=== PATIENT | male | born 1950 | race Caucasian/White ===

== ENCOUNTER 2017-10-19 13:23 | Emergency (ER) | payer OTHER, SELFPAY ==
[2017-10-19 13:24] VITALS: BP 135/58; PULSE 69; RESP 16; TEMP 37.1; O2SAT 96; BMI 29.3
--- NOTE | 2017-10-19 14:52 | RAD_ITS ---
STUDY: X-RAY RIGHT FOOT, GREAT TOE REASON FOR EXAM: Male, 67 years old. Pain and swelling following injury. TECHNIQUE: 3 view(s) of the toe were obtained. COMPARISON: None. FINDINGS: Normal visualized metatarsus. Normal metatarsophalangeal (M.T.P) joint. There is arthrosis of the interphalangeal joint. Normal phalanges and interphalangeal joints. There is diffuse soft tissue swelling of the toe. RAD/Toe(s) Min 2 Views IMPRESSION: Soft tissue swelling. Degenerative changes. Electronically Signed: Bharath Steen MD at 15:13 EDT Tel [phone], Service support ,
--- NOTE | 2017-10-19 15:20 | ED.VISSUMM ---
- ER Visit Summary Date of Service: 10/19/17 Chief Complaint: Toe pain History of Present Illness: The patient is a 67 M presents after a fall with the right great toe injury. No other injury. Physical Examination: She is he has a right toe contusion with full range of motion and neurovascularly intact Test Results: X-rays negative for fracture Emergency Department Course and Treatment: We will discharge in stable condition with reassurance Impression: toe contusion This note was generated with [employer] dictation software. It may contain incorrect words, spelling, and punctuation that were not noted in review of the chart prior to signing ED Disposition - Plan for ED Patient: Chief Complaint: Fall Referrals: Zena Barr MD [Primary Care Provider] -
--- NOTE | 2017-10-19 15:27 | ED.DCSUM_ITS ---
- ER Visit Summary Date of Service: 10/19/17 Chief Complaint: Toe pain History of Present Illness: The patient is a 67 M presents after a fall with the right great toe injury. No other injury. Physical Examination: She is he has a right toe contusion with full range of motion and neurovascularly intact Test Results: X-rays negative for fracture Emergency Department Course and Treatment: We will discharge in stable condition with reassurance Impression: toe contusion This note was generated with [employer] dictation software. It may contain incorrect words, spelling, and punctuation that were not noted in review of the chart prior to signing ED Disposition - Plan for ED Patient: Chief Complaint: Fall Referrals: eZna Barr MD [Primary Care Provider] -
--- NOTE | 2017-10-19 15:28 | ED.DEP ---
ED Disposition - Plan for ED Patient: Disposition: Home or Assisted Living Chief Complaint: Fall Instructions: ED Mechanical Fall Referrals: Zena Barr MD [Primary Care Provider] - 3-5 Days
[2017-10-19 15:44] VITALS: BP 157/83; PULSE 63; RESP 17
== END 2017-10-19 15:44 | disposition home or self-care (01) ==
PROVIDERS: Emergency Provider Emergency Medicine; Family Provider Family Medicine; PCP Internal Medicine
DX: S90.111A Contusion of right great toe without damage to nail, initial encounter (principal); W19.XXXA Unspecified fall, initial encounter; Y93.9 Activity, unspecified; Y92.89 Other specified places as the place of occurrence of the external cause; Y99.9 Unspecified external cause status; E11.9 Type 2 diabetes mellitus without complications
CPT/HCPCS: 73660; 99283

== ENCOUNTER 2018-03-13 19:09 | Emergency (ER) | payer OTHER, SELFPAY ==
[2018-03-13 19:11] VITALS: BP 195/75; PULSE 92; RESP 16; TEMP 36.5; O2SAT 94; BMI 28.7
--- NOTE | 2018-03-13 19:26 | RAD_ITS ---
STUDY: X-RAY - LEFT SHOULDER REASON FOR EXAM: Male, 68 years old. PATIENT WAS STANDING ON A RECLINER AND IT RECLINED AND HE FELL OFF ONTO HIS LEFT SHOULDER. PAIN IN LEFT SHOULDER RADIATING DOWN INTO LEFT HUMERUS. TECHNIQUE: 3 view(s) of the shoulder. COMPARISON: None. FINDINGS: There is minor degenerative arthrosis of the glenohumeral articulation. There is hypertrophic osteoarthrosis of the acromioclavicular joint with inferior osseous spur formation. Normal acromion. Normal humeral head and visualized proximal humerus. The soft tissue structures are unremarkable. Normal visualized pulmonary apex. RAD/Shoulder min 2 Views IMPRESSION: 1. No fracture or malalignment. Degenerative changes. Electronically Signed: Fili Grove MD at 20:03 EST , Service support ,
--- NOTE | 2018-03-13 19:27 | ED.VISSUMM ---
- ER Visit Summary Date of Service: 03/13/18 Chief Complaint: [] Left upper arm injury after falling History of Present Illness: The patient is a 68 M [] patient inadvertently fell when he was trying to look at something that was on the ceiling he landed on his left shoulder he has no head neck chest or abdominal pain just pain to left shoulder and left mid humerus Physical Examination: [] Vital signs are within normal range she is in no distress he points directly to the left shoulder area head neck unremarkable the chest abdomen unremarkable lungs clear heart tones normal the extremities are completely unremarkable full range of motion except for the left shoulder, he has a vague diffuse discomfort left shoulder no instability no deformity is able to move it he also complains of some vague pain to the mid left humerus, he has no elbow forearm left wrist or left hand pain, left hand function is completely normal his neurologic exam is normal the rest of his exam is normal his back is unremarkable Test Results: [] Emergency Department Course and Treatment: [] X-rays are obtained that are unremarkable per radiology, discussed the patient is fitted with a sling ice elevation he will follow with his orthopedic surgeon has we discussed the concept of occult injury such as rotator cuff and return for change in symptoms he does not wish to have anything for pain while he is in the ED Treatment Plan: [] Disposition: [] Home stable Impression: [] Left shoulder injury after fall This note was generated with [employer] dictation software. It may contain incorrect words, spelling, and punctuation that were not noted in review of the chart prior to signing ED Disposition - Plan for ED Patient: Chief Complaint: Upper Extremity Injury Referrals: Zena Barr MD [Primary Care Provider] -
--- NOTE | 2018-03-13 19:40 | RAD_ITS ---
STUDY: X-RAY - LEFT HUMERUS REASON FOR EXAM: Male, 68 years old. PATIENT WAS STANDING ON A RECLINER AND IT RECLINED AND HE FELL OFF ONTO HIS LEFT SHOULDER. PAIN IN LEFT SHOULDER RADIATING DOWN INTO LEFT HUMERUS. TECHNIQUE: 3 view(s) of the humerus. COMPARISON: None. FINDINGS: Normal visualized humerus. There is no demonstrated fracture or osseous destructive process. Ossified density along the lateral margin of the humeral condyle is compatible with old avulsion injury. There is no demonstrated soft tissue abnormality. RAD/Humerus min 2 Views IMPRESSION: Electronically Signed: Fili Grove MD at 20:04 EST , Service support ,
--- NOTE | 2018-03-13 20:15 | ED.DEP ---
ED Disposition - Plan for ED Patient: Chief Complaint: Upper Extremity Injury Instructions: ED Torn Rotator Cuff Referrals: Zena Barr MD [Primary Care Provider] -
[2018-03-13 20:33] VITALS: PULSE 88; RESP 15; O2SAT 93
== END 2018-03-13 20:36 | disposition home or self-care (01) ==
PROVIDERS: Emergency Provider Emergency Medicine; Family Provider Internal Medicine; PCP Internal Medicine
DX: S49.92XA Unspecified injury of left shoulder and upper arm, initial encounter (principal); W19.XXXA Unspecified fall, initial encounter; Y93.9 Activity, unspecified; Y92.9 Unspecified place or not applicable; Y99.9 Unspecified external cause status; I10 Essential (primary) hypertension
CPT/HCPCS: 73030; 73060; 99282

== ENCOUNTER → 2018-08-30 15:59 | Outpatient (CLI) | payer OTHER, SELFPAY ==
[2018-08-30 17:20] LABS: PSA,Total - Annual Screen 5.42 ng/mL (0.00-4.00)
== END ==
PROVIDERS: Family Provider Internal Medicine; PCP Internal Medicine; Referring Provider Nurse Practitioner Adult Health; Visit Provider Nurse Practitioner Adult Health
DX: N40.2 Nodular prostate without lower urinary tract symptoms (principal)
CPT/HCPCS: 36415; 84153; G0103

== ENCOUNTER → 2018-10-11 15:57 | Outpatient (CLI) | payer OTHER, SELFPAY ==
--- NOTE | 2018-10-11 | IMM_PTH ---
PATIENT: SINDY GREENFIELD LOC: [facility] U#:[id number] AGE/SX: 74/M ROOM: RE10/11/[address]: Dr. Heladio Archibald MD : 1950 BED: DIS: SPEC #: [id number] RECD: 10/13/18 11:24 STATUS: TAMI REEddie #: [id number] BEAU: 10/11/18 00:[address]: Heladio Archibald DEPT: IMMUNOHISTOCHEMISTRY RECD BY: Rosalba Solano ENTERED: 10/13/18 11:25 SP TYPE: IMMUNO OTHR DR: Dr. Zena Barr MD Tissues: B - PROSTATE RIGHT C - PROSTATE RIGHT D - PROSTATE LEFT Procedures: 34BE12 (add) P40 (add) 34BE12 (initial) PHYSICIAN & INSTITUTION [place] [id number] SPECIMEN INFORMATION: Tissue Source: B - Right mid, C - Right base, D - Left apex Clinical Info: Elevated PSA Specimen Number: [id number] B, C & D CPT code: 17210, 63719 x5 METHODOLOGY: Deparaffinized sections of prefer/formalin-fixed tissue or PAP/DQ stained slides are incubated with monoclonal/polyclonal antibodies/oligonucleotide probes. Localization is made via biotin free immunoperoxidase method. Appropriate controls are performed and reacted as expected. Results on target cell population are indicated in the following table: RESULTS: ANTIBODY / CLONE RESULT Block B P40 (BC28) negative 34BE12 (34BE12) negative Block C P40 (BC28) positive 34BE12 (34BE12) positive Block D P40 (BC28) positive 34BE12 (34BE12) positive These tests were developed and their performance characteristics determined by [facility]. They may not have been cleared or approved by the U.S. Food and Drug Administration. The FDA has determined that such clearance or approval is not necessary. INTERPRETATION: B. Right prostate, mid, core biopsy: Adenocarcinoma. C. Right prostate, base, core biopsy: Focal high-grade prostatic intraepithelial neoplasia (HGPIN). D. Left prostate, apex, core biopsy: Negative for adenocarcinoma. SJ:frederick 10/14/18
--- NOTE | 2018-10-11 08:00 | PROSBIL_PTH ---
PATIENT: SINDY GREENFIELD LOC: [facility] U#:[id number] AGE/SX: 74/M ROOM: RE10/11/[address]: Dr. Heladio Archibald MD : 1950 BED: DIS: SPEC #: [id number] RECD: 10/11/18 15:27 STATUS: TAMI OLI #: [id number] BEAU: 10/11/18 08:[address]: Heladio Archibald DEPT: SURGICAL PATHOLOGY RECD BY: Ben Colunga ENTERED: 10/12/18 14:31 SP TYPE: PROST BX VIOLETTE DR: Dr. Zena Barr MD Tissues: A - PROSTATE RIGHT B - PROSTATE RIGHT C - PROSTATE RIGHT D - PROSTATE LEFT E - PROSTATE LEFT F - PROSTATE LEFT Procedures: PROSTATE BX HEADER OPERATION: Prostate biopsy PRE-OP DIAGNOSIS: Elevated PSA TISSUE SUBMITTED: A - Right apex, B - Right mid, C - Right base, D - Left apex, E - Left mid, F - Left base MICROSCOPIC DIAGNOSIS A. Right prostate, apex, core biopsy: Prostatic tissue, negative for malignancy. Chronic inflammation. B. Right prostate, mid, core biopsy: Prostatic adenocarcinoma: Erica grade: 3+4=7 Number of cores involved: 1/2 Proportion of tissue involved: ~15% Perineural invasion: Not identified. Greatest tumor length: 0.4 cm Focal high-grade prostatic intraepithelial neoplasia (HGPIN). See comment. C. Right prostate, base, core biopsy: Focal high-grade prostatic intraepithelial neoplasia (HGPIN). Chronic inflammation. See comment. D. Left prostate, apex, core biopsy: Prostatic tissue, negative for malignancy. Chronic inflammation. See comment. E. Left prostate, mid, core biopsy: Focal high-grade prostatic intraepithelial neoplasia (HGPIN). Chronic inflammation. F. Left prostate, base, core biopsy: Focal high-grade prostatic intraepithelial neoplasia (HGPIN). Focal acute and chronic inflammation. SJ:frederick 10/13/18 COMMENT B, C & D - Immunohistochemistry ([id number]) supports the above diagnosis. Case has been reviewed in consultation with Dr. Liz who concurs with the above diagnosis. IDC:AM MICROSCOPIC DESCRIPTION Slides are reviewed. GROSS DESCRIPTION A - Received is one container designated prostate, right apex. The specimen consists of two elongated fragments of light puga-white soft tissue each measuring 1.5 cm in length and 0.1 cm in diameter. The specimen is totally submitted in one cassette. B - Received is one container designated prostate, right mid. The specimen consists of two elongated fragments of light pgua-white soft tissue each measuring 1.5 cm in length and 0.1 cm in diameter. The specimen is totally submitted in one cassette. C - Received is one container designated prostate, right base. The specimen consists of two elongated fragments of light puga-white soft tissue measuring 1 and 1.5 cm in length and 0.1 cm in diameter. The specimen is totally submitted in one cassette. D - Received is one container designated prostate, left apex. The specimen consists of two elongated fragments of light puga-white soft tissue each measuring 1.4 cm in length and 0.1 cm in diameter. The specimen is totally submitted in one cassette. E - Received is one container designated prostate, left mid. The specimen consists of two elongated fragments of light puga-white soft tissue measuring 1.5 and 2 cm in length and 0.1 cm in diameter. The specimen is totally submitted in one cassette. F - Received is one container designated prostate, left base. The specimen consists of two elongated fragments of light puga-white soft tissue each measuring 1.5 cm in length and 0.1 cm in diameter. The specimen is totally submitted in one cassette. / SJ:rg 10/12/18 TC:[address] [facility]: [id number]
== END ==
PROVIDERS: Family Provider Internal Medicine; PCP Internal Medicine; Referring Provider Urology; Visit Provider Urology
DX: R97.20 Elevated prostate specific antigen [PSA] (principal)
CPT/HCPCS: 88305; 88341; 88342; G0416

== ENCOUNTER 2018-11-30 05:50 | Day surgery (SDC) | payer OTHER, SELFPAY ==
[2018-11-22 11:21] VITALS: BP 145/62; PULSE 75; RESP 16; TEMP 36.1; O2SAT 96; BMI 29.0
--- NOTE | 2018-11-22 11:25 | SDCEKG_ITS ---
Test Reason : Blood Pressure : / mmHG Vent. Rate : 067 BPM Atrial Rate : 067 BPM P-R Int : 208 ms QRS Dur : 098 ms QT Int : 370 ms P-R-T Axes : 053 033 039 degrees QTc Int : 390 ms Normal sinus rhythm Normal ECG Confirmed by LINDA SOLER, SHABANA ([id number]), social media editor MARISOL SOTOMAYOR ([id number]) on 11/28/2018 11:48:05 AM Referred By: Heladio Archibald Confirmed By:SHABANA MCKEON MD
--- NOTE | 2018-11-22 11:40 | RAD_ITS ---
STUDY: X-RAY CHEST REASON FOR EXAM: Male, 68 years old. Preoperative evaluation for prostatectomy. TECHNIQUE: Frontal and lateral views of the chest. COMPARISON: None. FINDINGS: Mild hyperexpansion. There is no demonstrated pleural abnormality. Borderline cardiomegaly. Normal mediastinum and joseph. Normal visualized pulmonary arteries. Normal visualized aortic arch and descending thoracic aorta. Thoracolumbar spondylosis. Normal visualized ribs, clavicles, and shoulders. There is no demonstrated abnormality of the visualized soft tissue structures of the upper abdomen. RAD/Chest PA and Lateral IMPRESSION: No active or acute cardiopulmonary disease. Electronically Signed: Jorge Cantu MD at 12:20 EDT , Service support ,
[2018-11-22 12:02] LABS: Hematocrit 40.1 % (40-54); Hemoglobin 13.5 g/dL (13.0-16.5); Mean Corp Hgb Conc 33.7 g/dL (32-36); Mean Corpuscular Hgb 29.9 pg (27.0-32.0); Mean Corpuscular Volume 88.9 fL (80-94); Mean Platelet Vol. 10.6 fl (6.2-12.0); Platelet Count 225 K/mm3 (150-450); RBC Distribution Width CV 13.2 % (11.6-14.6); RBC Distribution Width SD 42.6 fl (35.1-43.9); Red Blood Count 4.51 M/mm3 (4.6-6.2)
[2018-11-22 12:23] LABS: Anion Gap 6 (5-15); BUN 31 mg/dL (7-18); BUN/Creat Ratio 21.4 RATIO (10-20); Calcium,Total 9.4 mg/dL (8.5-10.1); Chloride 108 mmol/L (98-107); Creatinine, Serum 1.45 mg/dL (0.70-1.30); EST Glomerular Filtration Rate 51 mL/min (>60); Est Glom Filt Rate - Afr Amer 62 mL/min (>60); Estimated Creatinine Clearance 48.08 ml/min; Glucose 189 mg/dL (74-106); Hemoglobin A1c 8.3 % (4.2-6.3); Potassium 4.4 mmol/L (3.5-5.1); Sodium Level 141 mmol/L (136-145); Thyroid Stim Hormone (TSH) 3.38 uIU/mL (0.358-3.74)
[2018-11-30] VITALS (12 sets, daily range): BP systolic 124–173; BP diastolic 64–86; PULSE 61–95; RESP 16–18; TEMP 36.1–37.1; O2SAT 94–98; BMI 27.5
[2018-11-30] MEDS: Lactated Ringers 1,000 ML 100 ML IV ×2 (06:38→06:40)
[2018-11-30 06:51] LABS: Bedside Glucose 185 mg/dL (70-110)
[2018-11-30] MEDS: Bupivacaine Mpf 0.5% 30 ML VIAL ×2 (07:08→10:30)
[2018-11-30] MEDS: Cefazolin 2 GM in 0.9% Normal Saline 100 ML IV (07:25)
--- NOTE | 2018-11-30 07:30 | PROST_PTH ---
PATIENT: SINDY GREENFIELD LOC: [facility] [place] U#:[id number] AGE/SX: 68/M ROOM: RE11/30/[address]: Dr. Heladio Archibald MD : 1950 BED: DIS: 12/01/2018 SPEC #: [id number] RECD: 11/30/18 11:26 STATUS: TAMI REQ #: [id number] BEAU: 11/30/18 07:[address]: Heladio Archibald DEPT: SURGICAL PATHOLOGY RECD BY: Angelica Gonzalez ENTERED: 11/30/18 14:04 SP TYPE: PROSTATE OTHR DR: Dr. Zena Barr MD Tissues: A - Prostate, NOS B - Adipose tissue Procedures: Surgery Specimen Level III Surgery Specimen Level HEADER OPERATION: Laparoscopic robotic radical prostatectomy PRE-OP DIAGNOSIS: Malignant neoplasm of the prostate, elevated prostate specific antigen TISSUE SUBMITTED: A. Prostate, B. Fat over prostate MICROSCOPIC DIAGNOSIS Prostate, radical prostatectomy: Prostatic adenocarcinoma. See cancer summary below. PROSTATE CANCER (RADICAL) SUMMARY: Procedure - radical prostatectomy Prostate size - 5 cm transversely, 4 cm craniocaudally and 3.3 cm anteroposteriorly Prostate weight - 40 gm Lymph node sampling - no lymph nodes present Histologic type - adenocarcinoma (not otherwise specified) Histologic grade ([place] Pattern): Primary pattern - 3 Secondary pattern - 3 Tertiary pattern - not identified Total [place] score: 6 Tumor Quantitation: Proportion (%) of prostate involved by tumor - less than 5% Tumor size - Extraprostatic extension - not identified Seminal vesicle invasion - not identified Margins - uninvolved by invasive carcinoma Treatment effect on carcinoma - no known presurgical therapy Lymph-Vascular invasion - not identified Perineural invasion - present, focal Regional lymph nodes - no nodes submitted or found Distant metastasis - not applicable Additional pathologic findings - benign prostatic hyperplasia, glandular stromal type. - Focal high-grade prostatic intraepithelial neoplasia (HGPIN) - Moderate chronic inflammation. PATHOLOGIC STAGE: pT2c pNX MX The above summary is in compliance with [employer] (CAP) Cancer Protocols Checklist and [place] [employer] Committee on Cancer (AJCC), Staging Manual, 8th Ed. B. Fat-over prostate: A piece of mature adipose tissue, negative for carcinoma. SJ:bharti 12/02/18 COMMENT The tumor involves both right and left lobes of the prostate. The tumor in the right lobe present involves apical and mid portion of the prostate (present in the slides # 5, 6, 8) measures approximately 1 x 1 x 0.5 cm. Tumor in the left lobe present in the apical to mid portion of the prostate (present in the slide # 7)and approximately measures 0.5 x 0.3 x 0.3 cm. Please make reference to previous specimen [id number] right prostate, mid, core biopsy diagnosis of prostatic adenocarcinoma; right prostate base, core biopsy, left prostate, mid, core biopsy and left prostate, base, core biopsy with diagnoses of focal high-grade prostatic intraepithelial neoplasia. Case has been reviewed in consultation with Dr. Liz who concurs with the above diagnosis. IDC:AM MICROSCOPIC DESCRIPTION Slides are reviewed. GROSS DESCRIPTION A. Received in fixative is one container labeled with the patient's name and designated prostate. The specimen consists of a prostatectomy including right and left seminal vesicles and vas deferens. The specimen weighs 40 grams. The prostate gland itself measures 5 cm transversely, 4 cm craniocaudally and 3.3 cm anterior posteriorly. No gross nodules are identified on palpation. The specimen is differentially inked as follows: anterior - red, right half - blue, left half - green. The entire posterior surface is inked in black ink. The right apex. specimen consists of two elongated fragments of light puga-white soft tissue each measuring 3-5 mm intervals. Serially sections do not reveal mass lesions or rubbery nodularities. [employer] sections are submitted in 20 cassettes as follows: 1 - apex, shaved margin; 2 - bladder shaved margin (proximal ureteral margin); 3 - bilateral seminal vesicles; 4-7 - apex; 8-13 - mid portion of prostate gland; 14-20 - basal portion of gland with #20 representing the most basal portion of the gland. /AM:sp 12/01/18 B. Received in fixative is one container labeled with the patient's name and designated fat over prostate. The specimen consists of a piece of yellow adipose tissue measuring 4 x 3 x 0.5 cm. No mass lesion was identified. The entire specimen is submitted in 2 cassettes. The specimen will be submitted after overnight fixation. SJ:bharti 11/30/18 TC: 0 CPT: 36177, 25749
--- NOTE | 2018-11-30 07:43 | PCM.DC.URO ---
Discharge Diet: Light diet - advance as tolerated Discharge Activity: May not drive while taking narcotic pain medications., May Shower Lifting Restrictions: No Lifting. Call your doctor if your incision/area has: Continuous Slow Oozing, Sudden Increased Bleeding, Increased Pain/ Swelling, Increased Redness, Foul Smelling Discharge, Swelling at the incision site Call your doctor if you observe: Fever of 101 or Higher, Inability to have a bowel movement, Uncontrolled pain Suture Line Care: Avoid Pulling/Pushing, Avoid Pinching/Bending Instructions: Radical Prostatectomy Allergies/Adverse Reactions: Allergies Oyojisp-Ijw-Elb Reductase Inhibitor Adverse Reaction (Verified 11/30/18 06:17) Abd cramps/diarrhea Medications to take at Discharge Levothyroxine [Synthroid] 100 mcg PO DAILY 01/08/13 Multivit-Min/FA/Lycopene/Lut [Centrum Silver Tablet] 1 each PO DAILY 01/08/13 metFORMIN (XR) [Glucophage Xr] 1,000 mg PO DAILY 01/08/13 Vits A,C,E/Lutein/Minerals [Ocuvite with Lutein Tablet] 1 each PO DAILY 03/08/14 Bisoprolol/Hydrochlorothiazide [Bisoprolol-Hctz 2.5-6.25 mg Tb] 1 each PO DAILY 05/24/15 [place]-3/Dha/Epa/Fish Oil [Fish Oil Dr 500 mg Softgel] 1,000 mg PO DAILY 05/24/15 Potassium Citrate [Urocit-K] 10 meq PO DAILY 05/24/15 Aspirin [Lo-Dose Aspirin EC] 81 mg PO DAILY 10/19/17 Fenofibrate Nanocrystallized [Fenofibrate] 145 mg PO DAILY 10/19/17 Ciprofloxacin [Cipro] 500 mg PO BID #20 tab 11/30/18 Docusate Sodium [Colace] 100 mg PO BID #20 cap 11/30/18 Hydrocodone/Acetaminophen [[place] 5-325 Tablet] 1 ea PO Q4H PRN PRN 5 Days #14 tab 11/30/18 The following prescriptions were given: Ciprofloxacin [Cipro] 500 mg PO BID #20 tab Prescription Printed Docusate Sodium [Colace] 100 mg PO BID #20 cap Prescription Printed Hydrocodone/Acetaminophen [[place] 5-325 Tablet] 1 ea PO Q4H PRN PRN 5 Days #14 tab PRN Reason: Pain Prescription Printed Primary Care Physician: Zena Barr MD [Primary Care Provider] - Test Results: Test results from this visit will be discussed in further detail at your follow-up appointment, if applicable. Please Follow Up With: Heladio Archibald MD When: please call to make an appointment. Proposed Discharge Date: 12/01/18
--- NOTE | 2018-11-30 10:50 | PCM.OPRPT ---
Report of Operation Date of Procedure: 11/30/18 Pre-Operative Diagnosis: Prostate cancer Post-Operative Diagnosis: The same Surgery/Procedure Performed:: Laparoscopic robotic assisted radical prostatectomy with bilateral nerve sparing, suture suspension of the urethra. Description of Surgical Findings:: 68-year-old male with prostate cancer was elected to undergo radical prostatectomy for curative intent we talked about the risk of surgery including bleeding, infection, incontinence, erectile dysfunction, permanent or temporary. Risk of anesthesia. 68-year-old male taken back to the operating room at the smooth induction of general anesthesia he was placed supine on the table the abdomen she prepped and draped in usual sterile fashion was placed in dorsolithotomy position with legs in stirrups we then made a small incision in the umbilicus advanced the needle into the peritoneal cavity and inflated the peritoneal cavity CO2 gas, placed our robotic trocar and all her other trochars in the belly we docked the robot I then started dissection posterior to the prostate and bladder opened up the peritoneum over the vas deferens seminal vesicle dissected out the vas deferens seminal vesicle completely I then went up and drop the bladder and then he had a very sort of fatty pelvic tissue a lot of overhanging tissue made it somewhat difficult and then dissected out the right side of the prostate the left side of the prostate dissected the prostate off the levator muscles, transected through the dorsal vein complex, then came back to the junction between the bladder and prostate dissected dissected down between the bladder and prostate separate bladder from the prostate came to the urethra and came to the catheter catheter was pulled up and dissected posteriorly then we freed up the space behind the prostate off tenotomies fascia. Took the pedicles in the right side and identified the neurovascular bundle free the neurovascular bundle off the right side of the prostate all the way to the apex pedicles in the left side identified the left neurovascular bundle free the neurovascular bundle off the prostate all the way up the left side and then transected the dorsal dorsal vein complex with an extra stitch in the dorsal vein complex to control bleeding and transected to the urethra I then did a catheter and suture suspension of the urethra with a 3-year-old V lock stitch from the bladder neck up to the urethra after this was completed then we completed the anastomosis catheter was put into the bladder bladder was flushed we then extracted the prostate through the umbilicus and we closed the air seal port with a 1012 Galindo Leblanc stitch patient anesthetic was reversed and he was taken back to PACU in good condition all the needles and sponges were accounted for a very nice case, very good nerve sparing, anastomosis was perfect, I will see him next week to remove catheter. Type of Anesthesia:: General Drains: quiñones Estimated Blood Loss (mL): 150cc - Admit VTE Documentation VTE Present on Admission: No VTE Mechan Device Prophylaxis: SCD's
[2018-11-30 12:06] LABS: Bedside Glucose 212 mg/dL (70-110)
[2018-11-30] MEDS: 0.45% Normal Saline 1,000 ML 75 ML IV (12:51)
[2018-11-30] MEDS: Ciprofloxacin 500 MG Tablet PO ×2 (13:09→20:58)
[2018-11-30] MEDS: Multivitamin (Healthy Eyes) Capsule 1 CAP PO (13:09)
[2018-11-30] MEDS: Fenofibrate 145 MG Tablet PO (13:09)
[2018-11-30] MEDS: Docusate Sodium 100 MG Capsule PO ×2 (13:10→20:58)
[2018-11-30] MEDS: Ketorolac 15 MG/ML Vial IV ×3 (13:10→23:37)
[2018-11-30] MEDS: Multivitamins,Ther W-Minerals Tablet 1 TABLET PO (13:10)
[2018-11-30] MEDS: Bisoprolol Fumarate 5 MG Tablet 2.5 MG PO (14:57)
[2018-11-30] MEDS: hydroCHLOROthiazide 6.25mg TAB 6.25 MG PO (14:57)
[2018-11-30] MEDS: metFORMIN (XR) 500 MG Tablet 1000 MG PO (16:56)
[2018-12-01] MEDS: 0.45% Normal Saline 1,000 ML 75 ML IV (02:11)
[2018-12-01 02:16] VITALS: BP 114/55; PULSE 84; RESP 16; TEMP 36.6; O2SAT 97
[2018-12-01] MEDS: Enoxaparin 40 MG/0.4 ML Syringe SC (05:34)
[2018-12-01] MEDS: Ketorolac 15 MG/ML Vial IV ×2 (05:34→12:30)
[2018-12-01] MEDS: Levothyroxine 100 MCG Tablet PO (05:34)
[2018-12-01 07:36] VITALS: BP 124/60; PULSE 74; RESP 18; TEMP 36.6; O2SAT 97
[2018-12-01] MEDS: Multivitamin (Healthy Eyes) Capsule 1 CAP PO (07:42)
[2018-12-01] MEDS: hydroCHLOROthiazide 6.25mg TAB 6.25 MG PO (07:42)
[2018-12-01] MEDS: Fenofibrate 145 MG Tablet PO (07:42)
[2018-12-01] MEDS: Ciprofloxacin 500 MG Tablet PO (07:42)
[2018-12-01] MEDS: Bisoprolol Fumarate 5 MG Tablet 2.5 MG PO (07:42)
[2018-12-01] MEDS: Multivitamins,Ther W-Minerals Tablet 1 TABLET PO (07:42)
[2018-12-01 07:49] VITALS: O2SAT 92
[2018-12-01] MEDS: 0.9% NaCl Peripheral Flush Adult/Peds IV (12:30)
== END 2018-12-01 12:45 | disposition home or self-care (01) ==
LOC: SDC 05:52 → AC 05:54 → MS3 06:06
PROVIDERS: Anesthesiology; Family Provider Internal Medicine; PCP Internal Medicine; Referring Provider Urology; Visit Provider Urology
PROC: 0VT04ZZ Resection of Prostate, Percutaneous Endoscopic Approach (ICD-10-PCS; CPT 55866; principal; 2018-11-30 07:10)
DX: C61 Malignant neoplasm of prostate (principal); N42.31 Prostatic intraepithelial neoplasia; R97.20 Elevated prostate specific antigen [PSA]; G47.30 Sleep apnea, unspecified; E11.9 Type 2 diabetes mellitus without complications; E78.00 Pure hypercholesterolemia, unspecified; I10 Essential (primary) hypertension; Z87.442 Personal history of urinary calculi
CPT/HCPCS: 00860; 51840; 55866; 71046; 80048; 82962; 83036; 84443; 85027; 86850; 86900; 86901; 86920; 86922; 88304; 88309; 93005; 94762; J7120; A4216; J2405

== ENCOUNTER → 2019-03-21 15:33 | Outpatient (CLI) | payer OTHER, SELFPAY ==
[2018-11-30 12:52] VITALS: BMI 27.5
[2019-03-21 17:39] LABS: PSA,Total- Diagnostic < 0.01 ng/mL (0.0-4.0)
== END ==
PROVIDERS: Family Provider Internal Medicine; PCP Internal Medicine; Referring Provider Urology; Visit Provider Urology
DX: C61 Malignant neoplasm of prostate (principal)
CPT/HCPCS: 36415; 84153

== ENCOUNTER → 2019-06-20 15:54 | Outpatient (CLI) | payer OTHER, SELFPAY ==
[2018-11-30 12:52] VITALS: BMI 27.5
[2019-06-20 18:58] LABS: PSA,Total- Diagnostic 0.01 ng/mL (0.0-4.0)
== END ==
PROVIDERS: PCP Family Medicine; Referring Provider Urology; Visit Provider Urology
DX: C61 Malignant neoplasm of prostate (principal)
CPT/HCPCS: 36415; 84153

== ENCOUNTER → 2021-10-18 | Outpatient (CLI) | payer MEDICARE, OTHER, SELFPAY ==
[2021-10-18 09:28] LABS: Microalbumin,Random Urine 53.9 mg/L (NO RANGE EST.); Microalbumin:Creatinine Ratio 70.2 mg/g CRE (<30 mg/g CRE)
[2021-10-18 09:32] LABS: ALB/GLOB Ratio 1.1 RATIO (0.9-2.4); AST(SGOT) 12 U/L (15-37); Alanine Aminotransfer ALT/SGPT 23 U/L (16-61); Albumin, Serum 3.8 g/dL (3.2-5.0); Alkaline Phosphatase 48 U/L (45-117); Anion Gap 7 (5-15); BUN 37 mg/dL (7-18); BUN/Creat Ratio 24.7 RATIO (10-20); CPK Total, Creatine Kinase 76 U/L (39-308); Calcium,Total 9.3 mg/dL (8.5-10.1); Chloride 110 mmol/L (98-107); Cholesterol 184 mg/dL (200); EST Glomerular Filtration Rate 49 mL/min (>60); Est Glom Filt Rate - Afr Amer 59 mL/min (>60); Globulin 3.4 g/dL (2.2-4.2); Glucose 138 mg/dL (74-106); High Density Lipoprotein 22 mg/dL; Potassium 4.2 mmol/L (3.5-5.1); Protein, Total 7.2 g/dL (6.4-8.2); Sodium Level 141 mmol/L (136-145); Thyroid Stim Hormone (TSH) 1.92 uIU/mL (0.358-3.74); Triglycerides 479 mg/dL
== END | disposition home or self-care (01) ==
LOC: LAB 07:48
PROVIDERS: PCP Family Medicine; Referring Provider Internal Medicine Endocrinology, Diabetes & Metabolism; Visit Provider Internal Medicine Endocrinology, Diabetes & Metabolism
DX: E11.9 Type 2 diabetes mellitus without complications (principal); E78.2 Mixed hyperlipidemia; E03.8 Other specified hypothyroidism; N20.0 Calculus of kidney
CPT/HCPCS: 36415; 80053; 80061; 82043; 82550; 82570; 84443

== ENCOUNTER → 2021-10-20 | Outpatient (CLI) | payer MEDICARE, OTHER, SELFPAY ==
[2021-10-20 15:57] LABS: Anion Gap 9 (5-15); BUN 32 mg/dL (7-18); BUN/Creat Ratio 23.5 RATIO (10-20); CPK Total, Creatine Kinase 91 U/L (39-308); Calcium,Total 9.4 mg/dL (8.5-10.1); Chloride 106 mmol/L (98-107); Creatinine, Serum 1.36 mg/dL (0.70-1.30); EST Glomerular Filtration Rate 55 mL/min (>60); Est Glom Filt Rate - Afr Amer 66 mL/min (>60); Glucose 134 mg/dL (74-106); Potassium 3.8 mmol/L (3.5-5.1); Sodium Level 141 mmol/L (136-145)
== END | disposition home or self-care (01) ==
PROVIDERS: PCP Family Medicine; Referring Provider Internal Medicine Endocrinology, Diabetes & Metabolism; Visit Provider Internal Medicine Endocrinology, Diabetes & Metabolism
DX: E11.9 Type 2 diabetes mellitus without complications (principal)
CPT/HCPCS: 36415; 80048; 82550

== ENCOUNTER → 2021-10-30 | Outpatient (CLI) | payer MEDICARE, OTHER, SELFPAY ==
[2021-10-30 09:09] LABS: Anion Gap 7 (5-15); BUN 31 mg/dL (7-18); BUN/Creat Ratio 21.8 RATIO (10-20); Chloride 108 mmol/L (98-107); Creatinine, Serum 1.42 mg/dL (0.70-1.30); EST Glomerular Filtration Rate 52 mL/min (>60); Est Glom Filt Rate - Afr Amer 63 mL/min (>60); Glucose 223 mg/dL (74-106); Potassium 4.3 mmol/L (3.5-5.1); Sodium Level 140 mmol/L (136-145)
== END | disposition home or self-care (01) ==
LOC: LAB 07:36
PROVIDERS: PCP Family Medicine; Referring Provider Nurse Practitioner Adult Health; Visit Provider Nurse Practitioner Adult Health
DX: E11.21 Type 2 diabetes mellitus with diabetic nephropathy (principal)
CPT/HCPCS: 36415; 80048

== ENCOUNTER → 2021-11-14 | Outpatient (CLI) | payer MEDICARE, OTHER, SELFPAY ==
[2021-11-14 10:34] LABS: Anion Gap 6 (5-15); BUN 34 mg/dL (7-18); BUN/Creat Ratio 22.2 RATIO (10-20); Calcium,Total 9.1 mg/dL (8.5-10.1); Chloride 107 mmol/L (98-107); Creatinine, Serum 1.53 mg/dL (0.70-1.30); EST Glomerular Filtration Rate 48 mL/min (>60); Est Glom Filt Rate - Afr Amer 58 mL/min (>60); Glucose 254 mg/dL (74-106); Potassium 4.2 mmol/L (3.5-5.1); Sodium Level 138 mmol/L (136-145)
== END | disposition home or self-care (01) ==
LOC: MFPLAB 08:05
PROVIDERS: PCP Family Medicine; Referring Provider Family Medicine; Visit Provider Nurse Practitioner Adult Health
DX: E11.21 Type 2 diabetes mellitus with diabetic nephropathy (principal)
CPT/HCPCS: 36415; 80048

== ENCOUNTER → 2021-12-16 | Outpatient (CLI) | payer MEDICARE, OTHER, SELFPAY ==
[2021-12-16 10:08] LABS: PSA,Total- Diagnostic < 0.01 ng/mL (0.0-4.0)
[2021-12-16 10:14] LABS: AST(SGOT) 15 U/L (15-37); Alanine Aminotransfer ALT/SGPT 27 U/L (16-61); Albumin, Serum 3.9 g/dL (3.2-5.0); Alkaline Phosphatase 54 U/L (45-117); Anion Gap 8 (5-15); BUN 34 mg/dL (7-18); BUN/Creat Ratio 23.4 RATIO (10-20); Calcium,Total 9.3 mg/dL (8.5-10.1); Chloride 106 mmol/L (98-107); Cholesterol 186 mg/dL (200); Creatinine, Serum 1.45 mg/dL (0.70-1.30); EST Glomerular Filtration Rate 51 mL/min (>60); Est Glom Filt Rate - Afr Amer 61 mL/min (>60); Globulin 3.8 g/dL (2.2-4.2); Glucose 132 mg/dL (74-106); Hemoglobin A1c 6.4 % (3.8-5.6); High Density Lipoprotein 29 mg/dL; Potassium 4.2 mmol/L (3.5-5.1); Protein, Total 7.7 g/dL (6.4-8.2); Sodium Level 138 mmol/L (136-145); Triglycerides 280 mg/dL; Very Low Density Lipoprotein 56 mg/dL (5-40)
[2021-12-16 10:19] LABS: Microalbumin:Creatinine Ratio 139.5 mg/g CRE (<30 mg/g CRE)
== END | disposition home or self-care (01) ==
LOC: MTLAB 07:05
PROVIDERS: Urology; PCP Family Medicine; Referring Provider Internal Medicine Endocrinology, Diabetes & Metabolism; Visit Provider Internal Medicine Endocrinology, Diabetes & Metabolism
DX: E11.9 Type 2 diabetes mellitus without complications (principal); C61 Malignant neoplasm of prostate; E78.2 Mixed hyperlipidemia
CPT/HCPCS: 36415; 80053; 80061; 82043; 82570; 83036; 84153

== ENCOUNTER → 2022-03-17 | Outpatient (CLI) | payer MEDICARE, OTHER, SELFPAY ==
[2022-03-17 09:03] LABS: ALB/GLOB Ratio 1.1 RATIO (0.9-2.4); AST(SGOT) 15 U/L (15-37); Alanine Aminotransfer ALT/SGPT 27 U/L (16-61); Albumin, Serum 4.1 g/dL (3.2-5.0); Alkaline Phosphatase 55 U/L (45-117); Anion Gap 6 (5-15); BUN 22 mg/dL (7-18); BUN/Creat Ratio 17.3 RATIO (10-20); Calcium,Total 9.2 mg/dL (8.5-10.1); Chloride 108 mmol/L (98-107); Cholesterol 202 mg/dL (200); Creatinine, Serum 1.27 mg/dL (0.70-1.30); EST Glomerular Filtration Rate 59 mL/min (>60); Est Glom Filt Rate - Afr Amer 72 mL/min (>60); Globulin 3.7 g/dL (2.2-4.2); Glucose 136 mg/dL (74-106); High Density Lipoprotein 28 mg/dL; Potassium 4.2 mmol/L (3.5-5.1); Protein, Total 7.8 g/dL (6.4-8.2); Sodium Level 141 mmol/L (136-145); Triglycerides 290 mg/dL; Very Low Density Lipoprotein 58 mg/dL (5-40)
[2022-03-17 14:34] LABS: Hemoglobin A1c 6.5 % (3.8-5.6)
== END | disposition home or self-care (01) ==
LOC: LAB 08:21
PROVIDERS: PCP Family Medicine; Referring Provider Internal Medicine Endocrinology, Diabetes & Metabolism; Visit Provider Internal Medicine Endocrinology, Diabetes & Metabolism
DX: E11.21 Type 2 diabetes mellitus with diabetic nephropathy (principal); E78.2 Mixed hyperlipidemia
CPT/HCPCS: 36415; 80053; 80061; 83036

== ENCOUNTER → 2022-06-16 | Outpatient (CLI) | payer MEDICARE, OTHER, SELFPAY ==
[2022-06-16 07:51] LABS: Microalbumin:Creatinine Ratio 167.7 mg/g CRE (<30 mg/g CRE)
[2022-06-16 08:06] LABS: ALB/GLOB Ratio 1.1 RATIO (0.9-2.4); AST(SGOT) 14 U/L (15-37); Alanine Aminotransfer ALT/SGPT 27 U/L (16-61); Alkaline Phosphatase 55 U/L (45-117); Anion Gap 8 (5-15); BUN 32 mg/dL (7-18); BUN/Creat Ratio 23.7 RATIO (10-20); Calcium,Total 9.3 mg/dL (8.5-10.1); Chloride 107 mmol/L (98-107); Cholesterol 201 mg/dL (200); Creatinine, Serum 1.35 mg/dL (0.70-1.30); EST Glomerular Filtration Rate 55 mL/min (>60); Est Glom Filt Rate - Afr Amer 67 mL/min (>60); Globulin 3.6 g/dL (2.2-4.2); Glucose 114 mg/dL (74-106); High Density Lipoprotein 30 mg/dL; Potassium 3.8 mmol/L (3.5-5.1); Protein, Total 7.6 g/dL (6.4-8.2); Sodium Level 141 mmol/L (136-145); Thyroid Stim Hormone (TSH) 4.73 uIU/mL (0.358-3.74); Triglycerides 287 mg/dL; Very Low Density Lipoprotein 57 mg/dL (5-40)
[2022-06-16 08:28] LABS: Hemoglobin A1c 6.2 % (3.8-5.6)
== END | disposition home or self-care (01) ==
LOC: LAB 06:16
PROVIDERS: PCP Family Medicine; Referring Provider Internal Medicine Endocrinology, Diabetes & Metabolism; Visit Provider Internal Medicine Endocrinology, Diabetes & Metabolism
DX: E11.21 Type 2 diabetes mellitus with diabetic nephropathy (principal); E78.2 Mixed hyperlipidemia; E03.8 Other specified hypothyroidism
CPT/HCPCS: 36415; 80053; 80061; 82043; 82570; 83036; 84443

== ENCOUNTER → 2022-09-15 | Outpatient (CLI) | payer MEDICARE, OTHER, SELFPAY ==
[2022-09-15 07:45] LABS: ALB/GLOB Ratio 1.1 RATIO (0.9-2.4); AST(SGOT) 15 U/L (15-37); Alanine Aminotransfer ALT/SGPT 24 U/L (16-61); Albumin, Serum 3.9 g/dL (3.2-5.0); Alkaline Phosphatase 49 U/L (45-117); Anion Gap 6 (5-15); BUN 37 mg/dL (7-18); BUN/Creat Ratio 27.2 RATIO (10-20); CPK Total, Creatine Kinase 142 U/L (39-308); Calcium,Total 9.3 mg/dL (8.5-10.1); Chloride 110 mmol/L (98-107); Cholesterol 192 mg/dL (200); Creatinine, Serum 1.36 mg/dL (0.70-1.30); EST Glomerular Filtration Rate 55 mL/min (>60); Est Glom Filt Rate - Afr Amer 66 mL/min (>60); Globulin 3.4 g/dL (2.2-4.2); Glucose 112 mg/dL (74-106); High Density Lipoprotein 27 mg/dL; Protein, Total 7.3 g/dL (6.4-8.2); Sodium Level 141 mmol/L (136-145); Thyroid Stim Hormone (TSH) 3.42 uIU/mL (0.358-3.74); Triglycerides 253 mg/dL; Very Low Density Lipoprotein 51 mg/dL (5-40)
[2022-09-15 12:22] LABS: Hemoglobin A1c 6.4 % (3.8-5.6)
== END | disposition home or self-care (01) ==
LOC: LAB 06:37
PROVIDERS: PCP Family Medicine; Referring Provider Internal Medicine Endocrinology, Diabetes & Metabolism; Visit Provider Internal Medicine Endocrinology, Diabetes & Metabolism
DX: E11.21 Type 2 diabetes mellitus with diabetic nephropathy (principal); E78.2 Mixed hyperlipidemia; E03.8 Other specified hypothyroidism
CPT/HCPCS: 36415; 80053; 80061; 82043; 82550; 83036; 84443

== ENCOUNTER 2022-11-30 19:10 | Emergency (ER) | payer MEDICARE, OTHER, SELFPAY ==
[2022-11-30 19:11] VITALS: BP 169/92; PULSE 80; RESP 18; TEMP 36.7; O2SAT 98; BMI 27.3
--- NOTE | 2022-11-30 19:14 | EKG12_ITS ---
Test Reason : CP Blood Pressure : / mmHG Vent. Rate : 075 BPM Atrial Rate : 075 BPM P-R Int : 202 ms QRS Dur : 092 ms QT Int : 338 ms P-R-T Axes : 051 016 021 degrees QTc Int : 377 ms Normal sinus rhythm Normal ECG Confirmed by MARTINA DEL CASTILLO ([id number]), fashion editor AIDEN LORENZO ([id number]) on 12/11/2022 2:10:15 PM Referred By: Confirmed By:MARTINA DEL CASTILLO
--- NOTE | 2022-11-30 19:20 | RAD_ITS ---
EXAM: XR CHEST, 1 VIEW CLINICAL INDICATION: chest pain TECHNIQUE: Frontal view of the chest. COMPARISON: 11/22/2018 FINDINGS: LUNGS AND PLEURAL SPACES: Unremarkable. No consolidation or edema. No pneumothorax. No effusion. HEART: Unremarkable. Cardiac silhouette not enlarged. MEDIASTINUM: Central airways and mediastinal contour are unremarkable. BONES/JOINTS: Unremarkable. SOFT TISSUES: Unremarkable. RAD/Chest 1 View (Portable) IMPRESSION: No radiographic evidence of acute cardiopulmonary disease. Electronically Signed: Sudarshan Chan MD at 19:51 EDT ,
[2022-11-30 20:02] LABS: Absolute Lymphocyte Count 1.53 X10^3/uL (0.83-4.51); Absolute Neutrophil Count 5.2 X10^3/uL (2.0-7.7); Basophil# 0.07 X10^3/uL; Basophil% 0.9 % (0-1); Eosinophils% 6.2 % (0-5); Hematocrit 36.6 % (40-54); Hemoglobin 12.1 g/dL (13.0-16.5); Lymphocyte # 1.53 X10^3/ul (0.83-4.51); Lymphocyte % 18.8 % (19-41); Mean Corp Hgb Conc 33.1 g/dL (32-36); Mean Corpuscular Hgb 29.6 pg (27.0-32.0); Mean Corpuscular Volume 89.5 fL (80-94); Mean Platelet Vol. 10.3 fl (6.2-12.0); Monocyte# 0.81 X10^3/uL; NRBC Flagged by Analyzer 0 % (0-5); Neutrophil # 5.18 X10^3/uL (2.7-7.7); Neutrophil % 63.7 % (47-70); Platelet Count 268 K/mm3 (150-450); RBC Distribution Width CV 13.4 % (11.6-14.6); RBC Distribution Width SD 44.5 fl (35.1-43.9); Red Blood Count 4.09 M/mm3 (4.6-6.2); White Blood Count 8.1 K/mm3 (4.4-11.0)
[2022-11-30 20:12] VITALS: BP 152/75; PULSE 80; RESP 18; O2SAT 97
[2022-11-30 20:21] LABS: Anion Gap 6 (5-15); BUN 25 mg/dL (7-18); BUN/Creat Ratio 14.2 RATIO (10-20); Calcium,Total 9.3 mg/dL (8.5-10.1); Chloride 107 mmol/L (98-107); Creatinine, Serum 1.76 mg/dL (0.70-1.30); EST Glomerular Filtration Rate 41 mL/min (>60); Est Glom Filt Rate - Afr Amer 49 mL/min (>60); Estimated Creatinine Clearance 37.38 ml/min; Glucose 125 mg/dL (74-106); Potassium 4.3 mmol/L (3.5-5.1); Sodium Level 139 mmol/L (136-145); Troponin-I HS (w/2H Reflex) 7 pg/mL (3.0-78.0)
--- NOTE | 2022-11-30 21:52 | ED.VIS.CHEST ---
HPI History of Present Illness Chief Complaint: Chest Pain Informant: patient and spouse/S.O. Narrative Narrative: Patient presents with pains. This patient has been retired for about 3 and half years. 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 Rather than coming back for an 8-hour position he came back for an 8-hour job 3 days in a row. He states at the end of this he was aching all over. All of his joints ached and he was just sore. He took some Tylenol for this and that has helped. He has taken it several times each day. He then noticed that he had a little bit of nasal congestion. 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 So he took some zbza-zgu-gpnvqdz decongestant. He then felt more congested so he took Benadryl which is something he has taken it on occasion. He then stated he got some epigastric pain. He points to the area kind of the lower sternum and upper epigastric area. He also did have some burning in his throat like reflux. He was not short of breath. He was just concerned with the lower chest pain, upper abdominal pain, achiness and all the symptoms of something was wrong. PFSH PFSH Home Medications levothyroxine 75 mcg tablet 100 mcg PO DAILY THYROID 01/08/13 [History Last Taken 11/30/18 04:45] metformin 500 mg tablet,extended release 24 hr 1,000 mg PO DAILY DIABETES 01/08/13 [History Last Taken Unknown] fgwtzbgg-juk-fnxfn acid 0.4 mg-lycopene 300 mcg-lutein 250 mcg tablet (Centrum Silver) 1 ea PO DAILY SUPPLEMENT' 01/08/13 [History Last Taken Unknown] vit A 300 mcg-C 200 mg-E 27 mg-lutein 2 mg and minerals tablet (Ocuvite with Lutein) 1 ea PO DAILY EYE VITAMIN 03/08/14 [History Last Taken Unknown] bisoprolol 2.5 mg-hydrochlorothiazide 6.25 mg tablet 1 ea PO DAILY BP 05/24/15 [History Last Taken 06/03/15 04:30] omega 3-dha 60 mg-epa 90 mg-fish oil 500 mg capsule, delayed release (Fish Oil) 1,000 mg PO DAILY 05/24/15 [History Last Taken Unknown] potassium citrate 10 mEq (1,080 mg) tablet,extended release (Urocit-K 10) 10 meq PO DAILY SUPPLEMENT 05/24/15 [History Last Taken 06/03/15 04:30] aspirin 81 mg tablet,delayed release (Lo-Dose Aspirin) 81 mg PO DAILY 10/19/17 [History Last Taken Unknown] fenofibrate nanocrystallized 145 mg tablet 145 mg PO DAILY CHOLESTEROL 10/19/17 [History Last Taken Unknown] ciprofloxacin HCl 500 mg tablet 500 mg PO BID #20 tabs 11/30/18 [Rx Last Taken Unknown] docusate sodium 100 mg capsule 100 mg PO BID #20 caps 11/30/18 [Rx Last Taken Unknown] Allergy/AdvReac Type Severity Reaction Status Date / Time Vmprrpo-JMH-JyL Reductase AdvReac Abd Verified 11/30/18 06:17 Inhibitor cramps/diarrhea [Edjrxvr-Oeb-Elu Reductase Inhibitor] Social History Smoking Status: Never smoker ROS ROS ED Constitutional Constitutional ED: Denies chills, fever(s), subjective or sweats Eyes Eyes: Denies change in vision ENT ENT ED: Reports rhinorrhea and sore throat; Denies ear pain Cardiovascular Cardiovascular: Reports as per HPI Respiratory/Chest Respiratory/Chest: Denies cough, dyspnea or dyspnea on exertion Gastrointestinal Gastrointestinal: Reports abdominal pain and other Details: See history of present illness. Mild epigastric discomfort. ; Denies diarrhea, nausea or vomiting Musculoskeletal Musculoskeletal: Reports arthralgias Integumentary Denies Abrasions or rash Psychiatric Psychiatric: Denies anxiety Endocrine Endocrinology: Denies polydipsia or polyuria Hematologic/Lymphatic Hematologic/Lymphatic: Denies easy bleeding or easy bruising Allergic/Immunologic Allergic/Immunologic ED: Denies urticaria EXAM Physical Exam Narrative Exam Narrative: CONSTITUTIONAL: Patient is nontoxic in appearance. The patient looks comfortable. Work of breathing looks normal. HEENT: No notable trauma. Mucous membranes moist. No sinus tenderness. No indication of pain with swallowing. No sign of exudate or erythema. EYES: No conjunctival injection. No proptosis. NECK:No JVD. No stridor. CARDIOVASCULAR: Regular rate. Regular rhythm. No notable murmur. No JVD. RESPIRATORY: No respiratory distress. Breathing is unlabored. No wheezes. No rhonchi. No rales. No pain with a deep breath. No chest wall tenderness. Saturations are normal at 98% on room air showing no hypoxia. GASTROINTESTINAL: Not distended. Bowel sounds are normal. No tenderness. No guarding. No rebound. No palpable mass. No bruit is heard. GENITOURINARY: No tenderness over the bladder. No CVA tenderness. MUSCULOSKELETAL: Atraumatic. No peripheral edema. No cord. No tenderness along the deep venous system. No asymmetry. No distended veins. He has had knee replacement. There were no signs of any swollen or red joints. He states that just all of his joints were sore. But none of them swelled. Exam is normal. NEUROLOGICAL: Patient is alert and appropriate. No focal deficit noted. SKIN: No noted rashes. No diaphoresis. PSYCHIATRIC: Patient is calm. Mood is appropriate. Const Vital Signs: 11/30/22 19:11 11/30/22 20:11 11/30/22 20:12 Temperature 98.0 F Temperature Source Temporal Pulse Rate 80 80 Respiratory Rate 18 18 Respiratory Effort Blood Pressure 169/92 H 152/75 H Blood Pressure Mean 117 100 Pulse Ox 98 97 Oxygen Delivery Method Room Air Room Air Room Air 11/30/22 20:13 Temperature Temperature Source Pulse Rate Respiratory Rate Respiratory Effort Normal Non-Labored Blood Pressure Blood Pressure Mean Pulse Ox Oxygen Delivery Method MDM MDM MDM Narrative Medical decision making narrative: Patient CBC is normal other than hemoglobin a bit low at 12.1 but this is not the source of his symptoms. Platelets and white count are normal. Patient's electrolytes show some mild elevation in BUN/creatinine. This is a slight elevation in his creatinine above baseline. He will be given a small amount of fluids. Glucose is minimally up at 125 showing good control. Troponin is negative at 7 despite days of symptoms. Repeat troponin is still negative. I rechecked the patient. He is feeling well. He would like to go home. I think his symptoms are likely caused by a combination of heading back to work after being off for 3 years. He then had some epigastric discomfort after eating meal and taking multiple different medications [id number]. We discussed reasons to return. Lab Data Attestation: I reviewed the patient's lab results. Labs: Laboratory Results - last 24 hr 11/30/22 11/30/22 19:55 22:05 WBC 8.1 RBC 4.09 L Hgb 12.1 L Hct 36.6 L MCV 89.5 MCH 29.6 MCHC 33.1 RDW Std Deviation 44.5 H RDW Coeff of [place] 13.4 Plt Count 268 MPV 10.3 Immature Gran % (Auto) 0.400 Neut % (Auto) 63.7 Lymph % (Auto) 18.8 L [place] % (Auto) 10.0 Eos % (Auto) 6.2 H Baso % (Auto) 0.9 Absolute Neuts (auto) 5.2 Absolute Lymphs (auto) 1.53 Nucleated RBC % 0 Sodium 139 Potassium 4.3 Chloride 107 Carbon Dioxide 26.0 Anion Gap 6 BUN 25 H Creatinine 1.76 H Estim Creat Clear Calc 37.38 Est GFR (MDRD) Af Amer 49 L Est GFR (MDRD) Non-Af 41 L BUN/Creatinine Ratio 14.2 Glucose 125 H Calcium 9.3 Troponin I High Sens 7 8 Radiography Diagnostic Testing: Clinical Impression(s) from Imaging Studies Chest X-Ray 11/30/22 19:20 IMPRESSION: No radiographic evidence of acute cardiopulmonary disease. Electronically Signed: Sudarshan Chan MD at 19:51 EDT , EKG Initial EKG: Comments: My independent interpretation the patient's EKG shows a normal sinus rhythm. Overall rate is 75. There is no ectopy. There is no acute ST elevation or depression. There is slight baseline variation. There is slight first-degree AV block with a MO interval of 202 ms. QRS and QTc are normal. Discharge Plan Triage Chief Complaint: Chest Pain ED Provider: Leonides Arauz Dx/Rx/DC Orders Clinical Impression: Arthralgia, Xiphoid pain, Epigastric pain Instructions: ED Epigastric Pain Uncertain Cause Prescriptions: No Action levothyroxine 75 MCG tablet 100 mcg PO DAILY metformin 500 MG tablet 1,000 mg PO DAILY ozbgghkl-gme-XS-lycopen-lutein [Centrum Silver] 1 EACH tablet 1 ea PO DAILY vit A,C and W-xfcigq-nzirtmoh [Ocuvite with Lutein] 1 EACH tablet 1 ea PO DAILY bisoprolol-hydrochlorothiazide 1 EACH tablet 1 ea PO DAILY potassium citrate [Urocit-K 10] 10 MEQ tablet extended release 10 meq PO DAILY omega 6-nnw-byn-fish oil [Fish Oil] 500 MG capsule,delayed release(DR/EC) 1,000 mg PO DAILY Rx Instructions: WILL STOP 7 DAYS PRIOR TO SURGERY aspirin [Lo-Dose Aspirin] 81 MG tablet,delayed release (DR/EC) 81 mg PO DAILY Rx Instructions: WILL STOP 7 DAYS PRIOR TO SURGERY fenofibrate nanocrystallized 145 tablet 145 mg PO DAILY Patient Comments: ciprofloxacin HCl 500 MG tablet 500 mg PO BID Qty: 20 0RF docusate sodium 100 MG capsule 100 mg PO BID Qty: 20 0RF Primary Care Provider: Love Crowley Referrals: Love Crowley DO [Primary Care Provider] - 3-5 Days Disposition Disposition: Home, Self Care
[2022-11-30 22:00] LABS: Reflex Troponin-HS? (from REC) Y
[2022-11-30 22:35] LABS: Troponin-I HS 8 pg/mL (3.0-78.0)
== END 2022-11-30 23:24 | disposition home or self-care (01) ==
PROVIDERS: Emergency Provider Emergency Medicine; PCP Family Medicine; Visit Provider Emergency Medicine
DX: R10.13 Epigastric pain (principal); M94.9 Disorder of cartilage, unspecified; M25.50 Pain in unspecified joint
CPT/HCPCS: 71045; 80048; 84484; 85025; 93005; 99283; A4216

== ENCOUNTER 2022-12-06 15:42 | Inpatient (IN) | payer MEDICARE, OTHER, SELFPAY ==
[2022-12-06 15:44] VITALS: BP 209/155; PULSE 71; RESP 18; TEMP 36; O2SAT 98; BMI 27.2
--- NOTE | 2022-12-06 15:55 | CT_ITS ---
STUDY: CT ABDOMEN AND PELVIS WITH CONTRAST REASON FOR EXAM: Male, 72 years old. upper abdominal pain RADIATION DOSAGE (If Supplied By Facility): CTDIvol = ( 15.95 ) mGy, DLP = ( 1014.90 ) mGycm TECHNIQUE: Transaxial images were obtained from the dome of the diaphragm to the symphysis pubis without oral contrast. IV 100mL Isovue-370 was administered. Sagittal and coronal images were reconstructed. Individualized dose optimization techniques were used for this CT. COMPARISON: 03/08/2014. FINDINGS: Right lower lobe small nodule measuring 4.1 mm, image 1, series 2. Mild bilateral lower lobe atelectasis, remainder of the lung bases are clear. Mild cardiomegaly with coronary artery calcifications. Normal liver. Over distended gallbladder with small stones near the gallbladder neck. Otherwise unremarkable gallbladder and biliary system. Normal spleen. Normal pancreas. Normal bilateral adrenal glands. Mild bilateral perinephric stranding. Mild enhancement of the ordaz of the right renal pelvis, cannot exclude infectious process. Otherwise normal right kidney. Normal left kidney. Normal visualized stomach. Normal small intestine. Normal colon. The appendix is visualized and appears normal. There is diffuse atherosclerotic calcification of the abdominal aorta, without a demonstrated aneurysm. Normal inferior vena cava. Normal retroperitoneum. Likely overdistended urinary bladder otherwise urinary bladder unremarkable. Normal abdominal wall. There are diffuse degenerative changes of the visualized lumbar spine. CT/Abdomen/Pelvis W IV Cont ONLY IMPRESSION: Possible infectious process involving the right renal collecting system, clinical correlation recommended. Over distended gallbladder with tiny gallstones. If indicated, this can be further assessed with right upper quadrant ultrasound. No acute appendicitis or bowel obstruction. Electronically Signed: Mari Pate MD at 17:04 EDT ,
--- NOTE | 2022-12-06 16:00 | EX.ED.DYSGE1 ---
HPI <TORO Avalos - Last Filed: 12/06/22 20:21> History of Present Illness Chief Complaint: Abd Pain Narrative Narrative: 72-year-old male ate steak and baked potato and salad at [facility] around 1130 and then at 2 PM developed epigastric pain and nausea and vomiting. He states he had normal bladder and bowel movements this week. No fever or chills. He has no chest pain or shortness of breath. Denies history of GERD or pain with eating. No abdominal surgical history. He does not drink or smoke. [facility] <TORO Avalos - Last Filed: 12/06/22 20:21> [facility] Medical History Diabetes mellitus Hypertension Hypothyroid Leg cramping Sleep apnea treated with continuous positive airway pressure (CPAP) Home Medications levothyroxine 75 mcg tablet 100 mcg PO DAILY THYROID 01/08/13 [History Last Taken 12/06/22 05:00] metformin 500 mg tablet,extended release 24 hr 1,000 mg PO BID DIABETES 01/08/13 [History Last Taken 12/06/22 13:30] ftcybddt-qam-pivyn acid 0.4 mg-lycopene 300 mcg-lutein 250 mcg tablet (Centrum Silver) 1 ea PO DAILY SUPPLEMENT' 01/08/13 [History Last Taken 12/06/22 07:00] omega 3-dha 60 mg-epa 90 mg-fish oil 500 mg capsule, delayed release (Fish Oil) 1,000 mg PO BID supplement 05/24/15 [History Last Taken 12/06/22 13:30] potassium citrate 10 mEq (1,080 mg) tablet,extended release (Urocit-K 10) 10 meq PO DAILY SUPPLEMENT 05/24/15 [History Last Taken 06/03/15 04:30] fenofibrate nanocrystallized 145 mg tablet 145 mg PO DAILY CHOLESTEROL 10/19/17 [History Last Taken Unknown] ezetimibe 10 mg tablet 10 mg PO DAILY 12/06/22 [History Last Taken Unknown] glipizide 5 mg tablet 2.5 mg PO DINNER diabetes 12/06/22 [History Last Taken 12/06/22 13:30] losartan 25 mg tablet 25 mg PO DAILY 12/06/22 [History Last Taken Unknown] vit C 250 mg-vit E 90 mg-zinc 40 mg-copper 1 hj-whyjjp-fbpazn capsule (PreserVision AREDS-2) 1 tab PO BID eye health 12/06/22 [History Last Taken 12/06/22 13:30] Allergy/AdvReac Type Severity Reaction Status Date / Time Ifduoja-FOQ-DgY Reductase AdvReac leg cramps Verified 12/06/22 21:43 Inhibitor [Qocezpo-Mxj-Okd Reductase Inhibitor] Surgical History H/O prostatectomy History of tonsillectomy and adenoidectomy Social History Smoking Status: Never smoker ROS <TORO Avalos - Last Filed: 12/06/22 20:21> ROS ED ROS Narrative Constitutional: Negative for fever, chills, malaise. CVS: Negative for palpitations, chest pain, syncope. Respiratory: Negative for shortness of breath, cough. GI: Positive for abdominal pain, nausea, vomiting. Negative for diarrhea, constipation, melena, hematochezia. : Negative for dysuria, hematuria or frequency. EXAM <TORO Avalos - Last Filed: 12/06/22 20:21> Physical Exam Narrative Exam Narrative: CONST: Patient sitting in no acute distress. EYES: Normal inspection. NECK: Normal inspection. RESP: No respiratory distress, CTAB. CVS: Regular rate and rhythm, no murmur, no gallop. ABD: Soft with minimal epigastric tenderness, no guarding or rebound, nondistended, no hepatosplenomegaly. SKIN: Color normal, no rash, warm, dry, intact. EXTREMITIES: Normal appearance, no pedal edema. NEURO: Oriented x4. PSYCH: Normal affect. Const Vital Signs: 12/06/22 15:44 12/06/22 19:20 12/06/22 19:55 Temperature 96.8 F L Temperature Source Temporal Pulse Rate 71 65 67 Respiratory Rate 18 17 18 Blood Pressure 209/155 H 172/72 H 163/69 H Blood Pressure Mean 173 105 100 Pulse Ox 98 94 94 Oxygen Delivery Method Room Air Room Air Room Air <Hal Rivas MD - Last Filed: 12/07/22 15:22> Physical Exam Const Vital Signs: 12/06/22 15:44 12/06/22 19:20 12/06/22 19:55 Temperature 96.8 F L Temperature Source Temporal Pulse Rate 71 65 67 Respiratory Rate 18 17 18 Blood Pressure 209/155 H 172/72 H 163/69 H Blood Pressure Mean 173 105 100 Pulse Ox 98 94 94 Oxygen Delivery Method Room Air Room Air Room Air MDM <TORO Avalos - Last Filed: 12/06/22 20:21> [employer] Narrative Medical decision making narrative: History gathered from: Patient and spouse Patient presents with vomiting and epigastric pain that started after eating lunch. He appears well and nontoxic. He is hypertensive with otherwise normal vital signs. He has epigastric and RUQ pain with no peritoneal signs. Labs show white count of 9.4, CMP shows renal function is at baseline with creatinine 1.34 and is otherwise unremarkable, lipase is slightly up at 152. CT shows over distended gallbladder with stones. CT also shows possible infectious process involving the right renal collecting system but he has no flank pain and urinalysis is negative so I do not suspect this is related to his symptoms. RUQ ultrasound shows over-distended gallbladder with sludge and stones with no evidence of acute cholecystitis. Patient continues to have abdominal pain despite multiple rounds of analgesia so I will consult general surgery. Dr. Mitchell evaluated patient and admitted him under his service for acute cholecystitis and requested IV Zofran which was administered in the ED. He also requested a medicine consult for clearance so I discussed with the hospitalist. Differential: GERD, gastritis, biliary colic, cholecystitis, pancreatitis among others Lab Data Attestation: I reviewed the patient's lab results. Labs: Laboratory Results - last 24 hr 12/06/22 12/06/22 16:00 19:53 WBC 9.4 RBC 4.29 L Hgb 12.4 L Hct 38.1 L MCV 88.8 MCH 28.9 MCHC 32.5 RDW Std Deviation 43.3 RDW Coeff of [place] 13.3 Plt Count 353 MPV 10.0 Immature Gran % (Auto) 1.100 H Neut % (Auto) 65.8 Lymph % (Auto) 21.0 [place] % (Auto) 7.0 Eos % (Auto) 4.1 Baso % (Auto) 1.0 Absolute Neuts (auto) 6.2 Absolute Lymphs (auto) 1.98 Nucleated RBC % 0 Sodium 141 Potassium 4.1 Chloride 107 Carbon Dioxide 27.0 Anion Gap 7 BUN 31 H Creatinine 1.34 H Estim Creat Clear Calc 49.10 Est GFR (MDRD) Af Amer 67 Est GFR (MDRD) Non-Af 55 L BUN/Creatinine Ratio 23.1 H Glucose 124 H Calcium 9.9 Total Bilirubin 0.30 AST 16 ALT 33 Alkaline Phosphatase 59 Total Protein 8.2 Albumin 4.2 Globulin 4.0 Albumin/Globulin Ratio 1.0 Lipase 152 H Urine Color Yellow Urine Clarity Clear Urine pH 8.0 Ur Specific Collins 1.015 Urine Protein 100 H Urine Glucose (UA) Normal Urine Ketones Negative Urine Occult Blood 10 H Urine Nitrite Negative Urine Bilirubin Negative Urine Urobilinogen Normal Ur Leukocyte Esterase 25 H Urine RBC 0-5 SEEN Urine WBC 0-5 SEEN Ur Squamous Epith Cells 0-5 SEEN Urine Bacteria 0 SEEN Urine Mucus 0 SEEN Radiography Diagnostic Testing: Clinical Impression(s) from Imaging Studies Abdomen/Pelvis CT 12/06/22 15:55 IMPRESSION: Possible infectious process involving the right renal collecting system, clinical correlation recommended. Over distended gallbladder with tiny gallstones. If indicated, this can be further assessed with right upper quadrant ultrasound. No acute appendicitis or bowel obstruction. Electronically Signed: Mari Pate MD at 17:04 EDT , Gallbladder Ultrasound 12/06/22 17:06 IMPRESSION: Slightly over distended gallbladder with sludge and gallstone is described. Positive Rushing sign, nonspecific in the absence of additional signs of acute cholecystitis. However, due to increased distention, if clinical concern for acute cholecystitis remains, recommend dedicated HIDA scan. Remainder of the right upper quadrant ultrasound. Electronically Signed: Mari Pate MD at 19:02 EDT , <Hal Rivas MD - Last Filed: 12/07/22 15:22> [facility] MDM Narrative Medical decision making narrative: History gathered from: Patient and spouse Patient presents with vomiting and epigastric pain that started after eating lunch. He appears well and nontoxic. He is hypertensive with otherwise normal vital signs. He has epigastric and RUQ pain with no peritoneal signs. Labs show white count of 9.4, CMP shows renal function is at baseline with creatinine 1.34 and is otherwise unremarkable, lipase is slightly up at 152. CT shows over distended gallbladder with stones. CT also shows possible infectious process involving the right renal collecting system but he has no flank pain and urinalysis is negative so I do not suspect this is related to his symptoms. RUQ ultrasound shows over-distended gallbladder with sludge and stones with no evidence of acute cholecystitis. Patient continues to have abdominal pain despite multiple rounds of analgesia so I will consult general surgery. Dr. Mitchell evaluated patient and admitted him under his service for acute cholecystitis and requested IV Zofran which was administered in the ED. He also requested a medicine consult for clearance so I discussed with the hospitalist. Differential: GERD, gastritis, biliary colic, cholecystitis, pancreatitis among others Dr. Rivas: I have personally performed a face to face assessment of the patient and have reviewed the ERIN Note. I performed a substantive portion of the visit including all aspects of the following. My rabago findings include: History is epigastric pain, right upper quadrant pain after eating, nausea and vomiting. Exam is afebrile. Vital signs noted. Regular rate and rhythm. Lungs clear to auscultation bilaterally. Abdomen soft with tenderness to palpation in epigastrium and right upper quadrant. Positive Rushing sign. Medical Decision Making: Check labs. Check CT. Check ultrasound. Concern for cholecystitis. Consult surgery. Discussed with hospitalist. Admit. Other additions or changes: [None] Lab Data Labs: Laboratory Results - last 24 hr 12/06/22 12/06/22 16:00 19:53 WBC 9.4 RBC 4.29 L Hgb 12.4 L Hct 38.1 L MCV 88.8 MCH 28.9 MCHC 32.5 RDW Std Deviation 43.3 RDW Coeff of [place] 13.3 Plt Count 353 MPV 10.0 Immature Gran % (Auto) 1.100 H Neut % (Auto) 65.8 Lymph % (Auto) 21.0 [place] % (Auto) 7.0 Eos % (Auto) 4.1 Baso % (Auto) 1.0 Absolute Neuts (auto) 6.2 Absolute Lymphs (auto) 1.98 Nucleated RBC % 0 Sodium 141 Potassium 4.1 Chloride 107 Carbon Dioxide 27.0 Anion Gap 7 BUN 31 H Creatinine 1.34 H Estim Creat Clear Calc 49.10 Est GFR (MDRD) Af Amer 67 Est GFR (MDRD) Non-Af 55 L BUN/Creatinine Ratio 23.1 H Glucose 124 H Calcium 9.9 Total Bilirubin 0.30 AST 16 ALT 33 Alkaline Phosphatase 59 Total Protein 8.2 Albumin 4.2 Globulin 4.0 Albumin/Globulin Ratio 1.0 Lipase 152 H Urine Color Yellow Urine Clarity Clear Urine pH 8.0 Ur Specific [place] 1.015 Urine Protein 100 H Urine Glucose (UA) Normal Urine Ketones Negative Urine Occult Blood 10 H Urine Nitrite Negative Urine Bilirubin Negative Urine Urobilinogen Normal Ur Leukocyte Esterase 25 H Urine RBC 0-5 SEEN Urine WBC 0-5 SEEN Ur Squamous Epith Cells 0-5 SEEN Urine Bacteria 0 SEEN Urine Mucus 0 SEEN Radiography Diagnostic Testing: Clinical Impression(s) from Imaging Studies Abdomen/Pelvis CT 12/06/22 15:55 IMPRESSION: Possible infectious process involving the right renal collecting system, clinical correlation recommended. Over distended gallbladder with tiny gallstones. If indicated, this can be further assessed with right upper quadrant ultrasound. No acute appendicitis or bowel obstruction. Electronically Signed: Mari Pate MD at 17:04 EDT , Gallbladder Ultrasound 12/06/22 17:06 IMPRESSION: Slightly over distended gallbladder with sludge and gallstone is described. Positive Rushing sign, nonspecific in the absence of additional signs of acute cholecystitis. However, due to increased distention, if clinical concern for acute cholecystitis remains, recommend dedicated HIDA scan. Remainder of the right upper quadrant ultrasound. Electronically Signed: Mari Pate MD at 19:02 EDT , Discharge Plan Dx/Rx/DC Orders Clinical Impression: Nausea and vomiting, Acute cholecystitis Disposition Disposition: Acute Care Hospital [facility] Discharge Date/Time: 12/06/22 20:55
[2022-12-06] MEDS: Ondansetron 4 MG/2 ML Vial IV ×2 (16:05→17:12)
[2022-12-06 16:10] LABS: Absolute Lymphocyte Count 1.98 X10^3/uL (0.83-4.51); Absolute Neutrophil Count 6.2 X10^3/uL (2.0-7.7); Basophil# 0.09 X10^3/uL; Eosinophil# 0.39 X10^3/uL; Eosinophils% 4.1 % (0-5); Hematocrit 38.1 % (40-54); Hemoglobin 12.4 g/dL (13.0-16.5); Lymphocyte # 1.98 X10^3/ul (0.83-4.51); Mean Corp Hgb Conc 32.5 g/dL (32-36); Mean Corpuscular Hgb 28.9 pg (27.0-32.0); Mean Corpuscular Volume 88.8 fL (80-94); Monocyte# 0.66 X10^3/uL; NRBC Flagged by Analyzer 0 % (0-5); Neutrophil # 6.22 X10^3/uL (2.7-7.7); Neutrophil % 65.8 % (47-70); Platelet Count 353 K/mm3 (150-450); RBC Distribution Width CV 13.3 % (11.6-14.6); RBC Distribution Width SD 43.3 fl (35.1-43.9); Red Blood Count 4.29 M/mm3 (4.6-6.2); White Blood Count 9.4 K/mm3 (4.4-11.0)
[2022-12-06] MEDS: Morphine 4 MG/ML Syringe IV ×3 (16:12→18:46)
[2022-12-06 16:31] LABS: AST(SGOT) 16 U/L (15-37); Alanine Aminotransfer ALT/SGPT 33 U/L (16-61); Albumin, Serum 4.2 g/dL (3.2-5.0); Alkaline Phosphatase 59 U/L (45-117); Anion Gap 7 (5-15); BUN 31 mg/dL (7-18); BUN/Creat Ratio 23.1 RATIO (10-20); Calcium,Total 9.9 mg/dL (8.5-10.1); Chloride 107 mmol/L (98-107); Creatinine, Serum 1.34 mg/dL (0.70-1.30); EST Glomerular Filtration Rate 55 mL/min (>60); Est Glom Filt Rate - Afr Amer 67 mL/min (>60); Glucose 124 mg/dL (74-106); Lipase 152 U/L (13-75); Potassium 4.1 mmol/L (3.5-5.1); Protein, Total 8.2 g/dL (6.4-8.2); Sodium Level 141 mmol/L (136-145)
[2022-12-06] MEDS: Famotidine 200 MG/20 ML MDV 20 MG in 0.9% Normal Saline (Pres. free 8 ML 300 MG IV (16:31)
--- NOTE | 2022-12-06 17:06 | US_ITS ---
STUDY: ABDOMINAL ULTRASOUND - RIGHT UPPER QUADRANT REASON FOR VISIT: Male, 72 years old RUQ pain TECHNIQUE: Ultrasound evaluation of the right upper quadrant was performed with real-time and static garza-scale imaging. TECHNICAL QUALITY: Limited. Examination limited by bowel gas. COMPARISON: None. FINDINGS: Liver: The liver measures 17.4 cm. There is normal echogenicity of the liver. The bile ducts are within normal limits. There is hepatic color flow. The direction of portal flow is hepatopetal. There is no demonstrated mass lesion. Gallbladder: Over distended gallbladder. The gallbladder wall measures 3.7 mm. There is a positive sonographic Rushing''s sign. There is no pericholecystic fluid. There is a solitary echogenic gallstone within the gallbladder at the gallbladder neck measuring 1.1 x 1.0 x 0.7 cm. There is sludge within the gallbladder. Common Bile Duct (C.B.D.): The common bile duct measures 4.1 mm. Pancreas: Normal size of the head, body and tail of the pancreas. There is normal echogenicity of the pancreas. There is no demonstrated pancreatic mass or cyst. Right Kidney: Normal size of the right kidney. The right kidney measures 12.1 x 5.0 x 5.9 cm. Normal renal cortex. The right cortex measures 2.1 cm. An exophytic undergoing structure seen along the medial aspect of the right kidney measuring 1.0 x 0.9 x 0.9 cm consistent with a simple renal cyst. There is no right hydronephrosis. There is question mild perinephric stranding. US/Gallbladder IMPRESSION: Slightly over distended gallbladder with sludge and gallstone is described. Positive Rushing sign, nonspecific in the absence of additional signs of acute cholecystitis. However, due to increased distention, if clinical concern for acute cholecystitis remains, recommend dedicated HIDA scan. Remainder of the right upper quadrant ultrasound. Electronically Signed: Mari Pate MD at 19:02 EDT ,
[2022-12-06 19:20] VITALS: BP 172/72; PULSE 65; RESP 17; O2SAT 94
[2022-12-06 19:55] VITALS: BP 163/69; PULSE 67; RESP 18; O2SAT 94
[2022-12-06 19:56] LABS: Bacteria 0 SEEN /hpf (None Seen); Mucous, Urine 0 SEEN /hpf (<or=2+)
[2022-12-06 19:59] LABS: Color, Urine Yellow (Yellow); Glucose, Dipstick Normal (Normal); Ketone-Dipstick Negative (Negative); Leukocyte Esterase-Dipstick 25 /ul (Negative); Nitrite-Dipstick Negative (Negative); Occult Blood-Urine 10 /ul (Negative); Protein-Dipstick 100 mg/dl (Negative); Specific Gravity, Urine 1.015 (1.002-1.030); Urine Bilirubin Dipstick Negative (Negative); Urine Clarity Clear (Clear); Urine Urobilinogen Normal (Normal)
[2022-12-06 20:09] LABS: Red Blood Cells-Urine 0-5 SEEN /hpf (0-5); Squamous Epithelial Cells - UA 0-5 SEEN /hpf (0-5); White Blood Cells 0-5 SEEN /hpf (0-5)
--- NOTE | 2022-12-06 20:31 | PCM.HP.STD ---
[facility] - General General Date of Service: 12/06/22 Chief Complaint: Acute onset right upper quadrant abdominal pain [facility] Narrative SINDY GREENFIELD, is a 72 M who presents to [facility] after experiencing acute onset right upper quadrant abdominal pain at approximately 1400 this afternoon. Patient states that he was out to dinner at [facility] and ate a salad with dressing and part of a steak with a potato at approximately 1215. Thereafter he experienced the abdominal pain described above as well as some associated nausea. In route to the hospital he did have some vomiting. He denies any associated fevers or chills. Mr. Greenfield reports that he presented here to [facility] ER 5 days ago with the same complaints. At that time he was evaluated for chest pain, but was informed that he had completely normal work-up. Patient's ER work-up today is notable for CMP without abnormalities of his LFTs. CBC shows normal white blood cell count but slightly elevated immature granulocytes. CT imaging of the abdomen pelvis was obtained which shows some haziness around the right renal pelvis as well as a over distended gallbladder. Therefore right upper quadrant ultrasound was obtained reflexively and confirmed the presence of a thickened gallbladder wall at 3.7 mm. Ultrasound also confirmed the presence of a 1.1 cm gallstone in the neck of the gallbladder. The health care analyst reported a positive sonographic Rushing sign. In the end radiology concluded that all of these were nonspecific and recommended a HIDA scan if cholecystitis was to be more fully evaluated. Mr. Greenfield confirms a history of hypertension and confesses that he is not checked his blood pressures regularly at home. His blood pressure in the ER is ranged as high as 210/150s he denies any headaches or symptoms from this high blood pressure. He additionally confirms a history of prostate cancer status post prostatectomy (this represents his only abdominal surgery) and diabetes mellitus with a HbA1c less than 6.5. [facility] Home Medications levothyroxine 75 mcg tablet 100 mcg PO DAILY THYROID 01/08/13 [History Last Taken 11/30/18 04:45] metformin 500 mg tablet,extended release 24 hr 1,000 mg PO BID DIABETES 01/08/13 [History Last Taken Unknown] ycjtjopp-rcn-btolf acid 0.4 mg-lycopene 300 mcg-lutein 250 mcg tablet (Centrum Silver) 1 ea PO DAILY SUPPLEMENT' 01/08/13 [History Last Taken Unknown] vit A 300 mcg-C 200 mg-E 27 mg-lutein 2 mg and minerals tablet (Ocuvite with Lutein) 1 ea PO DAILY EYE VITAMIN 03/08/14 [History Last Taken Unknown] omega 3-dha 60 mg-epa 90 mg-fish oil 500 mg capsule, delayed release (Fish Oil) 1,000 mg PO BID 05/24/15 [History Last Taken Unknown] potassium citrate 10 mEq (1,080 mg) tablet,extended release (Urocit-K 10) 10 meq PO DAILY SUPPLEMENT 05/24/15 [History Last Taken 06/03/15 04:30] fenofibrate nanocrystallized 145 mg tablet 145 mg PO DAILY CHOLESTEROL 10/19/17 [History Last Taken Unknown] ezetimibe 10 mg tablet 10 mg PO DAILY 12/06/22 [History Last Taken Unknown] glipizide 5 mg tablet 2.5 mg PO QHS 12/06/22 [History Last Taken Unknown] losartan 25 mg tablet 25 mg PO DAILY 12/06/22 [History Last Taken Unknown] Allergy/AdvReac Type Severity Reaction Status Date / Time Vqfharf-GOF-CpQ Reductase AdvReac Abd Verified 12/06/22 15:44 Inhibitor cramps/diarrhea [Nsznxpc-Ney-Qbp Reductase Inhibitor] Social History Smoking Status: Never smoker ROS Constitutional Constitutional: Denies chills, fatigue or fever(s) Gastrointestinal Gastrointestinal: Reports abdominal pain, nausea and vomiting Vital Signs Vital Signs Vital Signs: 12/06/22 15:44 12/06/22 19:20 12/06/22 19:55 Temperature 96.8 F L Temperature Source Temporal Pulse Rate 71 65 67 Respiratory Rate 18 17 18 Blood Pressure 209/155 H 172/72 H 163/69 H Blood Pressure Mean 173 105 100 Pulse Ox 98 94 94 Oxygen Delivery Method Room Air Room Air Room Air Weight Weight: 184 lb 4.8 oz Body Mass Index (BMI) 27.2 Physical Exam Const alert, oriented x3 and no apparent distress General Appearance: cooperative Resp normal respiratory effort GI GI Narrative: Hirsute abdominal wall, nondistended, lower abdomen with well-healed laparoscopy port site scars, soft with focal tenderness in the right upper quadrant. Positive Rushing sign with palpation of a very specific area in his right upper quadrant. Results Lab / Micro Data 12/06/22 16:00 12/06/22 16:00 Labs: Laboratory Results - last 24 hr 12/06/22 16:00: WBC 9.4, RBC 4.29 L, Hgb 12.4 L, Hct 38.1 L, MCV 88.8, MCH 28.9, MCHC 32.5, RDW Std Deviation 43.3, RDW Coeff of [place] 13.3, Plt Count 353, MPV 10.0, Immature Gran % (Auto) 1.100 H, Neut % (Auto) 65.8, Lymph % (Auto) 21.0, [place] % (Auto) 7.0, Eos % (Auto) 4.1, Baso % (Auto) 1.0, Absolute Neuts (auto) 6.2, Absolute Lymphs (auto) 1.98, Nucleated RBC % 0, Sodium 141, Potassium 4.1, Chloride 107, Carbon Dioxide 27.0, Anion Gap 7, BUN 31 H, Creatinine 1.34 H, Estim Creat Clear Calc 49.10, Est GFR (MDRD) Af Amer 67, Est GFR (MDRD) Non-Af 55 L, BUN/Creatinine Ratio 23.1 H, Glucose 124 H, Calcium 9.9, Total Bilirubin 0.30, AST 16, ALT 33, Alkaline Phosphatase 59, Total Protein 8.2, Albumin 4.2, Globulin 4.0, Albumin/Globulin Ratio 1.0, Lipase 152 H 12/06/22 19:53: Urine Color Yellow, Urine Clarity Clear, Urine pH 8.0, Ur Specific [place] 1.015, Urine Protein 100 H, Urine Glucose (UA) Normal, Urine Ketones Negative, Urine Occult Blood 10 H, Urine Nitrite Negative, Urine Bilirubin Negative, Urine Urobilinogen Normal, Ur Leukocyte Esterase 25 H, Urine RBC 0-5 SEEN, Urine WBC 0-5 SEEN, Ur Squamous Epith Cells 0-5 SEEN, Urine Bacteria 0 SEEN, Urine Mucus 0 SEEN Radiology Impression Abdomen/Pelvis CT 12/06/22 15:55 IMPRESSION: Possible infectious process involving the right renal collecting system, clinical correlation recommended. Over distended gallbladder with tiny gallstones. If indicated, this can be further assessed with right upper quadrant ultrasound. No acute appendicitis or bowel obstruction. Electronically Signed: Mari Pate MD at 17:04 EDT , Gallbladder Ultrasound 12/06/22 17:06 IMPRESSION: Slightly over distended gallbladder with sludge and gallstone is described. Positive Rushing sign, nonspecific in the absence of additional signs of acute cholecystitis. However, due to increased distention, if clinical concern for acute cholecystitis remains, recommend dedicated HIDA scan. Remainder of the right upper quadrant ultrasound. Electronically Signed: Mari Pate MD at 19:02 EDT , Assessment & Plan Assessment/Plan (1) Acute cholecystitis: PLAN: This is a 72-year-old male who presents with complaints of recurrent right upper quadrant discomfort with associated nausea and vomiting. ER work-up for his right upper quadrant discomfort included both CT and ultrasound imaging. Both of these identify some thickening of his gallbladder as well as gallbladder distention. The former showed in better detail the presence of a 1.1 cm gallbladder neck stone. Notably, patient has normal white blood cell count and normal LFTs with CMP. I believe he represents a case of acute on chronic cholecystitis given his normal labs, but also the presence of a positive Rushing sign. Therefore, based on this diagnosis and patient's prior presentation, I recommend proceeding with a laparoscopic cholecystectomy and intraoperative cholangiogram tomorrow. Procedure was described in detail as well as post procedure activity restrictions. Patient expresses his interest in proceeding as described. In the meantime we will have the hospitalist service evaluate given his accelerated hypertension displayed during his earlier presentation here and hopefully he will be further optimized prior to surgery. Neuro: As needed Dilaudid (patient states he wishes to not be placed on oxycodone postoperatively) Pulm/CV: Incentive spirometer, hospitalist consult to optimize hypertension preop FEN/GI: Clear liquid diet then n.p.o. after midnight, CMP in the a.m., plan for laparoscopic cholecystectomy tomorrow a.m. : Patient with UA pending for haziness of right renal pelvis Heme/ID: CBC in a.m., empiric coverage with Zosyn Endo: Imldh-hp-luly glucose testing, overall excellent control of blood sugar despite diabetes diagnosis per patient and recall of A1c Proph: SCDs Dispo: Admit to inpatient Charges/Coding Visit Charges Inpatient E&M: 78704 Init Hosp L2
--- NOTE | 2022-12-06 20:46 | PN.HOSP_ITS ---
Reason for Visit Reason for Visit: Diagnoses Acute cholecystitis (12/06/22) Subjective Subjective Patient is a 72-year-old male with a significant history of hypertension; diabetes mellitus with nephropathy; CKD and neuropathy who presents emergency department with right upper quadrant pain that started after eating lunch at [facility]. His pain started about an hour and a half after he has eating. He described the pain as dull. The pain is at his epigastric area. He denies any aggravating factors to the pain. He received morphine IV at the emergency department that helped with his pain. His pain is nonradiating but he had a tenderness of his right upper quadrant upon examination by general surgeon. Patient has been diagnosed with acute on chronic cholecystitis and internal medicine service has been consulted for preoperative surgical evaluation especially as patient recently came to emergency department for chest pain on 11/30/2022. He reported that on 11/30/2022 the chest pain was also epigastric but at that time the pain radiated into his chest. At the emergency department patient was found to have severely elevated blood p ressure which came down without any antihypertensive medication. Of note patient is on losartan which he reports compliance with. Objective Data Objective Data Vital Signs: Vital Signs Temp Pulse Resp BP Pulse Ox O2 Del Method 96.8 F L 67 18 163/69 H 94 Room Air 12/06/22 15:44 12/06/22 19:55 12/06/22 19:55 12/06/22 19:55 12/06/22 19:55 12/06/22 19:55 Oxygen Delivery Method Room Air Weight: 83.597 kg Body Mass Index (BMI) 27.2 Intake & Output: Intake and Output for Last 24 Hours 12/04/22 12/05/22 12/06/22 23:59 23:59 23:59 Intake Total Balance Lab / Micro Data Attestation: I reviewed the patient's lab results. 12/06/22 16:00 12/06/22 16:00 Labs: Laboratory Results - last 24 hr 12/06/22 16:00: WBC 9.4, RBC 4.29 L, Hgb 12.4 L, Hct 38.1 L, MCV 88.8, MCH 28.9, MCHC 32.5, RDW Std Deviation 43.3, RDW Coeff of [place]ico 13.3, Plt Count 353, MPV 10.0, Immature Gran % (Auto) 1.100 H, Neut % (Auto) 65.8, Lymph % (Auto) 21.0, [place] % (Auto) 7.0, Eos % (Auto) 4.1, Baso % (Auto) 1.0, Absolute Neuts (auto) 6.2, Absolute Lymphs (auto) 1.98, Nucleated RBC % 0, Sodium 141, Potassium 4.1, Chloride 107, Carbon Dioxide 27.0, Anion Gap 7, BUN 31 H, Creatinine 1.34 H, Estim Creat Clear Calc 49.10, Est GFR (MDRD) Af Amer 67, Est GFR (MDRD) Non-Af 55 L, BUN/Creatinine Ratio 23.1 H, Glucose 124 H, Calcium 9.9, Total Bilirubin 0.30, AST 16, ALT 33, Alkaline Phosphatase 59, Total Protein 8.2, Albumin 4.2, Globulin 4.0, Albumin/Globulin Ratio 1.0, Lipase 152 H 12/06/22 19:53: Urine Color Yellow, Urine Clarity Clear, Urine pH 8.0, Ur Spec ific [place] 1.015, Urine Protein 100 H, Urine Glucose (UA) Normal, Urine Ket ones Negative, Urine Occult Blood 10 H, Urine Nitrite Negative, Urine Bilirubin Negative, Urine Urobilinogen Normal, Ur Leukocyte Esterase 25 H, Urine RBC 0-5 SEEN, Urine WBC 0-5 SEEN, Ur Squamous Epith Cells 0-5 SEEN, Urine Bacteria 0 SEEN, Urine Mucus 0 SEEN Radiography Diagnostic Testing: Radiology Impression Abdomen/Pelvis CT 12/06/22 15:55 IMPRESSION: Possible infectious process involving the right renal collecting system, clinical correlation recommended. Over distended gallbladder with tiny gallstones. If indicated, this can be further assessed with right upper quadrant ultrasound. No acute appendicitis or bowel obstruction. Electronically Signed: Mari Pate MD at 17:04 EDT , Gallbladder Ultrasound 12/06/22 17:06 IMPRESSION: Slightly over distended gallbladder with sludge and gallstone is described. Positive Rushing sign, nonspecific in the absence of additional signs of acute cholecystitis. However, due to increased distention, if clinical concern for acute cholecystitis remains, recommend dedicated HIDA scan. Remainder of the right upper quadrant ultrasound. Electronically Signed: Mari Pate MD at 19:02 EDT , Physical Exam Narrative Physical exam: General: Well-nourished, well-developed. Head: Normocephalic, atraumatic, no tenderness Eyes: Vision is grossly intact. EOMI ENT, no trauma, moist mucous membranes, no rhinorrhea Neck: Nontender, No thyromegaly. CVS: Regular rate and rhythm. S1-S2 present. No murmur, gallop or rub. Respiratory : clear to auscultation bilaterally, chest wall nontender Abdomen: Soft, nontender, nondistended, normal bowel sounds, no masses : Deferred Back: Nontender, no CVA tenderness, no midline spinal tenderness, deformities, step-offs Extremities: Nontender full range of motion, no trauma Skin: Normal color, no trauma, abrasions Neuro: Alert, oriented, cranial nerves II through XII grossly intact. Psychiatry: Normal mood. Normal affect. Not depressed. Not anxious. Assessment & Plan Assessment/Plan (1) Acute cholecystitis: (2) Hypertension: QUALIFIERS: Hypertension type: unspecified Qualified Code(s): I10 - Essential (primary) hypertension (3) Diabetes 1.5, managed as type 2: PLAN: Plan Acute cholecystitis Impression of gallbladder ultrasound by radiology: Slightly over distended gallbladder with sludge and gallstone is described. Positive Rushing sign, nonspecific in the absence of additional signs of acute cholecystitis. However, due to increased distention, if clinical concern for acute cholecystitis remains, recommend dedicated HIDA scan. Ultrasound was independently interpreted, agrees with radiology interpretation. Abdomen/pelvis CT with over distended gallbladder containing stones. ACS NSQIP surgical risk calculator with above average risk of cardiopulmonary and others. However patient does not have any acute respiratory or cardiac issues that is of concern. And may proceed with surgery. However will order telemetry. Preoperative EKG ordered. Given Zosyn in the emergency department and continued by general surgery. Management per primary (general surgery). Hypertensive urgency Highest systolic blood pressure in emergency department was 209. Patient thinks that his blood pressure was elevated because he vomited. Other contributing factors to his elevated blood pressure could be his pain. In the setting of patient who will be n.p.o. for surgery would hold home losartan. Vasotec IV [id number] ordered. As needed hydralazine ordered. Trend blood pressure and adjust blood pressure medications. Diabetes mellitus Blood glucose is stable. In the setting of patient will be made n.p.o. we will hold outpatient metformin and glipizide. Accu-Chek with correction scale insulin ordered. CKD stage IIIa Stable DVT prophylaxis SCDs Time spent in the patient's overall evaluation,decision-making process, review of diagnostic data, adjustment of management, discussion with other providers, nursing nursing and ancillary staff involved in patient's care documentation, 45 minutes. Charges/Coding Visit Charges In[facility] E[facility]M: [facility]
[2022-12-06 20:54] VITALS: BP 163/69; PULSE 67; RESP 18; TEMP 36; O2SAT 94
--- NOTE | 2022-12-06 21:13 | EKG12_ITS ---
Test Reason : pre op Blood Pressure : / mmHG Vent. Rate : 069 BPM Atrial Rate : 069 BPM P-R Int : 246 ms QRS Dur : 098 ms QT Int : 378 ms P-R-T Axes : 040 010 002 degrees QTc Int : 405 ms Sinus rhythm with 1st degree A-V block Otherwise normal ECG When compared with ECG of 30-NOV-2022 19:18, MANUAL COMPARISON REQUIRED, DATA IS UNCONFIRMED Confirmed by LINDA SOLER, SHABANA ([id number]), video effects editor AIDEN LORENZO ([id number]) on 01/12/2023 1:36:03 PM Referred By: Stephen Confirmed By:SHABANA MCKEON MD
[2022-12-06 21:24] VITALS: BP 191/82; PULSE 80; RESP 18; TEMP 36.7; O2SAT 98
[2022-12-06 21:28] VITALS: BMI 25.4
[2022-12-06] MEDS: 0.9% Normal Saline 1,000 ML 125 ML IV (22:09)
[2022-12-06] MEDS: Enalaprilat 1.25 MG/ML Vial 0.625 MG IV (22:10)
[2022-12-06] MEDS: HYDROmorphone 0.5 MG/0.5 ML SYRINGE IV (22:22)
[2022-12-07] VITALS (14 sets, daily range): BP systolic 133–191; BP diastolic 53–82; PULSE 66–80; RESP 16–18; TEMP 36.4–37.2; O2SAT 92–98; BMI 25.4
[2022-12-07 00:25] LABS: Bedside Glucose 151 mg/dL (74-106)
[2022-12-07] MEDS: 0.9% Normal Saline 1,000 ML 125 ML IV ×2 (04:27→14:23)
[2022-12-07] MEDS: HYDROmorphone 0.5 MG/0.5 ML SYRINGE IV (04:33)
[2022-12-07 05:42] LABS: Absolute Lymphocyte Count 1.05 X10^3/uL (0.83-4.51); Absolute Neutrophil Count 10.7 X10^3/uL (2.0-7.7); Basophil# 0.06 X10^3/uL; Basophil% 0.5 % (0-1); Eosinophil# 0.02 X10^3/uL; Eosinophils% 0.2 % (0-5); Hematocrit 33.7 % (40-54); Hemoglobin 11.4 g/dL (13.0-16.5); Lymphocyte # 1.05 X10^3/ul (0.83-4.51); Lymphocyte % 8.1 % (19-41); Mean Corp Hgb Conc 33.8 g/dL (32-36); Mean Corpuscular Hgb 29.8 pg (27.0-32.0); Mean Platelet Vol. 9.7 fl (6.2-12.0); Monocyte# 1.07 X10^3/uL; Monocyte% 8.3 % (0-10); NRBC Flagged by Analyzer 0 % (0-5); Neutrophil # 10.66 X10^3/uL (2.7-7.7); Neutrophil % 82.4 % (47-70); Platelet Count 315 K/mm3 (150-450); RBC Distribution Width CV 13.2 % (11.6-14.6); RBC Distribution Width SD 42.9 fl (35.1-43.9); Red Blood Count 3.83 M/mm3 (4.6-6.2); White Blood Count 12.9 K/mm3 (4.4-11.0)
[2022-12-07 06:23] LABS: AST(SGOT) 21 U/L (15-37); Alanine Aminotransfer ALT/SGPT 33 U/L (16-61); Albumin, Serum 3.6 g/dL (3.2-5.0); Alkaline Phosphatase 53 U/L (45-117); Anion Gap 7 (5-15); BUN 25 mg/dL (7-18); BUN/Creat Ratio 18.8 RATIO (10-20); Calcium,Total 8.7 mg/dL (8.5-10.1); Chloride 112 mmol/L (98-107); Creatinine, Serum 1.33 mg/dL (0.70-1.30); EST Glomerular Filtration Rate 56 mL/min (>60); Est Glom Filt Rate - Afr Amer 68 mL/min (>60); Estimated Creatinine Clearance 49.47 ml/min; Globulin 3.6 g/dL (2.2-4.2); Glucose 126 mg/dL (74-106); Potassium 3.9 mmol/L (3.5-5.1); Protein, Total 7.2 g/dL (6.4-8.2); Sodium Level 144 mmol/L (136-145)
[2022-12-07] MEDS: Enalaprilat 1.25 MG/ML Vial 0.625 MG IV (06:30)
[2022-12-07 06:57] LABS: Bedside Glucose 118 mg/dL (74-106)
[2022-12-07 10:26] LABS: Hemoglobin A1c 6.3 % (3.8-5.6)
--- NOTE | 2022-12-07 10:35 | RAD_ITS ---
EXAM: FL CHOLANGIOGRAPHY AND/OR PANCREATOGRAPHY CLINICAL INDICATION: LAP DANIEL TECHNIQUE: Fluoroscopic cholangiogram and/or pancreatography of the right upper quadrant. Fluoroscopic guidance was provided by a physician. COMPARISON: No relevant prior studies available. FINDINGS: Fluoroscopic cine images were obtained in the OR while injection of contrast placed via the cystic duct. No filling defects within the visualized biliary tree to suggest retained stone. Visualization of the duodenum. Total fluoroscopy time of 40 seconds. Total dose of 15.9mGY. See operative note for additional information. RAD/Cholangiogram/ O R,Initial IMPRESSION: Normal operative cholangiogram. Electronically Signed: Alexis Pastor MD at 17:06 EDT ,
[2022-12-07] MEDS: Lactated Ringers 1,000 ML 15 ML IV (11:31)
[2022-12-07] MEDS: Bupivacaine Mpf 0.5% 30 ML VIAL (11:58)
--- NOTE | 2022-12-07 12:05 | PCM.OPRPT ---
Report of Operation Date of Procedure: 12/07/22 Pre-Operative Diagnosis: Cholecystitis Post-Operative Diagnosis: Acute on chronic cholecystitis Surgery/Procedure Performed:: Laparoscopic cholecystectomy with intraoperative cholangiogram Description of Surgical Findings:: ? Evidence of acute on chronic inflammation with numerous adhesions between the omentum and the gallbladder ? Friable gallbladder resulting in multiple inadvertent rents with spillage of bile and minute gallstones ? Cholangiogram showing free flow into the duodenum without filling defect. Duct size of normal caliber Surgeon: Markell Mitchell catapult and arresting gear officer: Markus Aucña catapult and arresting gear officer: Jodi Candelario Type of Anesthesia: General/Supplemental Anesthesiologist: Won Webster Specimen's removed: gallbladder Estimated Blood Loss (mL): 50 Description of Procedure: After proper identification in the preoperative holding area the patient was brought to the operating room where he was positioned supine on the operating room table. Preoperatively SCDs were placed and antibiotics were administered. General anesthesia was then induced. Patient's abdomen was prepped and draped in usual sterile fashion. A formal timeout was conducted to confirm both patient and the procedure. Procedure was begun with a supraumbilical incision which was extended deeply down to the level of the fascia. The fascia was elevated and incised, as well as the peritoneum. A finger sweep was performed to confirm peritoneal entry and a 12 mm balloon trocar was inserted. Pneumoperitoneum was established at 15 mmHg. 3 additional trocars were placed in the epigastrium (12 mm) and in the right upper quadrant (2 x 5 mm). Inspection of the peritoneum revealed no inadvertent injury to the viscera below. The gallbladder was visualized with severe inflammation and appeared primarily chronic at first glance. Because of this inflammation in the gallbladder with distention, it was exceptionally difficult to elevate cephalad so I used some blunt dissection to free several adhesions between the gallbladder and the omentum and then used the laparoscopic suction work checker needle to deliberately punctured the gallbladder and decompress it up some of the bile content. The gallbladder fundus was then grasped and elevated cephalad. Unfortunately on doing so with the friability of the gallbladder this traction resulted in an inadvertent rent and spillage of bile with minute gallstones along the base of the gallbladder. This contamination was promptly suctioned free of the peritoneum with the use of the laparoscopic suction work checker device. Using careful dissection the peritoneum was opened and the structures of the hepatocystic triangle were delineated. Again, while retracting the gallbladder infundibulum an inadvertent rent was made in the gallbladder wall resulting in local spillage of bile and gallstones. These were promptly suctioned free of the peritoneum or picked up with a laparoscopic grasper and delivered out of the abdomen. Once the critical view of safety was obtained, the cystic duct was singly clipped (requiring a Weck clip given the larger diameter of the cystic duct) and partially divided with a ductotomy. The proximal duct was milked of debris until there was backflow of bile. Using an Sorenson [place] clamp, a cholangiocatheter was fed into the proximal segment of the cystic duct and clamped into place. Under fluoroscopy a cholangiogram was then obtained showing a standard length (and nondilated) cystic duct flowing into a common bile duct with unobstructed antegrade flow of contrast into the duodenum. There was also retrograde flow through the common hepatic duct into the right and left hepatic ducts. Satisfied with this result, the cholangiocatheter was withdrawn and the proximal cystic duct was sealed with 2 additional Weck clips and the cystic duct was completely transected. The same process was used for the cystic artery. The gallbladder was then removed from the gallbladder fossa with the use of electrocautery. Selective electrocautery was used to obtain hemostasis in the gallbladder fossa. The gallbladder was placed in an Endo Catch bag and removed from the peritoneum. Morison's pouch was irrigated and the effluent was suctioned free of the peritoneum. Hemostasis was again confirmed. We also took time to confirm that there were no visible gallstones remaining from the earlier spillage events. Pneumoperitoneum was evacuated and the fascia of the 12 mm port sites was closed with #1Vicryl in a [id number] fashion. A total of 30 mL of anesthetic was injected at the port sites for postoperative pain control. The skin of each port site was then closed in subcuticular fashion using 4-0 Monocryl. Steri-Strips and bandages were applied as dressings. Patient tolerated the procedure well without any apparent complications. On emergence from their anesthetic the patient was taken to PACU for ongoing recovery. Grafts/Implants Used: None Complications None Admit VTE Documentation VTE Mechan Device Prophylaxis: SCD's Procedures Digestive [id number]: [id number] Laparo cholecystectomy/graph
[2022-12-07 12:58] LABS: Bedside Glucose 167 mg/dL (74-106)
--- NOTE | 2022-12-07 14:27 | PN.HOSP_ITS ---
Reason for Visit Reason for Visit: Diagnoses Other specified diabetes mellitus without complications (12/06/22) Essential (primary) hypertension (12/06/22) Acute cholecystitis (12/06/22) Subjective Subjective Patient was seen and examined today, he had a laparoscopic cholecystectomy today, at the time my examination he was able to sit up at the bedside, I discontinued his oxygen and we will monitor his pulse ox. Patient will be receiving his blood pressure medication Objective Data Objective Data Vital Signs: Vital Signs Temp Pulse Resp BP Pulse Ox O2 Del Method O2 Flow Rate 97.6 F L 66 18 150/61 H 95 Room Air 2 12/07/22 13:26 12/07/22 14:21 12/07/22 14:21 12/07/22 13:26 12/07/22 14:21 12/07/22 14:21 12/07/22 13:26 Oxygen Flow Rate (L/min) 2 Oxygen Delivery Method Room Air Weight: 79.2 kg Body Mass Index (BMI) 25.4 Intake & Output: Intake and Output for Last 24 Hours 12/05/22 12/06/22 12/07/22 23:59 23:59 23:59 Intake Total 60 / 60 2181.0 / 2181.0 Balance 60 / 60 2181.0 / 2181.0 Lab / Micro Data 12/07/22 05:31 12/07/22 05:31 Labs: Laboratory Results - last 24 hr 12/06/22 16:00: WBC 9.4, RBC 4.29 L, Hgb 12.4 L, Hct 38.1 L, MCV 88.8, MCH 28.9, MCHC 32.5, RDW Std Deviation 43.3, RDW Coeff of Tico 13.3, Plt Count 353, MPV 10.0, Immature Gran % (Auto) 1.100 H, Neut % (Auto) 65.8, Lymph % (Auto) 21.0, Jenkins % (Auto) 7.0, Eos % (Auto) 4.1, Baso % (Auto) 1.0, Absolute Neuts (auto) 6.2, Absolute Lymphs (auto) 1.98, Nucleated RBC % 0, Sodium 141, Potassium 4.1, Chloride 107, Carbon Dioxide 27.0, Anion Gap 7, BUN 31 H, Creatinine 1.34 H, Estim Creat Clear Calc 49.10, Est GFR (MDRD) Af Amer 67, Est GFR (MDRD) Non-Af 55 L, BUN/Creatinine Ratio 23.1 H, Glucose 124 H, Calcium 9.9, Total Bilirubin 0.30, AST 16, ALT 33, Alkaline Phosphatase 59, Total Protein 8.2, Albumin 4.2, Globulin 4.0, Albumin/Globulin Ratio 1.0, Lipase 152 H 12/06/22 19:53: Urine Color Yellow, Urine Clarity Clear, Urine pH 8.0, Ur Specific Viola 1.015, Urine Protein 100 H, Urine Glucose (UA) Normal, Urine Ketones Negative, Urine Occult Blood 10 H, Urine Nitrite Negative, Urine Bilirubin Negative, Urine Urobilinogen Normal, Ur Leukocyte Esterase 25 H, Urine RBC 0-5 SEEN, Urine WBC 0-5 SEEN, Ur Squamous Epith Cells 0-5 SEEN, Urine Bacteria 0 SEEN, Urine Mucus 0 SEEN 12/07/22 00:06: POC Glucose 151 H 12/07/22 05:31: WBC 12.9 H, RBC 3.83 L, Hgb 11.4 L, Hct 33.7 L, MCV 88.0, MCH 29.8, MCHC 33.8, RDW Std Deviation 42.9, RDW Coeff of Tico 13.2, Plt Count 315, MPV 9.7, Immature Gran % (Auto) 0.500, Neut % (Auto) 82.4 H, Lymph % (Auto) 8.1 L, Jenkins % (Auto) 8.3, Eos % (Auto) 0.2, Baso % (Auto) 0.5, Absolute Neuts (auto) 10.7 H, Absolute Lymphs (auto) 1.05, Nucleated RBC % 0, Sodium 144, Potassium 3.9, Chloride 112 H, Carbon Dioxide 25.0, Anion Gap 7, BUN 25 H, Creatinine 1.33 H, Estim Creat Clear Calc 49.47, Est GFR (MDRD) Af Amer 68, Est GFR (MDRD) Non- Af 56 L, BUN/Creatinine Ratio 18.8, Glucose 126 H, Hemoglobin A1c 6.3 H, Calcium 8.7, Total Bilirubin 0.20, AST 21, ALT 33, Alkaline Phosphatase 53, Total Protein 7.2, Albumin 3.6, Globulin 3.6, Albumin/Globulin Ratio 1.0 12/07/22 06:29: POC Glucose 118 H 12/07/22 12:41: POC Glucose 167 H Radiography Diagnostic Testing: Radiology Impression Abdomen/Pelvis CT 12/06/22 15:55 IMPRESSION: Possible infectious process involving the right renal collecting system, clinical correlation recommended. Over distended gallbladder with tiny gallstones. If indicated, this can be further assessed with right upper quadrant ultrasound. No acute appendicitis or bowel obstruction. Electronically Signed: Mari Pate MD at 17:04 EDT Reading Location ID and State: [employer] [facility] [employer] / [facility] , Service support , Gallbladder Ultrasound 12/06/22 17:06 IMPRESSION: Slightly over distended gallbladder with sludge and gallstone is described. Positive Rushing sign, nonspecific in the absence of additional signs of acute cholecystitis. However, due to increased distention, if clinical concern for acute cholecystitis remains, recommend dedicated HIDA scan. Remainder of the right upper quadrant ultrasound. Electronically Signed: Mari Pate MD at 19:02 EDT , Physical Exam Const alert, oriented x3, no apparent distress, average body habitus and healthy appearing General Appearance: cooperative, well kempt and well developed Orientation / Consciousness: awake, oriented to person, oriented to place and oriented to time HEENT normocephalic, head/scalp atraumatic and moist oral mucous membranes Eyes PERRL, EOMs intact bilaterally and conjunctivae normal Neck supple, no JVD, thyroid normal and no carotid bruits General: trachea midline Resp normal respiratory effort, no retractions, no use of accessory muscles and clear to auscultation bilaterally Auscultation: Negative for rales, rhonchi or wheezes Cardio regular rate, regular rhythm, S1 normal heart sound, S2 normal heart sound, no murmurs, no rub and no gallops Extremity no clubbing, cyanosis or edema Skin no rashes or lesions noted General Skin Exam: no breakdown Neuro oriented x3, CN's II-XII intact bilaterally, moves all extremities, no focal motor deficits and no sensory deficits noted Sensorium / Orientation: awake and alert Speech: speech normal Psych affect normal Assessment & Plan Assessment/Plan (1) Hypertension: QUALIFIERS: Hypertension type: unspecified Qualified Code(s): I10 - Essential (primary) hypertension PLAN: Plan 1. Essential hypertension-patient's blood pressures improved, he will resume losartan 25 mg daily for blood pressure control #2 type 2 diabetes-patient will resume his glipizide and losartan after discharge #3 hypothyroidism-patient is on Synthroid, monitor, evaluate, assess, treat #4 hyperlipidemia-patient is on fenofibrate and Zetia, monitor, evaluate, assess, treat #5 status post laparoscopic cholecystectomy-I discussed his care with general surgery today. Patient appears medically stable at this time Total clinical time spent by myself addressing the patient's medical issues, reviewing all of his data, and collaborating with the patient's care team: 25 minutes Charges/Coding Visit Charges Inpatient E&M: [id number] [facility] Hosp L1
[2022-12-07] MEDS: Losartan Potassium 25 MG Tablet PO (15:00)
[2022-12-07] MEDS: oxyCODONE 5 MG Tablet PO (15:00)
[2022-12-07] MEDS: Acetaminophen 500 MG Tablet 1000 MG PO ×2 (15:00→21:49)
[2022-12-07 16:37] LABS: Bedside Glucose 148 mg/dL (74-106)
--- NOTE | 2022-12-07 20:18 | CPS ---
Patient put on 2L oxygen H.S. due to not wanting a hospital CPAP to use
[2022-12-07 22:20] LABS: Bedside Glucose 153 mg/dL (74-106)
--- NOTE | 2022-12-08 | GALL_PTH ---
PATIENT: SINDY GREENFIELD LOC: MS3 U#:[id number] AGE/SX: 72/M ROOM: [facility] RE12/06/[address]: Dr. Markell Mitchell MD : 1950 BED: 1 DIS: 12/08/2022 SPEC #: [id number] RECD: 12/08/22 11:49 STATUS: TAMI BAIRD #: [id number] BEAU: 12/08/22 00:[address]: Markell Mitchell DEPT: SURGICAL PATHOLOGY RECD BY: Yung Munoz ENTERED: 12/08/22 11:49 SP TYPE: DAISY OAK[place] DR: DO Dr. Gil Bansal DO Tissues: Gallbladder, NOS Procedures: Surgery Specimen Level III HEADER OPERATION: Laparoscopic cholecystectomy with IOC PRE-OP DIAGNOSIS: Acute cholecystitis TISSUE SUBMITTED: Gallbladder MICROSCOPIC DIAGNOSIS Gallbladder, cholecystectomy: Acute and chronic cholecystitis and cholelithiasis. AM:frederick 12/09/2022 MICROSCOPIC DESCRIPTION Slides are reviewed. GROSS DESCRIPTION Received is one container labeled with the patient's name and designated gallbladder. The specimen consists of a gallbladder measuring 9.0 cm in length and up to 3.5 cm in diameter. The external surface is pink-puga, smooth and glistening for the most part. Focally it is granular, hemorrhagic and contains cautery artifact. The gallbladder does not contain any bile and contains six yellowish-orange, ovoid stones measuring in aggregate 2.5 x 2.5 x 1.0 cm and 0.2 to 1.5 cm in greatest dimension. The gallbladder wall measures up to 1.0 cm in thickness. Increased amount of subserosal fat is also noted. Mortar Carrier sections from the gallbladder and the cystic duct are submitted in one cassette. / SJ:frederick 12/08/2022 TC:2 CPT: 22030
[2022-12-08 01:05] VITALS: BP 137/66; PULSE 79; RESP 18; TEMP 36.9; O2SAT 94
[2022-12-08 05:25] VITALS: BP 145/70; PULSE 74; RESP 16; TEMP 36.4; O2SAT 95
[2022-12-08] MEDS: Acetaminophen 500 MG Tablet 1000 MG PO (05:39)
[2022-12-08 06:28] LABS: Bedside Glucose 121 mg/dL (74-106)
[2022-12-08 08:57] VITALS: BP 146/68; PULSE 80; RESP 18; TEMP 36.7; O2SAT 94
[2022-12-08] MEDS: Losartan Potassium 25 MG Tablet PO (09:00)
--- NOTE | 2022-12-08 09:13 | DCINST_ITS ---
Discharge Instructions Diet Discharge Diet: Light diet - advance as tolerated Activity Discharge Activity: May Not Drive (3-5 days) and May Shower (tomorrow) Lifting Restrictions: 15 pounds for 2 weeks Dressing / Incision Call your doctor if your incision/area has: Continuous Slow Oozing, Sudden Increased Bleeding, Increased Pain/ Swelling, Increased Redness, Foul Smelling Discharge and Swelling at the incision site Call your doctor if you observe: Fever of 101 or Higher Suture Line Care: Avoid Pulling/Pushing and Avoid Pinching/Bending Remove Dressing in: 1 day Cleanse incision/area with: Soap & Water Additional Dressing/Incision Instructions:: Leave steri-strips in place for 1 week Follow Up Care Please Follow Up With: Markell Mitchell MD When: Please call our office to schedule a follow-up appointment for 7-10 days at [phone] Test Results: Test results from this visit will be discussed in further detail at your follow- up appointment, if applicable. Discharge Plan Admission Admit Date/Time: 12/06/22 20:28 Primary Reason for Your Visit: Acute cholecystitis Attending Provider: Markell Mitchell Primary Care Provider: Love Crowley Consulting Providers: Gil Mcclelland Instructions Additional Instructions / Restrictions: Recommend taking Tylenol for pain/discomfort You will be sent home with a small prescription for Ultram, which is a pain medication Recommend no lifting greater than 15 pounds for 2 weeks You may remove the plastic dressings tomorrow You will shower tomorrow Leave the steri-strips in place Follow-up with Dr. Mitchell in 7-10 days Discharge Orders/Prescriptions Prescriptions: New tramadol 50 mg Tablet 50 mg PO Q6H PRN PRN (Reason: Pain Score 4-10) 2 Days Qty: 8 0RF Continued levothyroxine 75 MCG tablet 100 mcg PO DAILY metformin 500 MG tablet 1,000 mg PO BID Centrum Silver 1 EACH tablet 1 ea PO DAILY potassium citrate [Urocit-K 10] 10 MEQ tablet extended release 10 meq PO DAILY Fish Oil 500 MG capsule,delayed release(DR/EC) 1,000 mg PO BID fenofibrate nanocrystallized 145 tablet 145 mg PO DAILY Patient Comments: losartan 25 mg tablet 25 mg PO DAILY glipizide 5 mg tablet 2.5 mg PO DINNER ezetimibe 10 mg tablet 10 mg PO DAILY PreserVision AREDS-2 250-90-40-1 mg capsule 1 tab PO BID Referrals / Follow Up: Love Crowley DO [Primary Care Provider] - Disposition Disposition (needs filled in before D/C Order can be placed): Home, Self Care
--- NOTE | 2022-12-08 09:16 | DS.PCM_ITS ---
Providers Date of Admission: 12/06/22 Primary Care Physician: Love Crowley DO Reason For Visit: ACUTE CHOLECYSTITIS Diagnosis Discharge Diagnosis (1) Hypertension: Status: Chronic Code(s): I10 - Essential (primary) hypertension Qualifiers: Hypertension type: unspecified Qualified Code(s): I10 - Essential (primary) hypertension Medications at Discharge Home Medications levothyroxine 75 mcg tablet 100 mcg PO DAILY THYROID 01/08/13 metformin 500 mg tablet,extended release 24 hr 1,000 mg PO BID DIABETES 01/08/13 swvgemmj-qai-xpsjr acid 0.4 mg-lycopene 300 mcg-lutein 250 mcg tablet (Centrum Silver) 1 ea PO DAILY SUPPLEMENT' 01/08/13 omega 3-dha 60 mg-epa 90 mg-fish oil 500 mg capsule, delayed release (Fish Oil) 1,000 mg PO BID supplement 05/24/15 potassium citrate 10 mEq (1,080 mg) tablet,extended release (Urocit-K 10) 10 meq PO DAILY SUPPLEMENT 05/24/15 fenofibrate nanocrystallized 145 mg tablet 145 mg PO DAILY CHOLESTEROL 10/19/17 ezetimibe 10 mg tablet 10 mg PO DAILY 12/06/22 glipizide 5 mg tablet 2.5 mg PO DINNER diabetes 12/06/22 losartan 25 mg tablet 25 mg PO DAILY 12/06/22 vit C 250 mg-vit E 90 mg-zinc 40 mg-copper 1 gc-rtlscj-jyfyru capsule (PreserVision AREDS-2) 1 tab PO BID eye health 12/06/22 tramadol 50 mg tablet 50 mg PO Q6H PRN PRN Pain Score 4-10 2 days #8 tabs 12/08/22 Hospital Course Operations cholecystecomy Summary of Care Provided Minutes Spent on Discharge: 20 Hospital Course: Patient is a 72 y/o M who presented with an acute onset of right upper quadrant pain following eating lunch associated with nausea and vomiting. CT scan of the ab/pel and RUQ u/s demonstrated some thickening of the gallbladder wall. Dr. Mitchell performed a laparoscopic cholecystectomy with intraoperative cholangiogram on 12/07/22. Patient tolerated the procedure well. Upon discharge, patient noted incisional discomfort. He denies nausea, vomiting, fever. He is tolerating a regular diet well. Physical Exam Const alert, oriented x3 and no apparent distress GI GI Narrative: Abdomen- incisions c/d/i. No erythema or infection noted. Slight tenderness at the incision sites Weight / BMI Weight Weight: 174 lb 9.698 oz Body Mass Index (BMI) 25.4 ABG / Lab / Microbiology Data 12/07/22 05:31 12/07/22 05:31 Laboratory: Laboratory Results - last 24 hr 12/07/22 05:31: Hemoglobin A1c 6.3 H 12/07/22 12:41: POC Glucose 167 H 12/07/22 16:19: POC Glucose 148 H 12/07/22 21:47: POC Glucose 153 H 12/08/22 05:33: POC Glucose 121 H Radiography Diagnostic Testing: Radiology Impression Cholangiogram 12/07/22 10:35 IMPRESSION: Normal operative cholangiogram. Electronically Signed: Alexis Pastor MD at 17:06 EDT Reading Location ID and State: [id number] Tel , Service support , D/C Instructions Discharge Diet: Light diet - advance as tolerated Call your doctor if your incision/area has: Continuous Slow Oozing, Sudden Increased Bleeding, Increased Pain/ Swelling, Increased Redness, Foul Smelling Discharge and Swelling at the incision site Call your doctor if you observe: Fever of 101 or Higher Suture Line Care: Avoid Pulling/Pushing and Avoid Pinching/Bending Cleanse incision/area with: Soap & Water Additional Dressing/Incision Instructions: Leave steri-strips in place for 1 week Please Follow Up With: Markell Mitchell MD When: Please call our office to schedule a follow-up appointment for 7-10 days at [phone] Meaningful Use Info Meaningful Use Diagnoses (Choose all that apply): None applicable Discharge Plan Admission Admit Date/Time: 12/06/22 20:28 Primary Reason for Your Visit: Acute cholecystitis Attending Provider: Markell Mitchell Primary Care Provider: Love Crowley Consulting Providers: Gil Mcclelland Instructions Additional Instructions / Restrictions: Recommend taking Tylenol for pain/discomfort You will be sent home with a small prescription for Ultram, which is a pain medication Recommend no lifting greater than 15 pounds for 2 weeks You may remove the plastic dressings tomorrow You will shower tomorrow Leave the steri-strips in place Follow-up with Dr. Mitchell in 7-10 days Discharge Orders/Prescriptions Prescriptions: New tramadol 50 mg Tablet 50 mg PO Q6H PRN PRN (Reason: Pain Score 4-10) 2 Days Qty: 8 0RF Continued levothyroxine 75 MCG tablet 100 mcg PO DAILY metformin 500 MG tablet 1,000 mg PO BID Centrum Silver 1 EACH tablet 1 ea PO DAILY potassium citrate [Urocit-K 10] 10 MEQ tablet extended release 10 meq PO DAILY Fish Oil 500 MG capsule,delayed release(DR/EC) 1,000 mg PO BID fenofibrate nanocrystallized 145 tablet 145 mg PO DAILY Patient Comments: losartan 25 mg tablet 25 mg PO DAILY glipizide 5 mg tablet 2.5 mg PO DINNER ezetimibe 10 mg tablet 10 mg PO DAILY PreserVision AREDS-2 250-90-40-1 mg capsule 1 tab PO BID Referrals / Follow Up: Love Crowley DO [Primary Care Provider] - Disposition Disposition (needs filled in before D/C Order can be placed): Home, Self Care
--- NOTE | 2022-12-08 09:34 | CASEMGMT ---
BONNIE MELENDREZ Assessment: Face to Face with pt for initial transition planning/care coordination assessment. RN ANEESH introduced self and role at [facility], pt voices understanding and consents to assessment. Pt is A/O x4 and answers all questions appropriately at this time. Pt dressed and sitting in chair with present in room in no distress. Pt states he is ready to go home. Care providers, pharmacy, and demographics verified/updated. Admitting Dx: acute cholecystitis PCP:Keo Specialists:alex Barrett; bassem Archibald [facility]erred [facility]acy: [facility] Prescription Benefit: yes LNOK: Anabelle Ferrell, Living Arrangements: Pt lives with in a single story home with 2 steps to enter. Pt reports he is I in ADL's and denies concerns at home. Transportation: Pt drives self and denies concerns with transportation. DME/HHC/SNF: Pt has a CPAP, BGM with sufficient supplies of test strips and lancets. Pt does not use AD for ambulation. Pt denies hx of HHC or SNF stays. Pt states no concerns with going home at time of dc. Pt states no further concerns/needs. CM to follow. Advised pt to ask CM if any further question/concerns/needs arise, voices understanding. Pt Goal: Home Plan: Home
== END 2022-12-08 10:06 | disposition home or self-care (01) | DRG 419 ==
LOC: ED 16:49 → MS3 21:24
PROVIDERS: Anesthesiology; Physician Assistant; Admitting Provider Surgery; Emergency Provider Emergency Medicine; PCP Family Medicine; Visit Provider Surgery
PROC: 0FT44ZZ Resection of Gallbladder, Percutaneous Endoscopic Approach (ICD-10-PCS; CPT 47610; principal; 2022-12-07 09:15)
DX: K80.00 Calculus of gallbladder with acute cholecystitis without obstruction (principal); E03.9 Hypothyroidism, unspecified; E11.22 Type 2 diabetes mellitus with diabetic chronic kidney disease; N18.31 Chronic kidney disease, stage 3a; I12.9 Hypertensive chronic kidney disease with stage 1 through stage 4 chronic kidney disease, or unspecified chronic kidney disease; I16.0 Hypertensive urgency; K82.8 Other specified diseases of gallbladder; E78.5 Hyperlipidemia, unspecified; Z79.84 Long term (current) use of oral hypoglycemic drugs
CPT/HCPCS: 36415; 74177; 74300; 76000; 76705; 80053; 81001; 82962; 83036; 83690; 85025; 88304; 93005; 94668; 99284; J7030; J7120; Q9967; A4216; J2405; J3490

== ENCOUNTER → 2022-12-17 | Outpatient (CLI) | payer MEDICARE, OTHER, SELFPAY ==
[2022-12-17 07:57] LABS: AST(SGOT) 9 U/L (15-37); Alanine Aminotransfer ALT/SGPT 23 U/L (16-61); Albumin, Serum 3.7 g/dL (3.2-5.0); Alkaline Phosphatase 60 U/L (45-117); Anion Gap 5 (5-15); BUN 29 mg/dL (7-18); BUN/Creat Ratio 22.5 RATIO (10-20); Chloride 110 mmol/L (98-107); Creatinine, Serum 1.29 mg/dL (0.70-1.30); EST Glomerular Filtration Rate 58 mL/min (>60); Est Glom Filt Rate - Afr Amer 70 mL/min (>60); Globulin 3.6 g/dL (2.2-4.2); Glucose 109 mg/dL (74-106); Potassium 4.1 mmol/L (3.5-5.1); Protein, Total 7.3 g/dL (6.4-8.2); Sodium Level 140 mmol/L (136-145)
[2022-12-17 08:17] LABS: PSA,Total- Diagnostic < 0.01 ng/mL (0.0-4.0)
[2022-12-17 08:32] LABS: Hemoglobin A1c 6.2 % (3.8-5.6)
== END | disposition home or self-care (01) ==
LOC: LAB 06:29
PROVIDERS: Internal Medicine Endocrinology, Diabetes & Metabolism; PCP Family Medicine; Referring Provider Urology; Visit Provider Urology
DX: E11.21 Type 2 diabetes mellitus with diabetic nephropathy (principal); C61 Malignant neoplasm of prostate
CPT/HCPCS: 36415; 80053; 83036; 84153

== ENCOUNTER 2023-02-16 12:21 | Day surgery (SDC) | payer MEDICARE, OTHER, SELFPAY ==
--- NOTE | 2023-02-16 12:40 | PCM.HP.STD ---
HPI - General General Date of Admission: 02/16/23 Date of Service: 02/16/23 Chief Complaint: Screening colonoscopy HPI Narrative SINDY GREENFIELD, is a 72 M who presents today for screening colonoscopy. He does not have any abdominal pain. He is not have any nausea, vomiting or diarrhea. He does not have any chest pain or shortness of breath. He is not having any weakness. He is not having any headache or dizziness. All other 16 review systems are negative except as per past mentioned HPI. [facility] Medical History BPH (benign prostatic hyperplasia) Cancer Cholecystitis Diabetes mellitus Dietary restriction Difficulty swallowing High cholesterol History of renal disease Hypertension Hypothyroid Leg cramping Loss of hearing Neuropathy Non-smoker Sleep apnea treated with continuous positive airway pressure (CPAP) Wears glasses Home Medications levothyroxine 75 mcg tablet 100 mcg PO DAILY THYROID 01/08/13 [History Last Taken 02/15/23] metformin 500 mg tablet,extended release 24 hr 1,000 mg PO BID DIABETES 01/08/13 [History Last Taken 02/15/23] wrrkmkdt-uqg-bpeex acid 0.4 mg-lycopene 300 mcg-lutein 250 mcg tablet (Centrum Silver) 1 ea PO DAILY SUPPLEMENT' 01/08/13 [History Last Taken 02/15/23] omega 3-dha 60 mg-epa 90 mg-fish oil 500 mg capsule, delayed release (Fish Oil) 1,000 mg PO BID supplement 05/24/15 [History Last Taken 02/15/23] potassium citrate 10 mEq (1,080 mg) tablet,extended release (Urocit-K 10) 10 meq PO DAILY SUPPLEMENT 05/24/15 [History Last Taken 02/15/23] fenofibrate nanocrystallized 145 mg tablet 145 mg PO DAILY CHOLESTEROL 10/19/17 [History Last Taken 02/15/23] ezetimibe 10 mg tablet 10 mg PO DAILY 12/06/22 [History Last Taken 02/15/23] glipizide 5 mg tablet 2.5 mg PO DINNER diabetes 12/06/22 [History Last Taken 02/15/23] losartan 25 mg tablet 25 mg PO DAILY 12/06/22 [History Last Taken 02/15/23] vit C 250 mg-vit E 90 mg-zinc 40 mg-copper 1 jw-ulkjqg-gwctom capsule (PreserVision AREDS-2) 1 tab PO BID eye health 12/06/22 [History Last Taken 02/15/23] ascorbic acid (vitamin C) 500 mg tablet,extended release (C-500) 500 mg PO DAILY 02/11/23 [History Last Taken 02/15/23] cholecalciferol (vitamin D3) 50 mcg (2,000 unit) capsule (D3-2000) 50 mcg PO DAILY 02/11/23 [History Last Taken 02/15/23] cyanocobalamin-liver extract tablet 1 tab PO DAILY 02/11/23 [History Last Taken 02/15/23] Allergy/AdvReac Type Severity Reaction Status Date / Time Zvlscxa-ZPY-DwB Reductase AdvReac leg cramps Verified 02/16/23 12:26 Inhibitor [Upcvpby-Xbw-Ngx Reductase Inhibitor] Surgical History H/O prostatectomy History of tonsillectomy and adenoidectomy Hx of colonoscopy Hx of total knee replacement S/P laparoscopic cholecystectomy Social History (Updated 01/18/23 @ 08:24 by Mindi Cohen) household members: spouse current occupational status: retired Smoking Status: Never smoker ROS Constitutional Constitutional: Denies chills, fatigue or fever(s) Gastrointestinal Gastrointestinal: Reports abdominal pain, nausea and vomiting Physical Exam Const alert, oriented x3, no apparent distress, average body habitus and healthy appearing General Appearance: cooperative, well kempt and well developed Orientation / Consciousness: awake, oriented to person, oriented to place and oriented to time HEENT normocephalic, head/scalp atraumatic and moist oral mucous membranes Eyes PERRL, EOMs intact bilaterally and conjunctivae normal Neck supple, no JVD, thyroid normal and no carotid bruits General: trachea midline Resp normal respiratory effort, no retractions, no use of accessory muscles and clear to auscultation bilaterally Auscultation: Negative for rales, rhonchi or wheezes Cardio regular rate, regular rhythm, S1 normal heart sound, S2 normal heart sound, no murmurs, no rub and no gallops Extremity no clubbing, cyanosis or edema Skin no rashes or lesions noted General Skin Exam: no breakdown Neuro oriented x3, CN's II-XII intact bilaterally, moves all extremities, no focal motor deficits and no sensory deficits noted Sensorium / Orientation: awake and alert Speech: speech normal Psych affect normal Assessment & Plan Assessment/Plan (1) Encounter for screening for malignant neoplasm of colon: PLAN: He was explained alternatives, risk, benefits including not withstanding bleeding, infection, sepsis, perforation, need for emergent surgery . He will have an ASA of 3.
[2023-02-16 12:57] VITALS: BP 159/71; PULSE 66; RESP 17; TEMP 36.2; O2SAT 100; BMI 25.9
[2023-02-16] MEDS: Lactated Ringers 1,000 ML 15 ML IV (12:57)
[2023-02-16 13:29] LABS: Bedside Glucose 99 mg/dL (74-106)
[2023-02-16 14:05] VITALS: BP 116/61; BP 159/71; PULSE 66; RESP 18; TEMP 36.4; O2SAT 99
--- NOTE | 2023-02-16 14:07 | OP.CCLET_ITS ---
02/16/2023 Teresa Morejon Re : Colonoscopy procedure for Elia Ferrell Dear Dejuan This procedure was performed on Thursday, February 16, 2023. My impressions and recommendations are as follows: Impressions : - Diverticulosis in the recto-sigmoid colon and in the sigmoid colon. - The examination was otherwise normal on direct and retroflexion views. - No specimens collected. Recommendations : - Discharge patient to home. - Resume previous diet. - Continue present medications. - Repeat colonoscopy in 10 years for screening purposes. My findings are described in the full procedure note, which is enclosed. If I can be of further assistance, please feel free to contact me at . Sincerely, Yash Estrada, 02/16/2023 2:07:08 PM This report has been signed electronically.
--- NOTE | 2023-02-16 14:07 | OP.COLON_ITS ---
Patient Name: Elia Ferrell Procedure Date: 02/16/2023 1:43 PM Date of : 1950 Age: 72 Procedure: Colonoscopy Indications: Screening for colorectal malignant neoplasm Providers: Yash Estrada DO Medicines: Monitored Anesthesia Care Patient Profile: This is a 72 year old male. Refer to note in patient chart for documentation of history and physical. Last Colonoscopy: more than 10 years ago. Complications: No immediate complications. Procedure: Pre-Anesthesia Assessment: - Prior to the procedure, a History and Physical was performed, and patient medications and allergies were reviewed. The patient is competent. The risks and benefits of the procedure and the sedation options and risks were discussed with the patient. All questions were answered and informed consent was obtained. Patient identification and proposed procedure were verified by the physician. Mental Status Examination: alert and oriented. Airway Examination: normal oropharyngeal airway and neck mobility. Respiratory Examination: clear to auscultation. CV Examination: normal. Prophylactic Antibiotics: The patient does not require prophylactic antibiotics. Prior Anticoagulants: The patient has taken no anticoagulant or antiplatelet agents. After reviewing the risks and benefits, the patient was deemed in satisfactory condition to undergo the procedure. The anesthesia plan was to use monitored anesthesia care (MAC). Immediately prior to administration of medications, the patient was re-assessed for adequacy to receive sedatives. The heart rate, respiratory rate, oxygen saturations, blood pressure, adequacy of pulmonary ventilation, and response to care were monitored throughout the procedure. The physical status of the patient was re-assessed after the procedure. After I obtained informed consent, the scope was passed under direct vision. Throughout the procedure, the patient's blood pressure, pulse, and oxygen saturations were monitored continuously. The colonoscope was introduced through the anus and advanced to the cecum, identified by appendiceal orifice and ileocecal valve. The colonoscopy was performed without difficulty. The patient tolerated the procedure well. The quality of the bowel preparation was adequate. The ileocecal valve, appendiceal orifice, and rectum were photographed. Scope In: 1:49:22 PM Scope Withdrawal Time 0 hours 8 minutes 34 seconds Scope Out: 2:01:40 PM Total Procedure Duration Time 0 hours 12 minutes 18 seconds Findings: The perianal and digital rectal examinations were normal. Multiple small-mouthed diverticula were found in the recto-sigmoid colon and sigmoid colon. The exam was otherwise without abnormality on direct and retroflexion views. Impression: - Diverticulosis in the recto-sigmoid colon and in the sigmoid colon. - The examination was otherwise normal on direct and retroflexion views. - No specimens collected. Recommendation: - Discharge patient to home. - Resume previous diet. - Continue present medications. - Repeat colonoscopy in 10 years for screening purposes. Procedure Code(s): --- Professional --- G0121, Colorectal cancer screening; colonoscopy on individual not meeting criteria for high risk CPT copyright 2021 [employer]. All rights reserved. The codes documented in this report are preliminary and upon banbury mixer operator review may be revised to meet current compliance requirements. Yash Estrada DO 02/16/2023 2:07:08 PM This report has been signed electronically. Number of Addenda: 0 Note Initiated On: 02/16/2023 1:43 PM
[2023-02-16 14:10] VITALS: BP 112/64; BP 159/71; PULSE 70; RESP 18; O2SAT 98
[2023-02-16 14:15] VITALS: BP 121/65; BP 159/71; PULSE 69; RESP 18; O2SAT 96
[2023-02-16 14:20] VITALS: BP 120/68; BP 159/71; PULSE 68; RESP 18; TEMP 36.3; O2SAT 99
[2023-02-16 14:44] VITALS: BP 159/71
== END 2023-02-16 14:45 | disposition home or self-care (01) ==
LOC: EN 12:22 → AC 12:24
PROVIDERS: PCP Nurse Practitioner Family; Referring Provider Nurse Practitioner Family; Visit Provider Internal Medicine Gastroenterology
PROC: 0DJD8ZZ Inspection of Lower Intestinal Tract, Via Natural or Artificial Opening Endoscopic (ICD-10-PCS; CPT 45378; principal; 2023-02-16 13:25)
DX: Z12.11 Encounter for screening for malignant neoplasm of colon (principal); E11.40 Type 2 diabetes mellitus with diabetic neuropathy, unspecified; K57.30 Diverticulosis of large intestine without perforation or abscess without bleeding; E78.00 Pure hypercholesterolemia, unspecified; I10 Essential (primary) hypertension; E03.9 Hypothyroidism, unspecified; Z79.890 Hormone replacement therapy; Z79.899 Other long term (current) drug therapy; Z79.84 Long term (current) use of oral hypoglycemic drugs; K81.9 Cholecystitis, unspecified; Z90.49 Acquired absence of other specified parts of digestive tract
CPT/HCPCS: G0121; 82962; J7120; J2405

== ENCOUNTER → 2023-03-15 | Outpatient (CLI) | payer MEDICARE, OTHER, SELFPAY ==
[2023-03-15 08:41] LABS: Hemoglobin A1c 5.9 % (3.8-5.6)
[2023-03-15 09:14] LABS: ALB/GLOB Ratio 1.1 RATIO (0.9-2.4); AST(SGOT) 16 U/L (15-37); Alanine Aminotransfer ALT/SGPT 26 U/L (16-61); Albumin, Serum 3.7 g/dL (3.2-5.0); Alkaline Phosphatase 52 U/L (45-117); Anion Gap 5 (5-15); BUN 30 mg/dL (7-18); BUN/Creat Ratio 23.3 RATIO (10-20); CPK Total, Creatine Kinase 208 U/L (39-308); Calcium,Total 8.8 mg/dL (8.5-10.1); Chloride 107 mmol/L (98-107); Cholesterol 145 mg/dL (200); Creatinine, Serum 1.29 mg/dL (0.70-1.30); EST Glomerular Filtration Rate 58 mL/min (>60); Est Glom Filt Rate - Afr Amer 70 mL/min (>60); Globulin 3.4 g/dL (2.2-4.2); Glucose 117 mg/dL (74-106); High Density Lipoprotein 31 mg/dL; Potassium 4.1 mmol/L (3.5-5.1); Protein, Total 7.1 g/dL (6.4-8.2); Sodium Level 138 mmol/L (136-145); Thyroid Stim Hormone (TSH) 3.98 uIU/mL (0.358-3.74); Triglycerides 176 mg/dL; Very Low Density Lipoprotein 35 mg/dL (5-40)
[2023-03-15 11:21] LABS: Microalbumin:Creatinine Ratio 204.5 mg/g CRE (<30 mg/g CRE)
== END | disposition home or self-care (01) ==
LOC: LAB 07:41
PROVIDERS: PCP Nurse Practitioner Family; Referring Provider Internal Medicine Endocrinology, Diabetes & Metabolism; Visit Provider Internal Medicine Endocrinology, Diabetes & Metabolism
DX: E11.21 Type 2 diabetes mellitus with diabetic nephropathy (principal); E78.2 Mixed hyperlipidemia; E03.8 Other specified hypothyroidism
CPT/HCPCS: 36415; 80053; 80061; 82043; 82550; 82570; 83036; 84443

== ENCOUNTER → 2023-04-06 | Outpatient (CLI) | payer MEDICARE, OTHER, SELFPAY ==
--- OUTSIDE RECORDS SUMMARY | 2023-04-06 09:52 | XMS RPT_ITS | CCD ---
Author Name Unknown Address [address] [place] [address] Organization [facility] Care Team Providers Care Vice President Sales And Marketing Name Role Phone Alva SOLER, David Lincoln Primary Care Provider Allergies Allergy Classification Reported Allergen(s) Allergy Type Date of Onset Reaction(s) Facility (2 sources) atorvastatin Drug Allergy 1 Other: See Comments [facility] (2 sources) Dust Propensity to adverse reactions 5 Intolerance [facility] Work Phone: (2 sources) HMG-CoA reductase inhibitor Drug Intolerance 4 Other: See Comments [facility] (2 sources) Niacin Drug Allergy 7 GI Upset [facility] Work Phone: (2 sources) Pravastatin Drug Allergy 1 Other: See Comments [facility] (2 sources) rosuvastatin Drug Allergy 1 Other: See Comments [facility] (2 sources) Simvastatin Drug Allergy 1 Other: See Comments [facility] (2 sources) Homeopathic Products Propensity to adverse reactions 5 Intolerance [facility] Work Phone: Medications Completed/Discontinued Medications Medication Drug Class(es) Dates Sig (Normalized) Sig (Original) aspirin 81 mg chewable tablet (2 sources) Platelet Aggregation Inhibitor, Nonsteroidal Anti-inflammatory Drug Start: 11-18-2010 take 1 tablet by mouth once daily aspirin (BABY ASPIRIN) 81 mg ORAL chewable tablet Indications: Type II or unspecified type diabetes mellitus without mention of complication, not stated as uncontrolled , Other and unspecified hyperlipidemia , Essential hypertension, benign Take 1 tablet by mouth once daily. 0 11/18/2010 Active Problems Problem Classification Problem Date Documented Da te Episodic/Chronic Diabetes mellitus with complications (2 sources) Peripheral neuropathy due to type 2 diabetes mellitus; Translations: [Type 2 diabetes mellitus with diabetic polyneuropathy] Onset: 01-02-2014 01-02-2014 Chronic Diabetes mellitus without complication (3 sources) Type 2 diabetes mellitus without complication; Translations: [Type 2 diabetes mellitus without complications] Onset: 03-25-2018 09-24-2020 Chronic Disorders of lipid metabolism (4 sources) Mixed hyperlipidemia; Translations: [Mixed hyperlipidemia] Onset: 05-13-2015 05-13-2015 Chronic Essential hypertension (2 sources) Benign essential hypertension; Translations: [Essential (primary) hypertension] 03-31-2005 Chronic Residual codes; unclassified (2 sources) Obstructive sleep apnea syndrome; Translations: [Obstructive sleep apnea (adult) (pediatric)] Onset: 01-28-2015 03-31-2021 Chronic Thyroid disorders (2 sources) Hypothyroidism; Translations: [Hypothyroidism, unspecified] Onset: 09-16-2010 09-16-2010 Chronic Results Test Name Value Interpretation Reference Range Facil ity Encounters Encounter Date Encounter Type Care Provider Facility Start: 09-09-2021 Refill David Calle MD Work Phone: [facility] Procedures Date Procedure Procedure Detail Performing Clinician Start: 06-21-2020 Adult depression screening assessment David Calle MD Work Phone: Start: 11-20-2011 Colonoscopy Jovon Calle MD Work Phone: Plan of Treatment Date Care Activity Detail Author Start: 04-10-2022 Hepatitis C antibody , confirmatory test DILATED RETINAL EXAM [facility] Start: 03-26-2022 3 comp foot exam completed DIABETIC FOOT EXAM [facility] Start: 03-26-2022 ANNUAL PCP 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 ANNUAL PCP TEAM CHRONIC DISEASE VISIT [facility] Start: 03-26-2022 COVID-19 VACCINE (#1) COVID-19 VACCI NE (#1) [facility] Immunizations Immunization Date Immunization Notes Care Provider Fa alex 09-02-2011 tetanus toxoid, reduced diphtheria toxoid, and acellular pertussis vaccine, adsorbed David Calle MD Work Phone: [facility] 10-30-1995 diphtheria and tetan us toxoids, adsorbed for pediatric use David Calle MD Work Phone: [facility] Work Phone: 02-18-1993 hepatitis B vaccine, adult dosage David Calle MD Work Phone: [facility] Work Phone: 08-25-1983 diphtheria and tetan us toxoids, adsorbed for pediatric use David Calle MD Work Phone: [facility] Work Phone: 11-14-1973 diphtheria and tetan us toxoids, adsorbed for pediatric use David Calle MD Work Phone: [facility] Work Phone: 11-12-1973 diphtheria and tetan us toxoids, adsorbed for pediatric use David Calle MD Work Phone: [facility] Work Phone: 05-20-1959 trivalent poliovirus vaccine, live, oral David Calle MD Work Phone: [facility] Work Phone: 04-12-1959 diphtheria and tetan us toxoids, adsorbed for pediatric use David Calle MD Work Phone: [facility] Work Phone: 12-09-1956 trivalent poliovirus vaccine, live, oral David Calle MD Work Phone: [facility] Work Phone: 07-31-1955 diphtheria and tetan us toxoids, adsorbed for pediatric use David Calle MD Work Phone: [facility] Work Phone: 09-30-1954 diphtheria and tetan us toxoids, adsorbed for pediatric use David Calle MD Work Phone: [facility] Work Phone: 08-19-1954 diphtheria and tetan us toxoids, adsorbed for pediatric use David Calle MD Work Phone: [facility] Work Phone: Payers Date Payer Category Payer Private Health Insurance [employer] HU[employer]NA MEDICARE SUPPLEMENT [id number] 2019-Present [phone] [address] [address] [place] [address] Indemnity [id number] 2014 Medicare MEDICARE MEDICAR E A AND B [id number] 2014-Present [phone] [place] [address] Medicare [id number] Social History Date Type Detail Facility Tobacco smoking stat [place] Never smoked tobacco [facility] Start: 12-31-2020 Alcohol intake 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 Dx: Type 2 DM - Uncontrolled E11.65 Insulin: No Start: 05-08-2019 Note 09-09-2021 Telephone Encounter - KOFI Cooley - 09/09/2021 9:46 AM EDTTelephone Encounter - Kristi Camacho - 09/09/2021 9:37 AM EDT Note Date & Type Note Facility 09-09-2021 Miscellaneous Notes AISLINN 03/26/2021 Appointment scheduled for 09/29/2021 Please advise. Thank you. KOFI Cooley Pharmacy verified in Epic Patient has been identified by name and date of : Yes Patient aware RX will be sent to pharmacy. No need to notify patient. Patient phones for refill(s): Pending Prescriptions Disp Refills GLIPIZIDE 5 MG TABLET 45 tablet 1 Sig: Take 0.5 tablets by mouth once daily. KENDALL: No EZETIMIBE 10 MG TABLET 90 tablet 1 Sig: Take 1 tablet by mouth once daily. KENDALL: No Date of last office visit : 03/26/2021 Date of next office visit : 09/29/2021 Last 2 Encounter Wt Readings: Date: Wt: 03/26/2021 88.5 kg (195 lb) 12/31/2020 84.7 kg (186 lb 12.8 oz) Please advise. Kristi Boyd Pss documented in this encounter [facility] Note 08-27-2021 Telephone Encounter - Hamida Montoya RN - 08/27/2021 2:47 PM EDT Note Date & Type Note Facility 08-27-2021 Miscellaneous Notes Faxed most recent ov notes and lab results to Dr. Tone Colon- endocrinology/[place], per patient request. Reports he will see this doctor on 09-17, for his chronic kidney dx and DM. documented in this encounter [facility] Progress note 03-26-2021 Note Date & Type Note Facility 03-26-2021 Note HNO ID: [id number] Author: Eboni Cardozo APRN.RATE AND COST ANALYST Service: ? Author Type: Nurse Practitioner Type: Progress Notes Filed: 03/26/2021 10:27 AM Note Text: 03/26/2021 Patient presents with: Recheck SUBJECTIVE: This is a 71 year old that is here today for Above Complaints. DIABETES MELLITUS: Since our last visit he denies excessive thirst or increased frequency of urination, chest pain or dyspnea , new or unusual visual symptoms, low sugar/hypoglycemic reactions, weight loss/gain, lightheadedness/dizziness, bowel changes/loose stools. Does note some numbness and tingling at times to left big toe Follows a diabetic diet some of the time. He is compliant with medication(s) and is tolerating med(s) without any side effects. He reports checking his glucose on a infrequent to not at all basis schedule Patient's last HgA1C was Hemoglobin A1C (%) Date Value 03/22/2021 6.9 09/21/2020 6.7 ) Last Ophthalmology exam was AUGUST 2019- is planning on making appointment today HYPERLIPIDEMIA: Patient is taking medications: Yes. Patient is watching diet: somewhat Patient denies myalgias: Yes. Patient denies gi upset: Yes HTN: Patient is compliant with meds Yes Monitors bp at home: No. Denies side effects: Yes. Chest pain: No. Dyspnea: No. Edema: No. Palpitations: No. Syncope: No. Headache: No. Dizziness: No. HYPOTHYROIDISM: taking levoxyl as prescribed without side effects PAST MEDICAL HISTORY Diagnosis Date - Diabetes mellitus type II (HCC) - Diverticulosis of colon (without mention of hemorrhage) - Essential hypertension, benign - Hyperplasia of prostate - Hypothyroidism - Kidney stones 2014 - MARY (obstructive sleep apnea) - Other and unspecified hyperlipidemia - Overweight (BMI 25.0-29.9) - Prostate cancer (HCC) 10/31/2018 s/p prostatectomy ALLERGIES Crestor [Rosuvastatin Calcium], Dust, Hayfever [Homeopathic Products], Lipitor [Atorvastatin Calcium], Niaspan [Niacin (Antihyperlipidemic)], Pravastatin, Kdjnzem-Wsi-Hrb Reductase Inhibitors, and Zocor [Simvastatin] MEDICATIONS Current Outpatient Medications Medication Sig - glipiZIDE (GLUCOTROL) 5 mg tablet Take 0.5 tablets by mouth once daily. - ezetimibe (ZETIA) 10 mg tablet Take 1 tablet by mouth once daily. - fenofibrate nanocrystallized (TRICOR) 145 mg tablet Take 1 tablet by mouth once daily. - bisoprolol-hydroCHLOROthiazide (ZIAC) 2.5-6.25 mg per tablet Take 1 tablet by mouth once daily. - potassium citrate ER (UROCIT-K) 10 mEq (1,080 mg) Take 1 tablet by mouth once daily - metFORMIN (GLUCOPHAGE) 1,000 mg tablet Take 1 tablet by mouth twice daily with meals. - vit A/vit C/vit E/zinc/copper (PRESERVISION AREDS ORAL) Take by mouth. - CPAP Initiate CPAP at same pressure of current machine. Mask (per patient preference) optional chin strap (if indicated) , filters, tubing, humidifier and lifetime supplies. - aspirin (BABY ASPIRIN) 81 mg ORAL chewable tablet Take 1 tablet by mouth once daily. - COMPOUNDED PRESCRIPTION omega red - taking one daily - CENTRUM SILVER TAB Take one(1) tablet daily. - levothyroxine (LEVOXYL) 100 mcg tablet Take 1 tablet by mouth once daily. Take on empty stomach. For Thyroid. - meloxicam (MOBIC) 15 mg tablet Take 15 mg by mouth once daily. (Patient not taking: Reported on 09/24/2020 ) - blood sugar diagnostic (BLOOD GLUCOSE TEST) test strip Test blood sugar(s) 1-2 times daily. Dx: Type 2 DM - Uncontrolled E11.65 Insulin: No (Patient not taking: Reported on 06/21/2020 ) - Lancets lancets Test blood sugar(s) 1-2 times daily. Dx: Type 2 DM - Uncontrolled E11.65 Insulin: No (Patient not taking: Reported on 06/21/2020 ) - vitamin A-ascorbic acid-vitamin E-minerals (OCUVITE) Tab Take 1 tablet by mouth once daily. (Patient not taking: Reported on 06/21/2020 ) No current facility-administered medications for this visit. Medications and allergies reviewed by this provider. SOCIAL HISTORY Social History Tobacco Use - Smoking status: Never Smoker - Smokeless tobacco: Never Used Substance Use Topics - Alcohol use: No - Drug use: No REVIEW OF SYSTEMS All other reviewed and negative other than HPI. OBJECTIVE: BP 138/78 (BP Site: Left Arm, BP Position: Sitting, BP Cuff Size: Regular Adult) Pulse 68 Resp 16 Wt 88.5 kg (195 lb) BMI 29.22 kg/m? . Vital signs reviewed by this provider. APPEARANCE Well appearing, alert, in no acute distress, well-hydrated, well nourished. EYES conjunctiva and sclera normal. HEART RRR with normal S1 and S2, no murmurs, no gallops, no JVD appreciated LUNG clear to auscultation. No wheezes, rhonchi, or rales EXTREMITIES Extremities normal, No deformities, No skin discoloration, No edema and Normal pulses bilaterally. SKIN Skin color, texture, turgor normal, no suspicious rashes or lesions DM foot exam: shoes and socks removed, No deformities, ulcers, calluses, normal distal pulses, not se (more content not included)... [facility] Progress note 12-31-2020 Note Date & Type Note Facility 12-31-2020 Note HNO ID: [id number] Author: Brittany Billingsley APRN.RATE AND COST ANALYST Service: ? Author Type: Nurse Practitioner Type: Progress Notes Filed: 12/31/2020 2:30 PM Note Text: This note was created using [employer]. Subjective Werner Ferrell is a 70 year old male. 70 year old male with PMH HTN, hyperlipidemia, MARY, DM, presents requesting COVID testing. Acute onset of symptoms was one week ago. +moist coughing. +sore throat (resolved 3 days ago) Diarrhea last 2 days. Denies wheezing. Deneis fever or chills. Denies tobacco usage. He is accompanied by who is being evaluated for same. Denies prior history of COVID. Denies COVID vaccine States that he is feeling better today. The history is provided by the patient. No battery tester and repairer was used. Cough This is a new problem. The current episode started more than 2 days ago. The problem occurs constantly. The problem has been gradually improving. The cough is non-productive. There has been no fever. Associated symptoms include rhinorrhea, sore throat and myalgias. Pertinent negatives include no chest pain, no chills, no sweats, no weight loss, no ear congestion, no ear pain, no headaches, no shortness of breath, no wheezing and no eye redness. He has tried decongestants for the symptoms. The treatment provided mild relief. He is not a smoker. His past medical history does not include bronchitis, pneumonia, bronchiectasis, COPD, emphysema or asthma. PAST MEDICAL HISTORY Diagnosis Date - Diabetes mellitus type II (HCC) - Diverticulosis of colon (without mention of hemorrhage) - Essential hypertension, benign - Hyperplasia of prostate - Hypothyroidism - Kidney stones 2014 - MARY (obstructive sleep apnea) - Other and unspecified hyperlipidemia - Overweight (BMI 25.0-29.9) - Prostate cancer (HCC) 10/31/2018 s/p prostatectomy PAST SURGICAL HISTORY Procedure Laterality Date - [facility]2011 Colonoscopy. repeat in 10 years - [facility]ICAL PROSTATECTOMY 11/30/2018 - PAST SURGICAL HISTORY OF right 5th finger - REMOVAL OF TONSILS,<11 Y/O ALLERGIES Crestor [Rosuvastatin Calcium], Dust, Hayfever [Homeopathic Products], Lipitor [Atorvastatin Calcium], Niaspan [Niacin (Antihyperlipidemic)], Pravastatin, Dzfhame-Umx-Axa Reductase Inhibitors, and Zocor [Simvastatin] MEDICATIONS levothyroxine (LEVOXYL) 100 mcg tablet Take 1 tablet by mouth once daily. Take on empty stomach. For Thyroid. bisoprolol-hydroCHLOROthiazide (ZIAC) 2.5-6.25 mg per tablet Take 1 tablet by mouth once daily. potassium citrate ER (UROCIT-K) 10 mEq (1,080 mg) Take 1 tablet by mouth once daily metFORMIN (GLUCOPHAGE) 1,000 mg tablet Take 1 tablet by mouth twice daily with meals. ezetimibe (ZETIA) 10 mg tablet Take 1 tablet by mouth once daily. glipiZIDE (GLUCOTROL) 5 mg tablet Take 0.5 tablets by mouth once daily. vit A/vit C/vit E/zinc/copper (PRESERVISION AREDS ORAL) Take by mouth. CPAP Initiate CPAP at same pressure of current machine. Mask (per patient preference) optional chin strap (if indicated) , filters, tubing, humidifier and lifetime supplies. aspirin (BABY ASPIRIN) 81 mg ORAL chewable tablet Take 1 tablet by mouth once daily. COMPOUNDED PRESCRIPTION omega red - taking one daily fenofibrate nanocrystallized (TRICOR) 145 mg tablet Take 1 tablet by mouth once daily. meloxicam (MOBIC) 15 mg tablet Take 15 mg by mouth once daily. blood sugar diagnostic (BLOOD GLUCOSE TEST) test strip Test blood sugar(s) 1-2 times daily. Dx: Type 2 DM - Uncontrolled E11.65 Insulin: No Lancets lancets Test blood sugar(s) 1-2 times daily. Dx: Type 2 DM - Uncontrolled E11.65 Insulin: No vitamin A-ascorbic acid-vitamin E-minerals (OCUVITE) Tab Take 1 tablet by mouth once daily. CENTRUM SILVER TAB Take one(1) tablet daily. FAMILY HISTORY Problem Relation Age of Onset - Dementia Mother 95 - Coronary Artery Disease Father Fatal PR age 60 - Heart Brother - Heart disease Sister - Kidney Disease Sister - Cancer Maternal Grandfather pancreatic Social History Tobacco Use - Smoking status: Never Smoker - Smokeless tobacco: Never Used Substance Use Topics - Alcohol use: No - Drug use: No Review of Systems Constitutional: Negative for chills, diaphoresis, fatigue, fever, unexpected weight change and weight loss. HENT: Positive for congestion, rhinorrhea and sore throat. Negative for dental problem, drooling, ear discharge, ear pain, facial swelling, hearing loss, nosebleeds and postnasal drip. Eyes: Negative for pain, discharge, redness and itching. Respiratory: Positive for cough. Negative for apnea, choking, chest tightness, shortness of breath and wheezing. Cardiovascular: Negative for chest pain, palpitations and leg swelling. Gastrointestinal: Negative for abdominal pain, diarrhea, nausea and vomiting. Musculoskeletal: Positive for myalgias. Negative for arthralgias and gait problem. Skin (more content not included)... [facility] Progress note 09-24-2020 Note Date & Type Note Facility 09-24-2020 Note HNO ID: [id number] Author: Eboni Cardozo APRN.RATE AND COST ANALYST Service: ? Author Type: Nurse Practitioner Type: Progress Notes Filed: 09/24/2020 10:14 AM Note Text: 09/24/2020 Patient presents with: Recheck SUBJECTIVE: This is a 70 year old that is here today for Above Complaints. DIABETES MELLITUS: Mr. Ferrell was last seen 3 months ago. Since our last visit he denies excessive thirst or increased frequency of urination, chest pain or dyspnea , numbness, tingling or pain in extremities, new or unusual visual symptoms, low sugar/hypoglycemic reactions, weight loss/gain, lightheadedness/dizziness and bowel changes/loose stools. Follows a diabetic diet some of the time. He is compliant with medication(s) and is tolerating med(s) without any side effects. He reports checking his glucose on a infrequent to not at all basis schedule Patient's last HgA1C was Hemoglobin A1C (%) Date Value 09/21/2020 6.7 06/15/2020 7.3 Last Ophthalmology exam was in August 2019 HYPERLIPIDEMIA: Patient is taking medications: Yes. Patient is watching diet: Yes. Patient denies myalgias: Yes. Patient denies gi upset: Yes HTN: Patient is compliant with meds Yes Monitors bp at home: No. Denies side effects: Yes. Chest pain: No. Dyspnea: No. Edema: No. Palpitations: No. Syncope: No. Headache: No. Dizziness: No. Follows with urology every six months for hx of prostatectomy. Last appointment in June. HYPOTHYROIDISM: taking thyroid medicine as prescribed without side effects PAST MEDICAL HISTORY Diagnosis Date - Diabetes mellitus type II (HCC) - Diverticulosis of colon (without mention of hemorrhage) - Essential hypertension, benign - Hyperplasia of prostate - Hypothyroidism - Kidney stones 2014 - MARY (obstructive sleep apnea) - Other and unspecified hyperlipidemia - Overweight (BMI 25.0-29.9) - Prostate cancer (HCC) 10/31/2018 s/p prostatectomy ALLERGIES Crestor [Rosuvastatin Calcium], Dust, Hayfever [Homeopathic Products], Lipitor [Atorvastatin Calcium], Niaspan [Niacin (Antihyperlipidemic)], Pravastatin, Lbkwkhm-Kgt-Dqd Reductase Inhibitors, and Zocor [Simvastatin] MEDICATIONS Current Outpatient Medications Medication Sig - ezetimibe (ZETIA) 10 mg tablet Take 1 tablet by mouth once daily. - potassium citrate ER (UROCIT-K) 10 mEq (1,080 mg) Take 1 tablet by mouth once daily - bisoprolol-hydroCHLOROthiazide (ZIAC) 2.5-6.25 mg per tablet Take 1 tablet by mouth once daily. - levothyroxine (LEVOXYL) 100 mcg tablet Take 1 tablet by mouth once daily. Take on empty stomach. For Thyroid. - metFORMIN (GLUCOPHAGE) 1,000 mg tablet Take 1 tablet by mouth twice daily with meals. - glipiZIDE (GLUCOTROL) 5 mg tablet Take 0.5 tablets by mouth once daily. - fenofibrate nanocrystallized (TRICOR) 145 mg tablet Take 1 tablet by mouth once daily. - vit A/vit C/vit E/zinc/copper (PRESERVISION AREDS ORAL) Take by mouth. - CPAP Initiate CPAP at same pressure of current machine. Mask (per patient preference) optional chin strap (if indicated) , filters, tubing, humidifier and lifetime supplies. - aspirin (BABY ASPIRIN) 81 mg ORAL chewable tablet Take 1 tablet by mouth once daily. - COMPOUNDED PRESCRIPTION omega red - taking one daily - CENTRUM SILVER TAB Take one(1) tablet daily. - meloxicam (MOBIC) 15 mg tablet Take 15 mg by mouth once daily. (Patient not taking: Reported on 09/24/2020 ) - blood sugar diagnostic (BLOOD GLUCOSE TEST) test strip Test blood sugar(s) 1-2 times daily. Dx: Type 2 DM - Uncontrolled E11.65 Insulin: No (Patient not taking: Reported on 06/21/2020 ) - Lancets lancets Test blood sugar(s) 1-2 times daily. Dx: Type 2 DM - Uncontrolled E11.65 Insulin: No (Patient not taking: Reported on 06/21/2020 ) - vitamin A-ascorbic acid-vitamin E-minerals (OCUVITE) Tab Take 1 tablet by mouth once daily. (Patient not taking: Reported on 06/21/2020 ) No current facility-administered medications for this visit. Medications and allergies reviewed by this provider. SOCIAL HISTORY Social History Tobacco Use - Smoking status: Never Smoker - Smokeless tobacco: Never Used Substance Use Topics - Alcohol use: No - Drug use: No REVIEW OF SYSTEMS All other reviewed and negative other than HPI. OBJECTIVE: BP 124/62 (BP Site: Left Arm, BP Position: Sitting, BP Cuff Size: Regular Adult) Pulse 60 Resp 16 Wt 86.4 kg (190 lb 6.4 oz) BMI 28.53 kg/m? . Vital signs reviewed by this provider. APPEARANCE Well appearing, alert, in no acute distress, well-hydrated, well nourished. EYES conjunctiva and sclera normal. HEART RRR with normal S1 and S2, no murmurs, no gallops, no JVD appreciated LUNG clear to auscultation. No wheezes, rhonchi, or rales EXTREMITIES Extremities normal, No deformities, No skin discoloration and No edema SKIN Skin color, texture, turgor normal, no suspicious rashes or lesions to exposed skin Component Latest Ref Rng AND (more content not included)... [facility] History of Past illness Narrative 09-16-2010 Note Date & Type Note Facility documented as of this encounter (statuses as of 08/27/2021) [facility] History of Past illness Narrative 09-16-2010 Note Date & Type Note Facility documented as of this encounter (statuses as of 09/09/2021) [facility] Evaluation note Note Date & Type Note Facility documented in this encounter [facility] Summary Purpose Family History No Family History Records FoundNo Family History Records Found Advance Directives No Advanced Directives Records FoundNo Advanced Directives Records Found Additional Source Comments (unrecognized sect ion and content) No Status Records FoundNo Status Records Found INFORMATION SOURCE (unrecogn ized section and content) DATE CREATED AUTHOR AUTHOR'S ORGANIZ ATION 08/29/2021 [facility] Source Comments (unrecognize d section and content) In the event this informatio n is protected by the Federal Confidentiality of Alcohol and Drug Abuse Patient Records regulations: The Federal rules restrict any use of the information to criminally investigate or prosecute any alcohol or drug abuse patient.[facility] the event this information is protected by the Federal Confidentiality of Alcohol and Drug Abuse Patient Records regulations: The Federal rules restrict any use of the information to criminally investigate or prosecute any alcohol or drug abuse patient.[facility] Reason for Visit (unrecogniz ed section and content) Reason Onset Date Comments Refill Request 09/09/2021 Care Teams (unrecognized sec tion and content) Vice President Sales And Marketing Relationship Specialty Start Date End Date David Calle MD [address] [place], [place] [id number] PCP - General Family Practice 05/30/19 FOR RECORDS PERTAINING TO PATIENTS WHO ARE OR HAVE BEEN ENROLLED IN A CHEMICAL DEPENDENCY/SUBSTANCEABUSE PROGRAM, SOME INFORMATION MAY BE OMITTED. This clinical summary was aggregated from multiple sources. Caution should be exercised in using it in the provision of clinical care. This summary normalizes information from multiple sources, and as a consequence, information in this document may materially change the coding, format and clinical context of patient data. In addition, data may be omitted in some cases. CLINICAL DECISIONS SHOULD BE BASED ON THE PRIMARY CLINICAL RECORDS. [facility]. provides no warranty or guarantee of the accuracy or completeness of information in this document.
[2023-04-06 11:06] LABS: Anion Gap 7 (5-15); BUN 30 mg/dL (7-18); BUN/Creat Ratio 21.6 RATIO (10-20); Calcium,Total 8.6 mg/dL (8.5-10.1); Chloride 107 mmol/L (98-107); Creatinine, Serum 1.39 mg/dL (0.70-1.30); EST Glomerular Filtration Rate 53 mL/min (>60); Est Glom Filt Rate - Afr Amer 64 mL/min (>60); Glucose 224 mg/dL (74-106); Potassium 4.2 mmol/L (3.5-5.1); Sodium Level 139 mmol/L (136-145)
== END | disposition home or self-care (01) ==
LOC: LAB 09:27
PROVIDERS: PCP Nurse Practitioner Family; Referring Provider Internal Medicine Endocrinology, Diabetes & Metabolism; Visit Provider Internal Medicine Endocrinology, Diabetes & Metabolism
DX: E11.21 Type 2 diabetes mellitus with diabetic nephropathy (principal)
CPT/HCPCS: 36415; 80048

== ENCOUNTER 2023-04-10 08:43 | Inpatient (IN) | payer MEDICARE, OTHER, SELFPAY ==
[2023-04-10] VITALS (24 sets, daily range): BP systolic 115–197; BP diastolic 51–99; PULSE 42–107; RESP 10–20; TEMP 36.4–37.1; O2SAT 96–100; BMI 27.1; BMI 31.3
--- NOTE | 2023-04-10 09:07 | EKG12_ITS ---
Test Reason : EPIGASTRIC PAIN Blood Pressure : / mmHG Vent. Rate : 044 BPM Atrial Rate : 070 BPM P-R Int : 000 ms QRS Dur : 154 ms QT Int : 492 ms P-R-T Axes : 066 002 086 degrees QTc Int : 420 ms Critical Test Result: AV Block Sinus rhythm with complete heart block and Wide QRS rhythm with Premature ventricular complexes or Fu eula complexes Left bundle branch block Abnormal ECG INFERIOR STEMI Confirmed by LINDA SOLER, SHABANA ([id number]), editor in chief AIDEN LORENZO ([id number]) on 04/12/2023 8:42:43 AM Referred By: JAN Confirmed By:SHABANA MCKEON MD
--- OUTSIDE RECORDS SUMMARY | 2023-04-10 09:22 | XMS RPT_ITS | CCD ---
Author Name Unknown Address [address] [place] [address] Organization [facility] Care Team Providers Care Barrel Straightener Name Role Phone Alva SOLER, David Lincoln Primary Care Provider Allergies Allergy Classification Reported Allergen(s) Allergy Type Date of Onset Reaction(s) Facility (2 sources) atorvastatin Drug Allergy 1 Other: See Comments [facility] (2 sources) Dust Propensity to adverse reactions 5 Intolerance [facility] Work Phone: (2 sources) HMG-CoA reductase inhibitor Drug Intolerance 4 Other: See Comments [facility] (2 sources) Niacin Drug Allergy 7 GI Upset [facility] Work Phone: (2 sources) Pravastatin Drug Allergy 1 Other: See Comments [facility] (2 sources) rosuvastatin Drug Allergy 1 Other: See Comments [facility] (2 sources) Simvastatin Drug Allergy 1 Other: See Comments [facility] (2 sources) Homeopathic Products Propensity to adverse reactions 5 Intolerance [facility] Work Phone: Medications Completed/Discontinued Medications Medication [...] David Calle MD Work Phone: [facility] [place] Procedures Date Procedure Procedure Detail Performing Clinician Start: 06-21-2020 Adult depression screening assessment David Calle MD Work Phone: Start: 11-20-2011 Colonoscopy Jovon Calle MD Work Phone: Plan of Treatment Date Care Activity Detail Author Start: 04-10-2022 Hepatitis C antibody , confirmatory test DILATED RETINAL EXAM [facility] Start: 03-26-2022 3 comp foot exam completed DIABETIC FOOT EXAM [facility] Start: 03-26-[address] 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 ANNUAL PCP TEAM CHRONIC DISEASE VISIT [facility] Start: 03-26-2022 COVID-19 VACCINE (#1) COVID-19 VACCI NE (#1) [facility] Immunizations Immunization Date Immunization Notes Care Provider Fa alex 09-02-2011 tetanus toxoid, reduced diphtheria toxoid, and acellular pertussis vaccine, adsorbed David Calle MD Work Phone: [facility] 10-30-1995 diphtheria and tetan us toxoids, adsorbed for pediatric use David Calle MD Work Phone: [facility] Work Phone: 02-18-1993 hepatitis B vaccine, adult dosage David Calle MD Work Phone: [facility] Work Phone: 08-25-1983 diphtheria and tetan us toxoids, adsorbed for pediatric use David Calle MD Work Phone: [facility] Work Phone: 11-14-1973 diphtheria and tetan us toxoids, adsorbed for pediatric use David Calle MD Work Phone: [facility] Work Phone: 11-12-1973 diphtheria and tetan us toxoids, adsorbed for pediatric use David Calle MD Work Phone: [facility] Work Phone: 05-20-1959 trivalent poliovirus vaccine, live, oral David Calle MD Work Phone: [facility] Work Phone: 04-12-1959 diphtheria and tetan us toxoids, adsorbed for pediatric use David Calle MD Work Phone: [facility] Work Phone: 12-09-1956 trivalent poliovirus vaccine, live, oral David Calle MD Work Phone: [facility] Work Phone: 07-31-1955 diphtheria and tetan us toxoids, adsorbed for pediatric use David Calle MD Work Phone: [facility] Work Phone: 09-30-1954 diphtheria and tetan us toxoids, adsorbed for pediatric use David Calle MD Work Phone: [facility] Work Phone: 08-19-1954 diphtheria and tetan us toxoids, adsorbed for pediatric use David Calle MD Work Phone: [facility] Work Phone: Payers Date Payer Category Payer Private Health Insurance HU[employer]NA HU[employer]NA MEDICARE SUPPLEMENT [id number] 2019-Present [phone] [address] [address] [place] [address] Indemnity [id number] 2014 Medicare MEDICARE MEDICAR E A AND B [id number] 2014-Present [phone] [place] [address] Medicare [id number] Social History Date Type Detail Facility Tobacco smoking stat [facility] Never smoked tobacco [facility] Start: 12-31-2020 Alcohol intake 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 Medical Equipment Procedure Code Equipment [...] Kristi Boyd Pss documented in this encounter [facility] Note 08-27-2021 Telephone Encounter - Hamida Montoya RN - 08/27/2021 2:47 PM EDT Note Date & Type Note Facility 08-27-2021 Miscellaneous Notes Faxed most recent ov notes and lab results to Dr. Tone Colon- endocrinology/[place], per patient request. Reports he will see this doctor on 09-17, for his chronic kidney dx and DM. documented in this encounter [facility] Progress note 03-26-2021 Note Date & Type Note Facility 03-26-2021 Note HNO ID: [id number] Author: Eboni Cardozo APRN.TOLL BRIDGE ATTENDANT Service: ? Author Type: Nurse Practitioner Type: [...] Lipitor [Atorvastatin Calcium], Niaspan [Niacin (Antihyperlipidemic)], Pravastatin, Huvhhbu-Laf-Qax Reductase Inhibitors, and Zocor [Simvastatin] MEDICATIONS Current [...] pulses, not se (more content not included)... [facility] Progress note 12-31-2020 Note Date & Type Note Facility 12-31-2020 Note HNO ID: [id number] Author: Brittany Billingsley APRN.TOLL BRIDGE ATTENDANT Service: ? Author Type: Nurse Practitioner Type: Progress Notes Filed: 12/31/2020 2:30 PM Note Text: This note was created using Clueyriter. Subjective Werner Ferrell is a 70 year [...] history is provided by the patient. No spanish language lecturer was used. Cough This is a new [...] Laterality Date - [facility] Colonoscopy. repeat in 10 years - [facility] RADICAL PROSTATECTOMY 11/30/2018 - PAST SURGICAL HISTORY OF right 5th finger - REMOVAL OF TONSILS,<11 Y/O ALLERGIES Crestor [Rosuvastatin Calcium], Dust, Hayfever [Homeopathic Products], Lipitor [Atorvastatin Calcium], Niaspan [Niacin (Antihyperlipidemic)], Pravastatin, Ucpiteq-Rdg-Ztm Reductase Inhibitors, and Zocor [Simvastatin] MEDICATIONS levothyroxine [...] 89 - Coronary Artery Disease Father Fatal DC age 60 - Heart Brother - Heart [...] gait problem. Skin (more content not included)... [facility] Progress note 09-24-2020 Note Date & Type Note Facility 09-24-2020 Note HNO ID: [id number] Author: Eboni Cardozo APRN.TOLL BRIDGE ATTENDANT Service: ? Author Type: Nurse Practitioner Type: [...] Lipitor [Atorvastatin Calcium], Niaspan [Niacin (Antihyperlipidemic)], Pravastatin, Hkyjzlu-Vim-Svz Reductase Inhibitors, and Zocor [Simvastatin] MEDICATIONS Current [...] Ref Rng AND (more content not included)... [facility] History of Past illness Narrative 09-16-2010 Note Date & Type Note Facility documented as of this encounter (statuses as of 08/27/2021) [facility] History of Past illness Narrative 09-16-2010 Note Date & Type Note Facility documented as of this encounter (statuses as of 09/09/2021) [facility] Evaluation note Note Date & Type Note Facility documented in this encounter [facility] Summary Purpose Family History No Family History Records FoundNo Family History Records Found Advance Directives No Advanced Directives Records FoundNo Advanced Directives Records Found Additional Source Comments (unrecognized sect ion and content) No Status Records FoundNo Status Records Found INFORMATION SOURCE (unrecogn ized section and content) DATE CREATED AUTHOR AUTHOR'S ORGANIZ ATION 08/29/2021 [facility] Source Comments (unrecognize d section and content) In the event this informatio n is protected by the Federal Confidentiality of Alcohol and Drug Abuse Patient Records regulations: The Federal rules restrict any use of the information to criminally investigate or prosecute any alcohol or drug abuse patient.[facility] the event this information is protected by the Federal Confidentiality of Alcohol and Drug Abuse Patient Records regulations: The Federal rules restrict any use of the information to criminally investigate or prosecute any alcohol or drug abuse patient.[facility] Reason for Visit (unrecogniz ed section and content) Reason Onset Date Comments Refill Request 09/09/2021 Care Teams (unrecognized sec tion and content) Barrel Straightener Relationship Specialty Start Date End Date David Calle MD [address] [place], [place] [address] PCP - General Family Practice 05/30/19 FOR [...] BE BASED ON THE PRIMARY CLINICAL RECORDS. [facility] [employer] [facility]. provides no warranty or guarantee of the accuracy or completeness of information in this document.
[2023-04-10] MEDS: 0.9% Normal Saline (1000mL) 1,000 ML 999 ML IV (09:25)
[2023-04-10 09:28] LABS: Absolute Lymphocyte Count 1.62 X10^3/uL (0.83-4.51); Absolute Neutrophil Count 4.8 X10^3/uL (2.0-7.7); Basophil# 0.08 X10^3/uL; Basophil% 1.1 % (0-1); Eosinophil# 0.36 X10^3/uL; Eosinophils% 4.8 % (0-5); Hematocrit 36.2 % (40-54); Hemoglobin 12.2 g/dL (13.0-16.5); Lymphocyte # 1.62 X10^3/ul (0.83-4.51); Lymphocyte % 21.7 % (19-41); Mean Corp Hgb Conc 33.7 g/dL (32-36); Mean Corpuscular Hgb 29.8 pg (27.0-32.0); Mean Corpuscular Volume 88.3 fL (80-94); Mean Platelet Vol. 10.2 fl (6.2-12.0); NRBC Flagged by Analyzer 0 % (0-5); Neutrophil # 4.79 X10^3/uL (2.7-7.7); Neutrophil % 64.1 % (47-70); Platelet Count 281 K/mm3 (150-450); RBC Distribution Width CV 13.5 % (11.6-14.6); RBC Distribution Width SD 43.6 fl (35.1-43.9); White Blood Count 7.5 K/mm3 (4.4-11.0)
--- NOTE | 2023-04-10 09:35 | RAD_ITS ---
INDICATION: chest pain EXAMINATION/TECHNIQUE: X-RAY - XR Chest 1 View COMPARISON: Prior study dated: 11/30/2022. FINDINGS: LINES/DEVICES: None. LUNGS: No consolidation, edema or effusion. No pneumothorax. MEDIASTINUM AND CARDIOVASCULAR STRUCTURES: Cardiac silhouette not enlarged. Central airways and mediastinal contour are unremarkable. BONES AND SOFT TISSUES: Unremarkable. RAD/Chest 1 View (Portable) IMPRESSION: No radiographic evidence of acute cardiopulmonary disease. Electronically Signed: Joey Garibay MD at 10:09 EST ,
--- NOTE | 2023-04-10 10:15 | ED.VIS.CHEST ---
HPI History of Present Illness Chief Complaint: Dizziness Narrative Narrative: 73-year-old male presenting with chest tightness. He states is not pain or pressure. He states he was out walking his dog and became lightheaded before this started. This was about 5 or 6 AM this morning. Patient states that he has a history of chronic kidney disease, hypertension, hyperlipidemia, diabetes. He denies cardiac history. Patient notes that his losartan has been increased a couple of times and he now takes 100 mg of losartan when he used to take 25. He is not on a beta-gian or heart rate control medication. Patient denies shortness of breath. He denies nausea or vomiting. Denies fever or chills. Patient does state that he drinks a lot of water. He does not drink alcohol and is non-smoker. [facility] Medical History BPH (benign prostatic hyperplasia) Cancer Cholecystitis Diabetes mellitus Dietary restriction Difficulty swallowing High cholesterol History of renal disease Hypertension Hypothyroid Leg cramping Loss of hearing Neuropathy Non-smoker Sleep apnea treated with continuous positive airway pressure (CPAP) Wears glasses Home Medications levothyroxine 75 mcg tablet 100 mcg PO DAILY THYROID 01/08/13 [History Last Taken 04/09/23] metformin 500 mg tablet,extended release 24 hr 1,000 mg PO BID DIABETES 01/08/13 [History Last Taken 02/15/23] uuetztqf-qol-rygkc acid 0.4 mg-lycopene 300 mcg-lutein 250 mcg tablet (Centrum Silver) 1 ea PO DAILY SUPPLEMENT' 01/08/13 [History Last Taken 04/09/23] omega 3-dha 60 mg-epa 90 mg-fish oil 500 mg capsule, delayed release (Fish Oil) 1,000 mg PO BID supplement 05/24/15 [History Last Taken 04/09/23] potassium citrate 10 mEq (1,080 mg) tablet,extended release (Urocit-K 10) 1,080 mg PO DAILY SUPPLEMENT 05/24/15 [History Last Taken 04/09/23] fenofibrate nanocrystallized 145 mg tablet 145 mg PO DAILY CHOLESTEROL 10/19/17 [History Last Taken 04/09/23] ezetimibe 10 mg tablet 10 mg PO DAILY 12/06/22 [History Last Taken 04/09/23] glipizide 5 mg tablet 2.5 mg PO DINNER diabetes 12/06/22 [History Last Taken 04/09/23] vit C 250 mg-vit E 90 mg-zinc 40 mg-copper 1 qr-mkfkbu-vcduow capsule (PreserVision AREDS-2) 1 tab PO BID eye health 12/06/22 [History Last Taken 04/09/23] cholecalciferol (vitamin D3) 50 mcg (2,000 unit) capsule (D3-2000) 50 mcg PO DAILY 02/11/23 [History Last Taken 04/09/23] losartan 100 mg tablet 100 mg PO DAILY 04/10/23 [History Last Taken 04/10/23] Allergy/AdvReac Type Severity Reaction Status Date / Time Sjkgqkz-HLJ-YqG Reductase AdvReac leg cramps Verified 04/10/23 08:44 Inhibitor [Tmqwrfb-Flh-Mgf Reductase Inhibitor] Surgical History H/O prostatectomy History of tonsillectomy and adenoidectomy Hx of colonoscopy Hx of total knee replacement S/P laparoscopic cholecystectomy Social History household members: spouse current occupational status: retired Smoking Status: Never smoker ROS ROS ED ROS Narrative Lightheadedness Constitutional Constitutional ED: Denies chills, fever(s) or sweats Eyes Eyes: Denies blurry vision or change in vision ENT ENT ED: Denies ear pain or sore throat Cardiovascular Cardiovascular: Reports as per HPI; Denies chest pain, palpitations or racing heartbeat Respiratory/Chest Respiratory/Chest: Denies cough, dyspnea or sputum Gastrointestinal Gastrointestinal: Denies abdominal pain, constipation, diarrhea, nausea or vomiting Genitourinary Genitourinary ED: Denies dysuria, hematuria or urinary frequency Musculoskeletal Musculoskeletal: Denies arthralgias, myalgias or neck pain Integumentary Denies abscess, Abrasions or rash Neurologic Neurologic: Denies headache(s), paresthesias or weakness Psychiatric Psychiatric: Denies anxiety, depression, suicidal ideation or suicidal thoughts Endocrine Endocrinology: Denies polydipsia or polyuria EXAM Physical Exam Const Vital Signs: 04/10/23 08:44 04/10/23 09:07 04/10/23 09:34 Temperature 97.6 F L Temperature Source Temporal Pulse Rate 42 L Respiratory Rate 16 Respiratory Effort Normal Non-Labored Respiratory Pattern Normal Blood Pressure 132/64 H Blood Pressure Mean 86 Pulse Ox 97 100 Oxygen Delivery Method Room Air Room Air 04/10/23 09:44 04/10/23 09:53 Temperature Temperature Source Pulse Rate 64 Respiratory Rate 12 Respiratory Effort Normal Non-Labored Respiratory Pattern Normal Blood Pressure 197/95 H Blood Pressure Mean 129 Pulse Ox 99 Oxygen Delivery Method Room Air Positive well nourished General Appearance ED: NAD; Negative for pallor HEENT Reports moist mucous membranes normocephalic and atraumatic Eyes PERRL Neck no lymphadenopathy Chest Wall inspection of chest normal and palpation of chest normal Resp normal respiratory effort and clear to auscultation bilaterally Auscultation: Negative for rales, rhonchi or wheezes Cardio regular rhythm Rate: bradycardia GI normal to inspection, nondistended, normoactive bowel sounds Neuro oriented x3 and CN's II-XII intact bilaterally Sensorium / Orientation: awake and alert Skin no rashes or lesions noted General Skin Exam: Negative for jaundice or pallor Heart Score History: Moderately Suspicious ECG: Nonspecific Repolarization Age: >/= 65 years Risk Factors: >/= 3 Risk Factors or History of CAD Troponin: >/=3 x Normal Limit Score: 8 MDM MDM MDM Narrative Medical decision making narrative: Patient presenting with bradycardia which is symptomatic. His initial EKG showed a rate of 44 bpm which appeared to be sinus but may indicate heart block. We did a rhythm strip which showed that he was in and out of [place]. Medications were reviewed and none of his medications would have caused a heart block. Patient with no cardiac history but was having chest tightness. Differential includes ACS, CHF, pneumonia, COPD, heart block, dehydration, anemia, joint abnormalities. Initially discussed EKG findings with cardiology and given the lack of ability to have a pacemaker placed was initially thought the patient would need to be transferred. Initially attempted to call [facility] however there was no ability to except as they have no open beds. They did give me a cardiology number to call which I did call and received no answer. We then attempted to call [phone] and never received a call back. CBC was obtained to assess for blood cell count, hemoglobin, platelets. CMP to assess liver function, renal function, electrolytes, glucose. High-sensitivity troponin to assess for ischemia/dysrhythmia. Chest x-ray to rule out pneumonia. BNP to rule out CHF. Lipase was obtained as the patient had some epigastric discomfort as well. CBC, CMP unremarkable. Initial high-sensitivity troponin was 12. Delta troponin came back at 268. Patient at this point had repeat EKG as there was concern that the patient could have infarcted earlier and that was why he was having the atypical rhythms. EKG repeated at 1238 after the delta troponin showed a acute inferior NE. Chest x-ray reviewed at that time shows no acute process. This is on my interpretation. STEMI was called. Spoke with Dr. Albert patient was given aspirin, Brilinta, heparin. Patient will be taken to the [facility]. He is currently pain-free. Impression: 1. NSTEMI 2. Palpitations Lab Data Attestation: I reviewed the patient's lab results. Labs: Laboratory Results - last 24 hr 04/10/23 04/10/23 09:15 11:42 WBC 7.5 RBC 4.10 L Hgb 12.2 L Hct 36.2 L MCV 88.3 MCH 29.8 MCHC 33.7 RDW Std Deviation 43.6 RDW Coeff of Tico 13.5 Plt Count 281 MPV 10.2 Immature Gran % (Auto) 0.300 Neut % (Auto) 64.1 Lymph % (Auto) 21.7 Pierce % (Auto) 8.0 Eos % (Auto) 4.8 Baso % (Auto) 1.1 H Absolute Neuts (auto) 4.8 Absolute Lymphs (auto) 1.62 Nucleated RBC % 0 Sodium 139 Potassium 3.9 Chloride 108 H Carbon Dioxide 23.0 Anion Gap 8 BUN 33 H Creatinine 1.53 H Estim Creat Clear Calc 42.36 Est GFR (MDRD) Af Amer 58 L Est GFR (MDRD) Non-Af 48 L BUN/Creatinine Ratio 21.6 H Glucose 201 H Calcium 9.2 Total Bilirubin 0.20 Direct Bilirubin 0.10 AST 10 L ALT 22 Alkaline Phosphatase 52 Troponin I High Sens 12 268 H* B-Natriuretic Peptide 7.0 Total Protein 7.1 Albumin 3.7 Globulin 3.4 Lipase 338 H Radiography Diagnostic Testing: Clinical Impression(s) from Imaging Studies Chest X-Ray 04/10/23 09:35 IMPRESSION: No radiographic evidence of acute cardiopulmonary disease. Electronically Signed: Joey Garibay MD at 10:09 EST , Discharge Plan Triage Chief Complaint: Dizziness ED Provider: Nicanor Martinez Dx/Rx/DC Orders Prescriptions: No Action levothyroxine 75 MCG tablet 100 mcg PO DAILY metformin 500 MG tablet 1,000 mg PO BID Centrum Silver 1 EACH tablet 1 ea PO DAILY potassium citrate [Urocit-K 10] 10 MEQ tablet extended release 1,080 mg PO DAILY Fish Oil 500 MG capsule,delayed release(DR/EC) 1,000 mg PO BID fenofibrate nanocrystallized 145 tablet 145 mg PO DAILY Patient Comments: glipizide 5 mg tablet 2.5 mg PO DINNER ezetimibe 10 mg tablet 10 mg PO DAILY PreserVision AREDS-2 250-90-40-1 mg capsule 1 tab PO BID cholecalciferol (vitamin D3) [D3-1999] 50 mcg (2,000 unit) capsule 50 mcg PO DAILY losartan 100 mg tablet 100 mg PO DAILY Primary Care Provider: Mita Zaidi Referrals: Mita Zaidi, NUCLEAR CARDIOLOGY TECHNOLOGIST-C [Primary Care Provider] -
[2023-04-10 10:41] LABS: AST(SGOT) 10 U/L (15-37); Alanine Aminotransfer ALT/SGPT 22 U/L (16-61); Albumin, Serum 3.7 g/dL (3.2-5.0); Alkaline Phosphatase 52 U/L (45-117); Anion Gap 8 (5-15); BUN 33 mg/dL (7-18); BUN/Creat Ratio 21.6 RATIO (10-20); Calcium,Total 9.2 mg/dL (8.5-10.1); Chloride 108 mmol/L (98-107); Creatinine, Serum 1.53 mg/dL (0.70-1.30); EST Glomerular Filtration Rate 48 mL/min (>60); Est Glom Filt Rate - Afr Amer 58 mL/min (>60); Estimated Creatinine Clearance 42.36 ml/min; Globulin 3.4 g/dL (2.2-4.2); Glucose 201 mg/dL (74-106); Lipase 338 U/L (13-75); Potassium 3.9 mmol/L (3.5-5.1); Protein, Total 7.1 g/dL (6.4-8.2); Sodium Level 139 mmol/L (136-145); Troponin-I HS (w/2H Reflex) 12 pg/mL (3.0-78.0)
[2023-04-10 11:26] LABS: Reflex Troponin-HS? (from REC) Y
--- NOTE | 2023-04-10 11:49 | NURSING ---
CALLED [facility], NOT ACCEPTING ANY OUTSIDE PATIENTS
[2023-04-10 12:24] LABS: Troponin-I HS 268 pg/mL (3.0-78.0)
--- NOTE | 2023-04-10 12:32 | EKG12_ITS ---
Test Reason : REPEAT Blood Pressure : / mmHG Vent. Rate : 065 BPM Atrial Rate : 100 BPM P-R Int : 000 ms QRS Dur : 106 ms QT Int : 354 ms P-R-T Axes : 057 010 090 degrees QTc Int : 368 ms Critical Test Result: AV Block , STEMI Sinus rhythm with 2nd degree A-V block (Mobitz I) Minimal voltage criteria for LVH, may be normal variant ( Antelope product ) Inferior infarct ACUTE ACUTE IN / STEMI Confirmed by LINDA SOLER, SHABANA ([id number]), assignment desk editor AIDEN LORENZO ([id number]) on 04/12/2023 8:43:19 AM Referred By: Confirmed By:SHABANA MCKEON MD
[2023-04-10] MEDS: Aspirin 81 MG TAB.CHEW 324 MG PO (12:48)
[2023-04-10] MEDS: TICAGRELOR 90 MG TABLET 180 MG PO (12:50)
[2023-04-10] MEDS: Heparin Injection (Vial) 5,000 UNIT/ML VIAL IV (12:57)
[2023-04-10 13:22] LABS: Partial Thromboplast Time 26.4 Seconds (24.1-36.2); Prothrombin Time (Protime)PT. 13.3 SECONDS (11.7-14.9)
[2023-04-10 14:18] LABS: Magnesium 2.1 mg/dL (1.6-2.6)
[2023-04-10] MEDS: 0.9% Normal Saline (1000mL) 1,000 ML 150 ML IV (14:20)
[2023-04-10] MEDS: EPTIFIBATIDE 75 MG/100 ML VIAL 13.3000000000000007 MG CONT INF (14:20)
--- NOTE | 2023-04-10 14:30 | EKG12_ITS ---
Test Reason : AM EKG Blood Pressure : / mmHG Vent. Rate : 071 BPM Atrial Rate : 071 BPM P-R Int : 228 ms QRS Dur : 096 ms QT Int : 382 ms P-R-T Axes : 066 -20 -50 degrees QTc Int : 415 ms Sinus rhythm with 1st degree A-V block Inferior infarct , age undetermined Abnormal ECG When compared with ECG of 11-APR-2023 00:37, MANUAL COMPARISON REQUIRED, DATA IS UNCONFIRMED Confirmed by LINDA SOLER, SHABANA ([id number]), news video editor MARISOL SOTOMAYOR ([id number]) on 04/13/2023 10:35:57 AM Referred By: Roosevelt Confirmed By:SHABANA MCKEON MD
--- OUTSIDE RECORDS SUMMARY | 2023-04-10 15:28 | XMS RPT_ITS | CCD ---
Author Name Unknown Address [address] [place] [address] Organization [facility] Care Team Providers Care Call Center Operator Name Role Phone Alva SOLER, David Lincoln Primary Care Provider Allergies Allergy Classification Reported Allergen(s) Allergy Type Date of Onset Reaction(s) Facility (2 sources) atorvastatin Drug Allergy 1 Other: See Comments [facility] (2 sources) Dust Propensity to adverse reactions 5 Intolerance [facility] Work Phone: (2 sources) HMG-CoA reductase inhibitor Drug Intolerance 4 Other: See Comments [facility] (2 sources) Niacin Drug Allergy 7 GI Upset [facility] Work Phone: (2 sources) Pravastatin Drug Allergy 1 Other: See Comments [facility] (2 sources) rosuvastatin Drug Allergy 1 Other: See Comments [facility] (2 sources) Simvastatin Drug Allergy 1 Other: See Comments [facility] (2 sources) Homeopathic Products Propensity to adverse reactions 5 Intolerance [facility] Work Phone: Medications Completed/Discontinued Medications Medication [...] David Calle MD Work Phone: [facility] [place] Procedures Date Procedure Procedure Detail Performing Clinician Start: 06-21-2020 Adult depression screening assessment David Calle MD Work Phone: Start: 11-20-2011 Colonoscopy Jovon Calle MD Work Phone: Plan of Treatment Date Care Activity Detail Author Start: 04-10-2022 Hepatitis C antibody , confirmatory test DILATED RETINAL EXAM [facility] Start: 03-26-2022 3 comp foot exam completed DIABETIC FOOT EXAM [facility] Start: 03-26-2022 ANNUAL PCP TEAM FOOD AND BEVERAGE ASSOCIATE 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 ANNUAL PCP TEAM CHRONIC DISEASE VISIT [facility] Start: 03-26-2022 COVID-19 VACCINE (#1) COVID-19 VACCI NE (#1) [facility] Immunizations Immunization Date Immunization Notes Care Provider Fa alex 09-02-2011 tetanus toxoid, reduced diphtheria toxoid, and acellular pertussis vaccine, adsorbed David Calle MD Work Phone: [facility] 10-30-1995 diphtheria and tetan us toxoids, adsorbed for pediatric use David Calle MD Work Phone: [facility] Work Phone: 02-18-1993 hepatitis B vaccine, adult dosage David Calle MD Work Phone: [facility] Work Phone: 08-25-1983 diphtheria and tetan us toxoids, adsorbed for pediatric use David Calle MD Work Phone: [facility] Work Phone: 11-14-1973 diphtheria and tetan us toxoids, adsorbed for pediatric use David Calle MD Work Phone: [facility] Work Phone: 11-12-1973 diphtheria and tetan us toxoids, adsorbed for pediatric use David Calle MD Work Phone: [facility] Work Phone: 05-20-1959 trivalent poliovirus vaccine, live, oral David Calle MD Work Phone: [facility] Work Phone: 04-12-1959 diphtheria and tetan us toxoids, adsorbed for pediatric use David Calle MD Work Phone: [facility] Work Phone: 12-09-1956 trivalent poliovirus vaccine, live, oral David Calle MD Work Phone: [facility] Work Phone: 07-31-1955 diphtheria and tetan us toxoids, adsorbed for pediatric use David Calle MD Work Phone: [facility] Work Phone: 09-30-1954 diphtheria and tetan us toxoids, adsorbed for pediatric use David Calle MD Work Phone: [facility] Work Phone: 08-19-1954 diphtheria and tetan us toxoids, adsorbed for pediatric use David Calle MD Work Phone: [facility] Work Phone: Payers Date Payer Category Payer Private Health Insurance HU[employer] HU[employer]NA MEDICARE SUPPLEMENT [id number] 2019-Present [phone] [address] [address] [place] [address] Indemnity [id number] 2014 Medicare MEDICARE MEDICAR E A AND B [id number] 2014-Present [phone] [place] [address] Medicare [id number] Social History Date Type Detail Facility Tobacco smoking stat [facility] Never smoked tobacco [facility] Start: 12-31-2020 Alcohol intake 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 Tone Colon- endocrinology/[place], per patient request. Reports he will see this doctor on 09-17, for his chronic kidney dx and DM. documented in this encounter [facility] Progress note 03-26-2021 Note Date & Type Note Facility 03-26-2021 Note HNO ID: [id number] Author: Eboni Cardozo APRN.LIVESTOCK YARD SUPERVISOR Service: ? Author Type: Nurse Practitioner Type: [...] Lipitor [Atorvastatin Calcium], Niaspan [Niacin (Antihyperlipidemic)], Pravastatin, Noavhcz-Ibx-Xrj Reductase Inhibitors, and Zocor [Simvastatin] MEDICATIONS Current [...] pulses, not se (more content not included)... [facility] Progress note 12-31-2020 Note Date & Type Note Facility 12-31-2020 Note HNO ID: [id number] Author: Brittany Billingsley APRN.LIVESTOCK YARD SUPERVISOR Service: ? Author Type: Nurse Practitioner Type: Progress Notes Filed: 12/31/2020 2:30 PM Note Text: This note was created using [employer]. Subjective Werner Ferrell is a 70 year [...] history is provided by the patient. No english language learner teacher was used. Cough This is a new [...] Laterality Date - [facility]/20/2011 Colonoscopy. repeat in 10 years - [facility] RADICAL PROSTATECTOMY 11/30/2018 - PAST SURGICAL HISTORY OF right 5th finger - REMOVAL OF TONSILS,<11 Y/O ALLERGIES Crestor [Rosuvastatin Calcium], Dust, Hayfever [Homeopathic Products], Lipitor [Atorvastatin Calcium], Niaspan [Niacin (Antihyperlipidemic)], Pravastatin, Cqxzkkp-Vpq-Cfl Reductase Inhibitors, and Zocor [Simvastatin] MEDICATIONS levothyroxine [...] 89 - Coronary Artery Disease Father Fatal PA age 60 - Heart Brother - Heart [...] gait problem. Skin (more content not included)... [facility] Progress note 09-24-2020 Note Date & Type Note Facility 09-24-2020 Note HNO ID: [id number] Author: Eboni Cardozo APRN.LIVESTOCK YARD SUPERVISOR Service: ? Author Type: Nurse Practitioner Type: [...] Lipitor [Atorvastatin Calcium], Niaspan [Niacin (Antihyperlipidemic)], Pravastatin, Gcfjzkx-Xxa-Djn Reductase Inhibitors, and Zocor [Simvastatin] MEDICATIONS Current [...] Ref Rng AND (more content not included)... [facility] History of Past illness Narrative 09-16-2010 Note Date & Type Note Facility documented as of this encounter (statuses as of 08/27/2021) [facility] History of Past illness Narrative 09-16-2010 Note Date & Type Note Facility documented as of this encounter (statuses as of 09/09/2021) [facility] Evaluation note Note Date & Type Note Facility documented in this encounter [facility] Summary Purpose Family History No Family History Records FoundNo Family History Records Found Advance Directives No Advanced Directives Records FoundNo Advanced Directives Records Found Additional Source Comments (unrecognized sect ion and content) No Status Records FoundNo Status Records Found INFORMATION SOURCE (unrecogn ized section and content) DATE CREATED AUTHOR AUTHOR'S ORGANIZ ATION 08/29/2021 [facility] Source Comments (unrecognize d section and content) In the event this informatio n is protected by the Federal Confidentiality of Alcohol and Drug Abuse Patient Records regulations: The Federal rules restrict any use of the information to criminally investigate or prosecute any alcohol or drug abuse patient.[facility] the event this information is protected by the Federal Confidentiality of Alcohol and Drug Abuse Patient Records regulations: The Federal rules restrict any use of the information to criminally investigate or prosecute any alcohol or drug abuse patient.[facility] Reason for Visit (unrecogniz ed section and content) Reason Onset Date Comments Refill Request 09/09/2021 Care Teams (unrecognized sec tion and content) Call Center Operator Relationship Specialty Start Date End Date David Calle MD [address] [place], [place] [address] PCP - General Family Practice 05/30/19 FOR [...] BE BASED ON THE PRIMARY CLINICAL RECORDS. [facility] [employer] [facility]. provides no warranty or guarantee of the accuracy or completeness of information in this document.
--- NOTE | 2023-04-10 15:46 | PCM.CONS.C ---
Assessment & Plan Assessment/Plan (1) ST elevation (STEMI) myocardial infarction involving right coronary artery: PLAN: STEMI alert was called. Emergent coronary angiography was undertaken. It showed complete occlusion of the proximal right coronary artery. Successful percutaneous intervention was done with aspiration thrombectomy, balloon angioplasty and drug-eluting stent. Excellent results were noted with jehovah's witness of AHSAN-3 flow and 0% residual stenosis. Continue aspirin lifelong. Plavix for at least 1 year. Risk factor modification. (2) Coronary artery disease: PLAN: See #1 above. Aspirin, Plavix. Check lipid panel. Beta-blockers. ANGEL inhibitors. (3) Transient complete heart block: PLAN: Resolved with revascularization of the right coronary artery. Monitor. (4) Hypertension: QUALIFIERS: Hypertension type: unspecified Qualified Code(s): I10 - Essential (primary) hypertension PLAN: Beta-blockers. ANGEL inhibitor. (5) Dyslipidemia: PLAN: Check lipid profile. Patient is intolerant of statins. Depending upon his lipid profile, alternative therapeutic region would be suggested. (6) Diabetes 1.5, managed as type 2: PLAN: As per internal medicine. HPI Consult Data Date of Consult: 04/10/23 HPI Narrative Reason for Consultation: STEMI HPI Narrative: This patient has past medical history significant for hypertension, dyslipidemia and diabetes mellitus. He presented to the emergency room complaining of lightheadedness. According to him, it started earlier this morning. I was called by the emergency room physician and told that his ECG shows bradycardia with possible second-degree type I Wenckebach block. A subsequent ECG showed ST elevations in inferior leads. Subsequently a STEMI alert was called. Upon further questioning, the patient does admit to having anterior chest discomfort along with his lightheadedness. According to him, the discomfort radiated to his neck. [facility] Medical History BPH (benign prostatic hyperplasia) Cancer Cholecystitis Diabetes mellitus Dietary restriction Difficulty swallowing High cholesterol History of renal disease Hypertension Hypothyroid Leg cramping Loss of hearing Neuropathy Non-smoker Sleep apnea treated with continuous positive airway pressure (CPAP) Wears glasses Home Medications levothyroxine 75 mcg tablet 100 mcg PO DAILY THYROID 01/08/13 [History Last Taken 04/09/23] metformin 500 mg tablet,extended release 24 hr 1,000 mg PO BID DIABETES 01/08/13 [History Last Taken 02/15/23] hzyvuybp-sxq-proas acid 0.4 mg-lycopene 300 mcg-lutein 250 mcg tablet (Centrum Silver) 1 ea PO DAILY SUPPLEMENT' 01/08/13 [History Last Taken 04/09/23] omega 3-dha 60 mg-epa 90 mg-fish oil 500 mg capsule, delayed release (Fish Oil) 1,000 mg PO BID supplement 05/24/15 [History Last Taken 04/09/23] potassium citrate 10 mEq (1,080 mg) tablet,extended release (Urocit-K 10) 1,080 mg PO DAILY SUPPLEMENT 05/24/15 [History Last Taken 04/09/23] fenofibrate nanocrystallized 145 mg tablet 145 mg PO DAILY CHOLESTEROL 10/19/17 [History Last Taken 04/09/23] ezetimibe 10 mg tablet 10 mg PO DAILY 12/06/22 [History Last Taken 04/09/23] glipizide 5 mg tablet 2.5 mg PO DINNER diabetes 12/06/22 [History Last Taken 04/09/23] vit C 250 mg-vit E 90 mg-zinc 40 mg-copper 1 gp-ktzmkc-erpzug capsule (PreserVision AREDS-2) 1 tab PO BID eye health 12/06/22 [History Last Taken 04/09/23] cholecalciferol (vitamin D3) 50 mcg (2,000 unit) capsule (D3-2000) 50 mcg PO DAILY 02/11/23 [History Last Taken 04/09/23] losartan 100 mg tablet 100 mg PO DAILY 04/10/23 [History Last Taken 04/10/23] Allergy/AdvReac Type Severity Reaction Status Date / Time Efinhup-LIU-ElJ Reductase AdvReac leg cramps Verified 04/10/23 08:44 Inhibitor [Uamssbz-Qek-Ylb Reductase Inhibitor] Surgical History H/O prostatectomy History of tonsillectomy and adenoidectomy Hx of colonoscopy Hx of total knee replacement S/P laparoscopic cholecystectomy Social History household members: spouse current occupational status: retired Smoking Status: Never smoker Physical Exam Narrative Comfortable. No apparent distress. Heart sounds 1 and 2 are normal. Chest clear to auscultation bilaterally. Alert oriented x 3. No ankle edema. Risk Stratification Risk Stratification Applicable: No Objective Data Vital Signs: Vital Signs Temp Pulse Resp BP Pulse Ox O2 Del Method 97.9 F 70 16 144/78 H 99 Room Air 04/10/23 13:00 04/10/23 13:00 04/10/23 13:00 04/10/23 13:00 04/10/23 13:00 04/10/23 13:00 Oxygen Delivery Method Room Air Weight: 183 lb 13.848 oz Body Mass Index (BMI) 27.1 Intake & Output: Intake and Output for Last 24 Hours 04/08/23 04/09/23 04/10/23 23:59 23:59 23:59 Intake Total 1000 / 1000 Balance 1000 / 1000 Lab / Micro Data 04/10/23 09:15 04/10/23 09:15 Labs: Laboratory Results - last 24 hr 04/10/23 09:15: WBC 7.5, RBC 4.10 L, Hgb 12.2 L, Hct 36.2 L, MCV 88.3, MCH 29.8, MCHC 33.7, RDW Std Deviation 43.6, RDW Coeff of Tico 13.5, Plt Count 281, MPV 10.2, Immature Gran % (Auto) 0.300, Neut % (Auto) 64.1, Lymph % (Auto) 21.7, [place] % (Auto) 8.0, Eos % (Auto) 4.8, Baso % (Auto) 1.1 H, Absolute Neuts (auto) 4.8, Absolute Lymphs (auto) 1.62, Nucleated RBC % 0, PT 13.3, INR 1.0, APTT 26.4, Sodium 139, Potassium 3.9, Chloride 108 H, Carbon Dioxide 23.0, Anion Gap 8, BUN 33 H, Creatinine 1.53 H, Estim Creat Clear Calc 42.36, Est GFR (MDRD) Af Amer 58 L, Est GFR (MDRD) Non-Af 48 L, BUN/Creatinine Ratio 21.6 H, Glucose 201 H, Calcium 9.2, Magnesium 2.1, Total Bilirubin 0.20, Direct Bilirubin 0.10, AST 10 L, ALT 22, Alkaline Phosphatase 52, Troponin I High Sens 12, B-Natriuretic Peptide 7.0, Total Protein 7.1, Albumin 3.7, Globulin 3.4, Lipase 338 H 04/10/23 11:42: Troponin I High Sens 268 H* Cardiology Labs/Tests 04/10/23 09:15: WBC 7.5, RBC 4.10 L, Hgb 12.2 L, Hct 36.2 L, MCV 88.3, MCH 29.8, MCHC 33.7, Plt Count 281, MPV 10.2, Immature Gran % (Auto) 0.300, Neut % (Auto) 64.1, Lymph % (Auto) 21.7, [place] % (Auto) 8.0, Eos % (Auto) 4.8, Baso % (Auto) 1.1 H, Absolute Neuts (auto) 4.8, Nucleated RBC % 0, PT 13.3, INR 1.0, APTT 26.4, Sodium 139, Potassium 3.9, Chloride 108 H, Carbon Dioxide 23.0, Anion Gap 8, BUN 33 H, Creatinine 1.53 H, Est GFR (MDRD) Af Amer 58 L, Est GFR (MDRD) Non-Af 48 L, BUN/Creatinine Ratio 21.6 H, Glucose 201 H, Calcium 9.2, Magnesium 2.1, Total Bilirubin 0.20, Direct Bilirubin 0.10, B-Natriuretic Peptide 7.0 Rhythm: EKG: ECHO: Stress Test: Cardiac Cath: PCI: CT Surgery: Holter monitor: EPS: PPM: CXR: Chest CT Scan: Radiography Diagnostic Testing: Radiology Impression Chest X-Ray 04/10/23 09:35 IMPRESSION: No radiographic evidence of acute cardiopulmonary disease. Electronically Signed: Joey Garibay MD at 10:09 EST ,
--- NOTE | 2023-04-10 16:06 | CL.I_ITS ---
Patient Name: SINDY GREENFIELD Study Date: 04/10/2023 Performing: Bo Albert MD Ht: 69 inches 175.26 cm : 1950 Wt: 184.1 lbs 83.4 kg Age: 73 Gender: male BSA: 1.99 PROCEDURE(S) PERFORMED DC01-(78923)LHC/COR/LV IC16-([id number])AMI, RIRI OR PTCA, ARTERY/GRAFT, SINGLE VESSEL IC17-([id number])CORONARY MECHANICAL THROMBECTOMY (ANGIOJET,PENUMBRA) CLINICAL PROFILE AND CO-MORBIDITIES Indications: ACS <= 24 hrs Heart Failure: None CAD Presentations: STEMI. Symptom onset Date/Time: Time Not Available CONCLUSIONS 80% Prox, 100% Mid RCA 60% Mid LAD Yale 3.0x38 mm, post-dilated using 3.25 mm balloon RECOMMENDATIONS ASA Indefinitley Plavix for at least 12 months DESCRIPTION OF PROCEDURE The patient arrived to the procedure lab. The risks and benefits of the procedure as well as a full description of our services here and lack of surgical backup were fully explained to the patient and/or their significant other prior to the catheterization. The Timeout was completed, verifying the correct patient and procedure. The patient's procedural site was prepped and draped in the usual fashion. Local anesthetic was given subcutaneously to right radial region with Lidocaine 2%. Using a modified Seldinger technique, arterial access was obtained via the right radial artery, a 6Fr sheath was inserted.. Left Coronary Artery selective angiography was performed in multiple views using a 5 Fr. 4.0 Bouse catheter. Right Coronary Artery selective angiography was then performed in multiple views using a 5 Fr. 4.0 Bouse catheter. Left Ventriculography was performed in PAEZ projection using a 5 Fr. Pigtail catheter. LV to AO pullback pressures were then recordedThe images were reviewed and options discussed. A decision was then made to proceed with an Intervention, IVUS or other adjunct procedure. AL.75 Guide catheter was inserted and engaged into the RCA. RUNTHROUGH Guide wire was advanced to the RCA. Angiogram performed post ASPIRATION. 2.5X12 Balloon catheter was inserted. Balloon catheter was advanced across lesion in the right coronary, mid. PTCA balloon inflated at 10 atms for 15 secs. 3.0X38 Drug Eluting stent was inserted. Drug Eluting stent was advanced across the lesion in the right coronary, mid. Angiogram performed pre balloon dilatation. Angiogram performed post balloon dilatation. Angiogram performed pre stent deployment. Angiogram performed post stent deployment. 3.25X15 NC Balloon catheter was inserted. Balloon catheter was inserted post stent. PTCA balloon inflated at 12 atms for 8 secs. PTCA balloon inflated at 14 atms for 7 secs. PTCA balloon inflated at 14 atms for 7 secs. PTCA balloon inflated at 14 atms for 5 secs. PTCA balloon inflated at 14 atms for 8 secs. Angiogram performed post balloon dilatation. The arterial sheath was pulled and a TR Band was applied for hemostasis 11cc air inserted. CORONARY ANGIOGRAPHY DOMINANCE: Right Dominant LEFT HEART ASSESSMENT Left Ventricular Ejection Fraction: by LV Gram 60 % LVEDP: 8 mmHg LEFT MAIN: Tubular 40% Distal lesion in Left Main LEFT ANTERIOR DESCENDING ARTERY: LAD: Tubular 60% Mid lesion in LAD RIGHT CORONARY ARTERY: RCA: Tubular 80% Proximal lesion in RCA Thrombus 100% Mid lesion in RCA INTERVENTION INFORMATION LESION SITE: RCA (Proximal) Lesion Complexity: High/C, thrombus present: Yes, lesion length: 36 mm, culprit lesion: Yes Pre Stenosis: 100 % Pre intervention AHSAN flow: 0 PROCEDURE: Thrombectomy, Drug Eluting Stent with pre and post dilatation Post Stenosis: 0 % Post intervention AHSAN flow: 3 Lesion Devices: Terumo .014 180cm Runthrough Extra Floppy straight Cordis 6 Fr AL.75 100cm Guide Catheter Pj Sci EMERGE MR 2.50x12 BALLOON Medtronic 3.0 x 38 ERON FRONTIER RIRI Pj Sci NC EMERGE MR 3.25x15 BALLOON COMPLICATIONS No Complications PROCEDURE MEDICATIONS Versed 1 mg IV Fentanyl 25 mcg IV Versed 1 mg IV Fentanyl 25 mcg IV Oxygen: 2 L/min via nasal cannula Atropine 1mg/10ml 1 amp @ 04/10/2023 13:49:44 Heparin 4000 unit(s) IV 04/10/2023 13:38:42 Nitro 200 mcg IC 04/10/2023 14:00:26 SUMMARY OF HEMODYNAMIC DATA Time AIR REST ECG 13:30:42 AO 147/64 (96) SA 13:35:05 LV 102/4, 8 14:07:09 LV 99/5, 8 14:07:19 LV 106/11, 12 14:09:32 LVp 105/11, 13 14:09:37 Signed By Bo Albert MD On 04/10/2023 16:05:14 Bo Albert MD
[2023-04-10 18:15] LABS: ACT Activated Clotting Time 185 sec (74-137)
[2023-04-10 18:15] LABS: ACT Activated Clotting Time 201 sec (74-137)
--- NOTE | 2023-04-10 20:28 | HP.PCM.HOS_ITS ---
HPI - General General Date of Admission: 04/10/23 Date of Service: 04/10/23 Chief Complaint: Light headedness/stemi HPI Narrative SINDY GREENFIELD, is a 73-year-old male history of diabetes, MARY, hypothyroidism, BPH, high cholesterol presented to [facility] 04/10/2023 with chest tightness that started when he was out walking his dog and he became lightheaded. In ED initial EKG with rate of 44 and it was difficult to tell if there was heart block, rhythm strip did show that [facility] Initially plan was for transfer however troponin was 12 and delta came back at 268, he had repeat EKG due to concern that he could have infarcted earlier causing the atypical rhythms and repeat EKG showed acute inferior NC and patient was taken to [facility]. Hospitalist contacted for admission. Patient seen in ICU at bedside after cath. Patient reports he got up at 7 AM and took his dog out when he got back he had sweats and was lightheaded and continued to feel worse prompting him to come to the ED where he was found to have a STEMI. At present patient has no chest pain or shortness of breath, has no physical complaints whatsoever. [facility] Medical History BPH (benign prostatic hyperplasia) Cancer Cholecystitis Diabetes mellitus Dietary restriction Difficulty swallowing High cholesterol History of renal disease Hypertension Hypothyroid Leg cramping Loss of hearing Neuropathy Non-smoker Sleep apnea treated with continuous positive airway pressure (CPAP) Wears glasses Home Medications levothyroxine 75 mcg tablet 100 mcg PO DAILY THYROID 01/08/13 [History Last Taken 04/09/23] metformin 500 mg tablet,extended release 24 hr 1,000 mg PO BID DIABETES 01/08/13 [History Last Taken 02/15/23] guznwvtx-ewf-tmgmb acid 0.4 mg-lycopene 300 mcg-lutein 250 mcg tablet (Centrum Silver) 1 ea PO DAILY SUPPLEMENT' 01/08/13 [History Last Taken 04/09/23] omega 3-dha 60 mg-epa 90 mg-fish oil 500 mg capsule, delayed release (Fish Oil) 1,000 mg PO BID supplement 05/24/15 [History Last Taken 04/09/23] potassium citrate 10 mEq (1,080 mg) tablet,extended release (Urocit-K 10) 1,080 mg PO DAILY SUPPLEMENT 05/24/15 [History Last Taken 04/09/23] fenofibrate nanocrystallized 145 mg tablet 145 mg PO DAILY CHOLESTEROL 10/19/17 [History Last Taken 04/09/23] ezetimibe 10 mg tablet 10 mg PO DAILY 12/06/22 [History Last Taken 04/09/23] glipizide 5 mg tablet 2.5 mg PO DINNER diabetes 12/06/22 [History Last Taken 04/09/23] vit C 250 mg-vit E 90 mg-zinc 40 mg-copper 1 ya-hcubxi-lqnzdh capsule (PreserVision AREDS-2) 1 tab PO BID eye health 12/06/22 [History Last Taken 04/09/23] cholecalciferol (vitamin D3) 50 mcg (2,000 unit) capsule ([id number]) 50 mcg PO DAILY 02/11/23 [History Last Taken 04/09/23] losartan 100 mg tablet 100 mg PO DAILY 04/10/23 [History Last Taken 04/10/23] Allergy/AdvReac Type Severity Reaction Status Date / Time Ohagzdk-JUA-HdM Reductase AdvReac leg cramps Verified 04/10/23 08:44 Inhibitor [Tawxdhg-Uxq-Bjf Reductase Inhibitor] Surgical History H/O prostatectomy History of tonsillectomy and adenoidectomy Hx of colonoscopy Hx of total knee replacement S/P laparoscopic cholecystectomy Social History household members: spouse current occupational status: retired Smoking Status: Never smoker ROS ROS Narrative General: Denies fever/chills HENT: Denies headache, denies stuffy nose, denies sore throat EYES: Denies changes in vision Resp: Denies cough, denies shortness of breath Cardiac: Denies chest pain GI: Denies abdominal pain, denies changes in bowel, denies nausea/vomiting : Denies changes in urination Extremity: Denies swelling MSK: Denies weakness Neuro: Denies any numbness/tingling Heme: Denies any bleeding or bruising Skin: Denies rashes Psychiatric: No complaints voiced Vital Signs Vital Signs Vital Signs: 04/10/23 08:44 04/10/23 09:07 04/10/23 09:34 Temperature 97.6 F L Temperature Source Temporal Pulse Rate 42 L Respiratory Rate 16 Respiratory Effort Normal Non-Labored Respiratory Pattern Normal Blood Pressure 132/64 H Blood Pressure [BP] Blood Pressure Mean 86 Blood Pressure Mean [BP] Blood Pressure Source Blood Pressure Source [BP] Blood Pressure Position Blood Pressure Position [BP] Blood Pressure Location Blood Pressure Location [BP] Pulse Ox 97 100 Oxygen Delivery Method Room Air Room Air 04/10/23 09:44 04/10/23 09:53 04/10/23 10:00 Temperature Temperature Source Pulse Rate 64 68 Respiratory Rate 12 14 Respiratory Effort Normal Non-Labored Respiratory Pattern Normal Blood Pressure 197/95 H 162/68 H Blood Pressure [BP] Blood Pressure Mean 129 99 Blood Pressure Mean [BP] Blood Pressure Source Blood Pressure Source [BP] Blood Pressure Position Blood Pressure Position [BP] Blood Pressure Location Blood Pressure Location [BP] Pulse Ox 99 98 Oxygen Delivery Method Room Air Room Air 04/10/23 11:00 04/10/23 12:00 04/10/23 13:00 Temperature 98.1 F Temperature Source Temporal Pulse Rate 62 69 70 Respiratory Rate 16 18 16 Respiratory Effort Respiratory Pattern Blood Pressure 171/53 H 159/60 H 140/51 H Blood Pressure [BP] Blood Pressure Mean 92 93 80 Blood Pressure Mean [BP] Blood Pressure Source Blood Pressure Source [BP] Blood Pressure Position Blood Pressure Position [BP] Blood Pressure Location Blood Pressure Location [BP] Pulse Ox 100 99 99 Oxygen Delivery Method Room Air Room Air Room Air 04/10/23 13:00 04/10/23 12:43 04/10/23 14:45 Temperature 97.9 F 98.8 F Temperature Source Temporal Pulse Rate 70 99 Respiratory Rate 16 18 20 H Respiratory Effort Respiratory Pattern Blood Pressure 144/78 H 168/84 H 134/87 H Blood Pressure [BP] Blood Pressure Mean 100 102 Blood Pressure Mean [BP] Blood Pressure Source Monitor Blood Pressure Source [BP] Blood Pressure Position Semi-Fowlers Blood Pressure Position [BP] Blood Pressure Location Left Arm Blood Pressure Location [BP] Pulse Ox 99 98 Oxygen Delivery Method Room Air 04/10/23 15:00 04/10/23 15:15 04/10/23 15:30 Temperature Temperature Source Pulse Rate 97 94 91 Respiratory Rate 14 17 14 Respiratory Effort Respiratory Pattern Blood Pressure 130/91 H 128/99 H 145/87 H Blood Pressure [BP] Blood Pressure Mean 104 108 106 Blood Pressure Mean [BP] Blood Pressure Source Monitor Monitor Monitor Blood Pressure Source [BP] Blood Pressure Position Semi-Fowlers Semi-Fowlers Semi-Fowlers Blood Pressure Position [BP] Blood Pressure Location Left Arm Left Arm Left Arm Blood Pressure Location [BP] Pulse Ox 97 97 98 Oxygen Delivery Method Room Air Room Air Room Air 04/10/23 16:30 04/10/23 15:45 04/10/23 16:00 Temperature 98.7 F Temperature Source Temporal Pulse Rate 82 107 H 85 Respiratory Rate 17 16 15 Respiratory Effort Respiratory Pattern Blood Pressure 144/81 H 125/74 H 142/93 H Blood Pressure [BP] Blood Pressure Mean 102 91 109 Blood Pressure Mean [BP] Blood Pressure Source Monitor Monitor Monitor Blood Pressure Source [BP] Blood Pressure Position Semi-Fowlers Semi-Fowlers Semi-Fowlers Blood Pressure Position [BP] Blood Pressure Location Left Arm Left Arm Left Arm Blood Pressure Location [BP] Pulse Ox 98 97 96 Oxygen Delivery Method Room Air Room Air Room Air 04/10/23 17:00 04/10/23 18:00 04/10/23 19:00 Temperature Temperature Source Pulse Rate 82 77 79 Respiratory Rate 14 17 16 Respiratory Effort Respiratory Pattern Blood Pressure 148/89 H 135/91 H Blood Pressure [BP] 136/74 H Blood Pressure Mean 108 105 Blood Pressure Mean [BP] 94 Blood Pressure Source Monitor Monitor Blood Pressure Source [BP] Monitor Blood Pressure Position Semi-Fowlers Semi-Fowlers Blood Pressure Position [BP] Semi-Fowlers Blood Pressure Location Left Arm Left Arm Blood Pressure Location [BP] Left Arm Pulse Ox 99 97 97 Oxygen Delivery Method Room Air Room Air Room Air Weight Weight: 97.7 kg Body Mass Index (BMI) 31.3 Physical Exam Narrative General: Alert, oriented, no apparent distress HEENT: Atraumatic, normocephalic Eyes: Anicteric, normal conjunctiva, extraocular movements grossly intact Neck: Supple Respiratory: Clear to auscultation bilaterally, normal respiratory effort Cardiovascular: Regular rate and rhythm GI: Soft, nontender, nondistended Extremities: No edema Musculoskeletal: Moving all extremities Neuro: No overt focal neurological deficits Skin: No rashes appreciated Psych: Cooperative Results Lab / Micro Data 04/10/23 09:15 04/10/23 09:15 Labs: Laboratory Results - last 24 hr 04/10/23 09:15: WBC 7.5, RBC 4.10 L, Hgb 12.2 L, Hct 36.2 L, MCV 88.3, MCH 29.8, MCHC 33.7, RDW Std Deviation 43.6, RDW Coeff of [place] 13.5, Plt Count 281, MPV 10.2, Immature Gran % (Auto) 0.300, Neut % (Auto) 64.1, Lymph % (Auto) 21.7, [place] % (Auto) 8.0, Eos % (Auto) 4.8, Baso % (Auto) 1.1 H, Absolute Neuts (auto) 4.8, Absolute Lymphs (auto) 1.62, Nucleated RBC % 0, PT 13.3, INR 1.0, APTT 26.4, Sodium 139, Potassium 3.9, Chloride 108 H, Carbon Dioxide 23.0, Anion Gap 8, BUN 33 H, Creatinine 1.53 H, Estim Creat Clear Calc 42.36, Est GFR (MDRD) Af Amer 58 L, Est GFR (MDRD) Non-Af 48 L, BUN/Creatinine Ratio 21.6 H, Glucose 201 H, Calcium 9.2, Magnesium 2.1, Total Bilirubin 0.20, Direct Bilirubin 0.10, AST 10 L, ALT 22, Alkaline Phosphatase 52, Troponin I High Sens 12, B-Natriuretic Peptide 7.0, Total Protein 7.1, Albumin 3.7, Globulin 3.4, Lipase 338 H 04/10/23 11:42: Troponin I High Sens 268 H* 04/10/23 13:33: Activated Clotting Time 185 H 04/10/23 14:20: Activated Clotting Time 201 H Imagaing Radiology Impression Chest X-Ray 04/10/23 09:35 IMPRESSION: No radiographic evidence of acute cardiopulmonary disease. Electronically Signed: Joey Garibay MD at 10:09 EST , Assessment & Plan Assessment/Plan (1) ST elevation (STEMI) myocardial infarction involving right coronary artery: (2) Hypothyroid: (3) Hypertension: QUALIFIERS: Hypertension type: unspecified Qualified Code(s): I10 - Essential (primary) hypertension (4) Diabetes 1.5, managed as type 2: (5) Coronary artery disease: (6) Transient complete heart block: PLAN: Plan #STEMI -STEMI on EKG in ED -Patient taken emergently to the [facility] and was found to have a complete occlusion of proximal RCA and underwent aspiration thrombectomy, balloon an gioplasty and RIRI. -Will monitor in ICU -Aspirin life long and plavix at least 1 year -Statin -Beta-gian -Eulogio inhibitor as BP allows -Echocardiogram -lipid panel #Transient heart block -In ED, likely d/t stemi, resolved -Monitor on tele #MARY -continue cpap #Hypothyroidism -Continue Synthroid #Type 2 diabetes mellitus -Glucose checks and sliding scale insulin #DVT ppx: Lovenox sub q Tereza Tolentino MD Charges/Coding Visit Charges Inpatient E&M: 92932 Init Hosp L2
--- NOTE | 2023-04-10 20:28 | NURSING ---
patient requested 2L NC for overnight. states that he wears a cpap @ home but when he was here for a prior surgery, O2 worked just fine and he would like to use again this stay. Applied 2L NC.
[2023-04-10] MEDS: Clopidogrel Bisulfate 300 MG Tablet PO (21:13)
[2023-04-10] MEDS: Metoprolol Tartrate 25 MG Tablet 12.5 MG PO (21:15)
[2023-04-10 21:36] LABS: Bedside Glucose 135 mg/dL (74-106)
--- NOTE | 2023-04-10 23:10 | CPS ---
Pt refused to wear CPAP at this time and said he would use oxygen via nasal cannula.
[2023-04-11] VITALS (10 sets, daily range): BP systolic 109–138; BP diastolic 49–70; PULSE 60–83; RESP 11–20; TEMP 36.4–37.1; O2SAT 94–100; BMI 26.1
[2023-04-11] MEDS: Levothyroxine 100 MCG Tablet PO (04:14)
[2023-04-11 05:01] LABS: ALB/GLOB Ratio 1.1 RATIO (0.9-2.4); AST(SGOT) 404 U/L (15-37); Alanine Aminotransfer ALT/SGPT 71 U/L (16-61); Albumin, Serum 3.5 g/dL (3.2-5.0); Alkaline Phosphatase 51 U/L (45-117); Anion Gap 8 (5-15); BUN 28 mg/dL (7-18); BUN/Creat Ratio 20.1 RATIO (10-20); Calcium,Total 8.5 mg/dL (8.5-10.1); Chloride 112 mmol/L (98-107); Cholesterol 164 mg/dL (200); Creatinine, Serum 1.39 mg/dL (0.70-1.30); EST Glomerular Filtration Rate 53 mL/min (>60); Est Glom Filt Rate - Afr Amer 64 mL/min (>60); Estimated Creatinine Clearance 46.62 ml/min; Globulin 3.2 g/dL (2.2-4.2); Glucose 118 mg/dL (74-106); High Density Lipoprotein 28 mg/dL; Potassium 4.1 mmol/L (3.5-5.1); Protein, Total 6.7 g/dL (6.4-8.2); Sodium Level 143 mmol/L (136-145); Triglycerides 208 mg/dL; Very Low Density Lipoprotein 42 mg/dL (5-40)
[2023-04-11 05:14] LABS: Hematocrit 34.5 % (40-54); Hemoglobin 11.5 g/dL (13.0-16.5); Mean Corp Hgb Conc 33.3 g/dL (32-36); Mean Corpuscular Hgb 29.6 pg (27.0-32.0); Mean Corpuscular Volume 88.9 fL (80-94); Mean Platelet Vol. 10.9 fl (6.2-12.0); Platelet Count 245 K/mm3 (150-450); RBC Distribution Width CV 13.8 % (11.6-14.6); RBC Distribution Width SD 44.3 fl (35.1-43.9); Red Blood Count 3.88 M/mm3 (4.6-6.2)
[2023-04-11 06:57] LABS: Bedside Glucose 187 mg/dL (74-106)
--- NOTE | 2023-04-11 07:08 | PN.HOSP_ITS ---
Reason for Visit Reason for Visit: Diagnoses Hypothyroidism, unspecified (04/10/23) Other specified diabetes mellitus without complications (04/10/23) Hyperlipidemia, unspecified (04/10/23) Essential (primary) hypertension (04/10/23) ST elevation (STEMI) myocardial infarction involving right coronary artery (04/10/23) Atherosclerotic heart disease of [place] coronary artery without angina pectoris (04/10/23) Atrioventricular block, complete (04/10/23) Subjective Subjective Patient is a 73-year-old gentleman who presented with chest pain diagnosed with acute ST segment elevation [place] underwent emergency left heart catheterization found to have a complete occlusion of the proximal RCA underwent aspiration thrombectomy, balloon angioplasty RIRI placement. Subsequently transferred to the intensive care unit Objective Data Objective Data Vital Signs: Vital Signs Temp Pulse Resp BP Pulse Ox O2 Del Method O2 Flow Rate 98.5 F 69 18 124/68 H 98 Room Air 2 04/11/23 06:21 04/11/23 06:21 04/11/23 06:21 04/11/23 06:21 04/11/23 06:21 04/11/23 06:21 04/11/23 00:00 Oxygen Flow Rate (L/min) 2 Oxygen Delivery Method Room Air Weight: 81.4 kg Body Mass Index (BMI) 26.1 Intake & Output: Intake and Output for Last 24 Hours 04/09/23 04/10/23 04/11/23 23:59 23:59 23:59 Intake Total 2702.9 / 2942.9 360 / 360 Output Total 1200 / 1200 Balance 1502.9 / 1742.9 360 / 360 Lab / Micro Data 04/11/23 04:32 04/11/23 04:32 Labs: Laboratory Results - last 24 hr 04/10/23 09:15: WBC 7.5, RBC 4.10 L, Hgb 12.2 L, Hct 36.2 L, MCV 88.3, MCH 29.8, MCHC 33.7, RDW Std Deviation 43.6, RDW Coeff of [place] 13.5, Plt Count 281, MPV 10.2, Immature Gran % (Auto) 0.300, Neut % (Auto) 64.1, Lymph % (Auto) 21.7, [place] % (Auto) 8.0, Eos % (Auto) 4.8, Baso % (Auto) 1.1 H, Absolute Neuts (auto) 4.8, Absolute Lymphs (auto) 1.62, Nucleated RBC % 0, PT 13.3, INR 1.0, APTT 26.4, Sodium 139, Potassium 3.9, Chloride 108 H, Carbon Dioxide 23.0, Anion Gap 8, BUN 33 H, Creatinine 1.53 H, Estim Creat Clear Calc 42.36, Est GFR (MDRD) Af Amer 58 L, Est GFR (MDRD) Non-Af 48 L, BUN/Creatinine Ratio 21.6 H, Glucose 201 H, Calcium 9.2, Magnesium 2.1, Total Bilirubin 0.20, Direct Bilirubin 0.10, AST 10 L, ALT 22, Alkaline Phosphatase 52, Troponin I High Sens 12, B-Natriuretic Peptide 7.0, Total Protein 7.1, Albumin 3.7, Globulin 3.4, Lipase 338 H 04/10/23 11:42: Troponin I High Sens 268 H* 04/10/23 13:33: Activated Clotting Time 185 H 04/10/23 14:20: Activated Clotting Time 201 H 04/10/23 20:20: Magnesium 2.0 04/10/23 21:12: POC Glucose 135 H 04/11/23 04:32: WBC 9.0, RBC 3.88 L, Hgb 11.5 L, Hct 34.5 L, MCV 88.9, MCH 29.6, MCHC 33.3, RDW Std Deviation 44.3 H, RDW Coeff of [place] 13.8, Plt Count 245, MPV 10.9, Sodium 143, Potassium 4.1, Chloride 112 H, Carbon Dioxide 23.0, Anion Gap 8, BUN 28 H, Creatinine 1.39 H, Estim Creat Clear Calc 46.62, Est GFR (MDRD) Af Amer 64, Est GFR (MDRD) Non-Af 53 L, BUN/Creatinine Ratio 20.1 H, Glucose 118 H, Calcium 8.5, Total Bilirubin 0.40, AST 404 H, ALT 71 H, Alkaline Phosphatase 51, Total Protein 6.7, Albumin 3.5, Globulin 3.2, Albumin/Globulin Ratio 1.1, Triglycerides 208 H, Cholesterol 164, LDL Cholesterol 94, VLDL Cholesterol 42 H, HDL Cholesterol 28 L 04/11/23 06:20: POC Glucose 187 H Radiography Diagnostic Testing: Radiology Impression Chest X-Ray 04/10/23 09:35 IMPRESSION: No radiographic evidence of acute cardiopulmonary disease. Electronically Signed: Joey Garibay MD at 10:09 EST , Physical Exam Narrative GENERAL: cooperative HEENT: Atraumatic; normocephalic EYES; Anicteric, Normal Conjunctiva NECK; supple, normal thyroid, RESPIRATORY: Diminished to auscultation CARDIOVASCULAR: Regular S1 S2, GI: soft, normoactive bowel sounds, : No Renal angle tenderness; EXTREMITIES: No edema, no clubbing, MUSCULOSKELETAL: no muscle wasting NEURO: Awake; no lateralizing signs. SKIN: No Rash PSYCH; Flat affect Assessment & Plan Assessment/Plan (1) ST elevation (STEMI) myocardial infarction involving right coronary artery: (2) Hypothyroid: QUALIFIERS: Hypothyroidism type: unspecified Qualified Code(s): E03.9 - Hypothyroidism, unspecified (3) Hypertension: QUALIFIERS: Hypertension type: unspecified Qualified Code(s): I10 - Essential (primary) hypertension (4) Diabetes 1.5, managed as type 2: (5) Coronary artery disease: QUALIFIERS: Coronary Disease-Associated Artery/Lesion type: [place] artery [place] vs. transplanted heart: [place] heart Associated angina: with unstable angina Qualified Code(s): I25.110 - Atherosclerotic heart disease of [place] coronary artery with unstable angina pectoris (6) Transient complete heart block: PLAN: Plan Patient is a 73-year-old gentleman who presented with chest pain diagnosed with acute ST segment elevation [place] underwent emergency left heart catheterization found to have a complete occlusion of the proximal RCA underwent aspiration thrombectomy, balloon angioplasty RIRI placement. Subsequently transferred to the intensive care unit 1. Acute STEMI -Patient taken emergently to [facility] and was found to have a complete occlusion of proximal RCA and underwent aspiration thrombectomy, balloon angioplasty and RIRI. Patient has since been managed with guideline directed m edical therapy. Echo ordered pending 2. Transient heart block ? Secondary to patient proximal RCA occlusion patient has since been monitored continuously on telemetry 3. Diabetes mellitus type II -patient's oral hypoglycemics held. Placed on long acting insulin, Accu-Cheks a.c. and at bedtime and covered with sliding scale insulin 4. Hypothyroidism - Patient is on levothyroxine home dose continued 5. Obstructive sleep apnea ? Patient is on CPAP at night 6. Chronic kidney disease stage IIIa Patient baseline creatinine has been ranging between 1.3-1.76. Creatinine on admission was 1.53. Will continue with daily monitoring 7. DVT prophylaxis - On enoxaparin Time spent in the patient's overall evaluation,decision-making process, review of diagnostic data, adjustment of management, discussion with other providers, nursing nursing and ancillary staff involved in patient's care documentation, 50 Minutes
--- NOTE | 2023-04-11 08:24 | EKG12_ITS ---
Test Reason : ekg changes Blood Pressure : / mmHG Vent. Rate : 067 BPM Atrial Rate : 067 BPM P-R Int : 316 ms QRS Dur : 090 ms QT Int : 360 ms P-R-T Axes : 056 -24 040 degrees QTc Int : 380 ms Critical Test Result: STEMI Sinus rhythm with 1st degree A-V block Possible Left atrial enlargement Minimal voltage criteria for LVH, may be normal variant ( R in aVL ) Inferior infarct , acute ACUTE ME / STEMI Consider right ventricular involvement in acute inferior infarct Abnormal ECG Confirmed by LINDA SOLER, SHABANA ([id number]), editor producer MARISOL SOTOMAYOR ([id number]) on 04/13/2023 10:40:29 AM Referred By: Roosevelt Confirmed By:SHABANA MCKEON MD
--- NOTE | 2023-04-11 08:53 | PCM.PN.CARD ---
Subjective Subjective Denies any complaints. No chest pain. No shortness of breath. Objective Data Vital Signs: Vital Signs Temp Pulse Resp BP Pulse Ox O2 Del Method O2 Flow Rate 98.5 F 69 18 124/68 H 98 Room Air 2 04/11/23 06:21 04/11/23 06:21 04/11/23 06:21 04/11/23 06:21 04/11/23 06:21 04/11/23 06:21 04/11/23 00:00 Oxygen Flow Rate (L/min) 2 Oxygen Delivery Method Room Air Weight: 179 lb 7.3 oz Body Mass Index (BMI) 26.1 Intake & Output: Intake and Output for Last 24 Hours 04/09/23 04/10/23 04/11/23 23:59 23:59 23:59 Intake Total 2702.9 / 2942.9 360 / 360 Output Total 1200 / 1200 Balance 1502.9 / 1742.9 360 / 360 Lab / Micro Data 04/11/23 04:32 04/11/23 04:32 Labs: Laboratory Results - last 24 hr 04/10/23 09:15: WBC 7.5, RBC 4.10 L, Hgb 12.2 L, Hct 36.2 L, MCV 88.3, MCH 29.8, MCHC 33.7, RDW Std Deviation 43.6, RDW Coeff of [place] 13.5, Plt Count 281, MPV 10.2, Immature Gran % (Auto) 0.300, Neut % (Auto) 64.1, Lymph % (Auto) 21.7, [place] % (Auto) 8.0, Eos % (Auto) 4.8, Baso % (Auto) 1.1 H, Absolute Neuts (auto) 4.8, Absolute Lymphs (auto) 1.62, Nucleated RBC % 0, PT 13.3, INR 1.0, APTT 26.4, Sodium 139, Potassium 3.9, Chloride 108 H, Carbon Dioxide 23.0, Anion Gap 8, BUN 33 H, Creatinine 1.53 H, Estim Creat Clear Calc 42.36, Est GFR (MDRD) Af Amer 58 L, Est GFR (MDRD) Non-Af 48 L, BUN/Creatinine Ratio 21.6 H, Glucose 201 H, Calcium 9.2, Magnesium 2.1, Total Bilirubin 0.20, Direct Bilirubin 0.10, AST 10 L, ALT 22, Alkaline Phosphatase 52, Troponin I High Sens 12, B-Natriuretic Peptide 7.0, Total Protein 7.1, Albumin 3.7, Globulin 3.4, Lipase 338 H 04/10/23 11:42: Troponin I High Sens 268 H* 04/10/23 13:33: Activated Clotting Time 185 H 04/10/23 14:20: Activated Clotting Time 201 H 04/10/23 20:20: Magnesium 2.0 04/10/23 21:12: POC Glucose 135 H 04/11/23 04:32: WBC 9.0, RBC 3.88 L, Hgb 11.5 L, Hct 34.5 L, MCV 88.9, MCH 29.6, MCHC 33.3, RDW Std Deviation 44.3 H, RDW Coeff of [place] 13.8, Plt Count 245, MPV 10.9, Sodium 143, Potassium 4.1, Chloride 112 H, Carbon Dioxide 23.0, Anion Gap 8, BUN 28 H, Creatinine 1.39 H, Estim Creat Clear Calc 46.62, Est GFR (MDRD) Af Amer 64, Est GFR (MDRD) Non-Af 53 L, BUN/Creatinine Ratio 20.1 H, Glucose 118 H, Calcium 8.5, Total Bilirubin 0.40, AST 404 H, ALT 71 H, Alkaline Phosphatase 51, Total Protein 6.7, Albumin 3.5, Globulin 3.2, Albumin/Globulin Ratio 1.1, Triglycerides 208 H, Cholesterol 164, LDL Cholesterol 94, VLDL Cholesterol 42 H, HDL Cholesterol 28 L 04/11/23 06:20: POC Glucose 187 H Cardiology Labs/Tests 04/10/23 09:15: WBC 7.5, RBC 4.10 L, Hgb 12.2 L, Hct 36.2 L, MCV 88.3, MCH 29.8, MCHC 33.7, Plt Count 281, MPV 10.2, Immature Gran % (Auto) 0.300, Neut % (Auto) 64.1, Lymph % (Auto) 21.7, [place] % (Auto) 8.0, Eos % (Auto) 4.8, Baso % (Auto) 1.1 H, Absolute Neuts (auto) 4.8, Nucleated RBC % 0, PT 13.3, INR 1.0, APTT 26.4, Sodium 139, Potassium 3.9, Chloride 108 H, Carbon Dioxide 23.0, Anion Gap 8, BUN 33 H, Creatinine 1.53 H, Est GFR (MDRD) Af Amer 58 L, Est GFR (MDRD) Non-Af 48 L, BUN/Creatinine Ratio 21.6 H, Glucose 201 H, Calcium 9.2, Magnesium 2.1, Total Bilirubin 0.20, Direct Bilirubin 0.10, B-Natriuretic Peptide 7.0 04/10/23 20:20: Magnesium 2.0 04/11/23 04:32: WBC 9.0, RBC 3.88 L, Hgb 11.5 L, Hct 34.5 L, MCV 88.9, MCH 29.6, MCHC 33.3, Plt Count 245, MPV 10.9, Sodium 143, Potassium 4.1, Chloride 112 H, Carbon Dioxide 23.0, Anion Gap 8, BUN 28 H, Creatinine 1.39 H, Est GFR (MDRD) Af Amer 64, Est GFR (MDRD) Non-Af 53 L, BUN/Creatinine Ratio 20.1 H, Glucose 118 H, Calcium 8.5, Total Bilirubin 0.40, Triglycerides 208 H, Cholesterol 164, LDL Cholesterol 94, VLDL Cholesterol 42 H, HDL Cholesterol 28 L Rhythm: EKG: ECHO: Stress Test: Cardiac Cath: PCI: CT Surgery: Holter monitor: EPS: PPM: CXR: Chest CT Scan: Radiography Diagnostic Testing: Radiology Impression Chest X-Ray 04/10/23 09:35 IMPRESSION: No radiographic evidence of acute cardiopulmonary disease. Electronically Signed: Joey Garibay MD at 10:09 EST , Physical Exam Narrative Comfortable. No distress. Heart sounds 1 and 2 normal. No rubs or murmurs. Chest clear to auscultation bilaterally. Alert oriented x 3. No ankle edema. Assessment & Plan Assessment/Plan (1) ST elevation (STEMI) myocardial infarction involving right coronary artery: PLAN: Status post percutaneous intervention to the right coronary artery. Stable. Asymptomatic. Continue aspirin lifelong. Clopidogrel for at least 1 year. Couple of runs of nonsustained VT last night. Monitor. No beta-blockers for now in view of AV conduction abnormalities. (2) Coronary artery disease: PLAN: See #1 above. Aspirin, Plavix. Risk factor modification. (3) Transient complete heart block: PLAN: Complete heart block resolved with revascularization of the right coronary artery. Presently with markedly prolonged [place] interval. First-degree AV block with occasional Wenckebach type I second-degree heart block. Will stop beta-blockers. Monitor. (4) Hypertension: QUALIFIERS: Hypertension type: unspecified Qualified Code(s): I10 - Essential (primary) hypertension PLAN: Continue losartan. (5) Dyslipidemia: PLAN: Intolerant of statins. Per patient, he has tried multiple statins in the past with intolerance secondary to myalgias. Continue ezetimibe and fenofibrate. (6) Diabetes 1.5, managed as type 2: PLAN: As per internal medicine.
[2023-04-11] MEDS: Aspirin E.C. 81 MG Tablet PO (08:55)
[2023-04-11] MEDS: Fenofibrate 145 MG Tablet PO (08:55)
--- NOTE | 2023-04-11 10:00 | EKG12_ITS ---
Test Reason : RHYTHM CHANGE Blood Pressure : / mmHG Vent. Rate : 067 BPM Atrial Rate : 067 BPM P-R Int : 414 ms QRS Dur : 098 ms QT Int : 372 ms P-R-T Axes : 036 -25 024 degrees QTc Int : 393 ms Critical Test Result: STEMI Sinus rhythm with 1st degree A-V block Minimal voltage criteria for LVH, may be normal variant ( R in aVL ) Inferior infarct , acute ACUTE DC / STEMI Consider right ventricular involvement in acute inferior infarct Abnormal ECG Confirmed by LINDA SOLER, SHABANA ([id number]), acquisition editor MARISOL SOTOMAYOR ([id number]) on 04/13/2023 10:36:24 AM Referred By: DREW Confirmed By:SHABANA MCKEON MD
[2023-04-11] MEDS: Losartan Potassium 25 MG Tablet PO (11:02)
[2023-04-11] MEDS: Ezetimibe 10 MG Tablet PO (11:02)
[2023-04-11] MEDS: Clopidogrel Bisulfate 75 MG Tablet PO (11:03)
[2023-04-11] MEDS: Enoxaparin 40 MG/0.4 ML Syringe SC (11:03)
[2023-04-11 14:02] LABS: Bedside Glucose 134 mg/dL (74-106)
[2023-04-11 17:26] LABS: Bedside Glucose 104 mg/dL (74-106)
[2023-04-11 22:37] LABS: Bedside Glucose 142 mg/dL (74-106)
[2023-04-12] VITALS (7 sets, daily range): BP systolic 122–155; BP diastolic 60–83; PULSE 68–85; RESP 15–21; TEMP 36.3–36.8; O2SAT 96–100; BMI 25.7
[2023-04-12] MEDS: 0.9% Saline Lock 10 ML Syringe IV (05:38)
[2023-04-12] MEDS: Levothyroxine 100 MCG Tablet PO (05:38)
[2023-04-12 05:48] LABS: Absolute Lymphocyte Count 1.58 X10^3/uL (0.83-4.51); Absolute Neutrophil Count 5.7 X10^3/uL (2.0-7.7); Basophil# 0.08 X10^3/uL; Basophil% 0.9 % (0-1); Eosinophil# 0.37 X10^3/uL; Eosinophils% 4.3 % (0-5); Hemoglobin 11.8 g/dL (13.0-16.5); Lymphocyte # 1.58 X10^3/ul (0.83-4.51); Lymphocyte % 18.5 % (19-41); Mean Corp Hgb Conc 32.8 g/dL (32-36); Mean Corpuscular Volume 88.5 fL (80-94); Mean Platelet Vol. 10.5 fl (6.2-12.0); Monocyte# 0.77 X10^3/uL; NRBC Flagged by Analyzer 0 % (0-5); Neutrophil # 5.73 X10^3/uL (2.7-7.7); Neutrophil % 66.9 % (47-70); Platelet Count 243 K/mm3 (150-450); RBC Distribution Width CV 13.7 % (11.6-14.6); RBC Distribution Width SD 44.4 fl (35.1-43.9); Red Blood Count 4.07 M/mm3 (4.6-6.2); White Blood Count 8.6 K/mm3 (4.4-11.0)
[2023-04-12 06:02] LABS: Anion Gap 6 (5-15); BUN 26 mg/dL (7-18); BUN/Creat Ratio 19.5 RATIO (10-20); Calcium,Total 8.5 mg/dL (8.5-10.1); Chloride 114 mmol/L (98-107); Creatinine, Serum 1.33 mg/dL (0.70-1.30); EST Glomerular Filtration Rate 56 mL/min (>60); Est Glom Filt Rate - Afr Amer 68 mL/min (>60); Estimated Creatinine Clearance 48.73 ml/min; Glucose 132 mg/dL (74-106); Magnesium 2.3 mg/dL (1.6-2.6); Phosphorus 3.8 mg/dL (2.5-4.9); Potassium 3.9 mmol/L (3.5-5.1); Sodium Level 143 mmol/L (136-145)
--- NOTE | 2023-04-12 06:29 | EKG12_ITS ---
Test Reason : Blood Pressure : / mmHG Vent. Rate : 100 BPM Atrial Rate : 100 BPM P-R Int : 276 ms QRS Dur : 098 ms QT Int : 312 ms P-R-T Axes : 050 -18 012 degrees QTc Int : 402 ms Critical Test Result: STEMI Sinus rhythm with 1st degree A-V block Minimal voltage criteria for LVH, may be normal variant ( R in aVL ) Inferior infarct , acute ACUTE MS / STEMI Consider right ventricular involvement in acute inferior infarct Confirmed by LINDA SOLER, SHABANA ([id number]), magazine editor MARISOL SOTOMAYOR ([id number]) on 04/13/2023 10:40:04 AM Referred By: Confirmed By:SHABANA MCKOEN MD
[2023-04-12 06:59] LABS: Bedside Glucose 129 mg/dL (74-106)
--- NOTE | 2023-04-12 07:25 | PCM.PN.HOSP ---
Reason for Visit Reason for Visit: Diagnoses Hypothyroidism, unspecified (04/10/23) Other specified diabetes mellitus without complications (04/10/23) Hyperlipidemia, unspecified (04/10/23) Essential (primary) hypertension (04/10/23) ST elevation (STEMI) myocardial infarction involving right coronary artery (04/10/23) Atherosclerotic heart disease of [place] coronary artery without angina pectoris (04/10/23) Atherosclerotic heart disease of [place] coronary artery with unstable angina pectoris (04/10/23) Atrioventricular block, complete (04/10/23) Subjective Subjective Patient seen, did remain relatively stable. Plan is for patient to be transferred from the intensive care unit to progressive care unit. Patient scheduled to undergo 2D echo. Objective Data Objective Data Vital Signs: Vital Signs Temp Pulse Resp BP Pulse Ox O2 Del Method O2 Flow Rate 97.3 F L 73 16 150/60 H 96 Room Air 2 04/12/23 06:00 04/12/23 06:00 04/12/23 06:00 04/12/23 06:00 04/12/23 06:00 04/12/23 06:00 04/12/23 00:00 Oxygen Flow Rate (L/min) 2 Oxygen Delivery Method Room Air Weight: 80.4 kg Body Mass Index (BMI) 25.7 Intake & Output: Intake and Output for Last 24 Hours 04/10/23 04/11/23 04/12/23 23:59 23:59 23:59 Intake Total 2702.9 / 2942.9 600 / 600 120 / 120 Output Total 1200 / 1200 1100 / 1100 Balance 1502.9 / 1742.9 600 / 600 -980 / -980 Lab / Micro Data 04/12/23 05:40 04/12/23 05:40 Labs: Laboratory Results - last 24 hr 04/11/23 12:38: POC Glucose 134 H 04/11/23 17:06: POC Glucose 104 04/11/23 22:18: POC Glucose 142 H 04/12/23 05:40: WBC 8.6, RBC 4.07 L, Hgb 11.8 L, Hct 36.0 L, MCV 88.5, MCH 29.0, MCHC 32.8, RDW Std Deviation 44.4 H, RDW Coeff of [place] 13.7, Plt Count 243, MPV 10.5, Immature Gran % (Auto) 0.400, Neut % (Auto) 66.9, Lymph % (Auto) 18.5 L, [place] % (Auto) 9.0, Eos % (Auto) 4.3, Baso % (Auto) 0.9, Absolute Neuts (auto) 5.7, Absolute Lymphs (auto) 1.58, Nucleated RBC % 0, Sodium 143, Potassium 3.9, Chloride 114 H, Carbon Dioxide 23.0, Anion Gap 6, BUN 26 H, Creatinine 1.33 H, Estim Creat Clear Calc 48.73, Est GFR (MDRD) Af Amer 68, Est GFR (MDRD) Non-Af 56 L, BUN/Creatinine Ratio 19.5, Glucose 132 H, Calcium 8.5, Phosphorus 3.8, Magnesium 2.3 04/12/23 06:40: POC Glucose 129 H Physical Exam Narrative GENERAL: cooperative HEENT: Atraumatic; normocephalic EYES; Anicteric, Normal Conjunctiva NECK; supple, normal thyroid, RESPIRATORY: Diminished to auscultation CARDIOVASCULAR: Regular S1 S2, GI: soft, normoactive bowel sounds, : No Renal angle tenderness; EXTREMITIES: No edema, no clubbing, MUSCULOSKELETAL: no muscle wasting NEURO: Awake; no lateralizing signs. SKIN: No Rash PSYCH; Flat affect Assessment & Plan Assessment/Plan (1) ST elevation (STEMI) myocardial infarction involving right coronary artery: (2) Coronary artery disease: QUALIFIERS: Associated angina: with unstable angina Coronary Disease-Associated Artery/Lesion type: [place] artery [place] vs. transplanted heart: [place] heart Qualified Code(s): I25.110 - Atherosclerotic heart disease of [place] coronary artery with unstable angina pectoris (3) Transient complete heart block: PLAN: Plan Patient is a 73-year-old gentleman who presented with chest pain diagnosed with acute ST segment elevation [place] underwent emergency left heart catheterization found to have a complete occlusion of the proximal RCA underwent aspiration thrombectomy, balloon angioplasty RIRI placement. Subsequently transferred to the intensive care unit 1. Acute STEMI -Patient taken emergently to the Perfect Bind Machine Operator and was found to have a complete occlusion of proximal RCA and underwent aspiration thrombectomy, balloon angioplasty and RIRI. Patient has since been managed with guideline directed medical therapy. Echo ordered pending ? 04/12/2023; echo performed awaiting results 2. Transient heart block ? Secondary to patient proximal RCA occlusion patient has since been monitored continuously on telemetry ? 04/12/2023 did continue with continuous telemetry monitoring patient out of beta-blockers in view of his transient heart block per recommendations from cardiac 3. Diabetes mellitus type II -patient's oral hypoglycemics held. Placed on long acting insulin, Accu-Cheks a.c. and at bedtime and covered with sliding scale insulin 4. Hypothyroidism - Patient is on levothyroxine home dose continued 5. Obstructive sleep apnea ? Patient is on CPAP at night 6. Chronic kidney disease stage IIIa Patient baseline creatinine has been ranging between 1.3-1.76. Creatinine on admission was 1.53. Will continue with daily monitoring 7. DVT prophylaxis - On enoxaparin Time spent in the patient's overall evaluation,decision-making process, review of diagnostic data, adjustment of management, discussion with other providers, nursing nursing and ancillary staff involved in patient's care documentation, 50 Minutes Charges/Coding Visit Charges Inpatient E&M: [id number] [place] [id number]
--- NOTE | 2023-04-12 08:00 | ECHOD_ITS ---
Reason For Study: VSD Procedure This was a 2D Doppler, Color Flow transthoracic echocardiogram. Exam performed portable in ICU/CCU. Left Ventricle Normal LV size. Mild concentric left ventricular hypertrophy. Left ventricular systolic function is normal. The estimated ejection fraction is 55 %. Stage 1 diastolic dysfunction. No regional wall motion abnormalities noted. Right Ventricle Normal RV size. Normal systolic function. Atria Normal left atrium. Normal right atrium. Bubble contrast study negative for right to left interatrial shunt. Mitral Valve Normal mitral valve. Tricuspid Valve Normal tricuspid valve. Mild tricuspid valve insufficiency. Aortic Valve Normal aortic valve. Pulmonic Valve Normal pulmonic valve. Great Vessels Normal aortic root. The pulmonary artery is normal size. Normal inferior vena cava. Pericardium/Pleural No pericardial effusion. Medication Performed a rapid injection of agitated mix of 9 cc saline and 1cc air to assess for atrial septal defect. MMode/2D Measurements & Calculations LVIDd: 4.5 cm IVSd: 1.2 cm Ao root diam: 3.4 cm LVIDs: 3.2 cm LVPWd: 1.3 cm RVDd: 3.4 cm FS: 29.1 % LAV(MOD-bp): 42.9 ml LVAd ap4: 27.2 cm2 SV(MOD-sp4): 44.1 ml LAV(MOD-bp) Indexed: 21.8 ml/m2 LVLd ap4: 8.0 cm LAV(MOD-sp2): 48.4 ml EDV(MOD-sp4): 79.5 ml LAV(MOD-sp4): 34.0 ml EDV(sp4-el): 78.8 ml LVAs ap4: 16.3 cm2 LVLs ap4: 6.9 cm ESV(MOD-sp4): 35.4 ml ESV(sp4-el): 32.7 ml EF(MOD-sp4): 55.5 % EF(sp4-el): 58.6 % SV(sp4-el): 46.1 ml LA A4 area: 14.7 cm2 LA dimension(2D): 3.5 cm RA A4 area: 14.1 cm2 TAPSE: 1.9 cm Time Measurements MV dec time: 0.23 sec Doppler Measurements & Calculations MV E max yusuf: 61.3 cm/sec Lat Peak E' Yusuf: 8.9 cm/sec Med Peak E' Yusuf: 5.5 cm/sec MV A max yusuf: 87.3 cm/sec E/E' lat: 6.9 E/E' med: 11.1 MV E/A: 0.70 MV dec slope: 262.7 cm/sec2 Ao V2 max: 142.6 cm/sec LV V1 max: 85.4 cm/sec Ao max P.1 mmHg LV V1 max P.9 mmHg Ao V2 mean: 107.5 cm/sec Ao mean P.9 mmHg Ao V2 VTI: 30.3 cm PA V2 max: 76.3 cm/sec TR max yusuf: 191.1 cm/sec TR max P.6 mmHg ECHO/Echo Complete Interpretation Summary Normal LV size. Left ventricular systolic function is normal. The estimated ejection fraction is 55 %. Bubble contrast study negative for right to left interatrial shunt. Mild concentric left ventricular hypertrophy. Stage 1 diastolic dysfunction. Ordering Physician: Bo Albert Referring Physician: Mita Zaidi Performed By: Mita Rocha, RDCS, RVT
[2023-04-12] MEDS: Losartan Potassium 25 MG Tablet PO (09:09)
[2023-04-12] MEDS: Fenofibrate 145 MG Tablet PO (09:09)
[2023-04-12] MEDS: Aspirin E.C. 81 MG Tablet PO (09:09)
[2023-04-12] MEDS: Clopidogrel Bisulfate 75 MG Tablet PO (09:09)
[2023-04-12] MEDS: Enoxaparin 40 MG/0.4 ML Syringe SC (09:09)
[2023-04-12] MEDS: Ezetimibe 10 MG Tablet PO (09:09)
--- NOTE | 2023-04-12 10:39 | PCM.PN.CARD ---
Subjective Subjective Denies any complaints. No chest pain or shortness of breath. Objective Data Vital Signs: Vital Signs Temp Pulse Resp BP Pulse Ox O2 Del Method O2 Flow Rate 97.3 F L 73 16 150/60 H 96 Room Air 2 04/12/23 06:00 04/12/23 06:00 04/12/23 06:00 04/12/23 06:00 04/12/23 06:00 04/12/23 06:00 04/12/23 00:00 Oxygen Flow Rate (L/min) 2 Oxygen Delivery Method Room Air Weight: 177 lb 4.026 oz Body Mass Index (BMI) 25.7 Intake & Output: Intake and Output for Last 24 Hours 04/10/23 04/11/23 04/12/23 23:59 23:59 23:59 Intake Total 2702.9 / 2942.9 600 / 600 120 / 120 Output Total 1200 / 1200 1100 / 1100 Balance 1502.9 / 1742.9 600 / 600 -980 / -980 Lab / Micro Data 04/12/23 05:40 04/12/23 05:40 Labs: Laboratory Results - last 24 hr 04/11/23 12:38: POC Glucose 134 H 04/11/23 17:06: POC Glucose 104 04/11/23 22:18: POC Glucose 142 H 04/12/23 05:40: WBC 8.6, RBC 4.07 L, Hgb 11.8 L, Hct 36.0 L, MCV 88.5, MCH 29.0, MCHC 32.8, RDW Std Deviation 44.4 H, RDW Coeff of [place] 13.7, Plt Count 243, MPV 10.5, Immature Gran % (Auto) 0.400, Neut % (Auto) 66.9, Lymph % (Auto) 18.5 L, [place] % (Auto) 9.0, Eos % (Auto) 4.3, Baso % (Auto) 0.9, Absolute Neuts (auto) 5.7, Absolute Lymphs (auto) 1.58, Nucleated RBC % 0, Sodium 143, Potassium 3.9, Chloride 114 H, Carbon Dioxide 23.0, Anion Gap 6, BUN 26 H, Creatinine 1.33 H, Estim Creat Clear Calc 48.73, Est GFR (MDRD) Af Amer 68, Est GFR (MDRD) Non-Af 56 L, BUN/Creatinine Ratio 19.5, Glucose 132 H, Calcium 8.5, Phosphorus 3.8, Magnesium 2.3 04/12/23 06:40: POC Glucose 129 H Cardiology Labs/Tests 04/12/23 05:40: WBC 8.6, RBC 4.07 L, Hgb 11.8 L, Hct 36.0 L, MCV 88.5, MCH 29.0, MCHC 32.8, Plt Count 243, MPV 10.5, Immature Gran % (Auto) 0.400, Neut % (Auto) 66.9, Lymph % (Auto) 18.5 L, [place] % (Auto) 9.0, Eos % (Auto) 4.3, Baso % (Auto) 0.9, Absolute Neuts (auto) 5.7, Nucleated RBC % 0, Sodium 143, Potassium 3.9, Chloride 114 H, Carbon Dioxide 23.0, Anion Gap 6, BUN 26 H, Creatinine 1.33 H, Est GFR (MDRD) Af Amer 68, Est GFR (MDRD) Non-Af 56 L, BUN/Creatinine Ratio 19.5, Glucose 132 H, Calcium 8.5, Phosphorus 3.8, Magnesium 2.3 Rhythm: EKG: ECHO: Stress Test: Cardiac Cath: PCI: CT Surgery: Holter monitor: EPS: PPM: CXR: Chest CT Scan: Physical Exam Narrative Comfortable. No distress. Heart sounds 1 and 2 normal. No rubs or murmurs. Chest clear to auscultation bilaterally. Alert oriented x 3. No ankle edema. Assessment & Plan Assessment/Plan (1) ST elevation (STEMI) myocardial infarction involving right coronary artery: PLAN: Status post percutaneous intervention to the right coronary artery. Stable. Asymptomatic. Continue aspirin lifelong. Clopidogrel for at least 1 year. (2) Coronary artery disease: QUALIFIERS: Coronary Disease-Associated Artery/Lesion type: [place] artery [place] vs. transplanted heart: [place] heart Associated angina: with unstable angina Qualified Code(s): I25.110 - Atherosclerotic heart disease of [place] coronary artery with unstable angina pectoris PLAN: See #1 above. Aspirin, Plavix. Risk factor modification. (3) Transient complete heart block: PLAN: Complete heart block resolved with revascularization of the right coronary artery. Residual first-degree AV block. VA interval improved. Continue to monitor. No beta-blockers for now. (4) Hypertension: QUALIFIERS: Hypertension type: unspecified Qualified Code(s): I10 - Essential (primary) hypertension PLAN: Continue losartan. Increase dose as blood pressure above goal. (5) Dyslipidemia: PLAN: Intolerant of statins. Per patient, he has tried multiple statins in the past with intolerance secondary to myalgias. Continue ezetimibe and fenofibrate. (6) Diabetes 1.5, managed as type 2: PLAN: As per internal medicine. PLAN: Plan May transfer to stepdown unit. Discharge home tomorrow morning if continues to be stable.
[2023-04-12] MEDS: Losartan Potassium 50 MG Tablet PO (11:28)
--- NOTE | 2023-04-12 12:05 | CASEMGMT ---
RN CM Face to Face with patient for initial transition planning/care coordination assessment. RN CM introduced self and role at [facility]. Patient lying in bed, alert and oriented, at bedside. Patient willing to participate in assessment and is able to answer all questions appropriately. Care providers, pharmacy, and demographics verified. Patient wishes to discharge home, denies need for home health at this time. Patient states he has no further needs or concerns at this time. CM to follow for discharge planning needs that may arise. PCP: Dejuan Specialists: Clifford software development project manager Preferred Pharmacy: [facility] Insurance: [employer] Prescription Benefit: yes Living Will/HPOA: yes, Anabelle Ferrell LNOK: self, Living Arrangements: Patient lives with in a single story home with 2 steps and railing enter the home. Patient is independent at home. Transportation: self, DME/HHC: Patient has raised toilet, cane, grab bars, cpap, and glucometer at home. No previous HHC or SNF Disposition Plan: Patient to discharge home with family support and follow-up plans in place. Tari LEMUS, RN, CM
--- NOTE | 2023-04-12 12:19 | CASEMGMT ---
Social Work SW spoke w/pt and in room. confirms is POA and then daughter Kiana. They do not have copies of the documents, but states they are on file at [facility]. LANA Flowers
[2023-04-12 12:28] LABS: Bedside Glucose 130 mg/dL (74-106)
--- NOTE | 2023-04-12 12:38 | CRPHASE1_ITS ---
Patient Communication Patient Information Former Patient:: Phase I PHII Cardiac Rehab Discussed with Patient:: Yes Guide to Cardiac Rehab Given to Patient:: Yes Cardiac Rehab Facility Choice List Given to Patient:: Yes Communication to Cardiac Rehab [employer]:: [facility] Sessions:: 36 sessions - 3 days/wk, 12 weeks Post Discharge Choice Letter Given to Patient:: Yes Medical/Surgical History Medical History CA:: Yes CAD:: Yes Congestive Heart Failure: Diabetes Type II:: Yes Hypertension:: Yes Dyslipidemia:: Yes CVA/TIA: Thyroid:: Yes Cardiac Rehabilitation Info Program Information Cardiac Rehabilitation Program Information: Cardiac Rehab The cardiac rehab team at [facility] [place] consists of highly skilled exercise physiologists, nurses, respiratory therapists and physicians working together with you. Our purpose is to help you have a full recovery and achieve the goals you set for yourself. Over the years many of our patients have returned to activities they assumed they would never do again! We can help restore your confidence and motivation to make lifestyle changes that can have a significant impact on your health and quality of life! We can help answer questions and concerns you may have about exercise, lifestyle, medications, diet, stress and anxiety which are common following a hospitalization. WE monitor ECG and vital signs during exercise and discuss your progress with you and report to your physician(s). Cardiac Rehab is proven to help reduce readmissions, improve functional capacity and lower recurrence of problems with your heart. Our Cardiac Rehab program is Certified by the [employer] of [employer]-Vascular and Pulmonary Rehabilitation (AACVPR) and Accredited by the [employer] through our [facility]. You can contact us at . We invite you to call us with your questions or to get started in our program. If you have other questions or concerns be sure to ask your physician/provider during your follow-up visit. WE look forward to seeing you!
--- NOTE | 2023-04-12 12:39 | CRPH1.INSTRU ---
General Education Discussed with Patient CAD and cardiac anatomy and function:: Patient communicates acknowledgment Sign/Symptoms of SD:: Patient communicates acknowledgment Antiplatelet therapy: Patient communicates acknowledgment Proper use of NTG-SL: Patient communicates acknowledgment Emergency procedures and activation of EMS: Patient communicates acknowledgment Compliance of all prescribed medications: Patient communicates acknowledgment Smoking Risk Factors Patient Nicotine/Smoking Risk Factors Are:: Second-hand smoke Recommendations Recommendations Include:: Second-hand smoke recommendation Dyslipidemia Risk Factors Patient Dyslipidemia Risk Factors Are:: Total Cholesterol Recommendations Recommendations Include:: Lipid profile not available Response Code Dyslipidemia Response Code:: Patient communicates acknowledgment Overweight/Obesity Risk Factors Patient Overweight/Obesity Risk Factors Are:: BMI Normal [24-29 & > 65 years old] Recommendations Recommendations Include:: Exercise 5-7 times/week Response Code Overweight/Obesity:: Patient communicates acknowledgment Hypertension Recommendations Recommendations Include:: BP <130/80 if diabetic Response Code Hypertension:: Patient communicates acknowledgment Heart Disease Risk Factors Patient Heart Disease Risk Factors Are:: Previous cardiac event Recommendations Recommendations Include:: Educated family members of their risk Response Code Heart Disease Response Code:: Patient communicates acknowledgment Diabetes Risk Factors Patient Diabetes Risk Factors Are:: Elevated blood sugars Recommendations Recommendations Include:: Maintain fasting blood sugars 70-110 md/dL, Maintain HgbA1c of 6% or less, Monitor blood sugar as prescribed and Diabetic dietary guidelines Response Code Diabetes:: Patient communicates acknowledgment Metabolic Syndrome Recommendations Recommendations Include:: Does not meet criteria Sedentary Recommendations Recommendations Include:: Benefits of regular exercise and Monitored Outpatient Cardiac Rehab Response Code Sedentary Response Code:: Patient communicates acknowledgment Stress Recommendations Recommendations Include:: Identification of stressors, and assessment of coping skills and Stress management techniques Response Code Stress Response Code:: Patient communicates acknowledgment
--- NOTE | 2023-04-12 14:19 | CHAPLAIN ---
Type of Pastoral Visit _x__ Initial Visit ___ Follow-up Visit ___ On-call Visit ___ General Patient Visit ___ Spiritual Assessment ___ Family Conference ___ Bereavement ___ Rapid Response ___ Code Blue ___ Other (describe below) Pastoral Care Referral From _x__ Patient ___ Family ___ Nurse ___ Physician ___ Study Manager ___ Conveyor Console Operator ___ Other (describe below) Sacrament/Intervention _x__ Active listening ___ Anointing ___ Holiness ___ Bereavement ___ Communion _x__ Elena exploration ___ _x__ Life review _x__ Prayer ___ Reconciliation ___ Sacrament of Sick ___ Supportive presence ___ Wedding ___ Other (describe below) Pastoral Comments patient is welcoming and very talkative; pt and spouse both talk about decision to come to hospital and for the discovery of heart issues; pt gives life review and speaks of involvement in a local sikh; pt welcomes future visits and a prayer for today
[2023-04-12 17:01] LABS: Bedside Glucose 106 mg/dL (74-106)
--- NOTE | 2023-04-12 21:10 | CPS ---
pt has cpap at home -does not want to wear here-will wear 2 l/m via nc
[2023-04-12 21:31] LABS: Bedside Glucose 118 mg/dL (74-106)
[2023-04-13 05:28] VITALS: BMI 25.7
[2023-04-13] MEDS: Levothyroxine 100 MCG Tablet PO (05:43)
--- NOTE | 2023-04-13 07:52 | PN.HOSP_ITS ---
Reason for Visit Reason for Visit: Diagnoses Hypothyroidism, unspecified (04/10/23) Other specified diabetes mellitus without complications (04/10/23) Hyperlipidemia, unspecified (04/10/23) Essential (primary) hypertension (04/10/23) ST elevation (STEMI) myocardial infarction involving right coronary artery (04/10/23) Atherosclerotic heart disease of [place] coronary artery without angina pectoris (04/10/23) Atherosclerotic heart disease of [place] coronary artery with unstable angina pectoris (04/10/23) Atrioventricular block, complete (04/10/23) Subjective Subjective 2D echo demonstrated EF of 55% with no regional wall motion abnormalities Objective Data Objective Data Vital Signs: Vital Signs Temp Pulse Resp BP Pulse Ox O2 Del Method O2 Flow Rate 97.8 F 83 15 155/78 H 100 Room Air 2 04/12/23 20:00 04/12/23 20:00 04/12/23 20:00 04/12/23 20:00 04/12/23 21:10 04/12/23 21:10 04/12/23 00:00 Oxygen Flow Rate (L/min) 2 Oxygen Delivery Method Room Air Weight: 80.2 kg Body Mass Index (BMI) 25.7 Intake & Output: Intake and Output for Last 24 Hours 04/11/23 04/12/23 04/13/23 23:59 23:59 23:59 Intake Total 600 / 600 120 / 120 Output Total 1100 / 1100 Balance 600 / 600 -980 / -980 Lab / Micro Data 04/12/23 05:40 04/12/23 05:40 Labs: Laboratory Results - last 24 hr 04/12/23 11:25: POC Glucose 130 H 04/12/23 16:43: POC Glucose 106 04/12/23 20:59: POC Glucose 118 H Radiography Diagnostic Testing: Radiology Impression Echocardiogram 04/12/23 08:00 Interpretation Summary Normal LV size. Left ventricular systolic function is normal. The estimated ejection fraction is 55 %. Bubble contrast study negative for right to left interatrial shunt. Mild concentric left ventricular hypertrophy. Stage 1 diastolic dysfunction. Ordering Physician: Bo Albert Referring Physician: Mita Zaidi Performed By: Mita Rocha, AGUSTIN, RVT Physical Exam Narrative GENERAL: cooperative HEENT: Atraumatic; normocephalic EYES; Anicteric, Normal Conjunctiva NECK; supple, normal thyroid, RESPIRATORY: Diminished to auscultation CARDIOVASCULAR: Regular S1 S2, GI: soft, normoactive bowel sounds, : No Renal angle tenderness; EXTREMITIES: No edema, no clubbing, MUSCULOSKELETAL: no muscle wasting NEURO: Awake; no lateralizing signs. SKIN: No Rash PSYCH; Flat affect Assessment & Plan Assessment/Plan (1) ST elevation (STEMI) myocardial infarction involving right coronary artery: (2) Coronary artery disease: QUALIFIERS: Associated angina: with unstable angina Coronary Disease-Associated Artery/Lesion type: [place] artery [place] vs. transplanted heart: [place] heart Qualified Code(s): I25.110 - Atherosclerotic heart disease of [place] coronary artery with unstable angina pectoris (3) Transient complete heart block: PLAN: Plan Patient is a 73-year-old gentleman who presented with chest pain diagnosed with acute ST segment elevation [place] underwent emergency left heart catheterization found to have a complete occlusion of the proximal RCA underwent aspiration t hrombectomy, balloon angioplasty RIRI placement. Subsequently transferred to the intensive care unit 1. Acute STEMI -Patient taken emergently to the Risk Control Representative and was found to have a complete occlusion of proximal RCA and underwent aspiration thrombectomy, balloon angioplasty and RIRI. Patient has since been managed with guideline directed medical therapy. Echo ordered pending ? 04/12/2023; echo performed awaiting results ? 04/13/2023;2D echo demonstrated EF of 55% with no regional wall motion abn ormalities 2. Transient heart block ? Secondary to patient proximal RCA occlusion patient has since been monitored continuously on telemetry ? 04/12/2023 did continue with continuous telemetry monitoring patient out of beta-blockers in view of his transient heart block per recommendations from cardiac 3. Diabetes mellitus type II -patient's oral hypoglycemics held. Placed on long acting insulin, Accu-Cheks a.c. and at bedtime and covered with sliding scale insulin 4. Hypothyroidism - Patient is on levothyroxine home dose continued 5. Obstructive sleep apnea ? Patient is on CPAP at night 6. Chronic kidney disease stage IIIa Patient baseline creatinine has been ranging between 1.3-1.76. Creatinine on admission was 1.53. Will continue with daily monitoring 7. DVT prophylaxis - On enoxaparin Time spent in the patient's overall evaluation,decision-making process, review of diagnostic data, adjustment of management, discussion with other providers, nursing nursing and ancillary staff involved in patient's care documentation, 35 Minutes Charges/Coding Visit Charges Inpatient E&M: 90100 Subs Hosp L2
[2023-04-13 08:00] VITALS: BP 123/62; PULSE 65; RESP 17; TEMP 36.6; O2SAT 98
[2023-04-13 08:00] LABS: Bedside Glucose 110 mg/dL (74-106)
[2023-04-13] MEDS: Clopidogrel Bisulfate 75 MG Tablet PO (08:18)
[2023-04-13] MEDS: Losartan Potassium 100 MG Tablet PO (08:18)
[2023-04-13] MEDS: Ezetimibe 10 MG Tablet PO (08:18)
[2023-04-13] MEDS: Fenofibrate 145 MG Tablet PO (08:18)
[2023-04-13] MEDS: Aspirin E.C. 81 MG Tablet PO (08:18)
[2023-04-13] MEDS: Enoxaparin 40 MG/0.4 ML Syringe SC (08:19)
--- NOTE | 2023-04-13 10:45 | DS.PCM_ITS ---
Providers Date of Admission: 04/10/23 Date of Discharge: 04/13/23 Primary Care Physician: JOCELINE Morejon Reason For Visit: STEMI Diagnosis Discharge Diagnosis (1) ST elevation (STEMI) myocardial infarction involving right coronary artery: Status: Acute Code(s): I21.11 - ST elevation (STEMI) myocardial infarction involving right coronary artery (2) Coronary artery disease: Status: Acute Code(s): I25.10 - Atherosclerotic heart disease of [place] coronary artery without angina pectoris Qualifiers: Coronary Disease-Associated Artery/Lesion type: [place] artery [place] vs. transplanted heart: [place] heart Associated angina: with unstable angina Qualified Code(s): I25.110 - Atherosclerotic heart disease of [place] coronary artery with unstable angina pectoris (3) Transient complete heart block: Status: Acute Code(s): I44.2 - Atrioventricular block, complete Plan Patient is a 73-year-old gentleman who presented with chest pain diagnosed with acute ST segment elevation CA underwent emergency left heart catheterization found to have a complete occlusion of the proximal RCA underwent aspiration thrombectomy, balloon angioplasty RIRI placement. Subsequently transferred to the intensive care unit 1. Acute STEMI -Patient taken emergently to the [facility] and was found to have a complete occlusion of proximal RCA and underwent aspiration thrombectomy, balloon angioplasty and RIRI. Patient has since been managed with guideline directed medical therapy. Echo ordered pending ? 04/12/2023; echo performed awaiting results ? 04/13/2023;2D echo demonstrated EF of 55% with no regional wall motion abnormalities 2. Transient heart block ? Secondary to patient proximal RCA occlusion patient has since been monitored continuously on telemetry ? 04/12/2023 did continue with continuous telemetry monitoring patient out of beta-blockers in view of his transient heart block per recommendations from cardiac. Patient was also noted started on statin therapy due to previous history of intolerance to statins 3. Diabetes mellitus type II -patient's oral hypoglycemics held. Placed on long acting insulin, Accu-Cheks a.c. and at bedtime and covered with sliding scale insulin 4. Hypothyroidism - Patient is on levothyroxine home dose continued 5. Obstructive sleep apnea ? Patient is on CPAP at night 6. Chronic kidney disease stage IIIa Patient baseline creatinine has been ranging between 1.3-1.76. Creatinine on admission was 1.53. Will continue with daily monitoring 7. DVT prophylaxis - On enoxaparin Time spent in the patient's overall evaluation,decision-making process, review of diagnostic data, adjustment of management, discussion with other providers, nursing nursing and ancillary staff involved in patient's care documentation, 35 Minutes Medications at Discharge Home Medications levothyroxine 75 mcg tablet 100 mcg PO DAILY THYROID 01/08/13 metformin 500 mg tablet,extended release 24 hr 1,000 mg PO BID DIABETES 01/08/13 hzfdtfhf-aps-bbksb acid 0.4 mg-lycopene 300 mcg-lutein 250 mcg tablet (Centrum Silver) 1 ea PO DAILY SUPPLEMENT' 01/08/13 omega 3-dha 60 mg-epa 90 mg-fish oil 500 mg capsule, delayed release (Fish Oil) 1,000 mg PO BID supplement 05/24/15 potassium citrate 10 mEq (1,080 mg) tablet,extended release (Urocit-K 10) 1,080 mg PO DAILY SUPPLEMENT 05/24/15 fenofibrate nanocrystallized 145 mg tablet 145 mg PO DAILY CHOLESTEROL 10/19/17 ezetimibe 10 mg tablet 10 mg PO DAILY 12/06/22 glipizide 5 mg tablet 2.5 mg PO DINNER diabetes 12/06/22 vit C 250 mg-vit E 90 mg-zinc 40 mg-copper 1 tu-uhweyd-bkmxrq capsule (PreserVision AREDS-2) 1 tab PO BID eye health 12/06/22 cholecalciferol (vitamin D3) 50 mcg (2,000 unit) capsule (D3-2000) 50 mcg PO DAILY 02/11/23 losartan 100 mg tablet 100 mg PO DAILY 04/10/23 aspirin 81 mg tablet,delayed release 81 mg PO DAILYCM 90 days #90 tabs 04/13/23 clopidogrel 75 mg tablet 75 mg PO DAILY 90 days #90 tabs 04/13/23 Hospital Course Procedures Cardiac catheterization Summary of Care Provided Minutes Spent on Discharge: 35 Physical Exam Narrative GENERAL: cooperative HEENT: Atraumatic; normocephalic EYES; Anicteric, Normal Conjunctiva NECK; supple, normal thyroid, RESPIRATORY: Diminished to auscultation CARDIOVASCULAR: Regular S1 S2, GI: soft, normoactive bowel sounds, : No Renal angle tenderness; EXTREMITIES: No edema, no clubbing, MUSCULOSKELETAL: no muscle wasting NEURO: Awake; no lateralizing signs. SKIN: No Rash PSYCH; Flat affect Weight / BMI Weight Weight: 80.2 kg Body Mass Index (BMI) 25.7 ABG / Lab / Microbiology Data 04/12/23 05:40 04/12/23 05:40 Laboratory: Laboratory Results - last 24 hr 04/12/23 11:25: POC Glucose 130 H 04/12/23 16:43: POC Glucose 106 04/12/23 20:59: POC Glucose 118 H 04/13/23 05:38: POC Glucose 110 H Radiography Diagnostic Testing: Radiology Impression Echocardiogram 04/12/23 08:00 Interpretation Summary Normal LV size. Left ventricular systolic function is normal. The estimated ejection fraction is 55 %. Bubble contrast study negative for right to left interatrial shunt. Mild concentric left ventricular hypertrophy. Stage 1 diastolic dysfunction. Ordering Physician: Bo Albert Referring Physician: Mita Zaidi Performed By: Mita Rocha, RDJOHN, RVT D/C Instructions Discharge Diet: Low fat / Low cholesterol and 1800 Calorie Control Diet Discharge Activity: Return to Normal Activity Call your doctor if you observe: Fever of 101 or Higher, Shortness of breath, Fainting spells and Chest pain Meaningful Use Info Meaningful Use Diagnoses (Choose all that apply): AMI AMI/Post PCI/Angioplasty Aspirin given w/in 24hrs of arrival?: Yes ASA at discharge?: Yes Antiplatelet Therapy at Discharge:: Yes Statins at discharge?: No Reason statins not ordered:: Allergy Eulogio/ARB at discharge?: Yes Beta Mike at discharge?: No Reason Beta Mike not ordered:: Allergy Done w/ Acute CA measure.: Yes Documented LVEF (%): 55 Discharge Plan Admission Admit Date/Time: 04/10/23 14:20 Attending Provider: Romie Tuttle Primary Care Provider: Mita Zaidi Consulting Providers: Tereza Tolentino; Bo Albert Discharge Orders/Prescriptions Prescriptions: New clopidogrel 75 mg Tablet 75 mg PO DAILY 90 Days Qty: 90 0RF aspirin 81 mg Tablet,Delayed Release (Dr/Ec) 81 mg PO DAILYCM 90 Days Qty: 90 0RF Continued levothyroxine 75 MCG tablet 100 mcg PO DAILY metformin 500 MG tablet 1,000 mg PO BID Centrum Silver 1 EACH tablet 1 ea PO DAILY potassium citrate [Urocit-K 10] 10 MEQ tablet extended release 1,080 mg PO DAILY Fish Oil 500 MG capsule,delayed release(DR/EC) 1,000 mg PO BID fenofibrate nanocrystallized 145 tablet 145 mg PO DAILY Patient Comments: glipizide 5 mg tablet 2.5 mg PO DINNER ezetimibe 10 mg tablet 10 mg PO DAILY PreserVision AREDS-2 250-90-40-1 mg capsule 1 tab PO BID cholecalciferol (vitamin D3) [D3-2000] 50 mcg (2,000 unit) capsule 50 mcg PO DAILY losartan 100 mg tablet 100 mg PO DAILY Referrals / Follow Up: Bo Albert MD [Med Staff - Active Staff] - Within 2 Weeks Mita Zaidi NP-C [Primary Care Provider] - Within 1 Week Disposition Disposition (needs filled in before D/C Order can be placed): Home, Self Care Charges/Coding Visit Charges Inpatient E&M: 02775 Disch Hosp >30min
[2023-04-13 11:35] LABS: Bedside Glucose 175 mg/dL (74-106)
== END 2023-04-13 11:45 | disposition home or self-care (01) | DRG 322 ==
LOC: ED 13:22 → ICU 15:07
PROVIDERS: Admitting Provider Internal Medicine Cardiovascular Disease; Emergency Provider Student in an Organized Health Care Education/Training Program; PCP Nurse Practitioner Family; Visit Provider Internal Medicine
DX: I21.11 ST elevation (STEMI) myocardial infarction involving right coronary artery (principal); I44.2 Atrioventricular block, complete; E11.40 Type 2 diabetes mellitus with diabetic neuropathy, unspecified; E11.22 Type 2 diabetes mellitus with diabetic chronic kidney disease; N18.31 Chronic kidney disease, stage 3a; I25.110 Atherosclerotic heart disease of native coronary artery with unstable angina pectoris; I12.9 Hypertensive chronic kidney disease with stage 1 through stage 4 chronic kidney disease, or unspecified chronic kidney disease; E03.9 Hypothyroidism, unspecified; G47.33 Obstructive sleep apnea (adult) (pediatric); I45.9 Conduction disorder, unspecified; E78.5 Hyperlipidemia, unspecified; Z79.84 Long term (current) use of oral hypoglycemic drugs; R00.2 Palpitations
CPT/HCPCS: 71045; 80048; 80053; 80061; 80076; 82962; 83690; 83735; 83880; 84100; 84484; 85025; 85027; 85347; 85610; 85730; 92941; 92973; 93005; 93306; 93458; 97802; 99152; 99153; 99285; C1757; J7030; J7040; Q9967; A4216; C1725; C1769; C1874; C1887; C1894; C9606; J1327

== ENCOUNTER → 2023-04-14 | Outpatient (CLI) | payer MEDICARE, OTHER, SELFPAY ==
--- OUTSIDE RECORDS SUMMARY | 2023-04-14 13:57 | XMS RPT_ITS | CCD ---
Author Name Unknown Address [address] [place] [address] Organization [facility] Care Team Providers Care Monitoring Manager Name Role Phone Alva SOLER, David Lincoln Primary Care Provider Allergies Allergy Classification Reported Allergen(s) Allergy Type Date of Onset Reaction(s) Facility (2 sources) atorvastatin Drug Allergy 1 Other: See Comments [facility] (2 sources) Dust Propensity to adverse reactions 5 Intolerance [facility] Work Phone: (2 sources) HMG-CoA reductase inhibitor Drug Intolerance 4 Other: See Comments [facility] (2 sources) Niacin Drug Allergy 7 GI Upset [facility] Work Phone: (2 sources) Pravastatin Drug Allergy 1 Other: See Comments [facility] (2 sources) rosuvastatin Drug Allergy 1 Other: See Comments [facility] (2 sources) Simvastatin Drug Allergy 1 Other: See Comments [facility] (2 sources) Homeopathic Products Propensity to adverse reactions 5 Intolerance [facility] Work Phone: Medications Completed/Discontinued Medications Medication [...] David Calle MD Work Phone: [facility] Procedures Date Procedure Procedure Detail Performing Clinician Start: 06-21-2020 Adult depression screening assessment Davdi Calle MD Work Phone: Start: 11-20-2011 Colonoscopy Jovon Calle MD Work Phone: Plan of Treatment Date Care Activity Detail Author Start: 04-10-2022 Hepatitis C antibody , confirmatory test DILATED RETINAL EXAM [facility] Start: 03-26-2022 3 comp foot exam completed DIABETIC FOOT EXAM [facility] Start: 03-26-2022 ANNUAL PCP TEAM ASSOCIATE ACCOUNT EXECUTIVE 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 ANNUAL PCP TEAM CHRONIC DISEASE VISIT [facility] Start: 03-26-2022 COVID-19 VACCINE (#1) COVID-19 VACCI NE (#1) [facility] Immunizations Immunization Date Immunization Notes Care Provider Fa alex 09-02-2011 tetanus toxoid, reduced diphtheria toxoid, and acellular pertussis vaccine, adsorbed David Calle MD Work Phone: [facility] 10-30-1995 diphtheria and tetan us toxoids, adsorbed for pediatric use David Calle MD Work Phone: [facility] Work Phone: 02-18-1993 hepatitis B vaccine, adult dosage David Calle MD Work Phone: [facility] Work Phone: 08-25-1983 diphtheria and tetan us toxoids, adsorbed for pediatric use David Calle MD Work Phone: [facility] Work Phone: 11-14-1973 diphtheria and tetan us toxoids, adsorbed for pediatric use David Calle MD Work Phone: [facility] Work Phone: 11-12-1973 diphtheria and tetan us toxoids, adsorbed for pediatric use David Calle MD Work Phone: [facility] Work Phone: 05-20-1959 trivalent poliovirus vaccine, live, oral David Calle MD Work Phone: [facility] Work Phone: 04-12-1959 diphtheria and tetan us toxoids, adsorbed for pediatric use David Calle MD Work Phone: [facility] Work Phone: 12-09-1956 trivalent poliovirus vaccine, live, oral David Calle MD Work Phone: [facility] Work Phone: 07-31-1955 diphtheria and tetan us toxoids, adsorbed for pediatric use David Calle MD Work Phone: [facility] Work Phone: 09-30-1954 diphtheria and tetan us toxoids, adsorbed for pediatric use David Calle MD Work Phone: [facility] Work Phone: 08-19-1954 diphtheria and tetan us toxoids, adsorbed for pediatric use David Calle MD Work Phone: [facility] Work Phone: Payers Date Payer Category Payer Private Health Insurance HU[employer]NA HU[employer]NA MEDICARE SUPPLEMENT [id number] 2019-Present [phone] [address] [address] [place] [address] Indemnity [id number] 2014 Medicare MEDICARE MEDICAR E A AND B [id number] 2014-Present [phone] [place] [address] Medicare [id number] Social History Date Type Detail Facility Tobacco smoking stat [facility] Never smoked tobacco [facility] Start: 12-31-2020 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 Thank you. [facility] verified in Epic Patient has [...] Kristi Boyd Pss documented in this encounter [facility] Note 08-27-2021 Telephone Encounter - Hamida Montoya RN - 08/27/2021 2:47 PM EDT Note Date & Type Note Facility 08-27-2021 Miscellaneous Notes Faxed most recent ov notes and lab results to Dr. Tone [facility]- endocrinology/[facility], per patient request. Reports he will see this doctor on 09-17, for his chronic kidney dx and DM. documented in this encounter [facility] Progress note 03-26-2021 Note Date & Type Note Facility 03-26-2021 Note HNO ID: [id number] Author: Eboni Cardozo APRN.JOINERY PATTERNMAKER Service: ? Author Type: Nurse Practitioner Type: [...] Lipitor [Atorvastatin Calcium], Niaspan [Niacin (Antihyperlipidemic)], Pravastatin, Mvusdoi-Zey-Mjp Reductase Inhibitors, and Zocor [Simvastatin] MEDICATIONS Current [...] pulses, not se (more content not included)... [facility] Progress note 12-31-2020 Note Date & Type Note Facility 12-31-2020 Note HNO ID: [id number] Author: Brittany Billingsley APRN.JOINERY PATTERNMAKER Service: ? Author Type: Nurse Practitioner Type: Progress Notes Filed: 12/31/2020 2:30 PM Note Text: This note was created using inkSIG Digital[employer]. Subjective Werner Ferrell is a 70 year [...] history is provided by the patient. No educational speech language clinician was used. Cough This is a new [...] Laterality Date [facility] Colonoscopy. repeat in 10 years - [facility] PROSTATECTOMY 11/30/2018 - PAST SURGICAL HISTORY OF right 5th finger - REMOVAL OF TONSILS,<11 Y/O ALLERGIES Crestor [Rosuvastatin Calcium], Dust, Hayfever [Homeopathic Products], Lipitor [Atorvastatin Calcium], Niaspan [Niacin (Antihyperlipidemic)], Pravastatin, Tnzxyek-Wmi-Qwp Reductase Inhibitors, and Zocor [Simvastatin] MEDICATIONS levothyroxine [...] 89 - Coronary Artery Disease Father Fatal [place] age 60 - Heart Brother - Heart [...] gait problem. Skin (more content not included)... [facility] Progress note 09-24-2020 Note Date & Type Note Facility 09-24-2020 Note HNO ID: [id number] Author: Eboni Cardozo APRN.JOINERY PATTERNMAKER Service: ? Author Type: Nurse Practitioner Type: [...] Lipitor [Atorvastatin Calcium], Niaspan [Niacin (Antihyperlipidemic)], Pravastatin, Bnxmedt-Huc-Ohh Reductase Inhibitors, and Zocor [Simvastatin] MEDICATIONS Current [...] Ref Rng AND (more content not included)... [facility] History of Past illness Narrative 09-16-2010 Note Date & Type Note Facility documented as of this encounter (statuses as of 08/27/2021) [facility] History of Past illness Narrative 09-16-2010 Note Date & Type Note Facility documented as of this encounter (statuses as of 09/09/2021) [facility] Evaluation note Note Date & Type Note Facility documented in this encounter [facility] Summary Purpose Family History No Family History Records FoundNo Family History Records Found Advance Directives No Advanced Directives Records FoundNo Advanced Directives Records Found Additional Source Comments (unrecognized sect ion and content) No Status Records FoundNo Status Records Found INFORMATION SOURCE (unrecogn ized section and content) DATE CREATED AUTHOR AUTHOR'S ORGANIZ ATION 08/29/[address] [facility] Source Comments (unrecognize d section and content) In the event this informatio n is protected by the Federal Confidentiality of Alcohol and Drug Abuse Patient Records regulations: The Federal rules restrict any use of the information to criminally investigate or prosecute any alcohol or drug abuse patient.[facility] the event this information is protected by the Federal Confidentiality of Alcohol and Drug Abuse Patient Records regulations: The Federal rules restrict any use of the information to criminally investigate or prosecute any alcohol or drug abuse patient.[facility] Reason for Visit (unrecogniz ed section and content) Reason Onset Date Comments Refill Request 09/09/2021 Care Teams (unrecognized sec tion and content) Monitoring Manager Relationship Specialty Start Date End Date David Calle MD [address] [place], [place] [id number] PCP - General Family Practice 05/30/19 FOR [...] BE BASED ON THE PRIMARY CLINICAL RECORDS. [facility] [email or web address] [facility]. provides no warranty or guarantee of the accuracy or completeness of information in this document.
[2023-04-14 14:55] LABS: Anion Gap 7 (5-15); BUN 34 mg/dL (7-18); BUN/Creat Ratio 20.4 RATIO (10-20); Calcium,Total 9.7 mg/dL (8.5-10.1); Chloride 113 mmol/L (98-107); Creatinine, Serum 1.67 mg/dL (0.70-1.30); EST Glomerular Filtration Rate 43 mL/min (>60); Est Glom Filt Rate - Afr Amer 52 mL/min (>60); Glucose 109 mg/dL (74-106); Potassium 4.2 mmol/L (3.5-5.1); Sodium Level 145 mmol/L (136-145)
== END | disposition home or self-care (01) ==
LOC: LAB 13:35
PROVIDERS: PCP Nurse Practitioner Family; Referring Provider Nurse Practitioner Adult Health; Visit Provider Nurse Practitioner Adult Health
DX: E11.21 Type 2 diabetes mellitus with diabetic nephropathy (principal)
CPT/HCPCS: 36415; 80048

== ENCOUNTER → 2023-04-22 | Outpatient (CLI) | payer MEDICARE, OTHER, SELFPAY ==
--- OUTSIDE RECORDS SUMMARY | 2023-04-22 09:01 | XMS RPT_ITS | CCD ---
Author Name Unknown Address [address] [place] [address] Organization [facility] Care Team Providers Care Hat Lining Paster Name Role Phone Alva SOLER, David Lincoln Primary Care Provider Allergies Allergy Classification Reported Allergen(s) Allergy Type Date of Onset Reaction(s) Facility (2 sources) atorvastatin Drug Allergy 1 Other: See Comments [facility] (2 sources) Dust Propensity to adverse reactions 5 Intolerance [facility] Work Phone: (2 sources) HMG-CoA reductase inhibitor Drug Intolerance 4 Other: See Comments [facility] (2 sources) Niacin Drug Allergy 7 GI Upset [facility] Work Phone: (2 sources) Pravastatin Drug Allergy 1 Other: See Comments [facility] (2 sources) rosuvastatin Drug Allergy 1 Other: See Comments [facility] (2 sources) Simvastatin Drug Allergy 1 Other: See Comments [facility] (2 sources) Homeopathic Products Propensity to adverse reactions 5 Intolerance [facility] Work Phone: Medications Completed/Discontinued Medications Medication Drug [...] antibody , confirmatory test DILATED RETINAL EXAM [facility] Start: 03-26-2022 3 comp foot exam completed DIABETIC FOOT EXAM [facility] Start: 03-26-2022 ANNUAL PCP TEAM POURER METAL 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 ANNUAL PCP TEAM CHRONIC DISEASE VISIT [facility] Start: 03-26-2022 COVID-19 VACCINE (#1) COVID-19 VACCI NE (#1) [facility] Immunizations Immunization Date Immunization Notes Care Provider Fa alex 09-02-2011 tetanus toxoid, reduced diphtheria toxoid, and acellular pertussis vaccine, adsorbed David Calle MD Work Phone: [facility] 10-30-1995 diphtheria and tetan us toxoids, adsorbed for pediatric use David Calle MD Work Phone: [facility] Work Phone: 02-18-1993 hepatitis B vaccine, adult dosage David Calle MD Work Phone: [facility] Work Phone: 08-25-1983 diphtheria and tetan us toxoids, adsorbed for pediatric use David Calle MD Work Phone: [facility] Work Phone: 11-14-1973 diphtheria and tetan us toxoids, adsorbed for pediatric use David Calle MD Work Phone: [facility] Work Phone: 11-12-1973 diphtheria and tetan us toxoids, adsorbed for pediatric use David Calle MD Work Phone: [facility] Work Phone: 05-20-1959 trivalent poliovirus vaccine, live, oral David Calle MD Work Phone: [facility] Work Phone: 04-12-1959 diphtheria and tetan us toxoids, adsorbed for pediatric use David Calle MD Work Phone: [facility] Work Phone: 12-09-1956 trivalent poliovirus vaccine, live, oral David Calle MD Work Phone: [facility] Work Phone: 07-31-1955 diphtheria and tetan us toxoids, adsorbed for pediatric use David Calle MD Work Phone: [facility] Work Phone: 09-30-1954 diphtheria and tetan us toxoids, adsorbed for pediatric use David Calle MD Work Phone: [facility] Work Phone: 08-19-1954 diphtheria and tetan us toxoids, adsorbed for pediatric use David Calle MD Work Phone: [facility] Work Phone: Payers Date Payer Category Payer Private Health Insurance HU[employer]NA HU[employer]NA MEDICARE SUPPLEMENT [id number] 2019-Present [phone] [address] [address] [place] [address] Indemnity [id number] 2014 Medicare MEDICARE MEDICAR E A AND B [id number] 2014-Present [phone] [place] [address] Medicare [id number] Social History Date Type Detail Facility Tobacco smoking stat [facility] Never smoked tobacco [facility] Start: 12-31-2020 Alcohol intake 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 Tone Colon- endocrinology/[facility], per patient request. Reports he will see this doctor on 09-17, for his chronic kidney dx and DM. documented in this encounter [facility] Progress note 03-26-2021 Note Date & Type Note Facility 03-26-2021 Note HNO ID: [id number] Author: Eboni Cardozo APRN.RESERVATIONS SALES AGENT Service: ? Author Type: Nurse Practitioner Type: [...] Lipitor [Atorvastatin Calcium], Niaspan [Niacin (Antihyperlipidemic)], Pravastatin, Cvmsved-Gdd-Xji Reductase Inhibitors, and Zocor [Simvastatin] MEDICATIONS Current [...] se (more content not included)... [facility] Progress note 12-31-2020 Note Date & Type Note Facility 12-31-2020 Note HNO ID: [id number] Author: Brittany Billingsley APRN.RESERVATIONS SALES AGENT Service: ? Author Type: Nurse Practitioner Type: Progress Notes Filed: 12/31/2020 2:30 PM Note Text: This note was created using Qbakariter. Subjective Werner Ferrell is a 70 year [...] history is provided by the patient. No speech language pathology assistant was used. Cough This is a new [...] Lipitor [Atorvastatin Calcium], Niaspan [Niacin (Antihyperlipidemic)], Pravastatin, Owqzirx-Oop-Gto Reductase Inhibitors, and Zocor [Simvastatin] MEDICATIONS levothyroxine [...] 89 - Coronary Artery Disease Father Fatal [facility] age 60 - Heart Brother - Heart [...] Skin (more content not included)... [facility] Progress note 09-24-2020 Note Date & Type Note Facility 09-24-2020 Note HNO ID: [id number] Author: Eboni Cardozo APRN.RESERVATIONS SALES AGENT Service: ? Author Type: Nurse Practitioner Type: [...] Lipitor [Atorvastatin Calcium], Niaspan [Niacin (Antihyperlipidemic)], Pravastatin, Rkqpfbp-Cxi-Dci Reductase Inhibitors, and Zocor [Simvastatin] MEDICATIONS Current [...] AND (more content not included)... [facility] History of Past illness Narrative 09-16-2010 Note Date & Type Note Facility documented as of this encounter (statuses as of 08/27/2021) [facility] History of Past illness Narrative 09-16-2010 Note Date & Type Note Facility documented as of this encounter (statuses as of 09/09/2021) [facility] Evaluation note Note Date & Type Note Facility documented in this encounter [facility] Summary Purpose Family History No Family History Records FoundNo Family History Records Found Advance Directives No Advanced Directives Records FoundNo Advanced Directives Records Found Additional Source Comments (unrecognized sect ion and content) No Status Records FoundNo Status Records Found INFORMATION SOURCE (unrecogn ized section and content) DATE CREATED AUTHOR AUTHOR'S ORGANIZ ATION 08/29/2021 [facility] Source Comments (unrecognize d section and content) In the event this informatio n is protected by the Federal Confidentiality of Alcohol and Drug Abuse Patient Records regulations: The Federal rules restrict any use of the information to criminally investigate or prosecute any alcohol or drug abuse patient.[facility] the event this information is protected by the Federal Confidentiality of Alcohol and Drug Abuse Patient Records regulations: The Federal rules restrict any use of the information to criminally investigate or prosecute any alcohol or drug abuse patient.[facility] Reason for Visit (unrecogniz ed section and content) Reason Onset Date Comments Refill Request 09/09/2021 Care Teams (unrecognized sec tion and content) Hat Lining Paster Relationship Specialty Start Date End Date David Calle MD [address] [place], [place] [id number] PCP - General Family Practice 05/30/19 FOR [...] BE BASED ON THE PRIMARY CLINICAL RECORDS. [facility]. provides no warranty or guarantee of the accuracy or completeness of information in this document.
[2023-04-22 10:41] LABS: Anion Gap 4 (5-15); BUN 32 mg/dL (7-18); BUN/Creat Ratio 24.6 RATIO (10-20); Calcium,Total 9.2 mg/dL (8.5-10.1); Chloride 110 mmol/L (98-107); EST Glomerular Filtration Rate 57 mL/min (>60); Est Glom Filt Rate - Afr Amer 69 mL/min (>60); Glucose 90 mg/dL (74-106); Potassium 4.3 mmol/L (3.5-5.1); Sodium Level 140 mmol/L (136-145)
== END | disposition home or self-care (01) ==
LOC: LAB 08:52
PROVIDERS: PCP Nurse Practitioner Family; Referring Provider Internal Medicine Endocrinology, Diabetes & Metabolism; Visit Provider Internal Medicine Endocrinology, Diabetes & Metabolism
DX: E11.21 Type 2 diabetes mellitus with diabetic nephropathy (principal)
CPT/HCPCS: 36415; 80048

== ENCOUNTER → 2023-04-23 | Outpatient (CLI) | payer MEDICARE, OTHER, SELFPAY ==
--- NOTE | 2023-04-23 09:45 | CR.HP_ITS ---
CR - History & Physical General Arrival date:: 04/23/23 Arrival time:: 09:45 Date of Referral:: 04/12/23 Date of CR Evaluation:: 04/23/23 Referring Physician: Dr. Albert Primary Diagnosis: PCI with coronary stent History of Present Cardiac Event Onset Date PTCA or coronary stenting:: Yes Vessel: RCA 04/10/23 Medications Ambulatory Orders Medication Instructions Recorded levothyroxine 75 mcg tablet 100 mcg PO DAILY THYROID 01/08/13 metformin 500 mg tablet,extended 1,000 mg PO BID DIABETES 01/08/13 release 24 hr jvbyskkp-rgp-tbcib acid 0.4 1 ea PO DAILY SUPPLEMENT' 01/08/13 mg-lycopene 300 mcg-lutein 250 mcg tablet (Centrum Silver) omega 3-dha 60 mg-epa 90 mg-fish 1,000 mg PO BID supplement 05/24/15 oil 500 mg capsule, delayed release (Fish Oil) potassium citrate 10 mEq (1,080 1,080 mg PO DAILY SUPPLEMENT 05/24/15 mg) tablet,extended release (Urocit-K 10) fenofibrate nanocrystallized 145 145 mg PO DAILY CHOLESTEROL 18 mg tablet ezetimibe 10 mg tablet 10 mg PO DAILY 12/06/22 glipizide 5 mg tablet 2.5 mg PO DINNER diabetes 12/06/22 vit C 250 mg-vit E 90 mg-zinc 40 1 tab PO BID eye health 12/06/22 mg-copper 1 wg-blidzs-jetvsx capsule (PreserVision AREDS-2) cholecalciferol (vitamin D3) 50 50 mcg PO DAILY 02/11/23 mcg (2,000 unit) capsule (D3-1999) losartan 100 mg tablet 100 mg PO DAILY 04/10/23 aspirin 81 mg tablet,delayed 81 mg PO DAILYCM 90 days #90 tabs 04/13/23 release clopidogrel 75 mg tablet 75 mg PO DAILY #90 tabs 04/13/23 Allergies Allergies Jrecndv-OKW-RzB Reductase Inhibitor [Qdqiycm-Ncx-Sdy Reductase Inhibitor] Adverse Reaction (Verified 04/10/23 08:44) leg cramps Sleep Disorder Evaluation Hx of Sleep Apnea: Yes Do you snore loudly (louder than talking or can be heard through closed doors)?: No (uses machine) Do you often feel tired/ fatigued/ sleepy during daytime?: No Has anyone observed you stop breathing during sleep?: No History of Hypertension (for STOP score): Yes STOP Results: Negative Advanced Directives Advanced Directives Power of Research And Development Chemist: Yes Living Will: Yes Advance Directives Information Provided: Yes Advance Directives on File: Yes DNR Order?:: No Past Medical History Covid-19 Screening Physicial Symptoms Other Clinical Concerns Exposure Risk Pertinent Comorbidities Has a serious heart condition:: Yes Diabetic:: Yes Past Medical Illness Past Medical History (Updated 04/14/23 @ 00:01 by Background Daemon) BPH (benign prostatic hyperplasia) N40.0 Cancer C80.1 PROSTATE Cholecystitis K81.9 Diabetes mellitus E11.9 ON MED Dietary restriction Z71.3 ADA Difficulty swallowing R13.10 FOOD GETS STUCK AT TIMES High cholesterol E78.00 ON MED History of renal disease Z87.448 CKD Hypertension I10 CONTROLLED WITH MED Hypothyroid E03.9 ON MED Leg cramping R25.2 Loss of hearing H91.90 Neuropathy G62.9 LEFT FOOT Non-smoker Z78.9 Sleep apnea treated with continuous positive airway pressure (CPAP) G47.30 Wears glasses Z97.3 Past Surgical History Past Surgical History (Updated 04/14/23 @ 00:01 by Background Daemon) H/O prostatectomy Z90.79 2018 History of tonsillectomy and adenoidectomy Z90.89 Hx of cardiac catheterization (~04/10/23) Z98.890 Hx of colonoscopy Z98.890 Hx of total knee replacement Z96.659 S/P laparoscopic cholecystectomy Z90.49 12/26. Patient presents for his first postoperative visit and has recovered well. He has no residual discomfort and believes that prior presentations of abdominal discomfort can be attributed back to this issue. I would agree with his assessment as his pathology demonstrated some element of chronic cholecystitis along with an acute exacerbation. This pathology was shared with patient along with his cholangiogram. I am pleased with his wound healing to date on exam. At this time I am not sure how connected his reports on altered bowel habits are to his recent operation. Generally post?cholecystectomy altered bowel movements are looser. I have recommended that he begin probiotic yogurt to try to reestablish his normal enteric nallely given the use of antibiotics during the perioperative phase. Stented coronary artery (~04/10/23) Z95.5 Prox RCA-RIRI [place] 3.0x38 mm Surgical History: tonsillectomy Social History Smoking History Smoking Status: Never smoker Alcohol Use Alcohol Usage: No Substance Abuse Hx Substance Use: No Occupation Occupation (List type of work in comments):: Retired Hobbies, Recreation, Social Activities Hobbies: Other (yardwork, pool) Recreational Activities: I am able to engage in all my recreational activities Social Environment Status Marital Status: Current Living Arrangements Living Environment:: Spouse Children How many children do you have?: 2 Do any of your children live nearby?: Yes Safety Do you feel safe in your surroundings?: Yes Assistance Do you need any assistance at home?: no Risk Factor Assessment Chief Complaint Chief Complaint: PCI with coronary stent Vital Signs Pulse Ox: 98 Blood Pressure: 130/62 Pulse Pulse Rate: 72 Pulse Rhythm: Regular Hypertension How long have you been treated?: 25-30 years Blood Pressure Sitting - Left Arm: 130/62 Diabetes Diabetic History: Type II Nutrition Referral for Diabetes: No Obesity Height: 5 ft 9.5 in Weight:: 178 lb Weight in Pounds: 178.0 lbs Body Mass Index (BMI): 25.9 Nutritional Referral for Obesity: No Physical Inactivity Physical Inactivity: Reg Exercise 30 min/day (walks dog) Risk Stratification Risk Guidelines: Lowest Risk: Risk Factor for Smoking, Moderate Risk: Risk Factor for Obesity, Risk Factor for Sedentary Lifestyle and Risk Factor for Depression and Highest Risk: Risk Factor for Dyslipidemia, Risk Factor for Diabetes and Risk Factor for Hypertension For Smoking Smoking Risk Guidelines For Dyslipidemia Dyslipidemia Risk Guidelines For Diabetes Mellitus Diabetes Risk Guidelines For Obesity/Overweight Obesity/Overweight Risk Guidelines For Hypertension Hypertension Risk Guidelines For Sedentary Lifestyle Sedentary Lifestyle Risk Guidelines For Depression Depression Risk Guidelines Motivation Motivation to Participate On a scale of 1 to 10, how prepared are you to commit to attending program?: 8 What do you see as barriers to successfully being able to complete the program?: no What do you see as the benefits of succesfully completing the program? In other words, what do you hope to get out of participating in the program?: educated on heart disease Are there issues you are dealing with that will interfere with completing the program?: no Do you have a spouse or signficant other, family or friends who will help support you to complete the program?: yes
--- NOTE | 2023-04-23 09:51 | PCM.CR.ITP ---
Diagnosis General Information Admitting Diagnosis: PCI with stenting Personal Learning Style:: Audio/Visual Stage of change r/t lifestyle modifications:: Contemplation Gave educational material for:: Treating Heart Disease, How The Heart Works, What it means to have Heart Disease, How Coronary Artery Disease is Diagnosed, Heart Procedures, What Heart Medications Do, Risk Factors & Modifications, Living an Active Life, Nutrition, Emotions & Heart Disease, Stress Management & Relaxation and Sleep Disorders & Heart Disease Education/Goals Cardiac Rehabilitation Goals Personal Goals: Initial Assessment: Improve energy level, Participate in home exercise program, Get back to work, or to resume activities faster, Improve knowledge of cardiac disease, Improve muscle strength and endurance, Improve diet and eating habits (eat healthier) and Control risk factors (learn risk factor modification) Scale for measuring improvement of personal goals Diagnosis & Disease Process Outcomes/Goals: Pt IDs own risk factors & lifestyle modifications by Session 10, Verbalizes symptoms of angina & response by session 3., Pt independently manages and Other Additional Outcomes/Goals: Plan/Interventions: Assist Pt to ID & engage in lifestyle modification to reduce CVD risk, Instruct on individual risk factors, Review symptoms of angina & emergency actions, Review secondary diagnosis & identify educational needs. and Other see comment 30 day Reassessments:: Not Met 30 day Reassessments:: Not Met 30 day Reassessments:: Not Met 30 day Reassessments:: Not Met Final Reassessments:: Not Met Safety Referral to Physical Therapy: No Referral to [facility] Case Management: No Fall Risk Assessed:: Yes Assistive Devices:: None Exercise - Initial Assessment Visit Date of Eval: 04/23/23 (initial eval ) Mets: Pre-: >3 METS for 30 minutes by discharge, >5 METS for 30 minutes by discharge, >7 METS for 30 minutes by discharge and Unable to meet goal due to: (see comment below) Physician Prescribed Exercise Modalities: Treadmill, Rower, Airdyne, NuStep, SciFit and Lateral Copper Etcher Frequency: 3x/week for 12 weeks [36 sessions] Intensity: 60-80% of age predicted maximum heart rate reserve Duration: 30 - 45 minutes Current METSs:: 3 Target Heart Rate:: 88-102 Resting Blood Pressure: 130/62 EKG Type: SR w/ 1st degree AV block Outcomes & Goals Goals:: Verbalizes understanding of THR, RPE & goal METS by session 6, Documents in home exercise log/reports 30 min aerobic 5 day/wk by DC, Demonstrates accurate pulse taking by DC and Other additional outcome/goals: see below Intervention & Plan Exercise Program Goals: Instruct on personal THR & RPE, Instruct on MET level & personal MET goal, Show patient to take own pulse /validate performance until accurate, Instruct on home exercise and Other additional plan/int Physical Activity Home Exercise Physical Activity - Home Exercise: Safe Exercise, Warm-up, Self-monitoring, Cool-Down, Home Exercise > 30 min Daily and Sitting Time <3 hours/daily Outcomes & Goals Outcomes/Goals: Demonstrates correct Warm-up/exercise Cool-Down (S3) if = 2.5 METs, Verbalizes symptoms of exercise intolerance by Session 3 (S3), Demonstrate safe equipment use (S3) & follows exercise prescrition (6) and Other: See below Intervention & Plan Plan/Intervention: Instruct warm-up & cool-down if exercising at > 2 METs, Instruct on symptoms of exercise intolerance & actions to take, Instruct & monitor on saf, Assess intial functional capacity & safety risk and Other See below Nutrition - Initial Assessment Program Goals Nutrition Program Goals Patient has diagnosis of Hyperlipidemia (ICD E78)?: Yes Visit Date of Eval: 04/23/23 (initial eval ) Cholesterol/Lipids (Other Core Measures) Determine presence & major risk factors that modify LDL goal: Hypertension or hypertensive medication, Low HDL cholesterol <40 mg/dL*, Family history of premature CHD in Male < 55 years: female <65 yearsFa and Age men > 45 years; women >/= 55 years Outcomes/Goals: Pt IDs own risk factors & lifestyle modifications by Session 10, Verbalizes symptoms of angina & response by session 3., Pt independently manages and Other Additional Outcomes/Goals: Intervention/Plan: Advocate for lipid panel cholesterol medication if applicable, Instruct on personal lipid levels & lipid goals/NCEP guidelines, Instruct on cholesterol and Other additional plan/int Referral to dietitian:: No Diabetes (Other Core Measures) Diabetes Type: Diagnosis Type II ICD-10 E11 Insulin dependent injection/pump?: No Non-Insulin Dependent?: Yes Do you monitor your blood sugar at home?: Yes Referral to Diabetic Clinic:: No Outcomes/Goals:: Able to state symptoms of, Able to state, Able to state and Other additional Intervention/Plan:: Instruct on, Refer to, Instruct on and Other Weight Mgt (Other Care) Height: 5 ft 9.5 in Weight:: 178 lb BMI: 25.9 Diagnosis Overweight/Obesity BMI> 30% ICD-10 E66: No Diagnosis High BMI/Morbid Obesity BMI> 35% ICD-10 Z68: No Outcomes/Goals: Pt sets, maintains & shows weight loss goal & trend during rehab and Other additional outcomes/goals Intervention/Plan: Instruct on ideal BMI & set weight loss goal w/patient, Assist pt to ID & incorporate diet changes for weight loss by S9, Refer to Structured Weight Loss program as appropriate, Encourage goal of using 250-300dcal per session for weight loss and Other additional plan/interventions Healthy Eating Habits Will attend diet classes:: Yes Outcomes/Goals:: Consume diet rich in vegs,fruits,whole grain/high fiber,fish,lean meat, Limit sat/trans fats,cholesterol & added salts & sugars and Other additional outcome/goals: Intervention/Plan:: Assess current eating habits and Other Additional plan/interventions Education Gave educational materials for:: Signs & symptoms of hypoglycemia, Signs & symptoms of hyperglycemia, Relate diabetes to coronary artery disease and Healthy eating Core - Initial Assessment Visit Date of Eval: 04/23/23 (initial eval ) Medication Compliance Preventative Medication(s):: Aspirin, Clopidogrel/P2Y12 inhibit and ARB (Angiotensi Rcap) H/O mental health issues: depression, anxiety, or addiction?: No Doesn?t believe in the benefits of treatment?: No Believes medications are unnecessary or harmful?: No Has a concern about medication side effects?: No Outcomes/Goals: Verbalizes medications,desired effect & common side effects @ DC, Pt self-reports following medication regimen, Keeps card in wallet w/medications listed by DC and Other additional outcome/goals: Interventions/plans: Instruct on medication effects & side effects, Review medication list w/patient every two weeks, Instruct importance of taking meds as ordered & assist problem solving and Other additional Tobacco Use Tobacco Use: Non-smoker Hypertension Hypertension Diagnosis:: Hypertension ICD-10 I10 Resting Blood Pressure:: 130/62 [place] [employer] Hypertension Guidelines Outcomes/Goals: Able to verbalize/achieve optimal blood pressure <130/80, Incorporates diet changes & exercise for blood pressure control by DC and Other additional outcomes/goals Interventions/plan: Instruct on optimal blood pressure, hypertension & medications, Instruct on effects of sodium, alcohol, stress, exercise &hypertension and Other additional plan/interventions Tobacco Cessation Referral Smoking Cessation Referral:: No Individual Education/Counseling:: No Education Schedule Given:: Yes Psychosocial - Initial Assess VIsit Date of Eval: 04/23/23 (initial eval ) History of previous Mental disease:: No Target Goals Target Goals Outcomes/Goals: See list Psychosocial Outcomes/Goals:: ID's personal stressors & 2 strategies to manage stress by discharge and Other Additional outcome/goals: Intervention/Plan: See List Interventions/Plan:: Assess stressors,coping strategies & signs of derpression on admission, Instruct/assist pt to develop coping & personal stress Mgt strategies, Refer to Behavioral Health if appropriate, Refer to Physician if appropriate, Instruct patient to recognize signs & symptoms of depression, Instruct patient to recog and Other additional plan/intervention Patient Health Questionnaire PHQ-9 Screening Initial Assessment: 1. Little interest or pleasure in doing things: Several days 2. Feeling down, depressed, or hopeless: Not at all 3. Trouble falling or staying asleep, or sleeping too much: Not at all 4. Feeling tired or having little energy: Several days 5. Poor appetite or overeating: Several days 6. Feeling bad about yourself -- or that you are a failure or have let yourself or your family down: Not at all 7. Trouble concentrating on things, such as reading the newspaper or watching television: Not at all 8. Moving or speaking so slowly that other people could have noticed. Or the opposite - being so fidgety or restless that you have been moving around a lot more than usual: Not at all 9. Thoughts that you would be better off , or of hurting yourself in some way: Not at all How difficult have these problems made it for you to do your work, take care of things at home, or get along with other people?: Not difficult at all Total Score: 3 QUE-Q SV Test Statements CAD is a disease of the arteries in the heart: False Examples of risk factors for heart disease: True Angina is chest pain or discomfort: True The benefits of resistance training include: True Eating more meat and dairy products: False Anti-platelet medications such as aspirin are important: True The only effective way to manage stress: False An exercise warm-up slowly increases heart rate: True Prepared, processed foods usually have high sodium: True Depression is common after a heart attack: True The statin medications lower cholesterol: True To control blood pressure, lower the amount of sodium: True If someone gets chest discomfort during walking: False Transfats are partially hydrogenated vegetable oils: True Sleep apnea that is not treated increases the risk: True To control cholesterol, one should become a vegetarian: False Someone knows if he/she is exercising at the right level: True Diabetes cannot be prevented with exercise & health eating: False Stress is a large risk for heart attack: True A diet that can help lower blood pressure is rich in: True Total Score Total Correct Responses: 19 Self-Efficacy 6-Item Scale Initial Assessment: We would like to know how confident you are in doing certain activities. Please select your confidence level for: Fatigue Select Number: 8 Physical Discomfort or Pain Select Number: 8 Emotional Distress Select Number: 8 Other Symptoms or Health Problems Select Number: 8 Different Tasks and Activities Select Number: 8 Medication Select Number: 8 Total Score:: 8 Nutrition Survey Nutrition Survey Instructions Scoring Instructions Nutrition Survey Initial: Have you lost >10 lbs over the past 2 months without trying?: No Are you following a special diet at home for diabetes, low fat, or low salt?: No Are you interested in meeting with a dietitian for help understanding your diet?: Yes Do you eat less than 3 meals a day?: No Do you eat fatty meats (anaya, sausage, ribs, etc), fried foods, desserts, large amounts of salad dressings, margarine, butter, or cheese most days?: Yes Do you have food allergies? [Enter types in comment field]: No Do you eat in restaurants more than 3 times a week?: No Do you season food with salt, seasoning salt, or garlic salt?: No Do you used canned, boxed, frozen meals, or soups, seasoning packets?: Yes Total Score:: 3 Exercise - Final/Discharge Physician Prescribed Exercise Modalities: Treadmill, Rower, Airdyne, NuStep, SciFit and Lateral Copper Etcher Frequency: 3x/week for 12 weeks [36 sessions] Intensity: 60-80% of age predicted maximum heart rate reserve Current METSs:: 3 Target Heart Rate:: 88-102 Nutrition - 30-Day Assessment Weight Mgt (Other Care) Height: 5 ft 9.5 in Weight:: 178 lb BMI: 25.9 Nutrition - 60-Day Assessment Weight Mgt (Other Care) Height: 5 ft 9.5 in Weight:: 178 lb BMI: 25.9 Core - Final Assessment Hypertension Resting Blood Pressure:: 130/62 [place] [employer] Hypertension Guidelines Core - 60-Day Assessment Hypertension Resting Blood Pressure:: 130/62 [place] [employer] Hypertension Guidelines Psychosocial - 30-Day Assess Target Goals Target Goals Psychosocial - 60-Day Assess Target Goals Target Goals Psychosocial - 90-Day Assess Target Goals Target Goals Psychosocial - Final Assessmen Target Goals Target Goals Nutrition - 90-Day Assessment Weight Mgt (Other Care) Height: 5 ft 9.5 in Weight:: 178 lb BMI: 25.9 Nutrition - Final Assessment Program Goals Patient has diagnosis of Hyperlipidemia (ICD E78)?: Yes Weight Mgt (Other Care) Height: 5 ft 9.5 in Weight:: 178 lb BMI: 25.9
--- OUTSIDE RECORDS SUMMARY | 2023-04-23 09:58 | XMS RPT_ITS | CCD ---
Author Name Unknown Address [address] [place] [address] Organization [facility] Care Team Providers Care Composition Stone Applicator Name Role Phone Alva SOLER, David Lincoln Primary Care Provider Allergies Allergy Classification Reported Allergen(s) Allergy Type Date of Onset Reaction(s) Facility (2 sources) atorvastatin Drug Allergy 1 Other: See Comments [facility] (2 sources) Dust Propensity to adverse reactions 5 Intolerance [facility] Work Phone: (2 sources) HMG-CoA reductase inhibitor Drug Intolerance 4 Other: See Comments [facility] (2 sources) Niacin Drug Allergy 7 GI Upset [facility] Work Phone: (2 sources) Pravastatin Drug Allergy 1 Other: See Comments [facility] (2 sources) rosuvastatin Drug Allergy 1 Other: See Comments [facility] (2 sources) Simvastatin Drug Allergy 1 Other: See Comments [facility] (2 sources) Homeopathic Products Propensity to adverse reactions 5 Intolerance [facility] Work Phone: Medications Completed/Discontinued Medications Medication Drug [...] antibody , confirmatory test DILATED RETINAL EXAM [facility] Start: 03-26-2022 3 comp foot exam completed DIABETIC FOOT EXAM [facility] Start: 03-26-2022 ANNUAL 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 ANNUAL PCP TEAM CHRONIC DISEASE VISIT [facility] Start: 03-26-2022 COVID-19 VACCINE (#1) COVID-19 VACCI NE (#1) [facility] Immunizations Immunization Date Immunization Notes Care Provider Fa alex 09-02-2011 tetanus toxoid, reduced diphtheria toxoid, and acellular pertussis vaccine, adsorbed David Calle MD Work Phone: [facility] 10-30-1995 diphtheria and tetan us toxoids, adsorbed for pediatric use David Calle MD Work Phone: [facility] Work Phone: 02-18-1993 hepatitis B vaccine, adult dosage David Calle MD Work Phone: [facility] Work Phone: 08-25-1983 diphtheria and tetan us toxoids, adsorbed for pediatric use David Calle MD Work Phone: [facility] Work Phone: 11-14-1973 diphtheria and tetan us toxoids, adsorbed for pediatric use David Calle MD Work Phone: [facility] Work Phone: 11-12-1973 diphtheria and tetan us toxoids, adsorbed for pediatric use David Calle MD Work Phone: [facility] Work Phone: 05-20-1959 trivalent poliovirus vaccine, live, oral David Calel MD Work Phone: [facility] Work Phone: 04-12-1959 diphtheria and tetan us toxoids, adsorbed for pediatric use David Calle MD Work Phone: [facility] Work Phone: 12-09-1956 trivalent poliovirus vaccine, live, oral David Calle MD Work Phone: [facility] Work Phone: 07-31-1955 diphtheria and tetan us toxoids, adsorbed for pediatric use David Calle MD Work Phone: [facility] Work Phone: 09-30-1954 diphtheria and tetan us toxoids, adsorbed for pediatric use David Calle MD Work Phone: [facility] Work Phone: 08-19-1954 diphtheria and tetan us toxoids, adsorbed for pediatric use David Calle MD Work Phone: [facility] Work Phone: Payers Date Payer Category Payer Private Health Insurance [employer] HU[employer] MEDICARE SUPPLEMENT [id number] 2019-Present [phone] [address] [address] [place] [address] Indemnity [id number] 2014 Medicare MEDICARE MEDICAR E A AND B [id number] 2014-Present [phone] [place] [address] Medicare [id number] Social History Date Type Detail Facility Tobacco smoking stat [facility] Never smoked tobacco [facility] Start: 12-31-2020 Alcohol intake 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 Tone Colon- endocrinology/[facility], per patient request. Reports he will see this doctor on 09-17, for his chronic kidney dx and DM. documented in this encounter [facility] Progress note 03-26-2021 Note Date & Type Note Facility 03-26-2021 Note HNO ID: [id number] Author: Eboni Cardozo APRN.ELECTRICAL TECHNICIAN Service: ? Author Type: Nurse Practitioner Type: [...] Lipitor [Atorvastatin Calcium], Niaspan [Niacin (Antihyperlipidemic)], Pravastatin, Lgtoldk-Ofx-Mhe Reductase Inhibitors, and Zocor [Simvastatin] MEDICATIONS Current [...] pulses, not se (more content not included)... [facility] Progress note 12-31-2020 Note Date & Type Note Facility 12-31-2020 Note HNO ID: [id number] Author: Brittany Billingsley APRN.ELECTRICAL TECHNICIAN Service: ? Author Type: Nurse Practitioner Type: Progress Notes Filed: 12/31/2020 2:30 PM Note Text: This note was created using Oravelriter. Subjective Werner Ferrell is a 70 year [...] history is provided by the patient. No it risk and assurance manager was used. Cough This is a new [...] Laterality Date - [facility]2011 Colonoscopy. repeat in 10 years - [facility] PROSTATECTOM[facility] 11/30/2018 - PAST SURGICAL HISTORY OF right 5th finger - REMOVAL OF TONSILS,<11 Y/O ALLERGIES Crestor [Rosuvastatin Calcium], Dust, Hayfever [Homeopathic Products], Lipitor [Atorvastatin Calcium], Niaspan [Niacin (Antihyperlipidemic)], Pravastatin, Wmvednl-Mxn-Nqo Reductase Inhibitors, and Zocor [Simvastatin] MEDICATIONS levothyroxine [...] 89 - Coronary Artery Disease Father Fatal [place] age 60 - Heart Brother - Heart [...] gait problem. Skin (more content not included)... [facility] Progress note 09-24-2020 Note Date & Type Note Facility 09-24-2020 Note HNO ID: [id number] Author: Eboni Cardozo APRN.ELECTRICAL TECHNICIAN Service: ? Author Type: Nurse Practitioner Type: [...] Lipitor [Atorvastatin Calcium], Niaspan [Niacin (Antihyperlipidemic)], Pravastatin, Jsxgmkt-Ync-Ylz Reductase Inhibitors, and Zocor [Simvastatin] MEDICATIONS Current [...] Ref Rng AND (more content not included)... [facility] History of Past illness Narrative 09-16-2010 Note Date & Type Note Facility documented as of this encounter (statuses as of 08/27/2021) [facility] History of Past illness Narrative 09-16-2010 Note Date & Type Note Facility documented as of this encounter (statuses as of 09/09/2021) [facility] Evaluation note Note Date & Type Note Facility documented in this encounter [facility] Summary Purpose Family History No Family History Records FoundNo Family History Records Found Advance Directives No Advanced Directives Records FoundNo Advanced Directives Records Found Additional Source Comments (unrecognized sect ion and content) No Status Records FoundNo Status Records Found INFORMATION SOURCE (unrecogn ized section and content) DATE CREATED AUTHOR AUTHOR'S ORGANIZ ATION 08/29/2021 [facility] Source Comments (unrecognize d section and content) In the event this informatio n is protected by the Federal Confidentiality of Alcohol and Drug Abuse Patient Records regulations: The Federal rules restrict any use of the information to criminally investigate or prosecute any alcohol or drug abuse patient.[facility] the event this information is protected by the Federal Confidentiality of Alcohol and Drug Abuse Patient Records regulations: The Federal rules restrict any use of the information to criminally investigate or prosecute any alcohol or drug abuse patient.[facility] Reason for Visit (unrecogniz ed section and content) Reason Onset Date Comments Refill Request 09/09/2021 Care Teams (unrecognized sec tion and content) Composition Stone Applicator Relationship Specialty Start Date End Date David Calle MD [address] [place], [place] [id number] PCP - General Family Practice 05/30/19 FOR [...] BE BASED ON THE PRIMARY CLINICAL RECORDS. [facility] [employer] [facility]. provides no warranty or guarantee of the accuracy or completeness of information in this document.
[2023-04-23 10:18] VITALS: BP 130/62; PULSE 72; O2SAT 98
[2023-04-23 10:40] VITALS: BMI 25.9
[2023-04-23 10:43] VITALS: BP 130/62; BMI 25.9
== END | disposition home or self-care (01) ==
LOC: CR 09:34
PROVIDERS: PCP Nurse Practitioner Family; Referring Provider Internal Medicine Cardiovascular Disease; Visit Provider Internal Medicine Cardiovascular Disease
DX: Z95.5 Presence of coronary angioplasty implant and graft (principal); E11.42 Type 2 diabetes mellitus with diabetic polyneuropathy; C80.1 Malignant (primary) neoplasm, unspecified; G47.30 Sleep apnea, unspecified; I10 Essential (primary) hypertension; N40.0 Benign prostatic hyperplasia without lower urinary tract symptoms; K81.9 Cholecystitis, unspecified; Z71.3 Dietary counseling and surveillance; R13.10 Dysphagia, unspecified; E78.00 Pure hypercholesterolemia, unspecified; Z87.448 Personal history of other diseases of urinary system; E03.9 Hypothyroidism, unspecified; R25.2 Cramp and spasm; H91.90 Unspecified hearing loss, unspecified ear; G62.9 Polyneuropathy, unspecified; Z78.9 Other specified health status; Z97.3 Presence of spectacles and contact lenses; Z90.79 Acquired absence of other genital organ(s); Z90.89 Acquired absence of other organs; Z98.890 Other specified postprocedural states; Z96.659 Presence of unspecified artificial knee joint; Z90.49 Acquired absence of other specified parts of digestive tract

== ENCOUNTER 2023-05-05 08:00 | Outpatient (RCR) | payer MEDICARE, OTHER, SELFPAY ==
[2023-04-23 10:43] VITALS: BMI 25.9
== END 2023-05-05 23:59 ==
LOC: CR 08:00
PROVIDERS: PCP Nurse Practitioner Family; Referring Provider Internal Medicine Cardiovascular Disease; Visit Provider Internal Medicine Cardiovascular Disease
DX: I21.11 ST elevation (STEMI) myocardial infarction involving right coronary artery (principal); Z95.5 Presence of coronary angioplasty implant and graft; I25.10 Atherosclerotic heart disease of native coronary artery without angina pectoris
CPT/HCPCS: 93798

== ENCOUNTER 2023-05-18 09:57 | Inpatient (IN) | payer MEDICARE, OTHER, SELFPAY ==
[2023-04-23 10:43] VITALS: BMI 25.9
[2023-05-18] VITALS (9 sets, daily range): BP systolic 73–151; BP diastolic 41–92; PULSE 77–191; RESP 14–20; TEMP 36.1–36.5; O2SAT 88–100; BMI 27.1; BMI 26.5
[2023-05-18] MEDS: Adenosine 6 MG/2 ML Syringe IV (10:10)
[2023-05-18] MEDS: Adenosine 6 MG/2 ML Syringe 12 MG IV (10:12)
--- NOTE | 2023-05-18 10:15 | EDS_ITS ---
HPI History of Present Illness Chief Complaint: Dizziness Informant: patient Onset/Context/Timing Onset: Today Context: Sudden Onset Timing: Continuous Quality: Lightheaded Location: Generalized Worsened by: Nothing Relieved by: Nothing Narrative Narrative: Patient presents with dizziness that began this morning. Patient states he took a hot shower and when he was done he started feeling dizzy. Patient states he felt like he was lightheaded. Patient denies any chest pain. Patient admits to some palpitations. Patient admits to some shortness of breath. Patient denies any nausea or vomiting. Patient denies any diaphoresis. Patient denies any back pain or headache. Patient denies any recent fevers or chills. Patient had a similar episode a few weeks ago but he was in a dark room with some flashing lights. Patient states he had a recent myocardial infarction and had stents placed in April of this year. [facility] Medical History BPH (benign prostatic hyperplasia) Cancer Cholecystitis Diabetes mellitus Dietary restriction Difficulty swallowing High cholesterol History of renal disease Hypertension Hypothyroid Leg cramping Loss of hearing Neuropathy Non-smoker Sleep apnea treated with continuous positive airway pressure (CPAP) Wears glasses Home Medications wfwvbymz-[id number]-qkgmp acid 0.4 mg-lycopene 300 mcg-lutein 250 mcg tablet (Centrum Silver) 1 ea PO DAILY SUPPLEMENT' 01/08/13 [History Last Taken 05/18/23] omega 3-dha 60 mg-epa 90 mg-fish oil 500 mg capsule, delayed release (Fish Oil) 1,000 mg PO BID supplement 05/24/15 [History Last Taken 05/18/23] potassium citrate 10 mEq (1,080 mg) tablet,extended release (Urocit-K 10) 1,080 mg PO DAILY SUPPLEMENT 05/24/15 [History Last Taken 05/18/23] fenofibrate nanocrystallized 145 mg tablet 145 mg PO DAILY CHOLESTEROL 10/19/17 [History Last Taken 05/18/23] ezetimibe 10 mg tablet 10 mg PO DAILY 12/06/22 [History Last Taken 05/18/23] vit C 250 mg-vit E 90 mg-zinc 40 mg-copper 1 dr-pisbin-pquusq capsule (PreserVision AREDS-2) 1 tab PO BID eye health 12/06/22 [History Last Taken 05/18/23] cholecalciferol (vitamin D3) 50 mcg (2,000 unit) capsule (D3-2000) 50 mcg PO DAILY 02/11/23 [History Last Taken 05/18/23] losartan 100 mg tablet 100 mg PO DAILY 04/10/23 [History Last Taken 05/18/23] aspirin 81 mg tablet,delayed release 81 mg PO DAILYCM 90 days #90 tabs 04/13/23 [Rx Last Taken 05/18/23] clopidogrel 75 mg tablet 75 mg PO DAILY #90 tabs 04/13/23 [Rx Last Taken 05/18/23] glipizide 5 mg tablet 2.5 mg PO DINNER diabetes 04/26/23 [History Last Taken 05/17/23] THERAWORX See Rx Instructions .Route .COMPLEX 05/18/23 [History Last Taken Unknown] levothyroxine 100 mcg tablet 100 mcg PO DAILY thyroid 05/18/23 [History Last Taken 05/18/23] metformin 1,000 mg tablet 1,000 mg PO BID DIABETES 05/18/23 [History Last Taken 05/18/23] Allergy/AdvReac Type Severity Reaction Status Date / Time Lhcejiy-Xmf-Wao Reductase AdvReac leg cramps Verified 05/18/23 09:57 Inhibitor Surgical History H/O prostatectomy History of tonsillectomy and adenoidectomy Hx of cardiac catheterization (~04/10/23) Hx of colonoscopy Hx of total knee replacement S/P laparoscopic cholecystectomy Stented coronary artery (~04/10/23) Social History household members: spouse current occupational status: retired Smoking Status: Never smoker ROS ROS ED Constitutional Constitutional ED: Denies chills or fever(s) Eyes Eyes: Denies blurry vision or diplopia ENT ENT ED: Denies rhinorrhea or sore throat Cardiovascular Cardiovascular: Reports palpitations and racing heartbeat; Denies chest pain Respiratory/Chest Respiratory/Chest: Reports dyspnea; Denies cough Gastrointestinal Gastrointestinal: Denies nausea or vomiting Genitourinary Genitourinary ED: Denies dysuria or hematuria Musculoskeletal Musculoskeletal: Denies back pain or neck pain Integumentary Denies abscess or rash Neurologic Neurologic: Denies headache(s) or weakness Allergic/Immunologic Allergic/Immunologic ED: Denies mouth swelling or urticaria EXAM Physical Exam Const Vital Signs: 05/18/23 09:58 05/18/23 10:07 05/18/23 10:16 Temperature 97.6 F L Temperature Source Temporal Pulse Rate 129 H 191 H Respiratory Rate 20 H 14 Respiratory Effort Normal Non-Labored Respiratory Pattern Normal Blood Pressure 73/41 L 91/57 L Blood Pressure Mean 51 68 Pulse Ox 88 98 Oxygen Delivery Method Room Air Room Air Oxygen Flow Rate (L/min) 05/18/23 10:22 05/18/23 11:00 05/18/23 12:00 Temperature Temperature Source Pulse Rate 90 89 Respiratory Rate 16 14 Respiratory Effort Respiratory Pattern Blood Pressure 132/76 H 136/92 H Blood Pressure Mean 94 106 Pulse Ox 98 99 Oxygen Delivery Method Nasal Cannula Room Air Room Air Oxygen Flow Rate (L/min) 2 05/18/23 12:32 Temperature 97.6 F L Temperature Source Pulse Rate 89 Respiratory Rate 16 Respiratory Effort Respiratory Pattern Blood Pressure 130/76 H Blood Pressure Mean 94 Pulse Ox 99 Oxygen Delivery Method Oxygen Flow Rate (L/min) Positive well nourished and well developed General Appearance ED: well developed and NAD HEENT Reports moist mucous membranes Neck supple and no JVD Chest Wall inspection of chest normal and palpation of chest normal Resp normal respiratory effort and clear to auscultation bilaterally Cardio regular rhythm Rate: tachycardic GI non-tender and non-distended Palpation: soft Extremity normal to inspection General Extremety ED: Negative for edema or tenderness General Extremity: Negative for edema Neuro oriented x3, CN's II-XII intact bilaterally and no sensory deficits noted Sensorium / Orientation: alert Motor Exam: strength 5/5 throughout Psych mental status grossly normal MDM MDM MDM Narrative Medical decision making narrative: Differential diagnosis includes cardiac dysrhythmia, cardiac ischemia, electrolyte abnormality, anemia, hyperthyroidism, and hypomagnesemia. EKG will be obtained to assess for cardiac dysrhythmia and cardiac ischemia. CBC will be obtained to assess for leukocytosis and anemia. Basic metabolic profile will be obtained to assess for electrolyte abnormality and renal function. High- sensitivity troponin will be obtained to assess for cardiac ischemia. 2-hour repeat high-sensitivity troponin will be obtained to assess for ongoing cardiac ischemia. TSH will be obtained to assess for hypothyroidism and hyperthyroidism. Serum magnesium will be obtained to assess for hypomagnesemia. PT with INR and PTT will be obtained to assess for coagulopathy. Chest x-ray will be obtained to assess for pneumonia and pneumothorax. Lab Data Attestation: I reviewed the patient's lab results. Lab results narrative: CBC was reviewed. There is a slight anemia with a hemoglobin of 12.4 and hematocrit 37.9. Basic metabolic profile showed a slightly elevated BUN and creatinine of 29 and 1.9. These are consistent with prior results. Glucose was 244. High-sensitivity troponin was reviewed and was normal at 41. Magnesium was reviewed and was normal at 2.2. TSH was reviewed and was normal at 3.6. PT with INR and PTT were reviewed and were within normal limits. Labs: Laboratory Results - last 24 hr 05/18/23 05/18/23 10:08 12:37 WBC 6.1 RBC 4.27 L Hgb 12.4 L Hct 37.9 L MCV 88.8 MCH 29.0 MCHC 32.7 RDW Std Deviation 43.6 RDW Coeff of [place] 13.5 Plt Count 307 MPV 10.6 Immature Gran % (Auto) 0.200 Neut % (Auto) 59.8 Lymph % (Auto) 23.9 [place] % (Auto) 8.8 Eos % (Auto) 5.7 H Baso % (Auto) 1.6 H Absolute Neuts (auto) 3.7 Absolute Lymphs (auto) 1.46 Nucleated RBC % 0 PT 13.8 INR 1.1 APTT 27.9 Sodium 140 Potassium 3.9 Chloride 109 H Carbon Dioxide 23.0 Anion Gap 8 BUN 29 H Creatinine 1.90 H Estim Creat Clear Calc 34.11 Est GFR (MDRD) Af Amer 45 L Est GFR (MDRD) Non-Af 37 L BUN/Creatinine Ratio 15.3 Glucose 244 H Calcium 9.6 Magnesium 2.2 Troponin I High Sens 41 839 H* TSH 3.60 Radiography Chest X-Ray - ED: 1 View, Read by ED Physician, Read by Radiologist and No Acute Disease Diagnostic Testing: Clinical Impression(s) from Imaging Studies Chest X-Ray 05/18/23 10:16 IMPRESSION: No acute abnormality is present. Electronically Signed: Bharath Steen MD at 11:07 EST , Portable 1 view chest x-ray was obtained. On my independent interpretation, lung pierson are clear. There is normal cardiac silhouette. Bony thorax is normal. There is no acute process noted. Radiologist also interpreted the x- ray and agrees. EKG Initial EKG: Attestation: I personally reviewed and interpreted this EKG as follows: Interpretation: SVT Comments: Initial EKG was obtained. On my independent interpretation, it shows supraventricular tachycardia with a rate of 190. QRS interval was prolon ged at 144 ms. QTc interval was 465 ms. There is left axis deviation at -60. There is some ST depression in leads V2, V3, and V4 which are likely rate related. Prior EKG tracings: available for review Prior: Changed (The wide-complex and SVT is new compared to previous EKG dated 04/12/2023) Follow-up EKG: Attestation: I personally reviewed and interpreted this EKG as follows: Interpretation: Sinus Rhythm (With first-degree AV block with a rate of 86) and Non-Specific ST Changes Comments: Repeat EKG was obtained. On my independent interpretation, it shows sinus rhythm with first-degree AV block with a rate of 86. SC interval was 260 ms. QRS interval was normal at 100 ms. QTc interval was normal at 418 ms. There is left axis deviation at -29. There are some nonspecific ST-T wave changes in the inferior and lateral leads. Prior EKG tracings: available for review Prior: Unchanged (04/12/2023) Management Discussion w/another healthcare provider: Hospitalist (Dr. Mcclelland) and [employer] Underwriter (Dr. Humphrey) Treatment and Re-Evaluation :: Patient was given a dose of adenosine 6 mg. Patient converted back to a normal sinus rhythm. Patient was feeling better. Patient then went back into the wide-complex supraventricular tachycardia. Patient was given a dose of 12 mg of adenosine. Patient converted again back to a normal sinus rhythm. Patient was given aspirin. Patient was given IV fluids. Patient is feeling better on reevaluation. Case was discussed with Dr. Humphrey from cardiology. He recommended starting the patient on metoprolol tartrate 50 mg twice daily and observing the patient in the hospital for 24 hours. If the patient remains in a normal sinus rhythm, he can be discharged tomorrow. Case will be discussed with the hospitalist for admission. Patient will be admitted to PCU for observation. Patient understood and was agreeable with the plan. All questions were answered. Critical Care Time Critical Care Time: Yes Critical care time (excluding procedures): 30-74 minutes (34), Including time spent:, Discussing w/Patient &/or Family/Medical Record Librarians Teacher, Discussing w/Consultants, Arranging Admission or Transfer and Performing Direct Patient Care at Bedside Discharge Plan Dx/Rx/DC Orders Clinical Impression: Supraventricular tachycardia, Coronary artery disease Disposition Disposition: Acute Care Hospital [facility] Discharge Date/Time: 05/18/23 12:55
--- NOTE | 2023-05-18 10:16 | EKG12_ITS ---
Test Reason : HIGH HR Blood Pressure : / mmHG Vent. Rate : 190 BPM Atrial Rate : 000 BPM P-R Int : 000 ms QRS Dur : 144 ms QT Int : 262 ms P-R-T Axes : 000 -60 127 degrees QTc Int : 465 ms Critical Test Result: High HR , Arrhythmia Wide QRS tachycardia -SVT with abberancy Left axis deviation Abnormal ECG When compared with ECG of 12-APR-2023 04:58, Wide QRS tachycardia has replaced Sinus rhythm Vent. rate has increased BY 119 BPM Confirmed by Markell Humphrey [id number]), writer editor MARISOL SOTOMAYOR ([id number]) on 05/21/2023 9:54:28 AM Referred By: DECLAN/AR Confirmed By:Markell Humphrey
--- NOTE | 2023-05-18 10:16 | RAD_ITS ---
STUDY: X-RAY CHEST REASON FOR EXAM: Male, 73 years old. Chest pain TECHNIQUE: Single AP portable view of the chest. COMPARISON: Comparison is made with prior study dated April 10, 2023. FINDINGS: EKG electrodes are seen. The lungs are clear and expanded. There is no demonstrated pleural abnormality. Normal size heart. Normal mediastinum and joseph. Normal visualized pulmonary arteries. Normal visualized aortic arch and descending thoracic aorta. There are diffuse degenerative changes of the visualized thoracic spine. Normal visualized ribs, clavicles, and shoulders. There is no demonstrated abnormality of the visualized soft tissue structures of the upper abdomen. RAD/Chest 1 View (Portable) IMPRESSION: No acute abnormality is present. Electronically Signed: Bharath Steen MD at 11:07 EST ,
[2023-05-18] MEDS: 0.9% Normal Saline (1000mL) 1,000 ML 150 ML IV (10:20)
[2023-05-18] MEDS: Aspirin 81 MG TAB.CHEW 324 MG PO (10:23)
[2023-05-18 10:26] LABS: Absolute Lymphocyte Count 1.46 X10^3/uL (0.83-4.51); Absolute Neutrophil Count 3.7 X10^3/uL (2.0-7.7); Basophil% 1.6 % (0-1); Eosinophil# 0.35 X10^3/uL; Eosinophils% 5.7 % (0-5); Hematocrit 37.9 % (40-54); Hemoglobin 12.4 g/dL (13.0-16.5); Lymphocyte # 1.46 X10^3/ul (0.83-4.51); Lymphocyte % 23.9 % (19-41); Mean Corp Hgb Conc 32.7 g/dL (32-36); Mean Corpuscular Volume 88.8 fL (80-94); Mean Platelet Vol. 10.6 fl (6.2-12.0); Monocyte# 0.54 X10^3/uL; Monocyte% 8.8 % (0-10); NRBC Flagged by Analyzer 0 % (0-5); Neutrophil # 3.66 X10^3/uL (2.7-7.7); Neutrophil % 59.8 % (47-70); Platelet Count 307 K/mm3 (150-450); RBC Distribution Width CV 13.5 % (11.6-14.6); RBC Distribution Width SD 43.6 fl (35.1-43.9); Red Blood Count 4.27 M/mm3 (4.6-6.2); White Blood Count 6.1 K/mm3 (4.4-11.0)
--- NOTE | 2023-05-18 10:30 | EKG12_ITS ---
Test Reason : REPEAT Blood Pressure : / mmHG Vent. Rate : 086 BPM Atrial Rate : 086 BPM P-R Int : 260 ms QRS Dur : 100 ms QT Int : 350 ms P-R-T Axes : 059 -29 -61 degrees QTc Int : 418 ms Sinus rhythm with 1st degree A-V block with Premature atrial complexes with Aberrant conduction Inferior infarct , age undetermined ST & T wave abnormality, consider lateral ischemia Abnormal ECG When compared with ECG of 18-MAY-2023 10:03, MANUAL COMPARISON REQUIRED, DATA IS UNCONFIRMED Confirmed by Markell Humphrey ([id number]), rewrite editor MARISOL SOTOMAYOR ([id number]) on 05/21/2023 9:53:29 AM Referred By: DECLAN Confirmed By:Markell Humphrey
[2023-05-18 10:50] LABS: Anion Gap 8 (5-15); BUN 29 mg/dL (7-18); BUN/Creat Ratio 15.3 RATIO (10-20); Calcium,Total 9.6 mg/dL (8.5-10.1); Chloride 109 mmol/L (98-107); EST Glomerular Filtration Rate 37 mL/min (>60); Est Glom Filt Rate - Afr Amer 45 mL/min (>60); Estimated Creatinine Clearance 34.11 ml/min; Glucose 244 mg/dL (74-106); Magnesium 2.2 mg/dL (1.6-2.6); Potassium 3.9 mmol/L (3.5-5.1); Sodium Level 140 mmol/L (136-145); Troponin-I HS (w/2H Reflex) 41 pg/mL (3.0-78.0)
[2023-05-18 10:53] LABS: International Normalized Ratio 1.1; Prothrombin Time (Protime)PT. 13.8 SECONDS (11.7-14.9)
[2023-05-18 10:54] LABS: Partial Thromboplast Time 27.9 Seconds (24.1-36.2)
[2023-05-18 12:23] LABS: Reflex Troponin-HS? (from REC) Y
[2023-05-18] MEDS: Metoprolol Tartrate 25 MG Tablet PO ×2 (12:50→19:57)
--- NOTE | 2023-05-18 12:54 | NURSING ---
PCU OBS TERELETSKY SUPRAVENTRICULAR TACHYCARDIA, CAD
--- NOTE | 2023-05-18 12:58 | PCM.CONS.C ---
Assessment & Plan Assessment/Plan (1) Supraventricular tachycardia: PLAN: Patient presented with symptomatic supraventricular tachycardia heart rates documented between 140 and 190. The patient was near syncopal but did not have true syncope. He converted with adenosine intravenously in the emergency department. The patient had a history of transient complete heart block early after his acute inferior wall microinfarction in early April 2023. He was therefore not on a beta-gian post infarct. At this point in time I recommend we trial him on Lopressor 25 mg twice daily and monitor him on telemetry. If the patient has an increasing heart block second-degree type II or greater we will need to consider discontinuing the beta-gian and trialing flecainide 50 mg twice daily. He will need to be monitored for 72 hours on telemetry to institute flecainide and his given situation. We also need to monitor his QT interval. If the patient is intolerant of flecainide the only other alternative would be permanent pacemaker implantation and initiation of rate modulating beta-gian therapy. It is likely that the transient third-degree AV block was related to AV crystal edema in the face of an acute inferior wall infarct. He is now almost 6 weeks out from that infarct and his AV node should have completely recovered as far as it is going to. (2) Atherosclerotic cardiovascular disease: PLAN: Status post stenting of the mid right coronary artery April 10, 2023 LV function is known to be normal an EF of 55% with no wall motion abnormalities post procedure. There is an LAD 60% stenosis documented. The patient is asymptomatic from an anginal standpoint. (3) Transient complete heart block: PLAN: The transient complete heart block occurred early after his acute inferior wall microinfarction in the face of beta-gian therapy. We will rechallenge him with beta-gian therapy to try and treat this supraventricular tachycardia. Please note #1 above for details (4) Hyperlipemia: QUALIFIERS: Hyperlipidemia type: mixed hyperlipidemia Qualified Code(s): E78.2 - Mixed hyperlipidemia PLAN: The patient is on his ezetimibe he is intolerant of statin therapy due to leg cramps. If his LDL is not adequate control consideration may be given for PSK 9 therapy. (5) Hypertension: QUALIFIERS: Hypertension type: unspecified Qualified Code(s): I10 - Essential (primary) hypertension PLAN: Blood pressure is well-controlled on his current medical therapy. PLAN: Plan 1. Admit to telemetry for any initiation of beta-gian therapy. 2. If the patient is intolerant of beta-gian therapy due to bradycardia arrhythmias we would institute flecainide at 50 mg twice daily as initial starting dose versus consideration for permanent pacemaker implantation and subsequent beta-gian therapy. 3. We will address aggressive lipid therapy in the office at his next office visit. HPI Consult Data Date of Consult: 05/18/23 HPI Narrative Reason for Consultation: SVT with h/o CHB HPI Narrative: SINDY GERENFIELD, is a 73 M who presents with a supraventricular tachycardia with apparent conduction. The patient was converted in the emergency department with 6 mg IV adenosine. He went into normal sinus rhythm and then reverted back into the same supraventricular tachycardia. He was given additional adenosine and converted back to sinus rhythm and is maintaining sinus rhythm with a first-degree AV block. The patient presented after he got dizzy and lightheaded in the shower this morning and felt his heart pounding. He had a somewhat similar episode a few days prior at his [employer] concert with there were bright flashing lights. He did not have any seizure type activity and did not pass out either time. He did have near syncope both episodes. The patient was recently hospitalized at [facility] where he had an acute inferior wall infarct April 10, 2023. The patient had a totally occluded mid right coronary which was intervened upon and revascularized. Echocardiogram done later that date showed an ejection fraction of 55% with no regional wall motion abnormality. The patient was initially given beta-gian therapy but developed complete heart block early after his reperfusion. The beta-gian was discontinued. The patient denies any sanjeev syncope but he has had these 2 near syncopal spells that appear to be related to tachyarrhythmias. The patient does not have a prior history of tacky or bradycardia arrhythmias. Patient's is also seen in my office. [facility] Medical History BPH (benign prostatic hyperplasia) Cancer Cholecystitis Diabetes mellitus Dietary restriction Difficulty swallowing High cholesterol History of renal disease Hypertension Hypothyroid Leg cramping Loss of hearing Neuropathy Non-smoker Sleep apnea treated with continuous positive airway pressure (CPAP) Wears glasses Home Medications iadlgfhh-lmq-fqksc acid 0.4 mg-lycopene 300 mcg-lutein 250 mcg tablet (Centrum Silver) 1 ea PO DAILY SUPPLEMENT' 01/08/13 [History Last Taken 05/18/23] omega 3-dha 60 mg-epa 90 mg-fish oil 500 mg capsule, delayed release (Fish Oil) 1,000 mg PO BID supplement 05/24/15 [History Last Taken 05/18/23] potassium citrate 10 mEq (1,080 mg) tablet,extended release (Urocit-K 10) 1,080 mg PO DAILY SUPPLEMENT 05/24/15 [History Last Taken 05/18/23] fenofibrate nanocrystallized 145 mg tablet 145 mg PO DAILY CHOLESTEROL 10/19/17 [History Last Taken 05/18/23] ezetimibe 10 mg tablet 10 mg PO DAILY 12/06/22 [History Last Taken 05/18/23] vit C 250 mg-vit E 90 mg-zinc 40 mg-copper 1 nf-egshbc-csilez capsule (PreserVision AREDS-2) 1 tab PO BID eye health 12/06/22 [History Last Taken 05/18/23] cholecalciferol (vitamin D3) 50 mcg (2,000 unit) capsule (D3-2000) 50 mcg PO DAILY 02/11/23 [History Last Taken 05/18/23] losartan 100 mg tablet 100 mg PO DAILY 04/10/23 [History Last Taken 05/18/23] aspirin 81 mg tablet,delayed release 81 mg PO DAILYCM 90 days #90 tabs 04/13/23 [Rx Last Taken 05/18/23] clopidogrel 75 mg tablet 75 mg PO DAILY #90 tabs 04/13/23 [Rx Last Taken 05/18/23] glipizide 5 mg tablet 2.5 mg PO DINNER diabetes 04/26/23 [History Last Taken 05/17/23] THERAWORX See Rx Instructions .Route .COMPLEX 05/18/23 [History Last Taken Unknown] levothyroxine 100 mcg tablet 100 mcg PO DAILY thyroid 05/18/23 [History Last Taken 05/18/23] metformin 1,000 mg tablet 1,000 mg PO BID DIABETES 05/18/23 [History Last Taken 05/18/23] Allergy/AdvReac Type Severity Reaction Status Date / Time Gpotkvj-UPG-TgK Reductase AdvReac leg cramps Verified 05/18/23 09:57 Inhibitor [Tvagraa-Ery-Zdm Reductase Inhibitor] Surgical History H/O prostatectomy History of tonsillectomy and adenoidectomy Hx of cardiac catheterization (~04/10/23) Hx of colonoscopy Hx of total knee replacement S/P laparoscopic cholecystectomy Stented coronary artery (~04/10/23) Social History household members: spouse current occupational status: retired Smoking Status: Never smoker ROS Constitutional Constitutional: Reports as per HPI Eyes Eyes: Reports systems reviewed and no addt'l complaints, except as documented ENT HEENT: Reports systems reviewed and no addt'l complaints, except as documented Cardiovascular Cardiovascular: Reports as per HPI Respiratory/Chest Respiratory/Chest: Reports systems reviewed and no addt'l complaints, except as documented Gastrointestinal Gastrointestinal: Reports systems reviewed and no addt'l complaints, except as documented Genitourinary Genitourinary: Reports systems reviewed and no addt'l complaints, except as documented Musculoskeletal Musculoskeletal: Reports systems reviewed and no addt'l complaints, except as documented Integumentary Integumentary: Reports systems reviewed and no addt'l complaints, except as documented Neurologic Neurologic: Reports systems reviewed and no addt'l complaints, except as documented Psychiatric Psychiatric: Reports systems reviewed and no addt'l complaints, except as documented Endocrine Endocrinology: Reports systems reviewed and no addt'l complaints, except as documented Hematologic/Lymphatic Hematologic/Lymphatic: Reports systems reviewed and no addt'l complaints, except as documented Allergic/Immunologic Allergic/Immunologic: Reports systems reviewed and no addt'l complaints, except as documented Physical Exam Const oriented x3 Orientation / Consciousness: awake HEENT normocephalic Eyes EOMs intact bilaterally Neck no JVD and no carotid bruits Chest inspection of chest normal Resp normal respiratory effort Auscultation: Negative for rhonchi or wheezes Cardio regular rate, regular rhythm, S1 normal heart sound, S2 normal heart sound, no murmurs, no rub and no gallops GI soft to palpation Extremity no pedal edema Skin no rashes or lesions noted Neuro Neuro Narrative: Alert and oriented x 3 Psych mental status grossly normal Risk Stratification Risk Stratification Applicable: Yes Age >/= 65: Yes >/= 3 CAD Risk Factors (HTN, HLD, DM, family hx of CAD, or current smoker): Yes Aspirin Use in the Past 7 Days: Yes Severe Angina (>/= episodes in 24 hours): No EKG ST Changes >/= 0.5mm: No Positive Cardiac Marker: No AHSAN Risk Stratification Score: 3 AHSAN % Risk: 13% Risk Charges/Coding Visit Charges Inpatient E&M: 13208 Init Hosp L2 Objective Data Vital Signs: Vital Signs Temp Pulse Resp BP Pulse Ox O2 Del Method O2 Flow Rate 97.6 F L 89 16 130/76 H 99 Room Air 2 05/18/23 12:32 05/18/23 12:32 05/18/23 12:32 05/18/23 12:32 05/18/23 12:05/18/23 12:00 05/18/23 10:22 Oxygen Flow Rate (L/min) 2 Oxygen Delivery Method Room Air Weight: 184 lb Body Mass Index (BMI) 27.1 Lab / Micro Data Attestation: I reviewed the patient's lab results. 05/18/23 10:08 05/18/23 10:08 Labs: Laboratory Results - last 24 hr 05/18/23 10:08: WBC 6.1, RBC 4.27 L, Hgb 12.4 L, Hct 37.9 L, MCV 88.8, MCH 29.0, MCHC 32.7, RDW Std Deviation 43.6, RDW Coeff of [place] 13.5, Plt Count 307, MPV 10.6, Immature Gran % (Auto) 0.200, Neut % (Auto) 59.8, Lymph % (Auto) 23.9, [place] % (Auto) 8.8, Eos % (Auto) 5.7 H, Baso % (Auto) 1.6 H, Absolute Neuts (auto) 3.7, Absolute Lymphs (auto) 1.46, Nucleated RBC % 0, PT 13.8, INR 1.1, APTT 27.9, Sodium 140, Potassium 3.9, Chloride 109 H, Carbon Dioxide 23.0, Anion Gap 8, BUN 29 H, Creatinine 1.90 H, Estim Creat Clear Calc 34.11, Est GFR (MDRD) Af Amer 45 L, Est GFR (MDRD) Non-Af 37 L, BUN/Creatinine Ratio 15.3, Glucose 244 H, Calcium 9.6, Magnesium 2.2, Troponin I High Sens 41, TSH 3.60 Rhythm Strip Rhythm Strip: Sinus Rhythm Rate: 77 Cardiology Labs/Tests 05/18/23 10:08: WBC 6.1, RBC 4.27 L, Hgb 12.4 L, Hct 37.9 L, MCV 88.8, MCH 29.0, MCHC 32.7, Plt Count 307, MPV 10.6, Immature Gran % (Auto) 0.200, Neut % (Auto) 59.8, Lymph % (Auto) 23.9, [place] % (Auto) 8.8, Eos % (Auto) 5.7 H, Baso % (Auto) 1.6 H, Absolute Neuts (auto) 3.7, Nucleated RBC % 0, PT 13.8, INR 1.1, APTT 27.9, Sodium 140, Potassium 3.9, Chloride 109 H, Carbon Dioxide 23.0, Anion Gap 8, BUN 29 H, Creatinine 1.90 H, Est GFR (MDRD) Af Amer 45 L, Est GFR (MDRD) Non-Af 37 L, BUN/Creatinine Ratio 15.3, Glucose 244 H, Calcium 9.6, Magnesium 2.2 Rhythm: EKG: ECHO: Stress Test: Cardiac Cath: PCI: CT Surgery: Holter monitor: EPS: PPM: CXR: Chest CT Scan: Radiography Diagnostic Testing: Radiology Impression Chest X-Ray 05/18/23 10:16 IMPRESSION: No acute abnormality is present. Electronically Signed: Bharath Steen MD at 11:07 EST , EKG Follow-up EKG: Attestation: I personally reviewed and interpreted this EKG as follows: Interpretation: Normal sinus rhythm heart rate 70 recent inferior wall myocardial infarction.
[2023-05-18 13:04] LABS: Troponin-I HS 839 pg/mL (3.0-78.0)
--- OUTSIDE RECORDS SUMMARY | 2023-05-18 14:15 | XMS RPT_ITS | CCD ---
Author Name Unknown Address [address] [place] [address] Organization [facility] Care Team Providers Care Band Maker Name Role Phone Alva SOLER, David Lincoln Primary Care Provider Allergies Allergy Classification Reported Allergen(s) Allergy Type Date of Onset Reaction(s) Facility (2 sources) atorvastatin Drug Allergy 1 Other: See Comments [facility] (2 sources) Dust Propensity to adverse reactions 5 Intolerance [facility] Work Phone: (2 sources) HMG-CoA reductase inhibitor Drug Intolerance 4 Other: See Comments [facility] (2 sources) Niacin Drug Allergy 7 GI Upset [facility] Work Phone: (2 sources) Pravastatin Drug Allergy 1 Other: See Comments [facility] (2 sources) rosuvastatin Drug Allergy 1 Other: See Comments [facility] (2 sources) Simvastatin Drug Allergy 1 Other: See Comments [facility] (2 sources) Homeopathic Products Propensity to adverse reactions 5 Intolerance [facility] Work Phone: Medications Completed/Discontinued Medications [...] David Calle MD Work Phone: [facility] [place] Procedures Date Procedure Procedure Detail Performing Clinician Start: 06-21-2020 Adult depression screening assessment David Calle MD Work Phone: Start: 11-20-2011 Colonoscopy Jovon Calle MD Work Phone: Plan of Treatment Date Care Activity Detail Author Start: 04-10-2022 Hepatitis C antibody , confirmatory test DILATED RETINAL EXAM [facility] Start: 03-26-2022 3 comp foot exam completed DIABETIC FOOT EXAM [facility] Start: 03-26-2022 ANNUAL PCP TEAM 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 ANNUAL PCP TEAM CHRONIC DISEASE VISIT [facility] Start: 03-26-2022 COVID-19 VACCINE (#1) COVID-19 VACCI NE (#1) [facility] Immunizations Immunization Date Immunization Notes Care Provider Fa alex 09-02-2011 tetanus toxoid, reduced diphtheria toxoid, and acellular pertussis vaccine, adsorbed David Calle MD Work Phone: [facility] 10-30-1995 diphtheria and tetan us toxoids, adsorbed for pediatric use David Calle MD Work Phone: [facility] Work Phone: 02-18-1993 hepatitis B vaccine, adult dosage David Calle MD Work Phone: [facility] Work Phone: 08-25-1983 diphtheria and tetan us toxoids, adsorbed for pediatric use David Calle MD Work Phone: [facility] Work Phone: 11-14-1973 diphtheria and tetan us toxoids, adsorbed for pediatric use David Calle MD Work Phone: [facility] Work Phone: 11-12-1973 diphtheria and tetan us toxoids, adsorbed for pediatric use David Calle MD Work Phone: [facility] Work Phone: 05-20-1959 trivalent poliovirus vaccine, live, oral David Calle MD Work Phone: [facility] Work Phone: 04-12-1959 diphtheria and tetan us toxoids, adsorbed for pediatric use David Calle MD Work Phone: [facility] Work Phone: 12-09-1956 trivalent poliovirus vaccine, live, oral David Calle MD Work Phone: [facility] Work Phone: 07-31-1955 diphtheria and tetan us toxoids, adsorbed for pediatric use David Calle MD Work Phone: [facility] Work Phone: 09-30-1954 diphtheria and tetan us toxoids, adsorbed for pediatric use David Calle MD Work Phone: [facility] Work Phone: 08-19-1954 diphtheria and tetan us toxoids, adsorbed for pediatric use David Calle MD Work Phone: [facility] Work Phone: Payers Date Payer Category Payer Private Health Insurance HU[employer] HU[employer]NA MEDICARE SUPPLEMENT [id number] 2019-Present [phone] [address] [address] [place] [address] Indemnity [id number] 2014 Medicare MEDICARE MEDICAR E A AND B [id number] 2014-Present [phone] [place] [address] Medicare [id number] Social History Date Type Detail Facility Tobacco smoking stat [facility] Never smoked tobacco [facility] Start: 12-31-2020 Alcohol intake 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 Tone Colon- endocrinology/[place], per patient request. Reports he will see this doctor on 09-17, for his chronic kidney dx and DM. documented in this encounter [facility] Progress note 03-26-2021 Note Date & Type Note Facility 03-26-2021 Note HNO ID: [id number] Author: Eboni Cardozo APRN.HUMAN RESOURCES OFFICE ASSISTANT Service: ? Author Type: Nurse Practitioner Type: [...] Lipitor [Atorvastatin Calcium], Niaspan [Niacin (Antihyperlipidemic)], Pravastatin, Bixwaki-Drw-Qkv Reductase Inhibitors, and Zocor [Simvastatin] MEDICATIONS Current [...] pulses, not se (more content not included)... [facility] Progress note 12-31-2020 Note Date & Type Note Facility 12-31-2020 Note HNO ID: [id number] Author: Brittany Billingsley APRN.HUMAN RESOURCES OFFICE ASSISTANT Service: ? Author Type: Nurse Practitioner Type: Progress Notes Filed: 12/31/2020 2:30 PM Note Text: This note was created using Laiyaoyaoriter. Subjective Werner Ferrell is a 70 year [...] history is provided by the patient. No flowers salesperson was used. Cough This is a new [...] - Hypothyroidism - Kidney stones 2014 - AMRY (obstructive sleep apnea) - Other and unspecified hyperlipidemia - Overweight (BMI 25.0-29.9) - Prostate cancer (HCC) 10/31/2018 s/p prostatectomy PAST SURGICAL HISTORY Procedure Laterality Date - [facility]/20/2011 Colonoscopy. repeat in 10 years - [facility] RADICAL PROSTATECTOMY 11/30/2018 - PAST SURGICAL HISTORY OF right 5th finger - REMOVAL OF TONSILS,<11 Y/O ALLERGIES Crestor [Rosuvastatin Calcium], Dust, Hayfever [Homeopathic Products], Lipitor [Atorvastatin Calcium], Niaspan [Niacin (Antihyperlipidemic)], Pravastatin, Pkwlrls-Tcf-Mrz Reductase Inhibitors, and Zocor [Simvastatin] MEDICATIONS levothyroxine [...] 89 - Coronary Artery Disease Father Fatal [place] age 60 - Heart Brother - Heart [...] gait problem. Skin (more content not included)... [facility] Progress note 09-24-2020 Note Date & Type Note Facility 09-24-2020 Note HNO ID: [id number] Author: Eboni Cardozo APRN.HUMAN RESOURCES OFFICE ASSISTANT Service: ? Author Type: Nurse Practitioner Type: [...] Lipitor [Atorvastatin Calcium], Niaspan [Niacin (Antihyperlipidemic)], Pravastatin, Bqodtyk-Jdu-Njn Reductase Inhibitors, and Zocor [Simvastatin] MEDICATIONS Current [...] Ref Rng AND (more content not included)... [facility] History of Past illness Narrative 09-16-2010 Note Date & Type Note Facility documented as of this encounter (statuses as of 08/27/2021) [facility] History of Past illness Narrative 09-16-2010 Note Date & Type Note Facility documented as of this encounter (statuses as of 09/09/2021) [facility] Evaluation note Note Date & Type Note Facility documented in this encounter [facility] Summary Purpose Family History No Family History Records FoundNo Family History Records Found Advance Directives No Advanced Directives Records FoundNo Advanced Directives Records Found Additional Source Comments (unrecognized sect ion and content) No Status Records FoundNo Status Records Found INFORMATION SOURCE (unrecogn ized section and content) DATE CREATED AUTHOR AUTHOR'S ORGANIZ ATION 08/29/2021 [facility] Source Comments (unrecognize d section and content) In the event this informatio n is protected by the Federal Confidentiality of Alcohol and Drug Abuse Patient Records regulations: The Federal rules restrict any use of the information to criminally investigate or prosecute any alcohol or drug abuse patient.[facility] the event this information is protected by the Federal Confidentiality of Alcohol and Drug Abuse Patient Records regulations: The Federal rules restrict any use of the information to criminally investigate or prosecute any alcohol or drug abuse patient.[facility] Reason for Visit (unrecogniz ed section and content) Reason Onset Date Comments Refill Request 09/09/2021 Care Teams (unrecognized sec tion and content) Band Maker Relationship Specialty Start Date End Date David Calle MD [address] [place], [place] [id number] PCP - General Family Practice 05/30/19 FOR [...] BE BASED ON THE PRIMARY CLINICAL RECORDS. [facility] [employer] [facility]. provides no warranty or guarantee of the accuracy or completeness of information in this document.
--- NOTE | 2023-05-18 16:45 | PCM.HP.STD ---
HPI - General General Date of Admission: 05/18/23 Date of Service: 05/18/23 Chief Complaint: Supraventricular tachycardia HPI Narrative SINDY GREENFIELD, is a 73 M who presents to the emergency room at [facility] with complaints of increased heart rate along with dizziness today. Patient denied any chest pain, patient was treated for a STEMI on April 10, 2023. Lab was obtained, white blood cell count was unremarkable, hemoglobin was slightly low at 12.4, creatinine was elevated at 1.9 and glucose was 244. Patient's troponin was unremarkable chest x-ray showed no acute abnormality. EKG was performed, patient appeared to be in SVT at a rate of 190. Patient was given IV adenosine 6 mg, he converted back to normal sinus rhythm, patient then went back into SVT and was given a dose of 12 mg of adenosine, patient then converted back to normal sinus rhythm. Case was discussed with cardiology initially, they recommended placing the patient on a beta-gian but it appears that the patient had an episode of heart block after his STEMI in April and he was taken off beta-gian. Cardiology came to the emergency room to examine the patient and discussed treatment options with him, it was decided that we would admit the patient to telemetry on PCU and administer low-dose metoprolol and observe the patient's heart rhythm. [facility] Medical History BPH (benign prostatic hyperplasia) Cancer Cholecystitis Diabetes mellitus Dietary restriction Difficulty swallowing High cholesterol History of renal disease Hypertension Hypothyroid Leg cramping Loss of hearing Neuropathy Non-smoker Sleep apnea treated with continuous positive airway pressure (CPAP) Wears glasses Home Medications fgthkafv-cst-sacnn acid 0.4 mg-lycopene 300 mcg-lutein 250 mcg tablet (Centrum Silver) 1 ea PO DAILY SUPPLEMENT' 01/08/13 [History Last Taken 05/18/23] omega 3-dha 60 mg-epa 90 mg-fish oil 500 mg capsule, delayed release (Fish Oil) 1,000 mg PO BID supplement 05/24/15 [History Last Taken 05/18/23] potassium citrate 10 mEq (1,080 mg) tablet,extended release (Urocit-K 10) 1,080 mg PO DAILY SUPPLEMENT 05/24/15 [History Last Taken 05/18/23] fenofibrate nanocrystallized 145 mg tablet 145 mg PO DAILY CHOLESTEROL 10/19/17 [History Last Taken 05/18/23] ezetimibe 10 mg tablet 10 mg PO DAILY 12/06/22 [History Last Taken 05/18/23] vit C 250 mg-vit E 90 mg-zinc 40 mg-copper 1 yw-ypokor-ffepka capsule (PreserVision AREDS-2) 1 tab PO BID eye health 12/06/22 [History Last Taken 05/18/23] cholecalciferol (vitamin D3) 50 mcg (2,000 unit) capsule (D3-2000) 50 mcg PO DAILY 02/11/23 [History Last Taken 05/18/23] losartan 100 mg tablet 100 mg PO DAILY 04/10/23 [History Last Taken 05/18/23] aspirin 81 mg tablet,delayed release 81 mg PO DAILYCM 90 days #90 tabs 04/13/23 [Rx Last Taken 05/18/23] clopidogrel 75 mg tablet 75 mg PO DAILY #90 tabs 04/13/23 [Rx Last Taken 05/18/23] glipizide 5 mg tablet 2.5 mg PO DINNER diabetes 04/26/23 [History Last Taken 05/17/23] THERAWORX See Rx Instructions .Route .COMPLEX 05/18/23 [History Last Taken Unknown] levothyroxine 100 mcg tablet 100 mcg PO DAILY thyroid 05/18/23 [History Last Taken 05/18/23] metformin 1,000 mg tablet 1,000 mg PO BID DIABETES 05/18/23 [History Last Taken 05/18/23] Allergy/AdvReac Type Severity Reaction Status Date / Time Weyfvwu-MDE-QbN Reductase AdvReac leg cramps Verified 05/18/23 09:57 Inhibitor [Jgxizlf-Twq-Uuu Reductase Inhibitor] Surgical History H/O prostatectomy History of tonsillectomy and adenoidectomy Hx of cardiac catheterization (~04/10/23) Hx of colonoscopy Hx of total knee replacement S/P laparoscopic cholecystectomy Stented coronary artery (~04/10/23) Social History household members: spouse current occupational status: retired Smoking Status: Never smoker ROS Constitutional Constitutional: Denies anorexia, change in weight, fever(s), night sweats or weakness Eyes Eyes: Denies blurry vision, change in vision, discharge from eye(s) or eye pain Cardiovascular Cardiovascular: Reports lightheadedness, palpitations and rapid heart rate; Denies chest pain, claudication or edema Respiratory/Chest Respiratory/Chest: Denies cough, hemoptysis, shortness of breath at rest or shortness of breath with exertion Gastrointestinal Gastrointestinal: Denies abdominal pain, constipation, diarrhea, hematemesis, hematochezia, melena, nausea or vomiting Genitourinary Genitourinary: Denies dysuria, hematuria, urinary frequency, urinary hesitancy, urinary incontinence or urinary urgency Musculoskeletal Musculoskeletal: Denies back pain, joint pain, joint stiffness, joint swelling, myalgias or neck pain Neurologic Neurologic: Denies abnormal gait, abnormal speech, dizziness, focal weakness, headache(s), loss of vision, numbness, other visual disturbances, paresthesias, syncope or tingling Psychiatric Psychiatric: Denies anxiety, cognitive impairment, depression, irritability, mood swings or suicidal ideation Endocrine Endocrinology: Denies change in body appearance, cold intolerance, excessive sweating, heat intolerance, polydipsia or polyuria Hematologic/Lymphatic Hematologic/Lymphatic: Denies none, anemia, easy bleeding, easy bruising or lymphadenopathy Allergic/Immunologic Allergic/Immunologic: Denies rhinitis, urticaria, eczemia or asthma Vital Signs Vital Signs Vital Signs: 05/18/23 09:58 05/18/23 10:07 05/18/23 10:16 Temperature 97.6 F L Temperature Source Temporal Pulse Rate 129 H 191 H Respiratory Rate 20 H 14 Respiratory Effort Normal Non-Labored Respiratory Depth Respiratory Pattern Normal Blood Pressure 73/41 L 91/57 L Blood Pressure Mean 51 68 Blood Pressure Source Blood Pressure Position Blood Pressure Location Pulse Ox 88 98 Oxygen Delivery Method Room Air Room Air Oxygen Flow Rate (L/min) 05/18/23 10:22 05/18/23 11:00 05/18/23 12:00 Temperature Temperature Source Pulse Rate 90 89 Respiratory Rate 16 14 Respiratory Effort Respiratory Depth Respiratory Pattern Blood Pressure 132/76 H 136/92 H Blood Pressure Mean 94 106 Blood Pressure Source Blood Pressure Position Blood Pressure Location Pulse Ox 98 99 Oxygen Delivery Method Nasal Cannula Room Air Room Air Oxygen Flow Rate (L/min) 2 05/18/23 12:32 05/18/23 13:27 05/18/23 13:30 Temperature 97.6 F L 97.7 F L Temperature Source Oral Pulse Rate 89 77 Respiratory Rate 16 18 Respiratory Effort Normal Non-Labored Respiratory Depth Normal Respiratory Pattern Normal Blood Pressure 130/76 H 137/76 H Blood Pressure Mean 94 96 Blood Pressure Source Monitor Blood Pressure Position Semi-Fowlers Blood Pressure Location Left Arm Pulse Ox 99 100 Oxygen Delivery Method Room Air Room Air Oxygen Flow Rate (L/min) Weight Weight: 81.6 kg Body Mass Index (BMI) 26.5 Physical Exam Const alert, oriented x3, no apparent distress, average body habitus and healthy appearing General Appearance: cooperative, well kempt and well developed Orientation / Consciousness: awake, oriented to person, oriented to place and oriented to time HEENT normocephalic, head/scalp atraumatic, hearing grossly normal bilaterally and moist oral mucous membranes Eyes PERRL, EOMs intact bilaterally and conjunctivae normal Neck supple, no JVD, thyroid normal and no carotid bruits General: trachea midline Resp normal respiratory effort, no retractions, no use of accessory muscles and clear to auscultation bilaterally Auscultation: Negative for rales, rhonchi or wheezes Cardio regular rate, regular rhythm, S1 normal heart sound, S2 normal heart sound, no murmurs, no rub and no gallops GI normal to inspection, nondistended, normoactive bowel sounds, soft to palpation, non-tender and non-distended Extremity no clubbing, cyanosis or edema Skin no rashes or lesions noted General Skin Exam: no breakdown Neuro oriented x3, CN's II-XII intact bilaterally, moves all extremities, no focal motor deficits and no sensory deficits noted Sensorium / Orientation: awake and alert Speech: speech normal Psych affect normal Results Lab / Micro Data 05/18/23 10:08 05/18/23 10:08 Labs: Laboratory Results - last 24 hr 05/18/23 10:08: WBC 6.1, RBC 4.27 L, Hgb 12.4 L, Hct 37.9 L, MCV 88.8, MCH 29.0, MCHC 32.7, RDW Std Deviation 43.6, RDW Coeff of Tico 13.5, Plt Count 307, MPV 10.6, Immature Gran % (Auto) 0.200, Neut % (Auto) 59.8, Lymph % (Auto) 23.9, Sac % (Auto) 8.8, Eos % (Auto) 5.7 H, Baso % (Auto) 1.6 H, Absolute Neuts (auto) 3.7, Absolute Lymphs (auto) 1.46, Nucleated RBC % 0, PT 13.8, INR 1.1, APTT 27.9, Sodium 140, Potassium 3.9, Chloride 109 H, Carbon Dioxide 23.0, Anion Gap 8, BUN 29 H, Creatinine 1.90 H, Estim Creat Clear Calc 34.11, Est GFR (MDRD) Af Amer 45 L, Est GFR (MDRD) Non-Af 37 L, BUN/Creatinine Ratio 15.3, Glucose 244 H, Calcium 9.6, Magnesium 2.2, Troponin I High Sens 41, TSH 3.60 05/18/23 12:37: Troponin I High Sens 839 H* Rhythm Strip Rhythm Strip: Sinus Rhythm Rate: 77 Imaging Radiology Impression Chest X-Ray 05/18/23 10:16 IMPRESSION: No acute abnormality is present. Electronically Signed: Bharath Steen MD at 11:07 EST , Assessment & Plan Assessment/Plan (1) Supraventricular tachycardia: PLAN: Plan 1. Supraventricular tachycardia-patient will be admitted to PCU telemetry, he was given 25 mg of metoprolol in the emergency room orally, he will be maintained on metoprolol tartrate 50 mg twice daily and he will be observed for any further arrhythmias or heart block. He will be seen in consultation by cardiology. #2 coronary artery disease-patient recently had stent placement in April 2023 after having a STEMI, I talked to him about taking a low-dose statin since he is not on any statin, he states he would try a low-dose of Pravachol, I placed him on 20 mg daily. He will remain on aspirin and Plavix as well as Zetia. #3 hyperlipidemia-again patient has agreed to try low-dose of a statin in addition to Zetia, I told him that taking an avpf-xmp-lfsgchj fish oil supplement would not be beneficial #4 type 2 diabetes-patient is on low-dose glipizide, I do not feel the patient needs fingerstick blood sugars while he was hospitalized #5 essential hypertension-patient is to remain on his home medications, blood pressure will be monitored and medicines will be adjusted if necessary #6 hypothyroidism-patient is on Synthroid Total clinical time spent by myself addressing the patient's medical issues, reviewing all of his data, and collaborating with patient's care team: 55 minutes Charges/Coding Visit Charges Inpatient E&M: 19713 Init Hosp L2
[2023-05-18] MEDS: 0.9% Saline Lock 10 ML Syringe IV (16:54)
[2023-05-18] MEDS: metFORMIN HCl 1,000 MG Tablet 1000 MG PO (16:55)
[2023-05-18] MEDS: glipiZIDE 5 MG Tablet 2.5 MG PO (16:55)
[2023-05-18] MEDS: Pravastatin 20 MG Tablet PO (19:57)
[2023-05-19 04:00] VITALS: BP 125/74; PULSE 74; RESP 16; TEMP 36.4; O2SAT 98
[2023-05-19] MEDS: Levothyroxine 100 MCG Tablet PO (05:10)
--- NOTE | 2023-05-19 05:55 | EKG12_ITS ---
Test Reason : AM EKG Blood Pressure : / mmHG Vent. Rate : 067 BPM Atrial Rate : 067 BPM P-R Int : 234 ms QRS Dur : 096 ms QT Int : 390 ms P-R-T Axes : 055 -28 -49 degrees QTc Int : 412 ms Sinus rhythm with 1st degree A-V block Minimal voltage criteria for LVH, may be normal variant ( R in aVL ) Inferior infarct , age undetermined NS ST AND T WAVE ABNORMALITY Abnormal ECG Confirmed by Markell Humphrey ([id number]), medical editor AIDEN LORENZO ([id number]) on 05/19/2023 1:38:44 PM Referred By: JOSE Confirmed By:Markell Humphrey
[2023-05-19 07:35] LABS: Anion Gap 10 (5-15); BUN 31 mg/dL (7-18); BUN/Creat Ratio 20.5 RATIO (10-20); Calcium,Total 9.1 mg/dL (8.5-10.1); Chloride 109 mmol/L (98-107); Creatinine, Serum 1.51 mg/dL (0.70-1.30); EST Glomerular Filtration Rate 48 mL/min (>60); Est Glom Filt Rate - Afr Amer 58 mL/min (>60); Estimated Creatinine Clearance 42.92 ml/min; Glucose 118 mg/dL (74-106); Potassium 4.1 mmol/L (3.5-5.1); Sodium Level 143 mmol/L (136-145)
--- NOTE | 2023-05-19 07:47 | PCM.PN.CARD ---
Subjective Subjective The patient tolerated the addition of metoprolol 25 mg twice daily to his medical regiment. His heart rate has been between 55 and 70 on telemetry. He has an occasional blocked PAC. There was no recurrence of his supraventricular tachycardia. The patient denies any syncope or near syncope since admission he denies any chest pains PND or orthopnea. The patient is interested in returning to cardiovascular rehab as soon as possible. Objective Data Vital Signs: Vital Signs Temp Pulse Resp BP Pulse Ox O2 Del Method O2 Flow Rate 97.5 F L 74 16 125/74 H 98 Room Air 2 05/19/23 04:00 05/19/23 04:00 05/19/23 04:00 05/19/23 04:00 05/19/23 04:00 05/19/23 07:45 05/18/23 10:22 Oxygen Flow Rate (L/min) 2 Oxygen Delivery Method Room Air Weight: 179 lb 14.355 oz Body Mass Index (BMI) 26.5 Intake & Output: Intake and Output for Last 24 Hours 05/17/23 05/18/23 05/19/23 23:59 23:59 23:59 Intake Total 1110 / 1350 480 / 480 Balance 1110 / 1350 480 / 480 Lab / Micro Data Attestation: I reviewed the patient's lab results. 05/18/23 10:08 05/19/23 06:25 Labs: Laboratory Results - last 24 hr 05/18/23 10:08: WBC 6.1, RBC 4.27 L, Hgb 12.4 L, Hct 37.9 L, MCV 88.8, MCH 29.0, MCHC 32.7, RDW Std Deviation 43.6, RDW Coeff of Tico 13.5, Plt Count 307, MPV 10.6, Immature Gran % (Auto) 0.200, Neut % (Auto) 59.8, Lymph % (Auto) 23.9, Cloud % (Auto) 8.8, Eos % (Auto) 5.7 H, Baso % (Auto) 1.6 H, Absolute Neuts (auto) 3.7, Absolute Lymphs (auto) 1.46, Nucleated RBC % 0, PT 13.8, INR 1.1, APTT 27.9, Sodium 140, Potassium 3.9, Chloride 109 H, Carbon Dioxide 23.0, Anion Gap 8, BUN 29 H, Creatinine 1.90 H, Estim Creat Clear Calc 34.11, Est GFR (MDRD) Af Amer 45 L, Est GFR (MDRD) Non-Af 37 L, BUN/Creatinine Ratio 15.3, Glucose 244 H, Calcium 9.6, Magnesium 2.2, Troponin I High Sens 41, TSH 3.60 05/18/23 12:37: Troponin I High Sens 839 H* 05/19/23 06:25: Sodium 143, Potassium 4.1, Chloride 109 H, Carbon Dioxide 24.0, Anion Gap 10, BUN 31 H, Creatinine 1.51 H, Estim Creat Clear Calc 42.92, Est GFR (MDRD) Af Amer 58 L, Est GFR (MDRD) Non-Af 48 L, BUN/Creatinine Ratio 20.5 H, Glucose 118 H, Calcium 9.1 Rhythm Strip Rhythm Strip: Sinus Rhythm Rate: 60 Ectopy: PAC(s) (Occasional blocked PACs noted on rhythm strip. No significant heart block noted.) Cardiology Labs/Tests 05/18/23 10:08: WBC 6.1, RBC 4.27 L, Hgb 12.4 L, Hct 37.9 L, MCV 88.8, MCH 29.0, MCHC 32.7, Plt Count 307, MPV 10.6, Immature Gran % (Auto) 0.200, Neut % (Auto) 59.8, Lymph % (Auto) 23.9, Cloud % (Auto) 8.8, Eos % (Auto) 5.7 H, Baso % (Auto) 1.6 H, Absolute Neuts (auto) 3.7, Nucleated RBC % 0, PT 13.8, INR 1.1, APTT 27.9, Sodium 140, Potassium 3.9, Chloride 109 H, Carbon Dioxide 23.0, Anion Gap 8, BUN 29 H, Creatinine 1.90 H, Est GFR (MDRD) Af Amer 45 L, Est GFR (MDRD) Non-Af 37 L, BUN/Creatinine Ratio 15.3, Glucose 244 H, Calcium 9.6, Magnesium 2.2 05/19/23 06:25: Sodium 143, Potassium 4.1, Chloride 109 H, Carbon Dioxide 24.0, Anion Gap 10, BUN 31 H, Creatinine 1.51 H, Est GFR (MDRD) Af Amer 58 L, Est GFR (MDRD) Non-Af 48 L, BUN/Creatinine Ratio 20.5 H, Glucose 118 H, Calcium 9.1 Rhythm: EKG: ECHO: Stress Test: Cardiac Cath: PCI: CT Surgery: Holter monitor: EPS: PPM: CXR: Chest CT Scan: Radiography Diagnostic Testing: Radiology Impression Chest X-Ray 05/18/23 10:16 IMPRESSION: No acute abnormality is present. Electronically Signed: Bharath Steen MD at 11:07 EST , Physical Exam Const oriented x3 HEENT normocephalic Eyes EOMs intact bilaterally Neck no JVD and no carotid bruits Chest inspection of chest normal Resp normal respiratory effort and clear to auscultation bilaterally Cardio regular rate, regular rhythm, S1 normal heart sound, S2 normal heart sound, no murmurs, no rub and no gallops GI normal to inspection, nondistended, normoactive bowel sounds and soft to palpation Extremity no pedal edema Neuro Neuro Narrative: Alert and oriented x 3 Psych mental status grossly normal Assessment & Plan Assessment/Plan (1) Supraventricular tachycardia: PLAN: The SVT has not recurred on metoprolol 25 mg twice daily. The patient's had no significant heart block he has occasional PACs that are blocked. The heart rate has been from 55-70 since his admission on beta-gian therapy. The patient scheduled for cardiovascular rehab on 05/21/2023. I have asked him to have them call me when they hooked him up to telemetry to get a rhythm strip to make certain he is maintaining his current rhythm and he appropriately increases his heart rate with activity. (2) Atherosclerotic cardiovascular disease: PLAN: The patient is secondary risk factors are being managed. Blood pressure is well-controlled he is tolerating his current medical regimen. His statin therapy will be addressed when he is seen in the office in 2 weeks by our advanced practitioner. There is a question of what dose statin he should be on. (3) Transient complete heart block: PLAN: The patient had transient complete heart block on beta-gian therapy early after his recent acute inferior wall myocardial infarction. I feel this was exacerbated by the expected AV crystal edema related to his occluded mid right coronary artery. It appears that he is now tolerating beta-gian therapy and this would be the best option to treat his SVT. We will reevaluate him when he is hooked up in cardiovascular rehab he goes there 3 days a week his next visit is in 48 hours. (4) Hyperlipemia: QUALIFIERS: Hyperlipidemia type: mixed hyperlipidemia Qualified Code(s): E78.2 - Mixed hyperlipidemia PLAN: Lipids will be reevaluated after he seen in the office in 2 weeks we will make a decision then about the best treatment option for him given his history of myalgias in the past. PLAN: Plan From a cardiovascular standpoint the patient can be discharged to home today. He should follow-up with the cardiovascular rehab program on Wednesday, May 21. He will have telemetry performed at that point in time and they will call me with the results. The patient should be seen in 2 weeks in our office with advanced practitioner or me. Charges/Coding Visit Charges Inpatient E&M: 18299 Subs Hosp L3
[2023-05-19 08:55] VITALS: BP 148/64; PULSE 70; RESP 16; TEMP 36; O2SAT 98
[2023-05-19] MEDS: Aspirin E.C. 81 MG Tablet PO (09:05)
[2023-05-19] MEDS: POTASSIUM CITRATE 10 MEQ TABLET.ER PO (09:05)
[2023-05-19] MEDS: Ezetimibe 10 MG Tablet PO (09:05)
[2023-05-19] MEDS: metFORMIN HCl 1,000 MG Tablet 1000 MG PO (09:06)
[2023-05-19] MEDS: Losartan Potassium 100 MG Tablet PO (09:06)
[2023-05-19] MEDS: Fenofibrate 145 MG Tablet PO (09:06)
[2023-05-19] MEDS: Clopidogrel Bisulfate 75 MG Tablet PO (09:06)
[2023-05-19 09:07] VITALS: PULSE 70
[2023-05-19] MEDS: Metoprolol Tartrate 25 MG Tablet PO (09:07)
--- OUTSIDE RECORDS SUMMARY | 2023-05-19 09:16 | XMS RPT_ITS | CCD ---
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 Setter Name Role Phone Alva SOLER, David Lincoln Primary Care Provider Allergies Allergy Classification Reported Allergen(s) Allergy Type Date of Onset Reaction(s) Facility (2 sources) atorvastatin Drug Allergy 1 Other: See Comments [facility] (2 sources) Dust Propensity to adverse reactions 5 Intolerance [facility] Work Phone: (2 sources) HMG-CoA reductase inhibitor Drug Intolerance 4 Other: See Comments [facility] (2 sources) Niacin Drug Allergy 7 GI Upset [facility] Work Phone: (2 sources) Pravastatin Drug Allergy 1 Other: See Comments [facility] (2 sources) rosuvastatin Drug Allergy 1 Other: See Comments [facility] (2 sources) Simvastatin Drug Allergy 1 Other: See Comments [facility] (2 sources) Homeopathic Products Propensity to adverse reactions 5 Intolerance [facility] Work Phone: Medications Completed/Discontinued Medications Medication Drug [...] David Calle MD Work Phone: [facility] [place] Procedures Date Procedure Procedure Detail Performing Clinician Start: 06-21-2020 Adult depression screening assessment David Calle MD Work Phone: Start: 11-20-2011 Colonoscopy Jovon Calle MD Work Phone: Plan of Treatment Date Care Activity Detail Author Start: 04-10-2022 Hepatitis C antibody , confirmatory test DILATED RETINAL EXAM [facility] Start: 03-26-2022 3 comp foot exam completed DIABETIC FOOT EXAM [facility] Start: 03-26-2022 ANNUAL 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 ANNUAL PCP TEAM CHRONIC DISEASE VISIT [facility] Start: 03-26-2022 COVID-19 VACCINE (#1) COVID-19 VACCI NE (#1) [facility] Immunizations Immunization Date Immunization Notes Care Provider Fa alex 09-02-2011 tetanus toxoid, reduced diphtheria toxoid, and acellular pertussis vaccine, adsorbed David Calle MD Work Phone: [facility] 10-30-1995 diphtheria and tetan us toxoids, adsorbed for pediatric use David Calle MD Work Phone: [facility] Work Phone: 02-18-1993 hepatitis B vaccine, adult dosage David Calle MD Work Phone: [facility] Work Phone: 08-25-1983 diphtheria and tetan us toxoids, adsorbed for pediatric use David Calle MD Work Phone: [facility] Work Phone: 11-14-1973 diphtheria and tetan us toxoids, adsorbed for pediatric use David Calle MD Work Phone: [facility] Work Phone: 11-12-1973 diphtheria and tetan us toxoids, adsorbed for pediatric use David Calle MD Work Phone: [facility] Work Phone: 05-20-1959 trivalent poliovirus vaccine, live, oral David Calle MD Work Phone: [facility] Work Phone: 04-12-1959 diphtheria and tetan us toxoids, adsorbed for pediatric use David Calle MD Work Phone: [facility] Work Phone: 12-09-1956 trivalent poliovirus vaccine, live, oral David Calle MD Work Phone: [facility] Work Phone: 07-31-1955 diphtheria and tetan us toxoids, adsorbed for pediatric use David Calle MD Work Phone: [facility] Work Phone: 09-30-1954 diphtheria and tetan us toxoids, adsorbed for pediatric use David Calle MD Work Phone: [facility] Work Phone: 08-19-1954 diphtheria and tetan us toxoids, adsorbed for pediatric use David Calle MD Work Phone: [facility] Work Phone: Payers Date Payer Category Payer Private Health Insurance HU[employer] HU[employer]NA MEDICARE SUPPLEMENT [id number] 2019-Present [phone] [address] [address] [place] [address] Indemnity [id number] 2014 Medicare MEDICARE MEDICAR E A AND B [id number] 2014-Present [phone] [place] [address] Medicare [id number] Social History Date Type Detail Facility Tobacco smoking stat [facility] Never smoked tobacco [facility] Start: 12-31-2020 Alcohol intake 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 Tone Colon- endocrinology/[place], per patient request. Reports he will see this doctor on 09-17, for his chronic kidney dx and DM. documented in this encounter [facility] Progress note 03-26-2021 Note Date & Type Note Facility 03-26-2021 Note HNO ID: [id number] Author: Eboni Cardozo APRN.CAPITAL PROJECT ENGINEER Service: ? Author Type: Nurse Practitioner Type: [...] Lipitor [Atorvastatin Calcium], Niaspan [Niacin (Antihyperlipidemic)], Pravastatin, Hgbsaxv-Oxm-Mdl Reductase Inhibitors, and Zocor [Simvastatin] MEDICATIONS Current [...] pulses, not se (more content not included)... [facility] Progress note 12-31-2020 Note Date & Type Note Facility 12-31-2020 Note HNO ID: [id number] Author: Brittany Billingsley APRN.CAPITAL PROJECT ENGINEER Service: ? Author Type: Nurse Practitioner Type: Progress Notes Filed: 12/31/2020 2:30 PM Note Text: This note was created using [email or web address]. Subjective Werner Ferrell is a 70 year [...] Laterality Date - [facility]2011 Colonoscopy. repeat in 10 years - [facility] PROSTATECTOM[facility] 11/30/2018 - PAST SURGICAL HISTORY OF right 5th finger - REMOVAL OF TONSILS,<11 Y/O ALLERGIES Crestor [Rosuvastatin Calcium], Dust, Hayfever [Homeopathic Products], Lipitor [Atorvastatin Calcium], Niaspan [Niacin (Antihyperlipidemic)], Pravastatin, Lldberj-Xqa-Ebv Reductase Inhibitors, and Zocor [Simvastatin] MEDICATIONS levothyroxine [...] gait problem. Skin (more content not included)... [facility] Progress note 09-24-2020 Note Date & Type Note Facility 09-24-2020 Note HNO ID: [id number] Author: Eboni Cardozo APRN.CAPITAL PROJECT ENGINEER Service: ? Author Type: Nurse Practitioner Type: [...] Lipitor [Atorvastatin Calcium], Niaspan [Niacin (Antihyperlipidemic)], Pravastatin, Wzljuwv-Wgg-Bsx Reductase Inhibitors, and Zocor [Simvastatin] MEDICATIONS Current [...] Ref Rng AND (more content not included)... [facility] History of Past illness Narrative 09-16-2010 Note Date & Type Note Facility documented as of this encounter (statuses as of 08/27/2021) [facility] History of Past illness Narrative 09-16-2010 Note Date & Type Note Facility documented as of this encounter (statuses as of 09/09/2021) [facility] Evaluation note Note Date & Type Note Facility documented in this encounter [facility] Summary Purpose Family History No Family History Records FoundNo Family History Records Found Advance Directives No Advanced Directives Records FoundNo Advanced Directives Records Found Additional Source Comments (unrecognized sect ion and content) No Status Records FoundNo Status Records Found INFORMATION SOURCE (unrecogn ized section and content) DATE CREATED AUTHOR AUTHOR'S ORGANIZ ATION 08/29/2021 [facility] Source Comments (unrecognize d section and content) In the event this informatio n is protected by the Federal Confidentiality of Alcohol and Drug Abuse Patient Records regulations: The Federal rules restrict any use of the information to criminally investigate or prosecute any alcohol or drug abuse patient.[facility] the event this information is protected by the Federal Confidentiality of Alcohol and Drug Abuse Patient Records regulations: The Federal rules restrict any use of the information to criminally investigate or prosecute any alcohol or drug abuse patient.[facility] Reason for Visit (unrecogniz ed section and content) Reason Onset Date Comments Refill Request 09/09/2021 Care Teams (unrecognized sec tion and content) Lockstitch Zipper Setter Relationship Specialty Start Date End Date David Calle MD [address] [place], [place] [address] PCP - General Family Practice 05/30/19 FOR [...] BE BASED ON THE PRIMARY CLINICAL RECORDS. [facility] [facility]. provides no warranty or guarantee of the accuracy or completeness of information in this document.
--- NOTE | 2023-05-19 09:42 | DCINST_ITS ---
Discharge Instructions Diet Discharge Diet: 1800 Calorie Control Diet Activity Discharge Activity: Return to Normal Activity Weight Bearing Status: Full weight bearing Follow Up Care Test Results: Test results from this visit will be discussed in further detail at your follow- up appointment, if applicable. Discharge Plan Admission Admit Date/Time: 05/18/23 12:48 Primary Reason for Your Visit: Supraventricular tachycardia Attending Provider: Gil Mcclelland Primary Care Provider: Mita Zaidi Consulting Providers: Markell Humphrey Discharge Orders/Prescriptions Prescriptions: New metoprolol tartrate 25 mg Tablet 25 mg PO BID Qty: 60 0RF pravastatin 20 mg Tablet 20 mg PO QHS Qty: 30 0RF Continued Centrum Silver 1 EACH tablet 1 ea PO DAILY potassium citrate [Urocit-K 10] 10 MEQ tablet extended release 1,080 mg PO DAILY fenofibrate nanocrystallized 145 tablet 145 mg PO DAILY Patient Comments: ezetimibe 10 mg tablet 10 mg PO DAILY PreserVision AREDS-2 250-90-40-1 mg capsule 1 tab PO BID glipizide 5 mg tablet 2.5 mg PO DINNER cholecalciferol (vitamin D3) [D3-2000] 50 mcg (2,000 unit) capsule 50 mcg PO DAILY losartan 100 mg tablet 100 mg PO DAILY aspirin 81 mg Tablet,Delayed Release (Dr/Ec) 81 mg PO DAILYCM 90 Days Qty: 90 0RF levothyroxine 100 mcg tablet 100 mcg PO DAILY Rx Instructions: take in am metformin 1,000 mg tablet 1,000 mg PO BID THERAWORX foam See Rx Instructions .ROUTE .COMPLEX Rx Instructions: APPLY TO MUSCLE CRAMPS NEEDED; clopidogrel 75 mg tablet 75 mg PO DAILY Qty: 90 3RF Discontinued Fish Oil 500 MG capsule,delayed release(DR/EC) 1,000 mg PO BID Referrals / Follow Up: Markell Humphrey MD [Med Staff - Active Staff] - See Referral Note (In 2 weeks, call office for appointment) Mita Zaidi, LAUNDROMAT WORKER-C [Primary Care Provider] - Disposition Disposition (needs filled in before D/C Order can be placed): Home, Self Care
[2023-05-19 09:49] VITALS: BP 138/78; PULSE 74; RESP 14; TEMP 36.2; O2SAT 99
--- NOTE | 2023-05-19 09:49 | DS.PCM_ITS ---
Providers Date of Admission: 05/18/23 Date of Discharge: 05/19/23 Primary Care Physician: JOCELINE Morejon Consultations 05/18/23 13:10 Consult: Cardiology Routine Consulting Provider: Markell Humphrey Reason for Consult: SVT EMERGENT Consult: No MD Notified: Yes Date Notified: 05/18/23 Time Notified: 12:52 Method of Notification: Verbal Reason For Visit: SUPRAVENTRICULAR TACHICARDIA, CORONARY ARTERY DISE Diagnosis Discharge Diagnosis (1) Supraventricular tachycardia: Status: Acute Code(s): I47.10 - Supraventricular tachycardia, unspecified (2) Atherosclerotic cardiovascular disease: Status: Acute Code(s): I25.10 - Atherosclerotic heart disease of lime coronary artery without angina pectoris (3) Transient complete heart block: Status: Acute Code(s): I44.2 - Atrioventricular block, complete (4) Hyperlipemia: Status: Chronic Code(s): E78.5 - Hyperlipidemia, unspecified Qualifiers: Hyperlipidemia type: mixed hyperlipidemia Qualified Code(s): E78.2 - Mixed hyperlipidemia Plan 1. Supraventricular tachycardia-patient will be admitted to PCU telemetry, he was given 25 mg of metoprolol in the emergency room orally, he will be maintained on metoprolol tartrate 50 mg twice daily and he will be observed for any further arrhythmias or heart block. He will be seen in consultation by cardiology. #2 coronary artery disease-patient recently had stent placement in April 2023 after having a STEMI, I talked to him about taking a low-dose statin since he is not on any statin, he states he would try a low-dose of Pravachol, I placed him on 20 mg daily. He will remain on aspirin and Plavix as well as Zetia. #3 hyperlipidemia-again patient has agreed to try low-dose of a statin in addition to Zetia, I told him that taking an cvou-pyk-zbgwflf fish oil supplement would not be beneficial #4 type 2 diabetes-patient is on low-dose glipizide, I do not feel the patient needs fingerstick blood sugars while he was hospitalized #5 essential hypertension-patient is to remain on his home medications, blood pressure will be monitored and medicines will be adjusted if necessary #6 hypothyroidism-patient is on Synthroid Total clinical time spent by myself addressing the patient's medical issues, reviewing all of his data, and collaborating with patient's care team: 55 mi nutes Medications at Discharge Home Medications jnosbiiz-dns-exosk acid 0.4 mg-lycopene 300 mcg-lutein 250 mcg tablet (Centrum Silver) 1 ea PO DAILY SUPPLEMENT' 01/08/13 potassium citrate 10 mEq (1,080 mg) tablet,extended release (Urocit-K 10) 1,080 mg PO DAILY SUPPLEMENT 05/24/15 fenofibrate nanocrystallized 145 mg tablet 145 mg PO DAILY CHOLESTEROL 10/19/17 ezetimibe 10 mg tablet 10 mg PO DAILY 12/06/22 vit C 250 mg-vit E 90 mg-zinc 40 mg-copper 1 ld-optmys-gmsirc capsule (PreserVision AREDS-2) 1 tab PO BID eye health 12/06/22 cholecalciferol (vitamin D3) 50 mcg (2,000 unit) capsule (D3-2000) 50 mcg PO DAILY 02/11/23 losartan 100 mg tablet 100 mg PO DAILY 04/10/23 aspirin 81 mg tablet,delayed release 81 mg PO DAILYCM 90 days #90 tabs 04/13/23 clopidogrel 75 mg tablet 75 mg PO DAILY #90 tabs 04/13/23 glipizide 5 mg tablet 2.5 mg PO DINNER diabetes 04/26/23 THERAWORX See Rx Instructions .Route .COMPLEX 05/18/23 levothyroxine 100 mcg tablet 100 mcg PO DAILY thyroid 05/18/23 metformin 1,000 mg tablet 1,000 mg PO BID DIABETES 05/18/23 metoprolol tartrate 25 mg tablet 25 mg PO BID #60 tabs 05/19/23 pravastatin 20 mg tablet 20 mg PO QHS #30 tabs 05/19/23 Hospital Course Operations None Procedures None Summary of Care Provided Minutes Spent on Discharge: 30 Hospital Course: This 73-year-old white male was seen in the emergency room at [facility] with a chief complaint of lightheadedness and rapid heartbeat, EKG performed in the ER showed the patient to be in SVT with a rate of approximately 180, patient was given adenosine which returned the patient's normal sinus rhythm but shortly afterwards he went into another episode of SVT and was given an additional bolus of adenosine and then he converted to normal sinus rhythm after that. Patient was admitted to PCU, he was seen in consultation by cardiology and he was placed on a beta-gian (metoprolol) orally. Patient had no further episodes of SVT during his hospitalization, he was monitored on telemetry. Patient was reevaluated on 05/19/2023 by cardiology and it was felt that he was stable for discharge home. Patient was seen and examined on 05/19/2023: On examination he appeared in good health and spirits. Vital signs as documented. Skin warm and dry and without overt rashes. Neck without JVD, neck was supple, trachea midline, thyroid was normal. Lungs clear bilaterally, normal air movement was noted. Heart exam notable for regular rhythm, normal sounds and absence of murmurs, rubs or gallops. Abdomen unremarkable and without evidence of organomegaly, masses, or abdominal aortic enlargement. Bowel sounds are present, abdomen is not distended. Extremities nonedematous, no cyanosis was noted, no clubbing was noted. Neuro: Cranial nerves II through XII are grossly intact, no focal motor deficits were noted, sensation to light touch and pinprick intact, motor exam 5/5 throughout. Psych: Patient is alert and oriented x3, he does not appear anxious or depressed, he does not appear agitated. Patient improved faster than expected and was stable for discharge home on 05/19/2023. Weight / BMI Weight Weight: 81.6 kg Body Mass Index (BMI) 26.5 ABG / Lab / Microbiology Data 05/18/23 10:08 05/19/23 06:25 Laboratory: Laboratory Results - last 24 hr 05/18/23 10:08: WBC 6.1, RBC 4.27 L, Hgb 12.4 L, Hct 37.9 L, MCV 88.8, MCH 29.0, MCHC 32.7, RDW Std Deviation 43.6, RDW Coeff of Tico 13.5, Plt Count 307, MPV 10.6, Immature Gran % (Auto) 0.200, Neut % (Auto) 59.8, Lymph % (Auto) 23.9, [place] % (Auto) 8.8, Eos % (Auto) 5.7 H, Baso % (Auto) 1.6 H, Absolute Neuts (auto) 3.7, Absolute Lymphs (auto) 1.46, Nucleated RBC % 0, PT 13.8, INR 1.1, APTT 27.9, Sodium 140, Potassium 3.9, Chloride 109 H, Carbon Dioxide 23.0, Anion Gap 8, BUN 29 H, Creatinine 1.90 H, Estim Creat Clear Calc 34.11, Est GFR (MDRD) Af Amer 45 L, Est GFR (MDRD) Non-Af 37 L, BUN/Creatinine Ratio 15.3, Glucose 244 H, Calcium 9.6, Magnesium 2.2, Troponin I High Sens 41, TSH 3.60 05/18/23 12:37: Troponin I High Sens 839 H* 05/19/23 06:25: Sodium 143, Potassium 4.1, Chloride 109 H, Carbon Dioxide 24.0, Anion Gap 10, BUN 31 H, Creatinine 1.51 H, Estim Creat Clear Calc 42.92, Est GFR (MDRD) Af Amer 58 L, Est GFR (MDRD) Non-Af 48 L, BUN/Creatinine Ratio 20.5 H, Glucose 118 H, Calcium 9.1 Radiography Diagnostic Testing: Radiology Impression Chest X-Ray 05/18/23 10:16 IMPRESSION: No acute abnormality is present. Electronically Signed: Bharath Steen MD at 11:07 EST Reading Location ID and State: [address] [place] [address] , Service support , D/C Instructions Discharge Diet: 1800 Calorie Control Diet Weight Bearing Status: Full weight bearing Meaningful Use Info Meaningful Use Diagnoses (Choose all that apply): None applicable Discharge Plan Admission Admit Date/Time: 05/18/23 12:48 Primary Reason for Your Visit: Supraventricular tachycardia Attending Provider: Gil Mcclelland Primary Care Provider: Mita Zaidi Consulting Providers: Markell Humphrey Discharge Orders/Prescriptions Prescriptions: New metoprolol tartrate 25 mg Tablet 25 mg PO BID Qty: 60 0RF pravastatin 20 mg Tablet 20 mg PO QHS Qty: 30 0RF Continued Centrum Silver 1 EACH tablet 1 ea PO DAILY potassium citrate [Urocit-K 10] 10 MEQ tablet extended release 1,080 mg PO DAILY fenofibrate nanocrystallized 145 tablet 145 mg PO DAILY Patient Comments: ezetimibe 10 mg tablet 10 mg PO DAILY PreserVision AREDS-2 250-90-40-1 mg capsule 1 tab PO BID glipizide 5 mg tablet 2.5 mg PO DINNER cholecalciferol (vitamin D3) [D3-2000] 50 mcg (2,000 unit) capsule 50 mcg PO DAILY losartan 100 mg tablet 100 mg PO DAILY aspirin 81 mg Tablet,Delayed Release (Dr/Ec) 81 mg PO DAILYCM 90 Days Qty: 90 0RF levothyroxine 100 mcg tablet 100 mcg PO DAILY Rx Instructions: take in am metformin 1,000 mg tablet 1,000 mg PO BID THERAWORX foam See Rx Instructions .ROUTE .COMPLEX Rx Instructions: APPLY TO MUSCLE CRAMPS NEEDED; clopidogrel 75 mg tablet 75 mg PO DAILY Qty: 90 3RF Discontinued Fish Oil 500 MG capsule,delayed release(DR/EC) 1,000 mg PO BID Referrals / Follow Up: Markell Humphrey MD [Med Staff - Active Staff] - See Referral Note (In 2 weeks, call office for appointment) Mita Zaidi NP-C [Primary Care Provider] - Disposition Disposition (needs filled in before D/C Order can be placed): Home, Self Care Charges/Coding Visit Charges Inpatient E&M: 38879 Subs Hosp L1
--- NOTE | 2023-05-19 09:58 | CASEMGMT ---
BONNIE MELENDREZ Discharge Planning Assessment: Face to Face with patient for initial transition planning/care coordination assessment. BONNIE MELENDREZ introduced self and role at [facility], pt voices understanding. Pt alert, sitting up in chair and agreeable to participating in assessment with spouse at bedside. Care providers, pharmacy, and demographics verified. Admitting dx: SVT LACE Strata:3 PCP: Dejuan Specialists: [facility] Preferred Pharmacy: [facility] Insurance: [facility] A/B, [employer] Prescription Benefit: yes LNOK: spouse Anabelle Living Arrangements: Pt lives with his spouse and states he is independent with ADLs. States pt spouse is able to assist pt as needed. Transportation: Pt states he drives and spouse drives. Denies any concerns with transportation Pt?s goal/plan: Return home with spouse support. Plan: Home w/spouse Delia Harris RN AC
--- NOTE | 2023-05-19 11:33 | PHA.DC.MC.R ---
Pharmacy [facility] has performed discharge medication reconciliation and counseling for this patient. 1. METOPROLOL TARTRATE 25MG PO BID 2. PRAVASTATIN 20MG PO QHS The patient's discharge medication list was reviewed for discrepancies and discrepancies were resolved. The patient was counseled on the following discharge medications and changes in medications for homegoing were reviewed. The Reason for Use, instructions for use, and potential side effects were reviewed for all new medications. The patient's questions regarding all of their medications were answered. The patient was able to verbally demonstrate an understanding of their discharge medications. Patient counseled by dean of student services, Geoffrey. Medications at Discharge Home Medications wdqvgzqa-thf-oneoz acid 0.4 mg-lycopene 300 mcg-lutein 250 mcg tablet (Centrum Silver) 1 ea PO DAILY SUPPLEMENT' 01/08/13 potassium citrate 10 mEq (1,080 mg) tablet,extended release (Urocit-K 10) 1,080 mg PO DAILY SUPPLEMENT 05/24/15 fenofibrate nanocrystallized 145 mg tablet 145 mg PO DAILY CHOLESTEROL 10/19/17 ezetimibe 10 mg tablet 10 mg PO DAILY cholesterol 12/06/22 vit C 250 mg-vit E 90 mg-zinc 40 mg-copper 1 xe-gdmejq-yszsrt capsule (PreserVision AREDS-2) 1 tab PO BID eye health 12/06/22 cholecalciferol (vitamin D3) 50 mcg (2,000 unit) capsule (D3-2000) 50 mcg PO DAILY vitamin 02/11/23 losartan 100 mg tablet 100 mg PO DAILY blood pressure 04/10/23 aspirin 81 mg tablet,delayed [facility] #90 tabs 04/13/23 clopidogrel 75 mg tablet 75 mg PO DAILY anti platelet #90 tabs 04/13/23 glipizide 5 mg tablet 2.5 mg PO DINNER diabetes 04/26/23 THERAWORX See Rx Instructions .Route .COMPLEX 05/18/23 levothyroxine 100 mcg tablet 100 mcg PO DAILY thyroid 05/18/23 metformin 1,000 mg tablet 1,000 mg PO BID DIABETES 05/18/23 metoprolol tartrate 25 mg tablet 25 mg PO BID #60 tabs 05/19/23 pravastatin 20 mg tablet 20 mg PO QHS #30 tabs 05/19/23
== END 2023-05-19 10:50 | disposition home or self-care (01) | DRG 310 ==
LOC: ED 12:28 → PCU 12:51
PROVIDERS: Admitting Provider Internal Medicine; Emergency Provider Emergency Medicine; PCP Nurse Practitioner Family; Visit Provider Internal Medicine
DX: I47.10 Supraventricular tachycardia, unspecified (principal); I44.2 Atrioventricular block, complete; E11.9 Type 2 diabetes mellitus without complications; I10 Essential (primary) hypertension; E03.9 Hypothyroidism, unspecified; I25.10 Atherosclerotic heart disease of native coronary artery without angina pectoris; I25.2 Old myocardial infarction; E78.2 Mixed hyperlipidemia; Z79.82 Long term (current) use of aspirin; Z79.84 Long term (current) use of oral hypoglycemic drugs
CPT/HCPCS: 36415; 71045; 80048; 83735; 84443; 84484; 85025; 85610; 85730; 93005; 93798; 99285; J7030; A4216; J0153

== ENCOUNTER 2023-06-02 08:00 | Outpatient (RCR) | payer MEDICARE, OTHER, SELFPAY ==
[2023-04-23 10:43] VITALS: BMI 25.9
--- NOTE | 2023-05-24 10:27 | PCM.CR.ITP ---
Exercise - Initial Assessment Visit Session #:: 12 Nutrition - Initial Assessment Weight Mgt (Other Care) Height: 5 ft 9.5 in Weight:: 185 lb 8 oz BMI: 27.0 Psychosocial - Initial Assess Target Goals Target Goals Patient Health Questionnaire PHQ-9 Screening 30-Day Re-eval Assessment: 1. Little interest or pleasure in doing things: Several days 2. Feeling down, depressed, or hopeless: Not at all 3. Trouble falling or staying asleep, or sleeping too much: Not at all 4. Feeling tired or having little energy: Several days 5. Poor appetite or overeating: Several days 6. Feeling bad about yourself -- or that you are a failure or have let yourself or your family down: Not at all 7. Trouble concentrating on things, such as reading the newspaper or watching television: Not at all 8. Moving or speaking so slowly that other people could have noticed. Or the opposite - being so fidgety or restless that you have been moving around a lot more than usual: Not at all 9. Thoughts that you would be better off , or of hurting yourself in some way: Not at all How difficult have these problems made it for you to do your work, take care of things at home, or get along with other people?: Not difficult at all Total Score: 3 Nutrition Survey Nutrition Survey Instructions Scoring Instructions Exercise - 30-day Assessment Visit Date of Eval: 05/24/23 Session #:: 12 Physician Prescribed Exercise Modalities: Treadmill, Airdyne and NuStep Frequency: 3x/week for 12 weeks [36 sessions] Intensity: 60-80% of age predicted maximum heart rate reserve Duration: 30 - 45 minutes Current METSs:: 3.1 Target Heart Rate:: 88-109 Current RPE:: 11-14 Maximum Excercise HR:: 89 Resting Blood Pressure: 126/50 Maximum Exercise Blood Pressure: 148/62 EKG Type: NSR/ST first degree AV block with T wave inversion Outcomes & Goals Goals:: Verbalizes understanding of THR, RPE & goal METS by session 6, Documents in home exercise log/reports 30 min aerobic 5 day/wk by DC, Demonstrates accurate pulse taking by DC and Other additional outcome/goals: see below Intervention & Plan Exercise Program Goals: Instruct on personal THR & RPE, Instruct on MET level & personal MET goal, Show patient to take own pulse /validate performance until accurate, Instruct on home exercise and Other additional plan/int 30-day Reassessments 30 day Reassessments:: Progressing Reassessment Notes & Comments:: RPE explained Physical Activity Home Exercise Physical Activity - Home Exercise: Safe Exercise, Warm-up, Self-monitoring, Cool-Down, Home Exercise > 30 min Daily and Sitting Time <3 hours/daily Outcomes & Goals Outcomes/Goals: Demonstrates correct Warm-up/exercise Cool-Down (S3) if = 2.5 METs, Verbalizes symptoms of exercise intolerance by Session 3 (S3), Demonstrate safe equipment use (S3) & follows exercise prescrition (6) and Other: See below Intervention & Plan Plan/Intervention: Instruct warm-up & cool-down if exercising at > 2 METs, Instruct on symptoms of exercise intolerance & actions to take, Instruct & monitor on saf, Assess intial functional capacity & safety risk and Other See below 30-day Reassessments 30 day Reassessments:: Progressing Reassessment Notes & Comments:: warm up encouraged Nutrition - 30-Day Assessment Program Goals Nutrition Program Goals Patient has diagnosis of Hyperlipidemia (ICD E78)?: Yes Visit Date of Eval: 05/24/23 Session #:: 12 Cholesterol/Lipids (Other Core Measures) Determine presence & major risk factors that modify LDL goal: Hypertension or hypertensive medication, Low HDL cholesterol <40 mg/dL*, Family history of premature CHD in Male < 55 years: female <65 yearsFa and Age men > 45 years; women >/= 55 years Outcomes/Goals: Pt IDs own risk factors & lifestyle modifications by Session 10, Verbalizes symptoms of angina & response by session 3., Pt independently manages and Other Additional Outcomes/Goals: Intervention/Plan: Advocate for lipid panel cholesterol medication if applicable, Instruct on personal lipid levels & lipid goals/NCEP guidelines, Instruct on cholesterol and Other additional plan/int Referral to dietitian:: No 30-day Reassessments:: Progressing Reassessment Notes & Comments:: pt to attend nutrition class Diabetes (Other Core Measures) Diabetes Type: Diagnosis Type II ICD-10 E11 Insulin dependent injection/pump?: No Non-Insulin Dependent?: Yes Do you monitor your blood sugar at home?: Yes Referral to Diabetic Clinic:: No Outcomes/Goals:: Able to state symptoms of, Able to state, Able to state and Other additional Intervention/Plan:: Instruct on, Refer to, Instruct on and Other 30-day Reassessments:: Met Weight Mgt (Other Care) Height: 5 ft 9.5 in Weight:: 185 lb 8 oz BMI: 27.0 Diagnosis Overweight/Obesity BMI> 30% ICD-10 E66: No Diagnosis High BMI/Morbid Obesity BMI> 35% ICD-10 Z68: No Outcomes/Goals: Pt sets, maintains & shows weight loss goal & trend during rehab and Other additional outcomes/goals Intervention/Plan: Instruct on ideal BMI & set weight loss goal w/patient, Assist pt to ID & incorporate diet changes for weight loss by S9, Refer to Structured Weight Loss program as appropriate, Encourage goal of using 250-300dcal per session for weight loss and Other additional plan/interventions 30 day Reassessments:: Progressing Reassessment Notes & Comments:: pt to attend nutrition class Healthy Eating Habits Will attend diet classes:: Yes Outcomes/Goals:: Consume diet rich in vegs,fruits,whole grain/high fiber,fish,lean meat, Limit sat/trans fats,cholesterol & added salts & sugars and Other additional outcome/goals: Intervention/Plan:: Assess current eating habits and Other Additional plan/interventions 30-day Reassessments:: Progressing Reassessment Notes & Comments:: pt to attend nutrition class Education Gave educational materials for:: Signs & symptoms of hypoglycemia, Signs & symptoms of hyperglycemia, Relate diabetes to coronary artery disease and Healthy eating Nutrition - 60-Day Assessment Weight Mgt (Other Care) Height: 5 ft 9.5 in Weight:: 185 lb 8 oz BMI: 27.0 Core - 30-Day Assessment Visit Date of Eval: 05/24/23 Session #:: 12 Medication Compliance Preventative Medication(s):: Aspirin, Clopidogrel/P2Y12 inhibit and ARB (Angiotensi Rcap) H/O mental health issues: depression, anxiety, or addiction?: No Doesn?t believe in the benefits of treatment?: No Believes medications are unnecessary or harmful?: No Has a concern about medication side effects?: No Expresses concern over the cost of medications?: No Outcomes/Goals: Verbalizes medications,desired effect & common side effects @ DC, Pt self-reports following medication regimen, Keeps card in wallet w/medications listed by DC and Other additional outcome/goals: Interventions/plans: Instruct on medication effects & side effects, Review medication list w/patient every two weeks, Instruct importance of taking meds as ordered & assist problem solving and Other additional 30-day Reassessments:: Progressing Reassessment Notes & Comments:: Pt started on lopressor 25 mg BID Tobacco Use Tobacco Use: Non-smoker Hypertension Hypertension Diagnosis:: Hypertension ICD-10 I10 Resting Blood Pressure:: 126/50 [place] [employer] Hypertension Guidelines Peak Exercise Blood Pressure:: 148/62 Outcomes/Goals: Able to verbalize/achieve optimal blood pressure <130/80, Incorporates diet changes & exercise for blood pressure control by DC and Other additional outcomes/goals Interventions/plan: Instruct on optimal blood pressure, hypertension & medications, Instruct on effects of sodium, alcohol, stress, exercise &hypertension and Other additional plan/interventions 30 day Reassessments:: Progressing Reassessment Notes & Comments:: Pt started on lopressor 25 mg BID Tobacco Cessation Referral Smoking Cessation Referral:: No Individual Education/Counseling:: No Education Schedule Given:: Yes Psychosocial - 30-Day Assess VIsit Date of Eval: 05/24/23 Session #:: 12 History of previous Mental disease:: No Target Goals Target Goals Outcomes/Goals: See list Psychosocial Outcomes/Goals:: ID's personal stressors & 2 strategies to manage stress by discharge and Other Additional outcome/goals: Intervention/Plan: See List Interventions/Plan:: Assess stressors,coping strategies & signs of derpression on admission, Instruct/assist pt to develop coping & personal stress Mgt strategies, Refer to Behavioral Health if appropriate, Refer to Physician if appropriate, Instruct patient to recognize signs & symptoms of depression, Instruct patient to recog and Other additional plan/intervention 30-day Reassessments: 30 day Reassessments:: Met Psychosocial - 60-Day Assess Target Goals Target Goals Outcomes/Goals: See list Psychosocial Outcomes/Goals:: ID's personal stressors & 2 strategies to manage stress by discharge and Other Additional outcome/goals: Psychosocial - 90-Day Assess Target Goals Target Goals Psychosocial - Final Assessmen Target Goals Target Goals Nutrition - 90-Day Assessment Weight Mgt (Other Care) Height: 5 ft 9.5 in Weight:: 185 lb 8 oz BMI: 27.0 Nutrition - Final Assessment Weight Mgt (Other Care) Height: 5 ft 9.5 in Weight:: 185 lb 8 oz BMI: 27.0
[2023-05-24 10:32] VITALS: BP 126/50
[2023-05-24 10:39] VITALS: BP 126/50; BMI 27.0
== END 2023-06-03 23:59 ==
LOC: CR 08:00
PROVIDERS: PCP Nurse Practitioner Family; Referring Provider Internal Medicine Cardiovascular Disease; Visit Provider Internal Medicine Cardiovascular Disease
DX: I21.11 ST elevation (STEMI) myocardial infarction involving right coronary artery (principal); Z95.5 Presence of coronary angioplasty implant and graft; I25.10 Atherosclerotic heart disease of native coronary artery without angina pectoris
CPT/HCPCS: 93798

== ENCOUNTER → 2023-06-18 | Outpatient (CLI) | payer MEDICARE, OTHER, SELFPAY ==
[2023-05-24 10:39] VITALS: BMI 27.0
[2023-06-18 07:44] LABS: Absolute Lymphocyte Count 1.34 X10^3/uL (0.83-4.51); Absolute Neutrophil Count 3.4 X10^3/uL (2.0-7.7); Basophil# 0.08 X10^3/uL; Basophil% 1.3 % (0-1); Eosinophil# 0.47 X10^3/uL; Eosinophils% 7.9 % (0-5); Hematocrit 35.9 % (40-54); Hemoglobin 11.7 g/dL (13.0-16.5); Lymphocyte # 1.34 X10^3/ul (0.83-4.51); Lymphocyte % 22.5 % (19-41); Mean Corp Hgb Conc 32.6 g/dL (32-36); Mean Corpuscular Hgb 28.7 pg (27.0-32.0); Mean Corpuscular Volume 88.2 fL (80-94); Mean Platelet Vol. 10.6 fl (6.2-12.0); Monocyte# 0.61 X10^3/uL; Monocyte% 10.2 % (0-10); NRBC Flagged by Analyzer 0 % (0-5); Neutrophil # 3.44 X10^3/uL (2.7-7.7); Neutrophil % 57.8 % (47-70); Platelet Count 249 K/mm3 (150-450); RBC Distribution Width CV 13.6 % (11.6-14.6); RBC Distribution Width SD 43.9 fl (35.1-43.9); Red Blood Count 4.07 M/mm3 (4.6-6.2)
[2023-06-18 08:20] LABS: ALB/GLOB Ratio 1.1 RATIO (0.9-2.4); AST(SGOT) 17 U/L (15-37); Alanine Aminotransfer ALT/SGPT 20 U/L (16-61); Albumin, Serum 4.1 g/dL (3.2-5.0); Alkaline Phosphatase 50 U/L (45-117); Anion Gap 6 (5-15); BUN 40 mg/dL (7-18); BUN/Creat Ratio 26.3 RATIO (10-20); CPK Total, Creatine Kinase 90 U/L (39-308); Calcium,Total 9.2 mg/dL (8.5-10.1); Chloride 110 mmol/L (98-107); Cholesterol 169 mg/dL (200); Creatinine, Serum 1.52 mg/dL (0.70-1.30); EST Glomerular Filtration Rate 48 mL/min (>60); Est Glom Filt Rate - Afr Amer 58 mL/min (>60); Globulin 3.6 g/dL (2.2-4.2); Glucose 109 mg/dL (74-106); High Density Lipoprotein 29 mg/dL; Protein, Total 7.7 g/dL (6.4-8.2); Sodium Level 142 mmol/L (136-145); Triglycerides 213 mg/dL; Very Low Density Lipoprotein 43 mg/dL (5-40)
[2023-06-18 08:21] LABS: Hemoglobin A1c 5.9 % (3.8-5.6)
[2023-06-18 08:23] LABS: Vitamin D,25 Hydroxy 42.6 ng/mL
[2023-06-18 10:16] LABS: Microalbumin,Random Urine 90.3 mg/L (NO RANGE EST.); Microalbumin:Creatinine Ratio 109.2 mg/g CRE (<30 mg/g CRE)
== END | disposition home or self-care (01) ==
LOC: LAB 06:57
PROVIDERS: PCP Nurse Practitioner Family; Referring Provider Internal Medicine Endocrinology, Diabetes & Metabolism; Visit Provider Internal Medicine Endocrinology, Diabetes & Metabolism
DX: E78.2 Mixed hyperlipidemia (principal); E11.42 Type 2 diabetes mellitus with diabetic polyneuropathy; E55.9 Vitamin D deficiency, unspecified; Z79.84 Long term (current) use of oral hypoglycemic drugs; I10 Essential (primary) hypertension
CPT/HCPCS: 36415; 80053; 80061; 82043; 82306; 82550; 82570; 83036; 85025

== ENCOUNTER → 2023-06-24 | Outpatient (CLI) | payer MEDICARE, OTHER, SELFPAY ==
[2023-06-21 09:19] VITALS: BMI 27.0
[2023-06-24 15:34] LABS: Absolute Lymphocyte Count 1.11 X10^3/uL (0.83-4.51); Absolute Neutrophil Count 5.5 X10^3/uL (2.0-7.7); Basophil# 0.08 X10^3/uL; Eosinophil# 0.34 X10^3/uL; Eosinophils% 4.4 % (0-5); Hematocrit 35.7 % (40-54); Hemoglobin 11.7 g/dL (13.0-16.5); Lymphocyte # 1.11 X10^3/ul (0.83-4.51); Lymphocyte % 14.4 % (19-41); Mean Corp Hgb Conc 32.8 g/dL (32-36); Mean Corpuscular Volume 88.4 fL (80-94); Mean Platelet Vol. 10.6 fl (6.2-12.0); Monocyte# 0.65 X10^3/uL; Monocyte% 8.4 % (0-10); NRBC Flagged by Analyzer 0 % (0-5); Neutrophil # 5.53 X10^3/uL (2.7-7.7); Neutrophil % 71.7 % (47-70); Platelet Count 243 K/mm3 (150-450); RBC Distribution Width CV 13.9 % (11.6-14.6); RBC Distribution Width SD 45.1 fl (35.1-43.9); Red Blood Count 4.04 M/mm3 (4.6-6.2); White Blood Count 7.7 K/mm3 (4.4-11.0)
[2023-06-24 15:54] LABS: Iron 70 ug/dL (65-175)
[2023-06-24 15:59] LABS: Vitamin B12 1019 pg/mL (211-911)
== END | disposition home or self-care (01) ==
LOC: LAB 14:48
PROVIDERS: PCP Nurse Practitioner Family; Referring Provider Internal Medicine Endocrinology, Diabetes & Metabolism; Visit Provider Internal Medicine Endocrinology, Diabetes & Metabolism
DX: D50.9 Iron deficiency anemia, unspecified (principal); D51.3 Other dietary vitamin B12 deficiency anemia
CPT/HCPCS: 36415; 82607; 83540; 85025

== ENCOUNTER 2023-07-02 08:00 | Outpatient (RCR) | payer MEDICARE, OTHER, SELFPAY ==
[2023-05-24 10:39] VITALS: BMI 27.0
[2023-06-04 00:19] VITALS: BP 126/50
--- NOTE | 2023-06-21 09:12 | CR.ITP_ITS ---
Nutrition - Initial Assessment Weight Mgt (Other Care) Height: 5 ft 9.5 in Weight:: 185 lb 8 oz BMI: 27.0 Psychosocial - Initial Assess Target Goals Target Goals Patient Health Questionnaire PHQ-9 Screening 60-Day Re-eval Assessment: 1. Little interest or pleasure in doing things: Several days 2. Feeling down, depressed, or hopeless: Not at all 3. Trouble falling or staying asleep, or sleeping too much: Not at all 4. Feeling tired or having little energy: Several days 5. Poor appetite or overeating: Several days 6. Feeling bad about yourself -- or that you are a failure or have let yourself or your family down: Not at all 7. Trouble concentrating on things, such as reading the newspaper or watching television: Not at all 8. Moving or speaking so slowly that other people could have noticed. Or the opposite - being so fidgety or restless that you have been moving around a lot more than usual: Not at all 9. Thoughts that you would be better off , or of hurting yourself in some way: Not at all How difficult have these problems made it for you to do your work, take care of things at home, or get along with other people?: Not difficult at all Total Score: 3 Nutrition Survey Nutrition Survey Instructions Scoring Instructions Exercise - 60-day Assessment Visit Date of Eval: 06/21/23 Session #:: 24 Physician Prescribed Exercise Modalities: Treadmill, Airdyne and NuStep Frequency: 3x/week for 12 weeks [36 sessions] Intensity: 60-80% of age predicted maximum heart rate reserve Duration: 30 - 45 minutes Current METSs:: 3.7 Target Heart Rate:: 88-109 Current RPE:: 11 Maximum Excercise HR:: 101 Resting Blood Pressure: 128/64 Maximum Exercise Blood Pressure: 142/64 EKG Type: STARR to ST first degree AV block t wave inversion and occas pvc Outcomes & Goals Goals:: Verbalizes understanding of THR, RPE & goal METS by session 6, Documents in home exercise log/reports 30 min aerobic 5 day/wk by DC, Demonstrates accurate pulse taking by DC and Other additional outcome/goals: see below Intervention & Plan Exercise Program Goals: Instruct on personal THR & RPE, Instruct on MET level & personal MET goal, Show patient to take own pulse /validate performance until accurate, Instruct on home exercise and Other additional plan/int 30-day Reassessments 30 day Reassessments:: Met Physical Activity Home Exercise Physical Activity - Home Exercise: Safe Exercise, Warm-up, Self-monitoring, Cool-Down, Home Exercise > 30 min Daily and Sitting Time <3 hours/daily Outcomes & Goals Outcomes/Goals: Demonstrates correct Warm-up/exercise Cool-Down (S3) if = 2.5 METs, Verbalizes symptoms of exercise intolerance by Session 3 (S3), Demonstrate safe equipment use (S3) & follows exercise prescrition (6) and Other: See below Intervention & Plan Plan/Intervention: Instruct warm-up & cool-down if exercising at > 2 METs, Instruct on symptoms of exercise intolerance & actions to take, Instruct & monitor on saf, Assess intial functional capacity & safety risk and Other See below 30-day Reassessments 30 day Reassessments:: Met Nutrition - 30-Day Assessment Weight Mgt (Other Care) Height: 5 ft 9.5 in Weight:: 185 lb 8 oz BMI: 27.0 Nutrition - 60-Day Assessment Program Goals Nutrition Program Goals Patient has diagnosis of Hyperlipidemia (ICD E78)?: Yes Visit Date of Eval: 06/21/23 Session #:: 24 Cholesterol/Lipids (Other Core Measures) Determine presence & major risk factors that modify LDL goal: Hypertension or hypertensive medication, Low HDL cholesterol <40 mg/dL*, Family history of premature CHD in Male < 55 years: female <65 yearsFa and Age men > 45 years; women >/= 55 years Outcomes/Goals: Pt IDs own risk factors & lifestyle modifications by Session 10, Verbalizes symptoms of angina & response by session 3., Pt independently manages and Other Additional Outcomes/Goals: Intervention/Plan: Advocate for lipid panel cholesterol medication if applicable, Instruct on personal lipid levels & lipid goals/NCEP guidelines, Instruct on cholesterol and Other additional plan/int 30-day Reassessments:: Met Diabetes (Other Core Measures) Diabetes Type: Diagnosis Type II ICD-10 E11 Insulin dependent injection/pump?: No Non-Insulin Dependent?: Yes Do you monitor your blood sugar at home?: Yes Referral to Diabetic Clinic:: No Outcomes/Goals:: Able to state symptoms of, Able to state, Able to state and Other additional Intervention/Plan:: Instruct on, Refer to, Instruct on and Other 30-day Reassessments:: Met Weight Mgt (Other Care) Height: 5 ft 9.5 in Weight:: 185 lb 8 oz BMI: 27.0 Diagnosis Overweight/Obesity BMI> 30% ICD-10 E66: No Diagnosis High BMI/Morbid Obesity BMI> 35% ICD-10 Z68: No Outcomes/Goals: Pt sets, maintains & shows weight loss goal & trend during rehab and Other additional outcomes/goals Intervention/Plan: Instruct on ideal BMI & set weight loss goal w/patient, Assist pt to ID & incorporate diet changes for weight loss by S9, Refer to Structured Weight Loss program as appropriate, Encourage goal of using 250- 300dcal per session for weight loss and Other additional plan/interventions Healthy Eating Habits Will attend diet classes:: Yes Outcomes/Goals:: Consume diet rich in vegs,fruits,whole grain/high fiber,fish,lean meat, Limit sat/trans fats,cholesterol & added salts & sugars and Other additional outcome/goals: 30-day Reassessments:: Met Education Gave educational materials for:: Signs & symptoms of hypoglycemia, Signs & symptoms of hyperglycemia, Relate diabetes to coronary artery disease and Healthy eating Core - 60-Day Assessment Visit Date of Eval: 06/21/23 Session #:: 24 Medication Compliance Preventative Medication(s):: Aspirin, Clopidogrel/P2Y12 inhibit and Beta gian H/O mental health issues: depression, anxiety, or addiction?: No Doesn?t believe in the benefits of treatment?: No Believes medications are unnecessary or harmful?: No Has a concern about medication side effects?: No Expresses concern over the cost of medications?: No Outcomes/Goals: Verbalizes medications,desired effect & common side effects @ DC, Pt self-reports following medication regimen, Keeps card in wallet w/medications listed by DC and Other additional outcome/goals: Interventions/plans: Instruct on medication effects & side effects, Review medication list w/patient every two weeks, Instruct importance of taking meds as ordered & assist problem solving and Other additional 30-day Reassessments:: Met Tobacco Use Tobacco Use: Non-smoker Hypertension Hypertension Diagnosis:: Hypertension ICD-10 I10 Resting Blood Pressure:: 128/64 [place] [employer] Hypertension Guidelines Peak Exercise Blood Pressure:: 142/64 Outcomes/Goals: Able to verbalize/achieve optimal blood pressure <130/80, Incorporates diet changes & exercise for blood pressure control by DC and Other additional outcomes/goals Interventions/plan: Instruct on optimal blood pressure, hypertension & medications, Instruct on effects of sodium, alcohol, stress, exercise &hypertension and Other additional plan/interventions 30 day Reassessments:: Met Tobacco Cessation Referral Smoking Cessation Referral:: No Individual Education/Counseling:: No Education Schedule Given:: Yes Psychosocial - 30-Day Assess Target Goals Target Goals Outcomes/Goals: See list Psychosocial Outcomes/Goals:: ID's personal stressors & 2 strategies to manage stress by discharge and Other Additional outcome/goals: Psychosocial - 60-Day Assess VIsit Date of Eval: 06/21/23 Session #:: 24 History of previous Mental disease:: No Target Goals Target Goals Outcomes/Goals: See list Psychosocial Outcomes/Goals:: ID's personal stressors & 2 strategies to manage stress by discharge and Other Additional outcome/goals: Intervention/Plan: See List Interventions/Plan:: Assess stressors,coping strategies & signs of derpression on admission, Instruct/assist pt to develop coping & personal stress Mgt strategies, Refer to Behavioral Health if appropriate, Refer to Physician if appropriate, Instruct patient to recognize signs & symptoms of depression, Instruct patient to recog and Other additional plan/intervention 30-day Reassessments: 30 day Reassessments:: Met Psychosocial - 90-Day Assess Target Goals Target Goals Psychosocial - Final Assessmen Target Goals Target Goals Nutrition - 90-Day Assessment Weight Mgt (Other Care) Height: 5 ft 9.5 in Weight:: 185 lb 8 oz BMI: 27.0 Nutrition - Final Assessment Weight Mgt (Other Care) Height: 5 ft 9.5 in Weight:: 185 lb 8 oz BMI: 27.0
[2023-06-21 09:19] VITALS: BP 128/64; BMI 27.0
== END 2023-07-04 23:59 ==
LOC: CR 08:00
PROVIDERS: PCP Nurse Practitioner Family; Referring Provider Internal Medicine Cardiovascular Disease; Visit Provider Internal Medicine Cardiovascular Disease
DX: I21.11 ST elevation (STEMI) myocardial infarction involving right coronary artery (principal); Z95.5 Presence of coronary angioplasty implant and graft; I25.10 Atherosclerotic heart disease of native coronary artery without angina pectoris
CPT/HCPCS: 93798

== ENCOUNTER → 2023-07-20 | Outpatient (CLI) | payer MEDICARE, OTHER, SELFPAY ==
[2023-06-21 09:19] VITALS: BMI 27.0
--- NOTE | 2023-07-20 07:09 | CT_ITS ---
STUDY: CT SOFT TISSUE NECK WITH CONTRAST REASON FOR EXAM: Male, 73 years old. 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 High resolution transaxial imaging was performed following intravenous administration of IV 75mL Isovue-370. Sagittal and coronal images were reconstructed. Individualized dose optimization techniques were used for this CT. COMPARISON: None. FINDINGS: Normal bilateral parotid glands. Normal bilateral stacker tender spaces. Normal bilateral parapharyngeal spaces. High-grade stenosis at the origin of the right internal carotid artery. Moderate stenosis at the origin of left internal carotid artery. Normal bilateral sublingual and submandibular glands and spaces. Normal visualized nasopharynx. Normal retropharyngeal space. Normal perivertebral space. Normal visualized bilateral faucial tonsils. The visualized tongue, tongue base and oropharynx are normal. There are minimally enlarged lymph nodes of the neck, with preservation of normal crystal architecture, consistent with a reactive lymph hyperplasia. There is no demonstrated solid or cystic mass lesion. There is no abnormal contrast enhancement. Normal epiglottis, bilateral vallecula and hypopharynx. The pre-epiglottic and paraglottic adipose spaces are normal. Normal visualized bilateral piriform sinuses, aryepiglottic folds, vocal cords, and arytenoid-cricoid articulations. Normal subglottic trachea. Normal bilateral lobes of the thyroid gland. Normal visualized pulmonary apices. Normal visualized paranasal sinuses. There is multilevel degenerative changes of the cervical spine. Loss of the normal cervical lordosis. CT/Soft Tissue Neck WITH Contrast IMPRESSION: Carotid stenosis bilaterally more prominent on the right side. Small submental lymph nodes are seen. Electronically Signed: Bharath Steen MD at 9:48 EDT ,
[2023-07-20 07:48] LABS: CREATININE FINGERSTICK 1.5 mg/dL (0.70-1.30)
== END | disposition home or self-care (01) ==
LOC: CT 07:08
PROVIDERS: PCP Nurse Practitioner Family; Referring Provider Otolaryngology; Visit Provider Otolaryngology
DX: R13.13 Dysphagia, pharyngeal phase (principal); D10.5 Benign neoplasm of other parts of oropharynx
CPT/HCPCS: 70491; Q9967; A4216

== ENCOUNTER 2023-07-21 08:00 | Outpatient (RCR) | payer MEDICARE, OTHER, SELFPAY ==
[2023-06-21 09:19] VITALS: BMI 27.0
[2023-07-05 00:40] VITALS: BP 126/50; BP 128/64
== END 2023-08-03 23:59 ==
LOC: CR 08:00
PROVIDERS: PCP Nurse Practitioner Family; Referring Provider Internal Medicine Cardiovascular Disease; Visit Provider Internal Medicine Cardiovascular Disease
DX: I21.11 ST elevation (STEMI) myocardial infarction involving right coronary artery (principal); Z95.5 Presence of coronary angioplasty implant and graft; I25.10 Atherosclerotic heart disease of native coronary artery without angina pectoris
CPT/HCPCS: 93798

== ENCOUNTER → 2023-08-02 | Outpatient (CLI) | payer MEDICARE, OTHER, SELFPAY ==
[2023-06-21 09:19] VITALS: BMI 27.0
--- NOTE | 2023-08-02 08:42 | RAD_ITS ---
STUDY: X-RAY - ESOPHAGUS (BARIUM SWALLOW) WITH FLUOROSCOPY REASON FOR EXAM: Male, 73 years old. DYSPHAGIA TECHNIQUE: 24 view(s) of the esophagus were obtained following swallowing of barium. FLUOROSCOPY TIME (if supplied): (32 seconds) minutes/seconds COMPARISON: None. FINDINGS: There is no demonstrated esophageal foreign body. There is no demonstrated stricture or mucosal abnormality. Normal gastroesophageal junction, without a demonstrated hiatal hernia. The patient ingested a 12 mm tablet of barium without any difficulty. There is atherosclerotic calcification of the aortic arch with tortuosity of the descending aorta. Normal visualized pulmonary parenchyma. There are degenerative changes of the visualized thoracic spine. RAD/Esophagus Dual Contrast IMPRESSION: Normal plain film x-ray examination (barium swallow) of the esophagus. Electronically Signed: Bharath Steen MD at 12:43 EDT ,
== END | disposition home or self-care (01) ==
LOC: RAD 08:40
PROVIDERS: PCP Nurse Practitioner Family; Referring Provider Otolaryngology; Visit Provider Otolaryngology
DX: R13.13 Dysphagia, pharyngeal phase (principal)
CPT/HCPCS: 74221

== ENCOUNTER → 2023-08-21 | Outpatient (CLI) | payer MEDICARE, OTHER, SELFPAY ==
[2023-08-12 10:42] VITALS: BMI 27.0
--- NOTE | 2023-08-21 07:33 | MRI_ITS ---
STUDY: MRI CERVICAL SPINE WITHOUT CONTRAST REASON FOR EXAM: Male, 73 years old. dysphagia, NECK CRAMPING WHEN FOOD GETS STUCK TECHNIQUE: Standardized fat and water weighted pulse sequences were obtained in the sagittal and axial planes. COMPARISON: X-ray 08/12/2023 FINDINGS: Normal foramen magnum and brainstem-cervical cord junction. Normal craniovertebral junction. Normal anterior atlantoaxial articulation. Normal odontoid process. There is straightening of the normal cervical lordosis. Normal vertebral bodies and posterior osseous elements. C2-3: Normal endplates. Normal disc height, signal and morphology. Normal central canal and intervertebral neural foramina. C3-4: Left uncovertebral hypertrophy produces mild left neural foraminal stenosis. No central spinal stenosis. C4-5: Moderate broad disc osteophyte complex asymmetric left produces moderate spinal stenosis with abutment of the left hemicord and mild left neural foraminal stenosis. C5-6: Moderate broad disc osteophyte complex produces moderate spinal stenosis with abutment of the central spinal cord and mild bilateral neural foraminal stenosis. C6-7: 2 mm retrolisthesis of C6 on C7 with a moderate broad disc osteophyte complex produces severe spinal stenosis with effacement of the right hemicord and moderate right neural foraminal stenosis. C7-T1: Normal endplates. Normal disc height, signal and morphology. Normal central canal and intervertebral neural foramina. Normal cervical cord. Normal visualized soft tissue structures. MRI/Spine Cervical (Routine) IMPRESSION: Multilevel degenerative changes, as described above. Electronically Signed: Charles Kelly MD at 1:04 EDT ,
== END | disposition home or self-care (01) ==
LOC: MRI 07:05
PROVIDERS: PCP Nurse Practitioner Family; Referring Provider Orthopaedic Surgery; Visit Provider Orthopaedic Surgery
DX: R13.10 Dysphagia, unspecified (principal); M50.30 Other cervical disc degeneration, unspecified cervical region
CPT/HCPCS: 72141

== ENCOUNTER → 2023-10-28 | Outpatient (CLI) | payer MEDICARE, OTHER, SELFPAY ==
[2023-08-12 10:42] VITALS: BMI 27.0
[2023-10-28 09:20] LABS: ALB/GLOB Ratio 1.1 RATIO (0.9-2.4); AST(SGOT) 14 U/L (15-37); Alanine Aminotransfer ALT/SGPT 21 U/L (16-61); Albumin, Serum 3.7 g/dL (3.2-5.0); Alkaline Phosphatase 48 U/L (45-117); Anion Gap 6 (5-15); BUN 31 mg/dL (7-18); BUN/Creat Ratio 21.4 RATIO (10-20); CPK Total, Creatine Kinase 85 U/L (39-308); Calcium,Total 8.5 mg/dL (8.5-10.1); Chloride 111 mmol/L (98-107); Cholesterol 139 mg/dL (200); Creatinine, Serum 1.45 mg/dL (0.70-1.30); EST Glomerular Filtration Rate 51 mL/min (>60); Est Glom Filt Rate - Afr Amer 61 mL/min (>60); Globulin 3.5 g/dL (2.2-4.2); Glucose 106 mg/dL (74-106); High Density Lipoprotein 29 mg/dL; Protein, Total 7.2 g/dL (6.4-8.2); Sodium Level 141 mmol/L (136-145); Thyroid Stim Hormone (TSH) 4.34 uIU/mL (0.358-3.74); Triglycerides 202 mg/dL; Very Low Density Lipoprotein 40 mg/dL (5-40)
[2023-10-28 09:24] LABS: Hemoglobin A1c 5.9 % (3.8-5.6)
== END | disposition home or self-care (01) ==
LOC: LAB 07:18
PROVIDERS: PCP Nurse Practitioner Family; Visit Provider Internal Medicine Endocrinology, Diabetes & Metabolism
DX: E78.2 Mixed hyperlipidemia (principal); E03.8 Other specified hypothyroidism; Z79.84 Long term (current) use of oral hypoglycemic drugs
CPT/HCPCS: 36415; 80053; 80061; 82550; 83036; 84443

== ENCOUNTER → 2023-11-25 | Outpatient (CLI) | payer MEDICARE, OTHER, SELFPAY ==
[2023-08-12 10:42] VITALS: BMI 27.0
[2023-11-25 09:51] LABS: Hemoglobin A1c 5.8 % (3.8-5.6)
[2023-11-25 16:08] LABS: ALB/GLOB Ratio 1.1 RATIO (0.9-2.4); AST(SGOT) 14 U/L (15-37); Alanine Aminotransfer ALT/SGPT 22 U/L (16-61); Albumin, Serum 3.8 g/dL (3.2-5.0); Alkaline Phosphatase 59 U/L (45-117); Anion Gap 11 (5-15); BUN 32 mg/dL (7-18); BUN/Creat Ratio 21.5 RATIO (10-20); Calcium,Total 8.9 mg/dL (8.5-10.1); Chloride 105 mmol/L (98-107); Creatinine, Serum 1.49 mg/dL (0.70-1.30); EST Glomerular Filtration Rate 49 mL/min (>60); Est Glom Filt Rate - Afr Amer 59 mL/min (>60); Globulin 3.5 g/dL (2.2-4.2); Glucose 194 mg/dL (74-106); PSA,Total- Diagnostic < 0.01 ng/mL (0.0-4.0); Potassium 4.6 mmol/L (3.5-5.1); Protein, Total 7.3 g/dL (6.4-8.2); Sodium Level 140 mmol/L (136-145)
== END | disposition home or self-care (01) ==
PROVIDERS: PCP Nurse Practitioner Family; Referring Provider Internal Medicine Endocrinology, Diabetes & Metabolism; Visit Provider Internal Medicine Endocrinology, Diabetes & Metabolism
DX: C61 Malignant neoplasm of prostate (principal); E11.21 Type 2 diabetes mellitus with diabetic nephropathy; E03.8 Other specified hypothyroidism
CPT/HCPCS: 36415; 80053; 83036; 84153; 84443

== ENCOUNTER → 2023-12-30 | Outpatient (CLI) | payer MEDICARE, OTHER, SELFPAY ==
[2023-08-12 10:42] VITALS: BMI 27.0
== END | disposition home or self-care (01) ==
LOC: LABSPEC 15:26
PROVIDERS: PCP Nurse Practitioner Family; Referring Provider Urology; Visit Provider Urology
DX: N30.00 Acute cystitis without hematuria (principal)
CPT/HCPCS: 87086; 87088; 87186

== ENCOUNTER → 2023-12-31 | Outpatient (CLI) | payer MEDICARE, OTHER, SELFPAY ==
[2023-08-12 10:42] VITALS: BMI 27.0
[2023-12-31 14:01] LABS: ALB/GLOB Ratio 1.1 RATIO (0.9-2.4); AST(SGOT) 11 U/L (15-37); Alanine Aminotransfer ALT/SGPT 22 U/L (16-61); Albumin, Serum 3.9 g/dL (3.2-5.0); Alkaline Phosphatase 57 U/L (45-117); Anion Gap 6 (5-15); BUN 27 mg/dL (7-18); BUN/Creat Ratio 17.5 RATIO (10-20); Calcium,Total 9.6 mg/dL (8.5-10.1); Chloride 108 mmol/L (98-107); Creatinine, Serum 1.54 mg/dL (0.70-1.30); EST Glomerular Filtration Rate 47 mL/min (>60); Est Glom Filt Rate - Afr Amer 57 mL/min (>60); Globulin 3.5 g/dL (2.2-4.2); Glucose 116 mg/dL (74-106); Potassium 4.4 mmol/L (3.5-5.1); Protein, Total 7.4 g/dL (6.4-8.2); Sodium Level 139 mmol/L (136-145)
[2023-12-31 14:56] LABS: Hemoglobin A1c 6.2 % (3.8-5.6)
== END | disposition home or self-care (01) ==
LOC: LAB 12:16
PROVIDERS: PCP Nurse Practitioner Family; Referring Provider Internal Medicine Endocrinology, Diabetes & Metabolism; Visit Provider Internal Medicine Endocrinology, Diabetes & Metabolism
DX: E11.21 Type 2 diabetes mellitus with diabetic nephropathy (principal); E03.8 Other specified hypothyroidism
CPT/HCPCS: 36415; 80053; 83036; 84443

== ENCOUNTER 2024-02-04 14:46 | Emergency (ER) | payer MEDICARE, OTHER, SELFPAY ==
[2023-08-12 10:42] VITALS: BMI 27.0
[2024-02-04 14:47] VITALS: BP 172/80; PULSE 79; RESP 18; TEMP 36.1; O2SAT 98; BMI 27.1
--- NOTE | 2024-02-04 14:50 | RAD_ITS ---
STUDY: X-RAY - LEFT KNEE REASON FOR EXAM: Male, 73 years old. Fall. Multiple abrasions. TECHNIQUE: view(s) of the knee. COMPARISON: None. FINDINGS: Normal visualized distal femur. Normal visualized proximal tibia and fibula. Prominence of the anterior tibial tuberosity. Normal proximal tibiofibular articulation. Normal medial femorotibial compartment. Normal lateral femorotibial compartment. Normal patellofemoral articulation. Pretibial soft tissue swelling RAD/Knee 4 or More Views IMPRESSION: Pretibial soft tissue swelling. No fracture is seen. Electronically Signed: Bharath Steen MD at 15:06 EDT ,
[2024-02-04 18:46] VITALS: BP 170/73; PULSE 88; RESP 16; O2SAT 99
[2024-02-04 19:16] LABS: Bedside Glucose 112 mg/dL (74-106)
[2024-02-04 19:47] VITALS: BP 126/89; PULSE 69; RESP 18; TEMP 36.6; O2SAT 99
[2024-02-04] MEDS: Diphth,Pertuss(Acell),Tet Vac 0.5 ML Vial IM (19:52)
--- NOTE | 2024-02-04 19:57 | EDS_ITS ---
HPI HPI - Fall History of Present Illness Chief Complaint: Fall Informant: patient and spouse/S.O. Narrative Narrative: 73-year-old male on Plavix presenting to the emergency room with fall. Patient's dog was pulling him when some other dogs came up to say hi. He fell down to the ground causing skin avulsion to the left medial palm skin abrasion to the medial left elbow and knee swelling/hematoma and skin tear to the left anterior knee. He states that is still bleeding and he wonders if he needs stitches. Unknown last tetanus. He put some liquid skin on the palm laceration and after it started burning did not want a put it on his knee. He states he is feeling Nicola. Tetanus Immunization: Unknown [facility] Medical History SVT (supraventricular tachycardia) Supraventricular tachycardia Transient complete heart block Loss of hearing Wears glasses Cancer History of renal disease High cholesterol Dietary restriction Difficulty swallowing Non-smoker Neuropathy BPH (benign prostatic hyperplasia) Cholecystitis Hypothyroid Diabetes mellitus Leg cramping Sleep apnea treated with continuous positive airway pressure (CPAP) Hypertension Home Medications ?Medication ?Instructions ?Recorded ?Last Taken ?Type bjqdounq-dtb-bbehe acid 0.4 1 ea PO DAILY SUPPLEMENT' 01/08/13 05/18/23 History mg-lycopene 300 mcg-lutein 250 mcg tablet (Centrum Silver) potassium citrate 10 mEq (1,080 1,080 mg PO DAILY SUPPLEMENT 05/24/15 05/18/23 History mg) tablet,extended release (Urocit-K 10) fenofibrate nanocrystallized 145 145 mg PO DAILY CHOLESTEROL 10/19/17 05/18/23 History mg tablet ezetimibe 10 mg tablet 10 mg PO DAILY cholesterol 12/06/22 05/18/23 History vit C 250 mg-vit E 90 mg-zinc 40 1 tab PO BID eye health 12/06/22 05/18/23 History mg-copper 1 ut-sdzprn-cyqede capsule (PreserVision AREDS-2) losartan 100 mg tablet 100 mg PO DAILY blood pressure 04/10/23 05/18/23 History aspirin 81 mg tablet,delayed 81 mg PO DAILYCM heart [facility] 90 04/13/23 05/18/23 Rx release days #90 tabs clopidogrel 75 mg tablet 75 mg PO DAILY anti platelet #90 04/13/23 05/18/23 Rx tabs glipizide 5 mg tablet 2.5 mg PO DINNER diabetes 04/26/23 05/17/23 History THERAWORX See Rx Instructions .Route .COMPLEX 05/18/23 Unknown History levothyroxine 100 mcg tablet 100 mcg PO DAILY thyroid 05/18/23 05/18/23 History metformin 1,000 mg tablet 1,000 mg PO BID DIABETES 05/18/23 05/18/23 History metoprolol tartrate 25 mg tablet 25 mg PO BID #180 tabs 06/07/23 Unknown Rx pravastatin 20 mg tablet 20 mg PO QHS #90 tabs 06/07/23 Unknown Rx Allergy/AdvReac Type Severity Reaction Status Date / Time Nqibxve-JUC-RaV Reductase AdvReac leg cramps Verified 02/04/24 14:47 Inhibitor (Qaxajcn-Qws-Awd Reductase Inhibitor) Surgical History Stented coronary artery (~04/10/23) Hx of cardiac catheterization (~04/10/23) Hx of total knee replacement Hx of colonoscopy S/P laparoscopic cholecystectomy History of tonsillectomy and adenoidectomy H/O prostatectomy Social History household members: spouse current occupational status: retired Smoking Status: Never smoker ROS ROS ED Constitutional Constitutional ED: Denies chills, fever(s) or weight loss Eyes Eyes: Denies change in vision or diplopia ENT ENT ED: Denies ear pain, rhinorrhea or sore throat Cardiovascular Cardiovascular: Denies chest pain, orthopnea, palpitations or racing heartbeat Respiratory/Chest Respiratory/Chest: Denies cough, dyspnea or orthopnea Gastrointestinal Gastrointestinal: Denies abdominal pain, diarrhea, nausea or vomiting Genitourinary Genitourinary ED: Denies dysuria, hematuria or urinary frequency Musculoskeletal Musculoskeletal: Reports other Details: See history of present illness ; Denies arthralgias or myalgias Integumentary Reports Abrasions; Denies abscess or rash Neurologic Neurologic: Denies headache(s) or weakness Psychiatric Psychiatric: Denies anxiety, depression, suicidal ideation or suicidal thoughts Endocrine Endocrinology: Denies polydipsia, polyphagia or polyuria Allergic/Immunologic Allergic/Immunologic ED: Denies mouth swelling, tongue swelling or urticaria EXAM Physical Exam Const Vital Signs: 02/04/24 14:47 02/04/24 18:46 02/04/24 19:47 Temperature 97 F L 98 F Temperature Source Temporal Pulse Rate 79 88 69 Respiratory Rate 18 16 18 Blood Pressure 172/80 H 170/73 H 126/89 H Blood Pressure Mean 110 105 101 Pulse Ox 98 99 99 Oxygen Delivery Method Room Air Room Air Positive well nourished and well developed General Appearance ED: well developed and NAD HEENT Reports normocephalic, head/scalp atraumatic and moist mucous membranes Eyes PERRL and EOMs intact bilaterally Neck no lymphadenopathy, supple and no JVD Resp normal respiratory effort and clear to auscultation bilaterally Cardio regular rate, regular rhythm and no murmurs GI normal to inspection, nondistended, normoactive bowel sounds and non-tender Palpation: soft Back/Spine no CVA tenderness and normal ROM Extremity Extremity Narrative: There is a hematoma over the left anterior patella and in the infrapatellar tibial tuberosity region. There is associated skin tear in the tibial tuberosity area. This does not appear to be in need of suturing. There is a dime sized area of skin avulsion to the medial left palm. There is superficial abrasions to the medial left elbow. General Extremety ED: Negative for edema General Extremity: Negative for edema Neuro oriented x3 and CN's II-XII intact bilaterally Sensorium / Orientation: alert Motor Exam: strength 5/5 throughout Psych mental status grossly normal Mood & Affect: Negative for depressed or tearful Skin no rashes or lesions noted Skin Narrative: Abrasion skin avulsion MDM MDM MDM Narrative Medical decision making narrative: Differential diagnosis includes but not limited to fracture skin avulsion laceration abrasion CONTUSION hematoma tendon injury internal derangement My independent interpretation of the plain films of the left knee is no acute fracture. His extensor mechanism is intact. Clinically I do not think this needs sutured. Local wound care will be formed by nursing in terms of cleaning it and dressing it. Eulogio wrap will be applied. He is to expect soreness and limited range of motion particularly at the knee joint tomorrow. Patient to return if worsening or concerns. Tetanus will be updated prior to discharge History & Record Review Discussion w/independent historian: Patient and Significant other Lab Data Labs: Laboratory Results - last 24 hr 02/04/24 18:56 POC Glucose 112 H Radiography Diagnostic Testing: Clinical Impression(s) from Imaging Studies Knee X-Ray 02/04/24 14:50 IMPRESSION: Pretibial soft tissue swelling. No fracture is seen. Electronically Signed: Bharath Steen MD at 15:06 EDT , Discharge Plan Triage Chief Complaint: Fall ED Provider: Ian Bernal Dx/Rx/DC Orders Clinical Impression: Avulsion of skin, Hematoma of left knee region, Fall, Abrasion of elbow, left Instructions: ED Abrasion, ED Contusion, Lower Extremity, ED Skin Tear (Skin Avulsion) Prescriptions: No Action Centrum Silver 1 EACH tablet 1 ea PO DAILY potassium citrate [Urocit-K 10] 10 MEQ tablet extended release 1,080 mg PO DAILY fenofibrate nanocrystallized 145 tablet 145 mg PO DAILY Patient Comments: ezetimibe 10 mg tablet 10 mg PO DAILY PreserVision AREDS-2 250-90-40-1 mg capsule 1 tab PO BID glipizide 5 mg tablet 2.5 mg PO DINNER losartan 100 mg tablet 100 mg PO DAILY aspirin 81 mg Tablet,Delayed Release (Dr/Ec) 81 mg PO DAILYCM 90 Days Qty: 90 0RF levothyroxine 100 mcg tablet 100 mcg PO DAILY Rx Instructions: take in am metformin 1,000 mg tablet 1,000 mg PO BID THERAWORX foam See Rx Instructions .ROUTE .COMPLEX Rx Instructions: APPLY TO MUSCLE CRAMPS NEEDED; clopidogrel 75 mg tablet 75 mg PO DAILY Qty: 90 3RF metoprolol tartrate 25 mg tablet 25 mg PO BID Qty: 180 3RF pravastatin 20 mg tablet 20 mg PO QHS Qty: 90 3RF Primary Care Provider: Mita Zaidi Referrals: Mita Zaidi, [employer] [Primary Care Provider] - As Needed Activity Restrictions/Additional Instructions: I would recommend leaving the bandage we applied tonight on until tomorrow evening. It which time you can remove the dressing and change it. Antibiotic ointment 1 time per day I would allow the wound to dry daily Soap and water in the shower is fine. Ice to the knee would be beneficial for the first 48 to 72 hours. You are to expect soreness to increase tonight. You most likely have limited range of motion of the left knee due to the swelling Print Language: Syriac Disposition Disposition: Home, Self Care
== END 2024-02-04 19:57 | disposition home or self-care (01) ==
LOC: ED 19:48
PROVIDERS: Emergency Provider Emergency Medicine; PCP Nurse Practitioner Family; Visit Provider Emergency Medicine
DX: S80.02XA Contusion of left knee, initial encounter (principal); E11.40 Type 2 diabetes mellitus with diabetic neuropathy, unspecified; I10 Essential (primary) hypertension; S61.419A Laceration without foreign body of unspecified hand, initial encounter; W19.XXXA Unspecified fall, initial encounter; S50.312A Abrasion of left elbow, initial encounter; S80.212A Abrasion, left knee, initial encounter; E78.00 Pure hypercholesterolemia, unspecified; Z90.49 Acquired absence of other specified parts of digestive tract; Z95.5 Presence of coronary angioplasty implant and graft; E03.9 Hypothyroidism, unspecified; G47.30 Sleep apnea, unspecified; Z99.89 Dependence on other enabling machines and devices; W01.0XXA Fall on same level from slipping, tripping and stumbling without subsequent striking against object, initial encounter
CPT/HCPCS: 73564; 82962; 90715; 99282

== ENCOUNTER → 2024-02-25 | Outpatient (CLI) | payer MEDICARE, OTHER, SELFPAY ==
[2023-08-12 10:42] VITALS: BMI 27.0
== END | disposition home or self-care (01) ==
LOC: BFHLAB 10:09 → LABSPEC 10:11
PROVIDERS: PCP Nurse Practitioner Family; Referring Provider Nurse Practitioner Family; Visit Provider Nurse Practitioner Family
DX: N39.0 Urinary tract infection, site not specified (principal)
CPT/HCPCS: 87077; 87086; 87088; 87186

== ENCOUNTER → 2024-04-17 | Outpatient (CLI) | payer MEDICARE, OTHER, SELFPAY ==
[2023-08-12 10:42] VITALS: BMI 27.0
== END | disposition home or self-care (01) ==
LOC: LABSPEC 06-22 14:19
PROVIDERS: PCP Nurse Practitioner Family; Visit Provider Nurse Practitioner Family
DX: N39.0 Urinary tract infection, site not specified (principal)
CPT/HCPCS: 87077; 87086; 87088; 87186

== ENCOUNTER → 2024-04-18 | Outpatient (CLI) | payer MEDICARE, OTHER, SELFPAY ==
[2023-08-12 10:42] VITALS: BMI 27.0
[2024-04-18 07:43] LABS: Absolute Lymphocyte Count 1.26 X10^3/uL (0.83-4.51); Absolute Neutrophil Count 3.4 X10^3/uL (2.0-7.7); Basophil# 0.07 X10^3/uL; Basophil% 1.2 % (0-1); Hematocrit 35.9 % (40-54); Hemoglobin 11.8 g/dL (13.0-16.5); Lymphocyte # 1.26 X10^3/ul (0.83-4.51); Lymphocyte % 22.2 % (19-41); Mean Corp Hgb Conc 32.9 g/dL (32-36); Mean Corpuscular Hgb 29.5 pg (27.0-32.0); Mean Corpuscular Volume 89.8 fL (80-94); Mean Platelet Vol. 10.6 fl (6.2-12.0); Monocyte# 0.58 X10^3/uL; Monocyte% 10.2 % (0-10); NRBC Flagged by Analyzer 0 % (0-5); Neutrophil # 3.35 X10^3/uL (2.7-7.7); Platelet Count 245 K/mm3 (150-450); RBC Distribution Width CV 13.7 % (11.6-14.6); RBC Distribution Width SD 45.1 fl (35.1-43.9); White Blood Count 5.7 K/mm3 (4.4-11.0)
[2024-04-18 08:07] LABS: ALB/GLOB Ratio 1.1 RATIO (0.9-2.4); AST(SGOT) 12 U/L (15-37); Alanine Aminotransfer ALT/SGPT 18 U/L (16-61); Albumin, Serum 3.9 g/dL (3.2-5.0); Alkaline Phosphatase 52 U/L (45-117); Anion Gap 5 (5-15); BUN 29 mg/dL (7-18); BUN/Creat Ratio 19.9 RATIO (10-20); Calcium,Total 8.9 mg/dL (8.5-10.1); Chloride 111 mmol/L (98-107); Cholesterol 140 mg/dL (200); Creatinine, Serum 1.46 mg/dL (0.70-1.30); EST Glomerular Filtration Rate 50 mL/min (>60); Est Glom Filt Rate - Afr Amer 61 mL/min (>60); Globulin 3.5 g/dL (2.2-4.2); Glucose 113 mg/dL (74-106); High Density Lipoprotein 31 mg/dL; Potassium 4.1 mmol/L (3.5-5.1); Protein, Total 7.4 g/dL (6.4-8.2); Sodium Level 141 mmol/L (136-145); Triglycerides 184 mg/dL; Very Low Density Lipoprotein 37 mg/dL (5-40)
== END | disposition home or self-care (01) ==
LOC: LAB 06:54
PROVIDERS: PCP Nurse Practitioner Family; Referring Provider Nurse Practitioner Family; Visit Provider Nurse Practitioner Family
DX: E78.5 Hyperlipidemia, unspecified (principal); I10 Essential (primary) hypertension
CPT/HCPCS: 36415; 80053; 80061; 85025

== ENCOUNTER → 2024-05-04 | Outpatient (CLI) | payer MEDICARE, OTHER, SELFPAY ==
[2023-08-12 10:42] VITALS: BMI 27.0
[2024-05-04 16:33] LABS: Microalbumin,Random Urine 32.1 mg/L (NO RANGE EST.); Microalbumin:Creatinine Ratio 41.7 mg/g CRE (<30 mg/g CRE)
== END | disposition home or self-care (01) ==
LOC: POLAB3 15:22
PROVIDERS: PCP Nurse Practitioner Family; Visit Provider Internal Medicine Nephrology
DX: E11.9 Type 2 diabetes mellitus without complications (principal)
CPT/HCPCS: 82043; 82570

== ENCOUNTER → 2024-06-08 | Outpatient (CLI) | payer MEDICARE, OTHER, SELFPAY ==
[2023-08-12 10:42] VITALS: BMI 27.0
--- NOTE | 2024-06-08 12:41 | CDU_ITS ---
Reason For Study Reason For Study: Lightheadedness / Abnormal CT Rt. Velocities/BP Lt. Velocities/BP Prox CCA 56.7/10.6 cm/sec. Prox CCA 83.1/20.4 cm/sec. Mid CCA 69.9/19.3 cm/sec. Mid CCA 58.9/16.0 cm/sec. Dist CCA 50.1/11.7 cm/sec. Dist CCA 67.7/18.2 cm/sec. Prox ICA 300.5/104.4 cm/sec. Prox ICA 121.6/41.3 cm/sec. Mid ICA 200.6/52.2 cm/sec. Mid ICA 98.7/36.6 cm/sec. Dist ICA 99.3/20.5 cm/sec. Dist ICA 106.4/35.1 cm/sec. Rt. ICA/CCA = 4.3. Lt. ICA/CCA = 2.1. Prox ECA 125.5/5.0 cm/sec. Prox ECA 110.5/6.6 cm/sec. Rt. Vert. 35.4/9.2 cm/sec. Lt. Vert. 44.1/14.5 cm/sec. Right Extracranial There is heterogeneous, irregular atherosclerotic plaque noted in the right common carotid artery. There is heterogeneous, irregular atherosclerotic plaque noted in the right internal carotid artery. There is heterogeneous, irregular atherosclerotic plaque noted in the right external carotid artery. Antegrade flow is noted in the right vertebral artery. Left Extracranial There is heterogeneous, irregular atherosclerotic plaque noted in the left common carotid artery. There is heterogeneous, irregular atherosclerotic plaque noted in the left internal carotid artery. There is heterogeneous, irregular atherosclerotic plaque noted in the left external carotid artery. Antegrade flow is noted in the left vertebral artery. Procedure Carotid Duplex 60671. This is a Carotid Duplex examination using B-mode, color flow and specral Doppler. The exam was diagnostic. Exam performed in department. VL/Carotid Duplex Ultrasound Interpretation Summary Severe (>70%) stenosis right extracranial internal carotid. Mild (<50%) stenosis left extracranial internal carotid. Patent and antegrade vertebrals bilaterally. Ordering Physician: Werner Rocha Referring Physician: Mita Zaidi Performed By: Michael Epps RVT
== END | disposition home or self-care (01) ==
LOC: CVS 12:39
PROVIDERS: PCP Nurse Practitioner Family; Referring Provider Nurse Practitioner Family; Visit Provider Nurse Practitioner Family
DX: I65.22 Occlusion and stenosis of left carotid artery (principal); R42 Dizziness and giddiness
CPT/HCPCS: 93880

== ENCOUNTER → 2024-07-06 | Outpatient (CLI) | payer MEDICARE, OTHER, SELFPAY ==
[2023-08-12 10:42] VITALS: BMI 27.0
--- NOTE | 2024-07-06 10:37 | CT_ITS ---
PROCEDURE: CTA HEAD AND NECK W/ CONTRAST 07/06/2024 REASON FOR EXAM: SEVERE R ICA STENOSIS TECHNIQUE: CTA HEAD AND NECK WITH IV CONTRAST: Coronal and Sagittal reconstruction series were provided. 3D, 3D post processing, 3D reconstructions, Maximum intensity projection (MIPs) Volume rendering and Shaded surface rendering was provided. CONTRAST: Isovue 370 VOLUME: 75 mL mL One or more dose reduction techniques were used (e.g., Automated exposure control, adjustment of the mA and/or kV according to patient size, use of iterative reconstruction technique). RADIATION DOSE SUMMARY: CTDlvol: 19.97 mGy DLP: 1662.82 mGycm COMPARISON: None FINDINGS: AORTIC ARCH: Atherosclerotic plaque formation of the aortic arch. Calcific plaques at the origin of the right brachiocephalic artery. EXTRACRANIAL CAROTIDS: Mild calcific plaques in the left common carotid artery. RIGHT ICA Maximum stenosis (NASCET): Calcific plaque at the origin of the right internal carotid artery causing high-grade stenosis/almost occlusion. LEFT ICA Maximum stenosis (NASCET): 50-60% narrowing. % SKULL BASE: Unremarkable INTRACRANIAL VASCULATURE Cerebral Arteries: Unremarkable [place]: Unremarkable Venous Drainage: Unremarkable VERTEBROBASILAR SYSTEM: Unremarkable CT/CTA Head AND Neck W/ Contrast IMPRESSION: High-grade stenosis at the origin of the right internal carotid artery. 50-60% narrowing at the origin of the left internal carotid artery. Reading Location: [place] [id number]
== END | disposition home or self-care (01) ==
LOC: CT 10:37
PROVIDERS: PCP Nurse Practitioner Family; Referring Provider Physician Assistant; Visit Provider Physician Assistant
DX: I77.9 Disorder of arteries and arterioles, unspecified (principal)
CPT/HCPCS: 70496; 70498; Q9967

== ENCOUNTER 2024-08-15 13:03 | Inpatient (IN) | payer MEDICARE, OTHER, SELFPAY ==
[2023-08-12 10:42] VITALS: BMI 27.0
--- NOTE | 2024-08-01 18:08 | PAT.ANESEVAL ---
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 When Was Last Pacemaker Check QUESTION #4 FULL TEXT: You/Your Family Experience fever (hyperthermia) with Anesthesia Last Oral Intake Last Oral intake: Last Oral Intake NPO since Meds taken in AM with sips of water? Meds patient instructed to take am of surgery PONV PONV - iron launder operator: PONV - iron launder operator Female No 08/01/24 09:26 HX of Motion Sickness No 08/01/24 09:26 HX of N/V After Surgery No 08/01/24 09:26 Non-Smoker Yes 08/01/24 09:26 Duration of Surgery greater Yes 08/01/24 09:26 than 60 minutes Number of Risk Factors 2 08/01/24 09:26 PONV Score Moderate Risk 08/01/24 09:26 Height & Weight Height & Weight: Anesthesia: Height & Weight Height 5 ft 9 in 06/07/24 09:33 Respiratory Assessment Respiratory Assessment - iron launder operator: Respiratory Tract Infection Hx - iron launder operator Hx Respiratory Tract Infection No 08/01/24 09:26 STOP Sleep Apnea STOP Sleep Apnea - iron launder operator: STOP Sleep Apnea - iron launder operator Hx Hypertension Yes: CONTROLLED WITH MED 08/01/24 09:26 Hx Sleep Apnea Yes 08/01/24 09:26 CPAP Yes 08/01/24 09:26 BIPAP No 08/01/24 09:26 Do you snore loudly (louder than talking or can be heard Do you often feel tired/ fatigued/ sleepy during daytime? Has anyone observed you stop breathing during sleep? STOP Results Positive 08/01/24 09:26 QUESTION #5 FULL TEXT : Do you snore loudly (louder than talking or can be heard through closed doors)? 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 Specify any problems Hx of Preganancy in last 3 N/A 08/01/24 09:26 Months Nurse Filling Out Transfusion DSCHRIBER 08/01/24 09:26 & Questions: Date: 08/01/24 08/01/24 09:26 Time: 08/01/24 09:26 Patient unable to answer at this time (ie. confused, unrespo /Reproduction History /Reproductive History - iron launder operator: /Reproductive Hx- iron launder operator Hx Now No 08/01/24 09:26 Gestational Age (in weeks): EDC: Hx Hx Para Hx Section SAB No 08/01/24 09:26 PFS Medical History (Updated 08/01/24 @ 09:40 by Eleni Dickson) Anxiety Generalized psoriasis Cervical arthritis Syncope Thyroid disease Anemia CPAP (continuous positive airway pressure) dependence History of pain when walking History of echocardiogram Cardiology follow-up encounter History of heart attack Preop cardiovascular exam Supraventricular tachycardia Transient complete heart block Loss of hearing Wears glasses Cancer History of renal disease High cholesterol Dietary restriction Difficulty swallowing Non-smoker Neuropathy BPH (benign prostatic hyperplasia) Cholecystitis Hypothyroid Diabetes mellitus Leg cramping Hypertension Home Medications ?Medication ?Instructions ?Recorded ?Last Taken ?Type txmhlylb-sms-decjy acid 0.4 1 ea PO DAILY SUPPLEMENT' 01/08/13 05/18/23 History mg-lycopene 300 mcg-lutein 250 mcg tablet (Centrum Silver) potassium citrate 10 mEq (1,080 1,080 mg PO DAILY SUPPLEMENT 05/24/15 05/18/23 History mg) tablet,extended release (Urocit-K 10) fenofibrate nanocrystallized 145 145 mg PO DAILY CHOLESTEROL 10/19/17 05/18/23 History mg tablet ezetimibe 10 mg tablet 10 mg PO DAILY cholesterol 12/06/22 05/18/23 History vit C 250 mg-vit E 90 mg-zinc 40 1 tab PO BID eye health 12/06/22 05/18/23 History mg-copper 1 xd-gtzuev-uvwsva capsule (PreserVision AREDS-2) losartan 100 mg tablet 100 mg PO DAILY blood pressure 04/10/23 05/18/23 History aspirin 81 mg tablet,delayed 81 mg PO DAILYCM heart health 90 04/13/23 05/18/23 Rx release days #90 tabs clopidogrel 75 mg tablet 75 mg PO DAILY anti platelet #90 04/13/23 05/18/23 Rx tabs glipizide 5 mg tablet 5 mg PO DINNER diabetes 04/26/23 05/17/23 History THERAWORX See Rx Instructions .Route .COMPLEX 05/18/23 Unknown History levothyroxine 100 mcg tablet 100 mcg PO MOTUWETHFRSA thyroid 05/18/23 05/18/23 History metformin 1,000 mg tablet 1,000 mg PO BID DIABETES 05/18/23 05/18/23 History metoprolol tartrate 25 mg tablet 25 mg PO BID #180 tabs 06/07/23 Unknown Rx pravastatin 20 mg tablet 20 mg PO QHS #90 tabs 06/07/23 Unknown Rx omega-3 fatty acids 1,000 mg 1,000 mg PO BID 06/23/24 Unknown History capsule levothyroxine 100 mcg capsule 150 mcg PO GONZALES 08/01/24 Unknown History Allergy/AdvReac Type Severity Reaction Status Date / Time Pncudkz-LRA-VxS Reductase AdvReac leg cramps Verified 08/01/24 09:17 Inhibitor (Hajrxrh-Gcu-Eov Reductase Inhibitor) Surgical History (Updated 08/01/24 @ 09:40 by Eleni Dickson) Hx of oral surgery Hx of cystoscopy History of coronary artery stent placement Hx of colonoscopy Stented coronary artery (~04/10/23) Hx of cardiac catheterization (~04/10/23) Hx of total knee replacement S/P laparoscopic cholecystectomy History of tonsillectomy and adenoidectomy H/O prostatectomy Social History household members: spouse current occupational status: retired Smoking Status: Never smoker alcohol intake: never substance use type: does not use caffeine: No Audit: Pertinent Findings Pertinent Findings EKG Perinent findings: June 07, 2024. Sinus rhythm. First-degree AV block. Inferior infarct age undetermined. No significant changes from EKG of 06/02/2023. Echo (EF%) pertinent findings: April 12, 2023. Ejection fraction 55%. Normal aortic valves. Heart catheterization pertinent findings: April 10, 2023. Left ventricular ejection fraction 60%. LAD has a 60% mid lesion. RCA has a 80% proximal lesion and 100% mid lesion. RIRI stent was placed in the proximal RCA. Post stent 0% lesion. Consult pertinent findings: June 07, 2024. Aj CAR. 1. Atherosclerotic cardiovascular disease?chronic-status post stenting of the of the RCA at the time of the acute inferior wall MA in April 2023. Complicated by complete heart block which resolved spontaneously. Patient is on beta-gian. Stable. 2. SVT?chronic-no obvious recurrence. Continue metoprolol. 3. Buaftjeqmesw-awjejpv-bgmztnob in office today. Patient is to monitor at home and report back to us. 4. Lightheaded?acute-with the patient's history of coronary artery disease we will check carotid duplex to assess for any high-grade stenosis. (See below) Additional pertinent findings: June 08, 2024. Severe greater than 70% stenosis of the right internal carotid. Mild less than 50% stenosis of the left internal carotid. Recommendation Anesthesia Recommendation Anesthesia recommendation: OPTIMIZED for anesthesia
[2024-08-02 09:13] LABS: Anion Gap 11 (5-15); BUN 31 mg/dL (4-19); BUN/Creat Ratio 20.9 RATIO (10-20); Calcium,Total 9.2 mg/dL (7.6-11.0); Carbon Dioxide 23.3 mmol/L (21.0-32.0); Chloride 106 mmol/L (98-108); EST Glomerular Filtration Rate 48 (>60); Glucose 160 mg/dL (70-99); Potassium 4.4 mmol/L (3.3-5.1); Sodium Level 140 mmol/L (133-145)
[2024-08-15] VITALS (27 sets, daily range): BP systolic 100–169; BP diastolic 48–81; PULSE 53–111; RESP 13–21; TEMP 35.9–37.3; O2SAT 92–100; BMI 27.1; BMI 28.5
[2024-08-15] MEDS: Lactated Ringers 1,000 ML 15 ML IV (10:06)
--- NOTE | 2024-08-15 10:25 | PRE.ANES_ITS ---
ASA Classification* ASA Classification ASA Classification: 3 Assessment & Plan Anesthesia* Anesthesia Assessment Anesthesia Assessment: Discussed sedation and/or anesthesia options, risks, benefits, and alternatives with patient/parents/legal guardian/POA. Questions invited. The patient/parents/legal guardian/POA seems to understand and agrees to proceed with anesthesia plan. Reviewed the physical assessment, medical history, allergy history and patient home medications list prior to surgery/procedure/anesthetic and documented any changes. Performed airway and anesthesia risk assessments. Anesthesia Type Anesthesia Type: General (Will place arterial line) History Source History Obtained from:: Patient and Chart Anesthesia Focused Assessment* Temperature: 96.7 F Pulse Rate: 61 Blood Pressure: 137/71 Respiratory Rate: 14 Pulse Ox: 100 Oxygen Delivery Method: Room Air Airway Assessment Mouth opens: >3 cm Mallampati Score: II Teeth Condition: Intact Focused Labs Anesthesia Preop lab: CBC WBC 6.1 K/mm3 (4.4-11.0) 06/12/24 12:18 06/12/24 RBC 4.08 M/mm3 (4.6-6.2) L 06/12/24 12:18 06/12/24 Hgb 12.1 g/dL (13.0-16.5) L 06/12/24 12:18 5 Hct 36.1 % (40-54) L 06/12/24 12:18 06/12/24 Plt Count 247 K/mm3 (150-450) 06/12/24 12:18 06/12/24 CHEMISTRY Potassium 4.4 mmol/L (3.3-5.1) 08/02/24 07:45 08/02/24 Sodium 140 mmol/L (133-145) 08/02/24 07:45 08/02/24 Magnesium 2.2 mg/dL (1.5-2.2) 06/12/24 12:12 06/12/24 Phosphorus 3.8 mg/dL (2.5-4.9) 04/12/23 05:40 04/12/23 BUN 31 mg/dL (4-19) H 08/02/24 07:45 08/02/24 Creatinine 1.50 mg/dL (0.70-1.20) H 08/02/24 07:45 Glucose 160 mg/dL (70-99) H 08/02/24 07:45 08/02/24 POC Glucose 112 mg/dL (74-106) H 02/04/24 18:56 02/04/24 TSH 1.720 uIU/mL (0.300-4.200) 06/12/24 12:12 06/03 COAG PT 13.8 SECONDS (11.7-14.9) 05/18/23 10:08 Pre-Assessment Diagnosis/Proposed Procedure Planned Operative Procedure(s): RIGHT CAROTID STENT IN INCOME TAX MANAGER WITH ANESTHESIA Anesthesia History 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 When Was Last Pacemaker Check QUESTION #4 FULL TEXT: You/Your Family Experience fever (hyperthermia) with Anesthesia Last Oral Intake Last Oral intake: Last Oral Intake NPO since 17:00 08/15/24 09:48 Meds taken in AM with sips of water? 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: PONV - branner machine tender Female No 08/01/24 09:26 HX of Motion Sickness No 08/01/24 09:26 HX of N/V After Surgery No 08/01/24 09:26 Non-Smoker Yes 08/01/24 09:26 Duration of Surgery greater Yes 08/01/24 09:26 than 60 minutes Number of Risk Factors 2 08/01/24 09:26 PONV Score Moderate Risk 08/01/24 09:26 Height & Weight Height & Weight: Anesthesia: Height & Weight Height 5 ft 9 in 08/15/24 09:48 Weight: 83.3 kg 08/15/24 09:48 Body Mass Index (BMI) 27.1 08/15/24 09:48 Respiratory Assessment Respiratory Assessment - branner machine tender: Respiratory Tract Infection Hx - branner machine tender Hx Respiratory Tract Infection No 08/01/24 09:26 STOP Sleep Apnea STOP Sleep Apnea - branner machine tender: STOP Sleep Apnea - branner machine tender Hx Hypertension Yes: CONTROLLED WITH MED 08/01/24 09:26 Hx Sleep Apnea Yes 08/01/24 09:26 CPAP Yes 08/01/24 09:26 BIPAP No 08/01/24 09:26 Do you snore loudly (louder than talking or can be heard Do you often feel tired/ fatigued/ sleepy during daytime? Has anyone observed you stop breathing during sleep? STOP Results Positive 08/01/24 09:26 QUESTION #5 FULL TEXT : Do you snore loudly (louder than talking or can be heard through closed doors)? 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 Specify any problems Hx of Preganancy in last 3 N/A 08/01/24 09:26 Months Nurse Filling Out Transfusion DSCHRIBER 08/01/24 09:26 & Questions: Date: 08/01/24 08/01/24 09:26 Time: 08/01/24 09:26 Patient unable to answer at this time (ie. confused, unrespo /Reproduction History /Reproductive History - branner machine tender: /Reproductive Hx- branner machine tender Hx Now No 08/01/24 09:26 Gestational Age (in weeks): EDC: Hx Hx Para Hx Section SAB No 08/01/24 09:26 Active Medications Active Medications: Current Medications Generic Name Dose Route Start Last Admin Trade Name Freq PRN Reason Stop Dose Admin Lactated Ringer's 1,000 mls @ 15 mls/hr 08/15/24 09:15 08/15/24 10:06 IV 15 mls/hr .Q48H JS Administration Sodium Chloride 1,000 mls @ 1 mls/hr 08/15/24 09:10 IV .Q48H PRN Saline Flush PFSH Medical History Anxiety Generalized psoriasis Cervical arthritis Syncope Thyroid disease Anemia CPAP (continuous positive airway pressure) dependence History of pain when walking History of echocardiogram Cardiology follow-up encounter History of heart attack Preop cardiovascular exam Supraventricular tachycardia Transient complete heart block Loss of hearing Wears glasses Cancer History of renal disease High cholesterol Dietary restriction Difficulty swallowing Non-smoker Neuropathy BPH (benign prostatic hyperplasia) Cholecystitis Hypothyroid Diabetes mellitus Leg cramping Hypertension Home Medications ?Medication ?Instructions ?Recorded ?Last Taken ?Type kadhmslu-rba-zhqsi acid 0.4 1 ea PO DAILY SUPPLEMENT' 01/08/13 08/14/24 History mg-lycopene 300 mcg-lutein 250 mcg tablet (Centrum Silver) potassium citrate 10 mEq (1,080 1,080 mg PO DAILY SUPP LEMENT 05/24/15 08/14/24 History mg) tablet,extended release (Urocit-K 10) fenofibrate nanocrystallized 145 145 mg PO DAILY DANIEL STEROL 10/19/17 08/14/24 History mg tablet ezetimibe 10 mg tablet 10 mg PO DAILY cholesterol 0 12/06/22 08/14/24 History vit C 250 mg-vit E 90 mg-zinc 40 1 tab PO BID eye heal th 12/06/22 08/14/24 History mg-copper 1 ku-izvavp-uuwvkm capsule (PreserVision AREDS-2) losartan 100 mg tablet 100 mg PO DAILY blood pressu re 04/10/23 08/15/24 History aspirin 81 mg tablet,delayed 81 mg PO DAILYCM heart he alth 90 04/13/23 08/15/24 Rx release days #90 tabs clopidogrel 75 mg tablet 75 mg PO DAILY anti platelet #90 04/13/23 08/15/24 Rx tabs glipizide 5 mg tablet 5 mg PO DINNER diabetes 04/0608/14/24 History THERAWORX See Rx Instructions .Route . COMPLEX 05/18/23 Unknown History levothyroxine 100 mcg tablet 100 mcg PO MOTUWETHFRSA t hyroid 05/18/23 08/15/24 History metformin 1,000 mg tablet 1,000 mg PO BID DIABETES 08/14/24 History metoprolol tartrate 25 mg tablet 25 mg PO BID #180 tab s 06/07/23 08/15/24 Rx pravastatin 20 mg tablet 20 mg PO QHS #90 tabs 08/14/24 Rx omega-3 fatty acids 1,000 mg 1,000 mg PO BID 06/23/24 08/14/24 History capsule levothyroxine 100 mcg capsule 150 mcg PO GONZALES 08/01/24 0 08/13/24 History Allergy/AdvReac Type Severity Reaction Status Date / Time Iwkywim-VMJ-BdW Reductase AdvReac leg cramps Verified 08/15/24 09:41 Inhibitor (Spdynhx-Pns-Pxo Reductase Inhibitor) Surgical History Hx of oral surgery Hx of cystoscopy History of coronary artery stent placement Hx of colonoscopy Stented coronary artery (~04/10/23) Hx of cardiac catheterization (~04/10/23) Hx of total knee replacement S/P laparoscopic cholecystectomy History of tonsillectomy and adenoidectomy H/O prostatectomy Social History household members: spouse current occupational status: retired Smoking Status: Never smoker alcohol intake: never substance use type: does not use caffeine: No Addt'l Information Additional Findings: Echo cardiogram EF 55%, diastolic grade 1 Review of Systems (Anesthesia) ROS Narrative System reviewed and no additional complaints, except as documented. Physical Exam Const alert and oriented x3 HEENT dentition normal Resp normal respiratory effort Auscultation: clear to auscultation bilaterally Cardio regular rate and regular rhythm Neuro oriented x3 and moves all extremities
[2024-08-15 10:52] LABS: Bedside Glucose 121 mg/dL (74-106)
--- NOTE | 2024-08-15 11:06 | PCM.HP.STD ---
HPI - General HPI Narrative SINDY GREENFIELD, is a 74 M who presents with right ICA stenosis found initially on duplex to further evaluate dizziness. This revealed >70% stenosis of the right ICA. He is currently on ASA/plavix/statin for CAD. He has had a CTA that confirmed 76% stenosis. He is in the process of arranging cervical decompression via anterior approach with Dr. Bettencourt in the near future. He denies numbness/weakness/vision loss/speech difficulty. [facility] Medical History Anxiety Generalized psoriasis Cervical arthritis Syncope Thyroid disease Anemia CPAP (continuous positive airway pressure) dependence History of pain when walking History of echocardiogram Cardiology follow-up encounter History of heart attack Preop cardiovascular exam Supraventricular tachycardia Transient complete heart block Loss of hearing Wears glasses Cancer History of renal disease High cholesterol Dietary restriction Difficulty swallowing Non-smoker Neuropathy BPH (benign prostatic hyperplasia) Cholecystitis Hypothyroid Diabetes mellitus Leg cramping Hypertension Home Medications ?Medication ?Instructions ?Recorded ?Last Taken ?Type uxzgxnvp-jnn-itjfe acid 0.4 1 ea PO DAILY SUPPLEMENT' 01/08/13 08/14/24 History mg-lycopene 300 mcg-lutein 250 mcg tablet (Centrum Silver) potassium citrate 10 mEq (1,080 1,080 mg PO DAILY SUPPLEMENT 05/24/15 08/14/24 History mg) tablet,extended release (Urocit-K 10) fenofibrate nanocrystallized 145 145 mg PO DAILY CHOLESTEROL 10/19/17 08/14/24 History mg tablet ezetimibe 10 mg tablet 10 mg PO DAILY cholesterol 12/06/22 08/14/24 History vit C 250 mg-vit E 90 mg-zinc 40 1 tab PO BID eye health 12/06/22 08/14/24 History mg-copper 1 un-arhphu-qyyzqy capsule (PreserVision AREDS-2) losartan 100 mg tablet 100 mg PO DAILY blood pressure 04/10/23 08/15/24 History aspirin 81 mg tablet,delayed 81 mg PO DAILYCM heart health 90 04/13/23 08/15/24 Rx release days #90 tabs clopidogrel 75 mg tablet 75 mg PO DAILY anti platelet #90 04/13/23 08/15/24 Rx tabs glipizide 5 mg tablet 5 mg PO DINNER diabetes 04/26/23 08/14/24 History THERAWORX See Rx Instructions .Route .COMPLEX 05/18/23 Unknown History levothyroxine 100 mcg tablet 100 mcg PO MOTUWETHFRSA thyroid 05/18/23 08/15/24 History metformin 1,000 mg tablet 1,000 mg PO BID DIABETES 05/18/23 08/14/24 History metoprolol tartrate 25 mg tablet 25 mg PO BID #180 tabs 06/07/23 08/15/24 Rx pravastatin 20 mg tablet 20 mg PO QHS #90 tabs 06/07/23 08/14/24 Rx omega-3 fatty acids 1,000 mg 1,000 mg PO BID 06/23/24 08/14/24 History capsule levothyroxine 100 mcg capsule 150 mcg PO GONZALES 08/01/24 08/13/24 History Allergy/AdvReac Type Severity Reaction Status Date / Time Ydanvmw-MTK-JsY Reductase AdvReac leg cramps Verified 08/15/24 09:41 Inhibitor (Fcornbv-Eks-Ium Reductase Inhibitor) Surgical History Hx of oral surgery Hx of cystoscopy History of coronary artery stent placement Hx of colonoscopy Stented coronary artery (~04/10/23) Hx of cardiac catheterization (~04/10/23) Hx of total knee replacement S/P laparoscopic cholecystectomy History of tonsillectomy and adenoidectomy H/O prostatectomy Social History household members: spouse current occupational status: retired Smoking Status: Never smoker alcohol intake: never substance use type: does not use caffeine: No ROS Constitutional Constitutional: Denies chills, fever(s), frequent falls, lethargy or weakness Eyes Eyes: Denies blind spots, change in vision or loss of vision ENT HEENT: Denies bleeding gums, hoarseness or sore throat Cardiovascular Cardiovascular: Denies abdominal pain, bluish discoloration of hand/feet, chest pain with activity, claudication, cold extremities, cyanosis, dyspnea on exertion, erythema on extremities, irregular heart rhythm, leg edema, leg ulcers, numbness in extremities or weakness in extremities Respiratory/Chest Respiratory/Chest: Denies cough, excessive phlegm production, shortness of breath at rest, shortness of breath with exertion or wheezing Gastrointestinal Gastrointestinal: Denies anorexia, change in stool character, constipation, diarrhea, melena or rectal bleeding Genitourinary Genitourinary: Denies dysuria or hematuria Musculoskeletal Musculoskeletal: Denies abnormal gait Integumentary Integumentary: Reports other Details: ; Denies erythema, non-healing lesions or wounds Neurologic Neurologic: Denies abnormal speech, focal weakness, headache(s), loss of vision, numbness, paresthesias or sensory deficit Hematologic/Lymphatic Hematologic/Lymphatic: Denies easy bleeding, easy bruising or lymphadenopathy Vital Signs Vital Signs Vital Signs: 08/15/24 09:48 08/15/24 09:48 08/15/24 10:30 Temperature 96.7 F L 96.7 F L Temperature Source Temporal Pulse Rate 61 61 Respiratory Rate 14 14 Respiratory Pattern Normal Blood Pressure 137/71 H 137/71 H Blood Pressure Mean 93 Blood Pressure Source Monitor Blood Pressure Position Semi-Fowlers Blood Pressure Location Left Arm Pulse Ox 100 100 Oxygen Delivery Method Room Air Room Air Weight Weight: 183 lb 10.321 oz Body Mass Index (BMI) 27.1 Physical Exam Const alert, oriented x3, no apparent distress and healthy appearing General Appearance: cooperative; Negative for combative or lethargic Orientation / Consciousness: awake Exam Limitations: no limitations HEENT Head and Scalp: normocephalic and atraumatic Eyes EOMs intact bilaterally General Eye: normal appearance of both eyes Neck full ROM General: trachea midline Resp normal respiratory effort and no use of accessory muscles Effort and Inspection: Negative for labored, stridor or audible wheezes Cardio regular rate and regular rhythm Back/Spine Cervical Spine: cervical ROM normal Extremity full ROM, normal capillary refill and no clubbing, cyanosis or edema Skin no rashes or lesions noted and no wounds Neuro oriented x3, CN's II-XII intact bilaterally, no focal motor deficits and no sensory deficits noted Psych thought process normal, cooperative, affect normal, speech normal and activity/motor behavior normal Results Lab / Micro Data 08/02/24 07:45 Labs: Laboratory Results - last 24 hr 08/15/24 09:47: POC Glucose 121 H Assessment & Plan Assessment/Plan (1) Stenosis of right carotid artery: PLAN: -right TCAR
[2024-08-15 13:04] LABS: ACT Activated Clotting Time 233 sec (74-137)
[2024-08-15 13:04] LABS: ACT Activated Clotting Time 124 sec (74-137)
[2024-08-15 13:04] LABS: ACT Activated Clotting Time 245 sec (74-137)
--- NOTE | 2024-08-15 13:17 | PCM.OPRPT ---
Operative Report (Standard) Operative Information Date of Procedure: 08/15/24 Pre-Operative Diagnosis: right carotid stenosis Post-Operative Diagnosis: same Surgery/Procedure Performed: right carotid stent, trans carotid grab operator: Yes Production Corrugator: Jodi Candelario Tasks completed by waiter/waitress first class: Opening, Closing, Opening & closing, Hemostasis: Electrocautery and Retracting Type of Anesthesia: General RN Documented Start/Stop Times: Operation Date: 08/15/24 11:00 Case Time Into Pre-Op 08/15/24 09:08 Out of Pre-Op 08/15/24 10:50 Into Recovery 08/15/24 13:17 Procedure Start Time: 11:45 Procedure Stop Time: 13:00 Select all DRAINS/GRAFTS/IMPLANTS that apply: Implanted device Implanted device details: 10-8 x 40 En route Estimated Blood Loss: 16 Specimen collected: No Description of surgery: HPI: Patient is a 74-year-old male with asymptomatic right carotid artery stenosis who presents now for carotid artery stenting via transcarotid approach. Description of procedure: Upon obtaining informed consent and verification correct patient procedure and site the patient was taken to the Quality Assurance Representative where he was placed under general anesthesia. He was then positioned prepped and draped in usual sterile fashion a time was performed. Transverse incision was made 1 fingerbreadth superior to the clavicle centered on the common carotid artery. Bovie was used to dissect at the subcutaneous tissue to the level the platysma which was then divided and self-retaining retractors placed in the wound. Further dissection was carried down to the sternocleidomastoid and the cleft between the sternal and clavicular heads identified and dissected with Bovie and self-retaining retractors moved deeper into the wound. Once the carotid sheath was visualized sharp dissection was used to dissect free the anterior border of the jugular vein present retracted laterally. Sharp dissection was then used to dissect free the proximal common carotid artery and a right angle used to place a vessel loop. 5-0 Prolene pursestring was then placed at the intended access site and the patient heparinized and allowed to circulate for 3 minutes with subsequent heparin dosing based on ACT results. Under ultrasound guidance the right common femoral vein was accessed with a micropuncture needle wire to then exchanged for micropuncture sheath. Through this a J-wire was advanced and the micropuncture sheath exchanged for the 8 [place]ian venous return sheath. Next the carotid artery was accessed in antegrade fashion with a micropuncture needle wire exchanged for micropuncture sheath. Through the micropuncture sheath hand-injection subtraction angiography was performed revealing satisfactory positioning and no extravasation or dissection. This also revealed the carotid bifurcation and lesion location to guidewire and sheath advancement. Through the micropuncture sheath the J-wire is advanced and the micropuncture sheath exchanged for the silk Road flow reversal sheath advanced without resistance. The flow reversal tubing was then attached first to the arterial sheath and then flushed and attached to the venous return sheath with adequate flow reversal observed. Next the proximal common carotid artery was occluded with Vesseloops and adequate flow reversal confirmed. Multiple oblique view subtraction angiography was then performed confirming adequate sheath positioning and position of the lesion. A 1 4 wire was then advanced across the lesion and a silk Road angioplasty balloon 5 x 35 was advanced into the lesion and inflated to nominal then deflated withdrawn. Next an en route tapered 10 to 8 x 40 stent was advanced in the position and deployed followed by 2 minutes of flow reversal. Next subtraction angiography was performed revealing satisfactory stent placement with no extravasation or dissection, no residual stenosis, and no plaque prolapse. The carotid clamp was then released and additional 1 minute of flow reversal performed. The flow reversal tubing was then detached and blood return via the venous sheath. The venous sheath was then withdrawn and manual pressure held for 5 minutes till hemostasis was obtained. The Prolene pursestring suture was then secured as the arterial sheath was withdrawn and satisfactory stasis noted. Heparin was then reversed with protamine and the incision inspected for hemostasis. A 19 [place] channel JEET was then placed via separate stab incision and the incision closed with 3-0 Vicryl, 4 Monocryl and Dermabond for skin. At the conclusion of case the patient was waken anesthesia moving extremities command with cranial nerves intact. The patient was then taken the recovery room with anticipated admission to the intensive care unit for hemodynamic neurologic monitoring. Surgical Findings: see above Complications Complications: No
--- NOTE | 2024-08-15 13:24 | PCM.POST.ANE ---
Anesthesia: Postop Eval I Current Vital Signs Temperature: 97 F Pulse Rate: 55 Blood Pressure: 137/57 Respiratory Rate: 16 Pulse Ox: 99 Oxygen Delivery Method: Room Air Assessment Airway patent: Yes Spontaneous unlabored respirations: Yes Mental status: Awake and Calm nausea: No Vomiting: No Anesthesia Complication: No Fluid Hydration Crystalloid volume administer (ml): 1,500 Total IV fluid infused: 1,500 Progress Note Anesthesia document: Postop Eval 1 completed: Yes
[2024-08-15] MEDS: 0.9% Normal Saline (1000mL) 1,000 ML IV (13:53)
--- NOTE | 2024-08-15 14:08 | POSTOPAN2_ITS ---
Anesthesia Postop Eval I Sum Postop Eval Completion status Anesthesia document: Postop Eval 1 completed: Yes Anesthesia Postop Eval I Summary Anesthesia Postop Eval I Summary: Anesthesia Postop Eval I: Assessment Summary Airway patent Yes 08/15/24 13:25 COMMERCIAL OR INSTITUTIONAL CLEANER.[email or web address] Spontaneous unlabored Yes 08/15/24 13:25 COMMERCIAL OR INSTITUTIONAL CLEANER.GDOTT respirations Mental status Awake,Calm 08/15/24 13:25 COMMERCIAL OR INSTITUTIONAL CLEANER.GDOTT nausea No 08/15/24 13:25 COMMERCIAL OR INSTITUTIONAL CLEANER.GDOTT Vomiting No 08/15/24 13:25 COMMERCIAL OR INSTITUTIONAL CLEANER.GDOTT Anesthesia Postop Eval I: Fluid Summary Crystalloid volume administer 1,500 08/15/24 13:25 COMMERCIAL OR INSTITUTIONAL CLEANER.GDOTT (ml) Colloids volume administered ( ml) Blood Product volume administered (ml) Total IV fluid infused 1,500 08/15/24 13:25 COMMERCIAL OR INSTITUTIONAL CLEANER.GDOTT Anesthesia Postop Eval I: Summary Notes Anesthesia Complication No 08/15/24 13:25 COMMERCIAL OR INSTITUTIONAL CLEANER.GDOTT Anesthesia Complication Comment: Post-operative progress note Anesthesia: Postop Eval II Evaluation Mental status: Awake and Calm Pain Level: 1 nausea: No Vomiting: No Progress Note Post-operative progress note: Patient given 10 mg Hydralazine prior to going to the ICU. Doing well Complications Anesthesia Complication: No
--- NOTE | 2024-08-15 14:08 | PCM.POSTANE2 ---
Anesthesia Postop Eval I Sum Postop Eval Completion status Anesthesia document: Postop Eval 1 completed: Yes Anesthesia Postop Eval I Summary Anesthesia Postop Eval I Summary: Anesthesia Postop Eval I: Assessment Summary Airway patent Yes 08/15/24 13:25 SHEAR GRINDER OPERATOR [email or web address].[email or web address] Spontaneous unlabored Yes 08/15/24 13:25 SHEAR GRINDER OPERATOR HELPER.[email or web address] respirations Mental status Awake,Calm 08/15/24 13:25 SHEAR GRINDER OPERATOR HELPER.[email or web address] nausea No 08/15/24 13:25 SHEAR GRINDER OPERATOR HELPER.GDOTT Vomiting No 08/15/24 13:25 SHEAR GRINDER OPERATOR HELPER.[email or web address] Anesthesia Postop Eval I: Fluid Summary Crystalloid volume administer 1,500 08/15/24 13:25 SHEAR GRINDER OPERATOR HELPER.[email or web address] (ml) Colloids volume administered ( ml) Blood Product volume administered (ml) Total IV fluid infused 1,500 08/15/24 13:25 SHEAR GRINDER OPERATOR HELPER.[email or web address] Anesthesia Postop Eval I: Summary Notes Anesthesia Complication No 08/15/24 13:25 SHEAR GRINDER OPERATOR HELPER.GDOTT Anesthesia Complication Comment: Post-operative progress note Anesthesia: Postop Eval II Evaluation Mental status: Awake and Calm Pain Level: 1 nausea: No Vomiting: No Progress Note Post-operative progress note: Patient given 10 mg Hydralazine prior to going to the ICU. Doing well Complications Anesthesia Complication: No
[2024-08-15] MEDS: hydrALAZINE 20 MG/ML Vial 10 MG IV ×2 (14:09→17:04)
[2024-08-15] MEDS: Labetalol (Prefilled) 20 MG/4 ML Vial 10 MG IV (14:36)
[2024-08-15 15:05] LABS: Bedside Glucose 130 mg/dL (74-106)
[2024-08-15] MEDS: Acetaminophen 500 MG Tablet 1000 MG PO ×2 (16:08→21:05)
[2024-08-15] MEDS: Cefazolin 1 GM/50 ML BAG IV (20:13)
[2024-08-15] MEDS: HYDROmorphone 0.5 MG/0.5 ML SYRINGE IV (21:04)
[2024-08-15] MEDS: Multivitamin (Healthy Eyes) Capsule 1 CAP PO (21:05)
[2024-08-15] MEDS: Omega-3 Acid Ethyl Esters 1 GM Capsule PO (21:05)
[2024-08-15] MEDS: Pravastatin 20 MG Tablet PO (21:05)
[2024-08-15] MEDS: Metoprolol Tartrate 25 MG Tablet PO (21:05)
[2024-08-15 21:27] LABS: Bedside Glucose 159 mg/dL (74-106)
[2024-08-16] VITALS (13 sets, daily range): BP systolic 103–134; BP diastolic 50–80; PULSE 62–76; RESP 11–22; TEMP 36.3–36.8; O2SAT 94–98; BMI 28.9
[2024-08-16] MEDS: Cefazolin 1 GM/50 ML BAG IV (02:40)
[2024-08-16] MEDS: Acetaminophen 500 MG Tablet 1000 MG PO (05:39)
[2024-08-16] MEDS: Levothyroxine 100 MCG Tablet PO (05:39)
[2024-08-16 05:52] LABS: Absolute Lymphocyte Count 0.91 X10^3/uL (0.83-4.51); Absolute Neutrophil Count 6.3 X10^3/uL (2.0-7.7); Basophil# 0.03 X10^3/uL; Basophil% 0.4 % (0-1); Eosinophil# 0.04 X10^3/uL; Eosinophils% 0.5 % (0-5); Hematocrit 29.1 % (40-54); Hemoglobin 9.9 g/dL (13.0-16.5); Lymphocyte # 0.91 X10^3/ul (0.83-4.51); Lymphocyte % 11.3 % (19-41); Mean Corpuscular Hgb 30.1 pg (27.0-32.0); Mean Corpuscular Volume 88.4 fL (80-94); Mean Platelet Vol. 10.5 fl (6.2-12.0); Monocyte# 0.81 X10^3/uL; NRBC Flagged by Analyzer 0 % (0-5); Neutrophil # 6.26 X10^3/uL (2.7-7.7); Neutrophil % 77.6 % (47-70); Platelet Count 208 K/mm3 (150-450); RBC Distribution Width CV 13.5 % (11.6-14.6); RBC Distribution Width SD 43.8 fl (35.1-43.9); Red Blood Count 3.29 M/mm3 (4.6-6.2); White Blood Count 8.1 K/mm3 (4.4-11.0)
[2024-08-16 06:02] LABS: Bedside Glucose 110 mg/dL (74-106)
[2024-08-16] MEDS: Aspirin E.C. 81 MG Tablet PO (08:48)
[2024-08-16] MEDS: Multivitamins,Ther W-Minerals Tablet 1 TABLET PO (08:48)
[2024-08-16] MEDS: Losartan Potassium 100 MG Tablet PO (09:04)
[2024-08-16] MEDS: Multivitamin (Healthy Eyes) Capsule 1 CAP PO (09:04)
[2024-08-16] MEDS: Enoxaparin 40 MG/0.4 ML Syringe SC (09:05)
[2024-08-16] MEDS: Omega-3 Acid Ethyl Esters 1 GM Capsule PO (09:05)
[2024-08-16] MEDS: Metoprolol Tartrate 25 MG Tablet PO (09:05)
[2024-08-16] MEDS: Clopidogrel Bisulfate 75 MG Tablet PO (09:05)
[2024-08-16] MEDS: Fenofibrate 145 MG Tablet PO (09:06)
[2024-08-16] MEDS: Potassium Citrate 10 MEQ TABLET.ER PO (09:06)
[2024-08-16] MEDS: Ezetimibe 10 MG Tablet PO (09:06)
--- NOTE | 2024-08-16 10:45 | PCM.DC.SUM ---
Providers Date of Admission: 08/15/24 Primary Care Physician: JOCELINE Morejon Reason For Visit: RIGHT CAROTIDSTENT IN CATH LBAB WITH RFNA, OR STAF Diagnosis Discharge Diagnosis (1) Stenosis of right carotid artery: Status: Chronic Code(s): I65.21 - Occlusion and stenosis of right carotid artery Medications at Discharge Home Medications zhcwirkc-uch-bernj acid 0.4 mg-lycopene 300 mcg-lutein 250 mcg tablet (Centrum Silver) 1 ea PO DAILY SUPPLEMENT' 01/08/13 potassium citrate 10 mEq (1,080 mg) tablet,extended release (Urocit-K 10) 1,080 mg PO DAILY SUPPLEMENT 05/24/15 fenofibrate nanocrystallized 145 mg tablet 145 mg PO DAILY CHOLESTEROL 10/19/17 ezetimibe 10 mg tablet 10 mg PO DAILY cholesterol 12/06/22 vit C 250 mg-vit E 90 mg-zinc 40 mg-copper 1 vq-plssae-ryoibu capsule (PreserVision AREDS-2) 1 tab PO BID eye health 12/06/22 losartan 100 mg tablet 100 mg PO DAILY blood pressure 04/10/23 aspirin 81 mg tablet,delayed release [facility] #90 tabs 04/13/23 clopidogrel 75 mg tablet 75 mg PO DAILY anti platelet #90 tabs 04/13/23 glipizide 5 mg tablet 5 mg PO DINNER diabetes 04/26/23 THERAWORX See Rx Instructions .Route .COMPLEX 05/18/23 levothyroxine 100 mcg tablet 100 mcg PO MOTUWETHFRSA thyroid 05/18/23 metformin 1,000 mg tablet 1,000 mg PO BID DIABETES 05/18/23 Held on 08/16/24. Instructions: Resume on 08/18/24. metoprolol tartrate 25 mg tablet 25 mg PO BID #180 tabs 06/07/23 pravastatin 20 mg tablet 20 mg PO QHS #90 tabs 06/07/23 omega-3 fatty acids 1,000 mg capsule 1,000 mg PO BID 06/23/24 levothyroxine 100 mcg capsule 150 mcg PO GONZALES 08/01/24 acetaminophen 500 mg tablet 1,000 mg (2 x 500 mg) PO Q8 7 days #0 tabs 08/16/24 oxycodone 5 mg tablet 5 mg PO Q8H PRN PRN Pain Score 4-10 3 days #9 tabs 08/16/24 Hospital Course Summary of Care Provided Hospital Course: Mr. Elia Ferrell is a 74 y/o male who underwent R TCAR 08/15/24, the procedure was without complication and he tolerated it well. Postoperatively, he was routinely admitted to the ICU for ongoing hemodynamic and neurologic monitoring. He has been both hemodynamically and neurologically stable. JEET drain was removed 08/16/24 without issue; he had a lot of oozing around the drain overnight which had slowed by morning and was hemostatic upon drain removal. Incision site satisfactory in appearance without hematoma. R groin puncture site with dressing C/D/I, soft to palpation, minimal ecchymosis. He has tolerated a normal diet, pain is well controlled. He had some dizziness when he first got up after surgery, but this has improved with subsequent ambulation. He is appropriate for discharge home today with planned follow-up in the office on 08/30/24. Physical Exam Const oriented x3 and no apparent distress Eyes EOMs intact bilaterally General Eye: normal appearance of both eyes Neck Neck Narrative: R neck incision site with dermabond intact; no significant edema, soft to palpation, no ecchymosis. Resp normal respiratory effort Cardio regular rate and regular rhythm Extremity normal to inspection Extremity Narrative: R groin puncture site with dressing C/D/I without hematoma Skin no rashes or lesions noted Neuro oriented x3, CN's II-XII intact bilaterally, moves all extremities, no focal motor deficits and no sensory deficits noted Psych mental status grossly normal, affect normal, speech normal and activity/motor behavior normal Appearance: grossly normal Attitude: calm and engaged Weight / BMI Weight Weight: 195 lb 12.328 oz Body Mass Index (BMI) 28.9 ABG / Lab / Microbiology Data 08/16/24 05:45 08/02/24 07:45 Laboratory: Laboratory Results - last 24 hr 08/15/24 09:47: POC Glucose 121 H 08/15/24 10:26: Activated Clotting Time 124 08/15/24 11:01: Activated Clotting Time 233 H 08/15/24 11:11: Activated Clotting Time 245 H 08/15/24 14:48: POC Glucose 130 H 08/15/24 21:03: POC Glucose 159 H 08/16/24 05:37: POC Glucose 110 H 08/16/24 05:45: WBC 8.1, RBC 3.29 L, Hgb 9.9 L, Hct 29.1 L, MCV 88.4, MCH 30.1, MCHC 34.0, RDW Std Deviation 43.8, RDW Coeff of [place] 13.5, Plt Count 208, MPV 10.5, Immature Gran % (Auto) 0.200, Neut % (Auto) 77.6 H, Lymph % (Auto) 11.3 L, [place] % (Auto) 10.0, Eos % (Auto) 0.5, Baso % (Auto) 0.4, Absolute Neuts (auto) 6.3, Absolute Lymphs (auto) 0.91, Nucleated RBC % 0 D/C Instructions Discharge Diet: No restrictions May shower in (days): 1 Weight Bearing Status: Weight bearing as tolerated Lifting Restricted to (Lbs): 20 Lifting Restrictions: Do not lift greater than 20 pounds for 3 weeks Call your doctor if your incision/area has: Continuous Slow Oozing, Sudden Increased Bleeding and Foul Smelling Discharge Call your doctor if you observe: Fever of 101 or Higher and Uncontrolled pain Remove Dressing in: 2 days DC O2, CPAP, BIPAP Needs Home O2 Discharge instructions: No Additional Instructions: INCISION CARE: You have a small bandage on your neck over the site from which the surgical drain was removed and over the R groin puncture site. You may remove both bandages tomorrow. As long as there is no residual drainage, you may leave these sites open to air. If you do notice some continued drainage, you may re-cover with a Band-Aid. Your neck incision site is covered with skin glue which will continue to protect it. The skin glue will peel/flake off on its own over the next few weeks. Please do not pick at it. You may shower tomorrow. It is okay for soap and water to rinse over the incision site, pat to dry. Do not submerge the incision site in water such as to take a bath or go swimming etc. for 3 weeks. MEDICATION INSTRUCTIONS Continue to take Aspirin 81mg daily and Plavix 75mg daily. You have been prescribed oxycodone 5mg tablet to be taken by mouth every 8 hours as needed for pain. You may take this in addition to Tylenol as needed. You should not drive or operate machinery while taking this medication. Do not take this medication in combination with any other prescription pain medications. Call the office at [phone] with any questions about your medications ACTIVITY INSTRUCTIONS Do not lift greater than 20 pounds for 3 weeks. Otherwise, please continue with activity as tolerated. Do not drive until you can turn your head well enough to safely check your blind spots. FOLLOW-UP INSTRUCTIONS You are scheduled for follow-up in the office on 08/30/24. If you need to change this appointment or have any other questions/concerns, please call the office at [phone]. Please Follow Up With: Pauly Mathews PA When: 08/30/24 Meaningful Use Info Meaningful Use Meaningful Use Diagnoses (Choose all that apply): None applicable Ischemic Stroke Statin Dosing Therapy Reference: STATIN DOSE THERAPY REFERENCE: * Patients > 75 years receive moderate or high dose statin therapy. * Patients 75 years or YOUNGER should receive HIGH intensity statin dose unless contraindicated. You will be required to document reason for non-treatment if statin daily dose does not meet guidelines. HIGH DOSE STATIN THERAPY DAILY Atorvastatin > than or = to 40 mg Rosuvastatin > than or = to 20 mg Amlodipine + Atorvastatin > than or = to 2.5/40 mg Ezetimibe + Simvastatin 10/80 mg Simvastatin 80mg Discharge Plan Admission Admit Date/Time: 08/15/24 13:03 Primary Reason for Your Visit: R TCAR Attending Provider: Senthil Noel Primary Care Provider: Mita Zaidi Instructions Additional Instructions / Restrictions: INCISION CARE: You have a small bandage on your neck over the site from which the surgical drain was removed and over the R groin puncture site. You may remove both bandages tomorrow. As long as there is no residual drainage, you may leave these sites open to air. If you do notice some continued drainage, you may re-cover with a Band-Aid. Your neck incision site is covered with skin glue which will continue to protect it. The skin glue will peel/flake off on its own over the next few weeks. Please do not pick at it. You may shower tomorrow. It is okay for soap and water to rinse over the incision site, pat to dry. Do not submerge the incision site in water such as to take a bath or go swimming etc. for 3 weeks. MEDICATION INSTRUCTIONS Continue to take Aspirin 81mg daily and Plavix 75mg daily. You have been prescribed oxycodone 5mg tablet to be taken by mouth every 8 hours as needed for pain. You may take this in addition to Tylenol as needed. You should not drive or operate machinery while taking this medication. Do not take this medication in combination with any other prescription pain medications. Call the office at [phone] with any questions about your medications ACTIVITY INSTRUCTIONS Do not lift greater than 20 pounds for 3 weeks. Otherwise, please continue with activity as tolerated. Do not drive until you can turn your head well enough to safely check your blind spots. FOLLOW-UP INSTRUCTIONS You are scheduled for follow-up in the office on 08/30/24. If you need to change this appointment or have any other questions/concerns, please call the office at [phone]. Discharge Orders/Prescriptions Prescriptions: New acetaminophen 500 mg Tablet 1,000 mg PO Q8 7 Days Qty: 0 0RF oxycodone 5 mg Tablet 5 mg PO Q8H PRN PRN (Reason: Pain Score 4-10) 3 Days Qty: 9 0RF Continued omega-3 fatty acids 1,000 mg capsule 1,000 mg PO BID Centrum Silver 1 EACH tablet 1 ea PO DAILY potassium citrate [Urocit-K 10] 10 MEQ tablet extended release 1,080 mg PO DAILY fenofibrate nanocrystallized 145 tablet 145 mg PO DAILY Patient Comments: ezetimibe 10 mg tablet 10 mg PO DAILY PreserVision AREDS-2 250-90-40-1 mg capsule 1 tab PO BID glipizide 5 mg tablet 5 mg PO DINNER losartan 100 mg tablet 100 mg PO DAILY aspirin 81 mg Tablet,Delayed Release (Dr/Ec) 81 mg PO DAILYCM 90 Days Qty: 90 0RF Patient Comments: REFER TO DR. MATHEWS RE: STOPPING PRE-OP levothyroxine 100 mcg tablet 100 mcg PO MOTUWETHFRSA Rx Instructions: take in am THERAWORX foam See Rx Instructions .ROUTE .COMPLEX Rx Instructions: APPLY TO MUSCLE CRAMPS NEEDED; levothyroxine 100 mcg capsule 150 mcg PO GONZALES clopidogrel 75 mg tablet 75 mg PO DAILY Qty: 90 3RF Patient Comments: REFER PT TO RE: STOPPING PRE-OP metoprolol tartrate 25 mg tablet 25 mg PO BID Qty: 180 3RF pravastatin 20 mg tablet 20 mg PO QHS Qty: 90 3RF Held metformin 1,000 mg tablet 1,000 mg PO BID Hold Instructions: Resume on 08/18/24. Referrals / Follow Up: Mita Zaidi NP-C [Primary Care Provider] - Disposition Disposition (needs filled in before D/C Order can be placed): Home, Self Care Charges/Coding Procedures Integumentary [id number]: [id number] Global Visit
--- NOTE | 2024-08-16 11:29 | CASEMGMT ---
BONNIE MELENDREZ Assessment Face to Face with patient for initial transition planning/care coordination assessment. BONNIE MELENDREZ introduced self and role at [facility], pt voices understanding. Pt is A&Ox4 and is resting comfortably in the chair and is calm. Pt's at bedside. Care providers, pharmacy, and demographics verified. Admitting dx: Rt Carotid Stent LACE Strata: 2 PCP: Mita Zaidi Specialists: Sadie DELGADO (Vascular), Dr. Velazquez (Nephrology) Preferred Pharmacy: [facility] Insurance: [employer] A/B, [employer] Commercial Prescription Benefit: Yes LNOK: Anabelle (W), Kiana (Daughter) Living Arrangements: Pt lives with his in a single story home with one step to enter ADLs/IADLs: Pt states that he is entirely independent and denies further therapy needs Transportation: Self, DME: CPAP @ [facility] with no additional oxygen. BGM with sufficient supplies. Cane. BP Machine. HHC/SNF: Denies hx or needs Pt?s goal: Home Plan: Home with pt's and no additional needs identified. Pt plans to f/u with vascular as an OP on 08/30. Pt denies further questions or concerns at this time and states that he feels safe returning home today with his . Pt RN notified. Latonia Raines RN, CM
[2024-08-16] MEDS: Insulin Lispro 100 UNIT/ML INSULN.PEN SC (11:30)
[2024-08-16 11:51] LABS: Bedside Glucose 171 mg/dL (74-106)
== END 2024-08-16 12:08 | disposition home or self-care (01) | DRG 36 ==
LOC: ICU 14:18 → SDC 14:18 → ICU 14:18
PROVIDERS: Admitting Provider Surgery Trauma Surgery; PCP Nurse Practitioner Family; Referring Provider Surgery Trauma Surgery; Visit Provider Surgery Trauma Surgery
PROC: 037H3DZ Dilation of Right Common Carotid Artery with Intraluminal Device, Percutaneous Approach (ICD-10-PCS; CPT 37236; principal; 2024-08-15 10:30)
DX: I65.21 Occlusion and stenosis of right carotid artery (principal); E03.9 Hypothyroidism, unspecified; E78.00 Pure hypercholesterolemia, unspecified; I25.10 Atherosclerotic heart disease of native coronary artery without angina pectoris; Z95.5 Presence of coronary angioplasty implant and graft; Z90.49 Acquired absence of other specified parts of digestive tract
CPT/HCPCS: 36415; 37215; 76937; 80048; 82962; 85025; 85347; 94668; 99252; A4648; C1725; C1769; C1876; C1884; C1894; G0463; J2405

== ENCOUNTER → 2024-09-06 | Outpatient (CLI) | payer MEDICARE, OTHER, SELFPAY ==
[2023-08-12 10:42] VITALS: BMI 27.0
--- OUTSIDE RECORDS SUMMARY | 2024-09-06 07:36 | XMS RPT_ITS | CCD ---
Author Organization [facility] Care Team Providers Care Cloth Trimmer Hand Name Role Phone Andrew Calle MD Primary Care Provider DO Love Crowley Primary Care Provider MD Hal Rivas Emergency Provider Dr. Markell Mitchellit Provider Dr. Markell Mitchell Attending Provider Dr. Markell Mitchell Other Provider Dr. Marty Feliciano Attending Provider Dr. Gil Mcclelland Other Provider Dr. Gil Mcclelland Attending Provider RADHA La Attending Provider Dr. Markell Mitchell Referring Provider DO Love Crowley Referring Provider DO Love Crowley Primary Care Provider MD Hal Rivas Emergency Provider Dr. Markell Mitchellit Provider Dr. Markell Mitchell Attending Provider Dr. Markell Mitchell Other Provider Dr. Markell Mitchell Referring Provider Dr. Marty Feliciano Attending Provider Dr. Gil Mcclelland Other Provider Dr. Gil Mcclelland Attending Provider RADHA La Attending Provider DO Love Crowley Referring Provider Mindi Cohen Attending Provider Unavailable Natalie, Dr. Berrios Attending Provider Dr. Yash Estrada Other Provider Dejuan, SUPERVISOR TITLE-C Mita Primary Care Provider Dejuan, SUPERVISOR TITLE-C Mita Referring Provider DO Love Crowley Primary Care Provider Dr. Markell Mitchell Attending Provider Dr. Nicanor Martinez Emergency Provider Roosevelt, Dr. Soriano Admit Provider Roosevelt, Dr. Soriano Attending Provider Roosevelt, Dr. Soriano Other Provider Dr. Tereza Tolentino Attending Provider Dr. Tereza Tolentino Other Provider Dr. Romie Tuttle Attending Provider Unavailable Dr. Romie Tuttle Other Provider Unavailable Michell Wheat Attending Provider Unavailable Dr. Eamon Cortez Attending Provider DO Love Crowley Primary Care Provider Femi HUFFMAN, SUPERVISOR TITLEBrittonC Michell Attending Provider Dr. Senthil Hsieh Emergency Provider Dr. Gil Mcclelland Admit Provider Dr. Gil Mcclelland Other Provider Dr. Markell Humphrey Attending Provider Dr. Markell Humphrey Other Provider Dr. Gil Mcclelland Attending Provider Dejuan, SUPERVISOR TITLE-C Mita Primary Care Provider Dr. Nicanor Martinez Emergency Provider Roosevelt, Dr. Soriano Admit Provider Roosevelt, Dr. Soriano Attending Provider Roosevelt, Dr. Soriano Other Provider Dr. Tereza Tolentino Attending Provider Dr. Tereza Tolentino Other Provider Dr. Romie Tuttle Attending Provider Unavailable Dr. Romie Tuttle Other Provider Unavailable Dr. Eamon Cortez Attending Provider Michell Wheat Attending Provider Unavailable Dejuan, SUPERVISOR TITLE-C Mita Referring Provider Femi SUPERVISOR TITLE, SUPERVISOR TITLE-C Michell Attending Provider Dr. Senthil Hsieh Emergency Provider Dr. Gil Mcclelland Admit Provider Dr. Gil Mcclelland Other Provider Dr. Markell Humphrey Attending Provider Dr. Markell Humphrey Other Provider Dr. Gil Mcclelland Attending Provider Dejuan, SUPERVISOR TITLE-C Mita Primary Care Provider Dr. Nicanor Martinez Emergency Provider [phone] Dr. Bo Albert Admit Provider Dr. Bo Albert Other Provider Dr. Tereza Tolentino Other Provider Dr. Bo Albert Attending Provider Dejuan SUPERVISOR TITLE, Mita Primary Care Provider Dejuan SUPERVISOR TITLE-C, Mita Primary Care Provider Dejuan SUPERVISOR TITLE-C, Mita Attending Provider Dejuan SUPERVISOR TITLE-C, Mita Referring Provider Dr. Yousif Bettencourt MD Attending Provider Dr. Siria Velazquez DO Attending Provider Roof SUPERVISOR TITLE-C, Jose Manuel H Attending Provider jA SUPERVISOR TITLE-C, Jose Manuel H Referring Provider Dr. Senthil Noel MD Attending Provider Dejuan SUPERVISOR TITLE-C, Mita Primary Care Provider [phone] Dejuan SUPERVISOR TITLE-C, Mita Attending Provider Dejuan SUPERVISOR TITLE-C, Mita Referring Provider [phone] Bisi PA, Pauly Attending Provider [phone] Bisi PA, Pauly Referring Provider [phone] Dejuan SUPERVISOR TITLE-C, Mita Primary Care Provider [phone] Dejuan SUPERVISOR TITLE-C, Mita Attending Provider Sadie SOLER, Dr. Ndiaye Referring Provider [phone] Sadie SOLER, Dr. Ndiaye Other Provider [phone] Sadie SOLER, Dr. Ndiaye Admit Provider [phone] Dejuan SUPERVISOR TITLE-C, Mita Primary Care Provider [phone] Dejuan SUPERVISOR TITLE-C, Mita Referring Provider Dejuan, Mita Primary Care Unavailable Roof SUPERVISOR TITLE, Jose Manuel H Referring Unavailable Mathews, Pauly Attending Unavailable Dejuan, Mita Primary Care Unavailable Sadie, Senthil Attending Unavailable Roof SUPERVISOR TITLE, Jose Manuel H Referring Unavailable Dejuan, Mita Primary Care Unavailable [place], Senthil Consulting Unavailable [place], Senthil Admitting Unavailable Sadie, Senthil Referring Unavailable Mathews, Pauly Attending Unavailable Dejuan, Mita Referring Unavailable Roof SUPERVISOR TITLE, Jose Manuel H Attending Unavailable Dejaun, Mita Primary Care Unavailable Dejuan, Mita Attending Unavailable Dejuan, Mita Primary Care Unavailable Dejuan, Mita Primary Care Unavailable Ian Bernal Attending Unavailable Siria Velazquez Attending Unavailable Dejuan, Mita Primary Care Unavailable Dejuan, Mita Primary Care Unavailable Roof SUPERVISOR TITLE, Jose Manuel H Attending Unavailable Roof SUPERVISOR TITLE, Jose Manuel H Referring Unavailable Dejuan, Mita Primary Care Unavailable [place], Senthil Consulting Unavailable [place], Senthil Referring Unavailable Sadie, Senthil Attending Unavailable Dejuan, Mita Primary Care Unavailable Dejuan, Mita Referring Unavailable Kahn SUPERVISOR TITLE, Michell Attending Unavailable Yousif Bettencourt Attending Unavailable Dejuan, Mita Primary Care Unavailable Dejuan, Mita Primary Care Unavailable Mathews, Pauly Referring Unavailable Mathews, Pauly Attending Unavailable Laxmi Guzman Consulting Unavailable Dejuan, Mita Primary Care Unavailable Tone Horton Referring Unavailable [place], Tone Attending Unavailable Femi HUFFMAN, Michell Consulting Unavailable Dragan, Erlin Referring Unavailable Dragan, Erlin Attending Unavailable Dejuan, Mita Primary Care Unavailable Dejuan, Mita Primary Care Unavailable [place], Tone Referring Unavailable [place], Tone Attending Unavailable Dejuan, Mita Primary Care Unavailable Sadie, Senthil Admitting Unavailable Sadie, Senthil Referring Unavailable [place], Senthil Attending Unavailable Dejuan, Mita Attending Unavailable Dejuan, Mita Referring Unavailable Dejuan, Mita Primary Care Unavailable Dejuan, Mita Primary Care Unavailable [place], Tone Attending Unavailable Dejuan, Mita Primary Care Unavailable Mathews, Pauly Attending Unavailable Mathews, Pauly Referring Unavailable Dejuan, Mita Primary Care Unavailable Dejuan, Mita Referring Unavailable Bettencourt, Yousif Attending Unavailable Dejuan, Mita Attending Unavailable Dejuan, Mita Referring Unavailable Dejuan, Mita Primary Care Unavailable Dejuan, Mita Primary Care Unavailable Diego, Eamon Attending Unavailable Dejuan, Mita Primary Care Unavailable Sadie, Senthil Attending Unavailable Dejuan, Mita Referring Unavailable Dejuan, Mita Referring Unavailable Bettencourt, Yousif Attending Unavailable Dejuan, Mita Primary Care Unavailable Dejuan, Mita Primary Care Unavailable Dejuan, Mita Referring Unavailable Mathews, Pauly Attending Unavailable Allergies Allergy Classification Reported Allergen(s) Allergy Type Date of Onset Reaction(s) Facility (20 sources) Dsrtnuj-Hav-Upe Reductase Inhibitor; Translations: [Jytudba-Ivv-Saf Reductase Inhibitor] Propensity to adverse reactions 9 Abd cramps/diarrhea , leg cramps [facility] (3 sources) atorvastatin Drug Allergy 1 Other: See Comments [facility] (3 sources) Dust Propensity to adverse reactions 5 Intolerance [facility] Work Phone: (2 sources) HMG-CoA reductase inhibitor Drug Intolerance 4 Other: See Comments [facility] (3 sources) Niacin Drug Allergy 7 GI Upset [facility] Work Phone: (3 sources) Pravastatin Drug Allergy 1 Other: See Comments [facility] (3 sources) rosuvastatin Drug Allergy 1 Other: See Comments [facility] (3 sources) Simvastatin Drug Allergy 1 Other: See Comments [facility] (3 sources) Homeopathic Products Propensity to adverse reactions 5 Intolerance [facility] Work Phone: (1 source) HMG-CoA reductase inhibitor Drug Intolerance 4 Other: See Comments [facility] Medications Current Medications Medication Drug Class(es) Dates Sig (Normalized) Sig (Original) acetaminophen 500 mg oral tablet (2 sources) Start: 08-16-2024 take 2 tablets by mouth every eight hours Acetaminophen 500 mg Tablet Active 1000 mg PO EVERY 8 HOURS 0 7 August 16, 2024 12:00am Allantoin (9 sources) Start: 05-18-2023 THERAWORX Active 0 .ROUTE .COMPLEX May 18, 2023 1:00am APPLY TO MUSCLE CRAMPS NEEDED; Start: 05-18-2023 THERAWORX Acti ve 0 .ROUTE .COMPLEX May 18, 2023 12:00am APPLY TO MUSCLE CRAMPS NEEDED; aspirin 81 mg delayed release oral tablet (20 sources) Platelet Aggregation Inhibitor, Nonsteroidal Anti-inflammatory Drug Start: 04-13-2023 take 1 tablet by mouth once daily at mealtime Aspirin 81 mg Tablet,Delayed Release (Dr/Ec) Active 81 mg PO DAILY WITH MEALS 90 90 April 13, 2023 1:00am Start: 10-19-2017 End: 12-06-2022 Aspirin (Lo-Dose Aspirin Ec) 81 MG tablet,delayed release (DR/EC) Discontinued 81 mg PO DAILY October 19, 2017 12:00am December 06, 2022 7:34pm WILL STOP 7 DAYS PRIOR TO SURGERY Start: 11-18-2010 End: 06-05-2015 take 1 tablet by mouth once daily Aspirin 81 MG Tab.Chew Discontinued 81 mg PO DAILY@0800 March 08, 2014 1:00am June 05, 2015 11:20am Comment on above: Take 1 tablet by razia th once daily. CENTRUM SILVER TAB (3 sources) Start: 5 CENTRUM SILVER TAB Take one(1) tablet daily. otc 0 03/31/2005 Active Comment on above: Take one(1) tablet d aily. clopidogrel 75 mg oral tablet (20 sources) P2Y12 Platelet Inhibitor Start: 4 End: 4 take 1 tablet by mouth once daily Clopidogrel 75 mg tablet Active 75 mg PO DAILY April 13, 2023 5:24pm COMPOUNDED PRESCRIPTION (3 sources) Start: 1 COMPOUNDED PRESCRIPTION omega red - taking one daily 0 06/02/2010 Active Comment on above: omega red - taking o ne daily CPAP (3 sources) Start: 9 CPAP Indications: Obstructive sleep apnea syndrome Initiate CPAP at same pressure of current machine. Mask (per patient preference) optional chin strap (if indicated) , filters, tubing, humidifier and lifetime supplies. 1 Device 0 07/20/2018 Active Comment on above: Initiate CPAP at treva e pressure of current machine. Mask (per patient preference) optional chin strap (if indicated) , filters, tubing, humidifier and lifetime supplies. ezetimibe 10 mg oral tablet (20 sources) Dietary Cholesterol Absorption Inhibitor Start: take 1 tablet by mouth once daily Ezetimibe 10 mg tablet Active 10 mg PO DAILY December 06, 2022 12:00am Start: 03-18-2021 End: 09-09-2021 take 10 mg by mouth once daily Ezetimibe Active 10 MG PO DAILY December 06, 2022 12:00am Comment on above: Take 1 tablet by razia th once daily. fenofibrate 145 mg oral tablet (20 sources) Peroxisome Proliferator Receptor alpha Agonist Start: 10-20-19 18 Fenofibrate Nanocrystallized 145 tablet Active 145 mg PO DAILY October 19, 2017 12:00am Comment on above: Take 1 tablet by razia th once daily. glipiZIDE 5 mg oral tablet (20 sources) Sulfonylurea Start: 04-26-19 End: 04-26-19 take 1 tablet by mouth at dinner Glipizide 5 mg tablet Active 5 mg PO WITH DINNER April 26, 2023 4:09pm Start: 12-06-2022 End: 04-26-2023 take 2.5 mg by mouth at dinner Glipizide 5 mg tablet Discontinued 2.5 mg PO WITH DINNER December 06, 2022 12:00am April 26, 2023 3:55pm Start: 12-06-2022 End: 04-26-2023 take 2.5 mg by mouth at dinner Glipizide Active 2.5 MG PO WITH DINNER April 26, 2023 4:09pm Start: 03-18-2021 End: 09-09-2021 take 0.5 tablet by mouth once daily glipiZIDE (GLUCOTROL) 5 mg tablet Indications: Diabetes mellitus type II (HCC) Take 0.5 tablets by mouth once daily. 45 tablet 1 09/09/2021 Active Comment on above: Take 0.5 tablets by mouth once daily. levothyroxine sodium 0.1 mg oral capsule (20 sources) l-Thyroxine Start: 08-01-2024 Levothyroxine 100 mcg capsule Active 150 ug PO GONZALES August 01, 2024 12:00am Start: 06-23-2021 take 1 tablet by razia th in the morning Levothyroxine 100 mcg tablet Active 100 ug PO MOTUWETHFRSA May 18, 2023 1:00am take in am Start: 01-08-2013 End: 05-18-2023 Levothyroxine 75 MCG tablet Discontinued 100 ug PO DAILY January 08, 2013 12:00am May 18, 2023 12:03pm Start: 01-08-2013 End: 05-18-2023 take 100 ug by mouth once daily Levothyroxine Disconti nued 100 MCG PO DAILY January 08, 2013 12:00am May 18, 2023 12:03pm Comment on above: Take 1 tablet by razia th once daily. Take on empty stomach. For Thyroid. losartan potassium 100 mg oral tablet (20 sources) Angiotensin 2 Receptor Gian Start: 04-10-2023 take 1 tablet by mouth once daily Losartan 100 mg tablet Active 100 mg PO DAILY April 10, 2023 1:00am Start: 12-06-2022 End: 04-10-2023 take 1 tablet by mouth once daily Losartan 25 mg tablet Discontinued 25 mg PO DAILY December 06, 2022 12:00am April 10, 2023 10:46am metFORMIN hydrochloride 1000 mg oral tablet (20 sources) Biguanide Start: 06-23-2021 take 1 tablet by mouth twice daily Metformin 1,000 mg tablet Active 1000 mg PO TWICE A DAY May 18, 2023 1:00am On Hold: Resume on 08/18/24. Start: 01-08-2013 End: 05-18-2023 take 2 tablets by mouth twice daily Metformin 500 MG tablet Discontinued 1000 mg PO TWICE A DAY January 08, 2013 12:00am May 18, 2023 12:05pm Start: 01-08-2013 End: 05-18-2023 take 1000 mg by mouth twice daily Metformin Discontinued 1000 MG PO TWICE A DAY January 08, 2013 12:00am May 18, 2023 12:05pm Start: 01-08-2013 take 1000 mg by mout h once daily Metformin Active 1000 MG PO DAILY January 08, 2013 12:00am Comment on above: Take 1 tablet by razia th twice daily with meals. metoprolol tartrate 25 mg oral tablet (20 sources) beta-Adrenergic Gian Start: 05-19-2023 End: 06-07-2023 take 1 tablet by mouth twice daily Metoprolol Tartrate 25 mg tablet Active 25 mg PO TWICE A DAY 180 June 07, 2023 10:01am Rbgqyedb-Rsv-Bt-Lycop en-Lutein (Centrum Silver) 1 EACH tablet (20 sources) Start: 01-08-2013 take 1 tablet by mouth once daily Mdsmtyav-Lwd-Xd-Lyco pen-Lutein (Centrum Silver) 1 EACH tablet Active 1 EACH PO DAILY January 08, 2013 10:54am Start: 01-08-2013 take 1 tablet by razia th once daily Yosuxzvq-Jok-Cb-Lycopen-Lutein (Centrum Silver) 1 EACH tablet Active 1 NMA PO DAILY January 08, 2013 12:00am Start: 01-08-2013 take 1 tablet by razia th once daily Vetbyouq-Tqd-Lg-Lycopen-Lutein (Centrum Silver) 1 EACH tablet Active 1 EACH PO DAILY January 07, 2013 11:00pm Start: 01-08-2013 take 1 tablet by razia once daily Khgmrcoe-Wbk-Mx-Lycopen-Lutein (Centrum Silver) 1 EACH tablet Active 1 EACH PO DAILY January 08, 2013 12:00am [place] 0-Rgp-Cig-Fish Oil (Fi sh Oil) 500 MG Capsule. (8 sources) Start: 05-24-2015 [place] 3-Dha-Ep a-Fish Oil (Fish Oil) 500 MG Capsule. Active 1000 MG PO DAILY May 24, 2015 3:52pm WILL STOP 7 DAYS PRIOR TO SURGERY Start: 05-24-2015 [place] 3-Dha-Ep a-Fish Oil (Fish Oil) 500 MG Capsule. Active 1000 MG PO DAILY May 24, 2015 12:00am WILL STOP 7 DAYS PRIOR TO SURGERY Start: 05-24-2015 [place] 3-Dha-Ep a-Fish Oil (Fish Oil) [address]aps[address] Active 1000 MG PO DAILY May 24, 2015 1:00am WILL STOP 7 DAYS PRIOR TO SURGERY [place]-3 Fatty Acids 1,000 mg capsule (4 sources) Start: 06-23-2024 take 1 capsule by mouth twice daily [place]-3 Fatty Acids 1,000 mg capsule Active 1000 mg PO TWICE A DAY June 23, 2024 12:00am Start: 06-23-2024 take 1 capsule by mo [facility] once daily [place]-3 Fatty Acids 1,000 mg capsule Discontinued 1000 mg PO daily June 23, 2024 12:00am potassium citrate 10 meq extended release oral tablet (20 sources) Start: 05-24-2015 take 10 tablets by mouth once daily Potassium Citrate (Urocit-K 10) 10 MEQ tablet extended release Active 1080 mg PO DAILY May 24, 2015 1:00am Start: 05-24-2015 Potassium Citr ate (Urocit-K 10) 10 MEQ tablet extended release Active 10 MEQ PO DAILY May 24, 2015 12:00am Comment on above: Take 1 tablet by razia once daily pravastatin sodium 20 mg oral tablet (20 sources) HMG-CoA Reductase Inhibitor Start: End: 4 take 1 tablet by mouth at bedtime Pravastatin 20 mg tablet Active 20 mg PO AT BEDTIME 90 June 07, 2023 10:01am THERAWORX foam (5 sources) Start: 4 THERAWORX foam Active 0 .ROUTE .COMPLEX May 18, 2023 1:00am APPLY TO MUSCLE CRAMPS NEEDED; Vit A,C And S-Akemga-Oyljrnmr (Ocuvite With Lutein) 1 EACH tablet (20 sources) Start: 4 take 1 tablet by mouth once daily Vit A,C And M-Plvabi-Nkybvymq (Ocuvite With Lutein) 1 EACH tablet Active 1 EACH PO DAILY March 08, 2014 11:16am Start: 03-08-2014 End: 12-06-2022 take 1 tablet by mouth once daily Vit A,C And F-Fzowyl-Fqnhkdlt (Ocuvite With Lutein) 1 EACH tablet Discontinued 1 NMA PO DAILY March 08, 2014 1:00am December 06, 2022 9:47pm Start: 03-08-2014 End: 12-06-2022 take 1 tablet by mouth once daily Vit A,C And G-Mydndc-Tcdrewbj (Ocuvite With Lutein) 1 EACH tablet Discontinued 1 EACH PO DAILY March 08, 2014 12:00am December 06, 2022 8:47pm Start: 03-08-2014 End: 12-06-2022 take 1 tablet by mouth once daily Vit A,C And N-Ajgzro-Bysyaxbm (Ocuvite With Lutein) 1 EACH tablet Discontinued 1 EACH PO DAILY March 08, 2014 1:00am December 06, 2022 9:47pm Start: 03-08-2014 take 1 tablet by razia th once daily Vit A,C And F-Zldpkb-Hzswxzxv (Ocuvite With Lutein) 1 EACH tablet Active 1 EACH PO DAILY March 08, 2014 12:00am Start: 03-08-2014 take 1 tablet by razia th once daily Vit A,C And C-Lynayo-Dsfqyooo (Ocuvite With Lutein) 1 EACH tablet Active 1 EACH PO DAILY March 08, 2014 1:00am vit A/vit C/vit E/zinc/copper (PRESERVISION AREDS ORAL) (3 sources) vit A/vit C/vit E/zinc/copper (PRESERVISION AREDS ORAL) Take by mouth. 0 Active Comment on above: Take by mouth. Vit C,B-Ec-Brqdn-Lutein-Leonid param (Preservision Areds-2) 250-90-40-1 mg capsule (20 sources) Start: take 2 capsules by mouth twice daily Vit C,H-Ef-Tmcae-Lutein-Ze axan (Preservision Areds-2) 250-90-40-1 mg capsule Active 1 {tbl} PO TWICE A DAY December 06, 2022 12:00am Start: 12-06-2022 Vit C,E-Zn-[employer] eq-Nfbggi-Zfirnp (Preservision Areds-2) 250-90-40-1 mg capsule Active 1 TABLET PO TWICE A DAY December 05, 2022 11:00pm Start: 12-06-2022 Vit C,E-Zn-[employer] mq-Qitnyi-Fmwirv (Preservision Areds-2) 250-90-40-1 mg capsule Active 1 TABLET PO TWICE A DAY December 06, 2022 12:00am Completed/Discontinued Medications Medication Drug Class(es) Dates Sig (Normalized) Sig (Original) acetaminophen 325 mg / HYDROcodone bitartrate 5 mg oral tablet (20 sources) Opioid Agonist Start: 11-30-2018 End: 12-05-2018 Hydrocodone-Acetami nophen 1 EACH tablet Discontinued 1 NMA PO EVERY 4 HOURS NEEDED as needed for Pain 14 November 30, 2018 December 04, 2018 12:00am December 05, 2018 12:08am Start: 11-30-2018 End: 12-05-2018 Hydrocodone-Acetaminophen Di scontinued 1 EACH PO EVERY 4 HOURS NEEDED 14 November 30, 2018 December 04, 2018 11:08pm ascorbic acid 500 mg extended release oral tablet (20 sources) Vitamin C Start: 02-11-2023 End: 04-10-2023 take 1 tablet by mouth once daily Ascorbic Acid (Vitamin C) (C-500) 500 mg tablet extended release Discontinued 500 mg PO DAILY February 11, 2023 1:00am April 10, 2023 10:41am bisoprolol fumarate 2.5 mg / hydroCHLOROthiazide 6.25 mg oral tablet (20 sources) Thiazide Diuretic, beta-Adrenergi c Gian Start: 05-24-2015 End: 12-06-2022 Bisoprolol-Hydroch lorothiazide 1 EACH tablet Discontinued 1 NMA PO DAILY May 24, 2015 1:00am December 06, 2022 7:36pm Start: 05-24-2015 End: 12-06-2022 Bisoprolol-Hydrochlorothiazi de Discontinued 1 EACH PO DAILY May 24, 2015 1:00am December 06, 2022 7:36pm Comment on above: Take 1 tablet by [facility] once daily. cholecalciferol 0.05 mg oral capsule (20 sources) Vitamin D Start: 023 End: Cholecalciferol (Vitamin D3) (D3-2000) 50 mcg (2,000 unit) capsule Discontinued 50 ug PO DAILY February 11, 2023 1:00am June 02, 2023 2:51pm ciprofloxacin 500 mg oral tablet (20 sources) Quinolone Antimicrobial Start: 019 End: take 1 tablet by mouth twice daily Ciprofloxacin Hcl 500 MG tablet Discontinued 500 mg PO TWICE A DAY November 30, 2018 12:00am December 06, 2022 7:35pm Cyanocobalamin-Liver Extract (18 sources) Start: 023 End: take 1 tablet by mouth once daily Cyanocobalamin-Liver Extract Discontinued 1 TABLET PO DAILY February 11, 2023 1:00am April 10, 2023 10:42am Start: 02-11-2023 End: 04-10-2023 take 1 tablet by mouth once daily Cyanocobalamin-Liver Extract Discontinued 1 TABLET PO DAILY February 11, 2023 12:00am April 10, 2023 9:42am Start: 02-11-2023 take 1 tablet by razia th once daily Cyanocobalamin-Liver Extract Active 1 TABLET PO DAILY February 11, 2023 12:00am Cyanocobalamin-Liver Extract tablet (5 sources) Start: 02-11-2023 End: 04-10-2023 Cyanocobalamin-Liver Extract tablet Discontinued 1 {tbl} PO DAILY February 11, 2023 1:00am April 10, 2023 10:42am docusate sodium 100 mg oral capsule (20 sources) Start: 11-30-2018 End: 12-06-2022 take 1 capsule by mouth twice daily Docusate Sodium 100 MG capsule Discontinued 100 mg PO TWICE A DAY November 30, 2018 12:00am December 06, 2022 7:38pm naproxen sodium 220 mg oral tablet (20 sources) Nonsteroidal Anti-inflammato ry Drug Start: 03-08-2014 End: 06-05-2015 take 1 tablet by mouth every twelve hours as needed for pain Naproxen Sodium (Aleve) 220 MG tablet Discontinued 220 mg PO EVERY 12 HOURS NEEDED as needed for Pain March 08, 2014 1:00am June 05, 2015 11:20am [place] 8-Uku-Zng-Fish Oil (Fish Oil) 500 MG capsule,delayed release(DR/EC) (20 sources) Start: 05-24-2015 End: 05-19-2023 [place] 1-Xes-Exr-Fish Oil (Fish Oil) 500 MG capsule,delayed release(DR/EC) Discontinued 1000 mg PO TWICE A DAY May 24, 2015 1:00am May 19, 2023 10:42am Start: 05-24-2015 End: 05-19-2023 [place] 3-Iea-Xqz-Fish Oil (Fi sh Oil) 500 MG capsule,delayed release(DR/EC) Discontinued 1000 MG PO TWICE A DAY May 24, 2015 1:00am May 19, 2023 10:42am Start: 05-24-2015 End: 05-19-2023 [place] 3-Wrq-Vmj-Fish Oil (Fi sh Oil) 500 MG capsule,delayed release(DR/EC) Discontinued 1000 MG PO TWICE A DAY May 24, 2015 12:00am May 19, 2023 9:42am Start: 05-24-2015 [place] 3-Dha-Ep a-Fish Oil (Fish Oil) 500 MG capsule,delayed release(DR/EC) Active 1000 MG PO TWICE A DAY May 24, 2015 12:00am Start: 05-24-2015 [place] 3-Dha-Ep a-Fish Oil (Fish Oil) 500 MG capsule,delayed release(DR/EC) Active 1000 MG PO TWICE A DAY May 24, 2015 1:00am Start: 05-24-2015 [place] 3-Dha-Ep a-Fish Oil (Fish Oil) 500 MG capsule,delayed release(DR/EC) Active 1000 MG PO DAILY May 24, 2015 1:00am WILL STOP 7 DAYS PRIOR TO SURGERY oxyCODONE hydrochloride 5 mg oral tablet (2 sources) Opioid Agonist Start: 08-16-2024 End: 08-30-2024 take 1 tablet by mouth every eight hours as needed for pain Oxycodone 5 mg Tablet Discontinued 5 mg PO EVERY 8 HOURS NEEDED as needed for Pain Score 4-10 9 3 August 16, 2024 August 30, 2024 1:24pm potassium chloride 10 meq extended release oral tablet (14 sources) Start: 05-18-2023 End: 05-18-2023 take 1 tablet by mouth once daily Potassium Chloride 10 mEq tablet extended release Discontinued 10 meq PO DAILY May 18, 2023 1:00am May 18, 2023 12:11pm sulfamethoxazole 800 mg / trimethoprim 160 mg oral tablet (5 sources) Dihydrofolate Reductase Inhibitor Antibacterial, Sulfonamide Antimicrobial Start: 04-20-2024 End: 06-12-2024 Sulfamethoxazole- Trimethoprim 800-160 mg tablet Discontinued 1 {tbl} PO TWICE A DAY April 20, 2024 1:00am June 12, 2024 10:45am traMADol hydrochloride 50 mg oral tablet (20 sources) Opioid Agonist Start: 12-08-2022 End: 12-22-2022 take 1 tablet by mouth every six hours as needed for pain Tramadol 50 mg Tablet Discontinued 50 mg PO EVERY 6 HOURS NEEDED as needed for Pain Score 4-10 8 2 December 08, 2022 12:00am December 22, 2022 9:54am Problems Active Problems Problem Classification Problem Date Documented Da te Episodic/Chronic Abdominal pain (20 sources) Epigastric pain; Translations: [Epigastric pain] 11-30-2022 Episodic Acute myocardial infarction (20 sources) Myocardial infarction; Translations: [ST elevation (STEMI) myocardial infarction involving right coronary artery] Onset: 4 04-10-2023 Chronic Biliary tract disease (20 sources) Acute cholecystitis; Translations: [Acute cholecystitis] 12-06-2022 Episodic Calculus of urinary tract (20 sources) Kidney stone; Translations: [Calculus of kidney] 11-30-2018 Episodic Cancer of prostate (1 source) Malignant neoplasm of prostate; Translations: [Malignant neoplasm of prostate] Onset: Chronic Cardiac dysrhythmias (20 sources) Supraventricular tachycardia; Translations: [Supraventricular tachycardia] 05-18-2023 Chronic Comment on above: ON METOPROLOL Conditions associated with dizziness or vertigo (10 sources) Lightheadedness; Translations: [Dizziness and giddiness] 06-07-2024 Episodic Conduction disorders (20 sources) Complete atrioventricular block; Translations: [Atrioventricular block, complete] 04-10-2023 Chronic Coronary atherosclerosis and other heart disease (20 sources) Coronary arteriosclerosis; Translations: [Atherosclerotic heart disease of [place] coronary artery without angina pectoris] Onset: 5 04-11-2023 Chronic Coronary atherosclerosis and other heart disease (20 sources) Stented coronary artery; Translations: [Presence of coronary angioplasty implant and graft] Onset: 4 04-12-2023 Episodic Comment on above: Prox RCA-RIRI Frontie r 3.0x38 mm Diabetes mellitus with complications (4 sources) Peripheral neuropathy due to type 2 diabetes mellitus; Translations: [Type 2 diabetes mellitus with diabetic polyneuropathy] Onset: 4 01-02-2014 Chronic Diabetes mellitus without complication (20 sources) Latent autoimmune diabetes mellitus in adult; Translations: [Other specified diabetes mellitus without complications] Onset: 1 Resolved: 5 09-24-2020 Chronic Disorders of lipid metabolism (20 sources) Hyperlipidemia; Translations: [Hyperlipidemia, unspecified] Onset: 6 Resolved: 5 05-13-2015 Chronic E Codes: Fall (5 sources) Fall; Translations: [Unspecified fall, initial encounter] 02-12-2024 Episodic Essential hypertension (20 sources) Hypertensive disorder; Translations: [Essential (primary) hypertension] 03-31-2005 Chronic Nausea and vomiting (20 sources) Nausea and vomiting; Translations: [Nausea with vomiting, unspecified] 12-06-2022 Episodic Nonspecific chest pain (20 sources) Xiphoidalgia syndrome; Translations: [Other chest pain] 11-30-2022 Episodic Occlusion or stenosis of precerebral arteries (10 sources) Right carotid artery stenosis; Translations: [Occlusion and stenosis of right carotid artery] Onset: 5 07-13-2024 Chronic Comment on above: CTA- images reviewed , 76% stenosis, soft plaque with no significant calcification s/p R TCAR 08/2024 Other aftercare (1 source) Encounter for surgical aftercare following surgery on the circulatory system; Translations: [Encounter for surgical aftercare following surgery on the circulatory system] Onset: 5 Episodic Other circulatory disease (9 sources) Disorder of carotid artery; Translations: [Disorder of arteries and arterioles, unspecified] 06-09-2024 Chronic Other circulatory disease (1 source) Disorder of arteries and arterioles, unspecified; Translations: [Disorder of arteries and arterioles, unspecified] Onset: 5 Chronic Other gastrointestinal disorders (14 sources) Dysphagia; Translations: [Dysphagia, unspecified] 08-12-2023 Episodic Comment on above: FOOD GETS STUCK AT T IMES Other injuries and conditions due to external causes (5 sources) Avulsion of skin; Translations: [Other injury of unspecified body region, initial encounter] 02-12-2024 Episodic Other nervous system disorders (14 sources) Cervical myelopathy; Translations: [Disease of spinal cord, unspecified] 10-14-2023 Chronic Other nervous system disorders (1 source) Disease of spinal cord, unspecified; Translations: [Disease of spinal cord, unspecified] Onset: 5 Chronic Other nervous system disorders (1 source) Other acute postprocedural pain; Translations: [Other acute postprocedural pain] Onset: 5 Episodic Other non-traumatic joint disorders (20 sources) Joint pain; Translations: [Pain in unspecified joint] 11-30-2022 Episodic Other screening for suspected conditions (not mental disorders or infectious disease) (20 sources) Patient encounter status; Translations: [Encounter for screening for malignant neoplasm of colon] 01-18-2023 Episodic Residual codes; unclassified (3 sources) Obstructive sleep apnea syndrome; Translations: [Obstructive sleep apnea (adult) (pediatric)] Onset: 5 03-31-2021 Chronic Residual codes; unclassified (7 sources) Acquired absence of other specified parts of digestive tract; Translations: [Other postprocedural status] 12-22-2022 Episodic Spondylosis; intervertebral disc disorders; other back problems (5 sources) Degeneration of cervical intervertebral disc; Translations: [Other cervical disc degeneration, unspecified cervical region] 08-12-2023 Chronic Thyroid disorders (20 sources) Hypothyroidism; Translations: [Hypothyroidism, unspecified] Onset: 1 09-16-2010 Chronic Unclassified (1 source) Supraventricular tachycardia, unspecified; Translations: [Supraventricular tachycardia, unspecified] Onset: 5 Urinary tract infections (2 sources) Urinary tract infection, site not specified; Translations: [Acute cystitis without hematuria] Onset: 4 Episodic Past or Other Problems Problem Classification Problem Date Documented Da te Episodic/Chronic Other gastrointestinal disorders (1 source) Other dysphagia; Translations: [Other dysphagia] Onset: 04-20-2024 Episodic Residual codes; unclassified (1 source) Sleep apnea; Translations: [Sleep apnea, unspecified] Onset: 03-31-2005 Resolved: 01-28-2015 01-28-2015 Chronic Spondylosis; intervertebral disc disorders; other back problems (6 sources) Spinal stenosis in cervical region; Translations: [Spinal stenosis, cervical region] Onset: 10-14-2023 10-14-2023 Episodic Superficial injury; contusion (11 sources) Hematoma of left knee region; Translations: [Contusion of left knee, initial encounter] Onset: 02-28-2024 02-12-2024 Episodic Results Test Name Value Interpretation Reference Range Facility Surgery Visit Reporton 08-30 Surgery Visit Report [facility] [address] [place], [place] [address] OFFICE VISIT Date of Service: 08/30/24 MR#: [id number] Acct: [id number] Name: SINDY GREENFIELD Rep #: [id number] : 1950 Provider: TORO Grimm Age/Sex: 74/M Location: [facility] Status: Signed Intake Vital Signs 06/07/24 09:33 08/15/24 15:20 08/30/24 13:22 Height 5 ft 9 in 5 ft 9 in Weight: 189 lb BP 145/68 H Blood Pressure Location Lt brachial Position Sitting Respiration 14 Pulse 82 Pulse Source Monitor Temp 98 F Temp Source Temporal Pulse Oximetry (%) 99 Oxygen Delivery Method room air Intake Visit Reasons: Post TCAR 2-4 WK FU Is patient in pain?: No Allergies Rtkkchq-CDY-AfY Reductase Inhibitor (Zeequna-Uua-Npt Reductase Inhibitor) Adverse Reaction (Verified 08/30/24 13:23) leg cramps Medications ???Medication ???Instructions ???Recorded ???Confirmed ???Type yexmmifq-imn-frxrq acid 0.4 1 ea PO DAILY SUPPLEMENT' 01/08/13 08/30/24 History mg-lycopene 300 mcg-lutein 250 mcg tablet (Centrum Silver) potassium citrate 10 mEq (1,080 1,080 mg PO DAILY SUPPLEMENT 05/2408/30/24 History mg) tablet,extended release (Urocit-K 10) fenofibrate nanocrystallized 145 145 mg PO DAILY CHOLESTEROL 08/30/24 History mg tablet ezetimibe 10 mg tablet 10 mg PO DAILY cholesterol 3 08/30/24 History vit C 250 mg-vit E 90 mg-zinc 40 1 tab PO BID eye health 12/06/22 0 08/30/24 History mg-copper 1 ho-ephots-qlrfcr capsule (PreserVision AREDS-2) losartan 100 mg tablet 100 mg PO DAILY blood pressure 09/2608/30/24 History aspirin 81 mg tablet,delayed 81 mg PO DAILYCM heart health 90 0 04/13/23 08/30/24 Rx release days #90 tabs clopidogrel 75 mg tablet 75 mg PO DAILY anti platelet #90 0 04/13/23 08/30/24 Rx tabs glipizide 5 mg tablet 5 mg PO DINNER diabetes 04/26/23 0 08/30/24 History THERAWORX See Rx Instructions .Route .COMPLE X 05/18/23 08/30/24 History levothyroxine 100 mcg tablet 100 mcg PO MOTUWETHFRSA thyroid 08/30/24 History metformin 1,000 mg tablet 1,000 mg PO BID DIABETES 05/18/23 08/30/24 History Held on 08/16/24. Instructions: Resume on 08/18/24. metoprolol tartrate 25 mg tablet 25 mg PO BID #180 tabs 06/07/23 Rx pravastatin 20 mg tablet 20 mg PO QHS #90 tabs 06/07/23 Rx omega-3 fatty acids 1,000 mg 1,000 mg PO BID 06/23/24 08/30/24 History capsule levothyroxine 100 mcg capsule 150 mcg PO GONZALES 08/01/24 08/30/24 Hi story acetaminophen 500 mg tablet 1,000 mg (2 x 500 mg) PO Q8 7 days 08/16/24 08/30/24 Rx #0 tabs Have you fallen in the past year?: Yes Subjective Details: Mr. Sindy Gonsalez is a 74 y/o male who presents today for postoperative follow-up s/p R TCAR 08/15/24. He reports that he had some bruising at the R radial art line site and the R groin puncture site, this has since resolves and he has no present concerns in these areas. He reports no pain at the R neck incision site. He still has bandage intact over the JETE drain site. He denies any episodes of focal neurologic symptoms such as unilateral weakness, numbness, monocular vision loss, facial droop, dysarthria. He denies unilateral headache or hoarseness. He continues to take ASA and Plavix. He was on DAPT prior to surgery under the direction of cardiology. Objective Details: A Ox3, NAD RRR Nonlabored respirations, able to speak in complete sentences R neck incision site well-healed, some skin glue still remains adherent. Removed dressing from JEET drain site, this is well-healed. R radial pulse is palpable Coding Level of Care Code Global Post Op Diagnoses Stenosis of right carotid artery I65.21 [facility] Medical History Anxiety Generalized psoriasis Cervical arthritis Syncope Thyroid disease Anemia CPAP (continuous positive airway pressure) dependence History of pain when walking History of echocardiogram Cardiology follow-up encounter History of heart attack Preop cardiovascular exam Supraventricular tachycardia Transient complete heart block Loss of hearing Wears glasses Cancer History of renal disease High cholesterol Dietary restriction Difficulty swallowing Non-smoker Neuropathy BPH (benign prostatic hyperplasia) Cholecystitis Hypothyroid Diabetes mellitus Leg cramping Hypertension Surgical History Hx of oral surgery Hx of cystoscopy History of coronary artery stent placement Hx of colonoscopy Stented coronary artery ( 04/10/23) Hx of cardiac catheterization ( 04/10/23) Hx of total knee replacement S/P laparoscopic cholecystectomy Histo (more content not included)... Normal [facility] Absolute lymphocyte countOrd ered By: Senthil Noel on 08-16-2024 Lymphocytes Auto (Unsp spec) [#/Vol] 0.91 10*3/uL 0.83-4.[address] [facility] Absolute neutrophil countOrd ered By: Senthiljani Noel on 08-16-2024 Neutrophils (Bld) [#/Vol] 6.3 10*3/uL 2.0-7.[address] [facility] Automated lymphocyte count a s percentage of total leukocytesOrdered By: Senthil Noel on 08-16-2024 Lymphocytes/100 WBC Auto (Unsp spec) 11.3 % Low 19-[address] [facility] Basophil percentageOrdered B y: Senthil Noel on 08-16-2024 Basophils/100 WBC (Bld) 0.4 % 0-1 [facility] Bedside Glucoseon 08-16-2024 FINGERSTICK GLU 171 mg/dL High 74-[address] [facility] Comment on above: Result Comment: NURYS MARINO OF PATIENT CARE PER NURSING PROTOCOL Performed By: #### L 501.080 #### [facility] [address] [place], [address] FINGERSTICK GLU 110 mg/dL High 74-[address] [facility] Comment on above: Result Comment: NURYS MARINO OF PATIENT CARE PER NURSING PROTOCOL Performed By: #### L 501.080 #### [facility] [address] [place], [address] CBC W/Diff, Automatedon 05-1 Absolute Lymph 0.91 X10 3/uL Normal 0.83-4.[address] [facility] Comment on above: Performed By: #### L 100.0100 #### [facility] [address] [place], [address] Absolute Neut 6.3 X10 3/uL Normal 2.0-7.[address] [facility] Comment on above: Performed By: #### L 100.0100 #### [facility] [address] [place], [address] Basophils/100 WBC (Bld) 0.4 % Normal 0-1 [facility] Comment on above: Performed By: #### L 100.0100 #### [facility] [address] [place], [address] Eosinophils/100 WBC (Bld) 0.5 % Normal 0-[address] [facility] Comment on above: Performed By: #### L 100.0100 #### [facility] [address] [place], [address] Erythrocyte distribution width (RBC) [Ratio] 13.5 % Normal 11.6-14.[address] [facility] Comment on above: Performed By: #### L 100.0100 #### [facility] [address] [place], [address] Hematocrit (Bld) [Volume fraction] 29.1 % Low 40-[address] [facility] Comment on above: Performed By: #### L 100.0100 #### [facility] [address] [place], [address] Hemoglobin (Bld) [Mass/Vol] 9.9 g/dL Low 13.0-16.[address] [facility] Comment on above: Performed By: #### L 100.0100 #### [facility] [address] [place], [address] IG% 0.200 Normal 0.0-0.[address] [facility] Comment on above: Result Comment: IG% - Immature Granulocytes (promyelocytes, myelocytes and metamyelocytes) > 1% indicates that a LEFT SHIFT is Present. Performed By: #### L 100.0100 #### [facility] [address] [place], [address] Lymphocytes/100 WBC (Bld) 11.3 % Low 19-[address] [facility] Comment on above: Performed By: #### L 100.0100 #### [facility] [address] [place], [address] MCH (RBC) [Entitic mass] 30.1 pg Normal 27.0-32.[address] [facility] Comment on above: Performed By: #### L 100.0100 #### [facility] [address] [facility] [place], [address] MCHC (RBC) [Mass/Vol] 34.0 g/dL Normal 32-36 [facility] Comment on above: Performed By: #### L 100.0100 #### [facility] [address] [place], [address] MCV (RBC) [Entitic vol] 88.4 fL Normal 80-94 [facility] Comment on above: Performed By: #### L 100.0100 #### [facility] [address] [place], [address] Monocytes/100 WBC (Bld) 10.0 % Normal 0-10 [facility] Comment on above: Performed By: #### L 100.0100 #### [facility] [address] [place], [address] Neutrophils/100 WBC (Bld) 77.6 % High 47-[address] [facility] Comment on above: Performed By: #### L 100.0100 #### [facility] [address] [place], [address] Nucleated RBC (Bld) [#/Vol] 0 10*3/uL Normal 0-[address] [facility] Comment on above: Performed By: #### L 100.0100 #### [facility] [address] [place], [address] Platelet mean volume (Bld) [Entitic vol] 10.5 fL Normal 6.2-12.[address] [facility] Comment on above: Performed By: #### L 100.0100 #### [facility] [address] [place], [address] Platelets (Bld) [#/Vol] 208 10*3/uL Normal 150-[address] [facility] Comment on above: Performed By: #### L 100.0100 #### [facility] [address] [place], [address] RBC (Bld) [#/Vol] 3.29 10*6/uL Low 4.6-6.2 [facility] Comment on above: Performed By: #### L 100.0100 #### [facility] [address] [place], [address] RDW SD 43.8 fl Normal 35.1-43.[address] [facility] Comment on above: Performed By: #### L 100.0100 #### [facility] [address] [place], [address] WBC (Bld) [#/Vol] 8.1 10*3/uL Normal 4.4-11.0 [facility] Comment on above: Performed By: #### L 100.0100 #### [facility] [address] [place], [address] Eosinophil percentageOrdered By: Senthil Noel on 08-16-2024 Eosinophils/100 WBC (Bld) 0.5 % 0-[address] [facility] Erythrocyte distribution wid th ratioOrdered By: Senthil Noel on 08-16-2024 Erythrocyte distribution width (RBC) [Ratio] 13.5 % 11.6-14.[address] [facility] Erythrocyte distribution wid th standard deviationOrdered By: Senthil Noel on 08-16-2024 Erythrocyte distribution width (RBC) [Ratio] 43.8 fl 35.1-43.[address] [facility]dered By: Senthil Noel on 08-16-2024 Glucose [Mass/Vol] 171 mg/dL High 74-106 [facility] Comment on above: MANAGEMENT OF PATIEN T CARE PER NURSING PROTOCOL Hematocrit Auto (Bld) [Volum e fraction]Ordered By: Senthil Noel on 08-16-2024 Hematocrit (Bld) [Volume fraction] 29.1 % Low 40-[address] [facility] Hemoglobin measurementOrdere d By: Senthil Noel on 08-16-2024 Hemoglobin (Bld) [Mass/Vol] 9.9 g/dL Low 13.0-16.[address] [facility] Immature granulocytes/100 WB C Auto (Bld)Ordered By: Senthil Noel on 08-16-2024 Immature granulocytes/100 WBC (Bld) 0.200 % 0.0-0.[address] [facility] Comment on above: IG% - Immature Granu locytes (promyelocytes, myelocytes and metamyelocytes) > 1% indicates that a LEFT SHIFT is Present. MCV (mean corpuscular volume ) determinationOrdered By: Senthil Noel on 08-16-2024 MCV (RBC) [Entitic vol] 88.4 fL 80-94 [facility] Mean corpuscular hemoglobin (MCH) determinationOrdered By: Senthil Noel on 08-16-2024 MCH (RBC) [Entitic mass] 30.1 pg 27.0-32.[address] [facility] Mean corpuscular hemoglobin concentration (MCHC) determinationOrdered By: Senthil Noel on 08-16-2024 MCHC (RBC) [Mass/Vol] 34.0 g/dL 32-36 [facility] Mean platelet volume determi nationOrdered By: Senthil Noel on 08-16-2024 Platelet mean volume (Bld) [Entitic vol] 10.5 fL 6.2-12.[address] [facility] Monocyte percentageOrdered B y: Senthil Noel on 08-16-2024 Monocytes/100 WBC (Bld) 10.0 % 0-10 [facility] Neutrophil percentageOrdered By: Senthil Noel on 08-16-2024 Neutrophils/100 WBC (Bld) 77.6 % High 47-[address] [facility] Nucleated red blood cell per centageOrdered By: Senthil Noel on 08-16-2024 Nucleated RBC/100 WBC (Bld) [Ratio] 0 % 0-[address] [facility] Platelet countOrdered By: Rey Noel on 08-16-2024 Platelets (Bld) [#/Vol] 208 10*3/uL 150-[address] [facility] RBC Auto (Bld) [#/Vol]Ordere d By: Senthiljani Noel on 08-16-2024 RBC (Bld) [#/Vol] 3.29 10*6/uL Low 4.6-6.2 [facility] White blood cell (WBC) count Ordered By: Senthil Noel on 08-16-2024 WBC (Bld) [#/Vol] 8.1 10*3/uL 4.4-11.0 [facility] ACT Activated Clotting Timeo n 08-15-2024 ACTk CLOT TIME 233 sec High 74-[address] [facility] Comment on above: Performed By: #### L 501.080 #### [facility] [address] [place], [address] ACTk CLOT TIME 124 sec Normal 74-[address] [facility] Comment on above: Performed By: #### L 501.080 #### [facility] [address] [place], [address] ACTk CLOT TIME 245 sec High 74-[address] [facility] Comment on above: Performed By: #### L 501.080 #### [facility] [address] [place], [address] Bedside Glucoseon 08-15-2024 FINGERSTICK GLU 159 mg/dL High 74-[address] [facility] Comment on above: Result Comment: NURYS GEMENT OF PATIENT CARE PER NURSING PROTOCOL Performed By: #### L 501.080 #### [facility] [address] [place], [address] FINGERSTICK GLU 130 mg/dL High 74-[address] [facility] Comment on above: Result Comment: NURYS GEMENT OF PATIENT CARE PER NURSING PROTOCOL Performed By: #### L 501.080 #### [facility] [address] [place], [address] FINGERSTICK GLU 121 mg/dL [facility] [facility] Comment on above: Result Comment: NURYS GEMENT OF PATIENT CARE PER NURSING PROTOCOL Performed By: #### L 501.080 #### [facility] [address] [place], [address] MR/POSTOP.ANEon 08-15-2024 MR/POSTOP.[facility] Medical Records Department [address] [place] [address] Anesthesia Postop Eval I 08/15/24 1324 MR#: [id number] Acct: [id number] Name: SINDY GREENFIELD Rep #: [id number] : 1950 74 From: Leslie Magana PCP: JOCELINE Morejon Status:REG SDC Y Race: C Location: ICU [id number] Anesthesia: Postop Eval I Current Vital Signs Temperature: 97 F Pulse Rate: 55 Blood Pressure: 137/57 Respiratory Rate: 16 Pulse Ox: 99 Oxygen Delivery Method: Room Air Assessment Airway patent: Yes Spontaneous unlabored respirations: Yes Mental status: Awake and Calm nausea: No Vomiting: No Anesthesia Complication: No Fluid Hydration Crystalloid volume administer (ml): 1,500 Total IV fluid infused: 1,500 Progress Note Anesthesia document: Postop Eval 1 completed: Yes 08/15/24 1325 Date Leslie Weaverigner Signature: Date CC: Signed Normal [facility] MR/[id number] 08-15-2024 MR/POSTOPAN2 [facility] Medical Records Department [address] [place] [address] Anesthesia Postop Eval II 08/15/24 1408 MR#: [id number] Acct: [id number] Name: SINDY GREENFIELD Rep #: [id number] : 1950 74 From: Ian Damon MD PCP: JOCELINE Morejon Status:REG [facility] Y Race: C Location: ICU [id number] Anesthesia Postop Eval I Sum Postop Eval Completion status Anesthesia document: Postop Eval 1 completed: Yes Anesthesia Postop Eval I Summary Anesthesia Postop Eval I Summary: Anesthesia Postop Eval I: Assessment Summary Airway patent Yes 08/15/24 13:25 [employer]GDOTT Spontaneous unlabored Yes 08/15/24 13:25 [employer]OTT respirations Mental status Awake,Calm 08/15/24 13:25 [employer] nausea No 08/15/24 13:25 [employer] Vomiting No 08/15/24 13:25 [employer]GDOTT Anesthesia Postop Eval I: Fluid Summary Crystalloid volume administer 1,500 08/15/24 13:25 [employer]GDOTT (ml) Colloids volume administered ( ml) Blood Product volume administered (ml) Total IV fluid infused 1,500 08/15/24 13:25 [employer]GDOTT Anesthesia Postop Eval I: Summary Notes Anesthesia Complication No 08/15/24 13:25 [employer]GDOTT Anesthesia Complication Comment: Post-operative progress note Anesthesia: Postop Eval II Evaluation Mental status: Awake and Calm Pain Level: 1 nausea: No Vomiting: No Progress Note Post-operative progress note: Patient given 10 mg Hydralazine prior to going to the ICU. Doing well Complications Anesthesia Complication: No 08/15/24 1408 Date Ian Damon MD Cosigner Signature: Date CC: Signed Normal [facility] Operative Reporton 5 Operative Report [facility] Medical Records Department [address] [place] [address] Operative Report 08/15/24 1317 MR#: [id number] Acct: [id number] Name: SINDY GREENFIELD Rep #: [id number] : 1950 74 From: Senthil Noel MD PCP: JOCELINE Morejon Status:ADM IN Location: ICU [place] [address] Operative Report (Standard) Operative Information Date of Procedure: 08/15/24 Pre-Operative Diagnosis: right carotid stenosis Post-Operative Diagnosis: same Surgery/Procedure Performed: right carotid stent, trans carotid orthopedic shoe maker: Yes Agricultural Equipment Design Engineer: Jodi Candelario Tasks completed by first calender worker: Opening, Closing, Opening closing, Hemostasis: Electrocautery and Retracting Type of Anesthesia: General RN Documented Start/Stop Times: Operation Date: 08/15/24 11:00 Case Time Into Pre-Op 08/15/24 09:08 Out of Pre-Op 08/15/24 10:50 Into Recovery 08/15/24 13:17 Procedure Start Time: 11:45 Procedure Stop Time: 13:00 Select all DRAINS/GRAFTS/IMPLANTS that apply: Implanted device Implanted device details: 10-8 x 40 En route Estimated Blood Loss: 16 Specimen collected: No Description of surgery: HPI: Patient is a 74-year-old male with asymptomatic right carotid artery stenosis who presents now for carotid artery stenting via transcarotid approach. Description of procedure: Upon obtaining informed consent and verification correct patient procedure and site the patient was taken to the Measurement And Sensing Technician where he was placed under general anesthesia. He was then positioned prepped and draped in usual sterile fashion a time was performed. Transverse incision was made 1 fingerbreadth superior to the clavicle centered on the common carotid artery. Bovie was used to dissect at the subcutaneous tissue to the level the platysma which was then divided and self-retaining retractors placed in the wound. Further dissection was carried down to the sternocleidomastoid and the cleft between the sternal and clavicular heads identified and dissected with Bovie and self-retaining retractors moved deeper into the wound. Once the carotid sheath was visualized sharp dissection was used to dissect free the anterior border of the jugular vein present retracted laterally. Sharp dissection was then used to dissect free the proximal common carotid artery and a right angle used to place a vessel loop. 5-0 Prolene pursestring was then placed at the intended access site and the patient heparinized and allowed to circulate for 3 minutes with subsequent heparin dosing based on ACT results. Under ultrasound guidance the right common femoral vein was accessed with a micropuncture needle wire to then exchanged for micropuncture sheath. Through this a J-wire was advanced and the micropuncture sheath exchanged for the 8 [place]onese venous return sheath. Next the carotid artery was accessed in antegrade fashion with a micropuncture needle wire exchanged for micropuncture sheath. Through the micropuncture sheath hand-injection subtraction angiography was performed revealing satisfactory positioning and no extravasation or dissection. This also revealed the carotid bifurcation and lesion location to guidewire and sheath advancement. Through the micropuncture sheath the J-wire is advanced and the micropuncture sheath exchanged for the silk [address] flow reversal sheath advanced without resistance. The flow reversal tubing was then attached first to the arterial sheath and then flushed and attached to the venous return sheath with adequate flow reversal observed. Next the proximal common carotid artery was occluded with Vesseloops and adequate flow reversal confirmed. Multiple oblique view subtraction angiography was then performed confirming adequate sheath positioning and position of the lesion. A 1 4 wire was then advanced across the lesion and a silk Road angioplasty balloon 5 x 35 was advanced into the lesion and inflated to nominal then deflated withdrawn. Next an en route tapered 10 to 8 x 40 stent was advanced in the position and deployed followed by 2 minutes of flow reversal. Next subtraction angiography was performed revealing satisfactory stent placement with no extravasation or dissection, no residual stenosis, and no plaque prolapse. The carotid clamp was then released and additional 1 minute of flow reversal performed. The flow reversal tubing was then detached and blood return via the venous sheath. The venous sheath was then withdrawn and manual pressure held for 5 minutes till hemostasis was obtained. The Prolene pursestring suture was then secured as the arterial sheath was withdrawn and satisfactory stasis noted. Heparin was then reversed with protamine and the incision inspected for hemostasis. A 19 Gabonese channel JEET was then placed via separate stab incision and the incision closed with 3-0 Vicryl, 4 Monocryl and Dermabond for skin. At the conclusion of case the patie (more content not included)... Normal [facility] Anion gap in Serum or Plasma Ordered By: Senthil Noel on 08-02-2024 Anion gap [Moles/Vol] 11 mmol/L 5-15 [facility] BUN/creatinine ratioOrdered By: Senthil Noel on 08-02-2024 Urea nitrogen/Creatinine [Mass ratio] 20.9 mg/mg High - [facility] Basic Metabolic Profile (BMP )on 08-02-2024 BUN/CRE 20.9 RATIO High 10- [facility] Comment on above: Performed By: #### L 501.080 #### [facility] Laboratory [address] [place], [address] Calcium [Mass/Vol] 9.2 mg/dL Normal 7.6-11.0 [facility] Comment on above: Performed By: #### L 501.080 #### [facility] Laboratory [address] [place], [address] Chloride [Moles/Vol] 106 mmol/L Normal 98-108 [facility] Comment on above: Performed By: #### L 501.080 #### [facility] Laboratory [address] [place], [address] CO2 [Moles/Vol] 23.3 mmol/L Normal 21.0-32.[address] [facility] Comment on above: Performed By: #### L 501.080 #### [facility] [address] [place], [address] Creatinine [Mass/Vol] 1.50 mg/dL High 0.70-1.20 [facility] Comment on above: Performed By: #### L 501.080 #### [facility] [address] [place], [address] GAP 11 Normal 5-[address] [facility] Comment on above: Performed By: #### L 501.080 #### [facility] [address] [place], [address] GFR/1.73 sq M.predicted among non-blacks MDRD (S/P/Bld) [Vol rate/Area] 48 mL/min/{1.73_m2} Low >[address] [facility] Comment on above: Result Comment: mL/m in/1.73m2 CKD-EPI Creatinine Equation (2020) Performed By: #### L 501.080 #### [facility] [address] [place], [address] Glucose [Mass/Vol] 160 mg/dL High 70-99 [facility] Comment on above: Performed By: #### L 501.080 #### [facility] [address] [place], [address] Potassium [Moles/Vol] 4.4 mmol/L Normal 3.3-5.1 [facility] Comment on above: Performed By: #### L 501.080 #### [facility] [address] [place], [address] Sodium [Moles/Vol] 140 mmol/L Normal 133-145 [facility] Comment on above: Performed By: #### L 501.080 #### [facility] [address] [place], [address] Urea nitrogen [Mass/Vol] 31 mg/dL High 4-[address] [facility] Comment on above: Performed By: #### L 501.080 #### [facility] [address] [place], [address] Carbon dioxide, total [Moles /volume] in Central venous bloodOrdered By: Senthil Noel on 08-02-2024 CO2 [Moles/Vol] 23.3 mmol/L 21.0-32.[address] [facility] Chloride assayOrdered By: Rey Noel on 08-02-2024 Chloride [Moles/Vol] 106 mmol/L 98-108 [facility] Glomerular filtration rate ( GFR) estimation/1.73 sq m using serum, plasma, or whole bOrdered By: Senthil Noel on 08-02-2024 GFR/1.73 sq M.predicted among non-blacks MDRD (S/P/Bld) [Vol rate/Area] 48 mL/min/{1.73_m2} Low >[address] [facility] Comment on above: mL/min/1.73m2 CKD-EP I Creatinine Equation (2020) Potassium measurement (mass/ volume)Ordered By: Senthil Noel on 08-02-2024 Potassium (Unsp spec) [Mass/Vol] 4.4 mmol/L 3.3-5.[address] [facility] Serum creatinine measurement (mass/volume)Ordered By: Senthil Noel on 08-02-2024 Creatinine [Mass/Vol] 1.50 mg/dL High 0.70-1.20 [facility] Serum glucose measurement (m ass/volume)Ordered By: Senthil Noel on 08-02-2024 Glucose [Mass/Vol] 160 mg/dL High 70-99 [facility] Serum or plasma calcium jennifer urement (mass/volume)Ordered By: Senthil Noel on 08-02-2024 Calcium [Mass/Vol] 9.2 mg/dL 7.6-11.0 [facility] Serum or plasma urea nitroge n measurement (mass/volume)Ordered By: Senthil Noel on 08-02-2024 Urea nitrogen [Mass/Vol] 31 mg/dL High 4-[address] [facility] Sodium levelOrdered By: Senthil Noel on 08-02-2024 Sodium [Moles/Vol] 140 mmol/L 133-145 [facility] MR/RUMAon 08-01-2024 MR/RUMA [facility] Medical Records Department [address] [place] [address] PAT - Anesthesia 08/01/24 1808 MR#: [id number] Acct: [id number] Name: SINDY GREENFIELD Rep #: [id number] : 1950 74 From: Won Webster MD PCP: Mita Zaidi SUPERVISOR TITLEBrittonC Status:PRE SDC Y Race: C [place] [facility] [place] Pre-Assessment Diagnosis/Proposed Procedure Planned Operative Procedure(s): RIGHT CAROTID 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 When Was Last Pacemaker Check QUESTION #4 FULL TEXT: You/Your Family Experience fever (hyperthermia) with Anesthesia Last Oral Intake Last Oral intake: Last Oral Intake NPO since Meds taken in AM with sips of water? 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 Female No 08/01/24 09:26 HX of Motion Sickness No 08/01/24 09:26 HX of N/V After Surgery No 08/01/24 09:26 Non-Smoker Yes 08/01/24 09:26 Duration of Surgery greater Yes 08/01/24 09:26 than 60 minutes Number of Risk Factors 2 08/01/24 09:26 PONV Score Moderate Risk 08/01/24 09:26 Height Weight Height Weight: Anesthesia: Height Weight Height 5 ft 9 in 06/07/24 09:33 Respiratory Assessment Respiratory Assessment - director of securities and real estate: Respiratory Tract Infection Hx - 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 Has anyone observed you stop breathing during sleep? STOP Results Positive 08/01/24 09:26 QUESTION #5 FULL TEXT : Do you snore loudly (louder than talking or can be heard through closed doors)? 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 Specify any problems Hx of Preganancy in last 3 N/A 08/01/24 09:26 Months Nurse Filling Out Transfusion DSCHRIBER 08/01/24 09:26 Questions: Date: 08/01/24 08/01/24 09:26 Time: 08/01/24 09:26 Patient unable to answer at this time (ie. 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 Hx Now No 08/01/24 09:26 Gestational Age (in weeks): EDC: Hx Hx Para Hx Section SAB No 08/01/24 09:26 PFSH Medical History (Updated 08/01/24 @ 09:40 by Eleni Dickson) Anxiety Generalized psoriasis Cervical arthritis Syncope Thyroid disease Anemia CPAP (continuous positive airway pressure) dependence History of pain when walking History of echocardiogram Cardiology follow-up encounter History of heart attack Preop cardiovascular exam Supraventricular tachycardia Transient complete heart block Loss of hearing Wears glasses Cancer History of renal disease High cholesterol Dietary restriction Difficulty swallowing Non-smoker Neuropathy BPH (benign prostatic hyperplasia) Cholecystitis Hypothyroid Diabetes mellitus Leg cramping Hypertension Home Medications ???Medication ???Instructions ???Recorded ???Last Taken ???Type ysokbjpc-xlp-slfxc acid 0.4 1 ea PO DAILY SUPPLEMENT' 01/08/13 05/18/23 History mg-lycopene 300 mcg-lutein 250 mcg tablet (Centrum Silver) umair (more content not included)... Normal [facility] MR/BMS.BVAgustin 07-13-2024 MR/BMS.BVS [facility] V[facility] Surgery [address] [place] [address] OFFICE VISIT Date of Service: 07/13/24 MR#: [id number] Acct: [id number] Name: SINDY GREENFIELD Rep #: [id number] : 1950 Provider: Dr. Senthil Noel MD Age/Sex: 74/M Location: [facility] Status: Signed Intake Vital Signs 06/07/24 09:33 07/13/24 14:57 Height 5 ft 9 in Weight: 189 lb BP 158/79 H Blood Pressure Location Lt brachial Position Sitting Respiration 16 Pulse 80 Pulse Source Monitor Temp 97.8 F Temp Source Temporal Pulse Oximetry (%) 97 Oxygen Delivery Method room air Intake Visit Reasons: Discuss CTA Results Is patient in pain?: No Allergies Taxbuzl-ACV-NlU Reductase Inhibitor (Wfpxacs-Ocv-Xrm Reductase Inhibitor) Adverse Reaction (Verified 07/13/24 14:59) leg cramps Medications ???Medication ???Instructions ???Recorded ???Confirmed ???Type tfduteim-izr-claup acid 0.4 1 ea PO DAILY SUPPLEMENT' 01/08/13 07/13/24 History mg-lycopene 300 mcg-lutein 250 mcg tablet (Centrum Silver) potassium citrate 10 mEq (1,080 1,080 mg PO DAILY SUPPLEMENT 05/2407/13/24 History mg) tablet,extended release (Urocit-K 10) fenofibrate nanocrystallized 145 145 mg PO DAILY CHOLESTEROL 07/13/24 History mg tablet ezetimibe 10 mg tablet 10 mg PO DAILY cholesterol 3 07/13/24 History vit C 250 mg-vit E 90 mg-zinc 40 1 tab PO BID eye health 12/06/22 0 07/13/24 History mg-copper 1 gh-toqeko-hshjru capsule (PreserVision AREDS-2) losartan 100 mg tablet 100 mg PO DAILY blood pressure 09/2607/13/24 History aspirin 81 mg tablet,delayed 81 mg PO DAILYCM heart health 90 0 04/13/23 07/13/24 Rx release days #90 tabs clopidogrel 75 mg tablet 75 mg PO DAILY anti platelet #90 0 04/13/23 07/13/24 Rx tabs glipizide 5 mg tablet 5 mg PO DINNER diabetes 04/26/23 0 07/13/24 History THERAWORX See Rx Instructions .Route .COMPLE X 05/18/23 07/13/24 History levothyroxine 100 mcg tablet 100 mcg PO DAILY thyroid 05/18/23 07/13/24 History metformin 1,000 mg tablet 1,000 mg PO BID DIABETES 05/18/23 07/13/24 History metoprolol tartrate 25 mg tablet 25 mg PO BID #180 tabs 06/07/23 Rx pravastatin 20 mg tablet 20 mg PO QHS #90 tabs 06/07/2301/27 Rx omega-3 fatty acids 1,000 mg 1,000 mg PO QDAY 06/23/24 07/13/24 History capsule Have you fallen in the past year?: Yes PFSH Medical History Open wound Thyroid disease Kidney stones Anemia Easy bruising Excessive bleeding CPAP (continuous positive airway pressure) dependence Sleep apnea History of pain when walking History of echocardiogram Cardiology follow-up encounter History of heart attack Preop cardiovascular exam SVT (supraventricular tachycardia) Supraventricular tachycardia Transient complete heart block Loss of hearing Wears glasses Cancer History of renal disease High cholesterol Dietary restriction Difficulty swallowing Non-smoker Neuropathy BPH (benign prostatic hyperplasia) Cholecystitis Hypothyroid Diabetes mellitus Leg cramping Sleep apnea treated with continuous positive airway pressure (CPAP) Hypertension Surgical History Hx of cystoscopy History of coronary artery stent placement Hx of colonoscopy Stented coronary artery ( 04/10/23) Hx of cardiac catheterization ( 04/10/23) Hx of total knee replacement Hx of colonoscopy S/P laparoscopic cholecystectomy History of tonsillectomy and adenoidectomy H/O prostatectomy Social History household members: spouse current occupational status: retired Smoking Status: Never smoker alcohol intake: never substance use type: does not use caffeine: No HPI HPI HPI: SINDY GREENFIELD, is a 74 M who presents to the office today for follow up of right ICA stenosis found initially on duplex to further evaluate dizziness. This revealed >70% stenosis of the right ICA. He is currently on ASA/plavix/statin for CAD. He has had a CTA and is here to discuss options. He is in the process of arranging cervical decompression via anterior approach with Dr. Bettencourt in the near future. He denies numbness/weakness/vision loss/speech difficulty. ROS General General: Yes fatigue; No weight change, appetite, colon cancer, breast cancer or weakness HEENT HEENT: Yes difficulty swallowing and swollen glands; No eye injury, eye surgery or hoarseness Endo Endocrine: Yes diabetes mellitus; No thyroid disease, thyroid cancer, Hair loss, heat intolerance or cold intolerance Skin Skin: Yes rash; No changing moles Musc Musculoskeletal: No back problem (more content not included)... Normal [facility] CTA Head AND Neck W/ Contras ton 07-06-2024 CTA Head AND Neck W/ Contrast [facility] Imaging Services [address] [place], [place] [address] CTA Head AND Neck W/ Contrast MR#: [id number] Acct: [id number] Name: SINDY GREENFIELD Rep #: [id number] : 1950 M 74 From: Bharath pastrana MD PCP: JOCELINE Morejon Status: REG CLI Study: CTA Head AND Neck W/ Contrast Date of Exam: Exam# [id number] Ordering Dr: Pauly Mathews PROCEDURE: CTA HEAD AND NECK W/ CONTRAST 07/06/2024 REASON FOR EXAM: SEVERE R ICA STENOSIS TECHNIQUE: CTA HEAD AND NECK WITH IV CONTRAST: Coronal and Sagittal reconstruction series were provided. 3D, 3D post processing, 3D reconstructions, Maximum intensity projection (MIPs) Volume rendering and Shaded surface rendering was provided. CONTRAST: Isovue 370 VOLUME: 75 mL mL One or more dose reduction techniques were used (e.g., Automated exposure control, adjustment of the mA and/or kV according to patient size, use of iterative reconstruction technique). RADIATION DOSE SUMMARY: CTDlvol: 19.97 mGy DLP: 1662.82 mGycm COMPARISON: None FINDINGS: AORTIC ARCH: Atherosclerotic plaque formation of the aortic arch. Calcific plaques at the origin of the right brachiocephalic artery. EXTRACRANIAL CAROTIDS: Mild calcific plaques in the left common carotid artery. RIGHT ICA Maximum stenosis (NASCET): Calcific plaque at the origin of the right internal carotid artery causing high-grade stenosis/almost occlusion. LEFT ICA Maximum stenosis (NASCET): 50-60% narrowing. % SKULL BASE: Unremarkable INTRACRANIAL VASCULATURE Cerebral Arteries: Unremarkable [place]: Unremarkable Venous Drainage: Unremarkable VERTEBROBASILAR SYSTEM: Unremarkable CT/CTA Head AND Neck W/ Contrast IMPRESSION: High-grade stenosis at the origin of the right internal carotid artery. 50-60% narrowing at the origin of the left internal carotid artery. Reading Location: [place] [address] CC: JOCELINE Zaidi; TORO Grimm Shell Grader: Signed Normal [facility] MR/BMS.BVSon 06-22-2024 MR/BMS.BVS [facility] Surgery [address] [place] [address]. [address] [place] [address] OFFICE VISIT Date of Service: 06/23/24 MR#: [id number] Acct: [id number] Name: SINDY GREENFIELD Rep #: [id number] : 1950 Provider: TORO Grimm Age/Sex: 74/M Location: [facility] Status: Signed Intake Vital Signs 06/07/24 09:33 06/23/24 09:35 Height 5 ft 9 in Weight: 187 lb 186 lb BMI 27.6 BP 176/69 H 148/86 H Blood Pressure Location Rt brachial Lt brachial Position Sitting Sitting Respiration 18 16 Pulse 73 60 Pulse Source NIBP Monitor Temp 97.8 F Temp Source Temporal Intake Visit Reasons: Carotid artery disease Chief Complaint: establish care Is patient in pain?: No Allergies Utbdmfp-FJQ-AnQ Reductase Inhibitor (Ezydvhu-Tlf-Uzi Reductase Inhibitor) Adverse Reaction (Verified 06/23/24 09:37) leg cramps Medications ???Medication ???Instructions ???Recorded ???Confirmed ???Type charueen-ame-rcbmt acid 0.4 1 ea PO DAILY SUPPLEMENT' 01/08/13 06/23/24 History mg-lycopene 300 mcg-lutein 250 mcg tablet (Centrum Silver) potassium citrate 10 mEq (1,080 1,080 mg PO DAILY SUPPLEMENT 05/2406/23/24 History mg) tablet,extended release (Urocit-K 10) fenofibrate nanocrystallized 145 145 mg PO DAILY CHOLESTEROL 06/23/24 History mg tablet ezetimibe 10 mg tablet 10 mg PO DAILY cholesterol 3 06/23/24 History vit C 250 mg-vit E 90 mg-zinc 40 1 tab PO BID eye health 12/06/22 0 06/23/24 History mg-copper 1 dc-kprqqf-iobpaz capsule (PreserVision AREDS-2) losartan 100 mg tablet 100 mg PO DAILY blood pressure 09/2606/23/24 History aspirin 81 mg tablet,delayed 81 mg PO DAILYCM heart health 90 0 04/13/23 06/23/24 Rx release days #90 tabs clopidogrel 75 mg tablet 75 mg PO DAILY anti platelet #90 0 04/13/23 06/23/24 Rx tabs glipizide 5 mg tablet 5 mg PO DINNER diabetes 04/26/23 0 06/23/24 History THERAWORX See Rx Instructions .Route .COMPLE X 05/18/23 06/23/24 History levothyroxine 100 mcg tablet 100 mcg PO DAILY thyroid 05/18/23 06/23/24 History metformin 1,000 mg tablet 1,000 mg PO BID DIABETES 05/18/23 06/23/24 History metoprolol tartrate 25 mg tablet 25 mg PO BID #180 tabs 06/07/23 Rx pravastatin 20 mg tablet 20 mg PO QHS #90 tabs 06/07/23 Rx omega-3 fatty acids 1,000 mg 1,000 mg PO QDAY 06/23/24 06/23/24 History capsule Have you fallen in the past year?: Yes PFSH Medical History Open wound Thyroid disease Kidney stones Anemia Easy bruising Excessive bleeding CPAP (continuous positive airway pressure) dependence Sleep apnea History of pain when walking History of echocardiogram Cardiology follow-up encounter History of heart attack Preop cardiovascular exam SVT (supraventricular tachycardia) Supraventricular tachycardia Transient complete heart block Loss of hearing Wears glasses Cancer History of renal disease High cholesterol Dietary restriction Difficulty swallowing Non-smoker Neuropathy BPH (benign prostatic hyperplasia) Cholecystitis Hypothyroid Diabetes mellitus Leg cramping Sleep apnea treated with continuous positive airway pressure (CPAP) Hypertension Surgical History Hx of cystoscopy History of coronary artery stent placement Hx of colonoscopy Stented coronary artery ( 04/10/23) Hx of cardiac catheterization ( 04/10/23) Hx of total knee replacement Hx of colonoscopy S/P laparoscopic cholecystectomy History of tonsillectomy and adenoidectomy H/O prostatectomy Social History household members: spouse current occupational status: retired Smoking Status: Never smoker alcohol intake: never substance use type: does not use caffeine: No HPI HPI HPI: SINDY GREENFIELD, is a 74 M who presents to the office today for evaluation of severe R carotid stenosis as referred from the [facility]. Carotid duplex 06/08/24 demonstrated severe >70% R ICA stenosis with max PSV 300.5/104.4 and <50% L ICA stenosis. Duplex was performed secondary to patient's lightheadedness in conjunction with a prior soft-tissue neck CT (07/2023) which had reported apparent significant R ICA stenosis as well. He had been scheduled for cervical spine surgery by Dr. Bettencourt but this has been placed on hold to allow for further carotid evaluation. He reports he has cervical bone spurs which are compressing his esophagus which has led him to elect for the spine surgery. He denies any history of known CVA/TIA. He denies any episodes of unilateral weakness/numbness/parest hesias, facial drooping, monocular vision loss, dysarthria. He does report lighthe (more content not included)... Normal [facility] Hepatitis A AB, Totalon 03-5 HEPATITIS A,TOT Negative Normal Negative [facility] Comment on above: Result Comment: Comm ent: The HAV total antibody assay detects both IgG and IgM but does not differentiate between them. A negative result suggests susceptibility to infection. A positive result could be due to vaccination, previously resolved infection or active infection. Testing for HAV IgM should be performed if active HAV infection is suspected. [facility] offers profiles that will automatically reflex positive HAV total antibody results to IgM (e.g., panel #[id number] HAV Antibody w/ Rfx). Performed at: [address] [id number] Pharmacy Operations Manager: Royal White PhD, Phone: [phone] Performed By: #### L 100.0100, L3890.6006, L501.9985, L3100.0300, L3890.6301, L3890.6202, M100.651, BTSPAT, L501.9520 ####[facility] [address] [facility]. [place], [place], [id number] MRSA/SAID NASAL SCREENon MRSA+SAID SCRN Reason for Exam: Rainer brynn MRSA MRSA Negative S. AUREUS S. aureus PositiveA Normal [facility] Comment on above: Performed By: #### L 100.0100, L3890.6006, L501.9985, L3100.0300, L3890.6301, L3890.6202, M100.651, BTSPAT, L501.9520 ####[facility] [address] [place], [place], [address] CBC W/Diff, Automatedon 06-03 Absolute Lymph 1.21 X10 3/uL Normal 0.83-4.[address] [facility] Comment on above: Performed By: #### L 100.0100, L3890.6006, L501.9985, L3100.0300, L3890.6301, L3890.6202, M100.651, BTSPAT, L501.9520 #### [facility] Laboratory [address] [place], [address] Absolute Neut 3.7 X10 3/uL Normal 2.0-7.[address] [facility] Comment on above: Performed By: #### L 100.0100, L3890.6006, L501.9985, L3100.0300, L3890.6301, L3890.6202, M100.651, BTSPAT, L501.9520 #### [facility] Laboratory [address] [place], [address] Basophils/100 WBC (Bld) 1.5 % High 0-1 [facility] Comment on above: Performed By: #### L 100.0100, L3890.6006, L501.9985, L3100.0300, L3890.6301, L3890.6202, M100.651, BTSPAT, L501.9520 #### [facility] [address] [place], [address] Eosinophils/100 WBC (Bld) 6.4 % High 0-[address] [facility] Comment on above: Performed By: #### L 100.0100, L3890.6006, L501.9985, L3100.0300, L3890.6301, L3890.6202, M100.651, BTSPAT, L501.9520 #### [facility] [address] [place], [address] Erythrocyte distribution width (RBC) [Ratio] 13.3 % Normal 11.6-14.[address] [facility] Comment on above: Performed By: #### L 100.0100, L3890.6006, L501.9985, L3100.0300, L3890.6301, L3890.6202, M100.651, BTSPAT, L501.9520 #### [facility] [address] [place], [address] Hematocrit (Bld) [Volume fraction] 36.1 % Low 40-[address] [facility] Comment on above: Performed By: #### L 100.0100, L3890.6006, L501.9985, L3100.0300, L3890.6301, L3890.6202, M100.651, BTSPAT, L501.9520 #### [facility] [address] [place], [address] Hemoglobin (Bld) [Mass/Vol] 12.1 g/dL Low 13.0-16.[address] [facility] Comment on above: Performed By: #### L 100.0100, L3890.6006, L501.9985, L3100.0300, L3890.6301, L3890.6202, M100.651, BTSPAT, L501.9520 #### [facility] [address] [place], [address] IG% 0.500 Normal 0.0-0.[address] [facility] Comment on above: Result Comment: IG% - Immature Granulocytes (promyelocytes, myelocytes and metamyelocytes) > 1% indicates that a LEFT SHIFT is Present. Performed By: #### L 100.0100, L3890.6006, L501.9985, L3100.0300, L3890.6301, L3890.6202, M100.651, BTSPAT, L501.9520 #### [facility] [address] [place], [address] Lymphocytes/100 WBC (Bld) 19.7 % Normal 19-[address] [facility] Comment on above: Performed By: #### L 100.0100, L3890.6006, L501.9985, L3100.0300, L3890.6301, L3890.6202, M100.651, BTSPAT, L501.9520 #### [facility] [address] [place], [address] MCH (RBC) [Entitic mass] 29.7 pg Normal 27.0-32.[address] [facility] Comment on above: Performed By: #### L 100.0100, L3890.6006, L501.9985, L3100.0300, L3890.6301, L3890.6202, M100.651, BTSPAT, L501.9520 #### [facility] [address] [place], [address] MCHC (RBC) [Mass/Vol] 33.5 g/dL Normal 32-36 [facility] Comment on above: Performed By: #### L 100.0100, L3890.6006, L501.9985, L3100.0300, L3890.6301, L3890.6202, M100.651, BTSPAT, L501.9520 #### [facility] [address] [place], [address] MCV (RBC) [Entitic vol] 88.5 fL Normal 80-94 [facility] Comment on above: Performed By: #### L 100.0100, L3890.6006, L501.9985, L3100.0300, L3890.6301, L3890.6202, M100.651, BTSPAT, L501.9520 #### [facility] [address] [place], [address] Monocytes/100 WBC (Bld) 11.1 % High 0-10 [facility] Comment on above: Performed By: #### L 100.0100, L3890.6006, L501.9985, L3100.0300, L3890.6301, L3890.6202, M100.651, BTSPAT, L501.9520 #### [facility] [address] [place], [address] Neutrophils/100 WBC (Bld) 60.8 % Normal 47-[address] [facility] Comment on above: Performed By: #### L 100.0100, L3890.6006, L501.9985, L3100.0300, L3890.6301, L3890.6202, M100.651, BTSPAT, L501.9520 #### [facility] [address] [place], [address] Nucleated RBC (Bld) [#/Vol] 0 10*3/uL Normal 0-[address] [facility] Comment on above: Performed By: #### L 100.0100, L3890.6006, L501.9985, L3100.0300, L3890.6301, L3890.6202, M100.651, BTSPAT, L501.9520 #### [facility] [address] [place], [address] Platelet mean volume (Bld) [Entitic vol] 10.7 fL Normal 6.2-12.[address] [facility] Comment on above: Performed By: #### L 100.0100, L3890.6006, L501.9985, L3100.0300, L3890.6301, L3890.6202, M100.651, BTSPAT, L501.9520 #### [facility] [address] [place], [address] Platelets (Bld) [#/Vol] 247 10*3/uL Normal 150-[address] [facility] Comment on above: Performed By: #### L 100.0100, L3890.6006, L501.9985, L3100.0300, L3890.6301, L3890.6202, M100.651, BTSPAT, L501.9520 #### [facility] [address] [place], [address] RBC (Bld) [#/Vol] 4.08 10*6/uL Low 4.6-6.2 [facility] Comment on above: Performed By: #### L 100.0100, L3890.6006, L501.9985, L3100.0300, L3890.6301, L3890.6202, M100.651, BTSPAT, L501.9520 #### [facility] [address] [place], [address] RDW SD 43.3 fl Normal 35.1-43.[address] [facility] Comment on above: Performed By: #### L 100.0100, L3890.6006, L501.9985, L3100.0300, L3890.6301, L3890.6202, M100.651, BTSPAT, L501.9520 #### [facility] [address] [facility] [place], [address] WBC (Bld) [#/Vol] 6.1 10*3/uL Normal 4.4-11.0 [facility] Comment on above: Performed By: #### L 100.0100, L3890.6006, L501.9985, L3100.0300, L3890.6301, L3890.6202, M100.651, BTSPAT, L501.9520 #### [facility] [address] [facility] [place], [address] Hemoglobin A1con 06-12-2024 HbA1c (Bld) [Mass fraction] 6.3 % Normal <=5.[address] [facility] Comment on above: Performed By: #### L 100.0100, L3890.6006, L501.9985, L3100.0300, L3890.6301, L3890.6202, M100.651, BTSPAT, L501.9520 #### [facility] [address] [facility] [place], [address] L3890.6006on 06-12-2024 HIV Non-Reactive Normal Nonreactive [facility] Comment on above: Result Comment: Non- Reactive Reactive Repeatedly reactive samples must be confirmed according to CDC recommended confirmatory algorithms. The subresults for either HIVAG or AHIV can be used as an aid in the selection of the confirmation algorithm for reactive samples. Send out specimens with Reactive results to [facility] for confirmation. Order the HIV antibody detection and differentiation: lc#[id number] Performed By: #### L 100.0100, L3890.6006, L501.9985, L3100.0300, L3890.6301, L3890.6202, M100.651, BTSPAT, L501.9520 ####[facility] [address] [facility] [place], [address] L3890.6202on 06-12-2024 HEP B Surf Ab Non-Reactive Normal [facility] Comment on above: Result Comment: <8.5 mIU/mL: Non-Reactive 8.5<= x <11.5 mIU/mL: Indeterminate >=11.5 mIU/mL: Reactive Non Reactive: Inconsistent with immunity less than <10 mIU/mL Reactive: Consistent with immunity greater than or equal to 10 mIU/mL Performed By: #### L 100.0100, L3890.6006, L501.9985, L3100.0300, L3890.6301, L3890.6202, M100.651, BTSPAT, L501.9520 ####[facility] [address] [facility]. [place], [place], [address] L3890.6301on 06-12-2024 Hepatitis C Ab Non-Reactive Normal Nonreactive [facility] Comment on above: Result Comment: Reac tive: Presumptive evidence of antibodies to HCV. Follow CDC recommendations for supplemental testing. Non-Reactive: Antibodies to HCV were not detected; does not exclude the possibility of exposure to HCV Reactive Results are presumptive evidence of antibodies to HCV. Follow CDC recommendations for supplemental testing. Order confirmation testing: HCV Quant by PCR testing - HCVPCR #[id number] Non Reactive: < 0.8 Equivocal: >/= 0.8 to < 1.0 Reactive: >/= 1.0 The CDC requires that a reactive/equivocal HCV antibody result be sent out for confirmation. HCV Quant by PCR testing. Performed By: #### L 100.0100, L3890.6006, L501.9985, L3100.0300, L3890.6301, L3890.6202, M100.651, BTSPAT, L501.9520 ####[facility] [address] [place], [address] MR/PATTIGREon 06-12-2024 MR/PAT.KIP [facility] Medical Records Department [address] [place] [address] PAT - Anesthesia 06/12/24 1211 MR#: [id number] Acct: [id number] Name: SINDY GREENFIELD Rep #: [id number] : 1950 74 From: Yunior Holman MD PCP: JOCELINE Morejon Status:PRE SDC Y Race: C [place] [facility] [place] Pre[place]Assessment Diagnosis/Proposed Procedure Planned Operative Procedure(s): Anterior Cervical Fusion C5-6 and C6-7, C3 and C4 anterior osteophyte removal Anesthesia History 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 When Was Last Pacemaker Check QUESTION #4 FULL TEXT: You/Your Family Experience fever (hyperthermia) with Anesthesia Last Oral Intake Last Oral intake: Last Oral Intake NPO since Meds taken in AM with sips of water? 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 Female No 06/12/24 11:05 HX of Motion Sickness No 06/12/24 11:05 HX of N/V After Surgery No 06/12/24 11:05 Non-Smoker Yes 06/12/24 11:05 Duration of Surgery greater Yes 06/12/24 11:05 than 60 minutes Number of Risk Factors 2 06/12/24 11:05 PONV Score Moderate Risk 06/12/24 11:05 Height Weight Height Weight: Anesthesia: Height Weight Height 5 ft 9 in 02/04/24 14:47 Respiratory Assessment Respiratory Assessment - director of securities and real estate: Respiratory Tract Infection Hx - 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 Has anyone observed you stop breathing during sleep? STOP Results Positive 06/12/24 11:05 QUESTION #5 FULL TEXT : Do you snore loudly (louder than talking or can be heard through closed doors)? 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 Specify any problems Hx of Preganancy in last 3 N/A 06/12/24 11:05 Months Nurse Filling Out Transfusion VCHRISTIN 06/12/24 11:05 Questions: Date: 06/12/24 06/12/24 11:05 Time: 11:06 06/12/24 11:05 Patient unable to answer at this time (ie. 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 Hx Now No 06/12/24 11:05 Gestational Age (in weeks): EDC: Hx Hx Para Hx Section SAB No 06/12/24 11:05 PFSH Medical History (Updated 06/12/24 @ 11:05 by Kathy Beverly) Open wound Thyroid disease Kidney stones Anemia Easy bruising Excessive bleeding CPAP (continuous positive airway pressure) dependence Sleep apnea History of pain when walking History of echocardiogram Cardiology follow-up encounter History of heart attack Preop cardiovascular exam SVT (supraventricular tachycardia) Supraventricular tachycardia Transient complete heart block Loss of hearing Wears glasses Cancer History of renal disease High cholesterol Dietary restriction Difficulty swallowing Non-smoker Neuropathy BPH (benign prostatic hyperplasia) Cholecystitis Hypothyroid Diabetes mellitus Leg cramping Sleep apnea treated with continuous positive airway pressure (CPAP) Hypertension Home Medications ???Medication ???Instructions ???Recorded ???Last Taken ???Type cqxemiff-ktv-gqtqr acid 0.4 (more content not included)... Normal [facility] Magnesiumon 06-12-2024 Magnesium [Mass/Vol] 2.2 mg/dL Normal 1.5-2.2 [facility] Comment on above: Performed By: #### L 501.5200 #### [facility] [address] [facility] [place], [place], [address] Thyroid Stim Hormone (TSH)on 06-12-2024 TSH 1.720 uIU/mL Normal 0.300-4.[address] [facility] Comment on above: Performed By: #### L 100.0100, L3890.6006, L501.9985, L3100.0300, L3890.6301, L3890.6202, M100.651, BTSPAT, L501.9520 ####[facility] [address] [facility]. [place], [place], [id number] Type AND Screen - PAT ONLYon 06-12-2024 Ab SCREEN GEL Negative Normal [facility] Comment on above: Order Comment: Surge ry Date: 06/26/24 Reason for Laboratory Test PRE-OP [id number] No N N S Anterior Cervical Fusion C5-6 and C6-7, C3 and C4 anter Performed By: #### L 100.0100, L3890.6006, L501.9985, L3100.0300, L3890.6301, L3890.6202, M100.651, BTSPAT, L501.9520 #### [facility] [address] [place], [address] Carotid Duplex Ultrasoundon 06-08-2024 Carotid Duplex Ultrasound [facility] [address] [place] [address] Carotid Duplex Ultrasound 06/08/24 1309 MR#: [id number] Acct: [id number] Name: SINDY GREENFIELD Rep #: [id number] : 1950 74 From: Senthil Noel MD Attending Dr: Jose Manuel Rocha SUPERVISOR TITLE-C Status: REG CLI Ordering Dr: Jose Manuel Rocha SUPERVISOR TITLE SUPERVISOR TITLE-C Date: 06/08/24 Location: [facility] Sex: M C Admitted: Reason For Study Reason For Study: Lightheadedness / Abnormal CT Rt. Velocities/BP Lt. Velocities/BP Prox CCA 56.7/10.6 cm/sec. Prox CCA 83.1/20.4 cm/sec. Mid CCA 69.9/19.3 cm/sec. Mid CCA 58.9/16.0 cm/sec. Dist CCA 50.1/11.7 cm/sec. Dist CCA 67.7/18.2 cm/sec. Prox ICA 300.5/104.4 cm/sec. Prox ICA 121.6/41.3 cm/sec. Mid ICA 200.6/52.2 cm/sec. Mid ICA 98.7/36.6 cm/sec. Dist ICA 99.3/20.5 cm/sec. Dist ICA 106.4/35.1 cm/sec. Rt. ICA/CCA = 4.3. Lt. ICA/CCA = 2.1. Prox ECA 125.5/5.0 cm/sec. Prox ECA 110.5/6.6 cm/sec. Rt. Vert. 35.4/9.2 cm/sec. Lt. Vert. 44.1/14.5 cm/sec. Right Extracranial There is heterogeneous, irregular atherosclerotic plaque noted in the right common carotid artery. There is heterogeneous, irregular atherosclerotic plaque noted in the right internal carotid artery. There is heterogeneous, irregular atherosclerotic plaque noted in the right external carotid artery. Antegrade flow is noted in the right vertebral artery. Left Extracranial There is heterogeneous, irregular atherosclerotic plaque noted in the left common carotid artery. There is heterogeneous, irregular atherosclerotic plaque noted in the left internal carotid artery. There is heterogeneous, irregular atherosclerotic plaque noted in the left external carotid artery. Antegrade flow is noted in the left vertebral artery. Procedure Carotid Duplex 73083. This is a Carotid Duplex examination using B-mode, color flow and specral Doppler. The exam was diagnostic. Exam performed in department. VL/Carotid Duplex Ultrasound Interpretation Summary Severe (>70%) stenosis right extracranial internal carotid. Mild (<50%) stenosis left extracranial internal carotid. Patent and antegrade vertebrals bilaterally. Ordering Physician: Jose Manuel Rocha Referring Physician: Mita Zaidi Performed By: Michael Epps, Rossi 06/08/24 175 Date Senthil Noel MD CC: JOCELINE Rocha; JOCELINE Zaidi Date Dictated: 06/08/24 1309 Date Transcribed: 06/08/241755 Shell Grader: Signed Normal [facility] Duplex ultrasound of carotid artery reportOrdered By: Senthil Noel on 06-08-2024 Study report [facility] [address] [place] [address] Carotid Duplex Ultrasound 06/08/24 1309 MR#: [id number] Acct: [id number] Name: SINDY GREENFIELD Rep #:[id number] : 1950 74 From: Senthil Hernández Attending Dr: JOCELINE Schmidt Sta tus: REG CLI Ordering Dr: Jose Manuel Rocha NP Date: 06/08/24 Location: [facility] Sex: M C Admitted: Reason For Study Reason For Study: Lightheadedness / Abnormal CT Rt. Velocities/BP Lt. Velocities/BP Prox CCA 56.7/10.6 cm/sec. Prox CCA 83.1/20.4 cm/sec. Mid CCA 69.9/19.3 cm/sec. Mid CCA 58.9/16.0 cm/sec. Dist CCA 50.1/11.7 cm/sec. Dist CCA 67.7/18.2 cm/sec. Prox ICA 300.5/104.4 cm/sec. Prox ICA 121.6/41.3 cm/sec. Mid ICA 200.6/52.2 cm/sec. Mid ICA 98.7/36.6 cm/sec. Dist ICA 99.3/20.5 cm/sec. Dist ICA 106.4/35.1 cm/sec. Rt. ICA/CCA = 4.3. Lt. ICA/CCA = 2.1. Prox ECA 125.5/5.0 cm/sec. Prox ECA 110.5/6.6 cm/sec. Rt. Vert. 35.4/9.2 cm/sec. Lt. Vert. 44.1/14.5 cm/sec. Right Extracranial There is heterogeneous, irregular atherosclerotic plaque noted in the right common carotid artery. There is heterogeneous, irregular atherosclerotic plaque noted in the right internal carotid artery. There is heterogeneous, irregular atherosclerotic plaque noted in the right external carotid artery. Antegrade flow is noted in the right vertebral artery. Left Extracranial There is heterogeneous, irregular atherosclerotic plaque noted in the left common carotid artery. There is heterogeneous, irregular atherosclerotic plaque noted in the left internal carotid artery. There is heterogeneous, irregular atherosclerotic plaque noted in the left external carotid artery. Antegrade flow is noted in the left vertebral artery. Procedure Carotid Duplex 19638. This is a Carotid Duplex examination using B-mode, color flow and specral Doppler. The exam was diagnostic. Exam performed in department. VL/Carotid Duplex Ultrasound Interpretation Summary Severe (>70%) stenosis right extracranial internal carotid. Mild (<50%) stenosis left extracranial internal carotid. Patent and antegrade vertebrals bilaterally. Ordering Physician: Jose Manuel Rocha Referring Physician: Mita Zaidi Performed By: Michael Epps, T 06/08/241755 Date _ Senthil Noel MD CC: SUPERVISOR TITLE-C Jose Manuel Rocha; SUPERVISOR TITLE-C Mita Zaidi ~ Date Dictated: 06/08/24 1309 Date Transcribed: 06/08/241755 Shell Grader: Signed [facility] Work Phone: 12 Lead EKG performed by [facility] on 06-07-2024 12 Lead EKG performed by [address] [address] 12 Lead EKG performed by [facility] 06/07/24 0931 MR#: [id number] Acct: [id number] Name: SINDY GREENFIELD Rep #: [id number] : 1950 74 From: Jose Manuel Rocha NP SUPERVISOR TITLE-C Attending Dr: Jose Manuel Rocha, BENNETTC Status: DEP AMB Ordering Dr: Jose Manuel Rocha NP SUPERVISOR TITLE-C Date: 06/07/24 [place] [facility] [place] M C Admitted: [facility]/12 Lead EKG performed by [facility] ECG Report Interpretation --Sinus Rhythm -First degree A-V block Sarah = 228-Inferior infarct -age undetermined. ABNORMAL No significant changes from ECG 06/02/2023Electronically signed on 06/07/2024 at 11:[address] Markell Daily Software Version 8610 06/07/24 1128 Date Jose Manuel CAR CC: JOCELINE Zaidi Date Dictated: 06/07/24930 Date Transcribed: 06/07/24930 Shell Grader: NICHO Signed Normal [facility] Cardiology Visit Reporton Cardiology Visit Report [facility] [address] [place] [address] OFFICE VISIT Date of Service: 06/07/24 MR#: [id number] Acct: [id number] Name: SINDY GREENFIELD Rep #: [id number] : 1950 Provider: JOCELINE sheridan Age/Sex: 74/M Location: [facility] Status: Signed HPI HPI History of Present Illness Details: Patient is a 74-year-old white male presents to the office today for a cardiovascular follow-up visit. He has a history of supraventricular tachycardia back in early May patient originally presented early in April 2023 with an acute inferior wall infarct complicated by transient complete heart block the patient re-presented with supraventricular tachycardia with heart rates in the 140 to 190 bpm he was near syncopal but did not have a true syncopal episode. He converted to adenosine in the emergency department sinus rhythm reinstituted metoprolol tartrate 25 mg twice daily and will monitor him on telemetry. He had no significant heart block and was discharged home and then followed up in 48 hours in cardiac rehab his heart rate appropriately increased with activity has had no recurrence of his near syncopal spells. Patient acknowledges chest [pain, discomfort, heaviness, tightness, pressure, constriction, squeezing] with [gradual sudden ] onset and lasts for [time]. This is located [retrosternal] and [does or does not radiate to left arm, jaw, or neck]. This is rated a []/10. Precipitating factors include [activity, emotional stress]. Relieving factors include [rest, NTG]. The pain is associated with [shortness of breath, nausea, vomiting, lightheadedness, confusion, presyncope, syncope, abdominal symptoms]. [He ] [denies acknowledges] noted discomfort previously. He denies palpitations. He denies bilateral lower extremity edema. He denies claudication. He denies shortness of breath with activity, shortness of breath at rest, orthopnea, or PND. He denies chronic cough. He denies significant, sudden weight gain. He acknowledges lightheadedness that is improving. He denies dizziness, near-syncope, or syncope. He denies blood in urine, blood in stool, or epistaxis. He denies fever with chills. He denies myalgia. He states fatigue. His exercise level has remained stable. Intake Vital Signs 02/04/24 14:47 06/07/24 09:33 Height 5 ft 9 in 5 ft 9 in Weight: 187 lb BMI 27.6 BP 176/69 H Blood Pressure Location Rt brachial Position Sitting Respiration 18 Pulse 73 Pulse Source NIBP Intake Visit Reasons: Cardiac Clearance Powertrain Design Engineer Required: No Is patient in pain?: No Allergies Mwevmvc-ZZN-GuZ Reductase Inhibitor (Gfrhjyc-Hrc-Jex Reductase Inhibitor) Adverse Reaction (Verified 06/07/24 09:39) leg cramps Ejection fraction %: 55 Have you fallen in the past year?: Yes PFSH Medical History Preop cardiovascular exam SVT (supraventricular tachycardia) Supraventricular tachycardia Transient complete heart block Loss of hearing Wears glasses Cancer History of renal disease High cholesterol Dietary restriction Difficulty swallowing Non-smoker Neuropathy BPH (benign prostatic hyperplasia) Cholecystitis Hypothyroid Diabetes mellitus Leg cramping Sleep apnea treated with continuous positive airway pressure (CPAP) Hypertension Surgical History Stented coronary artery ( 04/10/23) Hx of cardiac catheterization ( 04/10/23) Hx of total knee replacement Hx of colonoscopy S/P laparoscopic cholecystectomy History of tonsillectomy and adenoidectomy H/O prostatectomy Social History (Updated 06/07/24 @ 09:46 by Sonja Rose) household members: spouse current occupational status: retired Smoking Status: Never smoker alcohol intake: never substance use type: does not use caffeine: No ROS Const Const: Positive for fatigue (Tires more quickly); Negative for weakness Eyes Eyes: Negative for change in vision ENT ENT: Negative for dizziness or balance problems Cardio Chest Pain: Yes Frequency: other (once in last 3 months) Character: tightness Location: mid sternal Duration: minutes (1 minute or less) Palpitations: No Edema: None Muscle aches with walking: None Resp Respiratory: Negative for SOB with activity, SOB at rest or SOB orthopnea SOB lying down GI GI: Negative nausea or heartburn : Negative for hematuria or frequent nighttime urination/ nocturia Musc Musc: Negative for balance problems Skin Skin: Negative non-healing lesions or rash Neuro Neuro: Positive for lightheadedness (Improving); Negative for dizziness, near syncope, syncope or weakness Endo Endo: Positive for fatigue (Tires more quickly) Allergy Allergy/Immunology: Negative for rash Cardiology Exa (more content not included)... Normal [facility] Microalb:Creat Ratio,Random URon 05-04-2024 Creatinine [Mass/Vol] 77.00 mg/dL Normal NO RAN GE EST. [facility] Comment on above: Performed By: #### L 502.0250 ####[facility] [address] [facility]. [place], [place], [id number] MALB:CRE 41.7 mg/g CRE High <30 mg/g CRE [facility] Comment on above: Performed By: #### L 502.0250 ####[facility] [address] [facility]. [place], [place], [id number] MICROALBUMIN,UR 32.1 mg/L Normal NO RANGE EST. [facility] Comment on above: Performed By: #### L 502.0250 ####[facility] [address] [facility]. [place], [place], [address] Random urine microalbumin me asurementOrdered By: Siria Velazquez on 05-04-2024 Urine Random Microalbumin 32.1 mg/L NO RANGE EST. [facility] Urine albumin/creatinine rat io for detection of microalbuminuriaOrdered By: Siria Velazquez on 05-04-2024 Urine Microalbumin/Creatinine Ratio 41.7 mg/g CRE High <[address] [facility] Urine creatinine measurement (mass/volume)Ordered By: Siria Velazquez on 05-04-2024 Creatinine (U) [Mass/Vol] 77.00 mg/dL NO RANGE EST. [facility] Orthopedic Visit Reporton Orthopedic Visit Report [facility] [address] [place] [address] OFFICE VISIT Date of Service: 04/20/24 MR#: [id number] Acct: [id number] Name: SINDY GREENFIELD Rep #: [id number] : 1950 Provider: Dr. Yousif Bettencourt MD Age/Sex: 74/M Location: [facility] Status: Signed Intake Vital Signs 08/12/23 10:42 02/04/24 14:47 Height 5 ft 9.5 in 5 ft 9 in Intake Visit Reasons: CERVICAL SPINE Powertrain Design Engineer Required: No Accompanied by: Is patient in pain?: No Allergies Rbryvwv-ASD-YaE Reductase Inhibitor (Jotmiqt-Atm-Oys Reductase Inhibitor) Adverse Reaction (Verified 04/20/24 09:42) leg cramps Medications ???Medication ???Instructions ???Recorded ???Confirmed ???Type zerxfrao-lpk-xapsi acid 0.4 1 ea PO DAILY SUPPLEMENT' 01/08/13 04/20/24 History mg-lycopene 300 mcg-lutein 250 mcg tablet (Centrum Silver) potassium citrate 10 mEq (1,080 1,080 mg PO DAILY SUPPLEMENT 05/24/15 04/20/24 History mg) tablet,extended release (Urocit-K 10) fenofibrate nanocrystallized 145 145 mg PO DAILY CHOLESTEROL 10/19/17 04/20/24 History mg tablet ezetimibe 10 mg tablet 10 mg PO DAILY cholesterol 12/06/22 04/20/24 History vit C 250 mg-vit E 90 mg-zinc 40 1 tab PO BID eye health 12/06/22 04/20/24 History mg-copper 1 ip-jyhgsb-jfhwno capsule (PreserVision AREDS-2) losartan 100 mg tablet 100 mg PO DAILY blood pressure 04/10/23 04/20/24 History aspirin 81 mg tablet,delayed 81 mg PO DAILYCM heart health 90 04/13/23 04/20/24 Rx release days #90 tabs clopidogrel 75 mg tablet 75 mg PO DAILY anti platelet #90 04/13/23 04/20/24 Rx tabs glipizide 5 mg tablet 2.5 mg PO DINNER diabetes 04/26/23 04/20/24 History THERAWORX See Rx Instructions .Route .COMPLEX 05/18/23 04/20/24 History levothyroxine 100 mcg tablet 100 mcg PO DAILY thyroid 05/18/23 04/20/24 History metformin 1,000 mg tablet 1,000 mg PO BID DIABETES 05/18/23 04/20/24 History metoprolol tartrate 25 mg tablet 25 mg PO BID #180 tabs 06/07/23 04/20/24 Rx pravastatin 20 mg tablet 20 mg PO QHS #90 tabs 06/07/23 04/20/24 Rx sulfamethoxazole 800 1 tab PO BID 04/20/24 04/20/24 History mg-trimethoprim 160 mg tablet Have you fallen in the past year?: No PFSH Medical History SVT (supraventricular tachycardia) Supraventricular tachycardia Transient complete heart block Loss of hearing Wears glasses Cancer History of renal disease High cholesterol Dietary restriction Difficulty swallowing Non-smoker Neuropathy BPH (benign prostatic hyperplasia) Cholecystitis Hypothyroid Diabetes mellitus Leg cramping Sleep apnea treated with continuous positive airway pressure (CPAP) Hypertension Surgical History Stented coronary artery ( 04/10/23) Hx of cardiac catheterization ( 04/10/23) Hx of total knee replacement Hx of colonoscopy S/P laparoscopic cholecystectomy History of tonsillectomy and adenoidectomy H/O prostatectomy Social History household members: spouse current occupational status: retired Smoking Status: Never smoker HPI CERVICAL SPINE Details: This documentation accurately reflects the service provided and the decisions made by me, Dr. Yousif Bettencourt MD 04/20/24 7541. Part of today???s visit was documented by [ ], acting as scribe. SINDY GREENFIELD is a 74 year old M here today for surgical planning. Continues pressure and cramping in the neck. Continues to have difficulty swallowing, food choices are helpful. Current UTI tx with bactrim DS, reports currently on 3rd round of tx for UTI. Dr. Archibald following. Denies radiculopathy, numbness or tingling in neck or arms. Denies recent injections. Denies PT. Denies taking OTC for discomfort. Denies weakness although reports frequent fatigue despite sleeping well. Started taking another anti-biotic due to continuation of infections. Prostate was taken out a few years ago. Lime Trimmer is Dr. Markell Humphrey. Still having swallowing difficulties but states nothing has gotten stuck recently. Patient would like to move forward with surgery. Balance trouble. Pre-diabetic, A1C is at 6.0. 10/14/23: SINDY GREENFIELD is a 73 year old M here today for f/u from seeing Dr. Baez on his neck pain. Patient would like to discuss having surgery today. Pt. denies any changes from his visit with Dr. baez. He states that he doesn't have much pain mainly just pressure and cramping in the neck. He also has trouble swallowing food which he believes is from bone spurs pushing on his esophagus. Sindy is here to see me for the first time. He has seen Dr. Baez and his case was discussed with me about the possibility of removal of the anterior o (more content not included)... Normal [facility] Urine Cultureon 04-19-2024 URC Escherichia coli [place] Count 11,000-25,000 Escherichia coli: REACTION Ampicillin Islt JALEN 8 Ampicillin+Sulbac Islt JALEN <=2 S Cefepime Islt JALEN <=0.12 S cefTRIAXone Islt JALEN <=0.25 S Ciprofloxacin Islt JALEN >=4 R B-Lactamase Extended Susc Islt NEG Gentamicin Islt JALEN <=1 S levoFLOXacin Islt JALEN >=8 R Meropenem Islt JALEN <=0.25 S Nitrofurantoin Islt JALEN <=16 S Pip+Tazo Islt JALEN <=4 S TMP SMX Islt JALEN <=[address] [facility] Comment on above: Performed By: #### M 100.3221 ####[facility] [address] [place], [place], [address] Absolute lymphocyte countOrd ered By: Mita Zaidi on 04-18-2024 Lymphocytes Auto (Unsp spec) [#/Vol] 1.26 10*3/uL 0.83-4.[address] [facility] Absolute neutrophil countOrd ered By: [facility] on 04-18-2024 Neutrophils (Bld) [#/Vol] 3.4 10*3/uL 2.0-7.[address] [facility] Albumin to globulin ratioOrd ered By: [facility] on 04-18-2024 Albumin/Globulin [Mass ratio] 1.1 {ratio} 0.9-2.[address] [facility] Automated lymphocyte count a s percentage of total leukocytesOrdered By: [facility] on 04-18-2024 Lymphocytes/100 WBC Auto (Unsp spec) 22.2 % 19- [facility] Basophil percentageOrdered B y: [facility] on 04-18-2024 Basophils/100 WBC (Bld) 1.2 % High 0-1 [facility] Bilirubin, totalOrdered By: [facility] on 04-18-2024 Bilirubin [Mass/Vol] 0.50 mg/dL 0.20-1.00 [facility] Comment on above: For patients on eltr ombopag therapy, use of Dimension [place] TBIL is not recommended. Blood urea nitrogen (BUN)/cr eatinine ratioOrdered By: [facility] on 04-18-2024 Urea nitrogen/Creatinine [Mass ratio] 19.9 mg/mg 10-[address] [facility] CBC W/Diff, Automatedon 04-05 Absolute Lymph 1.26 X10 3/uL Normal 0.83-4.[address] [facility] Comment on above: Performed By: #### L 501.080 #### [facility] [address] [place], [address] Absolute Neut 3.4 X10 3/uL Normal 2.0-7.[address] [facility] Comment on above: Performed By: #### L 501.080 #### [facility] [address] [place], [address] Basophils/100 WBC (Bld) 1.2 % High 0-1 [facility] Comment on above: Performed By: #### L 501.080 #### [facility] [address] [place], [address] Eosinophils/100 WBC (Bld) 7.0 % High 0-[address] [facility] Comment on above: Performed By: #### L 501.080 #### [facility] [address] [place], [address] Erythrocyte distribution width (RBC) [Ratio] 13.7 % Normal 11.6-14.[address] [facility] Comment on above: Performed By: #### L 501.080 #### [facility] [address] [place], [address] Hematocrit (Bld) [Volume fraction] 35.9 % Low 40-[address] [facility] Comment on above: Performed By: #### L 501.080 #### [facility] [address] [place], [address] Hemoglobin (Bld) [Mass/Vol] 11.8 g/dL Low 13.0-16.[address] [facility] Comment on above: Performed By: #### L 501.080 #### [facility] [address] [place], [address] IG% 0.400 Normal 0.0-0.[address] [facility] Comment on above: Result Comment: IG% - Immature Granulocytes (promyelocytes, myelocytes and metamyelocytes) > 1% indicates that a LEFT SHIFT is Present. Performed By: #### L 501.080 #### [facility] [address] [place], [address] Lymphocytes/100 WBC (Bld) 22.2 % Normal 19-[address] [facility] Comment on above: Performed By: #### L 501.080 #### [facility] [address] [place], [address] MCH (RBC) [Entitic mass] 29.5 pg Normal 27.0-32.[address] [facility] Comment on above: Performed By: #### L 501.080 #### [facility] [address] [place], [address] MCHC (RBC) [Mass/Vol] 32.9 g/dL Normal 32-36 [facility] Comment on above: Performed By: #### L 501.080 #### [facility] [address] [place], [address] MCV (RBC) [Entitic vol] 89.8 fL Normal 80-94 [facility] Comment on above: Performed By: #### L 501.080 #### [facility] [address] [place], [address] Monocytes/100 WBC (Bld) 10.2 % High 0-10 [facility] Comment on above: Performed By: #### L 501.080 #### [facility] [address] [place], [address] Neutrophils/100 WBC (Bld) 59.0 % Normal 47-[address] [facility] Comment on above: Performed By: #### L 501.080 #### [facility] [address] [place], [address] Nucleated RBC (Bld) [#/Vol] 0 10*3/uL Normal 0-[address] [facility] Comment on above: Performed By: #### L 501.080 #### [facility] [address] [place], [address] Platelet mean volume (Bld) [Entitic vol] 10.6 fL Normal 6.2-12.[address] [facility] Comment on above: Performed By: #### L 501.080 #### [facility] [address] [place], [address] Platelets (Bld) [#/Vol] 245 10*3/uL Normal 150-[address] [facility] Comment on above: Performed By: #### L 501.080 #### [facility] [address] [place], [address] RBC (Bld) [#/Vol] 4.00 10*6/uL Low 4.6-6.2 [facility] Comment on above: Performed By: #### L 501.080 #### [facility] [address] [place], [address] RDW SD 45.1 fl High 35.1-43.[address] [facility] Comment on above: Performed By: #### L 501.080 #### [facility] [address] [place], [address] WBC (Bld) [#/Vol] 5.7 10*3/uL Normal 4.4-11.0 [facility] Comment on above: Performed By: #### L 501.080 #### [facility] [address] [place], [address] Carbon dioxide measurementOr dered By: Mita Zaidi on 04-18-2024 CO2 [Moles/Vol] 25.0 mmol/L 21.0-32.[address] [facility] Chloride measurementOrdered By: Mita Zaidi on 04-18-2024 Chloride [Moles/Vol] 111 mmol/L High 98-107 [facility] Comprehensive Metabolic Prof ilon 04-18-2024 Albumin [Mass/Vol] 3.9 g/dL Normal 3.2-5.0 [facility] Comment on above: Performed By: #### L 501.080 #### [facility] [address] [place], [address] Albumin/Globulin [Mass ratio] 1.1 {ratio} Normal 0.9-2.[address] [facility] Comment on above: Performed By: #### L 501.080 #### [facility] [address] [place], [address] ALK P 52 U/L Normal 45-[address] [facility] Comment on above: Performed By: #### L 501.080 #### [facility] [address] [place], [address] ALT [Catalytic activity/Vol] 18 U/L Normal 16-[address] [facility] Comment on above: Performed By: #### L 501.080 #### [facility] [address] [place], [address] AST [Catalytic activity/Vol] 12 U/L Low 15-[address] [facility] Comment on above: Performed By: #### L 501.080 #### [facility] [address] [place], [address] Bilirubin [Mass/Vol] 0.50 mg/dL Normal 0.20-1.00 [facility] Comment on above: Result Comment: For patients on eltrombopag therapy, use of Dimension [place] TBIL is not recommended. Performed By: #### L 501.080 #### [facility] [address] [place], [address] BUN/CRE 19.9 RATIO Normal 10-[address] [facility] Comment on above: Performed By: #### L 501.080 #### [facility] [address] [place], [address] CA,Total 8.9 mg/dL Normal 8.5-10.[address] [facility] Comment on above: Performed By: #### L 501.080 #### [facility] [address] [place], [address] Chloride [Moles/Vol] 111 mmol/L High 98-107 [facility] Comment on above: Performed By: #### L 501.080 #### [facility] [address] [place], [address] CO2 [Moles/Vol] 25.0 mmol/L Normal 21.0-32.[address] [facility] Comment on above: Performed By: #### L 501.080 #### [facility] [address] [place], [address] Creatinine [Mass/Vol] 1.46 mg/dL High 0.70-1.30 [facility] Comment on above: Result Comment: The validity of the calculated GFR GFRAA in patients over 70 years has not been determined. Clinical correlation is essential. Performed By: #### L 501.080 #### [facility] [address] [place], [address] EST GFR - AA 61 mL/min Normal >[address] [facility] Comment on above: Result Comment: Afri can [place]i GFR Calc Performed By: #### L 501.080 #### [facility] [address] [place], [address] GAP 5 Normal 5-[address] [facility] Comment on above: Performed By: #### L 501.080 #### [facility] [address] [place], [address] GFR/1.73 sq M.predicted among non-blacks MDRD (S/P/Bld) [Vol rate/Area] 50 mL/min/{1.73_m2} Low >[address] [facility] Comment on above: Result Comment: Non- GFR Calc Performed By: #### L 501.080 #### [facility] [address] [place], [address] Globulin (S) [Mass/Vol] 3.5 g/dL Normal 2.2-4.2 [facility] Comment on above: Performed By: #### L 501.080 #### [facility] [address] [place], [address] Glucose [Mass/Vol] 113 mg/dL High 74-106 [facility] Comment on above: Result Comment: Fast ing Glucose result from 100 to 125 mg/dL suggests IMPAIRED HOMEOSTASIS per A.D.A. criteria. Performed By: #### L 501.080 #### [facility] [address] [place], [address] Potassium [Moles/Vol] 4.1 mmol/L Normal 3.5-5.1 [facility] Comment on above: Performed By: #### L 501.080 #### [facility] [address] [place], [address] Sodium [Moles/Vol] 141 mmol/L Normal 136-145 [facility] Comment on above: Performed By: #### L 501.080 #### [facility] [address] [place], [address] T PROT 7.4 g/dL Normal 6.4-8.[address] [facility] Comment on above: Performed By: #### L 501.080 #### [facility] [address] [place], [address] Urea nitrogen [Mass/Vol] 29 mg/dL High 7-[address] [facility] Comment on above: Performed By: #### L 501.080 #### [facility] [address] [place], [address] Eosinophil percentageOrdered By: Mita Zaidi on 04-18-2024 Eosinophils/100 WBC (Bld) 7.0 % High 0-[address] [facility] Erythrocyte distribution wid th ratioOrdered By: Mita Zaidi on 04-18-2024 Erythrocyte distribution width (RBC) [Ratio] 13.7 % 11.6-14.[address] [facility] Erythrocyte distribution wid th standard deviationOrdered By: Mita Zaidi on 04-18-2024 Erythrocyte distribution width (RBC) [Entitic vol] 45.1 fL High 35.1-43.[address] [facility] Erythrocyte distribution width (RBC) [Ratio] 45.1 fl High 35.1-43.[address] [facility] Estimated glomerular filtrat ion rate (GFR) AmericanOrdered By: Mita Zaidi on 04-18-2024 Estimated GFR (MDRD) Amer 61 mL/min >[address] [facility] Comment on above: GFR Calc Glomerular filtration rate ( GFR) estimationOrdered By: Mita Zaidi on 04-18-2024 Estimated GFR (MDRD) Non-Af Amer 50 mL/min Low >[address] [facility] Comment on above: Non- GFR Calc GFR/1.73 sq M.predicted among non-blacks MDRD (S/P/Bld) [Vol rate/Area] 50 mL/min/{1.73_m2} Low >[address] [facility] Comment on above: Non- GFR Calc Glucose measurementOrdered B y: Mita Zaidi on 04-18-2024 Glucose [Mass/Vol] 113 mg/dL High 74-106 [facility] Comment on above: Fasting Glucose resu lt from 100 to 125 mg/dL suggests IMPAIRED HOMEOSTASIS per A.D.A. criteria. Hematocrit Auto (Bld) [Volum e fraction]Ordered By: Mita Zaidi on 04-18-2024 Hematocrit (Bld) [Volume fraction] 35.9 % Low 40-[address] [facility] Hemoglobin measurementOrdere d By: Mita Zaidi on 04-18-2024 Hemoglobin (Bld) [Mass/Vol] 11.8 g/dL Low 13.0-16.[address] [facility] High density lipoprotein (HD L) measurementOrdered By: Mita Zaidi on 04-18-2024 Cholesterol in HDL [Mass/Vol] 31 mg/dL Low >[address] [facility] Comment on above: The drugs N-Acetylcy steine and Metamizole may falsely depress this assay. Reference Range HDL <40 mg/dL Low HDL Cholesterol HDL >or= 60 mg/dL High HDL Cholesterol Immature granulocytes/100 WB C Auto (Bld)Ordered By: Mita Zaidi on 04-18-2024 Immature granulocytes/100 WBC (Bld) 0.400 % 0.0-0.[address] [facility] Comment on above: IG% - Immature Granu locytes (promyelocytes, myelocytes and metamyelocytes) > 1% indicates that a LEFT SHIFT is Present. Laboratory - Chemistry and C hemistry - challengeOrdered By: Mita Zaidi on 04-18-2024 AST [Catalytic activity/Vol] 12 U/L Low 15-[address] [facility] Lipid Profileon 04-18-2024 Cholesterol [Mass/Vol] 140 mg/dL Normal 200 [facility] Comment on above: Result Comment: <200 mg/dL Desirable 200-240 mg/dL Borderline >240 mg/dL High Risk Performed By: #### L 501.080 #### [facility] Laboratory [address] [place], [address] Cholesterol in HDL [Mass/Vol] 31 mg/dL Low [facility] Comment on above: Result Comment: The drugs N-Acetylcysteine and Metamizole may falsely depress this assay. Reference Range HDL <40 mg/dL Low HDL Cholesterol HDL >or= 60 mg/dL High HDL Cholesterol Performed By: #### L 501.080 #### [facility] Laboratory [address] [place], [address] Cholesterol in LDL [Mass/Vol] 72 mg/dL Normal 0-[address] [facility] Comment on above: Performed By: #### L 501.080 #### [facility] Laboratory [address] [place], [address] Cholesterol in VLDL [Mass/Vol] 37 mg/dL Normal 5-[address] [facility] Comment on above: Performed By: #### L 501.080 #### [facility] Laboratory [address] [place], [address] Triglyceride [Mass/Vol] 184 mg/dL Normal [facility] Comment on above: Result Comment: The drugs N-Acetylcysteine and Metamizole may falsely depress this assay. Serum Triglycerides Reference Interval Normal <150 mg/dL Borderline high 150 - 199 mg/dL High 200 - 499 mg/dL Very High > or = 500 mg/dL Performed By: #### L 501.080 #### [facility] [address] [place], [address] Low density lipoprotein (LDL ) cholesterol measurementOrdered By: Mita Zaidi on 04-18-2024 Cholesterol in LDL [Mass/Vol] 72 mg/dL 0-[address] [facility] Lymphocytes Auto (Unsp spec) [#/Vol]Ordered By: Mita Zaidi on 04-18-2024 Lymphocytes (Bld) [#/Vol] 1.26 10*3/uL 0.83-4.[address] [facility] Lymphocytes/100 WBC Auto (Un sp spec)Ordered By: Mita Zaidi on 04-18-2024 Lymphocytes/100 WBC (Bld) 22.2 % 19-[address] [facility] MCV (mean corpuscular volume ) determinationOrdered By: Mita Zaidi on 04-18-2024 MCV (RBC) [Entitic vol] 89.8 fL 80-94 [facility] Mean corpuscular hemoglobin (MCH) determinationOrdered By: Mita Zaidi on 04-18-2024 MCH (RBC) [Entitic mass] 29.5 pg 27.0-32.[address] [facility] Mean corpuscular hemoglobin concentration (MCHC) determinationOrdered By: Mita Zaidi on 04-18-2024 MCHC (RBC) [Mass/Vol] 32.9 g/dL 32-36 [facility] Mean platelet volume determi nationOrdered By: Mita Zaidi on 04-18-2024 Platelet mean volume (Bld) [Entitic vol] 10.6 fL 6.2-12.[address] [facility] Monocyte percentageOrdered B y: Mita Zaidi on 04-18-2024 Monocytes/100 WBC (Bld) 10.2 % High 0-10 [facility] Neutrophil percentageOrdered By: Mita Zaidi on 04-18-2024 Neutrophils/100 WBC (Bld) 59.0 % 47-[address] [facility] Nucleated red blood cell per centageOrdered By: Mita Zaidi on 04-18-2024 Nucleated RBC/100 WBC (Bld) [Ratio] 0 % 0-[address] [facility] Platelet countOrdered By: Ra lee ann Zaidi on 04-18-2024 Platelets (Bld) [#/Vol] 245 10*3/uL 150-[address] [facility] Potassium measurementOrdered By: Mita Zaidi on 04-18-2024 Potassium [Moles/Vol] 4.1 mmol/L 3.5-5.1 [facility] RBC Auto (Bld) [#/Vol]Ordere d By: Mita Zaidi on 04-18-2024 RBC (Bld) [#/Vol] 4.00 10*6/uL Low 4.6-6.2 [facility] Serum anion gap measurementO rdered By: Mita Zaidi on 04-18-2024 Anion gap [Moles/Vol] 5 mmol/L 5-15 [facility] Serum globulin measurementOr dered By: Mita Zaidi on 04-18-2024 Globulin (S) [Mass/Vol] 3.5 g/dL 2.2-4.2 [facility] Serum or plasma alanine ricci otransferase (ALT) measurementOrdered By: Mita Zaidi on 04-18-2024 ALT [Catalytic activity/Vol] 18 U/L 16-[address] [facility] Serum or plasma albumin jennifer urement (mass/volume)Ordered By: Mita Zaidi on 04-18-2024 Albumin [Mass/Vol] 3.9 g/dL 3.2-5.0 [facility] Serum or plasma alkaline hal sphatase measurementOrdered By: Mita Zaidi on 04-18-2024 ALP [Catalytic activity/Vol] 52 U/L 45-[address] [facility] Serum or plasma calcium jennifer urement (mass/volume)Ordered By: Mita Zaidi on 04-18-2024 Calcium [Mass/Vol] 8.9 mg/dL 8.5-10.1 [facility] Serum or plasma cholesterol measurement (mass/volume)Ordered By: Mita Zaidi on 04-18-2024 Cholesterol [Mass/Vol] 140 mg/dL <200 [facility] Comment on above: <200 mg/dL Desirable 200-240 mg/dL Borderline >240 mg/dL High Risk Serum or plasma creatinine m easurement (mass/volume)Ordered By: Mita Zaidi on 04-18-2024 Creatinine [Mass/Vol] 1.46 mg/dL High 0.70-1.30 [facility] Comment on above: The validity of the calculated GFR & GFRAA in patients over 70 years has not been determined. Clinical correlation is essential. Serum or plasma urea nitroge n measurement (mass/volume)Ordered By: Mita Zaidi on 04-18-2024 Urea nitrogen [Mass/Vol] 29 mg/dL High 7-[address] [facility] Sodium levelOrdered By: Cassie Zaidi on 04-18-2024 Sodium [Moles/Vol] 141 mmol/L 136-145 [facility] Total proteinOrdered By: Luis Zaidi on 04-18-2024 Protein [Mass/Vol] 7.4 g/dL 6.4-8.2 [facility] Triglycerides measurementOrd ered By: Mita Zaidi on 04-18-2024 Triglyceride [Mass/Vol] 184 mg/dL <199 [facility] Comment on above: The drugs N-Acetylcy steine and Metamizole may falsely depress this assay.Serum Triglycerides Reference Interval Normal <150 mg/dL Borderline high 150 - 199 mg/dL High 200 - 499 mg/dL Very High > or = 500 mg/dL Very low density lipoprotein (VLDL) cholesterol measurementOrdered By: Mita Zaidi on 04-18-2024 Very low density lipoprotein (VLDL) cholesterol measurement 37 mg/dL 5-[address] [facility] VLDL Cholesterol 37 mg/dL -[address] [facility] White blood cell (WBC) count Ordered By: Mita Zaidi on 04-18-2024 WBC (Bld) [#/Vol] 5.7 10*3/uL 4.4-11.0 [facility] Urine cultureOrdered By: Luis Zaidi on 04-17-2024 Bacteria identified Cx Nom (U) Escherichia coli Abnormal [facility] Urine Cultureon 02-27-2024 [facility] Escherichia coli [place] Count >100,000 Escherichia coli: REACTION Ampicillin Islt JALEN 8 Ampicillin+Sulbac Islt JALEN <=2 S ceFAZolin Islt JALEN <=4 S Cefepime Islt JALEN <=0.12 S cefTRIAXone Islt JALEN <=0.25 S Ciprofloxacin Islt JALEN >=4 R B-Lactamase Extended Susc Islt NEG Gentamicin Islt JALEN <=1 S Imipenem Islt JALEN <=0.25 S levoFLOXacin Islt JALEN >=8 R Nitrofurantoin Islt JALEN <=16 S Pip+Tazo Islt JALEN <=4 S Tobramycin Islt JALEN <=1 S TMP SMX Islt JALEN <=20 S Normal [facility] Comment on above: Performed By: #### L 100.0100 #### [facility] Laboratory [address] [place], [address] Urine cultureOrdered By: Luis Zaidi on 02-25-2024 Bacteria identified Cx Nom (U) Escherichia coli Abnormal [facility] Bedside Glucoseon 02-04-2024 FINGERSTICK GLU 112 mg/dL High 74-[address] [facility] Comment on above: Result Comment: NURYS MARINO OF PATIENT CARE PER NURSING PROTOCOL Performed By: #### L 501.080 ####[facility] [id number] [place], [address] Emergency Department Summary on 02-04-2024 Emergency Department Summary [facility] Medical Records Department [address] [facility] [place] [address] Emergency Department Summary 02/04/24 MR#: [id number] Acct: [id number] Name: SINDY GREENFIELD Rep #: [id number] : 1950 73 From: Ian Bernal DO PCP: Mita Zaidi, SUPERVISOR TITLE-C Status:DEP ER Location: ED HPI HPI - Fall History of Present Illness Chief Complaint: Fall Informant: patient and spouse/S.O. Narrative Narrative: 73-year-old male on Plavix presenting to the emergency room with fall. Patient's dog was pulling him when some other dogs came up to say hi. He fell down to the ground causing skin avulsion to the left medial palm skin abrasion to the medial left elbow and knee swelling/hematoma and skin tear to the left anterior knee. He states that is still bleeding and he wonders if he needs stitches. Unknown last tetanus. He put some liquid skin on the palm laceration and after it started burning did not want a put it on his knee. He states he is feeling Nicola. Tetanus Immunization: Unknown [facility] Medical History SVT (supraventricular tachycardia) Supraventricular tachycardia Transient complete heart block Loss of hearing Wears glasses Cancer History of renal disease High cholesterol Dietary restriction Difficulty swallowing Non-smoker Neuropathy BPH (benign prostatic hyperplasia) Cholecystitis Hypothyroid Diabetes mellitus Leg cramping Sleep apnea treated with continuous positive airway pressure (CPAP) Hypertension Home Medications ???Medication ???Instructions ???Recorded ???Last Taken ???Type oielmmve-vlb-hdsfp acid 0.4 1 ea PO DAILY SUPPLEMENT' 01/08/13 05/18/23 History mg-lycopene 300 mcg-lutein 250 mcg tablet (Centrum Silver) potassium citrate 10 mEq (1,080 1,080 mg PO DAILY SUPPLEMENT 05/24/15 05/18/23 History mg) tablet,extended release (Urocit-K 10) fenofibrate nanocrystallized 145 145 mg PO DAILY CHOLESTEROL 10/19/17 05/18/23 History mg tablet ezetimibe 10 mg tablet 10 mg PO DAILY cholesterol 12/06/22 05/18/23 History vit C 250 mg-vit E 90 mg-zinc 40 1 tab PO BID eye health 12/06/22 05/18/23 History mg-copper 1 ok-soifnw-pkbroi capsule (PreserVision AREDS-2) losartan 100 mg tablet 100 mg PO DAILY blood pressure 04/10/23 05/18/23 History aspirin 81 mg tablet,delayed 81 mg PO DAILYCM heart health 90 04/13/23 05/18/23 Rx release days #90 tabs clopidogrel 75 mg tablet 75 mg PO DAILY anti platelet #90 04/13/23 05/18/23 Rx tabs glipizide 5 mg tablet 2.5 mg PO DINNER diabetes 04/26/23 05/17/23 History THERAWORX See Rx Instructions .Route .COMPLEX 05/18/23 Unknown History levothyroxine 100 mcg tablet 100 mcg PO DAILY thyroid 05/18/23 05/18/23 History metformin 1,000 mg tablet 1,000 mg PO BID DIABETES 05/18/23 05/18/23 History metoprolol tartrate 25 mg tablet 25 mg PO BID #180 tabs 06/07/23 Unknown Rx pravastatin 20 mg tablet 20 mg PO QHS #90 tabs 06/07/23 Unknown Rx Allergy/AdvReac Type Severity Reaction Status Date / Time Rvegqcv-PJQ-FaG Reductase AdvReac leg cramps Verified 02/04/24 14:47 Inhibitor (Aubnvat-Arh-Wze Reductase Inhibitor) Surgical History Stented coronary artery ( 04/10/23) Hx of cardiac catheterization ( 04/10/23) Hx of total knee replacement Hx of colonoscopy S/P laparoscopic cholecystectomy History of tonsillectomy and adenoidectomy H/O prostatectomy Social History household members: spouse current occupational status: retired Smoking Status: Never smoker ROS ROS ED Constitutional Constitutional ED: Denies chills, fever(s) or weight loss Eyes Eyes: Denies change in vision or diplopia ENT ENT ED: Denies ear pain, rhinorrhea or sore throat Cardiovascular Cardiovascular: Denies chest pain, orthopnea, palpitations or racing heartbeat Respiratory/Chest Respiratory/Chest: Denies cough, dyspnea or orthopnea Gastrointestinal Gastrointestinal: Denies abdominal pain, diarrhea, nausea or vomiting Genitourinary Genitourinary ED: Denies dysuria, hematuria or urinary frequency Musculoskeletal Musculoskeletal: Reports other Details: See history of present illness ; Denies arthralgias or myalgias Integumentary Reports Abrasions; Denies abscess or rash Neurologic Neurologic: Denies headache(s) or weakness Psychiatric Psychiatric: Denies anxiety, depression, suicidal ideation or suicidal thoughts Endocrine Endocrinology: Denies polydipsia, polyphagia or polyuria Allergic/Immunologic Allergic/Immunologic ED: Denies mouth swelling, tongue swelling or urticaria EXAM Physical Exam Const Vital Signs: 02/04/24 14:47 02/04/24 18:46 02/04/24 19:47 Temperature 97 F L 98 F [place] (more content not included)... Normal [facility] Knee 4 or More Viewson 02-03 Knee 4 or More Views [facility] Imaging Services [address] [place] [address] Knee 4 or More Views MR#: [id number] Acct: [id number] Name: SINDY GREENFIELD Rep #: [id number] : 1950 M 73 From: Bharath pastrana MD PCP: JOCELINE Morejon Status: PRE ER Study: Knee 4 or More Views Date of Exam: 02/04/24 Exam# [id number] Ordering Dr: Carlito,Ed P. [id number] STUDY: X-RAY - LEFT KNEE REASON FOR EXAM: Male, 73 years old. Fall. Multiple abrasions. TECHNIQUE: view(s) of the knee. COMPARISON: None. FINDINGS: Normal visualized distal femur. Normal visualized proximal tibia and fibula. Prominence of the anterior tibial tuberosity. Normal proximal tibiofibular articulation. Normal medial femorotibial compartment. Normal lateral femorotibial compartment. Normal patellofemoral articulation. Pretibial soft tissue swelling RAD/Knee 4 or More Views IMPRESSION: Pretibial soft tissue swelling. No fracture is seen. Electronically Signed: Bharath Steen MD at 15:06 EDT Reading Location ID and State: [address] [place] [address] , Service support , CC: JOCELINE Zaidi; ED PHYSICIAN PROVIDER Shell Grader: Signed Normal [facility] Urine Cultureon 01-01-2024 [facility] Presumptive E. coli [place] Count >100,000 Presumptive E. coli: REACTION Ampicillin Islt JALEN >=32 R Ampicillin+Sulbac Islt JALEN 16 I ceFAZolin Islt JALEN <=4 S Cefepime Islt JALEN <=0.12 S cefTRIAXone Islt JALEN <=0.25 S Ciprofloxacin Islt JALEN >=4 R Ertapenem Islt JALEN <=0.12 S B-Lactamase Extended Susc Islt NEG Gentamicin Islt JALEN <=1 S Imipenem Islt JALEN <=0.25 S levoFLOXacin Islt JALEN >=8 R Nitrofurantoin Islt JALEN <=16 S Pip+Tazo Islt JALEN <=4 S Tobramycin Islt JALEN <=1 S TMP SMX Islt JALEN <=20 S Normal [facility] Comment on above: Performed By: #### L 501.080 #### [facility] Laboratory [employer] [address] [place], [place], [address] Comprehensive Metabolic Prof ilon 12-31-2023 Albumin [Mass/Vol] 3.9 g/dL Normal 3.2-5.0 [facility] Comment on above: Performed By: #### L 501.080 #### [facility] Laboratory [address] [place], [address] Albumin/Globulin [Mass ratio] 1.1 {ratio} Normal 0.9-2.[address] [facility] Comment on above: Performed By: #### L 501.080 #### [facility] [address] [place], [address] ALK P 57 U/L Normal 45-[address] [facility] Comment on above: Performed By: #### L 501.080 #### [facility] [address] [place], [address] ALT [Catalytic activity/Vol] 22 U/L Normal 16-[address] [facility] Comment on above: Performed By: #### L 501.080 #### [facility] [address] [place], [address] AST [Catalytic activity/Vol] 11 U/L Low 15-[address] [facility] Comment on above: Performed By: #### L 501.080 #### [facility] [address] [place], [address] Bilirubin [Mass/Vol] 0.30 mg/dL Normal 0.20-1.00 [facility] Comment on above: Result Comment: For patients on eltrombopag therapy, use of Dimension [place] TBIL is not recommended. Performed By: #### L 501.080 #### [facility] [address] [place], [address] BUN/CRE 17.5 RATIO Normal 10-[address] [facility] Comment on above: Performed By: #### L 501.080 #### [facility] [address] [place], [address] CA,Total 9.6 mg/dL Normal 8.5-10.[address] [facility] Comment on above: Performed By: #### L 501.080 #### [facility] [address] [place], [address] Chloride [Moles/Vol] 108 mmol/L High 98-107 [facility] Comment on above: Performed By: #### L 501.080 #### [facility] [address] [place], [address] CO2 [Moles/Vol] 26.0 mmol/L Normal 21.0-32.[address] [facility] Comment on above: Performed By: #### L 501.080 #### [facility] [address] [place], [address] Creatinine [Mass/Vol] 1.54 mg/dL High 0.70-1.30 [facility] Comment on above: Result Comment: The validity of the calculated GFR GFRAA in patients over 70 years has not been determined. Clinical correlation is essential. Performed By: #### L 501.080 #### [facility] [address] [place], [address] EST GFR - AA 57 mL/min Low >[address] [facility] Comment on above: Result Comment: Afri can [place]raini GFR Calc Performed By: #### L 501.080 #### [facility] [address] [place], [address] GAP 6 Normal 5-[address] [facility] Comment on above: Performed By: #### L 501.080 #### [facility] [address] [place], [address] GFR/1.73 sq M.predicted among non-blacks MDRD (S/P/Bld) [Vol rate/Area] 47 mL/min/{1.73_m2} Low >[address] [facility] Comment on above: Result Comment: Non- GFR Calc Performed By: #### L 501.080 #### [facility] [address] [place], [address] Globulin (S) [Mass/Vol] 3.5 g/dL Normal 2.2-4.2 [facility] Comment on above: Performed By: #### L 501.080 #### [facility] [address] [place], [address] Glucose [Mass/Vol] 116 mg/dL High 74-106 [facility] Comment on above: Result Comment: Fast ing Glucose result from 100 to 125 mg/dL suggests IMPAIRED HOMEOSTASIS per A.D.A. criteria. Performed By: #### L 501.080 #### [facility] [address] [place], [address] Potassium [Moles/Vol] 4.4 mmol/L Normal 3.5-5.1 [facility] Comment on above: Performed By: #### L 501.080 #### [facility] [address] [place], [address] Sodium [Moles/Vol] 139 mmol/L Normal 136-145 [facility] Comment on above: Performed By: #### L 501.080 #### [facility] [address] [place], [address] T PROT 7.4 g/dL Normal 6.4-8.[address] [facility] Comment on above: Performed By: #### L 501.080 #### [facility] [address] [place], [address] Urea nitrogen [Mass/Vol] 27 mg/dL High 7-[address] [facility] Comment on above: Performed By: #### L 501.080 #### [facility] [address] [place], [address] Hemoglobin A1con 12-31-2023 HbA1c (Bld) [Mass fraction] 6.2 % High 3.8-5.[address] [facility] Comment on above: Result Comment: Norm al < 5.7 % Prediabetic 5.7 - 6.4 % Diabetic >or= 6.5 % Please note range changes. Performed By: #### L 501.080 #### [facility] [address] [place], [address] Thyroid Stim Hormone (TSH)on 12-31-2023 TSH 1.710 uIU/mL Normal 0.358-3.[address] [facility] Comment on above: Performed By: #### L 501.080 #### [facility] [address] [place], [place], [address] Cardiology Visit Reporton Cardiology Visit Report [facility] [address] [place], [place] [address] OFFICE VISIT Date of Service: 11/29/23 MR#: [id number] Acct: [id number] Name: SINDY GREENFIELD Rep #: [id number] : 1950 Provider: JOCELINE coy Age/Sex: 73/M Location: [facility] Status: Signed HPI HPI History of Present Illness Details: Patient is a 73-year-old white male presents to the office today for a cardiovascular follow-up visit. He has a history of supraventricular tachycardia back in early May patient originally presented early in April 2023 with an acute inferior wall infarct complicated by transient complete heart block the patient re-presented with supraventricular tachycardia with heart rates in the 140 to 190 bpm he was near syncopal but did not have a true syncopal episode. He converted to adenosine in the emergency department sinus rhythm reinstituted metoprolol to tartrate 25 mg twice daily and will monitor him on telemetry. He had no significant heart block and was discharged home and then followed up in 48 hours in cardiac rehab his heart rate appropriately increased with activity has had no recurrence of his near syncopal spells. From a cardiac standpoint, the patient is doing well. He denies any palpitations, chest pain, pressure or heaviness. He denies SOB, Orthopnea, and PND. He does not have bleeding issues; no blood in urine, stool or nosebleeds. He denies any decrease in energy level, myalgias, or claudication. He does not have edema, or sudden weight gain. He denies dizziness, lightheadedness, syncopal or near syncopal episodes, and headaches. Intake Vital Signs 06/02/23 13:45 08/12/23 10:42 11/29/23 09:23 Height 5 ft 9.5 in 5 ft 9.5 in 5 ft 9.5 in Weight: 184 lb BMI 26.7 BP 133/72 H Blood Pressure Location Lt brachial Position Sitting Respiration 18 Pulse 62 Pulse Source Monitor Pulse Oximetry (%) 99 Intake Visit Reasons: 6 m fu Powertrain Design Engineer Required: No Is patient in pain?: No Allergies Lqfkbie-IMG-ByF Reductase Inhibitor (Rzmysxv-Vjf-Wtk Reductase Inhibitor) Adverse Reaction (Verified 11/29/23 09:36) leg cramps Medications ???Medication ???Instructions ???Recorded ???Confirmed ???Type bdrirpvp-vqy-hojeu acid 0.4 1 ea PO DAILY SUPPLEMENT' 01/08/13 11/29/23 History mg-lycopene 300 mcg-lutein 250 mcg tablet (Centrum Silver) potassium citrate 10 mEq (1,080 1,080 mg PO DAILY SUPPLEMENT 05/24/15 11/29/23 History mg) tablet,extended release (Urocit-K 10) fenofibrate nanocrystallized 145 145 mg PO DAILY CHOLESTEROL 10/19/17 11/29/23 History mg tablet ezetimibe 10 mg tablet 10 mg PO DAILY cholesterol 12/06/22 11/29/23 History vit C 250 mg-vit E 90 mg-zinc 40 1 tab PO BID eye health 12/06/22 11/29/23 History mg-copper 1 tz-tnwifw-zzbjzo capsule (PreserVision AREDS-2) losartan 100 mg tablet 100 mg PO DAILY blood pressure 04/10/23 11/29/23 History aspirin 81 mg tablet,delayed 81 mg PO DAILYCM heart health 90 04/13/23 11/29/23 Rx release days #90 tabs clopidogrel 75 mg tablet 75 mg PO DAILY anti platelet #90 04/13/23 11/29/23 Rx tabs glipizide 5 mg tablet 2.5 mg PO DINNER diabetes 04/26/23 11/29/23 History THERAWORX See Rx Instructions .Route .COMPLEX 05/18/23 11/29/23 History levothyroxine 100 mcg tablet 100 mcg PO DAILY thyroid 05/18/23 11/29/23 History metformin 1,000 mg tablet 1,000 mg PO BID DIABETES 05/18/23 11/29/23 History metoprolol tartrate 25 mg tablet 25 mg PO BID #180 tabs 06/07/23 11/29/23 Rx pravastatin 20 mg tablet 20 mg PO QHS #90 tabs 06/07/23 11/29/23 Rx Have you fallen in the past year?: No PFSH Medical History SVT (supraventricular tachycardia) Supraventricular tachycardia Transient complete heart block Loss of hearing Wears glasses Cancer History of renal disease High cholesterol Dietary restriction Difficulty swallowing Non-smoker Neuropathy BPH (benign prostatic hyperplasia) Cholecystitis Hypothyroid Diabetes mellitus Leg cramping Sleep apnea treated with continuous positive airway pressure (CPAP) Hypertension Surgical History Stented coronary artery ( 04/10/23) Hx of cardiac catheterization ( 04/10/23) Hx of total knee replacement Hx of colonoscopy S/P laparoscopic cholecystectomy History of tonsillectomy and adenoidectomy H/O prostatectomy Social History household members: spouse current occupational status: retired Smoking Status: Never smoker ROS Const Const: Negative for fatigue, weakness, fever(s), headache(s), chills, frequent falls, weight gain or weight loss Eyes Eyes: Negative for blind spots, loss of (more content not included)... Normal [facility] Comprehensive Metabolic Prof ilon 11-25-2023 Albumin [Mass/Vol] 3.8 g/dL Normal 3.2-5.0 [facility] Comment on above: Order Comment: DR. Elia PIKE ORDERED PSADPA.GAMAL CHRISTIAN CMP,TSH,A1C Performed By: #### L 500.4050, L501.9940, L501.9985, L501.9520 ####[facility] [address] [place], [address] Albumin/Globulin [Mass ratio] 1.1 {ratio} Normal 0.9-2.[address] [facility] Comment on above: Order Comment: DR. Elia PIKE ORDERED PSADPA.GAMAL GRANADOSD CMP,TSH,A1C Performed By: #### L 500.4050, L501.9940, L501.9985, L501.9520 ####[facility] [address] [place], [address] ALK P 59 U/L Normal 45-[address] [facility] Comment on above: Order Comment: DR. Elia PIKE ORDERED PSADPA.GAMAL TELLESTHERESA CMP,TSH,A1C Performed By: #### L 500.4050, L501.9940, L501.9985, L501.9520 ####[facility] [address] [place], [address] ALT [Catalytic activity/Vol] 22 U/L Normal 16-[address] [facility] Comment on above: Order Comment: DR. Elia PIKE ORDERED PSADPA.GAMAL TELLESTHERESA CMP,TSH,A1C Performed By: #### L 500.4050, L501.9940, L501.9985, L501.9520 ####[facility] [address] [place], [address] AST [Catalytic activity/Vol] 14 U/L Low 15-[address] [facility] Comment on above: Order Comment: DR. Elia PIKE ORDERED PSADPA.GAMAL GRANADOSD CMP,TSH,A1C Performed By: #### L 500.4050, L501.9940, L501.9985, L501.9520 ####[facility] [address] [place], [address] Bilirubin [Mass/Vol] 0.40 mg/dL Normal 0.20-1.00 [facility] Comment on above: Order Comment: DR. Elia PIKE ORDERED PSADPA.GAMAL TELLESDERD CMP,TSH,A1C Result Comment: For patients on eltrombopag therapy, use of Dimension [place] TBIL is not recommended. Performed By: #### L 500.4050, L501.9940, L501.9985, L501.9520 ####[facility] [address] [place], [address] BUN/CRE 21.5 RATIO High 10-[address] [facility] Comment on above: Order Comment: DR. Elia PIKE ORDERED PSADPA.GAMAL CHRISTIAN CMP,TSH,A1C Performed By: #### L 500.4050, L501.9940, L501.9985, L501.9520 ####[facility] [address] [place], [address] CA,Total 8.9 mg/dL Normal 8.5-10.[address] [facility] Comment on above: Order Comment: DR. Elia PIKE ORDERED PSADPA.GAMAL CHRISTIAN CMP,TSH,A1C Performed By: #### L 500.4050, L501.9940, L501.9985, L501.9520 ####[facility] [address] [place], [address] Chloride [Moles/Vol] 105 mmol/L Normal 98-107 [facility] Comment on above: Order Comment: DR. Elia PIKE ORDERED PSADPA.GAMAL CHRISTIAN CMP,TSH,A1C Performed By: #### L 500.4050, L501.9940, L501.9985, L501.9520 ####[facility] [address] [place], [address] CO2 [Moles/Vol] 24.0 mmol/L Normal 21.0-32.[address] [facility] Comment on above: Order Comment: DR. Elia PIKE ORDERED PSADPA.GAMAL CHRISTIAN CMP,TSH,A1C Performed By: #### L 500.4050, L501.9940, L501.9985, L501.9520 ####[facility] [address] [place], [address] Creatinine [Mass/Vol] 1.49 mg/dL High 0.70-1.30 [facility] Comment on above: Order Comment: DR. Elia PIKE ORDERED PSADPA.GAMAL CHRISTIAN CMP,TSH,A1C Result Comment: The validity of the calculated GFR GFRAA in patients over 70 years has not been determined. Clinical correlation is essential. Performed By: #### L 500.4050, L501.9940, L501.9985, L501.9520 ####[facility] [address] [place], [address] EST GFR - AA 59 mL/min Low >[address] [facility] Comment on above: Order Comment: DR. Elia PIKE ORDERED PSADPA.YEUNGTY CHRISTIAN CMP,TSH,A1C Result Comment: Afri can Bahraini GFR Calc Performed By: #### L 500.4050, L501.9940, L501.9985, L501.9520 ####[facility] [address] [place], [address] GAP 11 Normal 5-[address] [facility] Comment on above: Order Comment: DR. Elia PIKE ORDERED PSADPA.GAMAL CHRISTIAN CMP,TSH,A1C Performed By: #### L 500.4050, L501.9940, L501.9985, L501.9520 ####[facility] [address] [place], [address] GFR/1.73 sq M.predicted among non-blacks MDRD (S/P/Bld) [Vol rate/Area] 49 mL/min/{1.73_m2} Low >[address] [facility] Comment on above: Order Comment: DR. Elia PIKE ORDERED PSADPA.YEUNGTY CHRISTIAN CMP,TSH,A1C Result Comment: Non- GFR Calc Performed By: #### L 500.4050, L501.9940, L501.9985, L501.9520 ####[facility] [address] [place], [address] Globulin (S) [Mass/Vol] 3.5 g/dL Normal 2.2-4.2 [facility] Comment on above: Order Comment: DR. Elia PIKE ORDERED PSADPA.GAMAL CHRISTIAN CMP,TSH,A1C Performed By: #### L 500.4050, L501.9940, L501.9985, L501.9520 ####[facility] [address] [place], [address] Glucose [Mass/Vol] 194 mg/dL High 74-106 [facility] Comment on above: Order Comment: DR. Elia PIKE ORDERED PSADPA.GAMAL CHRISTIAN CMP,TSH,A1C Result Comment: Fast ing Glucose result greater than or equal to 126 mg/dL suggests DIABETES MELLITUS per A.D.A. criteria. Performed By: #### L 500.4050, L501.9940, L501.9985, L501.9520 ####[facility] [address] [place], [address] Potassium [Moles/Vol] 4.6 mmol/L Normal 3.5-5.1 [facility] Comment on above: Order Comment: DR. Elia PIKE ORDERED PSADPA.GAMAL CHRISTIAN CMP,TSH,A1C Performed By: #### L 500.4050, L501.9940, L501.9985, L501.9520 ####[facility] [address] [place], [address] Sodium [Moles/Vol] 140 mmol/L Normal 136-145 [facility] Comment on above: Order Comment: DR. Elia PIKE ORDERED PSADPA.GAMAL CHRISTIAN CMP,TSH,A1C Performed By: #### L 500.4050, L501.9940, L501.9985, L501.9520 ####[facility] [address] [place], [address] T PROT 7.3 g/dL Normal 6.4-8.[address] [facility] Comment on above: Order Comment: DR. Elia PIKE ORDERED PSADPA.GAMAL CHRISTIAN CMP,TSH,A1C Performed By: #### L 500.4050, L501.9940, L501.9985, L501.9520 ####[facility] [address] [place], [address] Urea nitrogen [Mass/Vol] 32 mg/dL High 7-[address] [facility] Comment on above: Order Comment: DR. Elia PIKE ORDERED PSADPA.GAMAL CHRISTIAN CMP,TSH,A1C Performed By: #### L 500.4050, L501.9940, L501.9985, L501.9520 ####[facility] [address] [place], [address] Hemoglobin A1con 11-24-2023 HbA1c (Bld) [Mass fraction] 5.8 % High 3.8-5.[address] [facility] Comment on above: Order Comment: DR. Elia PIKE ORDERED PSADPA.GAMAL CHRISTIAN CMP,TSH,A1C Result Comment: Norm al < 5.7 % Prediabetic 5.7 - 6.4 % Diabetic >or= 6.5 % Please note range changes. Performed By: #### L 500.4050, L501.9940, L501.9985, L501.9520 ####[facility] [address] [place], [address] PSA,Total- Diagnosticon 11-04 PSA, DIAGNOSTIC < 0.01 Normal 0.0-4.[address] [facility] Comment on above: Order Comment: DR. Elia PIKE ORDERED PSADPA.YEUNG [facility] CMP,TSH,A1C Result Comment: This test was performed using the TPSA assay method for the [employer] chemistry system. Values obtained with different assay methods cannot be used interchangably. When changing PSA assays in the course of monitoring a patient, additional sequential testing should be carried out to confirm baseline values. Performed By: #### L 500.4050, L501.9940, L501.9985, L501.9520 ####[facility] [address] [place], [address] Thyroid Stim Hormone (TSH)on 11-25-2023 TSH 4.270 uIU/mL High 0.358-3.[address] [facility] Comment on above: Order Comment: DR. Elia PIKE ORDERED PSADPA.GAMAL CHRISTIAN CMP,TSH,A1C Performed By: #### L 500.4050, L501.9940, L501.9985, L501.9520 ####[facility] [address] [place], [address] CPK Total, Creatine Kinaseon 10-28-2023 CPK TOTAL 85 U/L Normal 39-[address] [facility] Comment on above: Performed By: #### L 501.080 #### [facility] [address] [place], [address] Comprehensive Metabolic Prof ilon 10-28-2023 Albumin [Mass/Vol] 3.7 g/dL Normal 3.2-5.0 [facility] Comment on above: Performed By: #### L 501.080 #### [facility] [address] [place], [address] Albumin/Globulin [Mass ratio] 1.1 {ratio} Normal 0.9-2.[address] [facility] Comment on above: Performed By: #### L 501.080 #### [facility] [address] [place], [address] ALK P 48 U/L Normal 45-[address] [facility] Comment on above: Performed By: #### L 501.080 #### [facility] [address] [place], [address] ALT [Catalytic activity/Vol] 21 U/L Normal 16-[address] [facility] Comment on above: Performed By: #### L 501.080 #### [facility] [address] [place], [address] AST [Catalytic activity/Vol] 14 U/L Low 15-[address] [facility] Comment on above: Performed By: #### L 501.080 #### [facility] [address] [place], [address] Bilirubin [Mass/Vol] 0.40 mg/dL Normal 0.20-1.00 [facility] Comment on above: Result Comment: For patients on eltrombopag therapy, use of Dimension [place] TBIL is not recommended. Performed By: #### L 501.080 #### [facility] [address] [place], [address] BUN/CRE 21.4 RATIO High 10-[address] [facility] Comment on above: Performed By: #### L 501.080 #### [facility] [address] [place], [address] CA,Total 8.5 mg/dL Normal 8.5-10.[address] [facility] Comment on above: Performed By: #### L 501.080 #### [facility] [address] [place], [address] Chloride [Moles/Vol] 111 mmol/L High 98-107 [facility] Comment on above: Performed By: #### L 501.080 #### [facility] [address] [place], [address] CO2 [Moles/Vol] 24.0 mmol/L Normal 21.0-32.[address] [facility] Comment on above: Performed By: #### L 501.080 #### [facility] [address] [place], [address] Creatinine [Mass/Vol] 1.45 mg/dL High 0.70-1.30 [facility] Comment on above: Result Comment: The validity of the calculated GFR GFRAA in patients over 70 years has not been determined. Clinical correlation is essential. Performed By: #### L 501.080 #### [facility] [address] [place], [address] EST GFR - AA 61 mL/min Normal >[address] [facility] Comment on above: Result Comment: Afri can Bahraini GFR Calc Performed By: #### L 501.080 #### [facility] [address] [place], [address] GAP 6 Normal 5-[address] [facility] Comment on above: Performed By: #### L 501.080 #### [facility] [address] [place], [address] GFR/1.73 sq M.predicted among non-blacks MDRD (S/P/Bld) [Vol rate/Area] 51 mL/min/{1.73_m2} Low >[address] [facility] Comment on above: Result Comment: Non- GFR Calc Performed By: #### L 501.080 #### [facility] [address] [place], [address] Globulin (S) [Mass/Vol] 3.5 g/dL Normal 2.2-4.2 [facility] Comment on above: Performed By: #### L 501.080 #### [facility] [address] [place], [address] Glucose [Mass/Vol] 106 mg/dL Normal 74-106 [facility] Comment on above: Result Comment: Fast ing Glucose result from 100 to 125 mg/dL suggests IMPAIRED HOMEOSTASIS per A.D.A. criteria. Performed By: #### L 501.080 #### [facility] [address] [place], [address] Potassium [Moles/Vol] 4.0 mmol/L Normal 3.5-5.1 [facility] Comment on above: Performed By: #### L 501.080 #### [facility] [address] [place], [address] Sodium [Moles/Vol] 141 mmol/L Normal 136-145 [facility] Comment on above: Performed By: #### L 501.080 #### [facility] [address] [place], [address] T PROT 7.2 g/dL Normal 6.4-8.[address] [facility] Comment on above: Performed By: #### L 501.080 #### [facility] [address] [place], [address] Urea nitrogen [Mass/Vol] 31 mg/dL High 7-[address] [facility] Comment on above: Performed By: #### L 501.080 #### [facility] [address] [place], [address] Hemoglobin A1con 10-28-2023 HbA1c (Bld) [Mass fraction] 5.9 % High 3.8-5.[address] [facility] Comment on above: Result Comment: Norm al < 5.7 % Prediabetic 5.7 - 6.4 % Diabetic >or= 6.5 % Please note range changes. Performed By: #### L 501.080 #### [facility] [address] [place], [address] Lipid Profileon 10-28-2023 Cholesterol [Mass/Vol] 139 mg/dL Normal 200 [facility] Comment on above: Result Comment: <200 mg/dL Desirable 200-240 mg/dL Borderline >240 mg/dL High Risk Performed By: #### L 501.080 #### [facility] [address] [place], [address] Cholesterol in HDL [Mass/Vol] 29 mg/dL Low [facility] Comment on above: Result Comment: The drugs N-Acetylcysteine and Metamizole may falsely depress this assay. Reference Range HDL <40 mg/dL Low HDL Cholesterol HDL >or= 60 mg/dL High HDL Cholesterol Performed By: #### L 501.080 #### [facility] [address] [place], [address] Cholesterol in LDL [Mass/Vol] 70 mg/dL Normal 0-[address] [facility] Comment on above: Performed By: #### L 501.080 #### [facility] [address] [place], [address] Cholesterol in VLDL [Mass/Vol] 40 mg/dL Normal 5-[address] [facility] Comment on above: Performed By: #### L 501.080 #### [facility] [address] [place], [address] Triglyceride [Mass/Vol] 202 mg/dL High [facility] Comment on above: Result Comment: The drugs N-Acetylcysteine and Metamizole may falsely depress this assay. Serum Triglycerides Reference Interval Normal <150 mg/dL Borderline high 150 - 199 mg/dL High 200 - 499 mg/dL Very High > or = 500 mg/dL Performed By: #### L 501.080 #### [facility] [address] [place] [place], [address] Thyroid Stim Hormone (TSH)on 10-28-2023 TSH 4.34 uIU/mL High 0.358-3.[address] [facility] Comment on above: Performed By: #### L 501.080 #### [facility] [address] [place], [address] Cerv Spine 2 or 3 Viewson Cerv Spine 2 or 3 Views [facility] [address] [place] [address] Cerv Spine 2 or 3 Views MR#: [id number] Acct: [id number] Name: SINDY GREENFIELD Rep #: [id number] : 1950 M 73 From: Charles Kelly MD PCP: JOCELINE Morejon Status: DEP AMB Study: Cerv Spine 2 or 3 Views Date of Exam: 10/14/23 Exam# [id number] Ordering Dr: Yousif Bettencourt MD [id number] STUDY: X-RAY - CERVICAL SPINE REASON FOR EXAM: Male, 73 years old. cerv stenosis -- Please do flexion-extension only TECHNIQUE: 2 view(s) of the cervical spine were obtained. COMPARISON: 08/12/2023 FINDINGS: Normal anterior atlantoaxial articulation. Normal odontoid process. Normal cervical lordosis. 2 mm retrolisthesis of C6 on C7 which is unchanged on the flexion and extension views. There is multi-level endplate spondylosis. There is multi-level degenerative disc disease with multilevel disc space narrowing. Normal visualized intervertebral neuroforamina. The soft tissue structures are unremarkable. 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 Electronically Signed: Charles Kelly MD at 17:53 EDT , CC: JOCELINE Zaidi; Dr. Yousif Bettencourt MD Shell Grader: Signed Normal [facility] Orthopedic Visit Reporton Orthopedic Visit Report [facility] [address] [place] [address] [address] [place] [address] OFFICE VISIT Date of Service: 10/14/23 MR#: [id number] Acct: [id number] Name: SINDY GREENFIELD Rep #: [id number] : 1950 Provider: Dr. Yousif Bettencourt MD Age/Sex: 73/M Location: [facility] Status: Signed Intake Vital Signs 08/12/23 10:42 Height 5 ft 9.5 in Intake Visit Reasons: CERVICAL SPINE Accompanied by: Allergies [place]-UFW-HfO Reductase Inhibitor (Msgfgcw-Jje-Oxp Reductase Inhibitor) Adverse Reaction (Verified 10/14/23 09:50) leg cramps Medications ???Medication ???Instructions ???Recorded ???Confirmed ???Type yuhnzcet-owa-lwbvm acid 0.4 1 ea PO DAILY SUPPLEMENT' 01/08/13 10/14/23 History mg-lycopene 300 mcg-lutein 250 mcg tablet (Centrum Silver) potassium citrate 10 mEq (1,080 1,080 mg PO DAILY SUPPLEMENT 05/24/15 10/14/23 History mg) tablet,extended release (Urocit-K 10) fenofibrate nanocrystallized 145 145 mg PO DAILY CHOLESTEROL 10/19/17 10/14/23 History mg tablet ezetimibe 10 mg tablet 10 mg PO DAILY cholesterol 12/06/22 10/14/23 History vit C 250 mg-vit E 90 mg-zinc 40 1 tab PO BID eye health 12/06/22 10/14/23 History mg-copper 1 dj-euenbj-xevvqv capsule (PreserVision AREDS-2) losartan 100 mg tablet 100 mg PO DAILY blood pressure 04/10/23 10/14/23 History aspirin 81 mg tablet,delayed 81 mg PO DAILYCM heart health 90 04/13/23 10/14/23 Rx release days #90 tabs clopidogrel 75 mg tablet 75 mg PO DAILY anti platelet #90 04/13/23 10/14/23 Rx tabs glipizide 5 mg tablet 2.5 mg PO DINNER diabetes 04/26/23 10/14/23 History THERAWORX See Rx Instructions .Route .COMPLEX 05/18/23 10/14/23 History levothyroxine 100 mcg tablet 100 mcg PO DAILY thyroid 05/18/23 10/14/23 History metformin 1,000 mg tablet 1,000 mg PO BID DIABETES 05/18/23 10/14/23 History metoprolol tartrate 25 mg tablet 25 mg PO BID #180 tabs 06/07/23 10/14/23 Rx pravastatin 20 mg tablet 20 mg PO QHS #90 tabs 06/07/23 10/14/23 Rx Have you fallen in the past year?: No [facility] Medical History SVT (supraventricular tachycardia) Supraventricular tachycardia Transient complete heart block Loss of hearing Wears glasses Cancer History of renal disease High cholesterol Dietary restriction Difficulty swallowing Non-smoker Neuropathy BPH (benign prostatic hyperplasia) Cholecystitis Hypothyroid Diabetes mellitus Leg cramping Sleep apnea treated with continuous positive airway pressure (CPAP) Hypertension Surgical History Stented coronary artery ( 04/10/23) Hx of cardiac catheterization ( 04/10/23) Hx of total knee replacement Hx of colonoscopy S/P laparoscopic cholecystectomy History of tonsillectomy and adenoidectomy H/O prostatectomy Social History household members: spouse current occupational status: retired Smoking Status: Never smoker HPI CERVICAL SPINE Details: This documentation accurately reflects the service provided and the decisions made by me, Dr. Yousif Bettencourt MD 10/14/23 0946. Part of today???s visit was documented by Izabela GONSALVES, acting as scribe. SINDY GREENFIELD is a 73 year old M here today for f/u from seeing Dr. Baez on his neck pain. Patient would like to discuss having surgery today. Pt. denies any changes from his visit with Dr. baez. He states that he doesn't have much pain mainly just pressure and cramping in the neck. He also has trouble swallowing food which he believes is from bone spurs pushing on his esophagus. Sindy is here to see me for the first time. He has seen Dr. Baez and his case was discussed with me about the possibility of removal of the anterior osteophytes at C3-4 for dysphagia. He has seen Dr. Ballard and ENT who had initially discussed with Dr. Baez about his dysphagia. Patient also notes axial neck pain. He also has some only difficulty with dexterity and progressive balance problems. Based on discussion with Dr. Baez, the plan was to address both the anterior osteophytes as well as decompression from C3-7. On further questioning and history taking with him today, patient reveals that he underwent a cardiac stent in April of this year and is on Plavix and baby aspirin. He will likely need 12 full months of Plavix. He mentioned that his dysphagia symptoms are stable and related to ground meat and bread. He has undergone evaluation with swallowing imaging. He denies any aspiration. He denies any radicular pain into the upper extremities. He does feel that he has early difficulty with dexterity with smaller objects dropping from his hand and trouble coordination. He also notices that his balance is slowly but surely w (more content not included)... Normal [facility] Basophil percentageOrdered B y: Tone Elio on 07-20-2023 Creatinine [Mass/Vol] 1.5 mg/dL 0.70-1.30 [facility] Laboratory - Chemistry and C hemistry - challengeOrdered By: Tone Ballard on 07-20-2023 GFR/1.73 sq M.predicted among non-blacks MDRD (S/P/Bld) [Vol rate/Area] 48.0000 mL/min/{1.73_m2} >[address] [facility] Absolute lymphocyte countOrd ered By: Tone Horton on 06-24-2023 Lymphocytes Auto (Unsp spec) [#/Vol] 1.11 10*3/uL 0.83-4.[address] [facility] Automated lymphocyte count a s percentage of total leukocytesOrdered By: Tone Horton on 06-24-2023 Lymphocytes/100 WBC Auto (Unsp spec) 14.4 % 19-[address] [facility] Basophil percentageOrdered B y: Tone Horton on 06-24-2023 Basophils/100 WBC (Bld) 1.0 % 0-1 [facility] Eosinophils/100 WBC (Bld) 4.4 % 0-[address] [facility] Hemoglobin (Bld) [Mass/Vol] 11.7 g/dL 13.0-16.[address] [facility] Monocytes/100 WBC (Bld) 8.4 % 0-10 [facility] Neutrophils (Bld) [#/Vol] 5.5 10*3/uL 2.0-7.[address] [facility] Neutrophils/100 WBC (Bld) 71.7 % 47-[address] [facility] WBC (Bld) [#/Vol] 7.7 10*3/uL 4.4-11.0 [facility] Determination of erythrocyte mean corpuscular volume (MCV)Ordered By: Tone Horton on 06-24-2023 MCV (RBC) [Entitic vol] 88.4 fL 80-94 [facility] Erythrocyte distribution wid th ratioOrdered By: Tone Horton on 06-24-2023 Erythrocyte distribution width (RBC) [Ratio] 13.9 % 11.6-14.[address] [facility] Erythrocyte distribution wid th standard deviationOrdered By: Tone Horton on 06-24-2023 Erythrocyte distribution width (RBC) [Entitic vol] 45.1 fL 35.1-43.[address] [facility] Hematocrit Auto (Bld) [Volum e fraction]Ordered By: Tone Horton on 06-24-2023 Hematocrit (Bld) [Volume fraction] 35.7 % 40-[address] [facility] Immature granulocytes/100 WB C Auto (Bld)Ordered By: Tone Horton on 06-24-2023 Immature granulocytes/100 WBC (Bld) 0.100 % 0.0-0.[address] [facility] Comment on above: IG% - Immature Granu locytes (promyelocytes, myelocytes and metamyelocytes) > 1% indicates that a LEFT SHIFT is Present. Iron measurement (mass/mass) Ordered By: Tone Horton on 06-24-2023 Iron (Unsp spec) [Mass/Mass] 70 ug/dL 65-[address] [facility] Laboratory - Chemistry and C hemistry - challengeOrdered By: Tone Horton on 06-24-2023 Cobalamin (Vitamin B12) [Mass/Vol] 1019 pg/mL 211-[address] [facility] Laboratory - Hematology and Cell countsOrdered By: Tone Horton on 06-24-2023 MCH (RBC) [Entitic mass] 29.0 pg 27.0-32.[address] [facility] MCHC (RBC) [Mass/Vol] 32.8 g/dL 32-36 [facility] Nucleated RBC/100 WBC (Bld) [Ratio] 0 % 0-[address] [facility] Platelet mean volume (Bld) [Entitic vol] 10.6 fL 6.2-12.[address] [facility] Platelets (Bld) [#/Vol] 243 10*3/uL 150-[address] [facility] RBC Auto (Bld) [#/Vol]Ordere d By: Tone Horton on 06-24-2023 RBC (Bld) [#/Vol] 4.04 10*6/uL 4.6-6.2 [facility] Absolute lymphocyte countOrd ered By: Tone Horton on 06-18-2023 Lymphocytes Auto (Unsp spec) [#/Vol] 1.34 10*3/uL 0.83-4.[address] [facility] Automated lymphocyte count a s percentage of total leukocytesOrdered By: Tone Horton on 06-18-2023 Lymphocytes/100 WBC Auto (Unsp spec) 22.5 % 19-[address] [facility] Basophil percentageOrdered B y: Tone Horton on 06-18-2023 Basophils/100 WBC (Bld) 1.3 % 0-1 [facility] Bilirubin [Mass/Vol] 0.40 mg/dL 0.20-1.00 [facility] Comment on above: For patients on eltr ombopag therapy, use of Dimension [place] TBIL is not recommended. Chloride [Moles/Vol] 110 mmol/L 98-107 [facility] Cholesterol [Mass/Vol] 169 mg/dL <200 [facility] Comment on above: <200 mg/dL Desirable 200-240 mg/dL Borderline >240 mg/dL High Risk Eosinophils/100 WBC (Bld) 7.9 % 0-[address] [facility] Glucose [Mass/Vol] 109 mg/dL 74-106 [facility] Comment on above: Fasting Glucose resu lt from 100 to 125 mg/dL suggests IMPAIRED HOMEOSTASIS per A.D.A. criteria. Hemoglobin (Bld) [Mass/Vol] 11.7 g/dL 13.0-16.[address] [facility] Monocytes/100 WBC (Bld) 10.2 % 0-10 [facility] Neutrophils (Bld) [#/Vol] 3.4 10*3/uL 2.0-7.[address] [facility] Neutrophils/100 WBC (Bld) 57.8 % 47-[address] [facility] Potassium [Moles/Vol] 4.0 mmol/L 3.5-5.1 [facility] Protein [Mass/Vol] 7.7 g/dL 6.4-8.2 [facility] Sodium [Moles/Vol] 142 mmol/L 136-145 [facility] Triglyceride [Mass/Vol] 213 mg/dL <199 [facility] Comment on above: The drugs N-Acetylcy steine and Metamizole may falsely depress this assay.Serum Triglycerides Reference Interval Normal <150 mg/dL Borderline high 150 - 199 mg/dL High 200 - 499 mg/dL Very High > or = 500 mg/dL WBC (Bld) [#/Vol] 6.0 10*3/uL 4.4-11.0 [facility] Determination of erythrocyte mean corpuscular volume (MCV)Ordered By: Tone Horton on 06-18-2023 MCV (RBC) [Entitic vol] 88.2 fL 80-94 [facility] Erythrocyte distribution wid th ratioOrdered By: Tone Horton on 06-18-2023 Erythrocyte distribution width (RBC) [Ratio] 13.6 % 11.6-14.[address] [facility] Erythrocyte distribution wid th standard deviationOrdered By: Tone Horton on 06-18-2023 Erythrocyte distribution width (RBC) [Entitic vol] 43.9 fL 35.1-43.[address] [facility] Hematocrit Auto (Bld) [Volum e fraction]Ordered By: Tone Horton on 06-18-2023 Hematocrit (Bld) [Volume fraction] 35.9 % 40-[address] [facility] Immature granulocytes/100 WB C Auto (Bld)Ordered By: Tone Horton on 06-18-2023 Immature granulocytes/100 WBC (Bld) 0.300 % 0.0-0.[address] [facility] Comment on above: IG% - Immature Granu locytes (promyelocytes, myelocytes and metamyelocytes) > 1% indicates that a LEFT SHIFT is Present. Laboratory - Chemistry and C hemistry - challengeOrdered By: Tone Horton on 06-18-2023 Albumin/Globulin [Mass ratio] 1.1 {ratio} 0.9-2.[address] [facility] ALP [Catalytic activity/Vol] 50 U/L 45-[address] [facility] ALT [Catalytic activity/Vol] 20 U/L 16-[address] [facility] Cholesterol in HDL [Mass/Vol] 29 mg/dL >40 [facility] Comment on above: The drugs N-Acetylcy steine and Metamizole may falsely depress this assay. Reference Range HDL <40 mg/dL Low HDL Cholesterol HDL >or= 60 mg/dL High HDL Cholesterol Cholesterol in LDL [Mass/Vol] 97 mg/dL 0-[address] [facility] CK [Catalytic activity/Vol] 90 U/L 39-[address] [facility] CO2 [Moles/Vol] 26.0 mmol/L 21.0-32.[address] [facility] Globulin (S) [Mass/Vol] 3.6 g/dL 2.2-4.2 [facility] Urea nitrogen/Creatinine [Mass ratio] 26.3 mg/mg 10-[address] [facility] Laboratory - Hematology and Cell countsOrdered By: Tone Horton on 06-18-2023 MCH (RBC) [Entitic mass] 28.7 pg 27.0-32.[address] [facility] MCHC (RBC) [Mass/Vol] 32.6 g/dL 32-36 [facility] Nucleated RBC/100 WBC (Bld) [Ratio] 0 % 0-[address] [facility] Platelet mean volume (Bld) [Entitic vol] 10.6 fL 6.2-12.[address] [facility] Platelets (Bld) [#/Vol] 249 10*3/uL 150-[address] [facility] No Panel InformationOrdered By: Tone Horton on 06-18-2023 Estimated GFR (MDRD) Amer 58 mL/min >[address] [facility] Comment on above: GFR Calc Estimated GFR (MDRD) Non-Af Amer 48 mL/min >[address] [facility] Comment on above: Non- GFR Calc Urine Microalbumin/Creatinine Ratio 109.2 mg/g CRE <[address] [facility] Vitamin D 25-Hydroxy 42.6 ng/mL [facility] Comment on above: Vitamin D 25(OH) Sta tus Range Deficiency <20 ng/mL (50nmol/L) Insufficiency 20 - 30 ng/mL (50 - 75 nmol/L) Sufficiency 30 - 100 ng/mL (75 - 250 nmol/L) Toxicity >100 ng/mL (>250 nmol/L) VLDL Cholesterol 43 mg/dL 5-[address] [facility] RBC Auto (Bld) [#/Vol]Ordere d By: Tone Horton on 06-18-2023 RBC (Bld) [#/Vol] 4.07 10*6/uL 4.6-6.2 [facility] Serum or plasma calcium jennifer urement (mass/volume)Ordered By: Tone Horton on 06-18-2023 Calcium [Mass/Vol] 9.2 mg/dL 8.5-10.1 [facility] Serum or plasma creatinine m easurement (mass/volume)Ordered By: Tone Horton on 06-18-2023 Creatinine [Mass/Vol] 1.52 mg/dL 0.70-1.30 [facility] Comment on above: The validity of the calculated GFR & GFRAA in patients over 70 years has not been determined. Clinical correlation is essential. Serum or plasma urea nitroge n measurement (mass/volume)Ordered By: Tone Horton on 06-18-2023 Urea nitrogen [Mass/Vol] 40 mg/dL 7-[address] [facility] Thin prep Papanicolaou smear with manual screeningOrdered By: Tone Horton on 06-18-2023 Thin prep Papanicolaou smear with manual screening 4.1 g/dL 3.2-5.[address] [facility] Thin prep Papanicolaou smear with manual screening 17 U/L 15-[address] [facility] Thin prep Papanicolaou smear with manual screening 6 5-[address] [facility] Thin prep Papanicolaou smear with manual screening 90.3 mg/L NO RANGE EST. [facility] Urine creatinine measurement (mass/volume)Ordered By: Tone Horton on 06-18-2023 Creatinine (U) [Mass/Vol] 82.70 mg/dL NO RANGE EST. [facility] Whole blood hemoglobin A1c/t otal hemoglobin ratio (mass fraction)Ordered By: Tone Horton on 06-18-2023 HbA1c (Bld) [Mass fraction] 5.9 % 3.8-5.[address] [facility] Comment on above: Normal < 5.7 % Predi abetic 5.7 - 6.4 % Diabetic >or= 6.5 % Please note range changes. Basophil percentageOrdered B y: Gil Mcclelland on 05-19-2023 Chloride [Moles/Vol] 109 mmol/L 98-107 [facility] Glucose [Mass/Vol] 118 mg/dL 74-106 [facility] Comment on above: Fasting Glucose resu lt from 100 to 125 mg/dL suggests IMPAIRED HOMEOSTASIS per A.D.A. criteria. Potassium [Moles/Vol] 4.1 mmol/L 3.5-5.1 [facility] Sodium [Moles/Vol] 143 mmol/L 136-145 [facility] Laboratory - Chemistry and C hemistry - challengeOrdered By: Gil Mcclelland on 05-19-2023 CO2 [Moles/Vol] 24.0 mmol/L 21.0-32.[address] [facility] Urea nitrogen/Creatinine [Mass ratio] 20.5 mg/mg 10-[address] [facility] No Panel InformationOrdered By: Gil Mcclelland on 05-19-2023 Estimated Creatinine Clearance Calc 42.92 ml/min [facility] Estimated GFR (MDRD) Amer 58 mL/min >[address] [facility] Comment on above: GFR Calc Estimated GFR (MDRD) Non-Af Amer 48 mL/min >[address] [facility] Comment on above: Non- GFR Calc Serum or plasma calcium jennifer urement (mass/volume)Ordered By: Gil Mcclelland on 05-19-2023 Calcium [Mass/Vol] 9.1 mg/dL 8.5-10.1 [facility] Serum or plasma creatinine m easurement (mass/volume)Ordered By: Gil Mcclelland on 05-19-2023 Creatinine [Mass/Vol] 1.51 mg/dL 0.70-1.30 [facility] Comment on above: The validity of the calculated GFR & GFRAA in patients over 70 years has not been determined. Clinical correlation is essential. Serum or plasma urea nitroge n measurement (mass/volume)Ordered By: Gil Mcclelland on 05-19-2023 Urea nitrogen [Mass/Vol] 31 mg/dL 7-[address] [facility] Thin prep Papanicolaou smear with manual screeningOrdered By: Gil Mcclelland on 05-19-2023 Thin prep Papanicolaou smear with manual screening 10 5-[address] [facility] Absolute lymphocyte countOrd ered By: Senthil Hsieh on 05-18-2023 Lymphocytes Auto (Unsp spec) [#/Vol] 1.46 10*3/uL 0.83-4.[address] [facility] Activated partial thrombopla stin time (aPTT) in platelet poor plasma by coagulation aOrdered By: Senthil Hsieh on 05-18-2023 aPTT Coag (PPP) [Time] 27.9 s 24.1-36.2 [facility] Automated lymphocyte count a s percentage of total leukocytesOrdered By: Senthil Hsieh on 05-18-2023 Lymphocytes/100 WBC Auto (Unsp spec) 23.9 % 19-[address] [facility] Basophil percentageOrdered B y: Sentihl Hsieh on 05-18-2023 Basophils/100 WBC (Bld) 1.6 % 0-1 [facility] Chloride [Moles/Vol] 109 mmol/L 98-107 [facility] Eosinophils/100 WBC (Bld) 5.7 % 0-[address] [facility] Glucose [Mass/Vol] 244 mg/dL 74-106 [facility] Comment on above: Glucose result great er than or equal to 200 mg/dLsuggests DIABETES MELLITUS per A.D.A. criteria. Hemoglobin (Bld) [Mass/Vol] 12.4 g/dL 13.0-16.[address] [facility] Monocytes/100 WBC (Bld) 8.8 % 0-10 [facility] Neutrophils (Bld) [#/Vol] 3.7 10*3/uL 2.0-7.[address] [facility] Neutrophils/100 WBC (Bld) 59.8 % 47-[address] [facility] Potassium [Moles/Vol] 3.9 mmol/L 3.5-5.1 [facility] Sodium [Moles/Vol] 140 mmol/L 136-145 [facility] WBC (Bld) [#/Vol] 6.1 10*3/uL 4.4-11.0 [facility] Determination of erythrocyte mean corpuscular volume (MCV)Ordered By: Senthil Hsieh on 05-18-2023 MCV (RBC) [Entitic vol] 88.8 fL 80-94 [facility] Erythrocyte distribution wid th ratioOrdered By: Senthil Hsieh on 05-18-2023 Erythrocyte distribution width (RBC) [Ratio] 13.5 % 11.6-14.[address] [facility] Erythrocyte distribution wid th standard deviationOrdered By: Senthil Hsieh on 05-18-2023 Erythrocyte distribution width (RBC) [Entitic vol] 43.6 fL 35.1-43.[address] [facility] Hematocrit Auto (Bld) [Volum e fraction]Ordered By: Senthil Hsieh on 05-18-2023 Hematocrit (Bld) [Volume fraction] 37.9 % 40-[address] [facility] Immature granulocytes/100 WB C Auto (Bld)Ordered By: Senthil Hsieh on 05-18-2023 Immature granulocytes/100 WBC (Bld) 0.200 % 0.0-0.[address] [facility] Comment on above: IG% - Immature Granu locytes (promyelocytes, myelocytes and metamyelocytes) > 1% indicates that a LEFT SHIFT is Present. Laboratory - Chemistry and C hemistry - challengeOrdered By: Senthil Hsieh on 05-18-2023 CO2 [Moles/Vol] 23.0 mmol/L 21.0-32.[address] [facility] Magnesium [Mass/Vol] 2.2 mg/dL 1.6-2.6 [facility] Urea nitrogen/Creatinine [Mass ratio] 15.3 mg/mg 10-[address] [facility] Laboratory - CoagulationOrde red By: Senthil Hsieh on 05-18-2023 INR Coag (Bld) [Relative time] 1.1 {INR} [facility] PT Coag (PPP) [Time] 13.8 s 11.7-14.9 [facility] Laboratory - Hematology and Cell countsOrdered By: Senthil Hsieh on 05-18-2023 MCH (RBC) [Entitic mass] 29.0 pg 27.0-32.[address] [facility] MCHC (RBC) [Mass/Vol] 32.7 g/dL 32-36 [facility] Nucleated RBC/100 WBC (Bld) [Ratio] 0 % 0-[address] [facility] Platelet mean volume (Bld) [Entitic vol] 10.6 fL 6.2-12.[address] [facility] Platelets (Bld) [#/Vol] 307 10*3/uL 150-[address] [facility] No Panel InformationOrdered By: Senthil Hsieh on 05-18-2023 Troponin I High Sensitivity 839 pg/mL 3.0-78.[address] [facility] Comment on above: Critical Result(s) C alled at: 13:03:16 05/18/2023 by: Lauryn Salas. Results read back by same. Please Note: New Test Units and Gender Specific Reference Ranges. For more information see Policy Stat Procedure [place] High Sensitivity Troponin (TNIH) and attachments. Estimated Creatinine Clearance Calc 34.11 ml/min [facility] Estimated GFR (MDRD) Amer 45 mL/min >[address] [facility] Comment on above: GFR Calc Estimated GFR (MDRD) Non-Af Amer 37 mL/min >[address] [facility] Comment on above: Non- GFR Calc RBC Auto (Bld) [#/Vol]Ordere d By: Senthil Hsieh on 05-18-2023 RBC (Bld) [#/Vol] 4.27 10*6/uL 4.6-6.2 [facility] Serum or plasma calcium jennifer urement (mass/volume)Ordered By: Senthil Hsieh on 05-18-2023 Calcium [Mass/Vol] 9.6 mg/dL 8.5-10.1 [facility] Serum or plasma cardiac trop onin I panel by high sensitivity methodOrdered By: Senthil Hsieh on 05-18-2023 Tropinin I.cardiac panel High sensitivity method 41 pg/mL 3.0-78.[address] [facility] Comment on above: Please Note: New [place] t Units and Gender Specific Reference Ranges. For more information see Policy Stat Procedure [place] High Sensitivity Troponin (TNIH) and attachments. Serum or plasma creatinine m easurement (mass/volume)Ordered By: Senthil Hsieh on 05-18-2023 Creatinine [Mass/Vol] 1.90 mg/dL 0.70-1.30 [facility] Comment on above: The validity of the calculated GFR & GFRAA in patients over 70 years has not been determined. Clinical correlation is essential. Serum or plasma thyroid stim ulating hormone (TSH) measurement (units/volume)Ordered By: Senthil Hsieh on 05-18-2023 TSH Qn 3.60 uIU/mL 0.358-3.[address] [facility] Serum or plasma urea nitroge n measurement (mass/volume)Ordered By: Senthil Hsieh on 05-18-2023 Urea nitrogen [Mass/Vol] 29 mg/dL 10-[address] [facility] Thin prep Papanicolaou smear with manual screeningOrdered By: Senthil Hsieh on 05-18-2023 Thin prep Papanicolaou smear with manual screening 8 5-[address] [facility] Basophil percentageOrdered B y: Tone Horton on 04-22-2023 Chloride [Moles/Vol] 110 mmol/L 98-107 [facility] Glucose [Mass/Vol] 90 mg/dL 74-106 [facility] Potassium [Moles/Vol] 4.3 mmol/L 3.5-5.1 [facility] Sodium [Moles/Vol] 140 mmol/L 136-145 [facility] Laboratory - Chemistry and C hemistry - challengeOrdered By: Tone Horton on 04-22-2023 CO2 [Moles/Vol] 26.0 mmol/L 21.0-32.[address] [facility] Urea nitrogen/Creatinine [Mass ratio] 24.6 mg/mg 10-[address] [facility] No Panel InformationOrdered By: Tone Horton on 04-22-2023 Estimated GFR (MDRD) Amer 69 mL/min >[address] [facility] Comment on above: GFR Calc Estimated GFR (MDRD) Non-Af Amer 57 mL/min >[address] [facility] Comment on above: Non- GFR Calc Serum or plasma calcium jennifer urement (mass/volume)Ordered By: Tone Horton on 04-22-2023 Calcium [Mass/Vol] 9.2 mg/dL 8.5-10.1 [facility] Serum or plasma creatinine m easurement (mass/volume)Ordered By: Tone Horton on 04-22-2023 Creatinine [Mass/Vol] 1.30 mg/dL 0.70-1.30 [facility] Comment on above: The validity of the calculated GFR & GFRAA in patients over 70 years has not been determined. Clinical correlation is essential. Serum or plasma urea nitroge n measurement (mass/volume)Ordered By: Tone Horton on 04-22-2023 Urea nitrogen [Mass/Vol] 32 mg/dL 10-[address] [facility] Thin prep Papanicolaou smear with manual screeningOrdered By: Otne Clifford on 04-22-2023 Thin prep Papanicolaou smear with manual screening 4 5-[address] [facility] Basophil percentageOrdered B y: Tari Peñaloza on 04-14-2023 Chloride [Moles/Vol] 113 mmol/L 98-107 [facility] Glucose [Mass/Vol] 109 mg/dL 74-106 [facility] Comment on above: Fasting Glucose resu lt from 100 to 125 mg/dL suggests IMPAIRED HOMEOSTASIS per A.D.A. criteria. Potassium [Moles/Vol] 4.2 mmol/L 3.5-5.1 [facility] Sodium [Moles/Vol] 145 mmol/L 136-145 [facility] Laboratory - Chemistry and C hemistry - challengeOrdered By: Tari Peñaloza on 04-14-2023 CO2 [Moles/Vol] 25.0 mmol/L 21.0-32.[address] [facility] Urea nitrogen/Creatinine [Mass ratio] 20.4 mg/mg [address] [facility] No Panel InformationOrdered By: Tari Peñaloza on 04-14-2023 Estimated GFR (MDRD) Amer 52 mL/min >[address] [facility] Comment on above: GFR Calc Estimated GFR (MDRD) Non-Af Amer 43 mL/min >60 [facility] [facility] Comment on above: Non- GFR Calc Serum or plasma calcium jennifer urement (mass/volume)Ordered By: Tari Peñaloza on 04-14-2023 Calcium [Mass/Vol] 9.7 mg/dL 8.5-10.1 [facility] Serum or plasma creatinine m easurement (mass/volume)Ordered By: Tari Peñaloza on 04-14-2023 Creatinine [Mass/Vol] 1.67 mg/dL 0.70-1.30 [facility] Comment on above: The validity of the calculated GFR & GFRAA in patients over 70 years has not been determined. Clinical correlation is essential. Serum or plasma urea nitroge n measurement (mass/volume)Ordered By: Tari Peñaloza on 04-14-2023 Urea nitrogen [Mass/Vol] 34 mg/dL 10-[address] [facility] Thin prep Papanicolaou smear with manual screeningOrdered By: Tari Peñaloza on 04-14-2023 Thin prep Papanicolaou smear with manual screening 7 5-[address] [facility] Glucose Glucometer (BldC) [M ass/Vol]Ordered By: Romie Tuttle on 04-13-2023 Glucose [Mass/Vol] 175 mg/dL 74-106 [facility] Comment on above: MANAGEMENT OF PATIEN T CARE PER NURSING PROTOCOL Absolute lymphocyte countOrd ered By: Romie Tuttle on 04-12-2023 Lymphocytes Auto (Unsp spec) [#/Vol] 1.58 10*3/uL 0.83-4.[address] [facility] Basophil percentageOrdered B y: Romie Tuttle on 04-12-2023 Basophil percentage 3.8 mg/dL 2.5-4.9 [facility] Basophils/100 WBC (Bld) 0.9 % 0-1 [facility] Chloride [Moles/Vol] 114 mmol/L 98-107 [facility] Eosinophils/100 WBC (Bld) 4.3 % 0-[address] [facility] Glucose [Mass/Vol] 132 mg/dL 74-106 [facility] Comment on above: Fasting Glucose resu lt greater than or equal to 126 mg/dL suggests DIABETES MELLITUS per A.D.A. criteria. Neutrophils (Bld) [#/Vol] 5.7 10*3/uL 2.0-7.[address] [facility] Neutrophils/100 WBC (Bld) 66.9 % 47-[address] [facility] Potassium [Moles/Vol] 3.9 mmol/L 3.5-5.1 [facility] Sodium [Moles/Vol] 143 mmol/L 136-145 [facility] WBC (Bld) [#/Vol] 8.6 10*3/uL 4.4-11.0 [facility] Blood erythrocytes count (nu mber/volume)Ordered By: Romie Tuttle on 04-12-2023 RBC (Bld) [#/Vol] 4.07 10*6/uL 4.6-6.2 [facility] Blood hemoglobin measurement (mass/volume)Ordered By: Romie Tuttle on 04-12-2023 Hemoglobin (Bld) [Mass/Vol] 11.8 g/dL 13.0-16.[address] [facility] Blood lymphocytes/100 leukoc ytesOrdered By: Romie Tuttle on 04-12-2023 Lymphocytes/100 WBC (Bld) 18.5 % 19-[address] [facility] Blood monocytes/100 leukocyt esOrdered By: Romie Tuttle on 04-12-2023 Monocytes/100 WBC (Bld) 9.0 % 0-10 [facility] Blood platelet mean volumeOr dered By: Roime Tuttle on 04-12-2023 Platelet mean volume (Bld) [Entitic vol] 10.5 fL 6.2-12.[address] [facility] Determination of erythrocyte mean corpuscular volume (MCV)Ordered By: Romie Tuttle on 04-12-2023 MCV (RBC) [Entitic vol] 88.5 fL 80-94 [facility] Glucose Glucometer (dC) [M ass/Vol]Ordered By: Romie Tuttle on 04-12-2023 Glucose [Mass/Vol] 130 mg/dL 74-106 [facility] Comment on above: MANAGEMENT OF PATIEN T CARE PER NURSING PROTOCOL Hematocrit Auto (Bld) [Volum e fraction]Ordered By: Romie Tuttle on 04-12-2023 Hematocrit (Bld) [Volume fraction] 36.0 % 40-[address] [facility] Laboratory - Chemistry and C hemistry - challengeOrdered By: Romie Tuttle on 04-12-2023 CO2 [Moles/Vol] 23.0 mmol/L 21.0-32.[address] [facility] Magnesium [Mass/Vol] 2.3 mg/dL 1.6-2.6 [facility] Urea nitrogen/Creatinine [Mass ratio] 19.5 mg/mg 10-[address] [facility] Laboratory - Hematology and Cell countsOrdered By: Romie Tuttle on 04-12-2023 Erythrocyte distribution width (RBC) [Entitic vol] 44.4 fL 35.1-43.[address] [facility] Erythrocyte distribution width (RBC) [Ratio] 13.7 % 11.6-14.[address] [facility] Immature granulocytes/100 WBC (Bld) 0.400 % 0.0-0.[address] [facility] Comment on above: IG% - Immature Granu locytes (promyelocytes, myelocytes and metamyelocytes) > 1% indicates that a LEFT SHIFT is Present. MCH (RBC) [Entitic mass] 29.0 pg 27.0-32.[address] [facility] Nucleated RBC/100 WBC (Bld) [Ratio] 0 % 0-[address] [facility] MCHC Auto (RBC) [Mass/Vol]Or dered By: Romie Tuttle on 04-12-2023 MCHC (RBC) [Mass/Vol] 32.8 g/dL 32-36 [facility] No Panel InformationOrdered By: Romie Tuttle on 04-12-2023 Estimated Creatinine Clearance Calc 48.73 ml/min [facility] Estimated GFR (MDRD) Amer 68 mL/min >[address] [facility] Comment on above: GFR Calc Estimated GFR (MDRD) Non-Af Amer 56 mL/min >[address] [facility] Comment on above: Non- GFR Calc Platelets bldOrdered By: Denis Tuttle on 04-12-2023 Platelets (Bld) [#/Vol] 243 10*3/uL 150-[address] [facility] Serum or plasma calcium jennifer urement (mass/volume)Ordered By: Romie Tuttle on 04-12-2023 Calcium [Mass/Vol] 8.5 mg/dL 8.5-10.1 [facility] Serum or plasma creatinine m easurement (mass/volume)Ordered By: Romie Tuttle on 04-12-2023 Creatinine [Mass/Vol] 1.33 mg/dL 0.70-1.30 [facility] Comment on above: The validity of the calculated GFR & GFRAA in patients over 70 years has not been determined. Clinical correlation is essential. Serum or plasma urea nitroge n measurement (mass/volume)Ordered By: Romie Tuttle on 04-12-2023 Urea nitrogen [Mass/Vol] 26 mg/dL 7-[address] [facility] Thin prep Papanicolaou smear with manual screeningOrdered By: Romie Tuttle on 04-12-2023 Thin prep Papanicolaou smear with manual screening 6 5-[address] [facility] Basophil percentageOrdered B y: Bo Albert on 04-11-2023 Bilirubin [Mass/Vol] 0.40 mg/dL 0.20-1.00 [facility] Comment on above: For patients on eltr ombopag therapy, use of Dimension [place] TBIL is not recommended. Cholesterol [Mass/Vol] 164 mg/dL <200 [facility] Comment on above: <200 mg/dL Desirable 200-240 mg/dL Borderline >240 mg/dL High Risk Protein [Mass/Vol] 6.7 g/dL 6.4-8.2 [facility] Triglyceride [Mass/Vol] 208 mg/dL <199 [facility] Comment on above: The drugs N-Acetylcy steine and Metamizole may falsely depress this assay.Serum Triglycerides Reference Interval Normal <150 mg/dL Borderline high 150 - 199 mg/dL High 200 - 499 mg/dL Very High > or = 500 mg/dL Laboratory - Chemistry and C hemistry - challengeOrdered By: Bo Albert on 04-11-2023 ALP [Catalytic activity/Vol] 51 U/L 45-[address] [facility] ALT [Catalytic activity/Vol] 71 U/L 16-[address] [facility] Globulin (S) [Mass/Vol] 3.2 g/dL 2.2-4.2 [facility] Serum or plasma albumin jennifer urement (mass/volume)Ordered By: Bo Albert on 04-11-2023 Albumin [Mass/Vol] 3.5 g/dL 3.2-5.0 [facility] Serum or plasma albumin/glob ulin mass ratioOrdered By: Bo Albert on 04-11-2023 Albumin/Globulin [Mass ratio] 1.1 {ratio} 0.9-2.[address] [facility] Serum or plasma cholesterol in HDL measurement (mass/volume)Ordered By: Bo Albert on 04-11-2023 Cholesterol in HDL [Mass/Vol] 28 mg/dL >[address] [facility] Comment on above: The drugs N-Acetylcy steine and Metamizole may falsely depress this assay. Reference Range HDL <40 mg/dL Low HDL Cholesterol HDL >or= 60 mg/dL High HDL Cholesterol Serum or plasma cholesterol in VLDL measurement (mass/volume)Ordered By: Bo Albert on 04-11-2023 Cholesterol in VLDL [Mass/Vol] 42 mg/dL 5-[address] [facility] Serum or plasma low density lipoprotein (LDL) cholesterol measurement (mass/volume)Ordered By: Bo Albert on 04-11-2023 Cholesterol in LDL [Mass/Vol] 94 mg/dL 0-[address] [facility] Thin prep Papanicolaou smear with manual screeningOrdered By: Bo Albert on 04-11-2023 Thin prep Papanicolaou smear with manual screening 404 U/L 15-[address] [facility] Absolute lymphocyte countOrd ered By: Nicanor Martinez on 04-10-2023 Lymphocytes Auto (Unsp spec) [#/Vol] 1.62 10*3/uL 0.83-4.[address] [facility] Basophil percentageOrdered B y: Nicanor Martinez on 04-10-2023 Basophils/100 WBC (Bld) 1.1 % 0-1 [facility] Bilirubin [Mass/Vol] 0.20 mg/dL 0.20-1.00 [facility] Comment on above: For patients on eltr ombopag therapy, use of Dimension [place] TBIL is not recommended. Chloride [Moles/Vol] 108 mmol/L 98-107 [facility] Eosinophils/100 WBC (Bld) 4.8 % 0-[address] [facility] Glucose [Mass/Vol] 201 mg/dL 74-106 [facility] Comment on above: Glucose result great er than or equal to 200 mg/dLsuggests DIABETES MELLITUS per A.D.A. criteria. Neutrophils (Bld) [#/Vol] 4.8 10*3/uL 2.0-7.[address] [facility] Neutrophils/100 WBC (Bld) 64.1 % 47-[address] [facility] Potassium [Moles/Vol] 3.9 mmol/L 3.5-5.1 [facility] Protein [Mass/Vol] 7.1 g/dL 6.4-8.2 [facility] Sodium [Moles/Vol] 139 mmol/L 136-145 [facility] WBC (Bld) [#/Vol] 7.5 10*3/uL 4.4-11.0 [facility] Blood erythrocytes count (nu mber/volume)Ordered By: Nicanor Martinez on 04-10-2023 RBC (Bld) [#/Vol] 4.10 10*6/uL 4.6-6.2 [facility] Blood hemoglobin measurement (mass/volume)Ordered By: Nicanor Martinez on 04-10-2023 Hemoglobin (Bld) [Mass/Vol] 12.2 g/dL 13.0-16.[address] [facility] Blood lymphocytes/100 leukoc ytesOrdered By: Nicanor Martinez on 04-10-2023 Lymphocytes/100 WBC (Bld) 21.7 % 19-[address] [facility] Blood monocytes/100 leukocyt esOrdered By: Nicanor Martinez on 04-10-2023 Monocytes/100 WBC (Bld) 8.0 % 0-10 [facility] Blood platelet mean volumeOr dered By: Nicanor Martinez on 04-10-2023 Platelet mean volume (Bld) [Entitic vol] 10.2 fL 6.2-12.[address] [facility] Determination of erythrocyte mean corpuscular volume (MCV)Ordered By: Nicanor Martinez on 04-10-2023 MCV (RBC) [Entitic vol] 88.3 fL 80-94 [facility] Direct bilirubinOrdered By: Nicanor Martinez on 04-10-2023 Bilirubin.direct [Mass/Vol] 0.10 mg/dL 0.00-0.[address] [facility] Hematocrit Auto (Bld) [Volum e fraction]Ordered By: Nicanor Martinez on 04-10-2023 Hematocrit (Bld) [Volume fraction] 36.2 % 40-[address] [facility] INR in Blood by Coagulation assayOrdered By: Nicanor Martinez on 04-10-2023 INR Coag (Bld) [Relative time] 1.0 {INR} [facility] Laboratory - Chemistry and C hemistry - challengeOrdered By: Nicanor Martinez on 04-10-2023 ALP [Catalytic activity/Vol] 52 U/L 45-[address] [facility] ALT [Catalytic activity/Vol] 22 U/L 16-[address] [facility] CO2 [Moles/Vol] 23.0 mmol/L 21.0-32.[address] [facility] Globulin (S) [Mass/Vol] 3.4 g/dL 2.2-4.2 [facility] Lipase [Catalytic activity/Vol] 338 U/L 13-[address] [facility] Comment on above: Please note:LIPASE r evised reference range effective 22. New Lipase methodology. Expected to produce lower values than the previous assay method. NEW Reference Range: 13 - 75 U/L Natriuretic peptide B (Bld) [Mass/Vol] 7.0 pg/mL 0-[address] [facility] Urea nitrogen/Creatinine [Mass ratio] 21.6 mg/mg 10-[address] [facility] Laboratory - CoagulationOrde red By: Nicanor Martinez on 04-10-2023 aPTT Coag (Bld) [Time] 26.4 s 24.1-36.2 [facility] PT Coag (PPP) [Time] 13.3 s 11.7-14.9 [facility] Laboratory - Hematology and Cell countsOrdered By: Nicanor Martinez on 04-10-2023 Erythrocyte distribution width (RBC) [Entitic vol] 43.6 fL 35.1-43.[address] [facility] Erythrocyte distribution width (RBC) [Ratio] 13.5 % 11.6-14.[address] [facility] Immature granulocytes/100 WBC (Bld) 0.300 % 0.0-0.[address] [facility] Comment on above: IG% - Immature Granu locytes (promyelocytes, myelocytes and metamyelocytes) > 1% indicates that a LEFT SHIFT is Present. MCH (RBC) [Entitic mass] 29.8 pg 27.0-32.[address] [facility] Nucleated RBC/100 WBC (Bld) [Ratio] 0 % 0-[address] [facility] MCHC Auto (RBC) [Mass/Vol]Or dered By: Nicanor Martinez on 04-10-2023 MCHC (RBC) [Mass/Vol] 33.7 g/dL 32-36 [facility] No Panel InformationOrdered By: Bo Albert on 04-10-2023 Activated Clotting Time 201 sec 74-137 [facility] No Panel InformationOrdered By: Nicanor Martinez on 04-10-2023 Troponin I High Sensitivity 268 pg/mL 3.0-78.[address] [facility] Comment on above: Critical Result(s) C alled at: 12:23:48 04/10/2023 by: Johan Rey. Eyal Koo RN (ER). Results read back by same. Please Note: New Test Units and Gender Specific Reference Ranges. For more information see Policy Stat Procedure [place] High Sensitivity Troponin (TNIH) and attachments. Estimated Creatinine Clearance Calc 42.36 ml/min [facility] Estimated GFR (MDRD) Amer 58 mL/min >[address] [facility] Comment on above: GFR Calc Estimated GFR (MDRD) Non-Af Amer 48 mL/min >[address] [facility] Comment on above: Non- GFR Calc Platelets bldOrdered By: Bud Martinez on 04-10-2023 Platelets (Bld) [#/Vol] 281 10*3/uL 150-[address] [facility] Serum or plasma albumin jennifer urement (mass/volume)Ordered By: Nicanor Martinez on 04-10-2023 Albumin [Mass/Vol] 3.7 g/dL 3.2-5.0 [facility] Serum or plasma calcium jennifer urement (mass/volume)Ordered By: Nicanor Martinez on 04-10-2023 Calcium [Mass/Vol] 9.2 mg/dL 8.5-10.1 [facility] Serum or plasma creatinine m easurement (mass/volume)Ordered By: Nicanor Martinez on 04-10-2023 Creatinine [Mass/Vol] 1.53 mg/dL 0.70-1.30 [facility] Comment on above: The validity of the calculated GFR & GFRAA in patients over 70 years has not been determined. Clinical correlation is essential. Serum or plasma urea nitroge n measurement (mass/volume)Ordered By: Nicanor Martinez on 04-10-2023 Urea nitrogen [Mass/Vol] 33 mg/dL 7-[address] [facility] Thin prep Papanicolaou smear with manual screeningOrdered By: Nicanor Martinez on 04-10-2023 Thin prep Papanicolaou smear with manual screening 10 U/L 15-[address] [facility] Thin prep Papanicolaou smear with manual screening 8 5-[address] [facility] Basophil percentageOrdered B y: Tone Horton on 04-06-2023 Chloride [Moles/Vol] 107 mmol/L 98-107 [facility] Glucose [Mass/Vol] 224 mg/dL 74-106 [facility] Comment on above: Glucose result great er than or equal to 200 mg/dLsuggests DIABETES MELLITUS per A.D.A. criteria. Potassium [Moles/Vol] 4.2 mmol/L 3.5-5.1 [facility] Sodium [Moles/Vol] 139 mmol/L 136-145 [facility] Laboratory - Chemistry and C hemistry - challengeOrdered By: Tone Horton on 04-06-2023 CO2 [Moles/Vol] 25.0 mmol/L 21.0-32.[address] [facility] Urea nitrogen/Creatinine [Mass ratio] 21.6 mg/mg 10-[address] [facility] No Panel InformationOrdered By: Tone Horton on 04-06-2023 Estimated GFR (MDRD) Amer 64 mL/min >[address] [facility] Comment on above: GFR Calc Estimated GFR (MDRD) Non-Af Amer 53 mL/min >[address] [facility] Comment on above: Non- GFR Calc Serum or plasma calcium jennifer urement (mass/volume)Ordered By: Tone Horton on 04-06-2023 Calcium [Mass/Vol] 8.6 mg/dL 8.5-10.1 [facility] Serum or plasma creatinine m easurement (mass/volume)Ordered By: Tone Horton on 04-06-2023 Creatinine [Mass/Vol] 1.39 mg/dL 0.70-1.30 [facility] Comment on above: The validity of the calculated GFR & GFRAA in patients over 70 years has not been determined. Clinical correlation is essential. Serum or plasma urea nitroge n measurement (mass/volume)Ordered By: Tone Horton on 04-06-2023 Urea nitrogen [Mass/Vol] 30 mg/dL 7-[address] [facility] Thin prep Papanicolaou smear with manual screeningOrdered By: Tone Horton on 04-06-2023 Thin prep Papanicolaou smear with manual screening 7 5-[address] [facility] Basophil percentageOrdered B y: Tone Horton on 03-15-2023 Bilirubin [Mass/Vol] 0.30 mg/dL 0.20-1.00 [facility] Comment on above: For patients on eltr ombopag therapy, use of Dimension [place] TBIL is not recommended. Chloride [Moles/Vol] 107 mmol/L 98-107 [facility] Cholesterol [Mass/Vol] 145 mg/dL <200 [facility] Comment on above: <200 mg/dL Desirable 200-240 mg/dL Borderline >240 mg/dL High Risk Glucose [Mass/Vol] 117 mg/dL 74-106 [facility] Comment on above: Fasting Glucose resu lt from 100 to 125 mg/dL suggests IMPAIRED HOMEOSTASIS per A.D.A. criteria. Potassium [Moles/Vol] 4.1 mmol/L 3.5-5.1 [facility] Protein [Mass/Vol] 7.1 g/dL 6.4-8.2 [facility] Sodium [Moles/Vol] 138 mmol/L 136-145 [facility] Triglyceride [Mass/Vol] 176 mg/dL <199 [facility] Comment on above: The drugs N-Acetylcy steine and Metamizole may falsely depress this assay.Serum Triglycerides Reference Interval Normal <150 mg/dL Borderline high 150 - 199 mg/dL High 200 - 499 mg/dL Very High > or = 500 mg/dL Laboratory - Chemistry and C hemistry - challengeOrdered By: Tone Horton on 03-15-2023 ALP [Catalytic activity/Vol] 52 U/L 45-[address] [facility] ALT [Catalytic activity/Vol] 26 U/L 16-[address] [facility] CK [Catalytic activity/Vol] 208 U/L 39-[address] [facility] CO2 [Moles/Vol] 26.0 mmol/L 21.0-32.[address] [facility] Globulin (S) [Mass/Vol] 3.4 g/dL 2.2-4.2 [facility] Urea nitrogen/Creatinine [Mass ratio] 23.3 mg/mg 10-[address] [facility] No Panel InformationOrdered By: Tone Horton on 03-15-2023 Estimated GFR (MDRD) Amer 70 mL/min >[address] [facility] Comment on above: GFR Calc Estimated GFR (MDRD) Non-Af Amer 58 mL/min >[address] [facility] Comment on above: Non- GFR Calc Thyroid Stimulating Hormone (TSH) 3.98 uIU/mL 0.358-3.[address] [facility] Urine Microalbumin/Creatinine Ratio 204.5 mg/g CRE <[address] [facility] Serum or plasma albumin jennifer urement (mass/volume)Ordered By: Tone Horton on 03-15-2023 Albumin [Mass/Vol] 3.7 g/dL 3.2-5.0 [facility] Serum or plasma albumin/glob ulin mass ratioOrdered By: Tone Horton on 03-15-2023 Albumin/Globulin [Mass ratio] 1.1 {ratio} 0.9-2.[address] [facility] Serum or plasma calcium jennifer urement (mass/volume)Ordered By: Tone Horton on 03-15-2023 Calcium [Mass/Vol] 8.8 mg/dL 8.5-10.1 [facility] Serum or plasma cholesterol in HDL measurement (mass/volume)Ordered By: Tone Horton on 03-15-2023 Cholesterol in HDL [Mass/Vol] 31 mg/dL >[address] [facility] Comment on above: The drugs N-Acetylcy steine and Metamizole may falsely depress this assay. Reference Range HDL <40 mg/dL Low HDL Cholesterol HDL >or= 60 mg/dL High HDL Cholesterol Serum or plasma cholesterol in VLDL measurement (mass/volume)Ordered By: Tone Horton on 03-15-2023 Cholesterol in VLDL [Mass/Vol] 35 mg/dL 5-[address] [facility] Serum or plasma creatinine m easurement (mass/volume)Ordered By: Tone Horton on 03-15-2023 Creatinine [Mass/Vol] 1.29 mg/dL 0.70-1.30 [facility] Comment on above: The validity of the calculated GFR & GFRAA in patients over 70 years has not been determined. Clinical correlation is essential. Serum or plasma low density lipoprotein (LDL) cholesterol measurement (mass/volume)Ordered By: Tone Horton on 03-15-2023 Cholesterol in LDL [Mass/Vol] 79 mg/dL 0-[address] [facility] Serum or plasma urea nitroge n measurement (mass/volume)Ordered By: Tone Horton on 03-15-2023 Urea nitrogen [Mass/Vol] 30 mg/dL 7-[address] [facility] Thin prep Papanicolaou smear with manual screeningOrdered By: Tone Horton on 03-15-2023 Thin prep Papanicolaou smear with manual screening 16 U/L 15-[address] [facility] Thin prep Papanicolaou smear with manual screening 5 5-[address] [facility] Thin prep Papanicolaou smear with manual screening 117.0 mg/L NO RANGE EST. [facility] Urine creatinine measurement (mass/volume)Ordered By: Tone Horton on 03-15-2023 Creatinine (U) [Mass/Vol] 57.20 mg/dL NO RANGE EST. [facility] Whole blood hemoglobin A1c/t otal hemoglobin ratio (mass fraction)Ordered By: Tone Horton on 03-15-2023 HbA1c (Bld) [Mass fraction] 5.9 % 3.8-5.[address] [facility] Comment on above: Normal < 5.7 % Predi abetic 5.7 - 6.4 % Diabetic >or= 6.5 % Please note range changes. Glucose Glucometer (BldC) [M ass/Vol]Ordered By: Yash Estrada on 02-16-2023 Glucose [Mass/Vol] 99 mg/dL 74-106 [facility] Comment on above: MANAGEMENT OF PATIEN T CARE PER NURSING PROTOCOL Basophil percentageOrdered B y: Tone Horton on 12-17-2022 Bilirubin [Mass/Vol] 0.30 mg/dL 0.20-1.00 [facility] Comment on above: For patients on eltr ombopag therapy, use of Dimension [place] TBIL is not recommended. Chloride [Moles/Vol] 110 mmol/L 98-107 [facility] Glucose [Mass/Vol] 109 mg/dL 74-106 [facility] Comment on above: Fasting Glucose resu lt from 100 to 125 mg/dL suggests IMPAIRED HOMEOSTASIS per A.D.A. criteria. Potassium [Moles/Vol] 4.1 mmol/L 3.5-5.1 [facility] Protein [Mass/Vol] 7.3 g/dL 6.4-8.2 [facility] Sodium [Moles/Vol] 140 mmol/L 136-145 [facility] Laboratory - Chemistry and C hemistry - challengeOrdered By: oTne Horton on 12-17-2022 ALP [Catalytic activity/Vol] 60 U/L 45-[address] [facility] ALT [Catalytic activity/Vol] 23 U/L 16-[address] [facility] CO2 [Moles/Vol] 25.0 mmol/L 21.0-32.[address] [facility] Globulin (S) [Mass/Vol] 3.6 g/dL 2.2-4.2 [facility] Urea nitrogen/Creatinine [Mass ratio] 22.5 mg/mg 10-[address] [facility] No Panel InformationOrdered By: Tone Horton on 12-17-2022 Estimated GFR (MDRD) Amer 70 mL/min >[address] [facility] Comment on above: GFR Calc Estimated GFR (MDRD) Non-Af Amer 58 mL/min >[address] [facility] Comment on above: Non- GFR Calc No Panel InformationOrdered By: Heladio Archibald on 12-17-2022 Prostate Specific Antigen Total < 0.01 ng/mL 0.0-4.[address] [facility] Comment on above: This test was perfor med using the TPSA assay method for [employer] chemistry system. Values obtained with differentassay methods cannot be used interchangably.When changing PSA assays in the course of monitoring apatient, additional sequential testing should be carriedout to confirm baseline values. Serum or plasma albumin jennifer urement (mass/volume)Ordered By: Tone Horton on 12-17-2022 Albumin [Mass/Vol] 3.7 g/dL 3.2-5.0 [facility] Serum or plasma albumin/glob ulin mass ratioOrdered By: Tone Horton on 12-17-2022 Albumin/Globulin [Mass ratio] 1.0 {ratio} 0.9-2.[address] [facility] Serum or plasma calcium jennifer urement (mass/volume)Ordered By: Tone Horton on 12-17-2022 Calcium [Mass/Vol] 9.0 mg/dL 8.5-10.1 [facility] Serum or plasma creatinine m easurement (mass/volume)Ordered By: Tone Horton on 12-17-2022 Creatinine [Mass/Vol] 1.29 mg/dL 0.70-1.30 [facility] Comment on above: The validity of the calculated GFR & GFRAA in patients over 70 years has not been determined. Clinical correlation is essential. Serum or plasma urea nitroge n measurement (mass/volume)Ordered By: Tone Horton on 12-17-2022 Urea nitrogen [Mass/Vol] 29 mg/dL 7-[address] [facility] Thin prep Papanicolaou smear with manual screeningOrdered By: Tone Horton on 12-17-2022 Thin prep Papanicolaou smear with manual screening 9 U/L 15-[address] [facility] Thin prep Papanicolaou smear with manual screening 5 5-[address] [facility] Whole blood hemoglobin A1c/t otal hemoglobin ratio (mass fraction)Ordered By: Tone Horton on 12-17-2022 HbA1c (Bld) [Mass fraction] 6.2 % 3.8-5.[address] [facility] Comment on above: Normal < 5.7 % Predi abetic 5.7 - 6.4 % Diabetic >or= 6.5 % Please note range changes. Glucose Glucometer (BldC) [M ass/Vol]Ordered By: Markell Mitchell on 12-08-2022 Glucose [Mass/Vol] 121 mg/dL 74-106 [facility] Comment on above: MANAGEMENT OF PATIEN T CARE PER NURSING PROTOCOL Absolute lymphocyte countOrd ered By: Markell Mitchell on 12-07-2022 Lymphocytes Auto (Unsp spec) [#/Vol] 1.05 10*3/uL 0.83-4.[address] [facility] Basophil percentageOrdered B y: Markell Mitchell on 12-07-2022 Basophils/100 WBC (Bld) 0.5 % 0-1 [facility] Bilirubin [Mass/Vol] 0.20 mg/dL 0.20-1.00 [facility] Comment on above: For patients on eltr ombopag therapy, use of Dimension [place] TBIL is not recommended. Chloride [Moles/Vol] 112 mmol/L 98-107 [facility] Eosinophils/100 WBC (Bld) 0.2 % 0-[address] [facility] Glucose [Mass/Vol] 126 mg/dL 74-106 [facility] Comment on above: Fasting Glucose resu lt greater than or equal to 126 mg/dL suggests DIABETES MELLITUS per A.D.A. criteria. Neutrophils (Bld) [#/Vol] 10.7 10*3/uL 2.0-7.[address] [facility] Neutrophils/100 WBC (Bld) 82.4 % 47-[address] [facility] Potassium [Moles/Vol] 3.9 mmol/L 3.5-5.1 [facility] Protein [Mass/Vol] 7.2 g/dL 6.4-8.2 [facility] Sodium [Moles/Vol] 144 mmol/L 136-145 [facility] WBC (Bld) [#/Vol] 12.9 10*3/uL 4.4-11.0 [facility] Blood erythrocytes count (nu mber/volume)Ordered By: Markell Mitchell on 12-07-2022 RBC (Bld) [#/Vol] 3.83 10*6/uL 4.6-6.2 [facility] Blood hemoglobin measurement (mass/volume)Ordered By: Markell Mitchell on 12-07-2022 Hemoglobin (Bld) [Mass/Vol] 11.4 g/dL 13.0-16.[address] [facility] Blood lymphocytes/100 leukoc ytesOrdered By: Markell Mitchell on 12-07-2022 Lymphocytes/100 WBC (Bld) 8.1 % 19-[address] [facility] Blood monocytes/100 leukocyt esOrdered By: Markell Mitchell on 12-07-2022 Monocytes/100 WBC (Bld) 8.3 % 0-10 [facility] Blood platelet mean volumeOr dered By: Markell Mitchell on 12-07-2022 Platelet mean volume (Bld) [Entitic vol] 9.7 fL 6.2-12.[address] [facility] Determination of erythrocyte mean corpuscular volume (MCV)Ordered By: Markell Mitchell on 12-07-2022 MCV (RBC) [Entitic vol] 88.0 fL 80-94 [facility] Hematocrit Auto (Bld) [Volum e fraction]Ordered By: Markell Mitchell on 12-07-2022 Hematocrit (Bld) [Volume fraction] 33.7 % 40-[address] [facility] Laboratory - Chemistry and C hemistry - challengeOrdered By: Markell Mitchell on 12-07-2022 ALP [Catalytic activity/Vol] 53 U/L 45-[address] [facility] ALT [Catalytic activity/Vol] 33 U/L 16-[address] [facility] CO2 [Moles/Vol] 25.0 mmol/L 21.0-32.[address] [facility] Globulin (S) [Mass/Vol] 3.6 g/dL 2.2-4.2 [facility] Urea nitrogen/Creatinine [Mass ratio] 18.8 mg/mg 10-[address] [facility] Laboratory - Hematology and Cell countsOrdered By: Markell Mitchell on 12-07-2022 Erythrocyte distribution width (RBC) [Entitic vol] 42.9 fL 35.1-43.[address] [facility] Erythrocyte distribution width (RBC) [Ratio] 13.2 % 11.6-14.[address] [facility] Immature granulocytes/100 WBC (Bld) 0.500 % 0.0-0.[address] [facility] Comment on above: IG% - Immature Granu locytes (promyelocytes, myelocytes and metamyelocytes) > 1% indicates that a LEFT SHIFT is Present. MCH (RBC) [Entitic mass] 29.8 pg 27.0-32.[address] [facility] Nucleated RBC/100 WBC (Bld) [Ratio] 0 % 0-[address] [facility] MCHC Auto (RBC) [Mass/Vol]Or dered By: Markell Mitchell on 12-07-2022 MCHC (RBC) [Mass/Vol] 33.8 g/dL 32-36 [facility] No Panel InformationOrdered By: Markell Mitchell on 12-07-2022 Estimated Creatinine Clearance Calc 49.47 ml/min [facility] Estimated GFR (MDRD) Amer 68 mL/min >[address] [facility] Comment on above: GFR Calc Estimated GFR (MDRD) Non-Af Amer 56 mL/min >[address] [facility] Comment on above: Non- GFR Calc Platelets bldOrdered By: Jalen Mitchell on 12-07-2022 Platelets (Bld) [#/Vol] 315 10*3/uL 150-[address] [facility] Serum or plasma albumin jennifer urement (mass/volume)Ordered By: Markell Mitchell on 12-07-2022 Albumin [Mass/Vol] 3.6 g/dL 3.2-5.0 [facility] Serum or plasma albumin/glob ulin mass ratioOrdered By: Markell Mitchell on 12-07-2022 Albumin/Globulin [Mass ratio] 1.0 {ratio} 0.9-2.[address] [facility] Serum or plasma calcium jennifer urement (mass/volume)Ordered By: Markell Mitchell on 12-07-2022 Calcium [Mass/Vol] 8.7 mg/dL 8.5-10.1 [facility] Serum or plasma creatinine m easurement (mass/volume)Ordered By: Markell Mitchell on 12-07-2022 Creatinine [Mass/Vol] 1.33 mg/dL 0.70-1.30 [facility] Comment on above: The validity of the calculated GFR & GFRAA in patients over 70 years has not been determined. Clinical correlation is essential. Serum or plasma urea nitroge n measurement (mass/volume)Ordered By: Markell Mitchell on 12-07-2022 Urea nitrogen [Mass/Vol] 25 mg/dL 7-[address] [facility] Thin prep Papanicolaou smear with manual screeningOrdered By: Markell Mitchell on 12-07-2022 Thin prep Papanicolaou smear with manual screening 21 U/L 15-[address] [facility] Thin prep Papanicolaou smear with manual screening 7 5-[address] [facility] Whole blood hemoglobin A1c/t otal hemoglobin ratio (mass fraction)Ordered By: Won Webster on 12-07-2022 HbA1c (Bld) [Mass fraction] 6.3 % 3.8-5.[address] [facility] Comment on above: Normal < 5.7 % Predi abetic 5.7 - 6.4 % Diabetic >or= 6.5 % Please note range changes. Absolute lymphocyte countOrd ered By: Terri Sue on 12-06-2022 Lymphocytes Auto (Unsp spec) [#/Vol] 1.98 10*3/uL 0.83-4.[address] [facility] Basophil percentageOrdered B y: Terri Sue on 12-06-2022 Basophil percentage 0-5 SEEN /hpf 0-5 [facility] Basophils/100 WBC (Bld) 1.0 % 0-1 [facility] Bilirubin [Mass/Vol] 0.30 mg/dL 0.20-1.00 [facility] Comment on above: For patients on eltr ombopag therapy, use of Dimension [place] TBIL is not recommended. Chloride [Moles/Vol] 107 mmol/L 98-107 [facility] Eosinophils/100 WBC (Bld) 4.1 % 0-[address] [facility] Glucose [Mass/Vol] 124 mg/dL 74-106 [facility] Comment on above: Fasting Glucose resu lt from 100 to 125 mg/dL suggests IMPAIRED HOMEOSTASIS per A.D.A. criteria. Neutrophils (Bld) [#/Vol] 6.2 10*3/uL 2.0-7.[address] [facility] Neutrophils/100 WBC (Bld) 65.8 % 47-[address] [facility] Potassium [Moles/Vol] 4.1 mmol/L 3.5-5.1 [facility] Protein [Mass/Vol] 8.2 g/dL 6.4-8.2 [facility] Sodium [Moles/Vol] 141 mmol/L 136-145 [facility] WBC (Bld) [#/Vol] 9.4 10*3/uL 4.4-11.0 [facility] Bilirubin Test strip Ql (U)O rdered By: Terri Sue on 12-06-2022 Bilirubin Ql (U) Negative Negative [facility] Blood erythrocytes count (nu mber/volume)Ordered By: Terri Sue on 12-06-2022 RBC (Bld) [#/Vol] 4.29 10*6/uL 4.6-6.2 [facility] Blood hemoglobin measurement (mass/volume)Ordered By: Terri Sue on 12-06-2022 Hemoglobin (Bld) [Mass/Vol] 12.4 g/dL 13.0-16.[address] [facility] Blood lymphocytes/100 leukoc ytesOrdered By: Terri Sue on 12-06-2022 Lymphocytes/100 WBC (Bld) 21.0 % 19-[address] [facility] Blood monocytes/100 leukocyt esOrdered By: Terri Sue on 12-06-2022 Monocytes/100 WBC (Bld) 7.0 % 0-10 [facility] Blood platelet mean volumeOr dered By: Terri Sue on 12-06-2022 Platelet mean volume (Bld) [Entitic vol] 10.0 fL 6.2-12.[address] [facility] Determination of erythrocyte mean corpuscular volume (MCV)Ordered By: Terri Sue on 12-06-2022 MCV (RBC) [Entitic vol] 88.8 fL 80-94 [facility] Hematocrit Auto (Bld) [Volum e fraction]Ordered By: Terri Sue on 12-06-2022 Hematocrit (Bld) [Volume fraction] 38.1 % 40-[address] [facility] Ketones Test strip Ql (U)Ord ered By: Terri Sue on 12-06-2022 Ketones Ql (U) Negative Negative [facility] Laboratory - Chemistry and C hemistry - challengeOrdered By: Terri Sue on 12-06-2022 ALP [Catalytic activity/Vol] 59 U/L 45-[address] [facility] ALT [Catalytic activity/Vol] 33 U/L 16-[address] [facility] CO2 [Moles/Vol] 27.0 mmol/L 21.0-32.[address] [facility] Globulin (S) [Mass/Vol] 4.0 g/dL 2.2-4.2 [facility] Lipase [Catalytic activity/Vol] 152 U/L 13-[address] [facility] Comment on above: Please note:LIPASE r evised reference range effective 22. New Lipase methodology. Expected to produce lower values than the previous assay method. NEW Reference Range: 13 - 75 U/L Urea nitrogen/Creatinine [Mass ratio] 23.1 mg/mg 10-[address] [facility] Laboratory - Hematology and Cell countsOrdered By: Terri Sue on 12-06-2022 Erythrocyte distribution width (RBC) [Entitic vol] 43.3 fL 35.1-43.[address] [facility] Erythrocyte distribution width (RBC) [Ratio] 13.3 % 11.6-14.[address] [facility] Immature granulocytes/100 WBC (Bld) 1.100 % 0.0-0.[address] [facility] Comment on above: IG% - Immature Granu locytes (promyelocytes, myelocytes and metamyelocytes) > 1% indicates that a LEFT SHIFT is Present. MCH (RBC) [Entitic mass] 28.9 pg 27.0-32.[address] [facility] Nucleated RBC/100 WBC (Bld) [Ratio] 0 % 0-[address] [facility] MCHC Auto (RBC) [Mass/Vol]Or dered By: Terri Sue on 12-06-2022 MCHC (RBC) [Mass/Vol] 32.5 g/dL 32-36 [facility] Mucus LM Ql (Urine sed)Order ed By: Terri Sue on 12-06-2022 Mucus Ql (Urine sed) 0 SEEN /hpf [facility] Nitrite Test strip Ql (U)Ord ered By: Terri Sue on 12-06-2022 Nitrite Ql (U) Negative Negative [facility] No Panel InformationOrdered By: Terri Sue on 12-06-2022 Estimated Creatinine Clearance Calc 49.10 ml/min [facility] Estimated GFR (MDRD) Amer 67 mL/min >[address] [facility] Comment on above: GFR Calc Estimated GFR (MDRD) Non-Af Amer 55 mL/min >[address] [facility] Comment on above: Non- GFR Calc Platelets bldOrdered By: Jami Sue on 12-06-2022 Platelets (Bld) [#/Vol] 353 10*3/uL 150-[address] [facility] Protein Test strip Ql (U)Ord ered By: Terri Sue on 12-06-2022 Protein Ql (U) 100 mg/dl Negative [facility] Serum or plasma albumin jennifer urement (mass/volume)Ordered By: Terri Sue on 12-06-2022 Albumin [Mass/Vol] 4.2 g/dL 3.2-5.0 [facility] Serum or plasma albumin/glob ulin mass ratioOrdered By: Terri Sue on 12-06-2022 Albumin/Globulin [Mass ratio] 1.0 {ratio} 0.9-2.[address] [facility] Serum or plasma calcium jennifer urement (mass/volume)Ordered By: Terri Sue on 12-06-2022 Calcium [Mass/Vol] 9.9 mg/dL 8.5-10.1 [facility] Serum or plasma creatinine m easurement (mass/volume)Ordered By: Terri Sue on 12-06-2022 Creatinine [Mass/Vol] 1.34 mg/dL 0.70-1.30 [facility] Comment on above: The validity of the calculated GFR & GFRAA in patients over 70 years has not been determined. Clinical correlation is essential. Serum or plasma urea nitroge n measurement (mass/volume)Ordered By: Terri Sue on 12-06-2022 Urea nitrogen [Mass/Vol] 31 mg/dL 7-[address] [facility] Squamous epithelial cells de tection in urine sediment by light microscopyOrdered By: Terri Sue on 12-06-2022 Epithelial cells.squamous LM Ql (Urine sed) 0-5 SEEN /hpf 0-[address] [facility] Thin prep Papanicolaou smear with manual screeningOrdered By: Terri Sue on 12-06-2022 Thin prep Papanicolaou smear with manual screening 16 U/L 15-[address] [facility] Thin prep Papanicolaou smear with manual screening 7 5-[address] [facility] Urine blood detectionOrdered By: Terri Sue on 12-06-2022 RBC Ql (U) 10 /ul Negative [facility] RBC Ql (U) 0-5 SEEN /hpf 0-[address] [facility] Urine clarityOrdered By: Jami Sue on 12-06-2022 Clarity (U) Clear Clear [facility] Urine color determinationOrd ered By: Terri Sue on 12-06-2022 Color (U) Yellow Yellow [facility] Urine glucose detectionOrder ed By: Terri Sue on 12-06-2022 Glucose Ql (U) Normal mg/dl Normal [facility] Urine leukocyte esterase det ection by dipstickOrdered By: Terri Sue on 12-06-2022 Leukocyte esterase Test strip Ql (U) 25 /ul Negative [facility] Urine pHOrdered By: Terri arceo on 12-06-2022 pH (U) 8.0 [pH] 5.0 - 8.[address] [facility] Urine sediment bacteria coun t by microscopy (number/high power field)Ordered By: Terri Sue on 12-06-2022 Bacteria LM.HPF (Urine sed) [#/Area] 0 /[HPF] None Seen [facility] Urine specific gravity measu rementOrdered By: Terri Sue on 12-06-2022 Specific gravity (U) [Rel density] 1.015 1.002-1.[address] [facility] Urobilinogen Auto test strip Ql (U)Ordered By: Terri Sue on 12-06-2022 Urobilinogen Ql (U) Normal mg/dl Normal [facility] Absolute lymphocyte countOrd ered By: ED PROVIDER on 11-30-2022 Lymphocytes Auto (Unsp spec) [#/Vol] 1.53 10*3/uL 0.83-4.[address] [facility] Basophil percentageOrdered B y: ED PROVIDER on 11-30-2022 Basophils/100 WBC (Bld) 0.9 % 0-1 [facility] Eosinophils/100 WBC (Bld) 6.2 % 0-[address] [facility] Neutrophils (Bld) [#/Vol] 5.2 10*3/uL 2.0-7.[address] [facility] Neutrophils/100 WBC (Bld) 63.7 % 47-[address] [facility] WBC (Bld) [#/Vol] 8.1 10*3/uL 4.4-11.0 [facility] Basophil percentageOrdered B y: Leonides Arauz on 11-30-2022 Chloride [Moles/Vol] 107 mmol/L 98-107 [facility] Glucose [Mass/Vol] 125 mg/dL 74-106 [facility] Comment on above: Fasting Glucose resu lt from 100 to 125 mg/dL suggests IMPAIRED HOMEOSTASIS per A.D.A. criteria. Potassium [Moles/Vol] 4.3 mmol/L 3.5-5.1 [facility] Sodium [Moles/Vol] 139 mmol/L 136-145 [facility] Blood erythrocytes count (nu mber/volume)Ordered By: ED PROVIDER on 11-30-2022 RBC (Bld) [#/Vol] 4.09 10*6/uL 4.6-6.2 [facility] Blood hemoglobin measurement (mass/volume)Ordered By: ED PROVIDER on 11-30-2022 Hemoglobin (Bld) [Mass/Vol] 12.1 g/dL 13.0-16.[address] [facility] Blood lymphocytes/100 leukoc ytesOrdered By: ED PROVIDER on 11-30-2022 Lymphocytes/100 WBC (Bld) 18.8 % 19-[address] [facility] Blood monocytes/100 leukocyt esOrdered By: ED PROVIDER on 11-30-2022 Monocytes/100 WBC (Bld) 10.0 % 0-10 [facility] Blood platelet mean volumeOr dered By: ED PROVIDER on 11-30-2022 Platelet mean volume (Bld) [Entitic vol] 10.3 fL 6.2-12.[address] [facility] Determination of erythrocyte mean corpuscular volume (MCV)Ordered By: ED PROVIDER on 11-30-2022 MCV (RBC) [Entitic vol] 89.5 fL 80-94 [facility] Hematocrit Auto (Bld) [Volum e fraction]Ordered By: ED PROVIDER on 11-30-2022 Hematocrit (Bld) [Volume fraction] 36.6 % 40-[address] [facility] Laboratory - Chemistry and C hemistry - challengeOrdered By: Leonides Arauz on 11-30-2022 CO2 [Moles/Vol] 26.0 mmol/L 21.0-32.[address] [facility] Urea nitrogen/Creatinine [Mass ratio] 14.2 mg/mg 10-[address] [facility] Laboratory - Hematology and Cell countsOrdered By: ED PROVIDER on 11-30-2022 Erythrocyte distribution width (RBC) [Entitic vol] 44.5 fL 35.1-43.[address] [facility] Erythrocyte distribution width (RBC) [Ratio] 13.4 % 11.6-14.[address] [facility] Immature granulocytes/100 WBC (Bld) 0.400 % 0.0-0.[address] [facility] Comment on above: IG% - Immature Granu locytes (promyelocytes, myelocytes and metamyelocytes) > 1% indicates that a LEFT SHIFT is Present. MCH (RBC) [Entitic mass] 29.6 pg 27.0-32.[address] [facility] Nucleated RBC/100 WBC (Bld) [Ratio] 0 % 0-[address] [facility] MCHC Auto (RBC) [Mass/Vol]Or dered By: ED PROVIDER on 11-30-2022 MCHC (RBC) [Mass/Vol] 33.1 g/dL 32-36 [facility] No Panel InformationOrdered By: Leonides Arauz on 11-30-2022 Troponin I High Sensitivity 8 pg/mL 3.0-78.[address] [facility] Comment on above: Please Note: New [place] t Units and Gender Specific Reference Ranges. For more information see Policy Stat Procedure [place] High Sensitivity Troponin (TNIH) and attachments. Estimated Creatinine Clearance Calc 37.38 ml/min [facility] Estimated GFR (MDRD) Amer 49 mL/min >[address] [facility] Comment on above: GFR Calc Estimated GFR (MDRD) Non-Af Amer 41 mL/min >[address] [facility] Comment on above: Non- GFR Calc Platelets bldOrdered By: ED PROVIDER on 11-30-2022 Platelets (Bld) [#/Vol] 268 10*3/uL 150-[address] [facility] Serum or plasma calcium jennifer urement (mass/volume)Ordered By: Leonides Arauz on 11-30-2022 Calcium [Mass/Vol] 9.3 mg/dL 8.5-10.1 [facility] Serum or plasma creatinine m easurement (mass/volume)Ordered By: Leonides Arauz on 11-30-2022 Creatinine [Mass/Vol] 1.76 mg/dL 0.70-1.30 [facility] Comment on above: The validity of the calculated GFR & GFRAA in patients over 70 years has not been determined. Clinical correlation is essential. Serum or plasma urea nitroge n measurement (mass/volume)Ordered By: Leonides Arauz on 11-30-2022 Urea nitrogen [Mass/Vol] 25 mg/dL 7-[address] [facility] Thin prep Papanicolaou smear with manual screeningOrdered By: Leonides Arauz on 11-30-2022 Thin prep Papanicolaou smear with manual screening 6 5-[address] [facility] Basophil percentageOrdered B y: Dr. Horton on 09-15-2022 Bilirubin [Mass/Vol] 0.30 mg/dL 0.20-1.00 [facility] Comment on above: For patients on eltr ombopag therapy, use of Dimension [place] TBIL is not recommended. Chloride [Moles/Vol] 110 mmol/L 98-107 [facility] Cholesterol [Mass/Vol] 192 mg/dL <200 [facility] Comment on above: <200 mg/dL Desirable 200-240 mg/dL Borderline >240 mg/dL High Risk Glucose [Mass/Vol] 112 mg/dL 74-106 [facility] Comment on above: Fasting Glucose resu lt from 100 to 125 mg/dL suggests IMPAIRED HOMEOSTASIS per A.D.A. criteria. Potassium [Moles/Vol] 4.0 mmol/L 3.5-5.1 [facility] Protein [Mass/Vol] 7.3 g/dL 6.4-8.2 [facility] Sodium [Moles/Vol] 141 mmol/L 136-145 [facility] Triglyceride [Mass/Vol] 253 mg/dL <199 [facility] Comment on above: The drugs N-Acetylcy steine and Metamizole may falsely depress this assay.Serum Triglycerides Reference Interval Normal <150 mg/dL Borderline high 150 - 199 mg/dL High 200 - 499 mg/dL Very High > or = 500 mg/dL Laboratory - Chemistry and C hemistry - challengeOrdered By: Dr. Horton on 09-15-2022 ALP [Catalytic activity/Vol] 49 U/L 45-[address] [facility] ALT [Catalytic activity/Vol] 24 U/L 16-[address] [facility] CK [Catalytic activity/Vol] 142 U/L 39-[address] [facility] CO2 [Moles/Vol] 25.0 mmol/L 21.0-32.[address] [facility] Globulin (S) [Mass/Vol] 3.4 g/dL 2.2-4.2 [facility] Urea nitrogen/Creatinine [Mass ratio] 27.2 mg/mg 10-[address] [facility] No Panel InformationOrdered By: Dr. Horton on 09-15-2022 Estimated GFR (MDRD) Amer 66 mL/min >[address] [facility] Comment on above: GFR Calc Estimated GFR (MDRD) Non-Af Amer 55 mL/min >[address] [facility] Comment on above: Non- GFR Calc Thyroid Stimulating Hormone (TSH) 3.42 uIU/mL 0.358-3.[address] [facility] Serum or plasma albumin jennifer urement (mass/volume)Ordered By: Dr. Horton on 09-15-2022 Albumin [Mass/Vol] 3.9 g/dL 3.2-5.0 [facility] Serum or plasma albumin/glob ulin mass ratioOrdered By: Dr. Horton on 09-15-2022 Albumin/Globulin [Mass ratio] 1.1 {ratio} 0.9-2.[address] [facility] Serum or plasma calcium jennifer urement (mass/volume)Ordered By: Dr. Horton on 09-15-2022 Calcium [Mass/Vol] 9.3 mg/dL 8.5-10.1 [facility] Serum or plasma cholesterol in HDL measurement (mass/volume)Ordered By: Dr. Horton on 09-15-2022 Cholesterol in HDL [Mass/Vol] 27 mg/dL >[address] [facility] Comment on above: The drugs N-Acetylcy steine and Metamizole may falsely depress this assay. Reference Range HDL <40 mg/dL Low HDL Cholesterol HDL >or= 60 mg/dL High HDL Cholesterol Serum or plasma cholesterol in VLDL measurement (mass/volume)Ordered By: Dr. Horton on 09-15-2022 Cholesterol in VLDL [Mass/Vol] 51 mg/dL 5-[address] [facility] Serum or plasma creatinine m easurement (mass/volume)Ordered By: Dr. Horton on 09-15-2022 Creatinine [Mass/Vol] 1.36 mg/dL 0.70-1.30 [facility] Comment on above: The validity of the calculated GFR & GFRAA in patients over 70 years has not been determined. Clinical correlation is essential. Serum or plasma low density lipoprotein (LDL) cholesterol measurement (mass/volume)Ordered By: Dr. Horton on 09-15-2022 Cholesterol in LDL [Mass/Vol] 114 mg/dL 0-[address] [facility] Serum or plasma urea nitroge n measurement (mass/volume)Ordered By: Dr. Horton on 09-15-2022 Urea nitrogen [Mass/Vol] 37 mg/dL 7-[address] [facility] Thin prep Papanicolaou smear with manual screeningOrdered By: Dr. Horton on 09-15-2022 Thin prep Papanicolaou smear with manual screening 15 U/L 15-[address] [facility] Thin prep Papanicolaou smear with manual screening 6 5-[address] [facility] Thin prep Papanicolaou smear with manual screening 103.0 mg/L NO RANGE EST. [facility] Whole blood hemoglobin A1c/t otal hemoglobin ratio (mass fraction)Ordered By: Dr. Horton on 09-15-2022 HbA1c (Bld) [Mass fraction] 6.4 % 3.8-5.[address] [facility] Comment on above: Normal < 5.7 % Predi abetic 5.7 - 6.4 % Diabetic >or= 6.5 % Please note range changes. Basophil percentageOrdered B y: Dr. Horton on 06-16-2022 Bilirubin [Mass/Vol] 0.30 mg/dL 0.20-1.00 [facility] Comment on above: For patients on eltr ombopag therapy, use of Dimension [place] TBIL is not recommended. Chloride [Moles/Vol] 107 mmol/L 98-107 [facility] Cholesterol [Mass/Vol] 201 mg/dL <200 [facility] Comment on above: <200 mg/dL Desirable 200-240 mg/dL Borderline >240 mg/dL High Risk Glucose [Mass/Vol] 114 mg/dL 74-106 [facility] Comment on above: Fasting Glucose resu lt from 100 to 125 mg/dL suggests IMPAIRED HOMEOSTASIS per A.D.A. criteria. Potassium [Moles/Vol] 3.8 mmol/L 3.5-5.1 [facility] Protein [Mass/Vol] 7.6 g/dL 6.4-8.2 [facility] Sodium [Moles/Vol] 141 mmol/L 136-145 [facility] Triglyceride [Mass/Vol] 287 mg/dL <199 [facility] Comment on above: The drugs N-Acetylcy steine and Metamizole may falsely depress this assay.Serum Triglycerides Reference Interval Normal <150 mg/dL Borderline high 150 - 199 mg/dL High 200 - 499 mg/dL Very High > or = 500 mg/dL Laboratory - Chemistry and C hemistry - challengeOrdered By: Dr. Horton on 06-16-2022 ALP [Catalytic activity/Vol] 55 U/L 45-[address] [facility] ALT [Catalytic activity/Vol] 27 U/L 16-[address] [facility] CO2 [Moles/Vol] 26.0 mmol/L 21.0-32.[address] [facility] Globulin (S) [Mass/Vol] 3.6 g/dL 2.2-4.2 [facility] Urea nitrogen/Creatinine [Mass ratio] 23.7 mg/mg 10-[address] [facility] No Panel InformationOrdered By: Dr. Horton on 06-16-2022 Estimated GFR (MDRD) Amer 67 mL/min >[address] [facility] Comment on above: GFR Calc Estimated GFR (MDRD) Non-Af Amer 55 mL/min >[address] [facility] Comment on above: Non- GFR Calc Thyroid Stimulating Hormone (TSH) 4.73 uIU/mL 0.358-3.[address] [facility] Urine Microalbumin/Creatinine Ratio 167.7 mg/g CRE <[address] [facility] Serum or plasma albumin jennifer urement (mass/volume)Ordered By: Dr. Horton on 06-16-2022 Albumin [Mass/Vol] 4.0 g/dL 3.2-5.0 [facility] Serum or plasma albumin/glob ulin mass ratioOrdered By: Dr. Horton on 06-16-2022 Albumin/Globulin [Mass ratio] 1.1 {ratio} 0.9-2.[address] [facility] Serum or plasma calcium jennifer urement (mass/volume)Ordered By: Dr. Horton on 06-16-2022 Calcium [Mass/Vol] 9.3 mg/dL 8.5-10.1 [facility] Serum or plasma cholesterol in HDL measurement (mass/volume)Ordered By: Dr. Horton on 06-16-2022 Cholesterol in HDL [Mass/Vol] 30 mg/dL >[address] [facility] Comment on above: The drugs N-Acetylcy steine and Metamizole may falsely depress this assay. Reference Range HDL <40 mg/dL Low HDL Cholesterol HDL >or= 60 mg/dL High HDL Cholesterol Serum or plasma cholesterol in VLDL measurement (mass/volume)Ordered By: Dr. Horton on 06-16-2022 Cholesterol in VLDL [Mass/Vol] 57 mg/dL 5-[address] [facility] Serum or plasma creatinine m easurement (mass/volume)Ordered By: Dr. Horton on 06-16-2022 Creatinine [Mass/Vol] 1.35 mg/dL 0.70-1.30 [facility] Comment on above: The validity of the calculated GFR & GFRAA in patients over 70 years has not been determined. Clinical correlation is essential. Serum or plasma low density lipoprotein (LDL) cholesterol measurement (mass/volume)Ordered By: Dr. Horton on 06-16-2022 Cholesterol in LDL [Mass/Vol] 114 mg/dL 0-[address] [facility] Serum or plasma urea nitroge n measurement (mass/volume)Ordered By: Dr. Horton on 06-16-2022 Urea nitrogen [Mass/Vol] 32 mg/dL 7-[address] [facility] Thin prep Papanicolaou smear with manual screeningOrdered By: Dr. Horton on 06-16-2022 Thin prep Papanicolaou smear with manual screening 14 U/L 15-[address] [facility] Thin prep Papanicolaou smear with manual screening 8 5-[address] [facility] Thin prep Papanicolaou smear with manual screening 136.0 mg/L NO RANGE EST. [facility] Urine creatinine measurement (mass/volume)Ordered By: Dr. Horton on 06-16-2022 Creatinine (U) [Mass/Vol] 81.10 mg/dL NO RANGE EST. [facility] Whole blood hemoglobin A1c/t otal hemoglobin ratio (mass fraction)Ordered By: Dr. Horton on 06-16-2022 HbA1c (Bld) [Mass fraction] 6.2 % 3.8-5.[address] [facility] Comment on above: Normal < 5.7 % Predi abetic 5.7 - 6.4 % Diabetic >or= 6.5 % Please note range changes. Basophil percentageOrdered B y: Dr. Horton on 03-17-2022 Bilirubin [Mass/Vol] 0.40 mg/dL 0.20-1.00 [facility] Comment on above: For patients on eltr ombopag therapy, use of Dimension [place] TBIL is not recommended. Chloride [Moles/Vol] 108 mmol/L 98-107 [facility] Cholesterol [Mass/Vol] 202 mg/dL <200 [facility] Comment on above: <200 mg/dL Desirable 200-240 mg/dL Borderline >240 mg/dL High Risk Glucose [Mass/Vol] 136 mg/dL 74-106 [facility] Comment on above: Fasting Glucose resu lt greater than or equal to 126 mg/dL suggests DIABETES MELLITUS per A.D.A. criteria. Potassium [Moles/Vol] 4.2 mmol/L 3.5-5.1 [facility] Protein [Mass/Vol] 7.8 g/dL 6.4-8.2 [facility] Sodium [Moles/Vol] 141 mmol/L 136-145 [facility] Triglyceride [Mass/Vol] 290 mg/dL <199 [facility] Comment on above: The drugs N-Acetylcy steine and Metamizole may falsely depress this assay.Serum Triglycerides Reference Interval Normal <150 mg/dL Borderline high 150 - 199 mg/dL High 200 - 499 mg/dL Very High > or = 500 mg/dL Laboratory - Chemistry and C hemistry - challengeOrdered By: Dr. Horton on 03-17-2022 ALP [Catalytic activity/Vol] 55 U/L 45-[address] [facility] ALT [Catalytic activity/Vol] 27 U/L 16-[address] [facility] CO2 [Moles/Vol] 27.0 mmol/L 21.0-32.[address] [facility] Globulin (S) [Mass/Vol] 3.7 g/dL 2.2-4.2 [facility] Urea nitrogen/Creatinine [Mass ratio] 17.3 mg/mg 10-[address] [facility] No Panel InformationOrdered By: Dr. Horton on 03-17-2022 Estimated GFR (MDRD) Amer 72 mL/min >[address] [facility] Comment on above: GFR Calc Estimated GFR (MDRD) Non-Af Amer 59 mL/min >[address] [facility] Comment on above: Non- GFR Calc Serum or plasma albumin jennifer urement (mass/volume)Ordered By: Dr. Horton on 03-17-2022 Albumin [Mass/Vol] 4.1 g/dL 3.2-5.0 [facility] Serum or plasma albumin/glob ulin mass ratioOrdered By: Dr. Horton on 03-17-2022 Albumin/Globulin [Mass ratio] 1.1 {ratio} 0.9-2.[address] [facility] Serum or plasma calcium jennifer urement (mass/volume)Ordered By: Dr. Horton on 12-13-2022 Calcium [Mass/Vol] 9.2 mg/dL 8.5-10.1 [facility] Serum or plasma cholesterol in HDL measurement (mass/volume)Ordered By: Dr. Horton on 03-17-2022 Cholesterol in HDL [Mass/Vol] 28 mg/dL >[address] [facility] Comment on above: The drugs N-Acetylcy steine and Metamizole may falsely depress this assay. Reference Range HDL <40 mg/dL Low HDL Cholesterol HDL >or= 60 mg/dL High HDL Cholesterol Serum or plasma cholesterol in VLDL measurement (mass/volume)Ordered By: Dr. Horton on 03-17-2022 Cholesterol in VLDL [Mass/Vol] 58 mg/dL 5-[address] [facility] Serum or plasma creatinine m easurement (mass/volume)Ordered By: Dr. Horton on 03-17-2022 Creatinine [Mass/Vol] 1.27 mg/dL 0.70-1.30 [facility] Comment on above: The validity of the calculated GFR & GFRAA in patients over 70 years has not been determined. Clinical correlation is essential. Serum or plasma low density lipoprotein (LDL) cholesterol measurement (mass/volume)Ordered By: Dr. Horton on 03-17-2022 Cholesterol in LDL [Mass/Vol] 116 mg/dL 0-[address] [facility] Serum or plasma urea nitroge n measurement (mass/volume)Ordered By: Dr. Horton on 03-17-2022 Urea nitrogen [Mass/Vol] 22 mg/dL 7-[address] [facility] Thin prep Papanicolaou smear with manual screeningOrdered By: Dr. Horton on 03-17-2022 Thin prep Papanicolaou smear with manual screening 15 U/L 15-[address] [facility] Thin prep Papanicolaou smear with manual screening 6 5-[address] [facility] Whole blood hemoglobin A1c/t otal hemoglobin ratio (mass fraction)Ordered By: Dr. Horton on 03-17-2022 HbA1c (Bld) [Mass fraction] 6.5 % 3.8-5.[address] [facility] Comment on above: Normal < 5.7 % Predi abetic 5.7 - 6.4 % Diabetic >or= 6.5 % Please note range changes. Basophil percentageon 2021 Bilirubin [Mass/Vol] 0.30 mg/dL 0.20-1.00 [facility] Work Phone: Comment on above: For patients on eltr ombopag therapy, use of Dimension [place] TBIL is not recommended. Chloride [Moles/Vol] 106 mmol/L 98-107 [facility] Work Phone: Cholesterol [Mass/Vol] 186 mg/dL <200 [facility] Work Phone: Comment on above: <200 mg/dL Desirable 200-240 mg/dL Borderline >240 mg/dL High Risk Glucose [Mass/Vol] 132 mg/dL 74-106 [facility] Work Phone: Comment on above: Fasting Glucose resu lt greater than or equal to 126 mg/dL suggests DIABETES MELLITUS per A.D.A. criteria. Potassium [Moles/Vol] 4.2 mmol/L 3.5-5.1 [facility] Work Phone: Protein [Mass/Vol] 7.7 g/dL 6.4-8.2 [facility] Work Phone: Sodium [Moles/Vol] 138 mmol/L 136-145 [facility] Work Phone: Triglyceride [Mass/Vol] 280 mg/dL <199 [facility] Work Phone: Comment on above: The drugs N-Acetylcy steine and Metamizole may falsely depress this assay.Serum Triglycerides Reference Interval Normal <150 mg/dL Borderline high 150 - 199 mg/dL High 200 - 499 mg/dL Very High > or = 500 mg/dL Laboratory - Chemistry and C hemistry - challengeon 12-16-2021 ALP [Catalytic activity/Vol] 54 U/L 45-[address] [facility] Work Phone: ALT [Catalytic activity/Vol] 27 U/L 16-[address] [facility] Work Phone: CO2 [Moles/Vol] 24.0 mmol/L 21.0-32.[address] [facility] Work Phone: Globulin (S) [Mass/Vol] 3.8 g/dL 2.2-4.2 [facility] Work Phone: Urea nitrogen/Creatinine [Mass ratio] 23.4 mg/mg 10-[address] [facility] Work Phone: No Panel Informationon 12-16 Prostate Specific Antigen Total < 0.01 ng/mL 0.0-4.[address] [facility] Work Phone: Comment on above: This test was perfor med using the TPSA assay method for [employer] chemistry system. Values obtained with differentassay methods cannot be used interchangably.When changing PSA assays in the course of monitoring apatient, additional sequential testing should be carriedout to confirm baseline values. Estimated GFR (MDRD) Amer 61 mL/min >[address] [facility] Work Phone: Comment on above: GFR Calc Estimated GFR (MDRD) Non-Af Amer 51 mL/min >[address] [facility] Work Phone: Comment on above: Non- GFR Calc Urine Microalbumin/Creatinine Ratio 139.5 mg/g CRE <[address] [facility] Work Phone: Serum or plasma albumin jennifer urement (mass/volume)on 12-16-2021 Albumin [Mass/Vol] 3.9 g/dL 3.2-5.0 [facility] Work Phone: Serum or plasma albumin/glob ulin mass ratioon 12-16-2021 Albumin/Globulin [Mass ratio] 1.0 {ratio} 0.9-2.[address] [facility] Work Phone: Serum or plasma calcium jennifer urement (mass/volume)on 12-16-2021 Calcium [Mass/Vol] 9.3 mg/dL 8.5-10.1 [facility] Work Phone: Serum or plasma cholesterol in HDL measurement (mass/volume)on 12-16-2021 Cholesterol in HDL [Mass/Vol] 29 mg/dL >[address] [facility] Work Phone: Comment on above: The drugs N-Acetylcy steine and Metamizole may falsely depress this assay. Reference Range HDL <40 mg/dL Low HDL Cholesterol HDL >or= 60 mg/dL High HDL Cholesterol Serum or plasma cholesterol in VLDL measurement (mass/volume)on 12-16-2021 Cholesterol in VLDL [Mass/Vol] 56 mg/dL 5-[address] [facility] Work Phone: Serum or plasma creatinine m easurement (mass/volume)on 12-16-2021 Creatinine [Mass/Vol] 1.45 mg/dL 0.70-1.30 [facility] Work Phone: Comment on above: The validity of the calculated GFR & GFRAA in patients over 70 years has not been determined. Clinical correlation is essential. Serum or plasma low density lipoprotein (LDL) cholesterol measurement (mass/volume)on 12-16-2021 Cholesterol in LDL [Mass/Vol] 101 mg/dL 0-[address] [facility] Work Phone: Serum or plasma urea nitroge n measurement (mass/volume)on 12-16-2021 Urea nitrogen [Mass/Vol] 34 mg/dL 7-[address] [facility] Work Phone: Thin prep Papanicolaou smear with manual screeningon 12-16-2021 Thin prep Papanicolaou smear with manual screening 15 U/L 15-[address] [facility] Work Phone: Thin prep Papanicolaou smear with manual screening 8 5-[address] [facility] Work Phone: Thin prep Papanicolaou smear with manual screening 101.0 mg/L NO RANGE EST. [facility] Work Phone: Urine creatinine measurement (mass/volume)on 12-16-2021 Creatinine (U) [Mass/Vol] 72.40 mg/dL NO RANGE EST. [facility] Work Phone: Whole blood hemoglobin A1c/t otal hemoglobin ratio (mass fraction)on 12-16-2021 HbA1c (Bld) [Mass fraction] 6.4 % 3.8-5.[address] [facility] Work Phone: Comment on above: Normal < 5.7 % Predi abetic 5.7 - 6.4 % Diabetic >or= 6.5 % Please note range changes. Basophil percentageon 2021 Chloride [Moles/Vol] 107 mmol/L 98-107 [facility] Work Phone: Glucose [Mass/Vol] 254 mg/dL 74-106 [facility] Work Phone: Comment on above: Glucose result great er than or equal to 200 mg/dLsuggests DIABETES MELLITUS per A.D.A. criteria. Potassium [Moles/Vol] 4.2 mmol/L 3.5-5.1 [facility] Work Phone: Sodium [Moles/Vol] 138 mmol/L 136-145 [facility] Work Phone: Laboratory - Chemistry and C hemistry - challengeon 11-14-2021 CO2 [Moles/Vol] 25.0 mmol/L 21.0-32.[address] [facility] Work Phone: Urea nitrogen/Creatinine [Mass ratio] 22.2 mg/mg 10-[address] [facility] Work Phone: No Panel Informationon 11-14 Estimated GFR (MDRD) Amer 58 mL/min >[address] [facility] Work Phone: Comment on above: GFR Calc Estimated GFR (MDRD) Non-Af Amer 48 mL/min >[address] [facility] Work Phone: Comment on above: Non- GFR Calc Serum or plasma calcium jennifer urement (mass/volume)on 11-14-2021 Calcium [Mass/Vol] 9.1 mg/dL 8.5-10.1 [facility] Work Phone: Serum or plasma creatinine m easurement (mass/volume)on 11-14-2021 Creatinine [Mass/Vol] 1.53 mg/dL 0.70-1.30 [facility] Work Phone: Comment on above: The validity of the calculated GFR & GFRAA in patients over 70 years has not been determined. Clinical correlation is essential. Serum or plasma urea nitroge n measurement (mass/volume)on 11-14-2021 Urea nitrogen [Mass/Vol] 34 mg/dL 7-[address] [facility] Work Phone: Thin prep Papanicolaou smear with manual screeningon 11-14-2021 Thin prep Papanicolaou smear with manual screening 6 5-[address] [facility] Work Phone: Basophil percentageon 2021 Chloride [Moles/Vol] 108 mmol/L 98-107 [facility] Work Phone: Glucose [Mass/Vol] 223 mg/dL 74-106 [facility] Work Phone: Comment on above: Glucose result great er than or equal to 200 mg/dLsuggests DIABETES MELLITUS per A.D.A. criteria. Potassium [Moles/Vol] 4.3 mmol/L 3.5-5.1 [facility] Work Phone: Sodium [Moles/Vol] 140 mmol/L 136-145 [facility] Work Phone: Laboratory - Chemistry and C hemistry - challengeon 10-30-2021 CO2 [Moles/Vol] 25.0 mmol/L 21.0-32.[address] [facility] Work Phone: Urea nitrogen/Creatinine [Mass ratio] 21.8 mg/mg 10-[address] [facility] Work Phone: No Panel Informationon 10-30 Estimated GFR (MDRD) Amer 63 mL/min >[address] [facility] Work Phone: Comment on above: GFR Calc Estimated GFR (MDRD) Non-Af Amer 52 mL/min >[address] [facility] Work Phone: Comment on above: Non- GFR Calc Serum or plasma calcium jennifer urement (mass/volume)on 10-30-2021 Calcium [Mass/Vol] 9.0 mg/dL 8.5-10.1 [facility] Work Phone: Serum or plasma creatinine m easurement (mass/volume)on 10-30-2021 Creatinine [Mass/Vol] 1.42 mg/dL 0.70-1.30 [facility] Work Phone: Comment on above: The validity of the calculated GFR & GFRAA in patients over 70 years has not been determined. Clinical correlation is essential. Serum or plasma urea nitroge n measurement (mass/volume)on 10-30-2021 Urea nitrogen [Mass/Vol] 31 mg/dL 7-[address] [facility] Work Phone: Thin prep Papanicolaou smear with manual screeningon 10-30-2021 Thin prep Papanicolaou smear with manual screening 7 5-[address] [facility] Work Phone: Basophil percentageon 2021 Chloride [Moles/Vol] 106 mmol/L 98-107 [facility] Work Phone: Glucose [Mass/Vol] 134 mg/dL 74-106 [facility] Work Phone: Comment on above: Fasting Glucose resu lt greater than or equal to 126 mg/dL suggests DIABETES MELLITUS per A.D.A. criteria. Potassium [Moles/Vol] 3.8 mmol/L 3.5-5.1 [facility] Work Phone: Sodium [Moles/Vol] 141 mmol/L 136-145 [facility] Work Phone: Laboratory - Chemistry and C hemistry - challengeon 10-20-2021 CK [Catalytic activity/Vol] 91 U/L 39-[address] [facility] Work Phone: CO2 [Moles/Vol] 26.0 mmol/L 21.0-32.[address] [facility] Work Phone: Urea nitrogen/Creatinine [Mass ratio] 23.5 mg/mg 10-[address] [facility] Work Phone: No Panel Informationon 10-20 Estimated GFR (MDRD) Amer 66 mL/min >[address] [facility] Work Phone: Comment on above: GFR Calc Estimated GFR (MDRD) Non-Af Amer 55 mL/min >[address] [facility] Work Phone: Comment on above: Non- GFR Calc Serum or plasma calcium jennifer urement (mass/volume)on 10-20-2021 Calcium [Mass/Vol] 9.4 mg/dL 8.5-10.1 [facility] Work Phone: Serum or plasma creatinine m easurement (mass/volume)on 10-20-2021 Creatinine [Mass/Vol] 1.36 mg/dL 0.70-1.30 [facility] Work Phone: Comment on above: The validity of the calculated GFR & GFRAA in patients over 70 years has not been determined. Clinical correlation is essential. Serum or plasma urea nitroge n measurement (mass/volume)on 10-20-2021 Urea nitrogen [Mass/Vol] 32 mg/dL 10-[address] [facility] Work Phone: Thin prep Papanicolaou smear with manual screeningon 10-20-2021 Thin prep Papanicolaou smear with manual screening 9 -[address] [facility] Work Phone: Basophil percentageon 2021 Bilirubin [Mass/Vol] 0.20 mg/dL 0.20-1.00 [facility] Work Phone: Comment on above: For patients on eltr ombopag therapy, use of Dimension [place] TBIL is not recommended. Chloride [Moles/Vol] 110 mmol/L 98-107 [facility] Work Phone: Cholesterol [Mass/Vol] 184 mg/dL <200 [facility] Work Phone: Comment on above: <200 mg/dL Desirable 200-240 mg/dL Borderline >240 mg/dL High Risk Glucose [Mass/Vol] 138 mg/dL 74-106 [facility] Work Phone: Comment on above: Fasting Glucose resu lt greater than or equal to 126 mg/dL suggests DIABETES MELLITUS per A.D.A. criteria. Potassium [Moles/Vol] 4.2 mmol/L 3.5-5.1 [facility] Work Phone: Protein [Mass/Vol] 7.2 g/dL 6.4-8.2 [facility] Work Phone: Sodium [Moles/Vol] 141 mmol/L 136-145 [facility] Work Phone: Triglyceride [Mass/Vol] 479 mg/dL <199 [facility] Work Phone: Comment on above: The drugs N-Acetylcy steine and Metamizole may falsely depress this assay. TRIGLYCERIDE IS GREATER THAN 400 mg/dL. LDL RESULT IS INVALID AND WILL NOT BE REPORTED.Serum Triglycerides Reference Interval Normal <150 mg/dL Borderline high 150 - 199 mg/dL High 200 - 499 mg/dL Very High > or = 500 mg/dL Laboratory - Chemistry and C hemistry - challengeon 10-18-2021 ALP [Catalytic activity/Vol] 48 U/L 45-[address] [facility] Work Phone: ALT [Catalytic activity/Vol] 23 U/L 16-[address] [facility] Work Phone: CK [Catalytic activity/Vol] 76 U/L 39-[address] [facility] Work Phone: CO2 [Moles/Vol] 24.0 mmol/L 21.0-32.[address] [facility] Work Phone: Globulin (S) [Mass/Vol] 3.4 g/dL 2.2-4.2 [facility] Work Phone: Urea nitrogen/Creatinine [Mass ratio] 24.7 mg/mg 10-[address] [facility] Work Phone: No Panel Informationon 10-18 Estimated GFR (MDRD) Amer 59 mL/min >[address] [facility] Work Phone: Comment on above: GFR Calc Estimated GFR (MDRD) Non-Af Amer 49 mL/min >[address] [facility] Work Phone: Comment on above: Non- GFR Calc Thyroid Stimulating Hormone (TSH) 1.92 uIU/mL 0.358-3.[address] [facility] Work Phone: Urine Microalbumin/Creatinine Ratio 70.2 mg/g CRE <[address] [facility] Work Phone: Serum or plasma albumin jennifer urement (mass/volume)on 10-18-2021 Albumin [Mass/Vol] 3.8 g/dL 3.2-5.0 [facility] Work Phone: Serum or plasma albumin/glob ulin mass ratioon 10-18-2021 Albumin/Globulin [Mass ratio] 1.1 {ratio} 0.9-2.[address] [facility] Work Phone: Serum or plasma calcium jennifer urement (mass/volume)on 10-18-2021 Calcium [Mass/Vol] 9.3 mg/dL 8.5-10.1 [facility] Work Phone: Serum or plasma cholesterol in HDL measurement (mass/volume)on 10-18-2021 Cholesterol in HDL [Mass/Vol] 22 mg/dL >[address] [facility] Work Phone: Comment on above: The drugs N-Acetylcy steine and Metamizole may falsely depress this assay. Reference Range HDL <40 mg/dL Low HDL Cholesterol HDL >or= 60 mg/dL High HDL Cholesterol Serum or plasma cholesterol in VLDL measurement (mass/volume)on 10-18-2021 Cholesterol in VLDL [Mass/Vol] [facility] Work Phone: Comment on above: Test not performed Serum or plasma creatinine m easurement (mass/volume)on 10-18-2021 Creatinine [Mass/Vol] 1.50 mg/dL 0.70-1.30 [facility] Work Phone: Comment on above: The validity of the calculated GFR & GFRAA in patients over 70 years has not been determined. Clinical correlation is essential. Serum or plasma low density lipoprotein (LDL) cholesterol measurement (mass/volume)on 10-18-2021 Cholesterol in LDL [Mass/Vol] [facility] Work Phone: Comment on above: Test not performed Serum or plasma urea nitroge n measurement (mass/volume)on 10-18-2021 Urea nitrogen [Mass/Vol] 37 mg/dL 7-[address] [facility] Work Phone: Thin prep Papanicolaou smear with manual screeningon 10-18-2021 Thin prep Papanicolaou smear with manual screening 12 U/L 15-[address] [facility] Work Phone: Thin prep Papanicolaou smear with manual screening 7 5-[address] [facility] Work Phone: Thin prep Papanicolaou smear with manual screening 53.9 mg/L NO RANGE EST. [facility] Work Phone: Urine creatinine measurement (mass/volume)on 10-18-2021 Creatinine (U) [Mass/Vol] 76.80 mg/dL NO RANGE EST. [facility] Work Phone: CNPNon 08-27-2021 CNPN Telephone (FAMPWS) -------- JOSE MANUEL GREENFIELD ([id number]) 1950 Date Time Provider Department 08/27/21 ANDREW CALLE [facility] During your visit today, we recorded the following information about you: Hamiad Montoya RN 08/27/2021 2:49 PM Signed Faxed most recent ov notes and lab results to Dr. Tone Colon- endocrinology/Raquel, per patient request. Reports he will see this doctor on 09-17, for his chronic kidney dx and DM. Allergies As of Date: 08/27/2021 Noted Allergy Reaction CRESTOR (ROSUVASTATIN CALCIUM) 01/27/2011 14 - Other: See Comments Comments: Muscle cramps DUST 03/31/2005 5 - Intolerance HAYFEVER (HOMEOPATHIC PRODUCTS) 03/31/2005 5 - Intolerance LIPITOR (ATORVASTATIN CALCIUM) 01/27/2011 14 - Other: See Comments Comments: Muscle cramps NIASPAN (NIACIN (ANTIHYPERLIPIDEM*06/29/ 2007 8 - GI Upset PRAVASTATIN 01/27/2011 14 - Other: See Comments Comments: Muscle cramps [id number] REDUCTASE INHIBIT*01/02/2014 14 - Other: See Comments Comments: Muscle pain ZOCOR (SIMVASTATIN) 01/27/2011 14 - Other: See Comments Comments: Muscle cramps Date Reviewed: 03/26/2021 Reviewed by: Ana Maria Miller LPN - Fully Assessed Reason for Visit: Faxed to Endo [Other] Prescriptions as of 08/27/2021 - levothyroxine (LEVOXYL) 100 mcg tablet Take 1 tablet by mouth once daily. Take on empty stomach. For Thyroid. - bisoprolol-hydroCHLOROth iazide (ZIAC) 2.5-6.25 mg per tablet Take 1 [...] (PRESERVISION AREDS ORAL) Take by mouth. - blood sugar diagnostic (BLOOD GLUCOSE TEST) test strip Test blood sugar(s) 1-2 times daily. Dx: Type 2 DM - Uncontrolled E11.65 Insulin: No - Lancets lancets Test blood sugar(s) 1-2 times daily. Dx: Type 2 DM - Uncontrolled E11.65 Insulin: No - CPAP Initiate CPAP at same pressure of current machine. Mask (per patient preference) optional chin strap (if indicated) , filters, tubing, humidifier and lifetime supplies. - aspirin (BABY ASPIRIN) 81 mg ORAL chewable tablet Take 1 tablet by mouth once daily. - COMPOUNDED PRESCRIPTION omega red - taking one daily - CENTRUM SILVER TAB Take one(1) tablet daily. Problem List As Of Date 08/27/2021 Noted Resolved BENIGN HYPERTENSION [I10] HYPERLIPIDEMIA NEC/NOS [E78.5] 01/28/2015 Unspecified sleep apnea [G47.30] 03/31/2005 01/28/2015 Hypothyroidism [E03.9] 09/16/2010 DM w/o complication type II [E11.9] 09/16/2010 01/28/2015 Diabetic peripheral neuropathy associated with *01/02/2014 Obstructive sleep apnea syndrome [G47.33] 01/28/2015 Mixed hyperlipidemia [E78.2] 05/13/2015 Type 2 diabetes mellitus without complication, *03/25/2018 Encounter Status:Closed by Hamida MONTOYA RN on 08/27/[address] [facility] Free PSA [Mass/Vol]on 2021 Free PSA/Total PSA [Mass fraction] Normal [facility] Comment on above: Order Comment: Speci men Type: BLOOD SPECIMENOrdering Facility: [facility] Address: [address] [place] [address] Result Comment: Perc ent free not reported when Total and/or Free PSA value is below the lower limit of detection. Unable to calculate because free PSA is below assay range of 0.02 ng/mL. Total and free PSA test methodology used is the Electrochemiluminescence Immunoassay by [employer]. Total or free PSA values by differing methodologies cannot be interchanged. The below table lists the probability of finding prostate cancer upon needle biopsy, for men 50 years or older and total PSA concentrations from 4.0-10.0 ng/mL. Results should be interpreted within the broader clinical context. Free PSA(%) 50-59 years 60-69 years >69 years <11 49.2% 57.5% 64.5% 11-18 26.9% 33.9% 40.8% 19-25 18.3% 23.9% 29.7% >25 9.1% 12.2% 15.8% Performed By: #### 1 0886-0 ####[facility] LABCLIA [id number] [place] [address] [place] Prostate specific Ag [Mass/Vol] ng/mL Normal <2.[address] [facility] Comment on above: Order Comment: Speci men Type: BLOOD SPECIMENOrdering Facility: [facility] Address: [address] [place] [address], [place] [id number] Result Comment: Junior lisset PSA test methodology used is the Electrochemiluminescence Immunoassay by [employer]. Total PSA values by differing methodologies cannot be interchanged. Performed By: #### 1 0886-0 ####[facility] LAB[facility]IA [id number] [facility] [id number] [place] [address] [place] [facility] CNOVon 03-26-2021 CNOV Office Visit (WESLEYWS ) -------- JOSE MANUEL GREENFIELD ([id number]) 1950 M Date Time Provider Department 03/26/21 8:40 AM EBONI CARDOZO During your visit today, we recorded the following information about you: Pulse Respiration Blood pressure Weight 68/minute 16/minute 138/78 88.5 kg Eboni Cardozo APRN.CNP 03/26/2021 10:27 AM Signed 03/26/2021 Patient presents with: Recheck SUBJECTIVE: This is a 71 year old that is here today for Above Complaints. DIABETES MELLITUS: Since our last visit he denies excessive thirst or increased frequency of urination, chest pain or dyspnea , new or unusual visual symptoms, low sugar/hypoglycemic reactions, weight loss/gain, lightheadedness/dizzines s, bowel changes/loose stools. Does note some numbness [...] Lipitor [Atorvastatin Calcium], Niaspan [Niacin (Antihyperlipidemic)], Pravastatin, Jwatabf-Uyj-Sco Reductase Inhibitors, and Zocor [Simvastatin] MEDICATIONS Current Outpatient Medications Medication Sig - glipiZIDE (GLUCOTROL) 5 mg tablet Take 0.5 tablets by mouth once daily. - ezetimibe (ZETIA) 10 mg tablet Take 1 tablet by mouth once daily. - fenofibrate nanocrystallized (TRICOR) 145 mg tablet Take 1 tablet by mouth once daily. - bisoprolol-hydroCHLOROth iazide (ZIAC) 2.5-6.25 mg per tablet Take 1 [...] rhonchi, or rales EXTREMITIES Extremities normal, No defo (more content not included)... Normal [facility] Comp Metabolic Panelon 03-22 Albumin [Mass/Vol] 4.6 g/dL Normal 3.9-4.9 [facility] Comment on above: Performed By: #### C MP, HBA1C ####[facility] [address] [place], [place] [phone] ALP [Catalytic activity/Vol] 58 U/L Normal 38-[address] [facility] Comment on above: Performed By: #### C MP, HBA1C ####[facility] [address] AveClevelR[place], [place] [phone] ALT [Catalytic activity/Vol] 17 U/L Normal 10-[address] [facility] Comment on above: Performed By: #### C MP, HBA1C ####[facility] [address], [place] [phone] Anion gap [Moles/Vol] 12 mmol/L Normal 9-18 [facility] Comment on above: Performed By: #### C MP, HBA1C ####[facility], [place] [phone] AST [Catalytic activity/Vol] 17 U/L Normal 14-[address] [facility] Comment on above: Performed By: #### C MP, HBA1C ####[place] [address] [address], [place] [phone] Bilirubin [Mass/Vol] 0.2 mg/dL Normal 0.2-1.3 [facility] Comment on above: Performed By: #### C MP, HBA1C ####[place] [address] [address], [place] [phone] Calcium [Mass/Vol] 10.0 mg/dL Normal 8.5-10.2 [facility] Comment on above: Performed By: #### C MP, HBA1C ####[facility], [place] [phone] Chloride [Moles/Vol] 103 mmol/L Normal 97-105 [facility] Comment on above: Performed By: #### C MP, HBA1C ####[facility], [place] [phone] CO2 [Moles/Vol] 24 mmol/L Normal 22-[address] [facility] Comment on above: Performed By: #### C MP, HBA1C ####[facility], [place] [phone] Creatinine [Mass/Vol] 1.33 mg/dL High 0.73-1.22 [facility] Comment on above: Performed By: #### C MP, HBA1C ####[facility], [place] [phone] eGFR- Amer. >60 Normal [facility] Comment on above: Performed By: #### C MP, HBA1C ####[facility] [place], [place] [phone] eGFR-All Other Races 53 . Normal [facility] Comment on above: Result Comment: eGFR (Estimated GFR) Units of measure: mL/min/1.73 meters squared eGFR is derived from the reexpressed MDRD Study equation using the following parameters: serum creatinine, age, gender and race. The creatinine assay has been calibrated to be traceable to IDMS. An eGFR <60 mL/min/1.73m2 for >3 months is consistent with chronic kidney disease. Refer to KDOQI guidelines for clinical interpretation. In patients with unstable renal function, e.g. those with acute kidney injury, the eGFR may not accurately reflect actual GFR. Note: On 05/31/2021, the eGFR calculation will be updated to the NKF-ASN Task Force recommended 2020 CKD-EPI creatinine equation which does not include a race variable. For more information or to access a 2020 CKD-EPI calculator, visit the National Kidney Foundation website at kidney.org/professionals/kdoqi/gfr_calculator. Performed By: #### C MP, HBA1C ####[facility] [place], [place] [phone] Glucose [Mass/Vol] 147 mg/dL High 74-99 [facility] Comment on above: Result Comment: The [place] Diabetes Association (ADA) provides guidance for cutoff values for fasting glucose and random glucose. The ADA defines fasting as no caloric intake for at least 8 hours. Fasting plasma glucose results between 100 to 125 mg/dL indicate increased risk for diabetes (prediabetes). Fasting plasma glucose results greater than or equal to 126 mg/dL meet the criteria for diagnosis of diabetes. In the absence of unequivocal hyperglycemia, results should be confirmed by repeat testing. In a patient with classic symptoms of hyperglycemia or hyperglycemic crisis, random plasma glucose results greater than or equal to 200 mg/dL meet the criteria for diagnosis of diabetes. Reference: Standards of Medical Care in Diabetes 2016, [place] Diabetes Association. Diabetes Care. 2016.39(Suppl 1). Performed By: #### C MP, HBA1C ####[facility] [place], [place] [phone] Potassium [Moles/Vol] 4.3 mmol/L Normal 3.7-5.1 [facility] Comment on above: Performed By: #### C MP, HBA1C ####[address] [phone] Protein [Mass/Vol] 7.4 g/dL Normal 6.3-8.0 [facility] Comment on above: Performed By: #### C MP, HBA1C ####[address] [place], [place] [phone] Sodium [Moles/Vol] 139 mmol/L Normal 136-144 [facility] Comment on above: Performed By: #### C MP, HBA1C ####[address] [place], [place] [phone] Urea nitrogen [Mass/Vol] 28 mg/dL High 9-[address] [facility] Comment on above: Performed By: #### C MP, HBA1C ####[facility] [place], [place] [address] [place], [place] [phone] Hemoglobin A1con 03-22-2021 Glucose [Mass/Vol] 151 mg/dL Normal [facility] Comment on above: Result Comment: eAG: (Estimated average glucose) is a calculated value from HgbA1c and is public service representative of the average blood glucose level in the last 2-3 month period. Performed By: #### C MP, HBA1C ####[place] [address] [place], [place] [phone] HbA1c (Bld) [Mass fraction] 6.9 % High 4.3-5.[address] [facility] Comment on above: Result Comment: Amer [place] Diabetes Association guidelines indicate that patients with HgbA1c in the range 5.7-6.4% are at increased risk for development of diabetes, and intervention by lifestyle modification may be beneficial. HgbA1c greater or equal to 6.5% is considered diagnostic of diabetes. Performed By: #### C MP, HBA1C ####[facility] [address] [place], [place] [phone] [facility] JOSE MANUEL GREENFIELD ([id number]) 1950 M Date Time Provider Department 03/21/21 [facility] During your visit today, we recorded the following information about you: Janel Camacho 03/21/2021 12:01 PM Signed Patient is requesting if labs are needed prior to visit please advise the patient. Andrew Calle MD 03/21/2021 1:33 PM Signed Labs ordered as requested. Please come in at least 2 days before appointment for lab draw. Jonelle Boggs LPN 03/21/2021 2:05 PM Signed Patient notified and verbalized understanding. Jonelle Boggs LPN Allergies As of Date: 03/21/2021 Noted Allergy Reaction CRESTOR (ROSUVASTATIN CALCIUM) 01/27/2011 14 - Other: See Comments Comments: Muscle cramps DUST 03/31/2005 5 - Intolerance HAYFEVER (HOMEOPATHIC PRODUCTS) 03/31/2005 5 - Intolerance LIPITOR (ATORVASTATIN CALCIUM) 01/27/2011 14 - Other: See Comments Comments: Muscle cramps NIASPAN (NIACIN (ANTIHYPERLIPIDEM*2006 8 - GI Upset PRAVASTATIN 01/27/2011 14 - Other: See Comments Comments: Muscle cramps [id number] REDUCTASE INHIBIT*01/02/2014 14 - Other: See Comments Comments: Muscle pain ZOCOR (SIMVASTATIN) 01/27/2011 14 - Other: See Comments Comments: Muscle cramps Date Reviewed: 12/31/2020 Reviewed by: Yesica Norris LPN - Fully Assessed Reason for Visit: Orders [681] Primary Visit Diagnosis:Diabetes mellitus type II (HCC) [E11.9] Order(s):COMP METABOLIC PANEL [SQCMP] Order #: [id number] FUTURE HGB A1C [[id number]] Order #: [id number] FUTURE Prescriptions as of 03/21/2021 - glipiZIDE (GLUCOTROL) 5 mg tablet Take 0.5 tablets by mouth once daily. - ezetimibe (ZETIA) 10 mg tablet Take 1 tablet by mouth once daily. - levothyroxine (LEVOXYL) 100 mcg tablet Take 1 tablet by mouth once daily. Take on empty stomach. For Thyroid. - fenofibrate nanocrystallized (TRICOR) 145 mg tablet Take 1 tablet by mouth once daily. - bisoprolol-hydroCHLOROth iazide (ZIAC) 2.5-6.25 mg per tablet Take 1 tablet by mouth once daily. - potassium citrate ER (UROCIT-K) 10 mEq (1,080 mg) Take 1 tablet by mouth once daily - metFORMIN (GLUCOPHAGE) 1,000 mg tablet Take 1 tablet by mouth twice daily with meals. - meloxicam (MOBIC) 15 mg tablet Take 15 mg by mouth once daily. - vit A/vit C/vit E/zinc/copper (PRESERVISION AREDS ORAL) Take by mouth. - blood sugar diagnostic (BLOOD GLUCOSE TEST) test strip Test blood sugar(s) 1-2 times daily. Dx: Type 2 DM - Uncontrolled E11.65 Insulin: No - Lancets lancets Test blood sugar(s) 1-2 times daily. Dx: Type 2 DM - Uncontrolled E11.65 Insulin: No - CPAP Initiate CPAP at same pressure of current machine. Mask (per patient preference) optional chin strap (if indicated) , filters, tubing, humidifier and lifetime supplies. - vitamin A-ascorbic acid-vitamin E-minerals (OCUVITE) Tab Take 1 tablet by mouth once daily. - aspirin (BABY ASPIRIN) 81 mg ORAL chewable tablet Take 1 tablet by mouth once daily. - COMPOUNDED PRESCRIPTION omega red - taking one daily - CENTRUM SILVER TAB Take one(1) tablet daily. Problem List As Of Date 03/21/2021 Noted Resolved BENIGN HYPERTENSION [I10] HYPERLIPIDEMIA NEC/NOS [E78.5] 01/28/2015 Unspecified sleep apnea [G47.30] 03/31/2005 01/28/2015 Hypothyroidism [E03.9] 09/16/2010 DM w/o complication type II [E11.9] 09/16/2010 01/28/2015 Diabetic peripheral neuropathy associated with *01/02/2014 Obstructive sleep apnea syndrome [G47.33] 01/28/2015 Mixed hyperlipidemia [E78.2] 05/13/2015 Type 2 diabetes mellitus without complication, *03/25/2018 Encounter Status:Closed by JONELLE BOGGS LPN on 03/21/21 [facility] OBSOLETEon 03-17-2021 OBSOLETE Refill (FAMPWS) -------- JOSE MANUEL GREENFIELD ([id number]) 1950 M Date Time Provider Department 03/17/21 ANDREW CALLE FAMPWS During your visit today, we recorded the following information about you: Tasha Camacho 03/17/2021 8:28 AM Signed Patient has been identified by name and date of : Yes Pending Prescriptions Disp Refills GLIPIZIDE 5 MG TABLET 45 tablet 3 Sig: Take 0.5 tablets by mouth once daily. KENDALL: No EZETIMIBE 10 MG TABLET 90 tablet 1 Sig: Take 1 tablet by mouth once daily. KENDALL: No RX INSTRUCTIONS: Patient aware RX will be sent to pharmacy. No need to notify patient. Tasha Rey Ma 03/17/2021 5:12 PM Signed AISLINN: 09/24/2020 NOV: 03/26/2021 glipizide Last refill: 03/21/2020 QTY: 45 Refills: 3 zetia Last refill: 09/24/2020 QTY: 90 Refills: 1 Allergies As of Date: 03/17/2021 Noted Allergy Reaction CRESTOR (ROSUVASTATIN CALCIUM) 01/27/2011 14 - Other: See Comments Comments: Muscle cramps DUST 03/31/2005 5 - Intolerance HAYFEVER (HOMEOPATHIC PRODUCTS) 03/31/2005 5 - Intolerance LIPITOR (ATORVASTATIN CALCIUM) 01/27/2011 14 - Other: See Comments Comments: Muscle cramps NIASPAN (NIACIN (ANTIHYPERLIPIDEM*2006 8 - GI Upset PRAVASTATIN 01/27/2011 14 - Other: See Comments Comments: Muscle cramps [id number]-[id number] REDUCTASE INHIBIT*01/02/2014 14 - Other: See Comments Comments: Muscle pain ZOCOR (SIMVASTATIN) 01/27/2011 14 - Other: See Comments Comments: Muscle cramps Date Reviewed: 12/31/2020 Reviewed by: Yesica Norris LPN - Fully Assessed Reason for Visit: Refill Request [94] Visit Diagnoses:Diabetes mellitus type II (HCC) [E11.9] Hyperlipidemia, unspecified hyperlipidemia type [E78.5] Hypertriglyceridemia [E78.1] Order(s):glipiZIDE (GLUCOTROL) 5 mg tabletTake 0.5 tablets by mouth once daily.Disp: 45 tabletRfl: 1 ezetimibe (ZETIA) 10 mg tabletTake 1 tablet by mouth once daily.Disp: 90 tabletRfl: 1 Prescriptions as of 03/18/2021 - glipiZIDE (GLUCOTROL) 5 mg tablet Take 0.5 tablets by mouth once daily. - ezetimibe (ZETIA) 10 mg tablet Take 1 tablet by mouth once daily. - levothyroxine (LEVOXYL) 100 mcg tablet Take 1 tablet by mouth once daily. Take on empty stomach. For Thyroid. - fenofibrate nanocrystallized (TRICOR) 145 mg tablet Take 1 tablet by mouth once daily. - bisoprolol-hydroCHLOROth iazide (ZIAC) 2.5-6.25 mg per tablet Take 1 tablet by mouth once daily. - potassium citrate ER (UROCIT-K) 10 mEq (1,080 mg) Take 1 tablet by mouth once daily - metFORMIN (GLUCOPHAGE) 1,000 mg tablet Take 1 tablet by mouth twice daily with meals. - meloxicam (MOBIC) 15 mg tablet Take 15 mg by mouth once daily. - vit A/vit C/vit E/zinc/copper (PRESERVISION AREDS ORAL) Take by mouth. - blood sugar diagnostic (BLOOD GLUCOSE TEST) test strip Test blood sugar(s) 1-2 times daily. Dx: Type 2 DM - Uncontrolled E11.65 Insulin: No - Lancets lancets Test blood sugar(s) 1-2 times daily. Dx: Type 2 DM - Uncontrolled E11.65 Insulin: No - CPAP Initiate CPAP at same pressure of current machine. Mask (per patient preference) optional chin strap (if indicated) , filters, tubing, humidifier and lifetime supplies. - vitamin A-ascorbic acid-vitamin E-minerals (OCUVITE) Tab Take 1 tablet by mouth once daily. - aspirin (BABY ASPIRIN) 81 mg ORAL chewable tablet Take 1 tablet by mouth once daily. - COMPOUNDED PRESCRIPTION omega red - taking one daily - CENTRUM SILVER TAB Take one(1) tablet daily. Problem List As Of Date 03/17/2021 Noted Resolved BENIGN HYPERTENSION [I10] HYPERLIPIDEMIA NEC/NOS [E78.5] 01/28/2015 Unspecified sleep apnea [G47.30] 03/31/2005 01/28/2015 Hypothyroidism [E03.9] 09/16/2010 DM w/o complication type II [E11.9] 09/16/2010 01/28/2015 Diabetic peripheral neuropathy associated with *01/02/2014 Obstructive sleep apnea syndrome [G47.33] 01/28/2015 Mixed hyperlipidemia [E78.2] 05/13/2015 Type 2 diabetes mellitus without complication, *03/25/2018 Prescriptions ordered this encounter Disp Refills Start End GLIPIZIDE 5 MG TABLET 45 t* 1 03/18/2021 Route: ORAL Sig: Take 0.5 tablets by mouth once daily. EZETIMIBE 10 MG TABLET 90 t* 1 03/18/2021 Route: ORAL Sig: Take 1 tablet by mouth once daily. Medications Discontinued During This Encounter Prescriptions - glipiZIDE (GLUCOTROL) 5 mg tablet (Discontinued) Take 0.5 tablets by mouth once daily. - ezetimibe (ZETIA) 10 mg tablet (Discontinued) Take 1 tablet by mouth once daily. Encounter Status:Closed by EBONI CARDOZO on 03/18/21 Normal [facility] OBSOLETEon 01-27-2021 OBSOLETE Refill (FAMPWS) -------- JOSE MANUEL GREENFIELD ([id number]) 1950 M Date Time Provider Department 01/27/21 PODLOGAREBONI During your visit today, we recorded the following information about you: Mita Louis Pss 01/27/2021 9:06 AM Signed Patient has been identified by name and date of : Yes Pending Prescriptions Disp Refills METFORMIN 1,000 MG TABLET 180 tablet 3 Sig: Take 1 tablet by mouth twice daily with meals. KENDALL: No RX INSTRUCTIONS: Patient aware RX will be sent to pharmacy. No need to notify patient. Mita Louis Pss Allergies As of Date: 01/27/2021 Noted Allergy Reaction CRESTOR (ROSUVASTATIN CALCIUM) 01/27/2011 14 - Other: See Comments Comments: Muscle cramps DUST 03/31/2005 5 - Intolerance HAYFEVER (HOMEOPATHIC PRODUCTS) 03/31/2005 5 - Intolerance LIPITOR (ATORVASTATIN CALCIUM) 01/27/2011 14 - Other: See Comments Comments: Muscle cramps NIASPAN (NIACIN (ANTIHYPERLIPIDEM*2006 8 - GI Upset PRAVASTATIN 01/27/2011 14 - Other: See Comments Comments: Muscle cramps RALIHYU-RQW-FUZ REDUCTASE INHIBIT*01/02/2014 14 - Other: See Comments Comments: Muscle pain ZOCOR (SIMVASTATIN) 01/27/2011 14 - Other: See Comments Comments: Muscle cramps Date Reviewed: 12/31/2020 Reviewed by: Yesica Norris LPN - Fully Assessed Reason for Visit: Refill Request [94] Visit Diagnosis:Diabetes mellitus type II (HCC) [E11.9] Prescriptions as of 01/27/2021 - levothyroxine (LEVOXYL) 100 mcg tablet Take 1 tablet by mouth once daily. Take on empty stomach. For Thyroid. - fenofibrate nanocrystallized (TRICOR) 145 mg tablet Take 1 tablet by mouth once daily. - bisoprolol-hydroCHLOROth iazide (ZIAC) 2.5-6.25 mg per tablet Take 1 tablet by mouth once daily. - potassium citrate ER (UROCIT-K) 10 mEq (1,080 mg) Take 1 tablet by mouth once daily - metFORMIN (GLUCOPHAGE) 1,000 mg tablet Take 1 tablet by mouth twice daily with meals. - ezetimibe (ZETIA) 10 mg tablet Take 1 tablet by mouth once daily. - glipiZIDE (GLUCOTROL) 5 mg tablet Take 0.5 tablets by mouth once daily. - meloxicam (MOBIC) 15 mg tablet Take 15 mg by mouth once daily. - vit A/vit C/vit E/zinc/copper (PRESERVISION AREDS ORAL) Take by mouth. - blood sugar diagnostic (BLOOD GLUCOSE TEST) test strip Test blood sugar(s) 1-2 times daily. Dx: Type 2 DM - Uncontrolled E11.65 Insulin: No - Lancets lancets Test blood sugar(s) 1-2 times daily. Dx: Type 2 DM - Uncontrolled E11.65 Insulin: No - CPAP Initiate CPAP at same pressure of current machine. Mask (per patient preference) optional chin strap (if indicated) , filters, tubing, humidifier and lifetime supplies. - vitamin A-ascorbic acid-vitamin E-minerals (OCUVITE) Tab Take 1 tablet by mouth once daily. - aspirin (BABY ASPIRIN) 81 mg ORAL chewable tablet Take 1 tablet by mouth once daily. - COMPOUNDED PRESCRIPTION omega red - taking one daily - CENTRUM SILVER TAB Take one(1) tablet daily. Problem List As Of Date 01/27/2021 Noted Resolved BENIGN HYPERTENSION [I10] HYPERLIPIDEMIA NEC/NOS [E78.5] 01/28/2015 Unspecified sleep apnea [G47.30] 03/31/2005 01/28/2015 Hypothyroidism [E03.9] 09/16/2010 DM w/o complication type II [E11.9] 09/16/2010 01/28/2015 Diabetic peripheral neuropathy associated with *01/02/2014 Obstructive sleep apnea syndrome [G47.33] 01/28/2015 Mixed hyperlipidemia [E78.2] 05/13/2015 Type 2 diabetes mellitus without complication, *03/25/2018 Encounter Status:Closed by JONATHANKARRI HOANG MA on 01/27/21 [facility] JOSE MANUEL GREENFIELD ([id number]) 1950 M Date Time Provider Department 01/01/21 TONE JESUS [facility] During your visit today, we recorded the following information about you: Tone Jesus MD 01/01/2021 11:28 AM Signed COVID test was positive. Continue home isolation 10 days from symptom onset. Close contacts should quarantine. Treat with supportive care. F/u virtually with worsening symptoms; ER if severe. M Jefe Montoya RN 01/01/2021 12:14 PM Signed Patient returned call and given provider's message below with verbalized understanding. Allergies As of Date: 01/01/2021 Noted Allergy Reaction CRESTOR (ROSUVASTATIN CALCIUM) 01/27/2011 14 - Other: See Comments Comments: Muscle cramps DUST 03/31/2005 5 - Intolerance HAYFEVER (HOMEOPATHIC PRODUCTS) 03/31/2005 5 - Intolerance LIPITOR (ATORVASTATIN CALCIUM) 01/27/2011 14 - Other: See Comments Comments: Muscle cramps NIASPAN (NIACIN (ANTIHYPERLIPIDEM*2006 8 - GI Upset PRAVASTATIN 01/27/2011 14 - Other: See Comments Comments: Muscle cramps PDXEKHQ-LTD-VZR REDUCTASE INHIBIT*01/02/2014 14 - Other: See Comments Comments: Muscle pain ZOCOR (SIMVASTATIN) 01/27/2011 14 - Other: See Comments Comments: Muscle cramps Date Reviewed: 12/31/2020 Reviewed by: Yesica Norris LPN - Fully Assessed Reason for Visit: Results [95] Cmt: COVID+ Prescriptions as of 01/01/2021 - levothyroxine (LEVOXYL) 100 mcg tablet Take 1 tablet by mouth once daily. Take on empty stomach. For Thyroid. - fenofibrate nanocrystallized (TRICOR) 145 mg tablet Take 1 tablet by mouth once daily. - bisoprolol-hydroCHLOROth iazide (ZIAC) 2.5-6.25 mg per tablet Take 1 tablet by mouth once daily. - potassium citrate ER (UROCIT-K) 10 mEq (1,080 mg) Take 1 tablet by mouth once daily - metFORMIN (GLUCOPHAGE) 1,000 mg tablet Take 1 tablet by mouth twice daily with meals. - ezetimibe (ZETIA) 10 mg tablet Take 1 tablet by mouth once daily. - glipiZIDE (GLUCOTROL) 5 mg tablet Take 0.5 tablets by mouth once daily. - meloxicam (MOBIC) 15 mg tablet Take 15 mg by mouth once daily. - vit A/vit C/vit E/zinc/copper (PRESERVISION AREDS ORAL) Take by mouth. - blood sugar diagnostic (BLOOD GLUCOSE TEST) test strip Test blood sugar(s) 1-2 times daily. Dx: Type 2 DM - Uncontrolled E11.65 Insulin: No - Lancets lancets Test blood sugar(s) 1-2 times daily. Dx: Type 2 DM - Uncontrolled E11.65 Insulin: No - CPAP Initiate CPAP at same pressure of current machine. Mask (per patient preference) optional chin strap (if indicated) , filters, tubing, humidifier and lifetime supplies. - vitamin A-ascorbic acid-vitamin E-minerals (OCUVITE) Tab Take 1 tablet by mouth once daily. - aspirin (BABY ASPIRIN) 81 mg ORAL chewable tablet Take 1 tablet by mouth once daily. - COMPOUNDED PRESCRIPTION omega red - taking one daily - CENTRUM SILVER TAB Take one(1) tablet daily. Problem List As Of Date 01/01/2021 Noted Resolved BENIGN HYPERTENSION [I10] HYPERLIPIDEMIA NEC/NOS [E78.5] 01/28/2015 Unspecified sleep apnea [G47.30] 03/31/2005 01/28/2015 Hypothyroidism [E03.9] 09/16/2010 DM w/o complication type II [E11.9] 09/16/2010 01/28/2015 Diabetic peripheral neuropathy associated with *01/02/2014 Obstructive sleep apnea syndrome [G47.33] 01/28/2015 Mixed hyperlipidemia [E78.2] 05/13/2015 Type 2 diabetes mellitus without complication, *03/25/2018 Encounter Status:Closed by Hamida MONTOYA RN on 01/01/21 [facility] CNOVon 12-31-2020 CNOV Office Visit (UCWSTR ) -------- JOSE MANUEL GREENFIELD ([id number]) 1950 M Date Time Provider Department 12/31/20 1:45 PM BRITTANY MANE [facility] During your visit today, we recorded the following information about you: Temperature Pulse Respiration Blood pressure 98.9 degrees 63/minute 16/minute 122/70 Weight 84.7 kg Brittany Mane APRN.CNP 12/31/2020 2:30 PM Signed This note was created using [employer]. Subjective Jose Manuel Greenfield is a 70 year old male. 70 [...] history is provided by the patient. No transport aircrewman was used. Cough This is a new [...] COLONOSCOP W/ OR W/O [facility] SPEC 11/20/2011 Colonoscopy. repeat in 10 years - [facility] RADICAL PROSTATECTOMY 11/30/2018 - PAST SURGICAL HISTORY OF right 5th finger - REMOVAL OF TONSILS,<11 Y/O ALLERGIES Crestor [Rosuvastatin Calcium], Dust, Hayfever [Homeopathic Products], Lipitor [Atorvastatin Calcium], Niaspan [Niacin (Antihyperlipidemic)], Pravastatin, Nkskzhy-Tva-Tpq Reductase Inhibitors, and Zocor [Simvastatin] MEDICATIONS levothyroxine (LEVOXYL) 100 mcg tablet Take 1 tablet by mouth once daily. Take on empty stomach. For Thyroid. bisoprolol-hydroCHLOROth iazide (ZIAC) 2.5-6.25 mg per tablet Take 1 [...] cough. Negative for apnea, choking, chest tightness, (more content not included)... Normal [facility] Coronavirus 2019on 1 SARS-CoV-2 (COVID-19) RNA SILVA+probe Ql (Unsp spec) UPPER RESPIRATORY TRACT SWAB Normal [facility] Comment on above: Performed By: #### C OVID ####[facility] [id number] [place], [place] [address] [address] [place], [place] [phone] SARS-CoV-2 (COVID-19) RNA SILVA+probe Ql (Unsp spec) Positive for COVID19 (SARS CoV2) by RT-PCR or equivalent method. Critically abnormal Negative for COVID19 (SARS CoV2) by RT-PCR or equivalent method. [facility] Comment on above: Result Comment: This test was developed and its performance characteristics determined by [facility] [place]. This test has been authorized by FDA under an Emergency Use Authorization (EUA). This test has been validated in accordance with the FDA's Guidance Document Policy for Diagnostics Testing in Laboratories Certified to Perform High Complexity Testing under CLIA prior to Emergency use Authorization for Coronavirus Disease 2019 during the Public Health Emergency issued on June 03, 2019. Test performed by [facility], [facility] [place], [address] [place], [place] [address]. Performed By: #### C OVID ####[facility] [id number] [place], [place] [address] [place], [place] [phone] PSA, Diagn[employer]icon 12-22-2020 PSA, Diagnostic <0.03 Normal 0.00-2.59 [facility] Comment on above: Performed By: #### P SA #### [facility] [address] [place], [place] [address] OBSOLETEon 12-16-2020 OBSOLETE Refill (MELPWS) -------- SINDY GREENFIELD ([id number]) 1950 M Date Time Provider Department 12/16/20 ANDREW CALLEPWS During your visit today, we recorded the following information about you: Mindi Byers 12/16/2020 2:47 PM Addendum Patient has been identified by name and date of : Yes Pending Prescriptions Disp Refills POTASSIUM CITRATE ER 10 MEQ (1,080 MG) TABLET,EXTENDED RELEASE 90 tablet 1 Sig: Take 1 tablet by mouth once daily KENDALL: No AISLINN-09/24/20 with ASSISTANT SCIENTIST Labs-09/21/20 NOV-03/26/21 with ASSISTANT SCIENTIST RX INSTRUCTIONS: Patient aware RX will be sent to pharmacy. No need to notify patient. Mindi Byers Allergies As of Date: 12/16/2020 Noted Allergy Reaction CRESTOR (ROSUVASTATIN CALCIUM) 01/27/2011 14 - Other: See Comments Comments: Muscle cramps DUST 03/31/2005 5 - Intolerance HAYFEVER (HOMEOPATHIC PRODUCTS) 03/31/2005 5 - Intolerance LIPITOR (ATORVASTATIN CALCIUM) 01/27/2011 14 - Other: See Comments Comments: Muscle cramps NIASPAN (NIACIN (ANTIHYPERLIPIDEM*2006 8 - GI Upset PRAVASTATIN 01/27/2011 14 - Other: See Comments Comments: Muscle cramps KOMRHLQ-HHC-TSG REDUCTASE INHIBIT*01/02/2014 14 - Other: See Comments Comments: Muscle pain ZOCOR (SIMVASTATIN) 01/27/2011 14 - Other: See Comments Comments: Muscle cramps Date Reviewed: 09/24/2020 Reviewed by: Ana Maria Miller LPN - Fully Assessed Reason for Visit: Refill Request [94] Order(s):potassium citrate ER (UROCIT-K) 10 mEq (1,080 mg)Take 1 tablet by mouth once dailyDisp: 90 tabletRfl: 1 Prescriptions as of 12/16/2020 - levothyroxine (LEVOXYL) 100 mcg tablet Take 1 tablet by mouth once daily. Take on empty stomach. For Thyroid. - fenofibrate nanocrystallized (TRICOR) 145 mg tablet Take 1 tablet by mouth once daily. - bisoprolol-hydroCHLOROth iazide (ZIAC) 2.5-6.25 mg per tablet Take 1 tablet by mouth once daily. - potassium citrate ER (UROCIT-K) 10 mEq (1,080 mg) Take 1 tablet by mouth once daily - ezetimibe (ZETIA) 10 mg tablet Take 1 tablet by mouth once daily. - metFORMIN (GLUCOPHAGE) 1,000 mg tablet Take 1 tablet by mouth twice daily with meals. - glipiZIDE (GLUCOTROL) 5 mg tablet Take 0.5 tablets by mouth once daily. - meloxicam (MOBIC) 15 mg tablet Take 15 mg by mouth once daily. - vit A/vit C/vit E/zinc/copper (PRESERVISION AREDS ORAL) Take by mouth. - blood sugar diagnostic (BLOOD GLUCOSE TEST) test strip Test blood sugar(s) 1-2 times daily. Dx: Type 2 DM - Uncontrolled E11.65 Insulin: No - Lancets lancets Test blood sugar(s) 1-2 times daily. Dx: Type 2 DM - Uncontrolled E11.65 Insulin: No - CPAP Initiate CPAP at same pressure of current machine. Mask (per patient preference) optional chin strap (if indicated) , filters, tubing, humidifier and lifetime supplies. - vitamin A-ascorbic acid-vitamin E-minerals (OCUVITE) Tab Take 1 tablet by mouth once daily. - aspirin (BABY ASPIRIN) 81 mg ORAL chewable tablet Take 1 tablet by mouth once daily. - COMPOUNDED PRESCRIPTION omega red - taking one daily - CENTRUM SILVER TAB Take one(1) tablet daily. Problem List As Of Date 12/16/2020 Noted Resolved BENIGN HYPERTENSION [I10] HYPERLIPIDEMIA NEC/NOS [E78.5] 01/28/2015 Unspecified sleep apnea [G47.30] 03/31/2005 01/28/2015 Hypothyroidism [E03.9] 09/16/2010 DM w/o complication type II [E11.9] 09/16/2010 01/28/2015 Diabetic peripheral neuropathy associated with *01/02/2014 Obstructive sleep apnea syndrome [G47.33] 01/28/2015 Mixed hyperlipidemia [E78.2] 05/13/2015 Type 2 diabetes mellitus without complication, *03/25/2018 Prescriptions ordered this encounter Disp Refills Start End POTASSIUM CITRATE ER 10 MEQ (1,080 M* 90 t* 1 12/16/2020 Sig: Take 1 tablet by mouth once daily Medications Discontinued During This Encounter Prescriptions - potassium citrate ER (UROCIT-K) 10 mEq (1,080 mg) (Discontinued) Take 1 tablet by mouth once daily Encounter Status:Closed by EBONI CARDOZO on 12/16/20 [facility] OBSOLETE Refill (FAMPWS) -------- SINDY GREENFIELD ([id number]) 1950 M Date Time Provider Department 12/16/20 ANDREW CALLE FAMPWS During your visit today, we recorded the following information about you: Mindi Byers 12/16/2020 2:49 PM Addendum Patient has been identified by name and date of : Yes Pending Prescriptions Disp Refills METFORMIN 1,000 MG TABLET 90 tablet 3 Sig: Take 1 tablet by mouth twice daily with meals. KENDALL: No AISLINN-09/24/20 with ASSISTANT SCIENTIST Labs-09/21/20 NOV-03/26/21 with ASSISTANT SCIENTIST RX INSTRUCTIONS: Patient aware RX will be sent to pharmacy. No need to notify patient. Mindi Byers Allergies As of Date: 12/16/2020 Noted Allergy Reaction CRESTOR (ROSUVASTATIN CALCIUM) 01/27/2011 14 - Other: See Comments Comments: Muscle cramps DUST 03/31/2005 5 - Intolerance HAYFEVER (HOMEOPATHIC PRODUCTS) 03/31/2005 5 - Intolerance LIPITOR (ATORVASTATIN CALCIUM) 01/27/2011 14 - Other: See Comments Comments: Muscle cramps NIASPAN (NIACIN (ANTIHYPERLIPIDEM*2006 8 - GI Upset PRAVASTATIN 01/27/2011 14 - Other: See Comments Comments: Muscle cramps LJVUZUQ-KSP-MHU REDUCTASE INHIBIT*01/02/2014 14 - Other: See Comments Comments: Muscle pain ZOCOR (SIMVASTATIN) 01/27/2011 14 - Other: See Comments Comments: Muscle cramps Date Reviewed: 09/24/2020 Reviewed by: Ana Maria Miller LPN - Fully Assessed Reason for Visit: Refill Request [94] Visit Diagnosis:Diabetes mellitus type II (HCC) [E11.9] Order(s):metFORMIN (GLUCOPHAGE) 1,000 mg tabletTake 1 tablet by mouth twice daily with meals.Disp: 90 tabletRfl: 3 Prescriptions as of 12/16/2020 - levothyroxine (LEVOXYL) 100 mcg tablet Take 1 tablet by mouth once daily. Take on empty stomach. For Thyroid. - fenofibrate nanocrystallized (TRICOR) 145 mg tablet Take 1 tablet by mouth once daily. - bisoprolol-hydroCHLOROth iazide (ZIAC) 2.5-6.25 mg per tablet Take 1 tablet by mouth once daily. - potassium citrate ER (UROCIT-K) 10 mEq (1,080 mg) Take 1 tablet by mouth once daily - metFORMIN (GLUCOPHAGE) 1,000 mg tablet Take 1 tablet by mouth twice daily with meals. - ezetimibe (ZETIA) 10 mg tablet Take 1 tablet by mouth once daily. - glipiZIDE (GLUCOTROL) 5 mg tablet Take 0.5 tablets by mouth once daily. - meloxicam (MOBIC) 15 mg tablet Take 15 mg by mouth once daily. - vit A/vit C/vit E/zinc/copper (PRESERVISION AREDS ORAL) Take by mouth. - blood sugar diagnostic (BLOOD GLUCOSE TEST) test strip Test blood sugar(s) 1-2 times daily. Dx: Type 2 DM - Uncontrolled E11.65 Insulin: No - Lancets lancets Test blood sugar(s) 1-2 times daily. Dx: Type 2 DM - Uncontrolled E11.65 Insulin: No - CPAP Initiate CPAP at same pressure of current machine. Mask (per patient preference) optional chin strap (if indicated) , filters, tubing, humidifier and lifetime supplies. - vitamin A-ascorbic acid-vitamin E-minerals (OCUVITE) Tab Take 1 tablet by mouth once daily. - aspirin (BABY ASPIRIN) 81 mg ORAL chewable tablet Take 1 tablet by mouth once daily. - COMPOUNDED PRESCRIPTION omega red - taking one daily - CENTRUM SILVER TAB Take one(1) tablet daily. Problem List As Of Date 12/16/2020 Noted Resolved BENIGN HYPERTENSION [I10] HYPERLIPIDEMIA NEC/NOS [E78.5] 01/28/2015 Unspecified sleep apnea [G47.30] 03/31/2005 01/28/2015 Hypothyroidism [E03.9] 09/16/2010 DM w/o complication type II [E11.9] 09/16/2010 01/28/2015 Diabetic peripheral neuropathy associated with *01/02/2014 Obstructive sleep apnea syndrome [G47.33] 01/28/2015 Mixed hyperlipidemia [E78.2] 05/13/2015 Type 2 diabetes mellitus without complication, *03/25/2018 Prescriptions ordered this encounter Disp Refills Start End METFORMIN 1,000 MG TABLET 90 t* 3 12/16/2020 Route: ORAL Sig: Take 1 tablet by mouth twice daily with meals. Medications Discontinued During This Encounter Prescriptions - metFORMIN (GLUCOPHAGE) 1,000 mg tablet (Discontinued) Take 1 tablet by mouth twice daily with meals. Encounter Status:Closed by EBONI CARDOZO on 12/16/20 [facility] OBSOLETEon 12-14-2020 OBSOLETE Refill (FAMPWS) -------- SINDY GREENFIELD ([id number]) 1950 M Date Time Provider Department 12/14/20 ANDREW CALLE FAMPWS During your visit today, we recorded the following information about you: Alice Kelley Pss 12/14/2020 9:52 AM Signed Patient has been identified by name and date of : Yes Last office visit in this department: 09/24/2020 RX INSTRUCTIONS: Patient aware RX will be sent to pharmacy. No need to notify patient. Patient phones requesting refills as follows: Pending Prescriptions Disp Refills LEVOTHYROXINE 100 MCG TABLET 90 tablet 1 Sig: Take 1 tablet by mouth once daily. Take on empty stomach. For Thyroid. KENDALL: No FENOFIBRATE NANOCRYSTALLIZED 145 MG TABLET 90 tablet 3 Sig: Take 1 tablet by mouth once daily. KENDALL: No BISOPROLOL 2.5 MG-HYDROCHLOROTHIAZIDE 6.25 MG TABLET 90 tablet 1 Sig: Take 1 tablet by mouth once daily. KENDALL: No Please review and advise. Alice Kelley Pss Allergies As of Date: 12/14/2020 Noted Allergy Reaction CRESTOR (ROSUVASTATIN CALCIUM) 01/27/2011 14 - Other: See Comments Comments: Muscle cramps DUST 03/31/2005 5 - Intolerance HAYFEVER (HOMEOPATHIC PRODUCTS) 03/31/2005 5 - Intolerance LIPITOR (ATORVASTATIN CALCIUM) 01/27/2011 14 - Other: See Comments Comments: Muscle cramps NIASPAN (NIACIN (ANTIHYPERLIPIDEM*2006 8 - GI Upset PRAVASTATIN 01/27/2011 14 - Other: See Comments Comments: Muscle cramps EAYLLGJ-UPR-IBT REDUCTASE INHIBIT*01/02/2014 14 - Other: See Comments Comments: Muscle pain ZOCOR (SIMVASTATIN) 01/27/2011 14 - Other: See Comments Comments: Muscle cramps Date Reviewed: 09/24/2020 Reviewed by: Ana Maria Miller LPN - Fully Assessed Reason for Visit: Refill Request [94] Visit Diagnosis:Acquired hypothyroidism [E03.9] Order(s):levothyroxine (LEVOXYL) 100 mcg tabletTake 1 tablet by mouth once daily. Take on empty stomach. For Thyroid.Disp: 90 tabletRfl: 1 fenofibrate nanocrystallized (TRICOR) 145 mg tabletTake 1 tablet by mouth once daily.Disp: 90 tabletRfl: 3 bisoprolol-hydroCHLOROth iazide (ZIAC) 2.5-6.25 mg per tabletTake 1 tablet by mouth once daily.Disp: 90 tabletRfl: 1 Prescriptions as of 12/16/2020 - levothyroxine (LEVOXYL) 100 mcg tablet Take 1 tablet by mouth once daily. Take on empty stomach. For Thyroid. - fenofibrate nanocrystallized (TRICOR) 145 mg tablet Take 1 tablet by mouth once daily. - bisoprolol-hydroCHLOROth iazide (ZIAC) 2.5-6.25 mg per tablet Take 1 tablet by mouth once daily. - ezetimibe (ZETIA) 10 mg tablet Take 1 tablet by mouth once daily. - potassium citrate ER (UROCIT-K) 10 mEq (1,080 mg) Take 1 tablet by mouth once daily - metFORMIN (GLUCOPHAGE) 1,000 mg tablet Take 1 tablet by mouth twice daily with meals. - glipiZIDE (GLUCOTROL) 5 mg tablet Take 0.5 tablets by mouth once daily. - meloxicam (MOBIC) 15 mg tablet Take 15 mg by mouth once daily. - vit A/vit C/vit E/zinc/copper (PRESERVISION AREDS ORAL) Take by mouth. - blood sugar diagnostic (BLOOD GLUCOSE TEST) test strip Test blood sugar(s) 1-2 times daily. Dx: Type 2 DM - Uncontrolled E11.65 Insulin: No - Lancets lancets Test blood sugar(s) 1-2 times daily. Dx: Type 2 DM - Uncontrolled E11.65 Insulin: No - CPAP Initiate CPAP at same pressure of current machine. Mask (per patient preference) optional chin strap (if indicated) , filters, tubing, humidifier and lifetime supplies. - vitamin A-ascorbic acid-vitamin E-minerals (OCUVITE) Tab Take 1 tablet by mouth once daily. - aspirin (BABY ASPIRIN) 81 mg ORAL chewable tablet Take 1 tablet by mouth once daily. - COMPOUNDED PRESCRIPTION omega red - taking one daily - CENTRUM SILVER TAB Take one(1) tablet daily. Problem List As Of Date 12/14/2020 Noted Resolved BENIGN HYPERTENSION [I10] HYPERLIPIDEMIA NEC/NOS [E78.5] 01/28/2015 Unspecified sleep apnea [G47.30] 03/31/2005 01/28/2015 Hypothyroidism [E03.9] 09/16/2010 DM w/o complication type II [E11.9] 09/16/2010 01/28/2015 Diabetic peripheral neuropathy associated with *01/02/2014 Obstructive sleep apnea syndrome [G47.33] 01/28/2015 Mixed hyperlipidemia [E78.2] 05/13/2015 Type 2 diabetes mellitus without complication, *03/25/2018 Prescriptions ordered this encounter Disp Refills Start End LEVOTHYROXINE 100 MCG TABLET 90 t* 1 12/16/2020 Route: ORAL Sig: Take 1 tablet by mouth once daily. Take on empty stomach. For Thyroid. FENOFIBRATE NANOCRYSTALLIZED 145 MG * 90 t* 3 12/16/2020 Route: ORAL Sig: Take 1 tablet by mouth once daily. BISOPROLOL 2.5 MG-HYDROCHLOROTHIAZID* 90 t* 1 12/16/2020 Route: ORAL Sig: Take 1 tablet by mouth once daily. Medications Discontinued During This Encounter Prescriptions - levothyroxine (LEVOXYL) 100 mcg tablet (Discontinued) Take 1 tablet by mouth once daily. Take on empty stomach. For Thyroid. - fenofibrate nanocrystallized (TRICOR) 145 mg tablet (Discontinued) Take 1 t (more content not included)... Normal [facility] CNOVon 09-24-2020 CNOV Office Visit (FAMPWS ) -------- SINDY GREENFIELD ([id number]) 1950 M Date Time Provider Department 09/24/20 8:40 AM EBONI CARDOZO During your visit today, we recorded the following information about you: Pulse Respiration Blood pressure Weight 60/minute 16/minute 124/62 86.4 kg Eboni Cardozo APRN.CNP 09/24/2020 10:14 AM Signed 09/24/2020 Patient presents with: Recheck SUBJECTIVE: This is a 70 year old that is here today for Above Complaints. DIABETES MELLITUS: Mr. Greenfield was last seen 3 months ago. Since our last visit he denies excessive thirst or increased frequency of urination, chest pain or dyspnea , numbness, tingling or pain in extremities, new or unusual visual symptoms, low sugar/hypoglycemic reactions, weight loss/gain, lightheadedness/dizzines s and bowel changes/loose stools. Follows a diabetic [...] Lipitor [Atorvastatin Calcium], Niaspan [Niacin (Antihyperlipidemic)], Pravastatin, Kjejbhu-Iij-Vjl Reductase Inhibitors, and Zocor [Simvastatin] MEDICATIONS Current Outpatient Medications Medication Sig - ezetimibe (ZETIA) 10 mg tablet Take 1 tablet by mouth once daily. - potassium citrate ER (UROCIT-K) 10 mEq (1,080 mg) Take 1 tablet by mouth once daily - bisoprolol-hydroCHLOROth iazide (ZIAC) 2.5-6.25 mg per tablet Take 1 [...] no gallops, no JVD appreciated LUNG clear t (more content not included)... Normal [facility] OBSOLETEon 09-24-2020 OBSOLETE Refill (JOSÉ) -------- SINDY GREENFIELD ([id number]) 1950 M Date Time Provider Department 09/24/20 PODLOGAR, EBONI KUMAR During your visit today, we recorded the following information about you: Kathy Goldmanbeny MUNOZ 09/24/2020 11:51 AM Signed Pt calls to report he had an appt today. Pt thought provider was going to send in rx for Zetia 10 mg. Pt reports he wants #90 to be sent to [facility]. Patient has been identified by name and date of : Yes Pending Prescriptions Disp Refills EZETIMIBE 10 MG TABLET 90 tablet 1 Sig: Take 1 tablet by mouth once daily. KENDALL: No RX INSTRUCTIONS: Patient aware RX will be sent to pharmacy. No need to notify patient. Kathy William LPN Allergies As of Date: 09/24/2020 Noted Allergy Reaction CRESTOR (ROSUVASTATIN CALCIUM) 01/27/2011 14 - Other: See Comments Comments: Muscle cramps DUST 03/31/2005 5 - Intolerance HAYFEVER (HOMEOPATHIC PRODUCTS) 03/31/2005 5 - Intolerance LIPITOR (ATORVASTATIN CALCIUM) 01/27/2011 14 - Other: See Comments Comments: Muscle cramps NIASPAN (NIACIN (ANTIHYPERLIPIDEM*2006 8 - GI Upset PRAVASTATIN 01/27/2011 14 - Other: See Comments Comments: Muscle cramps [id number] REDUCTASE INHIBIT*01/02/2014 14 - Other: See Comments Comments: Muscle pain ZOCOR (SIMVASTATIN) 01/27/2011 14 - Other: See Comments Comments: Muscle cramps Date Reviewed: 09/24/2020 Reviewed by: Ana Maria Miller LPN - Fully Assessed Reason for Visit: Refill Request [94] Visit Diagnoses:Hyperlipidemia , unspecified hyperlipidemia type [E78.5] Hypertriglyceridemia [E78.1] Order(s):ezetimibe (ZETIA) 10 mg tabletTake 1 tablet by mouth once daily.Disp: 90 tabletRfl: 1 Prescriptions as of 09/24/2020 Sig: EZETIMIBE 10 MG TABLET Take 1 tablet by mouth once d* POTASSIUM CITRATE ER 10 MEQ (* Take 1 tablet by mouth once d* BISOPROLOL 2.5 MG-HYDROCHLORO* Take 1 tablet by mouth once d* LEVOTHYROXINE 100 MCG TABLET Take 1 tablet by mouth once d* METFORMIN 1,000 MG TABLET Take 1 tablet by mouth twice * GLIPIZIDE 5 MG TABLET Take 0.5 tablets by mouth onc* FENOFIBRATE NANOCRYSTALLIZED * Take 1 tablet by mouth once d* MELOXICAM 15 MG TABLET Take 15 mg by mouth once tracy* Patient not taking: Reported on 09/24/2020 PRESERVISION AREDS ORAL Take by mouth. BLOOD GLUCOSE TEST STRIPS Test blood sugar(s) 1-2 times* Patient not taking: Reported on 06/21/2020 LANCETS Test blood sugar(s) 1-2 times* Patient not taking: Reported on 06/21/2020 CPAP Initiate CPAP at same pressur* VITAMIN A-VITAMIN C-VIT E-MIN* Take 1 tablet by mouth once d* Patient not taking: Reported on 06/21/2020 ASPIRIN 81 MG CHEWABLE TABLET Take 1 tablet by mouth once d* COMPOUNDED PRESCRIPTION omega red - taking one daily CENTRUM SILVER TABLET Take one(1) tablet daily. Problem List As Of Date 09/24/2020 Noted Resolved BENIGN HYPERTENSION [I10] HYPERLIPIDEMIA NEC/NOS [E78.5] 01/28/2015 Unspecified sleep apnea [G47.30] 03/31/2005 01/28/2015 Hypothyroidism [E03.9] 09/16/2010 DM w/o complication type II [E11.9] 09/16/2010 01/28/2015 Diabetic peripheral neuropathy associated with *01/02/2014 Obstructive sleep apnea syndrome [G47.33] 01/28/2015 Mixed hyperlipidemia [E78.2] 05/13/2015 Type 2 diabetes mellitus without complication, *03/25/2018 Prescriptions ordered this encounter Disp Refills Start End EZETIMIBE 10 MG TABLET 90 t* 1 09/24/2020 Route: ORAL Sig: Take 1 tablet by mouth once daily. Medications Discontinued During This Encounter Prescriptions - ezetimibe (ZETIA) 10 mg tablet (Discontinued) Take 1 tablet by mouth once daily. Encounter Status:Closed by PODLOGEBONI SUMNER on 09/24/[address] [facility] Comp Metabolic Panelon 09-21 Albumin [Mass/Vol] 4.4 g/dL Normal 3.9-4.9 [facility] Comment on above: Performed By: #### L IPB, CMP, HBA1C ####[facility] [place], [place] [phone] ALP [Catalytic activity/Vol] 58 U/L Normal 38-[address] [facility] Comment on above: Performed By: #### L IPB, CMP, HBA1C ####[facility] [address] [place], [place] [phone] ALT [Catalytic activity/Vol] 17 U/L Normal 10-[address] [facility] Comment on above: Performed By: #### L IPB, CMP, HBA1C ####[facility] [address] [place], [place] [phone] Anion gap [Moles/Vol] 14 mmol/L Normal 9-18 [facility] Comment on above: Performed By: #### L IPB, CMP, HBA1C ####[place] [address] [address], [place] [phone] AST [Catalytic activity/Vol] 21 U/L Normal 14-[address] [facility] Comment on above: Performed By: #### L IPB, CMP, HBA1C ####[place] [address] [address], [place] [phone] Bilirubin [Mass/Vol] 0.2 mg/dL Normal 0.2-1.3 [facility] Comment on above: Performed By: #### L IPB, CMP, HBA1C ####[place] [address] [address], [place] [phone] Calcium [Mass/Vol] 9.7 mg/dL Normal 8.5-10.2 [facility] Comment on above: Performed By: #### L IPB, CMP, HBA1C ####[place] [address] [place] [phone] Chloride [Moles/Vol] 107 mmol/L High 97-105 [facility] Comment on above: Performed By: #### L IPB, CMP, HBA1C ####[place] [address] [place] [phone] CO2 [Moles/Vol] 20 mmol/L Low 22-[address] [facility] Comment on above: Performed By: #### L IPB, CMP, HBA1C ####[place] [address] [address], [place] [phone] Creatinine [Mass/Vol] 1.28 mg/dL High 0.73-1.22 [facility] Comment on above: Performed By: #### L IPB, CMP, HBA1C ####[place] [address] [address], [place] [phone] eGFR- Amer. >60 Normal [facility] Comment on above: Performed By: #### L IPB, CMP, HBA1C ####[place] [address] [address], [place] [phone] eGFR-All Other Races 55 . Normal [facility] Comment on above: Result Comment: eGFR (Estimated GFR) Units of measure: mL/min/1.73 meters squared eGFR is derived from the reexpressed MDRD Study equation using the following parameters: serum creatinine, age, gender and race. The creatinine assay has been calibrated to be traceable to IDMS. An eGFR <60 mL/min/1.73m2 for >3 months is consistent with chronic kidney disease. Refer to KDOQI guidelines for clinical interpretation. In patients with unstable renal function, e.g. those with acute kidney injury, the eGFR may not accurately reflect actual GFR. Performed By: #### L IPB, CMP, HBA1C ####[facility], [place] [phone] Glucose [Mass/Vol] 144 mg/dL High 74-99 [facility] Comment on above: Result Comment: The [place] Diabetes Association (ADA) provides guidance for cutoff values for fasting glucose and random glucose. The ADA defines fasting as no caloric intake for at least 8 hours. Fasting plasma glucose results between 100 to 125 mg/dL indicate increased risk for diabetes (prediabetes). Fasting plasma glucose results greater than or equal to 126 mg/dL meet the criteria for diagnosis of diabetes. In the absence of unequivocal hyperglycemia, results should be confirmed by repeat testing. In a patient with classic symptoms of hyperglycemia or hyperglycemic crisis, random plasma glucose results greater than or equal to 200 mg/dL meet the criteria for diagnosis of diabetes. Reference: Standards of Medical Care in Diabetes 2016, [place] Diabetes Association. Diabetes Care. 2016.39(Suppl 1). Performed By: #### L IPB, CMP, HBA1C ####[facility] [address] [place], [place] [phone] Potassium [Moles/Vol] 4.0 mmol/L Normal 3.7-5.1 [facility] Comment on above: Performed By: #### L IPB, CMP, HBA1C ####[facility] [address] [place], [place] [phone] Protein [Mass/Vol] 7.4 g/dL Normal 6.3-8.0 [facility] Comment on above: Performed By: #### L IPB, CMP, HBA1C ####[facility] [place], [place] [phone] Sodium [Moles/Vol] 141 mmol/L Normal 136-144 [facility] Comment on above: Performed By: #### L IPB, CMP, HBA1C ####[address] [phone] Urea nitrogen [Mass/Vol] 36 mg/dL High 9-[address] [facility] Comment on above: Performed By: #### L IPB, CMP, HBA1C ####[place] [address] [place], [place] [phone] Hemoglobin A1con 09-21-2020 Glucose [Mass/Vol] 146 mg/dL Normal [facility] Comment on above: Result Comment: eAG: (Estimated average glucose) is a calculated value from HgbA1c and is public service representative of the average blood glucose level in the last 2-3 month period. Performed By: #### L IPB, CMP, HBA1C ####[address] [phone] HbA1c (Bld) [Mass fraction] 6.7 % High 4.3-5.[address] [facility] Comment on above: Result Comment: [place] Diabetes Association guidelines indicate that patients with HgbA1c in the range 5.7-6.4% are at increased risk for development of diabetes, and intervention by lifestyle modification may be beneficial. HgbA1c greater or equal to 6.5% is considered diagnostic of diabetes. Performed By: #### L IPB, CMP, HBA1C ####[facility] [place], [place] [phone] Lipid Panel, Basicon 021 Cholesterol [Mass/Vol] 185 mg/dL Normal <200 [facility] Comment on above: Result Comment: <200 mg/dL, Desirable 200-239 mg/dL, Borderline high >239 mg/dL, High Performed By: #### L IPB, CMP, HBA1C ####[facility] [address], [place] [phone] Cholesterol in HDL [Mass/Vol] 24 mg/dL Low >[address] [facility] Comment on above: Result Comment: 40-5 9 mg/dL, Acceptable >59 mg/dL, High: Negative risk factor for coronary heart disease <40 mg/dL, Low: Positive risk factor for coronary heart disease Performed By: #### L IPB, CMP, HBA1C ####[facility] [address], [place] [phone] Cholesterol in LDL [Mass/Vol] 107 mg/dL High <[address] [facility] Comment on above: Result Comment: <100 mg/dL, Optimal 100-129 mg/dL, Near optimal/above optimal 130-159 mg/dL, Borderline high 160-189 mg/dL, High >189 mg/dL, Very high Secondary prevention optimal LDL Cholesterol levels are recommended to be < 70 mg/dL Performed By: #### L IPB, CMP, HBA1C ####[facility] [address], [place] [phone] Fasting Time 12 hrs Normal [facility] Comment on above: Performed By: #### L IPB, CMP, HBA1C ####[facility] [address], [place] [phone] LDL:HDL Ratio 4.46 High <2.[address] [facility] Comment on above: Result Comment: Refe rence: 1. National Cholesterol Education Program ATP III Guideline At-A-Glance Quick Desk Reference: National Heart, Lung, and Blood Vallecitos. National Institutes of Health. 2001: NIH Publication No. 01-3305. 2. An International Atherosclerosis Society position paper: global recommendations for the management of dyslipidemia: executive summary, Atherosclerosis. 2014: 232(2):410-413. Performed By: #### L IPB, CMP, HBA1C ####[facility], [place] [phone] Non HDL Cholesterol 161 mg/dL High <130 [facility] Comment on above: Result Comment: <130 mg/dL, Optimal 130-159 mg/dL, Near optimal/above optimal 160-189 mg/dL, Borderline high 190-219 mg/dL, High >219 mg/dL, Very high Secondary prevention optimal non HDL Cholesterol levels are recommended to be < 100 mg/dL Performed By: #### L IPB, CMP, HBA1C ####[facility] [address] [place], [place] [phone] TC:HDL Ratio 7.71 High <5.[address] [facility] Comment on above: Performed By: #### L IPB, CMP, HBA1C ####[facility] [place], [place] [phone] Triglyceride [Mass/Vol] 268 mg/dL High <150 [facility] Comment on above: Result Comment: <150 mg/dL, Normal 150-199 mg/dL, Borderline high 200-499 mg/dL, High >499 mg/dL, Very high Performed By: #### L IPB, CMP, HBA1C ####[facility] [address] [place], [place] [phone] VLDL Cholesterol 54 mg/dL High <30 [facility] Comment on above: Performed By: #### L IPB, CMP, HBA1C ####[facility] [address] [place], [place] [phone] PSA, Diagnosticon 06-16-2020 PSA, Diagnostic <0.03 Normal 0.00-2.59 [facility] Comment on above: Performed By: #### P SA #### [facility] Routine Lab [address] [place], [place] [phone] Vital Signs Date Time Vital Sign Value Performing Clinician Crystal garcia 08-30-2024 13:22-0400 Body temperature 98 [degF] Mita Zaidi SUPERVISOR TITLE-C Work Phone: [facility] 08-30-2024 13:22-0400 Body weight 85.72 kg Mita Zaidi SUPERVISOR TITLE-C Work Phone: [facility] 08-30-2024 13:22-0400 Diastolic blood pressure 68 mm[Hg] Mita Dejuan SUPERVISOR TITLE-C Work Phone: [facility] 08-30-2024 13:22-0400 Heart rate 82 /min Mita Dejuan SUPERVISOR TITLE-C Work Phone: [facility] 08-30-2024 13:22-0400 Respiratory rate 14 /min Mita Dejuan SUPERVISOR TITLE-C Work Phone: [facility] 08-30-2024 13:22-0400 SaO2% (BldA) [Mass fraction] 99 % Mita Dejuan SUPERVISOR TITLE-C Work Phone: [facility] 08-30-2024 13:22-0400 Systolic blood pressure 145 mm[Hg] Mita Dejuan SUPERVISOR TITLE-C Work Phone: [facility] 08-16-2024 11:00-0400 Diastolic blood pressure 50 mm[Hg] Mita Dejuan SUPERVISOR TITLE-C Work Phone: [facility] 08-16-2024 11:00-0400 Heart rate 62 /min Mita Dejuan SUPERVISOR TITLE-C Work Phone: [facility] 08-16-2024 11:00-0400 Respiratory rate 22 /min Mita Dejuan SUPERVISOR TITLE-C Work Phone: [facility] 08-16-2024 11:00-0400 SaO2% (BldA) [Mass fraction] 97 % Mita Dejuan SUPERVISOR TITLE-C Work Phone: [facility] 08-16-2024 11:00-0400 Systolic blood pressure 106 mm[Hg] Mita Dejuan SUPERVISOR TITLE-C Work Phone: [facility] 08-16-2024 09:00-0400 Body temperature 98.2 [degF] Mita Dejuan SUPERVISOR TITLE-C Work Phone: [facility] 08-16-2024 05:19-0400 Body mass index (BMI) [Ratio] 28.9 kg/m2 Mitasravan Zaidi SUPERVISOR TITLE-C Work Phone: [facility] 08-16-2024 05:19-0400 Body weight 88.8 kg Mita Deujan SUPERVISOR TITLE-C Work Phone: [facility] 08-15-2024 15:20-0400 Body height 175.26 cm Mita Dejuan SUPERVISOR TITLE-C Work Phone: [facility] 07-13-2024 14:57-0400 Body temperature 97.8 [degF] Mita Dejuan SUPERVISOR TITLE-C Work Phone: [facility] 07-13-2024 14:57-0400 Body weight 85.72 kg Mita Dejuan SUPERVISOR TITLE-C Work Phone: [facility] 07-13-2024 14:57-0400 Diastolic blood pressure 79 mm[Hg] Mita Dejuan SUPERVISOR TITLE-C Work Phone: [facility] 07-13-2024 14:57-0400 Heart rate 80 /min Mitasravan Zaidi SUPERVISOR TITLE-C Work Phone: [facility] 07-13-2024 14:57-0400 Respiratory rate 16 /min Mita Gomesgar SUPERVISOR TITLE-C Work Phone: [facility] 07-13-2024 14:57-0400 SaO2% (BldA) [Mass fraction] 97 % Mitasravan Zaidi SUPERVISOR TITLE-C Work Phone: [facility] 07-13-2024 14:57-0400 Systolic blood pressure 158 mm[Hg] Mita Dejuan SUPERVISOR TITLE-C Work Phone: [facility] 06-23-2024 09:35-0400 Body temperature 97.8 [degF] Mita Dejuan SUPERVISOR TITLE-C Work Phone: [facility] 06-23-2024 09:35-0400 Body weight 84.36 kg Mita Dejuan SUPERVISOR TITLE-C Work Phone: [facility] 06-23-2024 09:35-0400 Diastolic blood pressure 86 mm[Hg] Mita Dejuan SUPERVISOR TITLE-C Work Phone: [facility] 06-23-2024 09:35-0400 Heart rate 60 /min Mita Dejuan SUPERVISOR TITLE-C Work Phone: [facility] 06-23-2024 09:35-0400 Respiratory rate 16 /min Mita Dejuan SUPERVISOR TITLE-C Work Phone: [facility] 06-23-2024 09:35-0400 Systolic blood pressure 148 mm[Hg] Mita Dejuan SUPERVISOR TITLE-C Work Phone: [facility] 06-07-2024 09:33-0500 Body height 175.26 cm Mita Dejuan SUPERVISOR TITLE-C Work Phone: [facility] 06-07-2024 09:33-0500 Body mass index (BMI) [Ratio] 27.6 kg/m2 Mita Dejuan SUPERVISOR TITLE-C Work Phone: [facility] 06-07-2024 09:33-0500 Body weight 84.82 kg Mita Dejuan SUPERVISOR TITLE-C Work Phone: [facility] 06-07-2024 09:33-0500 Diastolic blood pressure 69 mm[Hg] Mita Dejuan SUPERVISOR TITLE-C Work Phone: [facility] 06-07-2024 09:33-0500 Heart rate 73 /min Mita Dejuan SUPERVISOR TITLE-C Work Phone: [facility] 06-07-2024 09:33-0500 Respiratory rate 18 /min Mita Dejuan SUPERVISOR TITLE-C Work Phone: [facility] 06-07-2024 09:33-0500 Systolic blood pressure 176 mm[Hg] Mita Dejuan SUPERVISOR TITLE-C Work Phone: [facility] 07-05-2023 00:40-0400 Body weight 84.14 kg SUPERVISOR TITLE-C Mita Dejuan Work Phone: [facility] 06-21-2023 09:19-0400 Body height 176.53 cm SUPERVISOR TITLE-C Mitasravan Zaidi Work Phone: [facility] 06-21-2023 09:19-0400 Body weight 84.14 kg SUPERVISOR TITLE-C Mita Zaidi Work Phone: [facility] 06-02-2023 13:45-0500 Body height 176.[address] Yash Estrada Work Phone: 1(458)445-772824 [place] [address] 06-02-2023 13:45-0500 Body mass index (BMI) [Ratio] 26.4 kg/m2 Dr. Yash Estrada Work Phone: 7(176)968-933124 [place] [address] 06-02-2023 13:45-0500 Body weight 82.[address] Yash Estrada Work Phone: 2(479)340-350724 [place] [address] 06-02-2023 13:45-0500 Diastolic blood pressure 70 mm[Hg] Dr. Yash Estrada Work Phone: [facility] 06-02-2023 13:45-0500 Heart rate 69 /min Dr. Yash Estrada Work Phone: 8(516)325-761224 [place] [address] 06-02-2023 13:45-0500 Respiratory rate 18 /min Dr. Yash Estrada Work Phone: 1(999)507-358024 [place] [address] 06-02-2023 13:45-0500 Systolic blood pressure 145 mm[Hg] Dr. Yash Estrada Work Phone: [facility] 05-24-2023 10:39-0500 Body weight 84.[address] Yash Estrada Work Phone: 7(833)[phone] [place] [address] 05-19-2023 09:49-0500 Body temperature 97.2 [degF] Dr. Yash Estrada Work Phone: [facility] 05-19-2023 09:49-0500 Diastolic blood pressure 78 mm[Hg] Dr. Yash Estrada Work Phone: [facility] 05-19-2023 09:49-0500 Heart rate 74 /min Dr. Yash Estrada Work Phone: [facility] 05-19-2023 09:49-0500 Respiratory rate 14 /min Dr. Yash Estrada Work Phone: [facility] 05-19-2023 09:49-0500 SaO2% (BldA) [Mass fraction] 99 % Dr. Yash Estrada Work Phone: [facility] 05-19-2023 09:49-0500 Systolic blood pressure 138 mm[Hg] Dr. Yash Estrada Work Phone: [facility] 05-18-2023 13:36-0500 Body height 175.[address] Yash Estrada Work Phone: [facility] 05-18-2023 13:36-0500 Body mass index (BMI) [Ratio] 26.5 kg/m2 Dr. Yash Estrada Work Phone: [facility] 05-18-2023 13:36-0500 Body weight 81.[address] Yash Estrada Work Phone: [facility] 05-18-2023 12:32-0500 Body temperature 97.6 [degF] DO Love Keo Work Phone: [facility] 05-18-2023 12:32-0500 Diastolic blood pressure 76 mm[Hg] DO Love Keo Work Phone: [facility] 05-18-2023 12:32-0500 Heart rate 89 /min DO Love Keo Work Phone: [facility] 05-18-2023 12:32-0500 Respiratory rate 16 /min DO Love Keo Work Phone: [facility] 05-18-2023 12:32-0500 SaO2% (BldA) [Mass fraction] 99 % DO Love Keo Work Phone: [facility] 05-18-2023 12:32-0500 Systolic blood pressure 130 mm[Hg] DO Love Keo Work Phone: [facility] 05-18-2023 10:22-0500 Inhaled oxygen flow rate 2 L/min DO Love Keo Work Phone: [facility] 05-18-2023 09:58-0500 Body height 175.26 cm DO Love Keo Work Phone: [facility] 05-18-2023 09:58-0500 Body mass index (BMI) [Ratio] 27.1 kg/m2 DO Love Keo Work Phone: [facility] 05-18-2023 09:58-0500 Body weight 83.46 kg DO Love Keo Work Phone: [facility] 04-26-2023 14:56-0500 Body height 176.53 cm DO Love Keo Work Phone: [facility] 04-26-2023 14:50-0500 Body mass index (BMI) [Ratio] 27.1 kg/m2 DO Love Keo Work Phone: [facility] 04-26-2023 14:50-0500 Body weight 83.46 kg DO Love Keo Work Phone: [facility] 04-26-2023 14:50-0500 Diastolic blood pressure 64 mm[Hg] DO Love Keo Work Phone: [facility] 04-26-2023 14:50-0500 Heart rate 79 /min DO Love Keo Work Phone: [facility] 04-26-2023 14:50-0500 Respiratory rate 18 /min DO Love Keo Work Phone: [facility] 04-26-2023 14:50-0500 SaO2% (BldA) [Mass fraction] 96 % DO Love Keo Work Phone: [facility] 04-26-2023 14:50-0500 Systolic blood pressure 125 mm[Hg] DO Love Keo Work Phone: [facility] 04-23-2023 10:40-0500 Body mass index (BMI) [Ratio] 25.9 kg/m2 DO Love Keo Work Phone: [facility] 04-23-2023 10:18-0500 Diastolic blood pressure 62 mm[Hg] DO Love Keo Work Phone: [facility] 04-23-2023 10:18-0500 Heart rate 72 /min DO Love Keo Work Phone: [facility] 04-23-2023 10:18-0500 SaO2% (BldA) [Mass fraction] 98 % DO Love Keo Work Phone: [facility] 04-23-2023 10:18-0500 Systolic blood pressure 130 mm[Hg] DO Love Keo Work Phone: [facility] 04-23-2023 10:04-0500 Body weight 80.73 kg DO Love Keo Work Phone: [facility] 04-13-2023 08:00-0500 Body temperature 98 [degF] DO Love Keo Work Phone: [facility] 04-13-2023 08:00-0500 Diastolic blood pressure 62 mm[Hg] DO Love Keo Work Phone: [facility] 04-13-2023 08:00-0500 Heart rate 65 /min DO Love Keo Work Phone: [facility] 04-13-2023 08:00-0500 Respiratory rate 17 /min DO Love Keo Work Phone: [facility] 04-13-2023 08:00-0500 SaO2% (BldA) [Mass fraction] 98 % DO Love Keo Work Phone: [facility] 04-13-2023 08:00-0500 Systolic blood pressure 123 mm[Hg] DO Love Keo Work Phone: [facility] 04-13-2023 05:28-0500 Body mass index (BMI) [Ratio] 25.7 kg/m2 DO Love Keo Work Phone: [facility] 04-13-2023 05:28-0500 Body weight 80.2 kg DO Love Keo Work Phone: [facility] 04-12-2023 06:43-0500 Body mass index (BMI) [Ratio] 25.7 kg/m2 DO Love Keo Work Phone: [facility] 04-12-2023 06:43-0500 Body weight 80.4 kg DO Love Keo Work Phone: [facility] 04-12-2023 06:00-0500 Body temperature 97.3 [degF] DO Love Keo Work Phone: [facility] 04-12-2023 06:00-0500 Diastolic blood pressure 60 mm[Hg] DO Love Keo Work Phone: [facility] 04-12-2023 06:00-0500 Heart rate 73 /min DO Love Keo Work Phone: [facility] 04-12-2023 06:00-0500 Respiratory rate 16 /min DO Love Keo Work Phone: [facility] 04-12-2023 06:00-0500 SaO2% (BldA) [Mass fraction] 96 % DO Love Keo Work Phone: [facility] 04-12-2023 06:00-0500 Systolic blood pressure 150 mm[Hg] DO Love Keo Work Phone: [facility] 04-12-2023 00:00-0500 Inhaled oxygen flow rate 2 L/min DO Love Keo Work Phone: [facility] 04-11-2023 11:12-0500 Body height 176.53 cm DO Love Keo Work Phone: [facility] 04-10-2023 13:00-0500 Body temperature 97.9 [degF] DO Love Keo Work Phone: [facility] 04-10-2023 13:00-0500 Diastolic blood pressure 78 mm[Hg] DO Love Keo Work Phone: [facility] 04-10-2023 13:00-0500 Heart rate 70 /min DO Love Keo Work Phone: [facility] 04-10-2023 13:00-0500 Respiratory rate 16 /min DO Love Keo Work Phone: [facility] 04-10-2023 13:00-0500 SaO2% (BldA) [Mass fraction] 99 % DO Love Keo Work Phone: [facility] 04-10-2023 13:00-0500 Systolic blood pressure 144 mm[Hg] DO Love Keo Work Phone: [facility] 04-10-2023 08:48-0500 Body mass index (BMI) [Ratio] 27.1 kg/m2 DO Love Keo Work Phone: [facility] 04-10-2023 08:48-0500 Body weight 83.4 kg DO Love Keo Work Phone: [facility] 04-10-2023 08:44-0500 Body height 175.26 cm DO Love Keo Work Phone: [facility] 02-16-2023 14:20-0500 Body temperature 97.4 [degF] DO Love Keo Work Phone: [facility] 02-16-2023 14:20-0500 Diastolic blood pressure 68 mm[Hg] DO Love Keo Work Phone: [facility] 02-16-2023 14:20-0500 Heart rate 68 /min DO Love Keo Work Phone: [facility] 02-16-2023 14:20-0500 Respiratory rate 18 /min DO Love Keo Work Phone: [facility] 02-16-2023 14:20-0500 SaO2% (BldA) [Mass fraction] 99 % DO Love Keo Work Phone: [facility] 02-16-2023 14:20-0500 Systolic blood pressure 120 mm[Hg] DO Love Keo Work Phone: [facility] 02-16-2023 12:57-0500 Body height 175.26 cm DO Love Keo Work Phone: [facility] 02-16-2023 12:57-0500 Body mass index (BMI) [Ratio] 25.9 kg/m2 DO Love Keo Work Phone: [facility] 02-16-2023 12:57-0500 Body weight 79.9 kg DO Love Keo Work Phone: [facility] 01-18-2023 08:43-0400 Body mass index (BMI) [Ratio] 26.1 kg/m2 DO Love Keo Work Phone: [facility] 01-18-2023 08:43-0400 Body weight 80.28 kg DO Love Keo Work Phone: [facility] 12-08-2022 08:57-0400 Body temperature 98.1 [degF] DO Love Keo Work Phone: [facility] 12-08-2022 08:57-0400 Diastolic blood pressure 68 mm[Hg] DO Love Keo Work Phone: [facility] 12-08-2022 08:57-0400 Heart rate 80 /min DO Love Keo Work Phone: [facility] 12-08-2022 08:57-0400 Respiratory rate 18 /min DO Love Penaer Work Phone: [facility] 12-08-2022 08:57-0400 SaO2% (BldA) [Mass fraction] 94 % DO Love Penaer Work Phone: [facility] 12-08-2022 08:57-0400 Systolic blood pressure 146 mm[Hg] DO Love Penaer Work Phone: [facility] 12-08-2022 01:05-0400 Inhaled oxygen flow rate 2 L/min DO Love Penaer Work Phone: [facility] 12-07-2022 09:14-0400 Body height 176.53 cm DO Love Crowley Work Phone: [facility] 12-07-2022 09:14-0400 Body mass index (BMI) [Ratio] 25.4 kg/m2 DO Love Penaer Work Phone: [facility] 12-07-2022 09:14-0400 Body weight 79.2 kg DO Love Crowley Work Phone: [facility] 12-06-2022 20:54-0400 Body temperature 96.8 [degF] [facility] 12-06-2022 20:54-0400 Diastolic blood pressure 69 mm[Hg] [facility] 12-06-2022 20:54-0400 Heart rate 67 /min [facility] 12-06-2022 20:54-0400 Respiratory rate 18 /min [facility] 12-06-2022 20:54-0400 SaO2% (BldA) [Mass fraction] 94 % [facility] 12-06-2022 20:54-0400 Systolic blood pressure 163 mm[Hg] [facility] 12-06-2022 15:44-0400 Body height 175.26 cm [facility] 12-06-2022 15:44-0400 Body mass index (BMI) [Ratio] 27.2 kg/m2 [facility] 12-06-2022 15:44-0400 Body weight 83.59 kg [facility] 11-30-2022 20:12-0400 Diastolic blood pressure 75 mm[Hg] [facility] 11-30-2022 20:12-0400 Heart rate 80 /min [facility] 11-30-2022 20:12-0400 Respiratory rate 18 /min [facility] 11-30-2022 20:12-0400 SaO2% (BldA) [Mass fraction] 97 % [facility] 11-30-2022 20:12-0400 Systolic blood pressure 152 mm[Hg] [facility] 11-30-2022 19:11-0400 Body height 175.26 cm [facility] 11-30-2022 19:11-0400 Body mass index (BMI) [Ratio] 27.3 kg/m2 [facility] 11-30-2022 19:11-0400 Body temperature 98 [degF] [facility] 11-30-2022 [id number] Body weight 84.2 kg [facility] Encounters Encounter Date Encounter Type Care Provider Facility Start: 09-15-2024 [facility] Facility:[facility] Start: 08-30-2024 End: 08-30-2024 Patient encounter procedure Pauly ENGEL -[facility] Work Phone: Start: 08-30-2024 End: 08-30-2024 [facility] SUPERVISOR TITLE-C Work Phone: [facility] Work Phone: Start: 08-24-2024 Encounter for other preprocedural examination Pauly Mathews [facility] Start: 08-16-2024 Non-patient / Non-visit Pauly ENGEL -[facility] Start: 08-15-2024 ambulatory [facility] Facility:[facility] Start: 08-15-2024 End: 08-16-2024 Evaluation and management of inpatient Dr. Senthil Noel MD -Intensive Care Unit Work Phone: Start: 08-15-2024 [facility] Start: 08-15-2024 Non-patient / Non-visit Dr. Senthil mayorga MD -[facility] Start: 07-13-2024 End: 07-13-[address] Senthil Noel MD -[facility] Work Phone: Start: 07-13-2024 End: 07-13-2024 ambulatory Mita Dejuan Facility:[facility] Start: 07-06-2024 End: 07-06-2024 ambulatory [facility] SUPERVISOR TITLE-C Work Phone: [facility] Work Phone: Start: 07-06-2024 End: 07-06-2024 Patient encounter procedure [facility] Work Phone: Start: 07-06-2024 End: 07-06-2024 ambulatory [facility] Facility:[facility] Start: 06-26-2024 ambulatory [facility] Facility:[facility] Start: 06-23-2024 End: 06-23-2024 Patient encounter procedure Pauly ENGEL -[facility] Work Phone: Start: 06-23-2024 End: 06-23-2024 ambulatory [facility] Facility:[facility] Start: 06-08-2024 Non-patient / Non-visit Dr. Senthil mayorga MD -[facility] Start: 06-08-2024 End: 06-08-2024 ambulatory [facility] SUPERVISOR TITLE-C Work Phone: [facility] Work Phone: Start: 06-08-2024 End: 06-08-2024 Patient encounter procedure Jose Manuel Rocha NP-C -[facility] Work Phone: Start: 06-07-2024 Encounter for preprocedural cardiovascular examination Jose Manuel Rocha NP [facility] Start: 06-07-2024 End: 06-07-2024 Patient encounter procedure Jose Manuel Rocha NP-C -[facility] Work Phone: Start: 06-07-2024 End: 06-07-2024 Patient encounter status Jose Manuel Rocha SUPERVISOR TITLE-C [facility] Comment on above: Cervical surgery. No t scheduled yet Start: 06-07-2024 End: 06-08-2024 ambulatory [facility] Facility:[facility] Start: 05-04-2024 End: 05-04-[address] Siria Velazquez DO -Laboratory, Phy Office 3rd Flr Start: 05-04-2024 End: 05-04-2024 ambulatory Siria Velazquez Facility:[facility] Start: 04-20-2024 End: 04-20-[address] Yousif Bettencourt MD -[facility] Work Phone: Start: 04-20-2024 End: 04-20-2024 ambulatory Mita Dejuan Facility:[facility] Start: 04-18-2024 End: 04-18-2024 Patient encounter procedure Mita Dejuan SUPERVISOR TITLE-C -Laboratory Work Phone: Start: 04-17-2024 End: 04-18-2024 ambulatory Mitasravan Zaidi SUPERVISOR TITLE-C Work Phone: [facility] Work Phone: Start: 04-17-2024 End: 04-17-2024 Patient encounter procedure Mita Zaidi SUPERVISOR TITLE-C -Laboratory, Specimen Work Phone: Start: 04-17-2024 End: 04-17-2024 ambulatory Mita Dejuan Facility:[facility] Start: 02-25-2024 End: 02-25-2024 Patient encounter procedure Mita Zaidi SUPERVISOR TITLE-C -Laboratory, Specimen Work Phone: Start: 02-25-2024 End: 02-25-2024 ambulatory Mita Dejuan Facility:[facility] Start: 02-04-2024 End: 02-04-2024 Emergency department patient visit [facility] Facility:[facility] Start: 12-31-2023 End: 12-31-2023 ambulatory [facility] Facility:[facility] Start: 12-30-2023 End: 12-30-2023 ambulatory Heladio Archibald Facility:[facility] Start: 11-29-2023 End: 11-29-2023 ambulatory [facility] Facility:[facility] Start: 11-25-2023 End: 11-25-2023 ambulatory Lxami Solsberry Facility:[facility] Start: 10-28-2023 End: 10-28-2023 ambulatory Canton Dejuan Facility:[facility] Start: 10-14-2023 End: 10-14-2023 ambulatory Mita Dejuan Facility:[facility] Start: 10-13-2023 ambulatory Andrew Calle MD Work Phone: [facility] Start: 10-13-2023 Patient encounter procedure Andrew Calle MD Work Phone: [facility] Comment on above: colonoscopy/office v isit due/quality team calling Start: 08-02-2023 End: 08-02-2023 ambulatory SUPERVISOR TITLE-C Mita Zaidi Work Phone: [facility] Work Phone: Start: 08-02-2023 End: 08-02-2023 Patient encounter procedure SUPERVISOR TITLE-C Mita Zaidi Work Phone: [facility]-Radiology, [facility] Work Phone: Start: 07-21-2023 End: 08-03-2023 ambulatory SUPERVISOR TITLE-C Mita Zaidi Work Phone: [facility] Work Phone: Start: 07-21-2023 End: 08-03-2023 Discharged Recurring SUPERVISOR TITLE-C Mita Zaidi Work Phone: [facility]-Cardiac Rehab Work Phone: Start: 07-21-2023 Registered Recurring SUPERVISOR TITLE-C Cassie Zaidi Work Phone: [facility]-Cardiac Rehab Work Phone: Start: 07-20-2023 End: 07-20-2023 ambulatory SUPERVISOR TITLE-C Mita Zaidi Work Phone: [facility] Work Phone: Start: 07-20-2023 End: 07-20-2023 Patient encounter procedure SUPERVISOR TITLE-C Mita Zaidi Work Phone: [facility]-Cat Scan, [facility] Work Phone: Start: 07-02-2023 End: 07-04-2023 ambulatory SUPERVISOR TITLE-C Mita Zaidi Work Phone: [facility] Work Phone: Start: 07-02-2023 End: 07-04-2023 Discharged Recurring SUPERVISOR TITLE-C Mita Zaidi Work Phone: [facility]-Cardiac Rehab Work Phone: Start: 06-30-2023 Registered Recurring SUPERVISOR TITLE-C Cassie Zaidi Work Phone: [facility]-Cardiac Rehab Work Phone: Start: 06-24-2023 End: 06-24-2023 ambulatory SUPERVISOR TITLE-C Mita Zaidi Work Phone: [facility] Work Phone: Start: 06-24-2023 End: 06-24-2023 Patient encounter procedure SUPERVISOR TITLE-C Mita Zaidi Work Phone: [facility]-Laboratory Work Phone: Start: 06-21-2023 Registered Recurring SUPERVISOR TITLE-C Cassie Zaidi Work Phone: [facility]-Cardiac Rehab Work Phone: Start: 06-18-2023 End: 06-18-2023 ambulatory SUPERVISOR TITLE-C Mita Zaidi Work Phone: [facility] Work Phone: Start: 06-18-2023 End: 06-18-2023 Patient encounter procedure SUPERVISOR TITLE-C Mita Zaidi Work Phone: [facility]-Laboratory Work Phone: Start: 06-02-2023 End: 06-02-[address] Yash Estrada Work Phone: [facility] Work Phone: Start: 06-02-2023 End: 06-03-[address] Yash Estrada Work Phone: [facility] Work Phone: Start: 06-02-2023 End: 06-03-[address] Yash Estrada Work Phone: [facility]-Cardiac Rehab Work Phone: Start: 05-19-2023 Non-patient / Non-visit Dr. Ra dorantes Friend Work Phone: [facility] Work Phone: Start: 05-19-2023 Non-patient / Non-visit Dr. Ra jose e Estrada Work Phone: [facility] Start: 05-18-2023 Non-patient / Non-visit Dr. Ra jose e Estrada Work Phone: [facility] Work Phone: Start: 05-18-2023 Non-patient / Non-visit Dr. Ra jose e Estrada Work Phone: [facility] Start: 05-18-2023 End: 05-19-2023 Evaluation and management of inpatient DO Love Crowley Work Phone: [facility]-Progressive Care Unit Work Phone: Start: 05-18-2023 observation encounter DO Jack Crowley Work Phone: [facility] Work Phone: Start: 05-17-2023 Registered Recurring DO Sussy Crowley Work Phone: [facility]-Cardiac Rehab Work Phone: Start: 05-05-2023 End: 05-05-2023 ambulatory DO Love Crowley Work Phone: [facility] Work Phone: Start: 05-05-2023 End: 05-05-2023 Discharged Recurring DO Love Pringlenger Work Phone: [facility]-Cardiac Rehab Work Phone: Start: 04-26-2023 End: 04-26-2023 Patient encounter procedure DO Love Pringlenger Work Phone: [facility] Work Phone: Start: 04-26-2023 Registered Recurring DO Sussy n Keo Work Phone: [facility]-Cardiac Rehab Work Phone: Start: 04-23-2023 End: 04-23-2023 ambulatory DO Love M Keo Work Phone: [facility] Work Phone: Start: 04-23-2023 End: 04-23-2023 Patient encounter procedure DO Love Pringlenger Work Phone: [facility]-Cardiac Rehab Work Phone: Start: 04-22-2023 End: 04-22-2023 ambulatory DO Love M Keo Work Phone: [facility] Work Phone: Start: 04-22-2023 End: 04-22-2023 Patient encounter procedure DO Love Pringlenger Work Phone: [facility]-Laboratory Work Phone: Start: 04-14-2023 End: 04-14-2023 ambulatory DO Love M Keo Work Phone: [facility] Work Phone: Start: 04-14-2023 End: 04-14-2023 Patient encounter procedure [facility] Start: 04-13-2023 Non-patient / Non-visit DO Evette caballero Keo Work Phone: [facility] Work Phone: Start: 04-12-2023 Non-patient / Non-visit DO Kri stin Keo Work Phone: [facility] Start: 04-12-2023 Non-patient / Non-visit DO Kri stin Keo Work Phone: [facility] Start: 04-12-2023 Non-patient / Non-visit DO Kri stin Keo Work Phone: [facility] Work Phone: Start: 04-11-2023 Non-patient / Non-visit DO Kri stin Keo Work Phone: [facility] Start: 04-11-2023 Non-patient / Non-visit DO Kri stin Keo Work Phone: [facility] Work Phone: Start: 04-10-2023 Non-patient / Non-visit DO Kri stin Keo Work Phone: [facility] Work Phone: Start: 04-10-2023 Non-patient / Non-visit DO Kri stin Keo Work Phone: [facility] Start: 04-10-2023 End: 04-13-2023 Evaluation and management of inpatient DO Love Keo Work Phone: [facility]-Intensive Care Unit Work Phone: Start: 04-10-2023 End: 04-10-2023 Emergency department patient visit DO Love Keo Work Phone: [facility]-Emergency Department Work Phone: Start: 04-06-2023 End: 04-06-2023 ambulatory DO Love M Keo Work Phone: [facility] Work Phone: Start: 04-06-2023 End: 04-06-2023 Patient encounter procedure DO Love Penaer Work Phone: [facility]-Laboratory Work Phone: Start: 03-15-2023 End: 03-15-2023 ambulatory DO Love Crowley Work Phone: [facility] Work Phone: Start: 03-15-2023 End: 03-15-2023 Patient encounter procedure DO Love Penaer Work Phone: [facility]-Laboratory Work Phone: Start: 02-16-2023 Non-patient / Non-visit DO Evette Penaer Work Phone: [facility] Start: 02-16-2023 End: 02-16-2023 Admission to same day surgery center DO Love Penaer Work Phone: [facility]-Endoscopy Work Phone: Start: 02-16-2023 End: 02-16-2023 ambulatory DO Love Crowley Work Phone: [facility] Work Phone: Start: 01-18-2023 Non-patient / Non-visit DO Evette Crowley Work Phone: [facility] Work Phone: Start: 12-22-2022 End: 12-22-2022 Patient encounter procedure DO Love Pringlenger Work Phone: [facility] Work Phone: Start: 12-17-2022 End: 12-17-2022 ambulatory DO Love M Keo Work Phone: [facility] Work Phone: Start: 12-17-2022 End: 12-17-2022 Patient encounter procedure DO Love Pringlenger Work Phone: [facility]-Laboratory Work Phone: Start: 12-08-2022 Non-patient / Non-visit DO Evette Pringlenger Work Phone: [facility] Start: 12-07-2022 Non-patient / Non-visit DO Krdanielito stin Keo Work Phone: [facility] Work Phone: Start: 12-07-2022 Non-patient / Non-visit DO Evette mantillan Keo Work Phone: [facility] Start: 12-06-2022 Non-patient / Non-visit DO Krdanielito mantillan Keo Work Phone: [facility] Work Phone: Start: 12-06-2022 End: 12-08-2022 Evaluation and management of inpatient [facility]-Medical Surgical 3 Work Phone: Start: 11-30-2022 End: 11-30-2022 Emergency department patient visit [facility]-Emergency Department Work Phone: Start: 09-15-2022 End: 09-15-[address] [facility] Work Phone: Start: 09-15-2022 End: 09-15-2022 Patient encounter procedure [facility]-Laboratory Start: 06-16-2022 End: 06-16-[address] [facility] Work Phone: Start: 06-16-2022 End: 06-16-2022 Patient encounter procedure [facility]-Laboratory Start: 03-17-2022 End: 03-17-[address] [facility] Work Phone: Start: 03-17-2022 End: 03-17-2022 Patient encounter procedure [facility]-Laboratory Start: 12-16-2021 End: 12-16-[address] [facility] Work Phone: Start: 12-16-2021 End: 12-16-[address] [facility] Start: 11-14-2021 End: 11-14-2021 Patient encounter procedure [facility] Start: 10-30-2021 End: 10-30-2021 [facility] Start: 10-20-2021 End: 10-20-2021 [facility] Start: 10-18-2021 End: 10-18-2021 [facility] Start: 09-09-2021 Refill Andrew Calle MD Work Phone: [facility] Comment on above: Refill Request Start: 08-27-2021 Telephone encounter Jovon Calle MD Work Phone: [facility] Comment on above: Faxed to [facility] Start: 05-22-2021 End: 05-22-2021 Discharged Recurring [facility]-Massage Therapy, [facility] Start: 05-22-2021 Registered Recurring [facility]-Massage Therapy, [facility] Procedures Date Procedure Procedure Detail Performing Clinician Start: 08-15-2024 Coagulation time, activated Mita Zaidi SUPERVISOR TITLE-C Work Phone: Start: 07-06-2024 CT angiography of head and neck Mita Zaidi SUPERVISOR TITLE-C Work Phone: Start: 06-07-2024 Evaluation of diagnostic study results Mita Zaidi SUPERVISOR TITLE-C Work Phone: Start: 05-04-2024 Microalbuminuria measurement Mita Zaidi SUPERVISOR TITLE-C Work Phone: Start: 05-04-2024 Urine microalbumin/creatinine ratio measurement Mita Zaidi SUPERVISOR TITLE-C Work Phone: Start: 04-18-2024 Measurement of renal function Mita Zaidi SUPERVISOR TITLE-C Work Phone: Comment on above: GFR Calc Start: 04-17-2024 Urine culture Mita Zaidi SUPERVISOR TITLE-C Work Phone: Start: 02-25-2024 Urine culture Mita Zaidi SUPERVISOR TITLE-C Work Phone: Start: 08-02-2023 Radiography of esophagus SUPERVISOR TITLE-C Mita Renner ar Work Phone: Start: 07-20-2023 CT of soft tissues of neck with contrast SUPERVISOR TITLE-C Mita Zaidi Work Phone: Start: 05-18-2023 Plain chest X-ray DO Love Crowley Work Phone: Start: 04-10-2023 Plain chest X-ray DO Love Crowley Work Phone: Start: 02-16-2023 Colonoscopy DO Love Crowley Work Phone: Start: 12-07-2022 Cholangiogram DO Love Crowley Work Phone: Start: 12-07-2022 Fluoroscopic guidance DO Love Crowley Work Phone: Start: 12-07-2022 Total cholecystectomy and exploration of common bile duct DO Love Crowley Work Phone: Start: 12-06-2022 US scan of gallbladder Start: 12-06-2022 Computed tomography of abdomen and pelvis with intravenous contrast Start: 11-30-2022 Plain chest X-ray Start: 06-21-2020 Adult depression screening assessment Andrew Calle MD Work Phone: Start: 11-20-2011 Colonoscopy Andrew Calle MD Work Phone: History of cholecystectomy S/P laparoscopic cholecystectomy DO Love Crowley Work Phone: Comment on above: 12/26. Patient presents for his first pos toperative visit and has recovered well. He has no residual discomfort and believes that prior presentations of abdominal discomfort can be attributed back to this issue. I would agree with his assessment as his pathology demonstrated some element of chronic cholecystitis along with an acute exacerbation. This pathology was shared with patient along with his cholangiogram. I am pleased with his wound healing to date on exam. At this time I am not sure how connected his reports on altered bowel habits are to his recent operation. Generally post cholecystectomy altered bowel movements are looser. I have recommended that he begin probiotic yogurt to try to reestablish his normal enteric nallely given the use of antibiotics during the perioperative phase. Plan of Treatment Date Care Activity Detail Author Start: 08-16-2024 [facility] Start: 08-16-2024 Patient discharge [facility] Start: 08-16-2024 Inhalation therapy procedure [facility] Start: 08-15-2024 Following clinical p athway protocol [facility] Start: 08-15-2024 Ambulation without limitation [facility] Start: 08-15-2024 Assessment of risk o f venous thromboembolism [facility] Start: 08-15-2024 Bedrest [facility] Start: 08-15-2024 Care regimes management [facility] Start: 08-15-2024 Catheterization of vein [facility] Start: 08-15-2024 Continuous pulse oximetry [facility] Start: 08-15-2024 Deep breathing and coughing exercises [facility] Start: 08-15-2024 Incentive spirometry [facility] Start: 08-15-2024 Insertion of cathete r into peripheral vein [facility] Start: 08-15-2024 Measuring intake and output [facility] Start: 08-15-2024 Notification of physician [facility] Start: 08-15-2024 Oxygen therapy [facility] Start: 08-15-2024 Patient referral to dietitian [facility] Start: 08-15-2024 Providing care accor ding to standard [facility] Start: 08-15-2024 Provision of activit y privileges [facility] Start: 08-15-2024 Pulse taking [facility] Start: 08-15-2024 Referral to occupati onal therapist [facility] Start: 08-15-2024 Referral to service [facility] Start: 08-15-2024 Taking patient vital signs [facility] Start: 08-15-2024 Vital signs measurements [facility] Start: 08-15-2024 End: 08-15-[address] [facility] Start: 08-15-2024 End: 08-15-2024 Elevation of head of bed [facility] Start: 08-15-2024 Verification routine [facility] Start: 08-15-2024 Admission procedure [facility] Start: 08-15-2024 Insertion of carotid artery stent Carotidstent (Right) [facility] Start: 08-15-2024 Maintenance of invas wellington device [facility] Start: 12-05-2023 Influenza vaccination Influenza Vacc ine (#1) [facility] Start: 05-19-2023 Patient discharge [facility] Start: 05-18-2023 Following clinical p athway protocol [facility] Start: 05-18-2023 Ambulation without limitation [facility] Start: 05-18-2023 Assessment of risk o f venous thromboembolism [facility] Start: 05-18-2023 Catheterization of vein [facility] Start: 05-18-2023 Insertion of cathete r into peripheral vein [facility] Start: 05-18-2023 Measuring intake and output [facility] Start: 05-18-2023 Providing care accor ding to standard [facility] Start: 05-18-2023 Referral to sebd teacher [facility] Start: 05-18-2023 [facility] Start: 05-18-2023 Admission procedure [facility] Start: 05-18-2023 Troponin I measurement [facility] Start: 05-18-2023 Hospital admission, emergency, from emergency room, medical nature [facility] Start: 05-18-2023 [facility] Start: 04-14-2023 Blood chemistry [facility] Start: 04-13-2023 Patient discharge [facility] Start: 04-13-2023 Blood chemistry [facility] Start: 04-12-2023 Patient referral [facility] Work Phone: Start: 04-11-2023 Following clinical p athway protocol [facility] Start: 04-11-2023 Care planning and pr oblem solving actions [facility] Start: 04-10-2023 Continuous positive airway pressure ventilation treatment [facility] Start: 04-10-2023 Assessment of risk o f venous thromboembolism [facility] Start: 04-10-2023 Care regimes management [facility] Start: 04-10-2023 Continuous pulse oximetry [facility] Start: 04-10-2023 Insertion of cathete r into peripheral vein [facility] Start: 04-10-2023 Measuring intake and output [facility] Start: 04-10-2023 Notification of physician [facility] Start: 04-10-2023 Providing care accor ding to standard [facility] Start: 04-10-2023 Verification routine [facility] Start: 04-10-2023 Vital signs measurements [facility] Start: 04-10-2023 [facility] Start: 04-10-2023 Ambulation without limitation [facility] Start: 04-10-2023 Cardiac monitoring [facility] Start: 04-10-2023 Cardiac rehabilitati on - phase [address] [facility] Start: 04-10-2023 Cardiac rehabilitati on - phase [address] [facility] Start: 04-10-2023 Notification of physician [facility] Start: 04-10-2023 Oxygen therapy [facility] Start: 04-10-2023 Patient discharge [facility] Start: 04-10-2023 Provision of activit y privileges [facility] Start: 04-10-2023 Taking patient vital signs [facility] Start: 04-10-2023 Vascular disease ris k assessment [facility] Start: 04-10-2023 Vital signs measurements [facility] Start: 04-10-2023 End: 04-10-[address] [facility] Start: 04-10-2023 Admission procedure [facility] Start: 04-10-2023 Catheterization of l eft heart [facility] Start: 04-10-2023 [facility] Start: 04-10-2023 Patient referral to dietitian [facility] Start: 04-05-2023 Advance Directive Discussion Advance Directive Discussion [facility] Start: 04-05-2023 Behavioral Health Screening Behavioral Health Screening [facility] Start: 02-16-2023 Patient discharge [facility] Start: 12-08-2022 Patient discharge [facility] Start: 12-07-2022 Oxygen therapy [facility] Start: 12-07-2022 Care planning and pr oblem solving actions [facility] Start: 12-07-2022 [facility] Start: 12-07-2022 [facility] Start: 12-06-2022 Application of intermittent pneumatic compression device [facility] Start: 12-06-2022 Following clinical p athway protocol [facility] Start: 12-06-2022 Care planning and pr oblem solving actions [facility] Start: 12-06-2022 Care regimes management [facility] Start: 12-06-2022 Notification of physician [facility] Start: 12-06-2022 Incentive spirometry [facility] Start: 12-06-2022 End: 12-06-[address] [facility] Start: 12-06-2022 Admission procedure [facility] Start: 12-04-2022 Covid-19 Vaccine ( season) Covid-19 Vaccine ( season) [facility] Start: 12-01-2022 [facility] Start: 11-30-2022 [facility] Start: 04-10-2022 Glaucoma screening Dilated Retinal E xam [facility] Start: 04-10-2022 Hepatitis C antibody , confirmatory test DILATED RETINAL EXAM [facility] Start: 03-26-2022 3 comp foot exam completed DIABETIC FOOT EXAM [facility] Start: 03-26-2022 ANNUAL PCP TEAM HEEL ATTACHER WOOD 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 ANNUAL PCP TEAM CHRONIC DISEASE VISIT [facility] Start: 03-26-2022 COVID-19 VACCINE (#1) COVID-19 VACCI NE (#1) [facility] Comment on above: Postponed from 03/06 (Declined at this time) Start: 03-26-2022 Diabetic foot examination Diabetic F oot Exam [facility] Start: 03-22-2022 SERUM CREATININE SERUM CREATININE Cl [facility] Start: 12-04-2021 Influenza vaccination INFLUENZ A (Season Ended) [facility] Start: 11-19-2021 Colonoscopy COLONOSCOPY [facility] Start: 11-19-2021 COLORECTAL CANCER SCREENING COLORECTAL CANCER SCREENING [facility] Start: 11-19-2021 Screening for malign ant neoplasm of colon [facility] Start: 09-21-2021 Hepatitis B surface antibody level LDL CHOLESTEROL [facility] Start: 09-20-2021 Hemoglobin A1c measurement HbA1C [facility] Start: 09-20-2021 Hemoglobin A1c/Hemoglobin.total in Blood HBA1C [facility] Start: 09-01-2021 Urine microalbumin profile [facility] Start: 07-06-2021 HEMOGLOBIN/HEMATOCRIT HEMOGLOBIN/HEM ATOCRIT [facility] Start: 06-21-2021 Adult depression scr eening assessment DEPRESSION SCREENING [facility] Start: 06-15-2021 Hepatitis B screening URINE ALBUMIN:CREATININE RATIO [facility] Start: 04-05-2021 ADVANCE DIRECTIVE DISCUSSION ADVANCE DIRECTIVE DISCUSSION [facility] Start: 10-02-2020 BP CONTROLLED (<130/80) BP CONTROLLE D (<130/80) [facility] Start: 2009 RSV Vaccine (1 - 1-d ose 60+ series) RSV Vaccine (1 - 1-dose 60+ series) [facility] Start: 1999 SHINGRIX VACCINE (1 of 2) ARENAS GRIX VACCINE (1 of 2) [facility] Start: 1994 COLOGUARD (FIT-DNA) COLOGUARD (FIT-D NA) [facility] Start: [address] COLONOGRAPHY [facility] Start: 1994 FECAL OCCULT BLOOD FECAL OCCULT BLOO D [facility] Start: 1994 Screening for malign ant neoplasm of colon [facility] Start: 1994 SIGMOIDOSCOPY SIGMOIDOSCOPY [facility] Start: 1955 Pneumococcal Vaccine : 65+ (1 of 2 - PCV) Pneumococcal Vaccine: 65+ (1 of 2 - PCV) [facility] Start: 1955 PNEUMOCOCCAL: 65+ (1 - PCV) PNEUMOCOCCAL: 65+ (1 - PCV) [facility] Alanine aminotransfe rase [Enzymatic activity/volume] in Serum or Plasma [facility] Albumin [Mass/volume ] in Serum or Plasma [facility] Alkaline phosphatase [Enzymatic activity/volume] in Serum or Plasma [facility] Anion gap measurement [facility] Anion gap measurement [facility] Anion gap measurement [facility] Aspartate aminotrans ferase [Enzymatic activity/volume] in Serum or Plasma [facility] Bilirubin, total measurement [facility] BUN/Creatinine ratio [facility] BUN/Creatinine ratio [facility] BUN/Creatinine ratio [facility] Calcium [Mass/volume ] in Serum or Plasma [facility] Calcium [Mass/volume ] in Serum or Plasma [facility] Calcium [Mass/volume ] in Serum or Plasma [facility] Carbon dioxide, tota l [Moles/volume] in Serum or Plasma [facility] Carbon dioxide, tota l [Moles/volume] in Serum or Plasma [facility] Carbon dioxide, tota l [Moles/volume] in Serum or Plasma [facility] Chloride [Moles/volu me] in Serum or Plasma [facility] Chloride [Moles/volu me] in Serum or Plasma [facility] Chloride [Moles/volu me] in Serum or Plasma [facility] Colonoscopy [facility] Creatinine [Moles/vo lume] in Serum or Plasma [facility] Creatinine [Moles/vo lume] in Serum or Plasma [facility] Creatinine [Moles/vo lume] in Serum or Plasma [facility] CTA Head vessels and Neck vessels W contrast IV [facility] Glucose [Mass/volume ] in Serum or Plasma [facility] Glucose [Mass/volume ] in Serum or Plasma [facility] Glucose [Mass/volume ] in Serum or Plasma [facility] Hematocrit [Volume Fraction] of Blood [facility] Hematocrit [Volume Fraction] of Blood [facility] Hematocrit [Volume Fraction] of Blood [facility] Hemoglobin [Mass/vol ume] in Blood [facility] Hemoglobin [Mass/vol ume] in Blood [facility] Hemoglobin [Mass/vol ume] in Blood [facility] Leukocytes [#/volume ] in Blood [facility] Leukocytes [#/volume ] in Blood [facility] Leukocytes [#/volume ] in Blood [facility] Magnesium [Mass/volu me] in Serum or Plasma [facility] Mean corpuscular hemoglobin concentration determination [facility] Mean corpuscular hemoglobin concentration determination [facility] Mean corpuscular hemoglobin concentration determination [facility] Mean corpuscular hemoglobin determination [facility] Mean corpuscular hemoglobin determination [facility] Mean corpuscular hemoglobin determination [facility] Measurement of renal function [facility] Measurement of renal function [facility] Measurement of renal function [facility] Neutrophil count [place] Neutrophil count [place] Neutrophil count [place] Neutrophil percent differential count [facility] Neutrophil percent differential count [facility] Neutrophil percent differential count [facility] Patient Education ED Epigastric Pain Uncertain Cause [facility] Work Phone: Patient referral [place] Work Phone: Platelets [#/volume] in Blood [facility] Platelets [#/volume] in Blood [facility] Platelets [#/volume] in Blood [facility] Potassium [Moles/vol ume] in Serum or Plasma [facility] Potassium [Moles/vol ume] in Serum or Plasma [facility] Potassium [Moles/vol ume] in Serum or Plasma [facility] Red blood cell count [facility] Red blood cell count [facility] Red blood cell count [facility] Red cell distributio n width determination [facility] Red cell distributio n width determination [facility] Red cell distributio n width determination [facility] Sodium [Moles/volume ] in Serum or Plasma [facility] Sodium [Moles/volume ] in Serum or Plasma [facility] Sodium [Moles/volume ] in Serum or Plasma [facility] Total protein measurement [facility] Urea nitrogen [Mass/volume] in Serum or Plasma [facility] Urea nitrogen [Mass/volume] in Serum or Plasma [facility] Urea nitrogen [Mass/volume] in Serum or Plasma [facility] US Carotid arteries [facility] Immunizations Immunization Date Immunization Notes Care Provider Fa alex 02-04-2024 tetanus toxoid, reduced diphtheria toxoid, and acellular pertussis vaccine, adsorbed Mita Zaidi [employer] Work Phone: [facility] 02-08-2018 influenza virus vaccine, unspecified formulation Andrew Calle MD Work Phone: [facility] 09-02-2011 tetanus toxoid, reduced diphtheria toxoid, and acellular pertussis vaccine, adsorbed Andrew Calle MD Work Phone: [facility] 10-30-1995 diphtheria and tetan us toxoids, adsorbed for pediatric use Andrew Calle MD Work Phone: [facility] Work Phone: 02-18-1993 hepatitis B vaccine, adult dosage Andrew Calle MD Work Phone: [facility] Work Phone: 08-25-1983 diphtheria and tetan us toxoids, adsorbed for pediatric use Andrew Calle MD Work Phone: [facility] Work Phone: 11-14-1973 diphtheria and tetan us toxoids, adsorbed for pediatric use Andrew Calle MD Work Phone: [facility] Work Phone: 11-12-1973 diphtheria and tetan us toxoids, adsorbed for pediatric use Andrew Calle MD Work Phone: [facility] Work Phone: 05-20-1959 trivalent poliovirus vaccine, live, oral Andrew Calle MD Work Phone: [facility] Work Phone: 04-12-1959 diphtheria and tetan us toxoids, adsorbed for pediatric use Andrew Calle MD Work Phone: [facility] Work Phone: 12-09-1956 trivalent poliovirus vaccine, live, oral Andrew Calle MD Work Phone: [facility] Work Phone: 07-31-1955 diphtheria and tetan us toxoids, adsorbed for pediatric use Andrew Calle MD Work Phone: [facility] Work Phone: 09-30-1954 diphtheria and tetan us toxoids, adsorbed for pediatric use Andrew Calle MD Work Phone: [facility] Work Phone: 08-19-1954 diphtheria and tetan us toxoids, adsorbed for pediatric use Andrew Calle MD Work Phone: [facility] Work Phone: Payers Date Payer Category Payer Self-pay [id number] 2023 Medicare [id number] 2023 Private Health Insurance [id number] 2019 Private Health Insurance HUMANA HUMANA MEDICARE SUPPLEMENT [id number] 2019-Present [phone] [id number] [place] [id number] Indemnity [id number] 2019 Private Health Insurance HUMANA HUMANA MEDICARE SUPPLEMENT [id number] 2019-Present [phone] [place] [id number] Indemnity [id number] 2014 Medicare MEDICARE MEDICAR E A AND B [id number] 2014-Present [phone] [place] [id number] Medicare [id number] 2014 Medicare MEDICARE MEDICAR E A AND B [id number] 2014-Present [phone] [place] [id number] Medicare [id number] Unknown [id number] Unknown [id number] Unknown MED [facility]/ BENEFIT SERV [id number] Unknown [id number] [id number]. 462 Unknown [id number] 2.16.840.1.884144.3.579.2. 462 Unknown [id number] 2.16.840.1.105495.3.579.2. 462 Unknown [id number] 2.16.840.1.224611.3.579.2. 462 Unknown [id number] 2.16.840.1.815075.3.579.2. 462 Unknown [id number] 2..840.1.594990.3.579.2. 462 Unknown [id number] 2.16.840.1.551532.3.579.2. 462 Unknown [id number] 2..840.1.306392.3.579.2. 462 Unknown [id number] 2.840.1.970896.3.579.2. 462 Unknown [id number] 2..840.1.871818.3.579.2. 462 Unknown [id number] 2..840.1.084114.3.579.2. 462 Unknown [id number] 2..840.1.415961.3.579.2. 462 Unknown [id number] 2..840.1.435664.3.579.2. 462 Unknown [id number] 2..840.1.352521.3.579.2. 462 Unknown [id number] 2.16.840.1.617807.3.579.2. 462 Unknown [id number] 2.16.840.1.330653.3.579.2. 462 Unknown [id number] 2.16.840.1.548128.3.579.2. 462 Unknown [id number] 2.16.840.1.442914.3.579.2. 462 Unknown [id number] 2.16.840.1.374876.3.579.2. 462 Unknown [id number] 2.16.840.1.322471.3.579.2. 462 Unknown [id number] 2.16.840.1.085052.3.579.2. 462 Unknown [id number] 2.16.840.1.268414.3.579.2. 462 Unknown [id number] 2.16.840.1.321356.3.579.2. 462 Unknown [id number] 2.16.840.1.686286.3.579.2. 462 Unknown [id number] 2.16.840.1.840441.3.579.2. 462 Social History Date Type Detail Facility Start: 11-22-2018 End: 02-11-2023 Tobacco smoking status VAIS Unknown if ever smoked [facility] Start: 01-08-2013 None [facility] Start: 01-08-2013 Spouse/ Signif icant Other 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 Medical Equipment Procedure Code Equipment Code Equipment Origin al Text Equipment Identifier Dates Total cholecystectomy with exploration of common bile duct Open-surgery ligation clip photograph editor [id number] FDA Start: 12-07-2022 Total cholecystectomy with exploration of common bile duct Ligation clip, synthetic polymer, non-bioabsorbable [id number] FDA Start: 12-07-2022 TOMALEXEYCAROLYN CAMACHO FDA Start: 11-30-2018 TOMALEXEYCAROLYN CAMACHO FDA Start: 11-30-2018 TOMALEXEYCAROLYN CAMACHO FDA Start: 11-30-2018 TOMALEXEYCAROLYN CAMACHO FDA Start: 11-30-2018 Test blood sugar(s) 1-2 times daily. Dx: Type 2 DM - Uncontrolled E11.65 Insulin: No [id number] Start: 05-08-2019 Comment on above: Test blood sugar(s) 1-2 times daily. Dx: Type 2 DM - Uncontrolled E11.65 Insulin: No TOMMARYLOUCARLOS A CAMACHO FDA Start: 11-30-2018 TOMALEXEYCAROLYN CAMACHO FDA Start: 11-30-2018 TOMMARYLOUCARLOS A CAMACHO FDA Start: 11-30-2018 TOMMARYLOUCARLOS A CAMACHO FDA Start: 11-30-2018 TOMMARYLOUCARLOS A CAMACHO FDA Start: 11-30-2018 TOMMARYLOUCARLOS A CAMACHO FDA Start: 11-30-2018 TOMMARYLOUCARLOS A CAMACHO FDA Start: 11-30-2018 TOMMARYLOUCARLOS A CAMACHO FDA Start: 11-30-2018 TOMMARYLOUCARLOS A CAMACHO FDA Start: 11-30-2018 TOMMARYLOUCARLOS A CAMACHO FDA Start: 11-30-2018 TOMALEXEYCAROLYN CAMACHO FDA Start: 11-30-2018 TOMMARYLOUCARLOS A CAMACHO FDA Start: 11-30-2018 TOMMARYLOUCARLOS A CAMACHO FDA Start: 11-30-2018 TOMMARYLOUCARLOS A CAMACHO FDA Start: 11-30-2018 TOMMARYLOUCARLOS A CAMACHO FDA Start: 11-30-2018 TOMALEXEYCAROLYN CAMACHO FDA Start: 11-30-2018 TOMMARYLOUCARLOS A CAMACHO FDA Start: 11-30-2018 TOMMARYLOUCARLOS A CAMACHO FDA Start: 11-30-2018 TOMALEXEYCAROLYN CAMACHO FDA Start: 11-30-2018 TOMALEXEYCAROLYN CAMACHO FDA Start: 11-30-2018 CLIP,HEMOLOCARLOS A LG WE FDA Start: 11-30-2018 CLIP,HEMOLOCK LG WE FDA Start: 11-30-2018 CLIP,HEMOLOCK LG WE FDA Start: 11-30-2018 CLIP,HEMOLOCK LG WE FDA Start: 11-30-2018 CLIP,HEMOLOCARLOS A LG WECARLOS A FDA Start: 11-30-2018 CLIP,HEMOLOCK LG WE FDA Start: 11-30-2018 CLIP,HEMOLOCK LG WE FDA Start: 11-30-2018 CLIP,HEMOLOCK LG WE FDA Start: 11-30-2018 CLIP,HEMOLOCK LG WE FDA Start: 11-30-2018 CLIP,HEMOLOCK LG WE FDA Start: 11-30-2018 Drug-eluting coronary artery stent, non-bioabsorbable- polymer-coated [id number] FDA Start: 04-10-2023 CLIP,HEMCAROLYN CAMACHO FDA Start: 11-30-2018 CLIP,HEMALVAROCK LG WE FDA Start: 11-30-2018 CLIP,HEMALVAROCK LG WE FDA Start: 11-30-2018 CLIP,HEMALVAROCK QUIN WE FDA Start: 11-30-2018 CLIP,HEMALVAROCK LG WE FDA Start: 11-30-2018 CLIP,HEMALVAROCK LG WE FDA Start: 11-30-2018 CLIP,HEMALVAROCK LG WE FDA Start: 11-30-2018 CLIP,HEMCAROLYN LG WECARLOS A FDA Start: 11-30-2018 CLIP,HEMALVAROCK LG WECK FDA Start: 11-30-2018 CLIP,HEMOLOCK LG WECK FDA Start: 11-30-2018 CLIP,HEMOLOCK LG WE FDA Start: 11-30-2018 CLIP,HEMOLOCK LG WE FDA Start: 11-30-2018 CLIP,HEMOLOCK LG WE FDA Start: 11-30-2018 CLIP,HEMOLOCK LG WE FDA Start: 11-30-2018 CLIP,HEMOLOCK LG WE FDA Start: 11-30-2018 CLIP,HEMOLOCK LG WE FDA Start: 11-30-2018 CLIP,HEMALVAROCK LG WE FDA Start: 11-30-2018 CLIP,HEMOLOCK LG WE FDA Start: 11-30-2018 CLIP,HEMOLOCK LG WE FDA Start: 11-30-2018 CLIP,HEMCAROLYN CAMACHO FDA Start: 11-30-2018 CLIP,HEMCAROLYN CAMACHO FDA Start: 11-30-2018 CLIP,HEMCAROLYN CAMACHO FDA Start: 11-30-2018 CLIP,HEMCAROLYN CAMACHO FDA Start: 11-30-2018 CLIP,HEMCAROLYN CAMACHO FDA Start: 11-30-2018 CLIP,HEMCAROLYN CAMACHO FDA Start: 11-30-2018 CLIP,HEMCAROLYN CAMACHO FDA Start: 11-30-2018 CLIP,HEMCAROLYN CAMACHO FDA Start: 11-30-2018 CLIP,HEMCAROLYN CAMACHO FDA Start: 11-30-2018 CLIP,HEMCAROLYN CAMACHO FDA Start: 11-30-2018 CLIP,HEMCAROLYN CAMACHO FDA Start: 11-30-2018 CLIP,HEMCAROLYN CAMACHO FDA Start: 11-30-2018 CLIP,RIKI CAMACHO FDA Start: 11-30-2018 CLIP,RIKI CAMACHO FDA Start: 11-30-2018 CLIP,HEMCAROLYN CAMACHO FDA Start: 11-30-2018 CLIP,RIKI CAMACHO FDA Start: 11-30-2018 CLIP,HEMCAROLYN CAMACHO FDA Start: 11-30-2018 CLIP,HEMCAROLYN CAMACHO FDA Start: 11-30-2018 CLIP,HEMCAROLYN CAMACHO FDA Start: 11-30-2018 Bare-metal carot id artery stent [id number] FDA Start: 08-15-2024 CLIP,RIKI CAMACHO FDA Start: 11-30-2018 CLIP,RIKI CAMACHO FDA Start: 11-30-2018 Goals Date Patient Goal Desired Activity /State Functional Status Date Assessment Result Facility 08-16-2024 Functional status Ambulates [facility] Work Phone: 05-19-2023 Functional status Ambulates [facility] Work Phone: 04-13-2023 Functional status Ambulates;Bathroom Priv [facility] Work Phone: 04-12-2023 Functional status Ambulates;Bathroom Priv [facility] Work Phone: 04-11-2023 Functional status Activity Abili ty With Assist of [address] [facility] Work Phone: 12-08-2022 Functional status Patient Activi ty Ambulates;Up ad dinesh [facility] Work Phone: 12-08-2022 Functional status Standby Assist [facility] Work Phone: Mental Status Date Assessment Result Facility 08-16-2024 Cognitive function Voice/Name [facility] Work Phone: 05-19-2023 Cognitive function Voice/Name [facility] Work Phone: 05-18-2023 Cognitive function Level Of Cons ciousness Awake;Alert;Appropriate;Follow s Commands [facility] Work Phone: 04-13-2023 Cognitive function Voice/Name [facility] Work Phone: 04-10-2023 Cognitive function Voice/Name [facility] Work Phone: 02-16-2023 Cognitive function Level Of Cons ciousness Awake;Drowsy [facility] Work Phone: 02-16-2023 Cognitive function Voice/Name [facility] Work Phone: 12-08-2022 Cognitive function Level Of Cons ciousness Awake;Alert;Appropriate;Follow s Commands [facility] Work Phone: 12-07-2022 Cognitive function Appropriate;Cooperativ e [facility] Work Phone: 11-30-2022 Cognitive function Voice/Name [facility] Work Phone: Clinical Notes 09-16-2010 to 08-16-2024 Note Date & Type Note Facility 08-16-2024 Consult note [facility] 08-16-2024 Note [facility] Medical Records Department [address] [place] [address] Discharge Summary 08/16/24 1045 MR#: [id number] Acct: [id number] Name: SINDY GREENFIELD Rep #: [id number] : 1950 74 From: Pauly ENGEL PCP: JOCELINE Morejon Status:DIS IN Location: ICU [id number] Providers Date of Admission: 08/15/24 Primary Care Physician: JOCELINE Morejon Reason For Visit: RIGHT CAROTIDSTENT IN CATH LBAB WITH RFNA, OR STAF Diagnosis Discharge Diagnosis (1) Stenosis of right carotid artery: Status: Chronic Code(s): I65.21 - Occlusion and stenosis of right carotid artery Medications at Discharge Home Medications xtqryhqx-zut-qzhln acid 0.4 mg-lycopene 300 mcg-lutein 250 mcg tablet (Centrum Silver) 1 ea PO DAILY SUPPLEMENT' 01/08/13 potassium citrate 10 mEq (1,080 mg) tablet,extended release (Urocit-K 10) 1,080 mg PO DAILY SUPPLEMENT 05/24/15 fenofibrate nanocrystallized 145 mg tablet 145 mg PO DAILY CHOLESTEROL 10/19/17 ezetimibe 10 mg tablet 10 mg PO DAILY cholesterol 12/06/22 vit C 250 mg-vit E 90 mg-zinc 40 mg-copper 1 vn-nfnvku-xqqfys capsule (PreserVision AREDS-2) 1 tab PO BID eye health 12/06/22 losartan 100 mg tablet 100 mg PO DAILY blood pressure 04/10/23 aspirin 81 mg tablet,[facility] #[facility] tabs 04/13/23 clopidogrel 75 mg tablet 75 mg PO DAILY anti platelet #90 tabs 04/13/23 glipizide 5 mg tablet 5 mg PO DINNER diabetes 04/26/23 THERAWORX See Rx Instructions .Route .COMPLEX 05/18/23 levothyroxine 100 mcg tablet 100 mcg PO MOTUWETHFRSA thyroid 05/18/23 metformin 1,000 mg tablet 1,000 mg PO BID DIABETES 05/18/23 Held on 08/16/24. Instructions: Resume on 08/18/24. metoprolol tartrate 25 mg tablet 25 mg PO BID #180 tabs 06/07/23 pravastatin 20 mg tablet 20 mg PO QHS #90 tabs 06/07/23 omega-3 fatty acids 1,000 mg capsule 1,000 mg PO BID 06/23/24 levothyroxine 100 mcg capsule 150 mcg PO GONZALES 08/01/24 acetaminophen 500 mg tablet 1,000 mg (2 x 500 mg) PO Q8 7 days #0 tabs 08/16/24 oxycodone 5 mg tablet 5 mg PO Q8H PRN PRN Pain Score 4-10 3 days #9 tabs 08/16/24 Hospital Course Summary of Care Provided Hospital Course: Mr. Sindy Greenfield is a 74 y/o male who underwent R TCAR 08/15/24, the procedure was without complication and he tolerated it well. Postoperatively, he was routinely admitted to the ICU for ongoing hemodynamic and neurologic monitoring. He has been both hemodynamically and neurologically stable. JEET drain was removed 08/16/24 without issue; he had a lot of oozing around the drain overnight which had slowed by morning and was hemostatic upon drain removal. Incision site satisfactory in appearance without hematoma. R groin puncture site with dressing C/D/I, soft to palpation, minimal ecchymosis. He has tolerated a normal diet, pain is well controlled. He had some dizziness when he first got up after surgery, but this has improved with subsequent ambulation. He is appropriate for discharge home today with planned follow-up in the office on 08/30/24. Physical Exam Const oriented x3 and no apparent distress Eyes EOMs intact bilaterally General Eye: normal appearance of both eyes Neck Neck Narrative: R neck incision site with dermabond intact; no significant edema, soft to palpation, no ecchymosis. Resp normal respiratory effort Cardio regular rate and regular rhythm Extremity normal to inspection Extremity Narrative: R groin puncture site with dressing C/D/I without hematoma Skin no rashes or lesions noted Neuro oriented x3, CN's II-XII intact bilaterally, moves all extremities, no focal motor deficits and no sensory deficits noted Psych mental status grossly normal, affect normal, speech normal and activity/motor behavior normal Appearance: grossly normal Attitude: calm and engaged Weight / BMI Weight Weight: 195 lb 12.328 oz Body Mass Index (BMI) 28.9 ABG / Lab / Microbiology Data 08/16/24 05:45 08/02/24 07:45 Laboratory: Laboratory Results - last 24 hr 08/15/24 09:47: POC Glucose 121 H 08/15/24 10:26: Activated Clotting Time 124 08/15/24 11:01: Activated Clotting Time 233 H 08/15/24 11:11: Activated Clotting Time 245 H 08/15/24 14:48: POC Glucose 130 H 08/15/24 21:03: POC Glucose 159 H 08/16/24 05:37: POC Glucose 110 H 08/16/24 05:45: WBC 8.1, RBC 3.29 L, Hgb 9.9 L, Hct 29.1 L, MCV 88.4, MCH 30.1, MCHC 34.0, RDW Std Deviation 43.8, RDW Coeff of Tico 13.5, Plt Count 208, MPV 10.5, Immature Gran % (Auto) 0.200, Neut % (Auto) 77.6 H, Lymph % (Auto) 11.3 L, Beauregard % (Auto) 10.0, Eos % (Auto) 0.5, Baso % (Auto) 0.4, Absolute Neuts (auto) 6.3, Absolute Lymphs (auto) 0.91, Nucleated RBC % 0 D/C Instructions Discharge Diet: No restrictions May shower in (days): 1 Weight Bearing Status: Weight bearing as tolerated Lifting Restricted to (Lbs): 20 Lifting Restric (more content not included)... [facility] 08-15-2024 Consult note Note Date/Time August 16, 2024 12:08 pm [facility] Medical Records Department [address] [place] [address] Anesthesia Postop Eval II 08/15/24 1408 MR#: [id number] Acct: [id number] Name: SINDY GREENFIELD Rep #:[id number] : 1950 74 From: Ian Hernández PCP: JOCELINE Morejon Status:REG SDC Y Race: C Location: ICU CVICU 201-1 Anesthesia Postop Eval I Sum Postop Eval Completion status Anesthesia document: Postop Eval 1 completed: Yes Anesthesia Postop Eval I Summary Anesthesia Postop Eval I Summary: Anesthesia Postop Eval I: Assessment Summary Airway patent Yes 08/15/24 13:25 CROSS COUNTRY AND TRACK AND FIELD COACH.GDOTT Spontaneous unlabored Yes 08/15/24 13:25 CROSS COUNTRY AND TRACK AND FIELD COACH.GDOTT respirations Mental status Awake,Calm 08/15/24 13:25 CROSS COUNTRY AND TRACK AND FIELD COACH.GDOTT nausea No 08/15/24 13:25 CROSS COUNTRY AND TRACK AND FIELD COACH.GDOTT Vomiting No 08/15/24 13:25 CROSS COUNTRY AND TRACK AND FIELD COACH.GDOTT Anesthesia Postop Eval I: Fluid Summary Crystalloid volume administer 1,500 08/15/24 13:25 CROSS COUNTRY AND TRACK AND FIELD COACH.GDOTT (ml) Colloids volume administered ( ml) Blood Product volume administered (ml) Total IV fluid infused 1,500 08/15/24 13:25 CROSS COUNTRY AND TRACK AND FIELD COACH.GDOTT Anesthesia Postop Eval I: Summary Notes Anesthesia Complication No 08/15/24 13:25 CROSS COUNTRY AND TRACK AND FIELD COACH.GDOTT Anesthesia Complication Comment: Post-operative progress note Anesthesia: Postop Eval II Evaluation Mental status: Awake and Calm Pain Level: 1 nausea: No Vomiting: No Progress Note Post-operative progress note: Patient given 10 mg Hydralazine prior to going to the ICU. Doing well Complications Anesthesia Complication: No 08/15/24 1408 <Electronically signed by Ian Damon MD> Date _ Ian Damon MD [facility] Signature: Date CC: ~ Signed [facility] Work Phone: 1(505) 990-342505-13-2025 Consult note Author Leslie Magana [facility] Note Date/Time August 15, 2024 1:25p [facility] Medical Records Department [address] [place] [address] Anesthesia Postop Eval I 08/15/24 1324 MR#: [id number] Acct: [id number] Name: SINDY GREENFIELD Rep #:[id number] : 1950 74 From: Leslie Magana PCP: JOCELINE Morejon Status:REG SDC Y Race: C Location: ICU CVICU 201-1 Anesthesia: Postop Eval I Current Vital Signs Temperature: 97 F Pulse Rate: 55 Blood Pressure: 137/57 Respiratory Rate: 16 Pulse Ox: 99 Oxygen Delivery Method: Room Air Assessment Airway patent: Yes Spontaneous unlabored respirations: Yes Mental status: Awake and Calm nausea: No Vomiting: No Anesthesia Complication: No Fluid Hydration Crystalloid volume administer (ml): 1,500 Total IV fluid infused: 1,500 Progress Note Anesthesia document: Postop Eval 1 completed: Yes 08/15/24 1325 <Electronically signed by Leslie Magana > Date _ Leslie Magana Cosigner Signature: Date CC: ~ Signed [facility] Work Phone: 1(282) 618-908705-13-2025 Procedure note [facility] Medical Records Department [address] [place] [address] Operative Report 08/15/24 1317 MR#: [id number] Acct: [id number] Name: SINDY GREENFIELD Rep #:[id number] : 1950 74 From: Senthil Noel MD PCP: JOCELINE Morejon Status:ADM IN Location: ICU [place] [address] 1 Operative Report (Standard) Operative Information Date of Procedure: 08/15/24 Pre-Operative Diagnosis: right carotid stenosis Post-Operative Diagnosis: same Surgery/Procedure Performed: right carotid stent, trans carotid orthopedic shoe maker: Yes Agricultural Equipment Design Engineer: Jodi Candelario Tasks completed by first calender worker: Opening, Closing, Opening & closing, Hemostasis: Electrocautery and Retracting Type of Anesthesia: General RN Documented Start/Stop Times: Operation Date: 08/15/24 11:00 Case Time Into Pre-Op 08/15/24 09:08 Out of Pre-Op 08/15/24 10:50 Into Recovery 08/15/24 13:17 Procedure Start Time: 11:45 Procedure Stop Time: 13:00 Select all DRAINS/GRAFTS/IMPLANTS that apply: Implanted device Implanted device details: 10-8 x 40 En route Estimated Blood Loss: 16 Specimen collected: No Description of surgery: HPI: Patient is a 74-year-old male with asymptomatic right carotid artery stenosis who presents nowfor carotid artery stenting via transcarotid approach. Description of procedure: Upon obtaining informed consent and verification correct patient procedure and site the patient was taken to the Measurement And Sensing Technician where he was placed under general anesthesia. He was then positioned prepped and draped in usual sterile fashion a time was performed. Transverse incision was made 1 fingerbreadth superior to the clavicle centered on the common carotid artery. Bovie was used to dissect at the subcutaneous tissue to the level the platysma which was then divided and self-retaining retractors placed in the wound. Further dissection was carried down to the sternocleidomastoid and the cleft between the sternal and clavicular heads identified and dissected with Bovie and self-retaining retractors moved deeper into the wound. Once the carotid sheath was visualized sharp dissection was used to dissect free the anterior border of the jugular vein present retracted laterally. Sharp dissection was then used to dissect free the proximal common carotid artery and a right angle used to place a vessel loop. 5-0 Prolene pursestring was then placed at the intended accesssite and the patient heparinized and allowed to circulate for 3 minutes with subsequent heparin dosing based on ACT results. Under ultrasound guidance the right common femoral vein was accessed with a micropuncture needle wire to then exchanged for micropuncture sheath. Through this a J-wire was advanced and the micropuncture sheath exchanged for the 8 Gabonese venous return sheath. Next the carotid artery was accessed in antegrade fashion with a micropuncture needle wire exchanged for micropuncture sheath. Through the micropuncture sheath hand-injection subtraction angiography was performed revealing satisfactory positioning and no extravasation or dissection. This also revealed the carotid bifurcation and lesion location to guidewire andsheath advancement. Through the micropuncture sheaththe J-wire is advanced andthe micropuncture sheath exchanged for the silk Road flow reversal sheath advanced without resistance. The flow reversal tubing was then attached first to the arterial sheath and then flushed and attached to the venous return sheathwith adequate flow reversal observed. Next the proximal common carotid artery was occluded with Vesseloops and adequate flow reversal confirmed. Multiple oblique view subtraction angiography was then performed confirming adequate sheath positioning and position of the lesion. A 1 4 wire was then advanced across the lesion and a silk Road angioplasty balloon 5 x 35 was advanced into the lesion and inflated to nominal then deflated withdrawn. Next an en route tapered 10 to 8 x 40 stent was advanced in the position and deployed followed by2 minutes of flow reversal. Next subtraction angiography was performed revealing satisfactory stentplacement with no extravasation or dissection, no residual stenosis, and no plaque prolapse. The carotid clamp was then released and additional 1 minute of flow reversal performed. The flow reversal tubing was then detached and blood return via the venous sheath. The venous sheath wasthen withdrawnand manual pressure held for 5 minutes till hemostasis was obtained. The Prolene pursestring suturewas then secured as the arterial sheath was withdrawn and satisfactory stasis noted. Heparin was then reversed with protamine and the incision inspected for hemostasis. A 19 Gabonese channel JEET was then placed via separate stab incision and the incision closed with 3-0 Vicryl, 4 Monocryl and Dermabond for skin. At the conclusion of case the patient was waken anesthesia moving extremities command with cranial nerves intact. The patient was then taken the recovery room with anticipated admissionto the intensive care unit for hemodynamic neurologic monitoring. Surgical Findings: see above Complications Complications: No 08/15/24 1436 Cosigner Signature (if applicable): CC: JOCELINE Zaidi; Dr. Senthil Noel MD~ Signed [facility]05-13-2025 Consult note [facility] Medical Records Department [address] [place] [address] Anesthesia Postop Eval I 08/15/24 1324 MR#: [id number] Acct: [id number] Name: SINDY GREENFIELD Rep #:[id number] : 1950 74 From: Leslie Magana PCP: JOCELINE Morejon Status:REG SDC Y Race: C Location: ICU CVICU 201- Anesthesia: Postop Eval I Current Vital Signs Temperature: 97 F Pulse Rate: 55 Blood Pressure: 137/57 Respiratory Rate: 16 Pulse Ox: 99 Oxygen Delivery Method: Room Air Assessment Airway patent: Yes Spontaneous unlabored respirations: Yes Mental status: Awake and Calm nausea: No Vomiting: No Anesthesia Complication: No Fluid Hydration Crystalloid volume administer (ml): 1,500 Total IV fluid infused: 1,500 Progress Note Anesthesia document: Postop Eval 1 completed: Yes 08/15/24 1325 > Date _ Leslie Delgado Signature: Date CC: ~ Signed [facility]05-13-2025 History and physical note Author Senthil Noel [facility] Note Date/Time August 15, 2024 11:[address] [facility] Medical Records Department [address] [place] [address] History & Physical Exam 08/15/24 1106 MR#: [id number] Acct: [id number] Name: SINDY GREENFIELD Rep #:[id number] : 1950 74 From: Senthil Noel MD PCP: JOCELINE Morejon Status:REG [facility] Location: [place] [address] HPI - General HPI Narrative SINDY GREENFIELD, is a 74 M who presents with right ICA stenosis found initially on duplex to further evaluate dizziness. This revealed >70% stenosis of the right ICA. He is currently on ASA/plavix/statin for CAD. He has had a CTA that confirmed 76% stenosis. He is in the process of arranging cervical decompressionvia anterior approach with Dr. Bettencourt in the near future. He denies numbness/weakness/vision loss/speech difficulty. [facility] Medical History Anxiety Generalized psoriasis Cervical arthritis Syncope Thyroid disease Anemia CPAP (continuous positive airway pressure) dependence History of pain when walking History of echocardiogram Cardiology follow-up encounter History of heart attack Preop cardiovascular exam Supraventricular tachycardia Transient complete heart block Loss of hearing Wears glasses Cancer History of renal disease High cholesterol Dietary restriction Difficulty swallowing Non-smoker Neuropathy BPH (benign prostatic hyperplasia) Cholecystitis Hypothyroid Diabetes mellitus Leg cramping Hypertension Home Medications ?Medication ?Instructions ?Recorded ?Last Taken ?Type jivoyohp-khe-oeyje acid 0.4 1 ea PO DAILY SUPPLEMENT' 01/08/13 08/14/24 History mg-lycopene 300 mcg-lutein 250 mcg tablet (Centrum Silver) potassium citrate 10 mEq (1,080 1,080 mg PO DAILY SUPP LEMENT 05/24/15 08/14/24 History mg) tablet,extended release (Urocit-K 10) fenofibrate nanocrystallized 145 145 mg PO DAILY DANIEL STEROL 10/19/17 08/14/24 History mg tablet ezetimibe 10 mg tablet 10 mg PO DAILY cholesterol 0 12/06/22 08/14/24 History vit C 250 mg-vit E 90 mg-zinc 40 1 tab PO BID eye heal th 12/06/22 08/14/24 History mg-copper 1 iu-sxqttk-iboryd capsule (PreserVision AREDS-2) losartan 100 mg tablet 100 mg PO DAILY blood pressu re 04/10/23 08/15/24 History aspirin 81 mg tablet,delayed 81 mg PO DAILYCM heart he alth 90 04/13/23 08/15/24 Rx release days #90 tabs clopidogrel 75 mg tablet 75 mg PO DAILY anti platelet #90 04/13/23 08/15/24 Rx tabs glipizide 5 mg tablet 5 mg PO DINNER diabetes 04/0608/14/24 History THERAWORX See Rx Instructions .Route . COMPLEX 05/18/23 Unknown History levothyroxine 100 mcg tablet 100 mcg PO MOTUWETHFRSA t hyroid 05/18/23 08/15/24 History metformin 1,000 mg tablet 1,000 mg PO BID DIABETES 08/14/24 History metoprolol tartrate 25 mg tablet 25 mg PO BID #180 tab s 06/07/23 08/15/24 Rx pravastatin 20 mg tablet 20 mg PO QHS #90 tabs 08/14/24 Rx omega-3 fatty acids 1,000 mg 1,000 mg PO BID 06/23/24 08/14/24 History capsule levothyroxine 100 mcg capsule 150 mcg PO GONZALES 08/01/24 0 08/13/24 History Allergy/AdvReac Type Severity Reaction Status Date / Time Pjxiclj-FZQ-FyN Reductase AdvReac leg cramps Verified 08/15/24 09:41 Inhibitor (Hnyzjxl-Xvp-Mnb Reductase Inhibitor) Surgical History Hx of oral surgery Hx of cystoscopy History of coronary artery stent placement Hx of colonoscopy Stented coronary artery (~04/10/23) Hx of cardiac catheterization (~04/10/23) Hx of total knee replacement S/P laparoscopic cholecystectomy History of tonsillectomy and adenoidectomy H/O prostatectomy Social History household members: spouse current occupational status: retired Smoking Status: Never smoker alcohol intake: never substance use type: does not use caffeine: No ROS Constitutional Constitutional: Denies chills, fever(s), frequent falls, lethargy or weakness Eyes Eyes: Denies blind spots, change in vision or loss of vision ENT HEENT: Denies bleeding gums, hoarseness or sore throat Cardiovascular Cardiovascular: Denies abdominal pain, bluish discoloration of hand/feet, chest pain with activity, claudication, cold extremities, cyanosis, dyspnea on exertion, erythema on extremities, irregular heart rhythm, leg edema, leg ulcers, numbness in extremities or weakness in extremities Respiratory/Chest Respiratory/Chest: Denies cough, excessive phlegm production, shortness of breath at rest, shortness of breath with exertion or wheezing Gastrointestinal Gastrointestinal: Denies anorexia, change in stool character, constipation, diarrhea, melena or rectal bleeding Genitourinary Genitourinary: Denies dysuria or hematuria Musculoskeletal Musculoskeletal: Denies abnormal gait Integumentary Integumentary: Reports other Details: ; Denies erythema, non-healing lesions or wounds Neurologic Neurologic: Denies abnormal speech, focal weakness, headache(s), loss of vision,numbness, paresthesias or sensory deficit Hematologic/Lymphatic Hematologic/Lymphatic: Denies easy bleeding, easy bruising or lymphadenopathy Vital Signs Vital Signs Vital Signs: 08/15/24 09:48 08/15/24 09:48 08/15/24 10:30 Temperature 96.7 F L 96.7 F L Temperature Source Temporal Pulse Rate 61 61 Respiratory Rate 14 14 Respiratory Pattern Normal Blood Pressure 137/71 H 137/71 H Blood Pressure Mean 93 Blood Pressure Source Monitor Blood Pressure Position Semi-Fowlers Blood Pressure Location Left Arm Pulse Ox 100 100 Oxygen Delivery Method Room Air Room Air Weight Weight: 183 lb 10.321 oz Body Mass Index (BMI) 27.1 Physical Exam Const alert, oriented x3, no apparent distress and healthy appearing General Appearance: cooperative; Negative for combative or lethargic Orientation / Consciousness: awake Exam Limitations: no limitations HEENT Head and Scalp: normocephalic and atraumatic Eyes EOMs intact bilaterally General Eye: normal appearance of both eyes Neck full ROM General: trachea midline Resp normal respiratory effort and no use of accessory muscles Effort and Inspection: Negative for labored, stridor or audible wheezes Cardio regular rate and regular rhythm Back/Spine Cervical Spine: cervical ROM normal Extremity full ROM, normal capillary refill and no clubbing, cyanosis or edema Skin no rashes or lesions noted and no wounds Neuro oriented x3, CN's II-XII intact bilaterally, no focal motor deficits and no sensory deficits noted Psych thought process normal, cooperative, affect normal, speech normal and activity/motor behavior normal Results Lab / Micro Data 08/02/24 07:45 Labs: Laboratory Results - last 24 hr 08/15/24 09:47: POC Glucose 121 H Assessment & Plan Assessment/Plan (1) Stenosis of right carotid artery: PLAN: -right TCAR 08/15/24 1110 <Electronically signed by Senthil Noel MD> Cosigner Signature (if applicable): CC: SUPERVISOR TITLE-C Mita Zaidi; Dr. Senthil Noel MD~ Signed [facility] Work Phone: [phone]) 218-660505-13-2025 Consult note Author Ian Damon [facility] Note Date/Time August 15, 2024 10:31 am [facility] Medical Records Department [address] [place] [address] Pre-Anesthesia Evaluation 08/15/24 1025 MR#: [id number] Acct: [id number] Name: SINDY GREENFIELD Rep #:[id number] : 1950 74 From: Ian Hernández PCP: JOCELINE Morejon Status:REG SDC Y Race: C Location: [place] [address] ASA Classification* ASA Classification ASA Classification: 3 Assessment & Plan Anesthesia* Anesthesia Assessment Anesthesia Assessment: Discussed sedation and/or anesthesia options, risks, benefits, and alternatives with patient/parents/legal guardian/POA. Questions invited. The patient/parents/legal guardian/POA seems to understand and agrees to proceedwith anesthesia plan. Reviewed the physical assessment, medical history, allergy history and patient home medications list prior to surgery/procedure/anesthetic and documented any changes. Performed airway and anesthesia risk assessments. Anesthesia Type Anesthesia Type: General (Will place arterial line) History Source History Obtained from:: Patient and Chart Anesthesia Focused Assessment* Temperature: 96.7 F Pulse Rate: 61 Blood Pressure: 137/71 Respiratory Rate: 14 Pulse Ox: 100 Oxygen Delivery Method: Room Air Airway Assessment Mouth opens: >3 cm Mallampati Score: II Teeth Condition: Intact Focused Labs Anesthesia Preop lab: CBC WBC 6.1 K/mm3 (4.4-11.0) 06/12/24 12:18 06/12/24 RBC 4.08 M/mm3 (4.6-6.2) L 06/12/24 12:18 06/12/24 Hgb 12.1 g/dL (13.0-16.5) L 06/12/24 12: 5 Hct 36.1 % (40-54) L 06/12/24 12:06/12/24 Plt Count 247 K/mm3 (150-450) 06/12/24 12:18 06/12/24 CHEMISTRY Potassium 4.4 mmol/L (3.3-5.1) 08/02/24 07:45 08/02/24 Sodium 140 mmol/L (133-145) 08/02/24 07:45 08/02/24 Magnesium 2.2 mg/dL (1.5-2.2) 06/12/24 12:12 06/12/24 Phosphorus 3.8 mg/dL (2.5-4.9) 04/12/23 05:40 04/12/23 BUN 31 mg/dL (4-19) H 08/02/24 07:45 08/02/24 Creatinine 1.50 mg/dL (0.70-1.20) H 08/02/24 07:45 Glucose 160 mg/dL (70-99) H 08/02/24 07:45 08/02/24 POC Glucose 112 mg/dL (74-106) H 02/04/24 18:56 02/04/24 TSH 1.720 uIU/mL (0.300-4.200) 06/12/24 12:12 06/03 COAG PT 13.8 SECONDS (11.7-14.9) 05/18/23 10:08 Pre-Assessment Diagnosis/Proposed Procedure Planned Operative Procedure(s): RIGHT CAROTID STENT IN ECHOCARDIOGRAPH TECHNICIAN WITH ANESTHESIA Anesthesia History Anesthesia History - director of securities and real estate: Anesthesia History - director of securities and real estate Hx Hospitalization No 08/01/24 09:26 Any Problems With Anesthesia Yes: SLOW TO AWAKEN 08/01/24 09:26 Cholinesterase deficiency No 08/01/24 09:26 You/Your Family Experience No 08/01/24 09:26 fever (hyperthermia) with Relationship Recent Exposure to Contagious No 08/15/24 09:48 Disease Does patient have nerve No 08/01/24 09:26 stimulator Patient instructed to have device shut off --Does patient have Pacemaker No 08/15/24 09:48 or ICD? When Was Last Pacemaker Check QUESTION #4 FULL TEXT: You/Your Family Experience fever (hyperthermia) with Anesthesia Last Oral Intake Last Oral intake: Last Oral Intake NPO since 17:00 08/15/24 09:48 Meds taken in AM with sips of water? 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 Female No 08/01/24 09:26 HX of Motion Sickness No 08/01/24 09:26 HX of N/V After Surgery No 08/01/24 09:26 Non-Smoker Yes 08/01/24 09:26 Duration of Surgery greater Yes 08/01/24 09:26 than 60 minutes Number of Risk Factors 2 08/01/24 09:26 PONV Score Moderate Risk 08/01/24 09:26 Height & Weight Height & Weight: Anesthesia: Height & Weight Height 5 ft 9 in 08/15/24 09:48 Weight: 83.3 kg 08/15/24 09:48 Body Mass Index (BMI) 27.1 08/15/24 09:48 Respiratory Assessment Respiratory Assessment - director of securities and real estate: Respiratory Tract Infection Hx - 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 Has anyone observed you stop breathing during sleep? STOP Results Positive 08/01/24 09:26 QUESTION #5 FULL TEXT : Do you snore loudly (louder than talking or can be heard through closed doors)? 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 Specify any problems Hx of Preganancy in last 3 N/A 08/01/24 09:26 Months Nurse Filling Out Transfusion DSCHRIBER 08/01/24 09:26 & Questions: Date: 08/01/24 08/01/24 09:26 Time: 08/01/24 09:26 Patient unable to answer at this time (ie. 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 Hx Now No 08/01/24 09:26 Gestational Age (in weeks): EDC: Hx Hx Para Hx Section SAB No 08/01/24 09:26 Active Medications Active Medications: Current Medications Generic Name Dose Route Start Last Admin Trade Name Freq PRN Reason Stop Dose Admin Lactated Ringer's 1,000 mls @ 15 mls/hr 08/15/24 09:15 08/15/24 10:06 IV 15 mls/hr .Q48H JS Administration Sodium Chloride 1,000 mls @ 1 mls/hr 08/15/24 09:10 IV .Q48H PRN Saline Flush PFSH Medical History Anxiety Generalized psoriasis Cervical arthritis Syncope Thyroid disease Anemia CPAP (continuous positive airway pressure) dependence History of pain when walking History of echocardiogram Cardiology follow-up encounter History of heart attack Preop cardiovascular exam Supraventricular tachycardia Transient complete heart block Loss of hearing Wears glasses Cancer History of renal disease High cholesterol Dietary restriction Difficulty swallowing Non-smoker Neuropathy BPH (benign prostatic hyperplasia) Cholecystitis Hypothyroid Diabetes mellitus Leg cramping Hypertension Home Medications ?Medication ?Instructions ?Recorded ?Last Taken ?Type tanhojvh-ijf-zoolt acid 0.4 1 ea PO DAILY SUPPLEMENT' 01/08/13 08/14/24 History mg-lycopene 300 mcg-lutein 250 mcg tablet (Centrum Silver) potassium citrate 10 mEq (1,080 1,080 mg PO DAILY SUPP LEMENT 05/24/15 08/14/24 History mg) tablet,extended release (Urocit-K 10) fenofibrate nanocrystallized 145 145 mg PO DAILY DANIEL STEROL 10/19/17 08/14/24 History mg tablet ezetimibe 10 mg tablet 10 mg PO DAILY cholesterol 0 12/06/22 08/14/24 History vit C 250 mg-vit E 90 mg-zinc 40 1 tab PO BID eye heal th 12/06/22 08/14/24 History mg-copper 1 wo-lldspu-klwtwo capsule (PreserVision AREDS-2) losartan 100 mg tablet 100 mg PO DAILY blood pressu re 04/10/23 08/15/24 History aspirin 81 mg tablet,delayed 81 mg PO DAILYCM heart he alth 90 04/13/23 08/15/24 Rx release days #90 tabs clopidogrel 75 mg tablet 75 mg PO DAILY anti platelet #90 04/13/23 08/15/24 Rx tabs glipizide 5 mg tablet 5 mg PO DINNER diabetes 04/0608/14/24 History THERAWORX See Rx Instructions .Route . COMPLEX 05/18/23 Unknown History levothyroxine 100 mcg tablet 100 mcg PO MOTUWETHFRSA t hyroid 05/18/23 08/15/24 History metformin 1,000 mg tablet 1,000 mg PO BID DIABETES 08/14/24 History metoprolol tartrate 25 mg tablet 25 mg PO BID #180 tab s 06/07/23 08/15/24 Rx pravastatin 20 mg tablet 20 mg PO QHS #90 tabs 08/14/24 Rx omega-3 fatty acids 1,000 mg 1,000 mg PO BID 06/23/24 08/14/24 History capsule levothyroxine 100 mcg capsule 150 mcg PO GONZALES 08/01/24 0 08/13/24 History Allergy/AdvReac Type Severity Reaction Status Date / Time Zfuphdg-XCC-ZxP Reductase AdvReac leg cramps Verified 08/15/24 09:41 Inhibitor (Xnbqxye-Qer-Sdb Reductase Inhibitor) Surgical History Hx of oral surgery Hx of cystoscopy History of coronary artery stent placement Hx of colonoscopy Stented coronary artery (~04/10/23) Hx of cardiac catheterization (~04/10/23) Hx of total knee replacement S/P laparoscopic cholecystectomy History of tonsillectomy and adenoidectomy H/O prostatectomy Social History household members: spouse current occupational status: retired Smoking Status: Never smoker alcohol intake: never substance use type: does not use caffeine: No Addt'l Information Additional Findings: Echo cardiogram EF 55%, diastolic grade 1 Review of Systems (Anesthesia) ROS Narrative System reviewed and no additional complaints, except as documented. Physical Exam Const alert and oriented x3 HEENT dentition normal Resp normal respiratory effort Auscultation: clear to auscultation bilaterally Cardio regular rate and regular rhythm Neuro oriented x3 and moves all extremities 08/15/24 1031 <Electronically signed by Ian Damon MD> Date _ Ian Damon MD Cosigner Signature: Date CC: ~ Signed [facility] Work Phone: [phone] 417-762405-13-2025 History and physical note [facility] Medical Records Department [address] [place], [place] [address] History & Physical Exam 08/15/24 1106 MR#: [id number] Acct: [id number] Name: SINDY GREENFIELD Rep #:[id number] : 1950 74 From: Senthil Noel MD PCP: Mita Zaidi SUPERVISOR TITLE-C Status:[place] [facility] [place] Location: [place] [address] HPI - General HPI Narrative SINDY GREENFIELD, is a 74 M who presents with right ICA stenosis found initially on duplex to further evaluate dizziness. This revealed >70% stenosis of the right ICA. He is currently on ASA/plavix/statin for CAD. He has had a CTA that confirmed 76% stenosis. He is in the process of arranging cervical decompressionvia anterior approach with Dr. Bettencourt in the near future. He denies numbness/weakness/vision loss/speech difficulty. [facility] Medical History Anxiety Generalized psoriasis Cervical arthritis Syncope Thyroid disease Anemia CPAP (continuous positive airway pressure) dependence History of pain when walking History of echocardiogram Cardiology follow-up encounter History of heart attack Preop cardiovascular exam Supraventricular tachycardia Transient complete heart block Loss of hearing Wears glasses Cancer History of renal disease High cholesterol Dietary restriction Difficulty swallowing Non-smoker Neuropathy BPH (benign prostatic hyperplasia) Cholecystitis Hypothyroid Diabetes mellitus Leg cramping Hypertension Home Medications ?Medication ?Instructions ?Recorded ?Last Taken ?Type hqzvptif-nsz-haenq acid 0.4 1 ea PO DAILY SUPPLEMENT' 01/08/13 08/14/24 History mg-lycopene 300 mcg-lutein 250 mcg tablet (Centrum Silver) potassium citrate 10 mEq (1,080 1,080 mg PO DAILY SUPP LEMENT 05/24/15 08/14/24 History mg) tablet,extended release (Urocit-K 10) fenofibrate nanocrystallized 145 145 mg PO DAILY DANIEL STEROL 10/19/17 08/14/24 History mg tablet ezetimibe 10 mg tablet 10 mg PO DAILY cholesterol 0 12/06/22 08/14/24 History vit C 250 mg-vit E 90 mg-zinc 40 1 tab PO BID eye heal th 12/06/22 08/14/24 History mg-copper 1 nj-vnadir-wmqfmx capsule (PreserVision AREDS-2) losartan 100 mg tablet 100 mg PO DAILY blood pressu re 04/10/23 08/15/24 History aspirin 81 mg tablet,delayed 81 mg PO DAILYCM heart he alth 90 04/13/23 08/15/24 Rx release days #90 tabs clopidogrel 75 mg tablet 75 mg PO DAILY anti platelet #90 04/13/23 08/15/24 Rx tabs glipizide 5 mg tablet 5 mg PO DINNER diabetes 04/0608/14/24 History THERAWORX See Rx Instructions .Route . COMPLEX 05/18/23 Unknown History levothyroxine 100 mcg tablet 100 mcg PO MOTUWETHFRSA t hyroid 05/18/23 08/15/24 History metformin 1,000 mg tablet 1,000 mg PO BID DIABETES 08/14/24 History metoprolol tartrate 25 mg tablet 25 mg PO BID #180 tab s 06/07/23 08/15/24 Rx pravastatin 20 mg tablet 20 mg PO QHS #90 tabs 08/14/24 Rx omega-3 fatty acids 1,000 mg 1,000 mg PO BID 06/23/24 08/14/24 History capsule levothyroxine 100 mcg capsule 150 mcg PO GONZALES 08/01/24 0 08/13/24 History Allergy/AdvReac Type Severity Reaction Status Date / Time Bpagawc-EXL-MkT Reductase AdvReac leg cramps Verified 08/15/24 09:41 Inhibitor (Diavmve-Iua-Vaf Reductase Inhibitor) Surgical History Hx of oral surgery Hx of cystoscopy History of coronary artery stent placement Hx of colonoscopy Stented coronary artery (~04/10/23) Hx of cardiac catheterization (~04/10/23) Hx of total knee replacement S/P laparoscopic cholecystectomy History of tonsillectomy and adenoidectomy H/O prostatectomy Social History household members: spouse current occupational status: retired Smoking Status: Never smoker alcohol intake: never substance use type: does not use caffeine: No ROS Constitutional Constitutional: Denies chills, fever(s), frequent falls, lethargy or weakness Eyes Eyes: Denies blind spots, change in vision or loss of vision ENT HEENT: Denies bleeding gums, hoarseness or sore throat Cardiovascular Cardiovascular: Denies abdominal pain, bluish discoloration of hand/feet, chest pain with activity,claudication, cold extremities, cyanosis, dyspnea on exertion, erythema on extremities, irregular heart rhythm, leg edema, leg ulcers, numbness in extremities or weakness in extremities Respiratory/Chest Respiratory/Chest: Denies cough, excessive phlegm production, shortness of breath at rest, shortness of breath with exertion or wheezing Gastrointestinal Gastrointestinal: Denies anorexia, change in stool character, constipation, diarrhea, melena or rectal bleeding Genitourinary Genitourinary: Denies dysuria or hematuria Musculoskeletal Musculoskeletal: Denies abnormal gait Integumentary Integumentary: Reports other Details: ; Denies erythema, non-healing lesions or wounds Neurologic Neurologic: Denies abnormal speech, focal weakness, headache(s), loss of vision,numbness, paresthesias or sensory deficit Hematologic/Lymphatic Hematologic/Lymphatic: Denies easy bleeding, easy bruising or lymphadenopathy Vital Signs Vital Signs Vital Signs: 08/15/24 09:48 08/15/24 09:48 08/15/24 10:30 Temperature 96.7 F L 96.7 F L Temperature Source Temporal Pulse Rate 61 61 Respiratory Rate 14 14 Respiratory Pattern Normal Blood Pressure 137/71 H 137/71 H Blood Pressure Mean 93 Blood Pressure Source Monitor Blood Pressure Position Semi-Fowlers Blood Pressure Location Left Arm Pulse Ox 100 100 Oxygen Delivery Method Room Air Room Air Weight Weight: 183 lb 10.321 oz Body Mass Index (BMI) 27.1 Physical Exam Const alert, oriented x3, no apparent distress and healthy appearing General Appearance: cooperative; Negative for combative or lethargic Orientation / Consciousness: awake Exam Limitations: no limitations HEENT Head and Scalp: normocephalic and atraumatic Eyes EOMs intact bilaterally General Eye: normal appearance of both eyes Neck full ROM General: trachea midline Resp normal respiratory effort and no use of accessory muscles Effort and Inspection: Negative for labored, stridor or audible wheezes Cardio regular rate and regular rhythm Back/Spine Cervical Spine: cervical ROM normal Extremity full ROM, normal capillary refill and no clubbing, cyanosis or edema Skin no rashes or lesions noted and no wounds Neuro oriented x3, CN's II-XII intact bilaterally, no focal motor deficits and no sensory deficits noted Psych thought process normal, cooperative, affect normal, speech normal and activity/motor behavior normal Results Lab / Micro Data 08/02/24 07:45 Labs: Laboratory Results - last 24 hr 08/15/24 09:47: POC Glucose 121 H Assessment & Plan Assessment/Plan (1) Stenosis of right carotid artery: PLAN: -right TCAR 08/15/24 1110 Cosigner Signature (if applicable): CC: SUPERVISOR TITLE-C Mita Zaidi; Dr. Senthil Noel MD~ Signed [facility]2025 [facility] Medical Records Department [address] [place] [address] History Physical Exam 08/15/24 1106 MR#: [id number] Acct: [id number] Name: SINDY GREENFIELD Rep #: [id number] : 1950 74 From: Senthil Noel MD PCP: JOCELINE Morejon Status:REG [facility] [place] Location: [place] [address] HPI - General HPI Narrative SINDY GREENFIELD, is a 74 M who presents with right ICA stenosis found initially on duplex to further evaluate dizziness. This revealed >70% stenosis of the right ICA. He is currently on ASA/plavix/statin for CAD. He has had a CTA that confirmed 76% stenosis. He is in the process of arranging cervical decompression via anterior approach with Dr. Bettencourt in the near future. He denies numbness/weakness/vision loss/speech difficulty. [facility] Medical History Anxiety Generalized psoriasis Cervical arthritis Syncope Thyroid disease Anemia CPAP (continuous positive airway pressure) dependence History of pain when walking History of echocardiogram Cardiology follow-up encounter History of heart attack Preop cardiovascular exam Supraventricular tachycardia Transient complete heart block Loss of hearing Wears glasses Cancer History of renal disease High cholesterol Dietary restriction Difficulty swallowing Non-smoker Neuropathy BPH (benign prostatic hyperplasia) Cholecystitis Hypothyroid Diabetes mellitus Leg cramping Hypertension Home Medications ???Medication ???Instructions ???Recorded ???Last Taken ???Type tfufbdav-wlu-yipxa acid 0.4 1 ea PO DAILY SUPPLEMENT' 01/08/13 08/14/24 History mg-lycopene 300 mcg-lutein 250 mcg tablet (Centrum Silver) potassium citrate 10 mEq (1,080 1,080 mg PO DAILY SUPPLEMENT 05/2408/14/24 History mg) tablet,extended release (Urocit-K 10) fenofibrate nanocrystallized 145 145 mg PO DAILY CHOLESTEROL 08/14/24 History mg tablet ezetimibe 10 mg tablet 10 mg PO DAILY cholesterol 3 08/14/24 History vit C 250 mg-vit E 90 mg-zinc 40 1 tab PO BID eye health 12/06/22 0 08/14/24 History mg-copper 1 sh-pymqtp-skluvq capsule (PreserVision AREDS-2) losartan 100 mg tablet 100 mg PO DAILY blood pressure 09/2608/15/24 History aspirin 81 mg tablet,delayed 81 mg PO DAILYCM heart health 90 0 04/13/23 08/15/24 Rx release days #90 tabs clopidogrel 75 mg tablet 75 mg PO DAILY anti platelet #90 0 04/13/23 08/15/24 Rx tabs glipizide 5 mg tablet 5 mg PO DINNER diabetes 04/26/23 0 08/14/24 History THERAWORX See Rx Instructions .Route .COMPLE X 05/18/23 Unknown History levothyroxine 100 mcg tablet 100 mcg PO MOTUWETHFRSA thyroid 08/15/24 History metformin 1,000 mg tablet 1,000 mg PO BID DIABETES 05/18/23 08/14/24 History metoprolol tartrate 25 mg tablet 25 mg PO BID #180 tabs 06/07/23 Rx pravastatin 20 mg tablet 20 mg PO QHS #90 tabs 06/07/2303/29 Rx omega-3 fatty acids 1,000 mg 1,000 mg PO BID 06/23/24 08/14/24 History capsule levothyroxine 100 mcg capsule 150 mcg PO GONZALES 08/01/24 08/13/24 Hi story Allergy/AdvReac Type Severity Reaction Status Date / Time Klwxpjz-JAD-HiQ Reductase AdvReac leg cramps Verified 08/15/24 09:41 Inhibitor (Seapupv-Zir-Ktz Reductase Inhibitor) Surgical History Hx of oral surgery Hx of cystoscopy History of coronary artery stent placement Hx of colonoscopy Stented coronary artery ( 04/10/23) Hx of cardiac catheterization ( 04/10/23) Hx of total knee replacement S/P laparoscopic cholecystectomy History of tonsillectomy and adenoidectomy H/O prostatectomy Social History household members: spouse current occupational status: retired Smoking Status: Never smoker alcohol intake: never substance use type: does not use caffeine: No ROS Constitutional Constitutional: Denies chills, fever(s), frequent falls, lethargy or weakness Eyes Eyes: Denies blind spots, change in vision or loss of vision ENT HEENT: Denies bleeding gums, hoarseness or sore throat Cardiovascular Cardiovascular: Denies abdominal pain, bluish discoloration of hand/feet, chest pain with activity, claudication, cold extremities, cyanosis, dyspnea on exertion, erythema on extremities, irregular heart rhythm, leg edema, leg ulcers, numbness in extremities or weakness in extremities Respiratory/Chest Respiratory/Chest: Denies cough, excessive phlegm production, shortness of breath at rest, shortness of breath with exertion or wheezing Gastrointestinal Gastrointestinal: Denies anorexia, change in stool character, constipation, diarrhea, melena or rectal bleeding Genitourinary Genitourinary: Denies dysuria or hematuria Musculoskele (more content not included)...[facility]05-13-2025 Consult note [facility] Medical Records Department [address] [facility] [place] [address] Pre-Anesthesia Evaluation 08/15/24 1025 MR#: [id number] Acct: [id number] Name: SINDY GREENFIELD Rep #:[id number] : 1950 74 From: Ian Hernández PCP: JOCELINE Morejon Status:REG SDC Y Race: C Location: [place] [address] ASA Classification* ASA Classification ASA Classification: 3 Assessment & Plan Anesthesia* Anesthesia Assessment Anesthesia Assessment: Discussed sedation and/or anesthesia options, risks, benefits, and alternatives with patient/parents/legal guardian/POA. Questions invited. The patient/parents/legal guardian/POA seems to understand and agrees to proceedwith anesthesia plan. Reviewed the physical assessment, medical history, allergy history and patient home medications list prior to surgery/procedure/anesthetic and documented any changes. Performed airway and anesthesia risk assessments. Anesthesia Type Anesthesia Type: General (Will place arterial line) History Source History Obtained from:: Patient and Chart Anesthesia Focused Assessment* Temperature: 96.7 F Pulse Rate: 61 Blood Pressure: 137/71 Respiratory Rate: 14 Pulse Ox: 100 Oxygen Delivery Method: Room Air Airway Assessment Mouth opens: >3 cm Mallampati Score: II Teeth Condition: Intact Focused Labs Anesthesia Preop lab: CBC WBC 6.1 K/mm3 (4.4-11.0) 06/12/24 12:18 06/12/24 RBC 4.08 M/mm3 (4.6-6.2) L 06/12/24 12:18 06/12/24 Hgb 12.1 g/dL (13.0-16.5) L 06/12/24 12:18 5 Hct 36.1 % (40-54) L 06/12/24 12:18 06/12/24 Plt Count 247 K/mm3 (150-450) 06/12/24 12:18 06/12/24 CHEMISTRY Potassium 4.4 mmol/L (3.3-5.1) 08/02/24 07:45 08/02/24 Sodium 140 mmol/L (133-145) 08/02/24 07:45 08/02/24 Magnesium 2.2 mg/dL (1.5-2.2) 06/12/24 12:12 06/12/24 Phosphorus 3.8 mg/dL (2.5-4.9) 04/12/23 05:40 04/12/23 BUN 31 mg/dL (4-19) H 08/02/24 07:45 08/02/24 Creatinine 1.50 mg/dL (0.70-1.20) H 08/02/24 07:45 Glucose 160 mg/dL (70-99) H 08/02/24 07:45 08/02/24 POC Glucose 112 mg/dL (74-106) H 02/04/24 18:56 02/04/24 TSH 1.720 uIU/mL (0.300-4.200) 06/12/24 12:12 06/03 COAG PT 13.8 SECONDS (11.7-14.9) 05/18/23 10:08 Pre-Assessment Diagnosis/Proposed Procedure Planned Operative Procedure(s): RIGHT CAROTID STENT IN ECHOCARDIOGRAPH TECHNICIAN WITH ANESTHESIA Anesthesia History Anesthesia History - director of securities and real estate: Anesthesia History - director of securities and real estate Hx Hospitalization No 08/01/24 09:26 Any Problems With Anesthesia Yes: SLOW TO AWAKEN 08/01/24 09:26 Cholinesterase deficiency No 08/01/24 09:26 You/Your Family Experience No 08/01/24 09:26 fever (hyperthermia) with Relationship Recent Exposure to Contagious No 08/15/24 09:48 Disease Does patient have nerve No 08/01/24 09:26 stimulator Patient instructed to have device shut off --Does patient have Pacemaker No 08/15/24 09:48 or ICD? When Was Last Pacemaker Check QUESTION #4 FULL TEXT: You/Your Family Experience fever (hyperthermia) with Anesthesia Last Oral Intake Last Oral intake: Last Oral Intake NPO since 17:00 08/15/24 09:48 Meds taken in AM with sips of water? 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 Female No 08/01/24 09:26 HX of Motion Sickness No 08/01/24 09:26 HX of N/V After Surgery No 08/01/24 09:26 Non-Smoker Yes 08/01/24 09:26 Duration of Surgery greater Yes 08/01/24 09:26 than 60 minutes Number of Risk Factors 2 08/01/24 09:26 PONV Score Moderate Risk 08/01/24 09:26 Height & Weight Height & Weight: Anesthesia: Height & Weight Height 5 ft 9 in 08/15/24 09:48 Weight: 83.3 kg 08/15/24 09:48 Body Mass Index (BMI) 27.1 08/15/24 09:48 Respiratory Assessment Respiratory Assessment - director of securities and real estate: Respiratory Tract Infection Hx - 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 Has anyone observed you stop breathing during sleep? STOP Results Positive 08/01/24 09:26 QUESTION #5 FULL TEXT : Do you snore loudly (louder than talking or can be heard through closeddoors)? 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 Specify any problems Hx of Preganancy in last 3 N/A 08/01/24 09:26 Months Nurse Filling Out Transfusion DSCHRIBER 08/01/24 09:26 & Questions: Date: 08/01/24 08/01/24 09:26 Time: 08/01/24 09:26 Patient unable to answer at this time (ie. 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 Hx Now No 08/01/24 09:26 Gestational Age (in weeks): EDC: Hx Hx Para Hx Section SAB No 08/01/24 09:26 Active Medications Active Medications: Current Medications Generic Name Dose Route Start Last Admin Trade Name Freq PRN Reason Stop Dose Admin Lactated Ringer's 1,000 mls @ 15 mls/hr 08/15/24 09:15 08/15/24 10:06 IV 15 mls/hr .Q48H JS Administration Sodium Chloride 1,000 mls @ 1 mls/hr 08/15/24 09:10 IV .Q48H PRN Saline Flush PFSH Medical History Anxiety Generalized psoriasis Cervical arthritis Syncope Thyroid disease Anemia CPAP (continuous positive airway pressure) dependence History of pain when walking History of echocardiogram Cardiology follow-up encounter History of heart attack Preop cardiovascular exam Supraventricular tachycardia Transient complete heart block Loss of hearing Wears glasses Cancer History of renal disease High cholesterol Dietary restriction Difficulty swallowing Non-smoker Neuropathy BPH (benign prostatic hyperplasia) Cholecystitis Hypothyroid Diabetes mellitus Leg cramping Hypertension Home Medications ?Medication ?Instructions ?Recorded ?Last Taken ?Type vyocgdka-bdg-vbsck acid 0.4 1 ea PO DAILY SUPPLEMENT' 01/08/13 08/14/24 History mg-lycopene 300 mcg-lutein 250 mcg tablet (Centrum Silver) potassium citrate 10 mEq (1,080 1,080 mg PO DAILY SUPP LEMENT 05/24/15 08/14/24 History mg) tablet,extended release (Urocit-K 10) fenofibrate nanocrystallized 145 145 mg PO DAILY DANIEL STEROL 10/19/17 08/14/24 History mg tablet ezetimibe 10 mg tablet 10 mg PO DAILY cholesterol 0 12/06/22 08/14/24 History vit C 250 mg-vit E 90 mg-zinc 40 1 tab PO BID eye heal th 12/06/22 08/14/24 History mg-copper 1 si-ygvyqa-jkjgbd capsule (PreserVision AREDS-2) losartan 100 mg tablet 100 mg PO DAILY blood pressu re 04/10/23 08/15/24 History aspirin 81 mg tablet,delayed 81 mg PO DAILYCM heart he alth 90 04/13/23 08/15/24 Rx release days #90 tabs clopidogrel 75 mg tablet 75 mg PO DAILY anti platelet #90 04/13/23 08/15/24 Rx tabs glipizide 5 mg tablet 5 mg PO DINNER diabetes 04/0608/14/24 History THERAWORX See Rx Instructions .Route . COMPLEX 05/18/23 Unknown History levothyroxine 100 mcg tablet 100 mcg PO MOTUWETHFRSA t hyroid 05/18/23 08/15/24 History metformin 1,000 mg tablet 1,000 mg PO BID DIABETES 08/14/24 History metoprolol tartrate 25 mg tablet 25 mg PO BID #180 tab s 06/07/23 08/15/24 Rx pravastatin 20 mg tablet 20 mg PO QHS #90 tabs 08/14/24 Rx omega-3 fatty acids 1,000 mg 1,000 mg PO BID 06/23/24 08/14/24 History capsule levothyroxine 100 mcg capsule 150 mcg PO GONZALES 08/01/24 0 08/13/24 History Allergy/AdvReac Type Severity Reaction Status Date / Time Ztdfbii-KXX-OsD Reductase AdvReac leg cramps Verified 08/15/24 09:41 Inhibitor (Ygvzqkn-Kfh-Bve Reductase Inhibitor) Surgical History Hx of oral surgery Hx of cystoscopy History of coronary artery stent placement Hx of colonoscopy Stented coronary artery (~04/10/23) Hx of cardiac catheterization (~04/10/23) Hx of total knee replacement S/P laparoscopic cholecystectomy History of tonsillectomy and adenoidectomy H/O prostatectomy Social History household members: spouse current occupational status: retired Smoking Status: Never smoker alcohol intake: never substance use type: does not use caffeine: No Addt'l Information Additional Findings: Echo cardiogram EF 55%, diastolic grade 1 Review of Systems (Anesthesia) ROS Narrative System reviewed and no additional complaints, except as documented. Physical Exam Const alert and oriented x3 HEENT dentition normal Resp normal respiratory effort Auscultation: clear to auscultation bilaterally Cardio regular rate and regular rhythm Neuro oriented x3 and moves all extremities 08/15/24 1031 MD> Date _ Ian Damon MD Cosigner Signature: Date CC: ~ Signed [facility]04-03-2025 Radiology Diagnostic study note [facility] Imaging Services [address] [place], [place] [id number] CTA Head AND Neck W/ Contrast MR#: [id number] Acct: [id number] Name: SINDY GREENFIELD Rep #: [id number] : 1950 M 74 From: James Steen MD PCP: JOCELINE Morejon Status: REG CLI Study:CTA Head AND Neck W/ Contrast Date of E xam: 07/06/24 Exam# [id number] Ordering Dr: Santiago Mathews PROCEDURE: CTA HEAD AND NECK W/ CONTRAST 07/06/2024 REASON FOR EXAM: SEVERE R ICA STENOSIS TECHNIQUE: CTA HEAD AND NECK WITH IV CONTRAST: Coronal and Sagittal reconstruction series were provided. 3D, 3D post processing, 3D reconstructions, Maximum intensity projection (MIPs) Volume rendering and Shaded surface rendering was provided. CONTRAST: Isovue 370 VOLUME: 75 mL mL One or more dose reduction techniques were used (e.g., Automated exposure control, adjustment of the mA and/or kV according to patient size, use of iterative reconstruction technique). RADIATION DOSE SUMMARY: CTDlvol: 19.97 mGy DLP: 1662.82 mGycm COMPARISON: None FINDINGS: AORTIC ARCH: Atherosclerotic plaque formation of the aortic arch. Calcific plaques at the origin ofthe right brachiocephalic artery. EXTRACRANIAL CAROTIDS: Mild calcific plaques in the left common carotid artery. RIGHT ICA Maximum stenosis (NASCET): Calcific plaque at the origin of the right internal carotid artery causing high-grade stenosis/almost occlusion. LEFT ICA Maximum stenosis (NASCET): 50-60% narrowing. % SKULL BASE: Unremarkable INTRACRANIAL VASCULATURE Cerebral Arteries: Unremarkable [place]: Unremarkable Venous Drainage: Unremarkable VERTEBROBASILAR SYSTEM: Unremarkable CT/CTA Head AND Neck W/ Contrast IMPRESSION: High-grade stenosis at the origin of the right internal carotid artery. 50-60% narrowing at the origin of the left internal carotid artery. Reading Location: [facility] CC: JOCELINE Zaidi; TORO Grimm ~ Shell Grader: Signed [facility]03-05-2025 Evaluation note* Diagnosis Onset Date Resolution Status Admit Date Lightheaded acute June 07 9:00am Preop cardiovascular exam acute June 07, 2024 9:00am Atherosclerotic cardiovascul ar disease chronic June 07, 2024 9:00am Dyslipidemia chronic June 07, 2 025 9:00am Hypertension June 07, 2 025 9:00am SVT (supraventricular tachycardia) chronic June 07, 2024 9:00am Carotid artery disease acute [facility] 2024 9:11am Stenosis of right carotid artery chr onic July 13, 2024 2:50pm Stenosis of right carotid artery chr onic August 15, 2024 1:03pm Stenosis of right carotid artery chr onic August 30, 2024 1:09pm [facility] Work Phone: 1(740) 542-622701-16-2025 Evaluation note* Diagnosis Onset Date Resolution Status Admit Date Cervical myelopathy acute 2024 9:38am Dysphagia acute April 20, 2024 9:38am Lightheaded acute June 07 9:00am Preop cardiovascular exam acute June 07, 2024 9:00am Atherosclerotic cardiovascul ar disease June 07, 2024 9:00am Dyslipidemia June 07, 2 025 9:00am Hypertension June 07, 2 025 9:00am SVT (supraventricular tachycardia) June 07, 2024 9:00am [facility] Work Phone: 1(637) 978-125701-16-2025 Evaluation note* Diagnosis Onset Date Resolution Status Admit Date Cervical myelopathy acute 2024 9:38am Dysphagia acute April 20, 2024 9:38am Lightheaded acute June 07 9:00am Preop cardiovascular exam acute June 07, 2024 9:00am Atherosclerotic cardiovascul ar disease June 07, 2024 9:00am Dyslipidemia June 07, 2 025 9:00am Hypertension June 07, 2 025 9:00am SVT (supraventricular tachycardia) June 07, 2024 9:00am Carotid artery disease acute [facility] 2024 9:11am [facility] Work Phone: 1([phone]) 669-893901-16-2025 Evaluation note* Diagnosis Onset Date Resolution Status Admit Date Cervical myelopathy acute 2024 9:38am Dysphagia acute April 20, 2024 9:38am Lightheaded acute June 07 9:00am Preop cardiovascular exam acute June 07, 2024 9:00am Atherosclerotic cardiovascul ar disease chronic June 07, 2024 9:00am Dyslipidemia chronic June 07, 025 9:00am Hypertension chronic June 07, 025 9:00am SVT (supraventricular tachycardia) chronic June 07, 2024 9:00am Carotid artery disease acute [facility] 2024 9:11am Stenosis of right carotid artery chr on July 13, 2024 2:50pm Stenosis of right carotid artery chr on August 15, 2024 1:03pm [facility] Work Phone: 1([phone]) 509-471207-10-2024 History of Present illness Narrative* Vivienne Vu LPN - 10/13/2023 9:09 AM EDT Spoke with pt and he has changed providers to Mita Zaidi NP with [facility] Vivienne Vu LPN [facility] Progress note Author Markell Humphrey [facility] May 19, 2023 7:54am Note Date/Time May 19, 2023 7:54am [facility] Medical Records Department [address] [place] [address] Progress Note - Cardiology 05/19/2347 MR#: [id number] Acct: [id number] Name: SINDY GREENFIELD Rep #:[id number] : 1950 73 From: Markell Humphrey MD PCP: Mita Zaidi NP-C Status:ADM ALEK Location: [place] [address] Subjective Subjective The patient tolerated the addition of metoprolol 25 mg twice daily to his medical regiment. His heart rate has been between 55 and 70 on telemetry. He has an occasional blocked PAC. There was no recurrence of his supraventricular tachycardia. The patient denies any syncope or near syncope since admission he denies any chest pains PND or orthopnea. The patient is interested in returning to cardiovascular rehab as soon as possible. Objective Data Vital Signs: Vital Signs Temp Pulse Resp BP Pulse Ox O2 Del Method O2 Flow Rate 97.5 F L 74 16 125/74 H 98 Room Air 2 05/19/23 04:00 05/19/23 04:00 05/19/23 04:00 05/19/23 04:00 05/19/23 04:00 05/19/23 07:45 05/18/23 10:22 Oxygen Flow Rate (L/min) 2 Oxygen Delivery Method Room Air Weight: 179 lb 14.355 oz Body Mass Index (BMI) 26.5 Intake & Output: Intake and Output for Last 24 Hours 05/17/23 05/18/23 05/19/23 23:59 23:59 23:59 Intake Total 1110 / 1350 480 / 480 Balance 1110 / 1350 480 / 480 Lab / Micro Data Attestation: I reviewed the patient's lab results. 05/18/23 10:08 05/19/23 06:25 Labs: Laboratory Results - last 24 hr 05/18/23 10:08: WBC 6.1, RBC 4.27 L, Hgb 12.4 L, Hct 37.9 L, MCV 88.8, MCH 29.0,MCHC 32.7, RDW Std Deviation 43.6, RDW Coeff of [place] 13.5, Plt Count 307, MPV 10.6, Immature Gran % (Auto) 0.200, Neut % (Auto) 59.8, Lymph % (Auto) 23.9, [place] % (Auto) 8.8, Eos % (Auto) 5.7 H, Baso % (Auto) 1.6 H, Absolute Neuts (auto) 3.7, Absolute Lymphs (auto) 1.46, Nucleated RBC % 0, PT 13.8, INR 1.1, APTT 27.9, Sodium 140, Potassium 3.9, Chloride 109 H, Carbon Dioxide 23.0, AnionGap 8, BUN 29 H, Creatinine 1.90 H, Estim Creat Clear Calc 34.11, Est GFR (MDRD)Af Amer 45 L, Est GFR (MDRD) Non-Af 37 L, BUN/Creatinine Ratio 15.3, Glucose 244H, Calcium 9.6, Magnesium 2.2, Troponin I High Sens 41, TSH 3.60 05/18/23 12:37: Troponin I High Sens 839 H* 05/19/23 06:25: Sodium 143, Potassium 4.1, Chloride 109 H, Carbon Dioxide 24.0, Anion Gap 10, BUN 31 H, Creatinine 1.51 H, Estim Creat Clear Calc 42.92, Est GFR(MDRD) Af Amer 58 L, Est GFR (MDRD) Non-Af 48 L, BUN/Creatinine Ratio 20.5 H, Glucose 118 H, Calcium 9.1 Rhythm Strip Rhythm Strip: Sinus Rhythm Rate: 60 Ectopy: PAC(s) (Occasional blocked PACs noted on rhythm strip. No significant heart block noted.) Cardiology Labs/Tests 05/18/23 10:08: WBC 6.1, RBC 4.27 L, Hgb 12.4 L, Hct 37.9 L, MCV 88.8, MCH 29.0,MCHC 32.7, Plt Count 307, MPV 10.6, Immature Gran % (Auto) 0.200, Neut % (Auto) 59.8, Lymph % (Auto) 23.9, [place] % (Auto) 8.8, Eos % (Auto) 5.7 H, Baso % (Auto) 1.6 H, Absolute Neuts (auto) 3.7, Nucleated RBC % 0, PT 13.8, INR 1.1, APTT 27.9, Sodium 140, Potassium 3.9, Chloride 109 H, Carbon Dioxide 23.0, Anion Gap 8, BUN 29 H, Creatinine 1.90 H, Est GFR (MDRD) Af Amer 45 L, Est GFR (MDRD) Non-Af 37 L, BUN/Creatinine Ratio 15.3, Glucose 244 H, Calcium 9.6, Magnesium 2.2 05/19/23 06:25: Sodium 143, Potassium 4.1, Chloride 109 H, Carbon Dioxide 24.0, Anion Gap 10, BUN 31 H, Creatinine 1.51 H, Est GFR (MDRD) Af Amer 58 L, Est GFR (MDRD) Non-Af 48 L, BUN/Creatinine Ratio 20.5 H, Glucose 118 H, Calcium 9.1 Rhythm: EKG: ECHO: Stress Test: Cardiac Cath: PCI: CT Surgery: Holter monitor: EPS: PPM: CXR: Chest CT Scan: Radiography Diagnostic Testing: Radiology Impression Chest X-Ray 05/18/23 10:16 IMPRESSION: No acute abnormality is present. Electronically Signed: Bharath Steen MD at 11:07 EST , Physical Exam Const oriented x3 HEENT normocephalic Eyes EOMs intact bilaterally Neck no JVD and no carotid bruits Chest inspection of chest normal Resp normal respiratory effort and clear to auscultation bilaterally Cardio regular rate, regular rhythm, S1 normal heart sound, S2 normal heart sound, no murmurs, no rub and no gallops GI normal to inspection, nondistended, normoactive bowel sounds and soft to palpation Extremity no pedal edema Neuro Neuro Narrative: Alert and oriented x 3 Psych mental status grossly normal Assessment & Plan Assessment/Plan (1) Supraventricular tachycardia: PLAN: The SVT has not recurred on metoprolol 25 mg twice daily. The patient's had no significant heart block he has occasional PACs that are blocked. The heart rate has been from 55-70 since his admission on beta-gian therapy. The patient scheduled for cardiovascular rehab on 05/21/2023. I have asked him to have them call me when they hooked him up to telemetry to get a rhythm strip to make certain he is maintaining his current rhythm and he appropriately increases his heart rate with activity. (2) Atherosclerotic cardiovascular disease: PLAN: The patient is secondary risk factors are being managed. Blood pressure is well-controlled he is tolerating his current medical regimen. His statin therapy will be addressed when he is seen in the office in 2 weeks by our advanced practitioner. There is a question of what dose statin he should be on. (3) Transient complete heart block: PLAN: The patient had transient complete heart block on beta-gian therapy early after his recent acute inferior wall myocardial infarction. I feel this was exacerbated by the expected AV crystal edema related to his occluded mid rightcoronary artery. It appears that he is now tolerating beta-gian therapy and this would be the best option to treat his SVT. We will reevaluate him when he is hooked up in cardiovascular rehab he goes there 3 days a week his next visit is in 48 hours. (4) Hyperlipemia: QUALIFIERS: Hyperlipidemia type: mixed hyperlipidemia Qualified Code(s): E78.2 - Mixed hyperlipidemia PLAN: Lipids will be reevaluated after he seen in the office in 2 weeks we will make a decision then about the best treatment option for him given his history of myalgias in the past. PLAN: Plan From a cardiovascular standpoint the patient can be discharged to home today. He should follow-up with the cardiovascular rehab program on May 21. He will have telemetry performed at that point in time and they will call me with the results. The patient should be seen in 2 weeks in our office with advanced practitioner or me. Charges/Coding Visit Charges Inpatient E&M: 05667 Subs Hosp L3 05/19/23 0754 <Electronically signed by Markell Humphrey MD> Cosigner Signature (if applicable): CC: ~ Signed [facility] Work Phone: 1(933) 844-958202-13-2024 Discharge summary Author Senthil Hsieh [facility] May 18, 2023 5:16pm Note Date/Time May 18, 2023 10:16am [facility] Medical Records Department [address] [place] [address] Emergency Department Summary 05/18/23 MR#: [id number] Acct: [id number] Name: SINDY GREENFIELD Rep #:[id number] : 1950 73 From: Senthil Lock PCP: JOCELINE Morejon Status:ADM ALEK Location: [address] History of Present Illness Chief Complaint: Dizziness Informant: patient Onset/Context/Timing Onset: Today Context: Sudden Onset Timing: Continuous Quality: Lightheaded Location: Generalized Worsened by: Nothing Relieved by: Nothing Narrative Narrative: Patient presents with dizziness that began this morning. Patient states he tooka hot shower and when he was done he started feeling dizzy. Patient states he felt like he was lightheaded. Patient denies any chest pain. Patient admits tosome palpitations. Patient admits to some shortness of breath. Patient denies any nausea or vomiting. Patient denies any diaphoresis. Patient denies any back pain or headache. Patient denies any recent fevers or chills. Patient hada similar episode a few weeks ago but he was in a dark room with some flashing lights. Patient states he had a recent myocardial infarction and had stents placed in April of this year. [facility] Medical History BPH (benign prostatic hyperplasia) Cancer Cholecystitis Diabetes mellitus Dietary restriction Difficulty swallowing High cholesterol History of renal disease Hypertension Hypothyroid Leg cramping Loss of hearing Neuropathy Non-smoker Sleep apnea treated with continuous positive airway pressure (CPAP) Wears glasses Home Medications pzhjixup-rfm-ylfsi acid 0.4 mg-lycopene 300 mcg-lutein 250 mcg tablet (Centrum Silver) 1 ea PO DAILY SUPPLEMENT' 01/08/13 [History Last Taken 05/18/23] omega 3-dha 60 mg-epa 90 mg-fish oil 500 mg capsule, delayed release (Fish Oil) 1,000 mg PO BID supplement 05/24/15 [History Last Taken 05/18/23] potassium citrate 10 mEq (1,080 mg) tablet,extended release (Urocit-K 10) 1,080 mg PO DAILY SUPPLEMENT 05/24/15 [History Last Taken 05/18/23] fenofibrate nanocrystallized 145 mg tablet 145 mg PO DAILY CHOLESTEROL 10/19/17 [History Last Taken 05/18/23] ezetimibe 10 mg tablet 10 mg PO DAILY 12/06/22 [History Last Taken 05/18/23] vit C 250 mg-vit E 90 mg-zinc 40 mg-copper 1 vc-zcaare-btjxyv capsule (PreserVision AREDS-2) 1 tab PO BID eye health 12/06/22 [History Last Taken 05/18/23] cholecalciferol (vitamin D3) 50 mcg (2,000 unit) capsule (D3-2000) 50 mcg PO DAILY 02/11/23 [History Last Taken 05/18/23] losartan 100 mg tablet 100 mg PO DAILY 04/10/23 [History Last Taken 05/18/23] aspirin 81 mg tablet,delayed release 81 mg PO DAILYCM 90 days #90 tabs 04/13/23 [Rx Last Taken 05/18/23] clopidogrel 75 mg tablet 75 mg PO DAILY #90 tabs 04/13/23 [Rx Last Taken 05/18/23] glipizide 5 mg tablet 2.5 mg PO DINNER diabetes 04/26/23 [History Last Taken 05/17/23] THERAWORX See Rx Instructions .Route .COMPLEX 05/18/23 [History Last Taken Unknown] levothyroxine 100 mcg tablet 100 mcg PO DAILY thyroid 05/18/23 [History Last Taken 05/18/23] metformin 1,000 mg tablet 1,000 mg PO BID DIABETES 05/18/23 [History Last Taken 05/18/23] Allergy/AdvReac Type Severity Reaction Status Date / Time Xbadvzn-Jtm-Acj Reductase AdvReac leg cramps Verified 05/18/23 09:57 Inhibitor Surgical History H/O prostatectomy History of tonsillectomy and adenoidectomy Hx of cardiac catheterization (~04/10/23) Hx of colonoscopy Hx of total knee replacement S/P laparoscopic cholecystectomy Stented coronary artery (~04/10/23) Social History household members: spouse current occupational status: retired Smoking Status: Never smoker ROS ROS ED Constitutional Constitutional ED: Denies chills or fever(s) Eyes Eyes: Denies blurry vision or diplopia ENT ENT ED: Denies rhinorrhea or sore throat Cardiovascular Cardiovascular: Reports palpitations and racing heartbeat; Denies chest pain Respiratory/Chest Respiratory/Chest: Reports dyspnea; Denies cough Gastrointestinal Gastrointestinal: Denies nausea or vomiting Genitourinary Genitourinary ED: Denies dysuria or hematuria Musculoskeletal Musculoskeletal: Denies back pain or neck pain Integumentary Denies abscess or rash Neurologic Neurologic: Denies headache(s) or weakness Allergic/Immunologic Allergic/Immunologic ED: Denies mouth swelling or urticaria EXAM Physical Exam Const Vital Signs: 05/18/23 09:58 05/18/23 10:07 05/18/23 10:16 Temperature 97.6 F L Temperature Source Temporal Pulse Rate 129 H 191 H Respiratory Rate 20 H 14 Respiratory Effort Normal Non-Labored Respiratory Pattern Normal Blood Pressure 73/41 L 91/57 L Blood Pressure Mean 51 68 Pulse Ox 88 98 Oxygen Delivery Method Room Air Room Air Oxygen Flow Rate (L/min) 05/18/23 10:22 05/18/23 11:00 05/18/23 12:00 Temperature Temperature Source Pulse Rate 90 89 Respiratory Rate 16 14 Respiratory Effort Respiratory Pattern Blood Pressure 132/76 H 136/92 H Blood Pressure Mean 94 106 Pulse Ox 98 99 Oxygen Delivery Method Nasal Cannula Room Air Room Air Oxygen Flow Rate (L/min) 2 05/18/23 12:32 Temperature 97.6 F L Temperature Source Pulse Rate 89 Respiratory Rate 16 Respiratory Effort Respiratory Pattern Blood Pressure 130/76 H Blood Pressure Mean 94 Pulse Ox 99 Oxygen Delivery Method Oxygen Flow Rate (L/min) Positive well nourished and well developed General Appearance ED: well developed and NAD HEENT Reports moist mucous membranes Neck supple and no JVD Chest Wall inspection of chest normal and palpation of chest normal Resp normal respiratory effort and clear to auscultation bilaterally Cardio regular rhythm Rate: tachycardic GI non-tender and non-distended Palpation: soft Extremity normal to inspection General Extremety ED: Negative for edema or tenderness General Extremity: Negative for edema Neuro oriented x3, CN's II-XII intact bilaterally and no sensory deficits noted Sensorium / Orientation: alert Motor Exam: strength 5/5 throughout Psych mental status grossly normal MDM MDM MDM Narrative Medical decision making narrative: Differential diagnosis includes cardiac dysrhythmia, cardiac ischemia, electrolyte abnormality, anemia, hyperthyroidism, and hypomagnesemia. EKG will be obtained to assess for cardiac dysrhythmia and cardiac ischemia. CBC will beobtained to assess for leukocytosis and anemia. Basic metabolic profile will beobtained to assess for electrolyte abnormality and renal function. High-sensitivity troponin will be obtained to assess for cardiac ischemia. 2-hour repeat high-sensitivity troponin will be obtained to assess for ongoing cardiac ischemia. TSH will be obtained to assess for hypothyroidism and hyperthyroidism. Serum magnesium will be obtained to assess for hypomagnesemia. PT with INR and PTT will be obtained to assess for coagulopathy. Chest x-ray will be obtained to assess for pneumonia and pneumothorax. Lab Data Attestation: I reviewed the patient's lab results. Lab results narrative: CBC was reviewed. There is a slight anemia with a hemoglobin of 12.4 and hematocrit 37.9. Basic metabolic profile showed a slightly elevated BUN and creatinine of 29 and 1.9. These are consistent with prior results. Glucose [id number]. High-sensitivity troponin was reviewed and was normal at 41. Magnesium was reviewed and was normal at 2.2. TSH was reviewed and was normal at 3.6. PTwith INR and PTT were reviewed and were within normal limits. Labs: Laboratory Results - last 24 hr 05/18/23 05/18/23 10:08 12:37 WBC 6.1 RBC 4.27 L Hgb 12.4 L Hct 37.9 L MCV 88.8 MCH 29.0 MCHC 32.7 RDW Std Deviation 43.6 RDW Coeff of Tico 13.5 Plt Count 307 MPV 10.6 Immature Gran % (Auto) 0.200 Neut % (Auto) 59.8 Lymph % (Auto) 23.9 Beauregard % (Auto) 8.8 Eos % (Auto) 5.7 H Baso % (Auto) 1.6 H Absolute Neuts (auto) 3.7 Absolute Lymphs (auto) 1.46 Nucleated RBC % 0 PT 13.8 INR 1.1 APTT 27.9 Sodium 140 Potassium 3.9 Chloride 109 H Carbon Dioxide 23.0 Anion Gap 8 BUN 29 H Creatinine 1.90 H Estim Creat Clear Calc 34.11 Est GFR (MDRD) Af Amer 45 L Est GFR (MDRD) Non-Af 37 L BUN/Creatinine Ratio 15.3 Glucose 244 H Calcium 9.6 Magnesium 2.2 Troponin I High Sens 41 839 H* TSH 3.60 Radiography Chest X-Ray - ED: 1 View, Read by ED Physician, Read by Radiologist and No AcuteDisease Diagnostic Testing: Clinical Impression(s) from Imaging Studies Chest X-Ray 05/18/23 10:16 IMPRESSION: No acute abnormality is present. Electronically Signed: Bharath Steen MD at 11:07 EST , Portable 1 view chest x-ray was obtained. On my independent interpretation, lung pierson are clear. There is normal cardiac silhouette. Bony thorax is normal. There is no acute process noted. Radiologist also interpreted the x-ray and agrees. EKG Initial EKG: Attestation: I personally reviewed and interpreted this EKG as follows: Interpretation: SVT Comments: Initial EKG was obtained. On my independent interpretation, it shows supraventricular tachycardia with a rate of 190. QRS interval was prolonged at 144 ms. QTc interval was 465 ms. There is left axis deviation at -60. There is some ST depression in leads V2, V3, and V4 which are likely rate related. Prior EKG tracings: available for review Prior: Changed (The wide-complex and SVT is new compared to previous EKG dated 04/12/2023) Follow-up EKG: Attestation: I personally reviewed and interpreted this EKG as follows: Interpretation: Sinus Rhythm (With first-degree AV block with a rate of 86) and Non-Specific ST Changes Comments: Repeat EKG was obtained. On my independent interpretation, it shows sinus rhythm with first-degree AV block with a rate of 86. MI interval was 260 ms. QRS interval was normal at 100 ms. QTc interval was normal at 418 ms. There is left axis deviation at -29. There are some nonspecific ST-T wave changes in the inferior and lateral leads. Prior EKG tracings: available for review Prior: Unchanged (04/12/2023) Management Discussion w/another healthcare provider: Hospitalist (Dr. Mcclelland) and Artificial Teeth Inspector (Dr. Humphrey) Treatment and Re-Evaluation :: Patient was given a dose of adenosine 6 mg. Patient converted back to a normal sinus rhythm. Patient was feeling better. Patient then went back into the wide-complex supraventricular tachycardia. Patient was given a dose of 12 mg ofadenosine. Patient converted again back to a normal sinus rhythm. Patient was given aspirin. Patient was given IV fluids. Patient is feeling better on reevaluation. Case was discussed with Dr. Humphrey from cardiology. He recommended starting the patient on metoprolol tartrate 50 mg twice daily and observing the patient in the hospital for 24 hours. If the patient remains in anormal sinus rhythm, he can be discharged tomorrow. Case will be discussed withthe hospitalist for admission. Patient will be admitted to PCU for observation. Patient understood and was agreeable with the plan. All questions were answered. Critical Care Time Critical Care Time: Yes Critical care time (excluding procedures): 30-74 minutes (34), Including time spent:, Discussing w/Patient &/or Family/Boat Washer, Discussing w/Consultants, Arranging Admission or Transfer and Performing Direct Patient Care at Bedside Discharge Plan Dx/Rx/DC Orders Clinical Impression: Supraventricular tachycardia, Coronary artery disease Disposition Disposition: [facility] Discharge Date/Time: 05/18/23 12:55 What to do if you have Problems For any increased pain, shortness of breath, bleeding, nausea or vomiting, chestpain, or any unexpected problems, contact your Primary Care Provider. Call [employer] ([phone]) or report to the closest Emergency Room. Call 911 if necessary. 05/18/23 1716 <Electronically signed by Senthil Hsieh DO> Cosigner Signature (if applicable): CC: JOCELINE Zaidi ~ Signed [facility] Work Phone: [phone] 977-997402-13-2024 History and physical note Author Gil Mcclelland [facility] May 18, 2023 4:58pm Note Date/Time May 18, 2023 4:47pm [facility] Medical Records Department [address] [place] [address] H&P Exam - Hospitalist 05/18/23 1645 MR#: [id number] Acct: [id number] Name: SINDY GREENFIELD Rep #:[id number] : 1950 73 From: Gil Mcclelland DO PCP: JOCELINE Morejon Status:ADM ALEK Location: PCU [place] [address] HPI - General General Date of Admission: 05/18/23 Date of Service: 05/18/23 Chief Complaint: Supraventricular tachycardia HPI Narrative SINDY GREENFIELD, is a 73 M who presents to the emergency room at [facility] with complaints of increased heart rate along with dizziness today. Patient denied any chest pain, patient was treated for a STEMI on April 10, 2023. Lab was obtained, white blood cell count was unremarkable, hemoglobin wasslightly low at 12.4, creatinine was elevated at 1.9 and glucose was 244. Patient's troponin was unremarkable chest x-ray showed no acute abnormality. EKG was performed, patient appeared to be in SVT at a rate of 190. Patient was given IV adenosine 6 mg, he converted back to normal sinus rhythm, patient then went back into SVT and was given a dose of 12 mg of adenosine, patient then converted back to normal sinus rhythm. Case was discussed with cardiology initially, they recommended placing the patient on a beta-gian but it appearsthat the patient had an episode of heart block after his STEMI in April and hewas taken off beta-gian. Cardiology came to the emergency room to examine the patient and discussed treatment options with him, it was decided that we would admit the patient to telemetry on PCU and administer low-dose metoprolol and observe the patient's heart rhythm. [facility] Medical History BPH (benign prostatic hyperplasia) Cancer Cholecystitis Diabetes mellitus Dietary restriction Difficulty swallowing High cholesterol History of renal disease Hypertension Hypothyroid Leg cramping Loss of hearing Neuropathy Non-smoker Sleep apnea treated with continuous positive airway pressure (CPAP) Wears glasses Home Medications haktmcrc-vrl-hzmzp acid 0.4 mg-lycopene 300 mcg-lutein 250 mcg tablet (Centrum Silver) 1 ea PO DAILY SUPPLEMENT' 01/08/13 [History Last Taken 05/18/23] omega 3-dha 60 mg-epa 90 mg-fish oil 500 mg capsule, delayed release (Fish Oil) 1,000 mg PO BID supplement 05/24/15 [History Last Taken 05/18/23] potassium citrate 10 mEq (1,080 mg) tablet,extended release (Urocit-K 10) 1,080 mg PO DAILY SUPPLEMENT 05/24/15 [History Last Taken 05/18/23] fenofibrate nanocrystallized 145 mg tablet 145 mg PO DAILY CHOLESTEROL 10/19/17 [History Last Taken 05/18/23] ezetimibe 10 mg tablet 10 mg PO DAILY 12/06/22 [History Last Taken 05/18/23] vit C 250 mg-vit E 90 mg-zinc 40 mg-copper 1 ft-ziqiui-gqafvp capsule (PreserVision AREDS-2) 1 tab PO BID eye health 12/06/22 [History Last Taken 05/18/23] cholecalciferol (vitamin D3) 50 mcg (2,000 unit) capsule (D3-2000) 50 mcg PO DAILY 02/11/23 [History Last Taken 05/18/23] losartan 100 mg tablet 100 mg PO DAILY 04/10/23 [History Last Taken 05/18/23] aspirin 81 mg tablet,delayed release 81 mg PO DAILYCM 90 days #90 tabs 04/13/23 [Rx Last Taken 05/18/23] clopidogrel 75 mg tablet 75 mg PO DAILY #90 tabs 04/13/23 [Rx Last Taken 05/18/23] glipizide 5 mg tablet 2.5 mg PO DINNER diabetes 04/26/23 [History Last Taken 05/17/23] THERAWORX See Rx Instructions .Route .COMPLEX 05/18/23 [History Last Taken Unknown] levothyroxine 100 mcg tablet 100 mcg PO DAILY thyroid 05/18/23 [History Last Taken 05/18/23] metformin 1,000 mg tablet 1,000 mg PO BID DIABETES 05/18/23 [History Last Taken 05/18/23] Allergy/AdvReac Type Severity Reaction Status Date / Time Hmzjyel-RBM-TmM Reductase AdvReac leg cramps Verified 05/18/23 09:57 Inhibitor [Nldqhiq-Ewi-Fdk Reductase Inhibitor] Surgical History H/O prostatectomy History of tonsillectomy and adenoidectomy Hx of cardiac catheterization (~04/10/23) Hx of colonoscopy Hx of total knee replacement S/P laparoscopic cholecystectomy Stented coronary artery (~04/10/23) Social History household members: spouse current occupational status: retired Smoking Status: Never smoker ROS Constitutional Constitutional: Denies anorexia, change in weight, fever(s), night sweats or weakness Eyes Eyes: Denies blurry vision, change in vision, discharge from eye(s) or eye pain Cardiovascular Cardiovascular: Reports lightheadedness, palpitations and rapid heart rate; Denies chest pain, claudication or edema Respiratory/Chest Respiratory/Chest: Denies cough, hemoptysis, shortness of breath at rest or shortness of breath with exertion Gastrointestinal Gastrointestinal: Denies abdominal pain, constipation, diarrhea, hematemesis, hematochezia, melena, nausea or vomiting Genitourinary Genitourinary: Denies dysuria, hematuria, urinary frequency, urinary hesitancy, urinary incontinence or urinary urgency Musculoskeletal Musculoskeletal: Denies back pain, joint pain, joint stiffness, joint swelling, myalgias or neck pain Neurologic Neurologic: Denies abnormal gait, abnormal speech, dizziness, focal weakness, headache(s), loss of vision, numbness, other visual disturbances, paresthesias, syncope or tingling Psychiatric Psychiatric: Denies anxiety, cognitive impairment, depression, irritability, mood swings or suicidal ideation Endocrine Endocrinology: Denies change in body appearance, cold intolerance, excessive sweating, heat intolerance, polydipsia or polyuria Hematologic/Lymphatic Hematologic/Lymphatic: Denies none, anemia, easy bleeding, easy bruising or lymphadenopathy Allergic/Immunologic Allergic/Immunologic: Denies rhinitis, urticaria, eczemia or asthma Vital Signs Vital Signs Vital Signs: 05/18/23 09:58 05/18/23 10:07 05/18/23 10:16 Temperature 97.6 F L Temperature Source Temporal Pulse Rate 129 H 191 H Respiratory Rate 20 H 14 Respiratory Effort Normal Non-Labored Respiratory Depth Respiratory Pattern Normal Blood Pressure 73/41 L 91/57 L Blood Pressure Mean 51 68 Blood Pressure Source Blood Pressure Position Blood Pressure Location Pulse Ox 88 98 Oxygen Delivery Method Room Air Room Air Oxygen Flow Rate (L/min) 05/18/23 10:22 05/18/23 11:00 05/18/23 12:00 Temperature Temperature Source Pulse Rate 90 89 Respiratory Rate 16 14 Respiratory Effort Respiratory Depth Respiratory Pattern Blood Pressure 132/76 H 136/92 H Blood Pressure Mean 94 106 Blood Pressure Source Blood Pressure Position Blood Pressure Location Pulse Ox 98 99 Oxygen Delivery Method Nasal Cannula Room Air Room Air Oxygen Flow Rate (L/min) 2 05/18/23 12:32 05/18/23 13:27 05/18/23 13:30 Temperature 97.6 F L 97.7 F L Temperature Source Oral Pulse Rate 89 77 Respiratory Rate 16 18 Respiratory Effort Normal Non-Labored Respiratory Depth Normal Respiratory Pattern Normal Blood Pressure 130/76 H 137/76 H Blood Pressure Mean 94 96 Blood Pressure Source Monitor Blood Pressure Position Semi-Fowlers Blood Pressure Location Left Arm Pulse Ox 99 100 Oxygen Delivery Method Room Air Room Air Oxygen Flow Rate (L/min) Weight Weight: 81.6 kg Body Mass Index (BMI) 26.5 Physical Exam Const alert, oriented x3, no apparent distress, average body habitus and healthy appearing General Appearance: cooperative, well kempt and well developed Orientation / Consciousness: awake, oriented to person, oriented to place and oriented to time HEENT normocephalic, head/scalp atraumatic, hearing grossly normal bilaterally and moist oral mucous membranes Eyes PERRL, EOMs intact bilaterally and conjunctivae normal Neck supple, no JVD, thyroid normal and no carotid bruits General: trachea midline Resp normal respiratory effort, no retractions, no use of accessory muscles and clearto auscultation bilaterally Auscultation: Negative for rales, rhonchi or wheezes Cardio regular rate, regular rhythm, S1 normal heart sound, S2 normal heart sound, no murmurs, no rub and no gallops GI normal to inspection, nondistended, normoactive bowel sounds, soft to palpation,non-tender and non-distended Extremity no clubbing, cyanosis or edema Skin no rashes or lesions noted General Skin Exam: no breakdown Neuro oriented x3, CN's II-XII intact bilaterally, moves all extremities, no focal motor deficits and no sensory deficits noted Sensorium / Orientation: awake and alert Speech: speech normal Psych affect normal Results Lab / Micro Data 05/18/23 10:08 05/18/23 10:08 Labs: Laboratory Results - last 24 hr 05/18/23 10:08: WBC 6.1, RBC 4.27 L, Hgb 12.4 L, Hct 37.9 L, MCV 88.8, MCH 29.0,MCHC 32.7, RDW Std Deviation 43.6, RDW Coeff of Tico 13.5, Plt Count 307, MPV 10.6, Immature Gran % (Auto) 0.200, Neut % (Auto) 59.8, Lymph % (Auto) 23.9, Beauregard % (Auto) 8.8, Eos % (Auto) 5.7 H, Baso % (Auto) 1.6 H, Absolute Neuts (auto) 3.7, Absolute Lymphs (auto) 1.46, Nucleated RBC % 0, PT 13.8, INR 1.1, APTT 27.9, Sodium 140, Potassium 3.9, Chloride 109 H, Carbon Dioxide 23.0, AnionGap 8, BUN 29 H, Creatinine 1.90 H, Estim Creat Clear Calc 34.11, Est GFR (MDRD)Af Amer 45 L, Est GFR (MDRD) Non-Af 37 L, BUN/Creatinine Ratio 15.3, Glucose 244H, Calcium 9.6, Magnesium 2.2, Troponin I High Sens 41, TSH 3.60 05/18/23 12:37: Troponin I High Sens 839 H* Rhythm Strip Rhythm Strip: Sinus Rhythm Rate: 77 Imaging Radiology Impression Chest X-Ray 05/18/23 10:16 IMPRESSION: No acute abnormality is present. Electronically Signed: Bharath Steen MD at 11:07 EST , Assessment & Plan Assessment/Plan (1) Supraventricular tachycardia: PLAN: Plan 1. Supraventricular tachycardia-patient will be admitted to PCU telemetry, he was given 25 mg of metoprolol in the emergency room orally, he will be maintained on metoprolol tartrate 50 mg twice daily and he will be observed for any further arrhythmias or heart block. He will be seen in consultation by cardiology. #2 coronary artery disease-patient recently had stent placement in April 2023 after having a STEMI, I talked to him about taking a low-dose statin since he isnot on any statin, he states he would try a low-dose of Pravachol, I placed him on 20 mg daily. He will remain on aspirin and Plavix as well as Zetia. #3 hyperlipidemia-again patient has agreed to try low-dose of a statin in addition to Zetia, I told him that taking an xoct-jra-jomhokw fish oil supplement would not be beneficial #4 type 2 diabetes-patient is on low-dose glipizide, I do not feel the patient needs fingerstick blood sugars while he was hospitalized #5 essential hypertension-patient is to remain on his home medications, blood pressure will be monitored and medicines will be adjusted if necessary #6 hypothyroidism-patient is on Synthroid Total clinical time spent by myself addressing the patient's medical issues, reviewing all of his data, and collaborating with patient's care team: 55 minutes Charges/Coding Visit Charges Inpatient E&M: 60452 Init Hosp L2 05/18/23 1658 <Electronically signed by Gil Mcclelland DO> Cosigner Signature (if applicable): CC: JOCELINE Zaidi; Dr. Gil Mcclelland DO~ Signed [facility] Work Phone: [phone]) [phone] Consult note Author Markell Humphrey [facility] May 18, 2023 1:14pm Note Date/Time May 18, 2023 12:59pm [facility] Medical Records Department [address] [place] [address] Consultation - Cardiology 05/18/23 1258 MR#: [id number] Acct: [id number] Name: SINDY GREENFIELD Rep #:[id number] : 1950 73 From: Markell Humphrey MD PCP: JOCELINE Morejon Status:ADM ALEK Location: [place] [address]- 1 Assessment & Plan Assessment/Plan (1) Supraventricular tachycardia: PLAN: Patient presented with symptomatic supraventricular tachycardia heart rates documented between 140 and 190. The patient was near syncopal but did nothave true syncope. He converted with adenosine intravenously in the emergency department. The patient had a history of transient complete heart block early after his acute inferior wall microinfarction in early April 2023. He was therefore not on a beta-gian post infarct. At this point in time I recommend we trial him on Lopressor 25 mg twice daily and monitor him on telemetry. If the patient has an increasing heart block second- degree type II or greater we will need to consider discontinuing the beta-gian and trialing flecainide 50 mg twice daily. He will need to be monitored for 72 hours on telemetry to institute flecainide and his given situation. We also need to monitor his QT interval. If the patient is intolerant of flecainide the only other alternative would be permanent pacemakerimplantation and initiation of rate modulating beta-gian therapy. It is likely that the transient third-degree AV block was related to AV crystal edema in the face of an acute inferior wall infarct. He is now almost 6 weeks out from that infarct and his AV node should have completely recovered as far asit is going to. (2) Atherosclerotic cardiovascular disease: PLAN: Status post stenting of the mid right coronary artery April 10, 2023 LV function is known to be normal an EF of 55% with no wall motion abnormalities post procedure. There is an LAD 60% stenosis documented. The patient is asymptomatic from an anginal standpoint. (3) Transient complete heart block: PLAN: The transient complete heart block occurred early after his acute inferiorwall microinfarction in the face of beta-gian therapy. We will rechallenge him with beta-gian therapy to try and treat this supraventricular tachycardia. Please note #1 above for details (4) Hyperlipemia: QUALIFIERS: Hyperlipidemia type: mixed hyperlipidemia Qualified Code(s): E78.2 - Mixed hyperlipidemia PLAN: The patient is on his ezetimibe he is intolerant of statin therapy due to leg cramps. If his LDL is not adequate control consideration may be given for PSK 9 therapy. (5) Hypertension: QUALIFIERS: Hypertension type: unspecified Qualified Code(s): I10- Essential (primary) hypertension PLAN: Blood pressure is well-controlled on his current medical therapy. PLAN: Plan 1. Admit to telemetry for any initiation of beta-gian therapy. 2. If the patient is intolerant of beta-gian therapy due to bradycardia arrhythmias we would institute flecainide at 50 mg twice daily as initial starting dose versus consideration for permanent pacemaker implantation and subsequent beta-gian therapy. 3. We will address aggressive lipid therapy in the office at his next office visit. HPI Consult Data Date of Consult: 05/18/23 HPI Narrative Reason for Consultation: SVT with h/o CHB HPI Narrative: SINDY GREENFIELD, is a 73 M who presents with a supraventricular tachycardia with apparent conduction. The patient was converted in the emergency department with6 mg IV adenosine. He went into normal sinus rhythm and then reverted back intothe same supraventricular tachycardia. He was given additional adenosine and converted back to sinus rhythm and is maintaining sinus rhythm with a first-degree AV block. The patient presented after he got dizzy and lightheaded in the shower this morning and felt his heart pounding. He had a somewhat similar episode a few days prior at his [employer] concert with there were bright flashing lights. He did not have any seizure type activity and did not pass outeither time. He did have near syncope both episodes. The patient was recently hospitalized at [facility] where he hadan acute inferior wall infarct April 10, 2023. The patient had a totally occluded mid right coronary which was intervened upon and revascularized. Echocardiogram done later that date showed an ejection fraction of 55% with no regional wall motion abnormality. The patient was initially given beta-gian therapy but developed complete heart block early after his reperfusion. The beta-gian was discontinued. The patient denies any sanjeev syncope but he has had these 2 near syncopal spellsthat appear to be related to tachyarrhythmias. The patient does not have a prior history of tacky or bradycardia arrhythmias. Patient's is also seen in my office. [facility] Medical History BPH (benign prostatic hyperplasia) Cancer Cholecystitis Diabetes mellitus Dietary restriction Difficulty swallowing High cholesterol History of renal disease Hypertension Hypothyroid Leg cramping Loss of hearing Neuropathy Non-smoker Sleep apnea treated with continuous positive airway pressure (CPAP) Wears glasses Home Medications erpmtmmr-nzz-vgteb acid 0.4 mg-lycopene 300 mcg-lutein 250 mcg tablet (Centrum Silver) 1 ea PO DAILY SUPPLEMENT' 01/08/13 [History Last Taken 05/18/23] omega 3-dha 60 mg-epa 90 mg-fish oil 500 mg capsule, delayed release (Fish Oil) 1,000 mg PO BID supplement 05/24/15 [History Last Taken 05/18/23] potassium citrate 10 mEq (1,080 mg) tablet,extended release (Urocit-K 10) 1,080 mg PO DAILY SUPPLEMENT 05/24/15 [History Last Taken 05/18/23] fenofibrate nanocrystallized 145 mg tablet 145 mg PO DAILY CHOLESTEROL 10/19/17 [History Last Taken 05/18/23] ezetimibe 10 mg tablet 10 mg PO DAILY 12/06/22 [History Last Taken 05/18/23] vit C 250 mg-vit E 90 mg-zinc 40 mg-copper 1 po-emmyfm-bzvlbo capsule (PreserVision AREDS-2) 1 tab PO BID eye health 12/06/22 [History Last Taken 05/18/23] cholecalciferol (vitamin D3) 50 mcg (2,000 unit) capsule (D3-2000) 50 mcg PO DAILY 02/11/23 [History Last Taken 05/18/23] losartan 100 mg tablet 100 mg PO DAILY 04/10/23 [History Last Taken 05/18/23] aspirin 81 mg tablet,delayed release 81 mg PO DAILYCM 90 days #90 tabs 04/13/23 [Rx Last Taken 05/18/23] clopidogrel 75 mg tablet 75 mg PO DAILY #90 tabs 04/13/23 [Rx Last Taken 05/18/23] glipizide 5 mg tablet 2.5 mg PO DINNER diabetes 04/26/23 [History Last Taken 05/17/23] THERAWORX See Rx Instructions .Route .COMPLEX 05/18/23 [History Last Taken Unknown] levothyroxine 100 mcg tablet 100 mcg PO DAILY thyroid 05/18/23 [History Last Taken 05/18/23] metformin 1,000 mg tablet 1,000 mg PO BID DIABETES 05/18/23 [History Last Taken 05/18/23] Allergy/AdvReac Type Severity Reaction Status Date / Time Fanbrpo-XBP-XeH Reductase AdvReac leg cramps Verified 05/18/23 09:57 Inhibitor [Dupqjqu-Sxk-Pjn Reductase Inhibitor] Surgical History H/O prostatectomy History of tonsillectomy and adenoidectomy Hx of cardiac catheterization (~04/10/23) Hx of colonoscopy Hx of total knee replacement S/P laparoscopic cholecystectomy Stented coronary artery (~04/10/23) Social History household members: spouse current occupational status: retired Smoking Status: Never smoker ROS Constitutional Constitutional: Reports as per HPI Eyes Eyes: Reports systems reviewed and no addt'l complaints, except as documented ENT HEENT: Reports systems reviewed and no addt'l complaints, except as documented Cardiovascular Cardiovascular: Reports as per HPI Respiratory/Chest Respiratory/Chest: Reports systems reviewed and no addt'l complaints, except as documented Gastrointestinal Gastrointestinal: Reports systems reviewed and no addt'l complaints, except as documented Genitourinary Genitourinary: Reports systems reviewed and no addt'l complaints, except as documented Musculoskeletal Musculoskeletal: Reports systems reviewed and no addt'l complaints, except as documented Integumentary Integumentary: Reports systems reviewed and no addt'l complaints, except as documented Neurologic Neurologic: Reports systems reviewed and no addt'l complaints, except as documented Psychiatric Psychiatric: Reports systems reviewed and no addt'l complaints, except as documented Endocrine Endocrinology: Reports systems reviewed and no addt'l complaints, except as documented Hematologic/Lymphatic Hematologic/Lymphatic: Reports systems reviewed and no addt'l complaints, exceptas documented Allergic/Immunologic Allergic/Immunologic: Reports systems reviewed and no addt'l complaints, except as documented Physical Exam Const oriented x3 Orientation / Consciousness: awake HEENT normocephalic Eyes EOMs intact bilaterally Neck no JVD and no carotid bruits Chest inspection of chest normal Resp normal respiratory effort Auscultation: Negative for rhonchi or wheezes Cardio regular rate, regular rhythm, S1 normal heart sound, S2 normal heart sound, no murmurs, no rub and no gallops GI soft to palpation Extremity no pedal edema Skin no rashes or lesions noted Neuro Neuro Narrative: Alert and oriented x 3 Psych mental status grossly normal Risk Stratification Risk Stratification Applicable: Yes Age >/= 65: Yes >/= 3 CAD Risk Factors (HTN, HLD, DM, family hx of CAD, or current smoker): Yes Aspirin Use in the Past 7 Days: Yes Severe Angina (>/= episodes in 24 hours): No EKG ST Changes >/= 0.5mm: No Positive Cardiac Marker: No AHSAN Risk Stratification Score: 3 AHSAN % Risk: 13% Risk Charges/Coding Visit Charges Inpatient E&M: 05543 Init Hosp L2 Objective Data Vital Signs: Vital Signs Temp Pulse Resp BP Pulse Ox O2 Del Method O2 Flow Rate 97.6 F L 89 16 130/76 H 99 Room Air 2 05/18/23 12:32 05/18/23 12:32 05/18/23 12:32 05/18/23 12:32 05/18/23 12:05/18/23 12:00 05/18/23 10:22 Oxygen Flow Rate (L/min) 2 Oxygen Delivery Method Room Air Weight: 184 lb Body Mass Index (BMI) 27.1 Lab / Micro Data Attestation: I reviewed the patient's lab results. 05/18/23 10:08 05/18/23 10:08 Labs: Laboratory Results - last 24 hr 05/18/23 10:08: WBC 6.1, RBC 4.27 L, Hgb 12.4 L, Hct 37.9 L, MCV 88.8, MCH 29.0,MCHC 32.7, RDW Std Deviation 43.6, RDW Coeff of [place] 13.5, Plt Count 307, MPV 10.6, Immature Gran % (Auto) 0.200, Neut % (Auto) 59.8, Lymph % (Auto) 23.9, Beauregard % (Auto) 8.8, Eos % (Auto) 5.7 H, Baso % (Auto) 1.6 H, Absolute Neuts (auto) 3.7, Absolute Lymphs (auto) 1.46, Nucleated RBC % 0, PT 13.8, INR 1.1, APTT 27.9, Sodium 140, Potassium 3.9, Chloride 109 H, Carbon Dioxide 23.0, AnionGap 8, BUN 29 H, Creatinine 1.90 H, Estim Creat Clear Calc 34.11, Est GFR (MDRD)Af Amer 45 L, Est GFR (MDRD) Non-Af 37 L, BUN/Creatinine Ratio 15.3, Glucose 244H, Calcium 9.6, Magnesium 2.2, Troponin I High Sens 41, TSH 3.60 Rhythm Strip Rhythm Strip: Sinus Rhythm Rate: 77 Cardiology Labs/Tests 05/18/23 10:08: WBC 6.1, RBC 4.27 L, Hgb 12.4 L, Hct 37.9 L, MCV 88.8, MCH 29.0,MCHC 32.7, Plt Count 307, MPV 10.6, Immature Gran % (Auto) 0.200, Neut % (Auto) 59.8, Lymph % (Auto) 23.9, [place] % (Auto) 8.8, Eos % (Auto) 5.7 H, Baso % (Auto) 1.6 H, Absolute Neuts (auto) 3.7, Nucleated RBC % 0, PT 13.8, INR 1.1, APTT 27.9, Sodium 140, Potassium 3.9, Chloride 109 H, Carbon Dioxide 23.0, Anion Gap 8, BUN 29 H, Creatinine 1.90 H, Est GFR (MDRD) Af Amer 45 L, Est GFR (MDRD) Non-Af 37 L, BUN/Creatinine Ratio 15.3, Glucose 244 H, Calcium 9.6, Magnesium 2.2 Rhythm: EKG: ECHO: Stress Test: Cardiac Cath: PCI: CT Surgery: Holter monitor: EPS: PPM: CXR: Chest CT Scan: Radiography Diagnostic Testing: Radiology Impression Chest X-Ray 05/18/23 10:16 IMPRESSION: No acute abnormality is present. Electronically Signed: Bharath Steen MD at 11:07 EST , EKG Follow-up EKG: Attestation: I personally reviewed and interpreted this EKG as follows: Interpretation: Normal sinus rhythm heart rate 70 recent inferior wall myocardial infarction. 05/18/23 1314 <Electronically signed by Markell Humphrey MD> Cosigner Signature (if applicable): CC: JOCELINE Zaidi; Dr. Markell Humphrey MD~ Signed [facility] Work Phone: 1(967) 414-590001-09-2024 Progress note Author Romie Tuttle [facility] April 13, 2023 10:40am Note Date/Time April 13, 2023 7: 52am [facility] Medical Records Department [address] [place] [address] Progress Note - Hospitalist 04/13/23 0752 MR#: [id number] Acct: [id number] Name: SINDY GREENFIELD Rep #:[id number] : 1950 73 From: Romie Tuttle MD PCP: JOCELINE Morejon Status:ADM IN Location: ICU ICU10-1 Reason for Visit Reason for Visit: Diagnoses Hypothyroidism, unspecified (04/10/23) Other specified diabetes mellitus without complications (04/10/23) Hyperlipidemia, unspecified (04/10/23) Essential (primary) hypertension (04/10/23) ST elevation (STEMI) myocardial infarction involving right coronary artery (04/10/23) Atherosclerotic heart disease of [place] coronary artery without angina pectoris (04/10/23) Atherosclerotic heart disease of [place] coronary artery with unstable angina pectoris (04/10/23) Atrioventricular block, complete (04/10/23) Subjective Subjective 2D echo demonstrated EF of 55% with no regional wall motion abnormalities Objective Data Objective Data Vital Signs: Vital Signs Temp Pulse Resp BP Pulse Ox O2 Del Method O2 Flow Rate 97.8 F 83 15 155/78 H 100 Room Air 2 04/12/23 20:00 04/12/23 20:00 04/12/23 20:00 04/12/23 20:00 04/12/23 21:10 04/12/23 21:10 04/12/23 00:00 Oxygen Flow Rate (L/min) 2 Oxygen Delivery Method Room Air Weight: 80.2 kg Body Mass Index (BMI) 25.7 Intake & Output: Intake and Output for Last 24 Hours 04/11/23 04/12/23 04/13/23 23:59 23:59 23:59 Intake Total 600 / 600 120 / 120 Output Total 1100 / 1100 Balance 600 / 600 -980 / -980 Lab / Micro Data 04/12/23 05:40 04/12/23 05:40 Labs: Laboratory Results - last 24 hr 04/12/23 11:25: POC Glucose 130 H 04/12/23 16:43: POC Glucose 106 04/12/23 20:59: POC Glucose 118 H Radiography Diagnostic Testing: Radiology Impression Echocardiogram 04/12/23 08:00 Interpretation Summary Normal LV size. Left ventricular systolic function is normal. The estimated ejection fraction is 55 %. Bubble contrast study negative for right to left interatrial shunt. Mild concentric left ventricular hypertrophy. Stage 1 diastolic dysfunction. Ordering Physician: Bo Albert Referring Physician: Mita Zaidi Performed By: Mita Rocha, AGUSTIN, RVT Physical Exam Narrative GENERAL: cooperative HEENT: Atraumatic; normocephalic EYES; Anicteric, Normal Conjunctiva NECK; supple, normal thyroid, RESPIRATORY: Diminished to auscultation CARDIOVASCULAR: Regular S1 S2, GI: soft, normoactive bowel sounds, : No Renal angle tenderness; EXTREMITIES: No edema, no clubbing, MUSCULOSKELETAL: no muscle wasting NEURO: Awake; no lateralizing signs. SKIN: No Rash PSYCH; Flat affect Assessment & Plan Assessment/Plan (1) ST elevation (STEMI) myocardial infarction involving right coronary artery: (2) Coronary artery disease: QUALIFIERS: Associated angina: with unstable angina Coronary Disease-Associated Artery/Lesion type: [place] artery [place] vs. transplanted heart: [place] heart Qualified Code(s): I25.110 - Atherosclerotic heart disease of [place] coronary artery with unstable angina pectoris (3) Transient complete heart block: PLAN: Plan Patient is a 73-year-old gentleman who presented with chest pain diagnosed with acute ST segment elevation [place] underwent emergency left heart catheterization found to have a complete occlusion of the proximal RCA underwent aspiration thrombectomy, balloon angioplasty RIRI placement. Subsequently transferred to theintensive care unit 1. Acute STEMI -Patient taken emergently to the [facility] And Sensing Technician and was found to have a complete occlusion of proximal RCA and underwent aspiration thrombectomy, balloon angioplasty and RIRI. Patient has since been managed with guideline directed medical therapy. Echo ordered pending ? 04/12/2023; echo performed awaiting results ? 04/13/2023;2D echo demonstrated EF of 55% with no regional wall motion abnormalities 2. Transient heart block ? Secondary to patient proximal RCA occlusion patient has since been monitored continuously on telemetry ? 04/12/2023 did continue with continuous telemetry monitoring patient out of beta-blockers in view of his transient heart block per recommendations from cardiac 3. Diabetes mellitus type II -patient's oral hypoglycemics held. Placed on long acting insulin, Accu-Cheks a.c. and at bedtime and covered with sliding scale insulin 4. Hypothyroidism - Patient is on levothyroxine home dose continued 5. Obstructive sleep apnea ? Patient is on CPAP at night 6. Chronic kidney disease stage IIIa Patient baseline creatinine has been ranging between 1.3-1.76. Creatinine on admission was 1.53. Will continue with daily monitoring 7. DVT prophylaxis - On enoxaparin Time spent in the patient's overall evaluation,decision-making process, review of diagnostic data, adjustment of management, discussion with other providers, nursing nursing and ancillary staff involved in patient's care documentation, 35 Minutes Charges/Coding Visit Charges Inpatient E&M: 09924 Subs Hosp L2 04/13/23 1040 <Electronically signed by Romie Tuttle MD> Cosigner Signature (if applicable): CC: ~ Signed [facility] Work Phone: 1(916) 301-546401-08-2024 Progress note [facility] April 12, 2023 10:46am Note Date/Time April 12, 2023 7: 25am [facility] Medical Records Department [address] [place] [address] Progress Note - Hospitalist 04/12/23 0725 MR#: [id number] Acct: [id number] Name: SINDY GREENFIELD Rep #:[id number] : 1950 73 From: Romie Tuttle MD PCP: JOCELINE Morejon Status:ADM IN Location: ICU ICU10-1 Reason for Visit Reason for Visit: Diagnoses Hypothyroidism, unspecified (04/10/23) Other specified diabetes mellitus without complications (04/10/23) Hyperlipidemia, unspecified (04/10/23) Essential (primary) hypertension (04/10/23) ST elevation (STEMI) myocardial infarction involving right coronary artery (04/10/23) Atherosclerotic heart disease of [place] coronary artery without angina pectoris (04/10/23) Atherosclerotic heart disease of [place] coronary artery with unstable angina pectoris (04/10/23) Atrioventricular block, complete (04/10/23) Subjective Subjective Patient seen, did remain relatively stable. Plan is for patient to be transferred from the intensive care unit to progressive care unit. Patient scheduled to undergo 2D echo. Objective Data Objective Data Vital Signs: Vital Signs Temp Pulse Resp BP Pulse Ox O2 Del Method O2 Flow Rate 97.3 F L 73 16 150/60 H 96 Room Air 2 04/12/23 06:00 04/12/23 06:00 04/12/23 06:00 04/12/23 06:00 04/12/23 06:00 04/12/23 06:00 04/12/23 00:00 Oxygen Flow Rate (L/min) 2 Oxygen Delivery Method Room Air Weight: 80.4 kg Body Mass Index (BMI) 25.7 Intake & Output: Intake and Output for Last 24 Hours 04/10/23 04/11/23 04/12/23 23:59 23:59 23:59 Intake Total 2702.9 / 2942.9 600 / 600 120 / 120 Output Total 1200 / 1200 1100 / 1100 Balance 1502.9 / 1742.9 600 / 600 -980 / -980 Lab / Micro Data 04/12/23 05:40 04/12/23 05:40 Labs: Laboratory Results - last 24 hr 04/11/23 12:38: POC Glucose 134 H 04/11/23 17:06: POC Glucose 104 04/11/23 22:18: POC Glucose 142 H 04/12/23 05:40: WBC 8.6, RBC 4.07 L, Hgb 11.8 L, Hct 36.0 L, MCV 88.5, MCH 29.0,MCHC 32.8, RDW Std Deviation 44.4 H, RDW Coeff of [place] 13.7, Plt Count 243, MPV 10.5, Immature Gran % (Auto) 0.400, Neut % (Auto) 66.9, Lymph % (Auto) 18.5 L, Beauregard % (Auto) 9.0, Eos % (Auto) 4.3, Baso % (Auto) 0.9, Absolute Neuts (auto) 5.7, Absolute Lymphs (auto) 1.58, Nucleated RBC % 0, Sodium 143, Potassium 3.9, Chloride 114 H, Carbon Dioxide 23.0, Anion Gap 6, BUN 26 H, Creatinine 1.33 H, Estim Creat Clear Calc 48.73, Est GFR (MDRD) Af Amer 68, Est GFR (MDRD) Non-Af 56 L, BUN/Creatinine Ratio 19.5, Glucose 132 H, Calcium 8.5, Phosphorus 3.8, Magnesium 2.3 04/12/23 06:40: POC Glucose 129 H Physical Exam Narrative GENERAL: cooperative HEENT: Atraumatic; normocephalic EYES; Anicteric, Normal Conjunctiva NECK; supple, normal thyroid, RESPIRATORY: Diminished to auscultation CARDIOVASCULAR: Regular S1 S2, GI: soft, normoactive bowel sounds, : No Renal angle tenderness; EXTREMITIES: No edema, no clubbing, MUSCULOSKELETAL: no muscle wasting NEURO: Awake; no lateralizing signs. SKIN: No Rash PSYCH; Flat affect Assessment & Plan Assessment/Plan (1) ST elevation (STEMI) myocardial infarction involving right coronary artery: (2) Coronary artery disease: QUALIFIERS: Associated angina: with unstable angina Coronary Disease-Associated Artery/Lesion type: [place] artery [place] vs. transplanted heart: [place] heart Qualified Code(s): I25.110 - Atherosclerotic heart disease of [place] coronary artery with unstable angina pectoris (3) Transient complete heart block: PLAN: Plan Patient is a 73-year-old gentleman who presented with chest pain diagnosed with acute ST segment elevation [place] underwent emergency left heart catheterization found to have a complete occlusion of the proximal RCA underwent aspiration thrombectomy, balloon angioplasty RIRI placement. Subsequently transferred to the intensive care unit 1. Acute STEMI -Patient taken emergently to the [facility] And Sensing Technician and was found to have a complete occlusion of proximal RCA and underwent aspiration thrombectomy, balloon angioplasty and RIRI. Patient has since been managed with guideline directed medical therapy. Echo ordered pending ? 04/12/2023; echo performed awaiting results 2. Transient heart block ? Secondary to patient proximal RCA occlusion patient has since been monitored continuously on telemetry ? 04/12/2023 did continue with continuous telemetry monitoring patient out of beta-blockers in view of his transient heart block per recommendations from cardiac 3. Diabetes mellitus type II -patient's oral hypoglycemics held. Placed on long acting insulin, Accu-Cheks a.c. and at bedtime and covered with sliding scale insulin 4. Hypothyroidism - Patient is on levothyroxine home dose continued 5. Obstructive sleep apnea ? Patient is on CPAP at night 6. Chronic kidney disease stage IIIa Patient baseline creatinine has been ranging between 1.3-1.76. Creatinine on admission was 1.53. Will continue with daily monitoring 7. DVT prophylaxis - On enoxaparin Time spent in the patient's overall evaluation,decision-making process, review of diagnostic data, adjustment of management, discussion with other providers, nursing nursing and ancillary staff involved in patient's care documentation, 50 Minutes Charges/Coding Visit Charges Inpatient E&M: 17555 [facility] Hosp 04/12/23 1046 <Electronically signed by Romie Tuttle MD> Cosigner Signature (if applicable): CC: ~ Signed [facility] Work Phone: 1([phone]) [phone] Progress note Author Bo Albert [facility] April 12, 2023 10:42am Note Date/Time April 12, 2023 10 :42am [facility] Medical Records Department [address] [place] [address] Progress Note - Cardiology 04/12/23 1039 MR#: [id number] Acct: [id number] Name: SINDY GREENFIELD Rep #:[id number] : 1950 73 From: Bo Albert MD PCP: JOCELINE Morejon Status:ADM IN Location: ICU ICU10-1 Subjective Subjective Denies any complaints. No chest pain or shortness of breath. Objective Data Vital Signs: Vital Signs Temp Pulse Resp BP Pulse Ox O2 Del Method O2 Flow Rate 97.3 F L 73 16 150/60 H 96 Room Air 2 04/12/23 06:00 04/12/23 06:00 04/12/23 06:00 04/12/23 06:00 04/12/23 06:00 04/12/23 06:00 04/12/23 00:00 Oxygen Flow Rate (L/min) 2 Oxygen Delivery Method Room Air Weight: 177 lb 4.026 oz Body Mass Index (BMI) 25.7 Intake & Output: Intake and Output for Last 24 Hours 04/10/23 04/11/23 04/12/23 23:59 23:59 23:59 Intake Total 2702.9 / 2942.9 600 / 600 120 / 120 Output Total 1200 / 1200 1100 / 1100 Balance 1502.9 / 1742.9 600 / 600 -980 / -980 Lab / Micro Data 04/12/23 05:40 04/12/23 05:40 Labs: Laboratory Results - last 24 hr 04/11/23 12:38: POC Glucose 134 H 04/11/23 17:06: POC Glucose 104 04/11/23 22:18: POC Glucose 142 H 04/12/23 05:40: WBC 8.6, RBC 4.07 L, Hgb 11.8 L, Hct 36.0 L, MCV 88.5, MCH 29.0,MCHC 32.8, RDW Std Deviation 44.4 H, RDW Coeff of [place] 13.7, Plt Count 243, MPV 10.5, Immature Gran % (Auto) 0.400, Neut % (Auto) 66.9, Lymph % (Auto) 18.5 L, Beauregard % (Auto) 9.0, Eos % (Auto) 4.3, Baso % (Auto) 0.9, Absolute Neuts (auto) 5.7, Absolute Lymphs (auto) 1.58, Nucleated RBC % 0, Sodium 143, Potassium 3.9, Chloride 114 H, Carbon Dioxide 23.0, Anion Gap 6, BUN 26 H, Creatinine 1.33 H, Estim Creat Clear Calc 48.73, Est GFR (MDRD) Af Amer 68, Est GFR (MDRD) Non-Af 56 L, BUN/Creatinine Ratio 19.5, Glucose 132 H, Calcium 8.5, Phosphorus 3.8, Magnesium 2.3 04/12/23 06:40: POC Glucose 129 H Cardiology Labs/Tests 04/12/23 05:40: WBC 8.6, RBC 4.07 L, Hgb 11.8 L, Hct 36.0 L, MCV 88.5, MCH 29.0,MCHC 32.8, Plt Count 243, MPV 10.5, Immature Gran % (Auto) 0.400, Neut % (Auto) 66.9, Lymph % (Auto) 18.5 L, [place] % (Auto) 9.0, Eos % (Auto) 4.3, Baso % (Auto) 0.9, Absolute Neuts (auto) 5.7, Nucleated RBC % 0, Sodium 143, Potassium 3.9, Chloride 114 H, Carbon Dioxide 23.0, Anion Gap 6, BUN 26 H, Creatinine 1.33 H, Est GFR (MDRD) Af Amer 68, Est GFR (MDRD) Non-Af 56 L, BUN/Creatinine Ratio 19.5, Glucose 132 H, Calcium 8.5, Phosphorus 3.8, Magnesium 2.3 Rhythm: EKG: ECHO: Stress Test: Cardiac Cath: PCI: CT Surgery: Holter monitor: EPS: PPM: CXR: Chest CT Scan: Physical Exam Narrative Comfortable. No distress. Heart sounds 1 and 2 normal. No rubs or murmurs. Chest clear to auscultation bilaterally. Alert oriented x 3. No ankle edema. Assessment & Plan Assessment/Plan (1) ST elevation (STEMI) myocardial infarction involving right coronary artery: PLAN: Status post percutaneous intervention to the right coronary artery. Stable. Asymptomatic. Continue aspirin lifelong. Clopidogrel for at least 1 year. (2) Coronary artery disease: QUALIFIERS: Coronary Disease-Associated Artery/Lesion type: nativeartery [place] vs. transplanted heart: [place] heart Associated angina: with unstable angina Qualified Code(s): I25.110 - Atherosclerotic heart disease of [place] coronary artery with unstable angina pectoris PLAN: See #1 above. Aspirin, Plavix. Risk factor modification. (3) Transient complete heart block: PLAN: Complete heart block resolved with revascularization of the right coronaryartery. Residual first-degree AV block. MI interval improved. Continue to monitor. No beta-blockers for now. (4) Hypertension: QUALIFIERS: Hypertension type: unspecified Qualified Code(s): I10- Essential (primary) hypertension PLAN: Continue losartan. Increase dose as blood pressure above goal. (5) Dyslipidemia: PLAN: Intolerant of statins. Per patient, he has tried multiple statins in the past with intolerance secondary to myalgias. Continue ezetimibe and fenofibrate. (6) Diabetes 1.5, managed as type 2: PLAN: As per internal medicine. PLAN: Plan May transfer to stepdown unit. Discharge home tomorrow morning if continues to be stable. 04/12/23 1042 <Electronically signed by Bo Albert MD> Cosigner Signature (if applicable): CC: ~ Signed [facility] Work Phone: 1(934) 994-111401-07-2024 Progress note Author Romie Tuttle [facility] April 11, 2023 9:24am Note Date/Time April 11, 2023 7: 08am [facility] Medical Records Department [address] [place] [address] Progress Note - Hospitalist 04/11/23707 MR#: [id number] Acct: [id number] Name: SINDY GREENFIELD Rep #:[id number] : 1950 73 From: Romie Tuttle MD PCP: JOCELINE Morejon Status:ADM IN Location: ICU ICU10-1 Reason for Visit Reason for Visit: Diagnoses Hypothyroidism, unspecified (04/10/23) Other specified diabetes mellitus without complications (04/10/23) Hyperlipidemia, unspecified (04/10/23) Essential (primary) hypertension (04/10/23) ST elevation (STEMI) myocardial infarction involving right coronary artery (04/10/23) Atherosclerotic heart disease of [place] coronary artery without angina pectoris (04/10/23) Atrioventricular block, complete (04/10/23) Subjective Subjective Patient is a 73-year-old gentleman who presented with chest pain diagnosed with acute ST segment elevation GA underwent emergency left heart catheterization found to have a complete occlusion of the proximal RCA underwent aspiration thrombectomy, balloon angioplasty RIRI placement. Subsequently transferred to the intensive care unit Objective Data Objective Data Vital Signs: Vital Signs Temp Pulse Resp BP Pulse Ox O2 Del Method O2 Flow Rate 98.5 F 69 18 124/68 H 98 Room Air 2 04/11/23 06:21 04/11/23 06:21 04/11/23 06:21 04/11/23 06:21 04/11/23 06:21 04/11/23 06:21 04/11/23 00:00 Oxygen Flow Rate (L/min) 2 Oxygen Delivery Method Room Air Weight: 81.4 kg Body Mass Index (BMI) 26.1 Intake & Output: Intake and Output for Last 24 Hours 04/09/23 04/10/23 04/11/23 23:59 23:59 23:59 Intake Total 2702.9 / 2942.9 360 / 360 Output Total 1200 / 1200 Balance 1502.9 / 1742.9 360 / 360 Lab / Micro Data 04/11/23 04:32 04/11/23 04:32 Labs: Laboratory Results - last 24 hr 04/10/23 09:15: WBC 7.5, RBC 4.10 L, Hgb 12.2 L, Hct 36.2 L, MCV 88.3, MCH 29.8,MCHC 33.7, RDW Std Deviation 43.6, RDW Coeff of [place] 13.5, Plt Count 281, MPV 10.2, Immature Gran % (Auto) 0.300, Neut % (Auto) 64.1, Lymph % (Auto) 21.7, Beauregard % (Auto) 8.0, Eos % (Auto) 4.8, Baso % (Auto) 1.1 H, Absolute Neuts (auto) 4.8, Absolute Lymphs (auto) 1.62, Nucleated RBC % 0, PT 13.3, INR 1.0, APTT 26.4, Sodium 139, Potassium 3.9, Chloride 108 H, Carbon Dioxide 23.0, Anion Gap 8, BUN 33 H, Creatinine 1.53 H, Estim Creat Clear Calc 42.36, Est GFR (MDRD) Af Amer 58 L, Est GFR (MDRD) Non-Af 48 L, BUN/Creatinine Ratio 21.6 H, Glucose 201 H, Calcium 9.2, Magnesium 2.1, Total Bilirubin 0.20, Direct Bilirubin 0.10, AST 10 L, ALT 22, Alkaline Phosphatase 52, Troponin I High Sens 12, B-Natriuretic Peptide 7.0, Total Protein 7.1, Albumin 3.7, Globulin 3.4, Lipase 338 H 04/10/23 11:42: Troponin I High Sens 268 H* 04/10/23 13:33: Activated Clotting Time 185 H 04/10/23 14:20: Activated Clotting Time 201 H 04/10/23 20:20: Magnesium 2.0 04/10/23 21:12: POC Glucose 135 H 04/11/23 04:32: WBC 9.0, RBC 3.88 L, Hgb 11.5 L, Hct 34.5 L, MCV 88.9, MCH 29.6,MCHC 33.3, RDW Std Deviation 44.3 H, RDW Coeff of [place] 13.8, Plt Count 245, MPV 10.9, Sodium 143, Potassium 4.1, Chloride 112 H, Carbon Dioxide 23.0, Anion Gap 8, BUN 28 H, Creatinine 1.39 H, Estim Creat Clear Calc 46.62, Est GFR (MDRD) Af Amer 64, Est GFR (MDRD) Non-Af 53 L, BUN/Creatinine Ratio 20.1 H, Glucose 118 H,Calcium 8.5, Total Bilirubin 0.40, AST 404 H, ALT 71 H, Alkaline Phosphatase 51,Total Protein 6.7, Albumin 3.5, Globulin 3.2, Albumin/Globulin Ratio 1.1, Triglycerides 208 H, Cholesterol 164, LDL Cholesterol 94, VLDL Cholesterol 42 H,HDL Cholesterol 28 L 04/11/23 06:20: POC Glucose 187 H Radiography Diagnostic Testing: Radiology Impression Chest X-Ray 04/10/23 09:35 IMPRESSION: No radiographic evidence of acute cardiopulmonary disease. Electronically Signed: Joey Garibay MD at 10:09 EST , Physical Exam Narrative GENERAL: cooperative HEENT: Atraumatic; normocephalic EYES; Anicteric, Normal Conjunctiva NECK; supple, normal thyroid, RESPIRATORY: Diminished to auscultation CARDIOVASCULAR: Regular S1 S2, GI: soft, normoactive bowel sounds, : No Renal angle tenderness; EXTREMITIES: No edema, no clubbing, MUSCULOSKELETAL: no muscle wasting NEURO: Awake; no lateralizing signs. SKIN: No Rash PSYCH; Flat affect Assessment & Plan Assessment/Plan (1) ST elevation (STEMI) myocardial infarction involving right coronary artery: (2) Hypothyroid: QUALIFIERS: Hypothyroidism type: unspecified Qualified Code(s): E03.9 - Hypothyroidism, unspecified (3) Hypertension: QUALIFIERS: Hypertension type: unspecified Qualified Code(s): I10- Essential (primary) hypertension (4) Diabetes 1.5, managed as type 2: (5) Coronary artery disease: QUALIFIERS: Coronary Disease-Associated Artery/Lesion type: nativeartery [place] vs. transplanted heart: [place] heart Associated angina: with unstable angina Qualified Code(s): I25.110 - Atherosclerotic heart disease of [place] coronary artery with unstable angina pectoris (6) Transient complete heart block: PLAN: Plan Patient is a 73-year-old gentleman who presented with chest pain diagnosed with acute ST segment elevation GA underwent emergency left heart catheterization found to have a complete occlusion of the proximal RCA underwent aspiration thrombectomy, balloon angioplasty RIRI placement. Subsequently transferred to the intensive care unit 1. Acute STEMI -Patient taken emergently to the [facility] Sensing Techn[facility] and was found to have a complete occlusion of proximal RCA and underwent aspiration thrombectomy, balloon angioplasty and RIRI. Patient has since been managed with guideline directed medical therapy. Echo ordered pending 2. Transient heart block ? Secondary to patient proximal RCA occlusion patient has since been monitored continuously on telemetry 3. Diabetes mellitus type II -patient's oral hypoglycemics held. Placed on long acting insulin, Accu-Cheks a.c. and at bedtime and covered with sliding scale insulin 4. Hypothyroidism - Patient is on levothyroxine home dose continued 5. Obstructive sleep apnea ? Patient is on CPAP at night 6. Chronic kidney disease stage IIIa Patient baseline creatinine has been ranging between 1.3-1.76. Creatinine on admission was 1.53. Will continue with daily monitoring 7. DVT prophylaxis - On enoxaparin Time spent in the patient's overall evaluation,decision-making process, review of diagnostic data, adjustment of management, discussion with other providers, nursing nursing and ancillary staff involved in patient's care documentation, 50 Minutes 04/11/23923 <Electronically signed by Romie Tuttle MD> Cosigner Signature (if applicable): CC: ~ Signed ADDENDUM by Dr. Romie Tuttle MD on 04/11/23 at 0924 Visit Charges Inpatient E&M: 04604 Subs Hosp L3 04/11/23923<Electronically signed by Romie Tuttle MD> Cosigner Signature (if applicable): cc: ~* Signed [facility] Work Phone: 1(729) 623-878001-07-2024 Progress note Author Bo Albert [facility] April 11, 2023 8:56am Note Date/Time April 11, 2023 8: 57am [facility] Medical Records Department [address] [place] [address] Progress Note - Cardiology 04/11/23 0853 MR#: [id number] Acct: [id number] Name: SINDY GREENFIELD Rep #:[id number] : 1950 73 From: Bo Albert MD PCP: JOCELINE Morejon Status:ADM IN Location: ICU ICU10-1 Subjective Subjective Denies any complaints. No chest pain. No shortness of breath. Objective Data Vital Signs: Vital Signs Temp Pulse Resp BP Pulse Ox O2 Del Method O2 Flow Rate 98.5 F 69 18 124/68 H 98 Room Air 2 04/11/23 06:21 04/11/23 06:21 04/11/23 06:21 04/11/23 06:21 04/11/23 06:21 04/11/23 06:04/11/23 00:00 Oxygen Flow Rate (L/min) 2 Oxygen Delivery Method Room Air Weight: 179 lb 7.3 oz Body Mass Index (BMI) 26.1 Intake & Output: Intake and Output for Last 24 Hours 04/09/23 04/10/23 04/11/23 23:59 23:59 23:59 Intake Total 2702.9 / 2942.9 360 / 360 Output Total 1200 / 1200 Balance 1502.9 / 1742.9 360 / 360 Lab / Micro Data 04/11/23 04:32 04/11/23 04:32 Labs: Laboratory Results - last 24 hr 04/10/23 09:15: WBC 7.5, RBC 4.10 L, Hgb 12.2 L, Hct 36.2 L, MCV 88.3, MCH 29.8,MCHC 33.7, RDW Std Deviation 43.6, RDW Coeff of [place]ico 13.5, Plt Count 281, MPV 10.2, Immature Gran % (Auto) 0.300, Neut % (Auto) 64.1, Lymph % (Auto) 21.7, Beauregard % (Auto) 8.0, Eos % (Auto) 4.8, Baso % (Auto) 1.1 H, Absolute Neuts (auto) 4.8, Absolute Lymphs (auto) 1.62, Nucleated RBC % 0, PT 13.3, INR 1.0, APTT 26.4, Sodium 139, Potassium 3.9, Chloride 108 H, Carbon Dioxide 23.0, Anion Gap 8, BUN 33 H, Creatinine 1.53 H, Estim Creat Clear Calc 42.36, Est GFR (MDRD) Af Amer 58 L, Est GFR (MDRD) Non-Af 48 L, BUN/Creatinine Ratio 21.6 H, Glucose 201 H, Calcium 9.2, Magnesium 2.1, Total Bilirubin 0.20, Direct Bilirubin 0.10, AST 10 L, ALT 22, Alkaline Phosphatase 52, Troponin I High Sens 12, B-Natriuretic Peptide 7.0, Total Protein 7.1, Albumin 3.7, Globulin 3.4, Lipase 338 H 04/10/23 11:42: Troponin I High Sens 268 H* 04/10/23 13:33: Activated Clotting Time 185 H 04/10/23 14:20: Activated Clotting Time 201 H 04/10/23 20:20: Magnesium 2.0 04/10/23 21:12: POC Glucose 135 H 04/11/23 04:32: WBC 9.0, RBC 3.88 L, Hgb 11.5 L, Hct 34.5 L, MCV 88.9, MCH 29.6,MCHC 33.3, RDW Std Deviation 44.3 H, RDW Coeff of [place] 13.8, Plt Count 245, MPV 10.9, Sodium 143, Potassium 4.1, Chloride 112 H, Carbon Dioxide 23.0, Anion Gap 8, BUN 28 H, Creatinine 1.39 H, Estim Creat Clear Calc 46.62, Est GFR (MDRD) Af Amer 64, Est GFR (MDRD) Non-Af 53 L, BUN/Creatinine Ratio 20.1 H, Glucose 118 H,Calcium 8.5, Total Bilirubin 0.40, AST 404 H, ALT 71 H, Alkaline Phosphatase 51,Total Protein 6.7, Albumin 3.5, Globulin 3.2, Albumin/Globulin Ratio 1.1, Triglycerides 208 H, Cholesterol 164, LDL Cholesterol 94, VLDL Cholesterol 42 H,HDL Cholesterol 28 L 04/11/23 06:20: POC Glucose 187 H Cardiology Labs/Tests 04/10/23 09:15: WBC 7.5, RBC 4.10 L, Hgb 12.2 L, Hct 36.2 L, MCV 88.3, MCH 29.8,MCHC 33.7, Plt Count 281, MPV 10.2, Immature Gran % (Auto) 0.300, Neut % (Auto) 64.1, Lymph % (Auto) 21.7, Beauregard % (Auto) 8.0, Eos % (Auto) 4.8, Baso % (Auto) 1.1 H, Absolute Neuts (auto) 4.8, Nucleated RBC % 0, PT 13.3, INR 1.0, APTT 26.4, Sodium 139, Potassium 3.9, Chloride 108 H, Carbon Dioxide 23.0, Anion Gap 8, BUN 33 H, Creatinine 1.53 H, Est GFR (MDRD) Af Amer 58 L, Est GFR (MDRD) Non-Af 48 L, BUN/Creatinine Ratio 21.6 H, Glucose 201 H, Calcium 9.2, Magnesium 2.1,Total Bilirubin 0.20, Direct Bilirubin 0.10, B-Natriuretic Peptide 7.0 04/10/23 20:20: Magnesium 2.0 04/11/23 04:32: WBC 9.0, RBC 3.88 L, Hgb 11.5 L, Hct 34.5 L, MCV 88.9, MCH 29.6,MCHC 33.3, Plt Count 245, MPV 10.9, Sodium 143, Potassium 4.1, Chloride 112 H, Carbon Dioxide 23.0, Anion Gap 8, BUN 28 H, Creatinine 1.39 H, Est GFR (MDRD) AfAmer 64, Est GFR (MDRD) Non-Af 53 L, BUN/Creatinine Ratio 20.1 H, Glucose 118 H,Calcium 8.5, Total Bilirubin 0.40, Triglycerides 208 H, Cholesterol 164, LDL Cholesterol 94, VLDL Cholesterol 42 H, HDL Cholesterol 28 L Rhythm: EKG: ECHO: Stress Test: Cardiac Cath: PCI: CT Surgery: Holter monitor: EPS: PPM: CXR: Chest CT Scan: Radiography Diagnostic Testing: Radiology Impression Chest X-Ray 04/10/23 09:35 IMPRESSION: No radiographic evidence of acute cardiopulmonary disease. Electronically Signed: Joey Garibay MD at 10:09 EST , Physical Exam Narrative Comfortable. No distress. Heart sounds 1 and 2 normal. No rubs or murmurs. Chest clear to auscultation bilaterally. Alert oriented x 3. No ankle edema. Assessment & Plan Assessment/Plan (1) ST elevation (STEMI) myocardial infarction involving right coronary artery: PLAN: Status post percutaneous intervention to the right coronary artery. Stable. Asymptomatic. Continue aspirin lifelong. Clopidogrel for at least 1 year. Couple of runs of nonsustained VT last night. Monitor. No beta-blockers for now in view of AV conduction abnormalities. (2) Coronary artery disease: PLAN: See #1 above. Aspirin, Plavix. Risk factor modification. (3) Transient complete heart block: PLAN: Complete heart block resolved with revascularization of the right coronaryartery. Presently with markedly prolonged MI interval. First-degree AV block with occasional Wenckebach type I second-degree heart block. Will stop beta- blockers. Monitor. (4) Hypertension: QUALIFIERS: Hypertension type: unspecified Qualified Code(s): I10- Essential (primary) hypertension PLAN: Continue losartan. (5) Dyslipidemia: PLAN: Intolerant of statins. Per patient, he has tried multiple statins in the past with intolerance secondary to myalgias. Continue ezetimibe and fenofibrate. (6) Diabetes 1.5, managed as type 2: PLAN: As per internal medicine. 04/11/23 0856 <Electronically signed by Bo Albert MD> Cosigner Signature (if applicable): CC: ~ Signed [facility] Work Phone: [phone]) 309-633101-06-2024 History and physical note Author Tereza Tolentino [facility] April 10, 2023 8:34pm Note Date/Time April 10, 2023 8: 30pm [facility] Medical Records Department [address] [place] [address] H&P Exam - Hospitalist 04/10/232027 MR#: [id number] Acct: [id number] Name: SINDY GREENFIELD Rep #:[id number] : 1950 73 From: Tereza Tolentino MD PCP: JOCELINE Morejon Status:ADM IN Location: ICU ICU10-1 HPI - General General Date of Admission: 04/10/23 Date of Service: 04/10/23 Chief Complaint: Light headedness/stemi HPI Narrative SINDY GREENFIELD, is a 73-year-old male history of diabetes, MARY, hypothyroidism, BPH,high cholesterol presented to [facility] 04/10/2023 with chest tightness that started when he was out walking his dog and he became lightheaded. In ED initial EKG with rate of 44 and it was difficult to tell if there was heart block, rhythm strip did show that he was [facility]. Initially plan was for transfer however troponin was 12 and delta came back at 268, he had repeat EKG due to concern that he could have infarcted earlier causing the atypical rhythms and repeat EKG showed acute inferior GA andpatient was taken to [facility] Sensing Techn[facility]. Hospitalist contacted for admission. Patient seen in ICU at bedside after cath. Patient reports he got up at 7 AM and took his dog out when he got back he had sweats and was lightheaded and continued to feel worse prompting him to come to the ED where he was found to have a STEMI. At present patient has no chest pain or shortness of breath, has no physical complaints whatsoever. [facility] Medical History BPH (benign prostatic hyperplasia) Cancer Cholecystitis Diabetes mellitus Dietary restriction Difficulty swallowing High cholesterol History of renal disease Hypertension Hypothyroid Leg cramping Loss of hearing Neuropathy Non-smoker Sleep apnea treated with continuous positive airway pressure (CPAP) Wears glasses Home Medications levothyroxine 75 mcg tablet 100 mcg PO DAILY THYROID 01/08/13 [History Last Taken 04/09/23] metformin 500 mg tablet,extended release 24 hr 1,000 mg PO BID DIABETES 01/08/13[History Last Taken 02/15/23] rpxyihuy-xaz-pwwbj acid 0.4 mg-lycopene 300 mcg-lutein 250 mcg tablet (Centrum Silver) 1 ea PO DAILY SUPPLEMENT' 01/08/13 [History Last Taken 04/09/23] omega 3-dha 60 mg-epa 90 mg-fish oil 500 mg capsule, delayed release (Fish Oil) 1,000 mg PO BID supplement 05/24/15 [History Last Taken 04/09/23] potassium citrate 10 mEq (1,080 mg) tablet,extended release (Urocit-K 10) 1,080 mg PO DAILY SUPPLEMENT 05/24/15 [History Last Taken 04/09/23] fenofibrate nanocrystallized 145 mg tablet 145 mg PO DAILY CHOLESTEROL 07/17/18 [History Last Taken 04/09/23] ezetimibe 10 mg tablet 10 mg PO DAILY 12/06/22 [History Last Taken 04/09/23] glipizide 5 mg tablet 2.5 mg PO DINNER diabetes 12/06/22 [History Last Taken 04/09/23] vit C 250 mg-vit E 90 mg-zinc 40 mg-copper 1 mb-ijghvj-rtthsj capsule (PreserVision AREDS-2) 1 tab PO BID eye health 12/06/22 [History Last Taken 04/09/23] cholecalciferol (vitamin D3) 50 mcg (2,000 unit) capsule (D3-2000) 50 mcg PO DAILY 02/11/23 [History Last Taken 04/09/23] losartan 100 mg tablet 100 mg PO DAILY 04/10/23 [History Last Taken 04/10/23] Allergy/AdvReac Type Severity Reaction Status Date / Time Niwilxd-EJR-GoE Reductase AdvReac leg cramps Verified 04/10/23 08:44 Inhibitor [Ecmiljv-Stk-Qbc Reductase Inhibitor] Surgical History H/O prostatectomy History of tonsillectomy and adenoidectomy Hx of colonoscopy Hx of total knee replacement S/P laparoscopic cholecystectomy Social History household members: spouse current occupational status: retired Smoking Status: Never smoker ROS ROS Narrative General: Denies fever/chills HENT: Denies headache, denies stuffy nose, denies sore throat EYES: Denies changes in vision Resp: Denies cough, denies shortness of breath Cardiac: Denies chest pain GI: Denies abdominal pain, denies changes in bowel, denies nausea/vomiting : Denies changes in urination Extremity: Denies swelling MSK: Denies weakness Neuro: Denies any numbness/tingling Heme: Denies any bleeding or bruising Skin: Denies rashes Psychiatric: No complaints voiced Vital Signs Vital Signs Vital Signs: 04/10/23 08:44 04/10/23 09:07 04/10/23 09:34 Temperature 97.6 F L Temperature Source Temporal Pulse Rate 42 L Respiratory Rate 16 Respiratory Effort Normal Non-Labored Respiratory Pattern Normal Blood Pressure 132/64 H Blood Pressure [BP] Blood Pressure Mean 86 Blood Pressure Mean [BP] Blood Pressure Source Blood Pressure Source [BP] Blood Pressure Position Blood Pressure Position [BP] Blood Pressure Location Blood Pressure Location [BP] Pulse Ox 97 100 Oxygen Delivery Method Room Air Room Air 04/10/23 09:44 04/10/23 09:53 04/10/23 10:00 Temperature Temperature Source Pulse Rate 64 68 Respiratory Rate 12 14 Respiratory Effort Normal Non-Labored Respiratory Pattern Normal Blood Pressure 197/95 H 162/68 H Blood Pressure [BP] Blood Pressure Mean 129 99 Blood Pressure Mean [BP] Blood Pressure Source Blood Pressure Source [BP] Blood Pressure Position Blood Pressure Position [BP] Blood Pressure Location Blood Pressure Location [BP] Pulse Ox 99 98 Oxygen Delivery Method Room Air Room Air 04/10/23 11:00 04/10/23 12:00 04/10/23 13:00 Temperature 98.1 F Temperature Source Temporal Pulse Rate 62 69 70 Respiratory Rate 16 18 16 Respiratory Effort Respiratory Pattern Blood Pressure 171/53 H 159/60 H 140/51 H Blood Pressure [BP] Blood Pressure Mean 92 93 80 Blood Pressure Mean [BP] Blood Pressure Source Blood Pressure Source [BP] Blood Pressure Position Blood Pressure Position [BP] Blood Pressure Location Blood Pressure Location [BP] Pulse Ox 100 99 99 Oxygen Delivery Method Room Air Room Air Room Air 04/10/23 13:00 04/10/23 12:43 04/10/23 14:45 Temperature 97.9 F 98.8 F Temperature Source Temporal Pulse Rate 70 99 Respiratory Rate 16 18 20 H Respiratory Effort Respiratory Pattern Blood Pressure 144/78 H 168/84 H 134/87 H Blood Pressure [BP] Blood Pressure Mean 100 102 Blood Pressure Mean [BP] Blood Pressure Source Monitor Blood Pressure Source [BP] Blood Pressure Position Semi-Fowlers Blood Pressure Position [BP] Blood Pressure Location Left Arm Blood Pressure Location [BP] Pulse Ox 99 98 Oxygen Delivery Method Room Air 04/10/23 15:00 04/10/23 15:15 04/10/23 15:30 Temperature Temperature Source Pulse Rate 97 94 91 Respiratory Rate 14 17 14 Respiratory Effort Respiratory Pattern Blood Pressure 130/91 H 128/99 H 145/87 H Blood Pressure [BP] Blood Pressure Mean 104 108 106 Blood Pressure Mean [BP] Blood Pressure Source Monitor Monitor Monitor Blood Pressure Source [BP] Blood Pressure Position Semi-Fowlers Semi-Fowlers Semi-Fowlers Blood Pressure Position [BP] Blood Pressure Location Left Arm Left Arm Left Arm Blood Pressure Location [BP] Pulse Ox 97 97 98 Oxygen Delivery Method Room Air Room Air Room Air 04/10/23 16:30 04/10/23 15:45 04/10/23 16:00 Temperature 98.7 F Temperature Source Temporal Pulse Rate 82 107 H 85 Respiratory Rate 17 16 15 Respiratory Effort Respiratory Pattern Blood Pressure 144/81 H 125/74 H 142/93 H Blood Pressure [BP] Blood Pressure Mean 102 91 109 Blood Pressure Mean [BP] Blood Pressure Source Monitor Monitor Monitor Blood Pressure Source [BP] Blood Pressure Position Semi-Fowlers Semi-Fowlers Semi-Fowlers Blood Pressure Position [BP] Blood Pressure Location Left Arm Left Arm Left Arm Blood Pressure Location [BP] Pulse Ox 98 97 96 Oxygen Delivery Method Room Air Room Air Room Air 04/10/23 17:00 04/10/23 18:00 04/10/23 19:00 Temperature Temperature Source Pulse Rate 82 77 79 Respiratory Rate 14 17 16 Respiratory Effort Respiratory Pattern Blood Pressure 148/89 H 135/91 H Blood Pressure [BP] 136/74 H Blood Pressure Mean 108 105 Blood Pressure Mean [BP] 94 Blood Pressure Source Monitor Monitor Blood Pressure Source [BP] Monitor Blood Pressure Position Semi-Fowlers Semi-Fowlers Blood Pressure Position [BP] Semi-Fowlers Blood Pressure Location Left Arm Left Arm Blood Pressure Location [BP] Left Arm Pulse Ox 99 97 97 Oxygen Delivery Method Room Air Room Air Room Air Weight Weight: 97.7 kg Body Mass Index (BMI) 31.3 Physical Exam Narrative General: Alert, oriented, no apparent distress HEENT: Atraumatic, normocephalic Eyes: Anicteric, normal conjunctiva, extraocular movements grossly intact Neck: Supple Respiratory: Clear to auscultation bilaterally, normal respiratory effort Cardiovascular: Regular rate and rhythm GI: Soft, nontender, nondistended Extremities: No edema Musculoskeletal: Moving all extremities Neuro: No overt focal neurological deficits Skin: No rashes appreciated Psych: Cooperative Results Lab / Micro Data 04/10/23 09:15 04/10/23 09:15 Labs: Laboratory Results - last 24 hr 04/10/23 09:15: WBC 7.5, RBC 4.10 L, Hgb 12.2 L, Hct 36.2 L, MCV 88.3, MCH 29.8, MCHC 33.7, RDW Std Deviation 43.6, RDW Coeff of [place] 13.5, Plt Count 281, MPV 10.2, Immature Gran % (Auto) 0.300, Neut % (Auto) 64.1, Lymph % (Auto) 21.7, Beauregard % (Auto) 8.0, Eos % (Auto) 4.8, Baso % (Auto) 1.1 H, Absolute Neuts (auto) 4.8, Absolute Lymphs (auto) 1.62, Nucleated RBC % 0, PT 13.3, INR 1.0, APTT 26.4, Sodium 139, Potassium 3.9, Chloride 108 H, Carbon Dioxide 23.0, Anion Gap 8, BUN 33 H, Creatinine 1.53 H, Estim Creat Clear Calc 42.36, Est GFR (MDRD) Af Amer 58 L, Est GFR (MDRD) Non-Af 48 L, BUN/Creatinine Ratio 21.6 H, Glucose 201 H, Calcium 9.2, Magnesium 2.1, Total Bilirubin 0.20, Direct Bilirubin 0.10, AST 10 L, ALT 22, Alkaline Phosphatase 52, Troponin I High Sens 12, B-Natriuretic Peptide 7.0, Total Protein 7.1, Albumin 3.7, Globulin 3.4, Lipase 338 H 04/10/23 11:42: Troponin I High Sens 268 H* 04/10/23 13:33: Activated Clotting Time 185 H 04/10/23 14:20: Activated Clotting Time 201 H Imagaing Radiology Impression Chest X-Ray 04/10/23 09:35 IMPRESSION: No radiographic evidence of acute cardiopulmonary disease. Electronically Signed: Joey Garibay MD at 10:09 EST , Assessment & Plan Assessment/Plan (1) ST elevation (STEMI) myocardial infarction involving right coronary artery: (2) Hypothyroid: (3) Hypertension: QUALIFIERS: Hypertension type: unspecified Qualified Code(s): I10 - Essential (primary) hypertension (4) Diabetes 1.5, managed as type 2: (5) Coronary artery disease: (6) Transient complete heart block: PLAN: Plan #STEMI -STEMI on EKG in ED -Patient taken emergently to the [facility] And Sensing Technician and was found to have a complete occlusion of proximal RCA and underwent aspiration thrombectomy, balloon angioplasty and RIRI. -Will monitor in ICU -Aspirin life long and plavix at least 1 year -Statin -Beta-gian -Angel inhibitor as BP allows -Echocardiogram -lipid panel #Transient heart block -In ED, likely d/t stemi, resolved -Monitor on tele #MARY -continue cpap #Hypothyroidism -Continue Synthroid #Type 2 diabetes mellitus -Glucose checks and sliding scale insulin #DVT ppx: Lovenox sub q Tereza Tolentino MD Charges/Coding Visit Charges Inpatient E&M: 67731 Init Hosp L2 04/10/232033 <Electronically signed by Tereza Tolentino MD> Cosigner Signature (if applicable): CC: SUPERVISOR T[employer]-C Mita Zaidi; Dr. Tereza Tolentino MD~ Signed [facility] Work Phone: 1(113) 134-701401-06-2024 Consult note Author Bo Albert [facility] April 10, 2023 3:56pm Note Date/Time April 10, 2023 3: 57pm [facility] Medical Records Department [address] [place] [address] Consultation - Cardiology 04/10/23 1546 MR#: [id number] Acct: [id number] Name: SINDY GREENFIELD Rep #:[id number] : 1950 73 From: Bo Albert MD PCP: JOCELINE Morejon Status:ADM IN Location: ICU ICU10-1 Assessment & Plan Assessment/Plan (1) ST elevation (STEMI) myocardial infarction involving right coronary artery: PLAN: STEMI alert was called. Emergent coronary angiography was undertaken. Itshowed complete occlusion of the proximal right coronary artery. Successful percutaneous intervention was done with aspiration thrombectomy, balloon angioplasty and drug-eluting stent. Excellent results were noted with confucianist of AHSAN-3 flow and 0% residual stenosis. Continue aspirin lifelong. Plavix for at least 1 year. Risk factor modification. (2) Coronary artery disease: PLAN: See #1 above. Aspirin, Plavix. Check lipid panel. Beta-blockers. ANGEL inhibitors. (3) Transient complete heart block: PLAN: Resolved with revascularization of the right coronary artery. Monitor. (4) Hypertension: QUALIFIERS: Hypertension type: unspecified Qualified Code(s): I10- Essential (primary) hypertension PLAN: Beta-blockers. ANGEL inhibitor. (5) Dyslipidemia: PLAN: Check lipid profile. Patient is intolerant of statins. Depending upon his lipid profile, alternative therapeutic region would be suggested. (6) Diabetes 1.5, managed as type 2: PLAN: As per internal medicine. HPI Consult Data Date of Consult: 04/10/23 HPI Narrative Reason for Consultation: STEMI HPI Narrative: This patient has past medical history significant for hypertension, dyslipidemiaand diabetes mellitus. He presented to the emergency room complaining of lightheadedness. According to him, it started earlier this morning. I was called by the emergency room physician and told that his ECG shows bradycardia with possible second-degree type I Wenckebach block. A subsequent ECG showed STelevations in inferior leads. Subsequently a STEMI alert was called. Upon further questioning, the patient does admit to having anterior chest discomfort along with his lightheadedness. According to him, the discomfort radiated to his neck. [facility] Medical History BPH (benign prostatic hyperplasia) Cancer Cholecystitis Diabetes mellitus Dietary restriction Difficulty swallowing High cholesterol History of renal disease Hypertension Hypothyroid Leg cramping Loss of hearing Neuropathy Non-smoker Sleep apnea treated with continuous positive airway pressure (CPAP) Wears glasses Home Medications levothyroxine 75 mcg tablet 100 mcg PO DAILY THYROID 01/08/13 [History Last Taken 04/09/23] metformin 500 mg tablet,extended release 24 hr 1,000 mg PO BID DIABETES 01/08/13[History Last Taken 02/15/23] encttqjs-lqa-abzae acid 0.4 mg-lycopene 300 mcg-lutein 250 mcg tablet (Centrum Silver) 1 ea PO DAILY SUPPLEMENT' 01/08/13 [History Last Taken 04/09/23] omega 3-dha 60 mg-epa 90 mg-fish oil 500 mg capsule, delayed release (Fish Oil) 1,000 mg PO BID supplement 05/24/15 [History Last Taken 04/09/23] potassium citrate 10 mEq (1,080 mg) tablet,extended release (Urocit-K 10) 1,080 mg PO DAILY SUPPLEMENT 05/24/15 [History Last Taken 04/09/23] fenofibrate nanocrystallized 145 mg tablet 145 mg PO DAILY CHOLESTEROL 10/19/17 [History Last Taken 04/09/23] ezetimibe 10 mg tablet 10 mg PO DAILY 12/06/22 [History Last Taken 04/09/23] glipizide 5 mg tablet 2.5 mg PO DINNER diabetes 12/06/22 [History Last Taken 04/09/23] vit C 250 mg-vit E 90 mg-zinc 40 mg-copper 1 mz-mryhhv-qkzkwl capsule (PreserVision AREDS-2) 1 tab PO BID eye health 12/06/22 [History Last Taken 04/09/23] cholecalciferol (vitamin D3) 50 mcg (2,000 unit) capsule (D32000) 50 mcg PO DAILY 02/11/23 [History Last Taken 04/09/23] losartan 100 mg tablet 100 mg PO DAILY 04/10/23 [History Last Taken 04/10/23] Allergy/AdvReac Type Severity Reaction Status Date / Time Bjefhfs-FYF-XsR Reductase AdvReac leg cramps Verified 04/10/23 08:44 Inhibitor [Ggyhiby-Nbk-Eal Reductase Inhibitor] Surgical History H/O prostatectomy History of tonsillectomy and adenoidectomy Hx of colonoscopy Hx of total knee replacement S/P laparoscopic cholecystectomy Social History household members: spouse current occupational status: retired Smoking Status: Never smoker Physical Exam Narrative Comfortable. No apparent distress. Heart sounds 1 and 2 are normal. Chest clear to auscultation bilaterally. Alert oriented x 3. No ankle edema. Risk Stratification Risk Stratification Applicable: No Objective Data Vital Signs: Vital Signs Temp Pulse Resp BP Pulse Ox O2 Del Method 97.9 F 70 16 144/78 H 99 Room Air 04/10/23 13:00 04/10/23 13:00 04/10/23 13:00 04/10/23 13:00 04/10/23 13:00 04/10/23 13:00 Oxygen Delivery Method Room Air Weight: 183 lb 13.848 oz Body Mass Index (BMI) 27.1 Intake & Output: Intake and Output for Last 24 Hours 04/08/23 04/09/23 04/10/23 23:59 23:59 23:59 Intake Total 1000 / 1000 Balance 1000 / 1000 Lab / Micro Data 04/10/23 09:15 04/10/23 09:15 Labs: Laboratory Results - last 24 hr 04/10/23 09:15: WBC 7.5, RBC 4.10 L, Hgb 12.2 L, Hct 36.2 L, MCV 88.3, MCH 29.8,MCHC 33.7, RDW Std Deviation 43.6, RDW Coeff of Tico 13.5, Plt Count 281, MPV 10.2, Immature Gran % (Auto) 0.300, Neut % (Auto) 64.1, Lymph % (Auto) 21.7, Beauregard % (Auto) 8.0, Eos % (Auto) 4.8, Baso % (Auto) 1.1 H, Absolute Neuts (auto) 4.8, Absolute Lymphs (auto) 1.62, Nucleated RBC % 0, PT 13.3, INR 1.0, APTT 26.4, Sodium 139, Potassium 3.9, Chloride 108 H, Carbon Dioxide 23.0, Anion Gap 8, BUN 33 H, Creatinine 1.53 H, Estim Creat Clear Calc 42.36, Est GFR (MDRD) Af Amer 58 L, Est GFR (MDRD) Non-Af 48 L, BUN/Creatinine Ratio 21.6 H, Glucose 201 H, Calcium 9.2, Magnesium 2.1, Total Bilirubin 0.20, Direct Bilirubin 0.10, AST 10 L, ALT 22, Alkaline Phosphatase 52, Troponin I High Sens 12, B-Natriuretic Peptide 7.0, Total Protein 7.1, Albumin 3.7, Globulin 3.4, Lipase 338 H 04/10/23 11:42: Troponin I High Sens 268 H* Cardiology Labs/Tests 04/10/23 09:15: WBC 7.5, RBC 4.10 L, Hgb 12.2 L, Hct 36.2 L, MCV 88.3, MCH 29.8,MCHC 33.7, Plt Count 281, MPV 10.2, Immature Gran % (Auto) 0.300, Neut % (Auto) 64.1, Lymph % (Auto) 21.7, Beauregard % (Auto) 8.0, Eos % (Auto) 4.8, Baso % (Auto) 1.1 H, Absolute Neuts (auto) 4.8, Nucleated RBC % 0, PT 13.3, INR 1.0, APTT 26.4, Sodium 139, Potassium 3.9, Chloride 108 H, Carbon Dioxide 23.0, Anion Gap 8, BUN 33 H, Creatinine 1.53 H, Est GFR (MDRD) Af Amer 58 L, Est GFR (MDRD) Non-Af 48 L, BUN/Creatinine Ratio 21.6 H, Glucose 201 H, Calcium 9.2, Magnesium 2.1,Total Bilirubin 0.20, Direct Bilirubin 0.10, B-Natriuretic Peptide 7.0 Rhythm: EKG: ECHO: Stress Test: Cardiac Cath: PCI: CT Surgery: Holter monitor: EPS: PPM: CXR: Chest CT Scan: Radiography Diagnostic Testing: Radiology Impression Chest X-Ray 04/10/23 09:35 IMPRESSION: No radiographic evidence of acute cardiopulmonary disease. Electronically Signed: Joey Garibay MD at 10:09 EST , 04/10/23 2013 <Electronically signed by Bo Albert MD> Cosigner Signature (if applicable): CC: JOCELINE Zaidi~ Signed [facility] Work Phone: 1(207) 417-290501-06-2024 Discharge summary Author Nicanor Martinez [facility] April 10, 2023 12:57pm Note Date/Time April 10, 2023 10 :18am [facility] Medical Records Department [address] [place] [id number] Emergency Department Summary 04/10/23 MR#: [id number] Acct: [id number] Name: SINDY GREENFIELD Rep #:[id number] 20 : 1950 73 From: Nicanor Martinez DO PCP: JOCELINE Morejon Status:REG ER Location: ED HPI History of Present Illness Chief Complaint: Dizziness Narrative Narrative: 73-year-old male presenting with chest tightness. He states is not pain or pressure. He states he was out walking his dog and became lightheaded before this started. This was about 5 or 6 AM this morning. Patient states that he has a history of chronic kidney disease, hypertension, hyperlipidemia, diabetes. He denies cardiac history. Patient notes that his losartan has been increased a couple of times and he now takes 100 mg of losartan when he used to take 25. He is not on a beta-gian or heart rate control medication. Patient denies shortness of breath. He denies nausea or vomiting. Denies fever or chills. Patient does state that he drinks a lot of water. He does not drink alcohol andis non-smoker. [facility] Medical History BPH (benign prostatic hyperplasia) Cancer Cholecystitis Diabetes mellitus Dietary restriction Difficulty swallowing High cholesterol History of renal disease Hypertension Hypothyroid Leg cramping Loss of hearing Neuropathy Non-smoker Sleep apnea treated with continuous positive airway pressure (CPAP) Wears glasses Home Medications levothyroxine 75 mcg tablet 100 mcg PO DAILY THYROID 01/08/13 [History Last Taken 04/09/23] metformin 500 mg tablet,extended release 24 hr 1,000 mg PO BID DIABETES 01/08/13[History Last Taken 02/15/23] knblovss-fsm-xdyqf acid 0.4 mg-lycopene 300 mcg-lutein 250 mcg tablet (Centrum Silver) 1 ea PO DAILY SUPPLEMENT' 01/08/13 [History Last Taken 04/09/23] omega 3-dha 60 mg-epa 90 mg-fish oil 500 mg capsule, delayed release (Fish Oil) 1,000 mg PO BID supplement 05/24/15 [History Last Taken 04/09/23] potassium citrate 10 mEq (1,080 mg) tablet,extended release (Urocit-K 10) 1,080 mg PO DAILY SUPPLEMENT 05/24/15 [History Last Taken 04/09/23] fenofibrate nanocrystallized 145 mg tablet 145 mg PO DAILY CHOLESTEROL 10/19/17 [History Last Taken 04/09/23] ezetimibe 10 mg tablet 10 mg PO DAILY 12/06/22 [History Last Taken 04/09/23] glipizide 5 mg tablet 2.5 mg PO DINNER diabetes 12/06/22 [History Last Taken 04/09/23] vit C 250 mg-vit E 90 mg-zinc 40 mg-copper 1 nt-zxcbqm-swtgcu capsule (PreserVision AREDS-2) 1 tab PO BID eye health 12/06/22 [History Last Taken 04/09/23] cholecalciferol (vitamin D3) 50 mcg (2,000 unit) capsule (D3-2000) 50 mcg PO DAILY 02/11/23 [History Last Taken 04/09/23] losartan 100 mg tablet 100 mg PO DAILY 04/10/23 [History Last Taken 04/10/23] Allergy/AdvReac Type Severity Reaction Status Date / Time Bufhivk-UAD-FuC Reductase AdvReac leg cramps Verified 04/10/23 08:44 Inhibitor [Arsvdcm-Wnh-Ewc Reductase Inhibitor] Surgical History H/O prostatectomy History of tonsillectomy and adenoidectomy Hx of colonoscopy Hx of total knee replacement S/P laparoscopic cholecystectomy Social History household members: spouse current occupational status: retired Smoking Status: Never smoker ROS ROS ED ROS Narrative Lightheadedness Constitutional Constitutional ED: Denies chills, fever(s) or sweats Eyes Eyes: Denies blurry vision or change in vision ENT ENT ED: Denies ear pain or sore throat Cardiovascular Cardiovascular: Reports as per HPI; Denies chest pain, palpitations or racing heartbeat Respiratory/Chest Respiratory/Chest: Denies cough, dyspnea or sputum Gastrointestinal Gastrointestinal: Denies abdominal pain, constipation, diarrhea, nausea or vomiting Genitourinary Genitourinary ED: Denies dysuria, hematuria or urinary frequency Musculoskeletal Musculoskeletal: Denies arthralgias, myalgias or neck pain Integumentary Denies abscess, Abrasions or rash Neurologic Neurologic: Denies headache(s), paresthesias or weakness Psychiatric Psychiatric: Denies anxiety, depression, suicidal ideation or suicidal thoughts Endocrine Endocrinology: Denies polydipsia or polyuria EXAM Physical Exam Const Vital Signs: 04/10/23 08:44 04/10/23 09:07 04/10/23 09:34 Temperature 97.6 F L Temperature Source Temporal Pulse Rate 42 L Respiratory Rate 16 Respiratory Effort Normal Non-Labored Respiratory Pattern Normal Blood Pressure 132/64 H Blood Pressure Mean 86 Pulse Ox 97 100 Oxygen Delivery Method Room Air Room Air 04/10/23 09:44 04/10/23 09:53 Temperature Temperature Source Pulse Rate 64 Respiratory Rate 12 Respiratory Effort Normal Non-Labored Respiratory Pattern Normal Blood Pressure 197/95 H Blood Pressure Mean 129 Pulse Ox 99 Oxygen Delivery Method Room Air Positive well nourished General Appearance ED: NAD; Negative for pallor HEENT Reports moist mucous membranes normocephalic and atraumatic Eyes PERRL Neck no lymphadenopathy Chest Wall inspection of chest normal and palpation of chest normal Resp normal respiratory effort and clear to auscultation bilaterally Auscultation: Negative for rales, rhonchi or wheezes Cardio regular rhythm Rate: bradycardia GI normal to inspection, nondistended, normoactive bowel sounds Neuro oriented x3 and CN's II-XII intact bilaterally Sensorium / Orientation: awake and alert Skin no rashes or lesions noted General Skin Exam: Negative for jaundice or pallor Heart Score History: Moderately Suspicious ECG: Nonspecific Repolarization Age: >/= 65 years Risk Factors: >/= 3 Risk Factors or History of CAD Troponin: >/=3 x Normal Limit Score: 8 MDM MDM MDM Narrative Medical decision making narrative: Patient presenting with bradycardia which is symptomatic. His initial EKG showed a rate of 44 bpm which appeared to be sinus but may indicate heart block. We did a rhythm strip which showed that he was in and out of Wenckebach. Medications were reviewed and none of his medications would have caused a heart block. Patient with no cardiac history but was having chest tightness. Differential includes ACS, CHF, pneumonia, COPD, heart block, dehydration, anemia, joint abnormalities. Initially discussed EKG findings with cardiology and giventhe lack of ability to have a pacemaker placed was initially thought the patientwould need to be transferred. Initially attempted to call [place] however therewas no ability to except as they have no open beds. They did give me a cardiology number to call which I did call and received no answer. We then attempted to call [facility] and never received a call back. CBC was obtained to assess for blood cell count, hemoglobin, platelets. CMP to assess liver function, renal function, electrolytes, glucose. High-sensitivity troponin to assess for ischemia/dysrhythmia. Chest x-ray to rule out pneumonia. BNP to rule out CHF. Lipase was obtained as the patient had some epigastric discomfortas well. CBC, CMP unremarkable. Initial high-sensitivity troponin was 12. Delta troponin came back at 268. Patient at this point had repeat EKG as there was concern that the patient could have infarcted earlier and that was why he was having the atypical rhythms. EKG repeated at 1238 after the delta troponin showed a acute inferior GA. Chest x-ray reviewed at that time shows no acute process. This is on my interpretation. STEMI was called. Spoke with Dr. Albertpatient was given aspirin, Brilinta, heparin. Patient will be taken to the CathLab. He is currently pain- free. Impression: 1. NSTEMI 2. Palpitations Lab Data Attestation: I reviewed the patient's lab results. Labs: Laboratory Results - last 24 hr 04/10/23 04/10/23 09:15 11:42 WBC 7.5 RBC 4.10 L Hgb 12.2 L Hct 36.2 L MCV 88.3 MCH 29.8 MCHC 33.7 RDW Std Deviation 43.6 RDW Coeff of Tico 13.5 Plt Count 281 MPV 10.2 Immature Gran % (Auto) 0.300 Neut % (Auto) 64.1 Lymph % (Auto) 21.7 Beauregard % (Auto) 8.0 Eos % (Auto) 4.8 Baso % (Auto) 1.1 H Absolute Neuts (auto) 4.8 Absolute Lymphs (auto) 1.62 Nucleated RBC % 0 Sodium 139 Potassium 3.9 Chloride 108 H Carbon Dioxide 23.0 Anion Gap 8 BUN 33 H Creatinine 1.53 H Estim Creat Clear Calc 42.36 Est GFR (MDRD) Af Amer 58 L Est GFR (MDRD) Non-Af 48 L BUN/Creatinine Ratio 21.6 H Glucose 201 H Calcium 9.2 Total Bilirubin 0.20 Direct Bilirubin 0.10 AST 10 L ALT 22 Alkaline Phosphatase 52 Troponin I High Sens 12 268 H* B-Natriuretic Peptide 7.0 Total Protein 7.1 Albumin 3.7 Globulin 3.4 Lipase 338 H Radiography Diagnostic Testing: Clinical Impression(s) from Imaging Studies Chest X-Ray 04/10/23 09:35 IMPRESSION: No radiographic evidence of acute cardiopulmonary disease. Electronically Signed: Joey Garibay MD at 10:09 EST , Discharge Plan Triage Chief Complaint: Dizziness ED Provider: Nicanor Martinez Dx/Rx/DC Orders Prescriptions: No Action levothyroxine 75 MCG tablet 100 mcg PO DAILY metformin 500 MG tablet 1,000 mg PO BID Centrum Silver 1 EACH tablet 1 ea PO DAILY potassium citrate [Urocit-K 10] 10 MEQ tablet extended release 1,080 mg PO DAILY Fish Oil 500 MG capsule,delayed release(DR/EC) 1,000 mg PO BID fenofibrate nanocrystallized 145 tablet 145 mg PO DAILY Patient Comments: glipizide 5 mg tablet 2.5 mg PO DINNER ezetimibe 10 mg tablet 10 mg PO DAILY PreserVision AREDS-2 250-90-40-1 mg capsule 1 tab PO BID cholecalciferol (vitamin D3) [D3-2000] 50 mcg (2,000 unit) capsule 50 mcg PO DAILY losartan 100 mg tablet 100 mg PO DAILY Primary Care Provider: Mita Zaidi Referrals: Mita Zaidi NP-C [Primary Care Provider] - What to do if you have Problems For any increased pain, shortness of breath, bleeding, nausea or vomiting, chestpain, or any unexpected problems, contact your Primary Care Provider. Call [facility] ([phone]) or report to the closest Emergency Room. Call 911 if necessary. 04/10/23 1257 <Electronically signed by Nicanor Martinez DO> Cosigner Signature (if applicable): CC: JOCELINE Zaidi ~ Signed [facility] Work Phone: 1(563) 148-944701-06-2024 Discharge summary Author Nicanor Martinez [facility] April 10, 2023 12:57pm Note Date/Time April 10, 2023 10 :18am [facility] Medical Records Department [address] [place] [address] Emergency Department Summary 04/10/23 MR#: [id number] Acct: [id number] Name: SINDY GREENFIELD Rep #:[id number] 20 : 1950 73 From: Nicanor Martinez DO PCP: JOCELINE Morejon Status:REG ER Location: ED HPI History of Present Illness Chief Complaint: Dizziness Narrative Narrative: 73-year-old male presenting with chest tightness. He states is not pain or pressure. He states he was out walking his dog and became lightheaded before this started. This was about 5 or 6 AM this morning. Patient states that he has a history of chronic kidney disease, hypertension, hyperlipidemia, diabetes. He denies cardiac history. Patient notes that his losartan has been increased a couple of times and he now takes 100 mg of losartan when he used to take 25. He is not on a beta-gian or heart rate control medication. Patient denies shortness of breath. He denies nausea or vomiting. Denies fever or chills. Patient does state that he drinks a lot of water. He does not drink alcohol andis non-smoker. [facility] Medical History BPH (benign prostatic hyperplasia) Cancer Cholecystitis Diabetes mellitus Dietary restriction Difficulty swallowing High cholesterol History of renal disease Hypertension Hypothyroid Leg cramping Loss of hearing Neuropathy Non-smoker Sleep apnea treated with continuous positive airway pressure (CPAP) Wears glasses Home Medications levothyroxine 75 mcg tablet 100 mcg PO DAILY THYROID 01/08/13 [History Last Taken 04/09/23] metformin 500 mg tablet,extended release 24 hr 1,000 mg PO BID DIABETES 01/08/13[History Last Taken 02/15/23] wgbuazwq-myf-blgzg acid 0.4 mg-lycopene 300 mcg-lutein 250 mcg tablet (Centrum Silver) 1 ea PO DAILY SUPPLEMENT' 01/08/13 [History Last Taken 04/09/23] omega 3-dha 60 mg-epa 90 mg-fish oil 500 mg capsule, delayed release (Fish Oil) 1,000 mg PO BID supplement 05/24/15 [History Last Taken 04/09/23] potassium citrate 10 mEq (1,080 mg) tablet,extended release (Urocit-K 10) 1,080 mg PO DAILY SUPPLEMENT 05/24/15 [History Last Taken 04/09/23] fenofibrate nanocrystallized 145 mg tablet 145 mg PO DAILY CHOLESTEROL 10/19/17 [History Last Taken 04/09/23] ezetimibe 10 mg tablet 10 mg PO DAILY 12/06/22 [History Last Taken 04/09/23] glipizide 5 mg tablet 2.5 mg PO DINNER diabetes 12/06/22 [History Last Taken 04/09/23] vit C 250 mg-vit E 90 mg-zinc 40 mg-copper 1 wj-ljepdy-zqplxz capsule (PreserVision AREDS-2) 1 tab PO BID eye health 12/06/22 [History Last Taken 04/09/23] cholecalciferol (vitamin D3) 50 mcg (2,000 unit) capsule (D3-2000) 50 mcg PO DAILY 02/11/23 [History Last Taken 04/09/23] losartan 100 mg tablet 100 mg PO DAILY 04/10/23 [History Last Taken 04/10/23] Allergy/AdvReac Type Severity Reaction Status Date / Time Eraqfaj-RYT-FjP Reductase AdvReac leg cramps Verified 04/10/23 08:44 Inhibitor [Fxszqve-Kxb-Yxv Reductase Inhibitor] Surgical History H/O prostatectomy History of tonsillectomy and adenoidectomy Hx of colonoscopy Hx of total knee replacement S/P laparoscopic cholecystectomy Social History household members: spouse current occupational status: retired Smoking Status: Never smoker ROS ROS ED ROS Narrative Lightheadedness Constitutional Constitutional ED: Denies chills, fever(s) or sweats Eyes Eyes: Denies blurry vision or change in vision ENT ENT ED: Denies ear pain or sore throat Cardiovascular Cardiovascular: Reports as per HPI; Denies chest pain, palpitations or racing heartbeat Respiratory/Chest Respiratory/Chest: Denies cough, dyspnea or sputum Gastrointestinal Gastrointestinal: Denies abdominal pain, constipation, diarrhea, nausea or vomiting Genitourinary Genitourinary ED: Denies dysuria, hematuria or urinary frequency Musculoskeletal Musculoskeletal: Denies arthralgias, myalgias or neck pain Integumentary Denies abscess, Abrasions or rash Neurologic Neurologic: Denies headache(s), paresthesias or weakness Psychiatric Psychiatric: Denies anxiety, depression, suicidal ideation or suicidal thoughts Endocrine Endocrinology: Denies polydipsia or polyuria EXAM Physical Exam Const Vital Signs: 04/10/23 08:44 04/10/23 09:07 04/10/23 09:34 Temperature 97.6 F L Temperature Source Temporal Pulse Rate 42 L Respiratory Rate 16 Respiratory Effort Normal Non-Labored Respiratory Pattern Normal Blood Pressure 132/64 H Blood Pressure Mean 86 Pulse Ox 97 100 Oxygen Delivery Method Room Air Room Air 04/10/23 09:44 04/10/23 09:53 Temperature Temperature Source Pulse Rate 64 Respiratory Rate 12 Respiratory Effort Normal Non-Labored Respiratory Pattern Normal Blood Pressure 197/95 H Blood Pressure Mean 129 Pulse Ox 99 Oxygen Delivery Method Room Air Positive well nourished General Appearance ED: NAD; Negative for pallor HEENT Reports moist mucous membranes normocephalic and atraumatic Eyes PERRL Neck no lymphadenopathy Chest Wall inspection of chest normal and palpation of chest normal Resp normal respiratory effort and clear to auscultation bilaterally Auscultation: Negative for rales, rhonchi or wheezes Cardio regular rhythm Rate: bradycardia GI normal to inspection, nondistended, normoactive bowel sounds Neuro oriented x3 and CN's II-XII intact bilaterally Sensorium / Orientation: awake and alert Skin no rashes or lesions noted General Skin Exam: Negative for jaundice or pallor Heart Score History: Moderately Suspicious ECG: Nonspecific Repolarization Age: >/= 65 years Risk Factors: >/= 3 Risk Factors or History of CAD Troponin: >/=3 x Normal Limit Score: 8 MDM MDM MDM Narrative Medical decision making narrative: Patient presenting with bradycardia which is symptomatic. His initial EKG showed a rate of 44 bpm which appeared to be sinus but may indicate heart block. We did a rhythm strip which showed that he was in and out of Wenckebach. Medications were reviewed and none of his medications would have caused a heart block. Patient with no cardiac history but was having chest tightness. Differential includes ACS, CHF, pneumonia, COPD, heart block, dehydration, anemia, joint abnormalities. Initially discussed EKG findings with cardiology and giventhe lack of ability to have a pacemaker placed was initially thought the patientwould need to be transferred. Initially attempted to call [place] however therewas no ability to except as they have no open beds. They did give me a cardiology number to call which I did call and received no answer. We then attempted to call [facility] and never received a call back. CBC was obtained to assess for blood cell count, hemoglobin, platelets. CMP to assess liver function, renal function, electrolytes, glucose. High-sensitivity troponin to assess for ischemia/dysrhythmia. Chest x-ray to rule out pneumonia. BNP to rule out CHF. Lipase was obtained as the patient had some epigastric discomfortas well. CBC, CMP unremarkable. Initial high-sensitivity troponin was 12. Delta troponin came back at 268. Patient at this point had repeat EKG as there was concern that the patient could have infarcted earlier and that was why he was having the atypical rhythms. EKG repeated at 1238 after the delta troponin showed a acute inferior GA. Chest x-ray reviewed at that time shows no acute process. This is on my interpretation. STEMI was called. Spoke with Dr. Albertpatient was given aspirin, Brilinta, heparin. Patient will be taken to the CathLab. He is currently pain- free. Impression: 1. NSTEMI 2. Palpitations Lab Data Attestation: I reviewed the patient's lab results. Labs: Laboratory Results - last 24 hr 04/10/23 04/10/23 09:15 11:42 WBC 7.5 RBC 4.10 L Hgb 12.2 L Hct 36.2 L MCV 88.3 MCH 29.8 MCHC 33.7 RDW Std Deviation 43.6 RDW Coeff of Tico 13.5 Plt Count 281 MPV 10.2 Immature Gran % (Auto) 0.300 Neut % (Auto) 64.1 Lymph % (Auto) 21.7 Beauregard % (Auto) 8.0 Eos % (Auto) 4.8 Baso % (Auto) 1.1 H Absolute Neuts (auto) 4.8 Absolute Lymphs (auto) 1.62 Nucleated RBC % 0 Sodium 139 Potassium 3.9 Chloride 108 H Carbon Dioxide 23.0 Anion Gap 8 BUN 33 H Creatinine 1.53 H Estim Creat Clear Calc 42.36 Est GFR (MDRD) Af Amer 58 L Est GFR (MDRD) Non-Af 48 L BUN/Creatinine Ratio 21.6 H Glucose 201 H Calcium 9.2 Total Bilirubin 0.20 Direct Bilirubin 0.10 AST 10 L ALT 22 Alkaline Phosphatase 52 Troponin I High Sens 12 268 H* B-Natriuretic Peptide 7.0 Total Protein 7.1 Albumin 3.7 Globulin 3.4 Lipase 338 H Radiography Diagnostic Testing: Clinical Impression(s) from Imaging Studies Chest X-Ray 04/10/23 09:35 IMPRESSION: No radiographic evidence of acute cardiopulmonary disease. Electronically Signed: Joey Garibay MD at 10:09 EST , Discharge Plan Triage Chief Complaint: Dizziness ED Provider: Nicanor Martinez Dx/Rx/DC Orders Prescriptions: No Action levothyroxine 75 MCG tablet 100 mcg PO DAILY metformin 500 MG tablet 1,000 mg PO BID Centrum Silver 1 EACH tablet 1 ea PO DAILY potassium citrate [Urocit-K 10] 10 MEQ tablet extended release 1,080 mg PO DAILY Fish Oil 500 MG capsule,delayed release(DR/EC) 1,000 mg PO BID fenofibrate nanocrystallized 145 tablet 145 mg PO DAILY Patient Comments: glipizide 5 mg tablet 2.5 mg PO DINNER ezetimibe 10 mg tablet 10 mg PO DAILY PreserVision AREDS-2 250-90-40-1 mg capsule 1 tab PO BID cholecalciferol (vitamin D3) [D3-2000] 50 mcg (2,000 unit) capsule 50 mcg PO DAILY losartan 100 mg tablet 100 mg PO DAILY Primary Care Provider: Mita Zaidi Referrals: Mita Zaidi NP-C [Primary Care Provider] - What to do if you have Problems For any increased pain, shortness of breath, bleeding, nausea or vomiting, chestpain, or any unexpected problems, contact your Primary Care Provider. Call [facility] ([phone]) or report to the closest Emergency Room. Call 911 if necessary. 04/10/23 1257 <Electronically signed by Nicanor Martinez DO> Cosigner Signature (if applicable): CC: JOCELINE Zaidi ~ Signed [facility] Work Phone: 1(114) 221-191611-14-2023 History and physical note Author Ysah Estrada [facility] February 16, 2023 12:42pm Note Date/Time February 16, 2023 12:42pm [facility] Medical Records Department [address] [facility] [place] [address] History & Physical Exam 02/16/23 1240 MR#: [id number] Acct: [id number] Name: SINDY GREENFIELD Rep #:[id number] : 1950 72 From: Yash Estrada DO PCP: JOCELINE Morejon Status:[facility] Location: AC AC15-1 HPI - General General Date of Admission: 02/16/23 Date of Service: 02/16/23 Chief Complaint: Screening colonoscopy HPI Narrative SINDY GREENFIELD, is a 72 M who presents today for screening colonoscopy. He does nothave any abdominal pain. He is not have any nausea, vomiting or diarrhea. He does not have any chest pain or shortness of breath. He is not having any weakness. He is not having any headache or dizziness. All other 16 review systems are negative except as per past mentioned HPI. [facility] Medical History BPH (benign prostatic hyperplasia) Cancer Cholecystitis Diabetes mellitus Dietary restriction Difficulty swallowing High cholesterol History of renal disease Hypertension Hypothyroid Leg cramping Loss of hearing Neuropathy Non-smoker Sleep apnea treated with continuous positive airway pressure (CPAP) Wears glasses Home Medications levothyroxine 75 mcg tablet 100 mcg PO DAILY THYROID 01/08/13 [History Last Taken 02/15/23] metformin 500 mg tablet,extended release 24 hr 1,000 mg PO BID DIABETES 01/08/13[History Last Taken 02/15/23] wvtaaufw-zmj-qxjbp acid 0.4 mg-lycopene 300 mcg-lutein 250 mcg tablet (Centrum Silver) 1 ea PO DAILY SUPPLEMENT' 01/08/13 [History Last Taken 02/15/23] omega 3-dha 60 mg-epa 90 mg-fish oil 500 mg capsule, delayed release (Fish Oil) 1,000 mg PO BID supplement 05/24/15 [History Last Taken 02/15/23] potassium citrate 10 mEq (1,080 mg) tablet,extended release (Urocit-K 10) 10 meqPO DAILY SUPPLEMENT 05/24/15 [History Last Taken 02/15/23] fenofibrate nanocrystallized 145 mg tablet 145 mg PO DAILY CHOLESTEROL 10/19/17 [History Last Taken 02/15/23] ezetimibe 10 mg tablet 10 mg PO DAILY 12/06/22 [History Last Taken 02/15/23] glipizide 5 mg tablet 2.5 mg PO DINNER diabetes 12/06/22 [History Last Taken 02/15/23] losartan 25 mg tablet 25 mg PO DAILY 12/06/22 [History Last Taken 02/15/23] vit C 250 mg-vit E 90 mg-zinc 40 mg-copper 1 ob-qhdqnk-kvxesc capsule (PreserVision AREDS-2) 1 tab PO BID eye health 12/06/22 [History Last Taken 02/15/23] ascorbic acid (vitamin C) 500 mg tablet,extended release (C-500) 500 mg PO DAILY02/11/23 [History Last Taken 02/15/23] cholecalciferol (vitamin D3) 50 mcg (2,000 unit) capsule (D3-2000) 50 mcg PO DAILY 02/11/23 [History Last Taken 02/15/23] cyanocobalamin-liver extract tablet 1 tab PO DAILY 02/11/23 [History Last Taken 02/15/23] Allergy/AdvReac Type Severity Reaction Status Date / Time Vzhqvcp-HEG-RrW Reductase AdvReac leg cramps Verified 02/16/23 12:26 Inhibitor [Acodkuf-Rdb-Ypm Reductase Inhibitor] Surgical History H/O prostatectomy History of tonsillectomy and adenoidectomy Hx of colonoscopy Hx of total knee replacement S/P laparoscopic cholecystectomy Social History (Updated 01/18/23 @ 08:24 by Mindi Cohen) household members: spouse current occupational status: retired Smoking Status: Never smoker ROS Constitutional Constitutional: Denies chills, fatigue or fever(s) Gastrointestinal Gastrointestinal: Reports abdominal pain, nausea and vomiting Physical Exam Const alert, oriented x3, no apparent distress, average body habitus and healthy appearing General Appearance: cooperative, well kempt and well developed Orientation / Consciousness: awake, oriented to person, oriented to place and oriented to time HEENT normocephalic, head/scalp atraumatic and moist oral mucous membranes Eyes PERRL, EOMs intact bilaterally and conjunctivae normal Neck supple, no JVD, thyroid normal and no carotid bruits General: trachea midline Resp normal respiratory effort, no retractions, no use of accessory muscles and clearto auscultation bilaterally Auscultation: Negative for rales, rhonchi or wheezes Cardio regular rate, regular rhythm, S1 normal heart sound, S2 normal heart sound, no murmurs, no rub and no gallops Extremity no clubbing, cyanosis or edema Skin no rashes or lesions noted General Skin Exam: no breakdown Neuro oriented x3, CN's II-XII intact bilaterally, moves all extremities, no focal motor deficits and no sensory deficits noted Sensorium / Orientation: awake and alert Speech: speech normal Psych affect normal Assessment & Plan Assessment/Plan (1) Encounter for screening for malignant neoplasm of colon: PLAN: He was explained alternatives, risk, benefits including not withstanding bleeding, infection, sepsis, perforation, need for emergent surgery . He will have an ASA of 3. 02/16/23 1242 <Electronically signed by Yash Estrada DO> Cosigner Signature (if applicable): CC: JOCELINE Zaidi; Yash Estrada DO~ Signed [facility] Work Phone: 1(669) 648-827811-14-2023 Procedure [facility] 02-16-2023 Procedure [facility]09-05-2023 Discharge summary Author Megan Francis [facility] December 08, 2022 9:25am Note Date/Time December 08, 2022 9:25am [facility] Medical Records Department [address] [place] [address] Discharge Summary 12/08/22 0916 MR#: [id number] Acct: [id number] Name: SINDY GREENFIELD Rep #:[id number] : 1950 72 From: Megan ENGEL PA-C PCP: Love Crowley DO Status:ADM I N Location: [place] [address] Providers Date of Admission: 12/06/22 Primary Care Physician: Love Crowley DO Reason For Visit: ACUTE CHOLECYSTITIS Diagnosis Discharge Diagnosis (1) Hypertension: Status: Chronic Code(s): I10 - Essential (primary) hypertension Qualifiers: Hypertension type: unspecified Qualified Code(s): I10 - Essential (primary) hypertension Medications at Discharge Home Medications levothyroxine 75 mcg tablet 100 mcg PO DAILY THYROID 01/08/13 metformin 500 mg tablet,extended release 24 hr 1,000 mg PO BID DIABETES 01/08/13 tkhweogq-wbr-mirgd acid 0.4 mg-lycopene 300 mcg-lutein 250 mcg tablet (Centrum Silver) 1 ea PO DAILY SUPPLEMENT' 01/08/13 omega 3-dha 60 mg-epa 90 mg-fish oil 500 mg capsule, delayed release (Fish Oil) 1,000 mg PO BID supplement 05/24/15 potassium citrate 10 mEq (1,080 mg) tablet,extended release (Urocit-K 10) 10 meqPO DAILY SUPPLEMENT 05/24/15 fenofibrate nanocrystallized 145 mg tablet 145 mg PO DAILY CHOLESTEROL 10/19/17 ezetimibe 10 mg tablet 10 mg PO DAILY 12/06/22 glipizide 5 mg tablet 2.5 mg PO DINNER diabetes 12/06/22 losartan 25 mg tablet 25 mg PO DAILY 12/06/22 vit C 250 mg-vit E 90 mg-zinc 40 mg-copper 1 ss-tpnqot-jtrcvc capsule (PreserVision AREDS-2) 1 tab PO BID eye health 12/06/22 tramadol 50 mg tablet 50 mg PO Q6H PRN PRN Pain Score 4-10 2 days #8 tabs 12/08/22 Hospital Course Operations cholecystecomy Summary of Care Provided Minutes Spent on Discharge: 20 Hospital Course: Patient is a 72 y/o M who presented with an acute onset of right upper quadrant pain following eating lunch associated with nausea and vomiting. CT scan of the ab/pel and RUQ u/s demonstrated some thickening of the gallbladder wall. Dr. Mitchell performed a laparoscopic cholecystectomy with intraoperative cholangiogramon 12/07/22. Patient tolerated the procedure well. Upon discharge, patient noted incisional discomfort. He denies nausea, vomiting, fever. He is tolerating a regular diet well. Physical Exam Const alert, oriented x3 and no apparent distress GI GI Narrative: Abdomen- incisions c/d/i. No erythema or infection noted. Slight tenderness at the incision sites Weight / BMI Weight Weight: 174 lb 9.698 oz Body Mass Index (BMI) 25.4 ABG / Lab / Microbiology Data 12/07/22 05:31 12/07/22 05:31 Laboratory: Laboratory Results - last 24 hr 12/07/22 05:31: Hemoglobin A1c 6.3 H 12/07/22 12:41: POC Glucose 167 H 12/07/22 16:19: POC Glucose 148 H 12/07/22 21:47: POC Glucose 153 H 12/08/22 05:33: POC Glucose 121 H Radiography Diagnostic Testing: Radiology Impression Cholangiogram 12/07/22 10:35 IMPRESSION: Normal operative cholangiogram. Electronically Signed: Alexis Pasotr MD at 17:06 EDT , D/C Instructions Discharge Diet: Light diet - advance as tolerated Call your doctor if your incision/area has: Continuous Slow Oozing, Sudden Increased Bleeding, Increased Pain/ Swelling, Increased Redness, Foul Smelling Discharge and Swelling at the incision site Call your doctor if you observe: Fever of 101 or Higher Suture Line Care: Avoid Pulling/Pushing and Avoid Pinching/Bending Cleanse incision/area with: Soap & Water Additional Dressing/Incision Instructions: Leave steri-strips in place for 1 week Please Follow Up With: Markell Mitchell MD When: Please call our office to schedule a follow-up appointment for 7-10 days at [phone] Meaningful Use Info Meaningful Use Diagnoses (Choose all that apply): None applicable Discharge Plan Admission Admit Date/Time: 12/06/22 20:28 Primary Reason for Your Visit: Acute cholecystitis Attending Provider: Markell Mitchell Primary Care Provider: Love Crowley Consulting Providers: Gil Mcclelland Instructions Additional Instructions / Restrictions: Recommend taking Tylenol for pain/discomfort You will be sent home with a small prescription for Ultram, which is a pain medication Recommend no lifting greater than 15 pounds for 2 weeks You may remove the plastic dressings tomorrow You will shower tomorrow Leave the steri-strips in place Follow-up with Dr. Mitchell in 7-10 days Discharge Orders/Prescriptions Prescriptions: New tramadol 50 mg Tablet 50 mg PO Q6H PRN PRN (Reason: Pain Score 4-10) 2 Days Qty: 8 0RF Continued levothyroxine 75 MCG tablet 100 mcg PO DAILY metformin 500 MG tablet 1,000 mg PO BID Centrum Silver 1 EACH tablet 1 ea PO DAILY potassium citrate [Urocit-K 10] 10 MEQ tablet extended release 10 meq PO DAILY Fish Oil 500 MG capsule,delayed release(DR/EC) 1,000 mg PO BID fenofibrate nanocrystallized 145 tablet 145 mg PO DAILY Patient Comments: losartan 25 mg tablet 25 mg PO DAILY glipizide 5 mg tablet 2.5 mg PO DINNER ezetimibe 10 mg tablet 10 mg PO DAILY PreserVision AREDS-2 250-90-40-1 mg capsule 1 tab PO BID Referrals / Follow Up: Love Crowley DO [Primary Care Provider] - Disposition Disposition (needs filled in before D/C Order can be placed): Home, Self Care 12/08/22924 <Electronically signed by Megan ENGEL PA-C> Cosigner Signature (if applicable): CC: RADHA Francis; Love Crowley DO~ Signed [facility] Work Phone: [phone]) 761-234609-05-2023 Discharge summary Author Megan Francis [facility] December 08, 2022 9:16am Note Date/Time December 08, 2022 9:16am [facility] Medical Records Department [address] [place] [address] Instructions for Home/Discharge Instructions 12/08/22912 MR#: [id number] Acct: [id number] Name: SINDY GREENFIELD Rep #:[id number] : 1950 72 From: Megan ENGEL PA-C PCP: Love Crowley DO Status:ADM I N Discharge Instructions Diet Discharge Diet: Light diet - advance as tolerated Activity Discharge Activity: May Not Drive (3-5 days) and May Shower (tomorrow) Lifting Restrictions: 15 pounds for 2 weeks Dressing / Incision Call your doctor if your incision/area has: Continuous Slow Oozing, Sudden Increased Bleeding, Increased Pain/ Swelling, Increased Redness, Foul Smelling Discharge and Swelling at the incision site Call your doctor if you observe: Fever of 101 or Higher Suture Line Care: Avoid Pulling/Pushing and Avoid Pinching/Bending Remove Dressing in: 1 day Cleanse incision/area with: Soap & Water Additional Dressing/Incision Instructions:: Leave steri-strips in place for 1 week Follow Up Care Please Follow Up With: Markell Mitchell MD When: Please call our office to schedule a follow-up appointment for 7-10 days at [phone] Test Results: Test results from this visit will be discussed in further detail at your follow- up appointment, if applicable. Discharge Plan Admission Admit Date/Time: 12/06/22 20:28 Primary Reason for Your Visit: Acute cholecystitis Attending Provider: Markell Mitchell Primary Care Provider: Love Crowley Consulting Providers: Gil Mcclelland Instructions Additional Instructions / Restrictions: Recommend taking Tylenol for pain/discomfort You will be sent home with a small prescription for Ultram, which is a pain medication Recommend no lifting greater than 15 pounds for 2 weeks You may remove the plastic dressings tomorrow You will shower tomorrow Leave the steri-strips in place Follow-up with Dr. Mitchell in 7-10 days Discharge Orders/Prescriptions Prescriptions: New tramadol 50 mg Tablet 50 mg PO Q6H PRN PRN (Reason: Pain Score 4-10) 2 Days Qty: 8 0RF Continued levothyroxine 75 MCG tablet 100 mcg PO DAILY metformin 500 MG tablet 1,000 mg PO BID Centrum Silver 1 EACH tablet 1 ea PO DAILY potassium citrate [Urocit-K 10] 10 MEQ tablet extended release 10 meq PO DAILY Fish Oil 500 MG capsule,delayed release(DR/EC) 1,000 mg PO BID fenofibrate nanocrystallized 145 tablet 145 mg PO DAILY Patient Comments: losartan 25 mg tablet 25 mg PO DAILY glipizide 5 mg tablet 2.5 mg PO DINNER ezetimibe 10 mg tablet 10 mg PO DAILY PreserVision AREDS-2 250-90-40-1 mg capsule 1 tab PO BID Referrals / Follow Up: Love Crowley DO [Primary Care Provider] - Disposition Disposition (needs filled in before D/C Order can be placed): Home, Self Care 12/08/22 0916<Electronically signed by Megan ENGEL PA-C>Megan ENGEL PA-C CC: Dr. Gil Mcclelland DO; Love Crowley DO ~ Signed [facility] Work Phone: 1(390) 412-117909-04-2023 Discharge summary Author Hal Rivas [facility] December 07, 2022 3:22pm Note Date/Time December 06, 2022 4:02pm [facility] Medical Records Department [address] [place] [address] Emergency Department Summary 12/06/22 MR#: [id number] Acct: [id number] Name: EDILELISABETHSINDY Rep #:[id number] : 1950 72 From: Hal Rivas MD PCP: Love Crowley, DO Status:ADM I N Location: [facility] DU541-8 HPI <TORO Avalos - Last Filed: 12/06/22 20:21> History of Present Illness Chief Complaint: Abd Pain Narrative Narrative: 72-year-old male ate steak and baked potato and salad at [facility] around 1130 and then at 2 PM developed epigastric pain and nausea and vomiting. He states he had normal bladder and bowel movements this week. No fever or chills. He has no chest pain or shortness of breath. Denies history of GERD or pain with eating. No abdominal surgical history. He does not drink or smoke. [facility] <TORO Avalos - Last Filed: 12/06/22 20:21> [facility] Medical History Diabetes mellitus Hypertension Hypothyroid Leg cramping Sleep apnea treated with continuous positive airway pressure (CPAP) Home Medications levothyroxine 75 mcg tablet 100 mcg PO DAILY THYROID 01/08/13 [History Last Taken 12/06/22 05:00] metformin 500 mg tablet,extended release 24 hr 1,000 mg PO BID DIABETES 01/08/13[History Last Taken 12/06/22 13:30] hkkttjux-wfk-hfbth acid 0.4 mg-lycopene 300 mcg-lutein 250 mcg tablet (Centrum Silver) 1 ea PO DAILY SUPPLEMENT' 01/08/13 [History Last Taken 12/06/22 07:00] omega 3-dha 60 mg-epa 90 mg-fish oil 500 mg capsule, delayed release (Fish Oil) 1,000 mg PO BID supplement 05/24/15 [History Last Taken 12/06/22 13:30] potassium citrate 10 mEq (1,080 mg) tablet,extended release (Urocit-K 10) 10 meqPO DAILY SUPPLEMENT 05/24/15 [History Last Taken 06/03/15 04:30] fenofibrate nanocrystallized 145 mg tablet 145 mg PO DAILY CHOLESTEROL 10/19/17 [History Last Taken Unknown] ezetimibe 10 mg tablet 10 mg PO DAILY 12/06/22 [History Last Taken Unknown] glipizide 5 mg tablet 2.5 mg PO DINNER diabetes 12/06/22 [History Last Taken 12/06/22 13:30] losartan 25 mg tablet 25 mg PO DAILY 12/06/22 [History Last Taken Unknown] vit C 250 mg-vit E 90 mg-zinc 40 mg-copper 1 su-gnivcf-ilawhu capsule (PreserVision AREDS-2) 1 tab PO BID eye health 12/06/22 [History Last Taken 12/06/22 13:30] Allergy/AdvReac Type Severity Reaction Status Date / Time Psjckwh-RYC-QuO Reductase AdvReac leg cramps Verified 12/06/22 21:43 Inhibitor [Ocautge-Haz-Shv Reductase Inhibitor] Surgical History H/O prostatectomy History of tonsillectomy and adenoidectomy Social History Smoking Status: Never smoker ROS <TORO Avalos - Last Filed: 12/06/22 20:21> ROS ED ROS Narrative Constitutional: Negative for fever, chills, malaise. CVS: Negative for palpitations, chest pain, syncope. Respiratory: Negative for shortness of breath, cough. GI: Positive for abdominal pain, nausea, vomiting. Negative for diarrhea, constipation, melena, hematochezia. : Negative for dysuria, hematuria or frequency. EXAM <TORO Avalos - Last Filed: 12/06/22 20:21> Physical Exam Narrative Exam Narrative: CONST: Patient sitting in no acute distress. EYES: Normal inspection. NECK: Normal inspection. RESP: No respiratory distress, CTAB. CVS: Regular rate and rhythm, no murmur, no gallop. ABD: Soft with minimal epigastric tenderness, no guarding or rebound, nondistended, no hepatosplenomegaly. SKIN: Color normal, no rash, warm, dry, intact. EXTREMITIES: Normal appearance, no pedal edema. NEURO: Oriented x4. PSYCH: Normal affect. Const Vital Signs: 12/06/22 15:44 12/06/22 19:20 12/06/22 19:55 Temperature 96.8 F L Temperature Source Temporal Pulse Rate 71 65 67 Respiratory Rate 18 17 18 Blood Pressure 209/155 H 172/72 H 163/69 H Blood Pressure Mean 173 105 100 Pulse Ox 98 94 94 Oxygen Delivery Method Room Air Room Air Room Air <Hal Rivas MD - Last Filed: 12/07/22 15:22> Physical Exam Const Vital Signs: 12/06/22 15:44 12/06/22 19:20 12/06/22 19:55 Temperature 96.8 F L Temperature Source Temporal Pulse Rate 71 65 67 Respiratory Rate 18 17 18 Blood Pressure 209/155 H 172/72 H 163/69 H Blood Pressure Mean 173 105 100 Pulse Ox 98 94 94 Oxygen Delivery Method Room Air Room Air Room Air MDM <TORO Avalos - Last Filed: 12/06/22 20:21> [facility] Narrative Medical decision making narrative: History gathered from: Patient and spouse Patient presents with vomiting and epigastric pain that started after eating lunch. He appears well and nontoxic. He is hypertensive with otherwise normal vital signs. He has epigastric and RUQ pain with no peritoneal signs. Labs show white count of 9.4, CMP shows renal function is at baseline with creatinine1.34 and is otherwise unremarkable, lipase is slightly up at 152. CT shows overdistended gallbladder with stones. CT also shows possible infectious process involving the right renal collecting system but he has no flank pain and urinalysis is negative so I do not suspect this is related to his symptoms. RUQultrasound shows over-distended gallbladder with sludge and stones with no evidence of acute cholecystitis. Patient continues to have abdominal pain despite multiple rounds of analgesia so I will consult general surgery. Dr. Mitchell evaluated patient and admitted him under his service for acute cholecystitis and requested IV Zofran which was administered in the ED. He alsorequested a medicine consult for clearance so I discussed with the hospitalist. Differential: GERD, gastritis, biliary colic, cholecystitis, pancreatitis among others Lab Data Attestation: I reviewed the patient's lab results. Labs: Laboratory Results - last 24 hr 12/06/22 12/06/22 16:00 19:53 WBC 9.4 RBC 4.29 L Hgb 12.4 L Hct 38.1 L MCV 88.8 MCH 28.9 MCHC 32.5 RDW Std Deviation 43.3 RDW Coeff of Tico 13.3 Plt Count 353 MPV 10.0 Immature Gran % (Auto) 1.100 H Neut % (Auto) 65.8 Lymph % (Auto) 21.0 Beauregard % (Auto) 7.0 Eos % (Auto) 4.1 Baso % (Auto) 1.0 Absolute Neuts (auto) 6.2 Absolute Lymphs (auto) 1.98 Nucleated RBC % 0 Sodium 141 Potassium 4.1 Chloride 107 Carbon Dioxide 27.0 Anion Gap 7 BUN 31 H Creatinine 1.34 H Estim Creat Clear Calc 49.10 Est GFR (MDRD) Af Amer 67 Est GFR (MDRD) Non-Af 55 L BUN/Creatinine Ratio 23.1 H Glucose 124 H Calcium 9.9 Total Bilirubin 0.30 AST 16 ALT 33 Alkaline Phosphatase 59 Total Protein 8.2 Albumin 4.2 Globulin 4.0 Albumin/Globulin Ratio 1.0 Lipase 152 H Urine Color Yellow Urine Clarity Clear Urine pH 8.0 Ur Specific [place] 1.015 Urine Protein 100 H Urine Glucose (UA) Normal Urine Ketones Negative Urine Occult Blood 10 H Urine Nitrite Negative Urine Bilirubin Negative Urine Urobilinogen Normal Ur Leukocyte Esterase 25 H Urine RBC 0-5 SEEN Urine WBC 0-5 SEEN Ur Squamous Epith Cells 0-5 SEEN Urine Bacteria 0 SEEN Urine Mucus 0 SEEN Radiography Diagnostic Testing: Clinical Impression(s) from Imaging Studies Abdomen/Pelvis CT 12/06/22 15:55 IMPRESSION: Possible infectious process involving the right renal collecting system, clinical correlation recommended. Over distended gallbladder with tiny gallstones. If indicated, this can be further assessed with right upper quadrant ultrasound. No acute appendicitis or bowel obstruction. Electronically Signed: Mari Pate MD at 17:04 EDT , Gallbladder Ultrasound 12/06/22 17:06 IMPRESSION: Slightly over distended gallbladder with sludge and gallstone is described. Positive Rushing sign, nonspecific in the absence of additional signs of acute cholecystitis. However, due to increased distention, if clinical concern for acute cholecystitis remains, recommend dedicated HIDA scan. Remainder of the right upper quadrant ultrasound. Electronically Signed: Mari Pate MD at 19:02 EDT , <Hal Rivas MD - Last Filed: 12/07/22 15:22> MDM MDM Narrative Medical decision making narrative: History gathered from: Patient and spouse Patient presents with vomiting and epigastric pain that started after eating lunch. He appears well and nontoxic. He is hypertensive with otherwise normal vital signs. He has epigastric and RUQ pain with no peritoneal signs. Labs show white count of 9.4, CMP shows renal function is at baseline with creatinine1.34 and is otherwise unremarkable, lipase is slightly up at 152. CT shows overdistended gallbladder with stones. CT also shows possible infectious process involving the right renal collecting system but he has no flank pain and urinalysis is negative so I do not suspect this is related to his symptoms. RUQultrasound shows over-distended gallbladder with sludge and stones with no evidence of acute cholecystitis. Patient continues to have abdominal pain despite multiple rounds of analgesia so I will consult general surgery. Dr. Mitchell evaluated patient and admitted him under his service for acute cholecystitis and requested IV Zofran which was administered in the ED. He alsorequested a medicine consult for clearance so I discussed with the hospitalist. Differential: GERD, gastritis, biliary colic, cholecystitis, pancreatitis among others Dr. Rivas: I have personally performed a face to face assessment of the patient and have reviewed the ERIN Note. I performed a substantive portion of the visit including all aspects of the following. My rabago findings include: History is epigastric pain, right upper quadrant pain after eating, nausea and vomiting. Exam is afebrile. Vital signs noted. Regular rate and rhythm. Lungs clear to auscultation bilaterally. Abdomen soft with tenderness to palpation in epigastrium and right upper quadrant. Positive Rushing sign. Medical Decision Making: Check labs. Check CT. Check ultrasound. Concern for cholecystitis. Consult surgery. Discussed with hospitalist. Admit. Other additions or changes: [None] Lab Data Labs: Laboratory Results - last 24 hr 12/06/22 12/06/22 16:00 19:53 WBC 9.4 RBC 4.29 L Hgb 12.4 L Hct 38.1 L MCV 88.8 MCH 28.9 MCHC 32.5 RDW Std Deviation 43.3 RDW Coeff of [place] 13.3 Plt Count 353 MPV 10.0 Immature Gran % (Auto) 1.100 H Neut % (Auto) 65.8 Lymph % (Auto) 21.0 [place] % (Auto) 7.0 Eos % (Auto) 4.1 Baso % (Auto) 1.0 Absolute Neuts (auto) 6.2 Absolute Lymphs (auto) 1.98 Nucleated RBC % 0 Sodium 141 Potassium 4.1 Chloride 107 Carbon Dioxide 27.0 Anion Gap 7 BUN 31 H Creatinine 1.34 H Estim Creat Clear Calc 49.10 Est GFR (MDRD) Af Amer 67 Est GFR (MDRD) Non-Af 55 L BUN/Creatinine Ratio 23.1 H Glucose 124 H Calcium 9.9 Total Bilirubin 0.30 AST 16 ALT 33 Alkaline Phosphatase 59 Total Protein 8.2 Albumin 4.2 Globulin 4.0 Albumin/Globulin Ratio 1.0 Lipase 152 H Urine Color Yellow Urine Clarity Clear Urine pH 8.0 Ur Specific [place] 1.015 Urine Protein 100 H Urine Glucose (UA) Normal Urine Ketones Negative Urine Occult Blood 10 H Urine Nitrite Negative Urine Bilirubin Negative Urine Urobilinogen Normal Ur Leukocyte Esterase 25 H Urine RBC 0-5 SEEN Urine WBC 0-5 SEEN Ur Squamous Epith Cells 0-5 SEEN Urine Bacteria 0 SEEN Urine Mucus 0 SEEN Radiography Diagnostic Testing: Clinical Impression(s) from Imaging Studies Abdomen/Pelvis CT 12/06/22 15:55 IMPRESSION: Possible infectious process involving the right renal collecting system, clinical correlation recommended. Over distended gallbladder with tiny gallstones. If indicated, this can be further assessed with right upper quadrant ultrasound. No acute appendicitis or bowel obstruction. Electronically Signed: Mari Pate MD at 17:04 EDT , Gallbladder Ultrasound 12/06/22 17:06 IMPRESSION: Slightly over distended gallbladder with sludge and gallstone is described. Positive Rushing sign, nonspecific in the absence of additional signs of acute cholecystitis. However, due to increased distention, if clinical concern for acute cholecystitis remains, recommend dedicated HIDA scan. Remainder of the right upper quadrant ultrasound. Electronically Signed: Mari Pate MD at 19:02 EDT , Discharge Plan Dx/Rx/DC Orders Clinical Impression: Nausea and vomiting, Acute cholecystitis Disposition Disposition: Acute Care Hospital [facility] Discharge Date/Time: 12/06/22 20:55 What to do if you have Problems For any increased pain, shortness of breath, bleeding, nausea or vomiting, chest pain, or any unexpected problems, contact your Primary Care Provider. Call [facility] ([phone]) or report to the closest Emergency Room. Call 911 if necessary. 12/07/22 1522 <Electronically signed by Hal Rivas MD> Cosigner Signature (if applicable): 12/06/222020 <Electronically signed by Terri ENGEL> CC: Love Crowley DO ~ Signed [facility] Work Phone: 1(536) 135-116909-04-2023 Progress note Author [facility] December 07, 2022 2:30pm Note Date/Time December 07, 2022 2:30pm [facility] Medical Records Department [address] [place] [id number] Progress Note - Hospitalist 12/07/22 1427 MR#: [id number] Acct: [id number] Name: SINDY GREENFIELD Rep #:[id number] : 1950 72 From: Gil Mcclelland DO PCP: Love Crowley DO Status:ADM I N Location: [place] [address] Reason for Visit Reason for Visit: Diagnoses Other specified diabetes mellitus without complications (12/06/22) Essential (primary) hypertension (12/06/22) Acute cholecystitis (12/06/22) Subjective Subjective Patient was seen and examined today, he had a laparoscopic cholecystectomy today, at the time my examination he was able to sit up at the bedside, I discontinued his oxygen and we will monitor his pulse ox. Patient will be receiving his blood pressure medication Objective Data Objective Data Vital Signs: Vital Signs Temp Pulse Resp BP Pulse Ox O2 Del Method O2 Flow Rate 97.6 F L 66 18 150/61 H 95 Room Air 2 12/07/22 13:26 12/07/22 14:21 12/07/22 14:21 12/07/22 13:26 12/07/22 14:21 12/07/22 14:21 12/07/22 13:26 Oxygen Flow Rate (L/min) 2 Oxygen Delivery Method Room Air Weight: 79.2 kg Body Mass Index (BMI) 25.4 Intake & Output: Intake and Output for Last 24 Hours 12/05/22 12/06/22 12/07/22 23:59 23:59 23:59 Intake Total 60 60 2181.0 / 2181.0 Balance 60 60 2181.0 / 2181.0 Lab / Micro Data 12/07/22 05:31 12/07/22 05:31 Labs: Laboratory Results - last 24 hr 12/06/22 16:00: WBC 9.4, RBC 4.29 L, Hgb 12.4 L, Hct 38.1 L, MCV 88.8, MCH 28.9,MCHC 32.5, RDW Std Deviation 43.3, RDW Coeff of [place] 13.3, Plt Count 353, MPV 10.0, Immature Gran % (Auto) 1.100 H, Neut % (Auto) 65.8, Lymph % (Auto) 21.0, [place] % (Auto) 7.0, Eos % (Auto) 4.1, Baso % (Auto) 1.0, Absolute Neuts (auto) 6.2, Absolute Lymphs (auto) 1.98, Nucleated RBC % 0, Sodium 141, Potassium 4.1, Chloride 107, Carbon Dioxide 27.0, Anion Gap 7, BUN 31 H, Creatinine 1.34 H, Estim Creat Clear Calc 49.10, Est GFR (MDRD) Af Amer 67, Est GFR (MDRD) Non-Af 55 L, BUN/Creatinine Ratio 23.1 H, Glucose 124 H, Calcium 9.9, Total Bilirubin 0.30, AST 16, ALT 33, Alkaline Phosphatase 59, Total Protein 8.2, Albumin 4.2, Globulin 4.0, Albumin/Globulin Ratio 1.0, Lipase 152 H 12/06/22 19:53: Urine Color Yellow, Urine Clarity Clear, Urine pH 8.0, Ur Specific [place] 1.015, Urine Protein 100 H, Urine Glucose (UA) Normal, Urine Ketones Negative, Urine Occult Blood 10 H, Urine Nitrite Negative, Urine Bilirubin Negative, Urine Urobilinogen Normal, Ur Leukocyte Esterase 25 H, UrineRBC 0-5 SEEN, Urine WBC 0-5 SEEN, Ur Squamous Epith Cells 0-5 SEEN, Urine Bacteria 0 SEEN, Urine Mucus 0 SEEN 12/07/22 00:06: POC Glucose 151 H 12/07/22 05:31: WBC 12.9 H, RBC 3.83 L, Hgb 11.4 L, Hct 33.7 L, MCV 88.0, MCH 29.8, MCHC 33.8, RDW Std Deviation 42.9, RDW Coeff of [place] 13.2, Plt Count 315, MPV 9.7, Immature Gran % (Auto) 0.500, Neut % (Auto) 82.4 H, Lymph % (Auto) 8.1 L, [place] % (Auto) 8.3, Eos % (Auto) 0.2, Baso % (Auto) 0.5, Absolute Neuts (auto)10.7 H, Absolute Lymphs (auto) 1.05, Nucleated RBC % 0, Sodium 144, Potassium 3.9, Chloride 112 H, Carbon Dioxide 25.0, Anion Gap 7, BUN 25 H, Creatinine 1.33H, Estim Creat Clear Calc 49.47, Est GFR (MDRD) Af Amer 68, Est GFR (MDRD) Non-Af 56 L, BUN/Creatinine Ratio 18.8, Glucose 126 H, Hemoglobin A1c 6.3 H, Calcium8.7, Total Bilirubin 0.20, AST 21, ALT 33, Alkaline Phosphatase 53, Total Protein 7.2, Albumin 3.6, Globulin 3.6, Albumin/Globulin Ratio 1.0 12/07/22 06:29: POC Glucose 118 H 12/07/22 12:41: POC Glucose 167 H Radiography Diagnostic Testing: Radiology Impression Abdomen/Pelvis CT 12/06/22 15:55 IMPRESSION: Possible infectious process involving the right renal collecting system, clinical correlation recommended. Over distended gallbladder with tiny gallstones. If indicated, this can be further assessed with right upper quadrant ultrasound. No acute appendicitis or bowel obstruction. Electronically Signed: Mari Pate MD at 17:04 EDT , Gallbladder Ultrasound 12/06/22 17:06 IMPRESSION: Slightly over distended gallbladder with sludge and gallstone is described. Positive Rushing sign, nonspecific in the absence of additional signs of acute cholecystitis. However, due to increased distention, if clinical concern for acute cholecystitis remains, recommend dedicated HIDA scan. Remainder of the right upper quadrant ultrasound. Electronically Signed: Mari Pate MD at 19:02 EDT , Physical Exam Const alert, oriented x3, no apparent distress, average body habitus and healthy appearing General Appearance: cooperative, well kempt and well developed Orientation / Consciousness: awake, oriented to person, oriented to place and oriented to time HEENT normocephalic, head/scalp atraumatic and moist oral mucous membranes Eyes PERRL, EOMs intact bilaterally and conjunctivae normal Neck supple, no JVD, thyroid normal and no carotid bruits General: trachea midline Resp normal respiratory effort, no retractions, no use of accessory muscles and clearto auscultation bilaterally Auscultation: Negative for rales, rhonchi or wheezes Cardio regular rate, regular rhythm, S1 normal heart sound, S2 normal heart sound, no murmurs, no rub and no gallops Extremity no clubbing, cyanosis or edema Skin no rashes or lesions noted General Skin Exam: no breakdown Neuro oriented x3, CN's II-XII intact bilaterally, moves all extremities, no focal motor deficits and no sensory deficits noted Sensorium / Orientation: awake and alert Speech: speech normal Psych affect normal Assessment & Plan Assessment/Plan (1) Hypertension: QUALIFIERS: Hypertension type: unspecified Qualified Code(s): I10- Essential (primary) hypertension PLAN: Plan 1. Essential hypertension-patient's blood pressures improved, he will resume losartan 25 mg daily for blood pressure control #2 type 2 diabetes-patient will resume his glipizide and losartan after discharge #3 hypothyroidism-patient is on Synthroid, monitor, evaluate, assess, treat #4 hyperlipidemia-patient is on fenofibrate and Zetia, monitor, evaluate, assess, treat #5 status post laparoscopic cholecystectomy-I discussed his care with general surgery today. Patient appears medically stable at this time Total clinical time spent by myself addressing the patient's medical issues, reviewing all of his data, and collaborating with the patient's care team: 25 minutes Charges/Coding Visit Charges Inpatient E&M: 26924 Subs Hosp L1 12/07/22 1430 <Electronically signed by Gil Mcclelland DO> Cosigner Signature (if applicable): CC: ~ Signed [facility] Work Phone: 1(282) 537-113009-04-2023 Procedure [facility] 12-07-2022 Procedure [facility]09-03-2023 Progress note Author Marty Feliciano [facility] December 06, 2022 9:25pm Note Date/Time December 06, 2022 8:50pm [facility] Medical Records Department [address] [place] [address] Progress Note - Hospitalist 12/06/222045 MR#: [id number] Acct: [id number] Name: SINDY GREENFIELD Rep #:[id number] : 1950 72 From: Marty Feliciano MD PCP: Love Crowley DO Status:ADM I N Location: [place] [address] Reason for Visit Reason for Visit: Diagnoses Acute cholecystitis (12/06/22) Subjective Subjective Patient is a 72-year-old male with a significant history of hypertension; diabetes mellitus with nephropathy; CKD and neuropathy who presents emergency department with right upper quadrant pain that started after eating lunch at [facility]. His pain started about an hour and a half after he has eating. He described the pain as dull. The pain is at his epigastric area. He denies any aggravating factors to the pain. He received morphine IV at the emergency department that helped with his pain. His pain is nonradiating but he had a tenderness of his right upper quadrant upon examination by general surgeon. Patient has been diagnosed with acute on chronic cholecystitis and internal medicine service has been consulted for preoperative surgical evaluation especially as patient recently came to emergency department for chest pain on 11/30/2022. He reported that on 11/30/2022 the chest pain was also epigastric but at that time the pain radiated into his chest. At the emergency department patient was found to have severely elevated blood pressure which came down without any antihypertensive medication. Of note patient is on losartan which he reports compliance with. Objective Data Objective Data Vital Signs: Vital Signs Temp Pulse Resp BP Pulse Ox O2 Del Method 96.8 F L 67 18 163/69 H 94 Room Air 12/06/22 15:44 12/06/22 19:55 12/06/22 19:55 12/06/22 19:55 12/06/22 19:55 12/06/22 19:55 Oxygen Delivery Method Room Air Weight: 83.597 kg Body Mass Index (BMI) 27.2 Intake & Output: Intake and Output for Last 24 Hours 12/04/22 12/05/22 12/06/22 23:59 23:59 23:59 Intake Total Balance Lab / Micro Data Attestation: I reviewed the patient's lab results. 12/06/22 16:00 12/06/22 16:00 Labs: Laboratory Results - last 24 hr 12/06/22 16:00: WBC 9.4, RBC 4.29 L, Hgb 12.4 L, Hct 38.1 L, MCV 88.8, MCH 28.9,MCHC 32.5, RDW Std Deviation 43.3, RDW Coeff of [place] 13.3, Plt Count 353, MPV 10.0, Immature Gran % (Auto) 1.100 H, Neut % (Auto) 65.8, Lymph % (Auto) 21.0, [place] % (Auto) 7.0, Eos % (Auto) 4.1, Baso % (Auto) 1.0, Absolute Neuts (auto) 6.2, Absolute Lymphs (auto) 1.98, Nucleated RBC % 0, Sodium 141, Potassium 4.1, Chloride 107, Carbon Dioxide 27.0, Anion Gap 7, BUN 31 H, Creatinine 1.34 H, Estim Creat Clear Calc 49.10, Est GFR (MDRD) Af Amer 67, Est GFR (MDRD) Non-Af 55 L, BUN/Creatinine Ratio 23.1 H, Glucose 124 H, Calcium 9.9, Total Bilirubin 0.30, AST 16, ALT 33, Alkaline Phosphatase 59, Total Protein 8.2, Albumin 4.2, Globulin 4.0, Albumin/Globulin Ratio 1.0, Lipase 152 H 12/06/22 19:53: Urine Color Yellow, Urine Clarity Clear, Urine pH 8.0, Ur Specific [place] 1.015, Urine Protein 100 H, Urine Glucose (UA) Normal, Urine Ketones Negative, Urine Occult Blood 10 H, Urine Nitrite Negative, Urine Bilirubin Negative, Urine Urobilinogen Normal, Ur Leukocyte Esterase 25 H, Urine RBC 0-5 SEEN, Urine WBC 0-5 SEEN, Ur Squamous Epith Cells 0-5 SEEN, Urine Bacteria 0 SEEN, Urine Mucus 0 SEEN Radiography Diagnostic Testing: Radiology Impression Abdomen/Pelvis CT 12/06/22 15:55 IMPRESSION: Possible infectious process involving the right renal collecting system, clinical correlation recommended. Over distended gallbladder with tiny gallstones. If indicated, this can be further assessed with right upper quadrant ultrasound. No acute appendicitis or bowel obstruction. Electronically Signed: Mari Pate MD at 17:04 EDT Reading Location ID and State: [place] , Service support , Gallbladder Ultrasound 12/06/22 17:06 IMPRESSION: Slightly over distended gallbladder with sludge and gallstone is described. Positive Rushing sign, nonspecific in the absence of additional signs of acute cholecystitis. However, due to increased distention, if clinical concern for acute cholecystitis remains, recommend dedicated HIDA scan. Remainder of the right upper quadrant ultrasound. Electronically Signed: Mari Pate MD at 19:02 EDT , Physical Exam Narrative Physical exam: General: Well-nourished, well-developed. Head: Normocephalic, atraumatic, no tenderness Eyes: Vision is grossly intact. EOMI ENT, no trauma, moist mucous membranes, no rhinorrhea Neck: Nontender, No thyromegaly. CVS: Regular rate and rhythm. S1-S2 present. No murmur, gallop or rub. Respiratory : clear to auscultation bilaterally, chest wall nontender Abdomen: Soft, nontender, nondistended, normal bowel sounds, no masses : Deferred Back: Nontender, no CVA tenderness, no midline spinal tenderness, deformities, step-offs Extremities: Nontender full range of motion, no trauma Skin: Normal color, no trauma, abrasions Neuro: Alert, oriented, cranial nerves II through XII grossly intact. Psychiatry: Normal mood. Normal affect. Not depressed. Not anxious. Assessment & Plan Assessment/Plan (1) Acute cholecystitis: (2) Hypertension: QUALIFIERS: Hypertension type: unspecified Qualified Code(s): I10- Essential (primary) hypertension (3) Diabetes 1.5, managed as type 2: PLAN: Plan Acute cholecystitis Impression of gallbladder ultrasound by radiology: Slightly over distended gallbladder with sludge and gallstone is described. Positive Rushing sign, nonspecific in the absence of additional signs of acute cholecystitis. However, due to increased distention, if clinical concern for acute cholecystitis remains, recommend dedicated HIDA scan. Ultrasound was independently interpreted, agrees with radiology interpretation. Abdomen/pelvis CT with over distended gallbladder containing stones. ACS NSQIP surgical risk calculator with above average risk of cardiopulmonary and others. However patient does not have any acute respiratory or cardiac issues that is of concern. And may proceed with surgery. However will order telemetry. Preoperative EKG ordered. Given Zosyn in the emergency department and continued by general surgery. Management per primary (general surgery). Hypertensive urgency Highest systolic blood pressure in emergency department was 209. Patient thinksthat his blood pressure was elevated because he vomited. Other contributing factors to his elevated blood pressure could be his pain. Inthe setting of patient who will be n.p.o. for surgery would hold home losartan. Vasotec IV [id number] ordered. As needed hydralazine ordered. Trend blood pressure and adjust blood pressure medications. Diabetes mellitus Blood glucose is stable. In the setting of patient will be made n.p.o. we will hold outpatient metformin and glipizide. Accu-Chek with correction scale insulin ordered. CKD stage IIIa Stable DVT prophylaxis SCDs Time spent in the patient's overall evaluation,decision-making process, review of diagnostic data, adjustment of management, discussion with other providers, nursing nursing and ancillary staff involved in patient's care documentation, 45minutes. Charges/Coding Visit Charges Inpatient E&M: 62570 Subs Hosp L3 12/06/222124 <Electronically signed by Marty Feliciano MD> Cosigner Signature (if applicable): CC: ~ Signed [facility] Work Phone: 1(830) 953-415109-03-2023 History and physical note Author Markell Mitchell [facility] December 06, 2022 8:40pm Note Date/Time December 06, 2022 8:40pm [facility] Medical Records Department [address] [place] [address] History & Physical Exam 12/06/222030 MR#: [id number] Acct: [id number] Name: SINDY GREENFIELD Rep #:[id number] : 1950 72 From: Markell Hernández PCP: Love Crowley, DO Status:ADM I N Location: [address] HPI - General General Date of Service: 12/06/22 Chief Complaint: Acute onset right upper quadrant abdominal pain HPI Narrative SINDY GREENFIELD, is a 72 M who presents to [facility] after experiencing acute onset right upper quadrant abdominal pain at approximately 1400 this afternoon. Patient states that he was out to dinner at [facility] and ate a salad with dressing and part of a steak with a potato at approximately 1215. Thereafter he experienced the abdominal pain described above as well as some associated nausea. In route to the hospital he did have some vomiting. Hedenies any associated fevers or chills. Mr. Greenfield reports that he presented here to [facility] ER 5 days ago with the same complaints. At that time he was evaluated for chest pain, but was informed that he had completely normal work-up. Patient's ER work-up today is notable for CMP without abnormalities of his LFTs. CBC shows normal white blood cell count but slightly elevated immature granulocytes. CT imaging of the abdomen pelvis was obtained which shows some haziness around the right renal pelvis as well as a over distended gallbladder. Therefore right upper quadrant ultrasound was obtained reflexively and confirmed the presence of a thickened gallbladder wall at 3.7 mm. Ultrasound also confirmed the presence of a 1.1 cm gallstone in the neck ofthe gallbladder. The admin prog coord reported a positive sonographic Rushing sign. In the end radiology concluded that all of these were nonspecific and recommended a HIDA scan if cholecystitis was to be more fully evaluated. Mr. Greenfield confirms a history of hypertension and confesses that he is not checked his blood pressures regularly at home. His blood pressure in the ER is ranged as high as 210/150s he denies any headaches or symptoms from this high blood pressure. He additionally confirms a history of prostate cancer status post prostatectomy (this represents his only abdominal surgery) and diabetes mellitus with a HbA1c less than 6.5. [facility] Home Medications levothyroxine 75 mcg tablet 100 mcg PO DAILY THYROID 01/08/13 [History Last Taken 11/30/18 04:45] metformin 500 mg tablet,extended release 24 hr 1,000 mg PO BID DIABETES 01/08/13[History Last Taken Unknown] cczuznnz-xbi-munpf acid 0.4 mg-lycopene 300 mcg-lutein 250 mcg tablet (Centrum Silver) 1 ea PO DAILY SUPPLEMENT' 01/08/13 [History Last Taken Unknown] vit A 300 mcg-C 200 mg-E 27 mg-lutein 2 mg and minerals tablet (Ocuvite with Lutein) 1 ea PO DAILY EYE VITAMIN 03/08/14 [History Last Taken Unknown] omega 3-dha 60 mg-epa 90 mg-fish oil 500 mg capsule, delayed release (Fish Oil) 1,000 mg PO BID 05/24/15 [History Last Taken Unknown] potassium citrate 10 mEq (1,080 mg) tablet,extended release (Urocit-K 10) 10 meqPO DAILY SUPPLEMENT 05/24/15 [History Last Taken 06/03/15 04:30] fenofibrate nanocrystallized 145 mg tablet 145 mg PO DAILY CHOLESTEROL 10/19/17 [History Last Taken Unknown] ezetimibe 10 mg tablet 10 mg PO DAILY 12/06/22 [History Last Taken Unknown] glipizide 5 mg tablet 2.5 mg PO QHS 12/06/22 [History Last Taken Unknown] losartan 25 mg tablet 25 mg PO DAILY 12/06/22 [History Last Taken Unknown] Allergy/AdvReac Type Severity Reaction Status Date / Time Qqohthg-RSL-VvS Reductase AdvReac Abd Verified 12/06/22 15:44 Inhibitor cramps/diarrhea [Onvldlg-Xec-Vqz Reductase Inhibitor] Social History Smoking Status: Never smoker ROS Constitutional Constitutional: Denies chills, fatigue or fever(s) Gastrointestinal Gastrointestinal: Reports abdominal pain, nausea and vomiting Vital Signs Vital Signs Vital Signs: 12/06/22 15:44 12/06/22 19:20 12/06/22 19:55 Temperature 96.8 F L Temperature Source Temporal Pulse Rate 71 65 67 Respiratory Rate 18 17 18 Blood Pressure 209/155 H 172/72 H 163/69 H Blood Pressure Mean 173 105 100 Pulse Ox 98 94 94 Oxygen Delivery Method Room Air Room Air Room Air Weight Weight: 184 lb 4.8 oz Body Mass Index (BMI) 27.2 Physical Exam Const alert, oriented x3 and no apparent distress General Appearance: cooperative Resp normal respiratory effort GI GI Narrative: Hirsute abdominal wall, nondistended, lower abdomen with well-healed laparoscopyport site scars, soft with focal tenderness in the right upper quadrant. Positive Rushing sign with palpation of a very specific area in his right upper quadrant. Results Lab / Micro Data 12/06/22 16:00 12/06/22 16:00 Labs: Laboratory Results - last 24 hr 12/06/22 16:00: WBC 9.4, RBC 4.29 L, Hgb 12.4 L, Hct 38.1 L, MCV 88.8, MCH 28.9,MCHC 32.5, RDW Std Deviation 43.3, RDW Coeff of Tico 13.3, Plt Count 353, MPV 10.0, Immature Gran % (Auto) 1.100 H, Neut % (Auto) 65.8, Lymph % (Auto) 21.0, Beauregard % (Auto) 7.0, Eos % (Auto) 4.1, Baso % (Auto) 1.0, Absolute Neuts (auto) 6.2, Absolute Lymphs (auto) 1.98, Nucleated RBC % 0, Sodium 141, Potassium 4.1, Chloride 107, Carbon Dioxide 27.0, Anion Gap 7, BUN 31 H, Creatinine 1.34 H, Estim Creat Clear Calc 49.10, Est GFR (MDRD) Af Amer 67, Est GFR (MDRD) Non-Af 55 L, BUN/Creatinine Ratio 23.1 H, Glucose 124 H, Calcium 9.9, Total Bilirubin 0.30, AST 16, ALT 33, Alkaline Phosphatase 59, Total Protein 8.2, Albumin 4.2, Globulin 4.0, Albumin/Globulin Ratio 1.0, Lipase 152 H 12/06/22 19:53: Urine Color Yellow, Urine Clarity Clear, Urine pH 8.0, Ur Specific [place] 1.015, Urine Protein 100 H, Urine Glucose (UA) Normal, Urine Ketones Negative, Urine Occult Blood 10 H, Urine Nitrite Negative, Urine Bilirubin Negative, Urine Urobilinogen Normal, Ur Leukocyte Esterase 25 H, UrineRBC 0-5 SEEN, Urine WBC 0-5 SEEN, Ur Squamous Epith Cells 0-5 SEEN, Urine Bacteria 0 SEEN, Urine Mucus 0 SEEN Radiology Impression Abdomen/Pelvis CT 12/06/22 15:55 IMPRESSION: Possible infectious process involving the right renal collecting system, clinical correlation recommended. Over distended gallbladder with tiny gallstones. If indicated, this can be further assessed with right upper quadrant ultrasound. No acute appendicitis or bowel obstruction. Electronically Signed: Mari Pate MD at 17:04 EDT , Gallbladder Ultrasound 12/06/22 17:06 IMPRESSION: Slightly over distended gallbladder with sludge and gallstone is described. Positive Rushing sign, nonspecific in the absence of additional signs of acute cholecystitis. However, due to increased distention, if clinical concern for acute cholecystitis remains, recommend dedicated HIDA scan. Remainder of the right upper quadrant ultrasound. Electronically Signed: Mari Pate MD at 19:02 EDT , Assessment & Plan Assessment/Plan (1) Acute cholecystitis: PLAN: This is a 72-year-old male who presents with complaints of recurrent rightupper quadrant discomfort with associated nausea and vomiting. ER work-up for his right upper quadrant discomfort included both CT and ultrasound imaging. Both of these identify some thickening of his gallbladder as well as gallbladderdistention. The former showed in better detail the presence of a 1.1 cm gallbladder neck stone. Notably, patient has normal white blood cell count and normal LFTs with CMP. I believe he represents a case of acute on chronic cholecystitis given his normal labs, but also the presence of a positive Rushing sign. Therefore, based on this diagnosis and patient's prior presentation, I recommend proceeding with a laparoscopic cholecystectomy and intraoperative cholangiogram tomorrow. Procedure was described in detail as well as post procedure activity restrictions. Patient expresses his interest in proceeding as described. In the meantime we will have the hospitalist service evaluate given his accelerated hypertension displayed during his earlier presentation here and hopefully he will be further optimized prior to surgery. Neuro: As needed Dilaudid (patient states he wishes to not be placed on oxycodone postoperatively) Pulm/CV: Incentive spirometer, hospitalist consult to optimize hypertension preop FEN/GI: Clear liquid diet then n.p.o. after midnight, CMP in the a.m., plan for laparoscopic cholecystectomy tomorrow a.m. : Patient with UA pending for haziness of right renal pelvis Heme/ID: CBC in a.m., empiric coverage with Zosyn Endo: Bnxhd-vq-faum glucose testing, overall excellent control of blood sugar despite diabetes diagnosis per patient and recall of A1c Proph: SCDs Dispo: Admit to inpatient Charges/Coding Visit Charges Inpatient E&M: 47553 Init Hosp L2 12/06/222039 <Electronically signed by Markell Mitchell MD> Cosigner Signature (if applicable): CC: Dr. Markell Mitchell MD; Love Crowley DO~ Signed [facility] Work Phone: [phone] 273-667408-28-2023 Discharge summary Author Leonides Arauz [facility] November 30, 2022 11:08pm Note Date/Time November 30, 2022 9: 57pm [facility] Medical Records Department [address] [place] [address] Emergency Department Summary 11/30/22 MR#: [id number] Acct: [id number] Name: SINDY GREENFIELD Rep #:[id number] : 1950 72 From: Leonides Arauz MD PCP: Love Crowley DO Status:REG E R Location: ED HPI History of Present Illness Chief Complaint: Chest Pain Informant: patient and spouse/S.O. Narrative Narrative: Patient presents with pains. This patient has been retired for about 3 and half years. 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 Rather than coming back for an 8-hour position he came back for an 8-hour job 3 days in a row. He states at the end of this he was aching all over. All of his joints ached and he was just sore. He took some Tylenol for this and that has helped. He has taken it several times each day. He then noticed that he had a little bit of nasal congestion. 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 So he took some zvrc-nxl-umyhcmw decongestant. He then felt more congested so he took Benadryl which is something he has taken it on occasion. He then stated he got some epigastric pain. He points to the area kind of the lower sternum and upper epigastric area. He also did have some burning in his throat like reflux. He was not short of breath. He was just concerned with the lower chest pain, upperabdominal pain, achiness and all the symptoms of something was wrong. PFSH PFSH Home Medications levothyroxine 75 mcg tablet 100 mcg PO DAILY THYROID 01/08/13 [History Last Taken 11/30/18 04:45] metformin 500 mg tablet,extended release 24 hr 1,000 mg PO DAILY DIABETES 01/08/13 [History Last Taken Unknown] rdjogchu-ntw-ezpgo acid 0.4 mg-lycopene 300 mcg-lutein 250 mcg tablet (Centrum Silver) 1 ea PO DAILY SUPPLEMENT' 01/08/13 [History Last Taken Unknown] vit A 300 mcg-C 200 mg-E 27 mg-lutein 2 mg and minerals tablet (Ocuvite with Lutein) 1 ea PO DAILY EYE VITAMIN 03/08/14 [History Last Taken Unknown] bisoprolol 2.5 mg-hydrochlorothiazide 6.25 mg tablet 1 ea PO DAILY BP 05/24/15 [History Last Taken 06/03/15 04:30] omega 3-dha 60 mg-epa 90 mg-fish oil 500 mg capsule, delayed release (Fish Oil) 1,000 mg PO DAILY 05/24/15 [History Last Taken Unknown] potassium citrate 10 mEq (1,080 mg) tablet,extended release (Urocit-K 10) 10 meqPO DAILY SUPPLEMENT 05/24/15 [History Last Taken 06/03/15 04:30] aspirin 81 mg tablet,delayed release (Lo-Dose Aspirin) 81 mg PO DAILY 10/19/17 [History Last Taken Unknown] fenofibrate nanocrystallized 145 mg tablet 145 mg PO DAILY CHOLESTEROL 10/19/17 [History Last Taken Unknown] ciprofloxacin HCl 500 mg tablet 500 mg PO BID #20 tabs 11/30/18 [Rx Last Taken Unknown] docusate sodium 100 mg capsule 100 mg PO BID #20 caps 11/30/18 [Rx Last Taken Unknown] Allergy/AdvReac Type Severity Reaction Status Date / Time Kaqslhi-PSV-UwB Reductase AdvReac Abd Verified 11/30/18 06:17 Inhibitor cramps/diarrhea [Hkwwshu-Eqn-Yqd Reductase Inhibitor] Social History Smoking Status: Never smoker ROS ROS ED Constitutional Constitutional ED: Denies chills, fever(s), subjective or sweats Eyes Eyes: Denies change in vision ENT ENT ED: Reports rhinorrhea and sore throat; Denies ear pain Cardiovascular Cardiovascular: Reports as per HPI Respiratory/Chest Respiratory/Chest: Denies cough, dyspnea or dyspnea on exertion Gastrointestinal Gastrointestinal: Reports abdominal pain and other Details: See history of present illness. Mild epigastric discomfort. ; Denies diarrhea, nausea or vomiting Musculoskeletal Musculoskeletal: Reports arthralgias Integumentary Denies Abrasions or rash Psychiatric Psychiatric: Denies anxiety Endocrine Endocrinology: Denies polydipsia or polyuria Hematologic/Lymphatic Hematologic/Lymphatic: Denies easy bleeding or easy bruising Allergic/Immunologic Allergic/Immunologic ED: Denies urticaria EXAM Physical Exam Narrative Exam Narrative: CONSTITUTIONAL: Patient is nontoxic in appearance. The patient looks comfortable. Work of breathing looks normal. HEENT: No notable trauma. Mucous membranes moist. No sinus tenderness. No indication of pain with swallowing. No sign of exudate or erythema. EYES: No conjunctival injection. No proptosis. NECK:No JVD. No stridor. CARDIOVASCULAR: Regular rate. Regular rhythm. No notable murmur. No JVD. RESPIRATORY: No respiratory distress. Breathing is unlabored. No wheezes. No rhonchi. No rales. No pain with a deep breath. No chest wall tenderness. Saturations are normal at 98% on room air showing no hypoxia. GASTROINTESTINAL: Not distended. Bowel sounds are normal. No tenderness. No guarding. No rebound. No palpable mass. No bruit is heard. GENITOURINARY: No tenderness over the bladder. No CVA tenderness. MUSCULOSKELETAL: Atraumatic. No peripheral edema. No cord. No tenderness along the deep venous system. No asymmetry. No distended veins. He has had knee replacement. There were no signs of any swollen or red joints. He states that just all of his joints were sore. But none of them swelled. Exam is normal. NEUROLOGICAL: Patient is alert and appropriate. No focal deficit noted. SKIN: No noted rashes. No diaphoresis. PSYCHIATRIC: Patient is calm. Mood is appropriate. Const Vital Signs: 11/30/22 19:11 11/30/22 20:11 11/30/22 20:12 Temperature 98.0 F Temperature Source Temporal Pulse Rate 80 80 Respiratory Rate 18 18 Respiratory Effort Blood Pressure 169/92 H 152/75 H Blood Pressure Mean 117 100 Pulse Ox 98 97 Oxygen Delivery Method Room Air Room Air Room Air 11/30/22 20:13 Temperature Temperature Source Pulse Rate Respiratory Rate Respiratory Effort Normal Non-Labored Blood Pressure Blood Pressure Mean Pulse Ox Oxygen Delivery Method MDM MDM MDM Narrative Medical decision making narrative: Patient CBC is normal other than hemoglobin a bit low at 12.1 but this is not the source of his symptoms. Platelets and white count are normal. Patient's electrolytes show some mild elevation in BUN/creatinine. This is a slight elevation in his creatinine above baseline. He will be given a small amount of fluids. Glucose is minimally up at 125 showing good control. Troponin is negative at 7 despite days of symptoms. Repeat troponin is still negative. I rechecked the patient. He is feeling well. He would like to go home. I think his symptoms are likely caused by a combination of heading back to work after being off for 3 years. He then had some epigastric discomfort after eating meal and taking multiple different medications nlkg-jdk-vglqfxb. We discussed reasons to return. Lab Data Attestation: I reviewed the patient's lab results. Labs: Laboratory Results - last 24 hr 11/30/22 11/30/22 19:55 22:05 WBC 8.1 RBC 4.09 L Hgb 12.1 L Hct 36.6 L MCV 89.5 MCH 29.6 MCHC 33.1 RDW Std Deviation 44.5 H RDW Coeff of [place] 13.4 Plt Count 268 MPV 10.3 Immature Gran % (Auto) 0.400 Neut % (Auto) 63.7 Lymph % (Auto) 18.8 L Beauregard % (Auto) 10.0 Eos % (Auto) 6.2 H Baso % (Auto) 0.9 Absolute Neuts (auto) 5.2 Absolute Lymphs (auto) 1.53 Nucleated RBC % 0 Sodium 139 Potassium 4.3 Chloride 107 Carbon Dioxide 26.0 Anion Gap 6 BUN 25 H Creatinine 1.76 H Estim Creat Clear Calc 37.38 Est GFR (MDRD) Af Amer 49 L Est GFR (MDRD) Non-Af 41 L BUN/Creatinine Ratio 14.2 Glucose 125 H Calcium 9.3 Troponin I High Sens 7 8 Radiography Diagnostic Testing: Clinical Impression(s) from Imaging Studies Chest X-Ray 11/30/22 19:20 IMPRESSION: No radiographic evidence of acute cardiopulmonary disease. Electronically Signed: Sudarshan Chan MD at 19:51 EDT , EKG Initial EKG: Comments: My independent interpretation the patient's EKG shows a normal sinus rhythm. Overall rate is 75. There is no ectopy. There is no acute ST elevation or depression. There is slight baseline variation. There is slight first-degree AV block with a MI interval of 202 ms. QRS and QTc are normal. Discharge Plan Triage Chief Complaint: Chest Pain ED Provider: Leonides Arauz Dx/Rx/DC Orders Clinical Impression: Arthralgia, Xiphoid pain, Epigastric pain Instructions: ED Epigastric Pain Uncertain Cause Prescriptions: No Action levothyroxine 75 MCG tablet 100 mcg PO DAILY metformin 500 MG tablet 1,000 mg PO DAILY fbdnhmys-qar-ZY-lycopen-lutein [Centrum Silver] 1 EACH tablet 1 ea PO DAILY vit A,C and H-wtzetl-rgjtdgsr [Ocuvite with Lutein] 1 EACH tablet 1 ea PO DAILY bisoprolol-hydrochlorothiazide 1 EACH tablet 1 ea PO DAILY potassium citrate [Urocit-K 10] 10 MEQ tablet extended release 10 meq PO DAILY omega 8-grd-zly-fish oil [Fish Oil] 500 MG capsule,delayed release(DR/EC) 1,000 mg PO DAILY Rx Instructions: WILL STOP 7 DAYS PRIOR TO SURGERY aspirin [Lo-Dose Aspirin] 81 MG tablet,delayed release (DR/EC) 81 mg PO DAILY Rx Instructions: WILL STOP 7 DAYS PRIOR TO SURGERY fenofibrate nanocrystallized 145 tablet 145 mg PO DAILY Patient Comments: ciprofloxacin HCl 500 MG tablet 500 mg PO BID Qty: 20 0RF docusate sodium 100 MG capsule 100 mg PO BID Qty: 20 0RF Primary Care Provider: Loev Crowley Referrals: Love Crowley, [Primary Care Provider] - 3-5 Days Disposition Disposition: Home, Self Care What to do if you have Problems For any increased pain, shortness of breath, bleeding, nausea or vomiting, chestpain, or any unexpected problems, contact your Primary Care Provider. Call [facility] ([phone]) or report to the closest Emergency Room. Call 911 if necessary. 11/30/222307 <Electronically signed by Leonides Arauz MD> Cosigner Signature (if applicable): CC: Love Crowley DO ~ Signed [facility] Work Phone: [phone]) 146-132306-07-2022 Miscellaneous Notes* Telephone Encounter - KOFI Cooley - 09/09/2021 9:46 AM EDT AISLINN 03/26/2021 Appointment scheduled for 09/29/2021 Please advise. Thank you. KOFI Cooley * Telephone Encounter - Kristi Camacho - 09/09/2021 9:37 AM EDT Pharmacy verified in [facility] Patient has been identified by name and [...] advise. Kristi Boyd Pss [facility] Miscellaneous Notes* Telephone Encounter - Hamida Montoya RN - 08/27/2021 2:47 PM EDT Faxed most recent ov notes and lab results to Dr. Tone Colon- endocrinology/[facility], per patient request. Reports he will see this doctor on , for his chronic kidney dx and DM. documented in this [facility]12-[facility]-2021 NoteHNO ID: [id number] Author: Eboni Cardozo APRN.ASSISTANT SCIENTIST Service: ? Author Type: Nurse Practitioner Type: [...] Lipitor [Atorvastatin Calcium], Niaspan [Niacin (Antihyperlipidemic)], Pravastatin, Thahhft-Xua-Aug Reductase Inhibitors, and Zocor [Simvastatin] MEDICATIONS Current [...] distal pulses, not se (more content not included)...[facility]09-28-2021 NoteHNO ID: [id number] Author: Brittany Mane APRN.ASSISTANT SCIENTIST Service: ? Author Type: Nurse Practitioner Type: Progress Notes Filed: 12/31/2020 2:30 PM Note Text: This note was created using NoteWriter. Subjective Jose Manuel Greenfield is a 70 year old male. 70 [...] history is provided by the patient. No transport aircrewman was used. Cough This is a new [...] COLONOSCOP W/ OR W/O [facility] SPEC 11/20/2011 Colonoscopy. repeat in 10 years - [facility] RADICAL PROSTATECTOMY 11/30/2018 - PAST SURGICAL HISTORY OF right 5th finger - REMOVAL OF TONSILS,<12 Y/O ALLERGIES Crestor [Rosuvastatin Calcium], Dust, Hayfever [Homeopathic Products], Lipitor [Atorvastatin Calcium], Niaspan [Niacin (Antihyperlipidemic)], Pravastatin, Xtjfvfs-Uws-Ocb Reductase Inhibitors, and Zocor [Simvastatin] MEDICATIONS levothyroxine [...] and gait problem. Skin (more content not included)...[facility]06-22-2021 NoteHNO ID: [id number] Author: Eboni Cardozo APRN.ASSISTANT SCIENTIST Service: ? Author Type: Nurse Practitioner Type: Progress Notes Filed: 09/24/2020 10:14 AM Note Text: 09/24/2020 Patient presents with: Recheck SUBJECTIVE: This is a 70 year old that is here today for Above Complaints. DIABETES MELLITUS: Mr. Greenfield was last seen 3 months ago. Since [...] Lipitor [Atorvastatin Calcium], Niaspan [Niacin (Antihyperlipidemic)], Pravastatin, Qjewajr-Bek-Sng Reductase Inhibitors, and Zocor [Simvastatin] MEDICATIONS Current [...] Latest Ref Rng AND (more content not included)...[facility]06-[facility] History of Past illness Narrative* Problem Noted Date Resolved Date DM w/o complication type II 09/16/201001/04 Unspecified sleep apnea 03/31/2005 01/29/20 15 HYPERLIPIDEMIA NEC/NOS 5 documented as of this encounter (statuses as of 08/27/2021) [facility] History of Past illness Narrative* Problem Noted Date Resolved Date DM w/o complication type II 09/16/201001/04 Unspecified sleep apnea 03/31/2005 01/29/20 15 HYPERLIPIDEMIA NEC/NOS 5 documented as of this encounter (statuses as of 09/09/2021) [facility] Author Megan Francis [facility] December 08, 2022 9:16am Note Date/Time December 08, 2022 9:16am [facility] Medical Records Department [address] [place] [address] Instructions for Home/Discharge Instructions 12/08/22912 MR#: [id number] Acct: [id number] Name: SINDY GREENFIELD Rep #:[id number] : 1950 72 From: Megan ENGEL PA-C PCP: Love Crowley, Status:ADM I N Discharge Instructions Diet Discharge Diet: Light diet - advance as tolerated Activity Discharge Activity: May Not Drive (3-5 days) and May Shower (tomorrow) Lifting Restrictions: 15 pounds for 2 weeks Dressing / Incision Call your doctor if your incision/area has: Continuous Slow Oozing, Sudden Increased Bleeding, Increased Pain/ Swelling, Increased Redness, Foul Smelling Discharge and Swelling at the incision site Call your doctor if you observe: Fever of 101 or Higher Suture Line Care: Avoid Pulling/Pushing and Avoid Pinching/Bending Remove Dressing in: 1 day Cleanse incision/area with: Soap & Water Additional Dressing/Incision Instructions:: Leave steri-strips in place for 1 week Follow Up Care Please Follow Up With: Markell Mitchell MD When: Please call our office to schedule a follow-up appointment for 7-10 days at [phone] Test Results: Test results from this visit will be discussed in further detail at your follow- up appointment, if applicable. Discharge Plan Admission Admit Date/Time: 12/06/22 20:28 Primary Reason for Your Visit: Acute cholecystitis Attending Provider: Markell Mitchell Primary Care Provider: Love Crowley Consulting Providers: Gil Mcclelland Instructions Additional Instructions / Restrictions: Recommend taking Tylenol for pain/discomfort You will be sent home with a small prescription for Ultram, which is a pain medication Recommend no lifting greater than 15 pounds for 2 weeks You may remove the plastic dressings tomorrow You will shower tomorrow Leave the steri-strips in place Follow-up with Dr. Mitchell in 7-10 days Discharge Orders/Prescriptions Prescriptions: New tramadol 50 mg Tablet 50 mg PO Q6H PRN PRN (Reason: Pain Score 4-10) 2 Days Qty: 8 0RF Continued levothyroxine 75 MCG tablet 100 mcg PO DAILY metformin 500 MG tablet 1,000 mg PO BID Centrum Silver 1 EACH tablet 1 ea PO DAILY potassium citrate [Urocit-K 10] 10 MEQ tablet extended release 10 meq PO DAILY Fish Oil 500 MG capsule,delayed release(DR/EC) 1,000 mg PO BID fenofibrate nanocrystallized 145 tablet 145 mg PO DAILY Patient Comments: losartan 25 mg tablet 25 mg PO DAILY glipizide 5 mg tablet 2.5 mg PO DINNER ezetimibe 10 mg tablet 10 mg PO DAILY PreserVision AREDS-2 250-90-40-1 mg capsule 1 tab PO BID Referrals / Follow Up: Love Crowley DO [Primary Care Provider] - Disposition Disposition (needs filled in before D/C Order can be placed): Home, Self Care 12/08/22 0916<Electronically signed by Megan ENGEL PA-C>Megan ENGEL PA-C CC: Dr. Gil Mcclelland, ; Love Crowley DO ~ Signed [facility] Work Phone: Discharge summary Author Megan [facility] December 08, 2022 9:25am Note Date/Time December 08, 2022 9:25am [facility] Medical Records Department [address] [place] [address] Discharge Summary 12/08/2216 MR#: [id number] Acct: [id number] Name: SINDY GREENFIELD Rep #:[id number] : 1950 72 From: Megan ENGEL PA-C PCP: Love Crowley DO Status:ADM I N [facility] Prov[facility] Date of Admission: 12/06/22 Primary Care Physician: Love Crowley DO Reason For Visit: ACUTE CHOLECYSTITIS Diagnosis Discharge Diagnosis (1) Hypertension: Status: Chronic Code(s): I10 - Essential (primary) hypertension Qualifiers: Hypertension type: unspecified Qualified Code(s): I10 - Essential (primary) hypertension Medications at Discharge Home Medications levothyroxine 75 mcg tablet 100 mcg PO DAILY THYROID 01/08/13 metformin 500 mg tablet,extended release 24 hr 1,000 mg PO BID DIABETES 01/08/13 hmxgdejc-ths-tywxi acid 0.4 mg-lycopene 300 mcg-lutein 250 mcg tablet (Centrum Silver) 1 ea PO DAILY SUPPLEMENT' 01/08/13 omega 3-dha 60 mg-epa 90 mg-fish oil 500 mg capsule, delayed release (Fish Oil) 1,000 mg PO BID supplement 05/24/15 potassium citrate 10 mEq (1,080 mg) tablet,extended release (Urocit-K 10) 10 meqPO DAILY SUPPLEMENT 05/24/15 fenofibrate nanocrystallized 145 mg tablet 145 mg PO DAILY CHOLESTEROL 10/19/17 ezetimibe 10 mg tablet 10 mg PO DAILY 12/06/22 glipizide 5 mg tablet 2.5 mg PO DINNER diabetes 12/06/22 losartan 25 mg tablet 25 mg PO DAILY 12/06/22 vit C 250 mg-vit E 90 mg-zinc 40 mg-copper 1 sm-frfdos-xghbuo capsule (PreserVision AREDS-2) 1 tab PO BID eye health 12/06/22 tramadol 50 mg tablet 50 mg PO Q6H PRN PRN Pain Score 4-10 2 days #8 tabs 12/08/22 Hospital Course Operations cholecystecomy Summary of Care Provided Minutes Spent on Discharge: 20 Hospital Course: Patient is a 72 y/o M who presented with an acute onset of right upper quadrant pain following eating lunch associated with nausea and vomiting. CT scan of the ab/pel and RUQ u/s demonstrated some thickening of the gallbladder wall. Dr. Mitchell performed a laparoscopic cholecystectomy with intraoperative cholangiogramon 12/07/22. Patient tolerated the procedure well. Upon discharge, patient noted incisional discomfort. He denies nausea, vomiting, fever. He is tolerating a regular diet well. Physical Exam Const alert, oriented x3 and no apparent distress GI GI Narrative: Abdomen- incisions c/d/i. No erythema or infection noted. Slight tenderness at the incision sites Weight / BMI Weight Weight: 174 lb 9.698 oz Body Mass Index (BMI) 25.4 ABG / Lab / Microbiology Data 12/07/22 05:31 12/07/22 05:31 Laboratory: Laboratory Results - last 24 hr 12/07/22 05:31: Hemoglobin A1c 6.3 H 12/07/22 12:41: POC Glucose 167 H 12/07/22 16:19: POC Glucose 148 H 12/07/22 21:47: POC Glucose 153 H 12/08/22 05:33: POC Glucose 121 H Radiography Diagnostic Testing: Radiology Impression Cholangiogram 12/07/22 10:35 IMPRESSION: Normal operative cholangiogram. Electronically Signed: Alexis Pastor MD at 17:06 EDT , D/C Instructions Discharge Diet: Light diet - advance as tolerated Call your doctor if your incision/area has: Continuous Slow Oozing, Sudden Increased Bleeding, Increased Pain/ Swelling, Increased Redness, Foul Smelling Discharge and Swelling at the incision site Call your doctor if you observe: Fever of 101 or Higher Suture Line Care: Avoid Pulling/Pushing and Avoid Pinching/Bending Cleanse incision/area with: Soap & Water Additional Dressing/Incision Instructions: Leave steri-strips in place for 1 week Please Follow Up With: Markell Mitchell MD When: Please call our office to schedule a follow-up appointment for 7-10 days at [phone] Meaningful Use Info Meaningful Use Diagnoses (Choose all that apply): None applicable Discharge Plan Admission Admit Date/Time: 12/06/22 20:28 Primary Reason for Your Visit: Acute cholecystitis Attending Provider: Markell Mitchell Primary Care Provider: Love Crowley Consulting Providers: Gil Mcclelland Instructions Additional Instructions / Restrictions: Recommend taking Tylenol for pain/discomfort You will be sent home with a small prescription for Ultram, which is a pain medication Recommend no lifting greater than 15 pounds for 2 weeks You may remove the plastic dressings tomorrow You will shower tomorrow Leave the steri-strips in place Follow-up with Dr. Mitchell in 7-10 days Discharge Orders/Prescriptions Prescriptions: New tramadol 50 mg Tablet 50 mg PO Q6H PRN PRN (Reason: Pain Score 4-10) 2 Days Qty: 8 0RF Continued levothyroxine 75 MCG tablet 100 mcg PO DAILY metformin 500 MG tablet 1,000 mg PO BID Centrum Silver 1 EACH tablet 1 ea PO DAILY potassium citrate [Urocit-K 10] 10 MEQ tablet extended release 10 meq PO DAILY Fish Oil 500 MG capsule,delayed release(DR/EC) 1,000 mg PO BID fenofibrate nanocrystallized 145 tablet 145 mg PO DAILY Patient Comments: losartan 25 mg tablet 25 mg PO DAILY glipizide 5 mg tablet 2.5 mg PO DINNER ezetimibe 10 mg tablet 10 mg PO DAILY PreserVision AREDS-2 250-90-40-1 mg capsule 1 tab PO BID Referrals / Follow Up: Love Crowley DO [Primary Care Provider] - Disposition Disposition (needs filled in before D/C Order can be placed): Home, Self Care 12/08/22 09 <Electronically signed by Megan ENGEL PA-C> Cosigner Signature (if applicable): CC: RADHA Francis; Love Crowley DO~ Signed [facility] Work Phone: Discharge summary Author Romie Tuttle [facility] April 13, 2023 10:48am Note Date/Time April 13, 2023 10 :48am [facility] Medical Records Department [address] [place] [address] Discharge Summary 04/13/23 1045 MR#: [id number] Acct: [id number] Name: SINDY GREENFIELD Rep #:[id number] : 1950 73 From: Romie Tuttle MD PCP: JOCELINE Morejon Status:ADM IN Location: ICU ICU10-1 Providers Date of Admission: 04/10/23 Date of Discharge: 04/13/23 Primary Care Physician: JOCELINE Morejon Reason For Visit: STEMI Diagnosis Discharge Diagnosis (1) ST elevation (STEMI) myocardial infarction involving right coronary artery: Status: Acute Code(s): I21.11 - ST elevation (STEMI) myocardial infarction involving right coronary artery (2) Coronary artery disease: Status: Acute Code(s): I25.10 - Atherosclerotic heart disease of [place] coronary artery without angina pectoris Qualifiers: Coronary Disease-Associated Artery/Lesion type: [place] artery [place] vs. transplanted heart: [place] heart Associated angina: with unstable angina Qualified Code(s): I25.110 - Atherosclerotic heart disease of [place] coronary artery with unstable angina pectoris (3) Transient complete heart block: Status: Acute Code(s): I44.2 - Atrioventricular block, complete Plan Patient is a 73-year-old gentleman who presented with chest pain diagnosed with acute ST segment elevation [place] underwent emergency left heart catheterization found to have a complete occlusion of the proximal RCA underwent aspiration thrombectomy, balloon angioplasty RIRI placement. Subsequently transferred to the intensive care unit 1. Acute STEMI -Patient taken emergently to the [facility] and was found to have a complete occlusion of proximal RCA and underwent aspiration thrombectomy, balloon angioplasty and RIRI. Patient has since been managed with guideline directed medical therapy. Echo ordered pending ? 04/12/2023; echo performed awaiting results ? 04/13/2023;2D echo demonstrated EF of 55% with no regional wall motion abnormalities 2. Transient heart block ? Secondary to patient proximal RCA occlusion patient has since been monitored continuously on telemetry ? 04/12/2023 did continue with continuous telemetry monitoring patient out of beta-blockers in view of his transient heart block per recommendations from cardiac. Patient was also noted started on statin therapy due to previous history of intolerance to statins 3. Diabetes mellitus type II -patient's oral hypoglycemics held. Placed on long acting insulin, Accu-Cheks a.c. and at bedtime and covered with sliding scale insulin 4. Hypothyroidism - Patient is on levothyroxine home dose continued 5. Obstructive sleep apnea ? Patient is on CPAP at night 6. Chronic kidney disease stage IIIa Patient baseline creatinine has been ranging between 1.3-1.76. Creatinine on admission was 1.53. Will continue with daily monitoring 7. DVT prophylaxis - On enoxaparin Time spent in the patient's overall evaluation,decision-making process, review of diagnostic data, adjustment of management, discussion with other providers, nursing nursing and ancillary staff involved in patient's care documentation, 35 Minutes Medications at Discharge Home Medications levothyroxine 75 mcg tablet 100 mcg PO DAILY THYROID 01/08/13 metformin 500 mg tablet,extended release 24 hr 1,000 mg PO BID DIABETES 01/08/13 nlytegfq-xfr-nxnjy acid 0.4 mg-lycopene 300 mcg-lutein 250 mcg tablet (Centrum Silver) 1 ea PO DAILY SUPPLEMENT' 01/08/13 omega 3-dha 60 mg-epa 90 mg-fish oil 500 mg capsule, delayed release (Fish Oil) 1,000 mg PO BID supplement 05/24/15 potassium citrate 10 mEq (1,080 mg) tablet,extended release (Urocit-K 10) 1,080 mg PO DAILY SUPPLEMENT 05/24/15 fenofibrate nanocrystallized 145 mg tablet 145 mg PO DAILY CHOLESTEROL 10/19/17 ezetimibe 10 mg tablet 10 mg PO DAILY 12/06/22 glipizide 5 mg tablet 2.5 mg PO DINNER diabetes 12/06/22 vit C 250 mg-vit E 90 mg-zinc 40 mg-copper 1 iv-nbrjxv-qdgckd capsule (PreserVision AREDS-2) 1 tab PO BID eye health 12/06/22 cholecalciferol (vitamin D3) 50 mcg (2,000 unit) capsule (D3-2000) 50 mcg PO DAILY 02/11/23 losartan 100 mg tablet 100 mg PO DAILY 04/10/23 aspirin 81 mg tablet,delayed release 81 mg PO DAILYCM 90 days #90 tabs 04/13/23 clopidogrel 75 mg tablet 75 mg PO DAILY 90 days #90 tabs 04/13/23 Hospital Course Procedures Cardiac catheterization Summary of Care Provided Minutes Spent on Discharge: 35 Physical Exam Narrative GENERAL: cooperative HEENT: Atraumatic; normocephalic EYES; Anicteric, Normal Conjunctiva NECK; supple, normal thyroid, RESPIRATORY: Diminished to auscultation CARDIOVASCULAR: Regular S1 S2, GI: soft, normoactive bowel sounds, : No Renal angle tenderness; EXTREMITIES: No edema, no clubbing, MUSCULOSKELETAL: no muscle wasting NEURO: Awake; no lateralizing signs. SKIN: No Rash PSYCH; Flat affect Weight / BMI Weight Weight: 80.2 kg Body Mass Index (BMI) 25.7 ABG / Lab / Microbiology Data 04/12/23 05:40 04/12/23 05:40 Laboratory: Laboratory Results - last 24 hr 04/12/23 11:25: POC Glucose 130 H 04/12/23 16:43: POC Glucose 106 04/12/23 20:59: POC Glucose 118 H 04/13/23 05:38: POC Glucose 110 H Radiography Diagnostic Testing: Radiology Impression Echocardiogram 04/12/23 08:00 Interpretation Summary Normal LV size. Left ventricular systolic function is normal. The estimated ejection fraction is 55 %. Bubble contrast study negative for right to left interatrial shunt. Mild concentric left ventricular hypertrophy. Stage 1 diastolic dysfunction. Ordering Physician: Bo Albert Referring Physician: Mita Zaidi Performed By: Mita Rocha, RDCS, RVT D/C Instructions Discharge Diet: Low fat / Low cholesterol and 1800 Calorie Control Diet Discharge Activity: Return to Normal Activity Call your doctor if you observe: Fever of 101 or Higher, Shortness of breath, Fainting spells and Chest pain Meaningful Use Info Meaningful Use Diagnoses (Choose all that apply): AMI AMI/Post PCI/Angioplasty Aspirin given w/in 24hrs of arrival?: Yes ASA at discharge?: Yes Antiplatelet Therapy at Discharge:: Yes Statins at discharge?: No Reason statins not ordered:: Allergy Angel/ARB at discharge?: Yes Beta Gian at discharge?: No Reason Beta Gian not ordered:: Allergy Done w/ Acute GA measure.: Yes Documented LVEF (%): 55 Discharge Plan Admission Admit Date/Time: 04/10/23 14:20 Attending Provider: Romie Tuttle Primary Care Provider: Mita Zaidi Consulting Providers: Tereza Tolentino; Bo Albert Discharge Orders/Prescriptions Prescriptions: New clopidogrel 75 mg Tablet 75 mg PO DAILY 90 Days Qty: 90 0RF aspirin 81 mg Tablet,Delayed Release (Dr/Ec) 81 mg PO DAILYCM 90 Days Qty: 90 0RF Continued levothyroxine 75 MCG tablet 100 mcg PO DAILY metformin 500 MG tablet 1,000 mg PO BID Centrum Silver 1 EACH tablet 1 ea PO DAILY potassium citrate [Urocit-K 10] 10 MEQ tablet extended release 1,080 mg PO DAILY Fish Oil 500 MG capsule,delayed release(DR/EC) 1,000 mg PO BID fenofibrate nanocrystallized 145 tablet 145 mg PO DAILY Patient Comments: glipizide 5 mg tablet 2.5 mg PO DINNER ezetimibe 10 mg tablet 10 mg PO DAILY PreserVision AREDS-2 250-90-40-1 mg capsule 1 tab PO BID cholecalciferol (vitamin D3) [D3-2000] 50 mcg (2,000 unit) capsule 50 mcg PO DAILY losartan 100 mg tablet 100 mg PO DAILY Referrals / Follow Up: Bo Albert MD [Med Staff - Active Staff] - Within 2 Weeks Mita Zaidi NP-C [Primary Care Provider] - Within 1 Week Disposition Disposition (needs filled in before D/C Order can be placed): Home, Self Care Charges/Coding Visit Charges Inpatient E&M: 25835 Disch Hosp >30min 04/13/23 1048 <Electronically signed by Romie Tuttle MD> Cosigner Signature (if applicable): CC: SUPERVISOR TITLE-C Mita Zaidi; Dr. Romie Tuttle MD~ Signed [facility] Work Phone: Discharge summary Author Gil Mcclelland [facility] May 19, 2023 9:49am Note Date/Time May 19, 2023 9:42am [facility] Medical Records Department [address] [place] [address] Instructions for Home/Discharge Instructions 05/19/23 0942 MR#: [id number] Acct: [id number] Name: SINDY GREENFIELD Rep #:[id number] : 1950 73 From: Gil Mcclelland DO PCP: JOCELINE Morejon Status:ADM IN Discharge Instructions Diet Discharge Diet: 1800 Calorie Control Diet Activity Discharge Activity: Return to Normal Activity Weight Bearing Status: Full weight bearing Follow Up Care Test Results: Test results from this visit will be discussed in further detail at your follow- up appointment, if applicable. Discharge Plan Admission Admit Date/Time: 05/18/23 12:48 Primary Reason for Your Visit: Supraventricular tachycardia Attending Provider: Gil Mcclelland Primary Care Provider: Mita Zaidi Consulting Providers: Markell Humphrey Discharge Orders/Prescriptions Prescriptions: New metoprolol tartrate 25 mg Tablet 25 mg PO BID Qty: 60 0RF pravastatin 20 mg Tablet 20 mg PO QHS Qty: 30 0RF Continued Centrum Silver 1 EACH tablet 1 ea PO DAILY potassium citrate [Urocit-K 10] 10 MEQ tablet extended release 1,080 mg PO DAILY fenofibrate nanocrystallized 145 tablet 145 mg PO DAILY Patient Comments: ezetimibe 10 mg tablet 10 mg PO DAILY PreserVision AREDS-2 250-90-40-1 mg capsule 1 tab PO BID glipizide 5 mg tablet 2.5 mg PO DINNER cholecalciferol (vitamin D3) [D3-2000] 50 mcg (2,000 unit) capsule 50 mcg PO DAILY losartan 100 mg tablet 100 mg PO DAILY aspirin 81 mg Tablet,Delayed Release (Dr/Ec) 81 mg PO DAILYCM 90 Days Qty: 90 0RF levothyroxine 100 mcg tablet 100 mcg PO DAILY Rx Instructions: take in am metformin 1,000 mg tablet 1,000 mg PO BID THERAWORX foam See Rx Instructions .ROUTE .COMPLEX Rx Instructions: APPLY TO MUSCLE CRAMPS NEEDED; clopidogrel 75 mg tablet 75 mg PO DAILY Qty: 90 3RF Discontinued Fish Oil 500 MG capsule,delayed release(DR/EC) 1,000 mg PO BID Referrals / Follow Up: Markell Humphrey MD [Med Staff - Active Staff] - See Referral Note (In 2 weeks, call office for appointment) Mita Zaidi NP-C [Primary Care Provider] - Disposition Disposition (needs filled in before D/C Order can be placed): Home, Self Care 05/19/23 0949<Electronically signed by Gil Mcclelland DO>Gil Mcclelland DO CC: JOCELINE Zaidi; Dr. Markell Humphrey MD ~ Signed [facility] Work Phone: Discharge summary Author [facility] May 19, 2023 9:53am Note Date/Time May 19, 2023 9:53am [facility] Medical Records Department [address] [place] [address] Discharge Summary 05/19/23 0949 MR#: [id number] Acct: [id number] Name: SINDY GREENFIELD Rep #:[id number] : 1950 73 From: Gil Mcclelland DO PCP: JOCELINE Morejon Status:ADM IN [facility] Providers Date of Admission: 05/18/23 Date of Discharge: 05/19/23 Primary Care Physician: JOCELINE Morejon Consultations 05/18/23 13:10 Consult: Cardiology Routine Consulting Provider: Markell Humphrey Reason for Consult: SVT EMERGENT Consult: No MD Notified: Yes Date Notified: 05/18/23 Time Notified: 12:52 Method of Notification: Verbal Reason For Visit: SUPRAVENTRICULAR TACHICARDIA, CORONARY ARTERY DISE Diagnosis Discharge Diagnosis (1) Supraventricular tachycardia: Status: Acute Code(s): I47.10 - Supraventricular tachycardia, unspecified (2) Atherosclerotic cardiovascular disease: Status: Acute Code(s): I25.10 - Atherosclerotic heart disease of [place] coronary artery without angina pectoris (3) Transient complete heart block: Status: Acute Code(s): I44.2 - Atrioventricular block, complete (4) Hyperlipemia: Status: Chronic Code(s): E78.5 - Hyperlipidemia, unspecified Qualifiers: Hyperlipidemia type: mixed hyperlipidemia Qualified Code(s): E78.2 - Mixed hyperlipidemia Plan 1. Supraventricular tachycardia-patient will be admitted to PCU telemetry, he was given 25 mg of metoprolol in the emergency room orally, he will be maintained on metoprolol tartrate 50 mg twice daily and he will be observed for any further arrhythmias or heart block. He will be seen in consultation by cardiology. #2 coronary artery disease-patient recently had stent placement in April 2023 after having a STEMI, I talked to him about taking a low-dose statin since he isnot on any statin, he states he would try a low-dose of Pravachol, I placed him on 20 mg daily. He will remain on aspirin and Plavix as well as Zetia. #3 hyperlipidemia-again patient has agreed to try low-dose of a statin in addition to Zetia, I told him that taking an dzwl-jfz-imtxyhy fish oil supplement would not be beneficial #4 type 2 diabetes-patient is on low-dose glipizide, I do not feel the patient needs fingerstick blood sugars while he was hospitalized #5 essential hypertension-patient is to remain on his home medications, blood pressure will be monitored and medicines will be adjusted if necessary #6 hypothyroidism-patient is on Synthroid Total clinical time spent by myself addressing the patient's medical issues, reviewing all of his data, and collaborating with patient's care team: 55 minutes Medications at Discharge Home Medications zpshspae-wvg-fonqx acid 0.4 mg-lycopene 300 mcg-lutein 250 mcg tablet (Centrum Silver) 1 ea PO DAILY SUPPLEMENT' 01/08/13 potassium citrate 10 mEq (1,080 mg) tablet,extended release (Urocit-K 10) 1,080 mg PO DAILY SUPPLEMENT 05/24/15 fenofibrate nanocrystallized 145 mg tablet 145 mg PO DAILY CHOLESTEROL 10/19/17 ezetimibe 10 mg tablet 10 mg PO DAILY 12/06/22 vit C 250 mg-vit E 90 mg-zinc 40 mg-copper 1 wb-shdlum-zozcul capsule (PreserVision AREDS-2) 1 tab PO BID eye health 12/06/22 cholecalciferol (vitamin D3) 50 mcg (2,000 unit) capsule (D3-2000) 50 mcg PO DAILY 02/11/23 losartan 100 mg tablet 100 mg PO DAILY 04/10/23 aspirin 81 mg tablet,delayed release 81 mg PO DAILYCM 90 days #90 tabs 04/13/23 clopidogrel 75 mg tablet 75 mg PO DAILY #90 tabs 04/13/23 glipizide 5 mg tablet 2.5 mg PO DINNER diabetes 04/26/23 THERAWORX See Rx Instructions .Route .COMPLEX 05/18/23 levothyroxine 100 mcg tablet 100 mcg PO DAILY thyroid 05/18/23 metformin 1,000 mg tablet 1,000 mg PO BID DIABETES 05/18/23 metoprolol tartrate 25 mg tablet 25 mg PO BID #60 tabs 05/19/23 pravastatin 20 mg tablet 20 mg PO QHS #30 tabs 05/19/23 Hospital Course Operations None Procedures None Summary of Care Provided Minutes Spent on Discharge: 30 Hospital Course: This 73-year-old white male was seen in the emergency room at [facility] with a chief complaint of lightheadedness and rapid heartbeat, EKG performed in the ER showed the patient to be in SVT with a rate of [id number], patient was given adenosine which returned the patient's normal sinus rhythm but shortly afterwards he went into another episode of SVT and was given an additional bolus of adenosine and then he converted to normal sinus rhythm after that. Patient was admitted to PCU, he was seen in consultation by cardiology and he was placed on a beta-gian (metoprolol) orally. Patient hadno further episodes of SVT during his hospitalization, he was monitored on telemetry. Patient was reevaluated on 05/19/2023 by cardiology and it was felt that he was stable for discharge home. Patient was seen and examined on 05/19/2023: On examination he appeared in good health and spirits. Vital signs as documented. Skin warm and dry and without overt rashes. Neck without JVD, neck was supple, trachea midline, thyroid was normal. Lungs clear bilaterally, normal air movement was noted. Heart exam notable for regular rhythm, normal sounds and absence of murmurs, rubs or gallops. Abdomen unremarkable and without evidence of organomegaly, masses, or abdominal aortic enlargement. Bowel sounds are present, abdomen is not distended. Extremities nonedematous, no cyanosis was noted, no clubbing was noted. Neuro: Cranial nerves II through XII are grossly intact, no focal motor deficits were noted, sensation to light touch and pinprick intact, motor exam 5/5 throughout. Psych: Patient is alert and oriented x3, he does not appear anxious or depressed, he does not appear agitated. Patient improved faster than expected and was stable for discharge home on 05/19/2023. Weight / BMI Weight Weight: 81.6 kg Body Mass Index (BMI) 26.5 ABG / Lab / Microbiology Data 05/18/23 10:08 05/19/23 06:25 Laboratory: Laboratory Results - last 24 hr 05/18/23 10:08: WBC 6.1, RBC 4.27 L, Hgb 12.4 L, Hct 37.9 L, MCV 88.8, MCH 29.0,MCHC 32.7, RDW Std Deviation 43.6, RDW Coeff of [place] 13.5, Plt Count 307, MPV 10.6, Immature Gran % (Auto) 0.200, Neut % (Auto) 59.8, Lymph % (Auto) 23.9, Bea[place]gard % (Auto) 8.8, Eos % (Auto) 5.7 H, Baso % (Auto) 1.6 H, Absolute Neuts (auto) 3.7, Absolute Lymphs (auto) 1.46, Nucleated RBC % 0, PT 13.8, INR 1.1, APTT 27.9, Sodium 140, Potassium 3.9, Chloride 109 H, Carbon Dioxide 23.0, Anion Gap 8, BUN 29 H, Creatinine 1.90 H, Estim Creat Clear Calc 34.11, Est GFR (MDRD) Af Amer 45 L, Est GFR (MDRD) Non-Af 37 L, BUN/Creatinine Ratio 15.3, Glucose 244 H,Calcium 9.6, Magnesium 2.2, Troponin I High Sens 41, TSH 3.60 05/18/23 12:37: Troponin I High Sens 839 H* 05/19/23 06:25: Sodium 143, Potassium 4.1, Chloride 109 H, Carbon Dioxide 24.0, Anion Gap 10, BUN 31 H, Creatinine 1.51 H, Estim Creat Clear Calc 42.92, Est GFR(MDRD) Af Amer 58 L, Est GFR (MDRD) Non-Af 48 L, BUN/Creatinine Ratio 20.5 H, Glucose 118 H, Calcium 9.1 Radiography Diagnostic Testing: Radiology Impression Chest X-Ray 05/18/23 10:16 IMPRESSION: No acute abnormality is present. Electronically Signed: Bharath Steen MD at 11:07 EST , D/C Instructions Discharge Diet: 1800 Calorie Control Diet Weight Bearing Status: Full weight bearing Meaningful Use Info Meaningful Use Diagnoses (Choose all that apply): None applicable Discharge Plan Admission Admit Date/Time: 05/18/23 12:48 Primary Reason for Your Visit: Supraventricular tachycardia Attending Provider: Gil Mcclelland Primary Care Provider: Mita Zaidi Consulting Providers: Markell Humphrey Discharge Orders/Prescriptions Prescriptions: New metoprolol tartrate 25 mg Tablet 25 mg PO BID Qty: 60 0RF pravastatin 20 mg Tablet 20 mg PO QHS Qty: 30 0RF Continued Centrum Silver 1 EACH tablet 1 ea PO DAILY potassium citrate [Urocit-K 10] 10 MEQ tablet extended release 1,080 mg PO DAILY fenofibrate nanocrystallized 145 tablet 145 mg PO DAILY Patient Comments: ezetimibe 10 mg tablet 10 mg PO DAILY PreserVision AREDS-2 250-90-40-1 mg capsule 1 tab PO BID glipizide 5 mg tablet 2.5 mg PO DINNER cholecalciferol (vitamin D3) [D3-2000] 50 mcg (2,000 unit) capsule 50 mcg PO DAILY losartan 100 mg tablet 100 mg PO DAILY aspirin 81 mg Tablet,Delayed Release (Dr/Ec) 81 mg PO DAILYCM 90 Days Qty: 90 0RF levothyroxine 100 mcg tablet 100 mcg PO DAILY Rx Instructions: take in am metformin 1,000 mg tablet 1,000 mg PO BID THERAWORX foam See Rx Instructions .ROUTE .COMPLEX Rx Instructions: APPLY TO MUSCLE CRAMPS NEEDED; clopidogrel 75 mg tablet 75 mg PO DAILY Qty: 90 3RF Discontinued Fish Oil 500 MG capsule,delayed release(DR/EC) 1,000 mg PO BID Referrals / Follow Up: Markell Humphrey MD [Med Staff - Active Staff] - See Referral Note (In 2 weeks, call office for appointment) Mita Zaidi NP-C [Primary Care Provider] - Disposition Disposition (needs filled in before D/C Order can be placed): Home, Self Care Charges/Coding Visit Charges Inpatient E&M: 83904 Subs Hosp L1 05/19/23 0953 <Electronically signed by Gil Mcclelland DO> Cosigner Signature (if applicable): CC: SUPERVISOR TITLE-Orlando Zaidi; Dr. Gil Mcclelland DO~ Signed [facility] Work Phone: evaluation noteNo assessment information available [facility] Work Phone: evaluzqtak note* Diagnosis Diabetes mellitus type II (HCC) Hyperlipidemia, unspecified hyperlipidemia type Hypertriglyceridemia Pure hyperglyceridemia [facility] Diagnosis Onset Date Resolution Status Acute cholecystitis acute Nausea and vomiting acute Diabetes 1.5, managed as type [address] [facility] Work Phone: evaluation note* Diagnosis Onset Date Resolution Status Diabetes 1.5, managed as type 2 chronic Hypertension chronic Acute cholecystitis resolved Nausea and vomiting resolved S/P laparoscopic cholecystectomy acute [facility] Work Phone: evaluation note* Diagnosis Onset Date Resolution Status Diabetes 1.5, managed as type 2 chronic Hypertension chronic Acute cholecystitis resolved Nausea and vomiting resolved S/P laparoscopic cholecystectomy acute Encounter for screening for malignant neoplasm of colon acute [facility] Work Phone: Evaluation note* Diagnosis Onset Date Resolution Status S/P laparoscopic cholecystectomy acute Encounter for screening for malignant neoplasm of colo n acute [facility] Work Phone: Evaluation note* Diagnosis Onset Date Resolution Status S/P laparoscopic cholecystectomy acute Encounter for screening for malignant neoplasm of colo n acute Coronary artery disease acut e Dyslipidemia acute ST elevation (STEMI) myocard ial infarction involving right coronary artery acute Transient complete heart block acute Diabetes 1.5, managed as type 2 chronic Hypertension chronic Hypothyroid chronic [facility] Work Phone: Evaluation note* Diagnosis Onset Date Resolution Status S/P laparoscopic cholecystectomy acute Encounter for screening for malignant neoplasm of colon acute Coronary artery disease acut e Dyslipidemia acute Transient complete heart block acute Diabetes 1.5, managed as type 2 chronic Hypertension chronic Hypothyroid chronic ST elevation (STEMI) myocard ial infarction involving right coronary artery resolved [facility] Work Phone: Evaluation note* Diagnosis Onset Date Resolution Status Encounter for screening for malignant neoplasm of colon acute Coronary artery disease acut e Dyslipidemia acute Transient complete heart block acute Diabetes 1.5, managed as type 2 chronic Hypertension chronic Hypothyroid chronic ST elevation (STEMI) myocard ial infarction involving right coronary artery resolved Dyslipidemia acute Stented coronary artery April, acu te Transient complete heart block acute Hypertension [facility] Work Phone: Evaluation note* Diagnosis Onset Date Resolution Status Encounter for screening for malignant neoplasm of colon acute Coronary artery disease acut e Dyslipidemia acute Transient complete heart block acute Diabetes 1.5, managed as type 2 chronic Hypertension chronic Hypothyroid chronic ST elevation (STEMI) myocard ial infarction involving right coronary artery resolved Dyslipidemia acute Stented coronary artery April, acu te Transient complete heart block acute Hypertension chronic Coronary artery disease acut e Supraventricular tachycardia acute [facility] Work Phone: Evaluation note* Diagnosis Onset Date Resolution Status Encounter for screening for malignant neoplasm of colon acute Coronary artery disease acut e Dyslipidemia acute Transient complete heart block acute Diabetes 1.5, managed as type 2 chronic Hypertension chronic Hypothyroid chronic ST elevation (STEMI) myocard ial infarction involving right coronary artery resolved Dyslipidemia acute Stented coronary artery April, acu te Transient complete heart block acute Hypertension chronic Atherosclerotic cardiovascular disease acute Coronary artery disease acut e Supraventricular tachycardia acute Transient complete heart block acute Hyperlipemia chronic Hypertension [facility] Work Phone: Evaluation note* Diagnosis Onset Date Resolution Status Encounter for screening for malignant neoplasm of colon acute Coronary artery disease acut e Dyslipidemia acute Diabetes 1.5, managed as type 2 chronic Hypertension chronic Hypothyroid chronic ST elevation (STEMI) myocard ial infarction involving right coronary artery resolved Dyslipidemia acute Stented coronary artery April, acu te Hypertension chronic Atherosclerotic cardiovascular disease acute Coronary artery disease acut e Hyperlipemia chronic Hypertension chronic Atherosclerotic cardiovascular disease acute Dyslipidemia acute SVT (supraventricular tachycardia) acute Hypertension chronic [facility] Work Phone: Evaluation note* Diagnosis Onset Date Resolution Status Coronary artery disease acut e Dyslipidemia acute Diabetes 1.5, managed as type 2 chronic Hypertension chronic Hypothyroid chronic ST elevation (STEMI) myocard ial infarction involving right coronary artery resolved Dyslipidemia acute Stented coronary artery April, acu te Hypertension chronic Atherosclerotic cardiovascular disease acute Coronary artery disease acut e Hyperlipemia chronic Hypertension chronic Atherosclerotic cardiovascular disease acute Dyslipidemia acute SVT (supraventricular tachycardia) acute Hypertension chronic [facility] Work Phone: History and physical note Author Markell Mitchell [facility] December 06, 2022 8:40pm Note Date/Time December 06, 2022 8:40pm [facility] Medical Records Department [address] [place] [address] History & Physical Exam 12/06/222030 MR#: [id number] Acct: [id number] Name: SINDY GREENFIELD Rep #:[id number] : 1950 72 From: Markell Hernández PCP: Love Crowley, DO Status:ADM I N Location: [id number] HPI - General General Date of Service: 12/06/22 Chief Complaint: Acute onset right upper quadrant abdominal pain HPI Narrative SINDY GREENFIELD, is a 72 M who presents to [facility] after experiencing acute onset right upper quadrant abdominal pain at approximately 1400 this afternoon. Patient states that he was out to dinner at [facility] and ate a salad with dressing and part of a steak with a potato at approximately 1215. Thereafter he experienced the abdominal pain described above as well as some associated nausea. In route to the hospital he did have some vomiting. Hedenies any associated fevers or chills. Mr. Greenfield reports that he presented here to [facility] ER 5 days ago with the same complaints. At that time he was evaluated for chest pain, but was informed that he had completely normal work-up. Patient's ER work-up today is notable for CMP without abnormalities of his LFTs. CBC shows normal white blood cell count but slightly elevated immature granulocytes. CT imaging of the abdomen pelvis was obtained which shows some haziness around the right renal pelvis as well as a over distended gallbladder. Therefore right upper quadrant ultrasound was obtained reflexively and confirmed the presence of a thickened gallbladder wall at 3.7 mm. Ultrasound also confirmed the presence of a 1.1 cm gallstone in the neck ofthe gallbladder. The admin prog coord reported a positive sonographic Rushing sign. In the end radiology concluded that all of these were nonspecific and recommended a HIDA scan if cholecystitis was to be more fully evaluated. Mr. Greenfield confirms a history of hypertension and confesses that he is not checked his blood pressures regularly at home. His blood pressure in the ER is ranged as high as 210/150s he denies any headaches or symptoms from this high blood pressure. He additionally confirms a history of prostate cancer status post prostatectomy (this represents his only abdominal surgery) and diabetes mellitus with a HbA1c less than 6.5. [facility] Home Medications levothyroxine 75 mcg tablet 100 mcg PO DAILY THYROID 01/08/13 [History Last Taken 11/30/18 04:45] metformin 500 mg tablet,extended release 24 hr 1,000 mg PO BID DIABETES 01/08/13[History Last Taken Unknown] ulvmqajy-kzn-mfhcw acid 0.4 mg-lycopene 300 mcg-lutein 250 mcg tablet (Centrum Silver) 1 ea PO DAILY SUPPLEMENT' 01/08/13 [History Last Taken Unknown] vit A 300 mcg-C 200 mg-E 27 mg-lutein 2 mg and minerals tablet (Ocuvite with Lutein) 1 ea PO DAILY EYE VITAMIN 03/08/14 [History Last Taken Unknown] omega 3-dha 60 mg-epa 90 mg-fish oil 500 mg capsule, delayed release (Fish Oil) 1,000 mg PO BID 05/24/15 [History Last Taken Unknown] potassium citrate 10 mEq (1,080 mg) tablet,extended release (Urocit-K 10) 10 meqPO DAILY SUPPLEMENT 05/24/15 [History Last Taken 06/03/15 04:30] fenofibrate nanocrystallized 145 mg tablet 145 mg PO DAILY CHOLESTEROL 10/19/17 [History Last Taken Unknown] ezetimibe 10 mg tablet 10 mg PO DAILY 12/06/22 [History Last Taken Unknown] glipizide 5 mg tablet 2.5 mg PO QHS 12/06/22 [History Last Taken Unknown] losartan 25 mg tablet 25 mg PO DAILY 12/06/22 [History Last Taken Unknown] Allergy/AdvReac Type Severity Reaction Status Date / Time Fizimsw-TQD-NvR Reductase AdvReac Abd Verified 12/06/22 15:44 Inhibitor cramps/diarrhea [Ngsiata-Yrp-Cxc Reductase Inhibitor] Social History Smoking Status: Never smoker ROS Constitutional Constitutional: Denies chills, fatigue or fever(s) Gastrointestinal Gastrointestinal: Reports abdominal pain, nausea and vomiting Vital Signs Vital Signs Vital Signs: 12/06/22 15:44 12/06/22 19:20 12/06/22 19:55 Temperature 96.8 F L Temperature Source Temporal Pulse Rate 71 65 67 Respiratory Rate 18 17 18 Blood Pressure 209/155 H 172/72 H 163/69 H Blood Pressure Mean 173 105 100 Pulse Ox 98 94 94 Oxygen Delivery Method Room Air Room Air Room Air Weight Weight: 184 lb 4.8 oz Body Mass Index (BMI) 27.2 Physical Exam Const alert, oriented x3 and no apparent distress General Appearance: cooperative Resp normal respiratory effort GI GI Narrative: Hirsute abdominal wall, nondistended, lower abdomen with well-healed laparoscopyport site scars, soft with focal tenderness in the right upper quadrant. Positive Rushing sign with palpation of a very specific area in his right upper quadrant. Results Lab / Micro Data 12/06/22 16:00 12/06/22 16:00 Labs: Laboratory Results - last 24 hr 12/06/22 16:00: WBC 9.4, RBC 4.29 L, Hgb 12.4 L, Hct 38.1 L, MCV 88.8, MCH 28.9,MCHC 32.5, RDW Std Deviation 43.3, RDW Coeff of Tico 13.3, Plt Count 353, MPV 10.0, Immature Gran % (Auto) 1.100 H, Neut % (Auto) 65.8, Lymph % (Auto) 21.0, [place] % (Auto) 7.0, Eos % (Auto) 4.1, Baso % (Auto) 1.0, Absolute Neuts (auto) 6.2, Absolute Lymphs (auto) 1.98, Nucleated RBC % 0, Sodium 141, Potassium 4.1, Chloride 107, Carbon Dioxide 27.0, Anion Gap 7, BUN 31 H, Creatinine 1.34 H, Estim Creat Clear Calc 49.10, Est GFR (MDRD) Af Amer 67, Est GFR (MDRD) Non-Af 55 L, BUN/Creatinine Ratio 23.1 H, Glucose 124 H, Calcium 9.9, Total Bilirubin 0.30, AST 16, ALT 33, Alkaline Phosphatase 59, Total Protein 8.2, Albumin 4.2, Globulin 4.0, Albumin/Globulin Ratio 1.0, Lipase 152 H 12/06/22 19:53: Urine Color Yellow, Urine Clarity Clear, Urine pH 8.0, Ur Specific [place] 1.015, Urine Protein 100 H, Urine Glucose (UA) Normal, Urine Ketones Negative, Urine Occult Blood 10 H, Urine Nitrite Negative, Urine Bilirubin Negative, Urine Urobilinogen Normal, Ur Leukocyte Esterase 25 H, UrineRBC 0-5 SEEN, Urine WBC 0-5 SEEN, Ur Squamous Epith Cells 0-5 SEEN, Urine Bacteria 0 SEEN, Urine Mucus 0 SEEN Radiology Impression Abdomen/Pelvis CT 12/06/22 15:55 IMPRESSION: Possible infectious process involving the right renal collecting system, clinical correlation recommended. Over distended gallbladder with tiny gallstones. If indicated, this can be further assessed with right upper quadrant ultrasound. No acute appendicitis or bowel obstruction. Electronically Signed: Mari Pate MD at 17:04 EDT , Gallbladder Ultrasound 12/06/22 17:06 IMPRESSION: Slightly over distended gallbladder with sludge and gallstone is described. Positive Rushing sign, nonspecific in the absence of additional signs of acute cholecystitis. However, due to increased distention, if clinical concern for acute cholecystitis remains, recommend dedicated HIDA scan. Remainder of the right upper quadrant ultrasound. Electronically Signed: Mari Pate MD at 19:02 EDT , Assessment & Plan Assessment/Plan (1) Acute cholecystitis: PLAN: This is a 72-year-old male who presents with complaints of recurrent rightupper quadrant discomfort with associated nausea and vomiting. ER work-up for his right upper quadrant discomfort included both CT and ultrasound imaging. Both of these identify some thickening of his gallbladder as well as gallbladderdistention. The former showed in better detail the presence of a 1.1 cm gallbladder neck stone. Notably, patient has normal white blood cell count and normal LFTs with CMP. I believe he represents a case of acute on chronic cholecystitis given his normal labs, but also the presence of a positive Rushing sign. Therefore, based on this diagnosis and patient's prior presentation, I recommend proceeding with a laparoscopic cholecystectomy and intraoperative cholangiogram tomorrow. Procedure was described in detail as well as post procedure activity restrictions. Patient expresses his interest in proceeding as described. In the meantime we will have the hospitalist service evaluate given his accelerated hypertension displayed during his earlier presentation here and hopefully he will be further optimized prior to surgery. Neuro: As needed Dilaudid (patient states he wishes to not be placed on oxycodone postoperatively) Pulm/CV: Incentive spirometer, hospitalist consult to optimize hypertension preop FEN/GI: Clear liquid diet then n.p.o. after midnight, CMP in the a.m., plan for laparoscopic cholecystectomy tomorrow a.m. : Patient with UA pending for haziness of right renal pelvis Heme/ID: CBC in a.m., empiric coverage with Zosyn Endo: Xgsqp-tk-uhsm glucose testing, overall excellent control of blood sugar despite diabetes diagnosis per patient and recall of A1c Proph: SCDs Dispo: Admit to inpatient Charges/Coding Visit Charges Inpatient E&M: 74040 Init Hosp L2 12/06/222039 <Electronically signed by Markell Mitchell MD> Cosigner Signature (if applicable): CC: Dr. Markell Mitchell MD; Love Crowley DO~ Signed [facility] Work Phone: Hospital Discharge instructions Additional Instructions INCISION CARE: You have a small bandage on your neck over the site from which the surgical drain was removed and over the R groin puncture site. You may remove both bandages tomorrow. As long as there is no residual drainage, you may leave these sites open to air. If you do notice some continued drainage, you may re-cover with a Band-Aid. Your neck incision site is covered with skin glue which will continue to protect it. The skin glue will peel/flake off on its own over the next few weeks. Please do not pick at it. You may shower tomorrow. It is okay for soap and water to rinse over the incision site, pat to dry. Do not submerge the incision site in water such as to take a bath or go swimming etc. for 3 weeks. MEDICATION INSTRUCTIONS Continue to take Aspirin 81mg daily and Plavix 75mg daily. You have been prescribed oxycodone 5mg tablet to be taken by mouth every 8 hours as needed for pain. You may take this in addition to Tylenol as needed. You should not drive or operate machinery while taking this medication. Do not take this medication in combination with any other prescription pain medications. Call the office at [phone] with any questions about your medications ACTIVITY INSTRUCTIONS Do not lift greater than 20 pounds for 3 weeks. Otherwise, please continue with activity as tolerated. Do not drive until you can turn your head well enough to safely check your blind spots. FOLLOW-UP INSTRUCTIONS You are scheduled for follow-up in the office on 08/30/24. If you need to change this appointment or have any other questions/concerns, please call the office at [phone]. [facility] Work Phone: Reason for referral (narrative)No reason for referral information [facility] Work Phone: Summary Purpose Family History No Family History Records FoundNo Family History Records FoundNo Family History Records Found Advance Directives No Advanced Directives Records Found Advance Directive Response Recorded Date/ Time Advance Directives No July 28 2 016 1:13pm Living Will No November 30 9 12:48pm Power of House Calls Nurse Practitioner No November 30 2 019 12:48pm Advance Directive Response Recorded Date/ Time Advance Directives No July 28 2 016 12:13pm Living Will No November 30 9 11:48am Power of House Calls Nurse Practitioner No November 30 2 019 11:48am Advance Directive Response Recorded Date/ Time Advance Directives No July 28, 2 016 1:13pm Living Will No November 30 3 8:13pm Power of House Calls Nurse Practitioner No November 30, 2 023 8:13pm Advance Directive Response Recorded Date/ Time Advance Directives No July 28 2 016 1:13pm Living Will No December 06 023 4:35pm Power of House Calls Nurse Practitioner No December 06, 2022 4:35pm Advance Directive Response Recorded Date/ Time Name of Medical Power of House Calls Nurse Practitioner Doug hernández, December 06, 2022 9:32pm Advance Directives No July 28, 016 1:13pm Living Will Yes December 06 9:32pm Power of House Calls Nurse Practitioner Yes December 06, 2022 9:32pm Advance Directive Response Recorded Date/ Time Name of Medical Power of House Calls Nurse Practitioner Doug hernández, December 06, 2022 8:32pm Name of Medical Power of House Calls Nurse Practitioner February 11, 2023 2:47pm Advance Directives No July 28 016 12:13pm Living Will Yes February 11 2:47pm Power of House Calls Nurse Practitioner Yes February 11, 2023 2:47pm Advance Directive Response Recorded Date/ Time Name of Medical Power of House Calls Nurse Practitioner February 11, 2023 2:47pm Name of Medical Power of House Calls Nurse Practitioner DOUG GREENFIELD () AND SUSAN LOPEZ (DAUGHTER) April 10, 2023 9:48am Advance Directives No July 28, 016 12:13pm Living Will Yes April 10 9:48am Power of House Calls Nurse Practitioner Yes April 10 9:48am Advance Directive Response Recorded Date/ Time Name of Medical Power of House Calls Nurse Practitioner February 11, 2023 2:47pm Name of Medical Power of House Calls Nurse Practitioner DOUG GREENFIELD () AND SUSAN LOPEZ (DAUGHTER) April 10, 2023 9:48am Advance Directives on File Yes 2023 10:18am Advance Directives No July 28 016 12:13pm Living Will Yes April 23 10:18am Power of House Calls Nurse Practitioner Yes April 23, 2023 10:18am Advance Directive Response Recorded Date/ Time Name of Medical Power of House Calls Nurse Practitioner February 11, 2023 2:47pm Name of Medical Power of House Calls Nurse Practitioner DOUG GREENFIELD () AND SUSAN LOPEZ (DAUGHTER) April 10, 2023 9:48am Advance Directives on File Yes 2023 10:18am Name of Medical Power of House Calls Nurse Practitioner May 18, 2023 10:17am Advance Directives No July 28, 016 12:13pm Living Will Yes May 18 024 10:17am Power of House Calls Nurse Practitioner Yes May 18, 2023 10:17am Advance Directive Response Recorded Date/ Time Name of Medical Power of House Calls Nurse Practitioner February 11, 2023 2:47pm Name of Medical Power of House Calls Nurse Practitioner DOUG GREENFIELD () AND SUSAN LOPEZ (DAUGHTER) April 10, 2023 9:48am Advance Directives on File Yes 2023 10:18am Name of Medical Power of House Calls Nurse Practitioner Laura Greenfield, May 18, 2023 1:39pm Advance Directives No July 28, 016 12:13pm Living Will Yes May 18 1:39pm Power of House Calls Nurse Practitioner Yes May 18, 2023 1:39pm Advance Directive Response Recorded Date/ Time Name of Medical Power of House Calls Nurse Practitioner DOUG GREENFIELD () AND SUSAN LOPEZ (DAUGHTER) April 10, 2023 10:48am Advance Directives on File Yes 2023 11:18am Name of Medical Power of House Calls Nurse Practitioner Laura Greenfield, May 18, 2023 2:39pm Advance Directives No July 28, 016 1:13pm Living Will Yes May 18 2:39pm Power of House Calls Nurse Practitioner Yes May 18, 2023 2:39pm Advance Directive Response Recorded Date/ Time Living Will Yes August 12, 2023 10 :42am Do you have a Healthcare Power of House Calls Nurse Practitioner? Yes August 12, 2023 10:42am Advance Directives No August 12, 2023 10:42am Advance Directive Response Recorded Date/ Time Living Will Yes August 12, 2023 10 :42am Do you have a Healthcare Pow er of House Calls Nurse Practitioner? Yes August 12, 2023 10:42am Do you have a Healthcare Pow er of House Calls Nurse Practitioner? Yes August 15, 2024 3:20pm Name of Medical Power of House Calls Nurse Practitioner Doug & Loreto Lopez August 15, 2024 3:20pm Advance Directives No August 12, 2023 10:42am Advance Directive Response Recorded Date/ Time Do you have a Healthcare Pow er of House Calls Nurse Practitioner? Yes August 15, 2024 3:20pm Name of Medical Power of House Calls Nurse Practitioner Doug & Loreto y Lopez August 15, 2024 3:20pm Advance Directives No August 12, 2023 10:42am Chief Complaint and Reason for Visit Chief Complaint SELF PAY Chief Complaint NEED ORDER Chief Complaint NEED ORDER 2 DRS/ 2 ORDERS Chief Complaint 2 DRS/ 2 ORDERS Chief Complaint chest pain Chief Complaint chest pain ACUTE CHOLECYSTITIS Reason for Visit Acute cholecystitis Nausea and vomiting Diabetes 1.5, managed as type 2 Hypertension Chief Complaint chest pain ACUTE CHOLECYSTITIS ACUTE CHOLECYSTITIS ACUTE CHOLECYSTITIS ACUTE CHOLECYSTITIS ACUTE CHOLECYSTITIS ACUTE CHOLECYSTITIS Reason for Visit Acute cholecystitis Nausea and vomiting Diabetes 1.5, managed as type 2 Hypertension Chief Complaint chest pain ACUTE CHOLECYSTITIS ACUTE CHOLECYSTITIS ACUTE CHOLECYSTITIS ACUTE CHOLECYSTITIS ACUTE CHOLECYSTITIS ACUTE CHOLECYSTITIS GALLBLADDER 9-5 Reason for Visit Diabetes 1.5, manage d as type 2 Hypertension Acute cholecystitis Nausea and vomiting S/P laparoscopic cholecystectomy Chief Complaint chest pain ACUTE CHOLECYSTITIS ACUTE CHOLECYSTITIS ACUTE CHOLECYSTITIS ACUTE CHOLECYSTITIS ACUTE CHOLECYSTITIS ACUTE CHOLECYSTITIS GALLBLADDER 9-5 Amb Documentation Reason for Visit Diabetes 1.5, manage d as type 2 Hypertension Acute cholecystitis Nausea and vomiting S/P laparoscopic cholecystectomy Encounter for screening for malignant neoplasm of colon Chief Complaint GALLBLADDER 9-5 Amb Documentation DIZZINESS Reason for Visit S/P laparoscopic cho lecystectomy Encounter for screening for malignant neoplasm of colon Chief Complaint GALLBLADDER 9-5 Amb Documentation STEMI STEMI STEMI STEMI STEMI STEMI Amb Documentation STEMI Reason for Visit S/P laparoscopic cho lecystectomy Encounter for screening for malignant neoplasm of colon Coronary artery disease Dyslipidemia ST elevation (STEMI) myocardial infarction involving right coronary artery 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, managed as type 2 Hypertension Hypothyroid Chief Complaint GALLBLADDER 9-5 Amb Documentation STEMI STEMI STEMI STEMI STEMI STEMI Amb Documentation STEMI STEMI Reason for Visit S/P laparoscopic cho lecystectomy Encounter for screening for malignant neoplasm of colon Coronary artery disease Dyslipidemia ST elevation (STEMI) myocardial infarction involving right coronary artery 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, managed as type 2 Hypertension Hypothyroid Chief Complaint GALLBLADDER 9-5 Amb Documentation STEMI STEMI STEMI STEMI STEMI STEMI Amb Documentation STEMI STEMI Reason for Visit S/P laparoscopic cho lecystectomy Encounter for screening for malignant neoplasm of colon Coronary artery disease Dyslipidemia 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, managed as type [address] elevation (STEMI) myocardial infarction involving right coronary artery Chief Complaint Amb Documentation STEMI STEMI STEMI STEMI STEMI STEMI Amb Documentation STEMI STEMI PCI with stent PCI with stenting S/P [facility] 04/13 STEMI Reason for Visit Encounter for screen ing for malignant neoplasm of colon Coronary artery disease Dyslipidemia 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, managed as type [address] elevation (STEMI) myocardial infarction involving right coronary artery Dyslipidemia Stented coronary artery Transient complete heart block Hypertension Chief Complaint Amb Documentation STEMI STEMI STEMI STEMI STEMI STEMI Amb Documentation STEMI STEMI PCI with stent S/P [facility] 04/13 STEMI PCI with stenting Reason for Visit Encounter for screen ing for malignant neoplasm of colon Coronary artery disease Dyslipidemia 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, managed as type [address] elevation (STEMI) myocardial infarction involving right coronary artery Dyslipidemia Stented coronary artery Transient complete heart block Hypertension Chief Complaint Amb Documentation STEMI STEMI STEMI STEMI STEMI STEMI Amb Documentation STEMI STEMI PCI with stent S/P [facility] 04/13 STEMI PCI with stenting PCI with stenting SUPRAVENTRICULAR TACHICARDIA, CORONARY ARTERY DISE Reason for Visit Encounter for screen ing for malignant neoplasm of colon Coronary artery disease Dyslipidemia 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, managed as type [address] elevation (STEMI) myocardial infarction involving right coronary artery Dyslipidemia Stented coronary artery Transient complete heart block Hypertension Coronary artery disease Supraventricular tachycardia Chief Complaint STEMI STEMI STEMI STEMI STEMI STEMI Amb Documentation STEMI STEMI PCI with stent S/P [facility] 04/13 STEMI PCI with stenting PCI with stenting SUPRAVENTRICULAR TACHICARDIA, CORONARY ARTERY DISE SUPRAVENTRICULAR TACHICARDIA, CORONARY ARTERY DISE SUPRAVENTRICULAR TACHICARDIA, CORONARY ARTERY DISE SUPRAVENTRICULAR TACHICARDIA, CORONARY ARTERY DISE SUPRAVENTRICULAR TACHICARDIA, CORONARY ARTERY DISE Reason for Visit Encounter for screen ing for malignant neoplasm of colon Coronary artery disease Dyslipidemia 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, managed as type [address] elevation (STEMI) myocardial infarction involving right coronary artery Dyslipidemia Stented coronary artery Transient complete heart block Hypertension Atherosclerotic cardiovascular disease Coronary artery disease Supraventricular tachycardia Transient complete heart block Hyperlipemia Hypertension Chief Complaint STEMI STEMI STEMI STEMI STEMI STEMI Amb Documentation STEMI STEMI PCI with stent S/P [facility] 04/13 STEMI PCI with stenting SUPRAVENTRICULAR TACHICARDIA, CORONARY ARTERY DISE SUPRAVENTRICULAR TACHICARDIA, CORONARY ARTERY DISE SUPRAVENTRICULAR TACHICARDIA, CORONARY ARTERY DISE SUPRAVENTRICULAR TACHICARDIA, CORONARY ARTERY DISE SUPRAVENTRICULAR TACHICARDIA, CORONARY ARTERY DISE PCI with stenting S/P [facility] 05/19 SVT Reason for Visit Encounter for screen ing for malignant neoplasm of colon Coronary artery disease Dyslipidemia Diabetes 1.5, managed as type [address] elevation (STEMI) myocardial infarction involving right coronary artery Dyslipidemia Stented coronary artery Hypertension Atherosclerotic cardiovascular disease Coronary artery disease Hyperlipemia Hypertension Atherosclerotic cardiovascular disease Dyslipidemia SVT (supraventricular tachycardia) Hypertension Chief Complaint STEMI STEMI STEMI STEMI STEMI STEMI Amb Documentation STEMI STEMI PCI with stent S/P [facility] 04/13 STEMI PCI with stenting SUPRAVENTRICULAR TACHICARDIA, CORONARY ARTERY DISE SUPRAVENTRICULAR TACHICARDIA, CORONARY ARTERY DISE SUPRAVENTRICULAR TACHICARDIA, CORONARY ARTERY DISE SUPRAVENTRICULAR TACHICARDIA, CORONARY ARTERY DISE SUPRAVENTRICULAR TACHICARDIA, CORONARY ARTERY DISE PCI with stenting S/P [facility] 05/19 SVT 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 PCI with stenting Reason for Visit Coronary artery dise ase Dyslipidemia Diabetes 1.5, managed as type [address] elevation (STEMI) myocardial infarction involving right coronary artery Dyslipidemia Stented coronary artery Hypertension Atherosclerotic cardiovascular disease Coronary artery disease Hyperlipemia Hypertension Atherosclerotic cardiovascular disease Dyslipidemia SVT (supraventricular tachycardia) Hypertension Chief Complaint STEMI STEMI STEMI STEMI STEMI STEMI Amb Documentation STEMI STEMI PCI with stent S/P [facility] 04/13 STEMI PCI with stenting SUPRAVENTRICULAR TACHICARDIA, CORONARY ARTERY DISE SUPRAVENTRICULAR TACHICARDIA, CORONARY ARTERY DISE SUPRAVENTRICULAR TACHICARDIA, CORONARY ARTERY DISE SUPRAVENTRICULAR TACHICARDIA, CORONARY ARTERY DISE SUPRAVENTRICULAR TACHICARDIA, CORONARY ARTERY DISE PCI with stenting S/P [facility] 05/19 SVT 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 PCI with stenting R13.13 PCI with stenting Reason for Visit Coronary artery dise ase Dyslipidemia Diabetes 1.5, managed as type [address] elevation (STEMI) myocardial infarction involving right coronary artery Dyslipidemia Stented coronary artery Hypertension Atherosclerotic cardiovascular disease Coronary artery disease Hyperlipemia Hypertension Atherosclerotic cardiovascular disease Dyslipidemia SVT (supraventricular tachycardia) Hypertension Chief Complaint STEMI STEMI STEMI STEMI STEMI STEMI Amb Documentation STEMI STEMI PCI with stent S/P [facility] 04/13 STEMI PCI with stenting SUPRAVENTRICULAR TACHICARDIA, CORONARY ARTERY DISE SUPRAVENTRICULAR TACHICARDIA, CORONARY ARTERY DISE SUPRAVENTRICULAR TACHICARDIA, CORONARY ARTERY DISE SUPRAVENTRICULAR TACHICARDIA, CORONARY ARTERY DISE SUPRAVENTRICULAR TACHICARDIA, CORONARY ARTERY DISE PCI with stenting S/P [facility] 05/19 SVT 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 PCI with stenting R13.13 PCI with stenting DYSPHAGIA Reason for Visit Coronary artery dise ase Dyslipidemia Diabetes 1.5, managed as type [address] elevation (STEMI) myocardial infarction involving right coronary artery Dyslipidemia Stented coronary artery Hypertension Atherosclerotic cardiovascular disease Coronary artery disease Hyperlipemia Hypertension Atherosclerotic cardiovascular disease Dyslipidemia SVT (supraventricular tachycardia) Hypertension Chief Complaint STEMI STEMI STEMI STEMI Amb Documentation STEMI STEMI PCI with stent S/P [facility] 04/13 STEMI PCI with stenting SUPRAVENTRICULAR TACHICARDIA, CORONARY ARTERY DISE SUPRAVENTRICULAR TACHICARDIA, CORONARY ARTERY DISE SUPRAVENTRICULAR TACHICARDIA, CORONARY ARTERY DISE SUPRAVENTRICULAR TACHICARDIA, CORONARY ARTERY DISE SUPRAVENTRICULAR TACHICARDIA, CORONARY ARTERY DISE PCI with stenting S/P [facility] 05/19 SVT 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 PCI with stenting R13.13 PCI with stenting DYSPHAGIA Reason for Visit Coronary artery dise ase Dyslipidemia Diabetes 1.5, managed as type [address] elevation (STEMI) myocardial infarction involving right coronary artery Dyslipidemia Stented coronary artery Hypertension Atherosclerotic cardiovascular disease Coronary artery disease Hyperlipemia Hypertension Atherosclerotic cardiovascular disease Dyslipidemia SVT (supraventricular tachycardia) Hypertension Chief Complaint Admit Date CERVICAL SPINE April 20, 2024 9 :38am Cardiac Clearance June 07, 2024 9:00 am LIGHTHEADEDNESS, PREVIOUS CT SCAN RESULT S, PRE-OP June 08, 2024 12:38pm Reason for Visit Admit Date Cervical myelopathy April 20, 2024 9 :38am Dysphagia April 20, 2024 9 :38am Lightheaded June 07, 2024 9:00 am Preop cardiovascular exam June 07 9:00am Atherosclerotic cardiovascular disease M arch 2024 9:00am Dyslipidemia June 07, 2024 9:00 am Hypertension June 07, 2024 9:00 am SVT (supraventricular tachycardia) June 07, 2024 9:00am Chief Complaint Admit Date CERVICAL SPINE April 20, 2024 9 :38am Cardiac Clearance June 07, 2024 9:00 am LIGHTHEADEDNESS, PREVIOUS CT SCAN RESULT S, PRE-OP June 08, 2024 12:38pm Carotid artery disease June 23, 2024 9:11am Reason for Visit Admit Date Cervical myelopathy April 20, 2024 9 :38am Dysphagia April 20, 2024 9 :38am Lightheaded June 07, 2024 9:00 am Preop cardiovascular exam June 07 9:00am Atherosclerotic cardiovascular disease M arch 2024 9:00am Dyslipidemia June 07, 2024 9:00 am Hypertension June 07, 2024 9:00 am SVT (supraventricular tachycardia) June 07, 2024 9:00am Carotid artery disease June 23, 2024 9:11am Chief Complaint Admit Date CERVICAL SPINE April 20, 2024 9 :38am Cardiac Clearance June 07, 2024 9:00 am LIGHTHEADEDNESS, PREVIOUS CT SCAN RESULT S, PRE-OP June 08, 2024 12:38pm Carotid artery disease June 23, 2024 9:11am SEVERE R ICA STENOSIS July 06, 2024 10 :36am Chief Complaint Admit Date CERVICAL SPINE April 20, 2024 9 :38am Cardiac Clearance June 07, 2024 9:00 am LIGHTHEADEDNESS, PREVIOUS CT SCAN RESULT S, PRE-OP June 08, 2024 12:38pm Carotid artery disease June 23, 2024 9:11am SEVERE R ICA STENOSIS July 06, 2024 10 :36am Discuss CTA Results July 13, 2024 2:5 0pm RIGHT CAROTIDSTENT IN CATH LBAB WITH RFN A, OR STAF August 15, 2024 11:06am RIGHT CAROTIDSTENT IN CATH LBAB WITH RFN A, OR STAF August 15, 2024 1:03pm Reason for Visit Admit Date Cervical myelopathy April 20, 2024 9 :38am Dysphagia April 20, 2024 9 :38am Lightheaded June 07, 2024 9:00 am Preop cardiovascular exam June 07 9:00am Atherosclerotic cardiovascular disease M 2024 9:00am Dyslipidemia June 07, 2024 9:00 am Hypertension June 07, 2024 9:00 am SVT (supraventricular tachycardia) June 07, 2024 9:00am Carotid artery disease June 23, 2024 9:11am Stenosis of right carotid artery July 042024 2:50pm Stenosis of right carotid artery August 1:03pm Chief Complaint Admit Date Cardiac Clearance June 07, 2024 9:00 am LIGHTHEADEDNESS, PREVIOUS CT SCAN RESULT S, PRE-OP June 08, 2024 12:38pm Carotid artery disease June 23, 2024 9:11am SEVERE R ICA STENOSIS July 06, 2024 10 :36am Discuss CTA Results July 13, 2024 2:5 0pm RIGHT CAROTIDSTENT IN CATH LBAB WITH RFN A, OR STAF August 15, 2024 11:06am RIGHT CAROTIDSTENT IN CATH LBAB WITH RFN A, OR STAF August 15, 2024 1:03pm RIGHT CAROTIDSTENT IN CATH LBAB WITH RFN A, OR STAF August 16, 2024 10:45am Post TCAR 2-4 WK FU August 30, 2024 1:09p m Reason for Visit Admit Date Lightheaded June 07, 2024 9:00 am Preop cardiovascular exam June 07 9:00am Atherosclerotic cardiovascular disease M arch 2024 9:00am Dyslipidemia June 07, 2024 9:00 am Hypertension June 07, 2024 9:00 am SVT (supraventricular tachycardia) June 07, 2024 9:00am Carotid artery disease June 23, 2024 9:11am Stenosis of right carotid artery July 042024 2:50pm Stenosis of right carotid artery August 1:03pm Stenosis of right carotid artery August 1:09pm Additional Source Comments (unrecognized sect ion and content) No Status Records FoundNo Status Records FoundNo Status Records Found INFORMATION SOURCE (unrecogn ized section and content) DATE CREATED AUTHOR 12/23/2020 [facility] DATE CREATED AUTHOR AUTHOR'S ORGANIZ ATION 08/29/[address] [facility] DATE CREATED AUTHOR AUTHOR'S ORGANIZ ATION 09/02/2024 [facility] Goals (unrecognized section and content) Goals may be documented in a n alternate sectionGoals may be documented in an alternate sectionGoals may be documented in an alternate sectionGoals may be documented in an alternate sectionGoals may be documented in an alternate sectionGoals may be documented in an alternate sectionGoals may be documented in an alternate sectionGoals may be documented in an alternate sectionGoals may be documented in an alternate sectionGoals may be documented in an alternate sectionGoals may be documented in an alternate sectionGoals may be documented in an alternate sectionGoals may be documented in an alternate sectionGoals may be documented in an alternate section Source Comments (unrecognize d section and content) In the event this informatio n is protected by the Federal Confidentiality of Alcohol and Drug Abuse Patient Records regulations: The Federal rules restrict any use of the information to criminally investigate or prosecute any alcohol or drug abuse patient.[facility] the event this information is protected by the Federal Confidentiality of Alcohol and Drug Abuse Patient Records regulations: The Federal rules restrict any use of the information to criminally investigate or prosecute any alcohol or drug abuse patient.[facility] the event this information is protected by the Federal Confidentiality of Alcohol and Drug Abuse Patient Records regulations: The Federal rules restrict any use of the information to criminally investigate or prosecute any alcohol or drug abuse patient.[facility] Reason for Visit (unrecogniz ed section and content) Reason Comments Faxed to [facility] Reason Onset Date Comments Refill Request 09/09/2021 Reason Onset Date Comments colonoscopy/office visit due/quality team callin g 10/13/2023 Care Teams (unrecognized sec tion and content) Cloth Trimmer Hand Relationship Specialty Start Date End Date Andrew Calle MD [address] [place] [address] PCP - General Family Practice 05/30/19 [employer] Trimmer Hand Relationship Specialty Start Date End Date Andrew Calle MD [address] [place] [address] PCP - General Family Practice 05/30/19 Team Status: Active Member Role Status Dates Dr. Zena Barr MD Family Provider Active Love Crowley DO Primary Care Provider Active Team Status: Inactive Member Role Status Dates Love Crowley DO Primary Care Provider Active Dr. Tone Horton DO Attending Provider, Referring Provider Active Team Status: Inactive Member Role Status Dates Love Crowley DO Primary Care Provider Active Dr. Leonides Arauz MD Emergency Provider Active Team Status: Active Member Role Status Dates Love Crowley DO Primary Care Provider Active Hal Rivas MD Emergency Provider Active Dr. Markell Mitchell MD Admit Provider, Attending Provi melanie Active Team Status: Inactive Member Role Status Dates Love Crowley DO Primary Care Provider Active Dr. Leonides Arauz MD Attending Provider, Emergency Provider Active Team Status: Active Member Role Status Dates Love Crowley DO Primary Care Provider Active Hal Rivas MD Emergency Provider Active Dr. Markell Mitchell MD Admit Provider, A ttending Provider, Other Provider Active Team Status: Active Member Role Status Dates Love Crowley DO Primary Care Provider Active Hal Rivas MD Emergency Provider Active Dr. Markell Mitchell MD Admit Provider, Other Provider Active Dr. Marty Feliciano MD Attending Provider Active Team Status: Active Member Role Status Love Crowley DO Primary Care Provider Active Hal Rivas MD Emergency Provider Active Dr. Markell Mitchell MD Admit Provider, A ttending Provider, Other Provider Active Dr. Gil Mcclelland DO Other Provider Active Team Status: Active Member Role Status Dates Love Crowley DO Primary Care Provider Active Hal Rivas MD Emergency Provider Active Dr. Markell Mitchell MD Admit Provider, Other Provider Active Dr. Gil Mcclelland DO Attending Provider, Other Pro vider Active Team Status: Active Member Role Status Love Crowley DO Primary Care Provider Active Hal Rivas MD Emergency Provider Active Dr. Markell Mitchell MD Admit Provider, Other Provider Active Dr. Gil Mcclelland DO Other Provider Active Megan ENGEL PABakari Attending Provider Active Team Status: Inactive Member Role Status Dates Love Crowley DO Primary Care Provider Active Hal Rivas MD Emergency Provider Active Dr. Markell Mitchell MD Admit Provider, Attending Provi melanie Active Dr. Gil Mcclelland , DO Other Provider Active Team Status: Active Member Role Status Dates Love Crowley , DO Primary Care Provider Active Hal Rivas MD Emergency Provider Active Dr. Markell Mitchell MD Admit Provider, R eferring Provider, Other Provider Active Dr. Marty Feliciano MD Attending Provider Active Team Status: Inactive Member Role Status Dates Love Crowley , DO Primary Care Provider, Referring Provider Active Dr. Markell Mitchell MD Attending Provider Active Team Status: Inactive Member Role Status Dates Love Crowley , DO Primary Care Provider Active Dr. Heladio Archibald MD Attending Provider, Referr ing Provider Active Dr. Tone Horton , Other Provider Active Team Status: Active Member Role Status Dates Dr. Zena Barr MD Family Provider Active Mita Dejuan , SUPERVISOR TITLE-C Primary Care Provider Active Team Status: Active Member Role Status Dates Love Crowley DO Primary Care Provider Active Mindi Cohen Attending Provider Active Team Status: Active Member Role Status Dates Dr. Yash Estrada , DO Attending Provider, Other Prov ider Active Mitasravan Zaidi , SUPERVISOR TITLE-C Primary Care Provider, Referring P rovider Active Team Status: Inactive Member Role Status Dates Dr. Yash Estrada , DO Attending Provider Active Mita Dejuan , SUPERVISOR TITLE-C Primary Care Provider, Referring P rovider Active Team Status: Active Member Role Status Dates Mitasravan Zaidi , SUPERVISOR TITLE-C Primary Care Provider Active Dr. Tone Horton DO Attending Provider, Referring Provider Active Team Status: Inactive Member Role Status Dates Mitasravan Zaidi , SUPERVISOR TITLE-C Primary Care Provider Active Dr. Nicanor Martinez , Emergency Provider Active Team Status: Inactive Member Role Status Dates Mitasravan Zaidi , SUPERVISOR TITLE-C Primary Care Provider Active Dr. Tone Horton DO Attending Provider, Referring Provider Active Team Status: Active Member Role Status Dates Mita Zaidi , SUPERVISOR TITLE-C Primary Care Provider Active Dr. Nicanor Martinez , Emergency Provider Active Dr. Bo Albert MD Admit Provider, At tending Provider, Other Provider Active Team Status: Active Member Role Status Dates Mita Zaidi SUPERVISOR TITLE-C Primary Care Provider Active Dr. Nicanor Martinez DO Emergency Provider Active Dr. Bo Albert MD Admit Provider, Other Provider A ctive Dr. Tereza Tolentino MD Attending Provider, Other Provid er Active Team Status: Active Member Role Status Dates Mita Zaidi , SUPERVISOR TITLE-C Primary Care Provider Active Dr. Nicanor Martinez , Emergency Provider Active Dr. Bo Albert MD Admit Provider, At tending Provider, Other Provider Active Dr. Tereza Tolentino MD Other Provider Active Dr. Romie Tuttle MD Other Provider Active Team Status: Active Member Role Status Dates Mita Zaidi , SUPERVISOR TITLE-C Primary Care Provider Active Dr. Nicanor Martinez , Emergency Provider Active Dr. Bo Albert MD Admit Provider, Other Provider A ctive Dr. Tereza Tolentino MD Other Provider Active Dr. Romie Tuttle MD Attending Provider, Other Provid er Active Team Status: Active Member Role Status Dates Mita Zaidi , SUPERVISOR TITLE-C Primary Care Provider Active Michell Wheat Attending Provider Active Team Status: Active Member Role Status Dates Mita Zaidi , SUPERVISOR TITLE-C Primary Care Provider Active Dr. Nicanor Martinez , Emergency Provider Active Dr. Bo Albert MD Admit Provider, Other Provider A ctive Dr. Tereza Tolentino MD Other Provider Active Dr. Romie Tuttle MD Attending Provider Active Team Status: Active Member Role Status Dates Mita Zaidi , SUPERVISOR TITLE-C Primary Care Provider Active Dr. Eamon Cortez MD Attending Provider Active Team Status: Inactive Member Role Status Dates Mita Zaidi , SUPERVISOR TITLE-C Primary Care Provider Active Dr. Nicanor Martinez DO Emergency Provider Active Dr. Bo Albert MD Admit Provider, Other Provider A ctive Dr. Tereza Tolentino MD Other Provider Active Dr. Romie Tuttle MD Attending Provider Active Team Status: Inactive Member Role Status Dates Mita Dejuan , SUPERVISOR TITLE-C Primary Care Provider Active Tari Peñaloza SUPERVISOR TITLE, SUPERVISOR TITLE-C Attending Provider, Referring Pro vider Active Team Status: Inactive Member Role Status Dates Imtasravan Zaidi , SUPERVISOR TITLE-C Primary Care Provider, Referring P shyla Active Michell Kahn SUPERVISOR TITLE, SUPERVISOR TITLE-C Attending Provider Active Team Status: Active Member Role Status Dates Mitasravan Zaidi , SUPERVISOR TITLE-C Primary Care Provider Active Dr. Bo Albetr MD Attending Provider, Referring Pr ovider Active Team Status: Inactive Member Role Status Dates Mita Zaidi , SUPERVISOR TITLE-C Primary Care Provider Active Dr. Bo Albert MD Attending Provider, Referring Pr ovider Active Team Status: Active Member Role Status Dates Mita Zaidi , SUPERVISOR TITLE-C Primary Care Provider Active Dr. Senthil Hsieh , Emergency Provider Active Dr. Gil Mcclelland DO Admit Provider, Attending Pro vider Active Team Status: Active Member Role Status Dates Mita Zaidi , SUPERVISOR TITLE-C Primary Care Provider Active Dr. Senthil Hsieh , DO Emergency Provider Active Dr. Gil Mcclelland , DO Admit Provider, Other Provide r Active Dr. Markell Humphrey MD Attending Provider, Other Prov ider Active Team Status: Active Member Role Status Dates Mita Zaidi , SUPERVISOR TITLE-C Primary Care Provider Active Dr. Senthil Hsieh , Emergency Provider Active Dr. Gil Mcclelland , Admit Provider, Attending Provider, Other Provider Active Dr. Markell Humphrey MD Other Provider Active Team Status: Inactive Member Role Status Dates Mita Zaidi , SUPERVISOR TITLE-C Primary Care Provider Active Dr. Senthil Hsieh , Emergency Provider Active Dr. Gil Mcclelland DO Admit Provider, Attending Pro vider Active Dr. Markell Humphrey MD Other Provider Active Team Status: Inactive Member Role Status Dates Mita Zaidi , SUPERVISOR TITLE-C Primary Care Provider, Referring P rovider Active Dr. Markell Humphrey MD Attending Provider Active Team Status: Inactive Member Role Status Dates Mita Zaidi , SUPERVISOR TITLE-C Primary Care Provider Active Dr. Tone Ballard MD Attending Provider, Referring Pr ovider Active Dr. Nasim Brothers MD Other Provider Active Dr. Tone Horton , Other Provider Active Team Status: Active Member Role Status Dates Mita Zaidi , SUPERVISOR TITLE-C Primary Care Provider Active Dr. Tone Ballard MD Attending Provider, Referring Pr ovider Active Team Status: Inactive Member Role Status Dates Mita Zaidi , SUPERVISOR TITLE-C Primary Care Provider Active Dr. 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 Start Date End Date Mita Zaidi NP [facility] [place] [address] PCP - General Family Medicine 10/13/23 Team Status: Active Member Role Status Dates Mita Zaidi , SUPERVISOR TITLE-C Primary Care Provider Active Team Status: Inactive Member Role Status Dates Mitasravan Zaidi , SUPERVISOR TITLE-C Primary Care Provider Active Start: February 25, 2024 End: February 25, 2024 Mita Zaidi , SUPERVISOR TITLE-C Attending Provider Active St art: February 25, 2024 End: February 25, 2024 Mitasravan Zaidi , SUPERVISOR TITLE-C Referring Provider Active St art: February 25, 2024 End: February 25, 2024 Team Status: Inactive Member Role Status Dates Mitasravan Zaidi , SUPERVISOR TITLE-C Primary Care Provider Active Start: April 18, 2024 End: April 18, 2024 Mita Zaidi , SUPERVISOR TITLE-C Attending Provider Active St art: April 18, 2024 End: April 18, 2024 Mitasravan Zaidi , SUPERVISOR TITLE-C Referring Provider Active St art: April 18, 2024 End: April 18, 2024 Team Status: Inactive Member Role Status Dates Mitasravan Zaidi , SUPERVISOR TITLE-C Primary Care Provider Active Start: April 20, 2024 End: April 20, 2024 Mita Zaidi , SUPERVISOR TITLE-C Referring Provider Active St art: April 20, 2024 End: April 20, 2024 Dr. Yousif Bettencourt MD Attending Provider Active Start: April 20, 2024 End: April 20, 2024 Team Status: Inactive Member Role Status Dates Mita Zaidi , SUPERVISOR TITLE-C Primary Care Provider Active Start: May 04, 2024 End: May 04, 2024 Dr. Siria Velazquez DO Attending Provider Active Start: May 04, 2024 End: May 04, 2024 Team Status: Inactive Member Role Status Dates Mita Zaidi , SUPERVISOR TITLE-C Primary Care Provider Active Start: June 07, 2024 End: June 07, 2024 Mita Zaidi , SUPERVISOR TITLE-C Referring Provider Active St art: June 07, 2024 End: June 07, 2024 Jose Manuel Rocha SUPERVISOR TITLE, SUPERVISOR TITLE-C Attending Provider Active S tart: June 07, 2024 End: June 07, 2024 Team Status: Inactive Member Role Status Dates Mitasravan Zaidi , SUPERVISOR TITLE-C Primary Care Provider Active Start: June 08, 2024 End: June 08, 2024 Jose Manuel Rocha SUPERVISOR TITLE, SUPERVISOR TITLE-C Attending Provider Active S tart: June 08, 2024 End: June 08, 2024 Jose Manuel Rocha SUPERVISOR TITLE, SUPERVISOR TITLE-C Referring Provider Active S tart: June 08, 2024 End: June 08, 2024 Team Status: Active Member Role Status Dates Mita Zaidi SUPERVISOR TITLE-C Primary Care Provider Active Start: June 08, 2024 Dr. Senthil Noel MD Attending Provider Active S tart: June 08, 2024 Jose Manuel Rocha SUPERVISOR TITLE, SUPERVISOR TITLE-C Referring Provider Active S tart: June 08, 2024 Team Status: Inactive Member Role Status Dates Mita Zaidi SUPERVISOR TITLE-C Primary Care Provider Active Start: April 17, 2024 End: April 17, 2024 Mita Zaidi SUPERVISOR TITLE-C Attending Provider Active St art: April 17, 2024 End: April 17, 2024 Team Status: Inactive Member Role Status Dates TORO Grimm Attending Provider Active Star t: June 23, 2024 End: June 23, 2024 Jose Manuel Rocha SUPERVISOR TITLE, SUPERVISOR TITLE-C Referring Provider Active S tart: June 23, 2024 End: June 23, 2024 Mita Zaidi SUPERVISOR TITLE-C Primary Care Provider Active Start: June 23, 2024 End: June 23, 2024 Team Status: Inactive Member Role Status Dates Mita Zaidi SUPERVISOR TITLE-C Primary Care Provider Active Start: July 06, 2024 End: July 06, 2024 TORO Grimm Attending Provider Active Star t: July 06, 2024 End: July 06, 2024 TORO Grimm Referring Provider Active Star t: July 06, 2024 End: July 06, 2024 Team Status: Inactive Member Role Status Dates Mita Zaidi SUPERVISOR TITLE-C Primary Care Provider Active Start: July 13, 2024 End: July 13, 2024 Mita Zaidi SUPERVISOR TITLE-C Referring Provider Active St art: July 13, 2024 End: July 13, 2024 Dr. Senthil Noel MD Attending Provider Active S tart: July 13, 2024 End: July 13, 2024 Team Status: Active Member Role Status Dates Mita Zaidi SUPERVISOR TITLE-C Primary Care Provider Active Start: August 15, 2024 Dr. Senthil Noel MD Attending Provider Active S tart: August 15, 2024 Dr. Senthil Noel MD Referring Provider Active S tart: August 15, 2024 Dr. Senthil Noel MD Other Provider Active Start : August 15, 2024 Team Status: Inactive Member Role Status Dates Mita Zaidi SUPERVISOR TITLE-C Primary Care Provider Active Start: August 15, 2024 End: August 16, 2024 Dr. Senthil Noel MD Admit Provider Active Start : August 15, 2024 End: August 16, 2024 Dr. Senthil Noel MD Attending Provider Active S tart: August 15, 2024 End: August 16, 2024 Dr. Senthil Noel MD Referring Provider Active S tart: August 15, 2024 End: August 16, 2024 Team Status: Active Member Role Status Dates JOCELINE Morejon Primary Care Provider Active Start: August 16, 2024 Dr. Senthil Noel MD Admit Provider Active Start : August 16, 2024 Dr. Senthil Noel MD Referring Provider Active S tart: August 16, 2024 Dr. Senthil Noel MD Other Provider Active Start : August 16, 2024 TORO Grimm Attending Provider Active Star t: August 16, 2024 Team Status: Inactive Member Role Status Dates JOCELINE Morejon Primary Care Provider Active Start: August 30, 2024 End: August 30, 2024 JOCELINE Morejon Referring Provider Active St art: August 30, 2024 End: August 30, 2024 TORO Grimm Attending Provider Active Star t: August 30, 2024 End: August 30, 2024 FOR RECORDS PERTAINING TO PATIENTS WHO ARE [...] BE BASED ON THE PRIMARY CLINICAL RECORDS. [email or web address] [facility]. provides no warranty or guarantee of the accuracy or completeness of information in this document.
--- NOTE | 2024-09-06 07:44 | CDU_ITS ---
Reason For Study Reason For Study: S/P Rt ICA TCAR Rt. Velocities/BP Lt. Velocities/BP Prox CCA 55.7/11.3 cm/sec. Prox CCA 78.7/20.4 cm/sec. Mid CCA 71.4/11.9 cm/sec. Mid CCA 72.4/18.6 cm/sec. Dist CCA 62.0/10.0 cm/sec. Dist CCA 67.4/18.1 cm/sec. S/P TCAR Prox ICA 111.2/32.7 cm/sec. Prox Stent - 74.3/14.7 cm/s Mid ICA 103.7/34.0 cm/sec. Mid Stent - 64.8/16.6 cm/s Dist ICA 114.9/36.3 cm/sec. Dist Stent - 59.0/11.7 cm/s. Lt. ICA/CCA = 1.6. Mid ICA 67.8/19.4 cm/sec. Prox ECA 110.5/8.2 cm/sec. Dist ICA 69.9/19.3 cm/sec. Lt. Vert. 46.0/14.7 cm/sec. Rt. ICA/CCA = 1.0. Prox ECA 127.7/8.9 cm/sec. Rt. Vert. 35.7/8.6 cm/sec. Right Extracranial There is heterogeneous, smooth atherosclerotic plaque noted in the right common carotid artery. S/P TCAR - Stent Noted. There is heterogeneous, irregular atherosclerotic plaque noted in the right external carotid artery. Antegrade flow is noted in the right vertebral artery. Left Extracranial There is heterogeneous, smooth atherosclerotic plaque noted in the left common carotid artery. There is heterogeneous, irregular atherosclerotic plaque noted in the left internal carotid artery. There is heterogeneous, smooth atherosclerotic plaque noted in the left external carotid artery. Antegrade flow is noted in the left vertebral artery. Procedure Carotid Duplex [id number]. This is a Carotid Duplex examination using B-mode, color flow and specral Doppler. The exam was diagnostic. Exam performed in department. VL/Carotid Duplex Ultrasound Interpretation Summary Mild (<50%) stenosis right extracranial internal carotid. Mild (<50%) stenosis left extracranial internal carotid. Patent and antegrade vertebrals bilaterally. Ordering Physician: Pauly Mathews Referring Physician: Mita Zaidi Performed By: Michael Epps RVT
== END | disposition home or self-care (01) ==
LOC: CVS 07:31
PROVIDERS: PCP Nurse Practitioner Family; Referring Provider Physician Assistant; Visit Provider Physician Assistant
DX: Z48.812 Encounter for surgical aftercare following surgery on the circulatory system (principal); I65.21 Occlusion and stenosis of right carotid artery; I77.9 Disorder of arteries and arterioles, unspecified
CPT/HCPCS: 93880

== ENCOUNTER → 2024-10-04 | Outpatient (CLI) | payer MEDICARE, OTHER, SELFPAY ==
[2023-08-12 10:42] VITALS: BMI 27.0
[2024-10-04 08:45] LABS: Hematocrit 35.5 % (40-54); Hemoglobin 12.0 g/dL (13.0-16.5); Immature Granulocytes Count 0.020 X10^3/uL (0.0-0.0); Mean Corp Hgb Conc 33.8 g/dL (32-36); Mean Corpuscular Volume 89.9 fL (80-94); Mean Platelet Vol. 10.8 fl (6.2-12.0); NRBC Flagged by Analyzer 0 % (0-5); Platelet Count 231 K/mm3 (150-450); RBC Distribution Width CV 13.2 % (11.6-14.6); RBC Distribution Width SD 43.8 fl (35.1-43.9); Red Blood Count 3.95 M/mm3 (4.6-6.2); White Blood Count 6.4 K/mm3 (4.4-11.0)
[2024-10-04 09:43] LABS: Iron 65 ug/dL (65-175)
[2024-10-04 09:47] LABS: AST(SGOT) 16 U/L (<=37); Alanine Aminotransfer ALT/SGPT 14 U/L (<=46); Albumin, Serum 4.4 g/dL (3.4-4.8); Alkaline Phosphatase 55 U/L (40-129); Anion Gap 13 (5-15); BUN 34 mg/dL (4-19); BUN/Creat Ratio 23.5 RATIO (10-20); Calcium,Total 9.4 mg/dL (7.6-11.0); Carbon Dioxide 21.1 mmol/L (21.0-32.0); Chloride 105 mmol/L (98-108); Ferritin 34 ng/mL (37-417); Globulin 2.6 g/dL (2.2-4.2); Glucose 128 mg/dL (70-99); Potassium 4.3 mmol/L (3.3-5.1); Vitamin B12 554 pg/mL (180-914); Vitamin D,25 Hydroxy 33.4 ng/mL (30-100)
== END | disposition home or self-care (01) ==
LOC: LAB 07:33
PROVIDERS: PCP Nurse Practitioner Family; Referring Provider Nurse Practitioner Family; Visit Provider Nurse Practitioner Family
DX: I12.9 Hypertensive chronic kidney disease with stage 1 through stage 4 chronic kidney disease, or unspecified chronic kidney disease (principal); E11.42 Type 2 diabetes mellitus with diabetic polyneuropathy; E11.22 Type 2 diabetes mellitus with diabetic chronic kidney disease; N18.32 Chronic kidney disease, stage 3b; R53.83 Other fatigue; R73.01 Impaired fasting glucose; D50.9 Iron deficiency anemia, unspecified; E55.9 Vitamin D deficiency, unspecified; E53.8 Deficiency of other specified B group vitamins; E03.9 Hypothyroidism, unspecified
CPT/HCPCS: 36415; 80053; 82306; 82607; 82728; 83036; 83540; 84439; 84443; 85025

== ENCOUNTER → 2024-12-19 | Outpatient (CLI) | payer MEDICARE, OTHER, SELFPAY ==
[2023-08-12 10:42] VITALS: BMI 27.0
--- OUTSIDE RECORDS SUMMARY | 2024-12-19 08:11 | XMS RPT_ITS | CCD ---
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 Yash Estrada Other Provider Dejuan, VISOR INSTALLER-C Mita Primary Care Provider Dejuan, VISOR INSTALLER-C Mtia Referring Provider DO Love Crowley Primary Care [...] Love Crowley Primary Care Provider Femi HUFFMAN, VISOR INSTALLERBrittonC Michell Attending Provider Dr. Senthil Hsieh Emergency Provider Dr. Gil Mcclelland Admit Provider Dr. Gil Mcclelland Other Provider Dr. Markell Humphrey Attending Provider Dr. Markell Humphrey Other Provider Dr. Gil Mcclelland Attending Provider Dejuan, VISOR INSTALLER-C Mita Primary Care Provider Dr. Nicanor Martinez Emergency Provider Roosevelt, Dr. Soriano Admit Provider Roosevelt, Dr. Soriano Attending Provider Roosevelt, Dr. Soriano Other Provider Dr. Tereza Tolentino Attending Provider Dr. Tereza Tolentino Other Provider Dr. Romie Tuttle Attending Provider Unavailable Dr. Romie Tuttle Other Provider Unavailable Dr. Eamon Cortez Attending Provider Michell Wheat Attending Provider Unavailable Dejuan, VISOR INSTALLER-C Mita Referring Provider Femi VISOR INSTALLER, VISOR INSTALLER-C Michell Attending Provider Dr. Senthil Hsieh Emergency Provider Dr. Gil Mcclelland Admit Provider Dr. Gil Mcclelland Other Provider Dr. Markell Humphrey Attending Provider Dr. Markell Humphrey Other Provider Dr. Gil Mcclelland Attending Provider Dejuan, VISOR INSTALLER-C Mita Primary Care Provider Dr. Nicanor Martinez Emergency Provider [phone] Dr. Bo Albert Admit Provider Dr. Bo Albert Other Provider Dr. Tereza Tolentino Other Provider Dr. Bo Albert Attending Provider Dejuan VISOR INSTALLER, Mita Primary Care Provider Dejuan VISOR INSTALLER-C, Mita Primary Care Provider Dejuan VISOR INSTALLER-C, Mita Attending Provider Dejuan VISOR INSTALLER-C, Mita Referring Provider Dr. Yousif Bettencourt MD Attending Provider Dr. Siria Velazquez DO Attending Provider Roof VISOR INSTALLER-C, Jose Manuel H Attending Provider Aj VISOR INSTALLER-C, Jose Manuel H Referring Provider Dr. Senthil Noel MD Attending Provider Dejuan VISOR INSTALLER-C, Mita Primary Care Provider Dejuan VISOR INSTALLER-C, Mita Attending Provider Dejuan VISOR INSTALLER-C, Mita Referring Provider Bisi ENGEL, Pauly Attending Provider Bisi PA, Pauly Referring Provider Dejuan VISOR INSTALLER-C, Mita Primary Care Provider Dejuan VISOR INSTALLER-C, Mita Attending Provider Sadie SOLER, Dr. Ndiaye Referring Provider Dr. Senthil Noel MD Other Provider Sadie SOLER, Dr. Ndiaye Admit Provider Dejuan VISOR INSTALLER-C, Mita Primary Care Provider Dejuan VISOR INSTALLER-C, Mita Referring Provider Dejuan VISOR INSTALLER-C, Mita Primary Care Provider Sg SOLER, Dr. Dodd Attending Provider Dr. Eamon Cortez MD Attending Provider Roof VISOR INSTALLER-C, Jose Manuel H Referring Provider Dejuan VISOR INSTALLER-C, Mita Primary Care Provider Dejuan VISOR INSTALLER-C, Mita Referring Provider Dr. Senthil Noel MD Attending Provider Dejuan VISOR INSTALLER-C, Mita Attending Provider [phone] Markell Humphrey MD Other Provider Dejuan, Mita Primary Care Unavailable Mathews, Pauly Attending Unavailable Mathews, Pauly Referring Unavailable Dejuan, Mita Primary Care Unavailable Siria Velazquez Attending Unavailable Roof VISOR INSTALLER, Jose Manuel H Attending Unavailable Roof VISOR INSTALLER, Jose Manuel H Referring Unavailable Dejuan, Mita Primary Care Unavailable Dejuan, Mita Referring Unavailable Dejuan, Mita Attending Unavailable Markell Humphrey Unavailable Dejuan, Mita Primary Care Unavailable Dejuan, Mita Referring Unavailable Dejuan, Mita Attending Unavailable Dejuan, Mita Primary Care Unavailable Dejuan, Mita Primary Care Unavailable [place]ton, Senthil Attending Unavailable Sadie, Senthil Referring Unavailable Sadie, Senthil Consulting Unavailable Dejuan, Mita Primary Care Unavailable Mathews, Pauly Attending Unavailable Sadie, Senthil Referring Unavailable Sadie, Senthil Admitting Unavailable [place], Senthil Consulting Unavailable Yousif Bettencourt Attending Unavailable Dejuan, Mita Referring Unavailable Dejuan, Mita Primary Care Unavailable Ian Bernal Attending Unavailable Dejuan, Mita Primary Care Unavailable Dejuan, Mita Primary Care Unavailable [place], Senthil Attending Unavailable Sadie, Senthil Referring Unavailable [place], Senthil Admitting Unavailable Wietecha, Tone Attending Unavailable Wietecha, Tone Referring Unavailable Dejuan, Mita Primary Care Unavailable Wietecha, Tone Attending Unavailable Dejuan, Mita Primary Care Unavailable Ashley, Laxmi Consulting Unavailable Wietecha, Tone Attending Unavailable Wietecha, Tone Referring Unavailable Dejuan, Mita Primary Care Unavailable Femi HUFFMAN, Michell Consulting Unavailable Dejuan, Mita Primary Care Unavailable DraganHeladio Attending Unavailable DraganHeladioErlin Referring Unavailable Dejuan, Mita Referring Unavailable Dejuan, Mita Primary Care Unavailable Mathews, Pauly Attending Unavailable Yousif Bettencourt Attending Unavailable Dejuan, Mita Referring Unavailable Dejuan, Mita Primary Care Unavailable Dejuan, Mita Primary Care Unavailable Eamon Cortez Attending Unavailable Sg, Yousif Attending Unavailable Dejuan, Mita Primary Care Unavailable Dejuan, Mita Referring Unavailable Dejuan, Mita Attending Unavailable Dejuan, Mita Primary Care Unavailable Dejuan, Mita Primary Care Unavailable Mathews, Pauly Referring Unavailable Mathews, Pauly Attending Unavailable Roof VISOR INSTALLER, Jose Manuel H Attending Unavailable Dejuan, Mita Referring Unavailable Dejuan, Mita Primary Care Unavailable Roof VISOR INSTALLER, Jose Manuel H Referring Unavailable Dejuan, Mita Primary Care Unavailable Mathews, Pauly Attending Unavailable Dejuan, Mita Referring Unavailable Femi VISOR INSTALLER, Michell Attending Unavailable Dejuan, Mita Primary Care Unavailable Dejuan, Mita Primary Care Unavailable Dejuan, Mita Referring Unavailable [place], Senthil Attending Unavailable Dejuan, Mita Primary Care Unavailable Mathews, Pauly Referring Unavailable Sadie, Senthil Attending Unavailable Roof VISOR INSTALLER, Jose Manuel H Referring Unavailable Dejuan, Mita Primary Care Unavailable [place], Senthil Attending Unavailable Dejuan, Mita Attending Unavailable Dejuan, Mita Primary Care Unavailable Dejuan VISOR INSTALLER-C, Avant Primary Care Provider [phone] Dejuan GUAJARDOC, Mita Referring Provider [phone] Pauly Fontenot Attending Provider [phone] Pauly Fontenot Referring Provider [phone] Sadie SOLER, Dr. Ndiaye Attending Provider [phone] Dr. Markell Humphrey MD Attending Provider Allergies Allergy Classification Reported Allergen(s) Allergy Type Date of Onset Reaction(s) Facility (20 sources) Ouwwkxb-Rfs-Tgl Reductase Inhibitor; Translations: [Fmrtobs-Yeg-Qfb Reductase Inhibitor] Propensity to adverse reactions 9 Abd cramps/diarrhea , leg cramps [facility] (3 sources) atorvastatin Drug Allergy 1 Other: See Comments [facility] (3 sources) Dust Propensity to adverse reactions 5 Intolerance [facility] Work Phone: (2 sources) HMG-CoA reductase inhibitor Drug Intolerance 4 Other: See Comments [facility] (3 sources) Niacin Drug Allergy 7 GI Upset [facility] Work Phone: (3 sources) Pravastatin Drug Allergy 1 Other: See Comments [facility] (3 sources) rosuvastatin Drug Allergy 1 Other: See Comments [facility] (3 sources) Simvastatin Drug Allergy 1 Other: See Comments [facility] (3 sources) Homeopathic Products Propensity to adverse reactions 5 Intolerance [facility] Work Phone: (1 source) HMG-CoA reductase inhibitor Drug Intolerance 4 Other: See Comments [facility] Medications Current Medications Medication Drug Class(es) Dates Sig (Normalized) Sig (Original) acetaminophen 500 mg oral tablet (7 sources) Start: 08-16-2024 take 2 tablets by mouth every eight hours Acetaminophen 500 mg Tablet Active 1000 mg PO EVERY 8 HOURS 0 7 0 August 16, 2024 12:00am Allantoin (9 sources) [...] mg PO DAILY WITH MEALS 90 90 0 April 13, 2023 1:00am heart health Start: 10-19-2017 End: 12-06-2022 Aspirin (Lo-Dose Aspirin [...] mg tablet Active 75 mg PO DAILY 90 3 April 13, 2023 5:24pm anti platelet COMPOUNDED PRESCRIPTION (3 sources) Start: 1 COMPOUNDED [...] mg PO DAILY December 06, 2022 12:00am cholesterol Start: 03-18-2021 End: 09-09-2021 take 10 mg by mouth once daily Ezetimibe Active 10 MG PO DAILY December 06, 2022 12:00am Comment on above: Take 1 tablet by razia th once daily. fenofibrate 145 mg oral tablet (20 sources) Peroxisome Proliferator Receptor alpha Agonist Start: 10-20-19 Fenofibrate Nanocrystallized 145 tablet Active 145 mg PO DAILY October 19, 2017 12:00am CHOLESTEROL Comment on above: Take 1 tablet by razia th once daily. glipiZIDE 5 mg oral tablet (20 sources) Sulfonylurea Start: 04-26-19 End: 04-26-19 take 1 tablet by mouth at dinner Glipizide 5 mg tablet Active 5 mg PO WITH DINNER April 26, 2023 4:09pm diabetes Start: 12-06-2022 End: 04-26-2023 take 2.5 mg by mouth at dinner Glipizide 5 mg tablet Discontinued 2.5 mg PO WITH DINNER December 06, 2022 12:00am April 26, 2023 3:55pm diabetes Start: 12-06-2022 End: 04-26-2023 take 2.5 mg [...] 100 mcg tablet Active 100 ug PO POLLOUWETHFRSA May 18, 2023 1:00am thyroid take in am Start: 01-08-2013 End: 05-18-2023 Levothyroxine 75 MCG tablet Discontinued 100 ug PO DAILY January 08, 2013 12:00am May 18, 2023 12:03pm THYROID Start: 01-08-2013 End: 05-18-2023 take 100 ug [...] mg PO DAILY April 10, 2023 1:00am blood pressure Start: 12-06-2022 End: 04-10-2023 take 1 tablet by mouth once daily Losartan 25 mg tablet Discontinued 25 mg PO DAILY December 06, 2022 12:00am April 10, 2023 10:46am metFORMIN hydrochloride 1000 mg oral tablet (20 sources) Biguanide Start: 06-23-2021 take 1 tablet by mouth twice daily Metformin 1,000 mg tablet Active 1000 mg PO TWICE A DAY May 18, 2023 1:00am DIABETES On Hold: Resume on 08/18/24. Start: 01-08-2013 End: 05-18-2023 take 2 tablets by mouth twice daily Metformin 500 MG tablet Discontinued 1000 mg PO TWICE A DAY January 08, 2013 12:00am May 18, 2023 12:05pm DIABETES Start: 01-08-2013 End: 05-18-2023 take 1000 mg [...] Active 25 mg PO TWICE A DAY June 07, 2023 10:01am Gfdwpgsi-Frx-Sc-Lycop en-Lutein (Centrum Silver) 1 EACH tablet (20 sources) Start: 01-08-2013 take 1 tablet by mouth once daily Evyjcpvk-Lrz-Ha-Lyco pen-Lutein (Centrum Silver) 1 EACH tablet Active 1 EACH PO DAILY January 08, 2013 10:54am Start: 01-08-2013 take 1 tablet by razia once daily Bzvfdisw-Aeo-Jn-Lycopen-Lutein (Centrum Silver) 1 EACH tablet Active 1 NMA PO DAILY January 08, 2013 12:00am SUPPLEMENT' Start: 01-08-2013 take 1 tablet by razia th once daily Qeyoslef-Gap-Pg-Lycopen-Lutein (Centrum Silver) 1 EACH tablet Active 1 NMA PO DAILY January 08, 2013 12:00am Start: 01-08-2013 take 1 tablet by razia once daily Qncyeich-Emx-Ot-Lycopen-Lutein (Centrum Silver) 1 EACH tablet Active 1 EACH PO DAILY January 07, 2013 11:00pm Start: 01-08-2013 take 1 tablet by razia once daily Zsjwlufb-Prl-Vu-Lycopen-Lutein (Centrum Silver) 1 EACH tablet Active 1 EACH PO DAILY January 08, 2013 12:00am [place] 8-Awb-Esr-Fish Oil (Fi sh Oil) 500 MG Capsule. (8 sources) Start: 05-24-2015 [place] 3-Dha-Ep a-Fish Oil (Fish Oil) 500 MG Capsule. Active 1000 MG PO DAILY May 24, 2015 3:52pm WILL STOP 7 DAYS PRIOR TO SURGERY Start: 05-24-2015 [place] 3-Dha-Ep a-Fish Oil (Fish Oil) 500 MG Capsule. Active 1000 MG PO DAILY May 24, 2015 12:00am WILL STOP 7 DAYS PRIOR TO SURGERY Start: 05-24-2015 [place] 3-Dha-Ep a-Fish Oil (Fish Oil) 500 MG Capsule. Active 1000 MG PO DAILY May 24, 2015 1:00am WILL STOP 7 DAYS PRIOR TO SURGERY [place]-3 Fatty Acids 1,000 mg capsule (9 sources) Start: 06-23-2024 take 1 capsule by mouth twice daily [place]-3 Fatty Acids 1,000 mg capsule Active 1000 mg PO TWICE A DAY June 23, 2024 12:00am Start: 03-21-2025 take [address] [facility] once daily [place]-3 Fatty Acids 1,000 mg capsule Discontinued 1000 mg PO daily June 23, 2024 12:00am potassium citrate 10 meq extended release oral tablet (20 sources) Start: 05-24-2015 take 10 tablets by mouth once daily Potassium Citrate (Urocit-K 10) 10 MEQ tablet extended release Active 1080 mg PO DAILY May 24, 2015 1:00am SUPPLEMENT Start: 05-24-2015 Potassium Citr ate (Urocit-K 10) 10 MEQ tablet extended release Active 10 MEQ PO DAILY May 24, 2015 12:00am Comment on above: [facility] pravastatin sodium 20 mg oral tablet (20 sources) HMG-CoA Reductase Inhibitor Start: End: 4 take 1 tablet by mouth at bedtime Pravastatin 20 mg tablet Active 20 mg PO AT BEDTIME 90 3 June 07, 2023 10:01am THERAWORX foam (10 sources) Start: THERAWORX foam Active 0 .ROUTE .COMPLEX May 18, 2023 1:00am APPLY TO MUSCLE CRAMPS NEEDED; Vit A,C And M-Mrxdrc-Rpqjjwdb (Ocuvite With Lutein) 1 EACH tablet (20 sources) Start: take 1 tablet by mouth once daily Vit A,C And L-Vwshfl-Ofzxpwhx (Ocuvite With Lutein) 1 EACH tablet Active 1 EACH PO DAILY March 08, 2014 11:16am Start: 03-08-2014 End: 12-06-2022 take 1 tablet by mouth once daily Vit A,C And B-Iiadqt-Jjjcjvps (Ocuvite With Lutein) 1 EACH tablet Discontinued 1 NMA PO DAILY March 08, 2014 1:00am December 06, 2022 9:47pm EYE VITAMIN Start: 03-08-2014 End: 12-06-2022 take 1 tablet by mouth once daily Vit A,C And Q-Xsqwoo-Zmbqskai (Ocuvite With Lutein) 1 EACH tablet Discontinued 1 NMA PO DAILY March 08, 2014 1:00am December 06, 2022 9:47pm Start: 03-08-2014 End: 12-06-2022 take 1 tablet by mouth once daily Vit A,C And B-Zlmqra-Fcbmtlnx (Ocuvite With Lutein) 1 EACH tablet Discontinued 1 EACH PO DAILY March 08, 2014 12:00am December 06, 2022 8:47pm Start: 03-08-2014 End: 12-06-2022 take 1 tablet by mouth once daily Vit A,C And J-Mhonzg-Pznsqfuq (Ocuvite With Lutein) 1 EACH tablet Discontinued 1 EACH PO DAILY March 08, 2014 1:00am December 06, 2022 9:47pm Start: 03-08-2014 take 1 tablet by razia th once daily Vit A,C And B-Dxdlrf-Rbvtqtrn (Ocuvite With Lutein) 1 EACH tablet Active 1 EACH PO DAILY March 08, 2014 12:00am Start: 03-08-2014 take 1 tablet by razia th once daily Vit A,C And U-Ziazrk-Zwknphow (Ocuvite With Lutein) 1 EACH tablet Active 1 EACH PO DAILY March 08, 2014 1:00am vit A/vit C/vit E/zinc/copper (PRESERVISION AREDS ORAL) (3 sources) vit A/vit C/vit E/zinc/copper (PRESERVISION AREDS ORAL) Take by mouth. 0 Active Comment on above: Take by mouth. Vit C,X-Ch-Jngsm-Lutein-Leonid param (Preservision Areds-2) 250-90-40-1 mg capsule (20 sources) Start: take 2 capsules by mouth twice daily Vit C,Y-Ym-Yuaqf-Lutein-Ze axan (Preservision Areds-2) 250-90-40-1 mg capsule Active 1 {tbl} PO TWICE A DAY December 06, 2022 12:00am eye health Start: 12-06-2022 take 2 capsules by m out twice daily Vit C,X-Qj-Bwhuu-Lutein-Zeaxan (Preservision Areds-2) 250-90-40-1 mg capsule Active 1 {tbl} PO TWICE A DAY December 06, 2022 12:00am Start: 12-06-2022 Vit C,E-Zn-Hand Stamper sy-Ltvcef-Axdnsu (Preservision Areds-2) 250-90-40-1 mg capsule Active 1 TABLET PO TWICE A DAY December 05, 2022 11:00pm Start: 12-06-2022 Vit C,E-Zn-Hand Stamper mj-Nrrjsz-Wjeppb (Preservision Areds-2) 250-90-40-1 mg capsule Active 1 TABLET PO TWICE A DAY December 06, 2022 12:00am Completed/Discontinued Medications Medication Drug Class(es) Dates Sig (Normalized) Sig (Original) acetaminophen 325 mg / HYDROcodone bitartrate 5 mg oral tablet (20 sources) Opioid Agonist Start: 11-30-2018 End: 12-05-2018 Hydrocodone-Acetami nophen 1 EACH tablet Discontinued 1 NMA PO EVERY 4 HOURS NEEDED as needed for Pain 14 5 0 November 30, 2018 December 04, 2018 12:00am December 05, 2018 12:08am Malignant neoplasm of prostate Start: 11-30-2018 End: 12-05-2018 Hydrocodone-Acetaminophen Di scontinued 1 EACH PO EVERY 4 HOURS NEEDED 14 5 November 30, 2018 December 04, 2018 11:08pm [...] 24, 2015 1:00am December 06, 2022 7:36pm BP Start: 05-24-2015 End: 12-06-2022 Bisoprolol-Hydrochlorothiazi de Discontinued 1 EACH PO DAILY May 24, 2015 1:00am December 06, 2022 7:36pm Comment on above: Take 1 tablet by razia th once daily. cholecalciferol 0.05 mg oral capsule (20 sources) Vitamin D Start: 023 End: 024 Cholecalciferol (Vitamin D3) (D3-2000) 50 mcg (2,000 unit) capsule Discontinued 50 ug PO DAILY February 11, 2023 1:00am June 02, 2023 2:51pm vitamin ciprofloxacin 500 mg oral tablet (20 sources) Quinolone Antimicrobial Start: 019 End: take 1 tablet by mouth twice daily Ciprofloxacin Hcl 500 MG tablet Discontinued 500 mg PO TWICE A DAY November 30, 2018 12:00am December 06, 2022 7:35pm Cyanocobalamin-Liver Extract (18 sources) Start: End: take 1 tablet by mouth once [...] February 11, 2023 12:00am Cyanocobalamin-Liver Extract tablet (10 sources) Start: 02-11-2023 End: 04-10-2023 Cyanocobalamin-Liver Extract [...] 08, 2014 1:00am June 05, 2015 11:20am [place] 7-Opu-Ynu-Fish Oil (Fish Oil) 500 MG capsule,delayed release(DR/EC) (20 sources) Start: 05-24-2015 End: 05-19-2023 [place] 9-Lnl-Kgz-Fish Oil (Fish Oil) 500 MG capsule,delayed release(DR/EC) Discontinued 1000 mg PO TWICE A DAY May 24, 2015 1:00am May 19, 2023 10:42am supplement Start: 05-24-2015 End: 05-19-2023 [place] 5-Cjn-Utf-Fish Oil (Fi sh Oil) 500 MG capsule,delayed release(DR/EC) Discontinued 1000 mg PO TWICE A DAY May 24, 2015 1:00am May 19, 2023 10:42am Start: 05-24-2015 End: 05-19-2023 [place] 6-Rmi-Fho-Fish Oil (Fi sh Oil) 500 MG capsule,delayed release(DR/EC) Discontinued 1000 MG PO TWICE A DAY May 24, 2015 1:00am May 19, 2023 10:42am Start: 05-24-2015 End: 05-19-2023 [place] 0-Req-Kpq-Fish Oil (Fi sh Oil) 500 MG capsule,delayed release(DR/EC) Discontinued 1000 MG PO TWICE A DAY May 24, 2015 12:00am May 19, 2023 9:42am Start: 05-24-2015 [place] 3-Dha-Ep a-Fish Oil (Fish Oil) 500 MG capsule,delayed release(DR/EC) Active 1000 MG PO TWICE A DAY May 24, 2015 12:00am Start: 05-24-2015 [place] 3-Dha-Ep a-Fish Oil (Fish Oil) 500 MG capsule,delayed release(DR/EC) Active 1000 MG PO TWICE A DAY May 24, 2015 1:00am Start: 05-24-2015 [place] 3-Dha-Ep a-Fish Oil (Fish Oil) 500 MG capsule,delayed release(DR/EC) Active 1000 MG PO DAILY May 24, 2015 1:00am WILL STOP 7 DAYS PRIOR TO SURGERY oxyCODONE hydrochloride 5 mg oral tablet (7 sources) Opioid Agonist Start: 08-16-2024 End: 08-30-2024 take 1 tablet by mouth every eight hours as needed for pain Oxycodone 5 mg Tablet Discontinued 5 mg PO EVERY 8 HOURS NEEDED as needed for Pain Score 4-10 9 3 0 August 16, 2024 August 30, 2024 1:24pm Postoperative pain Other acute postprocedural pain potassium chloride 10 meq extended release oral tablet (19 sources) Start: 05-18-2023 End: 05-18-2023 take 1 tablet by mouth once daily Potassium Chloride 10 mEq tablet extended release Discontinued 10 meq PO DAILY May 18, 2023 1:00am May 18, 2023 12:11pm sulfamethoxazole 800 mg / trimethoprim 160 mg oral tablet (10 sources) Dihydrofolate Reductase Inhibitor Antibacterial, Sulfonamide Antimicrobial Start: 04-20-2024 End: 06-12-2024 Sulfamethoxazole-Tr imethoprim 800-160 mg tablet Discontinued 1 {tbl} PO [...] needed for Pain Score 4-10 8 2 0 December 08, 2022 12:00am December 22, 2022 [...] METOPROLOL Conditions associated with dizziness or vertigo (18 sources) Lightheadedness; Translations: [Dizziness and giddiness] 06-07-2024 Episodic Conduction disorders (20 sources) Complete atrioventricular block; Translations: [Atrioventricular block, complete] 04-10-2023 Chronic Coronary atherosclerosis and other heart disease (20 sources) Coronary arteriosclerosis; Translations: [Atherosclerotic heart disease of koi coronary artery without angina pectoris] Onset: 5 04-11-2023 Chronic Diabetes mellitus with complications (4 sources) Peripheral [...] Resolved: 5 05-13-2015 Chronic E Codes: Fall (10 sources) Fall; Translations: [Unspecified fall, initial encounter] 02-12-2024 Episodic Essential hypertension (20 sources) Hypertensive disorder; Translations: [Essential (primary) hypertension] 03-31-2005 Chronic Hypertension with complications and secondary hypertension (1 source) Hypertensive chronic kidney disease with stage 1 through stage 4 chronic kidney disease, or unspecified chronic kidney disease; Translations: [Hypertensive chronic kidney disease with stage 1 through stage 4 chronic kidney disease, or unspecified chronic kidney disease] Onset: 5 Chronic Nausea and vomiting (20 sources) Nausea and vomiting; Translations: [Nausea with vomiting, unspecified] 12-06-2022 Episodic Nonspecific chest pain (20 sources) Xiphoidalgia syndrome; Translations: [Other chest pain] 11-30-2022 Episodic Occlusion or stenosis of precerebral arteries (20 sources) Right carotid artery stenosis; Translations: [Occlusion [...] system] Onset: 5 Episodic Other circulatory disease (18 sources) Disorder of carotid artery; Translations: [Disorder of arteries and arterioles, unspecified] 06-09-2024 Chronic Other circulatory disease (1 source) Disorder of arteries and arterioles, unspecified; Translations: [Disorder of arteries and arterioles, unspecified] Onset: 5 Chronic Other gastrointestinal disorders (20 sources) Dysphagia; Translations: [Dysphagia, unspecified] 08-12-2023 Episodic Comment on above: FOOD GETS STUCK AT T IMES Other injuries and conditions due to external causes (10 sources) Avulsion of skin; Translations: [Other injury of unspecified body region, initial encounter] 02-12-2024 Episodic Other nervous system disorders (20 sources) Cervical myelopathy; Translations: [Disease of spinal [...] Spondylosis; intervertebral disc disorders; other back problems (19 sources) Degeneration of cervical intervertebral disc; Translations: [Other cervical disc degeneration, unspecified cervical region] 08-12-2023 Chronic Spondylosis; intervertebral disc disorders; other back problems (15 sources) Spinal stenosis in cervical region; Translations: [Spinal stenosis, cervical region] Onset: 5 10-14-2023 Episodic Superficial injury; contusion (20 sources) Hematoma of left knee region; Translations: [Contusion of left knee, initial encounter] Onset: 4 02-12-2024 Episodic Thyroid disorders (20 sources) Hypothyroidism; Translations: [Hypothyroidism, unspecified] Onset: 1 09-16-2010 Chronic Unclassified (1 source) Supraventricular tachycardia, unspecified; Translations: [Supraventricular tachycardia, unspecified] Onset: Past or Other Problems Problem Classification Problem Date Documented Da te Episodic/Chronic Coronary atherosclerosis and other heart disease (20 sources) Stented coronary artery; Translations: [Presence of coronary angioplasty implant and graft] Onset: 04-05-2023 04-12-2023 Episodic Comment on above: Prox RCA-RIRI Frontie r 3.0x38 mm Other gastrointestinal disorders (1 source) Other dysphagia; Translations: [Other dysphagia] Onset: 04-20-2024 Episodic Residual codes; unclassified (1 source) Sleep apnea; Translations: [Sleep apnea, unspecified] Onset: 03-31-2005 Resolved: 01-28-2015 01-28-2015 Chronic Urinary tract infections (2 sources) Urinary tract infection, site not specified; Translations: [Acute cystitis without hematuria] Onset: 01-22-2024 Episodic Results Test Name Value Interpretation Reference Range Facility Absolute lymphocyte countOrd ered By: Mita Zaidi on 10-04-2024 Lymphocytes Auto (Unsp spec) [#/Vol] 1.19 10*3/uL 0.83-4.51 [facility] Absolute neutrophil countOrd ered By: Mita Zaidi on 10-04-2024 Neutrophils (Bld) [#/Vol] 4.1 10*3/uL 2.0-7.7 [facility] Anion gap in Serum or Plasma Ordered By: Mita Zaidi on 10-04-2024 Anion gap [Moles/Vol] 13 mmol/L 5-15 [facility] Automated lymphocyte count a s percentage of total leukocytesOrdered By: Mita Zaidi on 10-04-2024 Lymphocytes/100 WBC Auto (Unsp spec) 18.6 % Low 19-41 [facility] BUN/creatinine ratioOrdered By: Mita Zaidi on 10-04-2024 Urea nitrogen/Creatinine [Mass ratio] 23.5 mg/mg High 10-20 [facility] Comment on above: Previous reported re sult: 23.5 RATIOEdited by: EZEKIEL on 10/04/24:0947 AMENDED REPORT 10/04/24 0947 BUN/CRE previously reported as: 23.5 H RATIO Basophil percentageOrdered B y: Mita Zaidi on 10-04-2024 Basophils/100 WBC (Bld) 1.1 % High 0-1 [facility] Bilirubin, totalOrdered By: Mita Zaidi on 10-04-2024 Bilirubin [Mass/Vol] 0.24 mg/dL 0.00-1.30 [facility] Comment on above: Previous reported re sult: 0.22 mg/dLEdited by: EZEKIEL on 10/04/24:0947 AMENDED REPORT 10/04/24 0947 T BILI previously reported as: 0.22 mg/dL CBC W/Diff, Automatedon Absolute Lymph 1.19 X10 3/uL Normal 0.83-4.51 [facility] Comment on above: Performed By: #### L 501.080 #### [facility] [address] [place], [address] Absolute Neut 4.1 X10 3/uL Normal 2.0-7.7 [facility] Comment on above: Performed By: #### L 501.080 #### [facility] [address] [place], [address] Basophils/100 WBC (Bld) 1.1 % High 0-1 [facility] Comment on above: Performed By: #### L 501.080 #### [facility] [address] [place], [address] Eosinophils/100 WBC (Bld) 7.8 % High 0-5 [facility] Comment on above: Performed By: #### L 501.080 #### [facility] [address] [place], [address] Erythrocyte distribution width (RBC) [Ratio] 13.2 % Normal 11.6-14.6 [facility] Comment on above: Performed By: #### L 501.080 #### [facility] [address] [place], [address] Hematocrit (Bld) [Volume fraction] 35.5 % Low 40-54 [facility] Comment on above: Performed By: #### L 501.080 #### [facility] [address] [place], [address] Hemoglobin (Bld) [Mass/Vol] 12.0 g/dL Low 13.0-16.5 [facility] Comment on above: Performed By: #### L 501.080 #### [facility] [address] [place], [address] IG% 0.300 Normal 0.0-0.9 [facility] Comment on above: Result Comment: IG% - Immature Granulocytes (promyelocytes, myelocytes and metamyelocytes) > 1% indicates that a LEFT SHIFT is Present. Performed By: #### L 501.080 #### [facility] [address] [place], [address] Lymphocytes/100 WBC (Bld) 18.6 % Low 19-41 [facility] Comment on above: Performed By: #### L 501.080 #### [facility] [address] [place], [address] MCH (RBC) [Entitic mass] 30.4 pg Normal 27.0-32.0 [facility] Comment on above: Performed By: #### L 501.080 #### [facility] [address] [place], [address] MCHC (RBC) [Mass/Vol] 33.8 g/dL Normal 32-36 [facility] Comment on above: Performed By: #### L 501.080 #### [facility] [address] [place], [address] MCV (RBC) [Entitic vol] 89.9 fL Normal 80-94 [facility] Comment on above: Performed By: #### L 501.080 #### [facility] [address] [place], [address] Monocytes/100 WBC (Bld) 8.8 % Normal 0-10 [facility] Comment on above: Performed By: #### L 501.080 #### [facility] [address] [place], [address] Neutrophils/100 WBC (Bld) 63.4 % Normal 47-70 [facility] Comment on above: Performed By: #### L 501.080 #### [facility] [address] [place], [address] Nucleated RBC (Bld) [#/Vol] 0 10*3/uL Normal 0-5 [facility] Comment on above: Performed By: #### L 501.080 #### [facility] [address] [place], [address] Platelet mean volume (Bld) [Entitic vol] 10.8 fL Normal 6.2-12.0 [facility] Comment on above: Performed By: #### L 501.080 #### [facility] [address] [place], [address] Platelets (Bld) [#/Vol] 231 10*3/uL Normal 150-450 [facility] Comment on above: Performed By: #### L 501.080 #### [facility] [address] [place], [address] RBC (Bld) [#/Vol] 3.95 10*6/uL Low 4.6-6.2 [facility] Comment on above: Performed By: #### L 501.080 #### [facility] [address] [place], [address] RDW SD 43.8 fl Normal 35.1-43.9 [facility] Comment on above: Performed By: #### L 501.080 #### [facility] [address] [place], [address] WBC (Bld) [#/Vol] 6.4 10*3/uL Normal 4.4-11.0 [facility] Comment on above: Performed By: #### L 501.080 #### [facility] [address] [place], [place], [address] Carbon dioxide, total [Moles /volume] in Central venous bloodOrdered By: Mita Zaidi on 10-04-2024 CO2 [Moles/Vol] 21.1 mmol/L 21.0-32.0 [facility] Comment on above: Previous reported re sult: 22.2 mmol/LEdited by: AUTOINS on 10/04/24:47 AMENDED REPORT 10/04/24946 CO2 previously reported as: 22.2 mmol/L Chloride assayOrdered By: Ra lee ann Zaidi on 10-04-2024 Chloride [Moles/Vol] 105 mmol/L 98-108 [facility] Comprehensive Metabolic Prof ilon 10-04-2024 Albumin [Mass/Vol] 4.4 g/dL Normal 3.4-4.8 [facility] Comment on above: Result Comment: AMENDED REPORT 10/04/24946 ALB previously reported as: 4.5 g/dL Performed By: #### L 501.080 #### [facility] [address] [place], [place], [address] Albumin/Globulin [Mass ratio] 1.7 {ratio} Normal 0.9-2.4 [facility] Comment on above: Result Comment: AMENDED REPORT 10/04/24946 A/G previously reported as: 1.9 RATIO Performed By: #### L 501.080 #### [facility] [address] [place], [address] ALK PHOS 55 U/L Normal 40-129 [facility] Comment on above: Result Comment: AMENDED REPORT 10/04/24946 ALK P previously reported as: 54 U/L Performed By: #### L 501.080 #### [facility] [address] [place], [place], [address] ALT [Catalytic activity/Vol] 14 U/L Normal <=46 [facility] Comment on above: Result Comment: AMENDED REPORT 10/04/24946 ALT previously reported as: 13 U/L Performed By: #### L 501.080 #### [facility] [address] [place], [place], [address] AST [Catalytic activity/Vol] 16 U/L Normal <=37 [facility] Comment on above: Performed By: #### L 501.080 #### [facility] [address] [place], [place], [phone] Bilirubin [Mass/Vol] 0.24 mg/dL Normal 0.00-1.30 [facility] Comment on above: Result Comment: AMENDED REPORT 10/04/24946 T BILI previously reported as: 0.22 mg/dL Performed By: #### L 501.080 #### [facility] [address] [place], [address] BUN/CRE 23.5 RATIO High 10-20 [facility] Comment on above: Result Comment: AMENDED REPORT 10/04/24946 BUN/CRE previously reported as: 23.5 H RATIO Performed By: #### L 501.080 #### [facility] [address] [place], [address] Calcium [Mass/Vol] 9.4 mg/dL Normal 7.6-11.0 [facility] Comment on above: Result Comment: AMENDED REPORT 10/04/24946 CA previously reported as: 9.5 mg/dL Performed By: #### L 501.080 #### [facility] [address] [place], [place], [phone] Chloride [Moles/Vol] 105 mmol/L Normal 98-108 [facility] Comment on above: Performed By: #### L 501.080 #### [facility] [address] [place], [address] CO2 [Moles/Vol] 21.1 mmol/L Normal 21.0-32.0 [facility] Comment on above: Result Comment: AMENDED REPORT 10/04/24946 CO2 previously reported as: 22.2 mmol/L Performed By: #### L 501.080 #### [facility] [address] [place], [address] Creatinine [Mass/Vol] 1.44 mg/dL High 0.70-1.20 [facility] Comment on above: Result Comment: AMENDED REPORT 10/04/24946 CREAT,SERUM previously reported as: 1.42 H mg/dL Performed By: #### L 501.080 #### [facility] [address] [place], [address] GAP 13 Normal 5-15 [facility] Comment on above: Performed By: #### L 501.080 #### [facility] [address] [place], [address] Globulin (S) [Mass/Vol] 2.6 g/dL Normal 2.2-4.2 [facility] Comment on above: Result Comment: AMENDED REPORT 10/04/24946 GLOB previously reported as: 2.4 g/dL Performed By: #### L 501.080 #### [facility] [address] [place], [address] Glucose [Mass/Vol] 128 mg/dL High 70-99 [facility] Comment on above: Performed By: #### L 501.080 #### [facility] [address] [place], [address] Potassium [Moles/Vol] 4.3 mmol/L Normal 3.3-5.1 [facility] Comment on above: Performed By: #### L 501.080 #### [facility] [address] [place], [address] Sodium [Moles/Vol] 140 mmol/L Normal 133-145 [facility] Comment on above: Performed By: #### L 501.080 #### [facility] [address] [place], [place], [address] T PROT 7.0 g/dL Normal 5.9-8.4 [facility] Comment on above: Result Comment: AMENDED REPORT 10/04/24946 T PROT previously reported as: 6.9 g/dL Performed By: #### L 501.080 #### [facility] [address] [place], [address] Urea nitrogen [Mass/Vol] 34 mg/dL High 4-19 [facility] Comment on above: Result Comment: AMENDED REPORT 10/04/24946 BUN previously reported as: 33 H mg/dL Performed By: #### L 501.080 #### [facility] [address] [place], [place], [address] Eosinophil percentageOrdered By: Mita Zaidi on 10-04-2024 Eosinophils/100 WBC (Bld) 7.8 % High 0-5 [facility] Erythrocyte distribution wid th ratioOrdered By: Mita Zaidi on 10-04-2024 Erythrocyte distribution width (RBC) [Ratio] 13.2 % 11.6-14.6 [facility] Erythrocyte distribution wid th standard deviationOrdered By: Mitasravan Zaidi on 10-04-2024 Erythrocyte distribution width (RBC) [Ratio] 43.8 fl 35.1-43.9 [facility] Ferritinon 10-04-2024 Ferritin [Mass/Vol] 34 ng/mL Low 37-417 [facility] Comment on above: Result Comment: AMENDED REPORT 10/04/24946 FERRITIN previously reported as: 35 L ng/mL Performed By: #### L 100.0100 #### [facility] [address] [place], [place], [address] Glomerular filtration rate ( GFR) estimation/1.73 sq m using serum, plasma, or whole bOrdered By: Mita Zaidi on 10-04-2024 GFR/1.73 sq M.predicted among non-blacks MDRD (S/P/Bld) [Vol rate/Area] 52 mL/min/{1.73_m2} Low >60 [facility] Comment on above: mL/min/1.73m2 CKD-EP I Creatinine Equation (2020) Hematocrit Auto (Bld) [Volum e fraction]Ordered By: Mita Zaidi on 10-04-2024 Hematocrit (Bld) [Volume fraction] 35.5 % Low 40-54 [facility] Hemoglobin A1con 10-04-2024 HbA1c (Bld) [Mass fraction] 6.1 % High <=5.6 [facility] Comment on above: Result Comment: Norm al < 5.7 % Prediabetic 5.7 - 6.4 % Diabetic >or= 6.5 % Please note range changes. Performed By: #### L 501.080 #### [facility] [address] [place], [place], [address] Hemoglobin A1c percentageOrd ered By: Mita Zaidi on 10-04-2024 HbA1c (Bld) [Mass fraction] 6.1 % High <5.7 [facility] Comment on above: Normal < 5.7 % Predi abetic 5.7 - 6.4 % Diabetic >or= 6.5 % Please note range changes. Hemoglobin measurementOrdere d By: Mita Zaidi on 10-04-2024 Hemoglobin (Bld) [Mass/Vol] 12.0 g/dL Low 13.0-16.5 [facility] Immature granulocytes/100 WB C Auto (Bld)Ordered By: Mita Zaidi on 10-04-2024 Immature granulocytes/100 WBC (Bld) 0.300 % 0.0-0.9 [facility] Comment on above: IG% - Immature Granu locytes (promyelocytes, myelocytes and metamyelocytes) > 1% indicates that a LEFT SHIFT is Present. Ironon 10-04-2024 Iron [Mass/Vol] 65 ug/dL Normal 65-175 [facility] Comment on above: Performed By: #### L 501.080 #### [facility] [address] [place], [address] Iron measurement (mass/mass) Ordered By: Mita Zaidi on 10-04-2024 Iron (Unsp spec) [Mass/Mass] 65 ug/dL 65-175 [facility] - Chemistry and C hemistry - challengeOrdered By: Mita Zaidi on 10-04-2024 AST [Catalytic activity/Vol] 16 U/L <38 [facility] MCV (mean corpuscular volume ) determinationOrdered By: Mita Zaidi on 10-04-2024 MCV (RBC) [Entitic vol] 89.9 fL 80-94 [facility] Mean corpuscular hemoglobin (MCH) determinationOrdered By: Mita Zaidi on 10-04-2024 MCH (RBC) [Entitic mass] 30.4 pg 27.0-32.0 [facility] Mean corpuscular hemoglobin concentration (MCHC) determinationOrdered By: Mita Zaidi on 10-04-2024 MCHC (RBC) [Mass/Vol] 33.8 g/dL 32-36 [facility] Mean platelet volume determi nationOrdered By: Mita Zaidi on 10-04-2024 Platelet mean volume (Bld) [Entitic vol] 10.8 fL 6.2-12.0 [facility] Monocyte percentageOrdered B y: Mita Zaidi on 10-04-2024 Monocytes/100 WBC (Bld) 8.8 % 0-10 [facility] Neutrophil percentageOrdered By: Mita Zaidi on 10-04-2024 Neutrophils/100 WBC (Bld) 63.4 % 47-70 [facility] Nucleated red blood cell per centageOrdered By: Mita Zaidi on 10-04-2024 Nucleated RBC/100 WBC (Bld) [Ratio] 0 % 0-5 [facility] Platelet countOrdered By: Ra lee ann Zaidi on 10-04-2024 Platelets (Bld) [#/Vol] 231 10*3/uL 150-450 [facility] Potassium measurement (mass/ volume)Ordered By: Mita Zaidi on 10-04-2024 Potassium (Unsp spec) [Mass/Vol] 4.3 mmol/L 3.3-5.1 [facility] RBC Auto (Bld) [#/Vol]Ordere d By: Mita Zaidi on 10-04-2024 RBC (Bld) [#/Vol] 3.95 10*6/uL Low 4.6-6.2 [facility] Serum creatinine measurement (mass/volume)Ordered By: Mita Zaidi on 10-04-2024 Creatinine [Mass/Vol] 1.44 mg/dL High 0.70-1.20 [facility] Comment on above: Previous reported re sult: 1.42 mg/dLEdited by: EZEKIEL on 10/04/24:0947 AMENDED REPORT 10/04/24946 CREAT,SERUM previously reported as: 1.42 H mg/dL Serum globulin measurementOr dered By: Mita Zaidi on 10-04-2024 Globulin (S) [Mass/Vol] 2.6 g/dL 2.2-4.2 [facility] Comment on above: Previous reported re sult: 2.4 g/dLEdited by: EZEKIEL on 10/04/24:0947 AMENDED REPORT 10/04/24 09 GLOB previously reported as: 2.4 g/dL Serum glucose measurement (m ass/volume)Ordered By: Mita Zaidi on 10-04-2024 Glucose [Mass/Vol] 128 mg/dL High 70-99 [facility] Serum or plasma alanine ricci otransferase (ALT) measurementOrdered By: Mita Zaidi on 10-04-2024 ALT [Catalytic activity/Vol] 14 U/L <47 [facility] Comment on above: Previous reported re sult: 13 U/LEdited by: EZEKIEL on 10/04/24:0947 AMENDED REPORT 10/04/2447 ALT previously reported as: 13 U/L Serum or plasma albumin jennifer urement (mass/volume)Ordered By: Mita Zaidi on 10-04-2024 Albumin [Mass/Vol] 4.4 g/dL 3.4-4.8 [facility] Comment on above: Previous reported re sult: 4.5 g/dLEdited by: EZEKIEL on 10/04/24:0947 AMENDED REPORT 10/04/24946 ALB previously reported as: 4.5 g/dL Serum or plasma albumin/glob ulin mass ratioOrdered By: Mita Zaidi on 10-04-2024 Albumin/Globulin [Mass ratio] 1.7 {ratio} 0.9-2.4 [facility] Comment on above: Previous reported re sult: 1.9 RATIOEdited by: EZEKIEL on 10/04/24:0947 AMENDED REPORT 10/04/24946 A/G previously reported as: 1.9 RATIO Serum or plasma alkaline hal sphatase measurementOrdered By: Mita Zaidi on 10-04-2024 ALP [Catalytic activity/Vol] 55 U/L 40-129 [facility] Comment on above: Previous reported re sult: 54 U/LEdited by: EZEKIEL on 10/04/24:0947 AMENDED REPORT 10/04/24946 ALK P previously reported as: 54 U/L Serum or plasma calcium jennifer urement (mass/volume)Ordered By: Mita Zaidi on 10-04-2024 Calcium [Mass/Vol] 9.4 mg/dL 7.6-11.0 [facility] Comment on above: Previous reported re sult: 9.5 mg/dLEdited by: EZEKIEL on 10/04/24:0947 AMENDED REPORT 10/04/24946 CA previously reported as: 9.5 mg/dL Serum or plasma ferritin yelitza surement (mass/volume)Ordered By: Mita Zaidi on 10-04-2024 Ferritin [Mass/Vol] 34 ng/mL Low 37-417 [facility] Comment on above: Previous reported re sult: 35 ng/mLEdited by: EZEKIEL on 10/04/24:0947 AMENDED REPORT 10/04/24946 FERRITIN previously reported as: 35 L ng/mL Serum or plasma urea nitroge n measurement (mass/volume)Ordered By: Mita Zaidi on 10-04-2024 Urea nitrogen [Mass/Vol] 34 mg/dL High 4-19 [facility] Comment on above: Previous reported re sult: 33 mg/dLEdited by: AUTOINS on 10/04/24:0947 AMENDED REPORT 10/04/24946 BUN previously reported as: 33 H mg/dL Sodium levelOrdered By: Cassie Zaidi on 10-04-2024 Sodium [Moles/Vol] 140 mmol/L 133-145 [facility] T4 Free Directon 10-04-2024 T4 FREE DIRECT 1.30 ng/dL Normal 0.76-1.46 [facility] Comment on above: Result Comment: AMENDED REPORT 10/04/24946 T4 FREE DIRECT previously reported as: 1.40 ng/dL Performed By: #### L 100.0100 #### [facility] [address] [place], [address] T4 freeOrdered By: Mita deras on 10-04-2024 Free T4 [Mass/Vol] 1.30 ng/dL 0.76-1.46 [facility] Comment on above: Previous reported re sult: 1.40 ng/dLEdited by: AUTOINS on 10/04/24:0947 AMENDED REPORT 10/04/24946 T4 FREE DIRECT previously reported as: 1.40 ng/dL TSH DL <= 0.005 mIU/L QnOrde red By: Mita Zaidi on 10-04-2024 TSH Qn 1.000 uIU/mL 0.300-4.200 [facility] Comment on above: Previous reported re sult: 1.020 uIU/mLEdited by: AUTOINS on 10/04/24:0947 AMENDED REPORT 10/04/24946 TSH previously reported as: 1.020 uIU/mL Thyroid Stim Hormone (TSH)on 10-04-2024 TSH 1.000 uIU/mL Normal 0.300-4.200 [facility] Comment on above: Result Comment: AMENDED REPORT 10/04/24946 TSH previously reported as: 1.020 uIU/mL Performed By: #### L 501.080 #### [facility] [address] [place], [place], [id number] Total proteinOrdered By: Luis Zaidi on 10-04-2024 Protein [Mass/Vol] 7.0 g/dL 5.9-8.4 [facility] Comment on above: Previous reported re sult: 6.9 g/dLEdited by: AUTOINS on 10/04/24:0947 AMENDED REPORT 10/04/24946 T PROT previously reported as: 6.9 g/dL Vitamin B12on 10-04-2024 Cobalamin (Vitamin B12) [Mass/Vol] 554 pg/mL Normal 180-914 [facility] Comment on above: Result Comment: AMENDED REPORT 10/04/24946 Vitamin B12 previously reported as: 561 pg/mL Performed By: #### L 501.080 #### [facility] [address] [place], [place], [address] Vitamin B12 ser/plasOrdered By: Mita Zaidi on 10-04-2024 Cobalamin (Vitamin B12) [Mass/Vol] 554 pg/mL 180-914 [facility] Comment on above: Previous reported re sult: 561 pg/mLEdited by: EZEKIEL on 10/04/24:0947 AMENDED REPORT 10/04/24946 Vitamin B12 previously reported as: 561 pg/mL Vitamin D,25 Hydroxyon 10-04 Vitamin D 25-OH 33.4 ng/mL Normal 30-100 [facility] Comment on above: Result Comment: Kate min D Status Deficiency: <20 ng/mL (50nmol/L) Insufficiency: 20-30 ng/mL (50-75 nmol/L) Sufficiency: 30-100 ng/mL (75-250 nmol/L) Toxicity: >100 ng/mL (>250 nmol/L) AMENDED REPORT 10/04/24946 Vitamin D 25-OH previously reported as: 34.7 ng/mL Vitamin D Status Deficiency: <20 ng/mL (50nmol/L) Insufficiency: 20-30 ng/mL (50-75 nmol/L) Sufficiency: 30-100 ng/mL (75-250 nmol/L) Toxicity: >100 ng/mL (>250 nmol/L) Performed By: #### L 100.0100 #### [facility] [address] [place], [place], [address] White blood cell (WBC) count Ordered By: Mita Zaidi on 10-04-2024 WBC (Bld) [#/Vol] 6.4 10*3/uL 4.4-11.0 [facility] Cerv Spine 4 or 5 Viewson Cerv Spine 4 or 5 Views [facility] Services [address] [place], [place] [address] Cerv Spine 4 or 5 Views MR#: [id number] Acct: [id number] Name: SINDY GREENFIELD Rep #: [id number] : 1950 M 74 From: Enrique Rosenbaum MD PCP: JOCEILNE Morejon Status: DEP AMB Study: Cerv Spine 4 or 5 Views Date of Exam: 09/29/24 Exam# [id number] Ordering Dr: Lavonne Nina PROCEDURE: CERV SPINE 4 OR 5 VIEWS 09/29/2024 REASON FOR EXAM: CHRONIC PAIN TECHNIQUE: CERV SPINE 4 OR 5 VIEWS COMPARISON: 10/14/2023 FINDINGS: Multilevel anterior osteophyte formation. Disc space narrowing, C5-C6 and C6-C7. Minimal scattered facet arthritis. No abnormal motion with flexion-extension. No interspinous widening. Mild cervicothoracic scoliosis. Status post right-sided carotid artery stenting. No acute bone, soft tissue, or lung apical pathology. RAD/Cerv Spine 4 or 5 Views IMPRESSION: Cervical spine degeneration. Disclaimer: Reading Location: [facility] CC: JOCELINE Zaidi; TORO Robledo Human Resources Services Specialist: Signed Normal [facility] Orthopedic Visit Reporton Orthopedic Visit Report [facility] [address] [place] [address] [address] [place] [address] OFFICE VISIT Date of Service: 09/29/24 MR#: [id number] Acct: [id number] Name: SINDY GREENFIELD Rep #: [id number] : 1950 Provider: Dr. Yousif Bettencourt MD Age/Sex: 74/M [place] [facility] [place] [facility] [place] Status: Signed Intake Vital Signs 08/15/24 15:20 Height 5 ft 9 in Intake Visit Reasons: CERVICAL SPINE Allergies Myrvhke-TNY-NbQ Reductase Inhibitor (Nbghthw-Quw-Mgo Reductase Inhibitor) Adverse Reaction (Verified 09/29/24 15:37) leg cramps Medications ???Medication ???Instructions ???Recorded ???Confirmed ???Type mymcmryv-rlq-ygsxj acid 0.4 1 ea PO DAILY SUPPLEMENT' 01/08/13 09/29/24 History mg-lycopene 300 mcg-lutein 250 mcg tablet (Centrum Silver) potassium citrate 10 mEq (1,080 1,080 mg PO DAILY SUPPLEMENT 05/2409/29/24 History mg) tablet,extended release (Urocit-K 10) fenofibrate nanocrystallized 145 145 mg PO DAILY CHOLESTEROL 09/29/24 History mg tablet ezetimibe 10 mg tablet 10 mg PO DAILY cholesterol 3 09/29/24 History vit C 250 mg-vit E 90 mg-zinc 40 1 tab PO BID eye health 12/06/22 0 09/29/24 History mg-copper 1 mt-rurnyj-hilxcp capsule (PreserVision AREDS-2) losartan 100 mg tablet 100 mg PO DAILY blood pressure 09/2609/29/24 History aspirin 81 mg tablet,delayed 81 mg PO DAILYCM heart health 90 0 04/13/23 09/29/24 Rx release days #90 tabs clopidogrel 75 mg tablet 75 mg PO DAILY anti platelet #90 0 04/13/23 09/29/24 Rx tabs glipizide 5 mg tablet 5 mg PO DINNER diabetes 04/26/23 0 09/29/24 History THERAWORX See Rx Instructions .Route .COMPLE X 05/18/23 09/29/24 History levothyroxine 100 mcg tablet 100 mcg PO MOTUWETHFRSA thyroid 09/29/24 History metformin 1,000 mg tablet 1,000 mg PO BID DIABETES 05/18/23 09/29/24 History Held on 08/16/24. Instructions: Resume on 08/18/24. metoprolol tartrate 25 mg tablet 25 mg PO BID #180 tabs 06/07/23 Rx pravastatin 20 mg tablet 20 mg PO QHS #90 tabs 06/07/23 Rx omega-3 fatty acids 1,000 mg 1,000 mg PO BID 06/23/24 09/29/24 History capsule levothyroxine 100 mcg capsule 150 mcg PO GONZALES 08/01/24 09/29/24 Hi story acetaminophen 500 mg tablet 1,000 mg (2 x 500 mg) PO Q8 7 days 08/16/24 09/29/24 Rx #0 tabs Have you fallen in the past year?: No PFSH Medical History (Updated 09/29/24 @ 16:01 by Laxmi Cohen RN) DISH (diffuse idiopathic skeletal hyperostosis) Anxiety Generalized psoriasis Cervical arthritis Syncope Thyroid [...] type: does not use caffeine: No HPI CERVICAL SPINE Details: This documentation accurately reflects the service provided and the decisions made by me, Dr. Yousif Bettencourt MD 09/29/24 7616. Part of today???s visit was documented by Izabela GONSALVES and Laxmi Cohen RN, acting as scribe. SINDY GREENFIELD is a 74 year old M here today for his cervical spine wanting to discuss surgery. He denies any changes. He did have a stent placed for his carotid artery on August 15 that was done by Dr. Noel. He does continue to take his Plavix and the aspirin 81mg. He complains of dysphagia with dry meats and breads which he avoids. 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 He complains of occasional pain in his neck. He reports muscle spasms and cramping in his neck. He denies numbness into his hands. He reports balance issues while ambulating, he denies recent falls. He has not been dropping items and can sign his name. The patient is a 74-year-old male presenting with dysphagia and neck discomfort. The dysphagia has been persistent, with the patient experiencing difficulty s (more content not included)... Normal [facility] Duplex ultrasound of carotid artery reportOrdered By: Senthil Noel on 09-07-2024 Study report [facility] [address] [place] [address] Carotid Duplex Ultrasound 09/06/24 0807 MR#: [id number] Acct: [id number] Name: SINDY GREENFIELD Rep #:[id number] : 1950 74 From: Senthil Hernández Attending Dr: TORO Grimm Stat us: REG CLI Ordering Dr: Pauly Mathews Date: Location: [facility] Sex: M C Admitted: Reason For Study Reason For Study: S/P Rt ICA TCAR Rt. Velocities/BP Lt. Velocities/BP Prox CCA 55.7/11.3 cm/sec. Prox CCA 78.7/20.4 cm/sec. Mid CCA 71.4/11.9 cm/sec. Mid CCA 72.4/18.6 cm/sec. Dist CCA 62.0/10.0 cm/sec. Dist CCA 67.4/18.1 cm/sec. S/P TCAR Prox ICA 111.2/32.7 cm/sec. Prox Stent - 74.3/14.7 cm/s Mid ICA 103.7/34.0 cm/sec. Mid Stent - 64.8/16.6 cm/s Dist ICA 114.9/36.3 cm/sec. Dist Stent - 59.0/11.7 cm/s. Lt. ICA/CCA = 1.6. Mid ICA 67.8/19.4 cm/sec. Prox ECA 110.5/8.2 cm/sec. Dist ICA 69.9/19.3 cm/sec. Lt. Vert. 46.0/14.7 cm/sec. Rt. ICA/CCA = 1.0. Prox ECA 127.7/8.9 cm/sec. Rt. Vert. 35.7/8.6 cm/sec. Right Extracranial There is heterogeneous, smooth atherosclerotic plaque noted in the right common carotid artery. S/P TCAR - Stent Noted. There is heterogeneous, irregular atherosclerotic plaque noted in the right external carotid artery. Antegrade flow is noted in the right vertebral artery. Left Extracranial There is heterogeneous, smooth atherosclerotic plaque noted in the left common carotid artery. There is heterogeneous, irregular atherosclerotic plaque noted in the left internal carotid artery. There is heterogeneous, smooth atherosclerotic plaque noted in the left external carotid artery. Antegrade flowis noted in the left vertebral artery. Procedure Carotid Duplex [id number]. This is a Carotid Duplex examination using B-mode, color flow and specral Doppler. The exam was diagnostic. Exam performed in department. VL/Carotid Duplex Ultrasound Interpretation Summary Mild (<50%) stenosis right extracranial internal carotid. Mild (<50%) stenosis left extracranial internal carotid. Patent and antegrade vertebrals bilaterally. Ordering Physician: Pauly Mathews Referring Physician: Mita Zaidi Performed By: Michael Epps RVT 09/07/24 1047 Date _ Senthil Sadie MD CC: JOCELINE Zaidi; TORO Grimm ~ Date Dictated: 09/06/24 08 Date Transcribed: 09/07/24 1047 Human Resources Services Specialist: Signed [facility] Work Phone: Carotid Duplex Ultrasoundon 09-06-2024 Carotid Duplex Ultrasound [facility] [address] [place] [address] Carotid Duplex Ultrasound 09/06/24806 MR#: [id number] Acct: [id number] Name: SINDY GREENFIELD Rep #: [id number] : 1950 74 From: Senthil Noel MD Attending Dr: TORO Grimm Status: REG CLI Ordering Dr: Pauly Mathews Date: 09/06/24 Location: [facility] Sex: M C Admitted: Reason For Study Reason For Study: S/P Rt ICA TCAR Rt. Velocities/BP Lt. Velocities/BP Prox CCA 55.7/11.3 cm/sec. Prox CCA 78.7/20.4 cm/sec. Mid CCA 71.4/11.9 cm/sec. Mid CCA 72.4/18.6 cm/sec. Dist CCA 62.0/10.0 cm/sec. Dist CCA 67.4/18.1 cm/sec. S/P TCAR Prox ICA 111.2/32.7 cm/sec. Prox Stent - 74.3/14.7 cm/s Mid ICA 103.7/34.0 cm/sec. Mid Stent - 64.8/16.6 cm/s Dist ICA 114.9/36.3 cm/sec. Dist Stent - 59.0/11.7 cm/s. Lt. ICA/CCA = 1.6. Mid ICA 67.8/19.4 cm/sec. Prox ECA 110.5/8.2 cm/sec. Dist ICA 69.9/19.3 cm/sec. Lt. Vert. 46.0/14.7 cm/sec. Rt. ICA/CCA = 1.0. Prox ECA 127.7/8.9 cm/sec. Rt. Vert. 35.7/8.6 cm/sec. Right Extracranial There is heterogeneous, smooth atherosclerotic plaque noted in the right common carotid artery. S/P TCAR - Stent Noted. There is heterogeneous, irregular atherosclerotic plaque noted in the right external carotid artery. Antegrade flow is noted in the right vertebral artery. Left Extracranial There is heterogeneous, smooth atherosclerotic plaque noted in the left common carotid artery. There is heterogeneous, irregular atherosclerotic plaque noted in the left internal carotid artery. There is heterogeneous, smooth atherosclerotic plaque noted in the left external carotid artery. Antegrade flow is noted in the left vertebral artery. Procedure Carotid Duplex 75409. This is a Carotid Duplex examination using B-mode, color flow and specral Doppler. The exam was diagnostic. Exam performed in department. VL/Carotid Duplex Ultrasound Interpretation Summary Mild (<50%) stenosis right extracranial internal carotid. Mild (<50%) stenosis left extracranial internal carotid. Patent and antegrade vertebrals bilaterally. Ordering Physician: Pauly Mathews Referring Physician: Mita Zaidi Performed By: Michael Epps RVT 09/07/24 1047 Date Senthil Noel MD CC: VISOR INSTALLER-C Mita Zaidi; TORO Grimm Date Dictated: 09/06/24 0807 Date Transcribed: 09/07/24 1047 Human Resources Services Specialist: Signed Normal [facility] Surgery Visit Reporton 08-30 Surgery Visit Report [facility] [address] [place] [address] OFFICE VISIT Date of Service: 08/30/24 MR#: [id number] Acct: [id number] Name: EDILELISABETHSINDYGregory LEWIS Rep #: [id number] : 1950 Provider: TORO Grimm Age/Sex: 74/M [place] [facility] [place]: Signed Intake Vital Signs 06/07/24 09:33 [...] FU Is patient in pain?: No Allergies Yaysbyo-RDQ-FkK Reductase Inhibitor (Mqdvzoo-Yis-Yxh Reductase Inhibitor) Adverse Reaction (Verified 08/30/24 13:23) leg cramps Medications ???Medication ???Instructions ???Recorded ???Confirmed ???Type uiigzamw-qoy-dqfln acid 0.4 1 ea PO DAILY SUPPLEMENT' [...] health 12/06/22 0 08/30/24 History mg-copper 1 xt-gfbpxq-bbxdte capsule (PreserVision AREDS-2) losartan 100 mg tablet [...] He still has bandage intact over the JEET drain site. He denies any episodes of [...] Stenosis of right carotid artery I65.21 [facility] Medical History Anxiety Generalized psoriasis Cervical arthritis [...] cholecystectomy Histo (more content not included)... Normal [facility] Absolute lymphocyte countOrd ered By: Senthil Sadie on 08-16-2024 Lymphocytes Auto (Unsp spec) [#/Vol] 0.91 10*3/uL 0.83-4.51 [facility] Absolute neutrophil countOrd ered By: [facility] on 08-16-2024 Neutrophils (Bld) [#/Vol] 6.3 10*3/uL 2.0-7.7 [facility] Automated lymphocyte count a s percentage of total leukocytesOrdered By: Senthil Sadie on 08-16-2024 Lymphocytes/100 WBC Auto (Unsp spec) 11.3 % Low 19-41 [facility] Basophil percentageOrdered B y: Senthil Sadie on 08-16-2024 Basophils/100 WBC (Bld) 0.4 % 0-1 [facility] Bedside Glucoseon 08-16-2024 FINGERSTICK GLU 171 mg/dL High 74-106 [facility] Comment on above: Result Comment: NURYS GEMENT OF PATIENT CARE PER NURSING PROTOCOL Performed By: #### L 501.080 #### [facility] [address] [place], [place], [address] FINGERSTICK GLU 110 mg/dL High 74-106 [facility] Comment on above: Result Comment: NURYS GEMENT OF PATIENT CARE PER NURSING PROTOCOL Performed By: #### L 501.080 #### [facility] [address] [place], [address] CBC W/Diff, Automatedon 05- Absolute Lymph 0.91 X10 3/uL Normal 0.83-4.51 [facility] Comment on above: Performed By: #### L 100.0100 #### [facility] [address] [place], [address] Absolute Neut 6.3 X10 3/uL Normal 2.0-7.7 [facility] Comment on above: Performed By: #### L 100.0100 #### [facility] [address] [place], [address] Basophils/100 WBC (Bld) 0.4 % Normal 0-1 [facility] Comment on above: Performed By: #### L 100.0100 #### [facility] [address] [place], [address] Eosinophils/100 WBC (Bld) 0.5 % Normal 0-5 [facility] Comment on above: Performed By: #### L 100.0100 #### [facility] [address] [place], [address] Erythrocyte distribution width (RBC) [Ratio] 13.5 % Normal 11.6-14.6 [facility] Comment on above: Performed By: #### L 100.0100 #### [facility] [address] [place], [address] Hematocrit (Bld) [Volume fraction] 29.1 % Low 40-54 [facility] Comment on above: Performed By: #### L 100.0100 #### [facility] [address] [place], [address] Hemoglobin (Bld) [Mass/Vol] 9.9 g/dL Low 13.0-16.5 [facility] Comment on above: Performed By: #### L 100.0100 #### [facility] [address] [place], [address] IG% 0.200 Normal 0.0-0.9 [facility] Comment on above: Result Comment: IG% - Immature Granulocytes (promyelocytes, myelocytes and metamyelocytes) > 1% indicates that a LEFT SHIFT is Present. Performed By: #### L 100.0100 #### [facility] [address] [place], [address] Lymphocytes/100 WBC (Bld) 11.3 % Low 19-41 [facility] Comment on above: Performed By: #### L 100.0100 #### [facility] [address] [place], [address] MCH (RBC) [Entitic mass] 30.1 pg Normal 27.0-32.0 [facility] Comment on above: Performed By: #### L 100.0100 #### [facility] [address] [place], [address] MCHC (RBC) [Mass/Vol] 34.0 g/dL Normal 32-36 [facility] Comment on above: Performed By: #### L 100.0100 #### [facility] [address] [place], [address] MCV (RBC) [Entitic vol] 88.4 fL Normal 80-94 [facility] Comment on above: Performed By: #### L 100.0100 #### [facility] [address] [place], [address] Monocytes/100 WBC (Bld) 10.0 % Normal 0-10 [facility] Comment on above: Performed By: #### L 100.0100 #### [facility] [address] [place], [address] Neutrophils/100 WBC (Bld) 77.6 % High 47-70 [facility] Comment on above: Performed By: #### L 100.0100 #### [facility] [address] [place], [address] Nucleated RBC (Bld) [#/Vol] 0 10*3/uL Normal 0-5 [facility] Comment on above: Performed By: #### L 100.0100 #### [facility] [address] [place], [address] Platelet mean volume (Bld) [Entitic vol] 10.5 fL Normal 6.2-12.0 [facility] Comment on above: Performed By: #### L 100.0100 #### [facility] [address] [place], [address] Platelets (Bld) [#/Vol] 208 10*3/uL Normal 150-450 [facility] Comment on above: Performed By: #### L 100.0100 #### [facility] [address] [place], [address] RBC (Bld) [#/Vol] 3.29 10*6/uL Low 4.6-6.2 [facility] Comment on above: Performed By: #### L 100.0100 #### [facility] [address] [place], [address] RDW SD 43.8 fl Normal 35.1-43.9 [facility] Comment on above: Performed By: #### L 100.0100 #### [facility] [address] [place], [address] WBC (Bld) [#/Vol] 8.1 10*3/uL Normal 4.4-11.0 [facility] Comment on above: Performed By: #### L 100.0100 #### [facility] [address] [place], [address] Eosinophil percentageOrdered By: Senthil Noel on 08-16-2024 Eosinophils/100 WBC (Bld) 0.5 % 0-5 [facility] Erythrocyte distribution wid th ratioOrdered By: Senthil Noel on 08-16-2024 Erythrocyte distribution width (RBC) [Ratio] 13.5 % 11.6-14.6 [facility] Erythrocyte distribution wid th standard deviationOrdered By: Senthil Noel on 08-16-2024 Erythrocyte distribution width (RBC) [Ratio] 43.8 fl 35.1-43.9 [facility] Glucose measurement at bedsi deOrdered By: Senthil Noel on 08-16-2024 Glucose [Mass/Vol] 171 mg/dL High 74-106 [facility] Comment on above: MANAGEMENT OF PATIEN T CARE PER NURSING PROTOCOL Hematocrit Auto (Bld) [Volum e fraction]Ordered By: Senthil Noel on 08-16-2024 Hematocrit (Bld) [Volume fraction] 29.1 % Low 40-54 [facility] Hemoglobin measurementOrdere d By: Senthil Noel on 08-16-2024 Hemoglobin (Bld) [Mass/Vol] 9.9 g/dL Low 13.0-16.5 [facility] Immature granulocytes/100 WB C Auto (Bld)Ordered By: Senthil Noel on 08-16-2024 Immature granulocytes/100 WBC (Bld) 0.200 % 0.0-0.9 [facility] Comment on above: IG% - Immature Granu locytes (promyelocytes, myelocytes and metamyelocytes) > 1% indicates that a LEFT SHIFT is Present. MCV (mean corpuscular volume ) determinationOrdered By: Senthil Noel on 08-16-2024 MCV (RBC) [Entitic vol] 88.4 fL 80-94 [facility] Mean corpuscular hemoglobin (MCH) determinationOrdered By: Senthil Noel on 08-16-2024 MCH (RBC) [Entitic mass] 30.1 pg 27.0-32.0 [facility] Mean corpuscular hemoglobin concentration (MCHC) determinationOrdered By: Senthil Noel on 08-16-2024 MCHC (RBC) [Mass/Vol] 34.0 g/dL 32-36 [facility] Mean platelet volume determi nationOrdered By: Senthil Noel on 08-16-2024 Platelet mean volume (Bld) [Entitic vol] 10.5 fL 6.2-12.0 [facility] Monocyte percentageOrdered B y: Senthil Noel on 08-16-2024 Monocytes/100 WBC (Bld) 10.0 % 0-10 [facility] Neutrophil percentageOrdered By: Senthil Noel on 08-16-2024 Neutrophils/100 WBC (Bld) 77.6 % High 47-70 [facility] Nucleated red blood cell per centageOrdered By: Senthil Noel on 08-16-2024 Nucleated RBC/100 WBC (Bld) [Ratio] 0 % 0-5 [facility] Platelet countOrdered By: Rey Noel on 08-16-2024 Platelets (Bld) [#/Vol] 208 10*3/uL 150-450 [facility] RBC Auto (Bld) [#/Vol]Ordere d By: Senthil Noel on 08-16-2024 RBC (Bld) [#/Vol] 3.29 10*6/uL Low 4.6-6.2 [facility] White blood cell (WBC) count Ordered By: Senthil Noel on 08-16-2024 WBC (Bld) [#/Vol] 8.1 10*3/uL 4.4-11.0 [facility] ACT Activated Clotting Timeo n 08-15-2024 ACTk CLOT TIME 233 sec High 74-137 [facility] Comment on above: Performed By: #### L 501.080 #### [facility] [address] [place], [address] ACTk CLOT TIME 124 sec Normal 74-137 [facility] Comment on above: Performed By: #### L 100.0100 #### [facility] [address] [facility] [address] ACTk CLOT TIME 245 sec High 74-137 [facility] Comment on above: Performed By: #### L 501.080 #### [facility] [address] [place], [address] Bedside Glucoseon 08-15-2024 FINGERSTICK GLU 159 mg/dL High 74-106 [facility] Comment on above: Result Comment: NURYS MARINO OF PATIENT CARE PER NURSING PROTOCOL Performed By: #### L 501.080 #### [facility] [address] [place] [place], [address] FINGERSTICK GLU 130 mg/dL High 74-106 [facility] Comment on above: Result Comment: NURYS GEMENT OF PATIENT CARE PER NURSING PROTOCOL Performed By: #### L 100.0100 #### [facility] [address] [place], [address] FINGERSTICK GLU 121 mg/dL High 74-106 [facility] Comment on above: Result Comment: NURYS GEMENT OF PATIENT CARE PER NURSING PROTOCOL Performed By: #### L 501.080 #### [facility] [address] [place], [address] MR/POSTOP.ANEon 08-15-2024 MR/[facility]OP.[facility] Medical Records Department [address] [place] [address] Anesthesia Postop Eval I 08/15/24 1324 MR#: [id number] Acct: [id number] Name: SINDY GREENFIELD Rep #: [id number] : 1950 74 From: Leslie Magana PCP: JOCELINE Morejon Status:REG SDC Y Race: C Location: ICU [id number] Anesthesia: Postop Eval I Current Vital Signs [...] 1 completed: Yes 08/15/24 1325 Date Leslie Delgado Signature: Date CC: Signed Normal [facility] [id number] 08-15-2024 MR/POSTOPAN2 [facility] Medical Records Department [address] [place] [address] Anesthesia Postop Eval II 08/15/241407 MR#: [id number] Acct: [id number] Name: SINDY GREENFIELD Rep #: [id number] : 1950 74 From: Ian Damon MD PCP: JOCELINE Morejon Status:REG SDC Y Race: C Location: ICU [id number] Anesthesia Postop Eval I Sum Postop Eval Completion status Anesthesia document: Postop Eval 1 completed: Yes Anesthesia Postop Eval I Summary Anesthesia Postop Eval I Summary: Anesthesia Postop Eval I: Assessment Summary Airway patent Yes 08/15/24 13:25 KITCHEN BATH DESIGNER.GDOTT Spontaneous unlabored Yes 08/15/24 13:25 KITCHEN BATH DESIGNER.GDOTT respirations Mental status Awake,Calm 08/15/24 13:25 KITCHEN BATH DESIGNER.GDOTT nausea No 08/15/24 13:25 KITCHEN BATH DESIGNER.GDOTT Vomiting No 08/15/24 13:25 KITCHEN BATH DESIGNER.GDOTT Anesthesia Postop Eval I: Fluid Summary Crystalloid volume administer 1,500 08/15/24 13:25 KITCHEN BATH DESIGNER.GDOTT (ml) Colloids volume administered ( ml) Blood Product volume administered (ml) Total IV fluid infused 1,500 08/15/24 13:25 KITCHEN BATH DESIGNER.GDOTT Anesthesia Postop Eval I: Summary Notes Anesthesia Complication No 08/15/24 13:25 KITCHEN BATH DESIGNER.GDOTT Anesthesia Complication Comment: Post-operative progress note Anesthesia: Postop Eval II Evaluation Mental status: Awake and Calm Pain Level: 1 nausea: No Vomiting: No Progress Note Post-operative progress note: Patient given 10 mg Hydralazine prior to going to the ICU. Doing well Complications Anesthesia Complication: No 08/15/241407 Date Ian Damon MD Cosigner Signature: Date CC: Signed Normal [facility] Operative Reporton 5 Operative Report [facility] Medical Records Department [address] [place] [address] Operative Report 08/15/24 1317 MR#: [id number] Acct: [id number] Name: SINDY GREENFIELD Rep #: [id number] : 1950 74 From: Senthil Noel MD PCP: JOCELINE Morejon Status:ADM IN Location: ICU [id number] Operative Report (Standard) Operative Information Date of Procedure: 08/15/24 Pre-Operative Diagnosis: right carotid stenosis Post-Operative Diagnosis: same Surgery/Procedure Performed: right carotid stent, trans carotid body joiner: Yes Senior Analyst Programmer: Jodi Candelario Tasks completed by occupational therapist assistant: Opening, Closing, Opening closing, Hemostasis: Electrocautery and [...] site the patient was taken to the Pulp Refiner Operator where he was placed under general anesthesia. [...] the micropuncture sheath exchanged for the 8 Burmese venous return sheath. Next the carotid artery [...] the incision inspected for hemostasis. A 19 Burmese channel JEET was then placed via separate stab incision and the incision closed with 3-0 Vicryl, 4 Monocryl and Dermabond for skin. At the conclusion of case the patie (more content not included)... Normal [facility] Anion gap in Serum or Plasma Ordered By: Senthil Noel on 08-02-2024 Anion gap [Moles/Vol] 11 mmol/L 5- [facility] BUN/creatinine ratioOrdered By: Senthil Noel on 08-02-2024 Urea nitrogen/Creatinine [Mass ratio] 20.9 mg/mg High - [facility] Basic Metabolic Profile (BMP )on 08-02-2024 BUN/CRE 20.9 RATIO High 01-22 [facility] Comment on above: Performed By: #### L 100.0100 #### [facility] [address] [place], [address] Calcium [Mass/Vol] 9.2 mg/dL Normal 7.6-11.0 [facility] Comment on above: Performed By: #### L 100.0100 #### [facility] [address] [place], [address] Chloride [Moles/Vol] 106 mmol/L Normal 98-108 [facility] Comment on above: Performed By: #### L 100.0100 #### [facility] [address] [place], [address] CO2 [Moles/Vol] 23.3 mmol/L Normal 21.0-32.0 [facility] Comment on above: Performed By: #### L 100.0100 #### [facility] [address] [place], [address] Creatinine [Mass/Vol] 1.50 mg/dL High 0.70-1.20 [facility] Comment on above: Performed By: #### L 100.0100 #### [facility] [address] [place], [address] GAP 11 Normal - [facility] Comment on above: Performed By: #### L 100.0100 #### [facility] [address] [place], [address] GFR/1.73 sq M.predicted among non-blacks MDRD (S/P/Bld) [Vol rate/Area] 48 mL/min/{1.73_m2} Low >60 [facility] Comment on above: Result Comment: mL/m in/1.73m2 CKD-EPI Creatinine Equation (2020) Performed By: #### L 100.0100 #### [facility] [address] [place], [address] Glucose [Mass/Vol] 160 mg/dL High 70-99 [facility] Comment on above: Performed By: #### L 100.0100 #### [facility] [address] [place], [address] Potassium [Moles/Vol] 4.4 mmol/L Normal 3.3-5.1 [facility] Comment on above: Performed By: #### L 100.0100 #### [facility] [address] [place], [address] Sodium [Moles/Vol] 140 mmol/L Normal 133-145 [facility] Comment on above: Performed By: #### L 100.0100 #### [facility] [address] [place], [address] Urea nitrogen [Mass/Vol] 31 mg/dL High 4-19 [facility] Comment on above: Performed By: #### L 100.0100 #### [facility] [address] [place], [address] Carbon dioxide, total [Moles /volume] in Central venous bloodOrdered By: Senthil Noel on 08-02-2024 CO2 [Moles/Vol] 23.3 mmol/L 21.0-32.0 [facility] Chloride assayOrdered By: Rey Noel on 08-02-2024 Chloride [Moles/Vol] 106 mmol/L 98-108 [facility] Glomerular filtration rate ( GFR) estimation/1.73 sq m using serum, plasma, or whole bOrdered By: Senthil Noel on 08-02-2024 GFR/1.73 sq M.predicted among non-blacks MDRD (S/P/Bld) [Vol rate/Area] 48 mL/min/{1.73_m2} Low >60 [facility] Comment on above: mL/min/1.73m2 CKD-EP I Creatinine Equation (2020) Potassium measurement (mass/ volume)Ordered By: Senthil Noel on 08-02-2024 Potassium (Unsp spec) [Mass/Vol] 4.4 mmol/L 3.3-5.1 [facility] Serum creatinine measurement (mass/volume)Ordered By: [facility]-2024 Creatinine [Mass/Vol] 1.50 mg/dL High 0.70-1.20 [facility] Serum glucose measurement (m ass/volume)Ordered By: Senthil Noel on 08-02-2024 Glucose [Mass/Vol] 160 mg/dL High 70-99 [facility] Serum or plasma calcium jennifer urement (mass/volume)Ordered By: Senthil Sadie on 08-02-2024 Calcium [Mass/Vol] 9.2 mg/dL 7.6-11.0 [facility] Serum or plasma urea nitroge n measurement (mass/volume)Ordered By: Senthil Noel on 08-02-2024 Urea nitrogen [Mass/Vol] 31 mg/dL High 4-19 [facility] Sodium levelOrdered By: Senthil Noel on 08-02-2024 Sodium [Moles/Vol] 140 mmol/L 133-145 [facility] MR/PAT.ANEon 08-01-2024 MR/PAT.KIP [facility] Medical Records Department [address] [place] [address] PAT - Anesthesia 08/01/24 180 MR#: [id number] Acct: [id number] Name: SINDY GREENFIELD Rep #: [id number] : 1950 74 From: Won Webster MD PCP: JOCELINE Morejon Status:PRE [facility] Y Race: C Location: [facility] Pre-Assessment Diagnosis/Proposed Procedure Planned Operative Procedure(s): RIGHT CAROTID STENT IN SOCIAL WELFARE RESEARCH WORKER WITH ANESTHESIA Anesthesia History 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 Hx Hospitalization No 08/01/24 09:26 Any Problems [...] take am of surgery PONV PONV - 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: PONV - 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 Female No 08/01/24 09:26 HX of Motion [...] 06/07/24 09:33 Respiratory Assessment Respiratory Assessment - 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: Respiratory Tract Infection Hx - 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 Hx Respiratory Tract Infection No 08/01/24 09:26 STOP Sleep Apnea STOP Sleep Apnea - 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: STOP Sleep Apnea - 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 Hx Hypertension Yes: CONTROLLED WITH MED 08/01/24 [...] Tobacco Use History 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: 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 Tobacco Use Smoking Status Never smoker 08/01/24 09:26 Hx Tobacco Use No 08/01/24 09:26 Years Smoking Packs Smoked per Day Smoking Cessation Date was within the last 15 years Hx Smoking Cessation Date Hx Smoking Cessation Counseling Hematologic Medial History Hematologic Hx - 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: Hematologic 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 Hx of Blood Transfusion No 08/01/24 09:26 [...] confused, unrespo /Reproduction History /Reproductive History - 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: /Reproductive Hx- 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 Hx Now No 08/01/24 09:26 Gestational Age [...] Medications ???Medication ???Instructions ???Recorded ???Last Taken ???Type kmkqncux-vhi-kqmoe acid 0.4 1 ea PO DAILY SUPPLEMENT' 01/08/13 05/18/23 History mg-lycopene 300 mcg-lutein 250 mcg tablet (Centrum Silver) umair (more content not included)... Normal [facility] MR/BMSAbel 07-13-2024 MR/BMS.BVS [facility] [address] [place] [address] OFFICE VISIT Date of Service: 07/13/24 MR#: [id number] Acct: [id number] Name: SINDY GREENFIELD Rep #: [id number] : 1950 Provider: Dr. Senthil Noel MD Age/Sex: 74/M [place] [facility] [place] Status: Signed Intake Vital Signs 06/07/24 09:33 07/13/24 14:57 Height 5 ft 9 in Weight: 189 lb BP 158/79 H Blood Pressure Location Lt brachial Position Sitting Respiration 16 Pulse 80 Pulse Source Monitor Temp 97.8 F Temp Source Temporal Pulse Oximetry (%) 97 Oxygen Delivery Method room air Intake Visit Reasons: Discuss CTA Results Is patient in pain?: No Allergies Htbesak-ZIY-ZdY Reductase Inhibitor (Jzgwumm-Gri-Yre Reductase Inhibitor) Adverse Reaction (Verified 07/13/24 14:59) leg cramps Medications ???Medication ???Instructions ???Recorded ???Confirmed ???Type twfoacct-vgl-urqdk acid 0.4 1 ea PO DAILY SUPPLEMENT' [...] health 12/06/22 0 07/13/24 History mg-copper 1 lt-okhmjk-xluylt capsule (PreserVision AREDS-2) losartan 100 mg tablet [...] back problem (more content not included)... Normal [facility] CTA Head AND Neck W/ Contras ton 07-06-2024 CTA Head AND Neck W/ Contrast [facility] Imaging Services [address] [place], [place] [address] CTA Head AND Neck W/ Contrast MR#: [id number] Acct: [id number] Name: SINDY GREENFIELD Rep #: [id number] : 1950 M 74 From: Bharath pastrana MD PCP: JOCELINE Morejon Status: REG CLI Study: CTA Head AND Neck W/ Contrast Date of Exam: Exam# [id number] Ordering Dr: Pauly Mathews PROCEDURE: CTA HEAD [...] BASE: Unremarkable INTRACRANIAL VASCULATURE Cerebral Arteries: Unremarkable [place] of [place]: Unremarkable Venous Drainage: Unremarkable VERTEBROBASILAR SYSTEM: Unremarkable CT/CTA Head AND Neck W/ Contrast IMPRESSION: High-grade stenosis at the origin of the right internal carotid artery. 50-60% narrowing at the origin of the left internal carotid artery. Reading Location: [place] [address] CC: JOCELINE Zaidi; TORO Grimm Human Resources Services Specialist: Signed Normal [facility] MR/BMS.BVSon 06-22-2024 MR/BMS.BVS [facility] [address] [place] [address] OFFICE VISIT Date of Service: 06/23/24 MR#: [id number] Acct: [id number] Name: SINDY GREENFIELD Rep #: [id number] : 1950 Provider: TORO Grimm Age/Sex: 74/M [place] [facility] [place] Status: Signed Intake Vital Signs 06/07/24 09:33 [...] care Is patient in pain?: No Allergies Qkntsdu-PVO-QiT Reductase Inhibitor (Szlsccf-Soj-Asq Reductase Inhibitor) Adverse Reaction (Verified 06/23/24 09:37) leg cramps Medications ???Medication ???Instructions ???Recorded ???Confirmed ???Type qkfvnwam-caq-qhiyo acid 0.4 1 ea PO DAILY SUPPLEMENT' [...] health 12/06/22 0 06/23/24 History mg-copper 1 gw-frvncl-zaayvd capsule (PreserVision AREDS-2) losartan 100 mg tablet 100 mg PO DAILY blood pressure 09/2606/23/24 History aspirin 81 mg tablet,delayed 81 mg PO DAILY heart health 90 0 04/13/23 06/23/24 Rx [...] you [facility] in the past year?: [facility] Open wound Thyroid disease Kidney [...] R carotid stenosis as referred from the [facility]. Carotid duplex 06/08/24 demonstrated severe >70% [...] report lighthe (more content not included)... Normal [facility] Hepatitis A AB, Totalon 06-03 HEPATITIS A,TOT Negative Normal Negative [facility] Comment on above: Result Comment: Comm ent: The HAV total antibody assay detects both IgG and IgM but does not differentiate between them. A negative result suggests susceptibility to infection. A positive result could be due to vaccination, previously resolved infection or active infection. Testing for HAV IgM should be performed if active HAV infection is suspected. [employer] offers profiles that will automatically reflex positive HAV total antibody results to IgM (e.g., panel #[id number] HAV Antibody w/ Rfx). Performed at: [address] [id number] Steam Turbine Assembler: Royal White PhD, Phone: [phone] Performed By: #### L 501.080 #### [facility] [address] [place], [address] MRSA/SAID NASAL SCREENon MRSA+SAID SCRN Reason for Exam: Ranier brynn MRSA MRSA Negative S. AUREUS S. aureus PositiveA Normal [facility] Comment on above: Performed By: #### L 501.080 #### [facility] [address] [place], [address] CBC W/Diff, Automatedon 06-03 Absolute Lymph 1.21 X10 3/uL Normal 0.83-4.51 [facility] Comment on above: Performed By: #### L 501.080 #### [facility] [address] [place], [address] Absolute Neut 3.7 X10 3/uL Normal 2.0-7.7 [facility] Comment on above: Performed By: #### L 501.080 #### [facility] [address] [place], [address] Basophils/100 WBC (Bld) 1.5 % High 0-1 [facility] Comment on above: Performed By: #### L 501.080 #### [facility] [address] [place], [address] Eosinophils/100 WBC (Bld) 6.4 % High 0-5 [facility] Comment on above: Performed By: #### L 501.080 #### [facility] [address] [place], [address] Erythrocyte distribution width (RBC) [Ratio] 13.3 % Normal 11.6-14.6 [facility] Comment on above: Performed By: #### L 501.080 #### [facility] [address] [place], [address] Hematocrit (Bld) [Volume fraction] 36.1 % Low 40-54 [facility] Comment on above: Performed By: #### L 501.080 #### [facility] [address] [place], [address] Hemoglobin (Bld) [Mass/Vol] 12.1 g/dL Low 13.0-16.5 [facility] Comment on above: Performed By: #### L 501.080 #### [facility] [address] [place], [address] IG% 0.500 Normal 0.0-0.9 [facility] Comment on above: Result Comment: IG% - Immature Granulocytes (promyelocytes, myelocytes and metamyelocytes) > 1% indicates that a LEFT SHIFT is Present. Performed By: #### L 501.080 #### [facility] [address] [place], [address] Lymphocytes/100 WBC (Bld) 19.7 % Normal 19-41 [facility] Comment on above: Performed By: #### L 501.080 #### [facility] [address] [place], [address] MCH (RBC) [Entitic mass] 29.7 pg Normal 27.0-32.0 [facility] Comment on above: Performed By: #### L 501.080 #### [facility] [address] [place], [address] MCHC (RBC) [Mass/Vol] 33.5 g/dL Normal 32-36 [facility] Comment on above: Performed By: #### L 501.080 #### [facility] [address] [place], [address] MCV (RBC) [Entitic vol] 88.5 fL Normal 80-94 [facility] Comment on above: Performed By: #### L 501.080 #### [facility] [address] [place], [address] Monocytes/100 WBC (Bld) 11.1 % High 0-10 [facility] Comment on above: Performed By: #### L 501.080 #### [facility] [address] [place], [address] Neutrophils/100 WBC (Bld) 60.8 % Normal 47-70 [facility] Comment on above: Performed By: #### L 501.080 #### [facility] [address] [place], [address] Nucleated RBC (Bld) [#/Vol] 0 10*3/uL Normal 0-5 [facility] Comment on above: Performed By: #### L 501.080 #### [facility] [address] [place], [address] Platelet mean volume (Bld) [Entitic vol] 10.7 fL Normal 6.2-12.0 [facility] Comment on above: Performed By: #### L 501.080 #### [facility] [address] [place], [address] Platelets (Bld) [#/Vol] 247 10*3/uL Normal 150-450 [facility] Comment on above: Performed By: #### L 501.080 #### [facility] [address] [place], [address] RBC (Bld) [#/Vol] 4.08 10*6/uL Low 4.6-6.2 [facility] Comment on above: Performed By: #### L 501.080 #### [facility] [address] [place], [address] RDW SD 43.3 fl Normal 35.1-43.9 [facility] Comment on above: Performed By: #### L 501.080 #### [facility] [address] [place], [address] WBC (Bld) [#/Vol] 6.1 10*3/uL Normal 4.4-11.0 [facility] Comment on above: Performed By: #### L 501.080 #### [facility] [address] [place], [address] Hemoglobin A1con 06-12-2024 HbA1c (Bld) [Mass fraction] 6.3 % Normal <=5.6 [facility] Comment on above: Performed By: #### L 501.080 #### [facility] [address] [place], [address] L3890.6006on 06-12-2024 HIV Non-Reactive Normal Nonreactive [facility] Comment on above: Result Comment: Non- Reactive Reactive Repeatedly reactive samples must be confirmed according to CDC recommended confirmatory algorithms. The subresults for either HIVAG or AHIV can be used as an aid in the selection of the confirmation algorithm for reactive samples. Send out specimens with Reactive results to [facility] for confirmation. Order the HIV antibody detection and differentiation: #[id number] Performed By: #### L 501.080 #### [facility] [address] [place], [address] L3890.6202on 06-12-2024 HEP B Surf Ab Non-Reactive Normal [facility] Comment on above: Result Comment: <8.5 mIU/mL: Non-Reactive 8.5<= x <11.5 mIU/mL: Indeterminate >=11.5 mIU/mL: Reactive Non Reactive: Inconsistent with immunity less than <10 mIU/mL Reactive: Consistent with immunity greater than or equal to 10 mIU/mL Performed By: #### L 501.080 #### [facility] [address] [place], [address] L3890.6301on 06-12-2024 Hepatitis C Ab Non-Reactive Normal Nonreactive [facility] Comment on above: Result Comment: Reac tive: Presumptive evidence of antibodies to HCV. Follow CDC recommendations for supplemental testing. Non-Reactive: Antibodies to HCV were not detected; does not exclude the possibility of exposure to HCV Reactive Results are presumptive evidence of antibodies to HCV. Follow CDC recommendations for supplemental testing. Order confirmation testing: HCV Quant by PCR testing - HCVPCR #[id number] Non Reactive: < 0.8 Equivocal: >/= 0.8 to < 1.0 Reactive: >/= 1.0 The [facility] requires that a reactive/equivocal HCV antibody result be sent out for confirmation. HCV Quant by PCR testing. Performed By: #### L 501.080 #### [facility] [address] [place], [address] MR/PATTIGRE 06-12-2024 MR/PAT.KIP [facility] Medical Records Department [address] [place] [address] PAT - Anesthesia 06/12/24 1211 MR#: [id number] Acct: [id number] Name: SINDY GREENFIELD Rep #: [id number] : 1950 74 From: Yunior Holman MD PCP: JOCELINE Morejon Status:PRE [facility] Y Race: C Location: [facility] Pre-Assessment Diagnosis/Proposed Procedure Planned Operative Procedure(s): Anterior Cervical Fusion C5-6 and C6-7, C3 and C4 anterior osteophyte removal Anesthesia History 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 Hx Hospitalization No 06/12/24 11:05 Any Problems [...] take am of surgery PONV PONV - 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: 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 - 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 Female No 06/12/24 11:05 HX of Motion [...] 02/04/24 14:47 Respiratory Assessment Respiratory Assessment - 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: Respiratory Tract Infection Hx - 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 Hx Respiratory Tract Infection No 06/12/24 11:05 STOP Sleep Apnea STOP Sleep Apnea - 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: STOP Sleep Apnea - 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 Hx Hypertension Yes: CONTROLLED ON MED 06/12/24 [...] Tobacco Use History 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: 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 Tobacco Use Smoking Status Never smoker 06/12/24 11:05 Hx Tobacco Use No 06/12/24 11:05 Years Smoking Packs Smoked per Day Smoking Cessation Date was within the last 15 years Hx Smoking Cessation Date Hx Smoking Cessation Counseling Hematologic Medial History Hematologic Hx - 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: 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 Normal [facility] Magnesiumon 06-12-2024 Magnesium [Mass/Vol] 2.2 mg/dL Normal 1.5-2.2 [facility] Comment on above: Performed By: #### L 501.5200 #### [facility] [address] [place], [place], [address] Thyroid Stim Hormone (TSH)on 06-12-2024 TSH 1.720 uIU/mL Normal 0.300-4.200 [facility] Comment on above: Performed By: #### L 501.080 #### [facility] [address] [place], [address] Type AND Screen - PAT ONLYon 06-12-2024 Ab SCREEN GEL Negative Normal [facility] Comment on above: Order Comment: Surge ry Date: 06/26/24Reason for Laboratory Test PRE-[id number] Cervical Fusion C5-6 and C6-7, C3 and C4 anter Performed By: #### L 501.080 #### [facility] [address] [place], [address] Carotid Duplex Ultrasoundon 06-08-2024 Carotid Duplex Ultrasound [facility] Cardi[facility] Services [address] [place] [address] Carotid Duplex Ultrasound 06/08/24 1309 MR#: [id number] Acct: [id number] Name: SINDY GREENFIELD Rep #: [id number] : 1950 74 From: Senthil Noel MD Attending Dr: Jose Manuel Rocha, VISOR INSTALLER-C Status: REG CLI Ordering Dr: Jose Manuel Rocha NP VISOR INSTALLER-C Date: 06/08/24 Location: [facility] Sex: M C [...] the left vertebral artery. Procedure Carotid Duplex 27800. This is a Carotid Duplex examination using B-mode, color flow and specral Doppler. The exam was diagnostic. Exam performed in department. VL/Carotid Duplex Ultrasound Interpretation Summary Severe (>70%) stenosis right extracranial internal carotid. Mild (<50%) stenosis left extracranial internal carotid. Patent and antegrade vertebrals bilaterally. Ordering Physician: Jose Manuel Rocha Referring Physician: Mita Zaidi Performed By: Michael Epps RVT 06/08/24 1756 Date Senthil Noel MD CC: JOCELINE Rocha; JOCELINE Zaidi Date Dictated: 06/08/24 1309 Date Transcribed: 06/08/241755 Human Resources Services Specialist: Signed Normal [facility] Duplex ultrasound of carotid artery reportOrdered By: Senthil Noel on 06-08-2024 Study report [facility] Cardi[facility] [address] [place] [address] Carotid Duplex Ultrasound 06/08/24 1309 MR#: [id number] Acct: [id number] Name: JEAN PIERRESINDYGregory LEWIS Rep #:[id number] : 1950 74 From: Senthil Hernández Attending Dr: JOCELINE Schmidt Sta tus: REG CLI Ordering Dr: Jose Manuel Rocha NP Date: 06/08/24 Location: [facility] Sex: M C [...] the left vertebral artery. Procedure Carotid Duplex 53524. This is a Carotid Duplex examination using [...] 06/08/241755 Date _ Senthil Noel MD CC: VISOR INSTALLER-C Jose Manuel Rocha; VISOR INSTALLER-C Mita Zaidi ~ Date Dictated: 06/08/24 1309 Date Transcribed: 06/08/241755 Human Resources Services Specialist: Signed [facility] Work Phone: 12 Lead EKG performed by [facility] [place] 06-07-2024 12 Lead EKG performed by [address] [address] 12 Lead EKG performed by [facility] [place] [place] 06/07/24 0931 MR#: [id number] Acct: [id number] Name: SINDY GREENFIELD Rep #: [id number] : 1950 74 From: Jose Manuel Rocha NP VISOR INSTALLER-C Attending Dr: JOCELINE Schmidt Status: DEP AMB Ordering Dr: Jose Manuel Rocha NP VISOR INSTALLER-C Date: 06/07/24 [place] [facility] [place] Sex: M C Admitted: [facility]12 Lead E[place] performed [place] [facility] ECG Report Interpretation --Sinus Rhythm -First degree A-V block Sarah = 228-Inferior infarct -age undetermined. ABNORMAL No significant changes from ECG 06/02/2023Electronically signed on 06/07/2024 at 11:[address] Markell Daily Software Version 8610 06/07/24 1128 Date Jose Manuel CAR CC: JOCELINE Zaidi Date Dictated: 06/07/24930 Date Transcribed: 06/07/24930 Human Resources Services Specialist: NICHO Signed Normal [facility] Cardiology Visit Reporton Cardiology Visit Report [facility] 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 Normal [facility] Microalb:Creat Ratio,Random URon 05-04-2024 Creatinine [Mass/Vol] 77.00 mg/dL Normal NO RAN GE EST. [facility] Comment on above: Performed By: #### L 502.0250 #### [facility] [address] [place], [place], [address] MALB:CRE 41.7 mg/g CRE High <30 mg/g CRE [facility] Comment on above: Performed By: #### L 502.0250 #### [facility] [address] [place], [place], [address] MICROALBUMIN,UR 32.1 mg/L Normal NO RANGE EST. [facility] Comment on above: Performed By: #### L 502.0250 #### [facility] [address] [place], [place], [address] Random urine microalbumin me asurementOrdered By: Siria Velazquez on 05-04-2024 Urine Random Microalbumin 32.1 mg/L NO RANGE EST. [facility] Urine albumin/creatinine rat io for detection of microalbuminuriaOrdered By: Siria Velazquez on 05-04-2024 Urine Microalbumin/Creatinine Ratio 41.7 mg/g CRE High <30 [facility] Urine creatinine measurement (mass/volume)Ordered By: Siria Velazquez on 05-04-2024 Creatinine (U) [Mass/Vol] 77.00 mg/dL NO RANGE EST. [facility] Orthopedic Visit Reporton Orthopedic Visit Report [facility] [address] [place] [address] OFFICE VISIT Date of Service: 04/20/24 MR#: [id number] Acct: [id number] Name: SINDY GREENFIELD Rep #: [id number] : 1950 Provider: Dr. 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 Yousif Bettencourt MD 04/20/24 8792. Part of today???s visit was documented by [...] was taken out a few years ago. Executive Producer [employer] is Dr. Markell Humphrey. Still having swallowing [...] anterior o (more content not included)... Normal [facility] Urine Cultureon 04-19-2024 URC Escherichia coli [place] Count 11,000-25,000 Escherichia coli: REACTION Ampicillin Islt [...] TMP SMX Islt JALEN <=20 S Normal [facility] Comment on above: Performed By: #### M 100.8923 ####[facility] [address] [place], [address] Absolute lymphocyte countOrd ered By: Mita Zaidi on 04-18-2024 Lymphocytes Auto (Unsp spec) [#/Vol] 1.26 10*3/uL 0.83-4.51 [facility] Absolute neutrophil countOrd ered By: Mita Zaidi on 04-18-2024 Neutrophils (Bld) [#/Vol] 3.4 10*3/uL 2.0-7.7 [facility] Albumin to globulin ratioOrd ered By: Mitasravan Zaidi on 04-18-2024 Albumin/Globulin [Mass ratio] 1.1 {ratio} 0.9-2.4 [facility] Automated lymphocyte count a s percentage of total leukocytesOrdered By: Mita Dejuan on 04-18-2024 Lymphocytes/100 WBC Auto (Unsp spec) 22.2 % 19-41 [facility] Basophil percentageOrdered B y: Mita Zaidi on 04-18-2024 Basophils/100 WBC (Bld) 1.2 % High 0-1 [facility] Bilirubin, totalOrdered By: Mita Zaidi on 04-18-2024 Bilirubin [Mass/Vol] 0.50 mg/dL 0.20-1.00 [facility] Comment on above: For patients on eltr ombopag therapy, use of Dimension Crystal TBIL is not recommended. Blood urea nitrogen (BUN)/cr eatinine ratioOrdered By: Mita Zaidi on 04-18-2024 Urea nitrogen/Creatinine [Mass ratio] 19.9 mg/mg 10-20 [facility] CBC W/Diff, Automatedon 04-05 Absolute Lymph 1.26 X10 3/uL Normal 0.83-4.51 [facility] Comment on above: Performed By: #### L 501.080 #### [facility] [address] [place], [address] Absolute Neut 3.4 X10 3/uL Normal 2.0-7.7 [facility] Comment on above: Performed By: #### L 501.080 #### [facility] [address] [place], [address] Basophils/100 WBC (Bld) 1.2 % High 0-1 [facility] Comment on above: Performed By: #### L 501.080 #### [facility] [address] [place], [address] Eosinophils/100 WBC (Bld) 7.0 % High 0-5 [facility] Comment on above: Performed By: #### L 501.080 #### [facility] [address] [place], [address] Erythrocyte distribution width (RBC) [Ratio] 13.7 % Normal 11.6-14.6 [facility] Comment on above: Performed By: #### L 501.080 #### [facility] [address] [place], [address] Hematocrit (Bld) [Volume fraction] 35.9 % Low 40-54 [facility] Comment on above: Performed By: #### L 501.080 #### [facility] [address] [place], [address] Hemoglobin (Bld) [Mass/Vol] 11.8 g/dL Low 13.0-16.5 [facility] Comment on above: Performed By: #### L 501.080 #### [facility] [address] [place], [address] IG% 0.400 Normal 0.0-0.9 [facility] Comment on above: Result Comment: IG% - Immature Granulocytes (promyelocytes, myelocytes and metamyelocytes) > 1% indicates that a LEFT SHIFT is Present. Performed By: #### L 501.080 #### [facility] [address] [place], [address] Lymphocytes/100 WBC (Bld) 22.2 % Normal 19-41 [facility] Comment on above: Performed By: #### L 501.080 #### [facility] [address] [place], [address] MCH (RBC) [Entitic mass] 29.5 pg Normal 27.0-32.0 [facility] Comment on above: Performed By: #### L [id number] #### [facility] [address] [place], [address] MCHC (RBC) [Mass/Vol] 32.9 g/dL Normal 32-36 [facility] Comment on above: Performed By: #### L [id number] #### [facility] [address] [place], [address] MCV (RBC) [Entitic vol] 89.8 fL Normal 80-94 [facility] Comment on above: Performed By: #### L 501.080 #### [facility] [address] [place], [address] Monocytes/100 WBC (Bld) 10.2 % High 0-10 [facility] Comment on above: Performed By: #### L 501.080 #### [facility] [address] [place], [address] Neutrophils/100 WBC (Bld) 59.0 % Normal 47-70 [facility] Comment on above: Performed By: #### L 501.080 #### [facility] [address] [place], [address] Nucleated RBC (Bld) [#/Vol] 0 10*3/uL Normal 0-5 [facility] Comment on above: Performed By: #### L 501.080 #### [facility] [address] [place], [address] Platelet mean volume (Bld) [Entitic vol] 10.6 fL Normal 6.2-12.0 [facility] Comment on above: Performed By: #### L 501.080 #### [facility] [address] [place], [address] Platelets (Bld) [#/Vol] 245 10*3/uL Normal 150-450 [facility] Comment on above: Performed By: #### L 501.080 #### [facility] [address] [place], [address] RBC (Bld) [#/Vol] 4.00 10*6/uL Low 4.6-6.2 [facility] Comment on above: Performed By: #### L 501.080 #### [facility] [address] [place], [address] RDW SD 45.1 fl High 35.1-43.9 [facility] Comment on above: Performed By: #### L 501.080 #### [facility] [address] [place], [address] WBC (Bld) [#/Vol] 5.7 10*3/uL Normal 4.4-11.0 [facility] Comment on above: Performed By: #### L 501.080 #### [facility] [address] [place], [address] Carbon dioxide measurementOr dered By: Mita Zaidi on 04-18-2024 CO2 [Moles/Vol] 25.0 mmol/L 21.0-32.0 [facility] Chloride measurementOrdered By: Mita Zaidi on 04-18-2024 Chloride [Moles/Vol] 111 mmol/L High 98-107 [facility] Comprehensive Metabolic Prof ilon 04-18-2024 Albumin [Mass/Vol] 3.9 g/dL Normal 3.2-5.0 [facility] Comment on above: Performed By: #### L 501.080 #### [facility] [address] [place], [address] Albumin/Globulin [Mass ratio] 1.1 {ratio} Normal 0.9-2.4 [facility] Comment on above: Performed By: #### L 501.080 #### [facility] [address] [place], [address] ALK P 52 U/L Normal 45-117 [facility] Comment on above: Performed By: #### L 501.080 #### [facility] [address] [place] [place], [address] ALT [Catalytic activity/Vol] 18 U/L Normal 16-61 [facility] Comment on above: Performed By: #### L 501.080 #### [facility] [address] [place], [address] AST [Catalytic activity/Vol] 12 U/L Low 15-37 [facility] Comment on above: Performed By: #### L 501.080 #### [facility] [address] [place], [address] Bilirubin [Mass/Vol] 0.50 mg/dL Normal 0.20-1.00 [facility] Comment on above: Result Comment: For patients on eltrombopag therapy, use of Dimension Crystal TBIL is not recommended. Performed By: #### L 501.080 #### [facility] [address] [place] [place], [address] BUN/CRE 19.9 RATIO Normal 10-20 [facility] Comment on above: Performed By: #### L 501.080 #### [facility] [address] [place], [address] CA,Total 8.9 mg/dL Normal 8.5-10.1 [facility] Comment on above: Performed By: #### L 501.080 #### [facility] [address] [place], [address] Chloride [Moles/Vol] 111 mmol/L High 98-107 [facility] Comment on above: Performed By: #### L 501.080 #### [facility] [address] [place], [address] CO2 [Moles/Vol] 25.0 mmol/L Normal 21.0-32.0 [facility] Comment on above: Performed By: #### L 501.080 #### [facility] [address] [place], [address] Creatinine [Mass/Vol] 1.46 mg/dL High 0.70-1.30 [facility] Comment on above: Result Comment: The validity of the calculated GFR GFRAA in patients over 70 years has not been determined. Clinical correlation is essential. Performed By: #### L 501.080 #### [facility] [address] [place], [address] EST GFR - AA 61 mL/min Normal >60 [facility] Comment on above: Result Comment: Afri can Malagasy GFR Calc Performed By: #### L 501.080 #### [facility] [address] [place], [address] GAP 5 Normal 5-15 [facility] Comment on above: Performed By: #### L 501.080 #### [facility] [address] [place], [address] GFR/1.73 sq M.predicted among non-blacks MDRD (S/P/Bld) [Vol rate/Area] 50 mL/min/{1.73_m2} Low >60 [facility] Comment on above: Result Comment: Non- GFR Calc Performed By: #### L 501.080 #### [facility] [address] [place], [address] Globulin (S) [Mass/Vol] 3.5 g/dL Normal 2.2-4.2 [facility] Comment on above: Performed By: #### L 501.080 #### [facility] [address] [place], [address] Glucose [Mass/Vol] 113 mg/dL High 74-106 [facility] Comment on above: Result Comment: Fast ing Glucose result from 100 to 125 mg/dL suggests IMPAIRED HOMEOSTASIS per A.D.A. criteria. Performed By: #### L 501.080 #### [facility] [address] [place], [address] Potassium [Moles/Vol] 4.1 mmol/L Normal 3.5-5.1 [facility] Comment on above: Performed By: #### L 501.080 #### [facility] [address] [place], [address] Sodium [Moles/Vol] 141 mmol/L Normal 136-145 [facility] Comment on above: Performed By: #### L 501.080 #### [facility] [address] [place], [address] T PROT 7.4 g/dL Normal 6.4-8.2 [facility] Comment on above: Performed By: #### L 501.080 #### [facility] [address] [place], [address] Urea nitrogen [Mass/Vol] 29 mg/dL High 7-18 [facility] Comment on above: Performed By: #### L 501.080 #### [facility] [address] [place], [address] Eosinophil percentageOrdered By: Mita Zaidi on 04-18-2024 Eosinophils/100 WBC (Bld) 7.0 % High 0-5 [facility] Erythrocyte distribution wid th ratioOrdered By: Mita Zaidi on 04-18-2024 Erythrocyte distribution width (RBC) [Ratio] 13.7 % 11.6-14.6 [facility] Erythrocyte distribution wid th standard deviationOrdered By: Mita Zaidi on 04-18-2024 Erythrocyte distribution width (RBC) [Entitic vol] 45.1 fL High 35.1-43.9 [facility] Erythrocyte distribution width (RBC) [Ratio] 45.1 fl High 35.1-43.9 [facility] Estimated glomerular filtrat ion rate (GFR) AmericanOrdered By: Mita Zaidi on 04-18-2024 Estimated GFR (MDRD) Amer 61 mL/min >60 [facility] Comment on above: GFR Calc Glomerular filtration rate ( GFR) estimationOrdered By: Mita Zaidi on 04-18-2024 Estimated GFR (MDRD) Non-Af Amer 50 mL/min Low >60 [facility] Comment on above: Non- GFR Calc GFR/1.73 sq M.predicted among non-blacks MDRD (S/P/Bld) [Vol rate/Area] 50 mL/min/{1.73_m2} Low >60 [facility] Comment on above: Non- GFR Calc Glucose measurementOrdered B y: Mita Zaidi on 04-18-2024 Glucose [Mass/Vol] 113 mg/dL High 74-106 [facility] Comment on above: Fasting Glucose resu lt from 100 to 125 mg/dL suggests IMPAIRED HOMEOSTASIS per A.D.A. criteria. Hematocrit Auto (Bld) [Volum e fraction]Ordered By: Mita Zaidi on 04-18-2024 Hematocrit (Bld) [Volume fraction] 35.9 % Low 40-54 [facility] Hemoglobin measurementOrdere d By: Mita Zaidi on 04-18-2024 Hemoglobin (Bld) [Mass/Vol] 11.8 g/dL Low 13.0-16.5 [facility] High density lipoprotein (HD L) measurementOrdered By: Mita Zaidi on 04-18-2024 Cholesterol in HDL [Mass/Vol] 31 mg/dL Low >40 [facility] Comment on above: The drugs N-Acetylcy steine and Metamizole may falsely depress this assay. Reference Range HDL <40 mg/dL Low HDL Cholesterol HDL >or= 60 mg/dL High HDL Cholesterol Immature granulocytes/100 WB C Auto (Bld)Ordered By: Mita Zaidi on 04-18-2024 Immature granulocytes/100 WBC (Bld) 0.400 % 0.0-0.9 [facility] Comment on above: IG% - Immature Granu locytes (promyelocytes, myelocytes and metamyelocytes) > 1% indicates that a LEFT SHIFT is Present. Laboratory - Chemistry and C hemistry - challengeOrdered By: Mita Zaidi on 04-18-2024 AST [Catalytic activity/Vol] 12 U/L Low 15-37 [facility] Lipid Profileon 04-18-2024 Cholesterol [Mass/Vol] 140 mg/dL Normal 200 [facility] Comment on above: Result Comment: <200 mg/dL Desirable 200-240 mg/dL Borderline >240 mg/dL High Risk Performed By: #### L 501.080 #### [facility] [address] [place], [address] Cholesterol in HDL [Mass/Vol] 31 mg/dL Low [facility] Comment on above: Result Comment: The drugs N-Acetylcysteine and Metamizole may falsely depress this assay. Reference Range HDL <40 mg/dL Low HDL Cholesterol HDL >or= 60 mg/dL High HDL Cholesterol Performed By: #### L 501.080 #### [facility] [address] [place], [address] Cholesterol in LDL [Mass/Vol] 72 mg/dL Normal 0-130 [facility] Comment on above: Performed By: #### L 501.080 #### [facility] [address] [place], [address] Cholesterol in VLDL [Mass/Vol] 37 mg/dL Normal 5-40 [facility] Comment on above: Performed By: #### L 501.080 #### [facility] [address] [place], [address] Triglyceride [Mass/Vol] 184 mg/dL Normal [facility] Comment on above: Result Comment: The drugs N-Acetylcysteine and Metamizole may falsely depress this assay. Serum Triglycerides Reference Interval Normal <150 mg/dL Borderline high 150 - 199 mg/dL High 200 - 499 mg/dL Very High > or = 500 mg/dL Performed By: #### L 501.080 #### [facility] [address] [place], [address] Low density lipoprotein (LDL ) cholesterol measurementOrdered By: Mita Zaidi on 04-18-2024 Cholesterol in LDL [Mass/Vol] 72 mg/dL 0-130 [facility] Lymphocytes Auto (Unsp spec) [#/Vol]Ordered By: Mita Zaidi on 04-18-2024 Lymphocytes (Bld) [#/Vol] 1.26 10*3/uL 0.83-4.51 [facility] Lymphocytes/100 WBC Auto (Un sp spec)Ordered By: Mita Zaiid on 04-18-2024 Lymphocytes/100 WBC (Bld) 22.2 % 19-41 [facility] MCV (mean corpuscular volume ) determinationOrdered By: Mita Zaidi on 04-18-2024 MCV (RBC) [Entitic vol] 89.8 fL 80-94 [facility] Mean corpuscular hemoglobin (MCH) determinationOrdered By: Mita Zaidi on 04-18-2024 MCH (RBC) [Entitic mass] 29.5 pg 27.0-32.0 [facility] Mean corpuscular hemoglobin concentration (MCHC) determinationOrdered By: Mita Zaidi on 04-18-2024 MCHC (RBC) [Mass/Vol] 32.9 g/dL 32-36 [facility] Mean platelet volume determi nationOrdered By: Mita Zaidi on 04-18-2024 Platelet mean volume (Bld) [Entitic vol] 10.6 fL 6.2-12.0 [facility] Monocyte percentageOrdered B y: Mita Zaidi on 04-18-2024 Monocytes/100 WBC (Bld) 10.2 % High 0-10 [facility] Neutrophil percentageOrdered By: Mita Zaidi on 04-18-2024 Neutrophils/100 WBC (Bld) 59.0 % 47-70 [facility] Nucleated red blood cell per centageOrdered By: Mita Zaidi on 04-18-2024 Nucleated RBC/100 WBC (Bld) [Ratio] 0 % 0-5 [facility] Platelet countOrdered By: Ra lee ann Zaidi on 04-18-2024 Platelets (Bld) [#/Vol] 245 10*3/uL 150-450 [facility] Potassium measurementOrdered By: Mita Zaidi on 04-18-2024 Potassium [Moles/Vol] 4.1 mmol/L 3.5-5.1 [facility] RBC Auto (Bld) [#/Vol]Ordere d By: Mita Zaidi on 04-18-2024 RBC (Bld) [#/Vol] 4.00 10*6/uL Low 4.6-6.2 [facility] Serum anion gap measurementO rdered By: Mita Zaidi on 04-18-2024 Anion gap [Moles/Vol] 5 mmol/L 5-15 [facility] Serum globulin measurementOr dered By: Mita Zaidi on 04-18-2024 Globulin (S) [Mass/Vol] 3.5 g/dL 2.2-4.2 [facility] Serum or plasma alanine ricci otransferase (ALT) measurementOrdered By: Mita Zaidi on 04-18-2024 ALT [Catalytic activity/Vol] 18 U/L 16-61 [facility] Serum or plasma albumin jennifer urement (mass/volume)Ordered By: Mita Zaidi on 04-18-2024 Albumin [Mass/Vol] 3.9 g/dL 3.2-5.0 [facility] Serum or plasma alkaline hal sphatase measurementOrdered By: Mita Zaidi on 04-18-2024 ALP [Catalytic activity/Vol] 52 U/L 45-117 [facility] Serum or plasma calcium jennifer urement (mass/volume)Ordered By: Mita Zaidi on 04-18-2024 Calcium [Mass/Vol] 8.9 mg/dL 8.5-10.1 [facility] Serum or plasma cholesterol measurement (mass/volume)Ordered By: Mita Zaidi on 04-18-2024 Cholesterol [Mass/Vol] 140 mg/dL <200 [facility] Comment on above: <200 mg/dL Desirable 200-240 mg/dL Borderline >240 mg/dL High Risk Serum or plasma creatinine m easurement (mass/volume)Ordered By: Mita Zaidi on 04-18-2024 Creatinine [Mass/Vol] 1.46 mg/dL High 0.70-1.30 [facility] Comment on above: The validity of the calculated GFR & GFRAA in patients over 70 years has not been determined. Clinical correlation is essential. Serum or plasma urea nitroge n measurement (mass/volume)Ordered By: Mita Zaidi on 04-18-2024 Urea nitrogen [Mass/Vol] 29 mg/dL High 7-18 [facility] Sodium levelOrdered By: Cassie Zaidi on 04-18-2024 Sodium [Moles/Vol] 141 mmol/L 136-145 [facility] Total proteinOrdered By: Luis hinson Dejuan on 04-18-2024 Protein [Mass/Vol] 7.4 g/dL 6.4-8.2 [facility] Triglycerides measurementOrd ered By: Mita Zaidi on 04-18-2024 Triglyceride [Mass/Vol] 184 mg/dL <199 [facility] Comment on above: The drugs N-Acetylcy steine and Metamizole may falsely depress this assay.Serum Triglycerides Reference Interval Normal <150 mg/dL Borderline high 150 - 199 mg/dL High 200 - 499 mg/dL Very High > or = 500 mg/dL Very low density lipoprotein (VLDL) cholesterol measurementOrdered By: Mita Zaidi on 04-18-2024 Very low density lipoprotein (VLDL) cholesterol measurement 37 mg/dL 5-40 [facility] VLDL Cholesterol 37 mg/dL 5-40 [facility] White blood cell (WBC) count Ordered By: Mita Zaidi on 04-18-2024 WBC (Bld) [#/Vol] 5.7 10*3/uL 4.4-11.0 [facility] Urine cultureOrdered By: Luis hinson Dejuan on 04-17-2024 Bacteria identified Cx Nom (U) Escherichia coli Abnormal [facility] Urine Cultureon 02-27-2024 [facility] Escherichia coli [place] Count >100,000 Escherichia coli: REACTION Ampicillin Islt [...] TMP SMX Islt JALEN <=20 S Normal [facility] Comment on above: Performed By: #### L 501.080 #### [facility] [address] [place], [place], [address] Urine cultureOrdered By: Luis Zaidi on 02-25-2024 Bacteria identified Cx Nom (U) Escherichia coli Abnormal [facility] Bedside Glucoseon 02-04-2024 FINGERSTICK GLU 112 mg/dL High 74-106 [facility] Comment on above: Result Comment: NURYS MARINO OF PATIENT CARE PER NURSING PROTOCOL Performed By: #### L 501.080 #### [facility] [address] [place], [place], [address] Emergency Department Summary on 02-04-2024 Emergency Department Summary [facility] Medical Records Department [address] [place] [address] Emergency Department Summary 02/04/24 MR#: [id number] Acct: [id number] Name: SINDY GREENFIELD Rep #: [id number] : 1950 73 From: Ian Bernal DO PCP: BENNETT MorejonC Status:DEP ER Location: ED HPI HPI - [...] is feeling Nicola. Tetanus Immunization: Unknown [facility] Medical History SVT (supraventricular tachycardia) Supraventricular tachycardia Transient complete heart block Loss of hearing Wears glasses Cancer History of renal disease High cholesterol Dietary restriction Difficulty swallowing Non-smoker Neuropathy BPH (benign prostatic hyperplasia) Cholecystitis Hypothyroid Diabetes mellitus Leg cramping Sleep apnea treated with continuous positive airway pressure (CPAP) Hypertension Home Medications ???Medication ???Instructions ???Recorded ???Last Taken ???Type dkwqxsyo-ffl-kaszs acid 0.4 1 ea PO DAILY SUPPLEMENT' [...] eye health 12/06/22 05/18/23 History mg-copper 1 lp-ptfslz-kikggz capsule (PreserVision AREDS-2) losartan 100 mg tablet [...] Type Severity Reaction Status Date / Time Stgviqg-TMY-NhN Reductase AdvReac leg cramps Verified 02/04/24 14:47 Inhibitor (Pacbkfv-Tsb-Prg Reductase Inhibitor) Surgical History Stented coronary artery [...] 19:47 Temperature 97 F L 98 F Fonda (more content not included)... 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 coli [place] Count >100,000 Presumptive E. coli: REACTION Ampicillin [...] TMP SMX Islt JALEN <=20 S Normal [facility] Comment on above: Performed By: #### L 501.080 #### [facility] [address] [place], [address] Comprehensive Metabolic Prof ilon 12-31-2023 Albumin [Mass/Vol] 3.9 g/dL Normal 3.2-5.0 [facility] Comment on above: Performed By: #### L 501.080 #### [facility] [address] [place], [address] Albumin/Globulin [Mass ratio] 1.1 {ratio} Normal 0.9-2.4 [facility] Comment on above: Performed By: #### L 501.080 #### [facility] [address] [place], [address] ALK P 57 U/L Normal 45-117 [facility] Comment on above: Performed By: #### L 501.080 #### [facility] [address] [place], [address] ALT [Catalytic activity/Vol] 22 U/L Normal 16-61 [facility] Comment on above: Performed By: #### L 501.080 #### [facility] [address] [place], [address] AST [Catalytic activity/Vol] 11 U/L Low 15-37 [facility] Comment on above: Performed By: #### L 501.080 #### [facility] [address] [place], [address] Bilirubin [Mass/Vol] 0.30 mg/dL Normal 0.20-1.00 [facility] Comment on above: Result Comment: For patients on eltrombopag therapy, use of Dimension Crystal TBIL is not recommended. Performed By: #### L 501.080 #### [facility] [address] [place] [place], [address] BUN/CRE 17.5 RATIO Normal 10-20 [facility] Comment on above: Performed By: #### L 501.080 #### [facility] [address] [place], [address] CA,Total 9.6 mg/dL Normal 8.5-10.1 [facility] Comment on above: Performed By: #### L [id number] #### [facility] [address] [place], [address] Chloride [Moles/Vol] 108 mmol/L High 98-107 [facility] Comment on above: Performed By: #### L 501.080 #### [facility] [address] [place], [address] CO2 [Moles/Vol] 26.0 mmol/L Normal 21.0-32.0 [facility] Comment on above: Performed By: #### L 501.080 #### [facility] [address] [place], [address] Creatinine [Mass/Vol] 1.54 mg/dL High 0.70-1.30 [facility] Comment on above: Result Comment: The validity of the calculated GFR GFRAA in patients over 70 years has not been determined. Clinical correlation is essential. Performed By: #### L 501.080 #### [facility] [address] [place], [address] EST GFR - AA 57 mL/min Low >60 [facility] Comment on above: Result Comment: Afri can Malagasy GFR Calc Performed By: #### L 501.080 #### [facility] [address] [place], [address] GAP 6 Normal 5-15 [facility] Comment on above: Performed By: #### L 501.080 #### [facility] [address] [place], [address] GFR/1.73 sq M.predicted among non-blacks MDRD (S/P/Bld) [Vol rate/Area] 47 mL/min/{1.73_m2} Low >60 [facility] Comment on above: Result Comment: Non- GFR Calc Performed By: #### L 501.080 #### [facility] [address] [place], [address] Globulin (S) [Mass/Vol] 3.5 g/dL Normal 2.2-4.2 [facility] Comment on above: Performed By: #### L 501.080 #### [facility] [address] [place], [address] Glucose [Mass/Vol] 116 mg/dL High 74-106 [facility] Comment on above: Result Comment: Fast ing Glucose result from 100 to 125 mg/dL suggests IMPAIRED HOMEOSTASIS per A.D.A. criteria. Performed By: #### L 501.080 #### [facility] [address] [place], [address] Potassium [Moles/Vol] 4.4 mmol/L Normal 3.5-5.1 [facility] Comment on above: Performed By: #### L 501.080 #### [facility] [address] [place], [address] Sodium [Moles/Vol] 139 mmol/L Normal 136-145 [facility] Comment on above: Performed By: #### L 501.080 #### [facility] [address] [place], [address] T PROT 7.4 g/dL Normal 6.4-8.2 [facility] Comment on above: Performed By: #### L 501.080 #### [facility] [address] [place], [address] Urea nitrogen [Mass/Vol] 27 mg/dL High 7-18 [facility] Comment on above: Performed By: #### L 501.080 #### [facility] [address] [place], [address] Hemoglobin A1con 12-31-2023 HbA1c (Bld) [Mass fraction] 6.2 % High 3.8-5.6 [facility] Comment on above: Result Comment: Norm al < 5.7 % Prediabetic 5.7 - 6.4 % Diabetic >or= 6.5 % Please note range changes. Performed By: #### L 501.080 #### [facility] [address] [place], [place], [address] Thyroid Stim Hormone (TSH)on 12-31-2023 TSH 1.710 uIU/mL Normal 0.358-3.740 [facility] Comment on above: Performed By: #### L 501.080 #### [facility] [address] [place], [place], [address] Cardiology Visit Reporton Cardiology Visit Report [facility] [address] [place], [place] [address] OFFICE VISIT Date of Service: 11/29/23 MR#: [id number] Acct: [id number] Name: SINDY GREENFIELD Rep #: [id number] : 1950 Provider: JOCELINE coy Age/Sex: 73/M [place] [facility] [place] [place] Status: Signed HPI HPI History of [...] 99 Intake Visit Reasons: 6 m fu [employer] Supervisor Required: No Is patient in pain?: No Allergies Urrbgjm-EAX-VxX Reductase Inhibitor (Cyyngno-Joj-Wen Reductase Inhibitor) Adverse Reaction (Verified 11/29/23 09:36) leg cramps Medications ???Medication ???Instructions ???Recorded ???Confirmed ???Type qfuexnne-bmo-tyfqf acid 0.4 1 ea PO DAILY SUPPLEMENT' [...] eye health 12/06/22 11/29/23 History mg-copper 1 vq-wtanpo-elycwi capsule (PreserVision AREDS-2) losartan 100 mg tablet 100 mg PO DAILY blood pressure 04/10/23 11/29/23 History aspirin 81 mg tablet,delayed 81 mg PO DAILYCM heart health 90 04/13/23 11/29/23 Rx release days #90 tabs clopidogrel 75 mg tablet 75 mg PO DAILY anti platelet #90 01/09/24 08/26/24 Rx tabs glipizide 5 mg tablet 2.5 [...] loss of (more content not included)... Normal [facility] Comprehensive Metabolic Prof vania 11-25-2023 Albumin [Mass/Vol] 3.8 g/dL Normal 3.2-5.0 [facility] Comment on above: Order Comment: DR. Elia PIKE ORDERED PSADPA.GAMAL CHRISTIAN CMP,TSH,A1C Performed By: #### L 501.9520, L500.4050, L501.9940, L501.9985 ####[facility] [address] [place], [address] Albumin/Globulin [Mass ratio] 1.1 {ratio} Normal 0.9-2.4 [facility] Comment on above: Order Comment: DR. Elia PIKE ORDERED PSADPA.YEUNG GINO CMP,TSH,A1C Performed By: #### L 501.9520, L500.4050, L501.9940, L501.9985 ####[facility] [address] [place], [address] ALK P 59 U/L Normal 45-117 [facility] Comment on above: Order Comment: DR. Elia PIKE ORDERED PSADPA.GAMAL CHRISTIAN CMP,TSH,A1C Performed By: #### L 501.9520, L500.4050, L501.9940, L501.9985 ####[facility] [address] [place], [address] ALT [Catalytic activity/Vol] 22 U/L Normal 16-61 [facility] Comment on above: Order Comment: DR. Elia PIKE ORDERED PSADPA.GAMAL CHRISTIAN CMP,TSH,A1C Performed By: #### L 501.9520, L500.4050, L501.9940, L501.9985 ####[facility] [address] [place], [address] AST [Catalytic activity/Vol] 14 U/L Low 15-37 [facility] Comment on above: Order Comment: DR. Elia PIKE ORDERED PSADPA.GAMAL CHRISTIAN CMP,TSH,A1C Performed By: #### L 501.9520, L500.4050, L501.9940, L501.9985 ####[facility] [address] [place], [address] Bilirubin [Mass/Vol] 0.40 mg/dL Normal 0.20-1.00 [facility] Comment on above: Order Comment: DR. Elia PIKE ORDERED PSADPA.GAMAL CHRISTIAN CMP,TSH,A1C Result Comment: For patients on eltrombopag therapy, use of Dimension Crystal TBIL is not recommended. Performed By: #### L 501.9520, L500.4050, L501.9940, L501.9985 ####[facility] [address] [place], [address] BUN/CRE 21.5 RATIO High 10-20 [facility] Comment on above: Order Comment: DR. Elia PIKE ORDERED PSADPA.GAMAL CHRISTIAN CMP,TSH,A1C Performed By: #### L 501.9520, L500.4050, L501.9940, L501.9985 ####[facility] [address] [place], [address] CA,Total 8.9 mg/dL Normal 8.5-10.1 [facility] Comment on above: Order Comment: DR. Elia PIKE ORDERED PSADPA.GAMAL CHRISTIAN CMP,TSH,A1C Performed By: #### L 501.9520, L500.4050, L501.9940, L501.9985 ####[facility] [address] [place], [address] Chloride [Moles/Vol] 105 mmol/L Normal 98-107 [facility] Comment on above: Order Comment: DR. Elia PIKE ORDERED PSADPA.GAMAL CHRISTIAN CMP,TSH,A1C Performed By: #### L 501.9520, L500.4050, L501.9940, L501.9985 ####[facility] [address] [place], [address] CO2 [Moles/Vol] 24.0 mmol/L Normal 21.0-32.0 [facility] Comment on above: Order Comment: DR. Elia PIKE ORDERED PSADPA.GAMAL CHRISTIAN CMP,TSH,A1C Performed By: #### L 501.9520, L500.4050, L501.9940, L501.9985 ####[facility] [address] [place], [address] Creatinine [Mass/Vol] 1.49 mg/dL High 0.70-1.30 [facility] Comment on above: Order Comment: DR. Elia PIKE ORDERED PSADPA.[facility],TSH,A1C Result Comment: The validity of the calculated GFR GFRAA in patients over 70 years has not been determined. Clinical correlation is essential. Performed By: #### L 501.9520, L500.4050, L501.9940, L501.9985 ####[facility] [address] [place], [address] EST GFR - AA 59 mL/min Low >60 [facility] Comment on above: Order Comment: DR. Elia PIKE ORDERED PSADPA.[facility],TSH,A1C Result Comment: Afri can Malagasy GFR Calc Performed By: #### L 501.9520, L500.4050, L501.9940, L501.9985 ####[facility] [address] [place], [address] GAP 11 Normal 5-15 [facility] Comment on above: Order Comment: DR. Elia PIKE ORDERED PSADPA.[facility]G [facility] CMP,TSH,A1C Performed By: #### L 501.9520, L500.4050, L501.9940, L501.9985 ####[facility] [address] [place], [address] GFR/1.73 sq M.predicted among non-blacks MDRD (S/P/Bld) [Vol rate/Area] 49 mL/min/{1.73_m2} Low >60 [facility] Comment on above: Order Comment: DR. Elia PIKE ORDERED PSADPA.YEUNGTY CHRISTIAN CMP,TSH,A1C Result Comment: Non- GFR Calc Performed By: #### L 501.9520, L500.4050, L501.9940, L501.9985 ####[facility] [address] [place], [address] Globulin (S) [Mass/Vol] 3.5 g/dL Normal 2.2-4.2 [facility] Comment on above: Order Comment: DR. Elia PIKE ORDERED PSADPA.GAMAL CHRISTIAN CMP,TSH,A1C Performed By: #### L 501.9520, L500.4050, L501.9940, L501.9985 ####[facility] [address] [place], [address] Glucose [Mass/Vol] 194 mg/dL High 74-106 [facility] Comment on above: Order Comment: DR. Elia PIKE ORDERED PSADPA.GAMAL CHRISTIAN CMP,TSH,A1C Result Comment: Fast ing Glucose result greater than or equal to 126 mg/dL suggests DIABETES MELLITUS per A.D.A. criteria. Performed By: #### L 501.9520, L500.4050, L501.9940, L501.9985 ####[facility] [address] [place], [address] Potassium [Moles/Vol] 4.6 mmol/L Normal 3.5-5.1 [facility] Comment on above: Order Comment: DR. Elia PIKE ORDERED PSADPA.GAMAL CHRISTIAN CMP,TSH,A1C Performed By: #### L 501.9520, L500.4050, L501.9940, L501.9985 ####[facility] [address] [place], [address] Sodium [Moles/Vol] 140 mmol/L Normal 136-145 [facility] Comment on above: Order Comment: DR. Elia PIKE ORDERED PSADPA.GAMAL CHRISTIAN CMP,TSH,A1C Performed By: #### L 501.9520, L500.4050, L501.9940, L501.9985 ####[facility] [address] [place], [address] T PROT 7.3 g/dL Normal 6.4-8.2 [facility] Comment on above: Order Comment: DR. Elia PIKE ORDERED PSADPA.GAMAL CHRISTIAN CMP,TSH,A1C Performed By: #### L 501.9520, L500.4050, L501.9940, L501.9985 ####[facility] [address] [place], [address] Urea nitrogen [Mass/Vol] 32 mg/dL High 7-18 [facility] Comment on above: Order Comment: DR. Elia PIKE ORDERED PSADPA.GAMAL CHRISTIAN CMP,TSH,A1C Performed By: #### L 501.9520, L500.4050, L501.9940, L501.9985 ####[facility] [address] [place], [address] Hemoglobin A1con 11-25-2023 HbA1c (Bld) [Mass fraction] 5.8 % High 3.8-5.6 [facility] Comment on above: Order Comment: DR. Elia PIKE ORDERED PSADPA.GAMAL CHRISTIAN CMP,TSH,A1C Result Comment: Norm al < 5.7 % Prediabetic 5.7 - 6.4 % Diabetic >or= 6.5 % Please note range changes. Performed By: #### L 501.9520, L500.4050, L501.9940, L501.9985 ####[facility] [address] [place], [address] PSA,Total- Diagnosticon 11-04 PSA, DIAGNOSTIC < 0.01 Normal 0.0-4.0 [facility] Comment on above: Order Comment: DR. Elia PIKE ORDERED PSADPA.GAMAL CHRISTIAN CMP,TSH,A1C Result Comment: This test was performed using the TPSA assay method for the [employer] chemistry system. Values obtained with different assay methods cannot be used interchangably. When changing PSA assays in the course of monitoring a patient, additional sequential testing should be carried out to confirm baseline values. Performed By: #### L 501.9520, L500.4050, L501.9940, L501.9985 ####[facility] [address] [place], [address] Thyroid Stim Hormone (TSH)on 11-25-2023 TSH 4.270 uIU/mL High 0.358-3.740 [facility] Comment on above: Order Comment: DR. Elia PIKE ORDERED PSADPA.GAMAL CHRISTIAN CMP,TSH,A1C Performed By: #### L 501.9520, L500.4050, L501.9940, L501.9985 ####[facility] [address] [place], [address] CPK Total, Creatine Kinaseon 10-28-2023 CPK TOTAL 85 U/L Normal 39-308 [facility] Comment on above: Performed By: #### L 100.0100 #### [facility] [address] [place], [address] Comprehensive Metabolic Prof ilon 10-28-2023 Albumin [Mass/Vol] 3.7 g/dL Normal 3.2-5.0 [facility] Comment on above: Performed By: #### L 100.0100 #### [facility] [address] [place], [address] Albumin/Globulin [Mass ratio] 1.1 {ratio} Normal 0.9-2.4 [facility] Comment on above: Performed By: #### L 100.0100 #### [facility] [address] [place], [address] ALK P 48 U/L Normal 45-117 [facility] Comment on above: Performed By: #### L 100.0100 #### [facility] [address] [place], [address] ALT [Catalytic activity/Vol] 21 U/L Normal 16-61 [facility] Comment on above: Performed By: #### L 100.0100 #### [facility] [address] [place], [address] AST [Catalytic activity/Vol] 14 U/L Low 15-37 [facility] Comment on above: Performed By: #### L 100.0100 #### [facility] [address] [place], [address] Bilirubin [Mass/Vol] 0.40 mg/dL Normal 0.20-1.00 [facility] Comment on above: Result Comment: For patients on eltrombopag therapy, use of Dimension Crystal TBIL is not recommended. Performed By: #### L 100.0100 #### [facility] [address] [place], [address] BUN/CRE 21.4 RATIO High 10-20 [facility] Comment on above: Performed By: #### L 100.0100 #### [facility] [address] [place], [address] CA,Total 8.5 mg/dL Normal 8.5-10.1 [facility] Comment on above: Performed By: #### L 100.0100 #### [facility] [address] [place], [address] Chloride [Moles/Vol] 111 mmol/L High 98-107 [facility] Comment on above: Performed By: #### L 100.0100 #### [facility] [address] [place], [address] CO2 [Moles/Vol] 24.0 mmol/L Normal 21.0-32.0 [facility] Comment on above: Performed By: #### L 100.0100 #### [facility] [address] [place], [address] Creatinine [Mass/Vol] 1.45 mg/dL High 0.70-1.30 [facility] Comment on above: Result Comment: The validity of the calculated GFR GFRAA in patients over 70 years has not been determined. Clinical correlation is essential. Performed By: #### L 100.0100 #### [facility] [address] [place], [address] EST GFR - AA 61 mL/min Normal >60 [facility] Comment on above: Result Comment: Afri can Malagasy GFR Calc Performed By: #### L 100.0100 #### [facility] [address] [place], [address] GAP 6 Normal 5-15 [facility] Comment on above: Performed By: #### L 100.0100 #### [facility] [address] [place], [address] GFR/1.73 sq M.predicted among non-blacks MDRD (S/P/Bld) [Vol rate/Area] 51 mL/min/{1.73_m2} Low >60 [facility] Comment on above: Result Comment: Non- GFR Calc Performed By: #### L 100.0100 #### [facility] [address] [place], [address] Globulin (S) [Mass/Vol] 3.5 g/dL Normal 2.2-4.2 [facility] Comment on above: Performed By: #### L 100.0100 #### [facility] [address] [place], [address] Glucose [Mass/Vol] 106 mg/dL Normal 74-106 [facility] Comment on above: Result Comment: Fast ing Glucose result from 100 to 125 mg/dL suggests IMPAIRED HOMEOSTASIS per A.D.A. criteria. Performed By: #### L 100.0100 #### [facility] [address] [place], [address] Potassium [Moles/Vol] 4.0 mmol/L Normal 3.5-5.1 [facility] Comment on above: Performed By: #### L 100.0100 #### [facility] [address] [place], [address] Sodium [Moles/Vol] 141 mmol/L Normal 136-145 [facility] Comment on above: Performed By: #### L 100.0100 #### [facility] [address] [place], [address] T PROT 7.2 g/dL Normal 6.4-8.2 [facility] Comment on above: Performed By: #### L 100.0100 #### [facility] [address] [place], [address] Urea nitrogen [Mass/Vol] 31 mg/dL High 7-18 [facility] Comment on above: Performed By: #### L 100.0100 #### [facility] [address] [place], [address] Hemoglobin A1con 10-28-2023 HbA1c (Bld) [Mass fraction] 5.9 % High 3.8-5.6 [facility] Comment on above: Result Comment: Norm al < 5.7 % Prediabetic 5.7 - 6.4 % Diabetic >or= 6.5 % Please note range changes. Performed By: #### L 100.0100 #### [facility] [address] [place], [address] Lipid Profileon 10-28-2023 Cholesterol [Mass/Vol] 139 mg/dL Normal 200 [facility] Comment on above: Result Comment: <200 mg/dL Desirable 200-240 mg/dL Borderline >240 mg/dL High Risk Performed By: #### L 100.0100 #### [facility] [address] [place], [address] Cholesterol in HDL [Mass/Vol] 29 mg/dL Low [facility] Comment on above: Result Comment: The drugs N-Acetylcysteine and Metamizole may falsely depress this assay. Reference Range HDL <40 mg/dL Low HDL Cholesterol HDL >or= 60 mg/dL High HDL Cholesterol Performed By: #### L 100.0100 #### [facility] [address] [place], [address] Cholesterol in LDL [Mass/Vol] 70 mg/dL Normal 0-130 [facility] Comment on above: Performed By: #### L 100.0100 #### [facility] [address] [facility] [place], [address] Cholesterol in VLDL [Mass/Vol] 40 mg/dL Normal 5-40 [facility] Comment on above: Performed By: #### L 100.0100 #### [facility] [address] [place], [address] Triglyceride [Mass/Vol] 202 mg/dL High [facility] Comment on above: Result Comment: The drugs N-Acetylcysteine and Metamizole may falsely depress this assay. Serum Triglycerides Reference Interval Normal <150 mg/dL Borderline high 150 - 199 mg/dL High 200 - 499 mg/dL Very High > or = 500 mg/dL Performed By: #### L 100.0100 #### [facility] [address] [place], [address] Thyroid Stim Hormone (TSH)on 10-28-2023 TSH 4.34 uIU/mL High 0.358-3.74 [facility] Comment on above: Performed By: #### L 501.080 #### [facility] [address] [place], [address] Basophil percentageOrdered B y: Tone Ballard on 07-20-2023 Creatinine [Mass/Vol] 1.5 mg/dL 0.70-1.30 [facility] - Chemistry and C hemistry - challengeOrdered By: Tone Ballard on 07-20-2023 GFR/1.73 sq M.predicted among non-blacks MDRD (S/P/Bld) [Vol rate/Area] 48.0000 mL/min/{1.73_m2} >60 [facility] Absolute lymphocyte countOrd ered By: Tone Horton on 06-24-2023 Lymphocytes Auto (Unsp spec) [#/Vol] 1.11 10*3/uL 0.83-4.51 [facility] Automated lymphocyte count a s percentage of total leukocytesOrdered By: Tone Horton on 06-24-2023 Lymphocytes/100 WBC Auto (Unsp spec) 14.4 % 19-41 [facility] Basophil percentageOrdered B y: Tone Horton on 06-24-2023 Basophils/100 WBC (Bld) 1.0 % 0-1 [facility] Eosinophils/100 WBC (Bld) 4.4 % 0-5 [facility] Hemoglobin (Bld) [Mass/Vol] 11.7 g/dL 13.0-16.5 [facility] Monocytes/100 WBC (Bld) 8.4 % 0-10 [facility] Neutrophils (Bld) [#/Vol] 5.5 10*3/uL 2.0-7.7 [facility] Neutrophils/100 WBC (Bld) 71.7 % 47-70 [facility] WBC (Bld) [#/Vol] 7.7 10*3/uL 4.4-11.0 [facility] Determination of erythrocyte mean corpuscular volume (MCV)Ordered By: Tone Horton on 06-24-2023 MCV (RBC) [Entitic vol] 88.4 fL 80-94 [facility] Erythrocyte distribution wid th ratioOrdered By: Tone Horton on 06-24-2023 Erythrocyte distribution width (RBC) [Ratio] 13.9 % 11.6-14.6 [facility] Erythrocyte distribution wid th standard deviationOrdered By: Tone Horton on 06-24-2023 Erythrocyte distribution width (RBC) [Entitic vol] 45.1 fL 35.1-43.9 [facility] Hematocrit Auto (Bld) [Volum e fraction]Ordered By: Tone Horton on 06-24-2023 Hematocrit (Bld) [Volume fraction] 35.7 % 40-54 [facility] Immature granulocytes/100 WB C Auto (Bld)Ordered By: Tone Horton on 06-24-2023 Immature granulocytes/100 WBC (Bld) 0.100 % 0.0-0.9 [facility] Comment on above: IG% - Immature Granu locytes (promyelocytes, myelocytes and metamyelocytes) > 1% indicates that a LEFT SHIFT is Present. Iron measurement (mass/mass) Ordered By: Tone Horton on 06-24-2023 Iron (Unsp spec) [Mass/Mass] 70 ug/dL 65-175 [facility] - Chemistry and C hemistry - challengeOrdered By: Tone Horton on 06-24-2023 Cobalamin (Vitamin B12) [Mass/Vol] 1019 pg/mL 211-911 [facility] - Hematology and Cell countsOrdered By: Tone Horton on 06-24-2023 MCH (RBC) [Entitic mass] 29.0 pg 27.0-32.0 [facility] MCHC (RBC) [Mass/Vol] 32.8 g/dL 32-36 [facility] Nucleated RBC/100 WBC (Bld) [Ratio] 0 % 0-5 [facility] Platelet mean volume (Bld) [Entitic vol] 10.6 fL 6.2-12.0 [facility] Platelets (Bld) [#/Vol] 243 10*3/uL 150-450 [facility] RBC Auto (Bld) [#/Vol]Ordere d By: Tone Horton on 06-24-2023 RBC (Bld) [#/Vol] 4.04 10*6/uL 4.6-6.2 [facility] Absolute lymphocyte countOrd ered By: Tone Horton on 06-18-2023 Lymphocytes Auto (Unsp spec) [#/Vol] 1.34 10*3/uL 0.83-4.51 [facility] Automated lymphocyte count a s percentage of total leukocytesOrdered By: Tone Horton on 06-18-2023 Lymphocytes/100 WBC Auto (Unsp spec) 22.5 % 19-41 [facility] Basophil percentageOrdered B y: Tone Horton on 06-18-2023 Basophils/100 WBC (Bld) 1.3 % 0-1 [facility] Bilirubin [Mass/Vol] 0.40 mg/dL 0.20-1.00 [facility] Comment on above: For patients on eltr ombopag therapy, use of Dimension Crystal TBIL is not recommended. Chloride [Moles/Vol] 110 mmol/L 98-107 [facility] Cholesterol [Mass/Vol] 169 mg/dL <200 [facility] Comment on above: <200 mg/dL Desirable 200-240 mg/dL Borderline >240 mg/dL High Risk Eosinophils/100 WBC (Bld) 7.9 % 0-5 [facility] Glucose [Mass/Vol] 109 mg/dL 74-106 [facility] Comment on above: Fasting Glucose resu lt from 100 to 125 mg/dL suggests IMPAIRED HOMEOSTASIS per A.D.A. criteria. Hemoglobin (Bld) [Mass/Vol] 11.7 g/dL 13.0-16.5 [facility] Monocytes/100 WBC (Bld) 10.2 % 0-10 [facility] Neutrophils (Bld) [#/Vol] 3.4 10*3/uL 2.0-7.7 [facility] Neutrophils/100 WBC (Bld) 57.8 % 47-70 [facility] Potassium [Moles/Vol] 4.0 mmol/L 3.5-5.1 [facility] Protein [Mass/Vol] 7.7 g/dL 6.4-8.2 [facility] Sodium [Moles/Vol] 142 mmol/L 136-145 [facility] Triglyceride [Mass/Vol] 213 mg/dL <199 [facility] Comment on above: The drugs N-Acetylcy steine and Metamizole may falsely depress this assay.Serum Triglycerides Reference Interval Normal <150 mg/dL Borderline high 150 - 199 mg/dL High 200 - 499 mg/dL Very High > or = 500 mg/dL WBC (Bld) [#/Vol] 6.0 10*3/uL 4.4-11.0 [facility] Determination of erythrocyte mean corpuscular volume (MCV)Ordered By: Tone Horton on 06-18-2023 MCV (RBC) [Entitic vol] 88.2 fL 80-94 [facility] Erythrocyte distribution wid th ratioOrdered By: Tone Horton on 06-18-2023 Erythrocyte distribution width (RBC) [Ratio] 13.6 % 11.6-14.6 [facility] Erythrocyte distribution wid th standard deviationOrdered By: Tone Horton on 06-18-2023 Erythrocyte distribution width (RBC) [Entitic vol] 43.9 fL 35.1-43.9 [facility] Hematocrit Auto (Bld) [Volum e fraction]Ordered By: Tone Horton on 06-18-2023 Hematocrit (Bld) [Volume fraction] 35.9 % 40-54 [facility] Immature granulocytes/100 WB C Auto (Bld)Ordered By: Tone Horton on 06-18-2023 Immature granulocytes/100 WBC (Bld) 0.300 % 0.0-0.9 [facility] Comment on above: IG% - Immature Granu locytes (promyelocytes, myelocytes and metamyelocytes) > 1% indicates that a LEFT SHIFT is Present. Laboratory - Chemistry and C hemistry - challengeOrdered By: Tone Horton on 06-18-2023 Albumin/Globulin [Mass ratio] 1.1 {ratio} 0.9-2.4 [facility] ALP [Catalytic activity/Vol] 50 U/L 45-117 [facility] ALT [Catalytic activity/Vol] 20 U/L 16-61 [facility] Cholesterol in HDL [Mass/Vol] 29 mg/dL >40 [facility] Comment on above: The drugs N-Acetylcy steine and Metamizole may falsely depress this assay. Reference Range HDL <40 mg/dL Low HDL Cholesterol HDL >or= 60 mg/dL High HDL Cholesterol Cholesterol in LDL [Mass/Vol] 97 mg/dL 0-130 [facility] CK [Catalytic activity/Vol] 90 U/L 39-308 [facility] CO2 [Moles/Vol] 26.0 mmol/L 21.0-32.0 [facility] Globulin (S) [Mass/Vol] 3.6 g/dL 2.2-4.2 [facility] Urea nitrogen/Creatinine [Mass ratio] 26.3 mg/mg 10-20 [facility] Laboratory - Hematology and Cell countsOrdered By: Tone Horton on 06-18-2023 MCH (RBC) [Entitic mass] 28.7 pg 27.0-32.0 [facility] MCHC (RBC) [Mass/Vol] 32.6 g/dL 32-36 [facility] Nucleated RBC/100 WBC (Bld) [Ratio] 0 % 0-5 [facility] Platelet mean volume (Bld) [Entitic vol] 10.6 fL 6.2-12.0 [facility] Platelets (Bld) [#/Vol] 249 10*3/uL 150-450 [facility] No Panel InformationOrdered By: Tone Horton on 06-18-2023 Estimated GFR (MDRD) Amer 58 mL/min >60 [facility] Comment on above: GFR Calc Estimated GFR (MDRD) Non-Af Amer 48 mL/min >60 [facility] Comment on above: Non- GFR Calc Urine Microalbumin/Creatinine Ratio 109.2 mg/g CRE <30 [facility] Vitamin D 25-Hydroxy 42.6 ng/mL [facility] Comment on above: Vitamin D 25(OH) Sta tus Range Deficiency <20 ng/mL (50nmol/L) Insufficiency 20 - 30 ng/mL (50 - 75 nmol/L) Sufficiency 30 - 100 ng/mL (75 - 250 nmol/L) Toxicity >100 ng/mL (>250 nmol/L) VLDL Cholesterol 43 mg/dL 5-40 [facility] RBC Auto (Bld) [#/Vol]Ordere d By: Tone Horton on 06-18-2023 RBC (Bld) [#/Vol] 4.07 10*6/uL 4.6-6.2 [facility] [place] Serum or plasma calcium jennifer urement (mass/volume)Ordered By: Tone Horton on 06-18-2023 Calcium [Mass/Vol] 9.2 mg/dL 8.5-10.1 [facility] Serum or plasma creatinine m easurement (mass/volume)Ordered By: Tone Horton on 06-18-2023 Creatinine [Mass/Vol] 1.52 mg/dL 0.70-1.30 [facility] Comment on above: The validity of the calculated GFR & GFRAA in patients over 70 years has not been determined. Clinical correlation is essential. Serum or plasma urea nitroge n measurement (mass/volume)Ordered By: Tone Horton on 06-18-2023 Urea nitrogen [Mass/Vol] 40 mg/dL 7-18 [facility] Thin prep Papanicolaou smear with manual screeningOrdered By: Tone Horton on 06-18-2023 Thin prep Papanicolaou smear with manual screening 4.1 g/dL 3.2-5.0 [facility] Thin prep Papanicolaou smear with manual screening 17 U/L 15-37 [facility] Thin prep Papanicolaou smear with manual screening 6 5-15 [facility] Thin prep Papanicolaou smear with manual screening 90.3 mg/L NO RANGE EST. [facility] Urine creatinine measurement (mass/volume)Ordered By: Tone Horton on 06-18-2023 Creatinine (U) [Mass/Vol] 82.70 mg/dL NO RANGE EST. [facility] Whole blood hemoglobin A1c/t otal hemoglobin ratio (mass fraction)Ordered By: Tone Horton on 06-18-2023 HbA1c (Bld) [Mass fraction] 5.9 % 3.8-5.6 [facility] Comment on above: Normal < 5.7 % Predi abetic 5.7 - 6.4 % Diabetic >or= 6.5 % Please note range changes. Basophil percentageOrdered B y: Gil Mcclelland on 05-19-2023 Chloride [Moles/Vol] 109 mmol/L 98-107 [facility] Glucose [Mass/Vol] 118 mg/dL 74-106 [facility] Comment on above: Fasting Glucose resu lt from 100 to 125 mg/dL suggests IMPAIRED HOMEOSTASIS per A.D.A. criteria. Potassium [Moles/Vol] 4.1 mmol/L 3.5-5.1 [facility] Sodium [Moles/Vol] 143 mmol/L 136-145 [facility] Laboratory - Chemistry and C hemistry - challengeOrdered By: Gil Mcclelland on 05-19-2023 CO2 [Moles/Vol] 24.0 mmol/L 21.0-32.0 [facility] Urea nitrogen/Creatinine [Mass ratio] 20.5 mg/mg 10-20 [facility] No Panel InformationOrdered By: Gil Mcclelland on 05-19-2023 Estimated Creatinine Clearance Calc 42.92 ml/min [facility] Estimated GFR (MDRD) Amer 58 mL/min >60 [facility] Comment on above: GFR Calc Estimated GFR (MDRD) Non-Af Amer 48 mL/min >60 [facility] Comment on above: Non- GFR Calc Serum or plasma calcium jennifer urement (mass/volume)Ordered By: Gil Mcclelland on 05-19-2023 Calcium [Mass/Vol] 9.1 mg/dL 8.5-10.1 [facility] Serum or plasma creatinine m easurement (mass/volume)Ordered By: Gil Mcclelland on 05-19-2023 Creatinine [Mass/Vol] 1.51 mg/dL 0.70-1.30 [facility] Comment on above: The validity of the calculated GFR & GFRAA in patients over 70 years has not been determined. Clinical correlation is essential. Serum or plasma urea nitroge n measurement (mass/volume)Ordered By: Gil Mcclelland on 05-19-2023 Urea nitrogen [Mass/Vol] 31 mg/dL 7-18 [facility] Thin prep Papanicolaou smear with manual screeningOrdered By: Gil Mcclelland on 05-19-2023 Thin prep Papanicolaou smear with manual screening 10 5-15 [facility] Absolute lymphocyte countOrd ered By: Senthil Hsieh on 05-18-2023 Lymphocytes Auto (Unsp spec) [#/Vol] 1.46 10*3/uL 0.83-4.51 [facility] Activated partial thrombopla stin time (aPTT) in platelet poor plasma by coagulation aOrdered By: Senthil Hsieh on 05-18-2023 aPTT Coag (PPP) [Time] 27.9 s 24.1-36.2 [facility] Automated lymphocyte count a s percentage of total leukocytesOrdered By: Senthil Hsieh on 05-18-2023 Lymphocytes/100 WBC Auto (Unsp spec) 23.9 % 19-41 [facility] Basophil percentageOrdered B y: Senthil Hsieh on 05-18-2023 Basophils/100 WBC (Bld) 1.6 % 0-1 [facility] Chloride [Moles/Vol] 109 mmol/L 98-107 [facility] Eosinophils/100 WBC (Bld) 5.7 % 0-5 [facility] Glucose [Mass/Vol] 244 mg/dL 74-106 [facility] Comment on above: Glucose result great er than or equal to 200 mg/dLsuggests DIABETES MELLITUS per A.D.A. criteria. Hemoglobin (Bld) [Mass/Vol] 12.4 g/dL 13.0-16.5 [facility] Monocytes/100 WBC (Bld) 8.8 % 0-10 [facility] Neutrophils (Bld) [#/Vol] 3.7 10*3/uL 2.0-7.7 [facility] Neutrophils/100 WBC (Bld) 59.8 % 47-70 [facility] Potassium [Moles/Vol] 3.9 mmol/L 3.5-5.1 [facility] Sodium [Moles/Vol] 140 mmol/L 136-145 [facility] WBC (Bld) [#/Vol] 6.1 10*3/uL 4.4-11.0 [facility] Determination of erythrocyte mean corpuscular volume (MCV)Ordered By: Senthil Hsieh on 05-18-2023 MCV (RBC) [Entitic vol] 88.8 fL 80-94 [facility] Erythrocyte distribution wid th ratioOrdered By: Senthil Hsieh on 05-18-2023 Erythrocyte distribution width (RBC) [Ratio] 13.5 % 11.6-14.6 [facility] Erythrocyte distribution wid th standard deviationOrdered By: Senthil Hsieh on 05-18-2023 Erythrocyte distribution width (RBC) [Entitic vol] 43.6 fL 35.1-43.9 [facility] Hematocrit Auto (Bld) [Volum e fraction]Ordered By: Senthil Hsieh on 05-18-2023 Hematocrit (Bld) [Volume fraction] 37.9 % 40-54 [facility] Immature granulocytes/100 WB C Auto (Bld)Ordered By: Senthil Hsieh on 05-18-2023 Immature granulocytes/100 WBC (Bld) 0.200 % 0.0-0.9 [facility] Comment on above: IG% - Immature Granu locytes (promyelocytes, myelocytes and metamyelocytes) > 1% indicates that a LEFT SHIFT is Present. Laboratory - Chemistry and C hemistry - challengeOrdered By: Senthil Hsieh on 05-18-2023 CO2 [Moles/Vol] 23.0 mmol/L 21.0-32.0 [facility] Magnesium [Mass/Vol] 2.2 mg/dL 1.6-2.6 [facility] Urea nitrogen/Creatinine [Mass ratio] 15.3 mg/mg 10-20 [facility] Laboratory - CoagulationOrde red By: Senthil Hsieh on 05-18-2023 INR Coag (Bld) [Relative time] 1.1 {INR} [facility] PT Coag (PPP) [Time] 13.8 s 11.7-14.9 [facility] Laboratory - Hematology and Cell countsOrdered By: Senthil Hsieh on 05-18-2023 MCH (RBC) [Entitic mass] 29.0 pg 27.0-32.0 [facility] MCHC (RBC) [Mass/Vol] 32.7 g/dL 32-36 [facility] Nucleated RBC/100 WBC (Bld) [Ratio] 0 % 0-5 [facility] Platelet mean volume (Bld) [Entitic vol] 10.6 fL 6.2-12.0 [facility] Platelets (Bld) [#/Vol] 307 10*3/uL 150-450 [facility] No Panel InformationOrdered By: Senthil Hsieh on 05-18-2023 Troponin I High Sensitivity 839 pg/mL 3.0-78.0 [facility] Comment on above: Critical Result(s) C alled at: 13:03:16 05/18/2023 by: Lauryn Salas. Results read back by same. Please Note: New Test Units and Gender Specific Reference Ranges. For more information see Policy Stat Procedure Crystal High Sensitivity Troponin (TNIH) and attachments. Estimated Creatinine Clearance Calc 34.11 ml/min [facility] Estimated GFR (MDRD) Amer 45 mL/min >60 [facility] Comment on above: GFR Calc Estimated GFR (MDRD) Non-Af Amer 37 mL/min >60 [facility] Comment on above: Non- GFR Calc RBC Auto (Bld) [#/Vol]Ordere d By: Senthil Hsieh on 05-18-2023 RBC (Bld) [#/Vol] 4.27 10*6/uL 4.6-6.2 [facility] [place] Serum or plasma calcium jennifer urement (mass/volume)Ordered By: Senthil Hsieh on 05-18-2023 Calcium [Mass/Vol] 9.6 mg/dL 8.5-10.1 [facility] Serum or plasma cardiac trop onin I panel by high sensitivity methodOrdered By: Senthil Hsieh on 05-18-2023 Tropinin I.cardiac panel High sensitivity method 41 pg/mL 3.0-78.0 [facility] Comment on above: Please Note: New Kajal t Units and Gender Specific Reference Ranges. For more information see Policy Stat Procedure Crystal High Sensitivity Troponin (TNIH) and attachments. Serum or plasma creatinine m easurement (mass/volume)Ordered By: Senthil Hsieh on 05-18-2023 Creatinine [Mass/Vol] 1.90 mg/dL 0.70-1.30 [facility] Comment on above: The validity of the calculated GFR & GFRAA in patients over 70 years has not been determined. Clinical correlation is essential. Serum or plasma thyroid stim ulating hormone (TSH) measurement (units/volume)Ordered By: Senthil Hsieh on 05-18-2023 TSH Qn 3.60 uIU/mL 0.358-3.74 [facility] Serum or plasma urea nitroge n measurement (mass/volume)Ordered By: Senthil Hsieh on 05-18-2023 Urea nitrogen [Mass/Vol] 29 mg/dL 7-18 [facility] Thin prep Papanicolaou smear with manual screeningOrdered By: Senthil Hsieh on 05-18-2023 Thin prep Papanicolaou smear with manual screening 8 5-15 [facility] Basophil percentageOrdered B y: Tone Horton on 04-22-2023 Chloride [Moles/Vol] 110 mmol/L 98-107 [facility] Glucose [Mass/Vol] 90 mg/dL 74-106 [facility] Potassium [Moles/Vol] 4.3 mmol/L 3.5-5.1 [facility] Sodium [Moles/Vol] 140 mmol/L 136-145 [facility] Laboratory - Chemistry and C hemistry - challengeOrdered By: Tone Horton on 04-22-2023 CO2 [Moles/Vol] 26.0 mmol/L 21.0-32.0 [facility] Urea nitrogen/Creatinine [Mass ratio] 24.6 mg/mg 10-20 [facility] No Panel InformationOrdered By: Tone Horton on 04-22-2023 Estimated GFR (MDRD) Amer 69 mL/min >60 [facility] Comment on above: GFR Calc Estimated GFR (MDRD) Non-Af Amer 57 mL/min >60 [facility] Comment on above: Non- GFR Calc Serum or plasma calcium jennifer urement (mass/volume)Ordered By: Tone Horton on 04-22-2023 Calcium [Mass/Vol] 9.2 mg/dL 8.5-10.1 [facility] Serum or plasma creatinine m easurement (mass/volume)Ordered By: Tone Horton on 04-22-2023 Creatinine [Mass/Vol] 1.30 mg/dL 0.70-1.30 [facility] Comment on above: The validity of the calculated GFR & GFRAA in patients over 70 years has not been determined. Clinical correlation is essential. Serum or plasma urea nitroge n measurement (mass/volume)Ordered By: Tone Horton on 04-22-2023 Urea nitrogen [Mass/Vol] 32 mg/dL - [facility] Thin prep Papanicolaou smear with manual screeningOrdered By: Tone Horton on 04-22-2023 Thin prep Papanicolaou smear with manual screening 4 5-15 [facility] Basophil percentageOrdered B y: Tari Peñaloza on 04-14-2023 Chloride [Moles/Vol] 113 mmol/L 98-107 [facility] Glucose [Mass/Vol] 109 mg/dL 74-106 [facility] Comment on above: Fasting Glucose resu lt from 100 to 125 mg/dL suggests IMPAIRED HOMEOSTASIS per A.D.A. criteria. Potassium [Moles/Vol] 4.2 mmol/L 3.5-5.1 [facility] Sodium [Moles/Vol] 145 mmol/L 136-145 [facility] Laboratory - Chemistry and C hemistry - challengeOrdered By: Tari Peñaloza on 04-14-2023 CO2 [Moles/Vol] 25.0 mmol/L 21.0-32.0 [facility] Urea nitrogen/Creatinine [Mass ratio] 20.4 mg/mg 10-20 [facility] No Panel InformationOrdered By: Tari Peñaloza on 04-14-2023 Estimated GFR (MDRD) Amer 52 mL/min >60 [facility] Comment on above: GFR Calc Estimated GFR (MDRD) Non-Af Amer 43 mL/min >60 [facility] Comment on above: Non- GFR Calc Serum or plasma calcium jennifer urement (mass/volume)Ordered By: Tari Peñaloza on 04-14-2023 Calcium [Mass/Vol] 9.7 mg/dL 8.5-10.1 [facility] Serum or plasma creatinine m easurement (mass/volume)Ordered By: Tari Peñaloza on 04-14-2023 Creatinine [Mass/Vol] 1.67 mg/dL 0.70-1.30 [facility] Comment on above: The validity of the calculated GFR & GFRAA in patients over 70 years has not been determined. Clinical correlation is essential. Serum or plasma urea nitroge n measurement (mass/volume)Ordered By: Tari Peñaloza on 04-14-2023 Urea nitrogen [Mass/Vol] 34 mg/dL 7-18 [facility] Thin prep Papanicolaou smear with manual screeningOrdered By: Tari Peñaloza on 04-14-2023 Thin prep Papanicolaou smear with manual screening 7 5-15 [facility] Glucose Glucometer (BldC) [M ass/Vol]Ordered By: Romie Tuttle on 04-13-2023 Glucose [Mass/Vol] 175 mg/dL 74-106 [facility] Comment on above: MANAGEMENT OF PATIEN T CARE PER NURSING PROTOCOL Absolute lymphocyte countOrd ered By: Romie Tuttle on 04-12-2023 Lymphocytes Auto (Unsp spec) [#/Vol] 1.58 10*3/uL 0.83-4.51 [facility] Basophil percentageOrdered B y: Romie Tuttle on 04-12-2023 Basophil percentage 3.8 mg/dL 2.5-4.9 [facility] Basophils/100 WBC (Bld) 0.9 % 0-1 [facility] Chloride [Moles/Vol] 114 mmol/L 98-107 [facility] Eosinophils/100 WBC (Bld) 4.3 % 0-5 [facility] Glucose [Mass/Vol] 132 mg/dL 74-106 [facility] Comment on above: Fasting Glucose resu lt greater than or equal to 126 mg/dL suggests DIABETES MELLITUS per A.D.A. criteria. Neutrophils (Bld) [#/Vol] 5.7 10*3/uL 2.0-7.7 [facility] Neutrophils/100 WBC (Bld) 66.9 % 47-70 [facility] Potassium [Moles/Vol] 3.9 mmol/L 3.5-5.1 [facility] Sodium [Moles/Vol] 143 mmol/L 136-145 [facility] WBC (Bld) [#/Vol] 8.6 10*3/uL 4.4-11.0 [facility] Blood erythrocytes count (nu mber/volume)Ordered By: Romie Tuttle on 04-12-2023 RBC (Bld) [#/Vol] 4.07 10*6/uL 4.6-6.2 [facility] Blood hemoglobin measurement (mass/volume)Ordered By: Romie Tuttle on 04-12-2023 Hemoglobin (Bld) [Mass/Vol] 11.8 g/dL 13.0-16.5 [facility] Blood lymphocytes/100 leukoc ytesOrdered By: Romie Tuttle on 04-12-2023 Lymphocytes/100 WBC (Bld) 18.5 % 19-41 [facility] Blood monocytes/100 leukocyt esOrdered By: Romie Tuttle on 04-12-2023 Monocytes/100 WBC (Bld) 9.0 % 0-10 [facility] Blood platelet mean volumeOr dered By: Romie Tuttle on 04-12-2023 Platelet mean volume (Bld) [Entitic vol] 10.5 fL 6.2-12.0 [facility] Determination of erythrocyte mean corpuscular volume (MCV)Ordered By: Romie Tuttle on 04-12-2023 MCV (RBC) [Entitic vol] 88.5 fL 80-94 [facility] Glucose Glucometer (BldC) [M ass/Vol]Ordered By: Romie Tuttle on 04-12-2023 Glucose [Mass/Vol] 130 mg/dL 74-106 [facility] Comment on above: MANAGEMENT OF PATIEN T CARE PER NURSING PROTOCOL Hematocrit Auto (Bld) [Volum e fraction]Ordered By: Romie Tuttle on 04-12-2023 Hematocrit (Bld) [Volume fraction] 36.0 % 40-54 [facility] Laboratory - Chemistry and C hemistry - challengeOrdered By: Romie Tuttle on 04-12-2023 CO2 [Moles/Vol] 23.0 mmol/L 21.0-32.0 [facility] Magnesium [Mass/Vol] 2.3 mg/dL 1.6-2.6 [facility] Urea nitrogen/Creatinine [Mass ratio] 19.5 mg/mg 10-20 [facility] Laboratory - Hematology and Cell countsOrdered By: Romie Tuttle on 04-12-2023 Erythrocyte distribution width (RBC) [Entitic vol] 44.4 fL 35.1-43.9 [facility] Erythrocyte distribution width (RBC) [Ratio] 13.7 % 11.6-14.6 [facility] Immature granulocytes/100 WBC (Bld) 0.400 % 0.0-0.9 [facility] Comment on above: IG% - Immature Granu locytes (promyelocytes, myelocytes and metamyelocytes) > 1% indicates that a LEFT SHIFT is Present. MCH (RBC) [Entitic mass] 29.0 pg 27.0-32.0 [facility] Nucleated RBC/100 WBC (Bld) [Ratio] 0 % 0-5 [facility] MCHC Auto (RBC) [Mass/Vol]Or dered By: Romie Tuttle on 04-12-2023 MCHC (RBC) [Mass/Vol] 32.8 g/dL 32-36 [facility] No Panel InformationOrdered By: Romie Tuttle on 04-12-2023 Estimated Creatinine Clearance Calc 48.73 ml/min [facility] Estimated GFR (MDRD) Amer 68 mL/min >60 [facility] Comment on above: GFR Calc Estimated GFR (MDRD) Non-Af Amer 56 mL/min >60 [facility] Comment on above: Non- GFR Calc Platelets bldOrdered By: Denis Tuttle on 04-12-2023 Platelets (Bld) [#/Vol] 243 10*3/uL 150-450 [facility] Serum or plasma calcium jennifer urement (mass/volume)Ordered By: Romie Tuttle on 04-12-2023 Calcium [Mass/Vol] 8.5 mg/dL 8.5-10.1 [facility] Serum or plasma creatinine m easurement (mass/volume)Ordered By: Romie Tuttle on 04-12-2023 Creatinine [Mass/Vol] 1.33 mg/dL 0.70-1.30 [facility] Comment on above: The validity of the calculated GFR & GFRAA in patients over 70 years has not been determined. Clinical correlation is essential. Serum or plasma urea nitroge n measurement (mass/volume)Ordered By: Romie Tuttle on 04-12-2023 Urea nitrogen [Mass/Vol] 26 mg/dL 7-18 [facility] Thin prep Papanicolaou smear with manual screeningOrdered By: Romie Tuttle on 04-12-2023 Thin prep Papanicolaou smear with manual screening 6 5-15 [facility] Basophil percentageOrdered B y: Bo Albert on 04-11-2023 Bilirubin [Mass/Vol] 0.40 mg/dL 0.20-1.00 [facility] Comment on above: For patients on eltr ombopag therapy, use of Dimension Crystal TBIL is not recommended. Cholesterol [Mass/Vol] 164 mg/dL <200 [facility] Comment on above: <200 mg/dL Desirable 200-240 mg/dL Borderline >240 mg/dL High Risk Protein [Mass/Vol] 6.7 g/dL 6.4-8.2 [facility] Triglyceride [Mass/Vol] 208 mg/dL <199 [facility] Comment on above: The drugs N-Acetylcy steine and Metamizole may falsely depress this assay.Serum Triglycerides Reference Interval Normal <150 mg/dL Borderline high 150 - 199 mg/dL High 200 - 499 mg/dL Very High > or = 500 mg/dL Laboratory - Chemistry and C hemistry - challengeOrdered By: Bo Albert on 04-11-2023 ALP [Catalytic activity/Vol] 51 U/L 45-117 [facility] ALT [Catalytic activity/Vol] 71 U/L 16-61 [facility] Globulin (S) [Mass/Vol] 3.2 g/dL 2.2-4.2 [facility] Serum or plasma albumin jennifer urement (mass/volume)Ordered By: Bo Albert on 04-11-2023 Albumin [Mass/Vol] 3.5 g/dL 3.2-5.0 [facility] Serum or plasma albumin/glob ulin mass ratioOrdered By: Bo Albert on 04-11-2023 Albumin/Globulin [Mass ratio] 1.1 {ratio} 0.9-2.4 [facility] Serum or plasma cholesterol in HDL measurement (mass/volume)Ordered By: Bo Albert on 04-11-2023 Cholesterol in HDL [Mass/Vol] 28 mg/dL >40 [facility] Comment on above: The drugs N-Acetylcy steine and Metamizole may falsely depress this assay. Reference Range HDL <40 mg/dL Low HDL Cholesterol HDL >or= 60 mg/dL High HDL Cholesterol Serum or plasma cholesterol in VLDL measurement (mass/volume)Ordered By: Bo Albert on 04-11-2023 Cholesterol in VLDL [Mass/Vol] 42 mg/dL 5-40 [facility] Serum or plasma low density lipoprotein (LDL) cholesterol measurement (mass/volume)Ordered By: Bo Albert on 04-11-2023 Cholesterol in LDL [Mass/Vol] 94 mg/dL 0-130 [facility] Thin prep Papanicolaou smear with manual screeningOrdered By: Bo Albert on 04-11-2023 Thin prep Papanicolaou smear with manual screening 404 U/L 15-37 [facility] Absolute lymphocyte countOrd ered By: Nicanor Martinez on 04-10-2023 Lymphocytes Auto (Unsp spec) [#/Vol] 1.62 10*3/uL 0.83-4.51 [facility] Basophil percentageOrdered B y: Nicanor Martinez on 04-10-2023 Basophils/100 WBC (Bld) 1.1 % 0-1 [facility] Bilirubin [Mass/Vol] 0.20 mg/dL 0.20-1.00 [facility] Comment on above: For patients on eltr ombopag therapy, use of Dimension Crystal TBIL is not recommended. Chloride [Moles/Vol] 108 mmol/L 98-107 [facility] Eosinophils/100 WBC (Bld) 4.8 % 0-5 [facility] Glucose [Mass/Vol] 201 mg/dL 74-106 [facility] Comment on above: Glucose result great er than or equal to 200 mg/dLsuggests DIABETES MELLITUS per A.D.A. criteria. Neutrophils (Bld) [#/Vol] 4.8 10*3/uL 2.0-7.7 [facility] Neutrophils/100 WBC (Bld) 64.1 % 47-70 [facility] Potassium [Moles/Vol] 3.9 mmol/L 3.5-5.1 [facility] Protein [Mass/Vol] 7.1 g/dL 6.4-8.2 [facility] Sodium [Moles/Vol] 139 mmol/L 136-145 [facility] WBC (Bld) [#/Vol] 7.5 10*3/uL 4.4-11.0 [facility] Blood erythrocytes count (nu mber/volume)Ordered By: Nicanor Martinez on 04-10-2023 RBC (Bld) [#/Vol] 4.10 10*6/uL 4.6-6.2 [facility] [place] Blood hemoglobin measurement (mass/volume)Ordered By: Nicanor Martinez on 04-10-2023 Hemoglobin (Bld) [Mass/Vol] 12.2 g/dL 13.0-16.5 [facility] Blood lymphocytes/100 leukoc ytesOrdered By: Nicanor Martinez on 04-10-2023 Lymphocytes/100 WBC (Bld) 21.7 % 19-41 [facility] Blood monocytes/100 leukocyt esOrdered By: Nicanor Martinez on 04-10-2023 Monocytes/100 WBC (Bld) 8.0 % 0-10 [facility] Blood platelet mean volumeOr dered By: Nicanor Martinez on 04-10-2023 Platelet mean volume (Bld) [Entitic vol] 10.2 fL 6.2-12.0 [facility] Determination of erythrocyte mean corpuscular volume (MCV)Ordered By: Nicanor Martinez on 04-10-2023 MCV (RBC) [Entitic vol] 88.3 fL 80-94 [facility] Direct bilirubinOrdered By: Nicanor Martinez on 04-10-2023 Bilirubin.direct [Mass/Vol] 0.10 mg/dL 0.00-0.30 [facility] Hematocrit Auto (Bld) [Volum e fraction]Ordered By: Nicanor Martinez on 04-10-2023 Hematocrit (Bld) [Volume fraction] 36.2 % 40-54 [facility] INR in Blood by Coagulation assayOrdered By: Nicanor Martinez on 04-10-2023 INR Coag (Bld) [Relative time] 1.0 {INR} [facility] Laboratory - Chemistry and C hemistry - challengeOrdered By: Nicanor Martinez on 04-10-2023 ALP [Catalytic activity/Vol] 52 U/L 45-117 [facility] ALT [Catalytic activity/Vol] 22 U/L 16-61 [facility] CO2 [Moles/Vol] 23.0 mmol/L 21.0-32.0 [facility] Globulin (S) [Mass/Vol] 3.4 g/dL 2.2-4.2 [facility] Lipase [Catalytic activity/Vol] 338 U/L 13-75 [facility] Comment on above: Please note:LIPASE r evised reference range effective 22. New Lipase methodology. Expected to produce lower values than the previous assay method. NEW Reference Range: 13 - 75 U/L Natriuretic peptide B (Bld) [Mass/Vol] 7.0 pg/mL 0-100 [facility] Urea nitrogen/Creatinine [Mass ratio] 21.6 mg/mg 10-20 [facility] Laboratory - CoagulationOrde red By: Nicanor Martinez on 04-10-2023 aPTT Coag (Bld) [Time] 26.4 s 24.1-36.2 [facility] PT Coag (PPP) [Time] 13.3 s 11.7-14.9 [facility] Laboratory - Hematology and Cell countsOrdered By: Nicanor Martinez on 04-10-2023 Erythrocyte distribution width (RBC) [Entitic vol] 43.6 fL 35.1-43.9 [facility] Erythrocyte distribution width (RBC) [Ratio] 13.5 % 11.6-14.6 [facility] Immature granulocytes/100 WBC (Bld) 0.300 % 0.0-0.9 [facility] Comment on above: IG% - Immature Granu locytes (promyelocytes, myelocytes and metamyelocytes) > 1% indicates that a LEFT SHIFT is Present. MCH (RBC) [Entitic mass] 29.8 pg 27.0-32.0 [facility] Nucleated RBC/100 WBC (Bld) [Ratio] 0 % 0-5 [facility] MCHC Auto (RBC) [Mass/Vol]Or dered By: Nicanor Martinez on 04-10-2023 MCHC (RBC) [Mass/Vol] 33.7 g/dL 32-36 [facility] No Panel InformationOrdered By: Bo Albert on 04-10-2023 Activated Clotting Time 201 sec 74-137 [facility] No Panel InformationOrdered By: Nicanor Martinez on 04-10-2023 Troponin I High Sensitivity 268 pg/mL 3.0-78.0 [facility] Comment on above: Critical Result(s) C alled at: 12:23:48 04/10/2023 by: Johan Rey. Eyal Koo RN (ER). Results read back by same. Please Note: New Test Units and Gender Specific Reference Ranges. For more information see Policy Stat Procedure Crystal High Sensitivity Troponin (TNIH) and attachments. Estimated Creatinine Clearance Calc 42.36 ml/min [facility] Estimated GFR (MDRD) Amer 58 mL/min >60 [facility] Comment on above: GFR Calc Estimated GFR (MDRD) Non-Af Amer 48 mL/min >60 [facility] Comment on above: Non- GFR Calc Platelets bldOrdered By: Bud Martinez on 04-10-2023 Platelets (Bld) [#/Vol] 281 10*3/uL 150-450 [facility] Serum or plasma albumin jennifer urement (mass/volume)Ordered By: Nicanor Martinez on 04-10-2023 Albumin [Mass/Vol] 3.7 g/dL 3.2-5.0 [facility] Serum or plasma calcium jennifer urement (mass/volume)Ordered By: Nicanor Martinez on 04-10-2023 Calcium [Mass/Vol] 9.2 mg/dL 8.5-10.1 [facility] Serum or plasma creatinine m easurement (mass/volume)Ordered By: Nicanor Martinez on 04-10-2023 Creatinine [Mass/Vol] 1.53 mg/dL 0.70-1.30 [facility] Comment on above: The validity of the calculated GFR & GFRAA in patients over 70 years has not been determined. Clinical correlation is essential. Serum or plasma urea nitroge n measurement (mass/volume)Ordered By: Nicanor Martinez on 04-10-2023 Urea nitrogen [Mass/Vol] 33 mg/dL 7-18 [facility] Thin prep Papanicolaou smear with manual screeningOrdered By: Nicanor Martinez on 04-10-2023 Thin prep Papanicolaou smear with manual screening 10 U/L 15-37 [facility] Thin prep Papanicolaou smear with manual screening 8 5-15 [facility] Basophil percentageOrdered B y: Tone Horton on 04-06-2023 Chloride [Moles/Vol] 107 mmol/L 98-107 [facility] Glucose [Mass/Vol] 224 mg/dL 74-106 [facility] Comment on above: Glucose result great er than or equal to 200 mg/dLsuggests DIABETES MELLITUS per A.D.A. criteria. Potassium [Moles/Vol] 4.2 mmol/L 3.5-5.1 [facility] Sodium [Moles/Vol] 139 mmol/L 136-145 [facility] Laboratory - Chemistry and C hemistry - challengeOrdered By: Tone Horton on 04-06-2023 CO2 [Moles/Vol] 25.0 mmol/L 21.0-32.0 [facility] Urea nitrogen/Creatinine [Mass ratio] 21.6 mg/mg 10-20 [facility] No Panel InformationOrdered By: Tone Horton on 04-06-2023 Estimated GFR (MDRD) Amer 64 mL/min >60 [facility] Comment on above: GFR Calc Estimated GFR (MDRD) Non-Af Amer 53 mL/min >60 [facility] Comment on above: Non- GFR Calc Serum or plasma calcium jennifer urement (mass/volume)Ordered By: Tone Horton on 04-06-2023 Calcium [Mass/Vol] 8.6 mg/dL 8.5-10.1 [facility] Serum or plasma creatinine m easurement (mass/volume)Ordered By: Tone Horton on 04-06-2023 Creatinine [Mass/Vol] 1.39 mg/dL 0.70-1.30 [facility] Comment on above: The validity of the calculated GFR & GFRAA in patients over 70 years has not been determined. Clinical correlation is essential. Serum or plasma urea nitroge n measurement (mass/volume)Ordered By: Tone Horton on 04-06-2023 Urea nitrogen [Mass/Vol] 30 mg/dL 7-18 [facility] Thin prep Papanicolaou smear with manual screeningOrdered By: Tone Horton on 04-06-2023 Thin prep Papanicolaou smear with manual screening 7 5-15 [facility] Basophil percentageOrdered B y: Tone Horton on 03-15-2023 Bilirubin [Mass/Vol] 0.30 mg/dL 0.20-1.00 [facility] Comment on above: For patients on eltr ombopag therapy, use of Dimension Crystal TBIL is not recommended. Chloride [Moles/Vol] 107 mmol/L 98-107 [facility] Cholesterol [Mass/Vol] 145 mg/dL <200 [facility] Comment on above: <200 mg/dL Desirable 200-240 mg/dL Borderline >240 mg/dL High Risk Glucose [Mass/Vol] 117 mg/dL 74-106 [facility] Comment on above: Fasting Glucose resu lt from 100 to 125 mg/dL suggests IMPAIRED HOMEOSTASIS per A.D.A. criteria. Potassium [Moles/Vol] 4.1 mmol/L 3.5-5.1 [facility] Protein [Mass/Vol] 7.1 g/dL 6.4-8.2 [facility] Sodium [Moles/Vol] 138 mmol/L 136-145 [facility] Triglyceride [Mass/Vol] 176 mg/dL <199 [facility] Comment on above: The drugs N-Acetylcy steine and Metamizole may falsely depress this assay.Serum Triglycerides Reference Interval Normal <150 mg/dL Borderline high 150 - 199 mg/dL High 200 - 499 mg/dL Very High > or = 500 mg/dL Laboratory - Chemistry and C hemistry - challengeOrdered By: Tone Horton on 03-15-2023 ALP [Catalytic activity/Vol] 52 U/L 45-117 [facility] ALT [Catalytic activity/Vol] 26 U/L 16-61 [facility] CK [Catalytic activity/Vol] 208 U/L 39-308 [facility] CO2 [Moles/Vol] 26.0 mmol/L 21.0-32.0 [facility] Globulin (S) [Mass/Vol] 3.4 g/dL 2.2-4.2 [facility] Urea nitrogen/Creatinine [Mass ratio] 23.3 mg/mg 10-20 [facility] No Panel InformationOrdered By: Tone Horton on 03-15-2023 Estimated GFR (MDRD) Amer 70 mL/min >60 [facility] Comment on above: GFR Calc Estimated GFR (MDRD) Non-Af Amer 58 mL/min >60 [facility] Comment on above: Non- GFR Calc Thyroid Stimulating Hormone (TSH) 3.98 uIU/mL 0.358-3.74 [facility] Urine Microalbumin/Creatinine Ratio 204.5 mg/g CRE <30 [facility] Serum or plasma albumin jennifer urement (mass/volume)Ordered By: Tone Horton on 03-15-2023 Albumin [Mass/Vol] 3.7 g/dL 3.2-5.0 [facility] Serum or plasma albumin/glob ulin mass ratioOrdered By: Tone Horton on 03-15-2023 Albumin/Globulin [Mass ratio] 1.1 {ratio} 0.9-2.4 [facility] Serum or plasma calcium jennifer urement (mass/volume)Ordered By: Tone Horton on 03-15-2023 Calcium [Mass/Vol] 8.8 mg/dL 8.5-10.1 [facility] Serum or plasma cholesterol in HDL measurement (mass/volume)Ordered By: Tone Horton on 03-15-2023 Cholesterol in HDL [Mass/Vol] 31 mg/dL >40 [facility] Comment on above: The drugs N-Acetylcy steine and Metamizole may falsely depress this assay. Reference Range HDL <40 mg/dL Low HDL Cholesterol HDL >or= 60 mg/dL High HDL Cholesterol Serum or plasma cholesterol in VLDL measurement (mass/volume)Ordered By: Tone Horton on 03-15-2023 Cholesterol in VLDL [Mass/Vol] 35 mg/dL 5-40 [facility] Serum or plasma creatinine m easurement (mass/volume)Ordered By: Tone Horton on 03-15-2023 Creatinine [Mass/Vol] 1.29 mg/dL 0.70-1.30 [facility] Comment on above: The validity of the calculated GFR & GFRAA in patients over 70 years has not been determined. Clinical correlation is essential. Serum or plasma low density lipoprotein (LDL) cholesterol measurement (mass/volume)Ordered By: Tone Horton on 03-15-2023 Cholesterol in LDL [Mass/Vol] 79 mg/dL 0-130 [facility] Serum or plasma urea nitroge n measurement (mass/volume)Ordered By: Tone Horton on 03-15-2023 Urea nitrogen [Mass/Vol] 30 mg/dL 7-18 [facility] Thin prep Papanicolaou smear with manual screeningOrdered By: Tone Horton on 03-15-2023 Thin prep Papanicolaou smear with manual screening 16 U/L 15-37 [facility] Thin prep Papanicolaou smear with manual screening 5 5-15 [facility] Thin prep Papanicolaou smear with manual screening 117.0 mg/L NO RANGE EST. [facility] Urine creatinine measurement (mass/volume)Ordered By: Tone Horton on 03-15-2023 Creatinine (U) [Mass/Vol] 57.20 mg/dL NO RANGE EST. [facility] Whole blood hemoglobin A1c/t otal hemoglobin ratio (mass fraction)Ordered By: Tone Horton on 03-15-2023 HbA1c (Bld) [Mass fraction] 5.9 % 3.8-5.6 [facility] Comment on above: Normal < 5.7 % Predi abetic 5.7 - 6.4 % Diabetic >or= 6.5 % Please note range changes. Glucose Glucometer (BldC) [M ass/Vol]Ordered By: Yash Estrada on 02-16-2023 Glucose [Mass/Vol] 99 mg/dL 74-106 [facility] Comment on above: MANAGEMENT OF PATIEN T CARE PER NURSING PROTOCOL Basophil percentageOrdered B y: Tone Horton on 12-17-2022 Bilirubin [Mass/Vol] 0.30 mg/dL 0.20-1.00 [facility] Comment on above: For patients on eltr ombopag therapy, use of Dimension Crystal TBIL is not recommended. Chloride [Moles/Vol] 110 mmol/L 98-107 [facility] Glucose [Mass/Vol] 109 mg/dL 74-106 [facility] Comment on above: Fasting Glucose resu lt from 100 to 125 mg/dL suggests IMPAIRED HOMEOSTASIS per A.D.A. criteria. Potassium [Moles/Vol] 4.1 mmol/L 3.5-5.1 [facility] Protein [Mass/Vol] 7.3 g/dL 6.4-8.2 [facility] Sodium [Moles/Vol] 140 mmol/L 136-145 [facility] Laboratory - Chemistry and C hemistry - challengeOrdered By: Tone Horton on 12-17-2022 ALP [Catalytic activity/Vol] 60 U/L 45-117 [facility] ALT [Catalytic activity/Vol] 23 U/L 16-61 [facility] CO2 [Moles/Vol] 25.0 mmol/L 21.0-32.0 [facility] Globulin (S) [Mass/Vol] 3.6 g/dL 2.2-4.2 [facility] Urea nitrogen/Creatinine [Mass ratio] 22.5 mg/mg 10-20 [facility] No Panel InformationOrdered By: Tone Horton on 12-17-2022 Estimated GFR (MDRD) Amer 70 mL/min >60 [facility] Comment on above: GFR Calc Estimated GFR (MDRD) Non-Af Amer 58 mL/min >60 [facility] Comment on above: Non- GFR Calc No Panel InformationOrdered By: Heladio Archibald on 12-17-2022 Prostate Specific Antigen Total < 0.01 ng/mL 0.0-4.0 [facility] Comment on above: This test was perfor med using the TPSA assay method for [employer] chemistry system. Values obtained with differentassay methods cannot be used interchangably.When changing PSA assays in the course of monitoring apatient, additional sequential testing should be carriedout to confirm baseline values. Serum or plasma albumin jennifer urement (mass/volume)Ordered By: Tone Horton on 12-17-2022 Albumin [Mass/Vol] 3.7 g/dL 3.2-5.0 [facility] Serum or plasma albumin/glob ulin mass ratioOrdered By: [facility] on 12-17-2022 Albumin/Globulin [Mass ratio] 1.0 {ratio} 0.9-2.4 [facility] Serum or plasma calcium jennifer urement (mass/volume)Ordered By: Tone Horton on 12-17-2022 Calcium [Mass/Vol] 9.0 mg/dL 8.5-10.1 [facility] Serum or plasma creatinine m easurement (mass/volume)Ordered By: [facility] on 12-17-2022 Creatinine [Mass/Vol] 1.29 mg/dL 0.70-1.30 [facility] Comment on above: The validity of the calculated GFR & GFRAA in patients over 70 years has not been determined. Clinical correlation is essential. Serum or plasma urea nitroge n measurement (mass/volume)Ordered By: Tone Horton on 12-17-2022 Urea nitrogen [Mass/Vol] 29 mg/dL 7-18 [facility] Thin prep Papanicolaou smear with manual screeningOrdered By: Tone [facility] on 12-17-2022 Thin prep Papanicolaou smear with manual screening 9 U/L 15-37 [facility] Thin prep Papanicolaou smear with manual screening 5 5-15 [facility] Whole blood hemoglobin A1c/t otal hemoglobin ratio (mass fraction)Ordered By: Tone Horton on 12-17-2022 HbA1c (Bld) [Mass fraction] 6.2 % 3.8-5.6 [facility] Comment on above: Normal < 5.7 % Predi abetic 5.7 - 6.4 % Diabetic >or= 6.5 % Please note range changes. Glucose Glucometer (BldC) [M ass/Vol]Ordered By: Markell Mitchell on 12-08-2022 Glucose [Mass/Vol] 121 mg/dL 74-106 [facility] Comment on above: MANAGEMENT OF PATIEN T CARE PER NURSING PROTOCOL Absolute lymphocyte countOrd ered By: Markell Mitchell on 12-07-2022 Lymphocytes Auto (Unsp spec) [#/Vol] 1.05 10*3/uL 0.83-4.51 [facility] Basophil percentageOrdered B y: Markell Mitchell on 12-07-2022 Basophils/100 WBC (Bld) 0.5 % 0-1 [facility] Bilirubin [Mass/Vol] 0.20 mg/dL 0.20-1.00 [facility] Comment on above: For patients on eltr ombopag therapy, use of Dimension Crystal TBIL is not recommended. Chloride [Moles/Vol] 112 mmol/L 98-107 [facility] Eosinophils/100 WBC (Bld) 0.2 % 0-5 [facility] Glucose [Mass/Vol] 126 mg/dL 74-106 [facility] Comment on above: Fasting Glucose resu lt greater than or equal to 126 mg/dL suggests DIABETES MELLITUS per A.D.A. criteria. Neutrophils (Bld) [#/Vol] 10.7 10*3/uL 2.0-7.7 [facility] Neutrophils/100 WBC (Bld) 82.4 % 47-70 [facility] Potassium [Moles/Vol] 3.9 mmol/L 3.5-5.1 [facility] Protein [Mass/Vol] 7.2 g/dL 6.4-8.2 [facility] Sodium [Moles/Vol] 144 mmol/L 136-145 [facility] WBC (Bld) [#/Vol] 12.9 10*3/uL 4.4-11.0 [facility] [place] Blood erythrocytes count (nu mber/volume)Ordered By: Markell Mitchell on 12-07-2022 RBC (Bld) [#/Vol] 3.83 10*6/uL 4.6-6.2 [facility] Blood hemoglobin measurement (mass/volume)Ordered By: Markell Mitchell on 12-07-2022 Hemoglobin (Bld) [Mass/Vol] 11.4 g/dL 13.0-16.5 [facility] Blood lymphocytes/100 leukoc ytesOrdered By: Markell Mitchell on 12-07-2022 Lymphocytes/100 WBC (Bld) 8.1 % 19-41 [facility] Blood monocytes/100 leukocyt esOrdered By: Markell Mitchell on 12-07-2022 Monocytes/100 WBC (Bld) 8.3 % 0-10 [facility] Blood platelet mean volumeOr dered By: Markell Mitchell on 12-07-2022 Platelet mean volume (Bld) [Entitic vol] 9.7 fL 6.2-12.0 [facility] Determination of erythrocyte mean corpuscular volume (MCV)Ordered By: Markell Mitchell on 12-07-2022 MCV (RBC) [Entitic vol] 88.0 fL 80-94 [facility] Hematocrit Auto (Bld) [Volum e fraction]Ordered By: Markell Mitchell on 12-07-2022 Hematocrit (Bld) [Volume fraction] 33.7 % 40-54 [facility] Laboratory - Chemistry and C hemistry - challengeOrdered By: Markell Mitchell on 12-07-2022 ALP [Catalytic activity/Vol] 53 U/L 45-117 [facility] ALT [Catalytic activity/Vol] 33 U/L 16-61 [facility] CO2 [Moles/Vol] 25.0 mmol/L 21.0-32.0 [facility] Globulin (S) [Mass/Vol] 3.6 g/dL 2.2-4.2 [facility] Urea nitrogen/Creatinine [Mass ratio] 18.8 mg/mg 10-20 [facility] Laboratory - Hematology and Cell countsOrdered By: Markell Mitchell on 12-07-2022 Erythrocyte distribution width (RBC) [Entitic vol] 42.9 fL 35.1-43.9 [facility] Erythrocyte distribution width (RBC) [Ratio] 13.2 % 11.6-14.6 [facility] Immature granulocytes/100 WBC (Bld) 0.500 % 0.0-0.9 [facility] Comment on above: IG% - Immature Granu locytes (promyelocytes, myelocytes and metamyelocytes) > 1% indicates that a LEFT SHIFT is Present. MCH (RBC) [Entitic mass] 29.8 pg 27.0-32.0 [facility] Nucleated RBC/100 WBC (Bld) [Ratio] 0 % 0-5 [facility] MCHC Auto (RBC) [Mass/Vol]Or dered By: Markell Mitchell on 12-07-2022 MCHC (RBC) [Mass/Vol] 33.8 g/dL 32-36 [facility] No Panel InformationOrdered By: Markell Mitchell on 12-07-2022 Estimated Creatinine Clearance Calc 49.47 ml/min [facility] Estimated GFR (MDRD) Amer 68 mL/min >60 [facility] Comment on above: GFR Calc Estimated GFR (MDRD) Non-Af Amer 56 mL/min >60 [facility] Comment on above: Non- GFR Calc Platelets bldOrdered By: Jalen Mitchell on 12-07-2022 Platelets (Bld) [#/Vol] 315 10*3/uL 150-450 [facility] Serum or plasma albumin jennifer urement (mass/volume)Ordered By: Markell Mitchell on 12-07-2022 Albumin [Mass/Vol] 3.6 g/dL 3.2-5.0 [facility] Serum or plasma albumin/glob ulin mass ratioOrdered By: Markell Mitchell on 12-07-2022 Albumin/Globulin [Mass ratio] 1.0 {ratio} 0.9-2.4 [facility] Serum or plasma calcium jennifer urement (mass/volume)Ordered By: Markell Mitchell on 12-07-2022 Calcium [Mass/Vol] 8.7 mg/dL 8.5-10.1 [facility] Serum or plasma creatinine m easurement (mass/volume)Ordered By: Markell Mitchell on 12-07-2022 Creatinine [Mass/Vol] 1.33 mg/dL 0.70-1.30 [facility] Comment on above: The validity of the calculated GFR & GFRAA in patients over 70 years has not been determined. Clinical correlation is essential. Serum or plasma urea nitroge n measurement (mass/volume)Ordered By: Markell Mitchell on 12-07-2022 Urea nitrogen [Mass/Vol] 25 mg/dL 7-18 [facility] Thin prep Papanicolaou smear with manual screeningOrdered By: Markell Mitchell on 12-07-2022 Thin prep Papanicolaou smear with manual screening 21 U/L 15-37 [facility] Thin prep Papanicolaou smear with manual screening 7 5-15 [facility] Whole blood hemoglobin A1c/t otal hemoglobin ratio (mass fraction)Ordered By: Won Webster on 12-07-2022 HbA1c (Bld) [Mass fraction] 6.3 % 3.8-5.6 [facility] Comment on above: Normal < 5.7 % Predi abetic 5.7 - 6.4 % Diabetic >or= 6.5 % Please note range changes. Absolute lymphocyte countOrd ered By: Terri Sue on 12-06-2022 Lymphocytes Auto (Unsp spec) [#/Vol] 1.98 10*3/uL 0.83-4.51 [facility] Basophil percentageOrdered B y: Terri Sue on 12-06-2022 Basophil percentage 0-5 SEEN /hpf 0-5 [facility] Basophils/100 WBC (Bld) 1.0 % 0-1 [facility] Bilirubin [Mass/Vol] 0.30 mg/dL 0.20-1.00 [facility] Comment on above: For patients on eltr ombopag therapy, use of Dimension Crystal TBIL is not recommended. Chloride [Moles/Vol] 107 mmol/L 98-107 [facility] Eosinophils/100 WBC (Bld) 4.1 % 0-5 [facility] Glucose [Mass/Vol] 124 mg/dL 74-106 [facility] Comment on above: Fasting Glucose resu lt from 100 to 125 mg/dL suggests IMPAIRED HOMEOSTASIS per A.D.A. criteria. Neutrophils (Bld) [#/Vol] 6.2 10*3/uL 2.0-7.7 [facility] Neutrophils/100 WBC (Bld) 65.8 % 47-70 [facility] Potassium [Moles/Vol] 4.1 mmol/L 3.5-5.1 [facility] Protein [Mass/Vol] 8.2 g/dL 6.4-8.2 [facility] Sodium [Moles/Vol] 141 mmol/L 136-145 [facility] WBC (Bld) [#/Vol] 9.4 10*3/uL 4.4-11.0 [facility] Bilirubin Test strip Ql (U)O rdered By: Terri Sue on 12-06-2022 Bilirubin Ql (U) Negative Negative [facility] Blood erythrocytes count (nu mber/volume)Ordered By: Terri Sue on 12-06-2022 RBC (Bld) [#/Vol] 4.29 10*6/uL 4.6-6.2 [facility] Blood hemoglobin measurement (mass/volume)Ordered By: Terri Sue on 12-06-2022 Hemoglobin (Bld) [Mass/Vol] 12.4 g/dL 13.0-16.5 [facility] Blood lymphocytes/100 leukoc ytesOrdered By: Terri Sue on 12-06-2022 Lymphocytes/100 WBC (Bld) 21.0 % 19-41 [facility] Blood monocytes/100 leukocyt esOrdered By: Terri Sue on 12-06-2022 Monocytes/100 WBC (Bld) 7.0 % 0-10 [facility] Blood platelet mean volumeOr dered By: Terri Sue on 12-06-2022 Platelet mean volume (Bld) [Entitic vol] 10.0 fL 6.2-12.0 [facility] Determination of erythrocyte mean corpuscular volume (MCV)Ordered By: Terri Sue on 12-06-2022 MCV (RBC) [Entitic vol] 88.8 fL 80-94 [facility] Hematocrit Auto (Bld) [Volum e fraction]Ordered By: Terri Sue on 12-06-2022 Hematocrit (Bld) [Volume fraction] 38.1 % 40-54 [facility] Ketones Test strip Ql (U)Ord ered By: Terri Sue on 12-06-2022 Ketones Ql (U) Negative Negative [facility] Laboratory - Chemistry and C hemistry - challengeOrdered By: Terri Sue on 12-06-2022 ALP [Catalytic activity/Vol] 59 U/L 45-117 [facility] ALT [Catalytic activity/Vol] 33 U/L 16-61 [facility] CO2 [Moles/Vol] 27.0 mmol/L 21.0-32.0 [facility] Globulin (S) [Mass/Vol] 4.0 g/dL 2.2-4.2 [facility] Lipase [Catalytic activity/Vol] 152 U/L 13-75 [facility] Comment on above: Please note:LIPASE r evised reference range effective 22. New Lipase methodology. Expected to produce lower values than the previous assay method. NEW Reference Range: 13 - 75 U/L Urea nitrogen/Creatinine [Mass ratio] 23.1 mg/mg 10-20 [facility] Laboratory - Hematology and Cell countsOrdered By: Terri Sue on 12-06-2022 Erythrocyte distribution width (RBC) [Entitic vol] 43.3 fL 35.1-43.9 [facility] Erythrocyte distribution width (RBC) [Ratio] 13.3 % 11.6-14.6 [facility] Immature granulocytes/100 WBC (Bld) 1.100 % 0.0-0.9 [facility] Comment on above: IG% - Immature Granu locytes (promyelocytes, myelocytes and metamyelocytes) > 1% indicates that a LEFT SHIFT is Present. MCH (RBC) [Entitic mass] 28.9 pg 27.0-32.0 [facility] Nucleated RBC/100 WBC (Bld) [Ratio] 0 % 0-5 [facility] MCHC Auto (RBC) [Mass/Vol]Or dered By: Terri Sue on 12-06-2022 MCHC (RBC) [Mass/Vol] 32.5 g/dL 32-36 [facility] Mucus LM Ql (Urine sed)Order ed By: Terri Sue on 12-06-2022 Mucus Ql (Urine sed) 0 SEEN /hpf [facility] Nitrite Test strip Ql (U)Ord ered By: Terri Sue on 12-06-2022 Nitrite Ql (U) Negative Negative [facility] No Panel InformationOrdered By: Terri Sue on 12-06-2022 Estimated Creatinine Clearance Calc 49.10 ml/min [facility] Estimated GFR (MDRD) Amer 67 mL/min >60 [facility] Comment on above: GFR Calc Estimated GFR (MDRD) Non-Af Amer 55 mL/min >60 [facility] Comment on above: Non- GFR Calc Platelets bldOrdered By: Jami Sue on 12-06-2022 Platelets (Bld) [#/Vol] 353 10*3/uL 150-450 [facility] Protein Test strip Ql (U)Ord ered By: Terri Sue on 12-06-2022 Protein Ql (U) 100 mg/dl Negative [facility] Serum or plasma albumin jennifer urement (mass/volume)Ordered By: eTrri Sue on 12-06-2022 Albumin [Mass/Vol] 4.2 g/dL 3.2-5.0 [facility] Serum or plasma albumin/glob ulin mass ratioOrdered By: Terri Sue on 12-06-2022 Albumin/Globulin [Mass ratio] 1.0 {ratio} 0.9-2.4 [facility] Serum or plasma calcium jennifer urement (mass/volume)Ordered By: Terri Sue on 12-06-2022 Calcium [Mass/Vol] 9.9 mg/dL 8.5-10.1 [facility] Serum or plasma creatinine m easurement (mass/volume)Ordered By: Terri Sue on 12-06-2022 Creatinine [Mass/Vol] 1.34 mg/dL 0.70-1.30 [facility] Comment on above: The validity of the calculated GFR & GFRAA in patients over 70 years has not been determined. Clinical correlation is essential. Serum or plasma urea nitroge n measurement (mass/volume)Ordered By: Terri Sue on 12-06-2022 Urea nitrogen [Mass/Vol] 31 mg/dL 7-18 [facility] Squamous epithelial cells de tection in urine sediment by light microscopyOrdered By: Terri Sue on 12-06-2022 Epithelial cells.squamous LM Ql (Urine sed) 0-5 SEEN /hpf 0-5 [facility] Thin prep Papanicolaou smear with manual screeningOrdered By: Terri Sue on 12-06-2022 Thin prep Papanicolaou smear with manual screening 16 U/L 15-37 [facility] Thin prep Papanicolaou smear with manual screening 7 5-15 [facility] Urine blood detectionOrdered By: Terri Sue on 12-06-2022 RBC Ql (U) 10 /ul Negative [facility] RBC Ql (U) 0-5 SEEN /hpf 0-5 [facility] Urine clarityOrdered By: Jami Sue on 12-06-2022 Clarity (U) Clear Clear [facility] Urine color determinationOrd ered By: Terri Sue on 12-06-2022 Color (U) Yellow Yellow [facility] Urine glucose detectionOrder ed By: Terri Sue on 12-06-2022 Glucose Ql (U) Normal mg/dl Normal [facility] Urine leukocyte esterase det ection by dipstickOrdered By: Terri Sue on 12-06-2022 Leukocyte esterase Test strip Ql (U) 25 /ul Negative [facility] Urine pHOrdered By: Terri arceo on 12-06-2022 pH (U) 8.0 [pH] 5.0 - 8.0 [facility] Urine sediment bacteria coun t by microscopy (number/high power field)Ordered By: Terri Sue on 12-06-2022 Bacteria LM.HPF (Urine sed) [#/Area] 0 /[HPF] None Seen [facility] Urine specific gravity measu rementOrdered By: Terri Sue on 12-06-2022 Specific gravity (U) [Rel density] 1.015 1.002-1.030 [facility] Urobilinogen Auto test strip Ql (U)Ordered By: Terri Sue on 12-06-2022 Urobilinogen Ql (U) Normal mg/dl Normal [facility] Absolute lymphocyte countOrd ered By: ED PROVIDER on 11-30-2022 Lymphocytes Auto (Unsp spec) [#/Vol] 1.53 10*3/uL 0.83-4.51 [facility] Basophil percentageOrdered B y: ED PROVIDER on 11-30-2022 Basophils/100 WBC (Bld) 0.9 % 0-1 [facility] Eosinophils/100 WBC (Bld) 6.2 % 0-5 [facility] Neutrophils (Bld) [#/Vol] 5.2 10*3/uL 2.0-7.7 [facility] Neutrophils/100 WBC (Bld) 63.7 % 47-70 [facility] WBC (Bld) [#/Vol] 8.1 10*3/uL 4.4-11.0 [facility] Basophil percentageOrdered B y: Leonides Arauz on 11-30-2022 Chloride [Moles/Vol] 107 mmol/L 98-107 [facility] Glucose [Mass/Vol] 125 mg/dL 74-106 [facility] Comment on above: Fasting Glucose resu lt from 100 to 125 mg/dL suggests IMPAIRED HOMEOSTASIS per A.D.A. criteria. Potassium [Moles/Vol] 4.3 mmol/L 3.5-5.1 [facility] Sodium [Moles/Vol] 139 mmol/L 136-145 [facility] Blood erythrocytes count (nu mber/volume)Ordered By: ED PROVIDER on 11-30-2022 RBC (Bld) [#/Vol] 4.09 10*6/uL 4.6-6.2 [facility] Blood hemoglobin measurement (mass/volume)Ordered By: ED PROVIDER on 11-30-2022 Hemoglobin (Bld) [Mass/Vol] 12.1 g/dL 13.0-16.5 [facility] Blood lymphocytes/100 leukoc ytesOrdered By: ED PROVIDER on 11-30-2022 Lymphocytes/100 WBC (Bld) 18.8 % 19-41 [facility] Blood monocytes/100 leukocyt esOrdered By: ED PROVIDER on 11-30-2022 Monocytes/100 WBC (Bld) 10.0 % 0-10 [facility] Blood platelet mean volumeOr dered By: ED PROVIDER on 11-30-2022 Platelet mean volume (Bld) [Entitic vol] 10.3 fL 6.2-12.0 [facility] Determination of erythrocyte mean corpuscular volume (MCV)Ordered By: ED PROVIDER on 11-30-2022 MCV (RBC) [Entitic vol] 89.5 fL 80-94 [facility] Hematocrit Auto (Bld) [Volum e fraction]Ordered By: ED PROVIDER on 11-30-2022 Hematocrit (Bld) [Volume fraction] 36.6 % 40-54 [facility] Laboratory - Chemistry and C hemistry - challengeOrdered By: Leonides Arauz on 11-30-2022 CO2 [Moles/Vol] 26.0 mmol/L 21.0-32.0 [facility] Urea nitrogen/Creatinine [Mass ratio] 14.2 mg/mg 10-20 [facility] Laboratory - Hematology and Cell countsOrdered By: ED PROVIDER on 11-30-2022 Erythrocyte distribution width (RBC) [Entitic vol] 44.5 fL 35.1-43.9 [facility] Erythrocyte distribution width (RBC) [Ratio] 13.4 % 11.6-14.6 [facility] Immature granulocytes/100 WBC (Bld) 0.400 % 0.0-0.9 [facility] Comment on above: IG% - Immature Granu locytes (promyelocytes, myelocytes and metamyelocytes) > 1% indicates that a LEFT SHIFT is Present. MCH (RBC) [Entitic mass] 29.6 pg 27.0-32.0 [facility] Nucleated RBC/100 WBC (Bld) [Ratio] 0 % 0-5 [facility] MCHC Auto (RBC) [Mass/Vol]Or dered By: ED PROVIDER on 11-30-2022 MCHC (RBC) [Mass/Vol] 33.1 g/dL 32-36 [facility] No Panel InformationOrdered By: Leonides Arauz on 11-30-2022 Troponin I High Sensitivity 8 pg/mL 3.0-78.0 [facility] Comment on above: Please Note: New Kajal t Units and Gender Specific Reference Ranges. For more information see Policy Stat Procedure Crystal High Sensitivity Troponin (TNIH) and attachments. Estimated Creatinine Clearance Calc 37.38 ml/min [facility] Estimated GFR (MDRD) Amer 49 mL/min >60 [facility] Comment on above: GFR Calc Estimated GFR (MDRD) Non-Af Amer 41 mL/min >60 [facility] Comment on above: Non- GFR Calc Platelets bldOrdered By: ED PROVIDER on 11-30-2022 Platelets (Bld) [#/Vol] 268 10*3/uL 150-450 [facility] Serum or plasma calcium jennifer urement (mass/volume)Ordered By: Leonides Arauz on 11-30-2022 Calcium [Mass/Vol] 9.3 mg/dL 8.5-10.1 [facility] Serum or plasma creatinine m easurement (mass/volume)Ordered By: Leonides Arauz on 11-30-2022 Creatinine [Mass/Vol] 1.76 mg/dL 0.70-1.30 [facility] Comment on above: The validity of the calculated GFR & GFRAA in patients over 70 years has not been determined. Clinical correlation is essential. Serum or plasma urea nitroge n measurement (mass/volume)Ordered By: Leonides Arauz on 11-30-2022 Urea nitrogen [Mass/Vol] 25 mg/dL -18 [facility] Thin prep Papanicolaou smear with manual screeningOrdered By: Leonides Arauz on 11-30-2022 Thin prep Papanicolaou smear with manual screening 6 -15 [facility] Basophil percentageOrdered B y: Dr. Horton on 09-15-2022 Bilirubin [Mass/Vol] 0.30 mg/dL 0.20-1.00 [facility] Comment on above: For patients on eltr ombopag therapy, use of Dimension Crystal TBIL is not recommended. Chloride [Moles/Vol] 110 mmol/L 98-107 [facility] Cholesterol [Mass/Vol] 192 mg/dL <200 [facility] Comment on above: <200 mg/dL Desirable 200-240 mg/dL Borderline >240 mg/dL High Risk Glucose [Mass/Vol] 112 mg/dL 74-106 [facility] Comment on above: Fasting Glucose resu lt from 100 to 125 mg/dL suggests IMPAIRED HOMEOSTASIS per A.D.A. criteria. Potassium [Moles/Vol] 4.0 mmol/L 3.5-5.1 [facility] Protein [Mass/Vol] 7.3 g/dL 6.4-8.2 [facility] Sodium [Moles/Vol] 141 mmol/L 136-145 [facility] Triglyceride [Mass/Vol] 253 mg/dL <199 [facility] Comment on above: The drugs N-Acetylcy steine and Metamizole may falsely depress this assay.Serum Triglycerides Reference Interval Normal <150 mg/dL Borderline high 150 - 199 mg/dL High 200 - 499 mg/dL Very High > or = 500 mg/dL Laboratory - Chemistry and C hemistry - challengeOrdered By: Dr. Horton on 09-15-2022 ALP [Catalytic activity/Vol] 49 U/L 45-117 [facility] ALT [Catalytic activity/Vol] 24 U/L 16-61 [facility] CK [Catalytic activity/Vol] 142 U/L 39-308 [facility] CO2 [Moles/Vol] 25.0 mmol/L 21.0-32.0 [facility] Globulin (S) [Mass/Vol] 3.4 g/dL 2.2-4.2 [facility] Urea nitrogen/Creatinine [Mass ratio] 27.2 mg/mg 10-20 [facility] No Panel InformationOrdered By: Dr. Horton on 09-15-2022 Estimated GFR (MDRD) Amer 66 mL/min >60 [facility] Comment on above: GFR Calc Estimated GFR (MDRD) Non-Af Amer 55 mL/min >60 [facility] Comment on above: Non- GFR Calc Thyroid Stimulating Hormone (TSH) 3.42 uIU/mL 0.358-3.74 [facility] Serum or plasma albumin jennifer urement (mass/volume)Ordered By: Dr. Horton on 09-15-2022 Albumin [Mass/Vol] 3.9 g/dL 3.2-5.0 [facility] Serum or plasma albumin/glob ulin mass ratioOrdered By: Dr. Horton on 09-15-2022 Albumin/Globulin [Mass ratio] 1.1 {ratio} 0.9-2.4 [facility] Serum or plasma calcium jennifer urement (mass/volume)Ordered By: Dr. Horton on 09-15-2022 Calcium [Mass/Vol] 9.3 mg/dL 8.5-10.1 [facility] Serum or plasma cholesterol in HDL measurement (mass/volume)Ordered By: Dr. Horton on 09-15-2022 Cholesterol in HDL [Mass/Vol] 27 mg/dL >40 [facility] Comment on above: The drugs N-Acetylcy steine and Metamizole may falsely depress this assay. Reference Range HDL <40 mg/dL Low HDL Cholesterol HDL >or= 60 mg/dL High HDL Cholesterol Serum or plasma cholesterol in VLDL measurement (mass/volume)Ordered By: Dr. Horton on 09-15-2022 Cholesterol in VLDL [Mass/Vol] 51 mg/dL 5-40 [facility] Serum or plasma creatinine m easurement (mass/volume)Ordered By: Dr. Horton on 09-15-2022 Creatinine [Mass/Vol] 1.36 mg/dL 0.70-1.30 [facility] Comment on above: The validity of the calculated GFR & GFRAA in patients over 70 years has not been determined. Clinical correlation is essential. Serum or plasma low density lipoprotein (LDL) cholesterol measurement (mass/volume)Ordered By: Dr. Horton on 09-15-2022 Cholesterol in LDL [Mass/Vol] 114 mg/dL 0-130 [facility] Serum or plasma urea nitroge n measurement (mass/volume)Ordered By: Dr. Horton on 09-15-2022 Urea nitrogen [Mass/Vol] 37 mg/dL 7-18 [facility] Thin prep Papanicolaou smear with manual screeningOrdered By: Dr. Horton on 09-15-2022 Thin prep Papanicolaou smear with manual screening 15 U/L 15-37 [facility] Thin prep Papanicolaou smear with manual screening 6 5-15 [facility] Thin prep Papanicolaou smear with manual screening 103.0 mg/L NO RANGE EST. [facility] Whole blood hemoglobin A1c/t otal hemoglobin ratio (mass fraction)Ordered By: Dr. Horton on 09-15-2022 HbA1c (Bld) [Mass fraction] 6.4 % 3.8-5.6 [facility] Comment on above: Normal < 5.7 % Predi abetic 5.7 - 6.4 % Diabetic >or= 6.5 % Please note range changes. Basophil percentageOrdered B y: Dr. Horton on 06-16-2022 Bilirubin [Mass/Vol] 0.30 mg/dL 0.20-1.00 [facility] Comment on above: For patients on eltr ombopag therapy, use of Dimension Crystal TBIL is not recommended. Chloride [Moles/Vol] 107 mmol/L 98-107 [facility] Cholesterol [Mass/Vol] 201 mg/dL <200 [facility] Comment on above: <200 mg/dL Desirable 200-240 mg/dL Borderline >240 mg/dL High Risk Glucose [Mass/Vol] 114 mg/dL 74-106 [facility] Comment on above: Fasting Glucose resu lt from 100 to 125 mg/dL suggests IMPAIRED HOMEOSTASIS per A.D.A. criteria. Potassium [Moles/Vol] 3.8 mmol/L 3.5-5.1 [facility] Protein [Mass/Vol] 7.6 g/dL 6.4-8.2 [facility] Sodium [Moles/Vol] 141 mmol/L 136-145 [facility] Triglyceride [Mass/Vol] 287 mg/dL <199 [facility] Comment on above: The drugs N-Acetylcy steine and Metamizole may falsely depress this assay.Serum Triglycerides Reference Interval Normal <150 mg/dL Borderline high 150 - 199 mg/dL High 200 - 499 mg/dL Very High > or = 500 mg/dL Laboratory - Chemistry and C hemistry - challengeOrdered By: Dr. Horton on 06-16-2022 ALP [Catalytic activity/Vol] 55 U/L 45-117 [facility] ALT [Catalytic activity/Vol] 27 U/L 16-61 [facility] CO2 [Moles/Vol] 26.0 mmol/L 21.0-32.0 [facility] Globulin (S) [Mass/Vol] 3.6 g/dL 2.2-4.2 [facility] Urea nitrogen/Creatinine [Mass ratio] 23.7 mg/mg 10-20 [facility] No Panel InformationOrdered By: Dr. Horton on 06-16-2022 Estimated GFR (MDRD) Amer 67 mL/min >60 [facility] Comment on above: GFR Calc Estimated GFR (MDRD) Non-Af Amer 55 mL/min >60 [facility] Comment on above: Non- GFR Calc Thyroid Stimulating Hormone (TSH) 4.73 uIU/mL 0.358-3.74 [facility] Urine Microalbumin/Creatinine Ratio 167.7 mg/g CRE <30 [facility] Serum or plasma albumin jennifer urement (mass/volume)Ordered By: Dr. Horton on 06-16-2022 Albumin [Mass/Vol] 4.0 g/dL 3.2-5.0 [facility] Serum or plasma albumin/glob ulin mass ratioOrdered By: Dr. Horton on 06-16-2022 Albumin/Globulin [Mass ratio] 1.1 {ratio} 0.9-2.4 [facility] Serum or plasma calcium jennifer urement (mass/volume)Ordered By: Dr. Horton on 06-16-2022 Calcium [Mass/Vol] 9.3 mg/dL 8.5-10.1 [facility] Serum or plasma cholesterol in HDL measurement (mass/volume)Ordered By: Dr. Horton on 06-16-2022 Cholesterol in HDL [Mass/Vol] 30 mg/dL >40 [facility] Comment on above: The drugs N-Acetylcy steine and Metamizole may falsely depress this assay. Reference Range HDL <40 mg/dL Low HDL Cholesterol HDL >or= 60 mg/dL High HDL Cholesterol Serum or plasma cholesterol in VLDL measurement (mass/volume)Ordered By: Dr. Horton on 06-16-2022 Cholesterol in VLDL [Mass/Vol] 57 mg/dL 5-40 [facility] Serum or plasma creatinine m easurement (mass/volume)Ordered By: Dr. Horton on 06-16-2022 Creatinine [Mass/Vol] 1.35 mg/dL 0.70-1.30 [facility] Comment on above: The validity of the calculated GFR & GFRAA in patients over 70 years has not been determined. Clinical correlation is essential. Serum or plasma low density lipoprotein (LDL) cholesterol measurement (mass/volume)Ordered By: Dr. Horton on 06-16-2022 Cholesterol in LDL [Mass/Vol] 114 mg/dL 0-130 [facility] Serum or plasma urea nitroge n measurement (mass/volume)Ordered By: Dr. Horton on 06-16-2022 Urea nitrogen [Mass/Vol] 32 mg/dL 7-18 [facility] Thin prep Papanicolaou smear with manual screeningOrdered By: Dr. Horton on 06-16-2022 Thin prep Papanicolaou smear with manual screening 14 U/L 15-37 [facility] Thin prep Papanicolaou smear with manual screening 8 5-15 [facility] Thin prep Papanicolaou smear with manual screening 136.0 mg/L NO RANGE EST. [facility] Urine creatinine measurement (mass/volume)Ordered By: Dr. Horton on 06-16-2022 Creatinine (U) [Mass/Vol] 81.10 mg/dL NO RANGE EST. [facility] Whole blood hemoglobin A1c/t otal hemoglobin ratio (mass fraction)Ordered By: Dr. Horton on 06-16-2022 HbA1c (Bld) [Mass fraction] 6.2 % 3.8-5.6 [facility] Comment on above: Normal < 5.7 % Predi abetic 5.7 - 6.4 % Diabetic >or= 6.5 % Please note range changes. Basophil percentageOrdered B y: Dr. Horton on 03-17-2022 Bilirubin [Mass/Vol] 0.40 mg/dL 0.20-1.00 [facility] Comment on above: For patients on eltr ombopag therapy, use of Dimension Crystal TBIL is not recommended. Chloride [Moles/Vol] 108 mmol/L 98-107 [facility] Cholesterol [Mass/Vol] 202 mg/dL <200 [facility] Comment on above: <200 mg/dL Desirable 200-240 mg/dL Borderline >240 mg/dL High Risk Glucose [Mass/Vol] 136 mg/dL 74-106 [facility] Comment on above: Fasting Glucose resu lt greater than or equal to 126 mg/dL suggests DIABETES MELLITUS per A.D.A. criteria. Potassium [Moles/Vol] 4.2 mmol/L 3.5-5.1 [facility] Protein [Mass/Vol] 7.8 g/dL 6.4-8.2 [facility] Sodium [Moles/Vol] 141 mmol/L 136-145 [facility] Triglyceride [Mass/Vol] 290 mg/dL <199 [facility] Comment on above: The drugs N-Acetylcy steine and Metamizole may falsely depress this assay.Serum Triglycerides Reference Interval Normal <150 mg/dL Borderline high 150 - 199 mg/dL High 200 - 499 mg/dL Very High > or = 500 mg/dL Laboratory - Chemistry and C hemistry - challengeOrdered By: Dr. Horton on 12-13-2022 ALP [Catalytic activity/Vol] 55 U/L 45-117 [facility] ALT [Catalytic activity/Vol] 27 U/L 16-61 [facility] CO2 [Moles/Vol] 27.0 mmol/L 21.0-32.0 [facility] Globulin (S) [Mass/Vol] 3.7 g/dL 2.2-4.2 [facility] Urea nitrogen/Creatinine [Mass ratio] 17.3 mg/mg 10-20 [facility] No Panel InformationOrdered By: Dr. Horton on 03-17-2022 Estimated GFR (MDRD) Amer 72 mL/min >60 [facility] Comment on above: GFR Calc Estimated GFR (MDRD) Non-Af Amer 59 mL/min >60 [facility] Comment on above: Non- GFR Calc Serum or plasma albumin jennifer urement (mass/volume)Ordered By: Dr. Horotn on 03-17-2022 Albumin [Mass/Vol] 4.1 g/dL 3.2-5.0 [facility] Serum or plasma albumin/glob ulin mass ratioOrdered By: Dr. Horton on 03-17-2022 Albumin/Globulin [Mass ratio] 1.1 {ratio} 0.9-2.4 [facility] Serum or plasma calcium jennifer urement (mass/volume)Ordered By: Dr. Horton on 03-17-2022 Calcium [Mass/Vol] 9.2 mg/dL 8.5-10.1 [facility] Serum or plasma cholesterol in HDL measurement (mass/volume)Ordered By: Dr. Horton on 03-17-2022 Cholesterol in HDL [Mass/Vol] 28 mg/dL >40 [facility] Comment on above: The drugs N-Acetylcy steine and Metamizole may falsely depress this assay. Reference Range HDL <40 mg/dL Low HDL Cholesterol HDL >or= 60 mg/dL High HDL Cholesterol Serum or plasma cholesterol in VLDL measurement (mass/volume)Ordered By: Dr. Horton on 03-17-2022 Cholesterol in VLDL [Mass/Vol] 58 mg/dL 5-40 [facility] Serum or plasma creatinine m easurement (mass/volume)Ordered By: Dr. Horton on 12-13-2022 Creatinine [Mass/Vol] 1.27 mg/dL 0.70-1.30 [facility] Comment on above: The validity of the calculated GFR & GFRAA in patients over 70 years has not been determined. Clinical correlation is essential. Serum or plasma low density lipoprotein (LDL) cholesterol measurement (mass/volume)Ordered By: Dr. Horton on 03-17-2022 Cholesterol in LDL [Mass/Vol] 116 mg/dL 0-130 [facility] Serum or plasma urea nitroge n measurement (mass/volume)Ordered By: Dr. Horton on 03-17-2022 Urea nitrogen [Mass/Vol] 22 mg/dL 7-18 [facility] Thin prep Papanicolaou smear with manual screeningOrdered By: Dr. Horton on 03-17-2022 Thin prep Papanicolaou smear with manual screening 15 U/L 15-37 [facility] Thin prep Papanicolaou smear with manual screening 6 5-15 [facility] Whole blood hemoglobin A1c/t otal hemoglobin ratio (mass fraction)Ordered By: Dr. Horton on 03-17-2022 HbA1c (Bld) [Mass fraction] 6.5 % 3.8-5.6 [facility] Comment on above: Normal < 5.7 % Predi abetic 5.7 - 6.4 % Diabetic >or= 6.5 % Please note range changes. Basophil percentageon 2021 Bilirubin [Mass/Vol] 0.30 mg/dL 0.20-1.00 [facility] Work Phone: Comment on above: For patients on eltr ombopag therapy, use of Dimension Crystal TBIL is not recommended. Chloride [Moles/Vol] 106 mmol/L 98-107 [facility] Work Phone: Cholesterol [Mass/Vol] 186 mg/dL <200 [facility] Work Phone: Comment on above: <200 mg/dL Desirable 200-240 mg/dL Borderline >240 mg/dL High Risk Glucose [Mass/Vol] 132 mg/dL 74-106 [facility] Work Phone: Comment on above: Fasting Glucose resu lt greater than or equal to 126 mg/dL suggests DIABETES MELLITUS per A.D.A. criteria. Potassium [Moles/Vol] 4.2 mmol/L 3.5-5.1 [facility] Work Phone: Protein [Mass/Vol] 7.7 g/dL 6.4-8.2 [facility] Work Phone: Sodium [Moles/Vol] 138 mmol/L 136-145 [facility] Work Phone: Triglyceride [Mass/Vol] 280 mg/dL <199 [facility] Work Phone: [phone] Comment on above: The drugs N-Acetylcy steine and Metamizole may falsely depress this assay.Serum Triglycerides Reference Interval Normal <150 mg/dL Borderline high 150 - 199 mg/dL High 200 - 499 mg/dL Very High > or = 500 mg/dL Laboratory - Chemistry and C hemistry - challengeon 12-16-2021 ALP [Catalytic activity/Vol] 54 U/L 45-117 [facility] Work Phone: ALT [Catalytic activity/Vol] 27 U/L 16-61 [facility] Work Phone: CO2 [Moles/Vol] 24.0 mmol/L 21.0-32.0 [facility] Work Phone: Globulin (S) [Mass/Vol] 3.8 g/dL 2.2-4.2 [facility] Work Phone: Urea nitrogen/Creatinine [Mass ratio] 23.4 mg/mg 10-20 [facility] Work Phone: No Panel Informationon 12-16 Prostate Specific Antigen Total < 0.01 ng/mL 0.0-4.0 [facility] Work Phone: Comment on above: This test was perfor med using the TPSA assay method for the[facility] chemistry system. Values obtained with differentassay methods cannot be used interchangably.When changing PSA assays in the course of monitoring apatient, additional sequential testing should be carriedout to confirm baseline values. Estimated GFR (MDRD) Amer 61 mL/min >60 [facility] Work Phone: Comment on above: GFR Calc Estimated GFR (MDRD) Non-Af Amer 51 mL/min >60 [facility] Work Phone: Comment on above: Non- GFR Calc Urine Microalbumin/Creatinine Ratio 139.5 mg/g CRE <30 [facility] Work Phone: Serum or plasma albumin jennifer urement (mass/volume)on 12-16-2021 Albumin [Mass/Vol] 3.9 g/dL 3.2-5.0 [facility] Work Phone: Serum or plasma albumin/glob ulin mass ratioon 12-16-2021 Albumin/Globulin [Mass ratio] 1.0 {ratio} 0.9-2.4 [facility] Work Phone: Serum or plasma calcium jennifer urement (mass/volume)on 12-16-2021 Calcium [Mass/Vol] 9.3 mg/dL 8.5-10.1 [facility] Work Phone: Serum or plasma cholesterol in HDL measurement (mass/volume)on 12-16-2021 Cholesterol in HDL [Mass/Vol] 29 mg/dL >40 [facility] Work Phone: Comment on above: The drugs N-Acetylcy steine and Metamizole may falsely depress this assay. Reference Range HDL <40 mg/dL Low HDL Cholesterol HDL >or= 60 mg/dL High HDL Cholesterol Serum or plasma cholesterol in VLDL measurement (mass/volume)on 12-16-2021 Cholesterol in VLDL [Mass/Vol] 56 mg/dL 5-40 [facility] Work Phone: Serum or plasma creatinine m easurement (mass/volume)on 12-16-2021 Creatinine [Mass/Vol] 1.45 mg/dL 0.70-1.30 [facility] Work Phone: Comment on above: The validity of the calculated GFR & GFRAA in patients over 70 years has not been determined. Clinical correlation is essential. Serum or plasma low density lipoprotein (LDL) cholesterol measurement (mass/volume)on 12-16-2021 Cholesterol in LDL [Mass/Vol] 101 mg/dL 0-130 [facility] Work Phone: Serum or plasma urea nitroge n measurement (mass/volume)on 12-16-2021 Urea nitrogen [Mass/Vol] 34 mg/dL 7-18 [facility] Work Phone: Thin prep Papanicolaou smear with manual screeningon 12-16-2021 Thin prep Papanicolaou smear with manual screening 15 U/L 15-37 [facility] Work Phone: [phone] Thin prep Papanicolaou smear with manual screening 8 5-15 [facility] Work Phone: Thin prep Papanicolaou smear with manual screening 101.0 mg/L NO RANGE EST. [facility] Work Phone: Urine creatinine measurement (mass/volume)on 12-16-2021 Creatinine (U) [Mass/Vol] 72.40 mg/dL NO RANGE EST. [facility] Work Phone: Whole blood hemoglobin A1c/t otal hemoglobin ratio (mass fraction)on 12-16-2021 HbA1c (Bld) [Mass fraction] 6.4 % 3.8-5.6 [facility] Work Phone: Comment on above: Normal < 5.7 % Predi abetic 5.7 - 6.4 % Diabetic >or= 6.5 % Please note range changes. Basophil percentageon 2021 Chloride [Moles/Vol] 107 mmol/L 98-107 [facility] Work Phone: Glucose [Mass/Vol] 254 mg/dL 74-106 [facility] Work Phone: Comment on above: Glucose result great er than or equal to 200 mg/dLsuggests DIABETES MELLITUS per A.D.A. criteria. Potassium [Moles/Vol] 4.2 mmol/L 3.5-5.1 [facility] Work Phone: Sodium [Moles/Vol] 138 mmol/L 136-145 [facility] Work Phone: Laboratory - Chemistry and C hemistry - challengeon 11-14-2021 CO2 [Moles/Vol] 25.0 mmol/L 21.0-32.0 [facility] Work Phone: Urea nitrogen/Creatinine [Mass ratio] 22.2 mg/mg 10-20 [facility] Work Phone: No Panel Informationon 11-14 Estimated GFR (MDRD) Amer 58 mL/min >60 [facility] Work Phone: Comment on above: GFR Calc Estimated GFR (MDRD) Non-Af Amer 48 mL/min >60 [facility] Work Phone: Comment on above: Non- GFR Calc Serum or plasma calcium jennifer urement (mass/volume)on 11-14-2021 Calcium [Mass/Vol] 9.1 mg/dL 8.5-10.1 [facility] Work Phone: Serum or plasma creatinine m easurement (mass/volume)on 11-14-2021 Creatinine [Mass/Vol] 1.53 mg/dL 0.70-1.30 [facility] Work Phone: Comment on above: The validity of the calculated GFR & GFRAA in patients over 70 years has not been determined. Clinical correlation is essential. Serum or plasma urea nitroge n measurement (mass/volume)on 11-14-2021 Urea nitrogen [Mass/Vol] 34 mg/dL 7-18 [facility] Work Phone: Thin prep Papanicolaou smear with manual screeningon 11-14-2021 Thin prep Papanicolaou smear with manual screening 6 5-15 [facility] Work Phone: Basophil percentageon 2021 Chloride [Moles/Vol] 108 mmol/L 98-107 [facility] Work Phone: Glucose [Mass/Vol] 223 mg/dL 74-106 [facility] Work Phone: Comment on above: Glucose result great er than or equal to 200 mg/dLsuggests DIABETES MELLITUS per A.D.A. criteria. Potassium [Moles/Vol] 4.3 mmol/L 3.5-5.1 [facility] Work Phone: Sodium [Moles/Vol] 140 mmol/L 136-145 [facility] Work Phone: Laboratory - Chemistry and C hemistry - challengeon 10-30-2021 CO2 [Moles/Vol] 25.0 mmol/L 21.0-32.0 [facility] Work Phone: Urea nitrogen/Creatinine [Mass ratio] 21.8 mg/mg 10-20 [facility] Work Phone: No Panel Informationon 10-30 Estimated GFR (MDRD) Amer 63 mL/min >60 [facility] Work Phone: Comment on above: GFR Calc Estimated GFR (MDRD) Non-Af Amer 52 mL/min >60 [facility] Work Phone: Comment on above: Non- GFR Calc Serum or plasma calcium jennifer urement (mass/volume)on 10-30-2021 Calcium [Mass/Vol] 9.0 mg/dL 8.5-10.1 [facility] Work Phone: Serum or plasma creatinine m easurement (mass/volume)on 10-30-2021 Creatinine [Mass/Vol] 1.42 mg/dL 0.70-1.30 [facility] Work Phone: Comment on above: The validity of the calculated GFR & GFRAA in patients over 70 years has not been determined. Clinical correlation is essential. Serum or plasma urea nitroge n measurement (mass/volume)on 10-30-2021 Urea nitrogen [Mass/Vol] 31 mg/dL 7-18 [facility] Work Phone: Thin prep Papanicolaou smear with manual screeningon 10-30-2021 Thin prep Papanicolaou smear with manual screening 7 5-15 [facility] Work Phone: Basophil percentageon 2021 Chloride [Moles/Vol] 106 mmol/L 98-107 [facility] Work Phone: Glucose [Mass/Vol] 134 mg/dL 74-106 [facility] Work Phone: Comment on above: Fasting Glucose resu lt greater than or equal to 126 mg/dL suggests DIABETES MELLITUS per A.D.A. criteria. Potassium [Moles/Vol] 3.8 mmol/L 3.5-5.1 [facility] Work Phone: Sodium [Moles/Vol] 141 mmol/L 136-145 [facility] Work Phone: Laboratory - Chemistry and C hemistry - challengeon 10-20-2021 CK [Catalytic activity/Vol] 91 U/L 39-308 [facility] Work Phone: CO2 [Moles/Vol] 26.0 mmol/L 21.0-32.0 [facility] Work Phone: Urea nitrogen/Creatinine [Mass ratio] 23.5 mg/mg 10-20 [facility] Work Phone: No Panel Informationon 10-20 Estimated GFR (MDRD) Amer 66 mL/min >60 [facility] Work Phone: Comment on above: GFR Calc Estimated GFR (MDRD) Non-Af Amer 55 mL/min >60 [facility] Work Phone: Comment on above: Non- GFR Calc Serum or plasma calcium jennifer urement (mass/volume)on 10-20-2021 Calcium [Mass/Vol] 9.4 mg/dL 8.5-10.1 [facility] Work Phone: Serum or plasma creatinine m easurement (mass/volume)on 10-20-2021 Creatinine [Mass/Vol] 1.36 mg/dL 0.70-1.30 [facility] Work Phone: Comment on above: The validity of the calculated GFR & GFRAA in patients over 70 years has not been determined. Clinical correlation is essential. Serum or plasma urea nitroge n measurement (mass/volume)on 10-20-2021 Urea nitrogen [Mass/Vol] 32 mg/dL - [facility] Work Phone: Thin prep Papanicolaou smear with manual screeningon 10-20-2021 Thin prep Papanicolaou smear with manual screening 9 5-15 [facility] Work Phone: Basophil percentageon 2021 Bilirubin [Mass/Vol] 0.20 mg/dL 0.20-1.00 [facility] Work Phone: Comment on above: For patients on eltr ombopag therapy, use of Dimension Crystal TBIL is not recommended. Chloride [Moles/Vol] 110 mmol/L 98-107 [facility] Work Phone: Cholesterol [Mass/Vol] 184 mg/dL <200 [facility] Work Phone: Comment on above: <200 mg/dL Desirable 200-240 mg/dL Borderline >240 mg/dL High Risk Glucose [Mass/Vol] 138 mg/dL 74-106 [facility] Work Phone: Comment on above: Fasting Glucose resu lt greater than or equal to 126 mg/dL suggests DIABETES MELLITUS per A.D.A. criteria. Potassium [Moles/Vol] 4.2 mmol/L 3.5-5.1 [facility] Work Phone: Protein [Mass/Vol] 7.2 g/dL 6.4-8.2 [facility] Work Phone: Sodium [Moles/Vol] 141 mmol/L 136-145 [facility] Work Phone: Triglyceride [Mass/Vol] 479 mg/dL <199 [facility] Work Phone: Comment on above: [...] 10-18-2021 ALP [Catalytic activity/Vol] 48 U/L 45-117 [facility] Work Phone: ALT [Catalytic activity/Vol] 23 U/L 16-61 [facility] Work Phone: CK [Catalytic activity/Vol] 76 U/L 39-308 [facility] Work Phone: CO2 [Moles/Vol] 24.0 mmol/L 21.0-32.0 [facility] Work Phone: Globulin (S) [Mass/Vol] 3.4 g/dL 2.2-4.2 [facility] Work Phone: Urea nitrogen/Creatinine [Mass ratio] 24.7 mg/mg 10-20 [facility] Work Phone: No Panel Informationon 10-18 Estimated GFR (MDRD) Amer 59 mL/min >60 [facility] Work Phone: Comment on above: GFR Calc Estimated GFR (MDRD) Non-Af Amer 49 mL/min >60 [facility] Work Phone: Comment on above: Non- GFR Calc Thyroid Stimulating Hormone (TSH) 1.92 uIU/mL 0.358-3.74 [facility] Work Phone: Urine Microalbumin/Creatinine Ratio 70.2 mg/g CRE <30 [facility] Work Phone: Serum or plasma albumin jennifer urement (mass/volume)on 10-18-2021 Albumin [Mass/Vol] 3.8 g/dL 3.2-5.0 [facility] Work Phone: Serum or plasma albumin/glob ulin mass ratioon 10-18-2021 Albumin/Globulin [Mass ratio] 1.1 {ratio} 0.9-2.4 [facility] Work Phone: Serum or plasma calcium jennifer urement (mass/volume)on 10-18-2021 Calcium [Mass/Vol] 9.3 mg/dL 8.5-10.1 [facility] Work Phone: Serum or plasma cholesterol in HDL measurement (mass/volume)on 10-18-2021 Cholesterol in HDL [Mass/Vol] 22 mg/dL >40 [facility] Work Phone: Comment on above: The drugs N-Acetylcy steine and Metamizole may falsely depress this assay. Reference Range HDL <40 mg/dL Low HDL Cholesterol HDL >or= 60 mg/dL High HDL Cholesterol Serum or plasma cholesterol in VLDL measurement (mass/volume)on 10-18-2021 Cholesterol in VLDL [Mass/Vol] [facility] Work Phone: Comment on above: Test not performed Serum or plasma creatinine m easurement (mass/volume)on 10-18-2021 Creatinine [Mass/Vol] 1.50 mg/dL 0.70-1.30 [facility] Work Phone: Comment on above: The validity of the calculated GFR & GFRAA in patients over 70 years has not been determined. Clinical correlation is essential. Serum or plasma low density lipoprotein (LDL) cholesterol measurement (mass/volume)on 10-18-2021 Cholesterol in LDL [Mass/Vol] [facility] Work Phone: Comment on above: Test not performed Serum or plasma urea nitroge n measurement (mass/volume)on 10-18-2021 Urea nitrogen [Mass/Vol] 37 mg/dL 7-18 [facility] Work Phone: Thin prep Papanicolaou smear with manual screeningon 10-18-2021 Thin prep Papanicolaou smear with manual screening 12 U/L 15-37 [facility] Work Phone: Thin prep Papanicolaou smear with manual screening 7 5-15 [facility] Work Phone: Thin prep Papanicolaou smear with manual screening 53.9 mg/L NO RANGE EST. [facility] Work Phone: Urine creatinine measurement (mass/volume)on 10-18-2021 Creatinine (U) [Mass/Vol] 76.80 mg/dL NO RANGE EST. [facility] Work Phone: CNPNon 08-27-2021 [facility] Telephone (FAMPWS) -------- EDILJOSE MANUEL BARBER ([id number]) 1950 Date Time Provider Department 08/27/21 ANDREW CALLE [facility] During your visit today, we recorded the following information about you: Hamida Montoya RN 08/27/2021 2:49 PM Signed Faxed [...] - Other: See Comments Comments: Muscle cramps [id number] REDUCTASE INHIBIT*01/02/2014 14 - Other: See Comments [...] mellitus without complication, *03/25/2018 Encounter Status:Closed by Hmaida MONTOYA RN on 08/27/21 Normal [facility] Free PSA [Mass/Vol]on 2021 Free PSA/Total PSA [Mass fraction] Normal [facility] Comment on above: Order Comment: Speci men Type: BLOOD SPECIMENOrdering Facility: [facility] Address: [address] [place] [address] Result Comment: Perc ent free not reported [...] 12.2% 15.8% Performed By: #### 1 0886-0 ####[facility] LABCLIA [id number] [place] [address] [place] Prostate specific Ag [Mass/Vol] ng/mL Normal <2.60 [facility] Comment on above: Order Comment: Speci men Type: BLOOD SPECIMENOrdering Facility: [facility] Address: [address] [place] [address] Result Comment: Tota l PSA test methodology used is the Electrochemiluminescence Immunoassay by [employer]. Total PSA values by differing methodologies cannot be interchanged. Performed By: #### 1 0886-0 ####[facility] LABCLIA [id number] [place] [address] [place] CNOVon 03-26-2021 CNOV Office Visit (FAMPWS ) -------- JOSE MANUEL GREENFIELD ([id number]) 1950 M Date Time Provider Department 03/26/21 [...] Lipitor [Atorvastatin Calcium], Niaspan [Niacin (Antihyperlipidemic)], Pravastatin, Wlepujb-Mhx-Yln Reductase Inhibitors, and Zocor [Simvastatin] MEDICATIONS Current [...] No defo (more content not included)... Normal [facility] Comp Metabolic Panelon 03-22 Albumin [Mass/Vol] 4.6 g/dL Normal 3.9-4.9 [facility] Comment on above: Performed By: #### C MP, HBA1C ####[facility] [place], [place] [phone] ALP [Catalytic activity/Vol] 58 U/L Normal 38-113 [facility] Comment on above: Performed By: #### C MP, HBA1C ####[facility] [place], [place] [phone] ALT [Catalytic activity/Vol] 17 U/L Normal 10-54 [facility] Comment on above: Performed By: #### C MP, HBA1C ####[facility] [address] [place], [place] [phone] Anion gap [Moles/Vol] 12 mmol/L Normal 9-18 [facility] Comment on above: Performed By: #### C MP, HBA1C ####[facility] [address] [place], [place] [phone] AST [Catalytic activity/Vol] 17 U/L Normal 14-40 [facility] Comment on above: Performed By: #### C MP, HBA1C ####[facility] [phone] Bilirubin [Mass/Vol] 0.2 mg/dL Normal 0.2-1.3 [facility] Comment on above: Performed By: #### C MP, HBA1C ####[facility] [place] [phone] Calcium [Mass/Vol] 10.0 mg/dL Normal 8.5-10.2 [facility] Comment on above: Performed By: #### C MP, HBA1C ####[place] [address] [address] [place] [phone] Chloride [Moles/Vol] 103 mmol/L Normal 97-105 [facility] Comment on above: Performed By: #### C MP, HBA1C ####[place] [address] [address] [place] [phone] CO2 [Moles/Vol] 24 mmol/L Normal 22-30 [facility] Comment on above: Performed By: #### C MP, HBA1C ####[facility] [place] [phone] Creatinine [Mass/Vol] 1.33 mg/dL High 0.73-1.22 [facility] Comment on above: Performed By: #### C MP, HBA1C ####[place] [address] [address], [place] [phone] eGFR- Amer. >60 Normal [facility] Comment on above: Performed By: #### C MP, HBA1C ####[place] [address] [address] [place] [phone] eGFR-All Other Races 53 . Normal [facility] Comment on above: Result Comment: eGFR (Estimated [...] [email or web address]. Performed By: #### C MP, HBA1C ####[facility], [place] [phone] Glucose [Mass/Vol] 147 mg/dL High 74-99 [facility] Comment on above: Result Comment: The [place] Diabetes Association (ADA) provides guidance for cutoff [...] Standards of Medical Care in Diabetes 2016, [place] Diabetes Association. Diabetes Care. 2016.39(Suppl 1). Performed By: #### C MP, HBA1C ####[facility] [address] [place], [place] [phone] Potassium [Moles/Vol] 4.3 mmol/L Normal 3.7-5.1 [facility] Comment on above: Performed By: #### C MP, HBA1C ####[facility] [place], [place] [phone] Protein [Mass/Vol] 7.4 g/dL Normal 6.3-8.0 [facility] Comment on above: Performed By: #### C MP, HBA1C ####[facility] [place], [place] [phone] Sodium [Moles/Vol] 139 mmol/L Normal 136-144 [facility] Comment on above: Performed By: #### C MP, HBA1C ####[facility], [place] [phone] Urea nitrogen [Mass/Vol] 28 mg/dL High 9-24 [facility] Comment on above: Performed By: #### C MP, HBA1C ####[address] [phone] Hemoglobin A1con 03-22-2021 Glucose [Mass/Vol] 151 mg/dL Normal [facility] Comment on above: Result Comment: eAG: (Estimated average glucose) is a calculated value from HgbA1c and is resources representative of the average blood glucose level in the last 2-3 month period. Performed By: #### C MP, HBA1C ####[address] [phone] HbA1c (Bld) [Mass fraction] 6.9 % High 4.3-5.6 [facility] Comment on above: Result Comment: Amer [place] Diabetes Association guidelines indicate that patients with HgbA1c in the range 5.7-6.4% are at increased risk for development of diabetes, and intervention by lifestyle modification may be beneficial. HgbA1c greater or equal to 6.5% is considered diagnostic of diabetes. Performed By: #### C MP, HBA1C ####[facility], [place] [phone] CNPNon 03-21-2021 [facility] Telephone (FAMPWS) -------- JOSE MANUEL GREENFIELD ([id number]) 1950 M Date Time Provider Department 03/21/21 ANDREW CALLE During your visit today, we recorded the following information about you: Janel Pinedakylejacquie Janice 03/21/2021 12:01 PM Signed Patient is requesting [...] - Other: See Comments Comments: Muscle cramps QJOBRPO-GJS-IQA REDUCTASE INHIBIT*01/02/2014 14 - Other: See Comments Comments: Muscle pain ZOCOR (SIMVASTATIN) 01/27/2011 14 - Other: See Comments Comments: Muscle cramps Date Reviewed: 12/31/2020 Reviewed by: Yesica Norris LPN - Fully Assessed Reason for Visit: Orders [681] Primary Visit Diagnosis:Diabetes mellitus type II (HCC) [E11.9] Order(s):COMP METABOLIC PANEL [SQCMP] Order #: [id number] FUTURE HGB A1C [[id number]] Order #: [id number] FUTURE Prescriptions as of 03/21/2021 - glipiZIDE [...] Status:Closed by JONELLE BOGGS LPN on 03/21/21 [facility] OBSOLETEon 03-17-2021 OBSOLETE Refill (FAMPWS) -------- JOSE MANUEL GREENFIELD ([id number]) 1950 M Date Time Provider Department 03/17/21 ANDREW CALLE FAMPWS During your visit today, we recorded the following information about you: Tasha Efren [facility] 03/17/2021 8:28 AM Signed Patient has been [...] pharmacy. No need to notify patient. Tasha Schwartz [facility] Karri Rey Ma 03/17/2021 5:12 PM Signed AISLINN: [...] - Other: See Comments Comments: Muscle cramps EEOXGXI-GJF-IKA REDUCTASE INHIBIT*01/02/2014 14 - Other: See Comments [...] Encounter Status:Closed by EBONI CARDOZO on 03/18/21 [facility] OBSOLETEon 01-27-2021 OBSOLETE Refill (WESLEYWS) -------- JOSE MANUEL GREENFIELD ([id number]) 1950 M Date Time Provider Department 01/27/21 PODLOGEBONI SUMNER During your visit today, we recorded the [...] - Other: See Comments Comments: Muscle cramps BWYRJOO-TLF-KDS REDUCTASE INHIBIT*01/02/2014 14 - Other: See Comments [...] mellitus without complication, *03/25/2018 Encounter Status:Closed by KARRI REY MA on 01/27/21 [facility] 01-01-2021 [facility] Telephone (UCTR) -------- JOSE MANUEL GREENFIELD ([id number]) 1950 M Date Time Provider Department 01/01/21 TONE JESUS [facility] During your visit today, we recorded the following information about you: Tone Jesus MD 01/01/2021 11:28 AM Signed COVID test was positive. Continue home isolation 10 days from symptom onset. Close contacts should quarantine. Treat with supportive care. F/u virtually with worsening symptoms; ER if severe. Hamida Montoya RN 01/01/2021 12:14 PM Signed Patient [...] - Other: See Comments Comments: Muscle cramps YYTATRG-TDC-YOU REDUCTASE INHIBIT*01/02/2014 14 - Other: See Comments [...] Status:Closed by Hamida MONTOYA RN on 01/01/21 [facility] Julianne 12-31-2020 CNOV Office Visit (UCWSTR ) -------- JOSE MANUEL GREENFIELD ([id number]) 1950 M Date Time Provider Department 12/31/20 1:45 PM [facility] your visit today, we recorded the following information about you: Temperature Pulse Respiration Blood pressure 98.9 degrees 63/minute 16/minute 122/70 Weight 84.7 kg Brittany Mane APRN.JODY 12/31/2020 2:30 PM Signed This note was created using NoteWriter. Subjective [...] history is provided by the patient. No language instructor was used. Cough This is a new [...] OR W/O [facility] SPEC 11/20/2011 Colonoscopy. repeat in 10 years - [facility] RADICAL PROSTATECTOMY 11/30/2018 - PAST SURGICAL HISTORY OF right 5th finger - REMOVAL OF TONSILS,<12 Y/O ALLERGIES Crestor [Rosuvastatin Calcium], Dust, Hayfever [Homeopathic Products], Lipitor [Atorvastatin Calcium], Niaspan [Niacin (Antihyperlipidemic)], Pravastatin, Viwtuer-Dbp-Uyl Reductase Inhibitors, and Zocor [Simvastatin] MEDICATIONS levothyroxine [...] chest tightness, (more content not included)... Normal [facility] Coronavirus 2019on SARS-CoV-2 (COVID-19) RNA SILVA+probe Ql (Unsp spec) UPPER RESPIRATORY TRACT SWAB Normal [facility] Comment on above: Performed By: #### C OVID ####[address] [phone] SARS-CoV-2 (COVID-19) RNA SILVA+probe Ql (Unsp spec) Positive for COVID19 (SARS CoV2) by RT-PCR or equivalent method. Critically abnormal Negative for COVID19 (SARS CoV2) by RT-PCR or equivalent method. [facility] Comment on above: Result Comment: This test was developed and its performance characteristics determined by [facility]'s [facility] [place]. This test has been authorized by FDA under an Emergency Use Authorization (EUA). This test has been validated in accordance with the FDA's Guidance Document Policy for Diagnostics Testing in Laboratories Certified to Perform High Complexity Testing under CLIA prior to Emergency use Authorization for Coronavirus Disease 2019 during the Public Health Emergency issued on June 03, 2019. Test performed by [facility], [facility] [place], [address] [place], [place] [address]. Performed By: #### C OVID ####[place] [id number] [phone] PSA, [employer] 12-22-2020 PSA, Diagnostic <0.03 Normal 0.00-2.59 [facility] Comment on above: Performed By: #### P SA #### [facility] [address] [place], [place] [address] OBSOLETEon 12-16-2020 OBSOLETE Refill (FAMPWS) -------- SINDY GREENFIELD ([id number]) 1950 M Date Time Provider Department 12/16/20 ANDREW CALLE During your visit today, we recorded the following information about you: Mindi Byers 12/16/2020 2:47 PM Addendum Patient has been identified by name and date of : Yes Pending Prescriptions Disp Refills POTASSIUM CITRATE ER 10 MEQ (1,080 MG) TABLET,EXTENDED RELEASE 90 tablet 1 Sig: Take 1 tablet by mouth once daily KENDALL: No AISLINN-09/24/20 with [facility]-09/21/20 NOV-03/26/21 with [facility] RX INSTRUCTIONS: Patient aware RX will be [...] - Other: See Comments Comments: Muscle cramps BRZYSOD-WSM-IXR REDUCTASE INHIBIT*01/02/2014 14 - Other: See Comments [...] Encounter Status:Closed by EBONI CARDOZO on 12/16/20 [facility] OBSOLETE Refill (FAMPWS) -------- SINDY GREENFIELD ([id number]) 1950 M Date Time Provider Department 12/16/20 ANDREW CALLE FAMPWS During your visit today, we recorded the following information about you: Mindi Byers 12/16/2020 2:49 PM Addendum Patient has been identified by name and date of : Yes Pending Prescriptions Disp Refills METFORMIN 1,000 MG TABLET 90 tablet 3 Sig: Take 1 tablet by mouth twice daily with meals. KENDALL: No AISLINN-09/24/20 with [facility]-09/21/20 NOV-03/26/21 with [facility] RX INSTRUCTIONS: Patient aware RX will be [...] - Other: See Comments Comments: Muscle cramps SSMQQYS-LZV-IVN REDUCTASE INHIBIT*01/02/2014 14 - Other: See Comments [...] Encounter Status:Closed by EBONI CARDOZO on 12/16/20 [facility] OBSOLETEon 12-14-2020 OBSOLETE Refill (FAMPWS) -------- SINDY GREENFIELD ([id number]) 1950 M Date Time Provider Department 12/14/20 ANDREW CALLE FAMPWS During your visit today, we recorded the following information about you: Alice Kelley [facility] 12/14/2020 9:52 AM Signed Patient has been [...] - Other: See Comments Comments: Muscle cramps FXRHFYR-FCI-[id number] REDUCTASE INHIBIT*01/02/2014 14 - Other: See Comments [...] 1 t (more content not included)... Normal [facility] CNOVon 09-24-2020 DEQUAN Office Visit (JOSÉ ) -------- EDILSINDY BARBER Betty ([id number]) 1950 M Date Time Provider Department 09/24/20 [...] Lipitor [Atorvastatin Calcium], Niaspan [Niacin (Antihyperlipidemic)], Pravastatin, Rujinlj-Raq-Oyg Reductase Inhibitors, and Zocor [Simvastatin] MEDICATIONS Current [...] clear t (more content not included)... Normal [facility] OBSOLETEon 09-24-2020 OBSOLETE Refill (FAMPWS) -------- SINDY GREENFIELD ([id number]) 1950 M Date Time Provider Department 09/24/20 PODLOGAR, EBONI KUMAR During your visit today, we recorded the following information about you: Kathy William ALEXANDER 09/24/2020 11:51 AM Signed Pt calls to report he had an appt today. Pt thought provider was going to send in rx for Zetia 10 mg. Pt reports he wants #90 to be sent to [facility]. Patient has been identified by name and date of : Yes Pending Prescriptions Disp Refills EZETIMIBE 10 MG TABLET 90 tablet 1 Sig: Take 1 tablet by mouth once daily. KENDALL: No RX INSTRUCTIONS: Patient aware RX will be sent to pharmacy. No need to notify patient. Kathy William ALEXANDER Allergies As of Date: 09/24/2020 Noted Allergy Reaction CRESTOR (ROSUVASTATIN CALCIUM) 01/27/2011 14 - Other: See Comments Comments: Muscle cramps DUST 03/31/2005 5 - Intolerance HAYFEVER (HOMEOPATHIC PRODUCTS) 03/31/2005 5 - Intolerance LIPITOR (ATORVASTATIN CALCIUM) 01/27/2011 14 - Other: See Comments Comments: Muscle cramps NIASPAN (NIACIN (ANTIHYPERLIPIDEM*2006 8 - GI Upset PRAVASTATIN 01/27/2011 14 - Other: See Comments Comments: Muscle cramps DXGJYIL-YFJ-VYY REDUCTASE INHIBIT*01/02/2014 14 - Other: See Comments [...] Status:Closed by PODLOGEBONI SUMNER on 09/24/20 Normal [facility] Comp Metabolic Panelon 09-21 Albumin [Mass/Vol] 4.4 g/dL Normal 3.9-4.9 [facility] Comment on above: Performed By: #### L IPB, CMP, HBA1C ####[facility], [place] [phone] ALP [Catalytic activity/Vol] 58 U/L Normal 38-113 [facility] Comment on above: Performed By: #### L IPB, CMP, HBA1C ####[place] [address], [place] [phone] ALT [Catalytic activity/Vol] 17 U/L Normal 10-54 [facility] Comment on above: Performed By: #### L IPB, CMP, HBA1C ####[facility], [place] [phone] Anion gap [Moles/Vol] 14 mmol/L Normal 9-18 [facility] Comment on above: Performed By: #### L IPB, CMP, HBA1C ####[facility], [place] [phone] AST [Catalytic activity/Vol] 21 U/L Normal 14-40 [facility] Comment on above: Performed By: #### L IPB, CMP, HBA1C ####[facility], [place] [phone] Bilirubin [Mass/Vol] 0.2 mg/dL Normal 0.2-1.3 [facility] Comment on above: Performed By: #### L IPB, CMP, HBA1C ####[facility], [place] [phone] Calcium [Mass/Vol] 9.7 mg/dL Normal 8.5-10.2 [facility] Comment on above: Performed By: #### L IPB, CMP, HBA1C ####[facility] [address], [place] [phone] Chloride [Moles/Vol] 107 mmol/L High 97-105 [facility] Comment on above: Performed By: #### L IPB, CMP, HBA1C ####[facility], [place] [phone] CO2 [Moles/Vol] 20 mmol/L Low 22-30 [facility] Comment on above: Performed By: #### L IPB, CMP, HBA1C ####[facility], [place] [phone] Creatinine [Mass/Vol] 1.28 mg/dL High 0.73-1.22 [facility] Comment on above: Performed By: #### L IPB, CMP, HBA1C ####[facility], [place] [phone] eGFR- Amer. >60 Normal [facility] Comment on above: Performed By: #### L IPB, CMP, HBA1C ####[facility] [place], [place] [phone] eGFR-All Other Races 55 . Normal [facility] Comment on above: Result Comment: eGFR (Estimated [...] Performed By: #### L IPB, CMP, HBA1C ####[facility] [address], [place] [phone] Glucose [Mass/Vol] 144 mg/dL High 74-99 [facility] Comment on above: Result Comment: The [place] Diabetes Association (ADA) provides guidance for cutoff [...] Standards of Medical Care in Diabetes 2016, [place] [employer]. Diabetes Care. 2016.39(Suppl 1). Performed By: #### L IPB, CMP, HBA1C ####[address] [phone] Potassium [Moles/Vol] 4.0 mmol/L Normal 3.7-5.1 [facility] Comment on above: Performed By: #### L IPB, CMP, HBA1C ####[address] [phone] Protein [Mass/Vol] 7.4 g/dL Normal 6.3-8.0 [facility] Comment on above: Performed By: #### L IPB, CMP, HBA1C ####[facility] [place], [place] [phone] Sodium [Moles/Vol] 141 mmol/L Normal 136-144 [facility] Comment on above: Performed By: #### L IPB, CMP, HBA1C ####[facility] [place], [place] [phone] Urea nitrogen [Mass/Vol] 36 mg/dL High 9-24 [facility] Comment on above: Performed By: #### L IPB, CMP, HBA1C ####[address] [phone] Hemoglobin A1con 09-21-2020 Glucose [Mass/Vol] 146 mg/dL Normal [facility] Comment on above: Result Comment: eAG: (Estimated average glucose) is a calculated value from HgbA1c and is resources representative of the average blood glucose level in the last 2-3 month period. Performed By: #### L IPB, CMP, HBA1C ####[address] [place], [place] [phone] HbA1c (Bld) [Mass fraction] 6.7 % High 4.3-5.6 [facility] Comment on above: Result Comment: [facility] Diabetes Association guidelines indicate that patients with HgbA1c in the range 5.7-6.4% are at increased risk for development of diabetes, and intervention by lifestyle modification may be beneficial. HgbA1c greater or equal to 6.5% is considered diagnostic of diabetes. Performed By: #### L IPB, CMP, HBA1C ####[place] [address] [place], [place] [phone] [facility] Cholesterol [Mass/Vol] 185 mg/dL Normal <200 [facility] Comment on above: Result Comment: <200 mg/dL, Desirable 200-239 mg/dL, Borderline high >239 mg/dL, High Performed By: #### L IPB, CMP, HBA1C ####[address] [phone] Cholesterol in HDL [Mass/Vol] 24 mg/dL Low >39 [facility] Comment on above: Result Comment: 40-5 9 mg/dL, Acceptable >59 mg/dL, High: Negative risk factor for coronary heart disease <40 mg/dL, Low: Positive risk factor for coronary heart disease Performed By: #### L IPB, CMP, HBA1C ####[place] [id number] [place], [place] [phone] Cholesterol in LDL [Mass/Vol] 107 mg/dL High <100 [facility] Comment on above: Result Comment: <100 mg/dL, Optimal 100-129 mg/dL, Near optimal/above optimal 130-159 mg/dL, Borderline high 160-189 mg/dL, High >189 mg/dL, Very high Secondary prevention optimal LDL Cholesterol levels are recommended to be < 70 mg/dL Performed By: #### L IPB, CMP, HBA1C ####[facility] [address], [place] [phone] Fasting Time 12 hrs Normal [facility] Comment on above: Performed By: #### L IPB, CMP, HBA1C ####[facility] [address], [place] [phone] LDL:HDL Ratio 4.46 High <2.54 [facility] Comment on above: Result Comment: Refe rence: 1. National Cholesterol Education Program ATP III Guideline At-A-Glance Quick Desk Reference: National Heart, Lung, and Blood [place]. National Institutes of Health. 2001: NIH Publication No. 01-3305. 2. An International Atherosclerosis Society position paper: global recommendations for the management of dyslipidemia: executive summary, Atherosclerosis. 2014: 232(2):410-413. Performed By: #### L IPB, CMP, HBA1C ####[facility], [place] [phone] Non HDL Cholesterol 161 mg/dL High <130 [facility] Comment on above: Result Comment: <130 mg/dL, Optimal 130-159 mg/dL, Near optimal/above optimal 160-189 mg/dL, Borderline high 190-219 mg/dL, High >219 mg/dL, Very high Secondary prevention optimal non HDL Cholesterol levels are recommended to be < 100 mg/dL Performed By: #### L IPB, CMP, HBA1C ####[facility], [place] [phone] TC:HDL Ratio 7.71 High <5.10 [facility] Comment on above: Performed By: #### L IPB, CMP, HBA1C ####[facility] [address], [place] [phone] Triglyceride [Mass/Vol] 268 mg/dL High <150 [facility] Comment on above: Result Comment: <150 mg/dL, Normal 150-199 mg/dL, Borderline high 200-499 mg/dL, High >499 mg/dL, Very high Performed By: #### L IPB, CMP, HBA1C ####[facility] [address] [place], [place] [phone] VLDL Cholesterol 54 mg/dL High <30 [facility] Comment on above: Performed By: #### L IPB, CMP, HBA1C ####[facility] [address] [place], [place] [phone] PSA, [facility] 06-16-2020 PSA, Diagnostic <0.03 Normal 0.00-2.59 [facility] Comment on above: Performed By: #### P SA #### [facility] Routine Lab [address] [place], [place] [phone] Vital Signs Date Time Vital Sign Value Performing Clinician Crystal garcia 12-18-2024 13:07-0400 Body height 175.26 cm Mita Zaidi VISOR INSTALLER-C Work Phone: [facility] 12-18-2024 13:07-0400 Body mass index (BMI) [Ratio] 27.3 kg/m2 Mita Zaidi VISOR INSTALLER-C Work Phone: [facility] 12-18-2024 13:07-0400 Body weight 83.91 kg Mita Zaidi VISOR INSTALLER-C Work Phone: [facility] 12-18-2024 13:07-0400 Diastolic blood pressure 73 mm[Hg] Mita Zaidi VISOR INSTALLER-C Work Phone: [facility] 12-18-2024 13:07-0400 Heart rate 73 /min Mita Zaidi VISOR INSTALLER-C Work Phone: [facility] 12-18-2024 13:07-0400 Respiratory rate 18 /min Mita Zaidi VISOR INSTALLER-C Work Phone: [facility] 12-18-2024 13:07-0400 SaO2% (BldA) [Mass fraction] 95 % Mita Dejuan VISOR INSTALLER-C Work Phone: [facility] 12-18-2024 13:07-0400 Systolic blood pressure 149 mm[Hg] Mita Dejuan VISOR INSTALLER-C Work Phone: [facility] 08-30-2024 13:22-0400 Body temperature 98 [degF] Mita Dejuan VISOR INSTALLER-C Work Phone: [facility] 08-30-2024 13:22-0400 Body weight 85.72 kg Mita Dejuan VISOR INSTALLER-C Work Phone: [facility] 08-30-2024 13:22-0400 Diastolic blood pressure 68 mm[Hg] Mita Dejuan VISOR INSTALLER-C Work Phone: [facility] 08-30-2024 13:22-0400 Heart rate 82 /min Mita Dejuan VISOR INSTALLER-C Work Phone: [facility] 08-30-2024 13:22-0400 Respiratory rate 14 /min Mita Dejuan VISOR INSTALLER-C Work Phone: [facility] 08-30-2024 13:22-0400 SaO2% (BldA) [Mass fraction] 99 % Mita Dejuan VISOR INSTALLER-C Work Phone: [facility] 08-30-2024 13:22-0400 Systolic blood pressure 145 mm[Hg] Mita Dejuan VISOR INSTALLER-C Work Phone: [facility] 08-16-2024 11:00-0400 Diastolic blood pressure 50 mm[Hg] Mita Dejuan VISOR INSTALLER-C Work Phone: [facility] 08-16-2024 11:00-0400 Heart rate 62 /min Mita Dejuan VISOR INSTALLER-C Work Phone: [facility] 08-16-2024 11:00-0400 Respiratory rate 22 /min Mita Dejuan VISOR INSTALLER-C Work Phone: [facility] 08-16-2024 11:00-0400 SaO2% (BldA) [Mass fraction] 97 % Mitasravan Zaidi VISOR INSTALLER-C Work Phone: [facility] 08-16-2024 11:00-0400 Systolic blood pressure 106 mm[Hg] Mita Dejuan VISOR INSTALLER-C Work Phone: [facility] 08-16-2024 09:00-0400 Body temperature 98.2 [degF] Mita Dejuan VISOR INSTALLER-C Work Phone: [facility] 08-16-2024 05:19-0400 Body mass index (BMI) [Ratio] 28.9 kg/m2 Mita Dejuan VISOR INSTALLER-C Work Phone: [facility] 08-16-2024 05:19-0400 Body weight 88.8 kg Mita Dejuan VISOR INSTALLER-C Work Phone: [facility] 08-15-2024 15:20-0400 Body height 175.26 cm Mita Dejuan VISOR INSTALLER-C Work Phone: [facility] 07-13-2024 14:57-0400 Body temperature 97.8 [degF] Mita Dejuan VISOR INSTALLER-C Work Phone: [facility] 07-13-2024 14:57-0400 Body weight 85.72 kg Mita Dejuan VISOR INSTALLER-C Work Phone: [facility] 07-13-2024 14:57-0400 Diastolic blood pressure 79 mm[Hg] Mita Dejuan VISOR INSTALLER-C Work Phone: [facility] 07-13-2024 14:57-0400 Heart rate 80 /min Mita Dejuan VISOR INSTALLER-C Work Phone: [facility] 07-13-2024 14:57-0400 Respiratory rate 16 /min Mita Dejuan VISOR INSTALLER-C Work Phone: [facility] 07-13-2024 14:57-0400 SaO2% (BldA) [Mass fraction] 97 % Mita Dejuan VISOR INSTALLER-C Work Phone: [facility] 07-13-2024 14:57-0400 Systolic blood pressure 158 mm[Hg] Mita Dejuan VISOR INSTALLER-C Work Phone: [facility] 06-23-2024 09:35-0400 Body temperature 97.8 [degF] Mita Dejuan VISOR INSTALLER-C Work Phone: [facility] 06-23-2024 09:35-0400 Body weight 84.36 kg Mita Dejuan VISOR INSTALLER-C Work Phone: [facility] 06-23-2024 09:35-0400 Diastolic blood pressure 86 mm[Hg] Mita Dejuan VISOR INSTALLER-C Work Phone: [facility] 06-23-2024 09:35-0400 Heart rate 60 /min Mita Dejuan VISOR INSTALLER-C Work Phone: [facility] 06-23-2024 09:35-0400 Respiratory rate 16 /min Mita Dejuan VISOR INSTALLER-C Work Phone: [facility] 06-23-2024 09:35-0400 Systolic blood pressure 148 mm[Hg] Mita Dejuan VISOR INSTALLER-C Work Phone: [facility] 06-07-2024 09:33-0500 Body height 175.26 cm Mita Dejuan VISOR INSTALLER-C Work Phone: [facility] 06-07-2024 09:33-0500 Body mass index (BMI) [Ratio] 27.6 kg/m2 Mita Dejuan VISOR INSTALLER-C Work Phone: [facility] 06-07-2024 09:33-0500 Body weight 84.82 kg Mita Dejuan VISOR INSTALLER-C Work Phone: [facility] 06-07-2024 09:33-0500 Diastolic blood pressure 69 mm[Hg] Mita Dejuan VISOR INSTALLER-C Work Phone: [facility] 06-07-2024 09:33-0500 Heart rate 73 /min Mita Zaidi VISOR INSTALLER-C Work Phone: [facility] 06-07-2024 09:33-0500 Respiratory rate 18 /min Mita Zaidi VISOR INSTALLER-C Work Phone: [facility] 06-07-2024 09:33-0500 Systolic blood pressure 176 mm[Hg] Mitasravan Zaidi VISOR INSTALLER-C Work Phone: [facility] 07-05-2023 00:40-0400 Body weight 84.14 kg VISOR INSTALLER-C Mita Dejuan Work Phone: [facility] 06-21-2023 09:19-0400 Body height 176.53 cm VISOR INSTALLER-C Mita Dejuan Work Phone: [facility] 06-21-2023 09:19-0400 Body weight 84.14 kg VISOR INSTALLER-C Mita Dejuan Work Phone: [facility] 06-02-2023 13:45-0500 Body height 176.[address] Yash Estrada Work Phone: [facility] 06-02-2023 13:45-0500 Body mass index (BMI) [Ratio] 26.4 kg/m2 Dr. Yash Estrada Work Phone: [facility] 06-02-2023 13:45-0500 Body weight 82.[address] Yash Estrada Work Phone: [facility] 06-02-2023 13:45-0500 Diastolic blood pressure 70 mm[Hg] Dr. Yash Estrada Work Phone: [facility] 06-02-2023 13:45-0500 Heart rate 69 /min Dr. Yash Estrada Work Phone: [facility] 06-02-2023 13:45-0500 Respiratory rate 18 /min Dr. Yash Estrada Work Phone: [facility] 06-02-2023 13:45-0500 Systolic blood pressure 145 mm[Hg] Dr. Yash Estrada Work Phone: [facility] 05-24-2023 10:39-0500 Body weight 84.[address] Yash Estrada Work Phone: [facility] 05-19-2023 09:49-0500 Body temperature 97.2 [degF] Dr. Yash Estrada Work Phone: [facility] 05-19-2023 09:49-0500 Diastolic blood pressure 78 mm[Hg] Dr. Yash Estrada Work Phone: [facility] 05-19-2023 09:49-0500 Heart rate 74 /min Dr. Yash Estrada Work Phone: [facility] 05-19-2023 09:49-0500 Respiratory rate 14 /min Dr. Yash Estrada Work Phone: [facility] 05-19-2023 09:49-0500 SaO2% (BldA) [Mass fraction] 99 % Dr. Yash Estrada Work Phone: [facility] 05-19-2023 09:49-0500 Systolic blood pressure 138 mm[Hg] Dr. Yash Estrada Work Phone: [facility] 05-18-2023 13:36-0500 Body height 175.[address] Yash Estrada Work Phone: [facility] 05-18-2023 13:36-0500 Body mass index (BMI) [Ratio] 26.5 kg/m2 Dr. Yash Estrada Work Phone: [facility] 05-18-2023 13:36-0500 Body weight 81.[address] Yash Estrada Work Phone: [facility] 05-18-2023 12:32-0500 Body temperature 97.6 [degF] DO Love Crowley Work Phone: [facility] 05-18-2023 12:32-0500 Diastolic blood pressure 76 mm[Hg] DO Love Keo Work Phone: [facility] 05-18-2023 12:32-0500 Heart rate 89 /min DO Love Keo Work Phone: [facility] 05-18-2023 12:32-0500 Respiratory rate 16 /min DO Love Keo Work Phone: [facility] 05-18-2023 12:32-0500 SaO2% (BldA) [Mass fraction] 99 % DO Love Keo Work Phone: [facility] 05-18-2023 12:32-0500 Systolic blood pressure 130 mm[Hg] DO Love Keo Work Phone: [facility] 05-18-2023 10:22-0500 Inhaled oxygen flow rate 2 L/min DO Love Keo Work Phone: [facility] 05-18-2023 09:58-0500 Body height 175.26 cm DO Love Keo Work Phone: [facility] 05-18-2023 09:58-0500 Body mass index (BMI) [Ratio] 27.1 kg/m2 DO Love Keo Work Phone: [facility] 05-18-2023 09:58-0500 Body weight 83.46 kg DO Love Keo Work Phone: [facility] 04-26-2023 14:56-0500 Body height 176.53 cm DO Love Keo Work Phone: [facility] 04-26-2023 14:50-0500 Body mass index (BMI) [Ratio] 27.1 kg/m2 DO Love Keo Work Phone: [facility] 04-26-2023 14:50-0500 Body weight 83.46 kg DO Love Keo Work Phone: [facility] 04-26-2023 14:50-0500 Diastolic blood pressure 64 mm[Hg] DO Love Keo Work Phone: [facility] 04-26-2023 14:50-0500 Heart rate 79 /min DO Love Keo Work Phone: [facility] 04-26-2023 14:50-0500 Respiratory rate 18 /min DO Love Keo Work Phone: [facility] 04-26-2023 14:50-0500 SaO2% (BldA) [Mass fraction] 96 % DO Love Keo Work Phone: [facility] 04-26-2023 14:50-0500 Systolic blood pressure 125 mm[Hg] DO Love Eko Work Phone: [facility] 04-23-2023 10:40-0500 Body mass index (BMI) [Ratio] 25.9 kg/m2 DO Love Keo Work Phone: [facility] 04-23-2023 10:18-0500 Diastolic blood pressure 62 mm[Hg] DO Love Keo Work Phone: [facility] 04-23-2023 10:18-0500 Heart rate 72 /min DO Love Keo Work Phone: [facility] 04-23-2023 10:18-0500 SaO2% (BldA) [Mass fraction] 98 % DO Love Keo Work Phone: [facility] 04-23-2023 10:18-0500 Systolic blood pressure 130 mm[Hg] DO Love Keo Work Phone: [facility] 04-23-2023 10:04-0500 Body weight 80.73 kg DO Love Keo Work Phone: [facility] 04-13-2023 08:00-0500 Body temperature 98 [degF] DO Love Keo Work Phone: [facility] 04-13-2023 08:00-0500 Diastolic blood pressure 62 mm[Hg] DO Love Keo Work Phone: [facility] 04-13-2023 08:00-0500 Heart rate 65 /min DO Love Keo Work Phone: [facility] 04-13-2023 08:00-0500 Respiratory rate 17 /min DO Love Keo Work Phone: [facility] 04-13-2023 08:00-0500 SaO2% (BldA) [Mass fraction] 98 % DO Love Keo Work Phone: [facility] 04-13-2023 08:00-0500 Systolic blood pressure 123 mm[Hg] DO Love Keo Work Phone: [facility] 04-13-2023 05:28-0500 Body mass index (BMI) [Ratio] 25.7 kg/m2 DO Love Keo Work Phone: [facility] 04-13-2023 05:28-0500 Body weight 80.2 kg DO Love Keo Work Phone: [facility] 04-12-2023 06:43-0500 Body mass index (BMI) [Ratio] 25.7 kg/m2 DO Love Keo Work Phone: [facility] 04-12-2023 06:43-0500 Body weight 80.4 kg DO Love Keo Work Phone: [facility] 04-12-2023 06:00-0500 Body temperature 97.3 [degF] DO Love Keo Work Phone: [facility] 04-12-2023 06:00-0500 Diastolic blood pressure 60 mm[Hg] DO Love Keo Work Phone: [facility] 04-12-2023 06:00-0500 Heart rate 73 /min DO Love Keo Work Phone: [facility] 04-12-2023 06:00-0500 Respiratory rate 16 /min DO Love Keo Work Phone: [facility] 04-12-2023 06:00-0500 SaO2% (BldA) [Mass fraction] 96 % DO Love Keo Work Phone: [facility] 04-12-2023 06:00-0500 Systolic blood pressure 150 mm[Hg] DO Love Keo Work Phone: [facility] 04-12-2023 00:00-0500 Inhaled oxygen flow rate 2 L/min DO Love Keo Work Phone: [facility] 04-11-2023 11:12-0500 Body height 176.53 cm DO Love Keo Work Phone: [facility] 04-10-2023 13:00-0500 Body temperature 97.9 [degF] DO Love Keo Work Phone: [facility] 04-10-2023 13:00-0500 Diastolic blood pressure 78 mm[Hg] DO Love Keo Work Phone: [facility] 04-10-2023 13:00-0500 Heart rate 70 /min DO Love Keo Work Phone: [facility] 04-10-2023 13:00-0500 Respiratory rate 16 /min DO Love Keo Work Phone: [facility] 04-10-2023 13:00-0500 SaO2% (BldA) [Mass fraction] 99 % DO Love Keo Work Phone: [facility] 04-10-2023 13:00-0500 Systolic blood pressure 144 mm[Hg] DO Love Keo Work Phone: [facility] 04-10-2023 08:48-0500 Body mass index (BMI) [Ratio] 27.1 kg/m2 DO Love Keo Work Phone: [facility] 04-10-2023 08:48-0500 Body weight 83.4 kg DO Love Keo Work Phone: [facility] 04-10-2023 08:44-0500 Body height 175.26 cm DO Love Keo Work Phone: [facility] 02-16-2023 14:20-0500 Body temperature 97.4 [degF] DO Love Keo Work Phone: [facility] 02-16-2023 14:20-0500 Diastolic blood pressure 68 mm[Hg] DO Love Keo Work Phone: [facility] 02-16-2023 14:20-0500 Heart rate 68 /min DO Love Keo Work Phone: [facility] 02-16-2023 14:20-0500 Respiratory rate 18 /min DO Love Keo Work Phone: [facility] 02-16-2023 14:20-0500 SaO2% (BldA) [Mass fraction] 99 % DO Love Keo Work Phone: [facility] 02-16-2023 14:20-0500 Systolic blood pressure 120 mm[Hg] DO Love Keo Work Phone: [facility] 02-16-2023 12:57-0500 Body height 175.26 cm DO Love Keo Work Phone: [facility] 02-16-2023 12:57-0500 Body mass index (BMI) [Ratio] 25.9 kg/m2 DO Love Keo Work Phone: [facility] 02-16-2023 12:57-0500 Body weight 79.9 kg DO Love Keo Work Phone: [facility] 01-18-2023 08:43-0400 Body mass index (BMI) [Ratio] 26.1 kg/m2 DO Love Keo Work Phone: [facility] 01-18-2023 08:43-0400 Body weight 80.28 kg DO Love Keo Work Phone: [facility] 12-08-2022 08:57-0400 Body temperature 98.1 [degF] DO Love Koe Work Phone: [facility] 12-08-2022 08:57-0400 Diastolic blood pressure 68 mm[Hg] DO Love Keo Work Phone: [facility] 12-08-2022 08:57-0400 Heart rate 80 /min DO Love Keo Work Phone: [facility] 12-08-2022 08:57-0400 Respiratory rate 18 /min DO Love Keo Work Phone: [facility] 12-08-2022 08:57-0400 SaO2% (BldA) [Mass fraction] 94 % DO Love Keo Work Phone: [facility] 12-08-2022 08:57-0400 Systolic blood pressure 146 mm[Hg] DO Love Keo Work Phone: [facility] 12-08-2022 01:05-0400 Inhaled oxygen flow rate 2 L/min DO Love Keo Work Phone: [facility] 12-07-2022 09:14-0400 Body height 176.53 cm DO Love Keo Work Phone: [facility] 12-07-2022 09:14-0400 Body mass index (BMI) [Ratio] 25.4 kg/m2 DO Love Keo Work Phone: [facility] 12-07-2022 09:14-0400 Body weight 79.2 kg DO Love Keo Work Phone: [facility] 12-06-2022 20:54-0400 Body temperature 96.8 [degF] [facility] 12-06-2022 20:54-0400 Diastolic blood pressure 69 mm[Hg] [facility] 12-06-2022 20:54-0400 Heart rate 67 /min [facility] 12-06-2022 20:54-0400 Respiratory rate 18 /min [facility] 12-06-2022 20:54-0400 SaO2% (BldA) [Mass fraction] 94 % [facility] 12-06-2022 20:54-0400 Systolic blood pressure 163 mm[Hg] [facility] 12-06-2022 15:44-0400 Body height 175.26 cm [facility] 12-06-2022 15:44-0400 Body mass index (BMI) [Ratio] 27.2 kg/m2 [facility] 12-06-2022 15:44-0400 Body weight 83.59 kg [facility] 11-30-2022 20:12-0400 Diastolic blood pressure 75 mm[Hg] [facility] 11-30-2022 20:12-0400 Heart rate 80 /min [facility] 11-30-2022 20:12-0400 Respiratory rate 18 /min [facility] 11-30-2022 20:12-0400 SaO2% (BldA) [Mass fraction] 97 % [facility] 11-30-2022 20:12-0400 Systolic blood pressure 152 mm[Hg] [facility] 11-30-2022 19:11-0400 Body height 175.26 cm [facility] 11-30-2022 19:11-0400 Body mass index (BMI) [Ratio] 27.3 kg/m2 [facility] 11-30-2022 19:11-0400 Body temperature 98 [degF] [facility] 11-30-2022 19:11-0400 Body weight 84.2 kg [facility] Encounters Encounter Date Encounter Type Care Provider Facility Start: 12-18-2024 End: 12-18-2024 ambulatory Mita CAR Work Phone: -[facility] Start: 12-18-2024 End: 12-18-[address] Markell Humphrey MD -[facility] Work Phone: Start: 10-04-2024 End: 10-04-2024 ambulatory Jose Manuel H Roof VISOR INSTALLER-C Work Phone: -Laboratory Start: 10-04-2024 End: 10-04-2024 Patient encounter procedure Mita Zaidi VISOR INSTALLER-C -Laboratory Work Phone: Start: 10-04-2024 End: 10-04-2024 ambulatory Mita Zaidi Facility:[facility] Start: 09-29-2024 End: 09-29-[address] Eamon Cortez MD -[facility] Start: 09-29-2024 End: 09-29-2024 ambulatory Mita Zaidi VISOR INSTALLER-C Work Phone: -[facility] Start: 09-11-2024 Encounter for other preprocedural examination Senthil Noel [facility] Start: 09-06-2024 Non-patient / Non-visit Dr. Senthil mayorga MD -[facility] Start: 09-06-2024 End: 09-06-2024 ambulatory Mita Zaidi VISOR INSTALLER-C Work Phone: [facility] Work Phone: Start: 09-06-2024 End: 09-06-2024 Patient encounter procedure Pauly ENGEL -Cardiovascular Services Work Phone: Start: 09-06-2024 End: 09-06-2024 ambulatory Mita Zaidi Facility:[facility] Start: 08-30-2024 End: 08-30-2024 Patient encounter procedure Pauly ENGEL -[facility] Work Phone: Start: 08-30-2024 End: 08-30-2024 ambulatory Mita Zaidi VISOR INSTALLER-C Work Phone: [facility] Work Phone: Start: 08-16-2024 Non-patient / Non-visit Pauly ENGEL -[facility] Start: 08-15-2024 ambulatory Mita Zaidi Facility:[facility] Start: 08-15-2024 End: 08-16-2024 Evaluation and management of inpatient Dr. Senthil Noel MD -Intensive Care Unit Work Phone: Start: 08-15-2024 ambulatory Mita Zaidi Facility:[facility] Start: 08-15-2024 Non-patient / Non-visit Dr. Senthil mayorga MD -[facility] Start: 07-13-2024 End: 07-13-[address] Senthil Noel MD -[facility] Work Phone: Start: 07-13-2024 End: 07-13-2024 ambulatory iMta Zaidi Facility:[facility] Start: 07-06-2024 End: 07-06-2024 ambulatory Mita Zaidi VISOR INSTALLER-C Work Phone: [facility] Work Phone: Start: 07-06-2024 End: 07-06-2024 Patient encounter [facility] Work Phone: Start: 07-06-2024 End: 07-06-2024 ambulatory Mita Dejuan Facility:[facility] Start: 06-26-2024 ambulatory [facility] Facility:[facility] Start: 06-23-2024 End: 06-23-2024 Patient encounter procedure Pauly ENGEL -[facility] Work Phone: Start: 06-23-2024 End: 06-23-2024 ambulatory Jose Manuel Rocha NP Facility:[facility] Start: 06-08-2024 Non-patient / Non-visit Dr. Senthil mayorga MD -[facility] Start: 06-08-2024 End: 06-08-2024 ambulatory Mita Zaidi VISOR INSTALLER-C Work Phone: [facility] Work Phone: Start: 06-08-2024 End: 06-08-2024 Patient encounter procedure Jose Manuel Rocha VISOR INSTALLER-C -Cardiovascular Services Work Phone: Start: 06-07-2024 Encounter for preprocedural cardiovascular examination Jose Manuel Rocha NP [facility] Start: 06-07-2024 End: 06-07-2024 Patient encounter procedure Jose Manuel Rocha NP-C -[facility] Work Phone: Start: 06-07-2024 End: 06-07-2024 Patient encounter status Jose Manuel Colin Aj VISOR INSTALLER-C [facility] Comment on above: Cervical surgery. No t scheduled yet Start: 06-07-2024 End: 06-08-2024 ambulatory Jose Manuel Rocha NP Facility:[facility] Start: 05-04-2024 End: 05-04-[address] Siria Velazquez DO -Laboratory, Phy Office 3rd Flr Start: 05-04-2024 End: 05-04-2024 ambulatory Mita Zaidi Facility:[facility] Start: 04-20-2024 End: 04-20-[address] Yousif Bettencourt MD -[facility] Work Phone: Start: 04-20-2024 End: 04-20-2024 ambulatory Yousif Bettencourt [place] [place] Start: 04-18-2024 End: 04-18-2024 Patient encounter procedure Mita Zaidi VISOR INSTALLER-C -Laboratory Work Phone: Start: 04-17-2024 End: 04-18-2024 ambulatory Mita Zaidi VISOR INSTALLER-C Work Phone: [facility] Work Phone: Start: 04-17-2024 End: 04-17-2024 Patient encounter procedure Mita Zaidi VISOR INSTALLER-C -Laboratory, Specimen Work Phone: Start: 04-17-2024 End: 04-17-2024 ambulatory Mita Zaidi Facility:[facility] Start: 02-25-2024 End: 02-25-2024 Patient encounter procedure Mita Zaidi VISOR INSTALLER-C -Laboratory, Specimen Work Phone: Start: 02-25-2024 End: 02-25-2024 ambulatory Mita Poyen Facility:[facility] Start: 02-04-2024 End: 02-04-2024 Emergency department patient visit Ian Bernal Facility:[facility] Start: 12-31-2023 End: 12-31-2023 ambulatory Tone Horton Facility:[facility] Start: 12-30-2023 End: 12-30-2023 ambulatory Mita Ziadi Facility:[facility] Start: 11-29-2023 End: 11-29-2023 ambulatory Mita Zaidi Facility:[facility] Start: 11-25-2023 End: 11-25-2023 ambulatory Laxmi Teresaing Facility:[facility] Start: 10-28-2023 End: 10-28-2023 ambulatory Tone Horton Facility:[facility] Start: 10-13-2023 ambulatory Andrew Calle MD Work Phone: [facility] Start: 10-13-2023 Patient encounter procedure Andrew Calle MD Work Phone: [facility] Comment on above: colonoscopy/office v isit due/quality team calling Start: 08-02-2023 End: 08-02-2023 ambulatory VISOR INSTALLER-C Mita Zaidi Work Phone: [facility] Work Phone: Start: 08-02-2023 End: 08-02-2023 Patient encounter procedure VISOR INSTALLER-C Mita Zaidi Work Phone: [facility]-Radiology, [facility] Work Phone: Start: 07-21-2023 End: 08-03-2023 ambulatory VISOR INSTALLER-C Mita Zaidi Work Phone: [facility] Work Phone: Start: 07-21-2023 End: 08-03-2023 Discharged Recurring VISOR INSTALLER-C Mita Zaidi Work Phone: [facility]-Cardiac Rehab Work Phone: Start: 07-21-2023 Registered Recurring VISOR INSTALLER-C Cassie Zaidi Work Phone: [facility]-Cardiac Rehab Work Phone: Start: 07-20-2023 End: 07-20-2023 ambulatory VISOR INSTALLER-C Mita Zaidi Work Phone: [facility] Work Phone: Start: 07-20-2023 End: 07-20-2023 Patient encounter procedure VISOR INSTALLER-C Mita Zaidi Work Phone: [facility]-Cat Scan, [facility] Work Phone: Start: 07-02-2023 End: 07-04-2023 ambulatory VISOR INSTALLER-C Mita Zaidi Work Phone: [facility] Work Phone: Start: 07-02-2023 End: 07-04-2023 Discharged Recurring VISOR INSTALLER-C Mita Zaidi Work Phone: [facility]-Cardiac Rehab Work Phone: Start: 06-30-2023 Registered Recurring VISOR INSTALLER-C Cassie Zaidi Work Phone: [facility]-Cardiac Rehab Work Phone: Start: 06-24-2023 End: 06-24-2023 ambulatory VISOR INSTALLER-C Mita Zaidi Work Phone: [facility] Work Phone: Start: 06-24-2023 End: 06-24-2023 Patient encounter procedure VISOR INSTALLER-C Mita Zaidi Work Phone: [facility]-Laboratory Work Phone: Start: 06-21-2023 Registered Recurring VISOR INSTALLER-C Cassie Zaidi Work Phone: [facility]-Cardiac Rehab Work Phone: Start: 06-18-2023 End: 06-18-2023 ambulatory VISOR INSTALLER-C Mita Zaidi Work Phone: [facility] Work Phone: Start: 06-18-2023 End: 06-18-2023 Patient encounter procedure VISOR INSTALLER-C Mita Zaidi Work Phone: [facility]-Laboratory Work Phone: Start: 06-02-2023 End: 06-02-[address] Yash Estrada Work Phone: [facility] Work Phone: Start: 06-02-2023 End: 06-03-[address] Yash Estrada Work Phone: [facility] Work Phone: Start: 06-02-2023 End: 06-03-[address] Yash Estrada Work Phone: [facility]-Cardiac Rehab Work Phone: Start: 05-19-2023 Non-patient / Non-visit Dr. Ra jose e Estrada Work Phone: [facility] Work Phone: Start: 05-19-2023 Non-patient / Non-visit Dr. Ra jose e Estrada Work Phone: [facility] Start: 05-18-2023 Non-patient / Non-visit Dr. Ra jose e Estrada Work Phone: [facility] Work Phone: Start: 05-18-2023 Non-patient / Non-visit Dr. Ra jose e Estrada Work Phone: [facility] Start: 05-18-2023 End: 05-19-2023 Evaluation and management of inpatient DO Love Crowley Work Phone: [facility]-Progressive Care Unit Work Phone: Start: 05-18-2023 observation encounter DO Jack Crowley Work Phone: [facility] Work Phone: Start: 05-17-2023 Registered Recurring DO Sussy Crowley Work Phone: [facility]-Cardiac Rehab Work Phone: Start: 05-05-2023 End: 05-05-2023 ambulatory DO Love Crowley Work Phone: [facility] Work Phone: Start: 05-05-2023 End: 05-05-2023 Discharged Recurring DO Love Pringlenger Work Phone: [facility]-Cardiac Rehab Work Phone: Start: 04-26-2023 End: 04-26-2023 Patient encounter procedure DO Love Pringlenger Work Phone: [facility] Work Phone: Start: 04-26-2023 Registered Recurring DO Sussy n Keo Work Phone: [facility]-Cardiac Rehab Work Phone: Start: 04-23-2023 End: 04-23-2023 ambulatory DO Love M Keo Work Phone: [facility] Work Phone: Start: 04-23-2023 End: 04-23-2023 Patient encounter procedure DO Love Pringlenger [facility] Work [facility] Start: 04-22-2023 End: 04-22-2023 ambulatory DO Love M Keo Work Phone: [facility] Work Phone: Start: 04-22-2023 End: 04-22-2023 Patient encounter procedure DO Love Pringlenger Work Phone: [facility]-Laboratory Work Phone: Start: 04-14-2023 End: 04-14-2023 ambulatory DO Love M Keo Work Phone: [facility] Work Phone: Start: 04-14-2023 End: 04-14-2023 Patient encounter procedure DO Lovetonya Pringlenger [facility] Start: 04-13-2023 Non-patient / Non-visit DO Kri stin Keo Work Phone: [facility] Work Phone: Start: 04-12-2023 Non-patient / Non-visit DO Kri stin Keo Work Phone: [facility] Start: 04-12-2023 Non-patient / Non-visit DO Kri stin Keo Work Phone: [facility] Start: 04-12-2023 Non-patient / Non-visit DO Kri stin Keo Work Phone: [facility] Work Phone: Start: 04-11-2023 Non-patient / Non-visit DO Kri stin Keo Work Phone: [facility] Start: 04-11-2023 Non-patient / Non-visit DO Kri stin Keo Work Phone: [facility] Work Phone: Start: 04-10-2023 Non-patient / Non-visit DO Kri stin Keo Work Phone: [facility] Work Phone: Start: 04-10-2023 Non-patient / Non-visit DO Kri stin Keo Work Phone: [facility] Start: 04-10-2023 End: 04-13-2023 Evaluation and management of inpatient DO Love Keo Work Phone: [facility]-Intensive Care Unit Work Phone: Start: 04-10-2023 End: 04-10-2023 Emergency department patient visit DO Love Keo Work Phone: [facility]-Emergency Department Work Phone: Start: 04-06-2023 End: 04-06-2023 ambulatory DO Love M Keo Work Phone: [facility] Work Phone: Start: 04-06-2023 End: 04-06-2023 Patient encounter procedure DO Love Crowley Work Phone: [facility]-Laboratory Work Phone: Start: 03-15-2023 End: 03-15-2023 ambulatory DO Love Crowley Work Phone: [facility] Work Phone: Start: 03-15-2023 End: 03-15-2023 Patient encounter procedure DO Love Crowley Work Phone: [facility]-Laboratory Work Phone: Start: 02-16-2023 Non-patient / Non-visit DO Evette Crowley Work Phone: [facility] Start: 02-16-2023 End: 02-16-2023 Admission to same day surgery center DO Love Crowley Work Phone: [facility]-Endoscopy Work Phone: Start: 02-16-2023 End: 02-16-2023 ambulatory DO Love Crowley Work Phone: [facility] Work Phone: Start: 01-18-2023 Non-patient / Non-visit DO Evette Crowley Work Phone: [facility] Work Phone: Start: 12-22-2022 End: 12-22-2022 Patient encounter procedure DO Love Crowley Work Phone: [facility] Work Phone: Start: 12-17-2022 End: 12-17-2022 ambulatory DO Love Crowley Work Phone: [facility] Work Phone: Start: 12-17-2022 End: 12-17-2022 Patient encounter procedure DO Love Pringlenger Work Phone: [facility]-Laboratory Work Phone: Start: 12-08-2022 Non-patient / Non-visit DO Krdanielito mantillan Keo Work Phone: [facility] Start: 12-07-2022 Non-patient / Non-visit DO Kri stin Keo Work Phone: [facility] Work Phone: Start: 12-07-2022 Non-patient / Non-visit DO Kri stin Keo Work Phone: [facility] Start: 12-06-2022 Non-patient / Non-visit DO Kri stin Keo Work Phone: [facility] Work Phone: Start: 12-06-2022 End: 12-08-2022 Evaluation and management of inpatient [facility]-Medical Surgical 3 Work Phone: Start: 11-30-2022 End: 11-30-2022 Emergency department patient visit [facility]-Emergency Department Work Phone: Start: 09-15-2022 End: 09-15-2022 ambulatory [facility] Work Phone: Start: 09-15-2022 End: 09-15-2022 Patient encounter procedure [facility]-Laboratory Start: 06-16-2022 End: 06-16-2022 ambulatory [facility] Work Phone: Start: 06-16-2022 End: 06-16-2022 Patient encounter procedure [facility]-Laboratory Start: 03-17-2022 End: 03-17-2022 ambulatory [facility] Work Phone: Start: 03-17-2022 End: 03-17-2022 Patient encounter procedure [facility]-Laboratory Start: 12-16-2021 End: 12-16-2021 ambulatory [facility] Work Phone: Start: 12-16-2021 End: 12-16-2021 [facility] Start: 11-14-2021 End: 11-14-2021 Patient encounter procedure [facility] Start: 10-30-2021 End: 10-30-2021 [facility] Start: 10-20-2021 End: 10-20-2021 [facility] Start: 10-18-2021 End: 10-18-2021 [facility] Start: 09-09-2021 Refill Andrew Clale MD Work Phone: [facility] Comment on above: Refill Request Start: 08-27-2021 Telephone encounter Jovon Calle MD Work Phone: [facility] Comment on above: Faxed to [facility] Start: 05-22-2021 End: 05-22-2021 Discharged Recurring [facility]-Massage Therapy, [facility] Start: 05-22-2021 Registered Recurring [facility], [facility] Procedures Date Procedure Procedure Detail Performing Clinician Start: 10-04-2024 Vitamin D, 25-hydroxy measurement Jose Manuel CAR Work Phone: Comment on above: Vitamin D StatusDeficiency: <20 ng/mL (5 0nmol/L)Insufficiency: 20-30 ng/mL (50-75 nmol/L)Sufficiency: 30-100 ng/mL (75-250 nmol/L)Toxicity: >100 ng/mL (>250 nmol/L)Previous reported result: 34.7 ng/mLEdited by: EZEKIEL on 10/04/24:0947 AMENDED REPORT 10/04/24 0947 Vitamin D 25-OH previously reported as: 34.7 ng/mL Vitamin D StatusDeficiency: <20 ng/mL (50nmol/L)Insufficiency: 20-30 ng/mL (50-75 nmol/L)Sufficiency: 30-100 ng/mL (75-250 nmol/L)Toxicity: >100 ng/mL (>250 nmol/L) Start: 09-29-2024 X-ray of cervical spine Jose Manuel Rocha VISOR INSTALLER-C Work Phone: Start: 08-15-2024 Coagulation time, activated Mita Zaidi VISOR INSTALLER-C Work Phone: Start: 07-06-2024 CT angiography of head and neck Mita Zaidi VISOR INSTALLER-C Work Phone: Start: 06-07-2024 Evaluation of diagnostic study results Mita Zaidi VISOR INSTALLER-C Work Phone: Start: 05-04-2024 Microalbuminuria measurement Mita Zaidi VISOR INSTALLER-C Work Phone: Start: 05-04-2024 Urine microalbumin/creatinine ratio measurement Mita Zaidi VISOR INSTALLER-C Work Phone: Start: 04-18-2024 Measurement of renal function Mita Zaidi VISOR INSTALLER-C Work Phone: Comment on above: GFR Calc Start: 04-17-2024 Urine culture Mita Zaidi VISOR INSTALLER-C Work Phone: Start: 02-25-2024 Urine culture Mita Zaidi VISOR INSTALLER-C Work Phone: Start: 08-02-2023 Radiography of esophagus VISOR INSTALLER-C Mita Renner ar Work Phone: Start: 07-20-2023 CT of soft tissues of neck with contrast VISOR INSTALLER-C Mita Zaidi Work Phone: Start: 05-18-2023 Plain chest X-ray DO Love Keo Work Phone: Start: 04-10-2023 Plain chest X-ray DO Love Penaer Work Phone: Start: 02-16-2023 Colonoscopy DO Love Penaer Work Phone: Start: 12-07-2022 Cholangiogram DO Love Crowley Work Phone: Start: 12-07-2022 Fluoroscopic guidance DO Love Crowley Work Phone: Start: 12-07-2022 Total cholecystectomy and exploration of common bile duct DO Lovetonya Pringlenger Work Phone: Start: 12-06-2022 US scan of [...] Treatment Date Care Activity Detail Author Start: 09-29-2024 X-ray of cervical spine Cerv Spine 4 or 5 Views [facility] Start: 09-29-2024 XR Cervical spine 4 or 5 Views [facility] Start: 08-16-2024 [facility] Start: 08-16-2024 Patient discharge [facility] Start: 08-16-2024 Inhalation therapy procedure [facility] Start: 08-15-2024 Following clinical p athway protocol [facility] Start: 08-15-2024 Ambulation without limitation [facility] Start: 08-15-2024 Assessment of risk o f venous thromboembolism [facility] Start: 08-15-2024 Bedrest [facility] Start: 08-15-2024 Care regimes management [facility] Start: 08-15-2024 Catheterization of vein [facility] Start: 08-15-2024 Continuous pulse oximetry [facility] Start: 08-15-2024 Deep breathing and coughing exercises [facility] Start: 08-15-2024 Incentive spirometry [facility] Start: 08-15-2024 Insertion of cathete r into peripheral vein [facility] Start: 08-15-2024 Measuring intake and output [facility] Start: 08-15-2024 Notification of physician [facility] Start: 08-15-2024 Oxygen therapy [facility] Start: 08-15-2024 Patient referral to dietitian [facility] Start: 08-15-2024 Providing care accor ding to standard [facility] Start: 08-15-2024 Provision of activit y privileges [facility] Start: 08-15-2024 Pulse taking [facility] Start: 08-15-2024 Referral to occupati onal therapist [facility] Start: 08-15-2024 Referral to service [facility] Start: 08-15-2024 Taking patient vital signs [facility] Start: 08-15-2024 Vital signs measurements [facility] Start: 08-15-2024 End: 08-15-2024 [facility] Start: 08-15-2024 End: 08-15-2024 Elevation of head of bed [facility] Start: 08-15-2024 Verification routine [facility] Start: 08-15-2024 Admission procedure [facility] Start: 08-15-2024 Insertion of carotid artery stent Carotidstent (Right) [facility] Start: 08-15-2024 Maintenance of invas [place] device [facility] Start: 12-05-2023 Influenza vaccination Influenza Vacc ine (#1) [facility] Start: 05-19-2023 Patient discharge [facility] Start: 05-18-2023 Following clinical p athway protocol [facility] Start: 05-18-2023 Ambulation without limitation [facility] Start: 05-18-2023 Assessment of risk o f venous thromboembolism [facility] Start: 05-18-2023 Catheterization of vein [facility] Start: 05-18-2023 Insertion of cathete r into peripheral vein [facility] Start: 05-18-2023 Measuring intake and output [facility] Start: 05-18-2023 Providing care accor ding to [facility] Start: 05-18-2023 Referral to buyer assistant [facility] Start: 05-18-2023 [facility] Start: 05-18-2023 Admission procedure [facility] Start: 05-18-2023 Troponin I measurement [facility] Start: 05-18-2023 Hospital admission, emergency, from emergency room, medical nature [facility] Start: 05-18-2023 [facility] Start: 04-14-2023 Blood chemistry [facility] Start: 04-13-2023 Patient discharge [facility] Start: 04-13-2023 Blood chemistry [facility] Start: 04-12-2023 Patient referral [facility] Work Phone: Start: 04-11-2023 Following clinical p athway protocol [facility] Start: 04-11-2023 Care planning and pr oblem solving actions [facility] Start: 04-10-2023 Continuous positive airway pressure ventilation treatment [facility] Start: 04-10-2023 Assessment of risk o f venous thromboembolism [facility] Start: 04-10-2023 Care regimes management [facility] Start: 04-10-2023 Continuous pulse oximetry [facility] Start: 04-10-2023 Insertion of cathete r into peripheral vein [facility] Start: 04-10-2023 Measuring intake and output [facility] Start: 04-10-2023 Notification of physician [facility] Start: 04-10-2023 Providing care accor ding to [facility] Start: 04-10-2023 Verification routine [facility] Start: 04-10-2023 Vital signs measurements [facility] Start: 04-10-2023 [facility] Start: 04-10-2023 Ambulation without limitation [facility] Start: 04-10-2023 Cardiac monitoring [facility] Start: 04-10-2023 Cardiac rehabilitati on - phase 1 [facility] Start: 04-10-2023 Cardiac rehabilitati on - phase 2 [facility] Start: 04-10-2023 Notification of physician [facility] Start: 04-10-2023 Oxygen therapy [facility] Start: 04-10-2023 Patient discharge [facility] Start: 04-10-2023 Provision of activit y privileges [facility] Start: 04-10-2023 Taking patient vital signs [facility] Start: 04-10-2023 Vascular disease ris k assessment [facility] Start: 04-10-2023 Vital signs measurements [facility] Start: 04-10-2023 End: 04-10-2023 [facility] Start: 04-10-2023 Admission procedure [facility] Start: 04-10-2023 Catheterization of l eft heart [facility] Start: 04-10-2023 [facility] Start: 04-10-2023 Patient referral to dietitian [facility] Start: 04-05-2023 Advance Directive Discussion Advance Directive Discussion [facility] Start: 04-05-2023 Behavioral Health Screening Behavioral Health Screening [facility] Start: 02-16-2023 Patient discharge [facility] Start: 12-08-2022 Patient discharge [facility] Start: 12-07-2022 Oxygen therapy [facility] Start: 12-07-2022 Care planning and pr oblem solving actions [facility] Start: 12-07-2022 [facility] Start: 12-07-2022 [facility] Start: 12-06-2022 Application of intermittent pneumatic compression device [facility] Start: 12-06-2022 Following clinical p athway protocol [facility] Start: 12-06-2022 Care planning and pr oblem solving actions [facility] Start: 12-06-2022 Care regimes management [facility] Start: 12-06-2022 Notification of physician [facility] Start: 12-06-2022 Incentive spirometry [facility] Start: 12-06-2022 End: 12-06-2022 [facility] Start: 12-06-2022 Admission procedure [facility] Start: 12-04-2022 Covid-19 Vaccine (2022- season) Covid-19 Vaccine ( season) [facility] Start: 12-01-2022 [facility] Start: 11-30-2022 [facility] Start: 04-10-2022 Glaucoma screening Dilated Retinal E xam [facility] Start: 04-10-2022 Hepatitis C antibody , confirmatory test DILATED RETINAL EXAM [facility] Start: 03-26-2022 3 comp foot exam completed DIABETIC FOOT EXAM [facility] Start: 03-26-2022 ANNUAL PCP TEAM MACHINE BILLER 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 ANNUAL PCP TEAM CHRONIC DISEASE VISIT [facility] Start: 03-26-2022 COVID-19 VACCINE (#1) COVID-19 VACCI NE (#1) [facility] Comment on above: Postponed from 03/06 (Declined at this time) Start: 03-26-2022 Diabetic foot examination Diabetic F oot Exam [facility] Start: 03-22-2022 SERUM CREATININE SERUM CREATININE [facility] Start: 12-04-2021 Influenza vaccination INFLUENZ A (Season Ended) [facility] Start: 11-19-2021 Colonoscopy COLONOSCOPY [facility] Start: 11-19-2021 COLORECTAL CANCER SCREENING COLORECTAL CANCER SCREENING [facility] Start: 11-19-2021 Screening for malign ant neoplasm of colon [facility] Start: 09-21-2021 Hepatitis B surface antibody level LDL CHOLESTEROL [facility] Start: 09-20-2021 Hemoglobin A1c measurement HbA1C [facility] Start: 09-20-2021 Hemoglobin A1c/Hemoglobin.total in Blood HBA1C [facility] Start: 09-01-2021 Urine microalbumin profile [facility] Start: 07-06-2021 HEMOGLOBIN/HEMATOCRIT HEMOGLOBIN/HEM ATOCRIT [facility] Start: 06-21-2021 Adult depression scr eening assessment DEPRESSION SCREENING [facility] Start: 06-15-2021 Hepatitis B screening URINE ALBUMIN:CREATININE RATIO [facility] Start: 04-05-2021 ADVANCE DIRECTIVE DISCUSSION ADVANCE DIRECTIVE DISCUSSION [facility] Start: 10-02-2020 BP CONTROLLED (<130/80) BP CONTROLLE D (<130/80) [facility] Start: 2009 RSV Vaccine (1 - 1-d ose 60+ series) RSV Vaccine (1 - 1-dose 60+ series) [facility] Start: 1999 SHINGRIX VACCINE (1 of 2) ARENAS GRIX VACCINE (1 of 2) [facility] Start: 1994 COLOGUARD (FIT-DNA) COLOGUARD (FIT-D NA) [facility] Start: [address] COLONOGRAPHY [facility] Start: 1994 FECAL OCCULT BLOOD FECAL OCCULT BLOO D [facility] Start: 1994 Screening for malign ant neoplasm of colon [facility] Start: 1994 SIGMOIDOSCOPY SIGMOIDOSCOPY [facility] Start: 1955 Pneumococcal Vaccine : 65+ (1 of 2 - PCV) Pneumococcal Vaccine: 65+ (1 of 2 - PCV) [facility] Start: 1955 PNEUMOCOCCAL: 65+ (1 - PCV) PNEUMOCOCCAL: 65+ (1 - PCV) [facility] Alanine aminotransfe rase [Enzymatic activity/volume] in Serum or Plasma [facility] Albumin [Mass/volume ] in Serum or Plasma [facility] Alkaline phosphatase [Enzymatic activity/volume] in Serum or Plasma [facility] Anion gap measurement [facility] Anion gap measurement [facility] Anion gap measurement [facility] Aspartate aminotrans ferase [Enzymatic activity/volume] in Serum or Plasma [facility] Bilirubin, total measurement [facility] BUN/Creatinine ratio [facility] BUN/Creatinine ratio [facility] BUN/Creatinine ratio [facility] Calcium [Mass/volume ] in Serum or Plasma [facility] Calcium [Mass/volume ] in Serum or Plasma [facility] Calcium [Mass/volume ] in Serum or Plasma [facility] Carbon dioxide, tota l [Moles/volume] in Serum or Plasma [facility] Carbon dioxide, tota l [Moles/volume] in Serum or Plasma [facility] Carbon dioxide, tota l [Moles/volume] in Serum or Plasma [facility] Chloride [Moles/volu me] in Serum or Plasma [facility] Chloride [Moles/volu me] in Serum or Plasma [facility] Chloride [Moles/volu me] in Serum or Plasma [facility] Colonoscopy [facility] Creatinine [Moles/vo lume] in Serum or Plasma [facility] Creatinine [Moles/vo lume] in Serum or Plasma [facility] Creatinine [Moles/vo lume] in Serum or Plasma [facility] CTA Head vessels and Neck vessels W contrast IV [facility] Glucose [Mass/volume ] in Serum or Plasma [facility] Glucose [Mass/volume ] in Serum or Plasma [facility] Glucose [Mass/volume ] in Serum or Plasma [facility] Hematocrit [Volume Fraction] of Blood [facility] Hematocrit [Volume Fraction] of Blood [facility] Hematocrit [Volume Fraction] of Blood [facility] Hemoglobin [Mass/vol ume] in Blood [facility] Hemoglobin [Mass/vol ume] in Blood [facility] Hemoglobin [Mass/vol ume] in Blood [facility] Leukocytes [#/volume ] in Blood [facility] Leukocytes [#/volume ] in Blood [facility] Leukocytes [#/volume ] in Blood [facility] Magnesium [Mass/volu me] in Serum or Plasma [facility] Mean corpuscular hemoglobin concentration determination [facility] Mean corpuscular hemoglobin concentration determination [facility] Mean corpuscular hemoglobin concentration determination [facility] Mean corpuscular hemoglobin determination [facility] Mean corpuscular hemoglobin determination [facility] Mean corpuscular hemoglobin determination [facility] Measurement of renal function [facility] Measurement of renal function [facility] Measurement of renal function [facility] Neutrophil count [facility] Neutrophil count [facility] Neutrophil count [facility] Neutrophil percent differential count [facility] Neutrophil percent differential count [facility] Neutrophil percent differential count [facility] Patient Education ED Epigastric Pain Uncertain Cause [facility] Work Phone: Patient referral [facility] Work Phone: Platelets [#/volume] in Blood [facility] Platelets [#/volume] in Blood [facility] Platelets [#/volume] in Blood [facility] Potassium [Moles/vol ume] in Serum or Plasma [facility] Potassium [Moles/vol ume] in Serum or Plasma [facility] Potassium [Moles/vol ume] in Serum or Plasma [facility] Red blood cell count [facility] Red blood cell count [facility] Red blood cell count [facility] Red cell distributio n width determination [facility] Red cell distributio n width determination [facility] Red cell distributio n width determination [facility] Sodium [Moles/volume ] in Serum or Plasma [facility] Sodium [Moles/volume ] in Serum or Plasma [facility] Sodium [Moles/volume ] in Serum or Plasma [facility] Total protein measurement [facility] Urea nitrogen [Mass/volume] in Serum or Plasma [facility] Urea nitrogen [Mass/volume] in Serum or Plasma [facility] Urea nitrogen [Mass/volume] in Serum or Plasma [facility] US Carotid arteries [facility] Immunizations Immunization Date Immunization Notes Care Provider Fa alex 02-04-2024 tetanus toxoid, reduced diphtheria toxoid, and acellular pertussis vaccine, adsorbed Mita Zaidi NP-C Work Phone: [facility] 02-08-2018 influenza virus vaccine, unspecified formulation Andrew Calle MD Work Phone: [facility] 09-02-2011 tetanus toxoid, reduced diphtheria toxoid, and acellular pertussis vaccine, adsorbed Andrew Calle MD Work Phone: [facility] 10-30-1995 diphtheria and tetan us toxoids, adsorbed for pediatric use Andrew Calle MD Work Phone: [facility] Work Phone: 02-18-1993 hepatitis B vaccine, adult dosage Andrew Calle MD Work Phone: [facility] Work Phone: 08-25-1983 diphtheria and tetan us toxoids, adsorbed for pediatric use Andrew Calle MD Work Phone: [facility] Work Phone: 11-14-1973 diphtheria and tetan us toxoids, adsorbed for pediatric use Andrew Calle MD Work Phone: [facility] Work Phone: 11-12-1973 diphtheria and tetan us toxoids, adsorbed for pediatric use Andrew Calle MD Work Phone: [facility] Work Phone: 05-20-1959 trivalent poliovirus vaccine, live, oral Andrew Calle MD Work Phone: [facility] Work Phone: 04-12-1959 diphtheria and tetan us toxoids, adsorbed for pediatric use Andrew Calle MD Work Phone: [facility] Work Phone: 12-09-1956 trivalent poliovirus vaccine, live, oral Andrew Calle MD Work Phone: [facility] Work Phone: 07-31-1955 diphtheria and tetan us toxoids, adsorbed for pediatric use Andrew Calle MD Work Phone: [facility] Work Phone: 09-30-1954 diphtheria and tetan us toxoids, adsorbed for pediatric use Andrew Calle MD Work Phone: [facility] Work Phone: 08-19-1954 diphtheria and tetan us toxoids, adsorbed for pediatric use Andrew Calle MD Work Phone: [facility] Work Phone: Payers Date Payer Category Payer Self-pay [id number] 2023 Medicare [id number] 2023 Private Health Insurance [id number] 2019 Private Health Insurance HUMANA HUMANA MEDICARE SUPPLEMENT [id number] 2019-Present [phone] [address] [address] [place] [address] Indemnity [id number] 2019 Private Health Insurance HUMANA HUMANA MEDICARE SUPPLEMENT [id number] 2019-Present [phone] [address] [address] [place] [address] Indemnity [id number] 2014 Medicare MEDICARE MEDICAR E A AND B [id number] 2014-Present [phone] [address] [address] [place] [address] Medicare [id number] 2014 Medicare MEDICARE MEDICAR E A AND B [id number] 2014-Present [phone] [place] [address] Medicare [id number] Unknown [id number] Unknown [id number] Unknown MED [employer] [place]/ BENEFIT SERV [id number] Unknown [id number]. 462 Unknown [id number] 2.840.1.786471.3.579.2. 462 Unknown [id number] 2.840.1.393606.3.579.2. 462 Unknown [id number] 2.16840.1.328095.3.579.2. 462 Unknown [id number] 2.16840.1.144621.3.579.2. 462 Unknown [id number] 2.840.1.012655.3.579.2. 462 Unknown [id number] 2.840.1.816101.3.579.2. 462 Unknown [id number] 2.16.840.1.951042.3.579.2. 462 Unknown [id number] 2.840.1.411515.3.579.2. 462 Unknown [id number] 2..840.1.215863.3.579.2. 462 Unknown [id number] 2.840.1.151020.3.579.2. 462 Unknown [id number] 2.840.1.136184.3.579.2. 462 Unknown [id number] 2.840.1.092295.3.579.2. 462 Unknown [id number] 2.840.1.465758.3.579.2. 462 Unknown [id number] 2.840.1.625032.3.579.2. 462 Unknown [id number] 2.840.1.693522.3.579.2. 462 Unknown [id number] 2.840.1.622614.3.579.2. 462 Unknown [id number] .840.1.522168.3.579.2. 462 Unknown [id number] .840.1.872512.3.579.2. 462 Unknown [id number] 2.840.1.534232.3.579.2. 462 Unknown [id number] 2.840.1.790103.3.579.2. 462 Unknown [id number] 2.840.1.122274.3.579.2. 462 Unknown [id number] 2.840.1.049323.3.579.2. 462 Unknown [id number] 2.840.1.752551.3.579.2. 462 Unknown [id number] 2.840.1.035601.3.579.2. 462 Unknown [id number] 2.840.1.287835.3.579.2. 462 Unknown [id number] 2.16.840.1.863411.3.579.2. 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 (finding) [facility] Start: 1950 Sex Assigned At Not on file [facility] Start: 03-10-2020 End: 12-31-2020 History of Social function [facility] Start: 03-10-2020 End: 12-31-2020 Tobacco use panel [facility] National Score (1-100), lower number is lower risk Not on file [facility] Start: 06-22-2024 End: 07-11-2024 Sex Male (finding) [facility] Medical Equipment Procedure Code Equipment Code Equipment Origin al Text Equipment Identifier Dates Total cholecystectomy with exploration of common bile duct Open-surgery ligation clip scallop binder [id number] FDA Start: 12-07-2022 Total cholecystectomy with exploration of common bile duct Ligation clip, synthetic polymer, non-bioabsorbable [id number] FDA Start: 12-07-2022 RIKI SANTOS LG FDA Start: 11-30-2018 RIKI SANTOS LG FDA Start: 11-30-2018 RIKI SANTOS LG FDA Start: 11-30-2018 RIKI SANTOS LG FDA Start: 11-30-2018 Test blood sugar(s) 1-2 times daily. Dx: Type 2 DM - Uncontrolled E11.65 Insulin: No [id number], [id number] Start: 05-08-2019 Comment on above: Test blood sugar(s) 1-2 times daily. Dx: Type 2 DM - Uncontrolled E11.65 Insulin: No CLIP,HEMOLOCARLOS A LG WECK FDA Start: 11-30-2018 CLIP,HEMOLOCK LG [...] LG WECK FDA Start: 11-30-2018 CLIP,HEMOLOCK LG WECARLOS A FDA Start: 11-30-2018 CLIP,HEMOLOCARLOS A TSAI WECARLOS A FDA Start: 11-30-2018 Drug-eluting coronary artery stent, non-bioabsorbable- polymer-coated [id number] FDA Start: 04-10-2023 CLIP,HEMCAROLYN TSAI WECARLOS A FDA Start: 11-30-2018 CLIP,HEMOLOCARLOS A LG WECARLOS A FDA Start: 11-30-2018 CLIP,HEMCAROLYN LG WECK FDA Start: 11-30-2018 CLIP,HEMOLOCK LG WECK FDA Start: 11-30-2018 CLIP,HEMOLOCK LG WECARLOS A FDA Start: 11-30-2018 CLIP,HEMOLOCK LG WECK FDA Start: 11-30-2018 CLIP,HEMOLOCK LG WECK FDA Start: 11-30-2018 CLIP,HEMOLOCK LG WECARLOS A FDA Start: 11-30-2018 CLIP,HEMOLOCK LG WECARLOS A FDA Start: 11-30-2018 CLIP,HEMOLOCK LG WECK FDA Start: 11-30-2018 CLIP,HEMOLOCK LG WECK FDA Start: 11-30-2018 CLIP,HEMOLOCK LG WECARLOS A FDA Start: 11-30-2018 CLIP,HEMOLOCK LG WECK FDA Start: 11-30-2018 CLIP,HEMOLOCK LG WECK FDA Start: 11-30-2018 CLIP,HEMOLOCK LG WECK FDA Start: 11-30-2018 CLIP,HEMOLOCK LG WECARLOS A FDA Start: 11-30-2018 CLIP,HEMOLOCK LG WECK FDA Start: 11-30-2018 CLIP,HEMOLOCK LG WECK FDA Start: 11-30-2018 CLIP,HEMOLOCK LG WECK FDA Start: 11-30-2018 CLIP,HEMOLOCARLOS A LG WECK FDA Start: 11-30-2018 CLIP,HEMOLOCK LG [...] 11-30-2018 CLIP,HEMOLOCK LG WECK FDA Start: 11-30-2018 CLIP,HEMOLOCARLOS A LG DOUG FDA Start: 11-30-2018 CLIP,HEMCAROLYN LG DOUG FDA Start: 11-30-2018 CLIP,HEMALVAROCK LG DOUG FDA Start: 11-30-2018 CLIP,HEMALVAROCK LG WECARLOS A FDA Start: 11-30-2018 CLIP,HEMCAROLYN LG WECARLOS A FDA Start: 11-30-2018 CLIP,HEMCAROLYN LG DOUG FDA Start: 11-30-2018 CLIP,HEMCAROLYN LG DOUG FDA Start: 11-30-2018 Bare-metal carot id artery stent [id number] FDA Start: 08-15-2024 CLIP,HEMCAROLYN LG DOUG FDA Start: 11-30-2018 CLIP,HEMCAROLYN LG DOUG FDA Start: 11-30-2018 CLIP,HEMCAROLYN LG DOUG FDA Start: 11-30-2018 CLIP,HEMCAROLYN LG DOUG FDA Start: 11-30-2018 CLIP,HEMCAROLYN LG DOUG FDA Start: 11-30-2018 CLIP,HEMCAROLYN LG DOUG FDA Start: 11-30-2018 CLIP,HEMCAROLYN LG DOUG FDA Start: 11-30-2018 CLIP,HEMCAROLYN LG DOUG FDA Start: 11-30-2018 CLIP,HEMCAROLYN LG DOUG FDA Start: 11-30-2018 CLIP,HEMCAROLYN LG DOUG FDA Start: 11-30-2018 CLIP,HEMCAROLYN LG DOUG FDA Start: 11-30-2018 CLIP,HEMCAROLYN LG WECARLOS A FDA Start: 11-30-2018 Goals Date Patient Goal Desired Activity /State Functional Status Date Assessment Result Facility 08-16-2024 Functional status Ambulates [facility] Work Phone: 05-19-2023 Functional status Ambulates [facility] Work Phone: 04-13-2023 Functional status Ambulates;Bathroom Priv ilege [facility] Work Phone: 04-12-2023 Functional status Ambulates;Bathroom Priv ilege [facility] Work Phone: 04-11-2023 Functional status Activity Abili ty With Assist of 1 [facility] Work Phone: 12-08-2022 Functional status Patient Activi ty Ambulates;Up ad dinesh [facility] Work Phone: 12-08-2022 Functional status Standby Assist [facility] Work Phone: Mental Status Date Assessment Result Facility 08-16-2024 Cognitive function Voice/Name [facility] Work Phone: 05-19-2023 Cognitive function Voice/Name [facility] Work Phone: 05-18-2023 Cognitive function Level Of Cons ciousness Awake;Alert;Appropriate;Follow s Commands [facility] Work Phone: 04-13-2023 Cognitive function Voice/Name [facility] Work Phone: 04-10-2023 Cognitive function Voice/Name [facility] Work Phone: 02-16-2023 Cognitive function Level Of Cons ciousness Awake;Drowsy [facility] Work Phone: 02-16-2023 Cognitive function Voice/Name [facility] Work Phone: 12-08-2022 Cognitive function Level Of Cons ciousness Awake;Alert;Appropriate;Follow s Commands [facility] Work Phone: 12-07-2022 Cognitive function Appropriate;Cooperativ e [facility] Work Phone: 11-30-2022 Cognitive function Voice/Name [facility] Work Phone: Clinical Notes 09-16-2010 to 08-30-2024 Note Date & Type Note Facility 08-30-2024 Evaluation note Diagnosis Onset Date Resolution Stenosis of right carotid artery chronic August 30, 2024 1 :09pm Cervical myelopathy acute September 29, 2024 3:17pm DDD (degenerative disc disease), cervical acute September 29 3:17pm DISH (diffuse idiopathic skeletal hyperostosis) acute September 29, 2024 3:17pm Spinal stenosis in cervical region acute September 29, 2024 3:17pm [facility] Work Phone: 1(821) 222-352105-14-2025 Consult note [facility] Medical Records Department [address] [place] [address] Anesthesia Postop Eval II 08/15/24 1408 MR#: [id number] Acct: [id number] Name: SINDY GREENFIELD Rep #:[id number] : 1950 74 From: Ian Hernández PCP: JOCELINE Morejon Status:REG SDC Y Race: C Location: ICU CVICU 201-1 Anesthesia Postop Eval I Sum Postop Eval Completion status Anesthesia document: Postop Eval 1 completed: Yes Anesthesia Postop Eval I Summary Anesthesia Postop Eval I Summary: Anesthesia Postop Eval I: Assessment Summary Airway patent Yes 08/15/24 13:25 KITCHEN BATH DESIGNER.GDOTT Spontaneous unlabored Yes 08/15/24 13:25 KITCHEN BATH DESIGNER.GDOTT respirations Mental status Awake,Calm 08/15/24 13:25 KITCHEN B[employer] DESIGNER.GDOTT nausea No 08/15/24 13:25 KITCHEN BATH DESIGNER.GDOTT Vomiting No 08/15/24 13:25 KITCHEN BATH DESIGNER.GDOTT Anesthesia Postop Eval I: Fluid Summary Crystalloid volume administer 1,500 08/15/24 13:25 KITCHEN BATH DESIGNER.GDOTT (ml) Colloids volume administered ( ml) Blood Product volume administered (ml) Total IV fluid infused 1,500 08/15/24 13:25 KITCHEN BATH DESIGNER.GDOTT Anesthesia Postop Eval I: Summary Notes Anesthesia Complication No 08/15/24 13:25 KITCHEN BATH DESIGNER.GDOTT Anesthesia Complication Comment: Post-operative progress note Anesthesia: Postop Eval II Evaluation Mental status: Awake and Calm Pain Level: 1 nausea: No Vomiting: No Progress Note Post-operative progress note: Patient given 10 mg Hydralazine prior to going to the ICU. Doing well Complications Anesthesia Complication: No 08/15/24 1408 MD> Date _ Ian Damon MD [facility] Signature: Date CC: ~ Signed [facility]05-14-2025 [facility] Medical Records Department [address] [place] [address] Discharge Summary 08/16/24 1045 MR#: [id number] Acct: [id number] Name: SINDY GREENFIELD Rep #: [id number] : 1950 74 From: Pauly ENGEL PCP: JOCELINE Morejon Status:DIS IN Location: ICU [id number] Providers Date of Admission: 08/15/24 Primary Care Physician: JOCELINE Morejon Reason For Visit: RIGHT CAROTIDSTENT IN CATH LBAB WITH RFNA, OR STAF Diagnosis Discharge Diagnosis (1) Stenosis of right carotid artery: Status: Chronic Code(s): I65.21 - Occlusion and stenosis of right carotid artery Medications at Discharge Home Medications lmjwcwnc-wca-itgpx acid 0.4 mg-lycopene 300 mcg-lutein 250 mcg tablet (Centrum Silver) 1 ea PO DAILY SUPPLEMENT' 01/08/13 potassium citrate 10 mEq (1,080 mg) tablet,extended release (Urocit-K 10) 1,080 mg PO DAILY SUPPLEMENT 05/24/15 fenofibrate nanocrystallized 145 mg tablet 145 mg PO DAILY CHOLESTEROL 10/19/17 ezetimibe 10 mg tablet 10 mg PO DAILY cholesterol 12/06/22 vit C 250 mg-vit E 90 mg-zinc 40 mg-copper 1 rw-vbnjpv-rzgkgl capsule (PreserVision AREDS-2) 1 tab PO BID eye health 12/06/22 losartan 100 mg tablet 100 mg PO DAILY blood pressure 04/10/23 aspirin 81 mg tablet,delayed release [facility] tabs 04/13/23 clopidogrel [...] 77.6 H, Lymph % (Auto) 11.3 L, [place] % (Auto) 10.0, Eos % (Auto) 0.5, Baso % (Auto) 0.4, Absolute Neuts (auto) 6.3, Absolute Lymphs (auto) 0.91, Nucleated RBC % 0 D/C Instructions Discharge Diet: No restrictions May shower in (days): 1 Weight Bearing Status: Weight bearing as tolerated Lifting Restricted to (Lbs): 20 Lifting Restric (more content not included)...[facility] 08-15-2024 Consult note Author Ian Damon [facility] Note Date/Time August 16, 2024 12:08 pm [facility] Medical Records Department [address] [place] [address] Anesthesia Postop Eval II 08/15/24 1408 MR#: [id number] Acct: [id number] Name: SINDY GREENFIELD Rep #:[id number] : 1950 74 From: Ian Hernández PCP: Mita Zaidi NP-C Status:REG SDC Y Race: C Location: ICU CVICU 201-1 Anesthesia Postop Eval I Sum Postop Eval Completion status Anesthesia document: Postop Eval 1 completed: Yes Anesthesia Postop Eval I Summary Anesthesia Postop Eval I Summary: Anesthesia Postop Eval I: Assessment Summary Airway patent Yes 08/15/24 13:25 KITCHEN BATH DESIGNER.GDOTT Spontaneous unlabored Yes 08/15/24 13:25 KITCHEN BATH DESIGNER.GDOTT respirations Mental status Awake,Calm 08/15/24 13:25 KITCHEN BATH DESIGNER.GDOTT nausea No 08/15/24 13:25 KITCHEN BATH DESIGNER.GDOTT Vomiting No 08/15/24 13:25 KITCHEN BATH DESIGNER.GDOTT Anesthesia Postop Eval I: Fluid Summary Crystalloid volume administer 1,500 08/15/24 13:25 KITCHEN BATH DESIGNER.GDOTT (ml) Colloids volume administered ( ml) Blood Product volume administered (ml) Total IV fluid infused 1,500 08/15/24 13:25 KITCHEN BATH DESIGNER.GDOTT Anesthesia Postop Eval I: Summary Notes Anesthesia Complication No 08/15/24 13:25 KITCHEN BATH DESIGNER.GDOTT Anesthesia Complication Comment: Post-operative progress note Anesthesia: Postop Eval II Evaluation Mental status: Awake and Calm Pain Level: 1 nausea: No Vomiting: No Progress Note Post-operative progress note: Patient given 10 mg Hydralazine prior to going to the ICU. Doing well Complications Anesthesia Complication: No 08/15/24 1408 <Electronically signed by Ian Damon MD> Date _ Ian Damon MD [facility] Signature: Date CC: ~ Signed [facility] Work Phone: 1(948) 153-311105-13-2025 Consult note Author Leslie Magana [facility] Note Date/Time August 15, 2024 1:25p [facility] Medical Records Department [address] [place] [address] Anesthesia Postop Eval I 08/15/24 1324 MR#: [id number] Acct: [id number] Name: SINDY GREENFIELD Rep #:[id number] : 1950 74 From: Leslie Magana PCP: Mita Zaidi NP-C Status:REG SDC Y Race: C Location: ICU [...] by Leslie Magana > Date _ Leslie Delgado Signature: Date CC: ~ Signed [facility] Work Phone: 1(854) 485-385705-13-2025 Procedure note [facility] Medical Records Department [address] [place] [address] Operative Report 08/15/24 1317 MR#: [id number] Acct: [id number] Name: SINDY GREENFIELD Rep #:[id number] : 1950 74 From: Senthil Noel MD PCP: Mita Zaidi VISOR INSTALLER-C Status:ADM IN [facility]- Operative Report (Standard) Operative Information Date of Procedure: 08/15/24 Pre-Operative Diagnosis: right carotid stenosis Post-Operative Diagnosis: same Surgery/Procedure Performed: right carotid stent, trans carotid body joiner: Yes Senior Analyst Programmer: Jodi Candelario Tasks completed by occupational therapist assistant: Opening, Closing, Opening & closing, Hemostasis: Electrocautery [...] site the patient was taken to the Pulp Refiner Operator where he was placed under general anesthesia. [...] the micropuncture sheath exchanged for the 8 Burmese venous return sheath. Next the carotid artery [...] the incision inspected for hemostasis. A 19 Burmese channel JEET was then placed via separate [...] JOCELINE Zaidi; Dr. Senthil Noel MD~ Signed [facility]05-13-2025 Consult note [facility] Medical Records Department [address] [place] [address] Anesthesia Postop Eval I 08/15/24 1324 MR#: [id number] Acct: [id number] Name: SINDY GREENFIELD Rep #:[id number] : 1950 74 From: Leslie Magana PCP: BENNETT MorejonC Status:REG SD Y Race: C Location: ICU CVICU 201-1 [...] Yes 08/15/24 1325 > Date _ Leslie Weaverigner Signature: Date CC: ~ Signed [facility]05-13-2025 History and physical note Author Senthil Noel [facility] Note Date/Time August 15, 2024 11:10 am [facility] Medical Records Department [address] [facility] [place] [address] History & Physical Exam 08/15/24 1106 MR#: [id number] Acct: [id number] Name: SINDY GREENFIELD Rep #:[id number] : 1950 74 From: Senthil Noel MD PCP: JOCELINE Morejon Status:REG [facility] Location: [place] [address] HPI - General HPI Narrative SINDY GREENFIELD, [...] future. He denies numbness/weakness/vision loss/speech difficulty. [facility] Medical History Anxiety Generalized psoriasis Cervical arthritis [...] Medications ?Medication ?Instructions ?Recorded ?Last Taken ?Type ztcomygf-eig-icczj acid 0.4 1 ea PO DAILY SUPPLEMENT' [...] heal th 12/06/22 08/14/24 History mg-copper 1 sp-qineuz-vtnftc capsule (PreserVision AREDS-2) losartan 100 mg tablet [...] Type Severity Reaction Status Date / Time Yryntpm-QOA-AlH Reductase AdvReac leg cramps Verified 08/15/24 09:41 Inhibitor (Uibczhw-Pkc-Mhk Reductase Inhibitor) Surgical History Hx of oral [...] Noel MD> Cosigner Signature (if applicable): CC: JOCELINE Zaidi; Dr. Senthil Noel MD~ Signed [facility] Work Phone: 1(244) 805-415505-13-2025 Consult note Author Ian Damon [facility] Note Date/Time August 15, 2024 10:31 am [facility] Medical Records Department [address] [place] [address] Pre-Anesthesia Evaluation 08/15/24 1025 MR#: [id number] Acct: [id number] Name: SINDY GREENFIELD Rep #:[id number] : 1950 74 From: Ian Hernández PCP: BENNETT MorejonC Status:REG SDC Y Race: C Location: [place] [address] ASA Classification* ASA Classification ASA Classification: 3 [...] Planned Operative Procedure(s): RIGHT CAROTID STENT IN SOCIAL WELFARE RESEARCH WORKER WITH ANESTHESIA Anesthesia History 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 Hx Hospitalization No 08/01/24 09:26 Any Problems [...] take am of surgery PONV PONV - 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: PONV - 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 Female No 08/01/24 09:26 HX of Motion [...] 08/15/24 09:48 Respiratory Assessment Respiratory Assessment - 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: Respiratory Tract Infection Hx - 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 Hx Respiratory Tract Infection No 08/01/24 09:26 STOP Sleep Apnea STOP Sleep Apnea - 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: STOP Sleep Apnea - 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 Hx Hypertension Yes: CONTROLLED WITH MED 08/01/24 [...] Tobacco Use History 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: 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 Tobacco Use Smoking Status Never smoker 08/01/24 09:26 Hx Tobacco Use No 08/01/24 09:26 Years Smoking Packs Smoked per Day Smoking Cessation Date was within the last 15 years Hx Smoking Cessation Date Hx Smoking Cessation Counseling Hematologic Medial History Hematologic Hx - 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: Hematologic 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 Hx of Blood Transfusion No 08/01/24 09:26 Hx of Transfusion in last 3 No 08/01/24 09:26 Months Date of Last Transfusion (if within last 3 months) Ever experience any problems No 08/01/24 09:26 with transfusion(s)? Specify any problems Hx of Preganancy in last 3 N/A 08/01/24 09:26 Months Nurse Filling Out Transfusion DSCHRIBER 08/01/24 09:26 & Questions: Date: 08/01/24 08/01/24 09:26 Time: 09:08/01/24 09:26 Patient unable to answer at this time (ie. confused, unrespo /Reproduction History /Reproductive History - 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: /Reproductive Hx- 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 Hx Now No 08/01/24 09:26 Gestational Age [...] Medications ?Medication ?Instructions ?Recorded ?Last Taken ?Type gcmmvakq-lcb-wmott acid 0.4 1 ea PO DAILY SUPPLEMENT' [...] heal th 12/06/22 08/14/24 History mg-copper 1 tj-zjvjgt-chlztv capsule (PreserVision AREDS-2) losartan 100 mg tablet [...] Type Severity Reaction Status Date / Time Pewtlyq-YSP-SqO Reductase AdvReac leg cramps Verified 08/15/24 09:41 Inhibitor (Hdbbvdx-Oqt-Pru Reductase Inhibitor) Surgical History Hx of oral [...] by Ian Damon MD> Date _ Ian Hutton Signature: Date CC: ~ Signed [facility] Work Phone: 1(256) 207-739505-13-2025 History and physical note [facility] Medical Records Department [address] [place] [address] History & Physical Exam 08/15/24 1106 MR#: [id number] Acct: [id number] Name: SINDY GREENFIELD Rep #:[id number] : 1950 74 From: Senthil Noel MD PCP: JOCELINE Morejon Status:REG [facility] Location: [place] [address] HPI - General HPI Narrative SINDY GREENFIELD, [...] future. He denies numbness/weakness/vision loss/speech difficulty. [facility] Medical History Anxiety Generalized psoriasis Cervical arthritis [...] Medications ?Medication ?Instructions ?Recorded ?Last Taken ?Type tjqrijze-gnu-bnttb acid 0.4 1 ea PO DAILY SUPPLEMENT' [...] heal th 12/06/22 08/14/24 History mg-copper 1 vh-cgjqnt-dnajog capsule (PreserVision AREDS-2) losartan 100 mg tablet [...] Type Severity Reaction Status Date / Time Ssotztq-GJB-LlC Reductase AdvReac leg cramps Verified 08/15/24 09:41 Inhibitor (Hnnxvgc-Gxq-Sxm Reductase Inhibitor) Surgical History Hx of oral [...] 08/15/24 1110 Cosigner Signature (if applicable): CC: VISOR INSTALLER-C Mita Zaidi; Dr. Senthil Noel MD~ Signed [facility]05-13-2025 [facility] Medical Records Department [address] [place] [address] History Physical Exam 08/15/24 1106 MR#: [id number] Acct: [id number] Name: SINDY GREENFIELD Rep #: [id number] : 1950 74 From: Senthil Noel MD PCP: JOCELINE Morejon Status:REG [facility] Location: [place] [address] HPI - General HPI Narrative SINDY GREENFIELD, [...] future. He denies numbness/weakness/vision loss/speech difficulty. [facility] Medical History Anxiety Generalized psoriasis Cervical arthritis [...] Medications ???Medication ???Instructions ???Recorded ???Last Taken ???Type jbwfofeu-lgs-sourx acid 0.4 1 ea PO DAILY SUPPLEMENT' [...] health 12/06/22 0 08/14/24 History mg-copper 1 va-hpmjpv-nnekcr capsule (PreserVision AREDS-2) losartan 100 mg tablet [...] Type Severity Reaction Status Date / Time Lztjqog-XPS-MkP Reductase AdvReac leg cramps Verified 08/15/24 09:41 Inhibitor (Vmpawlm-Wme-Kmx Reductase Inhibitor) Surgical History Hx of oral [...] dysuria or hematuria Musculoskele (more content not included)...[facility]05-13-2025 Consult note [facility] Medical Records Department [address] [place] [address] Pre-Anesthesia Evaluation 08/15/24 1025 MR#: [id number] Acct: [id number] Name: SINDY GREENFIELD Rep #:[id number] : 1950 74 From: Ian Hernández PCP: BENNETT MorejonC Status:REG SD Y Race: C Location: [place] [address] ASA Classification* ASA Classification ASA Classification: 3 [...] Planned Operative Procedure(s): RIGHT CAROTID STENT IN SOCIAL WELFARE RESEARCH WORKER WITH ANESTHESIA Anesthesia History 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 Hx Hospitalization No 08/01/24 09:26 Any Problems [...] take am of surgery PONV PONV - 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: PONV - 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 Female No 08/01/24 09:26 HX of Motion [...] 08/15/24 09:48 Respiratory Assessment Respiratory Assessment - 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: Respiratory Tract Infection Hx - 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 Hx Respiratory Tract Infection No 08/01/24 09:26 STOP Sleep Apnea STOP Sleep Apnea - 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: STOP Sleep Apnea - 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 Hx Hypertension Yes: CONTROLLED WITH MED 08/01/24 [...] Tobacco Use History 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: 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 Tobacco Use Smoking Status Never smoker 08/01/24 09:26 Hx Tobacco Use No 08/01/24 09:26 Years Smoking Packs Smoked per Day Smoking Cessation Date was within the last 15 years Hx Smoking Cessation Date Hx Smoking Cessation Counseling Hematologic Medial History Hematologic Hx - 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: Hematologic 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 Hx of Blood Transfusion No 08/01/24 09:26 [...] confused, unrespo /Reproduction History /Reproductive History - 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: /Reproductive Hx- 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 Hx Now No 08/01/24 09:26 Gestational Age [...] Medications ?Medication ?Instructions ?Recorded ?Last Taken ?Type ybhfkawj-mwm-cbdyg acid 0.4 1 ea PO DAILY SUPPLEMENT' [...] heal th 12/06/22 08/14/24 History mg-copper 1 hb-gaiwlr-epzuoy capsule (PreserVision AREDS-2) losartan 100 mg tablet [...] Type Severity Reaction Status Date / Time Fkgzmqr-BAG-OwU Reductase AdvReac leg cramps Verified 08/15/24 09:41 Inhibitor (Tytzptw-Jxd-Oqw Reductase Inhibitor) Surgical History Hx of oral [...] extremities 08/15/24 1031 MD> Date _ Ian Delgado Signature: Date CC: ~ Signed [facility]04-03-2025 Radiology Diagnostic study note [facility] Imaging Services [address] [place] [address] CTA Head AND Neck W/ Contrast MR#: [id number] Acct: [id number] Name: SINDY GREENFIELD Rep #: [id number] : 1950 M 74 From: James Steen MD PCP: Mita Zaidi VISOR INSTALLER-C Status: REG CLI Study:CTA Head AND Neck W/ Contrast Date of E xam: 07/06/24 Exam# [id number] Ordering Dr: Santiago Mathews PROCEDURE: CTA HEAD [...] BASE: Unremarkable INTRACRANIAL VASCULATURE Cerebral Arteries: Unremarkable [place]: Unremarkable Venous Drainage: Unremarkable VERTEBROBASILAR SYSTEM: Unremarkable CT/CTA Head AND Neck W/ Contrast IMPRESSION: High-grade stenosis at the origin of the right internal carotid artery. 50-60% narrowing at the origin of the left internal carotid artery. Reading Location: [place] [address] CC: JOCELINE Zaidi; TORO Grimm ~ Human Resources Services Specialist: Signed [facility]03-21-2025 Evaluation note* Diagnosis Onset Date Resolution Status Admit Date Carotid artery disease acute [facility] 2024 9:11am Stenosis of right carotid artery chronic July 13, 2024 2:50pm Stenosis of right carotid artery chronic August 15, 2024 1 :03pm Stenosis of right carotid artery chronic August 30, 2024 1 :09pm Cervical myelopathy acute September 29, 2024 3:17pm DDD (degenerative disc disease), cervical acute September 29 3:17pm DISH (diffuse idiopathic skeletal hyperostosis) acute September 3:17pm Spinal stenosis in cervical region acute September 29, 2024 3:17pm [facility] Work Phone: 1(394) 327-289003-05-2025 Evaluation note* Diagnosis Onset Date Resolution Status Admit Date Lightheaded acute June 07 9:00am Preop cardiovascular exam acute June 07, 2024 9:00am Atherosclerotic cardiovascul ar disease chronic June 07, 2024 9:00am Dyslipidemia chronic June 07, 2 025 9:00am Hypertension chronic June 07, 2 025 9:00am SVT (supraventricular tachycardia) chronic June 07, 2024 9:00am Carotid artery disease acute [facility] 2024 9:11am Stenosis of right carotid artery [facility] onic July 13, 2024 2:50pm Stenosis of right carotid artery chr on August 15, 2024 1:03pm Stenosis of right carotid artery [facility] on August 30, 2024 1:09pm [facility] Work Phone: 1(770) 833-852303-05-2025 Evaluation note* Diagnosis Onset Date Resolution Status Admit Date Lightheaded acute June 07 9:00am Preop cardiovascular exam acute June 07, 2024 9:00am Atherosclerotic cardiovascul ar disease chronic June 07, 2024 9:00am Dyslipidemia chronic June 07, 2 025 9:00am Hypertension June 07, 2 025 9:00am SVT (supraventricular tachycardia) chronic June 07, 2024 9:00am Carotid artery disease acute [facility] 2024 9:11am Stenosis of right carotid artery chr onic July 13, 2024 2:50pm Stenosis of right carotid artery chr onic August 15, 2024 1:03pm Stenosis of right carotid artery chr onic August 30, 2024 1:09pm Cervical myelopathy acute September 29, 2024 3:17pm DDD (degenerative disc disea se), cervical acute September 29, 2024 3:17pm DISH (diffuse idiopathic ske letal hyperostosis) acute September 29, 2024 3:17pm Spinal stenosis in cervical region acute September 29, 2024 3:17pm [facility] Work Phone: [phone] 807-710501-16-2025 Evaluation note* Diagnosis Onset Date Resolution Status Admit Date Cervical myelopathy acute 2024 9:38am Dysphagia acute April 20, 2024 9:38am Lightheaded acute June 07 9:00am Preop cardiovascular exam acute June 07, 2024 9:00am Atherosclerotic cardiovascul ar disease June 07, 2024 9:00am Dyslipidemia June 07, 2 025 9:00am Hypertension June 07, 2 025 9:00am SVT (supraventricular tachycardia) June 07, 2024 9:00am [facility] Work Phone: 1(518) 291-916701-16-2025 Evaluation note* Diagnosis Onset Date Resolution Status Admit Date Cervical myelopathy acute 2024 9:38am Dysphagia acute April 20, 2024 9:38am Lightheaded acute June 07 9:00am Preop cardiovascular exam acute June 07, 2024 9:00am Atherosclerotic cardiovascul ar disease chronic June 07, 2024 9:00am Dyslipidemia chronic June 07, 2 025 9:00am Hypertension chronic June 07, 2 025 9:00am SVT (supraventricular tachycardia) chronic June 07, 2024 9:00am Carotid artery disease acute [facility] 2024 9:11am [facility] Work Phone: [phone] 400-777101-16-2025 Evaluation note* Diagnosis Onset Date Resolution Status Admit Date Cervical myelopathy acute Jan2024 9:38am Dysphagia acute April 20, 2024 9:38am Lightheaded acute June 07 9:00am Preop cardiovascular exam acute June 07, 2024 9:00am Atherosclerotic cardiovascul ar disease chronic June 07, 2024 9:00am Dyslipidemia chronic June 07, 025 9:00am Hypertension chronic June 07, 025 9:00am SVT (supraventricular tachycardia) chronic June 07, 2024 9:00am Carotid artery disease acute [facility] 2024 9:11am Stenosis of right carotid artery chr onic July 13, 2024 2:50pm Stenosis of right carotid artery chr onic August 15, 2024 1:03pm [facility] Work Phone: 1(841) 646-704407-10-2024 History of Present illness Narrative* Vivienne Vu LPN - 10/13/2023 9:09 AM EDT Spoke with pt and he has changed providers to Mita Zaidi NP with [facility] Vivienne Vu LPN [facility] Progress note Author Markell Humphrey [facility] May 19, 2023 7:54am Note Date/Time May 19, 2023 7:54am [facility] Medical Records Department [address] [place] [address] Progress Note - Cardiology 05/19/23 0747 MR#: [id number] Acct: [id number] Name: SINDY GREENFIELD Rep #:[id number] : 1950 73 From: Markell Humphrey MD PCP: JOCELINE Morejon Status:ADM ALEK Location: [place] [address] Subjective Subjective The patient tolerated the addition [...] % (Auto) 59.8, Lymph % (Auto) 23.9, [place] % (Auto) 8.8, Eos % (Auto) 5.7 [...] % (Auto) 59.8, Lymph % (Auto) 23.9, [place] % (Auto) 8.8, Eos % (Auto) 5.7 [...] or me. Charges/Coding Visit Charges Inpatient E&M: 21010 [facility] Hosp 05/19/23 0754 <Electronically signed by Markell Humphrey MD> Cosigner Signature (if applicable): CC: ~ Signed [facility] Work Phone: 1(661) 174-545302-13-2024 Discharge summary Author Senthil Hsieh [facility] May 18, 2023 5:16pm Note Date/Time May 18, 2023 10:16am [facility] Medical Records Department [address] [place] [address] Emergency Department Summary 05/18/23 MR#: [id number] Acct: [id number] Name: SINDY GREENFIELD Rep #:[id number] : 1950 73 From: Senthil Lock PCP: JOCELINE Morejon Status:ADM ALEK Location: [address] History of Present Illness Chief Complaint: [...] placed in April of this year. [facility] Medical History BPH (benign prostatic hyperplasia) Cancer Cholecystitis Diabetes mellitus Dietary restriction Difficulty swallowing High cholesterol History of renal disease Hypertension Hypothyroid Leg cramping Loss of hearing Neuropathy Non-smoker Sleep apnea treated with continuous positive airway pressure (CPAP) Wears glasses Home Medications xnnvjbgr-brz-gevnc acid 0.4 mg-lycopene 300 mcg-lutein 250 mcg [...] mg-vit E 90 mg-zinc 40 mg-copper 1 ko-eortrp-ttawdn capsule (PreserVision AREDS-2) 1 tab PO BID [...] Type Severity Reaction Status Date / Time Ceimkkq-Zzk-Ecc Reductase AdvReac leg cramps Verified 05/18/23 09:57 [...] These are consistent with prior results. Glucose yyq321. High-sensitivity troponin was reviewed and was normal [...] % (Auto) 59.8 Lymph % (Auto) 23.9 [place] % (Auto) 8.8 Eos % (Auto) 5.7 [...] AV block with a rate of 86. W[place] interval was 260 ms. QRS interval was normal at 100 ms. QTc interval was normal at 418 ms. There is left axis deviation at -29. There are some nonspecific ST-T wave changes in the inferior and lateral leads. Prior EKG tracings: available for review Prior: Unchanged (04/12/2023) Management Discussion w/another healthcare provider: Hospitalist (Dr. Mcclelland) and Woods Laborer (Dr. Humphrey) Treatment and Re-Evaluation :: Patient [...] (34), Including time spent:, Discussing w/Patient &/or Family/Solar Consultant, Discussing w/Consultants, Arranging Admission or Transfer and Performing Direct Patient Care at Bedside Discharge Plan Dx/Rx/DC Orders Clinical Impression: Supraventricular tachycardia, Coronary artery disease Disposition Disposition: Acute Care Hospital [facility] Discharge Date/Time: 05/18/23 12:55 What to do if you have Problems For any increased pain, shortness of breath, bleeding, nausea or vomiting, chestpain, or any unexpected problems, contact your Primary Care Provider. Call [facility] ([phone]) or report to the closest Emergency Room. Call 911 if necessary. 05/18/23 1716 <Electronically signed by Senthil Hsieh DO> Cosigner Signature (if applicable): CC: VISOR INSTALLER-C Mita Zaidi ~ Signed [facility] Work Phone: 1(206) 892-721002-13-2024 History and physical note Author Gil Burnhamredwood llcamado [facility] May 18, 2023 4:58pm Note Date/Time May 18, 2023 4:47pm [facility] Medical Records Department [address] [place] [address] H&P Exam - Hospitalist 05/18/23 1645 MR#: [id number] Acct: [id number] Name: SINDY GREENFIELD Rep #:[id number] : 1950 73 From: Gil Mcclelland DO PCP: JOCELINE Morejon Status:ADM ALEK Location: [place] [address] HPI - General General Date of Admission: 05/18/23 Date of Service: 05/18/23 Chief Complaint: Supraventricular tachycardia HPI Narrative SINDY GREENFIELD, is a 73 M who presents to the emergency room at [facility] with complaints of increased heart rate along [...] and observe the patient's heart rhythm. [facility] [facility] Medical History BPH (benign prostatic hyperplasia) Cancer Cholecystitis Diabetes mellitus Dietary restriction Difficulty swallowing High cholesterol History of renal disease Hypertension Hypothyroid Leg cramping Loss of hearing Neuropathy Non-smoker Sleep apnea treated with continuous positive airway pressure (CPAP) Wears glasses Home Medications esbhpzqa-jox-wfkvx acid 0.4 mg-lycopene 300 mcg-lutein 250 mcg [...] mg-vit E 90 mg-zinc 40 mg-copper 1 te-jvmrdx-zlxyup capsule (PreserVision AREDS-2) 1 tab PO BID [...] Type Severity Reaction Status Date / Time Rdctatz-NOD-AbO Reductase AdvReac leg cramps Verified 05/18/23 09:57 Inhibitor [Qrowaum-Nrp-Tba Reductase Inhibitor] Surgical History H/O prostatectomy History [...] % (Auto) 59.8, Lymph % (Auto) 23.9, [place] % (Auto) 8.8, Eos % (Auto) 5.7 [...] Zetia, I told him that taking an lzhm-bna-wsecodg fish oil supplement would not be beneficial [...] 55 minutes Charges/Coding Visit Charges Inpatient E&M: 11588 Init Hosp L2 05/18/23 8936 <Electronically signed by Gil Mcclelland DO> Cosigner Signature (if applicable): CC: JOCELINE Zaidi; Dr. Gil Mcclelland DO~ Signed [facility] Work Phone: 1(809) 395-577102-13-2024 Consult note Author Markell Humphrey [facility] May 18, 2023 1:14pm Note Date/Time May 18, 2023 12:59pm [facility] Medical Records Department [address] [place] [address] Consultation - Cardiology 05/18/23 1258 MR#: [id number] Acct: [id number] Name: SINDY GREENFIELD Rep #:[id number] : 1950 73 From: Markell Humphrey MD PCP: JOCELINE Morejon Status:ADM [facility] Location: [place] [address] Assessment & Plan Assessment/Plan (1) Supraventricular tachycardia: [...] episode a few days prior at his grandsons concert with there were bright flashing lights. He did not have any seizure type activity and did not pass outeither time. He did have near syncope both episodes. The patient was recently hospitalized at [facility] where he hadan acute inferior wall infarct [...] is also seen in my office. [facility] Medical History BPH (benign prostatic hyperplasia) Cancer Cholecystitis Diabetes mellitus Dietary restriction Difficulty swallowing High cholesterol History of renal disease Hypertension Hypothyroid Leg cramping Loss of hearing Neuropathy Non-smoker Sleep apnea treated with continuous positive airway pressure (CPAP) Wears glasses Home Medications sawxneln-wwj-llvzz acid 0.4 mg-lycopene 300 mcg-lutein 250 mcg [...] mg-vit E 90 mg-zinc 40 mg-copper 1 rx-ykmiza-sbqbqu capsule (PreserVision AREDS-2) 1 tab PO BID [...] Type Severity Reaction Status Date / Time Jdlktyy-QHC-CaT Reductase AdvReac leg cramps Verified 05/18/23 09:57 Inhibitor [Xkwlnmc-Rgw-Cwh Reductase Inhibitor] Surgical History H/O prostatectomy History [...] 13% Risk Charges/Coding Visit Charges Inpatient E&M: 49814 Init Hosp L2 Objective Data Vital Signs: Vital Signs Temp Pulse Resp BP Pulse Ox O2 Del Method O2 Flow Rate 97.6 F L 89 16 130/76 H 99 Room Air 2 05/18/23 12:32 05/18/23 12:32 05/18/23 12:32 05/18/23 12:32 05/18/23 12:32 05/18/23 12:00 05/18/23 10:22 Oxygen Flow Rate (L/min) [...] % (Auto) 59.8, Lymph % (Auto) 23.9, [place] % (Auto) 8.8, Eos % (Auto) 5.7 [...] % (Auto) 59.8, Lymph % (Auto) 23.9, [place] % (Auto) 8.8, Eos % (Auto) 5.7 [...] JOCELINE Zaidi; Dr. Markell Humphrey MD~ Signed [facility] Work Phone: 1(287) 447-141101-09-2024 Progress note Author Romie Tuttle [facility] April 13, 2023 10:40am Note Date/Time April 13, 2023 7: 52am [facility] Medical Records Department [address] [place] [address] Progress Note - Hospitalist 04/13/23 0752 MR#: [id number] Acct: [id number] Name: SINDY GREENFIELD Rep #:[id number] : 1950 73 From: Romie Tuttle MD PCP: JOCELINE Morejon Status:ADM IN Location: ICU ICU- Reason for Visit Reason for Visit: Diagnoses Hypothyroidism, unspecified (04/10/23) Other specified diabetes mellitus without complications (04/10/23) Hyperlipidemia, unspecified (04/10/23) Essential (primary) hypertension (04/10/23) ST elevation (STEMI) myocardial infarction involving right coronary artery (04/10/23) Atherosclerotic heart disease of koi coronary artery without angina pectoris (04/10/23) Atherosclerotic heart disease of koi coronary artery with unstable angina pectoris (04/10/23) [...] and Output for Last 24 Hours 04/11/23 04/12/2324 23:59 23:59 23:59 Intake Total 600 / [...] with unstable angina Coronary Disease-Associated Artery/Lesion type: koi artery [place] vs. transplanted heart: koi heart Qualified Code(s): I25.110 - Atherosclerotic heart disease of koi coronary artery with unstable angina pectoris (3) Transient complete heart block: PLAN: Plan Patient is a 73-year-old gentleman who presented with chest pain diagnosed with acute ST segment elevation PA underwent emergency left heart catheterization found to have a complete occlusion of the proximal RCA underwent aspiration thrombectomy, balloon angioplasty RIRI placement. Subsequently transferred to theintensive care unit 1. Acute STEMI -Patient taken emergently to the [facility] and was found to have a complete [...] 35 Minutes Charges/Coding Visit Charges Inpatient E&M: 40987 Subs Hosp L2 04/13/23 1040 <Electronically signed by Romie Tuttle MD> Cosigner Signature (if applicable): CC: ~ Signed [facility] Work Phone: 1(290) 445-766901-08-2024 Progress note Author Romie Tuttle [facility] April 12, 2023 10:46am Note Date/Time April 12, 2023 7: 25am [facility] Medical Records Department [address] [place] [address] Progress Note - Hospitalist 04/12/23 0725 MR#: [id number] Acct: [id number] Name: EDILELISABETHSINDY JOSHUA Rep #:[id number] : 1950 73 From: Romie Tuttle MD PCP: JOCELINE Morejon Status:ADM IN Location: ICU ICU10-1 Reason for Visit Reason for Visit: Diagnoses Hypothyroidism, unspecified (04/10/23) Other specified diabetes mellitus without complications (04/10/23) Hyperlipidemia, unspecified (04/10/23) Essential (primary) hypertension (04/10/23) ST elevation (STEMI) myocardial infarction involving right coronary artery (04/10/23) Atherosclerotic heart disease of koi coronary artery without angina pectoris (04/10/23) Atherosclerotic heart disease of koi coronary artery with unstable angina pectoris (04/10/23) [...] (Auto) 66.9, Lymph % (Auto) 18.5 L, [place] % (Auto) 9.0, Eos % (Auto) 4.3, [...] with unstable angina Coronary Disease-Associated Artery/Lesion type: koi artery [place] vs. transplanted heart: koi heart Qualified Code(s): I25.110 - Atherosclerotic heart disease of koi coronary artery with unstable angina pectoris (3) Transient complete heart block: PLAN: Plan Patient is a 73-year-old gentleman who presented with chest pain diagnosed with acute ST segment elevation PA underwent emergency left heart catheterization found to have a complete occlusion of the proximal RCA underwent aspiration thrombectomy, balloon angioplasty RIRI placement. Subsequently transferred to the intensive care unit 1. Acute STEMI -Patient taken emergently to the [facility] and was found to have a complete [...] 50 Minutes Charges/Coding Visit Charges Inpatient E&M: 10464 Subs Hosp 04/12/23 1046 <Electronically signed by Romie Tuttle MD> Cosigner Signature (if applicable): CC: ~ Signed [facility] Work Phone: 1(907) 899-623901-08-2024 Progress note Author Bo Albert [facility] April 12, 2023 10:42am Note Date/Time April 12, 2023 10 :42am [facility] Medical Records Department [address] [place] [address] Progress Note - Cardiology 04/12/23 1039 MR#: [id number] Acct: [id number] Name: SINDY GREENFIELD Rep #:[id number] : [...] (Auto) 66.9, Lymph % (Auto) 18.5 L, [place] % (Auto) 9.0, Eos % (Auto) 4.3, [...] (Auto) 66.9, Lymph % (Auto) 18.5 L, [place] % (Auto) 9.0, Eos % (Auto) 4.3, [...] disease: QUALIFIERS: Coronary Disease-Associated Artery/Lesion type: nativeartery [place] vs. transplanted heart: koi heart Associated angina: with unstable angina Qualified Code(s): I25.110 - Atherosclerotic heart disease of koi coronary artery with unstable angina pectoris PLAN: See #1 above. Aspirin, Plavix. Risk factor modification. (3) Transient complete heart block: PLAN: Complete heart block resolved with revascularization of the right coronaryartery. Residual first-degree AV block. WV interval improved. Continue to monitor. No beta-blockers [...] Cosigner Signature (if applicable): CC: ~ Signed [facility] Work Phone: 1(818) 712-657301-07-2024 Progress note Author Romie Tuttle [facility] April 11, 2023 9:24am Note Date/Time April 11, 2023 7: 08am [facility] Medical Records Department [address] [place] [address] Progress Note - Hospitalist 04/11/23707 MR#: [id number] Acct: [id number] Name: SINDY GREENFIELD Rep #:[id number] : 1950 73 From: Romie Tuttle MD PCP: JOCELINE Morejon Status:ADM IN Location: ICU ICU10-1 Reason for Visit Reason for Visit: Diagnoses Hypothyroidism, unspecified (04/10/23) Other specified diabetes mellitus without complications (04/10/23) Hyperlipidemia, unspecified (04/10/23) Essential (primary) hypertension (04/10/23) ST elevation (STEMI) myocardial infarction involving right coronary artery (04/10/23) Atherosclerotic heart disease of koi coronary artery without angina pectoris (04/10/23) Atrioventricular block, complete (04/10/23) Subjective Subjective Patient is a 73-year-old gentleman who presented with chest pain diagnosed with acute ST segment elevation PA underwent emergency left heart catheterization found to [...] % (Auto) 64.1, Lymph % (Auto) 21.7, [place] % (Auto) 8.0, Eos % (Auto) 4.8, [...] disease: QUALIFIERS: Coronary Disease-Associated Artery/Lesion type: nativeartery [place] vs. transplanted heart: koi heart Associated angina: with unstable angina Qualified Code(s): I25.110 - Atherosclerotic heart disease of koi coronary artery with unstable angina pectoris (6) Transient complete heart block: PLAN: Plan Patient is a 73-year-old gentleman who presented with chest pain diagnosed with acute ST segment elevation PA underwent emergency left heart catheterization found to have a complete occlusion of the proximal RCA underwent aspiration thrombectomy, balloon angioplasty RIRI placement. Subsequently transferred to the intensive care unit 1. Acute STEMI -Patient taken emergently to the [facility] and was found to have a complete [...] 04/11/23 at 0924 Visit Charges Inpatient E&M: 85795 Subs Hosp L3 04/11/23923<Electronically signed by Romie Tuttle MD> Cosigner Signature (if applicable): cc: ~* Signed [facility] Work Phone: 1([phone]) 328-150701-07-2024 Progress note Author Bo Albert [facility] April 11, 2023 8:56am Note Date/Time April 11, 2023 8: 57am [facility] Medical Records Department [address] [place] [address] Progress Note - Cardiology 04/11/23 0853 MR#: [id number] Acct: [id number] Name: SINDY GREENFIELD Rep #:[id number] : [...] % (Auto) 64.1, Lymph % (Auto) 21.7, [place] % (Auto) 8.0, Eos % (Auto) 4.8, [...] % (Auto) 64.1, Lymph % (Auto) 21.7, [place] % (Auto) 8.0, Eos % (Auto) 4.8, [...] the right coronaryartery. Presently with markedly prolonged WV interval. First-degree AV block with occasional Wenckebach [...] Cosigner Signature (if applicable): CC: ~ Signed [facility] Work Phone: 1(223) 442-827701-06-2024 History and physical note Author Tereza Tolentino [facility] April 10, 2023 8:34pm Note Date/Time April 10, 2023 8: 30pm [facility] Medical Records Department [address] [place] [address] H&P Exam - Hospitalist 04/10/232027 MR#: [id number] Acct: [id number] Name: SINDY GREENFIELD Rep #:[id number] : 1950 73 From: Tereza Tolentino MD PCP: Mita Dejuan, VISOR INSTALLER-C Status:ADM IN Location: ICU ICU10-1 HPI - General General Date of Admission: 04/10/23 Date of Service: 04/10/23 Chief Complaint: Light headedness/stemi HPI Narrative SINDY GREENFIELD, is a 73-year-old male history of diabetes, MARY, hypothyroidism, BPH,high cholesterol presented to [facility] 04/10/2023 with chest tightness that started when he was out walking his dog and he became lightheaded. In ED initial EKG with rate of 44 and it was difficult to tell if there was heart block, rhythm strip did show that he was in and out of [facility]. Initially plan was for transfer however troponin was 12 and delta came back at 268, he had repeat EKG due to concern that he could have infarcted earlier causing the atypical rhythms and repeat EKG showed acute inferior PA andpatient was taken to [facility]. Hospitalist contacted for admission. Patient seen in [...] breath, has no physical complaints whatsoever. [facility] Medical History BPH (benign prostatic hyperplasia) Cancer [...] PO BID DIABETES 01/08/13[History Last Taken 02/15/23] jeqglfgk-foq-cejhe acid 0.4 mg-lycopene 300 mcg-lutein 250 mcg [...] mg-vit E 90 mg-zinc 40 mg-copper 1 ft-zlwzxv-ktbfnc capsule (PreserVision AREDS-2) 1 tab PO BID eye health 12/06/22 [History Last Taken 04/09/23] cholecalciferol (vitamin D3) 50 mcg (2,000 unit) capsule (D3-2000) 50 mcg PO DAILY 02/11/23 [History Last Taken 04/09/23] losartan 100 mg tablet 100 mg PO DAILY 04/10/23 [History Last Taken 04/10/23] Allergy/AdvReac Type Severity Reaction Status Date / Time Nrqiwcb-AZT-WuJ Reductase AdvReac leg cramps Verified 04/10/23 08:44 Inhibitor [Jwnedww-Eeo-Int Reductase Inhibitor] Surgical History H/O prostatectomy History [...] % (Auto) 64.1, Lymph % (Auto) 21.7, [place] % (Auto) 8.0, Eos % (Auto) 4.8, [...] in ED -Patient taken emergently to the [facility] and was found to have a complete [...] Tolentino MD Charges/Coding Visit Charges Inpatient E&M: 34933 Init Hosp L2 04/10/232033 <Electronically signed by Tereza Tolentino MD> Cosigner Signature (if applicable): CC: VISOR INSTALLER-C Mita Zaidi; Dr. Tereza Tolentino MD~ Signed [facility] Work Phone: 1(423) 597-681901-06-2024 Consult note Author Bo Albert [facility] April 10, 2023 3:56pm Note Date/Time April 10, 2023 3: 57pm [facility] Medical Records Department [address] [place] [address] Consultation - Cardiology 04/10/23 1546 MR#: [id number] Acct: [id number] Name: SINDY GREENFIELD Rep #:[id number] : [...] drug-eluting stent. Excellent results were noted with pentecostalism of AHSAN-3 flow and 0% residual stenosis. [...] the discomfort radiated to his neck. [facility] Medical History BPH (benign prostatic hyperplasia) Cancer [...] PO BID DIABETES 01/08/13[History Last Taken 02/15/23] ohzojivr-bkd-gjedc acid 0.4 mg-lycopene 300 mcg-lutein 250 mcg [...] mg-vit E 90 mg-zinc 40 mg-copper 1 cx-tiqpxg-bxwfmt capsule (PreserVision AREDS-2) 1 tab PO BID eye health 12/06/22 [History Last Taken 04/09/23] cholecalciferol (vitamin D3) 50 mcg (2,000 unit) capsule (D3-2000) 50 mcg PO DAILY 02/11/23 [History Last Taken 04/09/23] losartan 100 mg tablet 100 mg PO DAILY 04/10/23 [History Last Taken 04/10/23] Allergy/AdvReac Type Severity Reaction Status Date / Time Xbkonze-LZL-IxM Reductase AdvReac leg cramps Verified 04/10/23 08:44 Inhibitor [Jogexle-Naq-Aev Reductase Inhibitor] Surgical History H/O prostatectomy History [...] % (Auto) 64.1, Lymph % (Auto) 21.7, [place] % (Auto) 8.0, Eos % (Auto) 4.8, [...] % (Auto) 64.1, Lymph % (Auto) 21.7, [place] % (Auto) 8.0, Eos % (Auto) 4.8, [...] Garibay MD at 10:09 EST , 04/10/23 1556 <Electronically signed by Bo Albert MD> Cosigner Signature (if applicable): CC: JOCELINE Zaidi~ Signed [facility] Work Phone: 1(146) 941-587201-06-2024 Discharge summary Author Nicanor Martinez [facility] April 10, 2023 12:57pm Note Date/Time April 10, 2023 10 :18am [facility] Medical Records Department [address] [place] [address] Emergency Department Summary 04/10/23 MR#: [id number] Acct: [id number] Name: SINDY GREENFIELD Rep #:[id number] : [...] does not drink alcohol andis non-smoker. [facility] Medical History BPH (benign prostatic hyperplasia) Cancer [...] PO BID DIABETES 01/08/13[History Last Taken 02/15/23] lrzvprym-kvl-gfgtj acid 0.4 mg-lycopene 300 mcg-lutein 250 mcg [...] mg-vit E 90 mg-zinc 40 mg-copper 1 he-ffmqrq-rhhzso capsule (PreserVision AREDS-2) 1 tab PO BID eye health 12/06/22 [History Last Taken 04/09/23] cholecalciferol (vitamin D3) 50 mcg (2,000 unit) capsule (D3-2000) 50 mcg PO DAILY 02/11/23 [History Last Taken 04/09/23] losartan 100 mg tablet 100 mg PO DAILY 04/10/23 [History Last Taken 04/10/23] Allergy/AdvReac Type Severity Reaction Status Date / Time Gnrrzkv-QXX-IhT Reductase AdvReac leg cramps Verified 04/10/23 08:44 Inhibitor [Fiybssj-Wru-Aod Reductase Inhibitor] Surgical History H/O prostatectomy History [...] to be transferred. Initially attempted to call [facility] however therewas no ability to except as they have no open beds. They did give me a cardiology number to call which I did call and received no answer. We then attempted to call [facility] and never received a call back. [...] the delta troponin showed a acute inferior PA. Chest x-ray reviewed at that time shows [...] % (Auto) 64.1 Lymph % (Auto) 21.7 [place] % (Auto) 8.0 Eos % (Auto) 4.8 [...] Primary Care Provider: Mita Zaidi Referrals: Mita Zaidi, JOCELINE [Primary Care Provider] - What to do if you have Problems For any increased pain, shortness of breath, bleeding, nausea or vomiting, chestpain, or any unexpected problems, contact your Primary Care Provider. Call [facility] ([phone]) or report to the closest Emergency Room. Call 911 if necessary. 04/10/23 1257 <Electronically signed by Nicanor Martinez DO> Cosigner Signature (if applicable): CC: JOCELINE Zaidi ~ Signed [facility] Work Phone: 1(223) 852-289701-06-2024 Discharge summary Author Nicanor Martinez [facility] April 10, 2023 12:57pm Note Date/Time April 10, 2023 10 :18am [facility] Medical Records Department [address] [place] [address] Emergency Department Summary 04/10/23 MR#: [id number] Acct: [id number] Name: SINDY GREENFIELD Rep #:[id number] : 1950 73 From: Nicanor Martinez DO PCP: Mita Zaidi NP-[place] Status:REG ER Location: ED HPI History of [...] does not drink alcohol andis non-smoker. [facility] Medical History BPH (benign prostatic hyperplasia) Cancer [...] PO BID DIABETES 01/08/13[History Last Taken 02/15/23] ljddatlv-jpb-tvbut acid 0.4 mg-lycopene 300 mcg-lutein 250 mcg [...] mg-vit E 90 mg-zinc 40 mg-copper 1 ah-nztfmu-ntpkyi capsule (PreserVision AREDS-2) 1 tab PO BID eye health 12/06/22 [History Last Taken 04/09/23] cholecalciferol (vitamin D3) 50 mcg (2,000 unit) capsule (D3-2000) 50 mcg PO DAILY 02/11/23 [History Last Taken 04/09/23] losartan 100 mg tablet 100 mg PO DAILY 04/10/23 [History Last Taken 04/10/23] Allergy/AdvReac Type Severity Reaction Status Date / Time Qvsgctf-LGR-LgI Reductase AdvReac leg cramps Verified 04/10/23 08:44 Inhibitor [Gxtbjjg-Edi-Nye Reductase Inhibitor] Surgical History H/O prostatectomy History [...] to be transferred. Initially attempted to call [facility] however therewas no ability to except as they have no open beds. They did give me a cardiology number to call which I did call and received no answer. We then attempted to call [facility] and never received a call back. [...] the delta troponin showed a acute inferior PA. Chest x-ray reviewed at that time shows [...] % (Auto) 64.1 Lymph % (Auto) 21.7 [place] % (Auto) 8.0 Eos % (Auto) 4.8 [...] your Primary Care Provider. Call [facility] ([phone]) or report to the closest Emergency Room. Call 911 if necessary. 04/10/23 1257 <Electronically signed by Nicanor Martinez DO> Cosigner Signature (if applicable): CC: JOCELINE Zaidi ~ Signed [facility] Work Phone: 1(377) 574-720211-14-2023 History and physical note Author Yash Friend [facility] February 16, 2023 12:42pm Note Date/Time February 16, 2023 12:42pm [facility] Medical Records Department [address] [place] [address] [place] [address] History & Physical Exam 02/16/23 1240 MR#: [id number] Acct: [id number] Name: SINDY GREENFIELD Rep #:[id number] : 1950 72 From: Yash Friend DO PCP: JOCELINE Morejon Status:REG [facility] Location: [place] [address] HPI - General General Date of Admission: [...] except as per past mentioned HPI. [facility] Medical History BPH (benign prostatic hyperplasia) Cancer [...] PO BID DIABETES 01/08/13[History Last Taken 02/15/23] rhswkppx-vci-sxijt acid 0.4 mg-lycopene 300 mcg-lutein 250 mcg [...] mg-vit E 90 mg-zinc 40 mg-copper 1 zg-hepqao-ozwspf capsule (PreserVision AREDS-2) 1 tab PO BID [...] Type Severity Reaction Status Date / Time Dwerljk-PZJ-IoX Reductase AdvReac leg cramps Verified 02/16/23 12:26 Inhibitor [Vhcqvvu-Xbc-Xtb Reductase Inhibitor] Surgical History H/O prostatectomy History [...] CC: JOCELINE Zaidi; Yash Estrada DO~ Signed [facility] Work Phone: 1(426) 477-632011-14-2023 Procedure [facility] 02-16-2023 Procedure [facility]09-05-2023 Discharge summary Author Megan Francis [facility] December 08, 2022 9:25am Note Date/Time December 08, 2022 9:25am [facility] Medical Records Department [address] [place] [address] Discharge Summary 12/08/22915 MR#: [id number] Acct: [id number] Name: SINDY GREENFIELD Rep #:[id number] : 1950 72 From: Megan ENGEL PA-C PCP: Love Crowley DO Status:ADM I N [facility] Prov[facility] Date of Admission: 12/06/22 Primary Care [...] hr 1,000 mg PO BID DIABETES 01/08/13 xgfvbycd-ntm-mihwb acid 0.4 mg-lycopene 300 mcg-lutein 250 mcg [...] mg-vit E 90 mg-zinc 40 mg-copper 1 ey-uldiys-ivgbju capsule (PreserVision AREDS-2) 1 tab PO BID [...] Signed: Alexis Pastor MD at 17:06 EDT Reading Location ID and State: [address] [place] [address] Tel , Service support , D/C Instructions Discharge Diet: Light diet [...] a follow-up appointment for 7-10 days at [phone] Meaningful Use Info Meaningful Use Diagnoses (Choose [...] CC: RADHA Francis; Love Crowley DO~ Signed [facility] Work Phone: 1(225) 833-385009-05-2023 Discharge summary Author Megan Francis [facility] December 08, 2022 9:16am Note Date/Time December 08, 2022 9:16am [facility] Medical Records Department [address] [place] [address] Instructions for Home/Discharge Instructions 12/08/22912 MR#: [id number] Acct: [id number] Name: SINDY GREENFIELD Rep #:[id number] : [...] a follow-up appointment for 7-10 days at [phone] Test Results: Test results from this visit [...] Mcclelland DO; Love Crowley DO ~ Signed [facility] Work Phone: 1(224) 884-768909-04-2023 Discharge summary Author Hal Georgedebjarod [facility] December 07, 2022 3:22pm Note Date/Time December 06, 2022 4:02pm [facility] Medical Records Department [address] [place] [address] Emergency Department Summary 12/06/22 MR#: [id number] Acct: [id number] Name: SINDY GREENFIELD Rep #:[id number] : 1950 72 From: Hal Rivas MD PCP: Love Crowley, DO Status:ADM I N Location: MS3 RL377-2 [facility] <TORO Avalos - Last Filed: 12/06/22 20:21> History of Present Illness Chief Complaint: Abd Pain Narrative Narrative: 72-year-old male ate steak and baked potato and salad at [facility] around 1130 and then at 2 PM developed epigastric pain and nausea and vomiting. He states he had normal bladder and bowel movements this week. No fever or chills. He has no chest pain or shortness of breath. Denies history of GERD or pain with eating. No abdominal surgical history. He does not drink or smoke. [facility] <TORO Avalos - Last Filed: 12/06/22 20:21> [facility] Medical History Diabetes mellitus Hypertension Hypothyroid Leg cramping Sleep apnea treated with continuous positive airway pressure (CPAP) Home Medications levothyroxine 75 mcg tablet 100 mcg PO DAILY THYROID 01/08/13 [History Last Taken 12/06/22 05:00] metformin 500 mg tablet,extended release 24 hr 1,000 mg PO BID DIABETES 01/08/13[History Last Taken 12/06/22 13:30] hmfxulyc-pms-abszf acid 0.4 mg-lycopene 300 mcg-lutein 250 mcg [...] mg-vit E 90 mg-zinc 40 mg-copper 1 ty-hdsvlr-lwlasv capsule (PreserVision AREDS-2) 1 tab PO BID eye health 12/06/22 [History Last Taken 12/06/22 13:30] Allergy/AdvReac Type Severity Reaction Status Date / Time Pxrvxqv-CRF-PzL Reductase AdvReac leg cramps Verified 12/06/22 21:43 Inhibitor [Lcnuigh-Vrg-Uxk Reductase Inhibitor] Surgical History H/O prostatectomy History [...] <TORO Avalos - Last Filed: 12/06/22 20:21> MDM MDM Narrative Medical decision making narrative: [...] % (Auto) 65.8 Lymph % (Auto) 21.0 [place]ie % (Auto) 7.0 Eos % (Auto) 4.1 [...] Clarity Clear Urine pH 8.0 Ur Specific Odell 1.015 Urine Protein 100 H Urine Glucose [...] Rivas MD - Last Filed: 12/07/22 15:22> [facility] Narrative Medical decision making narrative: History gathered [...] % (Auto) 65.8 Lymph % (Auto) 21.0 [place] % (Auto) 7.0 Eos % (Auto) 4.1 [...] Clarity Clear Urine pH 8.0 Ur Specific Odell 1.015 Urine Protein 100 H Urine Glucose [...] Acute cholecystitis Disposition Disposition: Acute Care Hospital [facility] Discharge Date/Time: 12/06/22 20:55 What to do if you have Problems For any increased pain, shortness of breath, bleeding, nausea or vomiting, chest pain, or any unexpected problems, contact your Primary Care Provider. Call [facility] ([phone]) or report to the closest Emergency Room. Call 911 if necessary. 12/07/22 152 <Electronically signed by Hal Rivas MD> Cosigner Signature (if applicable): 12/06/222020 <Electronically signed by Terri ENGEL> CC: Love Crowley DO ~ Signed [facility] Work Phone: 1(910) 919-363309-04-2023 Progress note Author Gil Burnhamredwood llcamado [facility] December 07, 2022 2:30pm Note Date/Time December 07, 2022 2:30pm [facility] Medical Records Department [address] [place] [address] Progress Note - Hospitalist 12/07/22 1427 MR#: [id number] Acct: [id number] Name: SINDY GREENFILED Rep #:[id number] : 1950 72 From: Gil Mcclelland DO PCP: Love Crowley DO Status:ADM I N Location: [place] [address] Reason for Visit Reason for Visit: Diagnoses [...] 12/07/22 23:59 23:59 23:59 Intake Total 60 2181.0 / 2181.0 Balance 60 2181.0 / 2181.0 Lab / Micro [...] % (Auto) 65.8, Lymph % (Auto) 21.0, [place] % (Auto) 7.0, Eos % (Auto) 4.1, [...] Clarity Clear, Urine pH 8.0, Ur Specific Odell 1.015, Urine Protein 100 H, Urine Glucose [...] 82.4 H, Lymph % (Auto) 8.1 L, [place] % (Auto) 8.3, Eos % (Auto) 0.2, [...] 25 minutes Charges/Coding Visit Charges Inpatient E&M: 27176 Subs Hosp L1 12/07/22 1430 <Electronically signed by Gil Mcclelland DO> Cosigner Signature (if applicable): CC: ~ Signed [facility] Work Phone: 1(374) 506-466409-04-2023 Procedure [facility] 12-07-2022 Procedure [facility]09-03-2023 Progress note Author Marty Feliciano [facility] December 06, 2022 9:25pm Note Date/Time December 06, 2022 8:50pm [facility] Medical Records Department [address] [place] [address] Progress Note - Hospitalist 12/06/222045 MR#: [id number] Acct: [id number] Name: SINDY GREENFIELD Rep #:[id number] : 1950 72 From: Marty Feliciano MD PCP: Love Crowley DO Status:ADM I N Location: [place] [address] Reason for Visit Reason for Visit: Diagnoses Acute cholecystitis (12/06/22) Subjective Subjective Patient is a 72-year-old male with a significant history of hypertension; diabetes mellitus with nephropathy; CKD and neuropathy who presents emergency department with right upper quadrant pain that started after eating lunch at [facility]. His pain started about an hour and [...] % (Auto) 65.8, Lymph % (Auto) 21.0, [place] % (Auto) 7.0, Eos % (Auto) 4.1, [...] Clarity Clear, Urine pH 8.0, Ur Specific Odell 1.015, Urine Protein 100 H, Urine Glucose [...] 17:04 EDT Reading Location ID and State: [employer] , Service support , Gallbladder Ultrasound 12/06/22 [...] surgery would hold home losartan. Vasotec IV uwvhni-gty-ixfcl ordered. As needed hydralazine ordered. Trend blood [...] documentation, 45minutes. Charges/Coding Visit Charges Inpatient E&M: 69175 Subs Hosp L3 12/06/222124 <Electronically signed by Marty Feliciano MD> Cosigner Signature (if applicable): CC: ~ Signed [facility] Work Phone: 1([phone]) 694-242709-03-2023 History and physical note Author Markell Mitchell [facility] December 06, 2022 8:40pm Note Date/Time December 06, 2022 8:40pm [facility] Medical Records Department [address] [place] [address] History & Physical Exam 12/06/222030 MR#: [id number] Acct: [id number] Name: SINDY GREENFIELD Rep #:[id number] : 1950 72 From: Markell Hernández PCP: Love Crowley, DO Status:ADM I N Location: [address] HPI - General General Date of Service: 12/06/22 Chief Complaint: Acute onset right upper quadrant abdominal pain HPI Narrative SINDY GREENFIELD, is a 72 M who presents to [facility] after experiencing acute onset right upper quadrant abdominal pain at approximately 1400 this afternoon. Patient states that he was out to dinner at [facility] and ate a salad with dressing and part of a steak with a potato at approximately 1215. Thereafter he experienced the abdominal pain described above as well as some associated nausea. In route to the hospital he did have some vomiting. Hedenies any associated fevers or chills. Mr. Greenfield reports that he presented here to [facility] ER 5 days ago with the same [...] gallstone in the neck ofthe gallbladder. The tooth cutter pinion reported a positive sonographic Rushing sign. In [...] with a HbA1c less than 6.5. [facility] Home Medications levothyroxine 75 mcg tablet 100 mcg PO DAILY THYROID 01/08/13 [History Last Taken 11/30/18 04:45] metformin 500 mg tablet,extended release 24 hr 1,000 mg PO BID DIABETES 01/08/13[History Last Taken Unknown] wmrsoznq-mrt-ckvtk acid 0.4 mg-lycopene 300 mcg-lutein 250 mcg [...] Type Severity Reaction Status Date / Time Oserdpy-ZVC-FvM Reductase AdvReac Abd Verified 12/06/22 15:44 Inhibitor cramps/diarrhea [Palthob-Qgv-Yxv Reductase Inhibitor] Social History Smoking Status: Never [...] % (Auto) 65.8, Lymph % (Auto) 21.0, [place] % (Auto) 7.0, Eos % (Auto) 4.1, [...] Clarity Clear, Urine pH 8.0, Ur Specific Odell 1.015, Urine Protein 100 H, Urine Glucose [...] 17:04 EDT Reading Location ID and State: [employer] , Service support , Gallbladder Ultrasound 12/06/22 [...] in a.m., empiric coverage with Zosyn Endo: Herro-xb-hoak glucose testing, overall excellent control of blood sugar despite diabetes diagnosis per patient and recall of A1c Proph: SCDs Dispo: Admit to inpatient Charges/Coding Visit Charges Inpatient E&M: 39203 Init Hosp L2 12/06/222039 <Electronically signed by Markell Mitchell MD> Cosigner Signature (if applicable): CC: Dr. 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 So he took some nysn-uam-uppelda decongestant. He then felt more congested so [...] DAILY DIABETES 01/08/13 [History Last Taken Unknown] hwlqpaai-ifh-jhanu acid 0.4 mg-lycopene 300 mcg-lutein 250 mcg [...] Type Severity Reaction Status Date / Time Nffjqug-ZDT-WaP Reductase AdvReac Abd Verified 11/30/18 06:17 Inhibitor cramps/diarrhea [Wbxftdj-Gpf-Pkl Reductase Inhibitor] Social History Smoking Status: Never [...] eating meal and taking multiple different medications ffod-ybu-ioiggdh. We discussed reasons to return. Lab Data [...] (Auto) 63.7 Lymph % (Auto) 18.8 L [place] % (Auto) 10.0 Eos % (Auto) 6.2 [...] is slight first-degree AV block with a WV interval of 202 ms. QRS and QTc are normal. Discharge Plan Triage Chief Complaint: Chest Pain ED Provider: Leonides Arauz Dx/Rx/DC Orders Clinical Impression: Arthralgia, Xiphoid pain, Epigastric pain Instructions: ED Epigastric Pain Uncertain Cause Prescriptions: No Action levothyroxine 75 MCG tablet 100 mcg PO DAILY metformin 500 MG tablet 1,000 mg PO DAILY tbgbhqgy-skd-CF-lycopen-lutein [Centrum Silver] 1 EACH tablet 1 ea PO DAILY vit A,C and M-uavbuu-gisntkss [Ocuvite with Lutein] 1 EACH tablet 1 ea PO DAILY bisoprolol-hydrochlorothiazide 1 EACH tablet 1 ea PO DAILY potassium citrate [Urocit-K 10] 10 MEQ tablet extended release 10 meq PO DAILY omega 6-jar-loe-fish oil [Fish Oil] 500 MG capsule,delayed release(DR/EC) [...] BID Qty: 20 0RF Primary Care Provider: Love Crowley Referrals: Love Crowley, [Primary Care Provider] - 3-5 Days Disposition Disposition: Home, Self Care What to do if you have Problems For any increased pain, shortness of breath, bleeding, nausea or vomiting, chestpain, or any unexpected problems, contact your Primary Care Provider. Call [facility] ([phone]) or report to the closest Emergency Room. Call 911 if necessary. 11/30/222307 <Electronically signed by Leonides Arauz MD> Cosigner Signature (if applicable): CC: Love Crowley DO ~ Signed [facility] Work Phone: 1(821) 742-277006-07-2022 Miscellaneous Notes* Telephone Encounter - KOFI Cooley - 09/09/2021 9:46 AM EDT AISLINN 03/26/2021 Appointment scheduled for 09/29/2021 Please advise. Thank you. KOFI Cooley * Telephone Encounter - Kristi Camacho - 09/09/2021 9:37 AM EDT Pharmacy verified in [facility] Patient has been identified by name and [...] advise. Kristi Boyd Pss [facility] Miscellaneous Notes* Telephone Encounter - Hamida Montoya RN - 08/27/2021 2:47 PM EDT Faxed most recent ov notes and lab results to Dr. Tone Colon- endocrinology/Raquel, per patient request. Reports he will see this doctor on , for his chronic kidney dx and DM. [facility]-2021 NoteHNO ID: [id number] Author: Eboni Cardozo APRN.MEDICAL SPECIALIST Service: ? Author Type: Nurse Practitioner Type: [...] Lipitor [Atorvastatin Calcium], Niaspan [Niacin (Antihyperlipidemic)], Pravastatin, Edksohj-Xei-Pfc Reductase Inhibitors, and Zocor [Simvastatin] MEDICATIONS Current [...] distal pulses, not se (more content not included)...[facility]09-28-2021 NoteHNO ID: [id number] Author: Brittany Mane APRN.MEDICAL SPECIALIST Service: ? Author Type: Nurse Practitioner Type: [...] history is provided by the patient. No language instructor was used. Cough This is a new [...] OR W/O [facility] SPEC 11/20/2011 Colonoscopy. repeat in 10 years - [facility]ICAL PROSTATECTOMY 11/30/2018 - PAST SURGICAL HISTORY OF right 5th finger - REMOVAL OF TONSILS,<12 Y/O ALLERGIES Crestor [Rosuvastatin Calcium], Dust, Hayfever [Homeopathic Products], Lipitor [Atorvastatin Calcium], Niaspan [Niacin (Antihyperlipidemic)], Pravastatin, Rdafvhm-Ulk-Hik Reductase Inhibitors, and Zocor [Simvastatin] MEDICATIONS levothyroxine [...] and gait problem. Skin (more content not included)...[facility]06-22-2021 NoteHNO ID: [id number] Author: Eboni Cardozo APRN.MEDICAL SPECIALIST Service: ? Author Type: Nurse Practitioner Type: [...] Lipitor [Atorvastatin Calcium], Niaspan [Niacin (Antihyperlipidemic)], Pravastatin, Aginrdl-Eic-Ppj Reductase Inhibitors, and Zocor [Simvastatin] MEDICATIONS Current [...] Latest Ref Rng AND (more content not included)...[facility]06-14-2011 History of Past illness Narrative* Problem Noted Date Resolved Date DM w/o complication type II 09/16/201001/04 Unspecified sleep apnea 03/31/2005 01/29/20 15 HYPERLIPIDEMIA NEC/NOS 5 documented as of this encounter (statuses as of 08/27/2021) [facility]06[facility] History of Past illness Narrative* Problem Noted Date Resolved Date DM w/o complication type II 09/16/201001/04 Unspecified sleep apnea 03/31/2005 01/29/20 15 HYPERLIPIDEMIA NEC/NOS 5 documented as of this encounter (statuses as of 09/09/2021) [facility] Author Megan Francis [facility] December 08, 2022 9:16am Note Date/Time December 08, 2022 9:16am [facility] Medical Records Department [address] [place] [address] Instructions for Home/Discharge Instructions 12/08/2213 MR#: [id number] Acct: [id number] Name: SINDY GREENFIELD Rep #:[id number] : 1950 72 From: Megan ENGEL PA-C PCP: Love Crowley, DO Status:ADM I N Discharge Instructions Diet [...] a follow-up appointment for 7-10 days at [phone] Test Results: Test results from this visit [...] Order can be placed): Home, Self Care 12/08/22915<Electronically signed by Megan ENGEL PA-C>Megan ENGEL PA-C CC: Dr. Gil Mcclelland DO; Love Crowley DO ~ Signed [facility] Work Phone: Discharge summary Author [facility] December 08, 2022 9:25am Note Date/Time December 08, 2022 9:25am [facility] Medical Records Department [address] [place] [address] Discharge Summary 12/08/22915 MR#: [id number] Acct: [id number] Name: SINDY GREENFIELD Rep #:[id number] : 1950 72 From: Megan ENGEL PA-C PCP: Love Crowley DO Status:ADM I N Location: [place] [address] Providers Date of Admission: 12/06/22 Primary Care [...] hr 1,000 mg PO BID DIABETES 01/08/13 oaqglmla-tls-jibln acid 0.4 mg-lycopene 300 mcg-lutein 250 mcg [...] mg-vit E 90 mg-zinc 40 mg-copper 1 ol-iywnli-osfnvt capsule (PreserVision AREDS-2) 1 tab PO BID [...] a follow-up appointment for 7-10 days at [phone] Meaningful Use Info Meaningful Use Diagnoses (Choose [...] CC: RADHA Francis; Love Crowley DO~ Signed [facility] Work Phone: Discharge summary Author Romie Tuttle [facility] April 13, 2023 10:48am Note Date/Time April 13, 2023 10 :48am [facility] Medical Records Department [address] [place] [address] Discharge Summary 04/13/23 1045 MR#: [id number] Acct: [id number] Name: SINDY GREENFIELD Rep #:[id number] : [...] Code(s): I25.10 - Atherosclerotic heart disease of koi coronary artery without angina pectoris Qualifiers: Coronary Disease-Associated Artery/Lesion type: koi artery [place] vs. transplanted heart: koi heart Associated angina: with unstable angina Qualified Code(s): I25.110 - Atherosclerotic heart disease of koi coronary artery with unstable angina pectoris (3) Transient complete heart block: Status: Acute Code(s): I44.2 - Atrioventricular block, complete Plan Patient is a 73-year-old gentleman who presented with chest pain diagnosed with acute ST segment elevation PA underwent emergency left heart catheterization found to have a complete occlusion of the proximal RCA underwent aspiration thrombectomy, balloon angioplasty RIRI placement. Subsequently transferred to the intensive care unit 1. Acute STEMI -Patient taken emergently to the Pulp Refiner Operator and was found to have a complete [...] hr 1,000 mg PO BID DIABETES 01/08/13 znjmxxkl-qjr-ljqjv acid 0.4 mg-lycopene 300 mcg-lutein 250 mcg [...] mg-vit E 90 mg-zinc 40 mg-copper 1 hd-qqjydl-twgbii capsule (PreserVision AREDS-2) 1 tab PO BID [...] Referring Physician: Mita Zaidi Performed By: Mita Rocha RDCS, RVT D/C Instructions Discharge Diet: Low [...] Gian not ordered:: Allergy Done w/ Acute PA measure.: Yes Documented LVEF (%): 55 Discharge [...] Self Care Charges/Coding Visit Charges Inpatient E&M: 62961 Disch Hosp >30min 04/13/23 1048 <Electronically signed by Romie Tuttle MD> Cosigner Signature (if applicable): CC: JOCELINE Zaidi; Dr. Romie Tuttle MD~ Signed [facility] Work Phone: Discharge summary Author Gil Mcclelland [facility] May 19, 2023 9:49am Note Date/Time May 19, 2023 9:42am [facility] Medical Records Department [address] [place] [address] Instructions for Home/Discharge Instructions 05/19/23 0942 MR#: [id number] Acct: [id number] Name: SINDY GREENFIELD Rep #:[id number] : [...] by Gil Mcclelland DO>Gil Mcclelland DO CC: BENNETTC Mita Zaidi; Dr. Markell Humphrey MD ~ Signed [facility] Work Phone: Discharge summary Author [facility] May 19, 2023 9:53am Note Date/Time May 19, 2023 9:53am [facility] Medical Records Department [address] [place] [address] Discharge Summary 05/19/23 0949 MR#: [id number] Acct: [id number] Name: SINDY GREENFIELD Rep #:[id number] : 1950 73 From: Gil Mcclelland DO PCP: JOCELINE Morejon Status:ADM [facility] Prov[facility] Date of Admission: 05/18/23 Date [...] Code(s): I25.10 - Atherosclerotic heart disease of koi coronary artery without angina pectoris (3) Transient [...] Zetia, I told him that taking an ntgu-rwk-quuvmso fish oil supplement would not be beneficial [...] 55 minutes Medications at Discharge Home Medications rqvlwrmh-ufb-vtvfj acid 0.4 mg-lycopene 300 mcg-lutein 250 mcg tablet (Centrum Silver) 1 ea PO DAILY SUPPLEMENT' 01/08/13 potassium citrate 10 mEq (1,080 mg) tablet,extended release (Urocit-K 10) 1,080 mg PO DAILY SUPPLEMENT 05/24/15 fenofibrate nanocrystallized 145 mg tablet 145 mg PO DAILY CHOLESTEROL 10/19/17 ezetimibe 10 mg tablet 10 mg PO DAILY 12/06/22 vit C 250 mg-vit E 90 mg-zinc 40 mg-copper 1 py-gxxxkc-nesvwc capsule (PreserVision AREDS-2) 1 tab PO BID [...] was seen in the emergency room at [facility] with a chief complaint of lightheadedness and rapid heartbeat, EKG performed in the ER showed the patient to be in SVT with a rate of scvgtryklokwb492, patient was given adenosine which returned the [...] % (Auto) 59.8, Lymph % (Auto) 23.9, [place] % (Auto) 8.8, Eos % (Auto) 5.7 [...] 2.5 mg PO DINNER cholecalciferol (vitamin D3) [D3-1999] 50 mcg (2,000 unit) capsule 50 mcg [...] 2 weeks, call office for appointment) Mita Zaidi, ARMIDA-C [Primary Care Provider] - Disposition Disposition (needs filled in before D/C Order can be placed): Home, Self Care Charges/Coding Visit Charges Inpatient E&M: 41096 Subs Hosp L1 05/19/23 0953 <Electronically signed by Gil Mcclelland DO> Cosigner Signature (if applicable): CC: JOCELINE Zaidi; Dr. Gil Mcclelland DO~ Signed [facility] Work Phone: evaluation noteNo assessment information available [facility] Work Phone: evaluation note* Diagnosis Diabetes mellitus type II (HCC) Hyperlipidemia, unspecified hyperlipidemia type Hypertriglyceridemia Pure hyperglyceridemia [facility] Diagnosis Onset Date Resolution Status Acute cholecystitis acute Nausea and vomiting acute Diabetes 1.5, managed as type 2 chronic Hypertension [facility] Work Phone: Evaluation note* Diagnosis Onset Date Resolution Status Diabetes 1.5, managed as type 2 chronic Hypertension chronic Acute cholecystitis resolved Nausea and vomiting resolved S/P laparoscopic cholecystectomy acute [facility] Work Phone: Evaluation note* Diagnosis Onset Date Resolution Status Diabetes 1.5, managed as type 2 chronic Hypertension chronic Acute cholecystitis resolved Nausea and vomiting resolved S/P laparoscopic cholecystectomy acute Encounter for screening for malignant neoplasm of colon acute [facility] Work Phone: Evaluation note* Diagnosis Onset Date Resolution Status S/P laparoscopic cholecystectomy acute Encounter for screening for malignant neoplasm of colo n acute [facility] Work Phone: Evaluation note* Diagnosis Onset Date Resolution Status S/P laparoscopic cholecystectomy acute Encounter for screening for malignant neoplasm of colo n acute Coronary artery disease acut e Dyslipidemia acute ST elevation (STEMI) myocard ial infarction involving right coronary artery acute Transient complete heart block acute Diabetes 1.5, managed as type 2 chronic Hypertension chronic Hypothyroid [facility] Work Phone: Evaluation note* Diagnosis Onset Date Resolution Status S/P laparoscopic cholecystectomy acute Encounter for screening for malignant neoplasm of colon acute Coronary artery disease acut e Dyslipidemia acute Transient complete heart block acute Diabetes 1.5, managed as type 2 chronic Hypertension chronic Hypothyroid chronic ST elevation (STEMI) myocard ial infarction involving right coronary artery resolved [facility] Work Phone: Evaluation note* Diagnosis Onset Date [...] te Transient complete heart block acute Hypertension [facility] Work Phone: Evaluation note* Diagnosis Onset [...] artery disease acut e Supraventricular tachycardia acute [facility] Work Phone: Evaluation note* Diagnosis Onset Date [...] Transient complete heart block acute Hyperlipemia chronic [facility] Work Phone: Evaluation note* Diagnosis Onset [...] Dyslipidemia acute SVT (supraventricular tachycardia) acute Hypertension [facility] Work Phone: Evaluation note* Diagnosis Onset [...] Dyslipidemia acute SVT (supraventricular tachycardia) acute Hypertension [facility] Work Phone: History and physical note Author Markell Mitchell [facility] December 06, 2022 8:40pm Note Date/Time December 06, 2022 8:40pm [facility] Medical Records Department [address] [place] [address] History & Physical Exam 12/06/222030 MR#: [id number] Acct: [id number] Name: SINDY GREENFIELD Rep #:[id number] : 1950 72 From: Markell Hernández PCP: Love Crowley, DO Status:ADM I N Location: [place] [address] HPI - General General Date of Service: 12/06/22 Chief Complaint: Acute onset right upper quadrant abdominal pain HPI Narrative SINDY GREENFIELD, is a 72 M who presents to [facility] after experiencing acute onset right upper quadrant abdominal pain at approximately 1400 this afternoon. Patient states that he was out to dinner at [facility] and ate a salad with dressing and part of a steak with a potato at approximately 1215. Thereafter he experienced the abdominal pain described above as well as some associated nausea. In route to the hospital he did have some vomiting. Hedenies any associated fevers or chills. Mr. Greenfield reports that he presented here to [facility] ER 5 days ago with the same [...] gallstone in the neck ofthe gallbladder. The tooth cutter pinion reported a positive sonographic Rushing sign. In [...] with a HbA1c less than 6.5. [facility] Home Medications levothyroxine 75 mcg tablet 100 mcg PO DAILY THYROID 01/08/13 [History Last Taken 11/30/18 04:45] metformin 500 mg tablet,extended release 24 hr 1,000 mg PO BID DIABETES 01/08/13[History Last Taken Unknown] twuscjvd-hmp-tktsz acid 0.4 mg-lycopene 300 mcg-lutein 250 mcg [...] Type Severity Reaction Status Date / Time Jiboiwf-WFE-MjN Reductase AdvReac Abd Verified 12/06/22 15:44 Inhibitor cramps/diarrhea [Zhrxmsw-Kgk-Qpj Reductase Inhibitor] Social History Smoking Status: Never [...] % (Auto) 65.8, Lymph % (Auto) 21.0, [place] % (Auto) 7.0, Eos % (Auto) 4.1, [...] Clarity Clear, Urine pH 8.0, Ur Specific Odell 1.015, Urine Protein 100 H, Urine Glucose [...] in a.m., empiric coverage with [facility]: [id number] glucose testing, overall excellent control of blood sugar despite diabetes diagnosis per patient and recall of A1c Proph: SCDs Dispo: Admit to inpatient Charges/Coding Visit Charges Inpatient E&M: 29743 Init Hosp L2 12/06/222039 <Electronically signed by Markell Mitchell MD> Cosigner Signature (if applicable): CC: Dr. Markell Mitchell MD; Love Crowley DO~ Signed [facility] Work Phone: Hospital Discharge instructions Additional Instructions [...] prescription pain medications. Call the office at [phone] with any questions about your medications ACTIVITY [...] other questions/concerns, please call the office at [phone]. [facility] Work Phone: Reason for referral (narrative)No reason for referral information availableWLouis Stokes [facility] Work Phone: Summary Purpose Family History No Family History Records FoundNo Family History Records FoundNo Family History Records Found Advance Directives Advance Directive Response Recorded Date/ Time Advance Directives No July 28, 2 016 1:13pm Living Will No November 30 9 12:48pm Power of Social Media Analyst No November 30, 019 12:48pm Advance Directive Response Recorded Date/ Time Advance Directives No July 28, 2 016 12:13pm Living Will No November 30 9 11:48am Power of Social Media Analyst No November 30, 019 11:48am Advance Directive Response Recorded Date/ Time Advance Directives No July 28, 2 016 1:13pm Living Will No November 30 8:13pm Power of Social Media Analyst No November 30 023 8:13pm Advance Directive Response Recorded Date/ Time Advance Directives No July 28, 016 1:13pm Living Will No December 06 023 4:35pm Power of Social Media Analyst No December 06, 2022 4:35pm Advance Directive Response Recorded Date/ Time Name of Medical Power of Social Media Analyst Doug hernández, December 06, 2022 9:32pm Advance Directives No July 28, 016 1:13pm Living Will Yes December 06 9:32pm Power of Social Media Analyst Yes December 06, 2022 9:32pm Advance Directive Response Recorded Date/ Time Name of Medical Power of Social Media Analyst Doug hernández, December 06, 2022 8:32pm Name of Medical Power of Social Media Analyst February 11, 2023 2:47pm Advance Directives No July 28 12:13pm Living Will Yes February 11 2:47pm Power of Social Media Analyst Yes February 11, 2023 2:47pm Advance Directive Response Recorded Date/ Time Name of Medical Power of Social Media Analyst February 11, 2023 2:47pm Name of Medical Power of Social Media Analyst DOUG GREENFIELD () AND SUSAN LOPEZ (DAUGHTER) April 10, 2023 9:48am Advance Directives No July 28 016 12:13pm Living Will Yes April 10 9:48am Power of Social Media Analyst Yes April 10 9:48am Advance Directive Response Recorded Date/ Time Name of Medical Power of Social Media Analyst February 11, 2023 2:47pm Name of Medical Power of Social Media Analyst DOUG GREENFIELD () AND SUSAN LOPEZ (DAUGHTER) April 10, 2023 9:48am Advance Directives on File Yes Aprua 2023 10:18am Advance Directives No July 28 016 12:13pm Living Will Yes April 23 10:18am Power of Social Media Analyst Yes April 23, 2023 10:18am Advance Directive Response Recorded Date/ Time Name of Medical Power of Social Media Analyst February 11, 2023 2:47pm Name of Medical Power of Social Media Analyst DOUG GREENFIELD () AND SUSAN LOPEZ (DAUGHTER) April 10, 2023 9:48am Advance Directives on File Yes 2023 10:18am Name of Medical Power of Social Media Analyst May 18, 2023 10:17am Advance Directives No July 28, 12:13pm Living Will Yes May 18 10:17am Power of Social Media Analyst Yes May 18, 2023 10:17am Advance Directive Response Recorded Date/ Time Name of Medical Power of Social Media Analyst February 11, 2023 2:47pm Name of Medical Power of Social Media Analyst DOUG GREENFIELD () AND SUSAN LOPEZ (DAUGHTER) April 10, 2023 9:48am Advance Directives on File Yes 2023 10:18am Name of Medical Power of Social Media Analyst Laura Greenfield, May 18, 2023 1:39pm Advance Directives No July 28, 12:13pm Living Will Yes May 18 1:39pm Power of Social Media Analyst Yes May 18, 2023 1:39pm Advance Directive Response Recorded Date/ Time Name of Medical Power of Social Media Analyst DOUG GREENFIELD () AND SUSAN LOPEZ (DAUGHTER) April 10, 2023 10:48am Advance Directives on File Yes 2023 11:18am Name of Medical Power of Social Media Analyst Laura Greenfield, May 18, 2023 2:39pm Advance Directives No July 28, 1:13pm Living Will Yes May 18 2:39pm Power of Social Media Analyst Yes May 18, 2023 2:39pm Advance Directive Response Recorded Date/ Time Living Will Yes August 12, 2023 10 :42am Do you have a Healthcare Power of Social Media Analyst? Yes August 12, 2023 10:42am Advance Directives No August 12, 2023 10:42am Advance Directive Response Recorded Date/ Time Living Will Yes August 12, 2023 10 :42am Do you have a Healthcare Pow er of Social Media Analyst? Yes August 12, 2023 10:42am Do you have a Healthcare Pow er of Social Media Analyst? Yes August 15, 2024 3:20pm Name of Medical Power of Social Media Analyst Doug & Loreto Lopez August 15, 2024 3:20pm Advance Directives No August 12, 2023 10:42am Advance Directive Response Recorded Date/ Time Do you have a Healthcare Pow er of Social Media Analyst? Yes August 15, 2024 3:20pm Name of Medical Power of Social Media Analyst Doug Gennaro Loreto rocky John August 15, 2024 3:20pm Advance Directives No August 12, 2023 10:42am Advance Directive Response Recorded Date/ Time Advance Directives No August 12, 2023 10:42am [...] PCI with stent PCI with stenting S/P [facility] 04/13 STEMI Reason for Visit Encounter for [...] Documentation STEMI STEMI PCI with stent S/P [facility] 04/13 STEMI PCI with stenting Reason for [...] Documentation STEMI STEMI PCI with stent S/P [facility] 04/13 STEMI PCI with stenting PCI with [...] Documentation STEMI STEMI PCI with stent S/P [facility] 04/13 STEMI PCI with stenting PCI with [...] Documentation STEMI STEMI PCI with stent S/P [facility] 04/13 STEMI PCI with stenting SUPRAVENTRICULAR TACHICARDIA, CORONARY ARTERY DISE SUPRAVENTRICULAR TACHICARDIA, CORONARY ARTERY DISE SUPRAVENTRICULAR TACHICARDIA, CORONARY ARTERY DISE SUPRAVENTRICULAR TACHICARDIA, CORONARY ARTERY DISE SUPRAVENTRICULAR TACHICARDIA, CORONARY ARTERY DISE PCI with stenting S/P [facility] 05/19 SVT Reason for Visit Encounter for [...] Documentation STEMI STEMI PCI with stent S/P [facility] 04/13 STEMI PCI with stenting SUPRAVENTRICULAR TACHICARDIA, CORONARY ARTERY DISE SUPRAVENTRICULAR TACHICARDIA, CORONARY ARTERY DISE SUPRAVENTRICULAR TACHICARDIA, CORONARY ARTERY DISE SUPRAVENTRICULAR TACHICARDIA, CORONARY ARTERY DISE SUPRAVENTRICULAR TACHICARDIA, CORONARY ARTERY DISE PCI with stenting S/P [facility] 05/19 SVT 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 PCI with [...] Documentation STEMI STEMI PCI with stent S/P [facility] 04/13 STEMI PCI with stenting SUPRAVENTRICULAR TACHICARDIA, CORONARY ARTERY DISE SUPRAVENTRICULAR TACHICARDIA, CORONARY ARTERY DISE SUPRAVENTRICULAR TACHICARDIA, CORONARY ARTERY DISE SUPRAVENTRICULAR TACHICARDIA, CORONARY ARTERY DISE SUPRAVENTRICULAR TACHICARDIA, CORONARY ARTERY DISE PCI with stenting S/P [facility] 05/19 SVT 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 PCI with [...] Documentation STEMI STEMI PCI with stent S/P [facility] 04/13 STEMI PCI with stenting SUPRAVENTRICULAR TACHICARDIA, CORONARY ARTERY DISE SUPRAVENTRICULAR TACHICARDIA, CORONARY ARTERY DISE SUPRAVENTRICULAR TACHICARDIA, CORONARY ARTERY DISE SUPRAVENTRICULAR TACHICARDIA, CORONARY ARTERY DISE SUPRAVENTRICULAR TACHICARDIA, CORONARY ARTERY DISE PCI with stenting S/P [facility] 05/19 SVT 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 PCI with [...] Documentation STEMI STEMI PCI with stent S/P [facility] 04/13 STEMI PCI with stenting SUPRAVENTRICULAR TACHICARDIA, CORONARY ARTERY DISE SUPRAVENTRICULAR TACHICARDIA, CORONARY ARTERY DISE SUPRAVENTRICULAR TACHICARDIA, CORONARY ARTERY DISE SUPRAVENTRICULAR TACHICARDIA, CORONARY ARTERY DISE SUPRAVENTRICULAR TACHICARDIA, CORONARY ARTERY DISE PCI with stenting S/P [facility] 05/19 SVT 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 PCI with [...] Stenosis of right carotid artery August 1:09pm Chief Complaint Admit Date Cardiac Clearance June [...] WK FU August 30, 2024 1:09p m S/P R TCAR September 06, 2024 7:30a m Chief Complaint Admit Date Cardiac Clearance June [...] WK FU August 30, 2024 1:09p m S/P R TCAR September 06, 2024 7:30a m CERVICAL SPINE September 29, 2024 3:17 pm RM 1 September 29, 2024 3:43 pm Reason for Visit Admit Date Lightheaded June [...] Stenosis of right carotid artery August 1:09pm Cervical myelopathy September 29, 2024 3:17 pm DDD (degenerative disc disease), cervica l September 29, 2024 3:17pm DISH (diffuse idiopathic skeletal hypero stosis) September 29, 2024 3:17pm Spinal stenosis in cervical region September 29, 2024 3:17pm Chief Complaint Admit Date Carotid artery disease June 23, 2024 9:11am [...] WK FU August 30, 2024 1:09p m S/P R TCAR September 06, 2024 7:30a m CERVICAL SPINE September 29, 2024 3:17 pm RM 1 September 29, 2024 3:43 pm pat wants copy of results sent to dr kimani reynoso also October 04, 2024 7:29am Reason for Visit Admit Date Carotid artery disease June 23, 2024 9:11am Stenosis of right carotid artery July 042024 2:50pm Stenosis of right carotid artery August 1:03pm Stenosis of right carotid artery August 1:09pm Cervical myelopathy September 29, 2024 3:17 pm DDD (degenerative disc disease), cervica l September 29, 2024 3:17pm DISH (diffuse idiopathic skeletal hypero stosis) September 29, 2024 3:17pm Spinal stenosis in cervical region September 29, 2024 3:17pm Chief Complaint Admit Date Post TCAR 2-4 WK FU August 30, 2024 1:09p m S/P R TCAR September 06, 2024 7:30a m CERVICAL SPINE September 29, 2024 3:17 pm RM 1 September 29, 2024 3:43 pm pat wants copy of results sent to dr kimani reynoso also October 04, 2024 7:29am 6 M FU December 18, 2024 1:02pm Reason for Visit Admit Date Stenosis of right carotid artery August 1:09pm Cervical myelopathy September 29, 2024 3:17 pm DDD (degenerative disc disease), cervica l September 29, 2024 3:17pm DISH (diffuse idiopathic skeletal hypero stosis) September 29, 2024 3:17pm Spinal stenosis in cervical region September 29, 2024 3:17pm Additional Source Comments (unrecognized sect ion and content) No Status Records FoundNo Status Records FoundNo Status Records Found INFORMATION SOURCE (unrecogn ized section and content) DATE CREATED AUTHOR 12/23/2020 [facility] DATE CREATED AUTHOR AUTHOR'S ORGANIZ ATION 08/29/2021 [facility] DATE CREATED AUTHOR AUTHOR'S ORGANIZ ATION 10/15/2024 [facility] Goals (unrecognized section and content) Goals may [...] or prosecute any alcohol or drug abuse patient.[facility] the event this information is protected by the Federal Confidentiality of Alcohol and Drug Abuse Patient Records regulations: The Federal rules restrict any use of the information to criminally investigate or prosecute any alcohol or drug abuse patient.[facility] the event this information is protected by the Federal Confidentiality of Alcohol and Drug Abuse Patient Records regulations: The Federal rules restrict any use of the information to criminally investigate or prosecute any alcohol or drug abuse patient.[facility] Reason for Visit (unrecogniz ed section and content) Reason Comments Faxed to [facility] Reason Onset Date Comments Refill Request 09/09/2021 Reason Onset Date Comments colonoscopy/office visit due/quality team callin g 10/13/2023 Care Teams (unrecognized sec tion and content) 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 Zena Barr MD Family Provider Active Love Crowley DO Primary Care Provider Active Team Status: Inactive Member Role Status Dates Love Crowley DO Primary Care Provider Active Dr. Tone Horton , Attending Provider, Referring Provider Active Team Status: Inactive Member Role Status Dates Love Crowley DO Primary Care Provider Active Dr. Leonides Arauz MD Emergency Provider Active Team Status: Active Member Role Status Dates Love Crowley DO Primary Care Provider Active Hal Rivas MD Emergency Provider Active Dr. Markell Mitchell MD Admit Provider, Attending Provi melanie Active Team Status: Inactive Member Role Status Dates Loev Crowley DO Primary Care Provider Active Dr. [...] Provider, Other Provider Active Dr. Gil Mcclelland , DO Other Provider Active Team Status: Active Member Role Status Dates Love Crowley , DO Primary Care Provider Active Hal Rivas MD Emergency Provider Active Dr. Markell Mitchell MD Admit Provider, Other Provider Active Dr. Gil Mcclelland , DO Attending Provider, Other Pro vider Active Team Status: Active Member Role Status Dates Love Crowley , DO Primary Care Provider Active Hal Rivas MD Emergency Provider Active Dr. Markell Mitchell MD Admit Provider, Other Provider Active Dr. Gil Mcclelland , DO Other Provider Active Megan ENGEL PA-C Attending Provider Active Team Status: Inactive Member [...] Crowley DO Primary Care Provider Active Dr. Heladio Archibald MD Attending Provider, Referr ing Provider Active Dr. Tone Horton , DO Other Provider Active Team Status: Active Member Role Status Dates Dr. Zena Barr MD Family Provider Active JOCELINE Morejon Primary Care Provider Active Team Status: Active Member Role Status Dates Love Crowley DO Primary Care Provider Active Mindi Cohen Attending Provider Active Team Status: Active Member Role Status Dates Dr. Yash Estrada , DO Attending Provider, Other Prov ider Active Mita Zaidi NP-C Primary Care Provider, Referring P shyla Active Team Status: Inactive Member Role Status Dates Dr. Yash Estrada , Attending Provider Active Mita Dejuan , VISOR INSTALLER-C Primary Care Provider, Referring Elia mansfield Active Team Status: Active Member Role Status Dates Mita Dejuan , VISOR INSTALLER-C Primary Care Provider Active Dr. Tone Horton DO Attending Provider, Referring Provider Active Team Status: Inactive Member Role Status Dates Mita Dejuan , VISOR INSTALLER-C Primary Care Provider Active Dr. Nicanor Martinez DO Emergency Provider Active Team Status: Inactive Member Role Status Dates Mita Dejuan , VISOR INSTALLER-C Primary Care Provider Active Dr. Tone Horton DO Attending Provider, Referring Provider Active Team Status: Active Member Role Status Dates Mitasravan Zaidi , VISOR INSTALLER-C Primary Care Provider Active Dr. Nicanor Martinez DO Emergency Provider Active Dr. Bo Albert MD Admit Provider, At tending Provider, Other Provider Active Team Status: Active Member Role Status Dates Mitasravan Zaidi , VISOR INSTALLER-C Primary Care Provider Active Dr. Nicanor Martinez DO Emergency Provider Active Dr. oB Albert MD Admit Provider, Other Provider A ctive Dr. Tereza Tolentino MD Attending Provider, Other Provid er Active Team Status: Active Member Role Status Dates Mita Zaidi , VISOR INSTALLER-C Primary Care Provider Active Dr. Nicanor Martinez DO Emergency Provider Active Dr. Bo Albert MD Admit Provider, At tending Provider, Other Provider Active Dr. Tereza Tolentino MD Other Provider Active Dr. Romie Tuttle MD Other Provider Active Team Status: Active Member Role Status Dates Mita Zaidi , VISOR INSTALLER-C Primary Care Provider Active Dr. Nicanor Martinez DO Emergency Provider Active Dr. Bo Albert MD Admit Provider, Other Provider A ctive Dr. Tereza Tolentino MD Other Provider Active Dr. Romie Tuttle MD Attending Provider, Other Provid er Active Team Status: Active Member Role Status Dates Mita Dejuan , VISOR INSTALLER-C Primary Care Provider Active Michell Wheat Attending Provider Active Team Status: Active Member Role Status Dates Mitasravan Zaidi , VISOR INSTALLER-C Primary Care Provider Active Dr. Nicanor Martinez DO Emergency Provider Active Dr. Bo Albert MD Admit Provider, Other Provider A ctive Dr. Tereza Tolentino MD Other Provider Active Dr. Romie Tuttle MD Attending Provider Active Team Status: Active Member Role Status Dates Miat Dejuan , VISOR INSTALLER-C Primary Care Provider Active Dr. Eamon Cortez MD Attending Provider Active Team Status: Inactive Member Role Status Dates Mita Dejuan , VISOR INSTALLER-C Primary Care Provider Active Dr. Nicanor Martinez , Emergency Provider Active Dr. Bo Albert MD Admit Provider, Other Provider A ctive Dr. Tereza Tolentino MD Other Provider Active Dr. Romie Tuttle MD Attending Provider Active Team Status: Inactive Member Role Status Dates Mita Dejuan , VISOR INSTALLER-C Primary Care Provider Active Tari Peñaloza VISOR INSTALLER, VISOR INSTALLER-C Attending Provider, Referring Pro vider Active Team Status: Inactive Member Role Status Dates Mita Dejuan , VISOR INSTALLER-C Primary Care Provider, Referring P rovider Active Michell Kahn VISOR INSTALLER, VISOR INSTALLER-C Attending Provider Active Team Status: Active Member Role Status Dates Mitasravan Zaidi , VISOR INSTALLER-C Primary Care Provider Active Dr. Bo Albert MD Attending Provider, Referring Pr ovider Active Team Status: Inactive Member Role Status Dates Mitasravan Zaidi , VISOR INSTALLER-C Primary Care Provider Active Dr. Bo Albert MD Attending Provider, Referring Pr ovider Active Team Status: Active Member Role Status Dates Mita Dejuan , VISOR INSTALLER-C Primary Care Provider Active Dr. Senthil Hsieh , Emergency Provider Active Dr. Gil Mcclelland , DO Admit Provider, Attending Pro vider Active Team Status: Active Member Role Status Dates Mita Dejuan , VISOR INSTALLER-C Primary Care Provider Active Dr. Senthil Hsieh , Emergency Provider Active Dr. Gil Mcclelland DO Admit Provider, Other Provide r Active Dr. Markell Humphrey MD Attending Provider, Other Prov ider Active Team Status: Active Member Role Status Dates Mitasravan Zaidi , VISOR INSTALLER-C Primary Care Provider Active Dr. Senthil Hsieh , Emergency Provider Active Dr. Gil Mclcelland , DO Admit Provider, Attending Provider, Other Provider Active Dr. Markell Humphrey MD Other Provider Active Team Status: Inactive Member Role Status Dates Mita Dejuan , VISOR INSTALLER-C Primary Care Provider Active Dr. Senthil Hsieh , DO Emergency Provider Active Dr. iGl Mcclelland , DO Admit Provider, Attending Pro vider Active Dr. Markell Humphrey MD Other Provider Active Team Status: Inactive Member Role Status Dates Mita Dejuan , VISOR INSTALLER-C Primary Care Provider, Referring P rovider Active Dr. Markell Humphrey MD Attending Provider Active Team Status: Inactive Member Role Status Dates Mita Dejuan , VISOR INSTALLER-C Primary Care Provider Active Dr. Tone Ballard MD Attending Provider, Referring Pr ovider Active Dr. Nasim Brothers MD Other Provider Active Dr. Tone Horton DO Other Provider Active Team Status: Active Member Role Status Dates Mita Zaidi , VISOR INSTALLER-C Primary Care Provider Active Dr. Tone Ballard MD Attending Provider, Referring Pr ovider Active Team Status: Inactive Member Role Status Dates Mita Zaidi , VISOR INSTALLER-C Primary Care Provider Active Dr. 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 Relationship Specialty Start Date End Date Mita Zaidi, VISOR INSTALLER [address] [facility] [place] [address] PCP - General Family Medicine 10/13/23 Team Status: Active Member Role Status Dates iMta Zaidi , VISOR INSTALLER-C Primary Care Provider Active Team Status: Inactive Member Role Status Dates Mita Zaidi , VISOR INSTALLER-C Primary Care Provider Active Start: February 25, 2024 End: February 25, 2024 Mita Zaidi , VISOR INSTALLER-C Attending Provider Active St art: February 25, 2024 End: February 25, 2024 Mita Zaidi , VISOR INSTALLER-C Referring Provider Active St art: February 25, 2024 End: February 25, 2024 Team Status: Inactive Member Role Status Dates Mita Zaidi , VISOR INSTALLER-C Primary Care Provider Active Start: April 18, 2024 End: April 18, 2024 Mita Zaidi , VISOR INSTALLER-C Attending Provider Active St art: April 18, 2024 End: April 18, 2024 Mita Zaidi , VISOR INSTALLER-C Referring Provider Active St art: April 18, 2024 End: April 18, 2024 Team Status: Inactive Member Role Status Dates Mita Zaidi , VISOR INSTALLER-C Primary Care Provider Active Start: April 20, 2024 End: April 20, 2024 Mita Zaidi , VISOR INSTALLER-C Referring Provider Active St art: April 20, 2024 End: April 20, 2024 Dr. Yousif Bettencourt MD Attending Provider Active Start: April 20, 2024 End: April 20, 2024 Team Status: Inactive Member Role Status Dates Mita Zaidi , VISOR INSTALLER-C Primary Care Provider Active Start: May 04, 2024 End: May 04, 2024 Dr. Siria Velazquez DO Attending Provider Active Start: May 04, 2024 End: May 04, 2024 Team Status: Inactive Member Role Status Dates Mita Zaidi , VISOR INSTALLER-C Primary Care Provider Active Start: June 07, 2024 End: June 07, 2024 Mita Zaidi , VISOR INSTALLER-C Referring Provider Active St art: June 07, 2024 End: June 07, 2024 Jose Manuel Rocha VISOR INSTALLER, VISOR INSTALLER-C Attending Provider Active S tart: June 07, 2024 End: June 07, 2024 Team Status: Inactive Member Role Status Dates Mita Zaidi VISOR INSTALLER-C Primary Care Provider Active Start: June 08, 2024 End: June 08, 2024 Jose Manuel Rocha VISOR INSTALLER, VISOR INSTALLER-C Attending Provider Active S tart: June 08, 2024 End: June 08, 2024 Jose Manuel Rocha VISOR INSTALLER, VISOR INSTALLER-C Referring Provider Active S tart: June 08, 2024 End: June 08, 2024 Team Status: Active Member Role Status Dates Mita Zaidi , VISOR INSTALLER-C Primary Care Provider Active Start: June 08, 2024 Dr. Senthil Noel MD Attending Provider Active S tart: June 08, 2024 Jose Manuel Rocha VISOR INSTALLER, VISOR INSTALLER-C Referring Provider Active S tart: June 08, 2024 Team Status: Inactive Member Role Status Dates Mita Zaidi , VISOR INSTALLER-C Primary Care Provider Active Start: April 17, 2024 End: April 17, 2024 Mita Zaidi , VISOR INSTALLER-C Attending Provider Active St art: April 17, 2024 End: April 17, 2024 Team Status: Inactive Member Role Status Dates TORO Grimm Attending Provider Active Star t: June 23, 2024 End: June 23, 2024 Jose Manuel Rocha VISOR INSTALLER, VISOR INSTALLER-C Referring Provider Active S tart: June 23, 2024 End: June 23, 2024 Mita Zaidi , VISOR INSTALLER-C Primary Care Provider Active Start: June 23, 2024 End: June 23, 2024 Team Status: Inactive Member Role Status Dates Mita Zaidi , VISOR INSTALLER-C Primary Care Provider Active Start: July 06, 2024 End: July 06, 2024 TORO Grimm Attending Provider Active Star t: July 06, 2024 End: July 06, 2024 TORO Grimm Referring Provider Active Star t: July 06, 2024 End: July 06, 2024 Team Status: Inactive Member Role Status Dates Mita Zaidi VISOR INSTALLER-C Primary Care Provider Active Start: July 13, 2024 End: July 13, 2024 Mita Zaidi VISOR INSTALLER-C Referring Provider Active St art: July 13, 2024 End: July 13, 2024 Dr. Senthil Noel MD Attending Provider Active S tart: July 13, 2024 End: July 13, 2024 Team Status: Active Member Role Status Dates Mita aZidi VISOR INSTALLER-C Primary Care Provider Active Start: August 15, 2024 Dr. Senthil Noel MD Attending Provider Active S tart: August 15, 2024 Dr. Senthil Noel MD Referring Provider Active S tart: August 15, 2024 Dr. Senthil Noel MD Other Provider Active Start : August 15, 2024 Team Status: Inactive Member Role Status Dates Mita Zaidi VISOR INSTALLER-C Primary Care Provider Active Start: August 15, [...] Active Member Role Status Dates Mita Zaidi VISOR INSTALLER-C Primary Care Provider Active Start: August 16, 2024 Dr. Senthil Noel MD Admit Provider Active Start : August 16, 2024 Dr. Senthil Noel MD Referring Provider Active S tart: August 16, 2024 Dr. Senthil Noel MD Other Provider Active Start : August 16, 2024 TORO Grimm Attending Provider Active Star t: August 16, 2024 Team Status: Inactive Member Role Status Dates Mita Zaidi VISOR INSTALLER-C Primary Care Provider Active Start: August 30, 2024 End: August 30, 2024 Mita Zaidi VISOR INSTALLER-C Referring Provider Active St art: August 30, 2024 End: August 30, 2024 TORO Grimm Attending Provider Active Star t: August 30, 2024 End: August 30, 2024 Team Status: Inactive Member Role Status Dates Mita Zaidi , VISOR INSTALLER-C Primary Care Provider Active Start: September 06, 2024 End: September 06, 2024 TORO Grimm Attending Provider Active Star t: September 06, 2024 End: September 06, 2024 TORO Grimm Referring Provider Active Star t: September 06, 2024 End: September 06, 2024 Team Status: Active Member Role Status Dates Mita Zaidi , VISOR INSTALLER-C Primary Care Provider Active Start: September 06, 2024 Dr. Senthil Noel MD Attending Provider Active S tart: September 06, 2024 Team Status: Active Member Role/Relationship Status Dates Mita Zaidi , VISOR INSTALLER-C Primary Care Provider Active Team Status: Inactive Member Role/Relationship Status Dates Mita Zaidi , VISOR INSTALLER-C Primary Care Provider Active Start: June 07, 2024 End: June 07, 2024 Mita Zaidi , VISOR INSTALLER-C Referring Provider Active St art: June 07, 2024 End: June 07, 2024 Jose Manuel Rocha VISOR INSTALLER, VISOR INSTALLER-C Attending Provider Active S tart: June 07, 2024 End: June 07, 2024 Team Status: Inactive Member Role/Relationship Status Dates Mita Zaidi , VISOR INSTALLER-C Primary Care Provider Active Start: June 08, 2024 End: June 08, 2024 Jose Manuel Rocha VISOR INSTALLER, VISOR INSTALLER-C Attending Provider Active S tart: June 08, 2024 End: June 08, 2024 Jose Manuel Rocha VISOR INSTALLER, VISOR INSTALLER-C Referring Provider Active S tart: June 08, 2024 End: June 08, 2024 Team Status: Active Member Role/Relationship Status Dates Mita Zaidi , VISOR INSTALLER-C Primary Care Provider Active Start: June 08, 2024 Dr. Senthil Noel MD Attending Provider Active S tart: June 08, 2024 Jose Manuel Rocha VISOR INSTALLER, VISOR INSTALLER-C Referring Provider Active S tart: June 08, 2024 Team Status: Inactive Member Role/Relationship Status Dates TORO Grimm Attending Provider Active Star t: June 23, 2024 End: June 23, 2024 Jose Manuel Rocha VISOR INSTALLER, VISOR INSTALLER-C Referring Provider Active S tart: June 23, 2024 End: June 23, 2024 Mita Zaidi , VISOR INSTALLER-C Primary Care Provider Active Start: June 23, 2024 End: June 23, 2024 Team Status: Inactive Member Role/Relationship Status Dates Mitasravan Zaidi , VISOR INSTALLER-C Primary Care Provider Active Start: July 06, 2024 End: July 06, 2024 TORO Grimm Attending Provider Active Star t: July 06, 2024 End: July 06, 2024 TORO Grimm Referring Provider Active Star t: July 06, 2024 End: July 06, 2024 Team Status: Inactive Member Role/Relationship Status Dates Mita Dejuan , VISOR INSTALLER-C Primary Care Provider Active Start: July 13, 2024 End: July 13, 2024 Mita Zaidi , VISOR INSTALLER-C Referring Provider Active St art: July 13, 2024 End: July 13, 2024 Dr. Senthil Noel MD Attending Provider Active S tart: July 13, 2024 End: July 13, 2024 Team Status: Active Member Role/Relationship Status Dates Mita Zaidi , VISOR INSTALLER-C Primary Care Provider Active Start: August 15, 2024 Dr. Senthil Noel MD Attending Provider Active S tart: August 15, 2024 Dr. Senthil Noel MD Referring Provider Active S tart: August 15, 2024 Dr. Senthil Noel MD Other Provider Active Start : August 15, 2024 Team Status: Inactive Member Role/Relationship Status Dates Mita Zaidi , VISOR INSTALLER-C Primary Care Provider Active Start: August 15, [...] August 16, 2024 Team Status: Active Member Role/Relationship Status Dates Mita Zaidi , VISOR INSTALLER-C Primary Care Provider Active Start: August 16, 2024 Dr. Senthil Noel MD Admit Provider Active Start : August 16, 2024 Dr. Senthil Noel MD Referring Provider Active S tart: August 16, 2024 Dr. Senthil Noel MD Other Provider Active Start : August 16, 2024 TORO Grimm Attending Provider Active Star t: August 16, 2024 Team Status: Inactive Member Role/Relationship Status Dates Mitasravan Zaidi , VISOR INSTALLER-C Primary Care Provider Active Start: August 30, 2024 End: August 30, 2024 Mita Zaidi , VISOR INSTALLER-C Referring Provider Active St art: August 30, 2024 End: August 30, 2024 TORO Grimm Attending Provider Active Star t: August 30, 2024 End: August 30, 2024 Team Status: Inactive Member Role/Relationship Status Dates Mita Dejuan , VISOR INSTALLER-C Primary Care Provider Active Start: September 06, 2024 End: September 06, 2024 TORO Grimm Attending Provider Active Star t: September 06, 2024 End: September 06, 2024 TORO Grimm Referring Provider Active Star t: September 06, 2024 End: September 06, 2024 Team Status: Active Member Role/Relationship Status Dates Mita Dejuan , VISOR INSTALLER-C Primary Care Provider Active Start: September 06, 2024 Dr. Senthil Noel MD Attending Provider Active S tart: September 06, 2024 TOR[facility] Grimm Referring Provider Active Star t: September 06, 2024 Team Status: Active Member Role/Relationship Status Dates Mitasravan Zaidi , VISOR INSTALLER-C Primary Care Provider Active Start: September 29, 2024 Mita Zaidi , VISOR INSTALLER-C Referring Provider Active St art: September 29, 2024 Dr. Yousif Bettencourt MD Attending Provider Active Start: September 29, 2024 Team Status: Inactive Member Role/Relationship Status Dates Mita Dejuan , VISOR INSTALLER-C Primary Care Provider Active Start: September 29, 2024 End: September 29, 2024 Dr. Eamon Cortez MD Attending Provider Active S tart: September 29, 2024 End: September 29, 2024 Team Status: Inactive Member Role/Relationship Status Dates Mita Dejuan , VISOR INSTALLER-C Primary Care Provider Active Start: September 29, 2024 End: September 29, 2024 Mita Zaidi , VISOR INSTALLER-C Referring Provider Active St art: September 29, 2024 End: September 29, 2024 Dr. Yousif Bettencourt MD Attending Provider Active Start: September 29, 2024 End: September 29, 2024 Team Status: Inactive Member Role/Relationship Status Dates TORO Grimm Attending Provider Active Star t: June 23, 2024 End: June 23, 2024 Jose Manuel Shaw Aj VISOR INSTALLER, VISOR INSTALLER-C Referring Provider Active S tart: June 23, 2024 End: June 23, 2024 Mita Zaidi , VISOR INSTALLER-C Primary Care Provider Active Start: June 23, 2024 End: June 23, 2024 Team Status: Inactive Member Role/Relationship Status Dates Mita Dejuan , VISOR INSTALLER-C Primary Care Provider Active Start: July 06, 2024 End: July 06, 2024 TOR[facility] Grimm Attending Provider Active Star t: July 06, 2024 End: July 06, 2024 TOR[facility] Grimm Referring Provider Active Star t: July 06, 2024 End: July 06, 2024 Team Status: Inactive Member Role/Relationship Status Dates Mita Dejuan , VISOR INSTALLER-C Primary Care Provider Active Start: July 13, 2024 End: July 13, 2024 Mita Zaidi , VISOR INSTALLER-C Referring Provider Active St art: July 13, 2024 End: July 13, 2024 Dr. Senthil Noel MD Attending Provider Active S tart: July 13, 2024 End: July 13, 2024 Team Status: Active Member Role/Relationship Status Dates Mitasravan Zaidi , VISOR INSTALLER-C Primary Care Provider Active Start: August 15, 2024 Dr. Senthil Noel MD Attending Provider Active S tart: August 15, 2024 Dr. Senthil Noel MD Referring Provider Active S tart: August 15, 2024 Dr. Senthil Noel MD Other Provider Active Start : August 15, 2024 Team Status: Inactive Member Role/Relationship Status Dates Mita Zaidi , VISOR INSTALLER-C Primary Care Provider Active Start: August 15, [...] August 16, 2024 Team Status: Active Member Role/Relationship Status Dates Mita Zaidi , VISOR INSTALLER-C Primary Care Provider Active Start: August 16, 2024 Dr. Senthil Noel MD Admit Provider Active Start : August 16, 2024 Dr. Senthil Noel MD Referring Provider Active S tart: August 16, 2024 Dr. Senthil Noel MD Other Provider Active Start : August 16, 2024 TOR[facility] Grimm Attending Provider Active Star t: August 16, 2024 Team Status: Inactive Member Role/Relationship Status Dates Mita Zaidi , VISOR INSTALLER-C Primary Care Provider Active Start: August 30, 2024 End: August 30, 2024 Mita Zaidi VISOR INSTALLER-C Referring Provider Active St art: August 30, 2024 End: August 30, 2024 TORO Grimm Attending Provider Active Star t: August 30, 2024 End: August 30, 2024 Team Status: Inactive Member Role/Relationship Status Dates Mitasravan Zaidi , VISOR INSTALLER-C Primary Care Provider Active Start: September 06, 2024 End: September 06, 2024 TORO Grimm Attending Provider Active Star t: September 06, 2024 End: September 06, 2024 T[facility] Grimm Referring Provider Active Star t: September 06, 2024 End: September 06, 2024 Team Status: Active Member Role/Relationship Status Dates Mitasravan Zaidi , VISOR INSTALLER-C Primary Care Provider Active Start: September 06, 2024 Dr. Senthil Noel MD Attending Provider Active S tart: September 06, 2024 T[facility] Grimm Referring Provider Active Star t: September 06, 2024 Team Status: Inactive Member Role/Relationship Status Dates Mitasravan Zaidi , VISOR INSTALLER-C Primary Care Provider Active Start: September 29, 2024 End: September 29, 2024 Mita Zaidi VISOR INSTALLER-C Referring Provider Active St art: September 29, 2024 End: September 29, 2024 Dr. Yousif Bettencourt MD Attending Provider Active Start: September 29, 2024 End: September 29, 2024 Team Status: Inactive Member Role/Relationship Status Dates Mita Dejuan , VISOR INSTALLER-C Primary Care Provider Active Start: September 29, 2024 End: September 29, 2024 Dr. Eamon Cortez MD Attending Provider Active S tart: September 29, 2024 End: September 29, 2024 Team Status: Inactive Member Role/Relationship Status Dates Mita Dejuan , VISOR INSTALLER-C Primary Care Provider Active Start: October 04, 2024 End: October 04, 2024 Mita Dejuan , VISOR INSTALLER-C Attending Provider Active St art: October 04, 2024 End: October 04, 2024 Mita Zaidi , VISOR INSTALLER-C Referring Provider Active St art: October 04, 2024 End: October 04, 2024 Dr. Markell Humphrey MD Other Provider Active St art: October 04, 2024 End: October 04, 2024 Team Status: Inactive Member Role/Relationship Status Dates Mitasravan Zaidi , VISOR INSTALLER-C Primary Care Provider Active Start: August 30, 2024 End: August 30, 2024 Mita Zaidi VISOR INSTALLER-C Referring Provider Active St art: August 30, 2024 End: August 30, 2024 TORO Grimm Attending Provider Active Star t: August 30, 2024 End: August 30, 2024 Team Status: Inactive Member Role/Relationship Status Dates Mitasravan Zaidi , VISOR INSTALLER-C Primary Care Provider Active Start: September 06, 2024 End: September 06, 2024 TOR[facility] Grimm Attending Provider Active Star t: September 06, 2024 End: September 06, 2024 TOR[facility] Grimm Referring Provider Active Star t: September 06, 2024 End: September 06, 2024 Team Status: Active Member Role/Relationship Status Dates Mita Zaidi , VISOR INSTALLER-C Primary Care Provider Active Start: September 06, 2024 Dr. Senthil Noel MD Attending Provider Active S tart: September 06, 2024 TOR[facility] Grimm Referring Provider Active Star t: September 06, 2024 Team Status: Inactive Member Role/Relationship Status Dates Mita Zaidi , VISOR INSTALLER-C Primary Care Provider Active Start: September 29, 2024 End: September 29, 2024 Mita Zaidi VISOR INSTALLER-C Referring Provider Active St art: September 29, 2024 End: September 29, 2024 Dr. Yousif Bettencourt MD Attending Provider Active Start: September 29, 2024 End: September 29, 2024 Team Status: Inactive Member Role/Relationship Status Dates Mita Dejuan , VISOR INSTALLER-C Primary Care Provider Active Start: September 29, 2024 End: September 29, 2024 Dr. Eamon Cortez MD Attending Provider Active S tart: September 29, 2024 End: September 29, 2024 Team Status: Inactive Member Role/Relationship Status Dates Mita Dejuan , VISOR INSTALLER-C Primary Care Provider Active Start: October 04, 2024 End: October 04, 2024 JOCELINE Morejon Attending Provider Active St art: October 04, 2024 End: October 04, 2024 JOCELINE Morejon Referring Provider Active St art: October 04, 2024 End: October 04, 2024 Dr. Markell Humphrey MD Other Provider Active St art: October 04, 2024 End: October 04, 2024 Team Status: Inactive Member Role/Relationship Status Dates JOCELINE Morejon Primary Care Provider Active Start: December 18, 2024 End: December 18, 2024 JOCELINE Morejon Referring Provider Active St art: December 18, 2024 End: December 18, 2024 Dr. Markell Humphrey MD Attending Provider Active Start: December 18, 2024 End: December 18, 2024 FOR RECORDS PERTAINING TO PATIENTS WHO [...] BE BASED ON THE PRIMARY CLINICAL RECORDS. [facility] [employer] provides no warranty or guarantee of the accuracy or completeness of information in this document.
[2024-12-19 09:30] LABS: Anion Gap 11 (5-15); BUN 25 mg/dL (4-19); BUN/Creat Ratio 18.5 RATIO (10-20); Calcium,Total 9.0 mg/dL (7.6-11.0); Carbon Dioxide 22.0 mmol/L (21.0-32.0); Chloride 106 mmol/L (98-108); Glucose 106 mg/dL (70-99); Potassium 4.5 mmol/L (3.3-5.1)
[2024-12-19 10:07] LABS: PSA,Total- Diagnostic < 0.02 ng/mL (0.00-4.00)
== END | disposition home or self-care (01) ==
LOC: LAB 07:49
PROVIDERS: PCP Nurse Practitioner Family; Referring Provider Nurse Practitioner; Visit Provider Nurse Practitioner
DX: N18.32 Chronic kidney disease, stage 3b (principal); C61 Malignant neoplasm of prostate; E11.42 Type 2 diabetes mellitus with diabetic polyneuropathy
CPT/HCPCS: 36415; 80048; 83036; 84153

== ENCOUNTER → 2024-12-25 | Day surgery (SDC) | payer MEDICARE, OTHER, SELFPAY ==
[2023-08-12 10:42] VITALS: BMI 27.0
--- NOTE | 2024-06-12 12:11 | PAT.ANE_ITS ---
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 When Was Last Pacemaker Check QUESTION #4 FULL TEXT: You/Your Family Experience fever (hyperthermia) with Anesthesia Last Oral Intake Last Oral intake: Last Oral Intake NPO since Meds taken in AM with sips of water? Meds patient instructed to take am of surgery PONV PONV - photographic artist: PONV - photographic artist Female No 06/12/24 11:05 HX of Motion Sickness No 06/12/24 11:05 HX of N/V After Surgery No 06/12/24 11:05 Non-Smoker Yes 06/12/24 11:05 Duration of Surgery greater Yes 06/12/24 11:05 than 60 minutes Number of Risk Factors 2 06/12/24 11:05 PONV Score Moderate Risk 06/12/24 11:05 Height & Weight Height & Weight: Anesthesia: Height & Weight Height 5 ft 9 in 02/04/24 14:47 Respiratory Assessment Respiratory Assessment - photographic artist: Respiratory Tract Infection Hx - photographic artist Hx Respiratory Tract Infection No 06/12/24 11:05 STOP Sleep Apnea STOP Sleep Apnea - photographic artist: STOP Sleep Apnea - photographic artist Hx Hypertension Yes: CONTROLLED ON MED 06/12/24 11:05 Hx Sleep Apnea Yes 06/12/24 11:05 CPAP Yes 06/12/24 11:05 BIPAP No 06/12/24 11:05 Do you snore loudly (louder than talking or can be heard Do you often feel tired/ fatigued/ sleepy during daytime? Has anyone observed you stop breathing during sleep? STOP Results Positive 06/12/24 11:05 QUESTION #5 FULL TEXT : Do you snore loudly (louder than talking or can be heard through closed doors)? 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 Specify any problems Hx of Preganancy in last 3 N/A 06/12/24 11:05 Months Nurse Filling Out Transfusion VCHRISTIN 06/12/24 11:05 & Questions: Date: 06/12/24 06/12/24 11:05 Time: 11:06 06/12/24 11:05 Patient unable to answer at this time (ie. confused, unrespo /Reproduction History /Reproductive History - photographic artist: /Reproductive Hx- photographic artist Hx Now No 06/12/24 11:05 Gestational Age (in weeks): EDC: Hx Hx Para Hx Section SAB No 06/12/24 11:05 [facility] Medical History (Updated 06/12/24 @ 11:05 by Kathy Beverly) Open wound Thyroid disease Kidney stones Anemia Easy bruising Excessive bleeding CPAP (continuous positive airway pressure) dependence Sleep apnea History of pain when walking History of echocardiogram Cardiology follow-up encounter History of heart attack Preop cardiovascular exam SVT (supraventricular tachycardia) Supraventricular tachycardia Transient complete heart block Loss of hearing Wears glasses Cancer History of renal disease High cholesterol Dietary restriction Difficulty swallowing Non-smoker Neuropathy BPH (benign prostatic hyperplasia) Cholecystitis Hypothyroid Diabetes mellitus Leg cramping Sleep apnea treated with continuous positive airway pressure (CPAP) Hypertension Home Medications ?Medication ?Instructions ?Recorded ?Last Taken ?Type mdosfgek-ted-rlklk acid 0.4 1 ea PO DAILY SUPPLEMENT' 01/08/13 05/18/23 History mg-lycopene 300 mcg-lutein 250 mcg tablet (Centrum Silver) potassium citrate 10 mEq (1,080 1,080 mg PO DAILY SUPP LEMENT 05/24/15 05/18/23 History mg) tablet,extended release (Urocit-K 10) fenofibrate nanocrystallized 145 145 mg PO DAILY DANIEL STEROL 10/19/17 05/18/23 History mg tablet ezetimibe 10 mg tablet 10 mg PO DAILY cholesterol 0 12/06/22 05/18/23 History vit C 250 mg-vit E 90 mg-zinc 40 1 tab PO BID eye heal th 12/06/22 05/18/23 History mg-copper 1 gv-oivnuc-gwgybh capsule (PreserVision AREDS-2) losartan 100 mg tablet 100 mg PO DAILY blood pressu re 04/10/23 05/18/23 History aspirin 81 mg tablet,delayed 81 mg PO DAILYCM heart he alth 04/13/23 05/18/23 Rx release days #90 tabs clopidogrel 75 mg tablet 75 mg PO DAILY anti platelet #90 04/13/23 05/18/23 Rx tabs glipizide 5 mg tablet 5 mg PO DINNER diabetes 04/0605/17/23 History THERAWORX See Rx Instructions .Route . COMPLEX 05/18/23 Unknown History levothyroxine 100 mcg tablet 100 mcg PO DAILY thyroid 05/18/23 05/18/23 History metformin 1,000 mg tablet 1,000 mg PO BID DIABETES 05/18/23 History metoprolol tartrate 25 mg tablet 25 mg PO BID #180 tab s 06/07/23 Unknown Rx pravastatin 20 mg tablet 20 mg PO QHS #90 tabs Unknown Rx Allergy/AdvReac Type Severity Reaction Status Date / Time Arvglpd-LTP-WyU Reductase AdvReac leg cramps Verified 06/12/24 10:41 Inhibitor (Somqpwn-Mxv-Zzp Reductase Inhibitor) Surgical History (Updated 06/12/24 @ 11:05 by Kathy Beverly) Hx of cystoscopy History of coronary artery stent placement Hx of colonoscopy Stented coronary artery (~04/10/23) Hx of cardiac catheterization (~04/10/23) Hx of total knee replacement Hx of colonoscopy S/P laparoscopic cholecystectomy History of tonsillectomy and adenoidectomy H/O prostatectomy Social History (Updated 06/07/24 @ 09:46 by Sonja Rose) household members: spouse current occupational status: retired Smoking Status: Never smoker alcohol intake: never substance use type: does not use caffeine: No Audit: Pertinent Findings Pertinent Findings EKG Perinent findings: 06/07/2024 sinus rhythm first-degree AV block. Echo (EF%) pertinent findings: 04/12/2023. EF 55% mild LVH. Consult pertinent findings: Cardiology 06/07/2024. Coronary artery disease. Chronic. Stenting right coronary artery April 2023. Stable. SVT. Chronic. Continue metoprolol. Hypertension chronic. Stable. Preoperative cardiovascular exam. EKG on 06/07/2024 shows T wave inversion in lead to 3 aVF similar to previous. Recommend carotid duplex ultrasound prior to surgery. Additional pertinent findings: Carotid duplex 06/08/2024. Severe greater than 70% stenosis right extracranial internal carotid. Mild less than 50% stenosis left extracranial internal carotid artery. Patent vertebrals bilaterally. Recommendation Anesthesia Recommendation Anesthesia recommendation: OPTIMIZED for anesthesia
[2024-06-12 13:30] LABS: Hematocrit 36.1 % (40-54); Hemoglobin 12.1 g/dL (13.0-16.5); Immature Granulocytes Count 0.030 X10^3/uL (0.0-0.0); Mean Corp Hgb Conc 33.5 g/dL (32-36); Mean Corpuscular Volume 88.5 fL (80-94); Mean Platelet Vol. 10.7 fl (6.2-12.0); NRBC Flagged by Analyzer 0 % (0-5); Platelet Count 247 K/mm3 (150-450); RBC Distribution Width CV 13.3 % (11.6-14.6); RBC Distribution Width SD 43.3 fl (35.1-43.9); Red Blood Count 4.08 M/mm3 (4.6-6.2); White Blood Count 6.1 K/mm3 (4.4-11.0)
[2024-06-12 14:17] LABS: Magnesium 2.2 mg/dL (1.5-2.2)
[2024-06-12 15:15] LABS: HIV Nonreactive (Nonreactive); Hepatitis C Antibody Nonreactive (Nonreactive)
== END | disposition home or self-care (01) ==
LOC: SDC 13:33
PROVIDERS: Anesthesiology; PCP Nurse Practitioner Family; Visit Provider Orthopaedic Surgery Orthopaedic Surgery of the Spine
DX: Z01.818 Encounter for other preprocedural examination (principal); E78.00 Pure hypercholesterolemia, unspecified; E03.9 Hypothyroidism, unspecified; I10 Essential (primary) hypertension; I25.10 Atherosclerotic heart disease of native coronary artery without angina pectoris; Z53.09 Procedure and treatment not carried out because of other contraindication
CPT/HCPCS: 83036; 83735; 84443; 85025; 86703; 86706; 86708; 86803; 86850; 86900; 86901; 87077; 87081

== ENCOUNTER → 2025-03-14 | Outpatient (CLI) | payer MEDICARE, OTHER, SELFPAY ==
[2023-08-12 10:42] VITALS: BMI 27.0
--- NOTE | 2025-03-14 08:43 | CDU_ITS ---
Reason For Study Reason For Study: S/P Rt ICA TCAR Rt. Velocities/BP Lt. Velocities/BP Prox CCA 57.0/8.8 cm/sec. Prox CCA 85.1/21.2 cm/sec. Mid CCA 69.6/11.3 cm/sec. Mid CCA 63.0/16.3 cm/sec. Dist CCA, Prox Stent, 56.4/9.1 cm/s. Dist CCA 71.6/13.9 cm/sec. Bulb, Mid Stent, 66.3/15.7 cm/s. Prox ICA 40.4/14.2 cm/sec. Prox ICA, Dist Stent, 58.6/12.4 cm/s. Mid ICA 101.9/32.1 cm/sec. Mid ICA 64.9/22.1 cm/sec. Dist ICA 106.0/37.2 cm/sec. Dist ICA 60.8/20.1 cm/sec. Lt. ICA/CCA = 1.7. Rt. ICA/CCA = 0.9. Prox ECA 122.9/13.3 cm/sec. Prox ECA 171.8/11.1 cm/sec. Lt. Vert. 60.5/16.3 cm/sec. Rt. Vert. 38.4/9.0 cm/sec. Right Extracranial There is intimal thickening but no significant atherosclerotic plaque noted in the right common carotid artery. There is heterogeneous, irregular atherosclerotic plaque noted in the right internal carotid artery. There is intimal thickening but no significant atherosclerotic plaque noted in the right external carotid artery. Antegrade flow is noted in the right vertebral artery. Left Extracranial There is heterogeneous, irregular atherosclerotic plaque noted in the left common carotid artery. There is heterogeneous, irregular atherosclerotic plaque noted in the left internal carotid artery. There is intimal thickening but no significant atherosclerotic plaque noted in the left external carotid artery. Antegrade flow is noted in the left vertebral artery. Procedure Carotid Duplex [id number]. This is a Carotid Duplex examination using B-mode, color flow and specral Doppler. Exam performed in department. VL/Carotid Duplex Ultrasound Interpretation Summary Mild (<50%) stenosis right extracranial internal carotid. Mild (<50%) stenosis left extracranial internal carotid. Patent and antegrade vertebrals bilaterally. Ordering Physician: Pauly Mathews Referring Physician: Pauly Mathews Performed By: Elena Anderson RVT
== END | disposition home or self-care (01) ==
LOC: CVS 08:41
PROVIDERS: PCP Nurse Practitioner Family; Referring Provider Physician Assistant; Visit Provider Physician Assistant
DX: Z48.812 Encounter for surgical aftercare following surgery on the circulatory system (principal); I77.9 Disorder of arteries and arterioles, unspecified; I65.21 Occlusion and stenosis of right carotid artery
CPT/HCPCS: 93880